=== PATIENT | male | born 1965 | race Caucasian/White ===

== ENCOUNTER 2016-06-22 17:50 | Inpatient (IN) | payer MEDICARE, BC ==
--- NOTE | 2016-06-22 19:22 | ED Physician Chart ---
Chief Complaint/HPI - Patient Information Date Seen:: 06/22/16 Time Seen:: 19:17 Chief Complaint:: cellulitis History of Present Illness:: THIS IS A LIVER AND RENAL FAILURE OBESE 51 YR OLD MALE SENT HERE FOR EVALUATION AND TREATMENT. HE IS MORBIDLY OBESE WITH SEVERE REDNESS AND SWELLING OF BOTH LOWER EXTREMITIES. HE IS ALSO A DIALYSIS PATIENT WITH A HISTORY OF HEP C, LIVER DISEASE AND SLEEP APNEA. Allergies:: Allergies Allergy/AdvReac Type Severity Reaction Status Date / Time ADHESIVE TAPE Allergy Uncoded 06/22/16 19:06 Historian:: Patient, Medical Records Review:: Nurse's Note Reviewed Review of Systems - Review of Systems General/Constitutional: No fever, No chills, No weight loss, No weakness, No diaphoresis, Edema, No loss of appetite, Other (OBESE) Skin: Skin lesions (CELLULITIS), No rash, No bruising Head: No headache, No light-headedness Eyes: No loss of vision, No pain, No diplopia ENT: No earache, No nasal drainage, No sore throat, No tinnitus Neck: No neck pain, No swelling, No thyromegaly, No stiffness, No mass noted Cardio Vascular: No chest pain, No palpitations, PND, orthopnea, edema Pulmonary: No SOB, No cough, No sputum, No wheezing GI: No nausea, No vomiting, No diarrhea, Pain, No melena, No hematochezia, No constipation, No hematemesis G/U: No dysuria, No frequency, No hematuria Musculoskeletal: Bone or joint pain, Back pain, No muscle pain Endocrine: No polyuria, No polydipsia Psychiatric: No prior psych history, No depression, No anxiety, No suicidal ideation Hematopoietic: No bruising, No lymphadenopathy Allergic/Immuno: No urticaria, No angioedema Neurological: No syncope, No focal symptoms, No weakness, No paresthesia, No headache, No seizure, No dizziness, No confusion, No vertigo Past Medical History - Past Medical History Obtainable: Yes Past Medical History: HTN, CHF, ESRD, Arthritis, Other (OBESITY) Family History: None Social History: Non Smoker, No Alcohol, No Drug Use, Care Facility Surgical History: other ([employer]ACEMENT) Psychiatricy History: Depression Physical Exam - Physical Examination General/Constitutional: Awake, Well-developed, well-nourished, Alert, No distress, GCS 15, Non-toxic appearing, Ambulatory Other Gen/Cons comments:: SEVERELY OBESE AND PALE Head: Atraumatic Eyes: Lids, conjuctiva normal, PERRL, EOMI Skin: Nl inspection, No rash, No skin lesions, No ecchymosis, Well hydrated, No lymphadenopathy ENMT: External ears, nose nl, Nasal exam nl, Lips, teeth, gums nl Neck: Nontender, Full ROM w/o pain, No JVD, No nuchal rigidity, No bruit, No mass, No stridor Respiratory: Nl effort/Exclusion, Clear to Auscultation, No Wheeze/Rhonchi/Rales Cardio Vascular: RRR, No murmur, gallop, rubs, NL S1 S2 GI: No tenderness/rebounding/guarding, No organomegaly, No hernia, Normal BS's, No mass/bruits, No McBurney tenderness Other GI comments:: VERY LARGE AND DISTENDED ABDOMEN. : No CVA tenderness Extremities: Full ROM, normal strength in all extremities, Normal digits & nails Other Extremities comments:: BOTH LOWER EXTREMITIES ARE RED WITH FOUR PLUS EDEMA AND WARM WITH TENDERNESS ON TOUCH. Neuro/Psych: Alert/oriented, DTR's symmetric, Normal sensory exam, Normal motor strength, Judgement/insight normal, Mood normal, Normal gait, No focal deficits Misc: normal gait, Normal back, No paraspinal tenderness Labs/Radiology/EKG Results - Lab Results Results: Abnormal Lab Results 06/22/16 06/22/16 06/22/16 19:33 19:33 19:33 WBC 4.7 L RBC 2.60 L Hgb 7.4 L* Hct 22.3 L* MCV 85.7 MCH 28.5 MCHC Differential 33.2 RDW 16.1 Plt Count 124 L MPV 8.9 PT 11.9 H INR 1.19 PTT (Actin FS) 31.5 Sodium 131 L Potassium 3.5 Chloride 98 Carbon Dioxide 22.6 Anion Gap 13.9 BUN 54 H Creatinine 3.3 H Est GFR ( Amer) 25.8 Est GFR (Non-Af Amer) 21.3 BUN/Creatinine Ratio 16.4 Glucose 107 H Calcium 10.0 Total Bilirubin 1.1 H AST 32 ALT 14 Alkaline Phosphatase 28 L Troponin I B-Natriuretic Peptide Total Protein 8.6 H Albumin 3.2 L Globulin 5.4 Albumin/Globulin Ratio 0.6 L 06/22/16 06/22/16 19:33 19:33 WBC RBC Hgb Hct MCV MCH MCHC Differential RDW Plt Count MPV PT INR PTT (Actin FS) Sodium Potassium Chloride Carbon Dioxide Anion Gap BUN Creatinine Est GFR ( Amer) Est GFR (Non-Af Amer) BUN/Creatinine Ratio Glucose Calcium Total Bilirubin AST ALT Alkaline Phosphatase Troponin I < 0.01 L B-Natriuretic Peptide 668.0 H Total Protein Albumin Globulin Albumin/Globulin Ratio - Radiology Results Results: chest x-ray = no acute disease seen - EKG Interpretations EKG Time:: 19:45 Rhythm: A FIB SLOW [place]: RIGHT Rate: 91 ED Septic Shock - . Is Septic Shock (SBP<90, OR Lactate>4 mmol\L) present?: No Reassessment (Disposition) - Reassessment Reassessment Condition:: Unchanged - Diagnosis Diagnosis:: SEVERE ANEMIA MORBIDLY OBESE ESRD LIVER FAILURE INFECTION OF BOTH LOWER EXTREMITIES. - Patient Disposition Discharge/Transfer:: Acute Care w/in this hosp Admitting Medical Physician:: Vladimir Valadez Condition at Disposition:: Unchanged
[2016-06-22 19:41] LABS: MEAN CELL VOLUME 85.7 fl (80-99); MEAN CORPUSCULAR HEMOGLOBIN 28.5 pg (26.0-30.0); MEAN CORPUSCULAR HGB CONC 33.2 pg (28.0-36.0); MEAN PLATELET VOLUME 8.9 fl; PLATELET COUNT 124 Th/cmm (150-400); RED CELL DISTRIBUTION WIDTH 16.1 % (11.5-20.0); WHITE BLOOD COUNT 4.7 Th/cmm (4.8-10.8)
[2016-06-22 19:51] LABS: HEMATOCRIT 22.3 % (39.0-49.0); HEMOGLOBIN 7.4 gm/dL (13.2-17.3)
[2016-06-22 19:52] LABS: INR 1.19 (0.5-1.4); PROTHROMBIN TIME (TEST) 11.9 SECONDS (9.5-11.5)
[2016-06-22 19:56] LABS: ALB/GLOB RATIO 0.6 (1.0-1.8); ANION GAP 13.9 (7.0-16.0); BILIRUBIN,TOTAL 1.1 mg/dL (0.3-1.0); BUN/CREATININE RATIO 16.4; CARBON DIOXIDE 22.6 mEq/L (21.0-31.0); CREATININE - SERUM 3.3 mg/dL (0.7-1.3); POTASSIUM SERUM 3.5 mEq/L (3.5-5.1)
[2016-06-22 20:13] LABS: ANISOCYTOSIS 1+; BAND NEUTROPHILE 1 % (0-10); BASOPHIL 4 % (0-3); EOSINOPHIL 10 % (0-5); HYPOCHROMIA 1+; NEUTROPHILS 68 % (40-80); PLATELET ESTIMATE DECREASED PLATELETS (NORMAL); PLATELET MORPHOLOGY NORMAL (NORMAL); TOTAL CELLS COUNTED 100
[2016-06-22 22:20] LABS: BE(B) 2.8 mmol/L (-3.0-3.0); HCO3 25.9 mmol/L (20.0-26.0); pH 7.49 (7.35-7.45)
[2016-06-22 22:21] LABS: ABG SOURCE art; ALLEN TEST P; FIO2 21
--- NOTE | 2016-06-23 06:32 | Consultation ---
Consult Note - Consult Note Service Date: 06/23/16 Consult Note: PHYSICIAN Consultation Note: Date of Admission: 06/22/16 Purpose of Consultation: Cellulitis. Chief Complaint: redness of both legs. History of Present Illness: Patient WAL[facility] with ANEMIA,ESRD, INFECTION BILATERAL LOWER EXTREMITIES. 51 y male with history of cirrhosis, CKD 5 on HD, recent UTI and cellulitis of legs recently discharged from [facility]. He was brought to the ED within 24 hrs for evaluation of redness of the legs. On initial evaluation, he was afebrile and WBC count was 4,700. ID consult was called for further antibiotic management. Allergies Allergy/AdvReac Type Severity Reaction Status Date / Time ADHESIVE TAPE Allergy Uncoded 06/22/16 19:06 Vital Signs Temp 98.4 F 06/23/16 04:00 Pulse 102 06/23/16 04:00 Resp 19 06/23/16 04:00 BP 98/62 06/23/16 04:00 Pulse Ox 98 06/23/16 04:00 Intake & Output 06/22/16 06/22/16 06/23/16 06:59 18:59 06:59 Intake Total 300 Balance 300 Intake: Oral 300 Home Medication Medication Instructions Recorded Type Acetaminophen [Tylenol] 325 mg PO Q6HR PRN 06/23/16 History Apixaban [Eliquis] 5 mg PO BID 06/23/16 History Cholecalciferol (Vit D3) [Vitamin 2,000 iu PO DAILY 06/23/16 History D3] Darbepoetin Bernardino in Polysorbat 0.04 mg SQ QWED 06/23/16 History [Aranesp] Docusate Sodium [Colace] 100 mg PO Q12HR 06/23/16 History Hydrocodone/APAP 10 mg/325 mg 1 tab PO Q8H PRN 06/23/16 History [Almond 10 mg/325 mg] Ipratropium Upson [Atrovent Hfa] 2 puff IH Q2HR PRN 06/23/16 History Lactulose 20 gm PO Q8HR 06/23/16 History Levothyroxine [Synthroid] 0.05 mg PO QDAC 06/23/16 History Morphine Sulfate [Morphine] 3 mg IV Q4HR PRN 06/23/16 History Ondansetron [Zofran ODT] 4 mg PO Q6HR PRN 06/23/16 History Pantoprazole [Protonix] 40 mg PO DAILY 06/23/16 History Vitamin B Complex & Vit C No.3 1 tab PO DAILY 06/23/16 History [Pharmassure Balanced B Complex] Current Medications Generic Name Dose Route Start Last Admin Trade Name Freq PRN Reason Stop Dose Admin Morphine Sulfate 1 mg 06/23/16 04:41 06/23/16 04:52 Morphine IV 08/22/16 04:40 1 mg Q4H PRN Administration SEVERE PAIN Review of Systems: A 12 point ROS was reviewed with the pertinent positive and negatives noted in the HPI. Past Medical History Hx Renal Disease Yes Depression No Anxiety No Social History Smoking Status Never smoker Family Medical History Physical Exam: General: Obese, No Acute Distress HEENT: EOMI Bilaterally, PERRLA Bilaterally, Head is normocephalic, atraumatic on inspection. Oral cavity is moist. Neck: Supple, no JVD. No use of accessory neck muscles. Heart: +S1/S2 Auscultated, RRR, no murmurs/rubs/gallops noted Chest: Clear to Auscultate Bilaterally. Permacath on R upper chest. Abdominal: Soft, Nondistended, Non-tender to palpation x 4 quadrants Extremities: No Edema noted in the lower extremities, Discoloration and mild erythema of the legs. Neurological: Alert and Oriented x3, Cranial Nerves II-XII intact bilaterally, Gait Steady, No Focal Deficits noted. Assessment/Plan: 1. Cellulitis of legs. 2. Lymphedema of legs. 3. CKD 5 on HD. 4. HTN. 5. Anemia of chronic disease. 6. Cirrhosis. 7. Stasis changes in legs. 8. Chronic pain syndrome. Recommendations: Skin care. Abx vanco IV. Signed, Hollis Austin M.D. [id number]
--- NOTE | 2016-06-23 10:42 | Diagnostic Imaging Report ---
Portable chest x-ray HISTORY: Congestive heart failure The heart is enlarged. Elevation of the right hemidiaphragm. No hilar or mediastinal abnormalities. Faint radiodensities noted in the right lower lobe suggesting scarring. A vascular catheter tip is in the region of the superior vena cava near the junction with the right atrium. IMPRESSION: 1. Cardiomegaly 2. Faint linear densities right lower lobe consistent with scarring or subsegmental atelectasis 3. Elevation of the right hemidiaphragm
[2016-06-23 11:48] LABS: RED BLOOD COUNT 2.16 Mil/cmm (4.30-5.70)
[2016-06-23 11:50] LABS: MEAN CELL VOLUME 85.8 fl (80-99); MEAN CORPUSCULAR HEMOGLOBIN 28.6 pg (26.0-30.0); MEAN CORPUSCULAR HGB CONC 33.3 pg (28.0-36.0); PLATELET COUNT 110 Th/cmm (150-400); RED CELL DISTRIBUTION WIDTH 16.2 % (11.5-20.0); WHITE BLOOD COUNT 3.6 Th/cmm (4.8-10.8)
[2016-06-23 12:07] LABS: ALB/GLOB RATIO 0.6 (1.0-1.8); ANION GAP 14.4 (7.0-16.0); BUN/CREATININE RATIO 15.3; CALCIUM SERUM 9.8 mg/dL (8.6-10.3); CARBON DIOXIDE 23.3 mEq/L (21.0-31.0); MAGNESIUM 2.1 mg/dL (1.9-2.7); PHOSPHOROUS 5.1 mg/dL (2.5-5.0); POTASSIUM SERUM 3.7 mEq/L (3.5-5.1)
[2016-06-23 12:51] LABS: HEMATOCRIT 18.6 % (39.0-49.0)
[2016-06-23 12:52] LABS: HEMOGLOBIN 6.2 gm/dL (13.2-17.3)
[2016-06-23 12:55] LABS: BAND NEUTROPHILE 6 % (0-10); BASOPHIL 7 % (0-3); EOSINOPHIL 5 % (0-5); NEUTROPHILS 57 % (40-80); PLATELET MORPHOLOGY NORMAL (NORMAL); TOTAL CELLS COUNTED 100
[2016-06-23 12:56] LABS: ANISOCYTOSIS 1+; PLATELET ESTIMATE ADEQUATE (NORMAL)
[2016-06-23] MEDS: Epoetin Alfa 20000 Units/mL Vial SUBQ SCH (18:38)
[2016-06-23] MEDS ORDERED: Albuterol/Ipratropium Neb 3 ML AERS HHN PRN (20:31)
[2016-06-23] MEDS ORDERED: DARBEPOETIN ALFA IN POLYSORBAT SQ SCH (20:45)
--- NOTE | 2016-06-24 00:21 | History & Physical ---
HISTORY OF PRESENT ILLNESS: This patient is very well known to me from following him myself at [facility]. The patient is know to have history of peripheral vascular disease, history of ESRD, history of anemia, history of bilateral lower extremity, cellulitis, and the patient recently was discharged from [facility], made arrangement for a dialysis, [facility] Apparently, they found out that no arrangements were made. The patient was complaining of severe bilateral lower leg pain and swelling. The patient was sent to [facility] where the ER doctor saw him and felt that the patient has swelling above the legs with cellulitis and even a possible sepsis. He was admitted for a possible sepsis. PHYSICAL EXAMINATION: VITAL SIGNS: Temperature 98.4, pulse of 102, respirations 19, blood pressure on the lower side 98/62. MEDICATIONS: The patient was on multiple mediations. See the reconciliation sheet. The patient is on Eliquis and the patient is on ipratropium, levothyroxine, and several other medications. REVIEW OF SYSTEMS: Essentially, complaining of shortness of breath, complaining of bilateral leg swelling, and bilateral leg edema. Other than that, he is normal. PAST MEDICAL HISTORY: ESRD. FAMILY HISTORY: Unremarkable. PHYSICAL EXAMINATION: GENERAL: The patient is very obese. Still feels short of breath. HEENT: Normal. NECK: Supple. Nontender. LUNGS: Clear. CARDIOVASCULAR: S1 and S2 heard. ADOMEN: Soft. Bowel sounds are heard. 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 EXTREMITIES: Bilateral extremity, bilateral leg swelling with discoloration, mild erythema. DIAGNOSES: 1. Bilateral leg cellulitis. 2. Lymphedema of the legs. 3. History of severe obesity. 4. End-stage renal disease, on hemodialysis. 5. History of hypertension. 6. History of anemia. 7. History of cirrhosis. 8. Chronic stasis changes. 9. Chronic pain syndrome. The patient is being admitted. I will follow the patient. The patient was given antibiotics and I will have Dr. Horne see the patient for Nephrology and I will have Dr. Austin see the patient for ID consult. I will follow the patient. JOB# [id number]
[2016-06-24] MEDS: Levothyroxine 0.05 Mg Tab PO SCH (06:44)
[2016-06-24 07:50] LABS: MEAN CORPUSCULAR HEMOGLOBIN 29.5 pg (26.0-30.0); MEAN CORPUSCULAR HGB CONC 33.9 pg (28.0-36.0); PLATELET COUNT 118 Th/cmm (150-400); RED BLOOD COUNT 2.54 Mil/cmm (4.30-5.70); RED CELL DISTRIBUTION WIDTH 16.7 % (11.5-20.0)
[2016-06-24 08:12] LABS: HEMATOCRIT 22.1 % (39.0-49.0); WHITE BLOOD COUNT 4.7 Th/cmm (4.8-10.8)
[2016-06-24] MEDS ORDERED: [UNRECOGNIZED DRUG - OTHER] PO SCH (09:00)
[2016-06-24] MEDS ORDERED: Non-Formulary Item 1 EA (Apixaban [Eliquis] 5 MG) PO SCH (09:00)
[2016-06-24] MEDS ORDERED: VIT C NO 3 PO SCH (09:00)
[2016-06-24] MEDS ORDERED: VITAMIN B COMPLEX PO SCH (09:00)
[2016-06-24 09:05] LABS: BAND NEUTROPHILE 2 % (0-10); TOTAL CELLS COUNTED 100
[2016-06-24 09:06] LABS: NEUTROPHILS 72 % (40-80); PLATELET ESTIMATE DECREASED PLATELETS (NORMAL)
--- NOTE | 2016-06-24 09:34 | Diagnostic Imaging Report ---
Ultrasound urinary bladder HISTORY: Urinary retention Exam is extremely limited due to patient combativeness lack of cooperation. Limited views of the urinary bladder do not demonstrate significant distention (prevoid volume equals approximately 10 3 mL). No obvious abnormal masses or fluid collections seen in the pelvis. IMPRESSION: 1. Very limited exam 2. No definite evidence of abnormal urinary bladder distention
[2016-06-24] MEDS: Pantoprazole 40 mg EC Tab PO SCH (10:00)
[2016-06-24] MEDS: Vitamin B Complex w/Vitamin C Tab PO SCH (10:00)
--- NOTE | 2016-06-24 12:43 | Consultation ---
ATTENDING PHYSICIAN: Brett Valadez M.D. CRIMINAL JUSTICE TEACHER: Jose C Horne M.D. REASON FOR CONSULTATION: Electrolyte imbalance and fluid management. HISTORY OF PRESENT ILLNESS: This is a 51-year-old male with past medical history of end-stage renal disease on hemodialysis, who came in because of bilateral lower extremity erythema. The patient was admitted at [facility] for long-term acute care of his bilateral lower extremity cellulitis. He received vancomycin. He was also dialyzed accordingly. He was then transported to [facility] Emergency Room for further evaluation of bilateral lower extremity cellulitis. He was admitted for further management of this. His temperature was 98.4 with a white count 4700. PAST MEDICAL HISTORY: 1. End-stage renal disease, on hemodialysis. 2. Morbid obesity. 3. Essential hypertension. 4. Obesity hypoventilation syndrome based on combination of morbid obesity with obstructive sleep anemia. 5. Chronic atrial fibrillation. 6. Hypothyroidism. 7. Anasarca. 8. Chronic venous stasis dermatitis. 9. Lymphedema. MEDICATIONS: He has morphine, vancomycin, and Rocephin. ALLERGIES: ADHESIVE TAPE. SOCIAL HISTORY: No history of alcohol or tobacco use. FAMILY HISTORY: Noncontributory to present illness. REVIEW OF SYSTEMS: CONSTITUTIONAL: The patient did complain of weakness. Appetite had been fair. No fever, no chills. HEENT: No mention of headaches, no dizziness. CARDIORESPIRATORY: He has a history of hypertension, chronic atrial fibrillation. At this point, no shortness of breath, chest pain, palpitations, diaphoresis or cough. GASTROINTESTINAL: No nausea and vomiting, abdominal pain or cramping, hematemesis, melena, hematochezia, no diarrhea. ENDOCRINE: History of hypothyroidism, no diabetes or dyslipidemia. MUSCULOSKELETAL: Multiple joint arthralgias. GENITOURINARY: The patient has a history of kidney failure on hemodialysis. He rarely urinates. If he does, no dysuria or hematuria. HEMATOLOGIC: He has severe anemia. MUSCULOSKELETAL: Multiple joint arthralgias. NEUROPSYCHIATRIC: No syncopal episode or seizure activity. However, he is quite stuporous at the present time. PHYSICAL EXAMINATION: GENERAL: As mentioned, the patient is stuporous, arousable, but falls back to sleep. VITAL SIGNS: His temperature is 97.8 degrees, pulse is 113, blood pressure 107/63. SKIN: Good turgor, warm. He has severe hyperpigmentation distal to both bilateral knees with chronic skin changes. HEENT: Head, normocephalic, atraumatic. Eyes: Unable to assess his extraocular muscles as well as pupils because the patient was not cooperative. Nose: Midline nasal septum. Mouth: Dry mucosa with poor dentition. NECK: Supple. No adenopathy, no thyromegaly, no bruits. Trachea palpated in the midline. CHEST AND CARDIOVASCULAR: Distant heart sounds, S1, S2. No rub, murmur nor gallop appreciated. Point of maximal impulse, unable to assess due to patient's signs. LUNGS: Equal expansion. No use of accessory muscles. No supraclavicular retractions, scattered rhonchi, but no rales nor wheezes appreciated. ABDOMEN: Obese, soft, positive for bowel sounds. No bruits either diastolic or systolic. RECTAL: Unable to perform due to patient's size and being uncooperative. GENITOURINARY: Normal appearing male genitalia. MUSCULOSKELETAL: No effusions present in his joints, but unable to assess his range of motion. EXTREMITIES: He has +3 bipedal edema with as mentioned severe hyperpigmentation distal to both knees and also chronic changes of the skin. NEUROLOGIC: The patient is stuporous at the present time, so he was not able to follow my neuro commands and unable to pursue further my neuro exam. LABORATORY DATA: Sodium is 132, potassium 3.7, chloride 98, bicarbonate 23, BUN 61, creatinine 4, glucose 92, calcium 9.8, phosphorus 5.1, magnesium 2.1. Albumin 2.9. Troponin less than 0.01. White count 3.6, hemoglobin 6.2, hematocrit 18.6, polys ____, platelets 110. IMPRESSION: 1. End-stage renal disease, on hemodialysis. 2. Persistent cellulitis involving bilateral lower extremities. 3. Acute on chronic anemia, possible gastrointestinal bleed. 4. Morbid obesity. 5. Essential hypertension with chronic kidney disease. 6. Obesity hypoventilation syndrome. 7. Chronic atrial fibrillation. 8. Hypothyroidism. 9. Anasarca. 10. Chronic venous stasis dermatitis. 11. Lymphedema. 12. Severe malnutrition. PLAN: 1. Hemodialysis today, transfuse 2 units. 2. Stool for occult blood. 3. Restart the patient on Epogen. 4. Follow up cultures. Thank you, Dr. Valadez for this consult. We will follow the patient closely with you. JOB# [id number]
--- NOTE | 2016-06-24 18:26 | General Progress Note ---
Subjective - Review of Systems Service Date: 06/24/16 Objective - Results Result Diagrams: 06/24/16 07:30 06/23/16 11:25 Recent Labs: Laboratory Last Values WBC 4.7 Th/cmm (4.8-10.8) L D 06/24/16 07:30 RBC 2.54 Mil/cmm (4.30-5.70) L 06/24/16 07:30 Hgb 7.5 gm/dL (13.2-17.3) L* D 06/24/16 07:30 Hct 22.1 % (39.0-49.0) L* D 06/24/16 07:30 MCV 87.0 fl (80-99) 06/24/16 07:30 MCH 29.5 pg (26.0-30.0) 06/24/16 07:30 MCHC Differential 33.9 pg (28.0-36.0) 06/24/16 07:30 RDW 16.7 % (11.5-20.0) 06/24/16 07:30 Plt Count 118 Th/cmm (150-400) L 06/24/16 07:30 MPV 9.0 fl 06/24/16 07:30 Band Neutrophils % 2 % (0-10) 06/24/16 07:30 Neutrophils (Manual) 72 % (40-80) 06/24/16 07:30 Lymphocytes 13 % (20-50) L 06/24/16 07:30 Monocytes 13 % (2-10) H 06/24/16 07:30 Eosinophils 5 % (0-5) 06/23/16 11:25 Basophils 7 % (0-3) H 06/23/16 11:25 Hypochromia 1+ 06/22/16 19:33 Platelet Estimate DECREASED PLATELETS (NORMAL) 06/24/16 07:30 Platelet Morphology NORMAL (NORMAL) 06/23/16 11:25 Anisocytosis 1+ 06/23/16 11:25 RBC Morph Micro Appear ABNORMAL (NORMAL) 06/22/16 19:33 PT 11.9 SECONDS (9.5-11.5) H 06/22/16 19:33 INR 1.19 (0.5-1.4) 06/22/16 19:33 PTT (Actin FS) 31.5 SECONDS (26.0-38.0) 06/22/16 19:33 Specimen Source art 06/22/16 20:03 Sample Site Right Radial 06/22/16 20:03 pH 7.49 (7.35-7.45) H 06/22/16 20:03 pCO2 34.0 mmHg (35.0-45.0) L 06/22/16 20:03 pO2 97.0 mmHg (80.0-100.0) 06/22/16 20:03 HCO3 25.9 mmol/L (20.0-26.0) 06/22/16 20:03 Base Excess 2.8 mmol/L (-3.0-3.0) 06/22/16 20:03 O2 Saturation 98.0 % (92.0-100.0) 06/22/16 20:03 Estuardo Test P 06/22/16 20:03 Vent Rate NA 06/22/16 20:03 Inspired O2 21 06/22/16 20:03 Tidal Volume NA 06/22/16 20:03 PEEP NA 06/22/16 20:03 Pressure (ins/psv/peep) NA 06/22/16 20:03 Critical Value RPINEIRA 06/22/16 20:03 Sodium 132 mEq/L (136-145) L 06/23/16 11:25 Potassium 3.7 mEq/L (3.5-5.1) 06/23/16 11:25 Chloride 98 mEq/L (98-107) 06/23/16 11:25 Carbon Dioxide 23.3 mEq/L (21.0-31.0) 06/23/16 11:25 Anion Gap 14.4 (7.0-16.0) 06/23/16 11:25 BUN 61 mg/dL (7-25) H 06/23/16 11:25 Creatinine 4.0 mg/dL (0.7-1.3) H 06/23/16 11:25 Est GFR ( Amer) 20.6 ml/min (>90) 06/23/16 11:25 Est GFR (Non-Af Amer) 17.0 ml/min 06/23/16 11:25 BUN/Creatinine Ratio 15.3 06/23/16 11:25 Glucose 92 mg/dL (70-105) 06/23/16 11:25 Calcium 9.8 mg/dL (8.6-10.3) 06/23/16 11:25 Phosphorus 5.1 mg/dL (2.5-5.0) H 06/23/16 11:25 Magnesium 2.1 mg/dL (1.9-2.7) 06/23/16 11:25 Total Bilirubin 1.0 mg/dL (0.3-1.0) 06/23/16 11:25 AST 31 U/L (13-39) 06/23/16 11:25 ALT 13 U/L (7-52) 06/23/16 11:25 Alkaline Phosphatase 24 U/L (34-104) L 06/23/16 11:25 Troponin I < 0.01 ng/mL (0.01-0.05) L 06/22/16 19:33 B-Natriuretic Peptide 668.0 pg/mL (5.0-100.0) H 06/22/16 19:33 Total Protein 7.7 gm/dL (6.0-8.3) 06/23/16 11:25 Albumin 2.9 gm/dL (4.2-5.5) L 06/23/16 11:25 Globulin 4.8 gm/dL 06/23/16 11:25 Albumin/Globulin Ratio 0.6 (1.0-1.8) L 06/23/16 11:25 Stool Occult Blood POSITIVE (NEGATIVE) 06/24/16 16:00 Random Vancomycin 12.4 ug/mL (5.0-40.0) 06/24/16 07:30 RPR NONREACTIVE (NONREACTIVE) 06/22/16 19:33 Blood Type A POSITIVE 06/22/16 20:41 Antibody Screen NEGATIVE 06/22/16 20:41 Crossmatch See Detail 06/22/16 20:41 - Physical Exam Vitals and I&O: Vital Signs Temp 98.6 F 06/24/16 11:36 Pulse 95 06/24/16 11:36 Resp 18 06/24/16 11:36 BP 105/66 06/24/16 11:36 Pulse Ox 93 06/24/16 11:36 Intake & Output 06/23/16 06/24/16 06/24/16 18:59 06:59 18:59 Intake Total 450 100 500 Balance 450 100 500 Intake: Intake, IV Amount 250 Vancomycin HCl 2 gm In 250 Sodium Chloride 0.9% 250 ml @ 165 mls/hr IV 1000 [facility] Rx#:[id number] Oral 200 100 500 Other: # Voids 0 0 2 # Bowel Movements 1 1 3 Stool Characteristics Soft Soft Black Black Active Medications: Current Medications Acetaminophen (Tylenol) 325 mg PO Q6HR PRN PRN Reason: Mild Pain or Fever >101 Stop: 08/22/16 20:30 Acetaminophen/Hydrocodone Bitart ([place] 10 Mg/325 Mg) 1 tab PO Q8H PRN PRN Reason: Pain (Moderate) Stop: 08/22/16 20:30 Cholecalciferol (Vitamin D3) 2,000 iu PO DAILY [facility] Stop: 08/23/16 08:59 Last Admin: 06/24/16 10:00 Dose: Not Given Docusate Sodium (Colace) 100 mg PO BID [facility] Stop: 08/22/16 16:59 Last Admin: 06/24/16 17:41 Dose: Not Given Epoetin Bernardino (Epogen) 10,000 units SUBQ TuThSa [facility] Stop: 08/22/16 14:29 Last Admin: 06/23/16 18:38 Dose: 10,000 units Levothyroxine Sodium (Synthroid) 0.05 mg PO QDAC [facility] Stop: 08/23/16 07:29 Last Admin: 06/24/16 06:44 Dose: Not Given Miscellaneous (Vancomycin Iv Per Pharmacy) 1 ea MC PRN PRN PRN Reason: PROTOCOL Stop: 08/22/16 06:31 Miscellaneous (Ipratropium Hecker [Atrovent Hfa]) 2 puff IH Q2HR PRN PRN Reason: Shortness of Breath or Wheeze Morphine Sulfate (Morphine) 1 mg IV Q4H PRN PRN Reason: SEVERE PAIN Stop: 08/22/16 04:40 Last Admin: 06/23/16 09:50 Dose: 1 mg Ondansetron HCl (Zofran Odt) 4 mg PO Q6HR PRN PRN Reason: Nausea / Vomiting Stop: 08/22/16 20:30 Pantoprazole Sodium (Protonix) 40 mg PO DAILY [facility] Stop: 08/23/16 08:59 Last Admin: 06/24/16 10:00 Dose: Not Given Vitamin B Complex/Vit C/Folic Acid (Vitamin B Complex W/Vitamin C) 1 tab PO DAILY [facility] Stop: 08/23/16 08:59 Last Admin: 06/24/16 10:00 Dose: Not Given Assessment/Plan - Problem List Patient Problems: All Active Problems MEDICAL EVALUATION PER DR FRY (Acute)
--- NOTE | 2016-06-24 19:03 | Admit Criteria Form ---
Admit Criteria Forms - Admit Criteria Diagnosis: CELLULITIS Clinical Indications for Admission to Inpatient Care (Place 'X' for any and all applicable criteria): Admission is indicated for ANY ONE of the following(1)(2)(3)(4)(5): [ ]I. Limb-threatening infection [X]II. High-risk comorbid condition as indicated by ANY ONE of the following: [ ]a) Uncontrolled diabetes (eg, HbA1c greater than 10% (0.1)) [X ]b) Cirrhosis [ ]c) Neutropenia [ ]d) Asplenia [ ]e) Immunosuppression [ ]f) Symptomatic heart failure [ ]III. Failure of outpatient therapy as indicated by ALL of the following: [ ]a) Progression or no improvement after adequate trial (minimum of 48 hours, with longer period for stable lower extremity infection) [ ]b) Adequate antibiotic regimen as indicated by use of ANY ONE of the following: [ ]i) First-generation cephalosporin (e.g., cephalexin) [ ]ii) Antistaphylococcal penicillin (e.g., dicloxacillin) [ ]iii) Penicillin-allergic patient regimen (clindamycin, extended-spectrum fluoroquinolone, or doxycycline) [ ]iv) Resistant organism (eg, methicillin-resistant Staphylococcus aureus) regimen (6) [ ]c) Outpatient intravenous therapy regimen is not appropriate due to ANY ONE of the following. (7)(8)(9)(10): [ ]i) It was tried and was not successful (eg, progression of infection). [ ]ii) It is not available or cannot be arranged in a clinically appropriate time frame (e.g., the next day). [ ]iii) Clinical presentation (eg, acuity of infection, rapidity of progression, confirmed or suspected bacteremia) is judged to require ALL of the following: [ ]1) Immediate initiation of intravenous therapy ( eg, cannot wait for next day) [ ]2) Intensity of patient monitoring and observation (eg, vital sign measurement, checks for infection progression) that cannot be provided at other than inpatient level of care [ ]IV. Mental status changes [ ]V. Bacteremia [ ]. Hemodynamic instability [ ]VII. Suspected necrotizing soft tissue infection (e.g., gas in tissue)(11)( 12) [ ]VIII. Orbital infection (13)(14) [ ]IX. Associated surgical procedure (e.g., abscess drainage, debridement) not amenable to outpatient, emergency department, or observation care [ ]X. Cutaneous gangrene [ ]XI. High fever (temperature greater than 39.5 degrees C (103.1 degrees F) (oral)) not responsive to outpatient, emergency department, or observation care therapy [ ]XIII. Inpatient admission required rather than observation care (Also use Cellulitis: Observation Care as appropriate) because of ANY ONE of the following : [ ]a) Periorbital or perineal infection that is severe or worsening [ ]b) Severe pain requiring acute inpatient management [ ]c) IV fluid to replace significant ongoing (e.g., for over 24 hours) losses (greater than 3L/m2 per day) [ ]d) Compartment syndrome monitoring (17) [ ]e) Strict or protective (eg, laminar flow) isolation [ ]f) Urgent debridement or skin grafting [ ]g) Bone or joint debridement [ ]h) Immediate inpatient surgery [ ]i) Other condition, treatment or monitoring requiring inpatient admission Extended stay beyond goal length of stay may be needed for (1)(18): [ ]a) Necrotizing soft tissue infection or fasciitis [ ]b) Gram-negative infection [ ]c) Methicillin-resistant Staphylococcal aureus (MRSA) infection [ ]d) Peripheral venous insufficiency with cellulitis [ ]e) Extensive edema [ ]f) Sepsis or continued Hemodynamic instability [ ]g) Continued high fever or mental status change [ ]h) Bacteremia [ ]i) Active serious comorbid conditions ( eg, heart failure, renal insufficiency) The original [facility] [employer] content created by [employer] has been revised. The portions of the content which have been revised are identified through the use of italic text or in bold, and [facility] has neither reviewed nor approved the modified material. All other unmodified content is copyright [facility] Please see references footnoted in the original [facility] [employer] edition 2016 Admit Criteria Met?: Yes
[2016-06-25] MEDS: Levothyroxine 0.05 Mg Tab PO SCH (07:45)
--- NOTE | 2016-06-25 09:03 | General Progress Note ---
Objective - Results Result Diagrams: 06/24/16 07:30 06/23/16 11:25 Recent Labs: Laboratory Last Values WBC 4.7 Th/cmm (4.8-10.8) L D 06/24/16 07:30 RBC 2.54 Mil/cmm (4.30-5.70) L 06/24/16 07:30 Hgb 7.5 gm/dL (13.2-17.3) L* D 06/24/16 07:30 Hct 22.1 % (39.0-49.0) L* D 06/24/16 07:30 MCV 87.0 fl (80-99) 06/24/16 07:30 MCH 29.5 pg (26.0-30.0) 06/24/16 07:30 MCHC Differential 33.9 pg (28.0-36.0) 06/24/16 07:30 RDW 16.7 % (11.5-20.0) 06/24/16 07:30 Plt Count 118 Th/cmm (150-400) L 06/24/16 07:30 MPV 9.0 fl 06/24/16 07:30 Band Neutrophils % 2 % (0-10) 06/24/16 07:30 Neutrophils (Manual) 72 % (40-80) 06/24/16 07:30 Lymphocytes 13 % (20-50) L 06/24/16 07:30 Monocytes 13 % (2-10) H 06/24/16 07:30 Eosinophils 5 % (0-5) 06/23/16 11:25 Basophils 7 % (0-3) H 06/23/16 11:25 Hypochromia 1+ 06/22/16 19:33 Platelet Estimate DECREASED PLATELETS (NORMAL) 06/24/16 07:30 Platelet Morphology NORMAL (NORMAL) 06/23/16 11:25 Anisocytosis 1+ 06/23/16 11:25 RBC Morph Micro Appear ABNORMAL (NORMAL) 06/22/16 19:33 PT 11.9 SECONDS (9.5-11.5) H 06/22/16 19:33 INR 1.19 (0.5-1.4) 06/22/16 19:33 PTT (Actin FS) 31.5 SECONDS (26.0-38.0) 06/22/16 19:33 Specimen Source art 06/22/16 20:03 Sample Site Right Radial 06/22/16 20:03 pH 7.49 (7.35-7.45) H 06/22/16 20:03 pCO2 34.0 mmHg (35.0-45.0) L 06/22/16 20:03 pO2 97.0 mmHg (80.0-100.0) 06/22/16 20:03 HCO3 25.9 mmol/L (20.0-26.0) 06/22/16 20:03 Base Excess 2.8 mmol/L (-3.0-3.0) 06/22/16 20:03 O2 Saturation 98.0 % (92.0-100.0) 06/22/16 20:03 Estuardo Test P 06/22/16 20:03 Vent Rate NA 06/22/16 20:03 Inspired O2 21 06/22/16 20:03 Tidal Volume NA 06/22/16 20:03 PEEP NA 06/22/16 20:03 Pressure (ins/psv/peep) NA 06/22/16 20:03 Critical Value RPINEIRA 06/22/16 20:03 Sodium 132 mEq/L (136-145) L 06/23/16 11:25 Potassium 3.7 mEq/L (3.5-5.1) 06/23/16 11:25 Chloride 98 mEq/L (98-107) 06/23/16 11:25 Carbon Dioxide 23.3 mEq/L (21.0-31.0) 06/23/16 11:25 Anion Gap 14.4 (7.0-16.0) 06/23/16 11:25 BUN 61 mg/dL (7-25) H 06/23/16 11:25 Creatinine 4.0 mg/dL (0.7-1.3) H 06/23/16 11:25 Est GFR ( Amer) 20.6 ml/min (>90) 06/23/16 11:25 Est GFR (Non-Af Amer) 17.0 ml/min 06/23/16 11:25 BUN/Creatinine Ratio 15.3 06/23/16 11:25 Glucose 92 mg/dL (70-105) 06/23/16 11:25 Calcium 9.8 mg/dL (8.6-10.3) 06/23/16 11:25 Phosphorus 5.1 mg/dL (2.5-5.0) H 06/23/16 11:25 Magnesium 2.1 mg/dL (1.9-2.7) 06/23/16 11:25 Total Bilirubin 1.0 mg/dL (0.3-1.0) 06/23/16 11:25 AST 31 U/L (13-39) 06/23/16 11:25 ALT 13 U/L (7-52) 06/23/16 11:25 Alkaline Phosphatase 24 U/L (34-104) L 06/23/16 11:25 Troponin I < 0.01 ng/mL (0.01-0.05) L 06/22/16 19:33 B-Natriuretic Peptide 668.0 pg/mL (5.0-100.0) H 06/22/16 19:33 Total Protein 7.7 gm/dL (6.0-8.3) 06/23/16 11:25 Albumin 2.9 gm/dL (4.2-5.5) L 06/23/16 11:25 Globulin 4.8 gm/dL 06/23/16 11:25 Albumin/Globulin Ratio 0.6 (1.0-1.8) L 06/23/16 11:25 Stool Occult Blood POSITIVE (NEGATIVE) 06/24/16 16:00 Random Vancomycin 12.4 ug/mL (5.0-40.0) 06/24/16 07:30 RPR NONREACTIVE (NONREACTIVE) 06/22/16 19:33 Blood Type A POSITIVE 06/22/16 20:41 Antibody Screen NEGATIVE 06/22/16 20:41 Crossmatch See Detail 06/22/16 20:41 - Physical Exam Vitals and I&O: Vital Signs Temp 98.4 F 06/25/16 00:00 Pulse 99 06/25/16 00:00 Resp 20 06/25/16 00:00 BP 105/66 06/24/16 11:36 Pulse Ox 99 06/25/16 00:00 Intake & Output 06/24/16 06/25/16 06/25/16 18:59 06:59 18:59 Intake Total 500 300 Balance 500 300 Intake: Oral 500 300 Other: # Voids 2 2 # Bowel Movements 3 Stool Characteristics Soft Soft Black Black Active Medications: Current Medications Acetaminophen (Tylenol) 325 mg PO Q6HR PRN PRN Reason: Mild Pain or Fever >101 Stop: 08/22/16 20:30 Acetaminophen/Hydrocodone Bitart ([place] 10 Mg/325 Mg) 1 tab PO Q8H PRN PRN Reason: Pain (Moderate) Stop: 08/22/16 20:30 Albuterol/Ipratropium (Duoneb Neb) 3 ml HHN Q2HR PRN PRN Reason: Shortness of Breath or Wheeze Cholecalciferol (Vitamin D3) 2,000 iu PO DAILY [facility] Stop: 08/23/16 08:59 Last Admin: 06/24/16 10:00 Dose: Not Given Docusate Sodium (Colace) 100 mg PO BID [facility] Stop: 08/22/16 16:59 Last Admin: 06/24/16 17:41 Dose: Not Given Epoetin Bernardino (Epogen) 10,000 units SUBQ TuThSa [facility] Stop: 08/22/16 14:29 Last Admin: 06/23/16 18:38 Dose: 10,000 units Vancomycin HCl 2 gm/ Sodium (Chloride) 500 mls @ 250 mls/hr IV ONCE ONE Stop: 06/25/16 11:59 Levothyroxine Sodium (Synthroid) 0.05 mg PO QDAC [facility] Stop: 08/23/16 07:29 Last Admin: 06/25/16 07:45 Dose: Not Given Miscellaneous (Vancomycin Iv Per Pharmacy) 1 ea MC PRN PRN PRN Reason: PROTOCOL Stop: 08/22/16 06:31 Morphine Sulfate (Morphine) 1 mg IV Q4H PRN PRN Reason: SEVERE PAIN Stop: 08/22/16 04:40 Last Admin: 06/23/16 09:50 Dose: 1 mg Ondansetron HCl (Zofran Odt) 4 mg PO Q6HR PRN PRN Reason: Nausea / Vomiting Stop: 08/22/16 20:30 Pantoprazole Sodium (Protonix) 40 mg PO DAILY [facility] Stop: 08/23/16 08:59 Last Admin: 06/24/16 10:00 Dose: Not Given Vitamin B Complex/Vit C/Folic Acid (Vitamin B Complex W/Vitamin C) 1 tab PO DAILY [facility] Stop: 08/23/16 08:59 Last Admin: 06/24/16 10:00 Dose: Not Given Assessment/Plan - Problem List Patient Problems: All Active Problems MEDICAL EVALUATION PER DR FRY (Acute)
--- NOTE | 2016-06-25 09:42 | Consultation ---
REFERRING PHYSICIAN: Ozzie Woodall M.D. REASON FOR CONSULTATION: Infected Perm-A-Cath. Thank you for referring this patient to me. HISTORY OF PRESENT ILLNESS: This is a 51-year-old male admitted because of persistent cellulitis of both lower extremities. Additionally, it was noted that he has been having some purulent drainage coming from the exit site of Perm-A-Cath. He has additional comorbidities including chronic atrial fibrillation, anasarca, venostasis, malnutrition, functional quadriplegia, morbid obesity and probably sleep apnea. The patient has been on hemodialysis. LABORATORY STUDIES: WBC was 4700, hemoglobin was 7.4, platelet count is low at 110,000. The BUN and creatinine are high at 54 and 3.3 respectively and potassium is 3.5. PHYSICAL EXAMINATION: Extremely difficult as the patient refuses to wake up. He kept snoring and falling back sleep. He is extremely obese and the lower extremity cellulitis noted. There appears to be an infected Perm-A-Cath in the right subclavian location. PLAN: We will try and move the Perm-A-Cath under sedation or heavy anesthesia and replace that with Anton catheter. JOB# [id number]
[2016-06-25 09:45] LABS: MEAN CELL VOLUME 86.6 fl (80-99); MEAN CORPUSCULAR HEMOGLOBIN 29.1 pg (26.0-30.0); MEAN CORPUSCULAR HGB CONC 33.5 pg (28.0-36.0); MEAN PLATELET VOLUME 9.7 fl; PLATELET COUNT 117 Th/cmm (150-400); RED BLOOD COUNT 2.37 Mil/cmm (4.30-5.70); WHITE BLOOD COUNT 4.6 Th/cmm (4.8-10.8)
[2016-06-25 09:59] LABS: BUN/CREATININE RATIO 16.5; CALCIUM SERUM 10.2 mg/dL (8.6-10.3); CARBON DIOXIDE 21.9 mEq/L (21.0-31.0); CREATININE - SERUM 3.7 mg/dL (0.7-1.3); HEMATOCRIT 20.6 % (39.0-49.0); HEMOGLOBIN 6.9 gm/dL (13.2-17.3); POTASSIUM SERUM 3.9 mEq/L (3.5-5.1)
[2016-06-25] MEDS ORDERED: Vancomycin HCl 1.75 GM in Sodium Chloride 0.9% 500 ML IV SCH (10:00)
[2016-06-25] MEDS: Pantoprazole 40 mg EC Tab PO SCH (10:16)
[2016-06-25] MEDS: Vitamin B Complex w/Vitamin C Tab PO SCH (10:16)
[2016-06-25 10:37] LABS: ANISOCYTOSIS 1+; BAND NEUTROPHILE 2 % (0-10); BASOPHIL 1 % (0-3); EOSINOPHIL 8 % (0-5); NEUTROPHILS 63 % (40-80); PLATELET ESTIMATE DECREASED PLATELETS (NORMAL); PLATELET MORPHOLOGY NORMAL (NORMAL); TOTAL CELLS COUNTED 100
--- NOTE | 2016-06-25 12:51 | General Progress Note ---
Subjective - Review of Systems Service Date: 06/25/16 Subjective: alert but confused, pulled out right perma cath Objective - Results Result Diagrams: 06/25/16 08:30 06/25/16 08:30 Recent Labs: Laboratory Last Values WBC 4.6 Th/cmm (4.8-10.8) L 06/25/16 08:30 RBC 2.37 Mil/cmm (4.30-5.70) L 06/25/16 08:30 Hgb 6.9 gm/dL (13.2-17.3) L* 06/25/16 08:30 Hct 20.6 % (39.0-49.0) L* 06/25/16 08:30 MCV 86.6 fl (80-99) 06/25/16 08:30 MCH 29.1 pg (26.0-30.0) 06/25/16 08:30 MCHC Differential 33.5 pg (28.0-36.0) 06/25/16 08:30 RDW 17.0 % (11.5-20.0) 06/25/16 08:30 Plt Count 117 Th/cmm (150-400) L 06/25/16 08:30 MPV 9.7 fl 06/25/16 08:30 Band Neutrophils % 2 % (0-10) 06/25/16 08:30 Neutrophils (Manual) 63 % (40-80) 06/25/16 08:30 Lymphocytes 18 % (20-50) L 06/25/16 08:30 Monocytes 8 % (2-10) 06/25/16 08:30 Eosinophils 8 % (0-5) H 06/25/16 08:30 Basophils 1 % (0-3) 06/25/16 08:30 Hypochromia 1+ 06/22/16 19:33 Platelet Estimate DECREASED PLATELETS (NORMAL) 06/25/16 08:30 Platelet Morphology NORMAL (NORMAL) 06/25/16 08:30 Anisocytosis 1+ 06/25/16 08:30 RBC Morph Micro Appear ABNORMAL (NORMAL) 06/25/16 08:30 PT 11.9 SECONDS (9.5-11.5) H 06/22/16 19:33 INR 1.19 (0.5-1.4) 06/22/16 19:33 PTT (Actin FS) 31.5 SECONDS (26.0-38.0) 06/22/16 19:33 Specimen Source art 06/22/16 20:03 Sample Site Right Radial 06/22/16 20:03 pH 7.49 (7.35-7.45) H 06/22/16 20:03 pCO2 34.0 mmHg (35.0-45.0) L 06/22/16 20:03 pO2 97.0 mmHg (80.0-100.0) 06/22/16 20:03 HCO3 25.9 mmol/L (20.0-26.0) 06/22/16 20:03 Base Excess 2.8 mmol/L (-3.0-3.0) 06/22/16 20:03 O2 Saturation 98.0 % (92.0-100.0) 06/22/16 20:03 Estuardo Test P 06/22/16 20:03 Vent Rate NA 06/22/16 20:03 Inspired O2 21 06/22/16 20:03 Tidal Volume NA 06/22/16 20:03 PEEP NA 06/22/16 20:03 Pressure (ins/psv/peep) NA 06/22/16 20:03 Critical Value RPINEIRA 06/22/16 20:03 Sodium 139 mEq/L (136-145) 06/25/16 08:30 Potassium 3.9 mEq/L (3.5-5.1) 06/25/16 08:30 Chloride 99 mEq/L (98-107) 06/25/16 08:30 Carbon Dioxide 21.9 mEq/L (21.0-31.0) 06/25/16 08:30 Anion Gap 22.0 (7.0-16.0) H 06/25/16 08:30 BUN 61 mg/dL (7-25) H 06/25/16 08:30 Creatinine 3.7 mg/dL (0.7-1.3) H 06/25/16 08:30 Est GFR ( Amer) 22.6 ml/min (>90) 06/25/16 08:30 Est GFR (Non-Af Amer) 18.7 ml/min 06/25/16 08:30 BUN/Creatinine Ratio 16.5 06/25/16 08:30 Glucose 88 mg/dL (70-105) 06/25/16 08:30 Calcium 10.2 mg/dL (8.6-10.3) 06/25/16 08:30 Phosphorus 5.1 mg/dL (2.5-5.0) H 06/23/16 11:25 Magnesium 2.1 mg/dL (1.9-2.7) 06/23/16 11:25 Total Bilirubin 1.0 mg/dL (0.3-1.0) 06/23/16 11:25 AST 31 U/L (13-39) 06/23/16 11:25 ALT 13 U/L (7-52) 06/23/16 11:25 Alkaline Phosphatase 24 U/L (34-104) L 06/23/16 11:25 Troponin I < 0.01 ng/mL (0.01-0.05) L 06/22/16 19:33 B-Natriuretic Peptide 668.0 pg/mL (5.0-100.0) H 06/22/16 19:33 Total Protein 7.7 gm/dL (6.0-8.3) 06/23/16 11:25 Albumin 2.9 gm/dL (4.2-5.5) L 06/23/16 11:25 Globulin 4.8 gm/dL 06/23/16 11:25 Albumin/Globulin Ratio 0.6 (1.0-1.8) L 06/23/16 11:25 Stool Occult Blood POSITIVE (NEGATIVE) 06/24/16 16:00 Random Vancomycin 22.1 ug/mL (5.0-40.0) 06/25/16 08:30 RPR NONREACTIVE (NONREACTIVE) 06/22/16 19:33 Blood Type A POSITIVE 06/22/16 20:41 Antibody Screen NEGATIVE 06/22/16 20:41 Crossmatch See Detail 06/22/16 20:41 - Physical Exam Vitals and I&O: Vital Signs Temp 98.4 F 06/25/16 00:00 Pulse 99 06/25/16 00:00 Resp 20 06/25/16 00:00 BP 105/66 06/24/16 11:36 Pulse Ox 99 06/25/16 00:00 Intake & Output 06/24/16 06/25/16 06/25/16 18:59 06:59 18:59 Intake Total 500 300 Balance 500 300 Intake: Oral 500 300 Other: # Voids 2 2 # Bowel Movements 3 Stool Characteristics Soft Soft Black Black Active Medications: Current Medications Acetaminophen (Tylenol) 325 mg PO Q6HR PRN PRN Reason: Mild Pain or Fever >101 Stop: 08/22/16 20:30 Acetaminophen/Hydrocodone Bitart ([place] 10 Mg/325 Mg) 1 tab PO Q8H PRN PRN Reason: Pain (Moderate) Stop: 08/22/16 20:30 Albuterol/Ipratropium (Duoneb Neb) 3 ml HHN Q2HR PRN PRN Reason: Shortness of Breath or Wheeze Cholecalciferol (Vitamin D3) 2,000 iu PO DAILY [facility] Stop: 08/23/16 08:59 Last Admin: 06/25/16 10:15 Dose: Not Given Docusate Sodium (Colace) 100 mg PO BID [facility] Stop: 08/22/16 16:59 Last Admin: 06/25/16 10:15 Dose: Not Given Epoetin Bernardino (Epogen) 10,000 units SUBQ TuThSa [facility] Stop: 08/22/16 14:29 Last Admin: 06/23/16 18:38 Dose: 10,000 units Vancomycin HCl 2 gm/ Sodium (Chloride) 500 mls @ 250 mls/hr IV ONCE ONE Stop: 06/25/16 19:59 Levothyroxine Sodium (Synthroid) 0.05 mg PO QDAC [facility] Stop: 08/23/16 07:29 Last Admin: 06/25/16 07:45 Dose: Not Given Miscellaneous (Vancomycin Iv Per Pharmacy) 1 ea MC PRN PRN PRN Reason: PROTOCOL Stop: 08/22/16 06:31 Morphine Sulfate (Morphine) 1 mg IV Q4H PRN PRN Reason: SEVERE PAIN Stop: 08/22/16 04:40 Last Admin: 06/23/16 09:50 Dose: 1 mg Ondansetron HCl (Zofran Odt) 4 mg PO Q6HR PRN PRN Reason: Nausea / Vomiting Stop: 08/22/16 20:30 Pantoprazole Sodium (Protonix) 40 mg PO DAILY [facility] Stop: 08/23/16 08:59 Last Admin: 06/25/16 10:16 Dose: Not Given Vitamin B Complex/Vit C/Folic Acid (Vitamin B Complex W/Vitamin C) 1 tab PO DAILY [facility] Stop: 08/23/16 08:59 Last Admin: 06/25/16 10:16 Dose: Not Given General: Alert, Other (uncooperative, agitated) HEENT: Atraumatic, Mucous membr. moist/pink Neck: Supple, +2 carotid pulse wo bruit Cardiovascular: Normal S1, Normal S2, Other (irregularly irregular) Lungs: Other (decrease BS) Abdomen: Bowel sounds, Soft Extremities: Edema Neurological: Sensation intact Skin: no Rash Psych/Mental Status: Other (behaviour disturbance) Assessment/Plan - Problem List Patient Problems: All Active Problems MEDICAL EVALUATION PER DR FRY (Acute) - Assessment Assessment: esrd on hd persistent cellulitis b/l lower ext acute on chronic anemia possible gi bleed ohs chronic a. fib hypothyroid anasarca functional quadriplegia chronic venous stasis dermatitis acute decomp psychosis - Plan Plan: pt. pulled out perma cath refused palcement of juan carlos cath need psych eval
--- NOTE | 2016-06-25 14:01 | Infectious Disease Prog Note ---
Infectious Disease Subjective - Review of Systems Service Date: 06/25/16 Subjective: No change. Infectious Disease Objective - Results Result Diagrams: 06/25/16 08:30 06/25/16 08:30 Recent Labs: Laboratory Last Values WBC 4.6 Th/cmm (4.8-10.8) L 06/25/16 08:30 RBC 2.37 Mil/cmm (4.30-5.70) L 06/25/16 08:30 Hgb 6.9 gm/dL (13.2-17.3) L* 06/25/16 08:30 Hct 20.6 % (39.0-49.0) L* 06/25/16 08:30 MCV 86.6 fl (80-99) 06/25/16 08:30 MCH 29.1 pg (26.0-30.0) 06/25/16 08:30 MCHC Differential 33.5 pg (28.0-36.0) 06/25/16 08:30 RDW 17.0 % (11.5-20.0) 06/25/16 08:30 Plt Count 117 Th/cmm (150-400) L 06/25/16 08:30 MPV 9.7 fl 06/25/16 08:30 Band Neutrophils % 2 % (0-10) 06/25/16 08:30 Neutrophils (Manual) 63 % (40-80) 06/25/16 08:30 Lymphocytes 18 % (20-50) L 06/25/16 08:30 Monocytes 8 % (2-10) 06/25/16 08:30 Eosinophils 8 % (0-5) H 06/25/16 08:30 Basophils 1 % (0-3) 06/25/16 08:30 Hypochromia 1+ 06/22/16 19:33 Platelet Estimate DECREASED PLATELETS (NORMAL) 06/25/16 08:30 Platelet Morphology NORMAL (NORMAL) 06/25/16 08:30 Anisocytosis 1+ 06/25/16 08:30 RBC Morph Micro Appear ABNORMAL (NORMAL) 06/25/16 08:30 PT 11.9 SECONDS (9.5-11.5) H 06/22/16 19:33 INR 1.19 (0.5-1.4) 06/22/16 19:33 PTT (Actin FS) 31.5 SECONDS (26.0-38.0) 06/22/16 19:33 Specimen Source art 06/22/16 20:03 Sample Site Right Radial 06/22/16 20:03 pH 7.49 (7.35-7.45) H 06/22/16 20:03 pCO2 34.0 mmHg (35.0-45.0) L 06/22/16 20:03 pO2 97.0 mmHg (80.0-100.0) 06/22/16 20:03 HCO3 25.9 mmol/L (20.0-26.0) 06/22/16 20:03 Base Excess 2.8 mmol/L (-3.0-3.0) 06/22/16 20:03 O2 Saturation 98.0 % (92.0-100.0) 06/22/16 20:03 Estuardo Test P 06/22/16 20:03 Vent Rate NA 06/22/16 20:03 Inspired O2 21 06/22/16 20:03 Tidal Volume NA 06/22/16 20:03 PEEP NA 06/22/16 20:03 Pressure (ins/psv/peep) NA 06/22/16 20:03 Critical Value RPINEIRA 06/22/16 20:03 Sodium 139 mEq/L (136-145) 06/25/16 08:30 Potassium 3.9 mEq/L (3.5-5.1) 06/25/16 08:30 Chloride 99 mEq/L (98-107) 06/25/16 08:30 Carbon Dioxide 21.9 mEq/L (21.0-31.0) 06/25/16 08:30 Anion Gap 22.0 (7.0-16.0) H 06/25/16 08:30 BUN 61 mg/dL (7-25) H 06/25/16 08:30 Creatinine 3.7 mg/dL (0.7-1.3) H 06/25/16 08:30 Est GFR ( Amer) 22.6 ml/min (>90) 06/25/16 08:30 Est GFR (Non-Af Amer) 18.7 ml/min 06/25/16 08:30 BUN/Creatinine Ratio 16.5 06/25/16 08:30 Glucose 88 mg/dL (70-105) 06/25/16 08:30 Calcium 10.2 mg/dL (8.6-10.3) 06/25/16 08:30 Phosphorus 5.1 mg/dL (2.5-5.0) H 06/23/16 11:25 Magnesium 2.1 mg/dL (1.9-2.7) 06/23/16 11:25 Total Bilirubin 1.0 mg/dL (0.3-1.0) 06/23/16 11:25 AST 31 U/L (13-39) 06/23/16 11:25 ALT 13 U/L (7-52) 06/23/16 11:25 Alkaline Phosphatase 24 U/L (34-104) L 06/23/16 11:25 Troponin I < 0.01 ng/mL (0.01-0.05) L 06/22/16 19:33 B-Natriuretic Peptide 668.0 pg/mL (5.0-100.0) H 06/22/16 19:33 Total Protein 7.7 gm/dL (6.0-8.3) 06/23/16 11:25 Albumin 2.9 gm/dL (4.2-5.5) L 06/23/16 11:25 Globulin 4.8 gm/dL 06/23/16 11:25 Albumin/Globulin Ratio 0.6 (1.0-1.8) L 06/23/16 11:25 Stool Occult Blood POSITIVE (NEGATIVE) 06/24/16 16:00 Random Vancomycin 22.1 ug/mL (5.0-40.0) 06/25/16 08:30 RPR NONREACTIVE (NONREACTIVE) 06/22/16 19:33 Blood Type A POSITIVE 06/22/16 20:41 Antibody Screen NEGATIVE 06/22/16 20:41 Crossmatch See Detail 06/22/16 20:41 - Physical Exam Vitals and I&O: Vital Signs Temp 98.4 F 06/25/16 00:00 Pulse 99 06/25/16 00:00 Resp 20 06/25/16 00:00 BP 105/66 06/24/16 11:36 Pulse Ox 99 06/25/16 00:00 Intake & Output 06/24/16 06/25/16 06/25/16 18:59 06:59 18:59 Intake Total 500 300 Balance 500 300 Intake: Oral 500 300 Other: # Voids 2 2 # Bowel Movements 3 Stool Characteristics Soft Soft Black Black Active Medications: Current Medications Acetaminophen (Tylenol) 325 mg PO Q6HR PRN PRN Reason: Mild Pain or Fever >101 Stop: 08/22/16 20:30 Acetaminophen/Hydrocodone Bitart ([place] 10 Mg/325 Mg) 1 tab PO Q8H PRN PRN Reason: Pain (Moderate) Stop: 08/22/16 20:30 Albuterol/Ipratropium (Duoneb Neb) 3 ml HHN Q2HR PRN PRN Reason: Shortness of Breath or Wheeze Cholecalciferol (Vitamin D3) 2,000 iu PO DAILY [facility] Stop: 08/23/16 08:59 Last Admin: 06/25/16 10:15 Dose: Not Given Docusate Sodium (Colace) 100 mg PO BID [facility] Stop: 08/22/16 16:59 Last Admin: 06/25/16 10:15 Dose: Not Given Epoetin Bernard[place] (Epogen) 10,000 units SUBQ TuThSa [facility] Stop: 08/22/16 14:29 Last Admin: 06/23/16 18:38 Dose: 10,000 units Vancomycin HCl 2 gm/ Sodium (Chloride) 500 mls @ 250 mls/hr IV ONCE ONE Stop: 06/25/16 19:59 Levothyroxine Sodium (Synthroid) 0.05 mg PO QDAC [facility] Stop: 08/23/16 07:29 Last Admin: 06/25/16 07:45 Dose: Not Given Miscellaneous (Vancomycin Iv Per Pharmacy) 1 ea MC PRN PRN PRN Reason: PROTOCOL Stop: 08/22/16 06:31 Morphine Sulfate (Morphine) 1 mg IV Q4H PRN PRN Reason: SEVERE PAIN Stop: 08/22/16 04:40 Last Admin: 06/23/16 09:50 Dose: 1 mg Ondansetron HCl (Zofran Odt) 4 mg PO Q6HR PRN PRN Reason: Nausea / Vomiting Stop: 08/22/16 20:30 Pantoprazole Sodium (Protonix) 40 mg PO DAILY [facility] Stop: 08/23/16 08:59 Last Admin: 06/25/16 10:16 Dose: Not Given Vitamin B Complex/Vit C/Folic Acid (Vitamin B Complex W/Vitamin C) 1 tab PO DAILY [facility] Stop: 08/23/16 08:59 Last Admin: 06/25/16 10:16 Dose: Not Given General: no acute distress, other (Morbidly obese.) HEENT: atraumatic, normocephalic, PERRLA Neck: supple Cardiovascular: S1S2, regular Lungs: clear to auscultation bilaterally, clear to percussion Abdomen: soft, no tender, no distended Extremities: no cyanosis, no clubbing, no edema Neurological: awake, alert, oriented, focal findings (discoloration of legs and non pitting swelling of zahraa legs.) Skin: intact Infectious Disease Assmt/Plan - Problem List Patient Problems: All Active Problems MEDICAL EVALUATION PER DR FRY (Acute) - Assessment Assessment: 1. Cellulitis of legs. 2. Lymphedema of legs. 3. CKD 5 on HD. 4. Morbid obesity. - Plan Plan: Continue the skin care and vanco IV.
[2016-06-25 14:20] LABS: HEMOGLOBIN 7.5 gm/dL (13.2-17.3)
--- NOTE | 2016-06-25 15:07 | Consultation ---
REFERRING PHYSICIAN: Brett Valadez M.D. REASON FOR CONSULTATION: Occult GI bleed. HISTORY OF PRESENT ILLNESS: A 51-year-old male with morbid obesity, end-stage renal disease, hemodialysis dependent, obstructive sleep apnea, hypertension, atrial fibrillation, peripheral vascular disease with chronic venous stasis change, hypothyroidism. We were asked to evaluate the patient for anemia and stool occult blood positivity. He pulled out his Perm-A-Cath. He is refusing reinsertion of his dialysis catheter. He appears somewhat confused. PAST MEDICAL HISTORY: As above. MEDICATIONS: Here are Tylenol, Hank[place], DuoNeb nebulizer, vitamin D3, Colace, Epogen, Synthroid, IV vancomycin, morphine, Zofran, Protonix, vancomycin, vitamin B and C complex. ALLERGIES: ADHESIVE TAPE. SOCIAL HISTORY: No recent tobacco, alcohol, or drugs. FAMILY HISTORY: Noncontributory. REVIEW OF SYSTEMS: As per history of present illness, otherwise unobtainable. PHYSICAL EXAMINATION: VITAL SIGNS: Temperature 98.5, blood pressure 125/89, pulse of 118, respirations are 19, O2 sats 92% on room air. GENERAL: The patient is well-developed, obese male in no acute distress, somewhat confused. HEENT: Sclerae nonicteric. Oropharynx is clear. CARDIOVASCULAR: Regular rate and rhythm. LUNGS: Clear to auscultation bilaterally. ABDOMEN: Soft, nontender, nondistended. Obese habitus. EXTREMITIES: No clubbing, cyanosis or edema. RECTAL: Deferred. LABORATORY DATA AND IMAGING: WBC 4.6, hemoglobin 6.9, MCV is 86, platelet count is 117, creatinine is 3.7. Liver enzymes are normal. Albumin is 2.9. Stool occult blood is positive. ASSESSMENT: 1. Anemia and occult gastrointestinal bleed. 2. Thrombocytopenia with a possible history of chronic lymphocytic leukemia. 3. History of morbid obesity. 4. History of end-stage renal disease, hemodialysis dependent. 5. Vascular access with pulling out of a Perm-A-Cath. 6. Obstructive sleep apnea, hypertension, atrial fibrillation and peripheral vascular disease. 7. History of hypothyroidism. 8. Confusional state, rule out psychiatric disorder versus encephalopathy. RECOMMENDATIONS: 1. Upper endoscopy and colonoscopy offered to the patient, but the patient refuses. It is unclear whether he is able to make his own decisions in appropriate manner. 2. Check ammonia level. 3. Psychiatric evaluation pending. 4. Follow up hemoglobin, transfuse as necessary. 5. Continue Colace, Protonix and Zofran for now. 6. Continue present diet. Thank you, Dr. Valadez for involving us in the care of your patient. If you have any further questions, please call us. JOB# [id number]
--- NOTE | 2016-06-25 18:42 | Consultation ---
PSYCHIATRIC CONSULTATION: AGE: 51 SEX: Male. REFERRING PHYSICIAN: Brett Valadez M.D. [employer]: Sandor Mirza M.D., M.P.H. REASON FOR THE CONSULT: Agitation and paranoia. HISTORY OF PRESENT ILLNESS: The patient is a 51-year-old male who has been agitated and uncooperative with the staff. The patient has been refusing to take medications. The patient has been anxious and nervous and tense. He also has not been able to follow any of staff directions. The patient also has been angry and irritable. PAST PSYCHIATRIC HISTORY: The patient seems to have history of schizoaffective disorder. PAST MEDICAL HISTORY: The patient currently denies any major medical problems. SOCIAL HISTORY: The patient is guarded and does not want to answer any questions. MENTAL STATUS EXAM: The patient appears his stated age. Anxious. Irritable mood. Thought processes are poverty of speech. The patient denied hallucinations or delusions, but seems to be actively responding to stimuli. The patient denies suicide or homicide. The patient is alert and oriented to time, place, person and situation. Intact immediate, recent and remote memories. Poor insight. Poor judgment. ASSESSMENT: PRIMARY DIAGNOSIS: Unspecified psychosis. SECONDARY DIAGNOSIS: Schizoaffective disorder. TREATMENT PLAN AND RECOMMENDATIONS: We will monitor the patient's behavior. We will try to transfer to [facility]. We will follow up. Thanks Dr. Valadez and we will follow up with you. JOB# [id number]
[2016-06-26] MEDS: Levothyroxine 0.05 Mg Tab PO SCH (06:46)
--- NOTE | 2016-06-26 09:18 | General Progress Note ---
Objective - Results Result Diagrams: 06/25/16 08:30 06/25/16 08:30 Recent Labs: Laboratory Last Values WBC 4.6 Th/cmm (4.8-10.8) L 06/25/16 08:30 RBC 2.37 Mil/cmm (4.30-5.70) L 06/25/16 08:30 Hgb 6.9 gm/dL (13.2-17.3) L* 06/25/16 08:30 Hct 20.6 % (39.0-49.0) L* 06/25/16 08:30 MCV 86.6 fl (80-99) 06/25/16 08:30 MCH 29.1 pg (26.0-30.0) 06/25/16 08:30 MCHC Differential 33.5 pg (28.0-36.0) 06/25/16 08:30 RDW 17.0 % (11.5-20.0) 06/25/16 08:30 Plt Count 117 Th/cmm (150-400) L 06/25/16 08:30 MPV 9.7 fl 06/25/16 08:30 Band Neutrophils % 2 % (0-10) 06/25/16 08:30 Neutrophils (Manual) 63 % (40-80) 06/25/16 08:30 Lymphocytes 18 % (20-50) L 06/25/16 08:30 Monocytes 8 % (2-10) 06/25/16 08:30 Eosinophils 8 % (0-5) H 06/25/16 08:30 Basophils 1 % (0-3) 06/25/16 08:30 Hypochromia 1+ 06/22/16 19:33 Platelet Estimate DECREASED PLATELETS (NORMAL) 06/25/16 08:30 Platelet Morphology NORMAL (NORMAL) 06/25/16 08:30 Anisocytosis 1+ 06/25/16 08:30 RBC Morph Micro Appear ABNORMAL (NORMAL) 06/25/16 08:30 PT 11.9 SECONDS (9.5-11.5) H 06/22/16 19:33 INR 1.19 (0.5-1.4) 06/22/16 19:33 PTT (Actin FS) 31.5 SECONDS (26.0-38.0) 06/22/16 19:33 Specimen Source art 06/22/16 20:03 Sample Site Right Radial 06/22/16 20:03 pH 7.49 (7.35-7.45) H 06/22/16 20:03 pCO2 34.0 mmHg (35.0-45.0) L 06/22/16 20:03 pO2 97.0 mmHg (80.0-100.0) 06/22/16 20:03 HCO3 25.9 mmol/L (20.0-26.0) 06/22/16 20:03 Base Excess 2.8 mmol/L (-3.0-3.0) 06/22/16 20:03 O2 Saturation 98.0 % (92.0-100.0) 06/22/16 20:03 Estuardo Test P 06/22/16 20:03 Vent Rate NA 06/22/16 20:03 Inspired O2 21 06/22/16 20:03 Tidal Volume NA 06/22/16 20:03 PEEP NA 06/22/16 20:03 Pressure (ins/psv/peep) NA 06/22/16 20:03 Critical Value RPINEIRA 06/22/16 20:03 Sodium 139 mEq/L (136-145) 06/25/16 08:30 Potassium 3.9 mEq/L (3.5-5.1) 06/25/16 08:30 Chloride 99 mEq/L (98-107) 06/25/16 08:30 Carbon Dioxide 21.9 mEq/L (21.0-31.0) 06/25/16 08:30 Anion Gap 22.0 (7.0-16.0) H 06/25/16 08:30 BUN 61 mg/dL (7-25) H 06/25/16 08:30 Creatinine 3.7 mg/dL (0.7-1.3) H 06/25/16 08:30 Est GFR ( Amer) 22.6 ml/min (>90) 06/25/16 08:30 Est GFR (Non-Af Amer) 18.7 ml/min 06/25/16 08:30 BUN/Creatinine Ratio 16.5 06/25/16 08:30 Glucose 88 mg/dL (70-105) 06/25/16 08:30 Calcium 10.2 mg/dL (8.6-10.3) 06/25/16 08:30 Phosphorus 5.1 mg/dL (2.5-5.0) H 06/23/16 11:25 Magnesium 2.1 mg/dL (1.9-2.7) 06/23/16 11:25 Total Bilirubin 1.0 mg/dL (0.3-1.0) 06/23/16 11:25 AST 31 U/L (13-39) 06/23/16 11:25 ALT 13 U/L (7-52) 06/23/16 11:25 Alkaline Phosphatase 24 U/L (34-104) L 06/23/16 11:25 Ammonia 129 umol/L (16-53) H 06/25/16 20:44 Troponin I < 0.01 ng/mL (0.01-0.05) L 06/22/16 19:33 B-Natriuretic Peptide 668.0 pg/mL (5.0-100.0) H 06/22/16 19:33 Total Protein 7.7 gm/dL (6.0-8.3) 06/23/16 11:25 Albumin 2.9 gm/dL (4.2-5.5) L 06/23/16 11:25 Globulin 4.8 gm/dL 06/23/16 11:25 Albumin/Globulin Ratio 0.6 (1.0-1.8) L 06/23/16 11:25 Stool Occult Blood POSITIVE (NEGATIVE) 06/24/16 16:00 Random Vancomycin 22.1 ug/mL (5.0-40.0) 06/25/16 08:30 RPR NONREACTIVE (NONREACTIVE) 06/22/16 19:33 Blood Type A POSITIVE 06/22/16 20:41 Antibody Screen NEGATIVE 06/22/16 20:41 Crossmatch See Detail 06/22/16 20:41 - Physical Exam Vitals and I&O: Vital Signs Temp 98.2 F 06/26/16 07:47 Pulse 129 06/26/16 07:47 Resp 18 06/26/16 07:47 BP 98/55 06/26/16 07:47 Pulse Ox 92 06/26/16 07:47 Intake & Output 06/25/16 06/26/16 06/26/16 18:59 06:59 18:59 Intake Total 200 150 Balance 200 150 Intake: Oral 200 150 Other: # Voids 2 Stool Characteristics Soft Soft Black Black Active Medications: Current Medications Acetaminophen (Tylenol) 325 mg PO Q6HR PRN PRN Reason: Mild Pain or Fever >101 Stop: 08/22/16 20:30 Acetaminophen/Hydrocodone Bitart ([place] 10 Mg/325 Mg) 1 tab PO Q8H PRN PRN Reason: Pain (Moderate) Stop: 08/22/16 20:30 Albuterol/Ipratropium (Duoneb Neb) 3 ml HHN Q2HR PRN PRN Reason: Shortness of Breath or Wheeze Cholecalciferol (Vitamin D3) 2,000 iu PO DAILY [facility] Stop: 08/23/16 08:59 Last Admin: 06/25/16 10:15 Dose: Not Given Docusate Sodium (Colace) 100 mg PO BID [facility] Stop: 08/22/16 16:59 Last Admin: 06/25/16 18:38 Dose: Not Given Epoetin Bernardino (Epogen) 10,000 units SUBQ TuThSa [facility] Stop: 08/22/16 14:29 Last Admin: 06/23/16 18:38 Dose: 10,000 units Levothyroxine Sodium (Synthroid) 0.05 mg PO QDAC [facility] Stop: 08/23/16 07:29 Last Admin: 06/26/16 06:46 Dose: 0.05 mg Miscellaneous (Vancomycin Iv Per Pharmacy) 1 ea MC PRN PRN PRN Reason: PROTOCOL Stop: 08/22/16 06:31 Morphine Sulfate (Morphine) 1 mg IV Q4H PRN PRN Reason: SEVERE PAIN Stop: 08/22/16 04:40 Last Admin: 06/23/16 09:50 Dose: 1 mg Ondansetron HCl (Zofran Odt) 4 mg PO Q6HR PRN PRN Reason: Nausea / Vomiting Stop: 08/22/16 20:30 Pantoprazole Sodium (Protonix) 40 mg PO DAILY [facility] Stop: 08/23/16 08:59 Last Admin: 06/25/16 10:16 Dose: Not Given Vitamin B Complex/Vit C/Folic Acid (Vitamin B Complex W/Vitamin C) 1 tab PO DAILY [facility] Stop: 08/23/16 08:59 Last Admin: 06/25/16 10:16 Dose: Not Given General: Alert, Cooperative HEENT: Atraumatic Neck: Supple Cardiovascular: Regular rate Lungs: Clear to auscultation, Normal air movement Abdomen: Bowel sounds Assessment/Plan - Problem List Patient Problems: All Active Problems MEDICAL EVALUATION PER DR FRY (Acute) - Assessment Assessment: 1. Cellulitis of legs. 2. Lymphedema of legs. 3. CKD 5 on HD. 4. Morbid obesity. - Plan Plan: ivabx follow up labs id consult
[2016-06-26] MEDS: Pantoprazole 40 mg EC Tab PO SCH (10:17)
[2016-06-26] MEDS: Vitamin B Complex w/Vitamin C Tab PO SCH (10:18)
--- NOTE | 2016-06-26 11:59 | General Progress Note ---
Subjective - Review of Systems Service Date: 06/26/16 Subjective: still confused but took some of his meds Objective - Results Result Diagrams: 06/25/16 08:30 06/25/16 08:30 Recent Labs: Laboratory Last Values WBC 4.6 Th/cmm (4.8-10.8) L 06/25/16 08:30 RBC 2.37 Mil/cmm (4.30-5.70) L 06/25/16 08:30 Hgb 6.9 gm/dL (13.2-17.3) L* 06/25/16 08:30 Hct 20.6 % (39.0-49.0) L* 06/25/16 08:30 MCV 86.6 fl (80-99) 06/25/16 08:30 MCH 29.1 pg (26.0-30.0) 06/25/16 08:30 MCHC Differential 33.5 pg (28.0-36.0) 06/25/16 08:30 RDW 17.0 % (11.5-20.0) 06/25/16 08:30 Plt Count 117 Th/cmm (150-400) L 06/25/16 08:30 MPV 9.7 fl 06/25/16 08:30 Band Neutrophils % 2 % (0-10) 06/25/16 08:30 Neutrophils (Manual) 63 % (40-80) 06/25/16 08:30 Lymphocytes 18 % (20-50) L 06/25/16 08:30 Monocytes 8 % (2-10) 06/25/16 08:30 Eosinophils 8 % (0-5) H 06/25/16 08:30 Basophils 1 % (0-3) 06/25/16 08:30 Hypochromia 1+ 06/22/16 19:33 Platelet Estimate DECREASED PLATELETS (NORMAL) 06/25/16 08:30 Platelet Morphology NORMAL (NORMAL) 06/25/16 08:30 Anisocytosis 1+ 06/25/16 08:30 RBC Morph Micro Appear ABNORMAL (NORMAL) 06/25/16 08:30 PT 11.9 SECONDS (9.5-11.5) H 06/22/16 19:33 INR 1.19 (0.5-1.4) 06/22/16 19:33 PTT (Actin FS) 31.5 SECONDS (26.0-38.0) 06/22/16 19:33 Specimen Source art 06/22/16 20:03 Sample Site Right Radial 06/22/16 20:03 pH 7.49 (7.35-7.45) H 06/22/16 20:03 pCO2 34.0 mmHg (35.0-45.0) L 06/22/16 20:03 pO2 97.0 mmHg (80.0-100.0) 06/22/16 20:03 HCO3 25.9 mmol/L (20.0-26.0) 06/22/16 20:03 Base Excess 2.8 mmol/L (-3.0-3.0) 06/22/16 20:03 O2 Saturation 98.0 % (92.0-100.0) 06/22/16 20:03 Estuardo Test P 06/22/16 20:03 Vent Rate NA 06/22/16 20:03 Inspired O2 21 06/22/16 20:03 Tidal Volume NA 06/22/16 20:03 PEEP NA 06/22/16 20:03 Pressure (ins/psv/peep) NA 06/22/16 20:03 Critical Value RPINEIRA 06/22/16 20:03 Sodium 139 mEq/L (136-145) 06/25/16 08:30 Potassium 3.9 mEq/L (3.5-5.1) 06/25/16 08:30 Chloride 99 mEq/L (98-107) 06/25/16 08:30 Carbon Dioxide 21.9 mEq/L (21.0-31.0) 06/25/16 08:30 Anion Gap 22.0 (7.0-16.0) H 06/25/16 08:30 BUN 61 mg/dL (7-25) H 06/25/16 08:30 Creatinine 3.7 mg/dL (0.7-1.3) H 06/25/16 08:30 Est GFR ( Amer) 22.6 ml/min (>90) 06/25/16 08:30 Est GFR (Non-Af Amer) 18.7 ml/min 06/25/16 08:30 BUN/Creatinine Ratio 16.5 06/25/16 08:30 Glucose 88 mg/dL (70-105) 06/25/16 08:30 Calcium 10.2 mg/dL (8.6-10.3) 06/25/16 08:30 Phosphorus 5.1 mg/dL (2.5-5.0) H 06/23/16 11:25 Magnesium 2.1 mg/dL (1.9-2.7) 06/23/16 11:25 Total Bilirubin 1.0 mg/dL (0.3-1.0) 06/23/16 11:25 AST 31 U/L (13-39) 06/23/16 11:25 ALT 13 U/L (7-52) 06/23/16 11:25 Alkaline Phosphatase 24 U/L (34-104) L 06/23/16 11:25 Ammonia 129 umol/L (16-53) H 06/25/16 20:44 Troponin I < 0.01 ng/mL (0.01-0.05) L 06/22/16 19:33 B-Natriuretic Peptide 668.0 pg/mL (5.0-100.0) H 06/22/16 19:33 Total Protein 7.7 gm/dL (6.0-8.3) 06/23/16 11:25 Albumin 2.9 gm/dL (4.2-5.5) L 06/23/16 11:25 Globulin 4.8 gm/dL 06/23/16 11:25 Albumin/Globulin Ratio 0.6 (1.0-1.8) L 06/23/16 11:25 Stool Occult Blood POSITIVE (NEGATIVE) 06/24/16 16:00 Random Vancomycin 22.1 ug/mL (5.0-40.0) 06/25/16 08:30 RPR NONREACTIVE (NONREACTIVE) 06/22/16 19:33 Blood Type A POSITIVE 06/22/16 20:41 Antibody Screen NEGATIVE 06/22/16 20:41 Crossmatch See Detail 06/22/16 20:41 - Physical Exam Vitals and I&O: Vital Signs Temp 98.4 F 06/26/16 11:25 Pulse 125 06/26/16 11:25 Resp 18 06/26/16 11:25 BP 96/56 06/26/16 11:25 Pulse Ox 93 06/26/16 11:25 Intake & Output 02/06/17 02/07/17 02/07/17 18:59 06:59 18:59 Intake Total 200 150 Balance 200 150 Intake: Oral 200 150 Other: # Voids 2 Stool Characteristics Soft Soft Black Black Active Medications: Current Medications Acetaminophen (Tylenol) 325 mg PO Q6HR PRN PRN Reason: Mild Pain or Fever >101 Stop: 08/22/16 20:30 Acetaminophen/Hydrocodone Bitart ([place] 10 Mg/325 Mg) 1 tab PO Q8H PRN PRN Reason: Pain (Moderate) Stop: 08/22/16 20:30 Albuterol/Ipratropium (Duoneb Neb) 3 ml HHN Q2HR PRN PRN Reason: Shortness of Breath or Wheeze Cholecalciferol (Vitamin D3) 2,000 iu PO DAILY [facility] Stop: 08/23/16 08:59 Last Admin: 06/26/16 10:16 Dose: 2,000 iu Docusate Sodium (Colace) 100 mg PO BID [facility] Stop: 08/22/16 16:59 Last Admin: 06/26/16 10:17 Dose: 100 mg Epoetin Bernardino (Epogen) 10,000 units SUBQ TuThSa [facility] Stop: 08/22/16 14:29 Last Admin: 06/23/16 18:38 Dose: 10,000 units Lactulose (Cephulac) 60 gm PO TID [facility] Stop: 08/25/16 13:59 Levothyroxine Sodium (Synthroid) 0.05 mg PO QDAC [facility] Stop: 08/23/16 07:29 Last Admin: 06/26/16 06:46 Dose: 0.05 mg Lorazepam (Ativan) 1 mg IM Q4HR PRN; Protocol PRN Reason: Agitation Stop: 08/25/16 10:37 Miscellaneous (Vancomycin Iv Per Pharmacy) 1 ea MC PRN PRN PRN Reason: PROTOCOL Stop: 08/22/16 06:31 Morphine Sulfate (Morphine) 1 mg IV Q4H PRN PRN Reason: SEVERE PAIN Stop: 08/22/16 04:40 Last Admin: 06/23/16 09:50 Dose: 1 mg Ondansetron HCl (Zofran Odt) 4 mg PO Q6HR PRN PRN Reason: Nausea / Vomiting Stop: 08/22/16 20:30 Pantoprazole Sodium (Protonix) 40 mg PO DAILY [facility] Stop: 08/23/16 08:59 Last Admin: 06/26/16 10:17 Dose: 40 mg Vitamin B Complex/Vit C/Folic Acid (Vitamin B Complex W/Vitamin C) 1 tab PO DAILY [facility] Stop: 08/23/16 08:59 Last Admin: 06/26/16 10:18 Dose: 1 tab General: Alert, Other (uncooperative) HEENT: Atraumatic, Mucous membr. moist/pink Neck: Supple, +2 carotid pulse wo bruit Cardiovascular: Regular rate, Normal S1, Normal S2 Lungs: Clear to auscultation Abdomen: Bowel sounds, Soft Extremities: Edema Neurological: Sensation intact Skin: no Rash Assessment/Plan - Problem List Patient Problems: All Active Problems MEDICAL EVALUATION PER DR FRY (Acute) - Assessment Assessment: esrd on hd persistent cellulitis b/l lower ext acute on chronic anemia possible gi bleed ohs chronic a. fib hypothyroid anasarca functional quadriplegia chronic venous stasis dermatitis acute decomp psychosis - Plan Plan: pt. pulled out perma cath refused palcement of juan carlos cath seen by psych start lactulose
[2016-06-26] MEDS ORDERED: Haloperidol Lactate 5 mg/mL 1mL Vial IM PRN (12:11)
[2016-06-26] MEDS: Lactulose 10 Gm/15 mL 30mL UDC PO SCH ×2 (13:59→21:14)
[2016-06-26] MEDS ORDERED: Lactulose 10 Gm/15 mL 30mL UDC PO SCH (14:00)
[2016-06-26] MEDS: Epoetin Alfa 20000 Units/mL Vial SUBQ SCH (14:00)
[2016-06-26] MEDS: Hydrocodone/APAP 10 mg/325 mg Tab PO PRN (14:01)
--- NOTE | 2016-06-26 23:50 | Infectious Disease Prog Note ---
Infectious Disease Subjective - Review of Systems Service Date: 06/26/16 Subjective: No change. Infectious Disease Objective - Results Result Diagrams: 06/25/16 08:30 06/25/16 08:30 Recent Labs: Laboratory Last Values WBC 4.6 Th/cmm (4.8-10.8) L 06/25/16 08:30 RBC 2.37 Mil/cmm (4.30-5.70) L 06/25/16 08:30 Hgb 6.9 gm/dL (13.2-17.3) L* 06/25/16 08:30 Hct 20.6 % (39.0-49.0) L* 06/25/16 08:30 MCV 86.6 fl (80-99) 06/25/16 08:30 MCH 29.1 pg (26.0-30.0) 06/25/16 08:30 MCHC Differential 33.5 pg (28.0-36.0) 06/25/16 08:30 RDW 17.0 % (11.5-20.0) 06/25/16 08:30 Plt Count 117 Th/cmm (150-400) L 06/25/16 08:30 MPV 9.7 fl 06/25/16 08:30 Band Neutrophils % 2 % (0-10) 06/25/16 08:30 Neutrophils (Manual) 63 % (40-80) 06/25/16 08:30 Lymphocytes 18 % (20-50) L 06/25/16 08:30 Monocytes 8 % (2-10) 06/25/16 08:30 Eosinophils 8 % (0-5) H 06/25/16 08:30 Basophils 1 % (0-3) 06/25/16 08:30 Hypochromia 1+ 06/22/16 19:33 Platelet Estimate DECREASED PLATELETS (NORMAL) 06/25/16 08:30 Platelet Morphology NORMAL (NORMAL) 06/25/16 08:30 Anisocytosis 1+ 06/25/16 08:30 RBC Morph Micro Appear ABNORMAL (NORMAL) 06/25/16 08:30 PT 11.9 SECONDS (9.5-11.5) H 06/22/16 19:33 INR 1.19 (0.5-1.4) 06/22/16 19:33 PTT (Actin FS) 31.5 SECONDS (26.0-38.0) 06/22/16 19:33 Specimen Source art 06/22/16 20:03 Sample Site Right Radial 06/22/16 20:03 pH 7.49 (7.35-7.45) H 06/22/16 20:03 pCO2 34.0 mmHg (35.0-45.0) L 06/22/16 20:03 pO2 97.0 mmHg (80.0-100.0) 06/22/16 20:03 HCO3 25.9 mmol/L (20.0-26.0) 06/22/16 20:03 Base Excess 2.8 mmol/L (-3.0-3.0) 06/22/16 20:03 O2 Saturation 98.0 % (92.0-100.0) 06/22/16 20:03 Estuardo Test P 06/22/16 20:03 Vent Rate NA 06/22/16 20:03 Inspired O2 21 06/22/16 20:03 Tidal Volume NA 06/22/16 20:03 PEEP NA 06/22/16 20:03 Pressure (ins/psv/peep) NA 06/22/16 20:03 Critical Value RPINEIRA 06/22/16 20:03 Sodium 139 mEq/L (136-145) 06/25/16 08:30 Potassium 3.9 mEq/L (3.5-5.1) 06/25/16 08:30 Chloride 99 mEq/L (98-107) 06/25/16 08:30 Carbon Dioxide 21.9 mEq/L (21.0-31.0) 06/25/16 08:30 Anion Gap 22.0 (7.0-16.0) H 06/25/16 08:30 BUN 61 mg/dL (7-25) H 06/25/16 08:30 Creatinine 3.7 mg/dL (0.7-1.3) H 06/25/16 08:30 Est GFR ( Amer) 22.6 ml/min (>90) 06/25/16 08:30 Est GFR (Non-Af Amer) 18.7 ml/min 06/25/16 08:30 BUN/Creatinine Ratio 16.5 06/25/16 08:30 Glucose 88 mg/dL (70-105) 06/25/16 08:30 Calcium 10.2 mg/dL (8.6-10.3) 06/25/16 08:30 Phosphorus 5.1 mg/dL (2.5-5.0) H 06/23/16 11:25 Magnesium 2.1 mg/dL (1.9-2.7) 06/23/16 11:25 Total Bilirubin 1.0 mg/dL (0.3-1.0) 06/23/16 11:25 AST 31 U/L (13-39) 06/23/16 11:25 ALT 13 U/L (7-52) 06/23/16 11:25 Alkaline Phosphatase 24 U/L (34-104) L 06/23/16 11:25 Ammonia 129 umol/L (16-53) H 06/25/16 20:44 Troponin I < 0.01 ng/mL (0.01-0.05) L 06/22/16 19:33 B-Natriuretic Peptide 668.0 pg/mL (5.0-100.0) H 06/22/16 19:33 Total Protein 7.7 gm/dL (6.0-8.3) 06/23/16 11:25 Albumin 2.9 gm/dL (4.2-5.5) L 06/23/16 11:25 Globulin 4.8 gm/dL 06/23/16 11:25 Albumin/Globulin Ratio 0.6 (1.0-1.8) L 06/23/16 11:25 Stool Occult Blood POSITIVE (NEGATIVE) 06/24/16 16:00 Random Vancomycin 22.1 ug/mL (5.0-40.0) 06/25/16 08:30 RPR NONREACTIVE (NONREACTIVE) 06/22/16 19:33 Blood Type A POSITIVE 06/22/16 20:41 Antibody Screen NEGATIVE 06/22/16 20:41 Crossmatch See Detail 06/22/16 20:41 - Physical Exam Vitals and I&O: Vital Signs Temp 98.4 F 06/26/16 20:00 Pulse 83 06/26/16 20:00 Resp 20 06/26/16 20:00 BP 105/53 06/26/16 20:00 Pulse Ox 95 06/26/16 20:00 Intake & Output 06/26/16 06/26/16 06/27/16 06:59 18:59 06:59 Intake Total 150 1000 Balance 150 1000 Intake: Oral 150 1000 Other: # Voids 2 Stool Characteristics Soft Black Active Medications: Current Medications Acetaminophen (Tylenol) 325 mg PO Q6HR PRN PRN Reason: Mild Pain or Fever >101 Stop: 08/22/16 20:30 Acetaminophen/Hydrocodone Bitart ([place] 10 Mg/325 Mg) 1 tab PO Q8H PRN PRN Reason: Pain (Moderate) Stop: 08/22/16 20:30 Last Admin: 06/26/16 14:01 Dose: 1 tab Albuterol/Ipratropium (Duoneb Neb) 3 ml HHN Q2HR PRN PRN Reason: Shortness of Breath or Wheeze Cholecalciferol (Vitamin D3) 2,000 iu PO DAILY [facility] Stop: 08/23/16 08:59 Last Admin: 06/26/16 10:16 Dose: 2,000 iu Diphenhydramine HCl (Benadryl 50 Mg/Ml) 50 mg IM Q8HR PRN PRN Reason: Agitation Stop: 08/25/16 12:10 Docusate Sodium (Colace) 100 mg PO BID [facility] Stop: 08/22/16 16:59 Last Admin: 06/26/16 17:05 Dose: 100 mg Epoetin Bernardino (Epogen) 10,000 units SUBQ TuThSa [facility] Stop: 08/22/16 14:29 Last Admin: 06/26/16 14:00 Dose: Not Given Haloperidol Lactate (Haldol) 5 mg IM Q8HR PRN PRN Reason: Agitation Stop: 08/25/16 12:10 Lactulose (Cephulac) 30 gm PO TID [facility] Stop: 08/25/16 13:59 Last Admin: 06/26/16 21:14 Dose: Not Given Levothyroxine Sodium (Synthroid) 0.05 mg PO QDAC [facility] Stop: 08/23/16 07:29 Last Admin: 06/26/16 06:46 Dose: 0.05 mg Lorazepam (Ativan) 1 mg IM Q4HR PRN; Protocol PRN Reason: Agitation Stop: 08/25/16 10:37 Last Admin: 06/26/16 14:01 Dose: 1 mg Miscellaneous (Vancomycin Iv Per Pharmacy) 1 ea [facility] PRN PRN PRN Reason: PROTOCOL Stop: 08/22/16 06:31 Morphine Sulfate (Morphine) 1 mg IV Q4H PRN PRN Reason: SEVERE PAIN Stop: 08/22/16 04:40 Last Admin: 06/23/16 09:50 Dose: 1 mg Ondansetron HCl (Zofran Odt) 4 mg PO Q6HR PRN PRN Reason: Nausea / Vomiting Stop: 08/22/16 20:30 Pantoprazole Sodium (Protonix) 40 mg PO DAILY [facility] Stop: 08/23/16 08:59 Last Admin: 06/26/16 10:17 Dose: 40 mg Rifaximin (Xifaxan) 600 mg PO BID [facility] Stop: 08/25/16 16:59 Last Admin: 06/26/16 17:05 Dose: 600 mg Vitamin B Complex/Vit C/Folic Acid (Vitamin B Complex W/Vitamin C) 1 tab PO DAILY [facility] Stop: 08/23/16 08:59 Last Admin: 06/26/16 10:18 Dose: 1 tab General: no acute distress, other (obese) HEENT: atraumatic, normocephalic, PERRLA, EOMI Neck: supple, no thyromegaly Cardiovascular: S1S2, regular Lungs: clear to auscultation bilaterally, clear to percussion Abdomen: soft, no tender, no distended Extremities: other (discoloration of legs.), no cyanosis, no clubbing, no edema Neurological: awake, alert, oriented Skin: intact Infectious Disease Assmt/Plan - Problem List Patient Problems: All Active Problems MEDICAL EVALUATION PER DR FRY (Acute) - Assessment Assessment: 1. Cellulitis of legs. 2. Lymphedema of legs. 3. CKD 5 on HD. 4. Morbid obesity. - Plan Plan: Continue the skin care and vanco IV.
--- NOTE | 2016-06-27 03:15 | Consultation ---
REASON FOR CONSULTATION: Psychiatric evaluation and followup. HISTORY OF PRESENT ILLNESS: A 51-year-old male with history of renal failure and obesity. On [id number], the patient is not quite sure why he is here, notes he had his catheter pulled out. Denies depression. Denies anxiety. Notes he is sleeping well, eating well. He is not agitated at this time, but notes that he had previously fought with staff and apparently had been refusing medications. PAST PSYCHIATRIC HISTORY: Unclear, possible history of schizoaffective disorder per documentation. SOCIAL HISTORY: Unclear. His address is in [place]. It is unclear if he has any family involvement. MENTAL STATUS EXAMINATION: Overweight male of stated age, somewhat anxious. Mood "okay." Affect flat. Thought processes were grossly linear. Thought content, no current overt SI or HI at this time. The patient does not appear to be psychotic at this time, although he is a little bit confused as to why he is in the hospital. Insight and judgment are questionable x2. PROVISIONAL DIAGNOSES: Anxiety, unspecified. There may be a psychotic compliant here that Dr. Mirza did comment on, but at this time, the patient is not psychotic. Rule out schizoaffective disorder, although the patient denies any history of mental illness. MEDICAL: As noted. RECOMMENDATIONS AND PLAN: Continue to monitor. We will continue to titrate medications. The patient may benefit from as-needed medications to restore better calmness. For now, we will try to increase collateral, possible transfer to inpatient psych. JOB# [id number]
[2016-06-27] MEDS: Levothyroxine 0.05 Mg Tab PO SCH (06:43)
--- NOTE | 2016-06-27 10:04 | General Progress Note ---
Subjective - Review of Systems Service Date: 06/27/16 Subjective: pt refusing evrything pulled out vascular access yesterday spoke to dr forrest yesterday renal notes noted Objective - Results Result Diagrams: 06/25/16 08:30 06/25/16 08:30 Recent Labs: Laboratory Last Values WBC 4.6 Th/cmm (4.8-10.8) L 06/25/16 08:30 RBC 2.37 Mil/cmm (4.30-5.70) L 06/25/16 08:30 Hgb 6.9 gm/dL (13.2-17.3) L* 06/25/16 08:30 Hct 20.6 % (39.0-49.0) L* 06/25/16 08:30 MCV 86.6 fl (80-99) 06/25/16 08:30 MCH 29.1 pg (26.0-30.0) 06/25/16 08:30 MCHC Differential 33.5 pg (28.0-36.0) 06/25/16 08:30 RDW 17.0 % (11.5-20.0) 06/25/16 08:30 Plt Count 117 Th/cmm (150-400) L 06/25/16 08:30 MPV 9.7 fl 06/25/16 08:30 Band Neutrophils % 2 % (0-10) 06/25/16 08:30 Neutrophils (Manual) 63 % (40-80) 06/25/16 08:30 Lymphocytes 18 % (20-50) L 06/25/16 08:30 Monocytes 8 % (2-10) 06/25/16 08:30 Eosinophils 8 % (0-5) H 06/25/16 08:30 Basophils 1 % (0-3) 06/25/16 08:30 Hypochromia 1+ 06/22/16 19:33 Platelet Estimate DECREASED PLATELETS (NORMAL) 06/25/16 08:30 Platelet Morphology NORMAL (NORMAL) 06/25/16 08:30 Anisocytosis 1+ 06/25/16 08:30 RBC Morph Micro Appear ABNORMAL (NORMAL) 06/25/16 08:30 PT 11.9 SECONDS (9.5-11.5) H 06/22/16 19:33 INR 1.19 (0.5-1.4) 06/22/16 19:33 PTT (Actin FS) 31.5 SECONDS (26.0-38.0) 06/22/16 19:33 Specimen Source art 06/22/16 20:03 Sample Site Right Radial 06/22/16 20:03 pH 7.49 (7.35-7.45) H 06/22/16 20:03 pCO2 34.0 mmHg (35.0-45.0) L 06/22/16 20:03 pO2 97.0 mmHg (80.0-100.0) 06/22/16 20:03 HCO3 25.9 mmol/L (20.0-26.0) 06/22/16 20:03 Base Excess 2.8 mmol/L (-3.0-3.0) 06/22/16 20:03 O2 Saturation 98.0 % (92.0-100.0) 06/22/16 20:03 Estuardo Test P 06/22/16 20:03 Vent Rate NA 06/22/16 20:03 Inspired O2 21 06/22/16 20:03 Tidal Volume NA 06/22/16 20:03 PEEP NA 06/22/16 20:03 Pressure (ins/psv/peep) NA 06/22/16 20:03 Critical Value RPINEIRA 06/22/16 20:03 Sodium 139 mEq/L (136-145) 06/25/16 08:30 Potassium 3.9 mEq/L (3.5-5.1) 06/25/16 08:30 Chloride 99 mEq/L (98-107) 06/25/16 08:30 Carbon Dioxide 21.9 mEq/L (21.0-31.0) 06/25/16 08:30 Anion Gap 22.0 (7.0-16.0) H 06/25/16 08:30 BUN 61 mg/dL (7-25) H 06/25/16 08:30 Creatinine 3.7 mg/dL (0.7-1.3) H 06/25/16 08:30 Est GFR ( Amer) 22.6 ml/min (>90) 06/25/16 08:30 Est GFR (Non-Af Amer) 18.7 ml/min 06/25/16 08:30 BUN/Creatinine Ratio 16.5 06/25/16 08:30 Glucose 88 mg/dL (70-105) 06/25/16 08:30 Calcium 10.2 mg/dL (8.6-10.3) 06/25/16 08:30 Phosphorus 5.1 mg/dL (2.5-5.0) H 06/23/16 11:25 Magnesium 2.1 mg/dL (1.9-2.7) 06/23/16 11:25 Total Bilirubin 1.0 mg/dL (0.3-1.0) 06/23/16 11:25 AST 31 U/L (13-39) 06/23/16 11:25 ALT 13 U/L (7-52) 06/23/16 11:25 Alkaline Phosphatase 24 U/L (34-104) L 06/23/16 11:25 Ammonia 129 umol/L (16-53) H 06/25/16 20:44 Troponin I < 0.01 ng/mL (0.01-0.05) L 06/22/16 19:33 B-Natriuretic Peptide 668.0 pg/mL (5.0-100.0) H 06/22/16 19:33 Total Protein 7.7 gm/dL (6.0-8.3) 06/23/16 11:25 Albumin 2.9 gm/dL (4.2-5.5) L 06/23/16 11:25 Globulin 4.8 gm/dL 06/23/16 11:25 Albumin/Globulin Ratio 0.6 (1.0-1.8) L 06/23/16 11:25 Stool Occult Blood POSITIVE (NEGATIVE) 06/24/16 16:00 Random Vancomycin 22.1 ug/mL (5.0-40.0) 06/25/16 08:30 RPR NONREACTIVE (NONREACTIVE) 06/22/16 19:33 Blood Type A POSITIVE 06/22/16 20:41 Antibody Screen NEGATIVE 06/22/16 20:41 Crossmatch See Detail 06/22/16 20:41 - Physical Exam Vitals and I&O: Vital Signs Temp 97.6 F 06/27/16 07:48 Pulse 128 06/27/16 07:48 Resp 20 06/27/16 07:48 BP 96/50 06/27/16 07:48 Pulse Ox 98 06/27/16 07:48 Intake & Output 06/26/16 06/27/16 06/27/16 18:59 06:59 18:59 Intake Total 1000 Balance 1000 Intake: Oral 1000 Active Medications: Current Medications Acetaminophen (Tylenol) 325 mg PO Q6HR PRN PRN Reason: Mild Pain or Fever >101 Stop: 08/22/16 20:30 Acetaminophen/Hydrocodone Bitart ([place] 10 Mg/325 Mg) 1 tab PO Q8H PRN PRN Reason: Pain (Moderate) Stop: 08/22/16 20:30 Last Admin: 06/26/16 14:01 Dose: 1 tab Albuterol/Ipratropium (Duoneb Neb) 3 ml HHN Q2HR PRN PRN Reason: Shortness of Breath or Wheeze Cholecalciferol (Vitamin D3) 2,000 iu PO DAILY [facility] Stop: 08/23/16 08:59 Last Admin: 06/26/16 10:16 Dose: 2,000 iu Diphenhydramine HCl (Benadryl 50 Mg/Ml) 50 mg IM Q8HR PRN PRN Reason: Agitation Stop: 08/25/16 12:10 Docusate Sodium (Colace) 100 mg PO BID [facility] Stop: 08/22/16 16:59 Last Admin: 06/26/16 17:05 Dose: 100 mg Epoetin Bernardino (Epogen) 10,000 units SUBQ TuTa [facility] Stop: 08/22/16 14:29 Last Admin: 06/26/16 14:00 Dose: Not Given Haloperidol Lactate (Haldol) 5 mg IM Q8HR PRN PRN Reason: Agitation Stop: 08/25/16 12:10 Lactulose (Cephulac) 30 gm PO TID [facility] Stop: 08/25/16 13:59 Last Admin: 06/26/16 21:14 Dose: Not Given Levothyroxine Sodium (Synthroid) 0.05 mg PO QDAC [facility] Stop: 08/23/16 07:29 Last Admin: 06/27/16 06:43 Dose: Not Given Lorazepam (Ativan) 1 mg IM Q4HR PRN; Protocol PRN Reason: Agitation Stop: 08/25/16 10:37 Last Admin: 06/26/16 14:01 Dose: 1 mg Miscellaneous (Vancomycin Iv Per Pharmacy) 1 ea MC PRN PRN PRN Reason: PROTOCOL Stop: 08/22/16 06:31 Morphine Sulfate (Morphine) 1 mg IV Q4H PRN PRN Reason: SEVERE PAIN Stop: 08/22/16 04:40 Last Admin: 06/23/16 09:50 Dose: 1 mg Ondansetron HCl (Zofran Odt) 4 mg PO Q6HR PRN PRN Reason: Nausea / Vomiting Stop: 08/22/16 20:30 Pantoprazole Sodium (Protonix) 40 mg PO DAILY [facility] Stop: 08/23/16 08:59 Last Admin: 06/26/16 10:17 Dose: 40 mg Quetiapine Fumarate (Seroquel) 50 mg PO TID [facility] PRN Reason: Protocol Stop: 08/26/16 08:59 Rifaximin (Xifaxan) 600 mg PO BID [facility] Stop: 08/25/16 16:59 Last Admin: 06/26/16 17:05 Dose: 600 mg Vitamin B Complex/Vit C/Folic Acid (Vitamin B Complex W/Vitamin C) 1 tab PO DAILY [facility] Stop: 08/23/16 08:59 Last Admin: 06/26/16 10:18 Dose: 1 tab General: Alert, Moderate distress, Other (very uncoaperative) Neck: Supple Cardiovascular: Regular rate, Normal S1, Normal S2 Lungs: Other (tobias rales) Abdomen: Bowel sounds Neurological: Other (funtional quadriperisis) Psych/Mental Status: Other (very angry and uncoperative) Assessment/Plan - Problem List Patient Problems: All Active Problems MEDICAL EVALUATION PER DR FRY (Acute) - Assessment Assessment: 1. Cellulitis of legs. 2. Lymphedema of legs. 3. CKD 5 on HD. 4. Morbid obesity. 5 anemia 6 gi bleed 7 psychosis - Plan Plan: ivabx follow up labs id consult
[2016-06-27] MEDS: Lactulose 10 Gm/15 mL 30mL UDC PO SCH ×3 (10:26→21:00)
[2016-06-27] MEDS: Pantoprazole 40 mg EC Tab PO SCH (10:26)
[2016-06-27] MEDS: Vitamin B Complex w/Vitamin C Tab PO SCH (10:28)
--- NOTE | 2016-06-27 14:23 | General Progress Note ---
Subjective - Review of Systems Service Date: 06/27/16 Subjective: uncooperative, refused everything Objective - Results Result Diagrams: 06/25/16 08:30 06/25/16 08:30 Recent Labs: Laboratory Last Values WBC 4.6 Th/cmm (4.8-10.8) L 06/25/16 08:30 RBC 2.37 Mil/cmm (4.30-5.70) L 06/25/16 08:30 Hgb 6.9 gm/dL (13.2-17.3) L* 06/25/16 08:30 Hct 20.6 % (39.0-49.0) L* 06/25/16 08:30 MCV 86.6 fl (80-99) 06/25/16 08:30 MCH 29.1 pg (26.0-30.0) 06/25/16 08:30 MCHC Differential 33.5 pg (28.0-36.0) 06/25/16 08:30 RDW 17.0 % (11.5-20.0) 06/25/16 08:30 Plt Count 117 Th/cmm (150-400) L 06/25/16 08:30 MPV 9.7 fl 06/25/16 08:30 Band Neutrophils % 2 % (0-10) 06/25/16 08:30 Neutrophils (Manual) 63 % (40-80) 06/25/16 08:30 Lymphocytes 18 % (20-50) L 06/25/16 08:30 Monocytes 8 % (2-10) 06/25/16 08:30 Eosinophils 8 % (0-5) H 06/25/16 08:30 Basophils 1 % (0-3) 06/25/16 08:30 Hypochromia 1+ 06/22/16 19:33 Platelet Estimate DECREASED PLATELETS (NORMAL) 06/25/16 08:30 Platelet Morphology NORMAL (NORMAL) 06/25/16 08:30 Anisocytosis 1+ 06/25/16 08:30 RBC Morph Micro Appear ABNORMAL (NORMAL) 06/25/16 08:30 PT 11.9 SECONDS (9.5-11.5) H 06/22/16 19:33 INR 1.19 (0.5-1.4) 06/22/16 19:33 PTT (Actin FS) 31.5 SECONDS (26.0-38.0) 06/22/16 19:33 Specimen Source art 06/22/16 20:03 Sample Site Right Radial 06/22/16 20:03 pH 7.49 (7.35-7.45) H 06/22/16 20:03 pCO2 34.0 mmHg (35.0-45.0) L 06/22/16 20:03 pO2 97.0 mmHg (80.0-100.0) 06/22/16 20:03 HCO3 25.9 mmol/L (20.0-26.0) 06/22/16 20:03 Base Excess 2.8 mmol/L (-3.0-3.0) 06/22/16 20:03 O2 Saturation 98.0 % (92.0-100.0) 06/22/16 20:03 Estuardo Test P 06/22/16 20:03 Vent Rate NA 06/22/16 20:03 Inspired O2 21 06/22/16 20:03 Tidal Volume NA 06/22/16 20:03 PEEP NA 06/22/16 20:03 Pressure (ins/psv/peep) NA 06/22/16 20:03 Critical Value RPINEIRA 06/22/16 20:03 Sodium 139 mEq/L (136-145) 06/25/16 08:30 Potassium 3.9 mEq/L (3.5-5.1) 06/25/16 08:30 Chloride 99 mEq/L (98-107) 06/25/16 08:30 Carbon Dioxide 21.9 mEq/L (21.0-31.0) 06/25/16 08:30 Anion Gap 22.0 (7.0-16.0) H 06/25/16 08:30 BUN 61 mg/dL (7-25) H 06/25/16 08:30 Creatinine 3.7 mg/dL (0.7-1.3) H 06/25/16 08:30 Est GFR ( Amer) 22.6 ml/min (>90) 06/25/16 08:30 Est GFR (Non-Af Amer) 18.7 ml/min 06/25/16 08:30 BUN/Creatinine Ratio 16.5 06/25/16 08:30 Glucose 88 mg/dL (70-105) 06/25/16 08:30 Calcium 10.2 mg/dL (8.6-10.3) 06/25/16 08:30 Phosphorus 5.1 mg/dL (2.5-5.0) H 06/23/16 11:25 Magnesium 2.1 mg/dL (1.9-2.7) 06/23/16 11:25 Total Bilirubin 1.0 mg/dL (0.3-1.0) 06/23/16 11:25 AST 31 U/L (13-39) 06/23/16 11:25 ALT 13 U/L (7-52) 06/23/16 11:25 Alkaline Phosphatase 24 U/L (34-104) L 06/23/16 11:25 Ammonia 129 umol/L (16-53) H 06/25/16 20:44 Troponin I < 0.01 ng/mL (0.01-0.05) L 06/22/16 19:33 B-Natriuretic Peptide 668.0 pg/mL (5.0-100.0) H 06/22/16 19:33 Total Protein 7.7 gm/dL (6.0-8.3) 06/23/16 11:25 Albumin 2.9 gm/dL (4.2-5.5) L 06/23/16 11:25 Globulin 4.8 gm/dL 06/23/16 11:25 Albumin/Globulin Ratio 0.6 (1.0-1.8) L 06/23/16 11:25 Stool Occult Blood POSITIVE (NEGATIVE) 06/24/16 16:00 Random Vancomycin 22.1 ug/mL (5.0-40.0) 06/25/16 08:30 RPR NONREACTIVE (NONREACTIVE) 06/22/16 19:33 Blood Type A POSITIVE 06/22/16 20:41 Antibody Screen NEGATIVE 06/22/16 20:41 Crossmatch See Detail 06/22/16 20:41 - Physical Exam Vitals and I&O: Vital Signs Temp 97.4 F 06/27/16 12:28 Pulse 111 06/27/16 12:28 Resp 19 06/27/16 12:28 BP 108/65 06/27/16 12:28 Pulse Ox 97 06/27/16 12:28 Intake & Output 06/26/16 06/27/16 06/27/16 18:59 06:59 18:59 Intake Total 1000 Balance 1000 Intake: Oral 1000 Active Medications: Current Medications Acetaminophen (Tylenol) 325 mg PO Q6HR PRN PRN Reason: Mild Pain or Fever >101 Stop: 08/22/16 20:30 Acetaminophen/Hydrocodone Bitart ([place] 10 Mg/325 Mg) 1 tab PO Q8H PRN PRN Reason: Pain (Moderate) Stop: 08/22/16 20:30 Last Admin: 06/26/16 14:01 Dose: 1 tab Albuterol/Ipratropium (Duoneb Neb) 3 ml HHN Q2HR PRN PRN Reason: Shortness of Breath or Wheeze Cholecalciferol (Vitamin D3) 2,000 iu PO DAILY [facility] Stop: 08/23/16 08:59 Last Admin: 06/27/16 09:56 Dose: Not Given Diphenhydramine HCl (Benadryl 50 Mg/Ml) 50 mg IM Q8HR PRN PRN Reason: Agitation Stop: 08/25/16 12:10 Docusate Sodium (Colace) 100 mg PO BID [facility] Stop: 08/22/16 16:59 Last Admin: 06/27/16 10:26 Dose: Not Given Epoetin Bernardino (Epogen) 10,000 units SUBQ TuTa [facility] Stop: 08/22/16 14:29 Last Admin: 06/26/16 14:00 Dose: Not Given Haloperidol Lactate (Haldol) 5 mg IM Q8HR PRN PRN Reason: Agitation Stop: 08/25/16 12:10 Lactulose (Cephulac) 30 gm PO TID [facility] Stop: 08/25/16 13:59 Last Admin: 06/27/16 10:26 Dose: Not Given Levothyroxine Sodium (Synthroid) 0.05 mg PO QDAC [facility] Stop: 08/23/16 07:29 Last Admin: 06/27/16 06:43 Dose: Not Given Lorazepam (Ativan) 1 mg IM Q4HR PRN; Protocol PRN Reason: Agitation Stop: 08/25/16 10:37 Last Admin: 06/26/16 14:01 Dose: 1 mg Miscellaneous (Vancomycin Iv Per Pharmacy) 1 ea [facility] PRN PRN PRN Reason: PROTOCOL Stop: 08/22/16 06:31 Morphine Sulfate (Morphine) 1 mg IV Q4H PRN PRN Reason: SEVERE PAIN Stop: 08/22/16 04:40 Last Admin: 06/23/16 09:50 Dose: 1 mg Ondansetron HCl (Zofran Odt) 4 mg PO Q6HR PRN PRN Reason: Nausea / Vomiting Stop: 08/22/16 20:30 Pantoprazole Sodium (Protonix) 40 mg PO DAILY [facility] Stop: 08/23/16 08:59 Last Admin: 06/27/16 10:26 Dose: Not Given Quetiapine Fumarate (Seroquel) 50 mg PO TID [facility] PRN Reason: Protocol Stop: 08/26/16 08:59 Last Admin: 06/27/16 10:27 Dose: Not Given Rifaximin (Xifaxan) 600 mg PO BID [facility] Stop: 08/25/16 16:59 Last Admin: 06/27/16 10:27 Dose: Not Given Vitamin B Complex/Vit C/Folic Acid (Vitamin B Complex W/Vitamin C) 1 tab PO DAILY [facility] Stop: 08/23/16 08:59 Last Admin: 06/27/16 10:28 Dose: Not Given General: Alert, no Cooperative HEENT: Atraumatic, Mucous membr. moist/pink Neck: Supple, +2 carotid pulse wo bruit Cardiovascular: Regular rate, Normal S1, Normal S2 Lungs: Clear to auscultation Abdomen: Bowel sounds, Soft, Obese Extremities: Edema Neurological: Sensation intact Skin: no Rash Psych/Mental Status: Other (agitated, uncooperative) Assessment/Plan - Problem List Patient Problems: All Active Problems MEDICAL EVALUATION PER DR FRY (Acute) - Assessment Assessment: esrd on hd persistent cellulitis b/l lower ext acute on chronic anemia possible gi bleed ohs chronic a. fib hypothyroid anasarca functional quadriplegia chronic venous stasis dermatitis acute decomp psychosis - Plan Plan: pt. pulled out perma cath refused palcement of juan carlos cath seen by psych start lactulose
--- NOTE | 2016-06-27 19:54 | General Progress Note ---
Subjective - Review of Systems Service Date: 06/27/16 Subjective: EVENTS NOTED SAHRA DIET NO ABD PAIN Objective - Results Result Diagrams: 06/25/16 08:30 06/25/16 08:30 Recent Labs: Laboratory Last Values WBC 4.6 Th/cmm (4.8-10.8) L 06/25/16 08:30 RBC 2.37 Mil/cmm (4.30-5.70) L 06/25/16 08:30 Hgb 6.9 gm/dL (13.2-17.3) L* 06/25/16 08:30 Hct 20.6 % (39.0-49.0) L* 06/25/16 08:30 MCV 86.6 fl (80-99) 06/25/16 08:30 MCH 29.1 pg (26.0-30.0) 06/25/16 08:30 MCHC Differential 33.5 pg (28.0-36.0) 06/25/16 08:30 RDW 17.0 % (11.5-20.0) 06/25/16 08:30 Plt Count 117 Th/cmm (150-400) L 06/25/16 08:30 MPV 9.7 fl 06/25/16 08:30 Band Neutrophils % 2 % (0-10) 06/25/16 08:30 Neutrophils (Manual) 63 % (40-80) 06/25/16 08:30 Lymphocytes 18 % (20-50) L 06/25/16 08:30 Monocytes 8 % (2-10) 06/25/16 08:30 Eosinophils 8 % (0-5) H 06/25/16 08:30 Basophils 1 % (0-3) 06/25/16 08:30 Hypochromia 1+ 06/22/16 19:33 Platelet Estimate DECREASED PLATELETS (NORMAL) 06/25/16 08:30 Platelet Morphology NORMAL (NORMAL) 06/25/16 08:30 Anisocytosis 1+ 06/25/16 08:30 RBC Morph Micro Appear ABNORMAL (NORMAL) 06/25/16 08:30 PT 11.9 SECONDS (9.5-11.5) H 06/22/16 19:33 INR 1.19 (0.5-1.4) 06/22/16 19:33 PTT (Actin FS) 31.5 SECONDS (26.0-38.0) 06/22/16 19:33 Specimen Source art 06/22/16 20:03 Sample Site Right Radial 06/22/16 20:03 pH 7.49 (7.35-7.45) H 06/22/16 20:03 pCO2 34.0 mmHg (35.0-45.0) L 06/22/16 20:03 pO2 97.0 mmHg (80.0-100.0) 06/22/16 20:03 HCO3 25.9 mmol/L (20.0-26.0) 06/22/16 20:03 Base Excess 2.8 mmol/L (-3.0-3.0) 06/22/16 20:03 O2 Saturation 98.0 % (92.0-100.0) 06/22/16 20:03 Estuardo Test P 06/22/16 20:03 Vent Rate NA 06/22/16 20:03 Inspired O2 21 06/22/16 20:03 Tidal Volume NA 06/22/16 20:03 PEEP NA 06/22/16 20:03 Pressure (ins/psv/peep) NA 06/22/16 20:03 Critical Value RPINEIRA 06/22/16 20:03 Sodium 139 mEq/L (136-145) 06/25/16 08:30 Potassium 3.9 mEq/L (3.5-5.1) 06/25/16 08:30 Chloride 99 mEq/L (98-107) 06/25/16 08:30 Carbon Dioxide 21.9 mEq/L (21.0-31.0) 06/25/16 08:30 Anion Gap 22.0 (7.0-16.0) H 06/25/16 08:30 BUN 61 mg/dL (7-25) H 06/25/16 08:30 Creatinine 3.7 mg/dL (0.7-1.3) H 06/25/16 08:30 Est GFR ( Amer) 22.6 ml/min (>90) 06/25/16 08:30 Est GFR (Non-Af Amer) 18.7 ml/min 06/25/16 08:30 BUN/Creatinine Ratio 16.5 06/25/16 08:30 Glucose 88 mg/dL (70-105) 06/25/16 08:30 Calcium 10.2 mg/dL (8.6-10.3) 06/25/16 08:30 Phosphorus 5.1 mg/dL (2.5-5.0) H 06/23/16 11:25 Magnesium 2.1 mg/dL (1.9-2.7) 06/23/16 11:25 Total Bilirubin 1.0 mg/dL (0.3-1.0) 06/23/16 11:25 AST 31 U/L (13-39) 06/23/16 11:25 ALT 13 U/L (7-52) 06/23/16 11:25 Alkaline Phosphatase 24 U/L (34-104) L 06/23/16 11:25 Ammonia 129 umol/L (16-53) H 06/25/16 20:44 Troponin I < 0.01 ng/mL (0.01-0.05) L 06/22/16 19:33 B-Natriuretic Peptide 668.0 pg/mL (5.0-100.0) H 06/22/16 19:33 Total Protein 7.7 gm/dL (6.0-8.3) 06/23/16 11:25 Albumin 2.9 gm/dL (4.2-5.5) L 06/23/16 11:25 Globulin 4.8 gm/dL 06/23/16 11:25 Albumin/Globulin Ratio 0.6 (1.0-1.8) L 06/23/16 11:25 Stool Occult Blood POSITIVE (NEGATIVE) 06/24/16 16:00 Random Vancomycin 22.1 ug/mL (5.0-40.0) 06/25/16 08:30 RPR NONREACTIVE (NONREACTIVE) 06/22/16 19:33 Blood Type A POSITIVE 06/22/16 20:41 Antibody Screen NEGATIVE 06/22/16 20:41 Crossmatch See Detail 06/22/16 20:41 - Physical Exam Vitals and I&O: Vital Signs Temp 98.6 F 06/27/16 16:00 Pulse 97 06/27/16 16:00 Resp 20 06/27/16 16:00 BP 121/67 06/27/16 16:00 Pulse Ox 95 06/27/16 16:00 Intake & Output 06/27/16 06/27/16 06/28/16 06:59 18:59 06:59 Intake Total 500 Balance 500 Intake: Oral 500 Other: # Voids 2 Stool Characteristics Formed Brown Active Medications: Current Medications Acetaminophen (Tylenol) 325 mg PO Q6HR PRN PRN Reason: Mild Pain or Fever >101 Stop: 08/22/16 20:30 Acetaminophen/Hydrocodone Bitart ([place] 10 Mg/325 Mg) 1 tab PO Q8H PRN PRN Reason: Pain (Moderate) Stop: 08/22/16 20:30 Last Admin: 06/26/16 14:01 Dose: 1 tab Albuterol/Ipratropium (Duoneb Neb) 3 ml HHN Q2HR PRN PRN Reason: Shortness of Breath or Wheeze Cholecalciferol (Vitamin D3) 2,000 iu PO DAILY [facility] Stop: 08/23/16 08:59 Last Admin: 06/27/16 17:52 Dose: Not Given Diphenhydramine HCl (Benadryl 50 Mg/Ml) 50 mg IM Q8HR PRN PRN Reason: Agitation Stop: 08/25/16 12:10 Docusate Sodium (Colace) 100 mg PO BID [facility] Stop: 08/22/16 16:59 Last Admin: 06/27/16 17:51 Dose: Not Given Epoetin Bernardino (Epogen) 10,000 units SUBQ TuThSa [facility] Stop: 08/22/16 14:29 Last Admin: 06/26/16 14:00 Dose: Not Given Haloperidol Lactate (Haldol) 5 mg IM Q8HR PRN PRN Reason: Agitation Stop: 08/25/16 12:10 Lactulose (Cephulac) 30 gm PO TID [facility] Stop: 08/25/16 13:59 Last Admin: 06/27/16 17:51 Dose: Not Given Levothyroxine Sodium (Synthroid) 0.05 mg PO QDAC [facility] Stop: 08/23/16 07:29 Last Admin: 06/27/16 06:43 Dose: Not Given Lorazepam (Ativan) 1 mg IM Q4HR PRN; Protocol PRN Reason: Agitation Stop: 08/25/16 10:37 Last Admin: 06/26/16 14:01 Dose: 1 mg Miscellaneous (Vancomycin Iv Per Pharmacy) 1 ea [facility] PRN PRN PRN Reason: PROTOCOL Stop: 08/22/16 06:31 Morphine Sulfate (Morphine) 1 mg IV Q4H PRN PRN Reason: SEVERE PAIN Stop: 08/22/16 04:40 Last Admin: 06/23/16 09:50 Dose: 1 mg Ondansetron HCl (Zofran Odt) 4 mg PO Q6HR PRN PRN Reason: Nausea / Vomiting Stop: 08/22/16 20:30 Pantoprazole Sodium (Protonix) 40 mg PO DAILY [facility] Stop: 08/23/16 08:59 Last Admin: 06/27/16 10:26 Dose: Not Given Quetiapine Fumarate (Seroquel) 50 mg PO TID [facility] PRN Reason: Protocol Stop: 08/26/16 08:59 Last Admin: 06/27/16 17:52 Dose: Not Given Rifaximin (Xifaxan) 600 mg PO BID [facility] Stop: 08/25/16 16:59 Last Admin: 06/27/16 17:53 Dose: Not Given Vitamin B Complex/Vit C/Folic Acid (Vitamin B Complex W/Vitamin C) 1 tab PO DAILY [facility] Stop: 08/23/16 08:59 Last Admin: 06/27/16 10:28 Dose: Not Given General: No acute distress HEENT: Atraumatic Neck: Supple Cardiovascular: Regular rate Lungs: Clear to auscultation Abdomen: Bowel sounds, Soft, Obese Assessment/Plan - Problem List Patient Problems: All Active Problems MEDICAL EVALUATION PER DR FRY (Acute) - Assessment Assessment: 1. ANEMIA AND OCCULT GI BLEED. 2. ESRD - HD DEP; PULLED OUT ACCESS LINE. 3. MORBID OBESITY. 4. ALOC WITH ELEVATED NH3 LEVEL - R/O HEP ENCEPH. 5. MILDLY ELEVATED LFT'S - R/O CHRONIC LIVER DISEASE AND CIRRHOSIS. - Plan Plan: 1. AWAIT LIVER LABS. 2. CHECK ABD US. 3. EGD AND COLONOSCOPY OFFERED - PATIENT REFUSING. 4. PSYCH F/U TO DETERMINE ABILITY TO PROVIDE CONSENT. 5. PROTONIX. 6. MONITOR HGB; TRANSFUSE PRN. 7. LACTULOSE AND RIFAXIMIN.
--- NOTE | 2016-06-27 23:48 | Infectious Disease Prog Note ---
Infectious Disease Subjective - Review of Systems Service Date: 06/27/16 Subjective: No change. Infectious Disease Objective - Results Result Diagrams: 06/25/16 08:30 06/25/16 08:30 Recent Labs: Laboratory Last Values WBC 4.6 Th/cmm (4.8-10.8) L 06/25/16 08:30 RBC 2.37 Mil/cmm (4.30-5.70) L 06/25/16 08:30 Hgb 6.9 gm/dL (13.2-17.3) L* 06/25/16 08:30 Hct 20.6 % (39.0-49.0) L* 06/25/16 08:30 MCV 86.6 fl (80-99) 06/25/16 08:30 MCH 29.1 pg (26.0-30.0) 06/25/16 08:30 MCHC Differential 33.5 pg (28.0-36.0) 06/25/16 08:30 RDW 17.0 % (11.5-20.0) 06/25/16 08:30 Plt Count 117 Th/cmm (150-400) L 06/25/16 08:30 MPV 9.7 fl 06/25/16 08:30 Band Neutrophils % 2 % (0-10) 06/25/16 08:30 Neutrophils (Manual) 63 % (40-80) 06/25/16 08:30 Lymphocytes 18 % (20-50) L 06/25/16 08:30 Monocytes 8 % (2-10) 06/25/16 08:30 Eosinophils 8 % (0-5) H 06/25/16 08:30 Basophils 1 % (0-3) 06/25/16 08:30 Hypochromia 1+ 06/22/16 19:33 Platelet Estimate DECREASED PLATELETS (NORMAL) 06/25/16 08:30 Platelet Morphology NORMAL (NORMAL) 06/25/16 08:30 Anisocytosis 1+ 06/25/16 08:30 RBC Morph Micro Appear ABNORMAL (NORMAL) 06/25/16 08:30 PT 11.9 SECONDS (9.5-11.5) H 06/22/16 19:33 INR 1.19 (0.5-1.4) 06/22/16 19:33 PTT (Actin FS) 31.5 SECONDS (26.0-38.0) 06/22/16 19:33 Specimen Source art 06/22/16 20:03 Sample Site Right Radial 06/22/16 20:03 pH 7.49 (7.35-7.45) H 06/22/16 20:03 pCO2 34.0 mmHg (35.0-45.0) L 06/22/16 20:03 pO2 97.0 mmHg (80.0-100.0) 06/22/16 20:03 HCO3 25.9 mmol/L (20.0-26.0) 06/22/16 20:03 Base Excess 2.8 mmol/L (-3.0-3.0) 06/22/16 20:03 O2 Saturation 98.0 % (92.0-100.0) 06/22/16 20:03 Estuardo Test P 06/22/16 20:03 Vent Rate NA 06/22/16 20:03 Inspired O2 21 06/22/16 20:03 Tidal Volume NA 06/22/16 20:03 PEEP NA 06/22/16 20:03 Pressure (ins/psv/peep) NA 06/22/16 20:03 Critical Value RPINEIRA 06/22/16 20:03 Sodium 139 mEq/L (136-145) 06/25/16 08:30 Potassium 3.9 mEq/L (3.5-5.1) 06/25/16 08:30 Chloride 99 mEq/L (98-107) 06/25/16 08:30 Carbon Dioxide 21.9 mEq/L (21.0-31.0) 06/25/16 08:30 Anion Gap 22.0 (7.0-16.0) H 06/25/16 08:30 BUN 61 mg/dL (7-25) H 06/25/16 08:30 Creatinine 3.7 mg/dL (0.7-1.3) H 06/25/16 08:30 Est GFR ( Amer) 22.6 ml/min (>90) 06/25/16 08:30 Est GFR (Non-Af Amer) 18.7 ml/min 06/25/16 08:30 BUN/Creatinine Ratio 16.5 06/25/16 08:30 Glucose 88 mg/dL (70-105) 06/25/16 08:30 Calcium 10.2 mg/dL (8.6-10.3) 06/25/16 08:30 Phosphorus 5.1 mg/dL (2.5-5.0) H 06/23/16 11:25 Magnesium 2.1 mg/dL (1.9-2.7) 06/23/16 11:25 Total Bilirubin 1.0 mg/dL (0.3-1.0) 06/23/16 11:25 AST 31 U/L (13-39) 06/23/16 11:25 ALT 13 U/L (7-52) 06/23/16 11:25 Alkaline Phosphatase 24 U/L (34-104) L 06/23/16 11:25 Ammonia 129 umol/L (16-53) H 06/25/16 20:44 Troponin I < 0.01 ng/mL (0.01-0.05) L 06/22/16 19:33 B-Natriuretic Peptide 668.0 pg/mL (5.0-100.0) H 06/22/16 19:33 Total Protein 7.7 gm/dL (6.0-8.3) 06/23/16 11:25 Albumin 2.9 gm/dL (4.2-5.5) L 06/23/16 11:25 Globulin 4.8 gm/dL 06/23/16 11:25 Albumin/Globulin Ratio 0.6 (1.0-1.8) L 06/23/16 11:25 Stool Occult Blood POSITIVE (NEGATIVE) 06/24/16 16:00 Random Vancomycin 22.1 ug/mL (5.0-40.0) 06/25/16 08:30 RPR NONREACTIVE (NONREACTIVE) 06/22/16 19:33 Blood Type A POSITIVE 06/22/16 20:41 Antibody Screen NEGATIVE 06/22/16 20:41 Crossmatch See Detail 06/22/16 20:41 - Physical Exam Vitals and I&O: Vital Signs Temp 98 F 06/27/16 20:00 Pulse 112 06/27/16 20:00 Resp 19 06/27/16 20:00 BP 112/71 06/27/16 20:00 Pulse Ox 99 06/27/16 20:00 Intake & Output 06/27/16 06/27/16 06/28/16 06:59 18:59 06:59 Intake Total 500 Balance 500 Intake: Oral 500 Other: # Voids 2 Stool Characteristics Formed Brown Active Medications: Current Medications Acetaminophen (Tylenol) 325 mg PO Q6HR PRN PRN Reason: Mild Pain or Fever >101 Stop: 08/22/16 20:30 Acetaminophen/Hydrocodone Bitart ([place] 10 Mg/325 Mg) 1 tab PO Q8H PRN PRN Reason: Pain (Moderate) Stop: 08/22/16 20:30 Last Admin: 06/26/16 14:01 Dose: 1 tab Albuterol/Ipratropium (Duoneb Neb) 3 ml HHN Q2HR PRN PRN Reason: Shortness of Breath or Wheeze Cholecalciferol (Vitamin D3) 2,000 iu PO DAILY [facility] Stop: 08/23/16 08:59 Last Admin: 06/27/16 17:52 Dose: Not Given Diphenhydramine HCl (Benadryl 50 Mg/Ml) 50 mg IM Q8HR PRN PRN Reason: Agitation Stop: 08/25/16 12:10 Docusate Sodium (Colace) 100 mg PO BID [facility] Stop: 08/22/16 16:59 Last Admin: 06/27/16 17:51 Dose: Not Given Epoetin Bernard[place] (Epogen) 10,000 units SUBQ TuThSa [facility] Stop: 08/22/16 14:29 Last Admin: 06/26/16 14:00 Dose: Not Given Haloperidol Lactate (Haldol) 5 mg IM Q8HR PRN PRN Reason: Agitation Stop: 08/25/16 12:10 Lactulose (Cephulac) 30 gm PO TID [facility] Stop: 08/25/16 13:59 Last Admin: 06/27/16 17:51 Dose: Not Given Levothyroxine Sodium (Synthroid) 0.05 mg PO QDAC [facility] Stop: 08/23/16 07:29 Last Admin: 06/27/16 06:43 Dose: Not Given Lorazepam (Ativan) 1 mg IM Q4HR PRN; Protocol PRN Reason: Agitation Stop: 08/25/16 10:37 Last Admin: 06/26/16 14:01 Dose: 1 mg Miscellaneous (Vancomycin Iv Per Pharmacy) 1 ea MC PRN PRN PRN Reason: PROTOCOL Stop: 08/22/16 06:31 Morphine Sulfate (Morphine) 1 mg IV Q4H PRN PRN Reason: SEVERE PAIN Stop: 08/22/16 04:40 Last Admin: 06/23/16 09:50 Dose: 1 mg Ondansetron HCl (Zofran Odt) 4 mg PO Q6HR PRN PRN Reason: Nausea / Vomiting Stop: 08/22/16 20:30 Pantoprazole Sodium (Protonix) 40 mg PO DAILY [facility] Stop: 08/23/16 08:59 Last Admin: 06/27/16 10:26 Dose: Not Given Quetiapine Fumarate (Seroquel) 50 mg PO TID [facility] PRN Reason: Protocol Stop: 08/26/16 08:59 Last Admin: 06/27/16 17:52 Dose: Not Given Rifaximin (Xifaxan) 600 mg PO BID [facility] Stop: 08/25/16 16:59 Last Admin: 06/27/16 17:53 Dose: Not Given Vitamin B Complex/Vit C/Folic Acid (Vitamin B Complex W/Vitamin C) 1 tab PO DAILY [facility] Stop: 08/23/16 08:59 Last Admin: 06/27/16 10:28 Dose: Not Given General: no acute distress, well developed, well nourished, cachectic HEENT: atraumatic, normocephalic, PERRLA Neck: supple Cardiovascular: S1S2, no regular Lungs: no clear to auscultation bilaterally, no clear to percussion Abdomen: soft, no tender, no distended Extremities: no cyanosis, no clubbing, no edema Neurological: awake, alert, oriented Skin: intact Infectious Disease Assmt/Plan - Problem List Patient Problems: All Active Problems MEDICAL EVALUATION PER DR FRY (Acute) - Assessment Assessment: 1. Cellulitis of legs. 2. Lymphedema of legs. 3. CKD 5 on HD. 4. Morbid obesity. - Plan Plan: Continue the skin care and vanco IV.
--- NOTE | 2016-06-27 23:53 | Progress Notes ---
SUBJECTIVE: Chart reviewed and the patient interviewed. Also discussed the patient's condition with the staff and reviewed records and labs. The patient is still extremely irritable and is still severely agitated. The patient also is restless and he is yelling and screaming. The patient also is having difficulty with his mood. He also is still having yelling and screaming episodes. ASSESSMENT: The patient is still agitated and psychotic. TREATMENT PLAN: We will start the patient on Seroquel 50 mg 3 times a day. Also, we will continue monitoring his behavior and his condition closely. JOB# [id number]
[2016-06-28] MEDS: Hydrocodone/APAP 10 mg/325 mg Tab PO PRN ×2 (02:07→16:46)
[2016-06-28 06:10] LABS: ALB/GLOB RATIO 0.6 (1.0-1.8); BILIRUBIN,DIRECT 0.7 mg/dL (0.0-0.2); BILIRUBIN,TOTAL 1.4 mg/dL (0.3-1.0)
[2016-06-28 07:58] LABS: INR 1.22 (0.5-1.4); PROTHROMBIN TIME (TEST) 12.3 SECONDS (9.5-11.5)
[2016-06-28] MEDS: Levothyroxine 0.05 Mg Tab PO SCH (08:30)
[2016-06-28] MEDS: Pantoprazole 40 mg EC Tab PO SCH (08:31)
[2016-06-28] MEDS: Lactulose 10 Gm/15 mL 30mL UDC PO SCH ×3 (08:31→20:47)
[2016-06-28] MEDS: Vitamin B Complex w/Vitamin C Tab PO SCH (08:31)
--- NOTE | 2016-06-28 09:18 | General Progress Note ---
Subjective - Review of Systems Subjective: pt refusing evrything pulled out vascular access yesterday spoke to dr forrest yesterday renal notes noted Objective - Results Result Diagrams: 06/25/16 08:30 06/25/16 08:30 Recent Labs: Laboratory Last Values WBC 4.6 Th/cmm (4.8-10.8) L 06/25/16 08:30 RBC 2.37 Mil/cmm (4.30-5.70) L 06/25/16 08:30 Hgb 6.9 gm/dL (13.2-17.3) L* 06/25/16 08:30 Hct 20.6 % (39.0-49.0) L* 06/25/16 08:30 MCV 86.6 fl (80-99) 06/25/16 08:30 MCH 29.1 pg (26.0-30.0) 06/25/16 08:30 MCHC Differential 33.5 pg (28.0-36.0) 06/25/16 08:30 RDW 17.0 % (11.5-20.0) 06/25/16 08:30 Plt Count 117 Th/cmm (150-400) L 06/25/16 08:30 MPV 9.7 fl 06/25/16 08:30 Band Neutrophils % 2 % (0-10) 06/25/16 08:30 Neutrophils (Manual) 63 % (40-80) 06/25/16 08:30 Lymphocytes 18 % (20-50) L 06/25/16 08:30 Monocytes 8 % (2-10) 06/25/16 08:30 Eosinophils 8 % (0-5) H 06/25/16 08:30 Basophils 1 % (0-3) 06/25/16 08:30 Hypochromia 1+ 06/22/16 19:33 Platelet Estimate DECREASED PLATELETS (NORMAL) 06/25/16 08:30 Platelet Morphology NORMAL (NORMAL) 06/25/16 08:30 Anisocytosis 1+ 06/25/16 08:30 RBC Morph Micro Appear ABNORMAL (NORMAL) 06/25/16 08:30 PT 12.3 SECONDS (9.5-11.5) H 06/28/16 04:38 INR 1.22 (0.5-1.4) 06/28/16 04:38 PTT (Actin FS) 28.3 SECONDS (26.0-38.0) 06/28/16 04:38 Specimen Source art 06/22/16 20:03 Sample Site Right Radial 06/22/16 20:03 pH 7.49 (7.35-7.45) H 06/22/16 20:03 pCO2 34.0 mmHg (35.0-45.0) L 06/22/16 20:03 pO2 97.0 mmHg (80.0-100.0) 06/22/16 20:03 HCO3 25.9 mmol/L (20.0-26.0) 06/22/16 20:03 Base Excess 2.8 mmol/L (-3.0-3.0) 06/22/16 20:03 O2 Saturation 98.0 % (92.0-100.0) 06/22/16 20:03 Esutardo Test P 06/22/16 20:03 Vent Rate NA 06/22/16 20:03 Inspired O2 21 06/22/16 20:03 Tidal Volume NA 06/22/16 20:03 PEEP NA 06/22/16 20:03 Pressure (ins/psv/peep) NA 06/22/16 20:03 Critical Value RPINEIRA 06/22/16 20:03 Sodium 139 mEq/L (136-145) 06/25/16 08:30 Potassium 3.9 mEq/L (3.5-5.1) 06/25/16 08:30 Chloride 99 mEq/L (98-107) 06/25/16 08:30 Carbon Dioxide 21.9 mEq/L (21.0-31.0) 06/25/16 08:30 Anion Gap 22.0 (7.0-16.0) H 06/25/16 08:30 BUN 61 mg/dL (7-25) H 06/25/16 08:30 Creatinine 3.7 mg/dL (0.7-1.3) H 06/25/16 08:30 Est GFR ( Amer) 22.6 ml/min (>90) 06/25/16 08:30 Est GFR (Non-Af Amer) 18.7 ml/min 06/25/16 08:30 BUN/Creatinine Ratio 16.5 06/25/16 08:30 Glucose 88 mg/dL (70-105) 06/25/16 08:30 Calcium 10.2 mg/dL (8.6-10.3) 06/25/16 08:30 Phosphorus 5.1 mg/dL (2.5-5.0) H 06/23/16 11:25 Magnesium 2.1 mg/dL (1.9-2.7) 06/23/16 11:25 Total Bilirubin 1.4 mg/dL (0.3-1.0) H 06/28/16 04:38 Direct Bilirubin 0.70 mg/dL (0.0-0.2) H 06/28/16 04:38 AST 27 U/L (13-39) 06/28/16 04:38 ALT 14 U/L (7-52) 06/28/16 04:38 Alkaline Phosphatase 30 U/L (34-104) L 06/28/16 04:38 Ammonia 129 umol/L (16-53) H 06/25/16 20:44 Troponin I < 0.01 ng/mL (0.01-0.05) L 06/22/16 19:33 B-Natriuretic Peptide 668.0 pg/mL (5.0-100.0) H 06/22/16 19:33 Total Protein 8.3 gm/dL (6.0-8.3) 06/28/16 04:38 Albumin 3.2 gm/dL (4.2-5.5) L 06/28/16 04:38 Globulin 5.1 gm/dL 06/28/16 04:38 Albumin/Globulin Ratio 0.6 (1.0-1.8) L 06/28/16 04:38 Stool Occult Blood POSITIVE (NEGATIVE) 06/24/16 16:00 Random Vancomycin 13.4 ug/mL (5.0-40.0) 06/28/16 04:38 RPR NONREACTIVE (NONREACTIVE) 06/22/16 19:33 Blood Type A POSITIVE 06/28/16 04:38 Antibody Screen NEGATIVE 06/28/16 04:38 Crossmatch See Detail 06/28/16 04:38 - Physical Exam Vitals and I&O: Vital Signs Temp 97.8 F 06/28/16 07:45 Pulse 113 06/28/16 07:45 Resp 19 06/28/16 07:45 BP 65/27 06/28/16 07:45 Pulse Ox 93 02/09/17 07:45 Intake & Output 06/27/16 06/28/16 06/28/16 18:59 06:59 18:59 Intake Total 500 500 Balance 500 500 Intake: Oral 500 500 Other: # Voids 2 Stool Characteristics Formed Brown Active Medications: Current Medications Acetaminophen (Tylenol) 325 mg PO Q6HR PRN PRN Reason: Mild Pain or Fever >101 Stop: 08/22/16 20:30 Acetaminophen/Hydrocodone Bitart ([place] 10 Mg/325 Mg) 1 tab PO Q8H PRN PRN Reason: Pain (Moderate) Stop: 08/22/16 20:30 Last Admin: 06/28/16 02:07 Dose: 1 tab Albuterol/Ipratropium (Duoneb Neb) 3 ml HHN Q2HR PRN PRN Reason: Shortness of Breath or Wheeze Cholecalciferol (Vitamin D3) 2,000 iu PO DAILY [facility] Stop: 08/23/16 08:59 Last Admin: 06/27/16 17:52 Dose: Not Given Diphenhydramine HCl (Benadryl 50 Mg/Ml) 50 mg IM Q8HR PRN PRN Reason: Agitation Stop: 08/25/16 12:10 Docusate Sodium (Colace) 100 mg PO BID [facility] Stop: 08/22/16 16:59 Last Admin: 06/28/16 08:31 Dose: Not Given Epoetin [place] (Epogen) 10,000 units SUBQ TuThSa [facility] Stop: 08/22/16 14:29 Last Admin: 06/26/16 14:00 Dose: Not Given Haloperidol Lactate (Haldol) 5 mg IM Q8HR PRN PRN Reason: Agitation Stop: 08/25/16 12:10 Lactulose (Cephulac) 30 gm PO TID [facility] Stop: 08/25/16 13:59 Last Admin: 06/28/16 08:31 Dose: Not Given Levothyroxine Sodium (Synthroid) 0.05 mg PO QDAC [facility] Stop: 08/23/16 07:29 Last Admin: 06/28/16 08:30 Dose: Not Given Lorazepam (Ativan) 1 mg IM Q4HR PRN; Protocol PRN Reason: Agitation Stop: 08/25/16 10:37 Last Admin: 06/26/16 14:01 Dose: 1 mg Miscellaneous (Vancomycin Iv Per Pharmacy) 1 ea MC PRN PRN PRN Reason: PROTOCOL Stop: 08/22/16 06:31 Morphine Sulfate (Morphine) 1 mg IV Q4H PRN PRN Reason: SEVERE PAIN Stop: 08/22/16 04:40 Last Admin: 06/23/16 09:50 Dose: 1 mg Ondansetron HCl (Zofran Odt) 4 mg PO Q6HR PRN PRN Reason: Nausea / Vomiting Stop: 08/22/16 20:30 Pantoprazole Sodium (Protonix) 40 mg PO DAILY [facility] Stop: 08/23/16 08:59 Last Admin: 06/28/16 08:31 Dose: Not Given Quetiapine Fumarate (Seroquel) 50 mg PO TID [facility] PRN Reason: Protocol Stop: 08/26/16 08:59 Last Admin: 06/28/16 08:31 Dose: Not Given Rifaximin (Xifaxan) 600 mg PO BID [facility] Stop: 08/25/16 16:59 Last Admin: 06/28/16 08:31 Dose: Not Given Vitamin B Complex/Vit C/Folic Acid (Vitamin B Complex W/Vitamin C) 1 tab PO DAILY [facility] Stop: 08/23/16 08:59 Last Admin: 06/28/16 08:31 Dose: Not Given Assessment/Plan - Problem List Patient Problems: All Active Problems MEDICAL EVALUATION PER DR FRY (Acute) - Assessment Assessment: 1. Cellulitis of legs. 2. Lymphedema of legs. 3. CKD 5 on HD. 4. Morbid obesity. 5 anemia 6 gi bleed 7 psychosis - Plan Plan: ivabx follow up labs id consult
--- NOTE | 2016-06-28 12:07 | Infectious Disease Prog Note ---
Infectious Disease Subjective - Review of Systems Service Date: 06/28/16 Subjective: No change. Infectious Disease Objective - Results Result Diagrams: 06/25/16 08:30 06/25/16 08:30 Recent Labs: Laboratory Last Values WBC 4.6 Th/cmm (4.8-10.8) L 06/25/16 08:30 RBC 2.37 Mil/cmm (4.30-5.70) L 06/25/16 08:30 Hgb 6.9 gm/dL (13.2-17.3) L* 06/25/16 08:30 Hct 20.6 % (39.0-49.0) L* 06/25/16 08:30 MCV 86.6 fl (80-99) 06/25/16 08:30 MCH 29.1 pg (26.0-30.0) 06/25/16 08:30 MCHC Differential 33.5 pg (28.0-36.0) 06/25/16 08:30 RDW 17.0 % (11.5-20.0) 06/25/16 08:30 Plt Count 117 Th/cmm (150-400) L 06/25/16 08:30 MPV 9.7 fl 06/25/16 08:30 Band Neutrophils % 2 % (0-10) 06/25/16 08:30 Neutrophils (Manual) 63 % (40-80) 06/25/16 08:30 Lymphocytes 18 % (20-50) L 06/25/16 08:30 Monocytes 8 % (2-10) 06/25/16 08:30 Eosinophils 8 % (0-5) H 06/25/16 08:30 Basophils 1 % (0-3) 06/25/16 08:30 Hypochromia 1+ 06/22/16 19:33 Platelet Estimate DECREASED PLATELETS (NORMAL) 06/25/16 08:30 Platelet Morphology NORMAL (NORMAL) 06/25/16 08:30 Anisocytosis 1+ 06/25/16 08:30 RBC Morph Micro Appear ABNORMAL (NORMAL) 06/25/16 08:30 PT 12.3 SECONDS (9.5-11.5) H 06/28/16 04:38 INR 1.22 (0.5-1.4) 06/28/16 04:38 PTT (Actin FS) 28.3 SECONDS (26.0-38.0) 06/28/16 04:38 Specimen Source art 06/22/16 20:03 Sample Site Right Radial 06/22/16 20:03 pH 7.49 (7.35-7.45) H 06/22/16 20:03 pCO2 34.0 mmHg (35.0-45.0) L 06/22/16 20:03 pO2 97.0 mmHg (80.0-100.0) 06/22/16 20:03 HCO3 25.9 mmol/L (20.0-26.0) 06/22/16 20:03 Base Excess 2.8 mmol/L (-3.0-3.0) 06/22/16 20:03 O2 Saturation 98.0 % (92.0-100.0) 06/22/16 20:03 Estuardo Test P 06/22/16 20:03 Vent Rate NA 06/22/16 20:03 Inspired O2 21 06/22/16 20:03 Tidal Volume NA 06/22/16 20:03 PEEP NA 06/22/16 20:03 Pressure (ins/psv/peep) NA 06/22/16 20:03 Critical Value RPINEIRA 06/22/16 20:03 Sodium 139 mEq/L (136-145) 06/25/16 08:30 Potassium 3.9 mEq/L (3.5-5.1) 06/25/16 08:30 Chloride 99 mEq/L (98-107) 06/25/16 08:30 Carbon Dioxide 21.9 mEq/L (21.0-31.0) 06/25/16 08:30 Anion Gap 22.0 (7.0-16.0) H 06/25/16 08:30 BUN 61 mg/dL (7-25) H 06/25/16 08:30 Creatinine 3.7 mg/dL (0.7-1.3) H 06/25/16 08:30 Est GFR ( Amer) 22.6 ml/min (>90) 06/25/16 08:30 Est GFR (Non-Af Amer) 18.7 ml/min 06/25/16 08:30 BUN/Creatinine Ratio 16.5 06/25/16 08:30 Glucose 88 mg/dL (70-105) 06/25/16 08:30 Calcium 10.2 mg/dL (8.6-10.3) 06/25/16 08:30 Phosphorus 5.1 mg/dL (2.5-5.0) H 06/23/16 11:25 Magnesium 2.1 mg/dL (1.9-2.7) 06/23/16 11:25 Total Bilirubin 1.4 mg/dL (0.3-1.0) H 06/28/16 04:38 Direct Bilirubin 0.70 mg/dL (0.0-0.2) H 06/28/16 04:38 AST 27 U/L (13-39) 06/28/16 04:38 ALT 14 U/L (7-52) 06/28/16 04:38 Alkaline Phosphatase 30 U/L (34-104) L 06/28/16 04:38 Ammonia 129 umol/L (16-53) H 06/25/16 20:44 Troponin I < 0.01 ng/mL (0.01-0.05) L 06/22/16 19:33 B-Natriuretic Peptide 668.0 pg/mL (5.0-100.0) H 06/22/16 19:33 Total Protein 8.3 gm/dL (6.0-8.3) 06/28/16 04:38 Albumin 3.2 gm/dL (4.2-5.5) L 06/28/16 04:38 Globulin 5.1 gm/dL 06/28/16 04:38 Albumin/Globulin Ratio 0.6 (1.0-1.8) L 06/28/16 04:38 Stool Occult Blood POSITIVE (NEGATIVE) 06/24/16 16:00 Random Vancomycin 13.4 ug/mL (5.0-40.0) 06/28/16 04:38 RPR NONREACTIVE (NONREACTIVE) 06/22/16 19:33 Blood Type A POSITIVE 06/28/16 04:38 Antibody Screen NEGATIVE 06/28/16 04:38 Crossmatch See Detail 06/28/16 04:38 - Physical Exam Vitals and I&O: Vital Signs Temp 97.9 F 06/28/16 11:59 Pulse 119 06/28/16 11:59 Resp 18 06/28/16 11:59 BP 107/60 06/28/16 11:59 Pulse Ox 97 06/28/16 11:59 Intake & Output 06/27/16 06/28/16 06/28/16 18:59 06:59 18:59 Intake Total 500 500 Balance 500 500 Intake: Oral 500 500 Other: # Voids 2 Stool Characteristics Formed Brown Active Medications: Current Medications Acetaminophen (Tylenol) 325 mg PO Q6HR PRN PRN Reason: Mild Pain or Fever >101 Stop: 08/22/16 20:30 Acetaminophen/Hydrocodone Bitart ([place] 10 Mg/325 Mg) 1 tab PO Q8H PRN PRN Reason: Pain (Moderate) Stop: 08/22/16 20:30 Last Admin: 06/28/16 02:07 Dose: 1 tab Albuterol/Ipratropium (Duoneb Neb) 3 ml HHN Q2HR PRN PRN Reason: Shortness of Breath or Wheeze Cholecalciferol (Vitamin D3) 2,000 iu PO DAILY [facility] Stop: 08/23/16 08:59 Last Admin: 06/27/16 17:52 Dose: Not Given Diphenhydramine HCl (Benadryl 50 Mg/Ml) 50 mg IM Q8HR PRN PRN Reason: Agitation Stop: 08/25/16 12:10 Docusate Sodium (Colace) 100 mg PO BID [facility] Stop: 08/22/16 16:59 Last Admin: 06/28/16 08:31 Dose: Not Given Epoetin [place] (Epogen) 10,000 units SUBQ TuTa [facility] Stop: 08/22/16 14:29 Last Admin: 06/26/16 14:00 Dose: Not Given Haloperidol Lactate (Haldol) 5 mg IM Q8HR PRN PRN Reason: Agitation Stop: 08/25/16 12:10 Vancomycin HCl 1 gm/ Sodium (Chloride) 250 mls @ 165 mls/hr IV 1400 ONE Stop: 06/28/16 15:30 Lactulose (Cephulac) 30 gm PO TID [facility] Stop: 08/25/16 13:59 Last Admin: 06/28/16 08:31 Dose: Not Given Levothyroxine Sodium (Synthroid) 0.05 mg PO QDAC [facility] Stop: 08/23/16 07:29 Last Admin: 06/28/16 08:30 Dose: Not Given Lorazepam (Ativan) 1 mg IM Q4HR PRN; Protocol PRN Reason: Agitation Stop: 08/25/16 10:37 Last Admin: 06/26/16 14:01 Dose: 1 mg Miscellaneous (Vancomycin Iv Per Pharmacy) 1 ea MC PRN PRN PRN Reason: PROTOCOL Stop: 08/22/16 06:31 Morphine Sulfate (Morphine) 1 mg IV Q4H PRN PRN Reason: SEVERE PAIN Stop: 08/22/16 04:40 Last Admin: 06/23/16 09:50 Dose: 1 mg Ondansetron HCl (Zofran Odt) 4 mg PO Q6HR PRN PRN Reason: Nausea / Vomiting Stop: 08/22/16 20:30 Pantoprazole Sodium (Protonix) 40 mg PO DAILY [facility] Stop: 08/23/16 08:59 Last Admin: 06/28/16 08:31 Dose: Not Given Quetiapine Fumarate (Seroquel) 50 mg PO TID [facility] PRN Reason: Protocol Stop: 08/26/16 08:59 Last Admin: 06/28/16 08:31 Dose: Not Given Rifaximin (Xifaxan) 600 mg PO BID [facility] Stop: 08/25/16 16:59 Last Admin: 06/28/16 08:31 Dose: Not Given Vitamin B Complex/Vit C/Folic Acid (Vitamin B Complex W/Vitamin C) 1 tab PO DAILY [facility] Stop: 08/23/16 08:59 Last Admin: 06/28/16 08:31 Dose: Not Given General: no acute distress, other (Obese) HEENT: atraumatic, normocephalic, PERRLA, EOMI, moist mucous membrane Neck: supple, no thyromegaly Cardiovascular: S1S2, no regular Lungs: clear to auscultation bilaterally, clear to percussion Abdomen: soft, no tender, no distended Extremities: no cyanosis, no clubbing, no edema Neurological: awake, alert, oriented Skin: intact Infectious Disease Assmt/Plan - Problem List Patient Problems: All Active Problems MEDICAL EVALUATION PER DR FRY (Acute) - Assessment Assessment: 1. Cellulitis of legs. improved. 2. Lymphedema of legs. 3. CKD 5 on HD. 4. Morbid obesity. - Plan Plan: Continue the skin care and dc vanco IV.
--- NOTE | 2016-06-28 12:08 | Infectious Disease Prog Note ---
Infectious Disease Subjective - Review of Systems Service Date: 06/28/16 Subjective: No change. Infectious Disease Objective - Results Result Diagrams: 06/25/16 08:30 06/25/16 08:30 Recent Labs: Laboratory Last Values WBC 4.6 Th/cmm (4.8-10.8) L 06/25/16 08:30 RBC 2.37 Mil/cmm (4.30-5.70) L 06/25/16 08:30 Hgb 6.9 gm/dL (13.2-17.3) L* 06/25/16 08:30 Hct 20.6 % (39.0-49.0) L* 06/25/16 08:30 MCV 86.6 fl (80-99) 06/25/16 08:30 MCH 29.1 pg (26.0-30.0) 06/25/16 08:30 MCHC Differential 33.5 pg (28.0-36.0) 06/25/16 08:30 RDW 17.0 % (11.5-20.0) 06/25/16 08:30 Plt Count 117 Th/cmm (150-400) L 06/25/16 08:30 MPV 9.7 fl 06/25/16 08:30 Band Neutrophils % 2 % (0-10) 06/25/16 08:30 Neutrophils (Manual) 63 % (40-80) 06/25/16 08:30 Lymphocytes 18 % (20-50) L 06/25/16 08:30 Monocytes 8 % (2-10) 06/25/16 08:30 Eosinophils 8 % (0-5) H 06/25/16 08:30 Basophils 1 % (0-3) 06/25/16 08:30 Hypochromia 1+ 06/22/16 19:33 Platelet Estimate DECREASED PLATELETS (NORMAL) 06/25/16 08:30 Platelet Morphology NORMAL (NORMAL) 06/25/16 08:30 Anisocytosis 1+ 06/25/16 08:30 RBC Morph Micro Appear ABNORMAL (NORMAL) 06/25/16 08:30 PT 12.3 SECONDS (9.5-11.5) H 06/28/16 04:38 INR 1.22 (0.5-1.4) 06/28/16 04:38 PTT (Actin FS) 28.3 SECONDS (26.0-38.0) 06/28/16 04:38 Specimen Source art 06/22/16 20:03 Sample Site Right Radial 06/22/16 20:03 pH 7.49 (7.35-7.45) H 06/22/16 20:03 pCO2 34.0 mmHg (35.0-45.0) L 06/22/16 20:03 pO2 97.0 mmHg (80.0-100.0) 06/22/16 20:03 HCO3 25.9 mmol/L (20.0-26.0) 06/22/16 20:03 Base Excess 2.8 mmol/L (-3.0-3.0) 06/22/16 20:03 O2 Saturation 98.0 % (92.0-100.0) 06/22/16 20:03 Estuardo Test P 06/22/16 20:03 Vent Rate NA 06/22/16 20:03 Inspired O2 21 06/22/16 20:03 Tidal Volume NA 06/22/16 20:03 PEEP NA 06/22/16 20:03 Pressure (ins/psv/peep) NA 06/22/16 20:03 Critical Value RPINEIRA 06/22/16 20:03 Sodium 139 mEq/L (136-145) 06/25/16 08:30 Potassium 3.9 mEq/L (3.5-5.1) 06/25/16 08:30 Chloride 99 mEq/L (98-107) 06/25/16 08:30 Carbon Dioxide 21.9 mEq/L (21.0-31.0) 06/25/16 08:30 Anion Gap 22.0 (7.0-16.0) H 06/25/16 08:30 BUN 61 mg/dL (7-25) H 06/25/16 08:30 Creatinine 3.7 mg/dL (0.7-1.3) H 06/25/16 08:30 Est GFR ( Amer) 22.6 ml/min (>90) 06/25/16 08:30 Est GFR (Non-Af Amer) 18.7 ml/min 06/25/16 08:30 BUN/Creatinine Ratio 16.5 06/25/16 08:30 Glucose 88 mg/dL (70-105) 06/25/16 08:30 Calcium 10.2 mg/dL (8.6-10.3) 06/25/16 08:30 Phosphorus 5.1 mg/dL (2.5-5.0) H 06/23/16 11:25 Magnesium 2.1 mg/dL (1.9-2.7) 06/23/16 11:25 Total Bilirubin 1.4 mg/dL (0.3-1.0) H 06/28/16 04:38 Direct Bilirubin 0.70 mg/dL (0.0-0.2) H 06/28/16 04:38 AST 27 U/L (13-39) 06/28/16 04:38 ALT 14 U/L (7-52) 06/28/16 04:38 Alkaline Phosphatase 30 U/L (34-104) L 06/28/16 04:38 Ammonia 129 umol/L (16-53) H 06/25/16 20:44 Troponin I < 0.01 ng/mL (0.01-0.05) L 06/22/16 19:33 B-Natriuretic Peptide 668.0 pg/mL (5.0-100.0) H 06/22/16 19:33 Total Protein 8.3 gm/dL (6.0-8.3) 06/28/16 04:38 Albumin 3.2 gm/dL (4.2-5.5) L 06/28/16 04:38 Globulin 5.1 gm/dL 06/28/16 04:38 Albumin/Globulin Ratio 0.6 (1.0-1.8) L 06/28/16 04:38 Stool Occult Blood POSITIVE (NEGATIVE) 06/24/16 16:00 Random Vancomycin 13.4 ug/mL (5.0-40.0) 06/28/16 04:38 RPR NONREACTIVE (NONREACTIVE) 06/22/16 19:33 Blood Type A POSITIVE 06/28/16 04:38 Antibody Screen NEGATIVE 06/28/16 04:38 Crossmatch See Detail 06/28/16 04:38 - Physical Exam Vitals and I&O: Vital Signs Temp 97.9 F 06/28/16 11:59 Pulse 119 06/28/16 11:59 Resp 18 06/28/16 11:59 BP 107/60 06/28/16 11:59 Pulse Ox 97 06/28/16 11:59 Intake & Output 06/27/16 06/28/16 06/28/16 18:59 06:59 18:59 Intake Total 500 500 Balance 500 500 Intake: Oral 500 500 Other: # Voids 2 Stool Characteristics Formed Brown Active Medications: Current Medications Acetaminophen (Tylenol) 325 mg PO Q6HR PRN PRN Reason: Mild Pain or Fever >101 Stop: 08/22/16 20:30 Acetaminophen/Hydrocodone Bitart ([place] 10 Mg/325 Mg) 1 tab PO Q8H PRN PRN Reason: Pain (Moderate) Stop: 08/22/16 20:30 Last Admin: 06/28/16 02:07 Dose: 1 tab Albuterol/Ipratropium (Duoneb Neb) 3 ml HHN Q2HR PRN PRN Reason: Shortness of Breath or Wheeze Cholecalciferol (Vitamin D3) 2,000 iu PO DAILY [facility] Stop: 08/23/16 08:59 Last Admin: 06/27/16 17:52 Dose: Not Given Diphenhydramine HCl (Benadryl 50 Mg/Ml) 50 mg IM Q8HR PRN PRN Reason: Agitation Stop: 08/25/16 12:10 Docusate Sodium (Colace) 100 mg PO BID [facility] Stop: 08/22/16 16:59 Last Admin: 06/28/16 08:31 Dose: Not Given Epoetin Bernardino (Epogen) 10,000 units SUBQ TuTa [facility] Stop: 08/22/16 14:29 Last Admin: 06/26/16 14:00 Dose: Not Given Haloperidol Lactate (Haldol) 5 mg IM Q8HR PRN PRN Reason: Agitation Stop: 08/25/16 12:10 Lactulose (Cephulac) 30 gm PO TID [facility] Stop: 08/25/16 13:59 Last Admin: 06/28/16 08:31 Dose: Not Given Levothyroxine Sodium (Synthroid) 0.05 mg PO QDAC [facility] Stop: 08/23/16 07:29 Last Admin: 06/28/16 08:30 Dose: Not Given Lorazepam (Ativan) 1 mg IM Q4HR PRN; Protocol PRN Reason: Agitation Stop: 08/25/16 10:37 Last Admin: 06/26/16 14:01 Dose: 1 mg Morphine Sulfate (Morphine) 1 mg IV Q4H PRN PRN Reason: SEVERE PAIN Stop: 08/22/16 04:40 Last Admin: 06/23/16 09:50 Dose: 1 mg Ondansetron HCl (Zofran Odt) 4 mg PO Q6HR PRN PRN Reason: Nausea / Vomiting Stop: 08/22/16 20:30 Pantoprazole Sodium (Protonix) 40 mg PO DAILY [facility] Stop: 08/23/16 08:59 Last Admin: 06/28/16 08:31 Dose: Not Given Quetiapine Fumarate (Seroquel) 50 mg PO TID [facility] PRN Reason: Protocol Stop: 08/26/16 08:59 Last Admin: 06/28/16 08:31 Dose: Not Given Rifaximin (Xifaxan) 600 mg PO BID [facility] Stop: 08/25/16 16:59 Last Admin: 06/28/16 08:31 Dose: Not Given Vitamin B Complex/Vit C/Folic Acid (Vitamin B Complex W/Vitamin C) 1 tab PO DAILY [facility] Stop: 08/23/16 08:59 Last Admin: 06/28/16 08:31 Dose: Not Given General: no acute distress, other (Obese) HEENT: atraumatic, normocephalic Neck: supple, no thyromegaly Cardiovascular: S1S2, regular Lungs: clear to auscultation bilaterally, clear to percussion Abdomen: soft, no tender, no distended Extremities: no cyanosis, no clubbing, no edema Neurological: awake, alert, oriented Skin: intact Infectious Disease Assmt/Plan - Problem List Patient Problems: All Active Problems MEDICAL EVALUATION PER DR FRY (Acute) - Assessment Assessment: 1. Cellulitis of legs. improved. 2. Lymphedema of legs. 3. CKD 5 on HD. 4. Morbid obesity. - Plan Plan: Continue the skin care and dc vanco IV.
--- NOTE | 2016-06-28 12:57 | General Progress Note ---
Subjective - Review of Systems Service Date: 06/28/16 Subjective: EVENTS NOTED MORE CONFUSED AND LETHARGIC TODAY Objective - Results Result Diagrams: 06/25/16 08:30 06/25/16 08:30 Recent Labs: Laboratory Last Values WBC 4.6 Th/cmm (4.8-10.8) L 06/25/16 08:30 RBC 2.37 Mil/cmm (4.30-5.70) L 06/25/16 08:30 Hgb 6.9 gm/dL (13.2-17.3) L* 06/25/16 08:30 Hct 20.6 % (39.0-49.0) L* 06/25/16 08:30 MCV 86.6 fl (80-99) 06/25/16 08:30 MCH 29.1 pg (26.0-30.0) 06/25/16 08:30 MCHC Differential 33.5 pg (28.0-36.0) 06/25/16 08:30 RDW 17.0 % (11.5-20.0) 06/25/16 08:30 Plt Count 117 Th/cmm (150-400) L 06/25/16 08:30 MPV 9.7 fl 06/25/16 08:30 Band Neutrophils % 2 % (0-10) 06/25/16 08:30 Neutrophils (Manual) 63 % (40-80) 06/25/16 08:30 Lymphocytes 18 % (20-50) L 06/25/16 08:30 Monocytes 8 % (2-10) 06/25/16 08:30 Eosinophils 8 % (0-5) H 06/25/16 08:30 Basophils 1 % (0-3) 06/25/16 08:30 Hypochromia 1+ 06/22/16 19:33 Platelet Estimate DECREASED PLATELETS (NORMAL) 06/25/16 08:30 Platelet Morphology NORMAL (NORMAL) 06/25/16 08:30 Anisocytosis 1+ 06/25/16 08:30 RBC Morph Micro Appear ABNORMAL (NORMAL) 06/25/16 08:30 PT 12.3 SECONDS (9.5-11.5) H 06/28/16 04:38 INR 1.22 (0.5-1.4) 06/28/16 04:38 PTT (Actin FS) 28.3 SECONDS (26.0-38.0) 06/28/16 04:38 Specimen Source art 06/22/16 20:03 Sample Site Right Radial 06/22/16 20:03 pH 7.49 (7.35-7.45) H 06/22/16 20:03 pCO2 34.0 mmHg (35.0-45.0) L 06/22/16 20:03 pO2 97.0 mmHg (80.0-100.0) 06/22/16 20:03 HCO3 25.9 mmol/L (20.0-26.0) 06/22/16 20:03 Base Excess 2.8 mmol/L (-3.0-3.0) 06/22/16 20:03 O2 Saturation 98.0 % (92.0-100.0) 06/22/16 20:03 Estuardo Test P 06/22/16 20:03 Vent Rate NA 06/22/16 20:03 Inspired O2 21 06/22/16 20:03 Tidal Volume NA 06/22/16 20:03 PEEP NA 06/22/16 20:03 Pressure (ins/psv/peep) NA 06/22/16 20:03 Critical Value RPINEIRA 06/22/16 20:03 Sodium 139 mEq/L (136-145) 06/25/16 08:30 Potassium 3.9 mEq/L (3.5-5.1) 06/25/16 08:30 Chloride 99 mEq/L (98-107) 06/25/16 08:30 Carbon Dioxide 21.9 mEq/L (21.0-31.0) 06/25/16 08:30 Anion Gap 22.0 (7.0-16.0) H 06/25/16 08:30 BUN 61 mg/dL (7-25) H 06/25/16 08:30 Creatinine 3.7 mg/dL (0.7-1.3) H 06/25/16 08:30 Est GFR ( Amer) 22.6 ml/min (>90) 06/25/16 08:30 Est GFR (Non-Af Amer) 18.7 ml/min 06/25/16 08:30 BUN/Creatinine Ratio 16.5 06/25/16 08:30 Glucose 88 mg/dL (70-105) 06/25/16 08:30 Calcium 10.2 mg/dL (8.6-10.3) 06/25/16 08:30 Phosphorus 5.1 mg/dL (2.5-5.0) H 06/23/16 11:25 Magnesium 2.1 mg/dL (1.9-2.7) 06/23/16 11:25 Total Bilirubin 1.4 mg/dL (0.3-1.0) H 06/28/16 04:38 Direct Bilirubin 0.70 mg/dL (0.0-0.2) H 06/28/16 04:38 AST 27 U/L (13-39) 06/28/16 04:38 ALT 14 U/L (7-52) 06/28/16 04:38 Alkaline Phosphatase 30 U/L (34-104) L 06/28/16 04:38 Ammonia 129 umol/L (16-53) H 06/25/16 20:44 Troponin I < 0.01 ng/mL (0.01-0.05) L 06/22/16 19:33 B-Natriuretic Peptide 668.0 pg/mL (5.0-100.0) H 06/22/16 19:33 Total Protein 8.3 gm/dL (6.0-8.3) 06/28/16 04:38 Albumin 3.2 gm/dL (4.2-5.5) L 06/28/16 04:38 Globulin 5.1 gm/dL 06/28/16 04:38 Albumin/Globulin Ratio 0.6 (1.0-1.8) L 06/28/16 04:38 Stool Occult Blood POSITIVE (NEGATIVE) 06/24/16 16:00 Random Vancomycin 13.4 ug/mL (5.0-40.0) 06/28/16 04:38 RPR NONREACTIVE (NONREACTIVE) 06/22/16 19:33 Blood Type A POSITIVE 06/28/16 04:38 Antibody Screen NEGATIVE 06/28/16 04:38 Crossmatch See Detail 06/28/16 04:38 - Physical Exam Vitals and I&O: Vital Signs Temp 97.9 F 06/28/16 11:59 Pulse 119 06/28/16 11:59 Resp 18 06/28/16 11:59 BP 107/60 06/28/16 11:59 Pulse Ox 97 06/28/16 11:59 Intake & Output 06/27/16 06/28/16 06/28/16 18:59 06:59 18:59 Intake Total 500 500 Balance 500 500 Intake: Oral 500 500 Other: # Voids 2 Stool Characteristics Formed Brown Active Medications: Current Medications Acetaminophen (Tylenol) 325 mg PO Q6HR PRN PRN Reason: Mild Pain or Fever >101 Stop: 08/22/16 20:30 Acetaminophen/Hydrocodone Bitart ([place] 10 Mg/325 Mg) 1 tab PO Q8H PRN PRN Reason: Pain (Moderate) Stop: 08/22/16 20:30 Last Admin: 06/28/16 02:07 Dose: 1 tab Albuterol/Ipratropium (Duoneb Neb) 3 ml HHN Q2HR PRN PRN Reason: Shortness of Breath or Wheeze Cholecalciferol (Vitamin D3) 2,000 iu PO DAILY [facility] Stop: 08/23/16 08:59 Last Admin: 06/27/16 17:52 Dose: Not Given Diphenhydramine HCl (Benadryl 50 Mg/Ml) 50 mg IM Q8HR PRN PRN Reason: Agitation Stop: 08/25/16 12:10 Docusate Sodium (Colace) 100 mg PO BID [facility] Stop: 08/22/16 16:59 Last Admin: 06/28/16 08:31 Dose: Not Given Epoetin [place] ([facility] Stop: 08/22/16 14:29 Last Admin: 06/26/16 14:00 Dose: Not Given Haloperidol Lactate (Haldol) 5 mg IM Q8HR PRN PRN Reason: Agitation Stop: 08/25/16 12:10 Lactulose (Cephulac) 30 gm PO TID [facility] Stop: 08/25/16 13:59 Last Admin: 06/28/16 08:31 Dose: Not Given Levothyroxine Sodium (Synthroid) 0.05 mg PO QDAC [facility] Stop: 08/23/16 07:29 Last Admin: 06/28/16 08:30 Dose: Not Given Lorazepam (Ativan) 1 mg IM Q4HR PRN; Protocol PRN Reason: Agitation Stop: 08/25/16 10:37 Last Admin: 06/26/16 14:01 Dose: 1 mg Morphine Sulfate (Morphine) 1 mg IV Q4H PRN PRN Reason: SEVERE PAIN Stop: 08/22/16 04:40 Last Admin: 06/23/16 09:50 Dose: 1 mg Ondansetron HCl (Zofran Odt) 4 mg PO Q6HR PRN PRN Reason: Nausea / Vomiting Stop: 08/22/16 20:30 Pantoprazole Sodium (Protonix) 40 mg PO DAILY [facility] Stop: 08/23/16 08:59 Last Admin: 06/28/16 08:31 Dose: Not Given Quetiapine Fumarate (Seroquel) 50 mg PO TID [facility] PRN Reason: Protocol Stop: 08/26/16 08:59 Last Admin: 06/28/16 08:31 Dose: Not Given Rifaximin (Xifaxan) 600 mg PO BID [facility] Stop: 08/25/16 16:59 Last Admin: 06/28/16 08:31 Dose: Not Given Vitamin B Complex/Vit C/Folic Acid (Vitamin B Complex W/Vitamin C) 1 tab PO DAILY [facility] Stop: 08/23/16 08:59 Last Admin: 06/28/16 08:31 Dose: Not Given General: No acute distress HEENT: Atraumatic Neck: Supple Cardiovascular: Regular rate Lungs: Clear to auscultation Abdomen: Bowel sounds, Soft, no Tender Assessment/Plan - Problem List Patient Problems: All Active Problems MEDICAL EVALUATION PER DR FRY (Acute) - Assessment Assessment: 1. ANEMIA AND OCCULT GI BLEED. 2. ESRD - HD DEP; PULLED OUT ACCESS LINE. 3. MORBID OBESITY. 4. ALOC WITH ELEVATED NH3 LEVEL - R/O HEP ENCEPH. 5. MILDLY ELEVATED LFT'S - R/O CHRONIC LIVER DISEASE AND CIRRHOSIS. - Plan Plan: 1. OFFERED LIVER LABS - PATIENT REFUSED BLOOD DRAWS. 2. OFFERED ABD US - PATIENT REFUSED. 3. EGD AND COLONOSCOPY OFFERED - PATIENT REFUSED. 4. PSYCH F/U TO DETERMINE ABILITY TO PROVIDE CONSENT. 5. PROTONIX. 6. MONITOR HGB; TRANSFUSE PRN. 7. LACTULOSE AND RIFAXIMIN.
--- NOTE | 2016-06-28 13:00 | General Progress Note ---
Subjective - Review of Systems Service Date: 06/28/16 Subjective: more cooperative, but wants to eat Objective - Results Result Diagrams: 06/25/16 08:30 06/25/16 08:30 Recent Labs: Laboratory Last Values WBC 4.6 Th/cmm (4.8-10.8) L 06/25/16 08:30 RBC 2.37 Mil/cmm (4.30-5.70) L 06/25/16 08:30 Hgb 6.9 gm/dL (13.2-17.3) L* 06/25/16 08:30 Hct 20.6 % (39.0-49.0) L* 06/25/16 08:30 MCV 86.6 fl (80-99) 06/25/16 08:30 MCH 29.1 pg (26.0-30.0) 06/25/16 08:30 MCHC Differential 33.5 pg (28.0-36.0) 06/25/16 08:30 RDW 17.0 % (11.5-20.0) 06/25/16 08:30 Plt Count 117 Th/cmm (150-400) L 06/25/16 08:30 MPV 9.7 fl 06/25/16 08:30 Band Neutrophils % 2 % (0-10) 06/25/16 08:30 Neutrophils (Manual) 63 % (40-80) 06/25/16 08:30 Lymphocytes 18 % (20-50) L 06/25/16 08:30 Monocytes 8 % (2-10) 06/25/16 08:30 Eosinophils 8 % (0-5) H 06/25/16 08:30 Basophils 1 % (0-3) 06/25/16 08:30 Hypochromia 1+ 06/22/16 19:33 Platelet Estimate DECREASED PLATELETS (NORMAL) 06/25/16 08:30 Platelet Morphology NORMAL (NORMAL) 06/25/16 08:30 Anisocytosis 1+ 06/25/16 08:30 RBC Morph Micro Appear ABNORMAL (NORMAL) 06/25/16 08:30 PT 12.3 SECONDS (9.5-11.5) H 06/28/16 04:38 INR 1.22 (0.5-1.4) 06/28/16 04:38 PTT (Actin FS) 28.3 SECONDS (26.0-38.0) 06/28/16 04:38 Specimen Source art 06/22/16 20:03 Sample Site Right Radial 06/22/16 20:03 pH 7.49 (7.35-7.45) H 06/22/16 20:03 pCO2 34.0 mmHg (35.0-45.0) L 06/22/16 20:03 pO2 97.0 mmHg (80.0-100.0) 06/22/16 20:03 HCO3 25.9 mmol/L (20.0-26.0) 06/22/16 20:03 Base Excess 2.8 mmol/L (-3.0-3.0) 06/22/16 20:03 O2 Saturation 98.0 % (92.0-100.0) 06/22/16 20:03 Estuardo Test P 06/22/16 20:03 Vent Rate NA 06/22/16 20:03 Inspired O2 21 06/22/16 20:03 Tidal Volume NA 06/22/16 20:03 PEEP NA 06/22/16 20:03 Pressure (ins/psv/peep) NA 06/22/16 20:03 Critical Value RPINEIRA 06/22/16 20:03 Sodium 139 mEq/L (136-145) 06/25/16 08:30 Potassium 3.9 mEq/L (3.5-5.1) 06/25/16 08:30 Chloride 99 mEq/L (98-107) 06/25/16 08:30 Carbon Dioxide 21.9 mEq/L (21.0-31.0) 06/25/16 08:30 Anion Gap 22.0 (7.0-16.0) H 06/25/16 08:30 BUN 61 mg/dL (7-25) H 06/25/16 08:30 Creatinine 3.7 mg/dL (0.7-1.3) H 06/25/16 08:30 Est GFR ( Amer) 22.6 ml/min (>90) 06/25/16 08:30 Est GFR (Non-Af Amer) 18.7 ml/min 06/25/16 08:30 BUN/Creatinine Ratio 16.5 06/25/16 08:30 Glucose 88 mg/dL (70-105) 06/25/16 08:30 Calcium 10.2 mg/dL (8.6-10.3) 06/25/16 08:30 Phosphorus 5.1 mg/dL (2.5-5.0) H 06/23/16 11:25 Magnesium 2.1 mg/dL (1.9-2.7) 06/23/16 11:25 Total Bilirubin 1.4 mg/dL (0.3-1.0) H 06/28/16 04:38 Direct Bilirubin 0.70 mg/dL (0.0-0.2) H 06/28/16 04:38 AST 27 U/L (13-39) 06/28/16 04:38 ALT 14 U/L (7-52) 06/28/16 04:38 Alkaline Phosphatase 30 U/L (34-104) L 06/28/16 04:38 Ammonia 129 umol/L (16-53) H 06/25/16 20:44 Troponin I < 0.01 ng/mL (0.01-0.05) L 06/22/16 19:33 B-Natriuretic Peptide 668.0 pg/mL (5.0-100.0) H 06/22/16 19:33 Total Protein 8.3 gm/dL (6.0-8.3) 06/28/16 04:38 Albumin 3.2 gm/dL (4.2-5.5) L 06/28/16 04:38 Globulin 5.1 gm/dL 06/28/16 04:38 Albumin/Globulin Ratio 0.6 (1.0-1.8) L 06/28/16 04:38 Stool Occult Blood POSITIVE (NEGATIVE) 06/24/16 16:00 Random Vancomycin 13.4 ug/mL (5.0-40.0) 06/28/16 04:38 RPR NONREACTIVE (NONREACTIVE) 06/22/16 19:33 Blood Type A POSITIVE 06/28/16 04:38 Antibody Screen NEGATIVE 06/28/16 04:38 Crossmatch See Detail 06/28/16 04:38 - Physical Exam Vitals and I&O: Vital Signs Temp 97.9 F 06/28/16 11:59 Pulse 119 06/28/16 11:59 Resp 18 06/28/16 11:59 BP 107/60 06/28/16 11:59 Pulse Ox 97 06/28/16 11:59 Intake & Output 06/27/16 06/28/16 06/28/16 18:59 06:59 18:59 Intake Total 500 500 Balance 500 500 Intake: Oral 500 500 Other: # Voids 2 Stool Characteristics Formed Brown Active Medications: Current Medications Acetaminophen (Tylenol) 325 mg PO Q6HR PRN PRN Reason: Mild Pain or Fever >101 Stop: 08/22/16 20:30 Acetaminophen/Hydrocodone Bitart ([place] 10 Mg/325 Mg) 1 tab PO Q8H PRN PRN Reason: Pain (Moderate) Stop: 08/22/16 20:30 Last Admin: 06/28/16 02:07 Dose: 1 tab Albuterol/Ipratropium (Duoneb Neb) 3 ml HHN Q2HR PRN PRN Reason: Shortness of Breath or Wheeze Cholecalciferol (Vitamin D3) 2,000 iu PO DAILY [facility] Stop: 08/23/16 08:59 Last Admin: 06/27/16 17:52 Dose: Not Given Diphenhydramine HCl (Benadryl 50 Mg/Ml) 50 mg IM Q8HR PRN PRN Reason: Agitation Stop: 08/25/16 12:10 Docusate Sodium (Colace) 100 mg PO BID [facility] Stop: 08/22/16 16:59 Last Admin: 06/28/16 08:31 Dose: Not Given Epoetin [place] ([facility]) [facility] Stop: 08/22/16 14:29 Last Admin: 06/26/16 14:00 Dose: Not Given Haloperidol Lactate (Haldol) 5 mg IM Q8HR PRN PRN Reason: Agitation Stop: 08/25/16 12:10 Lactulose (Cephulac) 30 gm PO TID [facility] Stop: 08/25/16 13:59 Last Admin: 06/28/16 08:31 Dose: Not Given Levothyroxine Sodium (Synthroid) 0.05 mg PO QDAC [facility] Stop: 08/23/16 07:29 Last Admin: 06/28/16 08:30 Dose: Not Given Lorazepam (Ativan) 1 mg IM Q4HR PRN; Protocol PRN Reason: Agitation Stop: 08/25/16 10:37 Last Admin: 06/26/16 14:01 Dose: 1 mg Morphine Sulfate (Morphine) 1 mg IV Q4H PRN PRN Reason: SEVERE PAIN Stop: 08/22/16 04:40 Last Admin: 06/23/16 09:50 Dose: 1 mg Ondansetron HCl (Zofran Odt) 4 mg PO Q6HR PRN PRN Reason: Nausea / Vomiting Stop: 08/22/16 20:30 Pantoprazole Sodium (Protonix) 40 mg PO DAILY [facility] Stop: 08/23/16 08:59 Last Admin: 06/28/16 08:31 Dose: Not Given Quetiapine Fumarate (Seroquel) 50 mg PO TID [facility] PRN Reason: Protocol Stop: 08/26/16 08:59 Last Admin: 06/28/16 08:31 Dose: Not Given Rifaximin (Xifaxan) 600 mg PO BID [facility] Stop: 08/25/16 16:59 Last Admin: 06/28/16 08:31 Dose: Not Given Vitamin B Complex/Vit C/Folic Acid (Vitamin B Complex W/Vitamin C) 1 tab PO DAILY [facility] Stop: 08/23/16 08:59 Last Admin: 06/28/16 08:31 Dose: Not Given General: Alert, No acute distress HEENT: Atraumatic, Mucous membr. moist/pink Neck: Supple, +2 carotid pulse wo bruit Cardiovascular: Regular rate, Normal S1, Normal S2 Lungs: Clear to auscultation Abdomen: Bowel sounds, Soft Extremities: Edema Neurological: Sensation intact Psych/Mental Status: Other (more cooperative) Assessment/Plan - Problem List Patient Problems: All Active Problems MEDICAL EVALUATION PER DR FRY (Acute) - Assessment Assessment: esrd on hd persistent cellulitis b/l lower ext acute on chronic anemia possible gi bleed ohs chronic a. fib hypothyroid anasarca functional quadriplegia chronic venous stasis dermatitis acute decomp psychosis - Plan Plan: pt. pulled out perma cath schedule for PICC line, then transfuse 2 units PRBC upset because has not eaten since yesterday resume diet for now possible perma cath in am
[2016-06-28] MEDS: Epoetin Alfa 20000 Units/mL Vial SUBQ SCH (15:00)
--- NOTE | 2016-06-28 16:24 | Diagnostic Imaging Report ---
CHEST X-RAY: AP view INDICATION: PICC line placement COMPARISON: 06/22/2016 FINDINGS: The prior right sided dialysis catheter has been removed. Right PICC line is seen with tip in SVC. Right basal atelectasis versus infiltrate is noted. Cardiomegaly is noted. IMPRESSION: Interval right PICC line placement with tip in SVC Right basal atelectasis versus infiltrate. Cardiomegaly.
[2016-06-29 06:41] LABS: MEAN CELL VOLUME 87.2 fl (80-99); MEAN CORPUSCULAR HEMOGLOBIN 30.2 pg (26.0-30.0); MEAN CORPUSCULAR HGB CONC 34.7 pg (28.0-36.0); PLATELET COUNT 114 Th/cmm (150-400); RED CELL DISTRIBUTION WIDTH 16.4 % (11.5-20.0)
[2016-06-29 06:50] LABS: ALB/GLOB RATIO 0.6 (1.0-1.8); ANION GAP 13.2 (7.0-16.0); BILIRUBIN,TOTAL 1.4 mg/dL (0.3-1.0); CALCIUM SERUM 9.4 mg/dL (8.6-10.3); CARBON DIOXIDE 24.1 mEq/L (21.0-31.0); CREATININE - SERUM 3.8 mg/dL (0.7-1.3); POTASSIUM SERUM 3.3 mEq/L (3.5-5.1)
[2016-06-29 07:14] LABS: WHITE BLOOD COUNT 3.5 Th/cmm (4.8-10.8)
[2016-06-29 07:46] LABS: HEMOGLOBIN 6.9 gm/dL (13.2-17.3)
[2016-06-29] MEDS: Levothyroxine 0.05 Mg Tab PO SCH (08:08)
[2016-06-29] MEDS: Lactulose 10 Gm/15 mL 30mL UDC PO SCH ×4 (08:08→22:17)
[2016-06-29] MEDS: Pantoprazole 40 mg EC Tab PO SCH (08:08)
[2016-06-29] MEDS: Vitamin B Complex w/Vitamin C Tab PO SCH (08:09)
--- NOTE | 2016-06-29 09:49 | General Progress Note ---
Subjective - Review of Systems Subjective: pt refusing evrything pulled out vascular access yesterday spoke to dr forrest yesterday renal notes noted Objective - Results Result Diagrams: 06/29/16 05:49 06/29/16 05:49 Recent Labs: Laboratory Last Values WBC 3.5 Th/cmm (4.8-10.8) L D 06/29/16 05:49 RBC 2.30 Mil/cmm (4.30-5.70) L 06/29/16 05:49 Hgb 6.9 gm/dL (13.2-17.3) L* 06/29/16 05:49 Hct 20.0 % (39.0-49.0) L* 06/29/16 05:49 MCV 87.2 fl (80-99) 06/29/16 05:49 MCH 30.2 pg (26.0-30.0) H 06/29/16 05:49 MCHC Differential 34.7 pg (28.0-36.0) 06/29/16 05:49 RDW 16.4 % (11.5-20.0) 06/29/16 05:49 Plt Count 114 Th/cmm (150-400) L 06/29/16 05:49 MPV 9.0 fl 06/29/16 05:49 Band Neutrophils % 2 % (0-10) 06/25/16 08:30 Neutrophils (Manual) 63 % (40-80) 06/25/16 08:30 Lymphocytes 18 % (20-50) L 06/25/16 08:30 Monocytes 8 % (2-10) 06/25/16 08:30 Eosinophils 8 % (0-5) H 06/25/16 08:30 Basophils 1 % (0-3) 06/25/16 08:30 Hypochromia 1+ 06/22/16 19:33 Platelet Estimate DECREASED PLATELETS (NORMAL) 06/25/16 08:30 Platelet Morphology NORMAL (NORMAL) 06/25/16 08:30 Anisocytosis 1+ 06/25/16 08:30 RBC Morph Micro Appear ABNORMAL (NORMAL) 06/25/16 08:30 PT 12.3 SECONDS (9.5-11.5) H 06/28/16 04:38 INR 1.22 (0.5-1.4) 06/28/16 04:38 PTT (Actin FS) 28.3 SECONDS (26.0-38.0) 06/28/16 04:38 Specimen Source art 06/22/16 20:03 Sample Site Right Radial 06/22/16 20:03 pH 7.49 (7.35-7.45) H 06/22/16 20:03 pCO2 34.0 mmHg (35.0-45.0) L 06/22/16 20:03 pO2 97.0 mmHg (80.0-100.0) 06/22/16 20:03 HCO3 25.9 mmol/L (20.0-26.0) 06/22/16 20:03 Base Excess 2.8 mmol/L (-3.0-3.0) 06/22/16 20:03 O2 Saturation 98.0 % (92.0-100.0) 06/22/16 20:03 Estuardo Test P 06/22/16 20:03 Vent Rate NA 06/22/16 20:03 Inspired O2 21 06/22/16 20:03 Tidal Volume NA 06/22/16 20:03 PEEP NA 06/22/16 20:03 Pressure (ins/psv/peep) NA 06/22/16 20:03 Critical Value RPINEIRA 06/22/16 20:03 Sodium 135 mEq/L (136-145) L 06/29/16 05:49 Potassium 3.3 mEq/L (3.5-5.1) L 06/29/16 05:49 Chloride 101 mEq/L (98-107) 06/29/16 05:49 Carbon Dioxide 24.1 mEq/L (21.0-31.0) 06/29/16 05:49 Anion Gap 13.2 (7.0-16.0) 06/29/16 05:49 BUN 76 mg/dL (7-25) H 06/29/16 05:49 Creatinine 3.8 mg/dL (0.7-1.3) H 06/29/16 05:49 Est GFR ( Amer) 21.9 ml/min (>90) 06/29/16 05:49 Est GFR (Non-Af Amer) 18.1 ml/min 06/29/16 05:49 BUN/Creatinine Ratio 20.0 06/29/16 05:49 Glucose 102 mg/dL (70-105) 06/29/16 05:49 Calcium 9.4 mg/dL (8.6-10.3) 06/29/16 05:49 Phosphorus 5.1 mg/dL (2.5-5.0) H 06/23/16 11:25 Magnesium 2.1 mg/dL (1.9-2.7) 06/23/16 11:25 Total Bilirubin 1.4 mg/dL (0.3-1.0) H 06/29/16 05:49 Direct Bilirubin 0.70 mg/dL (0.0-0.2) H 06/28/16 04:38 AST 23 U/L (13-39) 06/29/16 05:49 ALT 12 U/L (7-52) 06/29/16 05:49 Alkaline Phosphatase 27 U/L (34-104) L 06/29/16 05:49 Ammonia 173 umol/L (16-53) H 06/29/16 05:49 Troponin I < 0.01 ng/mL (0.01-0.05) L 06/22/16 19:33 B-Natriuretic Peptide 668.0 pg/mL (5.0-100.0) H 06/22/16 19:33 Total Protein 7.6 gm/dL (6.0-8.3) 06/29/16 05:49 Albumin 2.9 gm/dL (4.2-5.5) L 06/29/16 05:49 Globulin 4.7 gm/dL 06/29/16 05:49 Albumin/Globulin Ratio 0.6 (1.0-1.8) L 06/29/16 05:49 Stool Occult Blood POSITIVE (NEGATIVE) 06/24/16 16:00 Random Vancomycin 13.4 ug/mL (5.0-40.0) 06/28/16 04:38 RPR NONREACTIVE (NONREACTIVE) 06/22/16 19:33 Blood Type A POSITIVE 06/28/16 04:38 Antibody Screen NEGATIVE 06/28/16 04:38 Crossmatch See Detail 06/28/16 04:38 - Physical Exam Vitals and I&O: Vital Signs Temp 98.7 F 06/29/16 03:56 Pulse 120 06/29/16 03:56 Resp 20 06/29/16 03:56 BP 106/60 06/29/16 03:56 Pulse Ox 99 06/29/16 03:56 Intake & Output 06/28/16 06/29/16 06/29/16 18:59 06:59 18:59 Intake Total 900 620 Output Total 1101 Balance 900 -481 Intake: Oral 900 620 Output: Urine 1100 Stool 1 Other: # Voids 3 Active Medications: Current Medications Acetaminophen (Tylenol) 325 mg PO Q6HR PRN PRN Reason: Mild Pain or Fever >101 Stop: 08/22/16 20:30 Acetaminophen/Hydrocodone Bitart ([place] 10 Mg/325 Mg) 1 tab PO Q8H PRN PRN Reason: Pain (Moderate) Stop: 08/22/16 20:30 Last Admin: 06/28/16 02:07 Dose: 1 tab Albuterol/Ipratropium (Duoneb Neb) 3 ml HHN Q2HR PRN PRN Reason: Shortness of Breath or Wheeze Cholecalciferol (Vitamin D3) 2,000 iu PO DAILY [facility] Stop: 08/23/16 08:59 Last Admin: 06/28/16 09:00 Dose: Not Given Diphenhydramine HCl (Benadryl 50 Mg/Ml) 50 mg IM Q8HR PRN PRN Reason: Agitation Stop: 08/25/16 12:10 Docusate Sodium (Colace) 100 mg PO BID [facility] Stop: 08/22/16 16:59 Last Admin: 06/29/16 08:08 Dose: Not Given Epoetin [place] (Epogen) 10,000 units SUBQ TuTa [facility] Stop: 08/22/16 14:29 Last Admin: 06/28/16 15:00 Dose: Not Given Haloperidol Lactate (Haldol) 5 mg IM Q8HR PRN PRN Reason: Agitation Stop: 08/25/16 12:10 Lactulose (Cephulac) 30 gm PO TID [facility] Stop: 08/25/16 13:59 Last Admin: 06/29/16 08:08 Dose: Not Given Levothyroxine Sodium (Synthroid) 0.05 mg PO QDAC [facility] Stop: 08/23/16 07:29 Last Admin: 06/29/16 08:08 Dose: Not Given Lorazepam (Ativan) 1 mg IM Q4HR PRN; Protocol PRN Reason: Agitation Stop: 08/25/16 10:37 Last Admin: 06/26/16 14:01 Dose: 1 mg Morphine Sulfate (Morphine) 1 mg IV Q4H PRN PRN Reason: SEVERE PAIN Stop: 08/22/16 04:40 Last Admin: 06/28/16 17:12 Dose: 1 mg Ondansetron HCl (Zofran Odt) 4 mg PO Q6HR PRN PRN Reason: Nausea / Vomiting Stop: 08/22/16 20:30 Pantoprazole Sodium (Protonix) 40 mg PO DAILY [facility] Stop: 08/23/16 08:59 Last Admin: 06/29/16 08:08 Dose: Not Given Quetiapine Fumarate (Seroquel) 100 mg PO TID [facility] PRN Reason: Protocol Stop: 08/26/16 08:59 Last Admin: 06/29/16 08:09 Dose: Not Given Rifaximin (Xifaxan) 600 mg PO BID [facility] Stop: 08/25/16 16:59 Last Admin: 06/29/16 08:09 Dose: Not Given Vitamin B Complex/Vit C/Folic Acid (Vitamin B Complex W/Vitamin C) 1 tab PO DAILY [facility] Stop: 08/23/16 08:59 Last Admin: 06/29/16 08:09 Dose: Not Given Assessment/Plan - Problem List Patient Problems: All Active Problems MEDICAL EVALUATION PER DR FRY (Acute) - Assessment Assessment: 1. Cellulitis of legs. 2. Lymphedema of legs. 3. CKD 5 on HD. 4. Morbid obesity. 5 anemia 6 gi bleed 7 psychosis - Plan Plan: ivabx follow up labs id consult
[2016-06-29 10:43] LABS: BASOPHIL 3 % (0-3); EOSINOPHIL 22 % (0-5); NEUTROPHILS 41 % (40-80); TOTAL CELLS COUNTED 100
[2016-06-29 10:44] LABS: ANISOCYTOSIS 1+; PLATELET ESTIMATE DECREASED PLATELETS (NORMAL)
[2016-06-29 10:50] LABS: PLATELET MORPHOLOGY NORMAL (NORMAL)
[2016-06-29 10:57] LABS: WHITE BLOOD COUNT 4.2 Th/cmm (4.8-10.8)
[2016-06-29 10:59] LABS: MEAN CELL VOLUME 87.1 fl (80-99); MEAN CORPUSCULAR HEMOGLOBIN 29.3 pg (26.0-30.0); MEAN CORPUSCULAR HGB CONC 33.7 pg (28.0-36.0); RED CELL DISTRIBUTION WIDTH 16.5 % (11.5-20.0)
[2016-06-29 11:00] LABS: % BASOPHILS 0.1 % (0.0-2.0); % EOSINOPHILS 19.5 % (0.0-5.0); % MONOCYTES 12.6 % (2.0-10.0); % NEUTROPHILS 50.8 % (40.0-80.0); MEAN PLATELET VOLUME 8.8 fl; NEUTROPHILE ABSOLUTE 2.2 Th/cmm (1.8-8.0)
[2016-06-29 11:02] LABS: HEMATOCRIT 20.9 % (39.0-49.0)
[2016-06-29 11:15] LABS: GAMMA GLUTAMYL TRANSFERASE 14 IU/L (0-65); IRON SATURATION 16 % (15-55); TIBC (LCI) 269 ug/dL (250-450); UIBC 227 ug/dL (111-343)
[2016-06-29 11:28] LABS: URINE BILIRUBIN NEGATIVE (NEGATIVE); URINE BLOOD NEGATIVE (NEGATIVE); URINE COLOR YELLOW; URINE GLUCOSE (UA) NEGATIVE (NEGATIVE); URINE KETONE NEGATIVE (NEGATIVE); URINE PH 5.5; URINE PROTEIN 30 mg/dL (NEGATIVE); URINE UROBILINOGEN 0.2 E.U./dL (0.2 - 1.0)
[2016-06-29 11:29] LABS: URINE BACTERIA MANY /hpf (NONE SEEN); URINE EPITHELIAL CELLS FEW /lpf (FEW); URINE RBC 0-2 /hpf (0-5)
--- NOTE | 2016-06-29 12:00 | Infectious Disease Prog Note ---
Infectious Disease Subjective - Review of Systems Service Date: 06/29/16 Subjective: No change. Infectious Disease Objective - Results Result Diagrams: 06/29/16 07:55 06/29/16 05:49 Recent Labs: Laboratory Last Values WBC 4.2 Th/cmm (4.8-10.8) L 06/29/16 07:55 RBC 2.40 Mil/cmm (4.30-5.70) L 06/29/16 07:55 Hgb 7.0 gm/dL (13.2-17.3) L* 06/29/16 07:55 Hct 20.9 % (39.0-49.0) L* 06/29/16 07:55 MCV 87.1 fl (80-99) 06/29/16 07:55 MCH 29.3 pg (26.0-30.0) 06/29/16 07:55 MCHC Differential 33.7 pg (28.0-36.0) 06/29/16 07:55 RDW 16.5 % (11.5-20.0) 06/29/16 07:55 Plt Count 114 Th/cmm (150-400) L 06/29/16 05:49 MPV 8.8 fl 06/29/16 07:55 Neutrophils % 50.8 % (40.0-80.0) 06/29/16 07:55 Band Neutrophils % 2 % (0-10) 06/25/16 08:30 Lymphocytes % 17.0 % (20.0-50.0) L 06/29/16 07:55 Monocytes % 12.6 % (2.0-10.0) H 06/29/16 07:55 Eosinophils % 19.5 % (0.0-5.0) H 06/29/16 07:55 Basophils % 0.1 % (0.0-2.0) 06/29/16 07:55 Neutrophils (Manual) 41 % (40-80) 06/29/16 05:49 Lymphocytes 16 % (20-50) L 06/29/16 05:49 Monocytes 18 % (2-10) H 06/29/16 05:49 Eosinophils 22 % (0-5) H 06/29/16 05:49 Basophils 3 % (0-3) 06/29/16 05:49 Hypochromia 1+ 06/22/16 19:33 Platelet Estimate DECREASED PLATELETS (NORMAL) 06/29/16 05:49 Platelet Morphology NORMAL (NORMAL) 06/29/16 05:49 Anisocytosis 1+ 06/29/16 05:49 RBC Morph Micro Appear ABNORMAL (NORMAL) 06/29/16 05:49 PT 12.3 SECONDS (9.5-11.5) H 06/28/16 04:38 INR 1.22 (0.5-1.4) 06/28/16 04:38 PTT (Actin FS) 28.3 SECONDS (26.0-38.0) 06/28/16 04:38 Specimen Source art 06/22/16 20:03 Sample Site Right Radial 06/22/16 20:03 pH 7.49 (7.35-7.45) H 06/22/16 20:03 pCO2 34.0 mmHg (35.0-45.0) L 06/22/16 20:03 pO2 97.0 mmHg (80.0-100.0) 06/22/16 20:03 HCO3 25.9 mmol/L (20.0-26.0) 06/22/16 20:03 Base Excess 2.8 mmol/L (-3.0-3.0) 06/22/16 20:03 O2 Saturation 98.0 % (92.0-100.0) 06/22/16 20:03 Estuardo Test P 06/22/16 20:03 Vent Rate NA 06/22/16 20:03 Inspired O2 21 06/22/16 20:03 Tidal Volume NA 06/22/16 20:03 PEEP NA 06/22/16 20:03 Pressure (ins/psv/peep) NA 06/22/16 20:03 Critical Value RPINEIRA 06/22/16 20:03 Sodium 135 mEq/L (136-145) L 06/29/16 05:49 Potassium 3.3 mEq/L (3.5-5.1) L 06/29/16 05:49 Chloride 101 mEq/L (98-107) 06/29/16 05:49 Carbon Dioxide 24.1 mEq/L (21.0-31.0) 06/29/16 05:49 Anion Gap 13.2 (7.0-16.0) 06/29/16 05:49 BUN 76 mg/dL (7-25) H 06/29/16 05:49 Creatinine 3.8 mg/dL (0.7-1.3) H 06/29/16 05:49 Est GFR ( Amer) 21.9 ml/min (>90) 06/29/16 05:49 Est GFR (Non-Af Amer) 18.1 ml/min 06/29/16 05:49 BUN/Creatinine Ratio 20.0 06/29/16 05:49 Glucose 102 mg/dL (70-105) 06/29/16 05:49 Calcium 9.4 mg/dL (8.6-10.3) 06/29/16 05:49 Phosphorus 5.1 mg/dL (2.5-5.0) H 06/23/16 11:25 Magnesium 2.1 mg/dL (1.9-2.7) 06/23/16 11:25 Iron 42 ug/dL (38-169) 06/28/16 04:38 TIBC 269 ug/dL (250-450) 06/28/16 04:38 Iron Saturation 16 % (15-55) 06/28/16 04:38 Unsaturated IBC 227 ug/dL (111-343) 06/28/16 04:38 Total Bilirubin 1.4 mg/dL (0.3-1.0) H 06/29/16 05:49 Direct Bilirubin 0.70 mg/dL (0.0-0.2) H 06/28/16 04:38 GGTP 14 IU/L (0-65) 06/28/16 04:38 AST 23 U/L (13-39) 06/29/16 05:49 ALT 12 U/L (7-52) 06/29/16 05:49 Alkaline Phosphatase 27 U/L (34-104) L 06/29/16 05:49 Ammonia 173 umol/L (16-53) H 06/29/16 05:49 Troponin I < 0.01 ng/mL (0.01-0.05) L 06/22/16 19:33 B-Natriuretic Peptide 668.0 pg/mL (5.0-100.0) H 06/22/16 19:33 Total Protein 7.6 gm/dL (6.0-8.3) 06/29/16 05:49 Albumin 2.9 gm/dL (4.2-5.5) L 06/29/16 05:49 Globulin 4.7 gm/dL 06/29/16 05:49 Albumin/Globulin Ratio 0.6 (1.0-1.8) L 06/29/16 05:49 Urine Source CLEAN C 06/29/16 05:55 Urine Color YELLOW 06/29/16 05:55 Urine Clarity HAZY (CLEAR) 06/29/16 05:55 Urine pH 5.5 06/29/16 05:55 Ur Specific [place] 1.015 (1.005-1.030) 06/29/16 05:55 Urine Protein 30 mg/dL (NEGATIVE) H 06/29/16 05:55 Urine Glucose (UA) NEGATIVE mg/dL (NEGATIVE) 06/29/16 05:55 Urine Ketones NEGATIVE mg/dL (NEGATIVE) 06/29/16 05:55 Urine Blood NEGATIVE (NEGATIVE) 06/29/16 05:55 Urine Nitrate NEGATIVE (NEGATIVE) 06/29/16 05:55 Urine Bilirubin NEGATIVE (NEGATIVE) 06/29/16 05:55 Urine Urobilinogen 0.2 E.U./dL (0.2 - 1.0) 06/29/16 05:55 Ur Leukocyte Esterase TRACE (NEGATIVE) H 06/29/16 05:55 Urine RBC 0-2 /hpf (0-5) H 06/29/16 05:55 Urine WBC 6-10 /hpf (0-5) H 06/29/16 05:55 Ur Epithelial Cells FEW /lpf (FEW) 06/29/16 05:55 Urine Bacteria MANY /hpf (NONE SEEN) 06/29/16 05:55 Stool Occult Blood POSITIVE (NEGATIVE) 06/24/16 16:00 Random Vancomycin 13.4 ug/mL (5.0-40.0) 06/28/16 04:38 RPR NONREACTIVE (NONREACTIVE) 06/22/16 19:33 Blood Type A POSITIVE 06/28/16 04:38 Antibody Screen NEGATIVE 06/28/16 04:38 Crossmatch See Detail 06/28/16 04:38 - Physical Exam Vitals and I&O: Vital Signs Temp 97.9 F 06/29/16 08:00 Pulse 112 06/29/16 08:00 Resp 18 06/29/16 08:00 BP 101/51 06/29/16 08:00 Pulse Ox 99 02/10/17 08:00 Intake & Output 06/28/16 06/29/16 06/29/16 18:59 06:59 18:59 Intake Total 900 620 Output Total 1101 Balance 900 -481 Intake: Oral 900 620 Output: Urine 1100 Stool 1 Other: # Voids 3 Active Medications: Current Medications Acetaminophen (Tylenol) 325 mg PO Q6HR PRN PRN Reason: Mild Pain or Fever >101 Stop: 08/22/16 20:30 Acetaminophen/Hydrocodone Bitart ([place] 10 Mg/325 Mg) 1 tab PO Q8H PRN PRN Reason: Pain (Moderate) Stop: 08/22/16 20:30 Last Admin: 06/28/16 02:07 Dose: 1 tab Albuterol/Ipratropium (Duoneb Neb) 3 ml HHN Q2HR PRN PRN Reason: Shortness of Breath or Wheeze Cholecalciferol (Vitamin D3) 2,000 iu PO DAILY [facility] Stop: 08/23/16 08:59 Last Admin: 06/29/16 09:00 Dose: Not Given Diphenhydramine HCl (Benadryl 50 Mg/Ml) 50 mg IM Q8HR PRN PRN Reason: Agitation Stop: 08/25/16 12:10 Docusate Sodium (Colace) 100 mg PO BID [facility] Stop: 08/22/16 16:59 Last Admin: 06/29/16 08:08 Dose: Not Given Epoetin Bernardino (Epogen) 10,000 units SUBQ TuThSa [facility] Stop: 08/22/16 14:29 Last Admin: 06/28/16 15:00 Dose: Not Given Haloperidol Lactate (Haldol) 5 mg IM Q8HR PRN PRN Reason: Agitation Stop: 08/25/16 12:10 Lactulose (Cephulac) 30 gm PO TID [facility] Stop: 08/25/16 13:59 Last Admin: 06/29/16 08:08 Dose: Not Given Levothyroxine Sodium (Synthroid) 0.05 mg PO QDAC [facility] Stop: 08/23/16 07:29 Last Admin: 06/29/16 08:08 Dose: Not Given Lorazepam (Ativan) 1 mg IM Q4HR PRN; Protocol PRN Reason: Agitation Stop: 08/25/16 10:37 Last Admin: 06/26/16 14:01 Dose: 1 mg Morphine Sulfate (Morphine) 1 mg IV Q4H PRN PRN Reason: SEVERE PAIN Stop: 08/22/16 04:40 Last Admin: 06/28/16 17:12 Dose: 1 mg Ondansetron HCl (Zofran Odt) 4 mg PO Q6HR PRN PRN Reason: Nausea / Vomiting Stop: 08/22/16 20:30 Pantoprazole Sodium (Protonix) 40 mg PO DAILY [facility] Stop: 08/23/16 08:59 Last Admin: 06/29/16 08:08 Dose: Not Given Quetiapine Fumarate (Seroquel) 100 mg PO TID [facility] PRN Reason: Protocol Stop: 08/26/16 08:59 Last Admin: 06/29/16 08:09 Dose: Not Given Rifaximin (Xifaxan) 600 mg PO BID [facility] Stop: 08/25/16 16:59 Last Admin: 06/29/16 08:09 Dose: Not Given Vitamin B Complex/Vit C/Folic Acid (Vitamin B Complex W/Vitamin C) 1 tab PO DAILY [facility] Stop: 08/23/16 08:59 Last Admin: 06/29/16 08:09 Dose: Not Given General: no acute distress, other (Obese) HEENT: atraumatic, normocephalic, PERRLA, EOMI Neck: supple Cardiovascular: S1S2, regular Lungs: clear to auscultation bilaterally, clear to percussion Abdomen: soft, no tender, no distended, no mass Extremities: other (swelling of legs.), no clubbing, no edema Neurological: awake, alert, oriented, CN 2-12 intact Skin: intact Infectious Disease Assmt/Plan - Problem List Patient Problems: All Active Problems MEDICAL EVALUATION PER DR FRY (Acute) - Assessment Assessment: 1. Cellulitis of legs. improved. treated. 2. Lymphedema of legs. 3. CKD 5 on HD. 4. Morbid obesity. - Plan Plan: Continue the skin care.
[2016-06-29] MEDS ORDERED: Potassium Chloride 20 mEq ER Tab PO ONE (14:10)
--- NOTE | 2016-06-29 14:14 | General Progress Note ---
Subjective - Review of Systems Service Date: 06/29/16 Subjective: more cooperative, less agitated Objective - Results Result Diagrams: 06/29/16 07:55 06/29/16 05:49 Recent Labs: Laboratory Last Values WBC 4.2 Th/cmm (4.8-10.8) L 06/29/16 07:55 RBC 2.40 Mil/cmm (4.30-5.70) L 06/29/16 07:55 Hgb 7.0 gm/dL (13.2-17.3) L* 06/29/16 07:55 Hct 20.9 % (39.0-49.0) L* 06/29/16 07:55 MCV 87.1 fl (80-99) 06/29/16 07:55 MCH 29.3 pg (26.0-30.0) 06/29/16 07:55 MCHC Differential 33.7 pg (28.0-36.0) 06/29/16 07:55 RDW 16.5 % (11.5-20.0) 06/29/16 07:55 Plt Count 114 Th/cmm (150-400) L 06/29/16 05:49 MPV 8.8 fl 06/29/16 07:55 Neutrophils % 50.8 % (40.0-80.0) 06/29/16 07:55 Band Neutrophils % 2 % (0-10) 06/25/16 08:30 Lymphocytes % 17.0 % (20.0-50.0) L 06/29/16 07:55 Monocytes % 12.6 % (2.0-10.0) H 06/29/16 07:55 Eosinophils % 19.5 % (0.0-5.0) H 06/29/16 07:55 Basophils % 0.1 % (0.0-2.0) 06/29/16 07:55 Neutrophils (Manual) 41 % (40-80) 06/29/16 05:49 Lymphocytes 16 % (20-50) L 06/29/16 05:49 Monocytes 18 % (2-10) H 06/29/16 05:49 Eosinophils 22 % (0-5) H 06/29/16 05:49 Basophils 3 % (0-3) 06/29/16 05:49 Hypochromia 1+ 06/22/16 19:33 Platelet Estimate DECREASED PLATELETS (NORMAL) 06/29/16 05:49 Platelet Morphology NORMAL (NORMAL) 06/29/16 05:49 Anisocytosis 1+ 06/29/16 05:49 RBC Morph Micro Appear ABNORMAL (NORMAL) 06/29/16 05:49 PT 12.3 SECONDS (9.5-11.5) H 06/28/16 04:38 INR 1.22 (0.5-1.4) 06/28/16 04:38 PTT (Actin FS) 28.3 SECONDS (26.0-38.0) 06/28/16 04:38 Specimen Source art 06/22/16 20:03 Sample Site Right Radial 06/22/16 20:03 pH 7.49 (7.35-7.45) H 06/22/16 20:03 pCO2 34.0 mmHg (35.0-45.0) L 06/22/16 20:03 pO2 97.0 mmHg (80.0-100.0) 06/22/16 20:03 HCO3 25.9 mmol/L (20.0-26.0) 06/22/16 20:03 Base Excess 2.8 mmol/L (-3.0-3.0) 06/22/16 20:03 O2 Saturation 98.0 % (92.0-100.0) 06/22/16 20:03 Estuardo Test P 06/22/16 20:03 Vent Rate NA 06/22/16 20:03 Inspired O2 21 06/22/16 20:03 Tidal Volume NA 06/22/16 20:03 PEEP NA 06/22/16 20:03 Pressure (ins/psv/peep) NA 06/22/16 20:03 Critical Value RPINEIRA 06/22/16 20:03 Sodium 135 mEq/L (136-145) L 06/29/16 05:49 Potassium 3.3 mEq/L (3.5-5.1) L 06/29/16 05:49 Chloride 101 mEq/L (98-107) 06/29/16 05:49 Carbon Dioxide 24.1 mEq/L (21.0-31.0) 06/29/16 05:49 Anion Gap 13.2 (7.0-16.0) 06/29/16 05:49 BUN 76 mg/dL (7-25) H 06/29/16 05:49 Creatinine 3.8 mg/dL (0.7-1.3) H 06/29/16 05:49 Est GFR ( Amer) 21.9 ml/min (>90) 06/29/16 05:49 Est GFR (Non-Af Amer) 18.1 ml/min 06/29/16 05:49 BUN/Creatinine Ratio 20.0 06/29/16 05:49 Glucose 102 mg/dL (70-105) 06/29/16 05:49 Calcium 9.4 mg/dL (8.6-10.3) 06/29/16 05:49 Phosphorus 5.1 mg/dL (2.5-5.0) H 06/23/16 11:25 Magnesium 2.1 mg/dL (1.9-2.7) 06/23/16 11:25 Iron 42 ug/dL (38-169) 06/28/16 04:38 TIBC 269 ug/dL (250-450) 06/28/16 04:38 Iron Saturation 16 % (15-55) 06/28/16 04:38 Unsaturated IBC 227 ug/dL (111-343) 06/28/16 04:38 Total Bilirubin 1.4 mg/dL (0.3-1.0) H 06/29/16 05:49 Direct Bilirubin 0.70 mg/dL (0.0-0.2) H 06/28/16 04:38 GGTP 14 IU/L (0-65) 06/28/16 04:38 AST 23 U/L (13-39) 06/29/16 05:49 ALT 12 U/L (7-52) 06/29/16 05:49 Alkaline Phosphatase 27 U/L (34-104) L 06/29/16 05:49 Ammonia 173 umol/L (16-53) H 06/29/16 05:49 Troponin I < 0.01 ng/mL (0.01-0.05) L 06/22/16 19:33 B-Natriuretic Peptide 668.0 pg/mL (5.0-100.0) H 06/22/16 19:33 Total Protein 7.6 gm/dL (6.0-8.3) 06/29/16 05:49 Albumin 2.9 gm/dL (4.2-5.5) L 06/29/16 05:49 Globulin 4.7 gm/dL 06/29/16 05:49 Albumin/Globulin Ratio 0.6 (1.0-1.8) L 06/29/16 05:49 Urine Source CLEAN C 06/29/16 05:55 Urine Color YELLOW 06/29/16 05:55 Urine Clarity HAZY (CLEAR) 06/29/16 05:55 Urine pH 5.5 06/29/16 05:55 Ur Specific [place] 1.015 (1.005-1.030) 06/29/16 05:55 Urine Protein 30 mg/dL (NEGATIVE) H 06/29/16 05:55 Urine Glucose (UA) NEGATIVE mg/dL (NEGATIVE) 06/29/16 05:55 Urine Ketones NEGATIVE mg/dL (NEGATIVE) 06/29/16 05:55 Urine Blood NEGATIVE (NEGATIVE) 06/29/16 05:55 Urine Nitrate NEGATIVE (NEGATIVE) 06/29/16 05:55 Urine Bilirubin NEGATIVE (NEGATIVE) 06/29/16 05:55 Urine Urobilinogen 0.2 E.U./dL (0.2 - 1.0) 06/29/16 05:55 Ur Leukocyte Esterase TRACE (NEGATIVE) H 06/29/16 05:55 Urine RBC 0-2 /hpf (0-5) H 06/29/16 05:55 Urine WBC 6-10 /hpf (0-5) H 06/29/16 05:55 Ur Epithelial Cells FEW /lpf (FEW) 06/29/16 05:55 Urine Bacteria MANY /hpf (NONE SEEN) 06/29/16 05:55 Stool Occult Blood POSITIVE (NEGATIVE) 06/24/16 16:00 Random Vancomycin 13.4 ug/mL (5.0-40.0) 06/28/16 04:38 RPR NONREACTIVE (NONREACTIVE) 06/22/16 19:33 Blood Type A POSITIVE 06/28/16 04:38 Antibody Screen NEGATIVE 06/28/16 04:38 Crossmatch See Detail 06/28/16 04:38 - Physical Exam Vitals and I&O: Vital Signs Temp 97.9 F 06/29/16 08:00 Pulse 112 06/29/16 08:00 Resp 18 06/29/16 08:00 BP 101/51 06/29/16 08:00 Pulse Ox 99 06/29/16 08:00 Intake & Output 06/28/16 06/29/16 06/29/16 18:59 06:59 18:59 Intake Total 900 620 Output Total 1101 Balance 900 -481 Intake: Oral 900 620 Output: Urine 1100 Stool 1 Other: # Voids 3 Active Medications: Current Medications Acetaminophen (Tylenol) 325 mg PO Q6HR PRN PRN Reason: Mild Pain or Fever >101 Stop: 08/22/16 20:30 Acetaminophen/Hydrocodone Bitart ([place] 10 Mg/325 Mg) 1 tab PO Q8H PRN PRN Reason: Pain (Moderate) Stop: 08/22/16 20:30 Last Admin: 06/28/16 02:07 Dose: 1 tab Albuterol/Ipratropium (Duoneb Neb) 3 ml HHN Q2HR PRN PRN Reason: Shortness of Breath or Wheeze Cholecalciferol (Vitamin D3) 2,000 iu PO DAILY [facility] Stop: 08/23/16 08:59 Last Admin: 06/29/16 09:00 Dose: Not Given Diphenhydramine HCl (Benadryl 50 Mg/Ml) 50 mg IM Q8HR PRN PRN Reason: Agitation Stop: 08/25/16 12:10 Docusate Sodium (Colace) 100 mg PO BID [facility] Stop: 08/22/16 16:59 Last Admin: 06/29/16 08:08 Dose: Not Given Epoetin [place] (Epogen) 10,000 units SUBQ TuThSa [facility] Stop: 08/22/16 14:29 Last Admin: 06/28/16 15:00 Dose: Not Given Haloperidol Lactate (Haldol) 5 mg IM Q8HR PRN PRN Reason: Agitation Stop: 08/25/16 12:10 Lactulose (Cephulac) 30 gm PO TID [facility] Stop: 08/25/16 13:59 Last Admin: 06/29/16 08:08 Dose: Not Given Levothyroxine Sodium (Synthroid) 0.05 mg PO QDAC [facility] Stop: 08/23/16 07:29 Last Admin: 06/29/16 08:08 Dose: Not Given Lorazepam (Ativan) 1 mg IM Q4HR PRN; Protocol PRN Reason: Agitation Stop: 08/25/16 10:37 Last Admin: 06/26/16 14:01 Dose: 1 mg Morphine Sulfate (Morphine) 1 mg IV Q4H PRN PRN Reason: SEVERE PAIN Stop: 08/22/16 04:40 Last Admin: 06/28/16 17:12 Dose: 1 mg Ondansetron HCl (Zofran Odt) 4 mg PO Q6HR PRN PRN Reason: Nausea / Vomiting Stop: 08/22/16 20:30 Pantoprazole Sodium (Protonix) 40 mg PO DAILY [facility] Stop: 08/23/16 08:59 Last Admin: 06/29/16 08:08 Dose: Not Given Quetiapine Fumarate (Seroquel) 100 mg PO TID [facility] PRN Reason: Protocol Stop: 08/26/16 08:59 Last Admin: 06/29/16 08:09 Dose: Not Given Rifaximin (Xifaxan) 600 mg PO BID [facility] Stop: 08/25/16 16:59 Last Admin: 06/29/16 08:09 Dose: Not Given Vitamin B Complex/Vit C/Folic Acid (Vitamin B Complex W/Vitamin C) 1 tab PO DAILY [facility] Stop: 08/23/16 08:59 Last Admin: 06/29/16 08:09 Dose: Not Given General: Alert, Mild distress HEENT: Atraumatic, Mucous membr. moist/pink Neck: Supple, +2 carotid pulse wo bruit Cardiovascular: Regular rate, Normal S1, Normal S2 Lungs: Other (few rhonchi) Abdomen: Bowel sounds, Soft Extremities: Edema Neurological: Sensation intact Skin: no Rash Assessment/Plan - Problem List Patient Problems: All Active Problems MEDICAL EVALUATION PER DR FRY (Acute) - Assessment Assessment: esrd on hd persistent cellulitis b/l lower ext acute on chronic anemia possible gi bleed ohs chronic a. fib hypothyroid anasarca functional quadriplegia chronic venous stasis dermatitis acute decomp psychosis - Plan Plan: pt. pulled out perma cath schedule for PICC line, then transfuse 2 units PRBC hgb/hct slightly improved to 7/20.9 transfuse 2 units prbc then placement of perma cath
[2016-06-29] MEDS ORDERED: Midazolam 1mg/ml 2 ml vial IV ONE (16:15)
[2016-06-29] MEDS ORDERED: Lidocaine 2% Vial 20 mL Vial ONE (16:16)
[2016-06-29] MEDS ORDERED: Meperidine 25 mg/mL 1mL Syr IVP PRN (16:32)
[2016-06-29] MEDS ORDERED: Lactated Ringer 1,000 ML IV SCH (16:45)
[2016-06-29 18:17] LABS: % BASOPHILS 0.2 % (0.0-2.0); % EOSINOPHILS 18.1 % (0.0-5.0); % LYMPHOCYTES 13.6 % (20.0-50.0); % MONOCYTES 13.1 % (2.0-10.0); MEAN CELL VOLUME 87.7 fl (80-99); MEAN CORPUSCULAR HEMOGLOBIN 29.2 pg (26.0-30.0); MEAN CORPUSCULAR HGB CONC 33.3 pg (28.0-36.0); MEAN PLATELET VOLUME 8.5 fl; NEUTROPHILE ABSOLUTE 1.9 Th/cmm (1.8-8.0); PLATELET COUNT 109 Th/cmm (150-400); RED BLOOD COUNT 2.46 Mil/cmm (4.30-5.70); RED CELL DISTRIBUTION WIDTH 16.3 % (11.5-20.0); WHITE BLOOD COUNT 3.4 Th/cmm (4.8-10.8)
--- NOTE | 2016-06-29 18:30 | General Progress Note ---
Subjective - Review of Systems Service Date: 06/29/16 Subjective: EVENTS NOTED STILL SOMEWHAT CONFUSED. Objective - Results Result Diagrams: 06/29/16 07:55 06/29/16 05:49 Recent Labs: Laboratory Last Values WBC 4.2 Th/cmm (4.8-10.8) L 06/29/16 07:55 RBC 2.40 Mil/cmm (4.30-5.70) L 06/29/16 07:55 Hgb 7.0 gm/dL (13.2-17.3) L* 06/29/16 07:55 Hct 20.9 % (39.0-49.0) L* 06/29/16 07:55 MCV 87.1 fl (80-99) 06/29/16 07:55 MCH 29.3 pg (26.0-30.0) 06/29/16 07:55 MCHC Differential 33.7 pg (28.0-36.0) 06/29/16 07:55 RDW 16.5 % (11.5-20.0) 06/29/16 07:55 Plt Count 114 Th/cmm (150-400) L 06/29/16 05:49 MPV 8.8 fl 06/29/16 07:55 Neutrophils % 50.8 % (40.0-80.0) 06/29/16 07:55 Band Neutrophils % 2 % (0-10) 06/25/16 08:30 Lymphocytes % 17.0 % (20.0-50.0) L 06/29/16 07:55 Monocytes % 12.6 % (2.0-10.0) H 06/29/16 07:55 Eosinophils % 19.5 % (0.0-5.0) H 06/29/16 07:55 Basophils % 0.1 % (0.0-2.0) 06/29/16 07:55 Neutrophils (Manual) 41 % (40-80) 06/29/16 05:49 Lymphocytes 16 % (20-50) L 06/29/16 05:49 Monocytes 18 % (2-10) H 06/29/16 05:49 Eosinophils 22 % (0-5) H 06/29/16 05:49 Basophils 3 % (0-3) 06/29/16 05:49 Hypochromia 1+ 06/22/16 19:33 Platelet Estimate DECREASED PLATELETS (NORMAL) 06/29/16 05:49 Platelet Morphology NORMAL (NORMAL) 06/29/16 05:49 Anisocytosis 1+ 06/29/16 05:49 RBC Morph Micro Appear ABNORMAL (NORMAL) 06/29/16 05:49 PT 12.3 SECONDS (9.5-11.5) H 06/28/16 04:38 INR 1.22 (0.5-1.4) 06/28/16 04:38 PTT (Actin FS) 28.3 SECONDS (26.0-38.0) 06/28/16 04:38 Specimen Source art 06/22/16 20:03 Sample Site Right Radial 06/22/16 20:03 pH 7.49 (7.35-7.45) H 06/22/16 20:03 pCO2 34.0 mmHg (35.0-45.0) L 06/22/16 20:03 pO2 97.0 mmHg (80.0-100.0) 06/22/16 20:03 HCO3 25.9 mmol/L (20.0-26.0) 06/22/16 20:03 Base Excess 2.8 mmol/L (-3.0-3.0) 06/22/16 20:03 O2 Saturation 98.0 % (92.0-100.0) 06/22/16 20:03 Estuardo Test P 06/22/16 20:03 Vent Rate NA 06/22/16 20:03 Inspired O2 21 06/22/16 20:03 Tidal Volume NA 06/22/16 20:03 PEEP NA 06/22/16 20:03 Pressure (ins/psv/peep) NA 06/22/16 20:03 Critical Value RPINEIRA 06/22/16 20:03 Sodium 135 mEq/L (136-145) L 06/29/16 05:49 Potassium 3.3 mEq/L (3.5-5.1) L 06/29/16 05:49 Chloride 101 mEq/L (98-107) 06/29/16 05:49 Carbon Dioxide 24.1 mEq/L (21.0-31.0) 06/29/16 05:49 Anion Gap 13.2 (7.0-16.0) 06/29/16 05:49 BUN 76 mg/dL (7-25) H 06/29/16 05:49 Creatinine 3.8 mg/dL (0.7-1.3) H 06/29/16 05:49 Est GFR ( Amer) 21.9 ml/min (>90) 06/29/16 05:49 Est GFR (Non-Af Amer) 18.1 ml/min 06/29/16 05:49 BUN/Creatinine Ratio 20.0 06/29/16 05:49 Glucose 102 mg/dL (70-105) 06/29/16 05:49 Calcium 9.4 mg/dL (8.6-10.3) 06/29/16 05:49 Phosphorus 5.1 mg/dL (2.5-5.0) H 06/23/16 11:25 Magnesium 2.1 mg/dL (1.9-2.7) 06/23/16 11:25 Iron 42 ug/dL (38-169) 06/28/16 04:38 TIBC 269 ug/dL (250-450) 06/28/16 04:38 Iron Saturation 16 % (15-55) 06/28/16 04:38 Unsaturated IBC 227 ug/dL (111-343) 06/28/16 04:38 Total Bilirubin 1.4 mg/dL (0.3-1.0) H 06/29/16 05:49 Direct Bilirubin 0.70 mg/dL (0.0-0.2) H 06/28/16 04:38 GGTP 14 IU/L (0-65) 06/28/16 04:38 AST 23 U/L (13-39) 06/29/16 05:49 ALT 12 U/L (7-52) 06/29/16 05:49 Alkaline Phosphatase 27 U/L (34-104) L 06/29/16 05:49 Ammonia 173 umol/L (16-53) H 06/29/16 05:49 Troponin I < 0.01 ng/mL (0.01-0.05) L 06/22/16 19:33 B-Natriuretic Peptide 668.0 pg/mL (5.0-100.0) H 06/22/16 19:33 Total Protein 7.6 gm/dL (6.0-8.3) 06/29/16 05:49 Albumin 2.9 gm/dL (4.2-5.5) L 06/29/16 05:49 Globulin 4.7 gm/dL 06/29/16 05:49 Albumin/Globulin Ratio 0.6 (1.0-1.8) L 06/29/16 05:49 Urine Source CLEAN C 06/29/16 05:55 Urine Color YELLOW 06/29/16 05:55 Urine Clarity HAZY (CLEAR) 06/29/16 05:55 Urine pH 5.5 06/29/16 05:55 Ur Specific [place] 1.015 (1.005-1.030) 06/29/16 05:55 Urine Protein 30 mg/dL (NEGATIVE) H 06/29/16 05:55 Urine Glucose (UA) NEGATIVE mg/dL (NEGATIVE) 06/29/16 05:55 Urine Ketones NEGATIVE mg/dL (NEGATIVE) 06/29/16 05:55 Urine Blood NEGATIVE (NEGATIVE) 06/29/16 05:55 Urine Nitrate NEGATIVE (NEGATIVE) 06/29/16 05:55 Urine Bilirubin NEGATIVE (NEGATIVE) 06/29/16 05:55 Urine Urobilinogen 0.2 E.U./dL (0.2 - 1.0) 06/29/16 05:55 Ur Leukocyte Esterase TRACE (NEGATIVE) H 06/29/16 05:55 Urine RBC 0-2 /hpf (0-5) H 06/29/16 05:55 Urine WBC 6-10 /hpf (0-5) H 06/29/16 05:55 Ur Epithelial Cells FEW /lpf (FEW) 06/29/16 05:55 Urine Bacteria MANY /hpf (NONE SEEN) 06/29/16 05:55 Stool Occult Blood POSITIVE (NEGATIVE) 06/24/16 16:00 Random Vancomycin 13.4 ug/mL (5.0-40.0) 06/28/16 04:38 RPR NONREACTIVE (NONREACTIVE) 06/22/16 19:33 Blood Type A POSITIVE 06/28/16 04:38 Antibody Screen NEGATIVE 06/28/16 04:38 Crossmatch See Detail 06/28/16 04:38 - Physical Exam Vitals and I&O: Vital Signs Temp 97.9 F 06/29/16 08:00 Pulse 112 06/29/16 08:00 Resp 18 06/29/16 08:00 BP 101/51 06/29/16 08:00 Pulse Ox 99 06/29/16 08:00 Intake & Output 06/28/16 06/29/16 06/29/16 18:59 06:59 18:59 Intake Total 900 620 Output Total 1101 Balance 900 -481 Intake: Oral 900 620 Output: Urine 1100 Stool 1 Other: # Voids 3 Active Medications: Current Medications Acetaminophen (Tylenol) 325 mg PO Q6HR PRN PRN Reason: Mild Pain or Fever >101 Stop: 08/22/16 20:30 Acetaminophen/Hydrocodone Bitart ([place] 10 Mg/325 Mg) 1 tab PO Q8H PRN PRN Reason: Pain (Moderate) Stop: 08/22/16 20:30 Last Admin: 06/28/16 02:07 Dose: 1 tab Albuterol/Ipratropium (Duoneb Neb) 3 ml HHN Q2HR PRN PRN Reason: Shortness of Breath or Wheeze Cholecalciferol (Vitamin D3) 2,000 iu PO DAILY [facility] Stop: 08/23/16 08:59 Last Admin: 06/29/16 09:00 Dose: Not Given Diphenhydramine HCl (Benadryl 50 Mg/Ml) 50 mg IM Q8HR PRN PRN Reason: Agitation Stop: 08/25/16 12:10 Docusate Sodium (Colace) 100 mg PO BID [facility] Stop: 08/22/16 16:59 Last Admin: 06/29/16 08:08 Dose: Not Given Epoetin Bernardino (Epogen) 10,000 units SUBQ TuThSa [facility] Stop: 08/22/16 14:29 Last Admin: 06/28/16 15:00 Dose: Not Given Haloperidol Lactate (Haldol) 5 mg IM Q8HR PRN PRN Reason: Agitation Stop: 08/25/16 12:10 Lactated Ringer's (Lactated Ringer) 1,000 mls @ 0 mls/hr IV .Q0M MARQUISE PRN Reason: TKO Stop: 06/30/16 16:44 Lactulose (Cephulac) 30 gm PO TID [facility] Stop: 08/25/16 13:59 Last Admin: 06/29/16 08:08 Dose: Not Given Levothyroxine Sodium (Synthroid) 0.05 mg PO QDAC [facility] Stop: 08/23/16 07:29 Last Admin: 06/29/16 08:08 Dose: Not Given Lorazepam (Ativan) 1 mg IM Q4HR PRN; Protocol PRN Reason: Agitation Stop: 08/25/16 10:37 Last Admin: 06/26/16 14:01 Dose: 1 mg Meperidine HCl (Demerol) 25 mg IVP UD PRN PRN Reason: POST-OP PAIN Stop: 06/30/16 16:31 Morphine Sulfate (Morphine) 1 mg IV Q4H PRN PRN Reason: SEVERE PAIN Stop: 08/22/16 04:40 Last Admin: 06/28/16 17:12 Dose: 1 mg Ondansetron HCl (Zofran Odt) 4 mg PO Q6HR PRN PRN Reason: Nausea / Vomiting Stop: 08/22/16 20:30 Ondansetron HCl (Zofran) 4 mg IV PRN PRN PRN Reason: Nausea / Vomiting Stop: 06/30/16 16:31 Pantoprazole Sodium (Protonix) 40 mg PO DAILY MARQUISE Stop: 08/23/16 08:59 Last Admin: 06/29/16 08:08 Dose: Not Given Quetiapine Fumarate (Seroquel) 100 mg PO TID MARQUISE PRN Reason: Protocol Stop: 08/26/16 08:59 Last Admin: 06/29/16 08:09 Dose: Not Given Rifaximin (Xifaxan) 600 mg PO BID [facility] Stop: 08/25/16 16:59 Last Admin: 06/29/16 08:09 Dose: Not Given Vitamin B Complex/Vit C/Folic Acid (Vitamin B Complex W/Vitamin C) 1 tab PO DAILY [facility] Stop: 08/23/16 08:59 Last Admin: 06/29/16 08:09 Dose: Not Given General: No acute distress, Other (MORBIDLY OBESE) HEENT: Atraumatic Neck: Supple Cardiovascular: Regular rate Lungs: Normal air movement Abdomen: Bowel sounds, Soft, Obese, no Tender Assessment/Plan - Problem List Patient Problems: All Active Problems MEDICAL EVALUATION PER DR FRY (Acute) - Assessment Assessment: 1. ANEMIA AND OCCULT GI BLEED. 2. ESRD - HD DEP; PULLED OUT ACCESS LINE AND NOW REPLACED. 3. MORBID OBESITY. 4. ALOC WITH ELEVATED NH3 LEVEL - R/O HEP ENCEPH. 5. MILDLY ELEVATED LFT'S - R/O CHRONIC LIVER DISEASE AND CIRRHOSIS. - Plan Plan: 1. OFFERED LIVER LABS - PATIENT REFUSED BLOOD DRAWS. 2. OFFERED ABD US - PATIENT REFUSED. 3. EGD AND COLONOSCOPY OFFERED - PATIENT REFUSED AGAIN. 4. PSYCH F/U TO DETERMINE ABILITY TO PROVIDE CONSENT. 5. PROTONIX. 6. MONITOR HGB; TRANSFUSE PRN. 7. LACTULOSE AND RIFAXIMIN.
[2016-06-29 18:36] LABS: HEMOGLOBIN 7.2 gm/dL (13.2-17.3)
[2016-06-29 18:37] LABS: HEMATOCRIT 21.6 % (39.0-49.0)
--- NOTE | 2016-06-29 21:08 | Operative Report ---
PREOPERATIVE DIAGNOSES: 1. End-stage renal disease. 2. Morbid obesity. 3. Anemia, gastrointestinal bleeding, etiology (?). POSTOPERATIVE DIAGNOSES: 1. End-stage renal disease. 2. Morbid obesity. 3. Anemia, gastrointestinal bleeding, etiology (?). OPERATION DONE: Placement of Perm-A-Cath in left subclavian vein under fluoroscopy. SURGEON: Irlanda Willingham M.D. ANESTHESIA: MAC anesthesia. ANESTHESIOLOGIST: Richie Schmitz M.D. ESTIMATED BLOOD LOSS: 5 mL. INDICATIONS FOR SURGERY: The patient with psychiatric issues who pulled out his Anton catheter a few days ago. Since then, he has refused to have the procedure done. Psychiatrist was called in. The patient has no family and consent finally was signed by the patient. Hemoglobin was 6.9 g and 2 units of packed RBC were given. DESCRIPTION OF PROCEDURE: The patient was given IV sedation. The left chest was prepped and draped in appropriate manner. 1% lidocaine was used to infiltrate the area selected on ultrasound. An incision was made and size 18 needle was used to locate the vein. The guidewire was inserted, the dilator and then the Perm-A-Cath 28 cm in length. So, all done under fluoroscopy without any incident. The catheter was anchored to the chest wall with 2-0 nylon. Portable chest x-ray will be done. JOB# [id number] [email or web address]
[2016-06-30] MEDS: Levothyroxine 0.05 Mg Tab PO SCH (06:46)
--- NOTE | 2016-06-30 08:24 | General Progress Note ---
Subjective - Review of Systems Service Date: 06/30/16 Subjective: EVENTS NOTED. STILL SOMEWHAT CONFUSED. Objective - Results Result Diagrams: 06/29/16 18:08 06/29/16 05:49 Recent Labs: Laboratory Last Values WBC 3.4 Th/cmm (4.8-10.8) L 06/29/16 18:08 RBC 2.46 Mil/cmm (4.30-5.70) L 06/29/16 18:08 Hgb 7.2 gm/dL (13.2-17.3) L* 06/29/16 18:08 Hct 21.6 % (39.0-49.0) L* 06/29/16 18:08 MCV 87.7 fl (80-99) 06/29/16 18:08 MCH 29.2 pg (26.0-30.0) 06/29/16 18:08 MCHC Differential 33.3 pg (28.0-36.0) 06/29/16 18:08 RDW 16.3 % (11.5-20.0) 06/29/16 18:08 Plt Count 109 Th/cmm (150-400) L 06/29/16 18:08 MPV 8.5 fl 06/29/16 18:08 Neutrophils % 55.0 % (40.0-80.0) 06/29/16 18:08 Band Neutrophils % 2 % (0-10) 06/25/16 08:30 Lymphocytes % 13.6 % (20.0-50.0) L 06/29/16 18:08 Monocytes % 13.1 % (2.0-10.0) H 06/29/16 18:08 Eosinophils % 18.1 % (0.0-5.0) H 06/29/16 18:08 Basophils % 0.2 % (0.0-2.0) 06/29/16 18:08 Neutrophils (Manual) 41 % (40-80) 06/29/16 05:49 Lymphocytes 16 % (20-50) L 06/29/16 05:49 Monocytes 18 % (2-10) H 06/29/16 05:49 Eosinophils 22 % (0-5) H 06/29/16 05:49 Basophils 3 % (0-3) 06/29/16 05:49 Hypochromia 1+ 06/22/16 19:33 Platelet Estimate DECREASED PLATELETS (NORMAL) 06/29/16 05:49 Platelet Morphology NORMAL (NORMAL) 06/29/16 05:49 Anisocytosis 1+ 06/29/16 05:49 RBC Morph Micro Appear ABNORMAL (NORMAL) 06/29/16 05:49 PT 12.3 SECONDS (9.5-11.5) H 06/28/16 04:38 INR 1.22 (0.5-1.4) 06/28/16 04:38 PTT (Actin FS) 28.3 SECONDS (26.0-38.0) 06/28/16 04:38 Specimen Source art 06/22/16 20:03 Sample Site Right Radial 06/22/16 20:03 pH 7.49 (7.35-7.45) H 06/22/16 20:03 pCO2 34.0 mmHg (35.0-45.0) L 06/22/16 20:03 pO2 97.0 mmHg (80.0-100.0) 06/22/16 20:03 HCO3 25.9 mmol/L (20.0-26.0) 06/22/16 20:03 Base Excess 2.8 mmol/L (-3.0-3.0) 06/22/16 20:03 O2 Saturation 98.0 % (92.0-100.0) 06/22/16 20:03 Estuardo Test P 06/22/16 20:03 Vent Rate NA 06/22/16 20:03 Inspired O2 21 06/22/16 20:03 Tidal Volume NA 06/22/16 20:03 PEEP NA 06/22/16 20:03 Pressure (ins/psv/peep) NA 06/22/16 20:03 Critical Value RPINEIRA 06/22/16 20:03 Sodium 135 mEq/L (136-145) L 06/29/16 05:49 Potassium 3.3 mEq/L (3.5-5.1) L 06/29/16 05:49 Chloride 101 mEq/L (98-107) 06/29/16 05:49 Carbon Dioxide 24.1 mEq/L (21.0-31.0) 06/29/16 05:49 Anion Gap 13.2 (7.0-16.0) 06/29/16 05:49 BUN 76 mg/dL (7-25) H 06/29/16 05:49 Creatinine 3.8 mg/dL (0.7-1.3) H 06/29/16 05:49 Est GFR ( Amer) 21.9 ml/min (>90) 06/29/16 05:49 Est GFR (Non-Af Amer) 18.1 ml/min 06/29/16 05:49 BUN/Creatinine Ratio 20.0 06/29/16 05:49 Glucose 102 mg/dL (70-105) 06/29/16 05:49 Calcium 9.4 mg/dL (8.6-10.3) 06/29/16 05:49 Phosphorus 5.1 mg/dL (2.5-5.0) H 06/23/16 11:25 Magnesium 2.1 mg/dL (1.9-2.7) 06/23/16 11:25 Iron 42 ug/dL (38-169) 06/28/16 04:38 TIBC 269 ug/dL (250-450) 06/28/16 04:38 Iron Saturation 16 % (15-55) 06/28/16 04:38 Unsaturated IBC 227 ug/dL (111-343) 06/28/16 04:38 Ferritin 150 ng/mL (30-400) 06/26/16 08:30 Total Bilirubin 1.4 mg/dL (0.3-1.0) H 06/29/16 05:49 Direct Bilirubin 0.70 mg/dL (0.0-0.2) H 06/28/16 04:38 GGTP 14 IU/L (0-65) 06/28/16 04:38 AST 23 U/L (13-39) 06/29/16 05:49 ALT 12 U/L (7-52) 06/29/16 05:49 Alkaline Phosphatase 27 U/L (34-104) L 06/29/16 05:49 Ammonia 173 umol/L (16-53) H 06/29/16 05:49 Troponin I < 0.01 ng/mL (0.01-0.05) L 06/22/16 19:33 B-Natriuretic Peptide 668.0 pg/mL (5.0-100.0) H 06/22/16 19:33 Total Protein 7.6 gm/dL (6.0-8.3) 06/29/16 05:49 Albumin 2.9 gm/dL (4.2-5.5) L 06/29/16 05:49 Globulin 4.7 gm/dL 06/29/16 05:49 Albumin/Globulin Ratio 0.6 (1.0-1.8) L 06/29/16 05:49 Urine Source CLEAN C 06/29/16 05:55 Urine Color YELLOW 06/29/16 05:55 Urine Clarity HAZY (CLEAR) 06/29/16 05:55 Urine pH 5.5 06/29/16 05:55 Ur Specific [place] 1.015 (1.005-1.030) 06/29/16 05:55 Urine Protein 30 mg/dL (NEGATIVE) H 06/29/16 05:55 Urine Glucose (UA) NEGATIVE mg/dL (NEGATIVE) 06/29/16 05:55 Urine Ketones NEGATIVE mg/dL (NEGATIVE) 06/29/16 05:55 Urine Blood NEGATIVE (NEGATIVE) 06/29/16 05:55 Urine Nitrate NEGATIVE (NEGATIVE) 06/29/16 05:55 Urine Bilirubin NEGATIVE (NEGATIVE) 06/29/16 05:55 Urine Urobilinogen 0.2 E.U./dL (0.2 - 1.0) 06/29/16 05:55 Ur Leukocyte Esterase TRACE (NEGATIVE) H 06/29/16 05:55 Urine RBC 0-2 /hpf (0-5) H 06/29/16 05:55 Urine WBC 6-10 /hpf (0-5) H 06/29/16 05:55 Ur Epithelial Cells FEW /lpf (FEW) 06/29/16 05:55 Urine Bacteria MANY /hpf (NONE SEEN) 06/29/16 05:55 Stool Occult Blood POSITIVE (NEGATIVE) 06/24/16 16:00 Random Vancomycin 13.4 ug/mL (5.0-40.0) 06/28/16 04:38 RPR NONREACTIVE (NONREACTIVE) 06/22/16 19:33 Blood Type A POSITIVE 06/28/16 04:38 Antibody Screen NEGATIVE 06/28/16 04:38 Crossmatch See Detail 06/28/16 04:38 - Physical Exam Vitals and I&O: Vital Signs Temp 98.5 F 06/30/16 08:00 Pulse 92 06/30/16 08:00 Resp 18 06/30/16 08:00 BP 99/63 06/30/16 08:00 Pulse Ox 95 06/30/16 08:00 Intake & Output 06/29/16 06/30/16 06/30/16 18:59 06:59 18:59 Intake Total 250 Balance 250 Intake: Oral 250 Active Medications: Current Medications Acetaminophen (Tylenol) 325 mg PO Q6HR PRN PRN Reason: Mild Pain or Fever >101 Stop: 08/22/16 20:30 Acetaminophen/Hydrocodone Bitart ([place] 10 Mg/325 Mg) 1 tab PO Q8H PRN PRN Reason: Pain (Moderate) Stop: 08/22/16 20:30 Last Admin: 06/28/16 02:07 Dose: 1 tab Albuterol/Ipratropium (Duoneb Neb) 3 ml HHN Q2HR PRN PRN Reason: Shortness of Breath or Wheeze Cholecalciferol (Vitamin D3) 2,000 iu PO DAILY [facility] Stop: 08/23/16 08:59 Last Admin: 06/29/16 09:00 Dose: Not Given Diphenhydramine HCl (Benadryl 50 Mg/Ml) 50 mg IM Q8HR PRN PRN Reason: Agitation Stop: 08/25/16 12:10 Docusate Sodium (Colace) 100 mg PO BID [facility] Stop: 08/22/16 16:59 Last Admin: 06/29/16 08:08 Dose: Not Given Epoetin Bernardino (Epogen) 10,000 units SUBQ TuThSa [facility] Stop: 08/22/16 14:29 Last Admin: 06/28/16 15:00 Dose: Not Given Haloperidol Lactate (Haldol) 5 mg IM Q8HR PRN PRN Reason: Agitation Stop: 08/25/16 12:10 Lactated Ringer's (Lactated Ringer) 1,000 mls @ 0 mls/hr IV .Q0M MARQUISE PRN Reason: TKO Stop: 06/30/16 16:44 Lactulose (Cephulac) 30 gm PO TID [facility] Stop: 08/25/16 13:59 Last Admin: 06/29/16 22:17 Dose: 30 gm Levothyroxine Sodium (Synthroid) 0.05 mg PO QDAC [facility] Stop: 08/23/16 07:29 Last Admin: 06/30/16 06:46 Dose: 0.05 mg Lorazepam (Ativan) 1 mg IM Q4HR PRN; Protocol PRN Reason: Agitation Stop: 08/25/16 10:37 Last Admin: 06/26/16 14:01 Dose: 1 mg Meperidine HCl (Demerol) 25 mg IVP UD PRN PRN Reason: POST-OP PAIN Stop: 06/30/16 16:31 Morphine Sulfate (Morphine) 1 mg IV Q4H PRN PRN Reason: SEVERE PAIN Stop: 08/22/16 04:40 Last Admin: 06/28/16 17:12 Dose: 1 mg Ondansetron HCl (Zofran Odt) 4 mg PO Q6HR PRN PRN Reason: Nausea / Vomiting Stop: 08/22/16 20:30 Ondansetron HCl (Zofran) 4 mg IV PRN PRN PRN Reason: Nausea / Vomiting Stop: 06/30/16 16:31 Pantoprazole Sodium (Protonix) 40 mg PO DAILY [facility] Stop: 08/23/16 08:59 Last Admin: 06/29/16 08:08 Dose: Not Given Quetiapine Fumarate (Seroquel) 100 mg PO TID MARQUISE PRN Reason: Protocol Stop: 08/26/16 08:59 Last Admin: 06/29/16 22:18 Dose: 100 mg Rifaximin (Xifaxan) 600 mg PO BID [facility] Stop: 08/25/16 16:59 Last Admin: 06/29/16 08:09 Dose: Not Given Vitamin B Complex/Vit C/Folic Acid (Vitamin B Complex W/Vitamin C) 1 tab PO DAILY [facility] Stop: 08/23/16 08:59 Last Admin: 06/29/16 08:09 Dose: Not Given General: No acute distress, Other (LETHARGIC) HEENT: Atraumatic Neck: Supple Cardiovascular: Regular rate Lungs: Clear to auscultation Abdomen: Bowel sounds, Soft, no Tender Assessment/Plan - Problem List Patient Problems: All Active Problems MEDICAL EVALUATION PER DR FRY (Acute) - Assessment Assessment: 1. ANEMIA AND OCCULT GI BLEED. 2. ESRD - HD DEP; PULLED OUT ACCESS LINE AND NOW REPLACED. 3. MORBID OBESITY. 4. ALOC WITH ELEVATED NH3 LEVEL - R/O HEP ENCEPH. 5. MILDLY ELEVATED LFT'S - R/O CHRONIC LIVER DISEASE AND CIRRHOSIS. - Plan Plan: 1. F/U LIVER LABS - PATIENT REFUSING SOME BLOOD DRAWS. 2. OFFERED ABD US - PATIENT REFUSED. 3. EGD AND COLONOSCOPY OFFERED - PATIENT REFUSED AGAIN. 4. PSYCH F/U TO DETERMINE ABILITY TO PROVIDE CONSENT. 5. PROTONIX. 6. MONITOR HGB; TRANSFUSE PRN. 7. LACTULOSE AND RIFAXIMIN.
--- NOTE | 2016-06-30 09:42 | Diagnostic Imaging Report ---
Portable chest x-ray HISTORY: Shortness of breath, vascular catheter placement Compared with the prior exam of June 28, 2016, a left-sided vascular catheter has been inserted. The tip is in the region of the superior vena cava. Decreased infiltrate within the right lower lobe. No pneumothorax. The heart remains enlarged. IMPRESSION: 1. New vascular catheter with the tip in the region of the superior vena cava 2. Decreased infiltrate right lower lobe 3. Persistent cardiomegaly
--- NOTE | 2016-06-30 09:46 | General Progress Note ---
Subjective - Review of Systems Service Date: 06/30/16 Events since last encounter: had dialysis yesterday Permacath in place, hopefully patient does not pull it out Objective - Results Result Diagrams: 06/29/16 18:08 06/29/16 05:49 Recent Labs: Laboratory Last Values WBC 3.4 Th/cmm (4.8-10.8) L 06/29/16 18:08 RBC 2.46 Mil/cmm (4.30-5.70) L 06/29/16 18:08 Hgb 7.2 gm/dL (13.2-17.3) L* 06/29/16 18:08 Hct 21.6 % (39.0-49.0) L* 06/29/16 18:08 MCV 87.7 fl (80-99) 06/29/16 18:08 MCH 29.2 pg (26.0-30.0) 06/29/16 18:08 MCHC Differential 33.3 pg (28.0-36.0) 06/29/16 18:08 RDW 16.3 % (11.5-20.0) 06/29/16 18:08 Plt Count 109 Th/cmm (150-400) L 06/29/16 18:08 MPV 8.5 fl 06/29/16 18:08 Neutrophils % 55.0 % (40.0-80.0) 06/29/16 18:08 Band Neutrophils % 2 % (0-10) 06/25/16 08:30 Lymphocytes % 13.6 % (20.0-50.0) L 06/29/16 18:08 Monocytes % 13.1 % (2.0-10.0) H 06/29/16 18:08 Eosinophils % 18.1 % (0.0-5.0) H 06/29/16 18:08 Basophils % 0.2 % (0.0-2.0) 06/29/16 18:08 Neutrophils (Manual) 41 % (40-80) 06/29/16 05:49 Lymphocytes 16 % (20-50) L 06/29/16 05:49 Monocytes 18 % (2-10) H 06/29/16 05:49 Eosinophils 22 % (0-5) H 06/29/16 05:49 Basophils 3 % (0-3) 06/29/16 05:49 Hypochromia 1+ 06/22/16 19:33 Platelet Estimate DECREASED PLATELETS (NORMAL) 06/29/16 05:49 Platelet Morphology NORMAL (NORMAL) 06/29/16 05:49 Anisocytosis 1+ 06/29/16 05:49 RBC Morph Micro Appear ABNORMAL (NORMAL) 06/29/16 05:49 PT 12.3 SECONDS (9.5-11.5) H 06/28/16 04:38 INR 1.22 (0.5-1.4) 06/28/16 04:38 PTT (Actin FS) 28.3 SECONDS (26.0-38.0) 06/28/16 04:38 Specimen Source art 06/22/16 20:03 Sample Site Right Radial 06/22/16 20:03 pH 7.49 (7.35-7.45) H 06/22/16 20:03 pCO2 34.0 mmHg (35.0-45.0) L 06/22/16 20:03 pO2 97.0 mmHg (80.0-100.0) 06/22/16 20:03 HCO3 25.9 mmol/L (20.0-26.0) 06/22/16 20:03 Base Excess 2.8 mmol/L (-3.0-3.0) 06/22/16 20:03 O2 Saturation 98.0 % (92.0-100.0) 06/22/16 20:03 Estuardo Test P 06/22/16 20:03 Vent Rate NA 06/22/16 20:03 Inspired O2 21 06/22/16 20:03 Tidal Volume NA 06/22/16 20:03 PEEP NA 06/22/16 20:03 Pressure (ins/psv/peep) NA 06/22/16 20:03 Critical Value RPINEIRA 06/22/16 20:03 Sodium 135 mEq/L (136-145) L 06/29/16 05:49 Potassium 3.3 mEq/L (3.5-5.1) L 06/29/16 05:49 Chloride 101 mEq/L (98-107) 06/29/16 05:49 Carbon Dioxide 24.1 mEq/L (21.0-31.0) 06/29/16 05:49 Anion Gap 13.2 (7.0-16.0) 06/29/16 05:49 BUN 76 mg/dL (7-25) H 06/29/16 05:49 Creatinine 3.8 mg/dL (0.7-1.3) H 06/29/16 05:49 Est GFR ( Amer) 21.9 ml/min (>90) 06/29/16 05:49 Est GFR (Non-Af Amer) 18.1 ml/min 06/29/16 05:49 BUN/Creatinine Ratio 20.0 06/29/16 05:49 Glucose 102 mg/dL (70-105) 06/29/16 05:49 Calcium 9.4 mg/dL (8.6-10.3) 06/29/16 05:49 Phosphorus 5.1 mg/dL (2.5-5.0) H 06/23/16 11:25 Magnesium 2.1 mg/dL (1.9-2.7) 06/23/16 11:25 Iron 42 ug/dL (38-169) 06/28/16 04:38 TIBC 269 ug/dL (250-450) 06/28/16 04:38 Iron Saturation 16 % (15-55) 06/28/16 04:38 Unsaturated IBC 227 ug/dL (111-343) 06/28/16 04:38 Ferritin 150 ng/mL (30-400) 06/26/16 08:30 Total Bilirubin 1.4 mg/dL (0.3-1.0) H 06/29/16 05:49 Direct Bilirubin 0.70 mg/dL (0.0-0.2) H 06/28/16 04:38 GGTP 14 IU/L (0-65) 06/28/16 04:38 AST 23 U/L (13-39) 06/29/16 05:49 ALT 12 U/L (7-52) 06/29/16 05:49 Alkaline Phosphatase 27 U/L (34-104) L 06/29/16 05:49 Ammonia 173 umol/L (16-53) H 06/29/16 05:49 Troponin I < 0.01 ng/mL (0.01-0.05) L 06/22/16 19:33 B-Natriuretic Peptide 668.0 pg/mL (5.0-100.0) H 06/22/16 19:33 Total Protein 7.6 gm/dL (6.0-8.3) 06/29/16 05:49 Albumin 2.9 gm/dL (4.2-5.5) L 06/29/16 05:49 Globulin 4.7 gm/dL 06/29/16 05:49 Albumin/Globulin Ratio 0.6 (1.0-1.8) L 06/29/16 05:49 Urine Source CLEAN C 06/29/16 05:55 Urine Color YELLOW 06/29/16 05:55 Urine Clarity HAZY (CLEAR) 06/29/16 05:55 Urine pH 5.5 06/29/16 05:55 Ur Specific [place] 1.015 (1.005-1.030) 06/29/16 05:55 Urine Protein 30 mg/dL (NEGATIVE) H 06/29/16 05:55 Urine Glucose (UA) NEGATIVE mg/dL (NEGATIVE) 06/29/16 05:55 Urine Ketones NEGATIVE mg/dL (NEGATIVE) 06/29/16 05:55 Urine Blood NEGATIVE (NEGATIVE) 06/29/16 05:55 Urine Nitrate NEGATIVE (NEGATIVE) 06/29/16 05:55 Urine Bilirubin NEGATIVE (NEGATIVE) 06/29/16 05:55 Urine Urobilinogen 0.2 E.U./dL (0.2 - 1.0) 06/29/16 05:55 Ur Leukocyte Esterase TRACE (NEGATIVE) H 06/29/16 05:55 Urine RBC 0-2 /hpf (0-5) H 06/29/16 05:55 Urine WBC 6-10 /hpf (0-5) H 06/29/16 05:55 Ur Epithelial Cells FEW /lpf (FEW) 06/29/16 05:55 Urine Bacteria MANY /hpf (NONE SEEN) 06/29/16 05:55 Stool Occult Blood POSITIVE (NEGATIVE) 06/24/16 16:00 Random Vancomycin 13.4 ug/mL (5.0-40.0) 06/28/16 04:38 RPR NONREACTIVE (NONREACTIVE) 06/22/16 19:33 Blood Type A POSITIVE 06/28/16 04:38 Antibody Screen NEGATIVE 06/28/16 04:38 Crossmatch See Detail 06/28/16 04:38 - Physical Exam Vitals and I&O: Vital Signs Temp 98.5 F 06/30/16 08:00 Pulse 92 02/11/17 08:00 Resp 18 06/30/16 08:00 BP 99/63 06/30/16 08:00 Pulse Ox 95 06/30/16 08:00 Intake & Output 06/29/16 06/30/16 06/30/16 18:59 06:59 18:59 Intake Total 250 Balance 250 Intake: Oral 250 Active Medications: Current Medications Acetaminophen (Tylenol) 325 mg PO Q6HR PRN PRN Reason: Mild Pain or Fever >101 Stop: 08/22/16 20:30 Acetaminophen/Hydrocodone Bitart ([place] 10 Mg/325 Mg) 1 tab PO Q8H PRN PRN Reason: Pain (Moderate) Stop: 08/22/16 20:30 Last Admin: 06/28/16 02:07 Dose: 1 tab Albuterol/Ipratropium (Duoneb Neb) 3 ml HHN Q2HR PRN PRN Reason: Shortness of Breath or Wheeze Cholecalciferol (Vitamin D3) 2,000 iu PO DAILY [facility] Stop: 08/23/16 08:59 Last Admin: 06/29/16 09:00 Dose: Not Given Diphenhydramine HCl (Benadryl 50 Mg/Ml) 50 mg IM Q8HR PRN PRN Reason: Agitation Stop: 08/25/16 12:10 Docusate Sodium (Colace) 100 mg PO BID [facility] Stop: 08/22/16 16:59 Last Admin: 06/29/16 08:08 Dose: Not Given Epoetin [place] (Epogen) 10,000 units SUBQ TuThSa [facility] Stop: 08/22/16 14:29 Last Admin: 06/28/16 15:00 Dose: Not Given Haloperidol Lactate (Haldol) 5 mg IM Q8HR PRN PRN Reason: Agitation Stop: 08/25/16 12:10 Lactated Ringer's (Lactated Ringer) 1,000 mls @ 0 mls/hr IV .Q0M [facility] PRN Reason: TKO Stop: 06/30/16 16:44 Lactulose (Cephulac) 30 gm PO TID [facility] Stop: 08/25/16 13:59 Last Admin: 06/29/16 22:17 Dose: 30 gm Levothyroxine Sodium (Synthroid) 0.05 mg PO QDAC [facility] Stop: 08/23/16 07:29 Last Admin: 06/30/16 06:46 Dose: 0.05 mg Lorazepam (Ativan) 1 mg IM Q4HR PRN; Protocol PRN Reason: Agitation Stop: 08/25/16 10:37 Last Admin: 06/26/16 14:01 Dose: 1 mg Meperidine HCl (Demerol) 25 mg IVP UD PRN PRN Reason: POST-OP PAIN Stop: 06/30/16 16:31 Morphine Sulfate (Morphine) 1 mg IV Q4H PRN PRN Reason: SEVERE PAIN Stop: 08/22/16 04:40 Last Admin: 06/28/16 17:12 Dose: 1 mg Ondansetron HCl (Zofran Odt) 4 mg PO Q6HR PRN PRN Reason: Nausea / Vomiting Stop: 08/22/16 20:30 Ondansetron HCl (Zofran) 4 mg IV PRN PRN PRN Reason: Nausea / Vomiting Stop: 06/30/16 16:31 Pantoprazole Sodium (Protonix) 40 mg PO DAILY [facility] Stop: 08/23/16 08:59 Last Admin: 06/29/16 08:08 Dose: Not Given Quetiapine Fumarate (Seroquel) 100 mg PO TID [facility] PRN Reason: Protocol Stop: 08/26/16 08:59 Last Admin: 06/29/16 22:18 Dose: 100 mg Rifaximin (Xifaxan) 600 mg PO BID [facility] Stop: 08/25/16 16:59 Last Admin: 06/29/16 08:09 Dose: Not Given Vitamin B Complex/Vit C/Folic Acid (Vitamin B Complex W/Vitamin C) 1 tab PO DAILY [facility] Stop: 08/23/16 08:59 Last Admin: 06/29/16 08:09 Dose: Not Given Assessment/Plan - Problem List Patient Problems: All Active Problems MEDICAL EVALUATION PER DR FRY (Acute)
[2016-06-30] MEDS: Lactulose 10 Gm/15 mL 30mL UDC PO SCH ×4 (09:49→22:43)
[2016-06-30] MEDS: Vitamin B Complex w/Vitamin C Tab PO SCH (09:49)
[2016-06-30] MEDS: Pantoprazole 40 mg EC Tab PO SCH (09:49)
--- NOTE | 2016-06-30 11:16 | General Progress Note ---
Subjective - Review of Systems Subjective: pt refusing evrything pulled out vascular access yesterday spoke to dr forrest yesterday renal notes noted Objective - Results Result Diagrams: 06/29/16 18:08 06/29/16 05:49 Recent Labs: Laboratory Last Values WBC 3.4 Th/cmm (4.8-10.8) L 06/29/16 18:08 RBC 2.46 Mil/cmm (4.30-5.70) L 06/29/16 18:08 Hgb 7.2 gm/dL (13.2-17.3) L* 06/29/16 18:08 Hct 21.6 % (39.0-49.0) L* 06/29/16 18:08 MCV 87.7 fl (80-99) 06/29/16 18:08 MCH 29.2 pg (26.0-30.0) 06/29/16 18:08 MCHC Differential 33.3 pg (28.0-36.0) 06/29/16 18:08 RDW 16.3 % (11.5-20.0) 06/29/16 18:08 Plt Count 109 Th/cmm (150-400) L 06/29/16 18:08 MPV 8.5 fl 06/29/16 18:08 Neutrophils % 55.0 % (40.0-80.0) 06/29/16 18:08 Band Neutrophils % 2 % (0-10) 06/25/16 08:30 Lymphocytes % 13.6 % (20.0-50.0) L 06/29/16 18:08 Monocytes % 13.1 % (2.0-10.0) H 06/29/16 18:08 Eosinophils % 18.1 % (0.0-5.0) H 06/29/16 18:08 Basophils % 0.2 % (0.0-2.0) 06/29/16 18:08 Neutrophils (Manual) 41 % (40-80) 06/29/16 05:49 Lymphocytes 16 % (20-50) L 06/29/16 05:49 Monocytes 18 % (2-10) H 06/29/16 05:49 Eosinophils 22 % (0-5) H 06/29/16 05:49 Basophils 3 % (0-3) 06/29/16 05:49 Hypochromia 1+ 06/22/16 19:33 Platelet Estimate DECREASED PLATELETS (NORMAL) 06/29/16 05:49 Platelet Morphology NORMAL (NORMAL) 06/29/16 05:49 Anisocytosis 1+ 06/29/16 05:49 RBC Morph Micro Appear ABNORMAL (NORMAL) 06/29/16 05:49 PT 12.3 SECONDS (9.5-11.5) H 06/28/16 04:38 INR 1.22 (0.5-1.4) 06/28/16 04:38 PTT (Actin FS) 28.3 SECONDS (26.0-38.0) 06/28/16 04:38 Specimen Source art 06/22/16 20:03 Sample Site Right Radial 06/22/16 20:03 pH 7.49 (7.35-7.45) H 06/22/16 20:03 pCO2 34.0 mmHg (35.0-45.0) L 06/22/16 20:03 pO2 97.0 mmHg (80.0-100.0) 06/22/16 20:03 HCO3 25.9 mmol/L (20.0-26.0) 06/22/16 20:03 Base Excess 2.8 mmol/L (-3.0-3.0) 06/22/16 20:03 O2 Saturation 98.0 % (92.0-100.0) 06/22/16 20:03 Estuardo Test P 06/22/16 20:03 Vent Rate NA 06/22/16 20:03 Inspired O2 21 06/22/16 20:03 Tidal Volume NA 06/22/16 20:03 PEEP NA 06/22/16 20:03 Pressure (ins/psv/peep) NA 06/22/16 20:03 Critical Value RPINEIRA 06/22/16 20:03 Sodium 135 mEq/L (136-145) L 06/29/16 05:49 Potassium 3.3 mEq/L (3.5-5.1) L 06/29/16 05:49 Chloride 101 mEq/L (98-107) 06/29/16 05:49 Carbon Dioxide 24.1 mEq/L (21.0-31.0) 06/29/16 05:49 Anion Gap 13.2 (7.0-16.0) 06/29/16 05:49 BUN 76 mg/dL (7-25) H 06/29/16 05:49 Creatinine 3.8 mg/dL (0.7-1.3) H 06/29/16 05:49 Est GFR ( Amer) 21.9 ml/min (>90) 06/29/16 05:49 Est GFR (Non-Af Amer) 18.1 ml/min 06/29/16 05:49 BUN/Creatinine Ratio 20.0 06/29/16 05:49 Glucose 102 mg/dL (70-105) 06/29/16 05:49 Calcium 9.4 mg/dL (8.6-10.3) 06/29/16 05:49 Phosphorus 5.1 mg/dL (2.5-5.0) H 06/23/16 11:25 Magnesium 2.1 mg/dL (1.9-2.7) 06/23/16 11:25 Iron 42 ug/dL (38-169) 06/28/16 04:38 TIBC 269 ug/dL (250-450) 06/28/16 04:38 Iron Saturation 16 % (15-55) 06/28/16 04:38 Unsaturated IBC 227 ug/dL (111-343) 06/28/16 04:38 Ferritin 150 ng/mL (30-400) 06/26/16 08:30 Total Bilirubin 1.4 mg/dL (0.3-1.0) H 06/29/16 05:49 Direct Bilirubin 0.70 mg/dL (0.0-0.2) H 06/28/16 04:38 GGTP 14 IU/L (0-65) 06/28/16 04:38 AST 23 U/L (13-39) 06/29/16 05:49 ALT 12 U/L (7-52) 06/29/16 05:49 Alkaline Phosphatase 27 U/L (34-104) L 06/29/16 05:49 Ammonia 173 umol/L (16-53) H 06/29/16 05:49 Troponin I < 0.01 ng/mL (0.01-0.05) L 06/22/16 19:33 B-Natriuretic Peptide 668.0 pg/mL (5.0-100.0) H 06/22/16 19:33 Total Protein 7.6 gm/dL (6.0-8.3) 06/29/16 05:49 Albumin 2.9 gm/dL (4.2-5.5) L 06/29/16 05:49 Globulin 4.7 gm/dL 06/29/16 05:49 Albumin/Globulin Ratio 0.6 (1.0-1.8) L 06/29/16 05:49 Urine Source CLEAN C 06/29/16 05:55 Urine Color YELLOW 06/29/16 05:55 Urine Clarity HAZY (CLEAR) 06/29/16 05:55 Urine pH 5.5 06/29/16 05:55 Ur Specific [place] 1.015 (1.005-1.030) 06/29/16 05:55 Urine Protein 30 mg/dL (NEGATIVE) H 06/29/16 05:55 Urine Glucose (UA) NEGATIVE mg/dL (NEGATIVE) 06/29/16 05:55 Urine Ketones NEGATIVE mg/dL (NEGATIVE) 06/29/16 05:55 Urine Blood NEGATIVE (NEGATIVE) 06/29/16 05:55 Urine Nitrate NEGATIVE (NEGATIVE) 06/29/16 05:55 Urine Bilirubin NEGATIVE (NEGATIVE) 06/29/16 05:55 Urine Urobilinogen 0.2 E.U./dL (0.2 - 1.0) 06/29/16 05:55 Ur Leukocyte Esterase TRACE (NEGATIVE) H 06/29/16 05:55 Urine RBC 0-2 /hpf (0-5) H 06/29/16 05:55 Urine WBC 6-10 /hpf (0-5) H 06/29/16 05:55 Ur Epithelial Cells FEW /lpf (FEW) 06/29/16 05:55 Urine Bacteria MANY /hpf (NONE SEEN) 06/29/16 05:55 Stool Occult Blood POSITIVE (NEGATIVE) 06/24/16 16:00 Random Vancomycin 13.4 ug/mL (5.0-40.0) 06/28/16 04:38 RPR NONREACTIVE (NONREACTIVE) 06/22/16 19:33 Blood Type A POSITIVE 06/28/16 04:38 Antibody Screen NEGATIVE 06/28/16 04:38 Crossmatch See Detail 06/28/16 04:38 - Physical Exam Vitals and I&O: Vital Signs Temp 98.5 F 06/30/16 08:00 Pulse 92 06/30/16 08:00 Resp 18 06/30/16 08:00 BP 99/63 06/30/16 08:00 Pulse Ox 95 06/30/16 08:00 Intake & Output 06/29/16 06/30/16 06/30/16 18:59 06:59 18:59 Intake Total 250 Balance 250 Intake: Oral 250 Active Medications: Current Medications Acetaminophen (Tylenol) 325 mg PO Q6HR PRN PRN Reason: Mild Pain or Fever >101 Stop: 08/22/16 20:30 Acetaminophen/Hydrocodone Bitart ([place] 10 Mg/325 Mg) 1 tab PO Q8H PRN PRN Reason: Pain (Moderate) Stop: 08/22/16 20:30 Last Admin: 06/28/16 02:07 Dose: 1 tab Albuterol/Ipratropium (Duoneb Neb) 3 ml HHN Q2HR PRN PRN Reason: Shortness of Breath or Wheeze Cholecalciferol (Vitamin D3) 2,000 iu PO DAILY [facility] Stop: 08/23/16 08:59 Last Admin: 06/30/16 09:49 Dose: Not Given Diphenhydramine HCl (Benadryl 50 Mg/Ml) 50 mg IM Q8HR PRN PRN Reason: Agitation Stop: 08/25/16 12:10 Docusate Sodium (Colace) 100 mg PO BID [facility] Stop: 08/22/16 16:59 Last Admin: 06/30/16 09:49 Dose: Not Given Epoetin Bernard[place] (Epogen) 10,000 units SUBQ TuThSa [facility] Stop: 08/22/16 14:29 Last Admin: 06/28/16 15:00 Dose: Not Given Haloperidol Lactate (Haldol) 5 mg IM Q8HR PRN PRN Reason: Agitation Stop: 08/25/16 12:10 Lactated Ringer's (Lactated Ringer) 1,000 mls @ 0 mls/hr IV .Q0M [facility] PRN Reason: TKO Stop: 06/30/16 16:44 Lactulose (Cephulac) 30 gm PO TID [facility] Stop: 08/25/16 13:59 Last Admin: 06/30/16 09:49 Dose: Not Given Levothyroxine Sodium (Synthroid) 0.05 mg PO QDAC [facility] Stop: 08/23/16 07:29 Last Admin: 02/11/17 06:46 Dose: 0.05 mg Lorazepam (Ativan) 1 mg IM Q4HR PRN; Protocol PRN Reason: Agitation Stop: 08/25/16 10:37 Last Admin: 06/26/16 14:01 Dose: 1 mg Meperidine HCl (Demerol) 25 mg IVP UD PRN PRN Reason: POST-OP PAIN Stop: 06/30/16 16:31 Morphine Sulfate (Morphine) 1 mg IV Q4H PRN PRN Reason: SEVERE PAIN Stop: 08/22/16 04:40 Last Admin: 06/28/16 17:12 Dose: 1 mg Ondansetron HCl (Zofran Odt) 4 mg PO Q6HR PRN PRN Reason: Nausea / Vomiting Stop: 08/22/16 20:30 Ondansetron HCl (Zofran) 4 mg IV PRN PRN PRN Reason: Nausea / Vomiting Stop: 06/30/16 16:31 Pantoprazole Sodium (Protonix) 40 mg PO DAILY [facility] Stop: 08/23/16 08:59 Last Admin: 06/30/16 09:49 Dose: Not Given Quetiapine Fumarate (Seroquel) 100 mg PO TID [facility] PRN Reason: Protocol Stop: 08/26/16 08:59 Last Admin: 06/30/16 09:49 Dose: Not Given Rifaximin (Xifaxan) 600 mg PO BID [facility] Stop: 08/25/16 16:59 Last Admin: 06/30/16 09:49 Dose: Not Given Vitamin B Complex/Vit C/Folic Acid (Vitamin B Complex W/Vitamin C) 1 tab PO DAILY [facility] Stop: 08/23/16 08:59 Last Admin: 06/30/16 09:49 Dose: Not Given Assessment/Plan - Problem List Patient Problems: All Active Problems MEDICAL EVALUATION PER DR FRY (Acute) - Assessment Assessment: 1. Cellulitis of legs. 2. Lymphedema of legs. 3. CKD 5 on HD. 4. Morbid obesity. 5 anemia 6 gi bleed 7 psychosis - Plan Plan: ivabx follow up labs id consult
[2016-06-30 12:10] LABS: HEP B CORE IGM Negative (Negative); HEP C ANTIBODY >11.0 s/co ratio (0.0-0.9)
--- NOTE | 2016-06-30 13:38 | Infectious Disease Prog Note ---
Infectious Disease Subjective - Review of Systems Service Date: 06/30/16 Subjective: No change. Permacath was placed in left subclian vein yesterday. Infectious Disease Objective - Results Result Diagrams: 06/29/16 18:08 06/29/16 05:49 Recent Labs: Laboratory Last Values WBC 3.4 Th/cmm (4.8-10.8) L 06/29/16 18:08 RBC 2.46 Mil/cmm (4.30-5.70) L 06/29/16 18:08 Hgb 7.2 gm/dL (13.2-17.3) L* 06/29/16 18:08 Hct 21.6 % (39.0-49.0) L* 06/29/16 18:08 MCV 87.7 fl (80-99) 06/29/16 18:08 MCH 29.2 pg (26.0-30.0) 06/29/16 18:08 MCHC Differential 33.3 pg (28.0-36.0) 06/29/16 18:08 RDW 16.3 % (11.5-20.0) 06/29/16 18:08 Plt Count 109 Th/cmm (150-400) L 06/29/16 18:08 MPV 8.5 fl 06/29/16 18:08 Neutrophils % 55.0 % (40.0-80.0) 06/29/16 18:08 Band Neutrophils % 2 % (0-10) 06/25/16 08:30 Lymphocytes % 13.6 % (20.0-50.0) L 06/29/16 18:08 Monocytes % 13.1 % (2.0-10.0) H 06/29/16 18:08 Eosinophils % 18.1 % (0.0-5.0) H 06/29/16 18:08 Basophils % 0.2 % (0.0-2.0) 06/29/16 18:08 Neutrophils (Manual) 41 % (40-80) 06/29/16 05:49 Lymphocytes 16 % (20-50) L 06/29/16 05:49 Monocytes 18 % (2-10) H 06/29/16 05:49 Eosinophils 22 % (0-5) H 06/29/16 05:49 Basophils 3 % (0-3) 06/29/16 05:49 Hypochromia 1+ 06/22/16 19:33 Platelet Estimate DECREASED PLATELETS (NORMAL) 06/29/16 05:49 Platelet Morphology NORMAL (NORMAL) 06/29/16 05:49 Anisocytosis 1+ 06/29/16 05:49 RBC Morph Micro Appear ABNORMAL (NORMAL) 06/29/16 05:49 PT 12.3 SECONDS (9.5-11.5) H 06/28/16 04:38 INR 1.22 (0.5-1.4) 06/28/16 04:38 PTT (Actin FS) 28.3 SECONDS (26.0-38.0) 06/28/16 04:38 Specimen Source art 06/22/16 20:03 Sample Site Right Radial 06/22/16 20:03 pH 7.49 (7.35-7.45) H 06/22/16 20:03 pCO2 34.0 mmHg (35.0-45.0) L 06/22/16 20:03 pO2 97.0 mmHg (80.0-100.0) 06/22/16 20:03 HCO3 25.9 mmol/L (20.0-26.0) 06/22/16 20:03 Base Excess 2.8 mmol/L (-3.0-3.0) 06/22/16 20:03 O2 Saturation 98.0 % (92.0-100.0) 06/22/16 20:03 Estuardo Test P 06/22/16 20:03 Vent Rate NA 06/22/16 20:03 Inspired O2 21 06/22/16 20:03 Tidal Volume NA 06/22/16 20:03 PEEP NA 06/22/16 20:03 Pressure (ins/psv/peep) NA 06/22/16 20:03 Critical Value RPINEIRA 06/22/16 20:03 Sodium 135 mEq/L (136-145) L 06/29/16 05:49 Potassium 3.3 mEq/L (3.5-5.1) L 06/29/16 05:49 Chloride 101 mEq/L (98-107) 06/29/16 05:49 Carbon Dioxide 24.1 mEq/L (21.0-31.0) 06/29/16 05:49 Anion Gap 13.2 (7.0-16.0) 06/29/16 05:49 BUN 76 mg/dL (7-25) H 06/29/16 05:49 Creatinine 3.8 mg/dL (0.7-1.3) H 06/29/16 05:49 Est GFR ( Amer) 21.9 ml/min (>90) 06/29/16 05:49 Est GFR (Non-Af Amer) 18.1 ml/min 06/29/16 05:49 BUN/Creatinine Ratio 20.0 06/29/16 05:49 Glucose 102 mg/dL (70-105) 06/29/16 05:49 Calcium 9.4 mg/dL (8.6-10.3) 06/29/16 05:49 Phosphorus 5.1 mg/dL (2.5-5.0) H 06/23/16 11:25 Magnesium 2.1 mg/dL (1.9-2.7) 06/23/16 11:25 Iron 42 ug/dL (38-169) 06/28/16 04:38 TIBC 269 ug/dL (250-450) 06/28/16 04:38 Iron Saturation 16 % (15-55) 06/28/16 04:38 Unsaturated IBC 227 ug/dL (111-343) 06/28/16 04:38 Ferritin 150 ng/mL (30-400) 06/26/16 08:30 Total Bilirubin 1.4 mg/dL (0.3-1.0) H 06/29/16 05:49 Direct Bilirubin 0.70 mg/dL (0.0-0.2) H 06/28/16 04:38 GGTP 14 IU/L (0-65) 06/28/16 04:38 AST 23 U/L (13-39) 06/29/16 05:49 ALT 12 U/L (7-52) 06/29/16 05:49 Alkaline Phosphatase 27 U/L (34-104) L 06/29/16 05:49 Ammonia 173 umol/L (16-53) H 06/29/16 05:49 Troponin I < 0.01 ng/mL (0.01-0.05) L 06/22/16 19:33 B-Natriuretic Peptide 668.0 pg/mL (5.0-100.0) H 06/22/16 19:33 Total Protein 7.6 gm/dL (6.0-8.3) 06/29/16 05:49 Albumin 2.9 gm/dL (4.2-5.5) L 06/29/16 05:49 Globulin 4.7 gm/dL 06/29/16 05:49 Albumin/Globulin Ratio 0.6 (1.0-1.8) L 06/29/16 05:49 Urine Source CLEAN C 06/29/16 05:55 Urine Color YELLOW 06/29/16 05:55 Urine Clarity HAZY (CLEAR) 06/29/16 05:55 Urine pH 5.5 06/29/16 05:55 Ur Specific [place] 1.015 (1.005-1.030) 06/29/16 05:55 Urine Protein 30 mg/dL (NEGATIVE) H 06/29/16 05:55 Urine Glucose (UA) NEGATIVE mg/dL (NEGATIVE) 06/29/16 05:55 Urine Ketones NEGATIVE mg/dL (NEGATIVE) 06/29/16 05:55 Urine Blood NEGATIVE (NEGATIVE) 06/29/16 05:55 Urine Nitrate NEGATIVE (NEGATIVE) 06/29/16 05:55 Urine Bilirubin NEGATIVE (NEGATIVE) 06/29/16 05:55 Urine Urobilinogen 0.2 E.U./dL (0.2 - 1.0) 06/29/16 05:55 Ur Leukocyte Esterase TRACE (NEGATIVE) H 06/29/16 05:55 Urine RBC 0-2 /hpf (0-5) H 06/29/16 05:55 Urine WBC 6-10 /hpf (0-5) H 06/29/16 05:55 Ur Epithelial Cells FEW /lpf (FEW) 06/29/16 05:55 Urine Bacteria MANY /hpf (NONE SEEN) 06/29/16 05:55 Stool Occult Blood POSITIVE (NEGATIVE) 06/24/16 16:00 Random Vancomycin 13.4 ug/mL (5.0-40.0) 06/28/16 04:38 RPR NONREACTIVE (NONREACTIVE) 06/22/16 19:33 Hepatitis A IgM Ab Negative (Negative) 06/29/16 05:49 Hep Bs Antigen Negative (Negative) 06/29/16 05:49 Hep B Core IgM Ab Negative (Negative) 06/29/16 05:49 Hepatitis C Antibody >11.0 s/co ratio (0.0-0.9) H 06/29/16 05:49 Blood Type A POSITIVE 06/28/16 04:38 Antibody Screen NEGATIVE 06/28/16 04:38 Crossmatch See Detail 06/28/16 04:38 - Physical Exam Vitals and I&O: Vital Signs Temp 97.3 F 06/30/16 12:36 Pulse 98 06/30/16 12:36 Resp 18 06/30/16 12:36 BP 91/48 06/30/16 12:36 Pulse Ox 96 06/30/16 12:36 Intake & Output 06/29/16 06/30/16 06/30/16 18:59 06:59 18:59 Intake Total 250 Balance 250 Intake: Oral 250 Active Medications: Current Medications Acetaminophen (Tylenol) 325 mg PO Q6HR PRN PRN Reason: Mild Pain or Fever >101 Stop: 08/22/16 20:30 Acetaminophen/Hydrocodone Bitart ([place] 10 Mg/325 Mg) 1 tab PO Q8H PRN PRN Reason: Pain (Moderate) Stop: 08/22/16 20:30 Last Admin: 06/28/16 02:07 Dose: 1 tab Albuterol/Ipratropium (Duoneb Neb) 3 ml HHN Q2HR PRN PRN Reason: Shortness of Breath or Wheeze Cholecalciferol (Vitamin D3) 2,000 iu PO DAILY [facility] Stop: 08/23/16 08:59 Last Admin: 06/30/16 09:49 Dose: Not Given Diphenhydramine HCl (Benadryl 50 Mg/Ml) 50 mg IM Q8HR PRN PRN Reason: Agitation Stop: 08/25/16 12:10 Docusate Sodium (Colace) 100 mg PO BID [facility] Stop: 08/22/16 16:59 Last Admin: 06/30/16 09:49 Dose: Not Given Epoetin [place] (Epogen) 10,000 units SUBQ TuThSa [facility] Stop: 08/22/16 14:29 Last Admin: 06/28/16 15:00 Dose: Not Given Haloperidol Lactate (Haldol) 5 mg IM Q8HR PRN PRN Reason: Agitation Stop: 08/25/16 12:10 Lactated Ringer's (Lactated Ringer) 1,000 mls @ 0 mls/hr IV .Q0M [facility] PRN Reason: TKO Stop: 06/30/16 16:44 Lactulose (Cephulac) 30 gm PO TID [facility] Stop: 08/25/16 13:59 Last Admin: 06/30/16 09:49 Dose: Not Given Levothyroxine Sodium (Synthroid) 0.05 mg PO QDAC [facility] Stop: 08/23/16 07:29 Last Admin: 06/30/16 06:46 Dose: 0.05 mg Lorazepam (Ativan) 1 mg IM Q4HR PRN; Protocol PRN Reason: Agitation Stop: 08/25/16 10:37 Last Admin: 06/26/16 14:01 Dose: 1 mg Meperidine HCl (Demerol) 25 mg IVP UD PRN PRN Reason: POST-OP PAIN Stop: 06/30/16 16:31 Morphine Sulfate (Morphine) 1 mg IV Q4H PRN PRN Reason: SEVERE PAIN Stop: 08/22/16 04:40 Last Admin: 06/28/16 17:12 Dose: 1 mg Ondansetron HCl (Zofran Odt) 4 mg PO Q6HR PRN PRN Reason: Nausea / Vomiting Stop: 08/22/16 20:30 Ondansetron HCl (Zofran) 4 mg IV PRN PRN PRN Reason: Nausea / Vomiting Stop: 06/30/16 16:31 Pantoprazole Sodium (Protonix) 40 mg PO DAILY [facility] Stop: 08/23/16 08:59 Last Admin: 06/30/16 09:49 Dose: Not Given Quetiapine Fumarate (Seroquel) 100 mg PO TID [place] PRN Reason: Protocol Stop: 08/26/16 08:59 Last Admin: 06/30/16 09:49 Dose: Not Given Rifaximin (Xifaxan) 600 mg PO BID [facility] Stop: 08/25/16 16:59 Last Admin: 06/30/16 09:49 Dose: Not Given Vitamin B Complex/Vit C/Folic Acid (Vitamin B Complex W/Vitamin C) 1 tab PO DAILY [facility] Stop: 08/23/16 08:59 Last Admin: 06/30/16 09:49 Dose: Not Given General: no acute distress, other (Obese) HEENT: atraumatic, normocephalic, PERRLA, EOMI, moist mucous membrane Neck: supple, no thyromegaly, no lymphadenopathy Cardiovascular: S1S2, regular Lungs: clear to auscultation bilaterally, clear to percussion Abdomen: soft, no tender, no distended Extremities: other (swelling of the legs.), no cyanosis, no clubbing Neurological: awake, alert, oriented Skin: intact Infectious Disease Assmt/Plan - Problem List Patient Problems: All Active Problems MEDICAL EVALUATION PER DR FRY (Acute) - Assessment Assessment: 1. Cellulitis of legs. improved. treated. 2. Lymphedema of legs. 3. CKD 5 on HD. 4. Morbid obesity. - Plan Plan: Continue the skin care.
[2016-06-30] MEDS: Morphine Sulfate 2 mg/mL 1mL Syr IV PRN ×2 (15:04→22:39)
--- NOTE | 2016-06-30 15:27 | General Progress Note ---
Subjective - Review of Systems Service Date: 06/30/16 Subjective: more cooperative, less agitated Objective - Results Result Diagrams: 06/29/16 18:08 06/29/16 05:49 Recent Labs: Laboratory Last Values WBC 3.4 Th/cmm (4.8-10.8) L 06/29/16 18:08 RBC 2.46 Mil/cmm (4.30-5.70) L 06/29/16 18:08 Hgb 7.2 gm/dL (13.2-17.3) L* 06/29/16 18:08 Hct 21.6 % (39.0-49.0) L* 06/29/16 18:08 MCV 87.7 fl (80-99) 06/29/16 18:08 MCH 29.2 pg (26.0-30.0) 06/29/16 18:08 MCHC Differential 33.3 pg (28.0-36.0) 06/29/16 18:08 RDW 16.3 % (11.5-20.0) 06/29/16 18:08 Plt Count 109 Th/cmm (150-400) L 06/29/16 18:08 MPV 8.5 fl 06/29/16 18:08 Neutrophils % 55.0 % (40.0-80.0) 06/29/16 18:08 Band Neutrophils % 2 % (0-10) 06/25/16 08:30 Lymphocytes % 13.6 % (20.0-50.0) L 06/29/16 18:08 Monocytes % 13.1 % (2.0-10.0) H 06/29/16 18:08 Eosinophils % 18.1 % (0.0-5.0) H 06/29/16 18:08 Basophils % 0.2 % (0.0-2.0) 06/29/16 18:08 Neutrophils (Manual) 41 % (40-80) 06/29/16 05:49 Lymphocytes 16 % (20-50) L 06/29/16 05:49 Monocytes 18 % (2-10) H 06/29/16 05:49 Eosinophils 22 % (0-5) H 06/29/16 05:49 Basophils 3 % (0-3) 06/29/16 05:49 Hypochromia 1+ 06/22/16 19:33 Platelet Estimate DECREASED PLATELETS (NORMAL) 06/29/16 05:49 Platelet Morphology NORMAL (NORMAL) 06/29/16 05:49 Anisocytosis 1+ 06/29/16 05:49 RBC Morph Micro Appear ABNORMAL (NORMAL) 06/29/16 05:49 PT 12.3 SECONDS (9.5-11.5) H 06/28/16 04:38 INR 1.22 (0.5-1.4) 06/28/16 04:38 PTT (Actin FS) 28.3 SECONDS (26.0-38.0) 06/28/16 04:38 Specimen Source art 06/22/16 20:03 Sample Site Right Radial 06/22/16 20:03 pH 7.49 (7.35-7.45) H 06/22/16 20:03 pCO2 34.0 mmHg (35.0-45.0) L 06/22/16 20:03 pO2 97.0 mmHg (80.0-100.0) 06/22/16 20:03 HCO3 25.9 mmol/L (20.0-26.0) 06/22/16 20:03 Base Excess 2.8 mmol/L (-3.0-3.0) 06/22/16 20:03 O2 Saturation 98.0 % (92.0-100.0) 06/22/16 20:03 Estuardo Test P 06/22/16 20:03 Vent Rate NA 06/22/16 20:03 Inspired O2 21 06/22/16 20:03 Tidal Volume NA 06/22/16 20:03 PEEP NA 06/22/16 20:03 Pressure (ins/psv/peep) NA 06/22/16 20:03 Critical Value RPINEIRA 06/22/16 20:03 Sodium 135 mEq/L (136-145) L 06/29/16 05:49 Potassium 3.3 mEq/L (3.5-5.1) L 06/29/16 05:49 Chloride 101 mEq/L (98-107) 06/29/16 05:49 Carbon Dioxide 24.1 mEq/L (21.0-31.0) 06/29/16 05:49 Anion Gap 13.2 (7.0-16.0) 06/29/16 05:49 BUN 76 mg/dL (7-25) H 06/29/16 05:49 Creatinine 3.8 mg/dL (0.7-1.3) H 06/29/16 05:49 Est GFR ( Amer) 21.9 ml/min (>90) 06/29/16 05:49 Est GFR (Non-Af Amer) 18.1 ml/min 06/29/16 05:49 BUN/Creatinine Ratio 20.0 06/29/16 05:49 Glucose 102 mg/dL (70-105) 06/29/16 05:49 Calcium 9.4 mg/dL (8.6-10.3) 06/29/16 05:49 Phosphorus 5.1 mg/dL (2.5-5.0) H 06/23/16 11:25 Magnesium 2.1 mg/dL (1.9-2.7) 06/23/16 11:25 Iron 42 ug/dL (38-169) 06/28/16 04:38 TIBC 269 ug/dL (250-450) 06/28/16 04:38 Iron Saturation 16 % (15-55) 06/28/16 04:38 Unsaturated IBC 227 ug/dL (111-343) 06/28/16 04:38 Ferritin 150 ng/mL (30-400) 06/26/16 08:30 Total Bilirubin 1.4 mg/dL (0.3-1.0) H 06/29/16 05:49 Direct Bilirubin 0.70 mg/dL (0.0-0.2) H 06/28/16 04:38 GGTP 14 IU/L (0-65) 06/28/16 04:38 AST 23 U/L (13-39) 06/29/16 05:49 ALT 12 U/L (7-52) 06/29/16 05:49 Alkaline Phosphatase 27 U/L (34-104) L 06/29/16 05:49 Ammonia 173 umol/L (16-53) H 06/29/16 05:49 Troponin I < 0.01 ng/mL (0.01-0.05) L 06/22/16 19:33 B-Natriuretic Peptide 668.0 pg/mL (5.0-100.0) H 06/22/16 19:33 Total Protein 7.6 gm/dL (6.0-8.3) 06/29/16 05:49 Albumin 2.9 gm/dL (4.2-5.5) L 06/29/16 05:49 Globulin 4.7 gm/dL 06/29/16 05:49 Albumin/Globulin Ratio 0.6 (1.0-1.8) L 06/29/16 05:49 Urine Source CLEAN C 06/29/16 05:55 Urine Color YELLOW 06/29/16 05:55 Urine Clarity HAZY (CLEAR) 06/29/16 05:55 Urine pH 5.5 06/29/16 05:55 Ur Specific [place] 1.015 (1.005-1.030) 06/29/16 05:55 Urine Protein 30 mg/dL (NEGATIVE) H 06/29/16 05:55 Urine Glucose (UA) NEGATIVE mg/dL (NEGATIVE) 06/29/16 05:55 Urine Ketones NEGATIVE mg/dL (NEGATIVE) 06/29/16 05:55 Urine Blood NEGATIVE (NEGATIVE) 06/29/16 05:55 Urine Nitrate NEGATIVE (NEGATIVE) 06/29/16 05:55 Urine Bilirubin NEGATIVE (NEGATIVE) 06/29/16 05:55 Urine Urobilinogen 0.2 E.U./dL (0.2 - 1.0) 06/29/16 05:55 Ur Leukocyte Esterase TRACE (NEGATIVE) H 06/29/16 05:55 Urine RBC 0-2 /hpf (0-5) H 06/29/16 05:55 Urine WBC 6-10 /hpf (0-5) H 06/29/16 05:55 Ur Epithelial Cells FEW /lpf (FEW) 06/29/16 05:55 Urine Bacteria MANY /hpf (NONE SEEN) 06/29/16 05:55 Stool Occult Blood POSITIVE (NEGATIVE) 06/24/16 16:00 Random Vancomycin 13.4 ug/mL (5.0-40.0) 06/28/16 04:38 RPR NONREACTIVE (NONREACTIVE) 06/22/16 19:33 Hepatitis A IgM Ab Negative (Negative) 06/29/16 05:49 Hep Bs Antigen Negative (Negative) 06/29/16 05:49 Hep B Core IgM Ab Negative (Negative) 06/29/16 05:49 Hepatitis C Antibody >11.0 s/co ratio (0.0-0.9) H 06/29/16 05:49 Blood Type A POSITIVE 06/28/16 04:38 Antibody Screen NEGATIVE 06/28/16 04:38 Crossmatch See Detail 06/28/16 04:38 - Physical Exam Vitals and I&O: Vital Signs Temp 97.3 F 06/30/16 12:36 Pulse 98 06/30/16 12:36 Resp 18 06/30/16 12:36 BP 91/48 06/30/16 12:36 Pulse Ox 96 06/30/16 12:36 Intake & Output 06/29/16 06/30/16 06/30/16 18:59 06:59 18:59 Intake Total 250 Balance 250 Intake: Oral 250 Active Medications: Current Medications Acetaminophen (Tylenol) 325 mg PO Q6HR PRN PRN Reason: Mild Pain or Fever >101 Stop: 08/22/16 20:30 Acetaminophen/Hydrocodone Bitart ([place] 10 Mg/325 Mg) 1 tab PO Q8H PRN PRN Reason: Pain (Moderate) Stop: 08/22/16 20:30 Last Admin: 06/28/16 02:07 Dose: 1 tab Albuterol/Ipratropium (Duoneb Neb) 3 ml HHN Q2HR PRN PRN Reason: Shortness of Breath or Wheeze Cholecalciferol (Vitamin D3) 2,000 iu PO DAILY [facility] Stop: 08/23/16 08:59 Last Admin: 06/30/16 09:49 Dose: Not Given Diphenhydramine HCl (Benadryl 50 Mg/Ml) 50 mg IM Q8HR PRN PRN Reason: Agitation Stop: 08/25/16 12:10 Docusate Sodium (Colace) 100 mg PO BID [facility] Stop: 08/22/16 16:59 Last Admin: 06/30/16 09:49 Dose: Not Given Epoetin [place] (Epogen) 10,000 units SUBQ TuThSa [facility] Stop: 08/22/16 14:29 Last Admin: 06/28/16 15:00 Dose: Not Given Haloperidol Lactate (Haldol) 5 mg IM Q8HR PRN PRN Reason: Agitation Stop: 08/25/16 12:10 Lactated Ringer's (Lactated Ringer) 1,000 mls @ 0 mls/hr IV .Q0M [facility] PRN Reason: TKO Stop: 06/30/16 16:44 Lactulose (Cephulac) 30 gm PO TID [facility] Stop: 08/25/16 13:59 Last Admin: 06/30/16 14:39 Dose: 30 gm Levothyroxine Sodium (Synthroid) 0.05 mg PO QDAC [facility] Stop: 08/23/16 07:29 Last Admin: 06/30/16 06:46 Dose: 0.05 mg Lorazepam (Ativan) 1 mg IM Q4HR PRN; Protocol PRN Reason: Agitation Stop: 08/25/16 10:37 Last Admin: 06/26/16 14:01 Dose: 1 mg Meperidine HCl (Demerol) 25 mg IVP UD PRN PRN Reason: POST-OP PAIN Stop: 06/30/16 16:31 Morphine Sulfate (Morphine) 1 mg IV Q4H PRN PRN Reason: SEVERE PAIN Stop: 08/22/16 04:40 Last Admin: 06/30/16 15:04 Dose: 1 mg Ondansetron HCl (Zofran Odt) 4 mg PO Q6HR PRN PRN Reason: Nausea / Vomiting Stop: 08/22/16 20:30 Ondansetron HCl (Zofran) 4 mg IV PRN PRN PRN Reason: Nausea / Vomiting Stop: 06/30/16 16:31 Pantoprazole Sodium (Protonix) 40 mg PO DAILY [facility] Stop: 08/23/16 08:59 Last Admin: 06/30/16 09:49 Dose: Not Given Quetiapine Fumarate (Seroquel) 100 mg PO TID [facility] PRN Reason: Protocol Stop: 08/26/16 08:59 Last Admin: 06/30/16 14:39 Dose: 100 mg Rifaximin (Xifaxan) 600 mg PO BID [facility] Stop: 08/25/16 16:59 Last Admin: 06/30/16 09:49 Dose: Not Given Vitamin B Complex/Vit C/Folic Acid (Vitamin B Complex W/Vitamin C) 1 tab PO DAILY [facility] Stop: 08/23/16 08:59 Last Admin: 06/30/16 09:49 Dose: Not Given General: Alert, No acute distress HEENT: Atraumatic, Mucous membr. moist/pink Neck: Supple, +2 carotid pulse wo bruit Cardiovascular: Regular rate, Normal S1, Normal S2 Lungs: Clear to auscultation Abdomen: Bowel sounds, Soft Extremities: Edema Neurological: Sensation intact Skin: no Rash Psych/Mental Status: Other (more cooperative) Assessment/Plan - Problem List Patient Problems: All Active Problems MEDICAL EVALUATION PER DR FRY (Acute) - Assessment Assessment: esrd on hd persistent cellulitis b/l lower ext acute on chronic anemia possible gi bleed ohs chronic a. fib hypothyroid anasarca functional quadriplegia chronic venous stasis dermatitis acute decomp psychosis - Plan Plan: pt. pulled out perma cath schedule for PICC line, then transfuse 2 units PRBC hgb/hct slightly improved to 7.2/21.6 transfused 2 units prbc currently being dialyzed
[2016-06-30] MEDS: Epoetin Alfa 20000 Units/mL Vial SUBQ SCH (16:19)
[2016-07-01 07:42] LABS: ALB/GLOB RATIO 0.6 (1.0-1.8); ANION GAP 10.6 (7.0-16.0); BUN/CREATININE RATIO 21.5; CALCIUM SERUM 9.5 mg/dL (8.6-10.3); CARBON DIOXIDE 24.6 mEq/L (21.0-31.0); CREATININE - SERUM 2.7 mg/dL (0.7-1.3); POTASSIUM SERUM 3.2 mEq/L (3.5-5.1)
[2016-07-01 07:44] LABS: % EOSINOPHILS 14.7 % (0.0-5.0); % MONOCYTES 11.7 % (2.0-10.0); % NEUTROPHILS 59.6 % (40.0-80.0); HEMOGLOBIN 8.9 gm/dL (13.2-17.3); MEAN CELL VOLUME 88.2 fl (80-99); MEAN CORPUSCULAR HEMOGLOBIN 29.8 pg (26.0-30.0); MEAN CORPUSCULAR HGB CONC 33.8 pg (28.0-36.0); MEAN PLATELET VOLUME 9.2 fl; NEUTROPHILE ABSOLUTE 2.4 Th/cmm (1.8-8.0); PLATELET COUNT 98 Th/cmm (150-400)
[2016-07-01 08:01] LABS: HEMATOCRIT 26.5 % (39.0-49.0); WHITE BLOOD COUNT 4.1 Th/cmm (4.8-10.8)
[2016-07-01 08:04] LABS: INR 1.26 (0.5-1.4); PROTHROMBIN TIME (TEST) 12.7 SECONDS (9.5-11.5)
--- NOTE | 2016-07-01 08:51 | General Progress Note ---
Subjective - Review of Systems Subjective: pt refusing evrything pulled out vascular access yesterday spoke to dr forrest yesterday renal notes noted Objective - Results Result Diagrams: 07/01/16 06:57 07/01/16 06:57 Recent Labs: Laboratory Last Values WBC 4.1 Th/cmm (4.8-10.8) L D 07/01/16 06:57 RBC 3.00 Mil/cmm (4.30-5.70) L 07/01/16 06:57 Hgb 8.9 gm/dL (13.2-17.3) L 07/01/16 06:57 Hct 26.5 % (39.0-49.0) L D 07/01/16 06:57 MCV 88.2 fl (80-99) 07/01/16 06:57 MCH 29.8 pg (26.0-30.0) 07/01/16 06:57 MCHC Differential 33.8 pg (28.0-36.0) 07/01/16 06:57 RDW 16.0 % (11.5-20.0) 07/01/16 06:57 Plt Count 98 Th/cmm (150-400) L 07/01/16 06:57 MPV 9.2 fl 07/01/16 06:57 Neutrophils % 59.6 % (40.0-80.0) 07/01/16 06:57 Band Neutrophils % 2 % (0-10) 06/25/16 08:30 Lymphocytes % 14.0 % (20.0-50.0) L 07/01/16 06:57 Monocytes % 11.7 % (2.0-10.0) H 07/01/16 06:57 Eosinophils % 14.7 % (0.0-5.0) H 07/01/16 06:57 Basophils % 0.0 % (0.0-2.0) 07/01/16 06:57 Neutrophils (Manual) 41 % (40-80) 06/29/16 05:49 Lymphocytes 16 % (20-50) L 06/29/16 05:49 Monocytes 18 % (2-10) H 06/29/16 05:49 Eosinophils 22 % (0-5) H 06/29/16 05:49 Basophils 3 % (0-3) 06/29/16 05:49 Hypochromia 1+ 06/22/16 19:33 Platelet Estimate DECREASED PLATELETS (NORMAL) 06/29/16 05:49 Platelet Morphology NORMAL (NORMAL) 06/29/16 05:49 Anisocytosis 1+ 06/29/16 05:49 RBC Morph Micro Appear ABNORMAL (NORMAL) 06/29/16 05:49 PT 12.7 SECONDS (9.5-11.5) H 07/01/16 06:57 INR 1.26 (0.5-1.4) 07/01/16 06:57 PTT (Actin FS) 28.3 SECONDS (26.0-38.0) 06/28/16 04:38 Specimen Source art 06/22/16 20:03 Sample Site Right Radial 06/22/16 20:03 pH 7.49 (7.35-7.45) H 06/22/16 20:03 pCO2 34.0 mmHg (35.0-45.0) L 06/22/16 20:03 pO2 97.0 mmHg (80.0-100.0) 06/22/16 20:03 HCO3 25.9 mmol/L (20.0-26.0) 06/22/16 20:03 Base Excess 2.8 mmol/L (-3.0-3.0) 06/22/16 20:03 O2 Saturation 98.0 % (92.0-100.0) 06/22/16 20:03 Estuardo Test P 06/22/16 20:03 Vent Rate NA 06/22/16 20:03 Inspired O2 21 06/22/16 20:03 Tidal Volume NA 06/22/16 20:03 PEEP NA 06/22/16 20:03 Pressure (ins/psv/peep) NA 06/22/16 20:03 Critical Value RPINEIRA 06/22/16 20:03 Sodium 135 mEq/L (136-145) L 07/01/16 06:57 Potassium 3.2 mEq/L (3.5-5.1) L 07/01/16 06:57 Chloride 103 mEq/L (98-107) 07/01/16 06:57 Carbon Dioxide 24.6 mEq/L (21.0-31.0) 07/01/16 06:57 Anion Gap 10.6 (7.0-16.0) 07/01/16 06:57 BUN 58 mg/dL (7-25) H 07/01/16 06:57 Creatinine 2.7 mg/dL (0.7-1.3) H 07/01/16 06:57 Est GFR ( Amer) 32.5 ml/min (>90) 07/01/16 06:57 Est GFR (Non-Af Amer) 26.8 ml/min 07/01/16 06:57 BUN/Creatinine Ratio 21.5 07/01/16 06:57 Glucose 110 mg/dL (70-105) H 07/01/16 06:57 Calcium 9.5 mg/dL (8.6-10.3) 07/01/16 06:57 Phosphorus 5.1 mg/dL (2.5-5.0) H 06/23/16 11:25 Magnesium 2.1 mg/dL (1.9-2.7) 06/23/16 11:25 Iron 42 ug/dL (38-169) 06/28/16 04:38 TIBC 269 ug/dL (250-450) 06/28/16 04:38 Iron Saturation 16 % (15-55) 06/28/16 04:38 Unsaturated IBC 227 ug/dL (111-343) 06/28/16 04:38 Ferritin 150 ng/mL (30-400) 06/26/16 08:30 Total Bilirubin 4.0 mg/dL (0.3-1.0) H 07/01/16 06:57 Direct Bilirubin 0.70 mg/dL (0.0-0.2) H 06/28/16 04:38 GGTP 14 IU/L (0-65) 06/28/16 04:38 AST 64 U/L (13-39) H 07/01/16 06:57 ALT 16 U/L (7-52) 07/01/16 06:57 Alkaline Phosphatase 94 U/L (34-104) 07/01/16 06:57 Ammonia 173 umol/L (16-53) H 06/29/16 05:49 Troponin I < 0.01 ng/mL (0.01-0.05) L 06/22/16 19:33 B-Natriuretic Peptide 668.0 pg/mL (5.0-100.0) H 06/22/16 19:33 Total Protein 7.5 gm/dL (6.0-8.3) 07/01/16 06:57 Albumin 2.8 gm/dL (4.2-5.5) L 07/01/16 06:57 Globulin 4.7 gm/dL 07/01/16 06:57 Albumin/Globulin Ratio 0.6 (1.0-1.8) L 07/01/16 06:57 Urine Source CLEAN C 06/29/16 05:55 Urine Color YELLOW 06/29/16 05:55 Urine Clarity HAZY (CLEAR) 06/29/16 05:55 Urine pH 5.5 06/29/16 05:55 Ur Specific [place] 1.015 (1.005-1.030) 06/29/16 05:55 Urine Protein 30 mg/dL (NEGATIVE) H 06/29/16 05:55 Urine Glucose (UA) NEGATIVE mg/dL (NEGATIVE) 06/29/16 05:55 Urine Ketones NEGATIVE mg/dL (NEGATIVE) 06/29/16 05:55 Urine Blood NEGATIVE (NEGATIVE) 06/29/16 05:55 Urine Nitrate NEGATIVE (NEGATIVE) 06/29/16 05:55 Urine Bilirubin NEGATIVE (NEGATIVE) 06/29/16 05:55 Urine Urobilinogen 0.2 E.U./dL (0.2 - 1.0) 06/29/16 05:55 Ur Leukocyte Esterase TRACE (NEGATIVE) H 06/29/16 05:55 Urine RBC 0-2 /hpf (0-5) H 06/29/16 05:55 Urine WBC 6-10 /hpf (0-5) H 06/29/16 05:55 Ur Epithelial Cells FEW /lpf (FEW) 06/29/16 05:55 Urine Bacteria MANY /hpf (NONE SEEN) 06/29/16 05:55 Stool Occult Blood POSITIVE (NEGATIVE) 06/24/16 16:00 Random Vancomycin 13.4 ug/mL (5.0-40.0) 06/28/16 04:38 RPR NONREACTIVE (NONREACTIVE) 06/22/16 19:33 Hepatitis A IgM Ab Negative (Negative) 06/29/16 05:49 Hep Bs Antigen Negative (Negative) 06/29/16 05:49 Hep B Core IgM Ab Negative (Negative) 06/29/16 05:49 Hepatitis C Antibody >11.0 s/co ratio (0.0-0.9) H 06/29/16 05:49 Blood Type A POSITIVE 06/28/16 04:38 Antibody Screen NEGATIVE 06/28/16 04:38 Crossmatch See Detail 06/28/16 04:38 - Physical Exam Vitals and I&O: Vital Signs Temp 98.2 F 07/01/16 08:00 Pulse 103 07/01/16 08:00 Resp 20 07/01/16 08:00 BP 116/70 07/01/16 08:00 Pulse Ox 98 07/01/16 08:00 Intake & Output 06/30/16 07/01/16 07/01/16 18:59 06:59 18:59 Intake Total 600 500 Output Total 3000 Balance -2400 500 Intake: Oral 500 Blood Product 600 Output: Hemodialysis 3000 Active Medications: Current Medications Acetaminophen (Tylenol) 325 mg PO Q6HR PRN PRN Reason: Mild Pain or Fever >101 Stop: 08/22/16 20:30 Albuterol/Ipratropium (Duoneb Neb) 3 ml HHN Q2HR PRN PRN Reason: Shortness of Breath or Wheeze Cholecalciferol (Vitamin D3) 2,000 iu PO DAILY [facility] Stop: 08/23/16 08:59 Last Admin: 06/30/16 09:49 Dose: Not Given Diphenhydramine HCl (Benadryl 50 Mg/Ml) 50 mg IM Q8HR PRN PRN Reason: Agitation Stop: 08/25/16 12:10 Docusate Sodium (Colace) 100 mg PO BID [facility] Stop: 08/22/16 16:59 Last Admin: 06/30/16 17:17 Dose: 100 mg Haloperidol Lactate (Haldol) 5 mg IM Q8HR PRN PRN Reason: Agitation Stop: 08/25/16 12:10 Lactulose (Cephulac) 30 gm PO TID [facility] Stop: 08/25/16 13:59 Last Admin: 06/30/16 22:43 Dose: Not Given Levothyroxine Sodium (Synthroid) 0.05 mg PO QDAC [facility] Stop: 08/23/16 07:29 Last Admin: 06/30/16 06:46 Dose: 0.05 mg Lorazepam (Ativan) 1 mg IM Q4HR PRN; Protocol PRN Reason: Agitation Stop: 08/25/16 10:37 Last Admin: 06/26/16 14:01 Dose: 1 mg Morphine Sulfate (Morphine) 1 mg IV Q4H PRN PRN Reason: SEVERE PAIN Stop: 08/22/16 04:40 Last Admin: 06/30/16 22:39 Dose: 1 mg Ondansetron HCl (Zofran Odt) 4 mg PO Q6HR PRN PRN Reason: Nausea / Vomiting Stop: 08/22/16 20:30 Pantoprazole Sodium (Protonix) 40 mg PO DAILY [facility] Stop: 08/23/16 08:59 Last Admin: 06/30/16 09:49 Dose: Not Given Quetiapine Fumarate (Seroquel) 100 mg PO TID [facility] PRN Reason: Protocol Stop: 08/26/16 08:59 Last Admin: 06/30/16 21:39 Dose: 100 mg Rifaximin (Xifaxan) 600 mg PO BID [facility] Stop: 08/25/16 16:59 Last Admin: 06/30/16 17:17 Dose: 600 mg Vitamin B Complex/Vit C/Folic Acid (Vitamin B Complex W/Vitamin C) 1 tab PO DAILY [facility] Stop: 08/23/16 08:59 Last Admin: 06/30/16 09:49 Dose: Not Given Assessment/Plan - Problem List Patient Problems: All Active Problems MEDICAL EVALUATION PER DR RFY (Acute) - Assessment Assessment: 1. Cellulitis of legs. 2. Lymphedema of legs. 3. CKD 5 on HD. 4. Morbid obesity. 5 anemia 6 gi bleed 7 psychosis - Plan Plan: ivabx follow up labs id consult
[2016-07-01] MEDS: Lactulose 10 Gm/15 mL 30mL UDC PO SCH ×3 (08:53→21:00)
[2016-07-01] MEDS: Morphine Sulfate 2 mg/mL 1mL Syr IV PRN (08:53)
[2016-07-01] MEDS: Pantoprazole 40 mg EC Tab PO SCH (08:54)
[2016-07-01] MEDS: Levothyroxine 0.05 Mg Tab PO SCH (08:55)
[2016-07-01] MEDS: Vitamin B Complex w/Vitamin C Tab PO SCH (08:56)
--- NOTE | 2016-07-01 09:33 | Progress Notes ---
Covering for Dr. Mirza. Case was discussed with staff of the patient, reviewed records. He is on dialysis. He was somewhat lethargic. His behavior has improved. He is not hitting as much. He is responding well to redirection. He is compliant with the medication with no side effects. He is on Seroquel 300 mg 3 times a day. Thank you very much for allowing me to participate in the care of this most interesting gentleman. JOB# [id number]
[2016-07-01] MEDS ORDERED: Potassium Chloride Elixir 20 mEq /15 mL UDC GT ONE (16:32)
--- NOTE | 2016-07-01 16:36 | General Progress Note ---
Subjective - Review of Systems Service Date: 07/01/16 Subjective: more cooperative, less agitated, wants to be transferred to another facility Objective - Results Result Diagrams: 07/01/16 06:57 07/01/16 06:57 Recent Labs: Laboratory Last Values WBC 4.1 Th/cmm (4.8-10.8) L D 07/01/16 06:57 RBC 3.00 Mil/cmm (4.30-5.70) L 07/01/16 06:57 Hgb 8.9 gm/dL (13.2-17.3) L 07/01/16 06:57 Hct 26.5 % (39.0-49.0) L D 07/01/16 06:57 MCV 88.2 fl (80-99) 07/01/16 06:57 MCH 29.8 pg (26.0-30.0) 07/01/16 06:57 MCHC Differential 33.8 pg (28.0-36.0) 07/01/16 06:57 RDW 16.0 % (11.5-20.0) 07/01/16 06:57 Plt Count 98 Th/cmm (150-400) L 07/01/16 06:57 MPV 9.2 fl 07/01/16 06:57 Neutrophils % 59.6 % (40.0-80.0) 07/01/16 06:57 Band Neutrophils % 2 % (0-10) 06/25/16 08:30 Lymphocytes % 14.0 % (20.0-50.0) L 07/01/16 06:57 Monocytes % 11.7 % (2.0-10.0) H 07/01/16 06:57 Eosinophils % 14.7 % (0.0-5.0) H 07/01/16 06:57 Basophils % 0.0 % (0.0-2.0) 07/01/16 06:57 Neutrophils (Manual) 41 % (40-80) 06/29/16 05:49 Lymphocytes 16 % (20-50) L 06/29/16 05:49 Monocytes 18 % (2-10) H 06/29/16 05:49 Eosinophils 22 % (0-5) H 06/29/16 05:49 Basophils 3 % (0-3) 06/29/16 05:49 Hypochromia 1+ 06/22/16 19:33 Platelet Estimate DECREASED PLATELETS (NORMAL) 06/29/16 05:49 Platelet Morphology NORMAL (NORMAL) 06/29/16 05:49 Anisocytosis 1+ 06/29/16 05:49 RBC Morph Micro Appear ABNORMAL (NORMAL) 06/29/16 05:49 PT 12.7 SECONDS (9.5-11.5) H 07/01/16 06:57 INR 1.26 (0.5-1.4) 07/01/16 06:57 PTT (Actin FS) 28.3 SECONDS (26.0-38.0) 06/28/16 04:38 Specimen Source art 06/22/16 20:03 Sample Site Right Radial 06/22/16 20:03 pH 7.49 (7.35-7.45) H 06/22/16 20:03 pCO2 34.0 mmHg (35.0-45.0) L 06/22/16 20:03 pO2 97.0 mmHg (80.0-100.0) 06/22/16 20:03 HCO3 25.9 mmol/L (20.0-26.0) 06/22/16 20:03 Base Excess 2.8 mmol/L (-3.0-3.0) 06/22/16 20:03 O2 Saturation 98.0 % (92.0-100.0) 06/22/16 20:03 Estuardo Test P 06/22/16 20:03 Vent Rate NA 06/22/16 20:03 Inspired O2 21 06/22/16 20:03 Tidal Volume NA 06/22/16 20:03 PEEP NA 06/22/16 20:03 Pressure (ins/psv/peep) NA 06/22/16 20:03 Critical Value RPINEIRA 06/22/16 20:03 Sodium 135 mEq/L (136-145) L 07/01/16 06:57 Potassium 3.2 mEq/L (3.5-5.1) L 07/01/16 06:57 Chloride 103 mEq/L (98-107) 07/01/16 06:57 Carbon Dioxide 24.6 mEq/L (21.0-31.0) 07/01/16 06:57 Anion Gap 10.6 (7.0-16.0) 07/01/16 06:57 BUN 58 mg/dL (7-25) H 07/01/16 06:57 Creatinine 2.7 mg/dL (0.7-1.3) H 07/01/16 06:57 Est GFR ( Amer) 32.5 ml/min (>90) 07/01/16 06:57 Est GFR (Non-Af Amer) 26.8 ml/min 07/01/16 06:57 BUN/Creatinine Ratio 21.5 07/01/16 06:57 Glucose 110 mg/dL (70-105) H 07/01/16 06:57 Calcium 9.5 mg/dL (8.6-10.3) 07/01/16 06:57 Phosphorus 5.1 mg/dL (2.5-5.0) H 06/23/16 11:25 Magnesium 2.1 mg/dL (1.9-2.7) 06/23/16 11:25 Iron 42 ug/dL (38-169) 06/28/16 04:38 TIBC 269 ug/dL (250-450) 06/28/16 04:38 Iron Saturation 16 % (15-55) 06/28/16 04:38 Unsaturated IBC 227 ug/dL (111-343) 06/28/16 04:38 Ferritin 150 ng/mL (30-400) 06/26/16 08:30 Total Bilirubin 4.0 mg/dL (0.3-1.0) H 07/01/16 06:57 Direct Bilirubin 0.70 mg/dL (0.0-0.2) H 06/28/16 04:38 GGTP 14 IU/L (0-65) 06/28/16 04:38 AST 64 U/L (13-39) H 07/01/16 06:57 ALT 16 U/L (7-52) 07/01/16 06:57 Alkaline Phosphatase 94 U/L (34-104) 07/01/16 06:57 Ammonia 173 umol/L (16-53) H 06/29/16 05:49 Troponin I < 0.01 ng/mL (0.01-0.05) L 06/22/16 19:33 B-Natriuretic Peptide 668.0 pg/mL (5.0-100.0) H 06/22/16 19:33 Total Protein 7.5 gm/dL (6.0-8.3) 07/01/16 06:57 Albumin 2.8 gm/dL (4.2-5.5) L 07/01/16 06:57 Globulin 4.7 gm/dL 07/01/16 06:57 Albumin/Globulin Ratio 0.6 (1.0-1.8) L 07/01/16 06:57 Urine Source CLEAN C 06/29/16 05:55 Urine Color YELLOW 06/29/16 05:55 Urine Clarity HAZY (CLEAR) 06/29/16 05:55 Urine pH 5.5 06/29/16 05:55 Ur Specific [place] 1.015 (1.005-1.030) 06/29/16 05:55 Urine Protein 30 mg/dL (NEGATIVE) H 06/29/16 05:55 Urine Glucose (UA) NEGATIVE mg/dL (NEGATIVE) 06/29/16 05:55 Urine Ketones NEGATIVE mg/dL (NEGATIVE) 06/29/16 05:55 Urine Blood NEGATIVE (NEGATIVE) 06/29/16 05:55 Urine Nitrate NEGATIVE (NEGATIVE) 06/29/16 05:55 Urine Bilirubin NEGATIVE (NEGATIVE) 06/29/16 05:55 Urine Urobilinogen 0.2 E.U./dL (0.2 - 1.0) 06/29/16 05:55 Ur Leukocyte Esterase TRACE (NEGATIVE) H 06/29/16 05:55 Urine RBC 0-2 /hpf (0-5) H 06/29/16 05:55 Urine WBC 6-10 /hpf (0-5) H 06/29/16 05:55 Ur Epithelial Cells FEW /lpf (FEW) 06/29/16 05:55 Urine Bacteria MANY /hpf (NONE SEEN) 06/29/16 05:55 Stool Occult Blood POSITIVE (NEGATIVE) 06/24/16 16:00 Random Vancomycin 13.4 ug/mL (5.0-40.0) 06/28/16 04:38 RPR NONREACTIVE (NONREACTIVE) 06/22/16 19:33 Hepatitis A IgM Ab Negative (Negative) 06/29/16 05:49 Hep Bs Antigen Negative (Negative) 06/29/16 05:49 Hep B Core IgM Ab Negative (Negative) 06/29/16 05:49 Hepatitis C Antibody >11.0 s/co ratio (0.0-0.9) H 06/29/16 05:49 Blood Type A POSITIVE 06/28/16 04:38 Antibody Screen NEGATIVE 06/28/16 04:38 Crossmatch See Detail 06/28/16 04:38 - Physical Exam Vitals and I&O: Vital Signs Temp 98.2 F 07/01/16 08:00 Pulse 103 07/01/16 08:00 Resp 20 07/01/16 08:00 BP 116/70 07/01/16 08:00 Pulse Ox 98 07/01/16 08:00 Intake & Output 06/30/16 07/01/16 07/01/16 18:59 06:59 18:59 Intake Total 600 500 Output Total 3000 Balance -2400 500 Intake: Oral 500 Blood Product 600 Output: Hemodialysis 3000 Active Medications: Current Medications Acetaminophen (Tylenol) 325 mg PO Q6HR PRN PRN Reason: Mild Pain or Fever >101 Stop: 08/22/16 20:30 Albuterol/Ipratropium (Duoneb Neb) 3 ml HHN Q2HR PRN PRN Reason: Shortness of Breath or Wheeze Cholecalciferol (Vitamin D3) 2,000 iu PO DAILY [facility] Stop: 08/23/16 08:59 Last Admin: 07/01/16 08:54 Dose: 2,000 iu Diphenhydramine HCl (Benadryl 50 Mg/Ml) 50 mg IM Q8HR PRN PRN Reason: Agitation Stop: 08/25/16 12:10 Docusate Sodium (Colace) 100 mg PO BID [facility] Stop: 08/22/16 16:59 Last Admin: 07/01/16 10:58 Dose: Not Given Haloperidol Lactate (Haldol) 5 mg IM Q8HR PRN PRN Reason: Agitation Stop: 08/25/16 12:10 Lactulose (Cephulac) 30 gm PO TID [facility] Stop: 08/25/16 13:59 Last Admin: 07/01/16 08:53 Dose: 30 gm Levothyroxine Sodium (Synthroid) 0.05 mg PO QDAC [facility] Stop: 08/23/16 07:29 Last Admin: 07/01/16 08:55 Dose: 0.05 mg Lorazepam (Ativan) 1 mg IM Q4HR PRN; Protocol PRN Reason: Agitation Stop: 08/25/16 10:37 Last Admin: 06/26/16 14:01 Dose: 1 mg Morphine Sulfate (Morphine) 1 mg IV Q4H PRN PRN Reason: SEVERE PAIN Stop: 08/22/16 04:40 Last Admin: 07/01/16 08:53 Dose: 1 mg Ondansetron HCl (Zofran Odt) 4 mg PO Q6HR PRN PRN Reason: Nausea / Vomiting Stop: 08/22/16 20:30 Pantoprazole Sodium (Protonix) 40 mg PO DAILY [facility] Stop: 08/23/16 08:59 Last Admin: 07/01/16 08:54 Dose: 40 mg Quetiapine Fumarate (Seroquel) 100 mg PO TID [facility] PRN Reason: Protocol Stop: 08/26/16 08:59 Last Admin: 07/01/16 08:54 Dose: 100 mg Rifaximin (Xifaxan) 600 mg PO BID [facility] Stop: 08/25/16 16:59 Last Admin: 07/01/16 08:54 Dose: 600 mg Vitamin B Complex/Vit C/Folic Acid (Vitamin B Complex W/Vitamin C) 1 tab PO DAILY [facility] Stop: 08/23/16 08:59 Last Admin: 07/01/16 08:56 Dose: Not Given General: Alert, No acute distress HEENT: Atraumatic, Mucous membr. moist/pink Neck: Supple, +2 carotid pulse wo bruit Cardiovascular: Regular rate, Normal S1, Normal S2 Lungs: Clear to auscultation Abdomen: Bowel sounds, Soft Extremities: Edema Neurological: Sensation intact Skin: no Rash Psych/Mental Status: Other (periods of agitation) Assessment/Plan - Problem List Patient Problems: All Active Problems MEDICAL EVALUATION PER DR FRY (Acute) - Assessment Assessment: esrd on hd persistent cellulitis b/l lower ext acute on chronic anemia possible gi bleed ohs chronic a. fib hypothyroid anasarca functional quadriplegia chronic venous stasis dermatitis acute decomp psychosis hypokalemia - Plan Plan: pt. pulled out perma cath schedule for PICC line, then transfuse 2 units PRBC hgb/hct slightly improved to 8.9/26.5 transfused 2 units prbc schedule for hd in am replace K
--- NOTE | 2016-07-01 20:48 | General Progress Note ---
Subjective - Review of Systems Service Date: 07/01/16 Subjective: EVENTS NOTED. MORE ALERT. SOME VAGUE ABD PAIN. Objective - Results Result Diagrams: 07/01/16 06:57 07/01/16 06:57 Recent Labs: Laboratory Last Values WBC 4.1 Th/cmm (4.8-10.8) L D 07/01/16 06:57 RBC 3.00 Mil/cmm (4.30-5.70) L 07/01/16 06:57 Hgb 8.9 gm/dL (13.2-17.3) L 07/01/16 06:57 Hct 26.5 % (39.0-49.0) L D 07/01/16 06:57 MCV 88.2 fl (80-99) 07/01/16 06:57 MCH 29.8 pg (26.0-30.0) 07/01/16 06:57 MCHC Differential 33.8 pg (28.0-36.0) 07/01/16 06:57 RDW 16.0 % (11.5-20.0) 07/01/16 06:57 Plt Count 98 Th/cmm (150-400) L 07/01/16 06:57 MPV 9.2 fl 07/01/16 06:57 Neutrophils % 59.6 % (40.0-80.0) 07/01/16 06:57 Band Neutrophils % 2 % (0-10) 06/25/16 08:30 Lymphocytes % 14.0 % (20.0-50.0) L 07/01/16 06:57 Monocytes % 11.7 % (2.0-10.0) H 07/01/16 06:57 Eosinophils % 14.7 % (0.0-5.0) H 07/01/16 06:57 Basophils % 0.0 % (0.0-2.0) 07/01/16 06:57 Neutrophils (Manual) 41 % (40-80) 06/29/16 05:49 Lymphocytes 16 % (20-50) L 06/29/16 05:49 Monocytes 18 % (2-10) H 06/29/16 05:49 Eosinophils 22 % (0-5) H 06/29/16 05:49 Basophils 3 % (0-3) 06/29/16 05:49 Hypochromia 1+ 06/22/16 19:33 Platelet Estimate DECREASED PLATELETS (NORMAL) 06/29/16 05:49 Platelet Morphology NORMAL (NORMAL) 06/29/16 05:49 Anisocytosis 1+ 06/29/16 05:49 RBC Morph Micro Appear ABNORMAL (NORMAL) 06/29/16 05:49 PT 12.7 SECONDS (9.5-11.5) H 07/01/16 06:57 INR 1.26 (0.5-1.4) 07/01/16 06:57 PTT (Actin FS) 28.3 SECONDS (26.0-38.0) 06/28/16 04:38 Specimen Source art 06/22/16 20:03 Sample Site Right Radial 06/22/16 20:03 pH 7.49 (7.35-7.45) H 06/22/16 20:03 pCO2 34.0 mmHg (35.0-45.0) L 06/22/16 20:03 pO2 97.0 mmHg (80.0-100.0) 06/22/16 20:03 HCO3 25.9 mmol/L (20.0-26.0) 06/22/16 20:03 Base Excess 2.8 mmol/L (-3.0-3.0) 06/22/16 20:03 O2 Saturation 98.0 % (92.0-100.0) 06/22/16 20:03 Estuardo Test P 06/22/16 20:03 Vent Rate NA 06/22/16 20:03 Inspired O2 21 06/22/16 20:03 Tidal Volume NA 06/22/16 20:03 PEEP NA 06/22/16 20:03 Pressure (ins/psv/peep) NA 06/22/16 20:03 Critical Value RPINEIRA 06/22/16 20:03 Sodium 135 mEq/L (136-145) L 07/01/16 06:57 Potassium 3.2 mEq/L (3.5-5.1) L 07/01/16 06:57 Chloride 103 mEq/L (98-107) 07/01/16 06:57 Carbon Dioxide 24.6 mEq/L (21.0-31.0) 07/01/16 06:57 Anion Gap 10.6 (7.0-16.0) 07/01/16 06:57 BUN 58 mg/dL (7-25) H 07/01/16 06:57 Creatinine 2.7 mg/dL (0.7-1.3) H 07/01/16 06:57 Est GFR ( Amer) 32.5 ml/min (>90) 07/01/16 06:57 Est GFR (Non-Af Amer) 26.8 ml/min 07/01/16 06:57 BUN/Creatinine Ratio 21.5 07/01/16 06:57 Glucose 110 mg/dL (70-105) H 07/01/16 06:57 Calcium 9.5 mg/dL (8.6-10.3) 07/01/16 06:57 Phosphorus 5.1 mg/dL (2.5-5.0) H 06/23/16 11:25 Magnesium 2.1 mg/dL (1.9-2.7) 06/23/16 11:25 Iron 42 ug/dL (38-169) 06/28/16 04:38 TIBC 269 ug/dL (250-450) 06/28/16 04:38 Iron Saturation 16 % (15-55) 06/28/16 04:38 Unsaturated IBC 227 ug/dL (111-343) 06/28/16 04:38 Ferritin 150 ng/mL (30-400) 06/26/16 08:30 Total Bilirubin 4.0 mg/dL (0.3-1.0) H 07/01/16 06:57 Direct Bilirubin 0.70 mg/dL (0.0-0.2) H 06/28/16 04:38 GGTP 14 IU/L (0-65) 06/28/16 04:38 AST 64 U/L (13-39) H 07/01/16 06:57 ALT 16 U/L (7-52) 07/01/16 06:57 Alkaline Phosphatase 94 U/L (34-104) 07/01/16 06:57 Ammonia 173 umol/L (16-53) H 06/29/16 05:49 Troponin I < 0.01 ng/mL (0.01-0.05) L 06/22/16 19:33 B-Natriuretic Peptide 668.0 pg/mL (5.0-100.0) H 06/22/16 19:33 Total Protein 7.5 gm/dL (6.0-8.3) 07/01/16 06:57 Albumin 2.8 gm/dL (4.2-5.5) L 07/01/16 06:57 Globulin 4.7 gm/dL 07/01/16 06:57 Albumin/Globulin Ratio 0.6 (1.0-1.8) L 07/01/16 06:57 Urine Source CLEAN C 06/29/16 05:55 Urine Color YELLOW 06/29/16 05:55 Urine Clarity HAZY (CLEAR) 06/29/16 05:55 Urine pH 5.5 06/29/16 05:55 Ur Specific [place] 1.015 (1.005-1.030) 06/29/16 05:55 Urine Protein 30 mg/dL (NEGATIVE) H 06/29/16 05:55 Urine Glucose (UA) NEGATIVE mg/dL (NEGATIVE) 06/29/16 05:55 Urine Ketones NEGATIVE mg/dL (NEGATIVE) 06/29/16 05:55 Urine Blood NEGATIVE (NEGATIVE) 06/29/16 05:55 Urine Nitrate NEGATIVE (NEGATIVE) 06/29/16 05:55 Urine Bilirubin NEGATIVE (NEGATIVE) 06/29/16 05:55 Urine Urobilinogen 0.2 E.U./dL (0.2 - 1.0) 06/29/16 05:55 Ur Leukocyte Esterase TRACE (NEGATIVE) H 06/29/16 05:55 Urine RBC 0-2 /hpf (0-5) H 06/29/16 05:55 Urine WBC 6-10 /hpf (0-5) H 06/29/16 05:55 Ur Epithelial Cells FEW /lpf (FEW) 06/29/16 05:55 Urine Bacteria MANY /hpf (NONE SEEN) 06/29/16 05:55 Stool Occult Blood POSITIVE (NEGATIVE) 06/24/16 16:00 Random Vancomycin 13.4 ug/mL (5.0-40.0) 06/28/16 04:38 RPR NONREACTIVE (NONREACTIVE) 06/22/16 19:33 Hepatitis A IgM Ab Negative (Negative) 06/29/16 05:49 Hep Bs Antigen Negative (Negative) 06/29/16 05:49 Hep B Core IgM Ab Negative (Negative) 06/29/16 05:49 Hepatitis C Antibody >11.0 s/co ratio (0.0-0.9) H 06/29/16 05:49 Blood Type A POSITIVE 06/28/16 04:38 Antibody Screen NEGATIVE 06/28/16 04:38 Crossmatch See Detail 06/28/16 04:38 - Physical Exam Vitals and I&O: Vital Signs Temp 98.7 F 07/01/16 20:00 Pulse 107 07/01/16 20:00 Resp 20 07/01/16 20:00 BP 107/65 07/01/16 20:00 Pulse Ox 95 07/01/16 20:00 Intake & Output 07/01/16 07/01/16 07/02/16 06:59 18:59 06:59 Intake Total 500 Balance 500 Intake: Oral 500 Active Medications: Current Medications Acetaminophen (Tylenol) 325 mg PO Q6HR PRN PRN Reason: Mild Pain or Fever >101 Stop: 08/22/16 20:30 Albuterol/Ipratropium (Duoneb Neb) 3 ml HHN Q2HR PRN PRN Reason: Shortness of Breath or Wheeze Cholecalciferol (Vitamin D3) 2,000 iu PO DAILY [facility] Stop: 08/23/16 08:59 Last Admin: 07/01/16 08:54 Dose: 2,000 iu Diphenhydramine HCl (Benadryl 50 Mg/Ml) 50 mg IM Q8HR PRN PRN Reason: Agitation Stop: 08/25/16 12:10 Docusate Sodium (Colace) 100 mg PO BID [facility] Stop: 08/22/16 16:59 Last Admin: 07/01/16 19:02 Dose: Not Given Haloperidol Lactate (Haldol) 5 mg IM Q8HR PRN PRN Reason: Agitation Stop: 08/25/16 12:10 Lactulose (Cephulac) 30 gm PO TID [facility] Stop: 08/25/16 13:59 Last Admin: 07/01/16 19:02 Dose: Not Given Levothyroxine Sodium (Synthroid) 0.05 mg PO QDAC [facility] Stop: 08/23/16 07:29 Last Admin: 07/01/16 08:55 Dose: 0.05 mg Lorazepam (Ativan) 1 mg IM Q4HR PRN; Protocol PRN Reason: Agitation Stop: 08/25/16 10:37 Last Admin: 06/26/16 14:01 Dose: 1 mg Morphine Sulfate (Morphine) 1 mg IV Q4H PRN PRN Reason: SEVERE PAIN Stop: 08/22/16 04:40 Last Admin: 07/01/16 08:53 Dose: 1 mg Ondansetron HCl (Zofran Odt) 4 mg PO Q6HR PRN PRN Reason: Nausea / Vomiting Stop: 08/22/16 20:30 Pantoprazole Sodium (Protonix) 40 mg PO DAILY [facility] Stop: 08/23/16 08:59 Last Admin: 07/01/16 08:54 Dose: 40 mg Quetiapine Fumarate (Seroquel) 100 mg PO TID [facility] PRN Reason: Protocol Stop: 08/26/16 08:59 Last Admin: 07/01/16 19:03 Dose: Not Given Rifaximin (Xifaxan) 600 mg PO BID [facility] Stop: 08/25/16 16:59 Last Admin: 07/01/16 08:54 Dose: 600 mg Vitamin B Complex/Vit C/Folic Acid (Vitamin B Complex W/Vitamin C) 1 tab PO DAILY [facility] Stop: 08/23/16 08:59 Last Admin: 07/01/16 08:56 Dose: Not Given General: No acute distress HEENT: Atraumatic Neck: Supple Cardiovascular: Regular rate Lungs: Clear to auscultation Abdomen: Bowel sounds, Soft, Obese, no Tender Assessment/Plan - Problem List Patient Problems: All Active Problems MEDICAL EVALUATION PER DR FRY (Acute) - Assessment Assessment: 1. ANEMIA AND OCCULT GI BLEED. 2. ESRD - HD DEP; PULLED OUT ACCESS LINE AND NOW REPLACED. 3. MORBID OBESITY. 4. ALOC WITH ELEVATED NH3 LEVEL - R/O HEP ENCEPH. 5. MILDLY ELEVATED LFT'S - R/O CHRONIC LIVER DISEASE AND CIRRHOSIS. - Plan Plan: 1. F/U LIVER LABS. 2. OFFERED ABD US - PATIENT REFUSED. 3. EGD AND COLONOSCOPY OFFERED - PATIENT MAY AGREE TO THEM - WILL START BOWEL PREP. 4. PSYCH F/U TO DETERMINE ABILITY TO PROVIDE CONSENT. 5. PROTONIX. 6. MONITOR HGB; TRANSFUSE PRN. 7. LACTULOSE AND RIFAXIMIN.
--- NOTE | 2016-07-01 23:16 | Infectious Disease Prog Note ---
Infectious Disease Subjective - Review of Systems Service Date: 07/01/16 Subjective: No change. Permacath was placed in left subclian vein. Infectious Disease Objective - Results Result Diagrams: 07/01/16 06:57 07/01/16 06:57 Recent Labs: Laboratory Last Values WBC 4.1 Th/cmm (4.8-10.8) L D 07/01/16 06:57 RBC 3.00 Mil/cmm (4.30-5.70) L 07/01/16 06:57 Hgb 8.9 gm/dL (13.2-17.3) L 07/01/16 06:57 Hct 26.5 % (39.0-49.0) L D 07/01/16 06:57 MCV 88.2 fl (80-99) 07/01/16 06:57 MCH 29.8 pg (26.0-30.0) 07/01/16 06:57 MCHC Differential 33.8 pg (28.0-36.0) 07/01/16 06:57 RDW 16.0 % (11.5-20.0) 07/01/16 06:57 Plt Count 98 Th/cmm (150-400) L 07/01/16 06:57 MPV 9.2 fl 07/01/16 06:57 Neutrophils % 59.6 % (40.0-80.0) 07/01/16 06:57 Band Neutrophils % 2 % (0-10) 06/25/16 08:30 Lymphocytes % 14.0 % (20.0-50.0) L 07/01/16 06:57 Monocytes % 11.7 % (2.0-10.0) H 07/01/16 06:57 Eosinophils % 14.7 % (0.0-5.0) H 07/01/16 06:57 Basophils % 0.0 % (0.0-2.0) 07/01/16 06:57 Neutrophils (Manual) 41 % (40-80) 06/29/16 05:49 Lymphocytes 16 % (20-50) L 06/29/16 05:49 Monocytes 18 % (2-10) H 06/29/16 05:49 Eosinophils 22 % (0-5) H 06/29/16 05:49 Basophils 3 % (0-3) 06/29/16 05:49 Hypochromia 1+ 06/22/16 19:33 Platelet Estimate DECREASED PLATELETS (NORMAL) 06/29/16 05:49 Platelet Morphology NORMAL (NORMAL) 06/29/16 05:49 Anisocytosis 1+ 06/29/16 05:49 RBC Morph Micro Appear ABNORMAL (NORMAL) 06/29/16 05:49 PT 12.7 SECONDS (9.5-11.5) H 07/01/16 06:57 INR 1.26 (0.5-1.4) 07/01/16 06:57 PTT (Actin FS) 28.3 SECONDS (26.0-38.0) 06/28/16 04:38 Specimen Source art 06/22/16 20:03 Sample Site Right Radial 06/22/16 20:03 pH 7.49 (7.35-7.45) H 06/22/16 20:03 pCO2 34.0 mmHg (35.0-45.0) L 06/22/16 20:03 pO2 97.0 mmHg (80.0-100.0) 06/22/16 20:03 HCO3 25.9 mmol/L (20.0-26.0) 06/22/16 20:03 Base Excess 2.8 mmol/L (-3.0-3.0) 06/22/16 20:03 O2 Saturation 98.0 % (92.0-100.0) 06/22/16 20:03 Estuardo Test P 06/22/16 20:03 Vent Rate NA 06/22/16 20:03 Inspired O2 21 06/22/16 20:03 Tidal Volume NA 06/22/16 20:03 PEEP NA 06/22/16 20:03 Pressure (ins/psv/peep) NA 06/22/16 20:03 Critical Value RPINEIRA 06/22/16 20:03 Sodium 135 mEq/L (136-145) L 07/01/16 06:57 Potassium 3.2 mEq/L (3.5-5.1) L 07/01/16 06:57 Chloride 103 mEq/L (98-107) 07/01/16 06:57 Carbon Dioxide 24.6 mEq/L (21.0-31.0) 07/01/16 06:57 Anion Gap 10.6 (7.0-16.0) 07/01/16 06:57 BUN 58 mg/dL (7-25) H 07/01/16 06:57 Creatinine 2.7 mg/dL (0.7-1.3) H 07/01/16 06:57 Est GFR ( Amer) 32.5 ml/min (>90) 07/01/16 06:57 Est GFR (Non-Af Amer) 26.8 ml/min 07/01/16 06:57 BUN/Creatinine Ratio 21.5 07/01/16 06:57 Glucose 110 mg/dL (70-105) H 07/01/16 06:57 Calcium 9.5 mg/dL (8.6-10.3) 07/01/16 06:57 Phosphorus 5.1 mg/dL (2.5-5.0) H 06/23/16 11:25 Magnesium 2.1 mg/dL (1.9-2.7) 06/23/16 11:25 Iron 42 ug/dL (38-169) 06/28/16 04:38 TIBC 269 ug/dL (250-450) 06/28/16 04:38 Iron Saturation 16 % (15-55) 06/28/16 04:38 Unsaturated IBC 227 ug/dL (111-343) 06/28/16 04:38 Ferritin 150 ng/mL (30-400) 06/26/16 08:30 Total Bilirubin 4.0 mg/dL (0.3-1.0) H 07/01/16 06:57 Direct Bilirubin 0.70 mg/dL (0.0-0.2) H 06/28/16 04:38 GGTP 14 IU/L (0-65) 06/28/16 04:38 AST 64 U/L (13-39) H 07/01/16 06:57 ALT 16 U/L (7-52) 07/01/16 06:57 Alkaline Phosphatase 94 U/L (34-104) 07/01/16 06:57 Ammonia 173 umol/L (16-53) H 06/29/16 05:49 Troponin I < 0.01 ng/mL (0.01-0.05) L 06/22/16 19:33 B-Natriuretic Peptide 668.0 pg/mL (5.0-100.0) H 06/22/16 19:33 Total Protein 7.5 gm/dL (6.0-8.3) 07/01/16 06:57 Albumin 2.8 gm/dL (4.2-5.5) L 07/01/16 06:57 Globulin 4.7 gm/dL 07/01/16 06:57 Albumin/Globulin Ratio 0.6 (1.0-1.8) L 07/01/16 06:57 Urine Source CLEAN C 06/29/16 05:55 Urine Color YELLOW 06/29/16 05:55 Urine Clarity HAZY (CLEAR) 06/29/16 05:55 Urine pH 5.5 06/29/16 05:55 Ur Specific [place] 1.015 (1.005-1.030) 06/29/16 05:55 Urine Protein 30 mg/dL (NEGATIVE) H 06/29/16 05:55 Urine Glucose (UA) NEGATIVE mg/dL (NEGATIVE) 06/29/16 05:55 Urine Ketones NEGATIVE mg/dL (NEGATIVE) 06/29/16 05:55 Urine Blood NEGATIVE (NEGATIVE) 06/29/16 05:55 Urine Nitrate NEGATIVE (NEGATIVE) 06/29/16 05:55 Urine Bilirubin NEGATIVE (NEGATIVE) 06/29/16 05:55 Urine Urobilinogen 0.2 E.U./dL (0.2 - 1.0) 06/29/16 05:55 Ur Leukocyte Esterase TRACE (NEGATIVE) H 06/29/16 05:55 Urine RBC 0-2 /hpf (0-5) H 06/29/16 05:55 Urine WBC 6-10 /hpf (0-5) H 06/29/16 05:55 Ur Epithelial Cells FEW /lpf (FEW) 06/29/16 05:55 Urine Bacteria MANY /hpf (NONE SEEN) 06/29/16 05:55 Stool Occult Blood POSITIVE (NEGATIVE) 06/24/16 16:00 Random Vancomycin 13.4 ug/mL (5.0-40.0) 06/28/16 04:38 RPR NONREACTIVE (NONREACTIVE) 06/22/16 19:33 Hepatitis A IgM Ab Negative (Negative) 06/29/16 05:49 Hep Bs Antigen Negative (Negative) 06/29/16 05:49 Hep B Core IgM Ab Negative (Negative) 06/29/16 05:49 Hepatitis C Antibody >11.0 s/co ratio (0.0-0.9) H 06/29/16 05:49 Blood Type A POSITIVE 06/28/16 04:38 Antibody Screen NEGATIVE 06/28/16 04:38 Crossmatch See Detail 06/28/16 04:38 - Physical Exam Vitals and I&O: Vital Signs Temp 98.7 F 07/01/16 20:00 Pulse 107 07/01/16 20:00 Resp 20 07/01/16 20:00 BP 107/65 07/01/16 20:00 Pulse Ox 95 07/01/16 20:00 Intake & Output 07/01/16 07/01/16 07/02/16 06:59 18:59 06:59 Intake Total 500 Balance 500 Intake: Oral 500 Active Medications: Current Medications Acetaminophen (Tylenol) 325 mg PO Q6HR PRN PRN Reason: Mild Pain or Fever >101 Stop: 08/22/16 20:30 Albuterol/Ipratropium (Duoneb Neb) 3 ml HHN Q2HR PRN PRN Reason: Shortness of Breath or Wheeze Cholecalciferol (Vitamin D3) 2,000 iu PO DAILY [facility] Stop: 08/23/16 08:59 Last Admin: 07/01/16 08:54 Dose: 2,000 iu Diphenhydramine HCl (Benadryl 50 Mg/Ml) 50 mg IM Q8HR PRN PRN Reason: Agitation Stop: 08/25/16 12:10 Docusate Sodium (Colace) 100 mg PO BID [facility] Stop: 08/22/16 16:59 Last Admin: 07/01/16 19:02 Dose: Not Given Haloperidol Lactate (Haldol) 5 mg IM Q8HR PRN PRN Reason: Agitation Stop: 08/25/16 12:10 Lactulose (Cephulac) 30 gm PO TID [facility] Stop: 08/25/16 13:59 Last Admin: 07/01/16 19:02 Dose: Not Given Levothyroxine Sodium (Synthroid) 0.05 mg PO QDAC [facility] Stop: 08/23/16 07:29 Last Admin: 07/01/16 08:55 Dose: 0.05 mg Lorazepam (Ativan) 1 mg IM Q4HR PRN; Protocol PRN Reason: Agitation Stop: 08/25/16 10:37 Last Admin: 06/26/16 14:01 Dose: 1 mg Morphine Sulfate (Morphine) 1 mg IV Q4H PRN PRN Reason: SEVERE PAIN Stop: 08/22/16 04:40 Last Admin: 07/01/16 08:53 Dose: 1 mg Ondansetron HCl (Zofran Odt) 4 mg PO Q6HR PRN PRN Reason: Nausea / Vomiting Stop: 08/22/16 20:30 Pantoprazole Sodium (Protonix) 40 mg PO DAILY [facility] Stop: 08/23/16 08:59 Last Admin: 07/01/16 08:54 Dose: 40 mg Quetiapine Fumarate (Seroquel) 100 mg PO TID [facility] PRN Reason: Protocol Stop: 08/26/16 08:59 Last Admin: 07/01/16 19:03 Dose: Not Given Rifaximin (Xifaxan) 600 mg PO BID [facility] Stop: 08/25/16 16:59 Last Admin: 07/01/16 08:54 Dose: 600 mg Vitamin B Complex/Vit C/Folic Acid (Vitamin B Complex W/Vitamin C) 1 tab PO DAILY [facility] Stop: 08/23/16 08:59 Last Admin: 07/01/16 08:56 Dose: Not Given General: no acute distress, other (obese) HEENT: atraumatic Neck: supple Cardiovascular: S1S2, regular Lungs: clear to auscultation bilaterally, clear to percussion Abdomen: soft, no tender, no distended Extremities: no cyanosis, no clubbing, no edema Neurological: awake, alert, oriented Skin: intact Infectious Disease Assmt/Plan - Problem List Patient Problems: All Active Problems MEDICAL EVALUATION PER DR FRY (Acute) - Assessment Assessment: 1. Cellulitis of legs. improved. treated. 2. Lymphedema of legs. 3. CKD 5 on HD. 4. Morbid obesity. - Plan Plan: Continue the skin care.
--- NOTE | 2016-07-02 04:37 | Progress Notes ---
Case discussed with staff of the patient. The patient was alert. He denies any intent to harm himself or anybody. He is not in dialysis today. He was surprised when I asked him if he would ever want to harm himself, said he does not do that, he will not do that. He is compliant with the medication with no side effects, no sedation, no nausea, no extrapyramidal symptoms, no aggressive behavior lately, he is on Seroquel 100 mg 3 times a day. Thank you very much for allowing me to participate in the care of this most interesting gentleman. JOB# [id number]
[2016-07-02] MEDS: Levothyroxine 0.05 Mg Tab PO SCH (07:17)
[2016-07-02 07:49] LABS: ANION GAP 7.4 (7.0-16.0); BUN/CREATININE RATIO 21.5; CALCIUM SERUM 9.6 mg/dL (8.6-10.3); CARBON DIOXIDE 25.9 mEq/L (21.0-31.0); CREATININE - SERUM 2.7 mg/dL (0.7-1.3); POTASSIUM SERUM 3.3 mEq/L (3.5-5.1)
[2016-07-02 07:50] LABS: HEMATOCRIT 28.8 % (39.0-49.0); HEMOGLOBIN 9.6 gm/dL (13.2-17.3); MEAN CELL VOLUME 88.8 fl (80-99); MEAN CORPUSCULAR HEMOGLOBIN 29.7 pg (26.0-30.0); MEAN CORPUSCULAR HGB CONC 33.5 pg (28.0-36.0); MEAN PLATELET VOLUME 9.8 fl; PLATELET COUNT 86 Th/cmm (150-400); RED BLOOD COUNT 3.24 Mil/cmm (4.30-5.70); RED CELL DISTRIBUTION WIDTH 16.1 % (11.5-20.0)
[2016-07-02] MEDS: Vitamin B Complex w/Vitamin C Tab PO SCH (08:37)
[2016-07-02] MEDS: Lactulose 10 Gm/15 mL 30mL UDC PO SCH ×3 (08:37→21:59)
[2016-07-02] MEDS: Pantoprazole 40 mg EC Tab PO SCH (08:38)
--- NOTE | 2016-07-02 09:21 | General Progress Note ---
Subjective - Review of Systems Subjective: pt refusing evrything pulled out vascular access yesterday spoke to dr forrest yesterday renal notes noted Objective - Results Result Diagrams: 07/02/16 06:40 07/02/16 06:40 Recent Labs: Laboratory Last Values WBC 5.0 Th/cmm (4.8-10.8) D 07/02/16 06:40 RBC 3.24 Mil/cmm (4.30-5.70) L 07/02/16 06:40 Hgb 9.6 gm/dL (13.2-17.3) L 07/02/16 06:40 Hct 28.8 % (39.0-49.0) L 07/02/16 06:40 MCV 88.8 fl (80-99) 07/02/16 06:40 MCH 29.7 pg (26.0-30.0) 07/02/16 06:40 MCHC Differential 33.5 pg (28.0-36.0) 07/02/16 06:40 RDW 16.1 % (11.5-20.0) 07/02/16 06:40 Plt Count 86 Th/cmm (150-400) L 07/02/16 06:40 MPV 9.8 fl 07/02/16 06:40 Neutrophils % 59.6 % (40.0-80.0) 07/01/16 06:57 Band Neutrophils % 2 % (0-10) 06/25/16 08:30 Lymphocytes % 14.0 % (20.0-50.0) L 07/01/16 06:57 Monocytes % 11.7 % (2.0-10.0) H 07/01/16 06:57 Eosinophils % 14.7 % (0.0-5.0) H 07/01/16 06:57 Basophils % 0.0 % (0.0-2.0) 07/01/16 06:57 Neutrophils (Manual) 41 % (40-80) 06/29/16 05:49 Lymphocytes 16 % (20-50) L 06/29/16 05:49 Monocytes 18 % (2-10) H 06/29/16 05:49 Eosinophils 22 % (0-5) H 06/29/16 05:49 Basophils 3 % (0-3) 06/29/16 05:49 Hypochromia 1+ 06/22/16 19:33 Platelet Estimate DECREASED PLATELETS (NORMAL) 06/29/16 05:49 Platelet Morphology NORMAL (NORMAL) 06/29/16 05:49 Anisocytosis 1+ 06/29/16 05:49 RBC Morph Micro Appear ABNORMAL (NORMAL) 06/29/16 05:49 PT 12.7 SECONDS (9.5-11.5) H 07/01/16 06:57 INR 1.26 (0.5-1.4) 07/01/16 06:57 PTT (Actin FS) 28.3 SECONDS (26.0-38.0) 06/28/16 04:38 Specimen Source art 06/22/16 20:03 Sample Site Right Radial 06/22/16 20:03 pH 7.49 (7.35-7.45) H 06/22/16 20:03 pCO2 34.0 mmHg (35.0-45.0) L 06/22/16 20:03 pO2 97.0 mmHg (80.0-100.0) 06/22/16 20:03 HCO3 25.9 mmol/L (20.0-26.0) 06/22/16 20:03 Base Excess 2.8 mmol/L (-3.0-3.0) 06/22/16 20:03 O2 Saturation 98.0 % (92.0-100.0) 06/22/16 20:03 Estuardo Test P 06/22/16 20:03 Vent Rate NA 06/22/16 20:03 Inspired O2 21 06/22/16 20:03 Tidal Volume NA 06/22/16 20:03 PEEP NA 06/22/16 20:03 Pressure (ins/psv/peep) NA 06/22/16 20:03 Critical Value RPINEIRA 06/22/16 20:03 Sodium 133 mEq/L (136-145) L 07/02/16 06:40 Potassium 3.3 mEq/L (3.5-5.1) L 07/02/16 06:40 Chloride 103 mEq/L (98-107) 07/02/16 06:40 Carbon Dioxide 25.9 mEq/L (21.0-31.0) 07/02/16 06:40 Anion Gap 7.4 (7.0-16.0) 07/02/16 06:40 BUN 58 mg/dL (7-25) H 07/02/16 06:40 Creatinine 2.7 mg/dL (0.7-1.3) H 07/02/16 06:40 Est GFR ( Amer) 32.5 ml/min (>90) 07/02/16 06:40 Est GFR (Non-Af Amer) 26.8 ml/min 07/02/16 06:40 BUN/Creatinine Ratio 21.5 07/02/16 06:40 Glucose 101 mg/dL (70-105) 07/02/16 06:40 Calcium 9.6 mg/dL (8.6-10.3) 07/02/16 06:40 Phosphorus 5.1 mg/dL (2.5-5.0) H 06/23/16 11:25 Magnesium 2.0 mg/dL (1.9-2.7) 07/02/16 06:40 Iron 42 ug/dL (38-169) 06/28/16 04:38 TIBC 269 ug/dL (250-450) 06/28/16 04:38 Iron Saturation 16 % (15-55) 06/28/16 04:38 Unsaturated IBC 227 ug/dL (111-343) 06/28/16 04:38 Ferritin 150 ng/mL (30-400) 06/26/16 08:30 Total Bilirubin 4.0 mg/dL (0.3-1.0) H 07/01/16 06:57 Direct Bilirubin 0.70 mg/dL (0.0-0.2) H 06/28/16 04:38 GGTP 14 IU/L (0-65) 06/28/16 04:38 AST 64 U/L (13-39) H 07/01/16 06:57 ALT 16 U/L (7-52) 07/01/16 06:57 Alkaline Phosphatase 94 U/L (34-104) 07/01/16 06:57 Ammonia 105 umol/L (16-53) H 07/02/16 06:40 Troponin I < 0.01 ng/mL (0.01-0.05) L 06/22/16 19:33 B-Natriuretic Peptide 668.0 pg/mL (5.0-100.0) H 06/22/16 19:33 Total Protein 7.5 gm/dL (6.0-8.3) 07/01/16 06:57 Albumin 2.8 gm/dL (4.2-5.5) L 07/01/16 06:57 Globulin 4.7 gm/dL 07/01/16 06:57 Albumin/Globulin Ratio 0.6 (1.0-1.8) L 07/01/16 06:57 Urine Source CLEAN C 06/29/16 05:55 Urine Color YELLOW 06/29/16 05:55 Urine Clarity HAZY (CLEAR) 06/29/16 05:55 Urine pH 5.5 06/29/16 05:55 Ur Specific [place] 1.015 (1.005-1.030) 06/29/16 05:55 Urine Protein 30 mg/dL (NEGATIVE) H 06/29/16 05:55 Urine Glucose (UA) NEGATIVE mg/dL (NEGATIVE) 06/29/16 05:55 Urine Ketones NEGATIVE mg/dL (NEGATIVE) 06/29/16 05:55 Urine Blood NEGATIVE (NEGATIVE) 06/29/16 05:55 Urine Nitrate NEGATIVE (NEGATIVE) 06/29/16 05:55 Urine Bilirubin NEGATIVE (NEGATIVE) 06/29/16 05:55 Urine Urobilinogen 0.2 E.U./dL (0.2 - 1.0) 06/29/16 05:55 Ur Leukocyte Esterase TRACE (NEGATIVE) H 06/29/16 05:55 Urine RBC 0-2 /hpf (0-5) H 06/29/16 05:55 Urine WBC 6-10 /hpf (0-5) H 06/29/16 05:55 Ur Epithelial Cells FEW /lpf (FEW) 06/29/16 05:55 Urine Bacteria MANY /hpf (NONE SEEN) 06/29/16 05:55 Stool Occult Blood POSITIVE (NEGATIVE) 06/24/16 16:00 Random Vancomycin 13.4 ug/mL (5.0-40.0) 06/28/16 04:38 RPR NONREACTIVE (NONREACTIVE) 06/22/16 19:33 Hepatitis A IgM Ab Negative (Negative) 06/29/16 05:49 Hep Bs Antigen Negative (Negative) 06/29/16 05:49 Hep B Core IgM Ab Negative (Negative) 06/29/16 05:49 Hepatitis C Antibody >11.0 s/co ratio (0.0-0.9) H 06/29/16 05:49 Blood Type A POSITIVE 06/28/16 04:38 Antibody Screen NEGATIVE 06/28/16 04:38 Crossmatch See Detail 06/28/16 04:38 - Physical Exam Vitals and I&O: Vital Signs Temp 98.7 F 07/02/16 07:49 Pulse 121 07/02/16 07:49 Resp 20 07/02/16 07:49 BP 118/61 07/02/16 07:49 Pulse Ox 100 07/02/16 07:49 Active Medications: Current Medications Acetaminophen (Tylenol) 325 mg PO Q6HR PRN PRN Reason: Mild Pain or Fever >101 Stop: 08/22/16 20:30 Albuterol/Ipratropium (Duoneb Neb) 3 ml HHN Q2HR PRN PRN Reason: Shortness of Breath or Wheeze Cholecalciferol (Vitamin D3) 2,000 iu PO DAILY [facility] Stop: 08/23/16 08:59 Last Admin: 07/02/16 08:38 Dose: 2,000 iu Diphenhydramine HCl (Benadryl 50 Mg/Ml) 50 mg IM Q8HR PRN PRN Reason: Agitation Stop: 08/25/16 12:10 Docusate Sodium (Colace) 100 mg PO BID [facility] Stop: 08/22/16 16:59 Last Admin: 07/02/16 08:38 Dose: 100 mg Haloperidol Lactate (Haldol) 5 mg IM Q8HR PRN PRN Reason: Agitation Stop: 08/25/16 12:10 Lactulose (Cephulac) 30 gm PO TID [facility] Stop: 08/25/16 13:59 Last Admin: 07/02/16 08:37 Dose: 30 gm Levothyroxine Sodium (Synthroid) 0.05 mg PO QDAC [facility] Stop: 08/23/16 07:29 Last Admin: 07/02/16 07:17 Dose: 0.05 mg Lorazepam (Ativan) 1 mg IM Q4HR PRN; Protocol PRN Reason: Agitation Stop: 08/25/16 10:37 Last Admin: 06/26/16 14:01 Dose: 1 mg Morphine Sulfate (Morphine) 1 mg IV Q4H PRN PRN Reason: SEVERE PAIN Stop: 08/22/16 04:40 Last Admin: 07/01/16 08:53 Dose: 1 mg Ondansetron HCl (Zofran Odt) 4 mg PO Q6HR PRN PRN Reason: Nausea / Vomiting Stop: 08/22/16 20:30 Pantoprazole Sodium (Protonix) 40 mg PO DAILY [facility] Stop: 08/23/16 08:59 Last Admin: 07/02/16 08:38 Dose: 40 mg Quetiapine Fumarate (Seroquel) 100 mg PO TID [facility] PRN Reason: Protocol Stop: 08/26/16 08:59 Last Admin: 07/02/16 08:38 Dose: Not Given Vitamin B Complex/Vit C/Folic Acid (Vitamin B Complex W/Vitamin C) 1 tab PO DAILY [facility] Stop: 08/23/16 08:59 Last Admin: 07/02/16 08:37 Dose: 1 tab Assessment/Plan - Problem List Patient Problems: All Active Problems MEDICAL EVALUATION PER DR FRY (Acute) - Assessment Assessment: 1. Cellulitis of legs. 2. Lymphedema of legs. 3. CKD 5 on HD. 4. Morbid obesity. 5 anemia 6 gi bleed 7 psychosis - Plan Plan: ivabx follow up labs id consult
[2016-07-02 10:50] LABS: AMYLASE SERUM 28 U/L (29-103); LIPASE 31 U/L (11-82)
[2016-07-02 12:18] LABS: ANISOCYTOSIS 1+; BAND NEUTROPHILE 1 % (0-10); EOSINOPHIL 20 % (0-5); NEUTROPHILS 57 % (40-80); PLATELET ESTIMATE DECREASED PLATELETS (NORMAL); PLATELET MORPHOLOGY NORMAL (NORMAL); TOTAL CELLS COUNTED 100
--- NOTE | 2016-07-02 13:14 | General Progress Note ---
Subjective - Review of Systems Service Date: 07/02/16 Subjective: more cooperative, less agitated, wants to be transferred to another facility Objective - Results Result Diagrams: 07/02/16 06:40 07/02/16 06:40 Recent Labs: Laboratory Last Values WBC 5.0 Th/cmm (4.8-10.8) D 07/02/16 06:40 RBC 3.24 Mil/cmm (4.30-5.70) L 07/02/16 06:40 Hgb 9.6 gm/dL (13.2-17.3) L 07/02/16 06:40 Hct 28.8 % (39.0-49.0) L 07/02/16 06:40 MCV 88.8 fl (80-99) 07/02/16 06:40 MCH 29.7 pg (26.0-30.0) 07/02/16 06:40 MCHC Differential 33.5 pg (28.0-36.0) 07/02/16 06:40 RDW 16.1 % (11.5-20.0) 07/02/16 06:40 Plt Count 86 Th/cmm (150-400) L 07/02/16 06:40 MPV 9.8 fl 07/02/16 06:40 Neutrophils % 59.6 % (40.0-80.0) 07/01/16 06:57 Band Neutrophils % 1 % (0-10) 07/02/16 06:40 Lymphocytes % 14.0 % (20.0-50.0) L 07/01/16 06:57 Monocytes % 11.7 % (2.0-10.0) H 07/01/16 06:57 Eosinophils % 14.7 % (0.0-5.0) H 07/01/16 06:57 Basophils % 0.0 % (0.0-2.0) 07/01/16 06:57 Neutrophils (Manual) 57 % (40-80) 07/02/16 06:40 Lymphocytes 13 % (20-50) L 07/02/16 06:40 Monocytes 9 % (2-10) 07/02/16 06:40 Eosinophils 20 % (0-5) H 07/02/16 06:40 Basophils 3 % (0-3) 06/29/16 05:49 Hypochromia 1+ 06/22/16 19:33 Platelet Estimate DECREASED PLATELETS (NORMAL) 07/02/16 06:40 Platelet Morphology NORMAL (NORMAL) 07/02/16 06:40 Anisocytosis 1+ 07/02/16 06:40 RBC Morph Micro Appear ABNORMAL (NORMAL) 07/02/16 06:40 PT 12.7 SECONDS (9.5-11.5) H 07/01/16 06:57 INR 1.26 (0.5-1.4) 07/01/16 06:57 PTT (Actin FS) 28.3 SECONDS (26.0-38.0) 06/28/16 04:38 Specimen Source art 06/22/16 20:03 Sample Site Right Radial 06/22/16 20:03 pH 7.49 (7.35-7.45) H 06/22/16 20:03 pCO2 34.0 mmHg (35.0-45.0) L 06/22/16 20:03 pO2 97.0 mmHg (80.0-100.0) 06/22/16 20:03 HCO3 25.9 mmol/L (20.0-26.0) 06/22/16 20:03 Base Excess 2.8 mmol/L (-3.0-3.0) 06/22/16 20:03 O2 Saturation 98.0 % (92.0-100.0) 06/22/16 20:03 Estuardo Test P 06/22/16 20:03 Vent Rate NA 06/22/16 20:03 Inspired O2 21 06/22/16 20:03 Tidal Volume NA 06/22/16 20:03 PEEP NA 06/22/16 20:03 Pressure (ins/psv/peep) NA 06/22/16 20:03 Critical Value RPINEIRA 06/22/16 20:03 Sodium 133 mEq/L (136-145) L 07/02/16 06:40 Potassium 3.3 mEq/L (3.5-5.1) L 07/02/16 06:40 Chloride 103 mEq/L (98-107) 07/02/16 06:40 Carbon Dioxide 25.9 mEq/L (21.0-31.0) 07/02/16 06:40 Anion Gap 7.4 (7.0-16.0) 07/02/16 06:40 BUN 58 mg/dL (7-25) H 07/02/16 06:40 Creatinine 2.7 mg/dL (0.7-1.3) H 07/02/16 06:40 Est GFR ( Amer) 32.5 ml/min (>90) 07/02/16 06:40 Est GFR (Non-Af Amer) 26.8 ml/min 07/02/16 06:40 BUN/Creatinine Ratio 21.5 07/02/16 06:40 Glucose 101 mg/dL (70-105) 07/02/16 06:40 Calcium 9.6 mg/dL (8.6-10.3) 07/02/16 06:40 Phosphorus 4.1 mg/dL (2.5-5.0) 07/02/16 06:40 Magnesium 2.0 mg/dL (1.9-2.7) 07/02/16 06:40 Iron 42 ug/dL (38-169) 06/28/16 04:38 TIBC 269 ug/dL (250-450) 06/28/16 04:38 Iron Saturation 16 % (15-55) 06/28/16 04:38 Unsaturated IBC 227 ug/dL (111-343) 06/28/16 04:38 Ferritin 150 ng/mL (30-400) 06/26/16 08:30 Total Bilirubin 4.0 mg/dL (0.3-1.0) H 07/01/16 06:57 Direct Bilirubin 0.70 mg/dL (0.0-0.2) H 06/28/16 04:38 GGTP 14 IU/L (0-65) 06/28/16 04:38 AST 64 U/L (13-39) H 07/01/16 06:57 ALT 16 U/L (7-52) 07/01/16 06:57 Alkaline Phosphatase 94 U/L (34-104) 07/01/16 06:57 Ammonia 105 umol/L (16-53) H 07/02/16 06:40 Troponin I < 0.01 ng/mL (0.01-0.05) L 06/22/16 19:33 B-Natriuretic Peptide 668.0 pg/mL (5.0-100.0) H 06/22/16 19:33 Total Protein 7.5 gm/dL (6.0-8.3) 07/01/16 06:57 Albumin 2.8 gm/dL (4.2-5.5) L 07/01/16 06:57 Globulin 4.7 gm/dL 07/01/16 06:57 Albumin/Globulin Ratio 0.6 (1.0-1.8) L 07/01/16 06:57 Amylase 28 U/L (29-103) L 07/02/16 06:40 Lipase 31 U/L (11-82) 07/02/16 06:40 Urine Source CLEAN C 06/29/16 05:55 Urine Color YELLOW 06/29/16 05:55 Urine Clarity HAZY (CLEAR) 06/29/16 05:55 Urine pH 5.5 06/29/16 05:55 Ur Specific [place] 1.015 (1.005-1.030) 06/29/16 05:55 Urine Protein 30 mg/dL (NEGATIVE) H 06/29/16 05:55 Urine Glucose (UA) NEGATIVE mg/dL (NEGATIVE) 06/29/16 05:55 Urine Ketones NEGATIVE mg/dL (NEGATIVE) 06/29/16 05:55 Urine Blood NEGATIVE (NEGATIVE) 06/29/16 05:55 Urine Nitrate NEGATIVE (NEGATIVE) 06/29/16 05:55 Urine Bilirubin NEGATIVE (NEGATIVE) 06/29/16 05:55 Urine Urobilinogen 0.2 E.U./dL (0.2 - 1.0) 06/29/16 05:55 Ur Leukocyte Esterase TRACE (NEGATIVE) H 06/29/16 05:55 Urine RBC 0-2 /hpf (0-5) H 06/29/16 05:55 Urine WBC 6-10 /hpf (0-5) H 06/29/16 05:55 Ur Epithelial Cells FEW /lpf (FEW) 06/29/16 05:55 Urine Bacteria MANY /hpf (NONE SEEN) 06/29/16 05:55 Stool Occult Blood POSITIVE (NEGATIVE) 06/24/16 16:00 Random Vancomycin 13.4 ug/mL (5.0-40.0) 06/28/16 04:38 RPR NONREACTIVE (NONREACTIVE) 06/22/16 19:33 Hepatitis A IgM Ab Negative (Negative) 06/29/16 05:49 Hep Bs Antigen Negative (Negative) 06/29/16 05:49 Hep B Core IgM Ab Negative (Negative) 06/29/16 05:49 Hepatitis C Antibody >11.0 s/co ratio (0.0-0.9) H 06/29/16 05:49 Blood Type A POSITIVE 06/28/16 04:38 Antibody Screen NEGATIVE 06/28/16 04:38 Crossmatch See Detail 06/28/16 04:38 - Physical Exam Vitals and I&O: Vital Signs Temp 98.7 F 07/02/16 07:49 Pulse 121 07/02/16 07:49 Resp 20 07/02/16 07:49 BP 118/61 07/02/16 07:49 Pulse Ox 100 07/02/16 07:49 Active Medications: Current Medications Acetaminophen (Tylenol) 325 mg PO Q6HR PRN PRN Reason: Mild Pain or Fever >101 Stop: 08/22/16 20:30 Albuterol/Ipratropium (Duoneb Neb) 3 ml HHN Q2HR PRN PRN Reason: Shortness of Breath or Wheeze Cholecalciferol (Vitamin D3) 2,000 iu PO DAILY [facility] Stop: 08/23/16 08:59 Last Admin: 07/02/16 08:38 Dose: 2,000 iu Diphenhydramine HCl (Benadryl 50 Mg/Ml) 50 mg IM Q8HR PRN PRN Reason: Agitation Stop: 08/25/16 12:10 Docusate Sodium (Colace) 100 mg PO BID [facility] Stop: 08/22/16 16:59 Last Admin: 07/02/16 08:38 Dose: 100 mg Haloperidol Lactate (Haldol) 5 mg IM Q8HR PRN PRN Reason: Agitation Stop: 08/25/16 12:10 Lactulose (Cephulac) 30 gm PO TID [facility] Stop: 08/25/16 13:59 Last Admin: 07/02/16 08:37 Dose: 30 gm Levothyroxine Sodium (Synthroid) 0.05 mg PO QDAC [facility] Stop: 08/23/16 07:29 Last Admin: 07/02/16 07:17 Dose: 0.05 mg Lorazepam (Ativan) 1 mg IM Q4HR PRN; Protocol PRN Reason: Agitation Stop: 08/25/16 10:37 Last Admin: 06/26/16 14:01 Dose: 1 mg Morphine Sulfate (Morphine) 1 mg IV Q4H PRN PRN Reason: SEVERE PAIN Stop: 08/22/16 04:40 Last Admin: 07/01/16 08:53 Dose: 1 mg Ondansetron HCl (Zofran Odt) 4 mg PO Q6HR PRN PRN Reason: Nausea / Vomiting Stop: 08/22/16 20:30 Pantoprazole Sodium (Protonix) 40 mg PO DAILY [facility] Stop: 08/23/16 08:59 Last Admin: 07/02/16 08:38 Dose: 40 mg Quetiapine Fumarate (Seroquel) 100 mg PO TID [facility] PRN Reason: Protocol Stop: 08/26/16 08:59 Last Admin: 07/02/16 08:38 Dose: Not Given Vitamin B Complex/Vit C/Folic Acid (Vitamin B Complex W/Vitamin C) 1 tab PO DAILY [facility] Stop: 08/23/16 08:59 Last Admin: 07/02/16 08:37 Dose: 1 tab General: Alert, No acute distress HEENT: Atraumatic, Mucous membr. moist/pink Neck: Supple, +2 carotid pulse wo bruit Cardiovascular: Regular rate, Normal S1, Normal S2 Lungs: Clear to auscultation Abdomen: Bowel sounds, Soft, Obese Extremities: Edema Neurological: Sensation intact Skin: no Rash Psych/Mental Status: Other (slightly agitated) Assessment/Plan - Problem List Patient Problems: All Active Problems MEDICAL EVALUATION PER DR FRY (Acute) - Assessment Assessment: esrd on hd persistent cellulitis b/l lower ext acute on chronic anemia possible gi bleed ohs chronic a. fib hypothyroid anasarca functional quadriplegia chronic venous stasis dermatitis acute decomp psychosis hypokalemia - Plan Plan: pt. pulled out perma cath schedule for PICC line, then transfuse 2 units PRBC hgb/hct slightly improved to 9.6/28.8 transfused 2 units prbc schedule for hd today adela Gates
[2016-07-02] MEDS ORDERED: Potassium Chloride 20 mEq ER Tab PO ONE (13:15)
--- NOTE | 2016-07-02 13:43 | General Progress Note ---
Subjective - Review of Systems Events since last encounter: 07/02/16 patient very cooperative and oriented will do vein mapping of upper extremities for possible fistula/shunt Objective - Results Result Diagrams: 07/02/16 06:40 07/02/16 06:40 Recent Labs: Laboratory Last Values WBC 5.0 Th/cmm (4.8-10.8) D 07/02/16 06:40 RBC 3.24 Mil/cmm (4.30-5.70) L 07/02/16 06:40 Hgb 9.6 gm/dL (13.2-17.3) L 07/02/16 06:40 Hct 28.8 % (39.0-49.0) L 07/02/16 06:40 MCV 88.8 fl (80-99) 07/02/16 06:40 MCH 29.7 pg (26.0-30.0) 07/02/16 06:40 MCHC Differential 33.5 pg (28.0-36.0) 07/02/16 06:40 RDW 16.1 % (11.5-20.0) 07/02/16 06:40 Plt Count 86 Th/cmm (150-400) L 07/02/16 06:40 MPV 9.8 fl 07/02/16 06:40 Neutrophils % 59.6 % (40.0-80.0) 07/01/16 06:57 Band Neutrophils % 1 % (0-10) 07/02/16 06:40 Lymphocytes % 14.0 % (20.0-50.0) L 07/01/16 06:57 Monocytes % 11.7 % (2.0-10.0) H 07/01/16 06:57 Eosinophils % 14.7 % (0.0-5.0) H 07/01/16 06:57 Basophils % 0.0 % (0.0-2.0) 07/01/16 06:57 Neutrophils (Manual) 57 % (40-80) 07/02/16 06:40 Lymphocytes 13 % (20-50) L 07/02/16 06:40 Monocytes 9 % (2-10) 07/02/16 06:40 Eosinophils 20 % (0-5) H 07/02/16 06:40 Basophils 3 % (0-3) 06/29/16 05:49 Hypochromia 1+ 06/22/16 19:33 Platelet Estimate DECREASED PLATELETS (NORMAL) 07/02/16 06:40 Platelet Morphology NORMAL (NORMAL) 07/02/16 06:40 Anisocytosis 1+ 07/02/16 06:40 RBC Morph Micro Appear ABNORMAL (NORMAL) 07/02/16 06:40 PT 12.7 SECONDS (9.5-11.5) H 07/01/16 06:57 INR 1.26 (0.5-1.4) 07/01/16 06:57 PTT (Actin FS) 28.3 SECONDS (26.0-38.0) 06/28/16 04:38 Specimen Source art 06/22/16 20:03 Sample Site Right Radial 06/22/16 20:03 pH 7.49 (7.35-7.45) H 06/22/16 20:03 pCO2 34.0 mmHg (35.0-45.0) L 06/22/16 20:03 pO2 97.0 mmHg (80.0-100.0) 06/22/16 20:03 HCO3 25.9 mmol/L (20.0-26.0) 06/22/16 20:03 Base Excess 2.8 mmol/L (-3.0-3.0) 06/22/16 20:03 O2 Saturation 98.0 % (92.0-100.0) 06/22/16 20:03 Estuardo Test P 06/22/16 20:03 Vent Rate NA 06/22/16 20:03 Inspired O2 21 06/22/16 20:03 Tidal Volume NA 06/22/16 20:03 PEEP NA 06/22/16 20:03 Pressure (ins/psv/peep) NA 06/22/16 20:03 Critical Value RPINEIRA 06/22/16 20:03 Sodium 133 mEq/L (136-145) L 07/02/16 06:40 Potassium 3.3 mEq/L (3.5-5.1) L 07/02/16 06:40 Chloride 103 mEq/L (98-107) 07/02/16 06:40 Carbon Dioxide 25.9 mEq/L (21.0-31.0) 07/02/16 06:40 Anion Gap 7.4 (7.0-16.0) 07/02/16 06:40 BUN 58 mg/dL (7-25) H 07/02/16 06:40 Creatinine 2.7 mg/dL (0.7-1.3) H 07/02/16 06:40 Est GFR ( Amer) 32.5 ml/min (>90) 07/02/16 06:40 Est GFR (Non-Af Amer) 26.8 ml/min 07/02/16 06:40 BUN/Creatinine Ratio 21.5 07/02/16 06:40 Glucose 101 mg/dL (70-105) 07/02/16 06:40 Calcium 9.6 mg/dL (8.6-10.3) 07/02/16 06:40 Phosphorus 4.1 mg/dL (2.5-5.0) 07/02/16 06:40 Magnesium 2.0 mg/dL (1.9-2.7) 07/02/16 06:40 Iron 42 ug/dL (38-169) 06/28/16 04:38 TIBC 269 ug/dL (250-450) 06/28/16 04:38 Iron Saturation 16 % (15-55) 06/28/16 04:38 Unsaturated IBC 227 ug/dL (111-343) 06/28/16 04:38 Ferritin 150 ng/mL (30-400) 06/26/16 08:30 Total Bilirubin 4.0 mg/dL (0.3-1.0) H 07/01/16 06:57 Direct Bilirubin 0.70 mg/dL (0.0-0.2) H 06/28/16 04:38 GGTP 14 IU/L (0-65) 06/28/16 04:38 AST 64 U/L (13-39) H 07/01/16 06:57 ALT 16 U/L (7-52) 07/01/16 06:57 Alkaline Phosphatase 94 U/L (34-104) 07/01/16 06:57 Ammonia 105 umol/L (16-53) H 07/02/16 06:40 Troponin I < 0.01 ng/mL (0.01-0.05) L 06/22/16 19:33 B-Natriuretic Peptide 668.0 pg/mL (5.0-100.0) H 06/22/16 19:33 Total Protein 7.5 gm/dL (6.0-8.3) 07/01/16 06:57 Albumin 2.8 gm/dL (4.2-5.5) L 07/01/16 06:57 Globulin 4.7 gm/dL 07/01/16 06:57 Albumin/Globulin Ratio 0.6 (1.0-1.8) L 07/01/16 06:57 Amylase 28 U/L (29-103) L 07/02/16 06:40 Lipase 31 U/L (11-82) 07/02/16 06:40 Urine Source CLEAN C 06/29/16 05:55 Urine Color YELLOW 06/29/16 05:55 Urine Clarity HAZY (CLEAR) 06/29/16 05:55 Urine pH 5.5 06/29/16 05:55 Ur Specific [place] 1.015 (1.005-1.030) 06/29/16 05:55 Urine Protein 30 mg/dL (NEGATIVE) H 06/29/16 05:55 Urine Glucose (UA) NEGATIVE mg/dL (NEGATIVE) 06/29/16 05:55 Urine Ketones NEGATIVE mg/dL (NEGATIVE) 06/29/16 05:55 Urine Blood NEGATIVE (NEGATIVE) 06/29/16 05:55 Urine Nitrate NEGATIVE (NEGATIVE) 06/29/16 05:55 Urine Bilirubin NEGATIVE (NEGATIVE) 06/29/16 05:55 Urine Urobilinogen 0.2 E.U./dL (0.2 - 1.0) 06/29/16 05:55 Ur Leukocyte Esterase TRACE (NEGATIVE) H 06/29/16 05:55 Urine RBC 0-2 /hpf (0-5) H 06/29/16 05:55 Urine WBC 6-10 /hpf (0-5) H 06/29/16 05:55 Ur Epithelial Cells FEW /lpf (FEW) 06/29/16 05:55 Urine Bacteria MANY /hpf (NONE SEEN) 06/29/16 05:55 Stool Occult Blood POSITIVE (NEGATIVE) 06/24/16 16:00 Random Vancomycin 13.4 ug/mL (5.0-40.0) 06/28/16 04:38 RPR NONREACTIVE (NONREACTIVE) 06/22/16 19:33 Hepatitis A IgM Ab Negative (Negative) 06/29/16 05:49 Hep Bs Antigen Negative (Negative) 06/29/16 05:49 Hep B Core IgM Ab Negative (Negative) 06/29/16 05:49 Hepatitis C Antibody >11.0 s/co ratio (0.0-0.9) H 06/29/16 05:49 Blood Type A POSITIVE 06/28/16 04:38 Antibody Screen NEGATIVE 06/28/16 04:38 Crossmatch See Detail 06/28/16 04:38 - Physical Exam Vitals and I&O: Vital Signs Temp 98.7 F 07/02/16 07:49 Pulse 121 07/02/16 07:49 Resp 20 07/02/16 07:49 BP 118/61 07/02/16 07:49 Pulse Ox 100 07/02/16 07:49 Active Medications: Current Medications Acetaminophen (Tylenol) 325 mg PO Q6HR PRN PRN Reason: Mild Pain or Fever >101 Stop: 08/22/16 20:30 Albuterol/Ipratropium (Duoneb Neb) 3 ml HHN Q2HR PRN PRN Reason: Shortness of Breath or Wheeze Cholecalciferol (Vitamin D3) 2,000 iu PO DAILY [facility] Stop: 08/23/16 08:59 Last Admin: 07/02/16 08:38 Dose: 2,000 iu Diphenhydramine HCl (Benadryl 50 Mg/Ml) 50 mg IM Q8HR PRN PRN Reason: Agitation Stop: 08/25/16 12:10 Docusate Sodium (Colace) 100 mg PO BID [facility] Stop: 08/22/16 16:59 Last Admin: 07/02/16 08:38 Dose: 100 mg Haloperidol Lactate (Haldol) 5 mg IM Q8HR PRN PRN Reason: Agitation Stop: 08/25/16 12:10 Lactulose (Cephulac) 30 gm PO TID [facility] Stop: 08/25/16 13:59 Last Admin: 07/02/16 13:39 Dose: 30 gm Levothyroxine Sodium (Synthroid) 0.05 mg PO QDAC [facility] Stop: 08/23/16 07:29 Last Admin: 07/02/16 07:17 Dose: 0.05 mg Lorazepam (Ativan) 1 mg IM Q4HR PRN; Protocol PRN Reason: Agitation Stop: 08/25/16 10:37 Last Admin: 06/26/16 14:01 Dose: 1 mg Morphine Sulfate (Morphine) 1 mg IV Q4H PRN PRN Reason: SEVERE PAIN Stop: 08/22/16 04:40 Last Admin: 07/01/16 08:53 Dose: 1 mg Ondansetron HCl (Zofran Odt) 4 mg PO Q6HR PRN PRN Reason: Nausea / Vomiting Stop: 08/22/16 20:30 Pantoprazole Sodium (Protonix) 40 mg PO DAILY [facility] Stop: 08/23/16 08:59 Last Admin: 07/02/16 08:38 Dose: 40 mg Potassium Chloride (Klor-Con) 20 meq PO X1 ONE Stop: 07/02/16 13:16 Quetiapine Fumarate (Seroquel) 100 mg PO TID [facility] PRN Reason: Protocol Stop: 08/26/16 08:59 Last Admin: 07/02/16 13:40 Dose: Not Given Vitamin B Complex/Vit C/Folic Acid (Vitamin B Complex W/Vitamin C) 1 tab PO DAILY [facility] Stop: 08/23/16 08:59 Last Admin: 07/02/16 08:37 Dose: 1 tab Assessment/Plan - Problem List Patient Problems: All Active Problems MEDICAL EVALUATION PER DR FRY (Acute)
--- NOTE | 2016-07-02 14:47 | Diagnostic Imaging Report ---
Vascular catheter placement (intraoperative fluoroscopic images and services) HISTORY: Vascular catheter placement Intraoperative fluoroscopic images and services were provided for facilitation of a vascular catheter placement. 34 seconds fluoroscopy time was utilized.
--- NOTE | 2016-07-02 21:02 | General Progress Note ---
Subjective - Review of Systems Service Date: 07/02/16 Subjective: EVENTS NOTED. MORE ALERT. Objective - Results Result Diagrams: 07/02/16 06:40 07/02/16 06:40 Recent Labs: Laboratory Last Values WBC 5.0 Th/cmm (4.8-10.8) D 07/02/16 06:40 RBC 3.24 Mil/cmm (4.30-5.70) L 07/02/16 06:40 Hgb 9.6 gm/dL (13.2-17.3) L 07/02/16 06:40 Hct 28.8 % (39.0-49.0) L 07/02/16 06:40 MCV 88.8 fl (80-99) 07/02/16 06:40 MCH 29.7 pg (26.0-30.0) 07/02/16 06:40 MCHC Differential 33.5 pg (28.0-36.0) 07/02/16 06:40 RDW 16.1 % (11.5-20.0) 07/02/16 06:40 Plt Count 86 Th/cmm (150-400) L 07/02/16 06:40 MPV 9.8 fl 07/02/16 06:40 Neutrophils % 59.6 % (40.0-80.0) 07/01/16 06:57 Band Neutrophils % 1 % (0-10) 07/02/16 06:40 Lymphocytes % 14.0 % (20.0-50.0) L 07/01/16 06:57 Monocytes % 11.7 % (2.0-10.0) H 07/01/16 06:57 Eosinophils % 14.7 % (0.0-5.0) H 07/01/16 06:57 Basophils % 0.0 % (0.0-2.0) 07/01/16 06:57 Neutrophils (Manual) 57 % (40-80) 07/02/16 06:40 Lymphocytes 13 % (20-50) L 07/02/16 06:40 Monocytes 9 % (2-10) 07/02/16 06:40 Eosinophils 20 % (0-5) H 07/02/16 06:40 Basophils 3 % (0-3) 06/29/16 05:49 Hypochromia 1+ 06/22/16 19:33 Platelet Estimate DECREASED PLATELETS (NORMAL) 07/02/16 06:40 Platelet Morphology NORMAL (NORMAL) 07/02/16 06:40 Anisocytosis 1+ 07/02/16 06:40 RBC Morph Micro Appear ABNORMAL (NORMAL) 07/02/16 06:40 PT 12.7 SECONDS (9.5-11.5) H 07/01/16 06:57 INR 1.26 (0.5-1.4) 07/01/16 06:57 PTT (Actin FS) 28.3 SECONDS (26.0-38.0) 06/28/16 04:38 Specimen Source art 06/22/16 20:03 Sample Site Right Radial 06/22/16 20:03 pH 7.49 (7.35-7.45) H 06/22/16 20:03 pCO2 34.0 mmHg (35.0-45.0) L 06/22/16 20:03 pO2 97.0 mmHg (80.0-100.0) 06/22/16 20:03 HCO3 25.9 mmol/L (20.0-26.0) 06/22/16 20:03 Base Excess 2.8 mmol/L (-3.0-3.0) 06/22/16 20:03 O2 Saturation 98.0 % (92.0-100.0) 06/22/16 20:03 Estuardo Test P 06/22/16 20:03 Vent Rate NA 06/22/16 20:03 Inspired O2 21 06/22/16 20:03 Tidal Volume NA 06/22/16 20:03 PEEP NA 06/22/16 20:03 Pressure (ins/psv/peep) NA 06/22/16 20:03 Critical Value RPINEIRA 06/22/16 20:03 Sodium 133 mEq/L (136-145) L 07/02/16 06:40 Potassium 3.3 mEq/L (3.5-5.1) L 07/02/16 06:40 Chloride 103 mEq/L (98-107) 07/02/16 06:40 Carbon Dioxide 25.9 mEq/L (21.0-31.0) 07/02/16 06:40 Anion Gap 7.4 (7.0-16.0) 07/02/16 06:40 BUN 58 mg/dL (7-25) H 07/02/16 06:40 Creatinine 2.7 mg/dL (0.7-1.3) H 07/02/16 06:40 Est GFR ( Amer) 32.5 ml/min (>90) 07/02/16 06:40 Est GFR (Non-Af Amer) 26.8 ml/min 07/02/16 06:40 BUN/Creatinine Ratio 21.5 07/02/16 06:40 Glucose 101 mg/dL (70-105) 07/02/16 06:40 Calcium 9.6 mg/dL (8.6-10.3) 07/02/16 06:40 Phosphorus 4.1 mg/dL (2.5-5.0) 07/02/16 06:40 Magnesium 2.0 mg/dL (1.9-2.7) 07/02/16 06:40 Iron 42 ug/dL (38-169) 06/28/16 04:38 TIBC 269 ug/dL (250-450) 06/28/16 04:38 Iron Saturation 16 % (15-55) 06/28/16 04:38 Unsaturated IBC 227 ug/dL (111-343) 06/28/16 04:38 Ferritin 150 ng/mL (30-400) 06/26/16 08:30 Total Bilirubin 4.0 mg/dL (0.3-1.0) H 07/01/16 06:57 Direct Bilirubin 0.70 mg/dL (0.0-0.2) H 06/28/16 04:38 GGTP 14 IU/L (0-65) 06/28/16 04:38 AST 64 U/L (13-39) H 07/01/16 06:57 ALT 16 U/L (7-52) 07/01/16 06:57 Alkaline Phosphatase 94 U/L (34-104) 07/01/16 06:57 Ammonia 105 umol/L (16-53) H 07/02/16 06:40 Troponin I < 0.01 ng/mL (0.01-0.05) L 06/22/16 19:33 B-Natriuretic Peptide 668.0 pg/mL (5.0-100.0) H 06/22/16 19:33 Total Protein 7.5 gm/dL (6.0-8.3) 07/01/16 06:57 Albumin 2.8 gm/dL (4.2-5.5) L 07/01/16 06:57 Globulin 4.7 gm/dL 07/01/16 06:57 Albumin/Globulin Ratio 0.6 (1.0-1.8) L 07/01/16 06:57 Amylase 28 U/L (29-103) L 07/02/16 06:40 Lipase 31 U/L (11-82) 07/02/16 06:40 Urine Source CLEAN C 06/29/16 05:55 Urine Color YELLOW 06/29/16 05:55 Urine Clarity HAZY (CLEAR) 06/29/16 05:55 Urine pH 5.5 06/29/16 05:55 Ur Specific [place] 1.015 (1.005-1.030) 06/29/16 05:55 Urine Protein 30 mg/dL (NEGATIVE) H 06/29/16 05:55 Urine Glucose (UA) NEGATIVE mg/dL (NEGATIVE) 06/29/16 05:55 Urine Ketones NEGATIVE mg/dL (NEGATIVE) 06/29/16 05:55 Urine Blood NEGATIVE (NEGATIVE) 06/29/16 05:55 Urine Nitrate NEGATIVE (NEGATIVE) 06/29/16 05:55 Urine Bilirubin NEGATIVE (NEGATIVE) 06/29/16 05:55 Urine Urobilinogen 0.2 E.U./dL (0.2 - 1.0) 06/29/16 05:55 Ur Leukocyte Esterase TRACE (NEGATIVE) H 06/29/16 05:55 Urine RBC 0-2 /hpf (0-5) H 06/29/16 05:55 Urine WBC 6-10 /hpf (0-5) H 06/29/16 05:55 Ur Epithelial Cells FEW /lpf (FEW) 06/29/16 05:55 Urine Bacteria MANY /hpf (NONE SEEN) 06/29/16 05:55 Stool Occult Blood POSITIVE (NEGATIVE) 06/24/16 16:00 Random Vancomycin 13.4 ug/mL (5.0-40.0) 06/28/16 04:38 RPR NONREACTIVE (NONREACTIVE) 06/22/16 19:33 Hepatitis A IgM Ab Negative (Negative) 06/29/16 05:49 Hep Bs Antigen Negative (Negative) 06/29/16 05:49 Hep B Core IgM Ab Negative (Negative) 06/29/16 05:49 Hepatitis C Antibody >11.0 s/co ratio (0.0-0.9) H 06/29/16 05:49 Blood Type A POSITIVE 06/28/16 04:38 Antibody Screen NEGATIVE 06/28/16 04:38 Crossmatch See Detail 06/28/16 04:38 - Physical Exam Vitals and I&O: Vital Signs Temp 98.2 F 07/02/16 20:00 Pulse 115 07/02/16 20:00 Resp 19 07/02/16 20:00 BP 101/65 07/02/16 20:00 Pulse Ox 98 07/02/16 20:00 Intake & Output 07/02/16 07/02/16 07/03/16 06:59 18:59 06:59 Intake Total 500 Balance 500 Intake: Oral 500 Other: # Voids 2 Active Medications: Current Medications Acetaminophen (Tylenol) 325 mg PO Q6HR PRN PRN Reason: Mild Pain or Fever >101 Stop: 08/22/16 20:30 Albuterol/Ipratropium (Duoneb Neb) 3 ml HHN Q2HR PRN PRN Reason: Shortness of Breath or Wheeze Cholecalciferol (Vitamin D3) 2,000 iu PO DAILY [facility] Stop: 08/23/16 08:59 Last Admin: 07/02/16 08:38 Dose: 2,000 iu Diphenhydramine HCl (Benadryl 50 Mg/Ml) 50 mg IM Q8HR PRN PRN Reason: Agitation Stop: 08/25/16 12:10 Docusate Sodium (Colace) 100 mg PO BID [facility] Stop: 08/22/16 16:59 Last Admin: 07/02/16 17:36 Dose: 100 mg Haloperidol Lactate (Haldol) 5 mg IM Q8HR PRN PRN Reason: Agitation Stop: 08/25/16 12:10 Lactulose (Cephulac) 30 gm PO TID [facility] Stop: 08/25/16 13:59 Last Admin: 07/02/16 13:39 Dose: 30 gm Levothyroxine Sodium (Synthroid) 0.05 mg PO QDAC [facility] Stop: 08/23/16 07:29 Last Admin: 07/02/16 07:17 Dose: 0.05 mg Lorazepam (Ativan) 1 mg IM Q4HR PRN; Protocol PRN Reason: Agitation Stop: 08/25/16 10:37 Last Admin: 06/26/16 14:01 Dose: 1 mg Miscellaneous (Clinical Monitoring) 1 ea MC PRN PRN PRN Reason: RENAL DOSING Stop: 08/31/16 16:27 Morphine Sulfate (Morphine) 1 mg IV Q4H PRN PRN Reason: SEVERE PAIN Stop: 08/22/16 04:40 Last Admin: 07/01/16 08:53 Dose: 1 mg Ondansetron HCl (Zofran Odt) 4 mg PO Q6HR PRN PRN Reason: Nausea / Vomiting Stop: 08/22/16 20:30 Pantoprazole Sodium (Protonix) 40 mg PO DAILY [facility] Stop: 08/23/16 08:59 Last Admin: 07/02/16 08:38 Dose: 40 mg Quetiapine Fumarate (Seroquel) 100 mg PO TID [facility] PRN Reason: Protocol Stop: 08/26/16 08:59 Last Admin: 07/02/16 13:40 Dose: Not Given Vitamin B Complex/Vit C/Folic Acid (Vitamin B Complex W/Vitamin C) 1 tab PO DAILY [facility] Stop: 08/23/16 08:59 Last Admin: 07/02/16 08:37 Dose: 1 tab General: Alert, No acute distress HEENT: Atraumatic Neck: Supple Cardiovascular: Regular rate Lungs: Clear to auscultation Abdomen: Bowel sounds, Soft, no Tender - Procedures Procedures: Procedures Procedure Code Date FLUOROSCOPY OF SUP VENA CAVA USING OT CONTRAST, GUIDANCE [id number] 06/22/16 INSERTION OF INFUSION DEV INTO SUP VENA CAVA, PERC APPROACH 64BA34A 06/22/16 PLACE CATHETER IN [place] [address] 06/22/16 Assessment/Plan - Problem List Patient Problems: All Active Problems MEDICAL EVALUATION PER DR FRY (Acute) - Assessment Assessment: 1. ANEMIA AND OCCULT GI BLEED. 2. ESRD - HD DEP; PULLED OUT ACCESS LINE AND NOW REPLACED. 3. MORBID OBESITY. 4. ALOC WITH ELEVATED NH3 LEVEL - R/O HEP ENCEPH. 5. MILDLY ELEVATED LFT'S - R/O CHRONIC LIVER DISEASE AND CIRRHOSIS. - Plan Plan: 1. F/U LIVER LABS. 2. OFFERED ABD US - PATIENT REFUSED. 3. EGD AND COLONOSCOPY TOMORROW - WILL CONTINUE BOWEL PREP. 4. PSYCH F/U. 5. PROTONIX. 6. MONITOR HGB; TRANSFUSE PRN. 7. LACTULOSE AND RIFAXIMIN.
--- NOTE | 2016-07-02 21:11 | Infectious Disease Prog Note ---
Infectious Disease Subjective - Review of Systems Service Date: 07/02/16 Subjective: No change. Permacath was placed in left subclian vein. Infectious Disease Objective - Results Result Diagrams: 07/02/16 06:40 07/02/16 06:40 Recent Labs: Laboratory Last Values WBC 5.0 Th/cmm (4.8-10.8) D 07/02/16 06:40 RBC 3.24 Mil/cmm (4.30-5.70) L 07/02/16 06:40 Hgb 9.6 gm/dL (13.2-17.3) L 07/02/16 06:40 Hct 28.8 % (39.0-49.0) L 07/02/16 06:40 MCV 88.8 fl (80-99) 07/02/16 06:40 MCH 29.7 pg (26.0-30.0) 07/02/16 06:40 MCHC Differential 33.5 pg (28.0-36.0) 07/02/16 06:40 RDW 16.1 % (11.5-20.0) 07/02/16 06:40 Plt Count 86 Th/cmm (150-400) L 07/02/16 06:40 MPV 9.8 fl 07/02/16 06:40 Neutrophils % 59.6 % (40.0-80.0) 07/01/16 06:57 Band Neutrophils % 1 % (0-10) 07/02/16 06:40 Lymphocytes % 14.0 % (20.0-50.0) L 07/01/16 06:57 Monocytes % 11.7 % (2.0-10.0) H 07/01/16 06:57 Eosinophils % 14.7 % (0.0-5.0) H 07/01/16 06:57 Basophils % 0.0 % (0.0-2.0) 07/01/16 06:57 Neutrophils (Manual) 57 % (40-80) 07/02/16 06:40 Lymphocytes 13 % (20-50) L 07/02/16 06:40 Monocytes 9 % (2-10) 07/02/16 06:40 Eosinophils 20 % (0-5) H 07/02/16 06:40 Basophils 3 % (0-3) 06/29/16 05:49 Hypochromia 1+ 06/22/16 19:33 Platelet Estimate DECREASED PLATELETS (NORMAL) 07/02/16 06:40 Platelet Morphology NORMAL (NORMAL) 07/02/16 06:40 Anisocytosis 1+ 07/02/16 06:40 RBC Morph Micro Appear ABNORMAL (NORMAL) 07/02/16 06:40 PT 12.7 SECONDS (9.5-11.5) H 07/01/16 06:57 INR 1.26 (0.5-1.4) 07/01/16 06:57 PTT (Actin FS) 28.3 SECONDS (26.0-38.0) 06/28/16 04:38 Specimen Source art 06/22/16 20:03 Sample Site Right Radial 06/22/16 20:03 pH 7.49 (7.35-7.45) H 06/22/16 20:03 pCO2 34.0 mmHg (35.0-45.0) L 06/22/16 20:03 pO2 97.0 mmHg (80.0-100.0) 06/22/16 20:03 HCO3 25.9 mmol/L (20.0-26.0) 06/22/16 20:03 Base Excess 2.8 mmol/L (-3.0-3.0) 06/22/16 20:03 O2 Saturation 98.0 % (92.0-100.0) 06/22/16 20:03 Estuardo Test P 06/22/16 20:03 Vent Rate NA 06/22/16 20:03 Inspired O2 21 06/22/16 20:03 Tidal Volume NA 06/22/16 20:03 PEEP NA 06/22/16 20:03 Pressure (ins/psv/peep) NA 06/22/16 20:03 Critical Value RPINEIRA 06/22/16 20:03 Sodium 133 mEq/L (136-145) L 07/02/16 06:40 Potassium 3.3 mEq/L (3.5-5.1) L 07/02/16 06:40 Chloride 103 mEq/L (98-107) 07/02/16 06:40 Carbon Dioxide 25.9 mEq/L (21.0-31.0) 07/02/16 06:40 Anion Gap 7.4 (7.0-16.0) 07/02/16 06:40 BUN 58 mg/dL (7-25) H 07/02/16 06:40 Creatinine 2.7 mg/dL (0.7-1.3) H 07/02/16 06:40 Est GFR ( Amer) 32.5 ml/min (>90) 07/02/16 06:40 Est GFR (Non-Af Amer) 26.8 ml/min 07/02/16 06:40 BUN/Creatinine Ratio 21.5 07/02/16 06:40 Glucose 101 mg/dL (70-105) 07/02/16 06:40 Calcium 9.6 mg/dL (8.6-10.3) 07/02/16 06:40 Phosphorus 4.1 mg/dL (2.5-5.0) 07/02/16 06:40 Magnesium 2.0 mg/dL (1.9-2.7) 07/02/16 06:40 Iron 42 ug/dL (38-169) 06/28/16 04:38 TIBC 269 ug/dL (250-450) 06/28/16 04:38 Iron Saturation 16 % (15-55) 06/28/16 04:38 Unsaturated IBC 227 ug/dL (111-343) 06/28/16 04:38 Ferritin 150 ng/mL (30-400) 06/26/16 08:30 Total Bilirubin 4.0 mg/dL (0.3-1.0) H 07/01/16 06:57 Direct Bilirubin 0.70 mg/dL (0.0-0.2) H 06/28/16 04:38 GGTP 14 IU/L (0-65) 06/28/16 04:38 AST 64 U/L (13-39) H 07/01/16 06:57 ALT 16 U/L (7-52) 07/01/16 06:57 Alkaline Phosphatase 94 U/L (34-104) 07/01/16 06:57 Ammonia 105 umol/L (16-53) H 07/02/16 06:40 Troponin I < 0.01 ng/mL (0.01-0.05) L 06/22/16 19:33 B-Natriuretic Peptide 668.0 pg/mL (5.0-100.0) H 06/22/16 19:33 Total Protein 7.5 gm/dL (6.0-8.3) 07/01/16 06:57 Albumin 2.8 gm/dL (4.2-5.5) L 07/01/16 06:57 Globulin 4.7 gm/dL 07/01/16 06:57 Albumin/Globulin Ratio 0.6 (1.0-1.8) L 07/01/16 06:57 Amylase 28 U/L (29-103) L 07/02/16 06:40 Lipase 31 U/L (11-82) 07/02/16 06:40 Urine Source CLEAN C 06/29/16 05:55 Urine Color YELLOW 06/29/16 05:55 Urine Clarity HAZY (CLEAR) 06/29/16 05:55 Urine pH 5.5 06/29/16 05:55 Ur Specific [place] 1.015 (1.005-1.030) 06/29/16 05:55 Urine Protein 30 mg/dL (NEGATIVE) H 06/29/16 05:55 Urine Glucose (UA) NEGATIVE mg/dL (NEGATIVE) 06/29/16 05:55 Urine Ketones NEGATIVE mg/dL (NEGATIVE) 06/29/16 05:55 Urine Blood NEGATIVE (NEGATIVE) 06/29/16 05:55 Urine Nitrate NEGATIVE (NEGATIVE) 06/29/16 05:55 Urine Bilirubin NEGATIVE (NEGATIVE) 06/29/16 05:55 Urine Urobilinogen 0.2 E.U./dL (0.2 - 1.0) 06/29/16 05:55 Ur Leukocyte Esterase TRACE (NEGATIVE) H 06/29/16 05:55 Urine RBC 0-2 /hpf (0-5) H 06/29/16 05:55 Urine WBC 6-10 /hpf (0-5) H 06/29/16 05:55 Ur Epithelial Cells FEW /lpf (FEW) 06/29/16 05:55 Urine Bacteria MANY /hpf (NONE SEEN) 06/29/16 05:55 Stool Occult Blood POSITIVE (NEGATIVE) 06/24/16 16:00 Random Vancomycin 13.4 ug/mL (5.0-40.0) 06/28/16 04:38 RPR NONREACTIVE (NONREACTIVE) 06/22/16 19:33 Hepatitis A IgM Ab Negative (Negative) 06/29/16 05:49 Hep Bs Antigen Negative (Negative) 06/29/16 05:49 Hep B Core IgM Ab Negative (Negative) 06/29/16 05:49 Hepatitis C Antibody >11.0 s/co ratio (0.0-0.9) H 06/29/16 05:49 Blood Type A POSITIVE 06/28/16 04:38 Antibody Screen NEGATIVE 06/28/16 04:38 Crossmatch See Detail 06/28/16 04:38 - Physical Exam Vitals and I&O: Vital Signs Temp 98.2 F 07/02/16 20:00 Pulse 115 07/02/16 20:00 Resp 19 07/02/16 20:00 BP 101/65 07/02/16 20:00 Pulse Ox 98 07/02/16 20:00 Intake & Output 07/02/16 07/02/16 07/03/16 06:59 18:59 06:59 Intake Total 500 Balance 500 Intake: Oral 500 Other: # Voids 2 Active Medications: Current Medications Acetaminophen (Tylenol) 325 mg PO Q6HR PRN PRN Reason: Mild Pain or Fever >101 Stop: 08/22/16 20:30 Albuterol/Ipratropium (Duoneb Neb) 3 ml HHN Q2HR PRN PRN Reason: Shortness of Breath or Wheeze Cholecalciferol (Vitamin D3) 2,000 iu PO DAILY [facility] Stop: 08/23/16 08:59 Last Admin: 07/02/16 08:38 Dose: 2,000 iu Diphenhydramine HCl (Benadryl 50 Mg/Ml) 50 mg IM Q8HR PRN PRN Reason: Agitation Stop: 08/25/16 12:10 Docusate Sodium (Colace) 100 mg PO BID [facility] Stop: 08/22/16 16:59 Last Admin: 07/02/16 17:36 Dose: 100 mg Haloperidol Lactate (Haldol) 5 mg IM Q8HR PRN PRN Reason: Agitation Stop: 08/25/16 12:10 Lactulose (Cephulac) 30 gm PO TID [facility] Stop: 08/25/16 13:59 Last Admin: 07/02/16 13:39 Dose: 30 gm Levothyroxine Sodium (Synthroid) 0.05 mg PO QDAC [facility] Stop: 08/23/16 07:29 Last Admin: 07/02/16 07:17 Dose: 0.05 mg Lorazepam (Ativan) 1 mg IM Q4HR PRN; Protocol PRN Reason: Agitation Stop: 08/25/16 10:37 Last Admin: 06/26/16 14:01 Dose: 1 mg Miscellaneous (Clinical Monitoring) 1 ea MC PRN PRN PRN Reason: RENAL DOSING Stop: 08/31/16 16:27 Morphine Sulfate (Morphine) 1 mg IV Q4H PRN PRN Reason: SEVERE PAIN Stop: 08/22/16 04:40 Last Admin: 07/01/16 08:53 Dose: 1 mg Ondansetron HCl (Zofran Odt) 4 mg PO Q6HR PRN PRN Reason: Nausea / Vomiting Stop: 08/22/16 20:30 Pantoprazole Sodium (Protonix) 40 mg PO DAILY [facility] Stop: 08/23/16 08:59 Last Admin: 07/02/16 08:38 Dose: 40 mg Quetiapine Fumarate (Seroquel) 100 mg PO TID [facility] PRN Reason: Protocol Stop: 08/26/16 08:59 Last Admin: 07/02/16 13:40 Dose: Not Given Vitamin B Complex/Vit C/Folic Acid (Vitamin B Complex W/Vitamin C) 1 tab PO DAILY [facility] Stop: 08/23/16 08:59 Last Admin: 07/02/16 08:37 Dose: 1 tab General: no acute distress, well nourished HEENT: atraumatic, normocephalic, PERRLA Neck: supple, no thyromegaly Cardiovascular: S1S2, regular Lungs: clear to auscultation bilaterally, clear to percussion Abdomen: soft, no tender, no distended Extremities: other (swollen legs), no cyanosis, no clubbing Neurological: awake, alert, oriented, CN 2-12 intact Skin: intact - Procedures Procedures: Procedures Procedure Code Date FLUOROSCOPY OF SUP VENA CAVA USING OT CONTRAST, GUIDANCE [id number] 06/22/16 INSERTION OF INFUSION DEV INTO SUP VENA CAVA, PERC APPROACH [id number] 06/22/[address] CATHETER [place] [address] 06/22/16 Infectious Disease Assmt/Plan - Problem List Patient Problems: All Active Problems MEDICAL EVALUATION PER DR FRY (Acute) - Assessment Assessment: 1. Cellulitis of legs. improved. treated. 2. Lymphedema of legs. 3. CKD 5 on HD. 4. Morbid obesity. - Plan Plan: Continue the skin care.
--- NOTE | 2016-07-03 00:41 | Progress Notes ---
SUBJECTIVE: The patient is lying in a bed. The patient stated he is feeling better and stating that he is ready to go back to [facility] in [place], but they are still planning to do a colonoscopy and EGD for him, which is scheduled for tomorrow. OBJECTIVE: HEENT: Head is atraumatic and normocephalic. Eyes are clear with clear conjunctivae. Ears: External ears are normal. NECK: Negative for JVD. CARDIOVASCULAR: S1 and S2 heard, regular rate and rhythm. PULMONARY: Clear to auscultation. ABDOMEN: Soft and nontender. Positive bowel sounds. The patient is obese. GENITOURINARY: The patient denies any pain or discomfort. No hematuria. MUSCULOSKELETAL: The patient is a bedbound. Bilateral lower extremities are swollen. NEUROLOGIC: Awake, alert, oriented, able to verbalize the patient's needs. ASSESSMENT: 1. ESRD with dialysis every Saturday, Saturday and Saturday. 2. Anemia. 3. Cellulitis, resolved. 4. Hypothyroidism. 5. Obesity. 6. Schizophrenia. 7. Vitamin D deficiency. PLAN: The patient will be having EGD and colonoscopy for tomorrow rule out bleeding versus chronic anemia. We will continue with a psych consult and if the patient result for surgery will be negative, then the patient can be discharged back to [facility] in [place]. JOB# [id number]
[2016-07-03] MEDS: Morphine Sulfate 2 mg/mL 1mL Syr IV PRN (02:40)
--- NOTE | 2016-07-03 03:40 | Progress Notes ---
Case was discussed with staff of the patient, reviewed records. The patient has been a little bit calmer. He is on Seroquel 100 mg 3 times a day. He is sleeping better, eating better. He is on dialysis. No side effects with the medication, no sedation, no nausea. I would recommend to continue Seroquel. Thank you very much for allowing me to participate in the care of this most interesting gentleman. JOB# [id number]
[2016-07-03] MEDS: Levothyroxine 0.05 Mg Tab PO SCH (06:59)
[2016-07-03 07:35] LABS: HEMATOCRIT 27.8 % (39.0-49.0); HEMOGLOBIN 9.3 gm/dL (13.2-17.3); MEAN CELL VOLUME 88.4 fl (80-99); MEAN CORPUSCULAR HEMOGLOBIN 29.6 pg (26.0-30.0); MEAN CORPUSCULAR HGB CONC 33.5 pg (28.0-36.0); MEAN PLATELET VOLUME 8.2 fl; RED BLOOD COUNT 3.15 Mil/cmm (4.30-5.70); RED CELL DISTRIBUTION WIDTH 16.1 % (11.5-20.0); WHITE BLOOD COUNT 4.7 Th/cmm (4.8-10.8)
[2016-07-03 07:56] LABS: PLATELET COUNT 133 Th/cmm (150-400)
[2016-07-03 08:01] LABS: ANION GAP 4.4 (7.0-16.0); BUN/CREATININE RATIO 18.6; CALCIUM SERUM 9.4 mg/dL (8.6-10.3); CARBON DIOXIDE 25.7 mEq/L (21.0-31.0); CREATININE - SERUM 2.2 mg/dL (0.7-1.3); MAGNESIUM 1.8 mg/dL (1.9-2.7); POTASSIUM SERUM 3.1 mEq/L (3.5-5.1)
[2016-07-03] MEDS: Lactulose 10 Gm/15 mL 30mL UDC PO SCH ×3 (08:58→20:00)
[2016-07-03] MEDS: Pantoprazole 40 mg EC Tab PO SCH (08:58)
--- NOTE | 2016-07-03 09:45 | General Progress Note ---
Subjective - Review of Systems Service Date: 07/03/16 Events since last encounter: vein mapping reordered for fistula vs shunt Objective - Results Result Diagrams: 07/03/16 05:30 07/03/16 07:30 Recent Labs: Laboratory Last Values WBC 4.7 Th/cmm (4.8-10.8) L 07/03/16 05:30 RBC 3.15 Mil/cmm (4.30-5.70) L 07/03/16 05:30 Hgb 9.3 gm/dL (13.2-17.3) L 07/03/16 05:30 Hct 27.8 % (39.0-49.0) L 07/03/16 05:30 MCV 88.4 fl (80-99) 07/03/16 05:30 MCH 29.6 pg (26.0-30.0) 07/03/16 05:30 MCHC Differential 33.5 pg (28.0-36.0) 07/03/16 05:30 RDW 16.1 % (11.5-20.0) 07/03/16 05:30 Plt Count 133 Th/cmm (150-400) L D 07/03/16 05:30 MPV 8.2 fl 07/03/16 05:30 Neutrophils % 59.6 % (40.0-80.0) 07/01/16 06:57 Band Neutrophils % 1 % (0-10) 07/02/16 06:40 Lymphocytes % 14.0 % (20.0-50.0) L 07/01/16 06:57 Monocytes % 11.7 % (2.0-10.0) H 07/01/16 06:57 Eosinophils % 14.7 % (0.0-5.0) H 07/01/16 06:57 Basophils % 0.0 % (0.0-2.0) 07/01/16 06:57 Neutrophils (Manual) 57 % (40-80) 07/02/16 06:40 Lymphocytes 13 % (20-50) L 07/02/16 06:40 Monocytes 9 % (2-10) 07/02/16 06:40 Eosinophils 20 % (0-5) H 07/02/16 06:40 Basophils 3 % (0-3) 06/29/16 05:49 Hypochromia 1+ 06/22/16 19:33 Platelet Estimate DECREASED PLATELETS (NORMAL) 07/02/16 06:40 Platelet Morphology NORMAL (NORMAL) 07/02/16 06:40 Anisocytosis 1+ 07/02/16 06:40 RBC Morph Micro Appear ABNORMAL (NORMAL) 07/02/16 06:40 PT 12.7 SECONDS (9.5-11.5) H 07/01/16 06:57 INR 1.26 (0.5-1.4) 07/01/16 06:57 PTT (Actin FS) 28.3 SECONDS (26.0-38.0) 06/28/16 04:38 Specimen Source art 06/22/16 20:03 Sample Site Right Radial 06/22/16 20:03 pH 7.49 (7.35-7.45) H 06/22/16 20:03 pCO2 34.0 mmHg (35.0-45.0) L 06/22/16 20:03 pO2 97.0 mmHg (80.0-100.0) 06/22/16 20:03 HCO3 25.9 mmol/L (20.0-26.0) 06/22/16 20:03 Base Excess 2.8 mmol/L (-3.0-3.0) 06/22/16 20:03 O2 Saturation 98.0 % (92.0-100.0) 06/22/16 20:03 Estuardo Test P 06/22/16 20:03 Vent Rate NA 06/22/16 20:03 Inspired O2 21 06/22/16 20:03 Tidal Volume NA 06/22/16 20:03 PEEP NA 06/22/16 20:03 Pressure (ins/psv/peep) NA 06/22/16 20:03 Critical Value RPINEIRA 06/22/16 20:03 Sodium 131 mEq/L (136-145) L 07/03/16 07:30 Potassium 3.1 mEq/L (3.5-5.1) L 07/03/16 07:30 Chloride 104 mEq/L (98-107) 07/03/16 07:30 Carbon Dioxide 25.7 mEq/L (21.0-31.0) 07/03/16 07:30 Anion Gap 4.4 (7.0-16.0) L 07/03/16 07:30 BUN 41 mg/dL (7-25) H 07/03/16 07:30 Creatinine 2.2 mg/dL (0.7-1.3) H 07/03/16 07:30 Est GFR ( Amer) 41.1 ml/min (>90) 07/03/16 07:30 Est GFR (Non-Af Amer) 34.0 ml/min 07/03/16 07:30 BUN/Creatinine Ratio 18.6 07/03/16 07:30 Glucose 83 mg/dL (70-105) 07/03/16 07:30 Calcium 9.4 mg/dL (8.6-10.3) 07/03/16 07:30 Phosphorus 4.1 mg/dL (2.5-5.0) 07/02/16 06:40 Magnesium 1.8 mg/dL (1.9-2.7) L 07/03/16 07:30 Iron 42 ug/dL (38-169) 06/28/16 04:38 TIBC 269 ug/dL (250-450) 06/28/16 04:38 Iron Saturation 16 % (15-55) 06/28/16 04:38 Unsaturated IBC 227 ug/dL (111-343) 06/28/16 04:38 Ferritin 150 ng/mL (30-400) 06/26/16 08:30 Total Bilirubin 4.0 mg/dL (0.3-1.0) H 07/01/16 06:57 Direct Bilirubin 0.70 mg/dL (0.0-0.2) H 06/28/16 04:38 GGTP 14 IU/L (0-65) 06/28/16 04:38 AST 64 U/L (13-39) H 07/01/16 06:57 ALT 16 U/L (7-52) 07/01/16 06:57 Alkaline Phosphatase 94 U/L (34-104) 07/01/16 06:57 Ammonia 105 umol/L (16-53) H 07/02/16 06:40 Troponin I < 0.01 ng/mL (0.01-0.05) L 06/22/16 19:33 B-Natriuretic Peptide 668.0 pg/mL (5.0-100.0) H 06/22/16 19:33 Total Protein 7.5 gm/dL (6.0-8.3) 07/01/16 06:57 Albumin 2.8 gm/dL (4.2-5.5) L 07/01/16 06:57 Globulin 4.7 gm/dL 07/01/16 06:57 Albumin/Globulin Ratio 0.6 (1.0-1.8) L 07/01/16 06:57 Amylase 28 U/L (29-103) L 07/02/16 06:40 Lipase 31 U/L (11-82) 07/02/16 06:40 Urine Source CLEAN C 06/29/16 05:55 Urine Color YELLOW 06/29/16 05:55 Urine Clarity HAZY (CLEAR) 06/29/16 05:55 Urine pH 5.5 06/29/16 05:55 Ur Specific [place] 1.015 (1.005-1.030) 06/29/16 05:55 Urine Protein 30 mg/dL (NEGATIVE) H 06/29/16 05:55 Urine Glucose (UA) NEGATIVE mg/dL (NEGATIVE) 06/29/16 05:55 Urine Ketones NEGATIVE mg/dL (NEGATIVE) 06/29/16 05:55 Urine Blood NEGATIVE (NEGATIVE) 06/29/16 05:55 Urine Nitrate NEGATIVE (NEGATIVE) 06/29/16 05:55 Urine Bilirubin NEGATIVE (NEGATIVE) 06/29/16 05:55 Urine Urobilinogen 0.2 E.U./dL (0.2 - 1.0) 06/29/16 05:55 Ur Leukocyte Esterase TRACE (NEGATIVE) H 06/29/16 05:55 Urine RBC 0-2 /hpf (0-5) H 06/29/16 05:55 Urine WBC 6-10 /hpf (0-5) H 06/29/16 05:55 Ur Epithelial Cells FEW /lpf (FEW) 06/29/16 05:55 Urine Bacteria MANY /hpf (NONE SEEN) 06/29/16 05:55 Stool Occult Blood POSITIVE (NEGATIVE) 06/24/16 16:00 Random Vancomycin 13.4 ug/mL (5.0-40.0) 06/28/16 04:38 RPR NONREACTIVE (NONREACTIVE) 06/22/16 19:33 Hepatitis A IgM Ab Negative (Negative) 06/29/16 05:49 Hep Bs Antigen Negative (Negative) 06/29/16 05:49 Hep B Core IgM Ab Negative (Negative) 06/29/16 05:49 Hepatitis C Antibody >11.0 s/co ratio (0.0-0.9) H 06/29/16 05:49 Blood Type A POSITIVE 06/28/16 04:38 Antibody Screen NEGATIVE 06/28/16 04:38 Crossmatch See Detail 06/28/16 04:38 - Physical Exam Vitals and I&O: Vital Signs Temp 99.4 F 07/03/16 04:00 Pulse 98 07/03/16 04:00 Resp 19 07/03/16 04:00 BP 91/51 07/03/16 04:00 Pulse Ox 94 07/03/16 04:00 Intake & Output 07/02/16 07/03/16 07/03/16 18:59 06:59 18:59 Intake Total 500 300 Balance 500 300 Intake: Oral 500 300 Other: # Voids 2 3 # Bowel Movements 3 Active Medications: Current Medications Acetaminophen (Tylenol) 325 mg PO Q6HR PRN PRN Reason: Mild Pain or Fever >101 Stop: 08/22/16 20:30 Albuterol/Ipratropium (Duoneb Neb) 3 ml HHN Q2HR PRN PRN Reason: Shortness of Breath or Wheeze Cholecalciferol (Vitamin D3) 2,000 iu PO DAILY [facility] Stop: 08/23/16 08:59 Last Admin: 07/03/16 08:58 Dose: Not Given Diphenhydramine HCl (Benadryl 50 Mg/Ml) 50 mg IM Q8HR PRN PRN Reason: Agitation Stop: 08/25/16 12:10 Docusate Sodium (Colace) 100 mg PO BID [facility] Stop: 08/22/16 16:59 Last Admin: 07/03/16 08:58 Dose: Not Given Haloperidol Lactate (Haldol) 5 mg IM Q8HR PRN PRN Reason: Agitation Stop: 08/25/16 12:10 Lactulose (Cephulac) 30 gm PO TID [facility] Stop: 08/25/16 13:59 Last Admin: 07/03/16 08:58 Dose: 30 gm Levothyroxine Sodium (Synthroid) 0.05 mg PO QDAC [facility] Stop: 08/23/16 07:29 Last Admin: 07/03/16 06:59 Dose: Not Given Lorazepam (Ativan) 1 mg IM Q4HR PRN; Protocol PRN Reason: Agitation Stop: 08/25/16 10:37 Last Admin: 06/26/16 14:01 Dose: 1 mg Miscellaneous (Clinical Monitoring) 1 ea MC PRN PRN PRN Reason: RENAL DOSING Stop: 08/31/16 16:27 Morphine Sulfate (Morphine) 1 mg IV Q4H PRN PRN Reason: SEVERE PAIN Stop: 08/22/16 04:40 Last Admin: 07/03/16 02:40 Dose: 1 mg Ondansetron HCl (Zofran Odt) 4 mg PO Q6HR PRN PRN Reason: Nausea / Vomiting Stop: 08/22/16 20:30 Pantoprazole Sodium (Protonix) 40 mg PO DAILY [facility] Stop: 08/23/16 08:59 Last Admin: 07/03/16 08:58 Dose: Not Given Potassium Chloride (Klor-Con) 20 meq PO X1 ONE Stop: 07/03/16 10:01 Quetiapine Fumarate (Seroquel) 100 mg PO TID [facility] PRN Reason: Protocol Stop: 08/26/16 08:59 Last Admin: 07/03/16 08:58 Dose: Not Given Vitamin B Complex/Vit C/Folic Acid (Vitamin B Complex W/Vitamin C) 1 tab PO DAILY [facility] Stop: 08/23/16 08:59 Last Admin: 07/02/16 08:37 Dose: 1 tab - Procedures Procedures: Procedures Procedure Code Date FLUOROSCOPY OF SUP VENA CAVA USING OTH CONTRAST, GUIDANCE [id number] 06/22/16 INSERTION OF INFUSION DEV INTO SUP VENA CAVA, PERC APPROACH [id number] 06/22/16 PL[address] CATHETER IN VEIN [address] 06/22/16 Assessment/Plan - Problem List Patient Problems: All Active Problems MEDICAL EVALUATION PER DR FRY (Acute)
[2016-07-03 09:58] LABS: ANISOCYTOSIS 1+; BAND NEUTROPHILE 1 % (0-10); EOSINOPHIL 12 % (0-5); NEUTROPHILS 62 % (40-80); PLATELET ESTIMATE DECREASED PLATELETS (NORMAL); POLYCHROMASIA 1+; TOTAL CELLS COUNTED 100
[2016-07-03 09:59] LABS: PLATELET MORPHOLOGY NORMAL (NORMAL)
[2016-07-03] MEDS ORDERED: Potassium Chloride 20 mEq ER Tab PO ONE (10:00)
[2016-07-03] MEDS: Vitamin B Complex w/Vitamin C Tab PO SCH (10:39)
--- NOTE | 2016-07-03 12:31 | General Progress Note ---
Subjective - Review of Systems Subjective: pt refusing evrything pulled out vascular access yesterday spoke to dr forrest yesterday renal notes noted Objective - Results Result Diagrams: 07/03/16 05:30 07/03/16 07:30 Recent Labs: Laboratory Last Values WBC 4.7 Th/cmm (4.8-10.8) L 07/03/16 05:30 RBC 3.15 Mil/cmm (4.30-5.70) L 07/03/16 05:30 Hgb 9.3 gm/dL (13.2-17.3) L 07/03/16 05:30 Hct 27.8 % (39.0-49.0) L 07/03/16 05:30 MCV 88.4 fl (80-99) 07/03/16 05:30 MCH 29.6 pg (26.0-30.0) 07/03/16 05:30 MCHC Differential 33.5 pg (28.0-36.0) 07/03/16 05:30 RDW 16.1 % (11.5-20.0) 07/03/16 05:30 Plt Count 133 Th/cmm (150-400) L D 07/03/16 05:30 MPV 8.2 fl 07/03/16 05:30 Neutrophils % 59.6 % (40.0-80.0) 07/01/16 06:57 Band Neutrophils % 1 % (0-10) 07/03/16 05:30 Lymphocytes % 14.0 % (20.0-50.0) L 07/01/16 06:57 Monocytes % 11.7 % (2.0-10.0) H 07/01/16 06:57 Eosinophils % 14.7 % (0.0-5.0) H 07/01/16 06:57 Basophils % 0.0 % (0.0-2.0) 07/01/16 06:57 Neutrophils (Manual) 62 % (40-80) 07/03/16 05:30 Lymphocytes 20 % (20-50) 07/03/16 05:30 Monocytes 5 % (2-10) 07/03/16 05:30 Eosinophils 12 % (0-5) H 07/03/16 05:30 Basophils 3 % (0-3) 06/29/16 05:49 Hypochromia 1+ 02/03/17 19:33 Platelet Estimate DECREASED PLATELETS (NORMAL) 07/03/16 05:30 Platelet Morphology NORMAL (NORMAL) 07/03/16 05:30 Polychromasia 1+ 07/03/16 05:30 Anisocytosis 1+ 07/03/16 05:30 RBC Morph Micro Appear ABNORMAL (NORMAL) 07/03/16 05:30 PT 12.7 SECONDS (9.5-11.5) H 07/01/16 06:57 INR 1.26 (0.5-1.4) 07/01/16 06:57 PTT (Actin FS) 28.3 SECONDS (26.0-38.0) 06/28/16 04:38 Specimen Source art 06/22/16 20:03 Sample Site Right Radial 06/22/16 20:03 pH 7.49 (7.35-7.45) H 06/22/16 20:03 pCO2 34.0 mmHg (35.0-45.0) L 06/22/16 20:03 pO2 97.0 mmHg (80.0-100.0) 06/22/16 20:03 HCO3 25.9 mmol/L (20.0-26.0) 06/22/16 20:03 Base Excess 2.8 mmol/L (-3.0-3.0) 06/22/16 20:03 O2 Saturation 98.0 % (92.0-100.0) 06/22/16 20:03 Estuardo Test P 06/22/16 20:03 Vent Rate NA 06/22/16 20:03 Inspired O2 21 06/22/16 20:03 Tidal Volume NA 06/22/16 20:03 PEEP NA 06/22/16 20:03 Pressure (ins/psv/peep) NA 06/22/16 20:03 Critical Value RPINEIRA 06/22/16 20:03 Sodium 131 mEq/L (136-145) L 07/03/16 07:30 Potassium 3.1 mEq/L (3.5-5.1) L 07/03/16 07:30 Chloride 104 mEq/L (98-107) 07/03/16 07:30 Carbon Dioxide 25.7 mEq/L (21.0-31.0) 07/03/16 07:30 Anion Gap 4.4 (7.0-16.0) L 07/03/16 07:30 BUN 41 mg/dL (7-25) H 07/03/16 07:30 Creatinine 2.2 mg/dL (0.7-1.3) H 07/03/16 07:30 Est GFR ( Amer) 41.1 ml/min (>90) 07/03/16 07:30 Est GFR (Non-Af Amer) 34.0 ml/min 07/03/16 07:30 BUN/Creatinine Ratio 18.6 07/03/16 07:30 Glucose 83 mg/dL (70-105) 07/03/16 07:30 Calcium 9.4 mg/dL (8.6-10.3) 07/03/16 07:30 Phosphorus 4.1 mg/dL (2.5-5.0) 07/02/16 06:40 Magnesium 1.8 mg/dL (1.9-2.7) L 07/03/16 07:30 Iron 42 ug/dL (38-169) 06/28/16 04:38 TIBC 269 ug/dL (250-450) 06/28/16 04:38 Iron Saturation 16 % (15-55) 06/28/16 04:38 Unsaturated IBC 227 ug/dL (111-343) 06/28/16 04:38 Ferritin 150 ng/mL (30-400) 06/26/16 08:30 Total Bilirubin 4.0 mg/dL (0.3-1.0) H 07/01/16 06:57 Direct Bilirubin 0.70 mg/dL (0.0-0.2) H 06/28/16 04:38 GGTP 14 IU/L (0-65) 06/28/16 04:38 AST 64 U/L (13-39) H 07/01/16 06:57 ALT 16 U/L (7-52) 07/01/16 06:57 Alkaline Phosphatase 94 U/L (34-104) 07/01/16 06:57 Ammonia 105 umol/L (16-53) H 07/02/16 06:40 Troponin I < 0.01 ng/mL (0.01-0.05) L 06/22/16 19:33 B-Natriuretic Peptide 668.0 pg/mL (5.0-100.0) H 06/22/16 19:33 Total Protein 7.5 gm/dL (6.0-8.3) 07/01/16 06:57 Albumin 2.8 gm/dL (4.2-5.5) L 07/01/16 06:57 Globulin 4.7 gm/dL 07/01/16 06:57 Albumin/Globulin Ratio 0.6 (1.0-1.8) L 07/01/16 06:57 Amylase 28 U/L (29-103) L 07/02/16 06:40 Lipase 31 U/L (11-82) 07/02/16 06:40 Urine Source CLEAN C 06/29/16 05:55 Urine Color YELLOW 06/29/16 05:55 Urine Clarity HAZY (CLEAR) 06/29/16 05:55 Urine pH 5.5 06/29/16 05:55 Ur Specific [place] 1.015 (1.005-1.030) 06/29/16 05:55 Urine Protein 30 mg/dL (NEGATIVE) H 06/29/16 05:55 Urine Glucose (UA) NEGATIVE mg/dL (NEGATIVE) 06/29/16 05:55 Urine Ketones NEGATIVE mg/dL (NEGATIVE) 06/29/16 05:55 Urine Blood NEGATIVE (NEGATIVE) 06/29/16 05:55 Urine Nitrate NEGATIVE (NEGATIVE) 06/29/16 05:55 Urine Bilirubin NEGATIVE (NEGATIVE) 06/29/16 05:55 Urine Urobilinogen 0.2 E.U./dL (0.2 - 1.0) 06/29/16 05:55 Ur Leukocyte Esterase TRACE (NEGATIVE) H 06/29/16 05:55 Urine RBC 0-2 /hpf (0-5) H 06/29/16 05:55 Urine WBC 6-10 /hpf (0-5) H 06/29/16 05:55 Ur Epithelial Cells FEW /lpf (FEW) 06/29/16 05:55 Urine Bacteria MANY /hpf (NONE SEEN) 06/29/16 05:55 Stool Occult Blood POSITIVE (NEGATIVE) 06/24/16 16:00 Random Vancomycin 13.4 ug/mL (5.0-40.0) 06/28/16 04:38 RPR NONREACTIVE (NONREACTIVE) 06/22/16 19:33 Hepatitis A IgM Ab Negative (Negative) 06/29/16 05:49 Hep Bs Antigen Negative (Negative) 06/29/16 05:49 Hep B Core IgM Ab Negative (Negative) 06/29/16 05:49 Hepatitis C Antibody >11.0 s/co ratio (0.0-0.9) H 06/29/16 05:49 Blood Type A POSITIVE 06/28/16 04:38 Antibody Screen NEGATIVE 06/28/16 04:38 Crossmatch See Detail 06/28/16 04:38 - Physical Exam Vitals and I&O: Vital Signs Temp 99.4 F 07/03/16 04:00 Pulse 98 07/03/16 04:00 Resp 19 07/03/16 04:00 BP 91/51 07/03/16 04:00 Pulse Ox 94 07/03/16 04:00 Intake & Output 07/02/16 07/03/16 07/03/16 18:59 06:59 18:59 Intake Total 500 300 Balance 500 300 Intake: Oral 500 300 Other: # Voids 2 3 # Bowel Movements 3 Active Medications: Current Medications Acetaminophen (Tylenol) 325 mg PO Q6HR PRN PRN Reason: Mild Pain or Fever >101 Stop: 08/22/16 20:30 Albuterol/Ipratropium (Duoneb Neb) 3 ml HHN Q2HR PRN PRN Reason: Shortness of Breath or Wheeze Cholecalciferol (Vitamin D3) 2,000 iu PO DAILY [facility] Stop: 08/23/16 08:59 Last Admin: 07/03/16 08:58 Dose: Not Given Diphenhydramine HCl (Benadryl 50 Mg/Ml) 50 mg IM Q8HR PRN PRN Reason: Agitation Stop: 08/25/16 12:10 Docusate Sodium (Colace) 100 mg PO BID [facility] Stop: 08/22/16 16:59 Last Admin: 07/03/16 08:58 Dose: Not Given Haloperidol Lactate (Haldol) 5 mg IM Q8HR PRN PRN Reason: Agitation Stop: 08/25/16 12:10 Lactulose (Cephulac) 30 gm PO TID [facility] Stop: 08/25/16 13:59 Last Admin: 07/03/16 08:58 Dose: 30 gm Levothyroxine Sodium (Synthroid) 0.05 mg PO QDAC [facility] Stop: 08/23/16 07:29 Last Admin: 07/03/16 06:59 Dose: Not Given Lorazepam (Ativan) 1 mg IM Q4HR PRN; Protocol PRN Reason: Agitation Stop: 08/25/16 10:37 Last Admin: 06/26/16 14:01 Dose: 1 mg Miscellaneous (Clinical Monitoring) 1 ea MC PRN PRN PRN Reason: RENAL DOSING Stop: 08/31/16 16:27 Morphine Sulfate (Morphine) 1 mg IV Q4H PRN PRN Reason: SEVERE PAIN Stop: 08/22/16 04:40 Last Admin: 07/03/16 02:40 Dose: 1 mg Ondansetron HCl (Zofran Odt) 4 mg PO Q6HR PRN PRN Reason: Nausea / Vomiting Stop: 08/22/16 20:30 Pantoprazole Sodium (Protonix) 40 mg PO DAILY [facility] Stop: 08/23/16 08:59 Last Admin: 07/03/16 08:58 Dose: Not Given Quetiapine Fumarate (Seroquel) 100 mg PO TID [facility] PRN Reason: Protocol Stop: 08/26/16 08:59 Last Admin: 07/03/16 08:58 Dose: Not Given Vitamin B Complex/Vit C/Folic Acid (Vitamin B Complex W/Vitamin C) 1 tab PO DAILY [facility] Stop: 08/23/16 08:59 Last Admin: 07/03/16 10:39 Dose: Not Given - Procedures Procedures: Procedures Procedure Code Date FLUOROSCOPY OF SUP VENA CAVA USING OTH CONTRAST, GUIDANCE [id number] 06/22/16 INSERTION OF INFUSION DEV INTO SUP VENA CAVA, PERC APPROACH [id number] 06/22/[address] CATHETER IN VE[place] [id number] 06/22/16 Assessment/Plan - Problem List Patient Problems: All Active Problems MEDICAL EVALUATION PER DR FRY (Acute) - Assessment Assessment: 1. Cellulitis of legs. 2. Lymphedema of legs. 3. CKD 5 on HD. 4. Morbid obesity. 5 anemia 6 gi bleed 7 psychosis - Plan Plan: ivabx follow up labs id consult
[2016-07-03] MEDS ORDERED: Magnesium Citrate 1.75 GM/300 mL Bottle PO ONE ×2 (12:42→16:00)
--- NOTE | 2016-07-03 13:12 | General Progress Note ---
Subjective - Review of Systems Service Date: 07/03/16 Subjective: EVENTS NOTED. DID NOT COMPLETE BOWEL PREP - STOOLS NOT CLEAR YET. Objective - Results Result Diagrams: 07/03/16 05:30 07/03/16 07:30 Recent Labs: Laboratory Last Values WBC 4.7 Th/cmm (4.8-10.8) L 07/03/16 05:30 RBC 3.15 Mil/cmm (4.30-5.70) L 07/03/16 05:30 Hgb 9.3 gm/dL (13.2-17.3) L 07/03/16 05:30 Hct 27.8 % (39.0-49.0) L 07/03/16 05:30 MCV 88.4 fl (80-99) 07/03/16 05:30 MCH 29.6 pg (26.0-30.0) 07/03/16 05:30 MCHC Differential 33.5 pg (28.0-36.0) 07/03/16 05:30 RDW 16.1 % (11.5-20.0) 07/03/16 05:30 Plt Count 133 Th/cmm (150-400) L D 07/03/16 05:30 MPV 8.2 fl 07/03/16 05:30 Neutrophils % 59.6 % (40.0-80.0) 07/01/16 06:57 Band Neutrophils % 1 % (0-10) 07/03/16 05:30 Lymphocytes % 14.0 % (20.0-50.0) L 07/01/16 06:57 Monocytes % 11.7 % (2.0-10.0) H 07/01/16 06:57 Eosinophils % 14.7 % (0.0-5.0) H 07/01/16 06:57 Basophils % 0.0 % (0.0-2.0) 07/01/16 06:57 Neutrophils (Manual) 62 % (40-80) 07/03/16 05:30 Lymphocytes 20 % (20-50) 07/03/16 05:30 Monocytes 5 % (2-10) 07/03/16 05:30 Eosinophils 12 % (0-5) H 07/03/16 05:30 Basophils 3 % (0-3) 06/29/16 05:49 Hypochromia 1+ 06/22/16 19:33 Platelet Estimate DECREASED PLATELETS (NORMAL) 07/03/16 05:30 Platelet Morphology NORMAL (NORMAL) 07/03/16 05:30 Polychromasia 1+ 07/03/16 05:30 Anisocytosis 1+ 07/03/16 05:30 RBC Morph Micro Appear ABNORMAL (NORMAL) 07/03/16 05:30 PT 12.7 SECONDS (9.5-11.5) H 07/01/16 06:57 INR 1.26 (0.5-1.4) 07/01/16 06:57 PTT (Actin FS) 28.3 SECONDS (26.0-38.0) 06/28/16 04:38 Specimen Source art 06/22/16 20:03 Sample Site Right Radial 06/22/16 20:03 pH 7.49 (7.35-7.45) H 06/22/16 20:03 pCO2 34.0 mmHg (35.0-45.0) L 06/22/16 20:03 pO2 97.0 mmHg (80.0-100.0) 06/22/16 20:03 HCO3 25.9 mmol/L (20.0-26.0) 06/22/16 20:03 Base Excess 2.8 mmol/L (-3.0-3.0) 06/22/16 20:03 O2 Saturation 98.0 % (92.0-100.0) 06/22/16 20:03 Estuardo Test P 06/22/16 20:03 Vent Rate NA 06/22/16 20:03 Inspired O2 21 06/22/16 20:03 Tidal Volume NA 06/22/16 20:03 PEEP NA 06/22/16 20:03 Pressure (ins/psv/peep) NA 06/22/16 20:03 Critical Value RPINEIRA 06/22/16 20:03 Sodium 131 mEq/L (136-145) L 07/03/16 07:30 Potassium 3.1 mEq/L (3.5-5.1) L 07/03/16 07:30 Chloride 104 mEq/L (98-107) 07/03/16 07:30 Carbon Dioxide 25.7 mEq/L (21.0-31.0) 07/03/16 07:30 Anion Gap 4.4 (7.0-16.0) L 07/03/16 07:30 BUN 41 mg/dL (7-25) H 07/03/16 07:30 Creatinine 2.2 mg/dL (0.7-1.3) H 07/03/16 07:30 Est GFR ( Amer) 41.1 ml/min (>90) 07/03/16 07:30 Est GFR (Non-Af Amer) 34.0 ml/min 07/03/16 07:30 BUN/Creatinine Ratio 18.6 07/03/16 07:30 Glucose 83 mg/dL (70-105) 07/03/16 07:30 Calcium 9.4 mg/dL (8.6-10.3) 07/03/16 07:30 Phosphorus 4.1 mg/dL (2.5-5.0) 07/02/16 06:40 Magnesium 1.8 mg/dL (1.9-2.7) L 07/03/16 07:30 Iron 42 ug/dL (38-169) 06/28/16 04:38 TIBC 269 ug/dL (250-450) 06/28/16 04:38 Iron Saturation 16 % (15-55) 06/28/16 04:38 Unsaturated IBC 227 ug/dL (111-343) 06/28/16 04:38 Ferritin 150 ng/mL (30-400) 06/26/16 08:30 Total Bilirubin 4.0 mg/dL (0.3-1.0) H 07/01/16 06:57 Direct Bilirubin 0.70 mg/dL (0.0-0.2) H 06/28/16 04:38 GGTP 14 IU/L (0-65) 06/28/16 04:38 AST 64 U/L (13-39) H 07/01/16 06:57 ALT 16 U/L (7-52) 07/01/16 06:57 Alkaline Phosphatase 94 U/L (34-104) 07/01/16 06:57 Ammonia 105 umol/L (16-53) H 07/02/16 06:40 Troponin I < 0.01 ng/mL (0.01-0.05) L 06/22/16 19:33 B-Natriuretic Peptide 668.0 pg/mL (5.0-100.0) H 06/22/16 19:33 Total Protein 7.5 gm/dL (6.0-8.3) 07/01/16 06:57 Albumin 2.8 gm/dL (4.2-5.5) L 07/01/16 06:57 Globulin 4.7 gm/dL 07/01/16 06:57 Albumin/Globulin Ratio 0.6 (1.0-1.8) L 07/01/16 06:57 Amylase 28 U/L (29-103) L 07/02/16 06:40 Lipase 31 U/L (11-82) 07/02/16 06:40 Urine Source CLEAN C 06/29/16 05:55 Urine Color YELLOW 06/29/16 05:55 Urine Clarity HAZY (CLEAR) 06/29/16 05:55 Urine pH 5.5 06/29/16 05:55 Ur Specific Dewart 1.015 (1.005-1.030) 06/29/16 05:55 Urine Protein 30 mg/dL (NEGATIVE) H 06/29/16 05:55 Urine Glucose (UA) NEGATIVE mg/dL (NEGATIVE) 06/29/16 05:55 Urine Ketones NEGATIVE mg/dL (NEGATIVE) 06/29/16 05:55 Urine Blood NEGATIVE (NEGATIVE) 06/29/16 05:55 Urine Nitrate NEGATIVE (NEGATIVE) 06/29/16 05:55 Urine Bilirubin NEGATIVE (NEGATIVE) 06/29/16 05:55 Urine Urobilinogen 0.2 E.U./dL (0.2 - 1.0) 06/29/16 05:55 Ur Leukocyte Esterase TRACE (NEGATIVE) H 06/29/16 05:55 Urine RBC 0-2 /hpf (0-5) H 06/29/16 05:55 Urine WBC 6-10 /hpf (0-5) H 06/29/16 05:55 Ur Epithelial Cells FEW /lpf (FEW) 06/29/16 05:55 Urine Bacteria MANY /hpf (NONE SEEN) 06/29/16 05:55 Stool Occult Blood POSITIVE (NEGATIVE) 06/24/16 16:00 Random Vancomycin 13.4 ug/mL (5.0-40.0) 06/28/16 04:38 RPR NONREACTIVE (NONREACTIVE) 06/22/16 19:33 Hepatitis A IgM Ab Negative (Negative) 06/29/16 05:49 Hep Bs Antigen Negative (Negative) 06/29/16 05:49 Hep B Core IgM Ab Negative (Negative) 06/29/16 05:49 Hepatitis C Antibody >11.0 s/co ratio (0.0-0.9) H 06/29/16 05:49 Blood Type A POSITIVE 06/28/16 04:38 Antibody Screen NEGATIVE 06/28/16 04:38 Crossmatch See Detail 06/28/16 04:38 - Physical Exam Vitals and I&O: Vital Signs Temp 99.4 F 07/03/16 04:00 Pulse 98 07/03/16 04:00 Resp 19 07/03/16 04:00 BP 91/51 07/03/16 04:00 Pulse Ox 94 07/03/16 04:00 Intake & Output 07/02/16 07/03/16 07/03/16 18:59 06:59 18:59 Intake Total 500 300 Balance 500 300 Intake: Oral 500 300 Other: # Voids 2 3 # Bowel Movements 3 Active Medications: Current Medications Acetaminophen (Tylenol) 325 mg PO Q6HR PRN PRN Reason: Mild Pain or Fever >101 Stop: 08/22/16 20:30 Albuterol/Ipratropium (Duoneb Neb) 3 ml HHN Q2HR PRN PRN Reason: Shortness of Breath or Wheeze Bisacodyl (Dulcolax 5 Mg Ec Tab) 10 mg PO X1 ONE Stop: 07/03/16 16:01 Cholecalciferol (Vitamin D3) 2,000 iu PO DAILY MARQUISE Stop: 08/23/16 08:59 Last Admin: 07/03/16 08:58 Dose: Not Given Diphenhydramine HCl (Benadryl 50 Mg/Ml) 50 mg IM Q8HR PRN PRN Reason: Agitation Stop: 08/25/16 12:10 Docusate Sodium (Colace) 100 mg PO BID MARQUISE Stop: 08/22/16 16:59 Last Admin: 07/03/16 08:58 Dose: Not Given Haloperidol Lactate (Haldol) 5 mg IM Q8HR PRN PRN Reason: Agitation Stop: 08/25/16 12:10 Lactulose (Cephulac) 30 gm PO TID MARQUISE Stop: 08/25/16 13:59 Last Admin: 07/03/16 08:58 Dose: 30 gm Levothyroxine Sodium (Synthroid) 0.05 mg PO QDAC MARQUISE Stop: 08/23/16 07:29 Last Admin: 07/03/16 06:59 Dose: Not Given Lorazepam (Ativan) 1 mg IM Q4HR PRN; Protocol PRN Reason: Agitation Stop: 08/25/16 10:37 Last Admin: 06/26/16 14:01 Dose: 1 mg Magnesium Citrate (Citroma) 17.5 gm PO X1 ONE Stop: 07/03/16 12:43 Miscellaneous (Clinical Monitoring) 1 ea MC PRN PRN PRN Reason: RENAL DOSING Stop: 08/31/16 16:27 Morphine Sulfate (Morphine) 1 mg IV Q4H PRN PRN Reason: SEVERE PAIN Stop: 08/22/16 04:40 Last Admin: 07/03/16 02:40 Dose: 1 mg Ondansetron HCl (Zofran Odt) 4 mg PO Q6HR PRN PRN Reason: Nausea / Vomiting Stop: 08/22/16 20:30 Pantoprazole Sodium (Protonix) 40 mg PO DAILY MARQUISE Stop: 08/23/16 08:59 Last Admin: 07/03/16 08:58 Dose: Not Given Polyethylene Glycol (Miralax) 34 gm PO Q2H MARQUISE Stop: 07/03/16 20:46 Polyethylene Glycol/Electrolytes (Golytely) 4,000 ml PO X1 ONE Stop: 07/03/16 12:41 Quetiapine Fumarate (Seroquel) 100 mg PO TID MARQUISE PRN Reason: Protocol Stop: 08/26/16 08:59 Last Admin: 07/03/16 08:58 Dose: Not Given Sorbitol (Sorbitol) 100 ml PO X1 ONE Stop: 07/03/16 12:41 Vitamin B Complex/Vit C/Folic Acid (Vitamin B Complex W/Vitamin C) 1 tab PO DAILY MARQUISE Stop: 08/23/16 08:59 Last Admin: 07/03/16 10:39 Dose: Not Given General: Alert HEENT: Atraumatic Neck: Supple Cardiovascular: Regular rate Lungs: Clear to auscultation Abdomen: Bowel sounds, Soft, Other (SUPER OBESE) - Procedures Procedures: Procedures Procedure Code Date FLUOROSCOPY OF SUP VENA CAVA USING OT CONTRAST, GUIDANCE [id number] 06/22/16 INSERTION OF INFUSION DEV INTO SUP VENA CAVA, PERC APPROACH [id number] 06/22/16 PLACE CATHETER IN VEIN [address] 06/22/16 Assessment/Plan - Problem List Patient Problems: All Active Problems MEDICAL EVALUATION PER DR FRY (Acute) - Assessment Assessment: 1. ANEMIA AND OCCULT GI BLEED. 2. ESRD - HD DEP; PULLED OUT ACCESS LINE AND NOW REPLACED. 3. MORBID OBESITY. 4. ALOC WITH ELEVATED NH3 LEVEL - R/O HEP ENCEPH. 5. MILDLY ELEVATED LFT'S - R/O CHRONIC LIVER DISEASE AND CIRRHOSIS. - Plan Plan: 1. F/U LIVER LABS. 2. CHECK ABD US. 3. EGD AND COLONOSCOPY TOMORROW - WILL CONTINUE BOWEL PREP. 4. PSYCH F/U. 5. PROTONIX. 6. MONITOR HGB; TRANSFUSE PRN. 7. LACTULOSE AND RIFAXIMIN.
[2016-07-03] MEDS: POLYETHYLENE GLYCOL 3350 17 GM PACK PO SCH ×5 (13:55→22:00)
--- NOTE | 2016-07-03 14:14 | Diagnostic Imaging Report ---
Bilateral upper extremity Doppler venous mapping exam HISTORY: Assessment for vascular shunt placement The exam is extremely limited due to lack of patient cooperation. The exam of the right arm demonstrates patency of the right internal jugular, clavian, axillary, basilic, and cephalic veins. The right brachial vein cannot be evaluated due to catheter placement. The left arm demonstrates patency of the left internal jugular, axillary, brachial, basilic, cephalic veins. No thrombus. The left subclavian vein could not be well evaluated due to catheter placement. Very limited venous mapping could be obtained due to lack of patient cooperation. See separate worksheet for obtained quantitative measurements. IMPRESSION: 1. Very Limited/suboptimal exam due to lack of patient cooperation. 2. No definite intraluminal thrombus or sierra occlusion is seen. The right brachial and left subclavian veins could not be well evaluated due to the presence of vascular catheters. 3. Incomplete venous mapping due to lack of patient cooperation (see separate worksheet for quantitative measurements that were obtained.
[2016-07-03] MEDS ORDERED: Mag Sulfate 2gm/50mL Premix 2 GM/50 ML BAG IV ONE (14:28)
--- NOTE | 2016-07-03 14:28 | General Progress Note ---
Subjective - Review of Systems Service Date: 07/03/16 Subjective: more cooperative, less agitated, wants to be transferred to another facility, refused go lytely, wants magcitrate Objective - Results Result Diagrams: 07/03/16 05:30 07/03/16 07:30 Recent Labs: Laboratory Last Values WBC 4.7 Th/cmm (4.8-10.8) L 07/03/16 05:30 RBC 3.15 Mil/cmm (4.30-5.70) L 07/03/16 05:30 Hgb 9.3 gm/dL (13.2-17.3) L 07/03/16 05:30 Hct 27.8 % (39.0-49.0) L 07/03/16 05:30 MCV 88.4 fl (80-99) 07/03/16 05:30 MCH 29.6 pg (26.0-30.0) 07/03/16 05:30 MCHC Differential 33.5 pg (28.0-36.0) 07/03/16 05:30 RDW 16.1 % (11.5-20.0) 07/03/16 05:30 Plt Count 133 Th/cmm (150-400) L D 07/03/16 05:30 MPV 8.2 fl 07/03/16 05:30 Neutrophils % 59.6 % (40.0-80.0) 07/01/16 06:57 Band Neutrophils % 1 % (0-10) 07/03/16 05:30 Lymphocytes % 14.0 % (20.0-50.0) L 07/01/16 06:57 Monocytes % 11.7 % (2.0-10.0) H 07/01/16 06:57 Eosinophils % 14.7 % (0.0-5.0) H 07/01/16 06:57 Basophils % 0.0 % (0.0-2.0) 07/01/16 06:57 Neutrophils (Manual) 62 % (40-80) 07/03/16 05:30 Lymphocytes 20 % (20-50) 07/03/16 05:30 Monocytes 5 % (2-10) 07/03/16 05:30 Eosinophils 12 % (0-5) H 07/03/16 05:30 Basophils 3 % (0-3) 06/29/16 05:49 Hypochromia 1+ 06/22/16 19:33 Platelet Estimate DECREASED PLATELETS (NORMAL) 07/03/16 05:30 Platelet Morphology NORMAL (NORMAL) 07/03/16 05:30 Polychromasia 1+ 07/03/16 05:30 Anisocytosis 1+ 07/03/16 05:30 RBC Morph Micro Appear ABNORMAL (NORMAL) 07/03/16 05:30 PT 12.7 SECONDS (9.5-11.5) H 07/01/16 06:57 INR 1.26 (0.5-1.4) 07/01/16 06:57 PTT (Actin FS) 28.3 SECONDS (26.0-38.0) 06/28/16 04:38 Specimen Source art 06/22/16 20:03 Sample Site Right Radial 06/22/16 20:03 pH 7.49 (7.35-7.45) H 06/22/16 20:03 pCO2 34.0 mmHg (35.0-45.0) L 06/22/16 20:03 pO2 97.0 mmHg (80.0-100.0) 06/22/16 20:03 HCO3 25.9 mmol/L (20.0-26.0) 06/22/16 20:03 Base Excess 2.8 mmol/L (-3.0-3.0) 06/22/16 20:03 O2 Saturation 98.0 % (92.0-100.0) 06/22/16 20:03 Estuardo Test P 06/22/16 20:03 Vent Rate NA 06/22/16 20:03 Inspired O2 21 06/22/16 20:03 Tidal Volume NA 06/22/16 20:03 PEEP NA 06/22/16 20:03 Pressure (ins/psv/peep) NA 06/22/16 20:03 Critical Value RPINEIRA 06/22/16 20:03 Sodium 131 mEq/L (136-145) L 07/03/16 07:30 Potassium 3.1 mEq/L (3.5-5.1) L 07/03/16 07:30 Chloride 104 mEq/L (98-107) 07/03/16 07:30 Carbon Dioxide 25.7 mEq/L (21.0-31.0) 07/03/16 07:30 Anion Gap 4.4 (7.0-16.0) L 07/03/16 07:30 BUN 41 mg/dL (7-25) H 07/03/16 07:30 Creatinine 2.2 mg/dL (0.7-1.3) H 07/03/16 07:30 Est GFR ( Amer) 41.1 ml/min (>90) 07/03/16 07:30 Est GFR (Non-Af Amer) 34.0 ml/min 07/03/16 07:30 BUN/Creatinine Ratio 18.6 07/03/16 07:30 Glucose 83 mg/dL (70-105) 07/03/16 07:30 Calcium 9.4 mg/dL (8.6-10.3) 07/03/16 07:30 Phosphorus 4.1 mg/dL (2.5-5.0) 07/02/16 06:40 Magnesium 1.8 mg/dL (1.9-2.7) L 07/03/16 07:30 Iron 42 ug/dL (38-169) 06/28/16 04:38 TIBC 269 ug/dL (250-450) 06/28/16 04:38 Iron Saturation 16 % (15-55) 06/28/16 04:38 Unsaturated IBC 227 ug/dL (111-343) 06/28/16 04:38 Ferritin 150 ng/mL (30-400) 06/26/16 08:30 Total Bilirubin 4.0 mg/dL (0.3-1.0) H 07/01/16 06:57 Direct Bilirubin 0.70 mg/dL (0.0-0.2) H 06/28/16 04:38 GGTP 14 IU/L (0-65) 06/28/16 04:38 AST 64 U/L (13-39) H 07/01/16 06:57 ALT 16 U/L (7-52) 07/01/16 06:57 Alkaline Phosphatase 94 U/L (34-104) 07/01/16 06:57 Ammonia 105 umol/L (16-53) H 07/02/16 06:40 Troponin I < 0.01 ng/mL (0.01-0.05) L 06/22/16 19:33 B-Natriuretic Peptide 668.0 pg/mL (5.0-100.0) H 06/22/16 19:33 Total Protein 7.5 gm/dL (6.0-8.3) 07/01/16 06:57 Albumin 2.8 gm/dL (4.2-5.5) L 07/01/16 06:57 Globulin 4.7 gm/dL 07/01/16 06:57 Albumin/Globulin Ratio 0.6 (1.0-1.8) L 07/01/16 06:57 Amylase 28 U/L (29-103) L 07/02/16 06:40 Lipase 31 U/L (11-82) 07/02/16 06:40 Urine Source CLEAN C 06/29/16 05:55 Urine Color YELLOW 06/29/16 05:55 Urine Clarity HAZY (CLEAR) 06/29/16 05:55 Urine pH 5.5 06/29/16 05:55 Ur Specific [place] 1.015 (1.005-1.030) 06/29/16 05:55 Urine Protein 30 mg/dL (NEGATIVE) H 06/29/16 05:55 Urine Glucose (UA) NEGATIVE mg/dL (NEGATIVE) 06/29/16 05:55 Urine Ketones NEGATIVE mg/dL (NEGATIVE) 06/29/16 05:55 Urine Blood NEGATIVE (NEGATIVE) 06/29/16 05:55 Urine Nitrate NEGATIVE (NEGATIVE) 06/29/16 05:55 Urine Bilirubin NEGATIVE (NEGATIVE) 06/29/16 05:55 Urine Urobilinogen 0.2 E.U./dL (0.2 - 1.0) 06/29/16 05:55 Ur Leukocyte Esterase TRACE (NEGATIVE) H 06/29/16 05:55 Urine RBC 0-2 /hpf (0-5) H 06/29/16 05:55 Urine WBC 6-10 /hpf (0-5) H 06/29/16 05:55 Ur Epithelial Cells FEW /lpf (FEW) 06/29/16 05:55 Urine Bacteria MANY /hpf (NONE SEEN) 06/29/16 05:55 Stool Occult Blood POSITIVE (NEGATIVE) 06/24/16 16:00 Random Vancomycin 13.4 ug/mL (5.0-40.0) 06/28/16 04:38 RPR NONREACTIVE (NONREACTIVE) 06/22/16 19:33 Hepatitis A IgM Ab Negative (Negative) 06/29/16 05:49 Hep Bs Antigen Negative (Negative) 06/29/16 05:49 Hep B Core IgM Ab Negative (Negative) 06/29/16 05:49 Hepatitis C Antibody >11.0 s/co ratio (0.0-0.9) H 06/29/16 05:49 Blood Type A POSITIVE 06/28/16 04:38 Antibody Screen NEGATIVE 06/28/16 04:38 Crossmatch See Detail 06/28/16 04:38 - Physical Exam Vitals and I&O: Vital Signs Temp 99.4 F 07/03/16 04:00 Pulse 98 07/03/16 04:00 Resp 19 07/03/16 04:00 BP 91/51 07/03/16 04:00 Pulse Ox 94 07/03/16 04:00 Intake & Output 07/02/16 07/03/16 07/03/16 18:59 06:59 18:59 Intake Total 500 300 Balance 500 300 Intake: Oral 500 300 Other: # Voids 2 3 # Bowel Movements 3 Active Medications: Current Medications Acetaminophen (Tylenol) 325 mg PO Q6HR PRN PRN Reason: Mild Pain or Fever >101 Stop: 08/22/16 20:30 Albuterol/Ipratropium (Duoneb Neb) 3 ml HHN Q2HR PRN PRN Reason: Shortness of Breath or Wheeze Bisacodyl (Dulcolax 5 Mg Ec Tab) 10 mg PO X1 ONE Stop: 07/03/16 16:01 Cholecalciferol (Vitamin D3) 2,000 iu PO DAILY [facility] Stop: 08/23/16 08:59 Last Admin: 07/03/16 08:58 Dose: Not Given Diphenhydramine HCl (Benadryl 50 Mg/Ml) 50 mg IM Q8HR PRN PRN Reason: Agitation Stop: 08/25/16 12:10 Docusate Sodium (Colace) 100 mg PO BID [facility] Stop: 08/22/16 16:59 Last Admin: 07/03/16 08:58 Dose: Not Given Haloperidol Lactate (Haldol) 5 mg IM Q8HR PRN PRN Reason: Agitation Stop: 08/25/16 12:10 Lactulose (Cephulac) 30 gm PO TID [facility] Stop: 08/25/16 13:59 Last Admin: 07/03/16 08:58 Dose: 30 gm Levothyroxine Sodium (Synthroid) 0.05 mg PO QDAC [facility] Stop: 08/23/16 07:29 Last Admin: 07/03/16 06:59 Dose: Not Given Lorazepam (Ativan) 1 mg IM Q4HR PRN; Protocol PRN Reason: Agitation Stop: 08/25/16 10:37 Last Admin: 06/26/16 14:01 Dose: 1 mg Miscellaneous (Clinical Monitoring) 1 ea MC PRN PRN PRN Reason: RENAL DOSING Stop: 08/31/16 16:27 Morphine Sulfate (Morphine) 1 mg IV Q4H PRN PRN Reason: SEVERE PAIN Stop: 08/22/16 04:40 Last Admin: 07/03/16 02:40 Dose: 1 mg Ondansetron HCl (Zofran Odt) 4 mg PO Q6HR PRN PRN Reason: Nausea / Vomiting Stop: 08/22/16 20:30 Pantoprazole Sodium (Protonix) 40 mg PO DAILY [facility] Stop: 08/23/16 08:59 Last Admin: 07/03/16 08:58 Dose: Not Given Polyethylene Glycol (Miralax) 34 gm PO Q2H [facility] Stop: 07/03/16 22:01 Last Admin: 07/03/16 13:55 Dose: 34 gm Quetiapine Fumarate (Seroquel) 100 mg PO TID [facility] PRN Reason: Protocol Stop: 08/26/16 08:59 Last Admin: 07/03/16 08:58 Dose: Not Given Vitamin B Complex/Vit C/Folic Acid (Vitamin B Complex W/Vitamin C) 1 tab PO DAILY [facility] Stop: 08/23/16 08:59 Last Admin: 07/03/16 10:39 Dose: Not Given General: Alert, No acute distress HEENT: Atraumatic, Mucous membr. moist/pink Neck: Supple, +2 carotid pulse wo bruit Cardiovascular: Regular rate, Normal S1, Normal S2 Lungs: Clear to auscultation Abdomen: Bowel sounds, Soft Extremities: Edema Neurological: Sensation intact Skin: no Rash - Procedures Procedures: Procedures Procedure Code Date FLUOROSCOPY OF SUP VENA CAVA USING [facility] CONTRAST, GUIDANCE [id number] 06/22/16 INSERTION OF INFUSION DEV INTO SUP VENA CAVA, PERC APPROACH [id number] 06/22/16 PL[address] CATHETER IN VEIN [address] 06/22/16 Assessment/Plan - Problem List Patient Problems: All Active Problems MEDICAL EVALUATION PER DR FRY (Acute) - Assessment Assessment: esrd on hd persistent cellulitis b/l lower ext acute on chronic anemia possible gi bleed ohs chronic a. fib hypothyroid anasarca functional quadriplegia chronic venous stasis dermatitis acute decomp psychosis hypokalemia, hypomagnesemia - Plan Plan: pt. pulled out perma cath schedule for PICC line, then transfuse 2 units PRBC hgb/hct slightly improved to 9.3/27.8 transfused 2 units prbc schedule for hd in am replace K, Mg
[2016-07-04] MEDS: Lactulose 10 Gm/15 mL 30mL UDC PO SCH ×2 (00:05→04:00)
--- NOTE | 2016-07-04 04:35 | Progress Notes ---
Case was discussed with staff of the patient, reviewed records. The patient today is in dialysis. The patient was more alert today. He was in dialysis. He reports he was very unhappy because of being on Seroquel. I explained to him that Dr. Mirza put him on Seroquel because of his combative behavior. He said he will take himself off it. He said that when people wake him up, he usually would start getting very upset. The patient denies any intent to harm himself or anybody. He is sleeping well, eating well. I will continue with the same for now. Dr. Mirza will follow up with him. Thank you very much for allowing me to participate in the care of this most interesting gentleman. JOB# [id number]
[2016-07-04 06:15] LABS: HEMATOCRIT 28.2 % (39.0-49.0); HEMOGLOBIN 9.6 gm/dL (13.2-17.3); MEAN CELL VOLUME 87.3 fl (80-99); MEAN CORPUSCULAR HEMOGLOBIN 29.6 pg (26.0-30.0); MEAN CORPUSCULAR HGB CONC 33.9 pg (28.0-36.0); MEAN PLATELET VOLUME 9.4 fl; PLATELET COUNT 119 Th/cmm (150-400); RED BLOOD COUNT 3.22 Mil/cmm (4.30-5.70); RED CELL DISTRIBUTION WIDTH 15.7 % (11.5-20.0); WHITE BLOOD COUNT 4.7 Th/cmm (4.8-10.8)
[2016-07-04] MEDS: Levothyroxine 0.05 Mg Tab PO SCH (08:02)
[2016-07-04 08:23] LABS: BAND NEUTROPHILE 0 % (0-10); EOSINOPHIL 4 % (0-5); NEUTROPHILS 58 % (40-80); PLATELET ESTIMATE DECREASED PLATELETS (NORMAL); TOTAL CELLS COUNTED 100
--- NOTE | 2016-07-04 08:42 | General Progress Note ---
Subjective - Review of Systems Service Date: 07/04/16 Events since last encounter: for colonoscopy today Plan: left arm Cheryl fistula vs shunt in AM Objective - Results Result Diagrams: 07/04/16 04:58 07/03/16 07:30 Recent Labs: Laboratory Last Values WBC 4.7 Th/cmm (4.8-10.8) L 07/04/16 04:58 RBC 3.22 Mil/cmm (4.30-5.70) L 07/04/16 04:58 Hgb 9.6 gm/dL (13.2-17.3) L 07/04/16 04:58 Hct 28.2 % (39.0-49.0) L 07/04/16 04:58 MCV 87.3 fl (80-99) 07/04/16 04:58 MCH 29.6 pg (26.0-30.0) 07/04/16 04:58 MCHC Differential 33.9 pg (28.0-36.0) 07/04/16 04:58 RDW 15.7 % (11.5-20.0) 07/04/16 04:58 Plt Count 119 Th/cmm (150-400) L 07/04/16 04:58 MPV 9.4 fl 07/04/16 04:58 Neutrophils % 59.6 % (40.0-80.0) 07/01/16 06:57 Band Neutrophils % 0 % (0-10) 07/04/16 04:58 Lymphocytes % 14.0 % (20.0-50.0) L 07/01/16 06:57 Monocytes % 11.7 % (2.0-10.0) H 07/01/16 06:57 Eosinophils % 14.7 % (0.0-5.0) H 07/01/16 06:57 Basophils % 0.0 % (0.0-2.0) 07/01/16 06:57 Neutrophils (Manual) 58 % (40-80) 07/04/16 04:58 Lymphocytes 19 % (20-50) L 07/04/16 04:58 Monocytes 19 % (2-10) H 07/04/16 04:58 Eosinophils 4 % (0-5) 07/04/16 04:58 Basophils 3 % (0-3) 06/29/16 05:49 Hypochromia 1+ 06/22/16 19:33 Platelet Estimate DECREASED PLATELETS (NORMAL) 07/04/16 04:58 Platelet Morphology NORMAL (NORMAL) 07/03/16 05:30 Polychromasia 1+ 07/03/16 05:30 Anisocytosis 1+ 07/03/16 05:30 RBC Morph Micro Appear ABNORMAL (NORMAL) 07/03/16 05:30 PT 12.7 SECONDS (9.5-11.5) H 07/01/16 06:57 INR 1.26 (0.5-1.4) 07/01/16 06:57 PTT (Actin FS) 28.3 SECONDS (26.0-38.0) 06/28/16 04:38 Specimen Source art 06/22/16 20:03 Sample Site Right Radial 06/22/16 20:03 pH 7.49 (7.35-7.45) H 06/22/16 20:03 pCO2 34.0 mmHg (35.0-45.0) L 06/22/16 20:03 pO2 97.0 mmHg (80.0-100.0) 06/22/16 20:03 HCO3 25.9 mmol/L (20.0-26.0) 06/22/16 20:03 Base Excess 2.8 mmol/L (-3.0-3.0) 06/22/16 20:03 O2 Saturation 98.0 % (92.0-100.0) 06/22/16 20:03 Estuardo Test P 06/22/16 20:03 Vent Rate NA 06/22/16 20:03 Inspired O2 21 06/22/16 20:03 Tidal Volume NA 06/22/16 20:03 PEEP NA 06/22/16 20:03 Pressure (ins/psv/peep) NA 06/22/16 20:03 Critical Value RPINEIRA 06/22/16 20:03 Sodium 131 mEq/L (136-145) L 07/03/16 07:30 Potassium 3.1 mEq/L (3.5-5.1) L 07/03/16 07:30 Chloride 104 mEq/L (98-107) 07/03/16 07:30 Carbon Dioxide 25.7 mEq/L (21.0-31.0) 07/03/16 07:30 Anion Gap 4.4 (7.0-16.0) L 07/03/16 07:30 BUN 41 mg/dL (7-25) H 07/03/16 07:30 Creatinine 2.2 mg/dL (0.7-1.3) H 07/03/16 07:30 Est GFR ( Amer) 41.1 ml/min (>90) 07/03/16 07:30 Est GFR (Non-Af Amer) 34.0 ml/min 07/03/16 07:30 BUN/Creatinine Ratio 18.6 07/03/16 07:30 Glucose 83 mg/dL (70-105) 07/03/16 07:30 Calcium 9.4 mg/dL (8.6-10.3) 07/03/16 07:30 Phosphorus 4.1 mg/dL (2.5-5.0) 07/02/16 06:40 Magnesium 1.8 mg/dL (1.9-2.7) L 07/03/16 07:30 Iron 42 ug/dL (38-169) 06/28/16 04:38 TIBC 269 ug/dL (250-450) 06/28/16 04:38 Iron Saturation 16 % (15-55) 06/28/16 04:38 Unsaturated IBC 227 ug/dL (111-343) 06/28/16 04:38 Ferritin 150 ng/mL (30-400) 06/26/16 08:30 Total Bilirubin 4.0 mg/dL (0.3-1.0) H 07/01/16 06:57 Direct Bilirubin 0.70 mg/dL (0.0-0.2) H 06/28/16 04:38 GGTP 14 IU/L (0-65) 06/28/16 04:38 AST 64 U/L (13-39) H 07/01/16 06:57 ALT 16 U/L (7-52) 07/01/16 06:57 Alkaline Phosphatase 94 U/L (34-104) 07/01/16 06:57 Ammonia 105 umol/L (16-53) H 07/02/16 06:40 Troponin I < 0.01 ng/mL (0.01-0.05) L 06/22/16 19:33 B-Natriuretic Peptide 668.0 pg/mL (5.0-100.0) H 06/22/16 19:33 Total Protein 7.5 gm/dL (6.0-8.3) 07/01/16 06:57 Albumin 2.8 gm/dL (4.2-5.5) L 07/01/16 06:57 Globulin 4.7 gm/dL 07/01/16 06:57 Albumin/Globulin Ratio 0.6 (1.0-1.8) L 07/01/16 06:57 Amylase 28 U/L (29-103) L 07/02/16 06:40 Lipase 31 U/L (11-82) 07/02/16 06:40 Urine Source CLEAN C 06/29/16 05:55 Urine Color YELLOW 06/29/16 05:55 Urine Clarity HAZY (CLEAR) 06/29/16 05:55 Urine pH 5.5 06/29/16 05:55 Ur Specific [place] 1.015 (1.005-1.030) 06/29/16 05:55 Urine Protein 30 mg/dL (NEGATIVE) H 06/29/16 05:55 Urine Glucose (UA) NEGATIVE mg/dL (NEGATIVE) 06/29/16 05:55 Urine Ketones NEGATIVE mg/dL (NEGATIVE) 06/29/16 05:55 Urine Blood NEGATIVE (NEGATIVE) 06/29/16 05:55 Urine Nitrate NEGATIVE (NEGATIVE) 06/29/16 05:55 Urine Bilirubin NEGATIVE (NEGATIVE) 06/29/16 05:55 Urine Urobilinogen 0.2 E.U./dL (0.2 - 1.0) 06/29/16 05:55 Ur Leukocyte Esterase TRACE (NEGATIVE) H 06/29/16 05:55 Urine RBC 0-2 /hpf (0-5) H 06/29/16 05:55 Urine WBC 6-10 /hpf (0-5) H 06/29/16 05:55 Ur Epithelial Cells FEW /lpf (FEW) 06/29/16 05:55 Urine Bacteria MANY /hpf (NONE SEEN) 06/29/16 05:55 Stool Occult Blood POSITIVE (NEGATIVE) 06/24/16 16:00 Random Vancomycin 13.4 ug/mL (5.0-40.0) 06/28/16 04:38 RPR NONREACTIVE (NONREACTIVE) 06/22/16 19:33 Hepatitis A IgM Ab Negative (Negative) 06/29/16 05:49 Hep Bs Antigen Negative (Negative) 06/29/16 05:49 Hep B Core IgM Ab Negative (Negative) 06/29/16 05:49 Hepatitis C Antibody >11.0 s/co ratio (0.0-0.9) H 06/29/16 05:49 Blood Type A POSITIVE 06/28/16 04:38 Antibody Screen NEGATIVE 06/28/16 04:38 Crossmatch See Detail 06/28/16 04:38 - Physical Exam Vitals and I&O: Vital Signs Temp 97.7 F 07/04/16 04:00 Pulse 80 07/04/16 04:00 Resp 20 07/04/16 04:00 BP 124/87 07/04/16 04:00 Pulse Ox 94 07/04/16 04:00 Intake & Output 07/03/16 07/04/16 07/04/16 18:59 06:59 18:59 Intake Total 650 Output Total 300 Balance 350 Intake: Intake, IV Amount 50 Oral 600 Output: Urine 300 Other: # Bowel Movements 3 Stool Characteristics Liquid Active Medications: Current Medications Acetaminophen (Tylenol) 325 mg PO Q6HR PRN PRN Reason: Mild Pain or Fever >101 Stop: 08/22/16 20:30 Albuterol/Ipratropium (Duoneb Neb) 3 ml HHN Q2HR PRN PRN Reason: Shortness of Breath or Wheeze Cholecalciferol (Vitamin D3) 2,000 iu PO DAILY [facility] Stop: 08/23/16 08:59 Last Admin: 07/03/16 08:58 Dose: Not Given Diphenhydramine HCl (Benadryl 50 Mg/Ml) 50 mg IM Q8HR PRN PRN Reason: Agitation Stop: 08/25/16 12:10 Docusate Sodium (Colace) 100 mg PO BID [facility] Stop: 08/22/16 16:59 Last Admin: 07/03/16 17:48 Dose: Not Given Haloperidol Lactate (Haldol) 5 mg IM Q8HR PRN PRN Reason: Agitation Stop: 08/25/16 12:10 Levothyroxine Sodium (Synthroid) 0.05 mg PO QDAC [facility] Stop: 08/23/16 07:29 Last Admin: 07/04/16 08:02 Dose: Not Given Miscellaneous (Clinical Monitoring) 1 ea MC PRN PRN PRN Reason: RENAL DOSING Stop: 08/31/16 16:27 Morphine Sulfate (Morphine) 1 mg IV Q4H PRN PRN Reason: SEVERE PAIN Stop: 08/22/16 04:40 Last Admin: 07/03/16 02:40 Dose: 1 mg Ondansetron HCl (Zofran Odt) 4 mg PO Q6HR PRN PRN Reason: Nausea / Vomiting Stop: 08/22/16 20:30 Pantoprazole Sodium (Protonix) 40 mg PO DAILY [facility] Stop: 08/23/16 08:59 Last Admin: 07/03/16 08:58 Dose: Not Given Quetiapine Fumarate (Seroquel) 100 mg PO TID [facility] PRN Reason: Protocol Stop: 08/26/16 08:59 Last Admin: 07/03/16 21:38 Dose: Not Given Vitamin B Complex/Vit C/Folic Acid (Vitamin B Complex W/Vitamin C) 1 tab PO DAILY [facility] Stop: 08/23/16 08:59 Last Admin: 07/03/16 10:39 Dose: Not Given - Procedures Procedures: Procedures Procedure Code Date FLUOROSCOPY OF SUP VENA CAVA USING [facility] CONTRAST, GUIDANCE [id number] 06/22/16 INSERTION OF INFUSION DEV INTO SUP VENA CAVA, PERC APPROACH [id number] 06/22/[address] CATHETER IN VE[place] [address] 06/22/16 Assessment/Plan - Problem List Patient Problems: All Active Problems MEDICAL EVALUATION PER DR FRY (Acute)
--- NOTE | 2016-07-04 09:26 | General Progress Note ---
Subjective - Review of Systems Subjective: pt refusing evrything pulled out vascular access yesterday spoke to dr forrest yesterday renal notes noted Objective - Results Result Diagrams: 07/04/16 04:58 07/03/16 07:30 Recent Labs: Laboratory Last Values WBC 4.7 Th/cmm (4.8-10.8) L 07/04/16 04:58 RBC 3.22 Mil/cmm (4.30-5.70) L 07/04/16 04:58 Hgb 9.6 gm/dL (13.2-17.3) L 07/04/16 04:58 Hct 28.2 % (39.0-49.0) L 07/04/16 04:58 MCV 87.3 fl (80-99) 07/04/16 04:58 MCH 29.6 pg (26.0-30.0) 07/04/16 04:58 MCHC Differential 33.9 pg (28.0-36.0) 07/04/16 04:58 RDW 15.7 % (11.5-20.0) 07/04/16 04:58 Plt Count 119 Th/cmm (150-400) L 07/04/16 04:58 MPV 9.4 fl 07/04/16 04:58 Neutrophils % 59.6 % (40.0-80.0) 07/01/16 06:57 Band Neutrophils % 0 % (0-10) 07/04/16 04:58 Lymphocytes % 14.0 % (20.0-50.0) L 07/01/16 06:57 Monocytes % 11.7 % (2.0-10.0) H 07/01/16 06:57 Eosinophils % 14.7 % (0.0-5.0) H 07/01/16 06:57 Basophils % 0.0 % (0.0-2.0) 07/01/16 06:57 Neutrophils (Manual) 58 % (40-80) 07/04/16 04:58 Lymphocytes 19 % (20-50) L 07/04/16 04:58 Monocytes 19 % (2-10) H 07/04/16 04:58 Eosinophils 4 % (0-5) 07/04/16 04:58 Basophils 3 % (0-3) 06/29/16 05:49 Hypochromia 1+ 02/03/17 19:33 Platelet Estimate DECREASED PLATELETS (NORMAL) 07/04/16 04:58 Platelet Morphology NORMAL (NORMAL) 07/03/16 05:30 Polychromasia 1+ 07/03/16 05:30 Anisocytosis 1+ 07/03/16 05:30 RBC Morph Micro Appear ABNORMAL (NORMAL) 07/03/16 05:30 PT 12.7 SECONDS (9.5-11.5) H 07/01/16 06:57 INR 1.26 (0.5-1.4) 07/01/16 06:57 PTT (Actin FS) 28.3 SECONDS (26.0-38.0) 06/28/16 04:38 Specimen Source art 06/22/16 20:03 Sample Site Right Radial 06/22/16 20:03 pH 7.49 (7.35-7.45) H 06/22/16 20:03 pCO2 34.0 mmHg (35.0-45.0) L 06/22/16 20:03 pO2 97.0 mmHg (80.0-100.0) 06/22/16 20:03 HCO3 25.9 mmol/L (20.0-26.0) 06/22/16 20:03 Base Excess 2.8 mmol/L (-3.0-3.0) 06/22/16 20:03 O2 Saturation 98.0 % (92.0-100.0) 06/22/16 20:03 Estuardo Test P 06/22/16 20:03 Vent Rate NA 06/22/16 20:03 Inspired O2 21 06/22/16 20:03 Tidal Volume NA 06/22/16 20:03 PEEP NA 06/22/16 20:03 Pressure (ins/psv/peep) NA 06/22/16 20:03 Critical Value RPINEIRA 06/22/16 20:03 Sodium 131 mEq/L (136-145) L 07/03/16 07:30 Potassium 3.1 mEq/L (3.5-5.1) L 07/03/16 07:30 Chloride 104 mEq/L (98-107) 07/03/16 07:30 Carbon Dioxide 25.7 mEq/L (21.0-31.0) 07/03/16 07:30 Anion Gap 4.4 (7.0-16.0) L 07/03/16 07:30 BUN 41 mg/dL (7-25) H 07/03/16 07:30 Creatinine 2.2 mg/dL (0.7-1.3) H 07/03/16 07:30 Est GFR ( Amer) 41.1 ml/min (>90) 07/03/16 07:30 Est GFR (Non-Af Amer) 34.0 ml/min 07/03/16 07:30 BUN/Creatinine Ratio 18.6 07/03/16 07:30 Glucose 83 mg/dL (70-105) 07/03/16 07:30 Calcium 9.4 mg/dL (8.6-10.3) 07/03/16 07:30 Phosphorus 4.1 mg/dL (2.5-5.0) 07/02/16 06:40 Magnesium 1.8 mg/dL (1.9-2.7) L 07/03/16 07:30 Iron 42 ug/dL (38-169) 06/28/16 04:38 TIBC 269 ug/dL (250-450) 06/28/16 04:38 Iron Saturation 16 % (15-55) 06/28/16 04:38 Unsaturated IBC 227 ug/dL (111-343) 06/28/16 04:38 Ferritin 150 ng/mL (30-400) 06/26/16 08:30 Total Bilirubin 4.0 mg/dL (0.3-1.0) H 07/01/16 06:57 Direct Bilirubin 0.70 mg/dL (0.0-0.2) H 06/28/16 04:38 GGTP 14 IU/L (0-65) 06/28/16 04:38 AST 64 U/L (13-39) H 07/01/16 06:57 ALT 16 U/L (7-52) 07/01/16 06:57 Alkaline Phosphatase 94 U/L (34-104) 07/01/16 06:57 Ammonia 105 umol/L (16-53) H 07/02/16 06:40 Troponin I < 0.01 ng/mL (0.01-0.05) L 06/22/16 19:33 B-Natriuretic Peptide 668.0 pg/mL (5.0-100.0) H 06/22/16 19:33 Total Protein 7.5 gm/dL (6.0-8.3) 07/01/16 06:57 Albumin 2.8 gm/dL (4.2-5.5) L 07/01/16 06:57 Globulin 4.7 gm/dL 07/01/16 06:57 Albumin/Globulin Ratio 0.6 (1.0-1.8) L 07/01/16 06:57 Amylase 28 U/L (29-103) L 07/02/16 06:40 Lipase 31 U/L (11-82) 07/02/16 06:40 Urine Source CLEAN C 06/29/16 05:55 Urine Color YELLOW 06/29/16 05:55 Urine Clarity HAZY (CLEAR) 06/29/16 05:55 Urine pH 5.5 06/29/16 05:55 Ur Specific [place] 1.015 (1.005-1.030) 06/29/16 05:55 Urine Protein 30 mg/dL (NEGATIVE) H 06/29/16 05:55 Urine Glucose (UA) NEGATIVE mg/dL (NEGATIVE) 06/29/16 05:55 Urine Ketones NEGATIVE mg/dL (NEGATIVE) 06/29/16 05:55 Urine Blood NEGATIVE (NEGATIVE) 06/29/16 05:55 Urine Nitrate NEGATIVE (NEGATIVE) 06/29/16 05:55 Urine Bilirubin NEGATIVE (NEGATIVE) 06/29/16 05:55 Urine Urobilinogen 0.2 E.U./dL (0.2 - 1.0) 06/29/16 05:55 Ur Leukocyte Esterase TRACE (NEGATIVE) H 06/29/16 05:55 Urine RBC 0-2 /hpf (0-5) H 06/29/16 05:55 Urine WBC 6-10 /hpf (0-5) H 06/29/16 05:55 Ur Epithelial Cells FEW /lpf (FEW) 06/29/16 05:55 Urine Bacteria MANY /hpf (NONE SEEN) 06/29/16 05:55 Stool Occult Blood POSITIVE (NEGATIVE) 06/24/16 16:00 Random Vancomycin 13.4 ug/mL (5.0-40.0) 06/28/16 04:38 RPR NONREACTIVE (NONREACTIVE) 06/22/16 19:33 Hepatitis A IgM Ab Negative (Negative) 06/29/16 05:49 Hep Bs Antigen Negative (Negative) 06/29/16 05:49 Hep B Core IgM Ab Negative (Negative) 06/29/16 05:49 Hepatitis C Antibody >11.0 s/co ratio (0.0-0.9) H 06/29/16 05:49 Blood Type A POSITIVE 06/28/16 04:38 Antibody Screen NEGATIVE 06/28/16 04:38 Crossmatch See Detail 06/28/16 04:38 - Physical Exam Vitals and I&O: Vital Signs Temp 97.7 F 07/04/16 04:00 Pulse 80 07/04/16 04:00 Resp 20 07/04/16 04:00 BP 124/87 07/04/16 04:00 Pulse Ox 94 07/04/16 04:00 Intake & Output 07/03/16 07/04/16 07/04/16 18:59 06:59 18:59 Intake Total 650 Output Total 300 Balance 350 Intake: Intake, IV Amount 50 Oral 600 Output: Urine 300 Other: # Bowel Movements 3 Stool Characteristics Liquid Active Medications: Current Medications Acetaminophen (Tylenol) 325 mg PO Q6HR PRN PRN Reason: Mild Pain or Fever >101 Stop: 08/22/16 20:30 Albuterol/Ipratropium (Duoneb Neb) 3 ml HHN Q2HR PRN PRN Reason: Shortness of Breath or Wheeze Cholecalciferol (Vitamin D3) 2,000 iu PO DAILY [facility] Stop: 08/23/16 08:59 Last Admin: 07/03/16 08:58 Dose: Not Given Diphenhydramine HCl (Benadryl 50 Mg/Ml) 50 mg IM Q8HR PRN PRN Reason: Agitation Stop: 08/25/16 12:10 Docusate Sodium (Colace) 100 mg PO BID [facility] Stop: 08/22/16 16:59 Last Admin: 07/03/16 17:48 Dose: Not Given Haloperidol Lactate (Haldol) 5 mg IM Q8HR PRN PRN Reason: Agitation Stop: 08/25/16 12:10 Levothyroxine Sodium (Synthroid) 0.05 mg PO QDAC [facility] Stop: 08/23/16 07:29 Last Admin: 07/04/16 08:02 Dose: Not Given Miscellaneous (Clinical Monitoring) 1 ea MC PRN PRN PRN Reason: RENAL DOSING Stop: 08/31/16 16:27 Morphine Sulfate (Morphine) 1 mg IV Q4H PRN PRN Reason: SEVERE PAIN Stop: 08/22/16 04:40 Last Admin: 07/03/16 02:40 Dose: 1 mg Ondansetron HCl (Zofran Odt) 4 mg PO Q6HR PRN PRN Reason: Nausea / Vomiting Stop: 08/22/16 20:30 Pantoprazole Sodium (Protonix) 40 mg PO DAILY [facility] Stop: 08/23/16 08:59 Last Admin: 07/03/16 08:58 Dose: Not Given Quetiapine Fumarate (Seroquel) 100 mg PO TID [facility] PRN Reason: Protocol Stop: 08/26/16 08:59 Last Admin: 07/03/16 21:38 Dose: Not Given Vitamin B Complex/Vit C/Folic Acid (Vitamin B Complex W/Vitamin C) 1 tab PO DAILY [facility] Stop: 08/23/16 08:59 Last Admin: 07/03/16 10:39 Dose: Not Given - Procedures Procedures: Procedures Procedure Code Date FLUOROSCOPY OF SUP VENA CAVA USING OT CONTRAST, GUIDANCE [id number] 06/22/16 INSERTION OF INFUSION DEV INTO SUP VENA CAVA, PERC APPROACH [id number] 06/22/[address] PLACE CATHETER IN VEIN [address] 06/22/16 Assessment/Plan - Problem List Patient Problems: All Active Problems MEDICAL EVALUATION PER DR FRY (Acute) - Assessment Assessment: 1. Cellulitis of legs. 2. Lymphedema of legs. 3. CKD 5 on HD. 4. Morbid obesity. 5 anemia 6 gi bleed 7 psychosis - Plan Plan: ivabx follow up labs id consult
[2016-07-04] MEDS: Vitamin B Complex w/Vitamin C Tab PO SCH (10:29)
[2016-07-04] MEDS: Pantoprazole 40 mg EC Tab PO SCH (10:29)
--- NOTE | 2016-07-04 12:50 | Diagnostic Imaging Report ---
Ultrasound abdomen HISTORY: Elevated liver function tests COMPARISON: None Technique: Sonography of the abdomen was performed in multiple planes. FINDINGS: Exam is limited due to body habitus and bowel gas. The liver demonstrates normal echogenicity and measures 22.4 cm. The liver margins are not well-defined, however, no obvious focal lesions identified. There is suboptimal visualization of the gallbladder. No obvious gallstones identified. The gallbladder wall measures 5 mm. The common bile and was also not visualized. Assessment of the kidneys was also limited on this exam. The right kidney measures 12.2 cm. The left kidney measures 12.4 cm. No evidence of hydronephrosis. The spleen measures 14.2 cm. The abdominal aorta was not well-visualized due to bowel gas. IMPRESSION: Markedly limited exam due to bowel gas and body habitus. Hepatomegaly with liver measuring 22.4 cm Mild Splenomegaly. Suboptimal assessment of the gallbladder. No obvious gallstones identified. There is mild prominence of the gallbladder wall which is nonspecific and may be due to suboptimal distention. If indicated additional views after fasting may also be obtained.
[2016-07-04] MEDS ORDERED: Albumin 25% 25gm/100mL 25 GM/100 ML BTL IV ONE ×2 (14:47→16:00)
--- NOTE | 2016-07-04 14:53 | General Progress Note ---
Subjective - Review of Systems Service Date: 07/04/16 Subjective: very upset, screaming, colonoscopy not done Objective - Results Result Diagrams: 07/04/16 04:58 07/03/16 07:30 Recent Labs: Laboratory Last Values WBC 4.7 Th/cmm (4.8-10.8) L 07/04/16 04:58 RBC 3.22 Mil/cmm (4.30-5.70) L 07/04/16 04:58 Hgb 9.6 gm/dL (13.2-17.3) L 07/04/16 04:58 Hct 28.2 % (39.0-49.0) L 07/04/16 04:58 MCV 87.3 fl (80-99) 07/04/16 04:58 MCH 29.6 pg (26.0-30.0) 07/04/16 04:58 MCHC Differential 33.9 pg (28.0-36.0) 07/04/16 04:58 RDW 15.7 % (11.5-20.0) 07/04/16 04:58 Plt Count 119 Th/cmm (150-400) L 07/04/16 04:58 MPV 9.4 fl 07/04/16 04:58 Neutrophils % 59.6 % (40.0-80.0) 07/01/16 06:57 Band Neutrophils % 0 % (0-10) 07/04/16 04:58 Lymphocytes % 14.0 % (20.0-50.0) L 07/01/16 06:57 Monocytes % 11.7 % (2.0-10.0) H 07/01/16 06:57 Eosinophils % 14.7 % (0.0-5.0) H 07/01/16 06:57 Basophils % 0.0 % (0.0-2.0) 07/01/16 06:57 Neutrophils (Manual) 58 % (40-80) 07/04/16 04:58 Lymphocytes 19 % (20-50) L 07/04/16 04:58 Monocytes 19 % (2-10) H 07/04/16 04:58 Eosinophils 4 % (0-5) 07/04/16 04:58 Basophils 3 % (0-3) 06/29/16 05:49 Hypochromia 1+ 06/22/16 19:33 Platelet Estimate DECREASED PLATELETS (NORMAL) 07/04/16 04:58 Platelet Morphology NORMAL (NORMAL) 07/03/16 05:30 Polychromasia 1+ 07/03/16 05:30 Anisocytosis 1+ 07/03/16 05:30 RBC Morph Micro Appear ABNORMAL (NORMAL) 07/03/16 05:30 PT 12.7 SECONDS (9.5-11.5) H 07/01/16 06:57 INR 1.26 (0.5-1.4) 07/01/16 06:57 PTT (Actin FS) 28.3 SECONDS (26.0-38.0) 06/28/16 04:38 Specimen Source art 06/22/16 20:03 Sample Site Right Radial 06/22/16 20:03 pH 7.49 (7.35-7.45) H 06/22/16 20:03 pCO2 34.0 mmHg (35.0-45.0) L 06/22/16 20:03 pO2 97.0 mmHg (80.0-100.0) 06/22/16 20:03 HCO3 25.9 mmol/L (20.0-26.0) 06/22/16 20:03 Base Excess 2.8 mmol/L (-3.0-3.0) 06/22/16 20:03 O2 Saturation 98.0 % (92.0-100.0) 06/22/16 20:03 Estuardo Test P 06/22/16 20:03 Vent Rate NA 06/22/16 20:03 Inspired O2 21 06/22/16 20:03 Tidal Volume NA 06/22/16 20:03 PEEP NA 06/22/16 20:03 Pressure (ins/psv/peep) NA 06/22/16 20:03 Critical Value RPINEIRA 06/22/16 20:03 Sodium 131 mEq/L (136-145) L 07/03/16 07:30 Potassium 3.1 mEq/L (3.5-5.1) L 07/03/16 07:30 Chloride 104 mEq/L (98-107) 07/03/16 07:30 Carbon Dioxide 25.7 mEq/L (21.0-31.0) 07/03/16 07:30 Anion Gap 4.4 (7.0-16.0) L 07/03/16 07:30 BUN 41 mg/dL (7-25) H 07/03/16 07:30 Creatinine 2.2 mg/dL (0.7-1.3) H 07/03/16 07:30 Est GFR ( Amer) 41.1 ml/min (>90) 07/03/16 07:30 Est GFR (Non-Af Amer) 34.0 ml/min 07/03/16 07:30 BUN/Creatinine Ratio 18.6 07/03/16 07:30 Glucose 83 mg/dL (70-105) 07/03/16 07:30 Calcium 9.4 mg/dL (8.6-10.3) 07/03/16 07:30 Phosphorus 4.1 mg/dL (2.5-5.0) 07/02/16 06:40 Magnesium 1.8 mg/dL (1.9-2.7) L 07/03/16 07:30 Iron 42 ug/dL (38-169) 06/28/16 04:38 TIBC 269 ug/dL (250-450) 06/28/16 04:38 Iron Saturation 16 % (15-55) 06/28/16 04:38 Unsaturated IBC 227 ug/dL (111-343) 06/28/16 04:38 Ferritin 150 ng/mL (30-400) 06/26/16 08:30 Total Bilirubin 4.0 mg/dL (0.3-1.0) H 07/01/16 06:57 Direct Bilirubin 0.70 mg/dL (0.0-0.2) H 06/28/16 04:38 GGTP 14 IU/L (0-65) 06/28/16 04:38 AST 64 U/L (13-39) H 07/01/16 06:57 ALT 16 U/L (7-52) 07/01/16 06:57 Alkaline Phosphatase 94 U/L (34-104) 07/01/16 06:57 Ammonia 105 umol/L (16-53) H 07/02/16 06:40 Troponin I < 0.01 ng/mL (0.01-0.05) L 06/22/16 19:33 B-Natriuretic Peptide 668.0 pg/mL (5.0-100.0) H 06/22/16 19:33 Total Protein 7.5 gm/dL (6.0-8.3) 07/01/16 06:57 Albumin 2.8 gm/dL (4.2-5.5) L 07/01/16 06:57 Globulin 4.7 gm/dL 07/01/16 06:57 Albumin/Globulin Ratio 0.6 (1.0-1.8) L 07/01/16 06:57 Amylase 28 U/L (29-103) L 07/02/16 06:40 Lipase 31 U/L (11-82) 07/02/16 06:40 Urine Source CLEAN C 06/29/16 05:55 Urine Color YELLOW 06/29/16 05:55 Urine Clarity HAZY (CLEAR) 06/29/16 05:55 Urine pH 5.5 06/29/16 05:55 Ur Specific [place] 1.015 (1.005-1.030) 06/29/16 05:55 Urine Protein 30 mg/dL (NEGATIVE) H 06/29/16 05:55 Urine Glucose (UA) NEGATIVE mg/dL (NEGATIVE) 06/29/16 05:55 Urine Ketones NEGATIVE mg/dL (NEGATIVE) 06/29/16 05:55 Urine Blood NEGATIVE (NEGATIVE) 06/29/16 05:55 Urine Nitrate NEGATIVE (NEGATIVE) 06/29/16 05:55 Urine Bilirubin NEGATIVE (NEGATIVE) 06/29/16 05:55 Urine Urobilinogen 0.2 E.U./dL (0.2 - 1.0) 06/29/16 05:55 Ur Leukocyte Esterase TRACE (NEGATIVE) H 06/29/16 05:55 Urine RBC 0-2 /hpf (0-5) H 06/29/16 05:55 Urine WBC 6-10 /hpf (0-5) H 06/29/16 05:55 Ur Epithelial Cells FEW /lpf (FEW) 06/29/16 05:55 Urine Bacteria MANY /hpf (NONE SEEN) 06/29/16 05:55 Stool Occult Blood POSITIVE (NEGATIVE) 06/24/16 16:00 Random Vancomycin 13.4 ug/mL (5.0-40.0) 06/28/16 04:38 RPR NONREACTIVE (NONREACTIVE) 06/22/16 19:33 Hepatitis A IgM Ab Negative (Negative) 06/29/16 05:49 Hep Bs Antigen Negative (Negative) 06/29/16 05:49 Hep B Core IgM Ab Negative (Negative) 06/29/16 05:49 Hepatitis C Antibody >11.0 s/co ratio (0.0-0.9) H 06/29/16 05:49 Blood Type A POSITIVE 06/28/16 04:38 Antibody Screen NEGATIVE 06/28/16 04:38 Crossmatch See Detail 06/28/16 04:38 - Physical Exam Vitals and I&O: Vital Signs Temp 98.2 F 07/04/16 11:51 Pulse 93 07/04/16 11:51 Resp 20 07/04/16 11:51 BP 126/64 07/04/16 11:51 Pulse Ox 95 07/04/16 11:51 Intake & Output 07/03/16 07/04/16 07/04/16 18:59 06:59 18:59 Intake Total 650 Output Total 300 Balance 350 Intake: Intake, IV Amount 50 Oral 600 Output: Urine 300 Other: # Bowel Movements 3 Stool Characteristics Liquid Liquid Active Medications: Current Medications Acetaminophen (Tylenol) 325 mg PO Q6HR PRN PRN Reason: Mild Pain or Fever >101 Stop: 08/22/16 20:30 Albuterol/Ipratropium (Duoneb Neb) 3 ml HHN Q2HR PRN PRN Reason: Shortness of Breath or Wheeze Bisacodyl (Dulcolax 5 Mg Ec Tab) 10 mg PO X1 ONE Stop: 07/04/16 16:01 Cholecalciferol (Vitamin D3) 2,000 iu PO DAILY [facility] Stop: 08/23/16 08:59 Last Admin: 07/04/16 10:29 Dose: Not Given Diphenhydramine HCl (Benadryl 50 Mg/Ml) 50 mg IM Q8HR PRN PRN Reason: Agitation Stop: 08/25/16 12:10 Docusate Sodium (Colace) 100 mg PO BID [facility] Stop: 08/22/16 16:59 Last Admin: 07/04/16 10:29 Dose: Not Given Haloperidol Lactate (Haldol) 5 mg IM Q8HR PRN PRN Reason: Agitation Stop: 08/25/16 12:10 Albumin Human (Albuminar 25%) 25 gm in 100 mls @ 50 mls/hr IV X1 ONE Stop: 07/04/16 16:46 Albumin Human (Albuminar 25%) 25 gm in 100 mls @ 50 mls/hr IV X1 ONE Stop: 07/04/16 16:47 Levothyroxine Sodium (Synthroid) 0.05 mg PO QDAC [facility] Stop: 08/23/16 07:29 Last Admin: 07/04/16 08:02 Dose: Not Given Magnesium Citrate (Citroma) 17.5 gm PO BID [facility] Stop: 07/05/16 09:01 Miscellaneous (Clinical Monitoring) 1 ea MC PRN PRN PRN Reason: RENAL DOSING Stop: 08/31/16 16:27 Morphine Sulfate (Morphine) 1 mg IV Q4H PRN PRN Reason: SEVERE PAIN Stop: 08/22/16 04:40 Last Admin: 07/03/16 02:40 Dose: 1 mg Ondansetron HCl (Zofran Odt) 4 mg PO Q6HR PRN PRN Reason: Nausea / Vomiting Stop: 08/22/16 20:30 Pantoprazole Sodium (Protonix) 40 mg PO DAILY [facility] Stop: 08/23/16 08:59 Last Admin: 07/04/16 10:29 Dose: Not Given Quetiapine Fumarate (Seroquel) 100 mg PO TID [facility] PRN Reason: Protocol Stop: 08/26/16 08:59 Last Admin: 07/04/16 14:41 Dose: Not Given Vitamin B Complex/Vit C/Folic Acid (Vitamin B Complex W/Vitamin C) 1 tab PO DAILY [facility] Stop: 08/23/16 08:59 Last Admin: 07/04/16 10:29 Dose: Not Given General: Alert, Other (angry) HEENT: Atraumatic, Mucous membr. moist/pink Neck: Supple, +2 carotid pulse wo bruit Cardiovascular: Regular rate, Normal S1, Normal S2 Lungs: Clear to auscultation Abdomen: Bowel sounds, Soft Extremities: Edema Neurological: Sensation intact Skin: no Rash Psych/Mental Status: Other (agitated, angry) - Procedures Procedures: Procedures Procedure Code Date FLUOROSCOPY OF SUP VENA CAVA [facility] CONTRAST, GUIDANCE [id number] 06/22/16 INSERTION OF INFUSION DEV INTO SUP VENA CAVA, PERC APPROACH [id number] 06/22/[address] CATHETER IN VEIN [address] 06/22/16 Assessment/Plan - Problem List Patient Problems: All Active Problems MEDICAL EVALUATION PER DR FRY (Acute) - Assessment Assessment: esrd on hd persistent cellulitis b/l lower ext acute on chronic anemia possible gi bleed ohs chronic a. fib hypothyroid anasarca functional quadriplegia chronic venous stasis dermatitis acute decomp psychosis hypokalemia, hypomagnesemia - Plan Plan: pt. pulled out perma cath schedule for PICC line, then transfuse 2 units PRBC hgb/hct slightly improved to 9.6/28.2
[2016-07-04] MEDS ORDERED: Magnesium Citrate 1.75 GM/300 mL Bottle PO SCH (17:00)
[2016-07-04] MEDS ORDERED: Magnesium Citrate 1.75 GM/300 mL Bottle PO ONE (21:00)
--- NOTE | 2016-07-04 22:18 | General Progress Note ---
Subjective - Review of Systems Service Date: 07/04/16 Subjective: EVENTS NOTED. DID NOT COMPLETE BOWEL PREP AGAIN - GOLYTELY WAS AGAIN REFUSED BY PATIENT - STOOLS NOT CLEAR YET. Objective - Results Result Diagrams: 07/04/16 04:58 07/03/16 07:30 Recent Labs: Laboratory Last Values WBC 4.7 Th/cmm (4.8-10.8) L 07/04/16 04:58 RBC 3.22 Mil/cmm (4.30-5.70) L 07/04/16 04:58 Hgb 9.6 gm/dL (13.2-17.3) L 07/04/16 04:58 Hct 28.2 % (39.0-49.0) L 07/04/16 04:58 MCV 87.3 fl (80-99) 07/04/16 04:58 MCH 29.6 pg (26.0-30.0) 07/04/16 04:58 MCHC Differential 33.9 pg (28.0-36.0) 07/04/16 04:58 RDW 15.7 % (11.5-20.0) 07/04/16 04:58 Plt Count 119 Th/cmm (150-400) L 07/04/16 04:58 MPV 9.4 fl 07/04/16 04:58 Neutrophils % 59.6 % (40.0-80.0) 07/01/16 06:57 Band Neutrophils % 0 % (0-10) 07/04/16 04:58 Lymphocytes % 14.0 % (20.0-50.0) L 07/01/16 06:57 Monocytes % 11.7 % (2.0-10.0) H 07/01/16 06:57 Eosinophils % 14.7 % (0.0-5.0) H 07/01/16 06:57 Basophils % 0.0 % (0.0-2.0) 07/01/16 06:57 Neutrophils (Manual) 58 % (40-80) 07/04/16 04:58 Lymphocytes 19 % (20-50) L 07/04/16 04:58 Monocytes 19 % (2-10) H 07/04/16 04:58 Eosinophils 4 % (0-5) 07/04/16 04:58 Basophils 3 % (0-3) 06/29/16 05:49 Hypochromia 1+ 06/22/16 19:33 Platelet Estimate DECREASED PLATELETS (NORMAL) 07/04/16 04:58 Platelet Morphology NORMAL (NORMAL) 07/03/16 05:30 Polychromasia 1+ 07/03/16 05:30 Anisocytosis 1+ 07/03/16 05:30 RBC Morph Micro Appear ABNORMAL (NORMAL) 07/03/16 05:30 PT 12.7 SECONDS (9.5-11.5) H 07/01/16 06:57 INR 1.26 (0.5-1.4) 07/01/16 06:57 PTT (Actin FS) 28.3 SECONDS (26.0-38.0) 06/28/16 04:38 Specimen Source art 06/22/16 20:03 Sample Site Right Radial 06/22/16 20:03 pH 7.49 (7.35-7.45) H 06/22/16 20:03 pCO2 34.0 mmHg (35.0-45.0) L 06/22/16 20:03 pO2 97.0 mmHg (80.0-100.0) 06/22/16 20:03 HCO3 25.9 mmol/L (20.0-26.0) 06/22/16 20:03 Base Excess 2.8 mmol/L (-3.0-3.0) 06/22/16 20:03 O2 Saturation 98.0 % (92.0-100.0) 06/22/16 20:03 Estuardo Test P 06/22/16 20:03 Vent Rate NA 06/22/16 20:03 Inspired O2 21 06/22/16 20:03 Tidal Volume NA 06/22/16 20:03 PEEP NA 06/22/16 20:03 Pressure (ins/psv/peep) NA 06/22/16 20:03 Critical Value RPINEIRA 06/22/16 20:03 Sodium 131 mEq/L (136-145) L 07/03/16 07:30 Potassium 3.1 mEq/L (3.5-5.1) L 07/03/16 07:30 Chloride 104 mEq/L (98-107) 07/03/16 07:30 Carbon Dioxide 25.7 mEq/L (21.0-31.0) 07/03/16 07:30 Anion Gap 4.4 (7.0-16.0) L 07/03/16 07:30 BUN 41 mg/dL (7-25) H 07/03/16 07:30 Creatinine 2.2 mg/dL (0.7-1.3) H 07/03/16 07:30 Est GFR ( Amer) 41.1 ml/min (>90) 07/03/16 07:30 Est GFR (Non-Af Amer) 34.0 ml/min 07/03/16 07:30 BUN/Creatinine Ratio 18.6 07/03/16 07:30 Glucose 83 mg/dL (70-105) 07/03/16 07:30 Calcium 9.4 mg/dL (8.6-10.3) 07/03/16 07:30 Phosphorus 4.1 mg/dL (2.5-5.0) 07/02/16 06:40 Magnesium 1.8 mg/dL (1.9-2.7) L 07/03/16 07:30 Iron 42 ug/dL (38-169) 06/28/16 04:38 TIBC 269 ug/dL (250-450) 06/28/16 04:38 Iron Saturation 16 % (15-55) 06/28/16 04:38 Unsaturated IBC 227 ug/dL (111-343) 06/28/16 04:38 Ferritin 150 ng/mL (30-400) 06/26/16 08:30 Total Bilirubin 4.0 mg/dL (0.3-1.0) H 07/01/16 06:57 Direct Bilirubin 0.70 mg/dL (0.0-0.2) H 06/28/16 04:38 GGTP 14 IU/L (0-65) 06/28/16 04:38 AST 64 U/L (13-39) H 07/01/16 06:57 ALT 16 U/L (7-52) 07/01/16 06:57 Alkaline Phosphatase 94 U/L (34-104) 07/01/16 06:57 Ammonia 105 umol/L (16-53) H 07/02/16 06:40 Troponin I < 0.01 ng/mL (0.01-0.05) L 06/22/16 19:33 B-Natriuretic Peptide 668.0 pg/mL (5.0-100.0) H 06/22/16 19:33 Total Protein 7.5 gm/dL (6.0-8.3) 07/01/16 06:57 Albumin 2.8 gm/dL (4.2-5.5) L 07/01/16 06:57 Globulin 4.7 gm/dL 07/01/16 06:57 Albumin/Globulin Ratio 0.6 (1.0-1.8) L 07/01/16 06:57 Amylase 28 U/L (29-103) L 07/02/16 06:40 Lipase 31 U/L (11-82) 07/02/16 06:40 Urine Source CLEAN C 06/29/16 05:55 Urine Color YELLOW 06/29/16 05:55 Urine Clarity HAZY (CLEAR) 06/29/16 05:55 Urine pH 5.5 06/29/16 05:55 Ur Specific [place] 1.015 (1.005-1.030) 06/29/16 05:55 Urine Protein 30 mg/dL (NEGATIVE) H 06/29/16 05:55 Urine Glucose (UA) NEGATIVE mg/dL (NEGATIVE) 06/29/16 05:55 Urine Ketones NEGATIVE mg/dL (NEGATIVE) 06/29/16 05:55 Urine Blood NEGATIVE (NEGATIVE) 06/29/16 05:55 Urine Nitrate NEGATIVE (NEGATIVE) 06/29/16 05:55 Urine Bilirubin NEGATIVE (NEGATIVE) 06/29/16 05:55 Urine Urobilinogen 0.2 E.U./dL (0.2 - 1.0) 06/29/16 05:55 Ur Leukocyte Esterase TRACE (NEGATIVE) H 06/29/16 05:55 Urine RBC 0-2 /hpf (0-5) H 06/29/16 05:55 Urine WBC 6-10 /hpf (0-5) H 06/29/16 05:55 Ur Epithelial Cells FEW /lpf (FEW) 06/29/16 05:55 Urine Bacteria MANY /hpf (NONE SEEN) 06/29/16 05:55 Stool Occult Blood POSITIVE (NEGATIVE) 06/24/16 16:00 Random Vancomycin 13.4 ug/mL (5.0-40.0) 06/28/16 04:38 RPR NONREACTIVE (NONREACTIVE) 06/22/16 19:33 Hepatitis A IgM Ab Negative (Negative) 06/29/16 05:49 Hep Bs Antigen Negative (Negative) 06/29/16 05:49 Hep B Core IgM Ab Negative (Negative) 06/29/16 05:49 Hepatitis C Antibody >11.0 s/co ratio (0.0-0.9) H 06/29/16 05:49 Blood Type A POSITIVE 06/28/16 04:38 Antibody Screen NEGATIVE 06/28/16 04:38 Crossmatch See Detail 06/28/16 04:38 - Physical Exam Vitals and I&O: Vital Signs Temp 98.3 F 07/04/16 16:00 Pulse 98 07/04/16 16:00 Resp 18 07/04/16 20:00 BP 118/67 07/04/16 16:00 Pulse Ox 98 07/04/16 16:00 Intake & Output 07/04/16 07/04/16 07/05/16 06:59 18:59 06:59 Intake Total 200 Output Total 250 Balance -50 Intake: Oral 200 Output: Urine 250 Other: # Voids 2 # Bowel Movements 1 Stool Characteristics Liquid Liquid Active Medications: Current Medications Acetaminophen (Tylenol) 325 mg PO Q6HR PRN PRN Reason: Mild Pain or Fever >101 Stop: 08/22/16 20:30 Albuterol/Ipratropium (Duoneb Neb) 3 ml HHN Q2HR PRN PRN Reason: Shortness of Breath or Wheeze Cholecalciferol (Vitamin D3) 2,000 iu PO DAILY [facility] Stop: 08/23/16 08:59 Last Admin: 07/04/16 10:29 Dose: Not Given Diphenhydramine HCl (Benadryl 50 Mg/Ml) 50 mg IM Q8HR PRN PRN Reason: Agitation Stop: 08/25/16 12:10 Docusate Sodium (Colace) 100 mg PO BID [facility] Stop: 08/22/16 16:59 Last Admin: 07/04/16 18:18 Dose: Not Given Haloperidol Lactate (Haldol) 5 mg IM Q8HR PRN PRN Reason: Agitation Stop: 08/25/16 12:10 Levothyroxine Sodium (Synthroid) 0.05 mg PO QDAC [facility] Stop: 08/23/16 07:29 Last Admin: 07/04/16 08:02 Dose: Not Given Miscellaneous (Clinical Monitoring) 1 ea MC PRN PRN PRN Reason: RENAL DOSING Stop: 08/31/16 16:27 Morphine Sulfate (Morphine) 1 mg IV Q4H PRN PRN Reason: SEVERE PAIN Stop: 08/22/16 04:40 Last Admin: 07/03/16 02:40 Dose: 1 mg Ondansetron HCl (Zofran Odt) 4 mg PO Q6HR PRN PRN Reason: Nausea / Vomiting Stop: 08/22/16 20:30 Pantoprazole Sodium (Protonix) 40 mg PO DAILY [facility] Stop: 08/23/16 08:59 Last Admin: 07/04/16 10:29 Dose: Not Given Quetiapine Fumarate (Seroquel) 100 mg PO TID [facility] PRN Reason: Protocol Stop: 08/26/16 08:59 Last Admin: 07/04/16 21:53 Dose: Not Given Vitamin B Complex/Vit C/Folic Acid (Vitamin B Complex W/Vitamin C) 1 tab PO DAILY [facility] Stop: 08/23/16 08:59 Last Admin: 07/04/16 10:29 Dose: Not Given General: Alert HEENT: Atraumatic Neck: Supple Cardiovascular: Regular rate Lungs: Clear to auscultation Abdomen: Bowel sounds - Procedures Procedures: Procedures Procedure Code Date FLUOROSCOPY OF SUP VENA CAVA USING [facility] CONTRAST, GUIDANCE [id number] 06/22/16 INSERTION OF INFUSION DEV INTO SUP VENA CAVA, PERC APPROACH [id number] 06/22/16 PLACE CATHETER IN VEIN [address] 06/22/16 Assessment/Plan - Problem List Patient Problems: All Active Problems MEDICAL EVALUATION PER DR FRY (Acute) - Assessment Assessment: 1. ANEMIA AND OCCULT GI BLEED. 2. ESRD - HD DEP. 3. MORBID OBESITY. 4. ALOC WITH ELEVATED NH3 LEVEL - R/O HEP ENCEPH. 5. MILDLY ELEVATED LFT'S - LIKELY CASTELLANOS. - Plan Plan: 1. F/U LIVER LABS. 2. EGD AND COLONOSCOPY TOMORROW - WILL CONTINUE BOWEL PREP. 3. PSYCH F/U. 4. PROTONIX. 5. MONITOR HGB; TRANSFUSE PRN. 6. LACTULOSE AND RIFAXIMIN.
--- NOTE | 2016-07-05 02:31 | Progress Notes ---
HISTORY OF PRESENT ILLNESS: This is a 51-year-old male with history of renal failure and obesity. On [id number], the patient is not really talking to me, sleeping, arousable, but then goes back to sleep and does not participate in a long conversation. PAST PSYCHIATRIC HISTORY: Possible history of schizoaffective disorder. MENTAL STATUS EXAMINATION: Overweight male, somewhat anxious. Mood, not answering. Affect flat. Thought processes, difficult to assess, not talking to me. No current SI or HI at this time, no suicidal gestures. No evidence of psychosis. Insight and judgment are questionable x 2. PROVISIONAL DIAGNOSIS: Unchanged. Medical, as noted. RECOMMENDATIONS AND PLAN: Continue to monitor. No changes at this time. [facility]# [id number]
[2016-07-05 06:52] LABS: ANION GAP 4.2 (7.0-16.0); BUN/CREATININE RATIO 14.4; CALCIUM SERUM 9.5 mg/dL (8.6-10.3); CARBON DIOXIDE 26.7 mEq/L (21.0-31.0); CREATININE - SERUM 1.8 mg/dL (0.7-1.3)
[2016-07-05 07:14] LABS: POTASSIUM SERUM 2.9 mEq/L (3.5-5.1)
[2016-07-05] MEDS ORDERED: Midazolam 1mg/ml 2 ml vial IV ONE ×2 (07:39→07:50)
[2016-07-05] MEDS ORDERED: Lactated Ringer 1,000 ML IV SCH (08:00)
[2016-07-05] MEDS ORDERED: Meperidine 25 mg/mL 1mL Syr IVP PRN (08:00)
--- NOTE | 2016-07-05 08:14 | General Progress Note ---
Subjective - Review of Systems Subjective: pt refusing evrything pulled out vascular access yesterday spoke to dr forrest yesterday renal notes noted Objective - Results Result Diagrams: 07/04/16 04:58 07/05/16 05:40 Recent Labs: Laboratory Last Values WBC 4.7 Th/cmm (4.8-10.8) L 07/04/16 04:58 RBC 3.22 Mil/cmm (4.30-5.70) L 07/04/16 04:58 Hgb 9.6 gm/dL (13.2-17.3) L 07/04/16 04:58 Hct 28.2 % (39.0-49.0) L 07/04/16 04:58 MCV 87.3 fl (80-99) 07/04/16 04:58 MCH 29.6 pg (26.0-30.0) 07/04/16 04:58 MCHC Differential 33.9 pg (28.0-36.0) 07/04/16 04:58 RDW 15.7 % (11.5-20.0) 07/04/16 04:58 Plt Count 119 Th/cmm (150-400) L 07/04/16 04:58 MPV 9.4 fl 07/04/16 04:58 Neutrophils % 59.6 % (40.0-80.0) 07/01/16 06:57 Band Neutrophils % 0 % (0-10) 07/04/16 04:58 Lymphocytes % 14.0 % (20.0-50.0) L 07/01/16 06:57 Monocytes % 11.7 % (2.0-10.0) H 07/01/16 06:57 Eosinophils % 14.7 % (0.0-5.0) H 07/01/16 06:57 Basophils % 0.0 % (0.0-2.0) 07/01/16 06:57 Neutrophils (Manual) 58 % (40-80) 07/04/16 04:58 Lymphocytes 19 % (20-50) L 07/04/16 04:58 Monocytes 19 % (2-10) H 07/04/16 04:58 Eosinophils 4 % (0-5) 07/04/16 04:58 Basophils 3 % (0-3) 06/29/16 05:49 Hypochromia 1+ 02/03/17 19:33 Platelet Estimate DECREASED PLATELETS (NORMAL) 07/04/16 04:58 Platelet Morphology NORMAL (NORMAL) 07/03/16 05:30 Polychromasia 1+ 07/03/16 05:30 Anisocytosis 1+ 07/03/16 05:30 RBC Morph Micro Appear ABNORMAL (NORMAL) 07/03/16 05:30 PT 12.7 SECONDS (9.5-11.5) H 07/01/16 06:57 INR 1.26 (0.5-1.4) 07/01/16 06:57 PTT (Actin FS) 28.3 SECONDS (26.0-38.0) 06/28/16 04:38 Specimen Source art 06/22/16 20:03 Sample Site Right Radial 06/22/16 20:03 pH 7.49 (7.35-7.45) H 06/22/16 20:03 pCO2 34.0 mmHg (35.0-45.0) L 06/22/16 20:03 pO2 97.0 mmHg (80.0-100.0) 06/22/16 20:03 HCO3 25.9 mmol/L (20.0-26.0) 06/22/16 20:03 Base Excess 2.8 mmol/L (-3.0-3.0) 06/22/16 20:03 O2 Saturation 98.0 % (92.0-100.0) 06/22/16 20:03 Estuardo Test P 06/22/16 20:03 Vent Rate NA 06/22/16 20:03 Inspired O2 21 06/22/16 20:03 Tidal Volume NA 06/22/16 20:03 PEEP NA 06/22/16 20:03 Pressure (ins/psv/peep) NA 06/22/16 20:03 Critical Value RPINEIRA 06/22/16 20:03 Sodium 135 mEq/L (136-145) L 07/05/16 05:40 Potassium 2.9 mEq/L (3.5-5.1) L* 07/05/16 05:40 Chloride 107 mEq/L (98-107) 07/05/16 05:40 Carbon Dioxide 26.7 mEq/L (21.0-31.0) 07/05/16 05:40 Anion Gap 4.2 (7.0-16.0) L 07/05/16 05:40 BUN 26 mg/dL (7-25) H 07/05/16 05:40 Creatinine 1.8 mg/dL (0.7-1.3) H 07/05/16 05:40 Est GFR ( Amer) 51.8 ml/min (>90) 07/05/16 05:40 Est GFR (Non-Af Amer) 42.8 ml/min 07/05/16 05:40 BUN/Creatinine Ratio 14.4 07/05/16 05:40 Glucose 85 mg/dL (70-105) 07/05/16 05:40 Calcium 9.5 mg/dL (8.6-10.3) 07/05/16 05:40 Phosphorus 4.1 mg/dL (2.5-5.0) 07/02/16 06:40 Magnesium 1.8 mg/dL (1.9-2.7) L 07/03/16 07:30 Iron 42 ug/dL (38-169) 06/28/16 04:38 TIBC 269 ug/dL (250-450) 06/28/16 04:38 Iron Saturation 16 % (15-55) 06/28/16 04:38 Unsaturated IBC 227 ug/dL (111-343) 06/28/16 04:38 Ferritin 150 ng/mL (30-400) 06/26/16 08:30 Total Bilirubin 4.0 mg/dL (0.3-1.0) H 07/01/16 06:57 Direct Bilirubin 0.70 mg/dL (0.0-0.2) H 06/28/16 04:38 GGTP 14 IU/L (0-65) 06/28/16 04:38 AST 64 U/L (13-39) H 07/01/16 06:57 ALT 16 U/L (7-52) 07/01/16 06:57 Alkaline Phosphatase 94 U/L (34-104) 07/01/16 06:57 Ammonia 105 umol/L (16-53) H 07/02/16 06:40 Troponin I < 0.01 ng/mL (0.01-0.05) L 06/22/16 19:33 B-Natriuretic Peptide 668.0 pg/mL (5.0-100.0) H 06/22/16 19:33 Total Protein 7.5 gm/dL (6.0-8.3) 07/01/16 06:57 Albumin 2.8 gm/dL (4.2-5.5) L 07/01/16 06:57 Globulin 4.7 gm/dL 07/01/16 06:57 Albumin/Globulin Ratio 0.6 (1.0-1.8) L 07/01/16 06:57 Amylase 28 U/L (29-103) L 07/02/16 06:40 Lipase 31 U/L (11-82) 07/02/16 06:40 Urine Source CLEAN C 06/29/16 05:55 Urine Color YELLOW 06/29/16 05:55 Urine Clarity HAZY (CLEAR) 06/29/16 05:55 Urine pH 5.5 06/29/16 05:55 Ur Specific [place] 1.015 (1.005-1.030) 06/29/16 05:55 Urine Protein 30 mg/dL (NEGATIVE) H 06/29/16 05:55 Urine Glucose (UA) NEGATIVE mg/dL (NEGATIVE) 06/29/16 05:55 Urine Ketones NEGATIVE mg/dL (NEGATIVE) 06/29/16 05:55 Urine Blood NEGATIVE (NEGATIVE) 06/29/16 05:55 Urine Nitrate NEGATIVE (NEGATIVE) 06/29/16 05:55 Urine Bilirubin NEGATIVE (NEGATIVE) 06/29/16 05:55 Urine Urobilinogen 0.2 E.U./dL (0.2 - 1.0) 06/29/16 05:55 Ur Leukocyte Esterase TRACE (NEGATIVE) H 06/29/16 05:55 Urine RBC 0-2 /hpf (0-5) H 06/29/16 05:55 Urine WBC 6-10 /hpf (0-5) H 06/29/16 05:55 Ur Epithelial Cells FEW /lpf (FEW) 06/29/16 05:55 Urine Bacteria MANY /hpf (NONE SEEN) 06/29/16 05:55 Stool Occult Blood POSITIVE (NEGATIVE) 06/24/16 16:00 Random Vancomycin 13.4 ug/mL (5.0-40.0) 06/28/16 04:38 RPR NONREACTIVE (NONREACTIVE) 06/22/16 19:33 Hepatitis A IgM Ab Negative (Negative) 06/29/16 05:49 Hep Bs Antigen Negative (Negative) 06/29/16 05:49 Hep B Core IgM Ab Negative (Negative) 06/29/16 05:49 Hepatitis C Antibody >11.0 s/co ratio (0.0-0.9) H 06/29/16 05:49 Blood Type A POSITIVE 06/28/16 04:38 Antibody Screen NEGATIVE 06/28/16 04:38 Crossmatch See Detail 06/28/16 04:38 - Physical Exam Vitals and I&O: Vital Signs Temp 98.3 F 07/04/16 16:00 Pulse 98 07/04/16 16:00 Resp 18 07/04/16 20:00 BP 118/67 07/04/16 16:00 Pulse Ox 98 07/04/16 16:00 Intake & Output 07/04/16 07/05/16 07/05/16 18:59 06:59 18:59 Intake Total 200 480 Output Total 250 450 Balance -50 30 Intake: Oral 200 480 Output: Urine 250 450 Other: # Voids 2 # Bowel Movements 1 4 Stool Characteristics Liquid Active Medications: Current Medications Acetaminophen (Tylenol) 325 mg PO Q6HR PRN PRN Reason: Mild Pain or Fever >101 Stop: 08/22/16 20:30 Albuterol/Ipratropium (Duoneb Neb) 3 ml HHN Q2HR PRN PRN Reason: Shortness of Breath or Wheeze Cholecalciferol (Vitamin D3) 2,000 iu PO DAILY [facility] Stop: 08/23/16 08:59 Last Admin: 07/04/16 10:29 Dose: Not Given Diphenhydramine HCl (Benadryl 50 Mg/Ml) 50 mg IM Q8HR PRN PRN Reason: Agitation Stop: 08/25/16 12:10 Docusate Sodium (Colace) 100 mg PO BID [facility] Stop: 08/22/16 16:59 Last Admin: 07/04/16 18:18 Dose: Not Given Haloperidol Lactate (Haldol) 5 mg IM Q8HR PRN PRN Reason: Agitation Stop: 08/25/16 12:10 Lactated Ringer's (Lactated Ringer) 1,000 mls @ 0 mls/hr IV .Q0M [facility] PRN Reason: TKO Stop: 07/06/16 07:59 Levothyroxine Sodium (Synthroid) 0.05 mg PO QDAC [facility] Stop: 08/23/16 07:29 Last Admin: 07/04/16 08:02 Dose: Not Given Meperidine HCl (Demerol) 12.5 mg IVP UD PRN PRN Reason: POST-OP PAIN Stop: 07/06/16 07:59 Miscellaneous (Clinical Monitoring) 1 ea MC PRN PRN PRN Reason: RENAL DOSING Stop: 08/31/16 16:27 Morphine Sulfate (Morphine) 1 mg IV Q4H PRN PRN Reason: SEVERE PAIN Stop: 08/22/16 04:40 Last Admin: 07/03/16 02:40 Dose: 1 mg Ondansetron HCl (Zofran Odt) 4 mg PO Q6HR PRN PRN Reason: Nausea / Vomiting Stop: 08/22/16 20:30 Ondansetron HCl (Zofran) 4 mg IV X1 PRN PRN Reason: Nausea / Vomiting Stop: 07/06/16 07:59 Pantoprazole Sodium (Protonix) 40 mg PO DAILY [facility] Stop: 08/23/16 08:59 Last Admin: 07/04/16 10:29 Dose: Not Given Quetiapine Fumarate (Seroquel) 100 mg PO TID [facility] PRN Reason: Protocol Stop: 08/26/16 08:59 Last Admin: 07/04/16 21:53 Dose: Not Given Vitamin B Complex/Vit C/Folic Acid (Vitamin B Complex W/Vitamin C) 1 tab PO DAILY [facility] Stop: 08/23/16 08:59 Last Admin: 07/04/16 10:29 Dose: Not Given - Procedures Procedures: Procedures Procedure Code Date FLUOROSCOPY OF SUP VENA CAVA USING [facility] CONTRAST, GUIDANCE [id number] 06/22/16 INSERTION OF INFUSION DEV INTO SUP VENA CAVA, PERC APPROACH [id number] 06/22/[address] CATHETER IN VEIN [address] 06/22/16 Assessment/Plan - Problem List Patient Problems: All Active Problems MEDICAL EVALUATION PER DR FRY (Acute) - Assessment Assessment: 1. Cellulitis of legs. 2. Lymphedema of legs. 3. CKD 5 on HD. 4. Morbid obesity. 5 anemia 6 gi bleed 7 psychosis - Plan Plan: ivabx follow up labs id consult
[2016-07-05] MEDS ORDERED: Thrombin, Bovine 5,000 IU Vial TP ONE (08:42)
[2016-07-05] MEDS ORDERED: Gelatin Sponge 100cm Spg TP ONE (08:42)
[2016-07-05] MEDS: Pantoprazole 40 mg EC Tab PO SCH (09:56)
[2016-07-05] MEDS: Levothyroxine 0.05 Mg Tab PO SCH (09:56)
[2016-07-05] MEDS: Vitamin B Complex w/Vitamin C Tab PO SCH (09:57)
[2016-07-05] MEDS ORDERED: Potassium Chloride 20 mEq ER Tab PO ONE (12:00)
[2016-07-05 12:31] LABS: HEMATOCRIT 27.4 % (39.0-49.0); MEAN CELL VOLUME 89.2 fl (80-99); MEAN CORPUSCULAR HEMOGLOBIN 29.3 pg (26.0-30.0); MEAN CORPUSCULAR HGB CONC 32.8 pg (28.0-36.0); PLATELET COUNT 116 Th/cmm (150-400); RED BLOOD COUNT 3.07 Mil/cmm (4.30-5.70); RED CELL DISTRIBUTION WIDTH 15.5 % (11.5-20.0); WHITE BLOOD COUNT 4.7 Th/cmm (4.8-10.8)
[2016-07-05] MEDS: Aspirin 325 mg EC PO SCH (12:37)
--- NOTE | 2016-07-05 12:54 | General Progress Note ---
Subjective - Review of Systems Service Date: 07/05/16 Subjective: still upset, had placement of left avg Objective - Results Result Diagrams: 07/05/16 12:15 07/05/16 05:40 Recent Labs: Laboratory Last Values WBC 4.7 Th/cmm (4.8-10.8) L 07/05/16 12:15 RBC 3.07 Mil/cmm (4.30-5.70) L 07/05/16 12:15 Hgb 9.0 gm/dL (13.2-17.3) L 07/05/16 12:15 Hct 27.4 % (39.0-49.0) L 07/05/16 12:15 MCV 89.2 fl (80-99) 07/05/16 12:15 MCH 29.3 pg (26.0-30.0) 07/05/16 12:15 MCHC Differential 32.8 pg (28.0-36.0) 07/05/16 12:15 RDW 15.5 % (11.5-20.0) 07/05/16 12:15 Plt Count 116 Th/cmm (150-400) L 07/05/16 12:15 MPV 9.0 fl 07/05/16 12:15 Neutrophils % 59.6 % (40.0-80.0) 07/01/16 06:57 Band Neutrophils % 0 % (0-10) 07/04/16 04:58 Lymphocytes % 14.0 % (20.0-50.0) L 07/01/16 06:57 Monocytes % 11.7 % (2.0-10.0) H 07/01/16 06:57 Eosinophils % 14.7 % (0.0-5.0) H 07/01/16 06:57 Basophils % 0.0 % (0.0-2.0) 07/01/16 06:57 Neutrophils (Manual) 58 % (40-80) 07/04/16 04:58 Lymphocytes 19 % (20-50) L 07/04/16 04:58 Monocytes 19 % (2-10) H 07/04/16 04:58 Eosinophils 4 % (0-5) 07/04/16 04:58 Basophils 3 % (0-3) 06/29/16 05:49 Hypochromia 1+ 06/22/16 19:33 Platelet Estimate DECREASED PLATELETS (NORMAL) 07/04/16 04:58 Platelet Morphology NORMAL (NORMAL) 07/03/16 05:30 Polychromasia 1+ 07/03/16 05:30 Anisocytosis 1+ 07/03/16 05:30 RBC Morph Micro Appear ABNORMAL (NORMAL) 07/03/16 05:30 PT 12.7 SECONDS (9.5-11.5) H 07/01/16 06:57 INR 1.26 (0.5-1.4) 07/01/16 06:57 PTT (Actin FS) 28.3 SECONDS (26.0-38.0) 06/28/16 04:38 Specimen Source art 06/22/16 20:03 Sample Site Right Radial 06/22/16 20:03 pH 7.49 (7.35-7.45) H 06/22/16 20:03 pCO2 34.0 mmHg (35.0-45.0) L 06/22/16 20:03 pO2 97.0 mmHg (80.0-100.0) 06/22/16 20:03 HCO3 25.9 mmol/L (20.0-26.0) 06/22/16 20:03 Base Excess 2.8 mmol/L (-3.0-3.0) 06/22/16 20:03 O2 Saturation 98.0 % (92.0-100.0) 06/22/16 20:03 Estuardo Test P 06/22/16 20:03 Vent Rate NA 06/22/16 20:03 Inspired O2 21 06/22/16 20:03 Tidal Volume NA 06/22/16 20:03 PEEP NA 06/22/16 20:03 Pressure (ins/psv/peep) NA 06/22/16 20:03 Critical Value RPINEIRA 06/22/16 20:03 Sodium 135 mEq/L (136-145) L 07/05/16 05:40 Potassium 2.9 mEq/L (3.5-5.1) L* 07/05/16 05:40 Chloride 107 mEq/L (98-107) 07/05/16 05:40 Carbon Dioxide 26.7 mEq/L (21.0-31.0) 07/05/16 05:40 Anion Gap 4.2 (7.0-16.0) L 07/05/16 05:40 BUN 26 mg/dL (7-25) H 07/05/16 05:40 Creatinine 1.8 mg/dL (0.7-1.3) H 07/05/16 05:40 Est GFR ( Amer) 51.8 ml/min (>90) 07/05/16 05:40 Est GFR (Non-Af Amer) 42.8 ml/min 07/05/16 05:40 BUN/Creatinine Ratio 14.4 07/05/16 05:40 Glucose 85 mg/dL (70-105) 07/05/16 05:40 Calcium 9.5 mg/dL (8.6-10.3) 07/05/16 05:40 Phosphorus 4.1 mg/dL (2.5-5.0) 07/02/16 06:40 Magnesium 1.8 mg/dL (1.9-2.7) L 07/03/16 07:30 Iron 42 ug/dL (38-169) 06/28/16 04:38 TIBC 269 ug/dL (250-450) 06/28/16 04:38 Iron Saturation 16 % (15-55) 06/28/16 04:38 Unsaturated IBC 227 ug/dL (111-343) 06/28/16 04:38 Ferritin 150 ng/mL (30-400) 06/26/16 08:30 Total Bilirubin 4.0 mg/dL (0.3-1.0) H 07/01/16 06:57 Direct Bilirubin 0.70 mg/dL (0.0-0.2) H 06/28/16 04:38 GGTP 14 IU/L (0-65) 06/28/16 04:38 AST 64 U/L (13-39) H 07/01/16 06:57 ALT 16 U/L (7-52) 07/01/16 06:57 Alkaline Phosphatase 94 U/L (34-104) 07/01/16 06:57 Ammonia 105 umol/L (16-53) H 07/02/16 06:40 Troponin I < 0.01 ng/mL (0.01-0.05) L 06/22/16 19:33 B-Natriuretic Peptide 668.0 pg/mL (5.0-100.0) H 06/22/16 19:33 Total Protein 7.5 gm/dL (6.0-8.3) 07/01/16 06:57 Albumin 2.8 gm/dL (4.2-5.5) L 07/01/16 06:57 Globulin 4.7 gm/dL 07/01/16 06:57 Albumin/Globulin Ratio 0.6 (1.0-1.8) L 07/01/16 06:57 Amylase 28 U/L (29-103) L 07/02/16 06:40 Lipase 31 U/L (11-82) 07/02/16 06:40 Urine Source CLEAN C 06/29/16 05:55 Urine Color YELLOW 06/29/16 05:55 Urine Clarity HAZY (CLEAR) 06/29/16 05:55 Urine pH 5.5 06/29/16 05:55 Ur Specific [place] 1.015 (1.005-1.030) 06/29/16 05:55 Urine Protein 30 mg/dL (NEGATIVE) H 06/29/16 05:55 Urine Glucose (UA) NEGATIVE mg/dL (NEGATIVE) 06/29/16 05:55 Urine Ketones NEGATIVE mg/dL (NEGATIVE) 06/29/16 05:55 Urine Blood NEGATIVE (NEGATIVE) 06/29/16 05:55 Urine Nitrate NEGATIVE (NEGATIVE) 06/29/16 05:55 Urine Bilirubin NEGATIVE (NEGATIVE) 06/29/16 05:55 Urine Urobilinogen 0.2 E.U./dL (0.2 - 1.0) 06/29/16 05:55 Ur Leukocyte Esterase TRACE (NEGATIVE) H 06/29/16 05:55 Urine RBC 0-2 /hpf (0-5) H 06/29/16 05:55 Urine WBC 6-10 /hpf (0-5) H 06/29/16 05:55 Ur Epithelial Cells FEW /lpf (FEW) 06/29/16 05:55 Urine Bacteria MANY /hpf (NONE SEEN) 06/29/16 05:55 Stool Occult Blood POSITIVE (NEGATIVE) 06/24/16 16:00 Random Vancomycin 13.4 ug/mL (5.0-40.0) 06/28/16 04:38 RPR NONREACTIVE (NONREACTIVE) 06/22/16 19:33 Hepatitis A IgM Ab Negative (Negative) 06/29/16 05:49 Hep Bs Antigen Negative (Negative) 06/29/16 05:49 Hep B Core IgM Ab Negative (Negative) 06/29/16 05:49 Hepatitis C Antibody >11.0 s/co ratio (0.0-0.9) H 06/29/16 05:49 Blood Type A POSITIVE 06/28/16 04:38 Antibody Screen NEGATIVE 06/28/16 04:38 Crossmatch See Detail 06/28/16 04:38 - Physical Exam Vitals and I&O: Vital Signs Temp 98.3 F 07/04/16 16:00 Pulse 98 07/04/16 16:00 Resp 18 07/04/16 20:00 BP 118/67 07/04/16 16:00 Pulse Ox 98 07/04/16 16:00 Intake & Output 07/04/16 07/05/16 07/05/16 18:59 06:59 18:59 Intake Total 200 480 Output Total 250 450 Balance -50 30 Intake: Oral 200 480 Output: Urine 250 450 Other: # Voids 2 # Bowel Movements 1 4 Stool Characteristics Liquid Active Medications: Current Medications Acetaminophen (Tylenol) 325 mg PO Q6HR PRN PRN Reason: Mild Pain or Fever >101 Stop: 08/22/16 20:30 Albuterol/Ipratropium (Duoneb Neb) 3 ml HHN Q2HR PRN PRN Reason: Shortness of Breath or Wheeze Aspirin (Ecotrin) 325 mg PO DAILY [facility] Stop: 09/03/16 09:14 Last Admin: 07/05/16 12:37 Dose: 325 mg Cholecalciferol (Vitamin D3) 2,000 iu PO DAILY [facility] Stop: 08/23/16 08:59 Last Admin: 07/05/16 09:56 Dose: Not Given Diphenhydramine HCl (Benadryl 50 Mg/Ml) 50 mg IM Q8HR PRN PRN Reason: Agitation Stop: 08/25/16 12:10 Docusate Sodium (Colace) 100 mg PO BID [facility] Stop: 08/22/16 16:59 Last Admin: 07/05/16 09:56 Dose: Not Given Haloperidol Lactate (Haldol) 5 mg IM Q8HR PRN PRN Reason: Agitation Stop: 08/25/16 12:10 Lactated Ringer's (Lactated Ringer) 1,000 mls @ 0 mls/hr IV .Q0M MARQUISE PRN Reason: TKO Stop: 07/06/16 07:59 Levothyroxine Sodium (Synthroid) 0.05 mg PO QDAC [facility] Stop: 08/23/16 07:29 Last Admin: 07/05/16 09:56 Dose: Not Given Meperidine HCl (Demerol) 12.5 mg IVP UD PRN PRN Reason: POST-OP PAIN Stop: 07/06/16 07:59 Miscellaneous (Clinical Monitoring) 1 ea MC PRN PRN PRN Reason: RENAL DOSING Stop: 08/31/16 16:27 Morphine Sulfate (Morphine) 1 mg IV Q4H PRN PRN Reason: SEVERE PAIN Stop: 08/22/16 04:40 Last Admin: 07/03/16 02:40 Dose: 1 mg Ondansetron HCl (Zofran Odt) 4 mg PO Q6HR PRN PRN Reason: Nausea / Vomiting Stop: 08/22/16 20:30 Pantoprazole Sodium (Protonix) 40 mg PO DAILY [facility] Stop: 08/23/16 08:59 Last Admin: 07/05/16 09:56 Dose: Not Given Quetiapine Fumarate (Seroquel) 100 mg PO TID MARQUISE PRN Reason: Protocol Stop: 08/26/16 08:59 Last Admin: 07/05/16 09:57 Dose: Not Given Vitamin B Complex/Vit C/Folic Acid (Vitamin B Complex W/Vitamin C) 1 tab PO DAILY [facility] Stop: 08/23/16 08:59 Last Admin: 07/05/16 09:57 Dose: Not Given General: Alert, Moderate distress HEENT: Atraumatic, Mucous membr. moist/pink Neck: Supple, +2 carotid pulse wo bruit Cardiovascular: Regular rate, Normal S1, Normal S2 (few rhonchi) Lungs: Other (few rhonchi) Abdomen: Bowel sounds, Soft Extremities: Edema Neurological: Sensation intact Skin: no Rash Psych/Mental Status: Other (angry) - Procedures Procedures: Procedures Procedure Code Date FLUOROSCOPY OF SUP VENA CAVA USING [facility] CONTRAST, GUIDANCE [id number] 06/22/16 INSERTION OF INFUSION DEV INTO SUP VENA CAVA, PERC APPROACH [id number] 06/22/[address] PL[address] CATHETER IN VEIN [address] 06/22/16 Assessment/Plan - Problem List Patient Problems: All Active Problems MEDICAL EVALUATION PER DR FRY (Acute) - Assessment Assessment: esrd on hd persistent cellulitis b/l lower ext acute on chronic anemia possible gi bleed ohs chronic a. fib hypothyroid anasarca functional quadriplegia chronic venous stasis dermatitis acute decomp psychosis hypokalemia, hypomagnesemia s/p left avg - Plan Plan: hgb/hct slightly improved to 9/27.4 aagree w/ K replacement for hd in am
[2016-07-05 13:03] LABS: ANISOCYTOSIS 1+; BASOPHIL 2 % (0-3); EOSINOPHIL 10 % (0-5); NEUTROPHILS 59 % (40-80); PLATELET ESTIMATE DECREASED PLATELETS (NORMAL); PLATELET MORPHOLOGY NORMAL (NORMAL); TOTAL CELLS COUNTED 100
--- NOTE | 2016-07-05 19:13 | Operative Report ---
PREOPERATIVE DIAGNOSES: 1. End-stage renal disease. 2. Diabetes mellitus. 3. Hypertension. 4. Morbid obesity. POSTOPERATIVE DIAGNOSES: 1. End-stage renal disease. 2. Diabetes mellitus. 3. Hypertension. 4. Morbid obesity. OPERATION DONE: Placement of left arm AV shunt (bovine). SURGEON: Irlanda Willingham M.D. ANESTHESIA: MAC. ANESTHESIOLOGIST: Richie Schmitz M.D. ESTIMATED BLOOD LOSS: 10 mL. DESCRIPTION OF PROCEDURE: The patient was given IV sedation. The patient has sleep apnea and very difficult to sedate because of this condition. The patient moves about frequently. The left upper extremity was prepped with Betadine and draped in appropriate manner. 1% lidocaine was used to infiltrate the antecubital fossa. An incision was made and search for adequate vein was done. No adequate-sized vein was found whatsoever. A separate incision was made in the axillary area following infiltration of 1% lidocaine with epinephrine. The axillary vein was exposed. This measured about 6 mm. 5000 units of heparin was given intravenously. The vein was tied proximally and occluded distally and venotomy was made on its anterior wall. A bovine graft was then anastomosed in an end-to-side fashion utilizing running suture of 5-0 Prolene. Following release of clamps, there was no leak at the anastomosis. The graft was ____ anterior wall and brought out under the subcutaneous tissues in the left arm towards the antecubital fossa. The artery was clamped proximal and distal. This measured about 4 mm. An arteriotomy was made at the anterolateral wall and the graft was cut in angle to fit the arteriotomy. 5-0 Prolene in continuous fashion was used to complete this anastomosis. Following release of clamps, there was excellent flow palpated distally. The anastomosis sites were treated with application of Gelfoam soaked in thrombin. The incisions were closed with running suture of 3-0 Vicryl subcutaneously and the skin was closed with subcuticular suture of the same material. Sterile dressing was placed over this. The patient tolerated the procedure well. JOB# [id number]
[2016-07-05] MEDS: Morphine Sulfate 2 mg/mL 1mL Syr IV PRN (21:57)
[2016-07-06 06:57] LABS: ANION GAP 6.9 (7.0-16.0); BUN/CREATININE RATIO 12.4; CALCIUM SERUM 9.1 mg/dL (8.6-10.3); CARBON DIOXIDE 27.1 mEq/L (21.0-31.0); CREATININE - SERUM 2.1 mg/dL (0.7-1.3); MAGNESIUM 2.1 mg/dL (1.9-2.7)
[2016-07-06 07:23] LABS: % BASOPHILS 3.6 % (0.0-2.0); % EOSINOPHILS 10.2 % (0.0-5.0); % LYMPHOCYTES 18.2 % (20.0-50.0); % MONOCYTES 13.7 % (2.0-10.0); % NEUTROPHILS 54.3 % (40.0-80.0); HEMATOCRIT 25.8 % (39.0-49.0); HEMOGLOBIN 8.7 gm/dL (13.2-17.3); MEAN CELL VOLUME 87.1 fl (80-99); MEAN CORPUSCULAR HEMOGLOBIN 29.4 pg (26.0-30.0); MEAN CORPUSCULAR HGB CONC 33.7 pg (28.0-36.0); MEAN PLATELET VOLUME 10.1 fl; NEUTROPHILE ABSOLUTE 2.5 Th/cmm (1.8-8.0); PLATELET COUNT 110 Th/cmm (150-400); RED BLOOD COUNT 2.96 Mil/cmm (4.30-5.70); RED CELL DISTRIBUTION WIDTH 15.3 % (11.5-20.0); WHITE BLOOD COUNT 4.6 Th/cmm (4.8-10.8)
--- NOTE | 2016-07-06 08:01 | Progress Notes ---
SUBJECTIVE: The patient was seen in his bed. The patient still complaining ____ upset and wants to be moved back to long-term acute care. OBJECTIVE: HEENT: Head is atraumatic, normocephalic. Eyes: Pupils equally round and reactive. CARDIOVASCULAR: S1 and S2 heard irregularly, but controlled. PULMONARY: Scattered rhonchi heard bilaterally. GASTROINTESTINAL: Soft, nontender. The patient is obese. GENITOURINARY: The patient still denies any pain. MUSCULOSKELETAL: Bilateral lower extremities with edema. SKIN: Fragile and no rash. NEUROLOGICAL: Intact sensation. ASSESSMENT: 1. End-stage renal disease, hemodialysis dependent. 2. Bilateral lower extremity persistent cellulitis. 3. Chronic anemia. 4. Chronic AFib. 5. Hypothyroidism. 6. Anasarca. 7. Quadriplegia. 8. Schizophrenia. PLAN: We will keep the patient for monitoring here in the med-surg floor. We will still going to continue for hemodialysis and we will continue to monitor the patient's hemoglobin and hematocrit. JOB# [id number]
--- NOTE | 2016-07-06 08:10 | General Progress Note ---
Subjective - Review of Systems Subjective: pt refusing evrything pulled out vascular access yesterday spoke to dr forrest yesterday renal notes noted Objective - Results Result Diagrams: 07/06/16 06:00 07/06/16 06:00 Recent Labs: Laboratory Last Values WBC 4.6 Th/cmm (4.8-10.8) L 07/06/16 06:00 RBC 2.96 Mil/cmm (4.30-5.70) L 07/06/16 06:00 Hgb 8.7 gm/dL (13.2-17.3) L 07/06/16 06:00 Hct 25.8 % (39.0-49.0) L 07/06/16 06:00 MCV 87.1 fl (80-99) 07/06/16 06:00 MCH 29.4 pg (26.0-30.0) 07/06/16 06:00 MCHC Differential 33.7 pg (28.0-36.0) 07/06/16 06:00 RDW 15.3 % (11.5-20.0) 07/06/16 06:00 Plt Count 110 Th/cmm (150-400) L 07/06/16 06:00 MPV 10.1 fl 07/06/16 06:00 Neutrophils % 54.3 % (40.0-80.0) 07/06/16 06:00 Band Neutrophils % 0 % (0-10) 07/04/16 04:58 Lymphocytes % 18.2 % (20.0-50.0) L 07/06/16 06:00 Monocytes % 13.7 % (2.0-10.0) H 07/06/16 06:00 Eosinophils % 10.2 % (0.0-5.0) H 07/06/16 06:00 Basophils % 3.6 % (0.0-2.0) H 07/06/16 06:00 Neutrophils (Manual) 59 % (40-80) 07/05/16 12:15 Lymphocytes 13 % (20-50) L 07/05/16 12:15 Monocytes 16 % (2-10) H 07/05/16 12:15 Eosinophils 10 % (0-5) H 07/05/16 12:15 Basophils 2 % (0-3) 07/05/16 12:15 Hypochromia 1+ 06/22/16 19:33 Platelet Estimate DECREASED PLATELETS (NORMAL) 07/05/16 12:15 Platelet Morphology NORMAL (NORMAL) 07/05/16 12:15 Polychromasia 1+ 07/03/16 05:30 Anisocytosis 1+ 07/05/16 12:15 RBC Morph Micro Appear ABNORMAL (NORMAL) 07/05/16 12:15 PT 12.7 SECONDS (9.5-11.5) H 07/01/16 06:57 INR 1.26 (0.5-1.4) 07/01/16 06:57 PTT (Actin FS) 28.3 SECONDS (26.0-38.0) 06/28/16 04:38 Specimen Source art 06/22/16 20:03 Sample Site Right Radial 06/22/16 20:03 pH 7.49 (7.35-7.45) H 06/22/16 20:03 pCO2 34.0 mmHg (35.0-45.0) L 06/22/16 20:03 pO2 97.0 mmHg (80.0-100.0) 06/22/16 20:03 HCO3 25.9 mmol/L (20.0-26.0) 06/22/16 20:03 Base Excess 2.8 mmol/L (-3.0-3.0) 06/22/16 20:03 O2 Saturation 98.0 % (92.0-100.0) 06/22/16 20:03 Estuardo Test P 06/22/16 20:03 Vent Rate NA 06/22/16 20:03 Inspired O2 21 06/22/16 20:03 Tidal Volume NA 06/22/16 20:03 PEEP NA 06/22/16 20:03 Pressure (ins/psv/peep) NA 06/22/16 20:03 Critical Value RPINEIRA 06/22/16 20:03 Sodium 134 mEq/L (136-145) L 07/06/16 06:00 Potassium 3.0 mEq/L (3.5-5.1) L 07/06/16 06:00 Chloride 103 mEq/L (98-107) 07/06/16 06:00 Carbon Dioxide 27.1 mEq/L (21.0-31.0) 07/06/16 06:00 Anion Gap 6.9 (7.0-16.0) L 07/06/16 06:00 BUN 26 mg/dL (7-25) H 07/06/16 06:00 Creatinine 2.1 mg/dL (0.7-1.3) H 07/06/16 06:00 Est GFR ( Amer) 43.4 ml/min (>90) 07/06/16 06:00 Est GFR (Non-Af Amer) 35.9 ml/min 07/06/16 06:00 BUN/Creatinine Ratio 12.4 07/06/16 06:00 Glucose 91 mg/dL (70-105) 07/06/16 06:00 Calcium 9.1 mg/dL (8.6-10.3) 07/06/16 06:00 Phosphorus 4.1 mg/dL (2.5-5.0) 07/02/16 06:40 Magnesium 2.1 mg/dL (1.9-2.7) 07/06/16 06:00 Iron 42 ug/dL (38-169) 06/28/16 04:38 TIBC 269 ug/dL (250-450) 06/28/16 04:38 Iron Saturation 16 % (15-55) 06/28/16 04:38 Unsaturated IBC 227 ug/dL (111-343) 06/28/16 04:38 Ferritin 150 ng/mL (30-400) 06/26/16 08:30 Total Bilirubin 4.0 mg/dL (0.3-1.0) H 07/01/16 06:57 Direct Bilirubin 0.70 mg/dL (0.0-0.2) H 06/28/16 04:38 GGTP 14 IU/L (0-65) 06/28/16 04:38 AST 64 U/L (13-39) H 07/01/16 06:57 ALT 16 U/L (7-52) 07/01/16 06:57 Alkaline Phosphatase 94 U/L (34-104) 07/01/16 06:57 Ammonia 105 umol/L (16-53) H 07/02/16 06:40 Troponin I < 0.01 ng/mL (0.01-0.05) L 06/22/16 19:33 B-Natriuretic Peptide 668.0 pg/mL (5.0-100.0) H 06/22/16 19:33 Total Protein 7.5 gm/dL (6.0-8.3) 07/01/16 06:57 Albumin 2.8 gm/dL (4.2-5.5) L 07/01/16 06:57 Globulin 4.7 gm/dL 07/01/16 06:57 Albumin/Globulin Ratio 0.6 (1.0-1.8) L 07/01/16 06:57 Amylase 28 U/L (29-103) L 07/02/16 06:40 Lipase 31 U/L (11-82) 07/02/16 06:40 Urine Source CLEAN C 06/29/16 05:55 Urine Color YELLOW 06/29/16 05:55 Urine Clarity HAZY (CLEAR) 06/29/16 05:55 Urine pH 5.5 06/29/16 05:55 Ur Specific [place] 1.015 (1.005-1.030) 06/29/16 05:55 Urine Protein 30 mg/dL (NEGATIVE) H 06/29/16 05:55 Urine Glucose (UA) NEGATIVE mg/dL (NEGATIVE) 06/29/16 05:55 Urine Ketones NEGATIVE mg/dL (NEGATIVE) 06/29/16 05:55 Urine Blood NEGATIVE (NEGATIVE) 06/29/16 05:55 Urine Nitrate NEGATIVE (NEGATIVE) 06/29/16 05:55 Urine Bilirubin NEGATIVE (NEGATIVE) 06/29/16 05:55 Urine Urobilinogen 0.2 E.U./dL (0.2 - 1.0) 06/29/16 05:55 Ur Leukocyte Esterase TRACE (NEGATIVE) H 06/29/16 05:55 Urine RBC 0-2 /hpf (0-5) H 06/29/16 05:55 Urine WBC 6-10 /hpf (0-5) H 06/29/16 05:55 Ur Epithelial Cells FEW /lpf (FEW) 06/29/16 05:55 Urine Bacteria MANY /hpf (NONE SEEN) 06/29/16 05:55 Stool Occult Blood POSITIVE (NEGATIVE) 06/24/16 16:00 Random Vancomycin 13.4 ug/mL (5.0-40.0) 06/28/16 04:38 RPR NONREACTIVE (NONREACTIVE) 06/22/16 19:33 Hepatitis A IgM Ab Negative (Negative) 06/29/16 05:49 Hep Bs Antigen Negative (Negative) 06/29/16 05:49 Hep B Core IgM Ab Negative (Negative) 06/29/16 05:49 Hepatitis C Antibody >11.0 s/co ratio (0.0-0.9) H 06/29/16 05:49 Blood Type A POSITIVE 06/28/16 04:38 Antibody Screen NEGATIVE 06/28/16 04:38 Crossmatch See Detail 06/28/16 04:38 - Physical Exam Vitals and I&O: Vital Signs Temp 99.9 F 07/06/16 00:00 Pulse 129 07/06/16 00:00 Resp 19 07/06/16 00:00 BP 90/59 07/06/16 00:00 Pulse Ox 97 07/06/16 00:00 Intake & Output 07/05/16 07/06/16 07/06/16 18:59 06:59 18:59 Intake Total 480 1600 Output Total 300 2700 Balance 180 -1100 Intake: Oral 480 1600 Output: Urine 300 2700 Other: # Voids 2 # Bowel Movements 1 Stool Characteristics Liquid Active Medications: Current Medications Acetaminophen (Tylenol) 325 mg PO Q6HR PRN PRN Reason: Mild Pain or Fever >101 Stop: 08/22/16 20:30 Albuterol/Ipratropium (Duoneb Neb) 3 ml HHN Q2HR PRN PRN Reason: Shortness of Breath or Wheeze Aspirin (Ecotrin) 325 mg PO DAILY [facility] Stop: 09/03/16 09:14 Last Admin: 07/05/16 12:37 Dose: 325 mg Cholecalciferol (Vitamin D3) 2,000 iu PO DAILY [facility] Stop: 08/23/16 08:59 Last Admin: 07/05/16 09:56 Dose: Not Given Diphenhydramine HCl (Benadryl 50 Mg/Ml) 50 mg IM Q8HR PRN PRN Reason: Agitation Stop: 08/25/16 12:10 Docusate Sodium (Colace) 100 mg PO BID [facility] Stop: 08/22/16 16:59 Last Admin: 07/05/16 19:28 Dose: Not Given Haloperidol Lactate (Haldol) 5 mg IM Q8HR PRN PRN Reason: Agitation Stop: 08/25/16 12:10 Levothyroxine Sodium (Synthroid) 0.05 mg PO QDAC [facility] Stop: 08/23/16 07:29 Last Admin: 07/05/16 09:56 Dose: Not Given Miscellaneous (Clinical Monitoring) 1 ea MC PRN PRN PRN Reason: RENAL DOSING Stop: 08/31/16 16:27 Morphine Sulfate (Morphine) 1 mg IV Q4H PRN PRN Reason: SEVERE PAIN Stop: 08/22/16 04:40 Last Admin: 07/05/16 21:57 Dose: 1 mg Ondansetron HCl (Zofran Odt) 4 mg PO Q6HR PRN PRN Reason: Nausea / Vomiting Stop: 08/22/16 20:30 Pantoprazole Sodium (Protonix) 40 mg PO DAILY [facility] Stop: 08/23/16 08:59 Last Admin: 07/05/16 09:56 Dose: Not Given Quetiapine Fumarate (Seroquel) 100 mg PO TID [facility] PRN Reason: Protocol Stop: 08/26/16 08:59 Last Admin: 07/05/16 20:40 Dose: Not Given Vitamin B Complex/Vit C/Folic Acid (Vitamin B Complex W/Vitamin C) 1 tab PO DAILY [facility] Stop: 08/23/16 08:59 Last Admin: 07/05/16 09:57 Dose: Not Given - Procedures Procedures: Procedures Procedure Code Date FLUOROSCOPY OF SUP VENA CAVA USING [facility] CONTRAST, GUIDANCE [id number] 06/22/16 INSERTION OF INFUSION DEV INTO SUP VENA CAVA, PERC APPROACH [id number] 06/22/[address] CATHETER IN [place] [address] 06/22/16 Assessment/Plan - Problem List Patient Problems: All Active Problems MEDICAL EVALUATION PER DR FRY (Acute) - Assessment Assessment: 1. Cellulitis of legs. 2. Lymphedema of legs. 3. CKD 5 on HD. 4. Morbid obesity. 5 anemia 6 gi bleed 7 psychosis - Plan Plan: ivabx follow up labs id consult
--- NOTE | 2016-07-06 08:44 | General Progress Note ---
Subjective - Review of Systems Service Date: 07/06/16 Events since last encounter: shunt patent incisions clean HR in 130's Cardiology consult Objective - Results Result Diagrams: 07/06/16 06:00 07/06/16 06:00 Recent Labs: Laboratory Last Values WBC 4.6 Th/cmm (4.8-10.8) L 07/06/16 06:00 RBC 2.96 Mil/cmm (4.30-5.70) L 07/06/16 06:00 Hgb 8.7 gm/dL (13.2-17.3) L 07/06/16 06:00 Hct 25.8 % (39.0-49.0) L 07/06/16 06:00 MCV 87.1 fl (80-99) 07/06/16 06:00 MCH 29.4 pg (26.0-30.0) 07/06/16 06:00 MCHC Differential 33.7 pg (28.0-36.0) 07/06/16 06:00 RDW 15.3 % (11.5-20.0) 07/06/16 06:00 Plt Count 110 Th/cmm (150-400) L 07/06/16 06:00 MPV 10.1 fl 07/06/16 06:00 Neutrophils % 54.3 % (40.0-80.0) 07/06/16 06:00 Band Neutrophils % 0 % (0-10) 07/04/16 04:58 Lymphocytes % 18.2 % (20.0-50.0) L 07/06/16 06:00 Monocytes % 13.7 % (2.0-10.0) H 07/06/16 06:00 Eosinophils % 10.2 % (0.0-5.0) H 07/06/16 06:00 Basophils % 3.6 % (0.0-2.0) H 07/06/16 06:00 Neutrophils (Manual) 59 % (40-80) 07/05/16 12:15 Lymphocytes 13 % (20-50) L 07/05/16 12:15 Monocytes 16 % (2-10) H 07/05/16 12:15 Eosinophils 10 % (0-5) H 07/05/16 12:15 Basophils 2 % (0-3) 07/05/16 12:15 Hypochromia 1+ 02/03/17 19:33 Platelet Estimate DECREASED PLATELETS (NORMAL) 07/05/16 12:15 Platelet Morphology NORMAL (NORMAL) 07/05/16 12:15 Polychromasia 1+ 07/03/16 05:30 Anisocytosis 1+ 07/05/16 12:15 RBC Morph Micro Appear ABNORMAL (NORMAL) 07/05/16 12:15 PT 12.7 SECONDS (9.5-11.5) H 07/01/16 06:57 INR 1.26 (0.5-1.4) 07/01/16 06:57 PTT (Actin FS) 28.3 SECONDS (26.0-38.0) 06/28/16 04:38 Specimen Source art 06/22/16 20:03 Sample Site Right Radial 06/22/16 20:03 pH 7.49 (7.35-7.45) H 06/22/16 20:03 pCO2 34.0 mmHg (35.0-45.0) L 06/22/16 20:03 pO2 97.0 mmHg (80.0-100.0) 06/22/16 20:03 HCO3 25.9 mmol/L (20.0-26.0) 06/22/16 20:03 Base Excess 2.8 mmol/L (-3.0-3.0) 06/22/16 20:03 O2 Saturation 98.0 % (92.0-100.0) 06/22/16 20:03 Estuardo Test P 06/22/16 20:03 Vent Rate NA 06/22/16 20:03 Inspired O2 21 06/22/16 20:03 Tidal Volume NA 06/22/16 20:03 PEEP NA 06/22/16 20:03 Pressure (ins/psv/peep) NA 06/22/16 20:03 Critical Value RPINEIRA 06/22/16 20:03 Sodium 134 mEq/L (136-145) L 07/06/16 06:00 Potassium 3.0 mEq/L (3.5-5.1) L 07/06/16 06:00 Chloride 103 mEq/L (98-107) 07/06/16 06:00 Carbon Dioxide 27.1 mEq/L (21.0-31.0) 07/06/16 06:00 Anion Gap 6.9 (7.0-16.0) L 07/06/16 06:00 BUN 26 mg/dL (7-25) H 07/06/16 06:00 Creatinine 2.1 mg/dL (0.7-1.3) H 07/06/16 06:00 Est GFR ( Amer) 43.4 ml/min (>90) 07/06/16 06:00 Est GFR (Non-Af Amer) 35.9 ml/min 07/06/16 06:00 BUN/Creatinine Ratio 12.4 07/06/16 06:00 Glucose 91 mg/dL (70-105) 07/06/16 06:00 Calcium 9.1 mg/dL (8.6-10.3) 07/06/16 06:00 Phosphorus 4.1 mg/dL (2.5-5.0) 07/02/16 06:40 Magnesium 2.1 mg/dL (1.9-2.7) 07/06/16 06:00 Iron 42 ug/dL (38-169) 06/28/16 04:38 TIBC 269 ug/dL (250-450) 06/28/16 04:38 Iron Saturation 16 % (15-55) 06/28/16 04:38 Unsaturated IBC 227 ug/dL (111-343) 06/28/16 04:38 Ferritin 150 ng/mL (30-400) 06/26/16 08:30 Total Bilirubin 4.0 mg/dL (0.3-1.0) H 07/01/16 06:57 Direct Bilirubin 0.70 mg/dL (0.0-0.2) H 06/28/16 04:38 GGTP 14 IU/L (0-65) 06/28/16 04:38 AST 64 U/L (13-39) H 07/01/16 06:57 ALT 16 U/L (7-52) 07/01/16 06:57 Alkaline Phosphatase 94 U/L (34-104) 07/01/16 06:57 Ammonia 105 umol/L (16-53) H 07/02/16 06:40 Troponin I < 0.01 ng/mL (0.01-0.05) L 06/22/16 19:33 B-Natriuretic Peptide 668.0 pg/mL (5.0-100.0) H 06/22/16 19:33 Total Protein 7.5 gm/dL (6.0-8.3) 07/01/16 06:57 Albumin 2.8 gm/dL (4.2-5.5) L 07/01/16 06:57 Globulin 4.7 gm/dL 07/01/16 06:57 Albumin/Globulin Ratio 0.6 (1.0-1.8) L 07/01/16 06:57 Amylase 28 U/L (29-103) L 07/02/16 06:40 Lipase 31 U/L (11-82) 07/02/16 06:40 Urine Source CLEAN C 06/29/16 05:55 Urine Color YELLOW 06/29/16 05:55 Urine Clarity HAZY (CLEAR) 06/29/16 05:55 Urine pH 5.5 06/29/16 05:55 Ur Specific [place] 1.015 (1.005-1.030) 06/29/16 05:55 Urine Protein 30 mg/dL (NEGATIVE) H 06/29/16 05:55 Urine Glucose (UA) NEGATIVE mg/dL (NEGATIVE) 06/29/16 05:55 Urine Ketones NEGATIVE mg/dL (NEGATIVE) 06/29/16 05:55 Urine Blood NEGATIVE (NEGATIVE) 06/29/16 05:55 Urine Nitrate NEGATIVE (NEGATIVE) 06/29/16 05:55 Urine Bilirubin NEGATIVE (NEGATIVE) 06/29/16 05:55 Urine Urobilinogen 0.2 E.U./dL (0.2 - 1.0) 06/29/16 05:55 Ur Leukocyte Esterase TRACE (NEGATIVE) H 06/29/16 05:55 Urine RBC 0-2 /hpf (0-5) H 06/29/16 05:55 Urine WBC 6-10 /hpf (0-5) H 06/29/16 05:55 Ur Epithelial Cells FEW /lpf (FEW) 06/29/16 05:55 Urine Bacteria MANY /hpf (NONE SEEN) 06/29/16 05:55 Stool Occult Blood POSITIVE (NEGATIVE) 06/24/16 16:00 Random Vancomycin 13.4 ug/mL (5.0-40.0) 06/28/16 04:38 RPR NONREACTIVE (NONREACTIVE) 06/22/16 19:33 Hepatitis A IgM Ab Negative (Negative) 06/29/16 05:49 Hep Bs Antigen Negative (Negative) 06/29/16 05:49 Hep B Core IgM Ab Negative (Negative) 06/29/16 05:49 Hepatitis C Antibody >11.0 s/co ratio (0.0-0.9) H 06/29/16 05:49 Blood Type A POSITIVE 06/28/16 04:38 Antibody Screen NEGATIVE 06/28/16 04:38 Crossmatch See Detail 06/28/16 04:38 - Physical Exam Vitals and I&O: Vital Signs Temp 99.9 F 07/06/16 00:00 Pulse 129 07/06/16 00:00 Resp 19 07/06/16 00:00 BP 90/59 07/06/16 00:00 Pulse Ox 97 07/06/16 00:00 Intake & Output 07/05/16 07/06/16 07/06/16 18:59 06:59 18:59 Intake Total 480 1600 Output Total 300 2700 Balance 180 -1100 Intake: Oral 480 1600 Output: Urine 300 2700 Other: # Voids 2 # Bowel Movements 1 Stool Characteristics Liquid Active Medications: Current Medications Acetaminophen (Tylenol) 325 mg PO Q6HR PRN PRN Reason: Mild Pain or Fever >101 Stop: 08/22/16 20:30 Albuterol/Ipratropium (Duoneb Neb) 3 ml HHN Q2HR PRN PRN Reason: Shortness of Breath or Wheeze Aspirin (Ecotrin) 325 mg PO DAILY [facility] Stop: 09/03/16 09:14 Last Admin: 07/05/16 12:37 Dose: 325 mg Cholecalciferol (Vitamin D3) 2,000 iu PO DAILY [facility] Stop: 08/23/16 08:59 Last Admin: 07/05/16 09:56 Dose: Not Given Diphenhydramine HCl (Benadryl 50 Mg/Ml) 50 mg IM Q8HR PRN PRN Reason: Agitation Stop: 08/25/16 12:10 Docusate Sodium (Colace) 100 mg PO BID [facility] Stop: 08/22/16 16:59 Last Admin: 07/05/16 19:28 Dose: Not Given Haloperidol Lactate (Haldol) 5 mg IM Q8HR PRN PRN Reason: Agitation Stop: 08/25/16 12:10 Levothyroxine Sodium (Synthroid) 0.05 mg PO QDAC [facility] Stop: 08/23/16 07:29 Last Admin: 07/05/16 09:56 Dose: Not Given Miscellaneous (Clinical Monitoring) 1 ea MC PRN PRN PRN Reason: RENAL DOSING Stop: 08/31/16 16:27 Morphine Sulfate (Morphine) 1 mg IV Q4H PRN PRN Reason: SEVERE PAIN Stop: 08/22/16 04:40 Last Admin: 07/05/16 21:57 Dose: 1 mg Ondansetron HCl (Zofran Odt) 4 mg PO Q6HR PRN PRN Reason: Nausea / Vomiting Stop: 08/22/16 20:30 Pantoprazole Sodium (Protonix) 40 mg PO DAILY [facility] Stop: 08/23/16 08:59 Last Admin: 07/05/16 09:56 Dose: Not Given Quetiapine Fumarate (Seroquel) 100 mg PO TID [facility] PRN Reason: Protocol Stop: 08/26/16 08:59 Last Admin: 07/05/16 20:40 Dose: Not Given Vitamin B Complex/Vit C/Folic Acid (Vitamin B Complex W/Vitamin C) 1 tab PO DAILY [facility] Stop: 08/23/16 08:59 Last Admin: 07/05/16 09:57 Dose: Not Given - Procedures Procedures: Procedures Procedure Code Date FLUOROSCOPY OF SUP VENA CAVA USING OT CONTRAST, GUIDANCE [id number] 06/22/16 INSERTION OF INFUSION DEV INTO SUP VENA CAVA, PERC APPROACH 40CC45B 06/22/16 PL[address] CATHETER IN VE[place] [address] 06/22/16 Assessment/Plan - Problem List Patient Problems: All Active Problems MEDICAL EVALUATION PER DR FRY (Acute)
[2016-07-06] MEDS: Aspirin 325 mg EC PO SCH (09:00)
[2016-07-06] MEDS: Levothyroxine 0.05 Mg Tab PO SCH (09:01)
[2016-07-06] MEDS: Pantoprazole 40 mg EC Tab PO SCH (09:01)
[2016-07-06] MEDS: Vitamin B Complex w/Vitamin C Tab PO SCH (09:01)
[2016-07-06] MEDS: Morphine Sulfate 2 mg/mL 1mL Syr IV PRN ×2 (09:09→16:57)
[2016-07-06] MEDS: Diltiazem 30 mg Tab PO SCH ×2 (13:00→18:30)
--- NOTE | 2016-07-06 13:00 | General Progress Note ---
Subjective - Review of Systems Service Date: 07/06/16 Subjective: still upset, had placement of left avg Objective - Results Result Diagrams: 07/06/16 06:00 07/06/16 06:00 Recent Labs: Laboratory Last Values WBC 4.6 Th/cmm (4.8-10.8) L 07/06/16 06:00 RBC 2.96 Mil/cmm (4.30-5.70) L 07/06/16 06:00 Hgb 8.7 gm/dL (13.2-17.3) L 07/06/16 06:00 Hct 25.8 % (39.0-49.0) L 07/06/16 06:00 MCV 87.1 fl (80-99) 07/06/16 06:00 MCH 29.4 pg (26.0-30.0) 07/06/16 06:00 MCHC Differential 33.7 pg (28.0-36.0) 07/06/16 06:00 RDW 15.3 % (11.5-20.0) 07/06/16 06:00 Plt Count 110 Th/cmm (150-400) L 07/06/16 06:00 MPV 10.1 fl 07/06/16 06:00 Neutrophils % 54.3 % (40.0-80.0) 07/06/16 06:00 Band Neutrophils % 0 % (0-10) 07/04/16 04:58 Lymphocytes % 18.2 % (20.0-50.0) L 07/06/16 06:00 Monocytes % 13.7 % (2.0-10.0) H 07/06/16 06:00 Eosinophils % 10.2 % (0.0-5.0) H 07/06/16 06:00 Basophils % 3.6 % (0.0-2.0) H 07/06/16 06:00 Neutrophils (Manual) 59 % (40-80) 07/05/16 12:15 Lymphocytes 13 % (20-50) L 07/05/16 12:15 Monocytes 16 % (2-10) H 07/05/16 12:15 Eosinophils 10 % (0-5) H 07/05/16 12:15 Basophils 2 % (0-3) 07/05/16 12:15 Hypochromia 1+ 06/22/16 19:33 Platelet Estimate DECREASED PLATELETS (NORMAL) 07/05/16 12:15 Platelet Morphology NORMAL (NORMAL) 07/05/16 12:15 Polychromasia 1+ 07/03/16 05:30 Anisocytosis 1+ 07/05/16 12:15 RBC Morph Micro Appear ABNORMAL (NORMAL) 07/05/16 12:15 PT 12.7 SECONDS (9.5-11.5) H 07/01/16 06:57 INR 1.26 (0.5-1.4) 07/01/16 06:57 PTT (Actin FS) 28.3 SECONDS (26.0-38.0) 06/28/16 04:38 Specimen Source art 06/22/16 20:03 Sample Site Right Radial 06/22/16 20:03 pH 7.49 (7.35-7.45) H 06/22/16 20:03 pCO2 34.0 mmHg (35.0-45.0) L 06/22/16 20:03 pO2 97.0 mmHg (80.0-100.0) 06/22/16 20:03 HCO3 25.9 mmol/L (20.0-26.0) 06/22/16 20:03 Base Excess 2.8 mmol/L (-3.0-3.0) 06/22/16 20:03 O2 Saturation 98.0 % (92.0-100.0) 06/22/16 20:03 Estuardo Test P 06/22/16 20:03 Vent Rate NA 06/22/16 20:03 Inspired O2 21 06/22/16 20:03 Tidal Volume NA 06/22/16 20:03 PEEP NA 06/22/16 20:03 Pressure (ins/psv/peep) NA 06/22/16 20:03 Critical Value RPINEIRA 06/22/16 20:03 Sodium 134 mEq/L (136-145) L 07/06/16 06:00 Potassium 3.0 mEq/L (3.5-5.1) L 07/06/16 06:00 Chloride 103 mEq/L (98-107) 07/06/16 06:00 Carbon Dioxide 27.1 mEq/L (21.0-31.0) 07/06/16 06:00 Anion Gap 6.9 (7.0-16.0) L 07/06/16 06:00 BUN 26 mg/dL (7-25) H 07/06/16 06:00 Creatinine 2.1 mg/dL (0.7-1.3) H 07/06/16 06:00 Est GFR ( Amer) 43.4 ml/min (>90) 07/06/16 06:00 Est GFR (Non-Af Amer) 35.9 ml/min 07/06/16 06:00 BUN/Creatinine Ratio 12.4 07/06/16 06:00 Glucose 91 mg/dL (70-105) 07/06/16 06:00 Calcium 9.1 mg/dL (8.6-10.3) 07/06/16 06:00 Phosphorus 4.1 mg/dL (2.5-5.0) 07/02/16 06:40 Magnesium 2.1 mg/dL (1.9-2.7) 07/06/16 06:00 Iron 42 ug/dL (38-169) 06/28/16 04:38 TIBC 269 ug/dL (250-450) 06/28/16 04:38 Iron Saturation 16 % (15-55) 06/28/16 04:38 Unsaturated IBC 227 ug/dL (111-343) 06/28/16 04:38 Ferritin 150 ng/mL (30-400) 06/26/16 08:30 Total Bilirubin 4.0 mg/dL (0.3-1.0) H 07/01/16 06:57 Direct Bilirubin 0.70 mg/dL (0.0-0.2) H 06/28/16 04:38 GGTP 14 IU/L (0-65) 06/28/16 04:38 AST 64 U/L (13-39) H 07/01/16 06:57 ALT 16 U/L (7-52) 07/01/16 06:57 Alkaline Phosphatase 94 U/L (34-104) 07/01/16 06:57 Ammonia 105 umol/L (16-53) H 07/02/16 06:40 Troponin I < 0.01 ng/mL (0.01-0.05) L 06/22/16 19:33 B-Natriuretic Peptide 668.0 pg/mL (5.0-100.0) H 06/22/16 19:33 Total Protein 7.5 gm/dL (6.0-8.3) 07/01/16 06:57 Albumin 2.8 gm/dL (4.2-5.5) L 07/01/16 06:57 Globulin 4.7 gm/dL 07/01/16 06:57 Albumin/Globulin Ratio 0.6 (1.0-1.8) L 07/01/16 06:57 Amylase 28 U/L (29-103) L 07/02/16 06:40 Lipase 31 U/L (11-82) 07/02/16 06:40 Urine Source CLEAN C 06/29/16 05:55 Urine Color YELLOW 06/29/16 05:55 Urine Clarity HAZY (CLEAR) 06/29/16 05:55 Urine pH 5.5 06/29/16 05:55 Ur Specific [place] 1.015 (1.005-1.030) 06/29/16 05:55 Urine Protein 30 mg/dL (NEGATIVE) H 06/29/16 05:55 Urine Glucose (UA) NEGATIVE mg/dL (NEGATIVE) 06/29/16 05:55 Urine Ketones NEGATIVE mg/dL (NEGATIVE) 06/29/16 05:55 Urine Blood NEGATIVE (NEGATIVE) 06/29/16 05:55 Urine Nitrate NEGATIVE (NEGATIVE) 06/29/16 05:55 Urine Bilirubin NEGATIVE (NEGATIVE) 06/29/16 05:55 Urine Urobilinogen 0.2 E.U./dL (0.2 - 1.0) 06/29/16 05:55 Ur Leukocyte Esterase TRACE (NEGATIVE) H 06/29/16 05:55 Urine RBC 0-2 /hpf (0-5) H 06/29/16 05:55 Urine WBC 6-10 /hpf (0-5) H 06/29/16 05:55 Ur Epithelial Cells FEW /lpf (FEW) 06/29/16 05:55 Urine Bacteria MANY /hpf (NONE SEEN) 06/29/16 05:55 Stool Occult Blood POSITIVE (NEGATIVE) 06/24/16 16:00 Random Vancomycin 13.4 ug/mL (5.0-40.0) 06/28/16 04:38 RPR NONREACTIVE (NONREACTIVE) 06/22/16 19:33 Hepatitis A IgM Ab Negative (Negative) 06/29/16 05:49 Hep Bs Antigen Negative (Negative) 06/29/16 05:49 Hep B Core IgM Ab Negative (Negative) 06/29/16 05:49 Hepatitis C Antibody >11.0 s/co ratio (0.0-0.9) H 06/29/16 05:49 Blood Type A POSITIVE 06/28/16 04:38 Antibody Screen NEGATIVE 06/28/16 04:38 Crossmatch See Detail 06/28/16 04:38 - Physical Exam Vitals and I&O: Vital Signs Temp 99.9 F 07/06/16 00:00 Pulse 129 07/06/16 00:00 Resp 19 07/06/16 00:00 BP 90/59 07/06/16 00:00 Pulse Ox 97 07/06/16 00:00 Intake & Output 07/05/16 07/06/16 07/06/16 18:59 06:59 18:59 Intake Total 480 1600 Output Total 300 2700 Balance 180 -1100 Intake: Oral 480 1600 Output: Urine 300 2700 Other: # Voids 2 # Bowel Movements 1 Stool Characteristics Liquid Active Medications: Current Medications Acetaminophen (Tylenol) 325 mg PO Q6HR PRN PRN Reason: Mild Pain or Fever >101 Stop: 08/22/16 20:30 Albuterol/Ipratropium (Duoneb Neb) 3 ml HHN Q2HR PRN PRN Reason: Shortness of Breath or Wheeze Aspirin (Ecotrin) 325 mg PO DAILY [facility] Stop: 09/03/16 09:14 Last Admin: 07/06/16 09:00 Dose: 325 mg Cholecalciferol (Vitamin D3) 2,000 iu PO DAILY [facility] Stop: 08/23/16 08:59 Last Admin: 07/06/16 09:01 Dose: 2,000 iu Diltiazem HCl (Cardizem) 60 mg PO Q6HR [facility] Stop: 09/04/16 11:59 Diphenhydramine HCl (Benadryl 50 Mg/Ml) 50 mg IM Q8HR PRN PRN Reason: Agitation Stop: 08/25/16 12:10 Docusate Sodium (Colace) 100 mg PO BID [facility] Stop: 08/22/16 16:59 Last Admin: 07/06/16 09:01 Dose: 100 mg Haloperidol Lactate (Haldol) 5 mg IM Q8HR PRN PRN Reason: Agitation Stop: 08/25/16 12:10 Potassium Chloride 30 meq/ (Sodium Chloride) 265 mls @ 88.333 mls/hr IV X1 [facility] Stop: 09/04/16 12:59 Levothyroxine Sodium (Synthroid) 0.05 mg PO QDAC [facility] Stop: 08/23/16 07:29 Last Admin: 07/06/16 09:01 Dose: 0.05 mg Miscellaneous (Clinical Monitoring) 1 ea MC PRN PRN PRN Reason: RENAL DOSING Stop: 08/31/16 16:27 Morphine Sulfate (Morphine) 1 mg IV Q4H PRN PRN Reason: SEVERE PAIN Stop: 08/22/16 04:40 Last Admin: 07/06/16 09:09 Dose: 1 mg Ondansetron HCl (Zofran Odt) 4 mg PO Q6HR PRN PRN Reason: Nausea / Vomiting Stop: 08/22/16 20:30 Pantoprazole Sodium (Protonix) 40 mg PO DAILY [facility] Stop: 08/23/16 08:59 Last Admin: 07/06/16 09:01 Dose: 40 mg Quetiapine Fumarate (Seroquel) 100 mg PO TID [facility] PRN Reason: Protocol Stop: 08/26/16 08:59 Last Admin: 07/06/16 09:00 Dose: 100 mg Vitamin B Complex/Vit C/Folic Acid (Vitamin B Complex W/Vitamin C) 1 tab PO DAILY [facility] Stop: 08/23/16 08:59 Last Admin: 07/06/16 09:01 Dose: 1 tab General: Alert, No acute distress, Other (uncooperative) HEENT: Atraumatic, Mucous membr. moist/pink Neck: Supple, +2 carotid pulse wo bruit Cardiovascular: Normal S1, Normal S2, Other (taschycardic) Lungs: Other (rhonchi) Abdomen: Bowel sounds, Soft Extremities: Edema Neurological: Sensation intact Skin: no Rash Psych/Mental Status: Other (anxious, periods of agitation) - Procedures Procedures: Procedures Procedure Code Date FLUOROSCOPY OF SUP VENA CAVA USING [facility] CONTRAST, GUIDANCE [id number] 06/22/16 INSERTION OF INFUSION DEV INTO SUP VENA CAVA, PERC APPROACH [id number] 06/22/[address] CATHETER IN [place] [address] 06/22/16 Assessment/Plan - Problem List Patient Problems: All Active Problems MEDICAL EVALUATION PER DR FRY (Acute) - Assessment Assessment: esrd on hd persistent cellulitis b/l lower ext acute on chronic anemia possible gi bleed ohs chronic a. fib hypothyroid anasarca functional quadriplegia chronic venous stasis dermatitis acute decomp psychosis hypokalemia, hypomagnesemia s/p left avg - Plan Plan: hgb/hct slightly improved to 8.7/25.8 agree w/ K replacement for hd in am
[2016-07-07] MEDS: Diltiazem 30 mg Tab PO SCH ×4 (02:00→17:19)
--- NOTE | 2016-07-07 05:33 | Consultation ---
Patient of Dr. Valadez. HISTORY AND PHYSICAL: This is a 51-year-old morbidly obese male patient who was recently discharged from [facility]. The patient started having GI bleed with cellulitis of both lower extremities and the patient is admitted. No history of PND or orthopnea. The patient during the hospital stay developed supraventricular tachycardia and hence, Cardiology consult was requested. The patient is very agitated as well as angry. PAST MEDICAL HISTORY: Morbid obesity, CKD stage V, end-stage renal disease on dialysis, atrial fibrillation, hypertension, hypothyroid, peripheral vascular disease, stasis dermatitis, bilateral lymphedema, bilateral cellulitis of the legs, iron deficiency anemia, thrombocytopenia. FAMILY HISTORY: Unremarkable. SOCIAL HISTORY: No history of smoking, alcohol abuse. ALLERGIES: None. PHYSICAL EXAMINATION: VITAL SIGNS: Blood pressure 150/80, pulse 70, respirations 20. HEAD: Normocephalic. No lumps or bumps. EYES: Pupils equal, reactive to light. Fundi show AV nicking. Sclerae white. Conjunctivae pink. NECK: Carotid 2+. Normal upstroke. JVD flat. Thyroid not palpable. Lymph nodes not palpable. CHEST: Shows increased AP diameter. No kyphosis, scoliosis. LUNGS: Bilateral bronchovesicular breath sounds. HEART: PMI is in fifth intercostal space with lateral to midclavicular line. S1, S2. S3, S4. Systolic murmur grade 2/6 in the lower left sternal border without radiation. ABDOMEN: Soft. Liver, spleen not palpable. No organomegaly. Bowel sounds are active. NEUROLOGIC: No focal neurological deficit. EXTREMITIES: Peripheral pulses difficult to palpate. Bilateral lymphedema with cellulitis. CLINICAL IMPRESSION: 1. Supraventricular tachycardia. 2. Chronic kidney disease, stage V. 3. End-stage renal disease, on dialysis. 4. Atrial fibrillation, paroxysmal. 5. Hypertension. 6. Hypothyroid. 7. Peripheral vascular disease. 8. Iron deficiency anemia. 9. Thrombocytopenia. 10. Chronic bilateral lymphedema. 11. Bilateral cellulitis of the legs. 12. Morbid obesity. PLAN: The patient will be started on Cardizem in view of palpitation. The patient is to continue dialysis with ultrafiltration. JOB# [id number]
[2016-07-07] MEDS: Morphine Sulfate 2 mg/mL 1mL Syr IV PRN ×2 (05:46→20:41)
[2016-07-07 06:53] LABS: ANION GAP 9.3 (7.0-16.0); BUN/CREATININE RATIO 10.9; CALCIUM SERUM 8.7 mg/dL (8.6-10.3); CARBON DIOXIDE 27.2 mEq/L (21.0-31.0); CREATININE - SERUM 2.3 mg/dL (0.7-1.3); POTASSIUM SERUM 3.5 mEq/L (3.5-5.1)
[2016-07-07] MEDS: Vitamin B Complex w/Vitamin C Tab PO SCH (08:22)
[2016-07-07] MEDS: Pantoprazole 40 mg EC Tab PO SCH (08:22)
[2016-07-07] MEDS: Aspirin 325 mg EC PO SCH (08:22)
[2016-07-07] MEDS: Levothyroxine 0.05 Mg Tab PO SCH (08:22)
[2016-07-07 09:55] LABS: % LYMPHOCYTES 18.4 % (20.0-50.0); % MONOCYTES 13.8 % (2.0-10.0); % NEUTROPHILS 56.8 % (40.0-80.0); HEMATOCRIT 25.2 % (39.0-49.0); HEMOGLOBIN 8.3 gm/dL (13.2-17.3); MEAN CELL VOLUME 86.8 fl (80-99); MEAN CORPUSCULAR HEMOGLOBIN 28.6 pg (26.0-30.0); MEAN CORPUSCULAR HGB CONC 32.9 pg (28.0-36.0); MEAN PLATELET VOLUME 8.6 fl; NEUTROPHILE ABSOLUTE 2.7 Th/cmm (1.8-8.0); PLATELET COUNT 102 Th/cmm (150-400); RED CELL DISTRIBUTION WIDTH 15.2 % (11.5-20.0); WHITE BLOOD COUNT 4.6 Th/cmm (4.8-10.8)
--- NOTE | 2016-07-07 13:05 | Infectious Disease Prog Note ---
Infectious Disease Subjective - Review of Systems Service Date: 07/07/16 Subjective: No change. Infectious Disease Objective - Results Result Diagrams: 07/07/16 06:00 07/07/16 06:00 Recent Labs: Laboratory Last Values WBC 4.6 Th/cmm (4.8-10.8) L 07/07/16 06:00 RBC 2.90 Mil/cmm (4.30-5.70) L 07/07/16 06:00 Hgb 8.3 gm/dL (13.2-17.3) L 07/07/16 06:00 Hct 25.2 % (39.0-49.0) L 07/07/16 06:00 MCV 86.8 fl (80-99) 07/07/16 06:00 MCH 28.6 pg (26.0-30.0) 07/07/16 06:00 MCHC Differential 32.9 pg (28.0-36.0) 07/07/16 06:00 RDW 15.2 % (11.5-20.0) 07/07/16 06:00 Plt Count 102 Th/cmm (150-400) L 07/07/16 06:00 MPV 8.6 fl 07/07/16 06:00 Neutrophils % 56.8 % (40.0-80.0) 07/07/16 06:00 Band Neutrophils % 0 % (0-10) 07/04/16 04:58 Lymphocytes % 18.4 % (20.0-50.0) L 07/07/16 06:00 Monocytes % 13.8 % (2.0-10.0) H 07/07/16 06:00 Eosinophils % 11.0 % (0.0-5.0) H 07/07/16 06:00 Basophils % 0.0 % (0.0-2.0) 07/07/16 06:00 Neutrophils (Manual) 59 % (40-80) 07/05/16 12:15 Lymphocytes 13 % (20-50) L 07/05/16 12:15 Monocytes 16 % (2-10) H 07/05/16 12:15 Eosinophils 10 % (0-5) H 07/05/16 12:15 Basophils 2 % (0-3) 07/05/16 12:15 Hypochromia 1+ 06/22/16 19:33 Platelet Estimate DECREASED PLATELETS (NORMAL) 07/05/16 12:15 Platelet Morphology NORMAL (NORMAL) 07/05/16 12:15 Polychromasia 1+ 07/03/16 05:30 Anisocytosis 1+ 07/05/16 12:15 RBC Morph Micro Appear ABNORMAL (NORMAL) 07/05/16 12:15 PT 12.7 SECONDS (9.5-11.5) H 07/01/16 06:57 INR 1.26 (0.5-1.4) 07/01/16 06:57 PTT (Actin FS) 28.3 SECONDS (26.0-38.0) 06/28/16 04:38 Specimen Source art 06/22/16 20:03 Sample Site Right Radial 06/22/16 20:03 pH 7.49 (7.35-7.45) H 06/22/16 20:03 pCO2 34.0 mmHg (35.0-45.0) L 06/22/16 20:03 pO2 97.0 mmHg (80.0-100.0) 06/22/16 20:03 HCO3 25.9 mmol/L (20.0-26.0) 06/22/16 20:03 Base Excess 2.8 mmol/L (-3.0-3.0) 06/22/16 20:03 O2 Saturation 98.0 % (92.0-100.0) 06/22/16 20:03 Estuardo Test P 06/22/16 20:03 Vent Rate NA 06/22/16 20:03 Inspired O2 21 06/22/16 20:03 Tidal Volume NA 06/22/16 20:03 PEEP NA 06/22/16 20:03 Pressure (ins/psv/peep) NA 06/22/16 20:03 Critical Value RPINEIRA 06/22/16 20:03 Sodium 133 mEq/L (136-145) L 07/07/16 06:00 Potassium 3.5 mEq/L (3.5-5.1) 07/07/16 06:00 Chloride 100 mEq/L (98-107) 07/07/16 06:00 Carbon Dioxide 27.2 mEq/L (21.0-31.0) 07/07/16 06:00 Anion Gap 9.3 (7.0-16.0) 07/07/16 06:00 BUN 25 mg/dL (7-25) 07/07/16 06:00 Creatinine 2.3 mg/dL (0.7-1.3) H 07/07/16 06:00 Est GFR ( Amer) 39.1 ml/min (>90) 07/07/16 06:00 Est GFR (Non-Af Amer) 32.3 ml/min 07/07/16 06:00 BUN/Creatinine Ratio 10.9 07/07/16 06:00 Glucose 90 mg/dL (70-105) 07/07/16 06:00 Calcium 8.7 mg/dL (8.6-10.3) 07/07/16 06:00 Phosphorus 4.1 mg/dL (2.5-5.0) 07/02/16 06:40 Magnesium 2.0 mg/dL (1.9-2.7) 07/07/16 06:00 Iron 42 ug/dL (38-169) 06/28/16 04:38 TIBC 269 ug/dL (250-450) 06/28/16 04:38 Iron Saturation 16 % (15-55) 06/28/16 04:38 Unsaturated IBC 227 ug/dL (111-343) 06/28/16 04:38 Ferritin 150 ng/mL (30-400) 06/26/16 08:30 Total Bilirubin 4.0 mg/dL (0.3-1.0) H 07/01/16 06:57 Direct Bilirubin 0.70 mg/dL (0.0-0.2) H 06/28/16 04:38 GGTP 14 IU/L (0-65) 06/28/16 04:38 AST 64 U/L (13-39) H 07/01/16 06:57 ALT 16 U/L (7-52) 07/01/16 06:57 Alkaline Phosphatase 94 U/L (34-104) 07/01/16 06:57 Ammonia 105 umol/L (16-53) H 07/02/16 06:40 Troponin I < 0.01 ng/mL (0.01-0.05) L 06/22/16 19:33 B-Natriuretic Peptide 668.0 pg/mL (5.0-100.0) H 06/22/16 19:33 Total Protein 7.5 gm/dL (6.0-8.3) 07/01/16 06:57 Albumin 2.8 gm/dL (4.2-5.5) L 07/01/16 06:57 Globulin 4.7 gm/dL 07/01/16 06:57 Albumin/Globulin Ratio 0.6 (1.0-1.8) L 07/01/16 06:57 Amylase 28 U/L (29-103) L 07/02/16 06:40 Lipase 31 U/L (11-82) 07/02/16 06:40 Urine Source CLEAN C 06/29/16 05:55 Urine Color YELLOW 06/29/16 05:55 Urine Clarity HAZY (CLEAR) 06/29/16 05:55 Urine pH 5.5 06/29/16 05:55 Ur Specific [place] 1.015 (1.005-1.030) 06/29/16 05:55 Urine Protein 30 mg/dL (NEGATIVE) H 06/29/16 05:55 Urine Glucose (UA) NEGATIVE mg/dL (NEGATIVE) 06/29/16 05:55 Urine Ketones NEGATIVE mg/dL (NEGATIVE) 06/29/16 05:55 Urine Blood NEGATIVE (NEGATIVE) 06/29/16 05:55 Urine Nitrate NEGATIVE (NEGATIVE) 06/29/16 05:55 Urine Bilirubin NEGATIVE (NEGATIVE) 06/29/16 05:55 Urine Urobilinogen 0.2 E.U./dL (0.2 - 1.0) 06/29/16 05:55 Ur Leukocyte Esterase TRACE (NEGATIVE) H 06/29/16 05:55 Urine RBC 0-2 /hpf (0-5) H 06/29/16 05:55 Urine WBC 6-10 /hpf (0-5) H 06/29/16 05:55 Ur Epithelial Cells FEW /lpf (FEW) 06/29/16 05:55 Urine Bacteria MANY /hpf (NONE SEEN) 06/29/16 05:55 Stool Occult Blood POSITIVE (NEGATIVE) 06/24/16 16:00 Random Vancomycin 13.4 ug/mL (5.0-40.0) 06/28/16 04:38 RPR NONREACTIVE (NONREACTIVE) 06/22/16 19:33 Hepatitis A IgM Ab Negative (Negative) 06/29/16 05:49 Hep Bs Antigen Negative (Negative) 06/29/16 05:49 Hep B Core IgM Ab Negative (Negative) 06/29/16 05:49 Hepatitis C Antibody >11.0 s/co ratio (0.0-0.9) H 06/29/16 05:49 Blood Type A POSITIVE 06/28/16 04:38 Antibody Screen NEGATIVE 06/28/16 04:38 Crossmatch See Detail 06/28/16 04:38 - Physical Exam Vitals and I&O: Vital Signs Temp 98.2 F 07/07/16 08:00 Pulse 112 07/07/16 12:50 Resp 18 07/07/16 08:00 BP 101/59 07/07/16 08:00 Pulse Ox 97 07/07/16 08:00 Intake & Output 07/06/16 07/07/16 07/07/16 18:59 06:59 18:59 Intake Total 2000 1800 Output Total 4100 2100 Balance -2100 -300 Intake: Oral 2000 1800 Output: Urine 600 2100 Hemodialysis 3500 Other: # Voids 3 # Bowel Movements 1 1 Stool Characteristics Soft Active Medications: Current Medications Acetaminophen (Tylenol) 325 mg PO Q6HR PRN PRN Reason: Mild Pain or Fever >101 Stop: 08/22/16 20:30 Albuterol/Ipratropium (Duoneb Neb) 3 ml HHN Q2HR PRN PRN Reason: Shortness of Breath or Wheeze Aspirin (Ecotrin) 325 mg PO DAILY [facility] Stop: 09/03/16 09:14 Last Admin: 07/07/16 08:22 Dose: 325 mg Cholecalciferol (Vitamin D3) 2,000 iu PO DAILY [facility] Stop: 08/23/16 08:59 Last Admin: 07/07/16 08:21 Dose: 2,000 iu Diltiazem HCl (Cardizem) 60 mg PO Q6HR [facility] Stop: 09/04/16 11:59 Last Admin: 07/07/16 12:50 Dose: 60 mg Diphenhydramine HCl (Benadryl 50 Mg/Ml) 50 mg IM Q8HR PRN PRN Reason: Agitation Stop: 08/25/16 12:10 Docusate Sodium (Colace) 100 mg PO BID [facility] Stop: 08/22/16 16:59 Last Admin: 07/07/16 08:22 Dose: 100 mg Haloperidol Lactate (Haldol) 5 mg IM Q8HR PRN PRN Reason: Agitation Stop: 08/25/16 12:10 Levothyroxine Sodium (Synthroid) 0.05 mg PO QDAC [facility] Stop: 08/23/16 07:29 Last Admin: 07/07/16 08:22 Dose: 0.05 mg Miscellaneous (Clinical Monitoring) 1 ea MC PRN PRN PRN Reason: RENAL DOSING Stop: 08/31/16 16:27 Morphine Sulfate (Morphine) 1 mg IV Q4H PRN PRN Reason: SEVERE PAIN Stop: 08/22/16 04:40 Last Admin: 07/07/16 05:46 Dose: 1 mg Ondansetron HCl (Zofran Odt) 4 mg PO Q6HR PRN PRN Reason: Nausea / Vomiting Stop: 08/22/16 20:30 Pantoprazole Sodium (Protonix) 40 mg PO DAILY [facility] Stop: 08/23/16 08:59 Last Admin: 07/07/16 08:22 Dose: 40 mg Quetiapine Fumarate (Seroquel) 100 mg PO TID [facility] PRN Reason: Protocol Stop: 08/26/16 08:59 Last Admin: 07/07/16 08:24 Dose: Not Given Vitamin B Complex/Vit C/Folic Acid (Vitamin B Complex W/Vitamin C) 1 tab PO DAILY [facility] Stop: 08/23/16 08:59 Last Admin: 07/07/16 08:22 Dose: 1 tab General: no acute distress, other (obese) HEENT: atraumatic, normocephalic, PERRLA Neck: supple, no thyromegaly, no lymphadenopathy Cardiovascular: S1S2, regular Lungs: clear to auscultation bilaterally, clear to percussion Abdomen: soft, no tender, no distended Extremities: no cyanosis, no clubbing, no edema Neurological: awake, alert, oriented Skin: intact - Procedures Procedures: Procedures Procedure Code Date ARTERY-VEIN NONAUTOGRAFT 36207 06/22/16 BYPASS L BRACH ART TO UP ARM VEIN W NONAUT SUB, OPEN [id number] 06/22/16 FLUOROSCOPY OF SUP VENA CAVA USING [facility] CONTRAST, GUIDANCE [id number] 06/22/16 INSERTION OF INFUSION DEV INTO SUP VENA CAVA, PERC APPROACH [id number] 06/22/16 PLACE CATHETER IN VEIN 16987 06/22/16 Infectious Disease Assmt/Plan - Problem List Patient Problems: All Active Problems MEDICAL EVALUATION PER DR FRY (Acute) - Assessment Assessment: 1. Cellulitis of legs. improved. treated. 2. Lymphedema of legs. 3. CKD 5 on HD. 4. Morbid obesity. - Plan Plan: Continue the skin care. DC plan.
--- NOTE | 2016-07-07 15:29 | General Progress Note ---
Subjective - Review of Systems Subjective: pt refusing evrything pulled out vascular access yesterday spoke to dr forrest yesterday renal notes noted Objective - Results Result Diagrams: 07/07/16 06:00 07/07/16 06:00 Recent Labs: Laboratory Last Values WBC 4.6 Th/cmm (4.8-10.8) L 07/07/16 06:00 RBC 2.90 Mil/cmm (4.30-5.70) L 07/07/16 06:00 Hgb 8.3 gm/dL (13.2-17.3) L 07/07/16 06:00 Hct 25.2 % (39.0-49.0) L 07/07/16 06:00 MCV 86.8 fl (80-99) 07/07/16 06:00 MCH 28.6 pg (26.0-30.0) 07/07/16 06:00 MCHC Differential 32.9 pg (28.0-36.0) 07/07/16 06:00 RDW 15.2 % (11.5-20.0) 07/07/16 06:00 Plt Count 102 Th/cmm (150-400) L 07/07/16 06:00 MPV 8.6 fl 07/07/16 06:00 Neutrophils % 56.8 % (40.0-80.0) 07/07/16 06:00 Band Neutrophils % 0 % (0-10) 07/04/16 04:58 Lymphocytes % 18.4 % (20.0-50.0) L 07/07/16 06:00 Monocytes % 13.8 % (2.0-10.0) H 07/07/16 06:00 Eosinophils % 11.0 % (0.0-5.0) H 07/07/16 06:00 Basophils % 0.0 % (0.0-2.0) 07/07/16 06:00 Neutrophils (Manual) 59 % (40-80) 07/05/16 12:15 Lymphocytes 13 % (20-50) L 07/05/16 12:15 Monocytes 16 % (2-10) H 07/05/16 12:15 Eosinophils 10 % (0-5) H 07/05/16 12:15 Basophils 2 % (0-3) 02/16/17 12:15 Hypochromia 1+ 06/22/16 19:33 Platelet Estimate DECREASED PLATELETS (NORMAL) 07/05/16 12:15 Platelet Morphology NORMAL (NORMAL) 07/05/16 12:15 Polychromasia 1+ 07/03/16 05:30 Anisocytosis 1+ 07/05/16 12:15 RBC Morph Micro Appear ABNORMAL (NORMAL) 07/05/16 12:15 PT 12.7 SECONDS (9.5-11.5) H 07/01/16 06:57 INR 1.26 (0.5-1.4) 07/01/16 06:57 PTT (Actin FS) 28.3 SECONDS (26.0-38.0) 06/28/16 04:38 Specimen Source art 06/22/16 20:03 Sample Site Right Radial 06/22/16 20:03 pH 7.49 (7.35-7.45) H 06/22/16 20:03 pCO2 34.0 mmHg (35.0-45.0) L 06/22/16 20:03 pO2 97.0 mmHg (80.0-100.0) 06/22/16 20:03 HCO3 25.9 mmol/L (20.0-26.0) 06/22/16 20:03 Base Excess 2.8 mmol/L (-3.0-3.0) 06/22/16 20:03 O2 Saturation 98.0 % (92.0-100.0) 06/22/16 20:03 Estuardo Test P 06/22/16 20:03 Vent Rate NA 06/22/16 20:03 Inspired O2 21 06/22/16 20:03 Tidal Volume NA 06/22/16 20:03 PEEP NA 06/22/16 20:03 Pressure (ins/psv/peep) NA 06/22/16 20:03 Critical Value RPINEIRA 06/22/16 20:03 Sodium 133 mEq/L (136-145) L 07/07/16 06:00 Potassium 3.5 mEq/L (3.5-5.1) 07/07/16 06:00 Chloride 100 mEq/L (98-107) 07/07/16 06:00 Carbon Dioxide 27.2 mEq/L (21.0-31.0) 07/07/16 06:00 Anion Gap 9.3 (7.0-16.0) 07/07/16 06:00 BUN 25 mg/dL (7-25) 07/07/16 06:00 Creatinine 2.3 mg/dL (0.7-1.3) H 07/07/16 06:00 Est GFR ( Amer) 39.1 ml/min (>90) 07/07/16 06:00 Est GFR (Non-Af Amer) 32.3 ml/min 07/07/16 06:00 BUN/Creatinine Ratio 10.9 07/07/16 06:00 Glucose 90 mg/dL (70-105) 07/07/16 06:00 Calcium 8.7 mg/dL (8.6-10.3) 07/07/16 06:00 Phosphorus 4.1 mg/dL (2.5-5.0) 07/02/16 06:40 Magnesium 2.0 mg/dL (1.9-2.7) 07/07/16 06:00 Iron 42 ug/dL (38-169) 06/28/16 04:38 TIBC 269 ug/dL (250-450) 06/28/16 04:38 Iron Saturation 16 % (15-55) 06/28/16 04:38 Unsaturated IBC 227 ug/dL (111-343) 06/28/16 04:38 Ferritin 150 ng/mL (30-400) 06/26/16 08:30 Total Bilirubin 4.0 mg/dL (0.3-1.0) H 07/01/16 06:57 Direct Bilirubin 0.70 mg/dL (0.0-0.2) H 06/28/16 04:38 GGTP 14 IU/L (0-65) 06/28/16 04:38 AST 64 U/L (13-39) H 07/01/16 06:57 ALT 16 U/L (7-52) 07/01/16 06:57 Alkaline Phosphatase 94 U/L (34-104) 07/01/16 06:57 Ammonia 105 umol/L (16-53) H 07/02/16 06:40 Troponin I < 0.01 ng/mL (0.01-0.05) L 06/22/16 19:33 B-Natriuretic Peptide 668.0 pg/mL (5.0-100.0) H 06/22/16 19:33 Total Protein 7.5 gm/dL (6.0-8.3) 07/01/16 06:57 Albumin 2.8 gm/dL (4.2-5.5) L 07/01/16 06:57 Globulin 4.7 gm/dL 07/01/16 06:57 Albumin/Globulin Ratio 0.6 (1.0-1.8) L 07/01/16 06:57 Amylase 28 U/L (29-103) L 07/02/16 06:40 Lipase 31 U/L (11-82) 07/02/16 06:40 Urine Source CLEAN C 06/29/16 05:55 Urine Color YELLOW 06/29/16 05:55 Urine Clarity HAZY (CLEAR) 06/29/16 05:55 Urine pH 5.5 06/29/16 05:55 Ur Specific [place] 1.015 (1.005-1.030) 06/29/16 05:55 Urine Protein 30 mg/dL (NEGATIVE) H 06/29/16 05:55 Urine Glucose (UA) NEGATIVE mg/dL (NEGATIVE) 06/29/16 05:55 Urine Ketones NEGATIVE mg/dL (NEGATIVE) 06/29/16 05:55 Urine Blood NEGATIVE (NEGATIVE) 06/29/16 05:55 Urine Nitrate NEGATIVE (NEGATIVE) 06/29/16 05:55 Urine Bilirubin NEGATIVE (NEGATIVE) 06/29/16 05:55 Urine Urobilinogen 0.2 E.U./dL (0.2 - 1.0) 06/29/16 05:55 Ur Leukocyte Esterase TRACE (NEGATIVE) H 06/29/16 05:55 Urine RBC 0-2 /hpf (0-5) H 06/29/16 05:55 Urine WBC 6-10 /hpf (0-5) H 06/29/16 05:55 Ur Epithelial Cells FEW /lpf (FEW) 06/29/16 05:55 Urine Bacteria MANY /hpf (NONE SEEN) 06/29/16 05:55 Stool Occult Blood POSITIVE (NEGATIVE) 06/24/16 16:00 Random Vancomycin 13.4 ug/mL (5.0-40.0) 06/28/16 04:38 RPR NONREACTIVE (NONREACTIVE) 06/22/16 19:33 Hepatitis A IgM Ab Negative (Negative) 06/29/16 05:49 Hep Bs Antigen Negative (Negative) 06/29/16 05:49 Hep B Core IgM Ab Negative (Negative) 06/29/16 05:49 Hepatitis C Antibody >11.0 s/co ratio (0.0-0.9) H 06/29/16 05:49 Blood Type A POSITIVE 06/28/16 04:38 Antibody Screen NEGATIVE 06/28/16 04:38 Crossmatch See Detail 06/28/16 04:38 - Physical Exam Vitals and I&O: Vital Signs Temp 99.3 F 07/07/16 12:00 Pulse 112 07/07/16 12:50 Resp 18 07/07/16 12:00 BP 123/65 07/07/16 12:00 Pulse Ox 96 07/07/16 12:00 Intake & Output 07/06/16 07/07/16 07/07/16 18:59 06:59 18:59 Intake Total 2000 1800 Output Total 4100 2100 Balance -2100 -300 Intake: Oral 1999 1800 Output: Urine 600 2100 Hemodialysis 3500 Other: # Voids 3 # Bowel Movements 1 1 Stool Characteristics Soft Active Medications: Current Medications Acetaminophen (Tylenol) 325 mg PO Q6HR PRN PRN Reason: Mild Pain or Fever >101 Stop: 08/22/16 20:30 Albuterol/Ipratropium (Duoneb Neb) 3 ml HHN Q2HR PRN PRN Reason: Shortness of Breath or Wheeze Aspirin (Ecotrin) 325 mg PO DAILY [facility] Stop: 09/03/16 09:14 Last Admin: 07/07/16 08:22 Dose: 325 mg Carvedilol (Coreg) 12.5 mg PO BID [facility] Stop: 09/05/16 16:59 Cholecalciferol (Vitamin D3) 2,000 iu PO DAILY [facility] Stop: 08/23/16 08:59 Last Admin: 07/07/16 08:21 Dose: 2,000 iu Diltiazem HCl (Cardizem) 60 mg PO Q6HR [facility] Stop: 09/04/16 11:59 Last Admin: 07/07/16 12:50 Dose: 60 mg Diphenhydramine HCl (Benadryl 50 Mg/Ml) 50 mg IM Q8HR PRN PRN Reason: Agitation Stop: 08/25/16 12:10 Docusate Sodium (Colace) 100 mg PO BID [facility] Stop: 08/22/16 16:59 Last Admin: 07/07/16 08:22 Dose: 100 mg Haloperidol Lactate (Haldol) 5 mg IM Q8HR PRN PRN Reason: Agitation Stop: 08/25/16 12:10 Levothyroxine Sodium (Synthroid) 0.05 mg PO QDAC [facility] Stop: 08/23/16 07:29 Last Admin: 07/07/16 08:22 Dose: 0.05 mg Miscellaneous (Clinical Monitoring) 1 ea MC PRN PRN PRN Reason: RENAL DOSING Stop: 08/31/16 16:27 Morphine Sulfate (Morphine) 1 mg IV Q4H PRN PRN Reason: SEVERE PAIN Stop: 08/22/16 04:40 Last Admin: 07/07/16 05:46 Dose: 1 mg Ondansetron HCl (Zofran Odt) 4 mg PO Q6HR PRN PRN Reason: Nausea / Vomiting Stop: 08/22/16 20:30 Pantoprazole Sodium (Protonix) 40 mg PO DAILY [facility] Stop: 08/23/16 08:59 Last Admin: 07/07/16 08:22 Dose: 40 mg Quetiapine Fumarate (Seroquel) 100 mg PO TID [facility] PRN Reason: Protocol Stop: 08/26/16 08:59 Last Admin: 07/07/16 08:24 Dose: Not Given Vitamin B Complex/Vit C/Folic Acid (Vitamin B Complex W/Vitamin C) 1 tab PO DAILY [facility] Stop: 08/23/16 08:59 Last Admin: 07/07/16 08:22 Dose: 1 tab - Procedures Procedures: Procedures Procedure Code Date ARTERY-VEIN NONAUTOGRAFT 38788 06/22/16 BYPASS L BRACH ART TO UP ARM VEIN W NONAUT SUB, OPEN [id number] 06/22/16 FLUOROSCOPY OF SUP VENA CAVA USING [facility] CONTRAST, GUIDANCE [id number] 06/22/16 INSERTION OF INFUSION DEV INTO SUP VENA CAVA, PERC APPROACH [id number] 06/22/16 PLACE CATHETER IN VEIN 53405 06/22/16 Assessment/Plan - Problem List Patient Problems: All Active Problems MEDICAL EVALUATION PER DR FRY (Acute) - Assessment Assessment: 1. Cellulitis of legs. 2. Lymphedema of legs. 3. CKD 5 on HD. 4. Morbid obesity. 5 anemia 6 gi bleed 7 psychosis - Plan Plan: ivabx follow up labs id consult
--- NOTE | 2016-07-07 22:19 | Progress Notes ---
SUBJECTIVE: This is a 51-year-old male with history of renal failure, obesity. On [id number], the patient is upset, angry, states he wants to leave the hospital, but really does have any place to go, states he can live with friends, but it is unclear if his friends can actually to care for his medical conditions. Sleeping fairly well, eating well, pretty irritable, upset. MENTAL STATUS EXAMINATION: Overweight male, anxious. Mood, "not good," angry fairly linear, engaged, no SI, no HI. No evidence of psychosis. Insight questionable, judgment questionable, fair concentration. PROVISIONAL DIAGNOSIS: Unchanged. RECOMMENDATIONS AND PLAN: We will continue to monitor. The patient pretty angry and upset. We will continue to keep an eye on him and supervise current diagnosis of anxiety, possibly a psychotic component, rule out schizoaffective disorder. CURRENT MEDICATIONS: Include Seroquel, continue current dose. JOB# [id number]
[2016-07-08] MEDS: Diltiazem 30 mg Tab PO SCH ×4 (01:43→17:30)
[2016-07-08] MEDS: Morphine Sulfate 2 mg/mL 1mL Syr IV PRN ×3 (04:33→14:34)
[2016-07-08 06:18] LABS: ANION GAP 8.3 (7.0-16.0); CALCIUM SERUM 8.6 mg/dL (8.6-10.3); CARBON DIOXIDE 26.4 mEq/L (21.0-31.0); CREATININE - SERUM 3.1 mg/dL (0.7-1.3); PHOSPHOROUS 3.5 mg/dL (2.5-5.0); POTASSIUM SERUM 3.7 mEq/L (3.5-5.1)
[2016-07-08] MEDS: Levothyroxine 0.05 Mg Tab PO SCH (07:30)
[2016-07-08] MEDS: Pantoprazole 40 mg EC Tab PO SCH (09:17)
[2016-07-08] MEDS: Aspirin 325 mg EC PO SCH (09:17)
[2016-07-08] MEDS: Vitamin B Complex w/Vitamin C Tab PO SCH (09:19)
--- NOTE | 2016-07-08 15:06 | General Progress Note ---
Subjective - Review of Systems Service Date: 07/08/16 Subjective: still upset, wants to be transferred Objective - Results Result Diagrams: 07/07/16 06:00 07/08/16 05:00 Recent Labs: Laboratory Last Values WBC 4.6 Th/cmm (4.8-10.8) L 07/07/16 06:00 RBC 2.90 Mil/cmm (4.30-5.70) L 07/07/16 06:00 Hgb 8.3 gm/dL (13.2-17.3) L 07/07/16 06:00 Hct 25.2 % (39.0-49.0) L 07/07/16 06:00 MCV 86.8 fl (80-99) 07/07/16 06:00 MCH 28.6 pg (26.0-30.0) 07/07/16 06:00 MCHC Differential 32.9 pg (28.0-36.0) 07/07/16 06:00 RDW 15.2 % (11.5-20.0) 07/07/16 06:00 Plt Count 102 Th/cmm (150-400) L 07/07/16 06:00 MPV 8.6 fl 07/07/16 06:00 Neutrophils % 56.8 % (40.0-80.0) 07/07/16 06:00 Band Neutrophils % 0 % (0-10) 07/04/16 04:58 Lymphocytes % 18.4 % (20.0-50.0) L 07/07/16 06:00 Monocytes % 13.8 % (2.0-10.0) H 07/07/16 06:00 Eosinophils % 11.0 % (0.0-5.0) H 07/07/16 06:00 Basophils % 0.0 % (0.0-2.0) 07/07/16 06:00 Neutrophils (Manual) 59 % (40-80) 07/05/16 12:15 Lymphocytes 13 % (20-50) L 07/05/16 12:15 Monocytes 16 % (2-10) H 07/05/16 12:15 Eosinophils 10 % (0-5) H 07/05/16 12:15 Basophils 2 % (0-3) 07/05/16 12:15 Hypochromia 1+ 06/22/16 19:33 Platelet Estimate DECREASED PLATELETS (NORMAL) 07/05/16 12:15 Platelet Morphology NORMAL (NORMAL) 07/05/16 12:15 Polychromasia 1+ 07/03/16 05:30 Anisocytosis 1+ 07/05/16 12:15 RBC Morph Micro Appear ABNORMAL (NORMAL) 07/05/16 12:15 PT 12.7 SECONDS (9.5-11.5) H 07/01/16 06:57 INR 1.26 (0.5-1.4) 07/01/16 06:57 PTT (Actin FS) 28.3 SECONDS (26.0-38.0) 06/28/16 04:38 Specimen Source art 06/22/16 20:03 Sample Site Right Radial 06/22/16 20:03 pH 7.49 (7.35-7.45) H 06/22/16 20:03 pCO2 34.0 mmHg (35.0-45.0) L 06/22/16 20:03 pO2 97.0 mmHg (80.0-100.0) 06/22/16 20:03 HCO3 25.9 mmol/L (20.0-26.0) 06/22/16 20:03 Base Excess 2.8 mmol/L (-3.0-3.0) 06/22/16 20:03 O2 Saturation 98.0 % (92.0-100.0) 06/22/16 20:03 Estuardo Test P 06/22/16 20:03 Vent Rate NA 06/22/16 20:03 Inspired O2 21 06/22/16 20:03 Tidal Volume NA 06/22/16 20:03 PEEP NA 06/22/16 20:03 Pressure (ins/psv/peep) NA 06/22/16 20:03 Critical Value RPINEIRA 06/22/16 20:03 Sodium 131 mEq/L (136-145) L 07/08/16 05:00 Potassium 3.7 mEq/L (3.5-5.1) 07/08/16 05:00 Chloride 100 mEq/L (98-107) 07/08/16 05:00 Carbon Dioxide 26.4 mEq/L (21.0-31.0) 07/08/16 05:00 Anion Gap 8.3 (7.0-16.0) 07/08/16 05:00 BUN 31 mg/dL (7-25) H 07/08/16 05:00 Creatinine 3.1 mg/dL (0.7-1.3) H 07/08/16 05:00 Est GFR ( Amer) 27.7 ml/min (>90) 07/08/16 05:00 Est GFR (Non-Af Amer) 22.9 ml/min 07/08/16 05:00 BUN/Creatinine Ratio 10.0 07/08/16 05:00 Glucose 95 mg/dL (70-105) 07/08/16 05:00 Calcium 8.6 mg/dL (8.6-10.3) 07/08/16 05:00 Phosphorus 3.5 mg/dL (2.5-5.0) 07/08/16 05:00 Magnesium 2.0 mg/dL (1.9-2.7) 07/07/16 06:00 Iron 42 ug/dL (38-169) 06/28/16 04:38 TIBC 269 ug/dL (250-450) 06/28/16 04:38 Iron Saturation 16 % (15-55) 06/28/16 04:38 Unsaturated IBC 227 ug/dL (111-343) 06/28/16 04:38 Ferritin 150 ng/mL (30-400) 06/26/16 08:30 Total Bilirubin 4.0 mg/dL (0.3-1.0) H 07/01/16 06:57 Direct Bilirubin 0.70 mg/dL (0.0-0.2) H 06/28/16 04:38 GGTP 14 IU/L (0-65) 06/28/16 04:38 AST 64 U/L (13-39) H 07/01/16 06:57 ALT 16 U/L (7-52) 07/01/16 06:57 Alkaline Phosphatase 94 U/L (34-104) 07/01/16 06:57 Ammonia 105 umol/L (16-53) H 07/02/16 06:40 Troponin I < 0.01 ng/mL (0.01-0.05) L 06/22/16 19:33 B-Natriuretic Peptide 668.0 pg/mL (5.0-100.0) H 06/22/16 19:33 Total Protein 7.5 gm/dL (6.0-8.3) 07/01/16 06:57 Albumin 2.8 gm/dL (4.2-5.5) L 07/01/16 06:57 Globulin 4.7 gm/dL 07/01/16 06:57 Albumin/Globulin Ratio 0.6 (1.0-1.8) L 07/01/16 06:57 Amylase 28 U/L (29-103) L 07/02/16 06:40 Lipase 31 U/L (11-82) 07/02/16 06:40 Urine Source CLEAN C 06/29/16 05:55 Urine Color YELLOW 06/29/16 05:55 Urine Clarity HAZY (CLEAR) 06/29/16 05:55 Urine pH 5.5 06/29/16 05:55 Ur Specific [place] 1.015 (1.005-1.030) 06/29/16 05:55 Urine Protein 30 mg/dL (NEGATIVE) H 06/29/16 05:55 Urine Glucose (UA) NEGATIVE mg/dL (NEGATIVE) 06/29/16 05:55 Urine Ketones NEGATIVE mg/dL (NEGATIVE) 06/29/16 05:55 Urine Blood NEGATIVE (NEGATIVE) 06/29/16 05:55 Urine Nitrate NEGATIVE (NEGATIVE) 06/29/16 05:55 Urine Bilirubin NEGATIVE (NEGATIVE) 06/29/16 05:55 Urine Urobilinogen 0.2 E.U./dL (0.2 - 1.0) 06/29/16 05:55 Ur Leukocyte Esterase TRACE (NEGATIVE) H 06/29/16 05:55 Urine RBC 0-2 /hpf (0-5) H 06/29/16 05:55 Urine WBC 6-10 /hpf (0-5) H 06/29/16 05:55 Ur Epithelial Cells FEW /lpf (FEW) 06/29/16 05:55 Urine Bacteria MANY /hpf (NONE SEEN) 06/29/16 05:55 Stool Occult Blood POSITIVE (NEGATIVE) 06/24/16 16:00 Random Vancomycin 13.4 ug/mL (5.0-40.0) 06/28/16 04:38 RPR NONREACTIVE (NONREACTIVE) 06/22/16 19:33 Hepatitis A IgM Ab Negative (Negative) 06/29/16 05:49 Hep Bs Antigen Negative (Negative) 06/29/16 05:49 Hep B Core IgM Ab Negative (Negative) 06/29/16 05:49 Hepatitis C Antibody >11.0 s/co ratio (0.0-0.9) H 06/29/16 05:49 Blood Type A POSITIVE 06/28/16 04:38 Antibody Screen NEGATIVE 06/28/16 04:38 Crossmatch See Detail 06/28/16 04:38 - Physical Exam Vitals and I&O: Vital Signs Temp 98.3 F 07/08/16 12:00 Pulse 99 07/08/16 12:11 Resp 20 07/08/16 12:00 BP 92/54 07/08/16 12:00 Pulse Ox 97 07/08/16 12:00 Intake & Output 07/07/16 07/08/16 07/08/16 18:59 06:59 18:59 Intake Total 500 200 Output Total 500 Balance 0 200 Intake: Oral 500 200 Output: Urine 500 Other: # Voids 3 1 Stool Characteristics Soft Active Medications: Current Medications Acetaminophen (Tylenol) 325 mg PO Q6HR PRN PRN Reason: Mild Pain or Fever >101 Stop: 08/22/16 20:30 Albuterol/Ipratropium (Duoneb Neb) 3 ml HHN Q2HR PRN PRN Reason: Shortness of Breath or Wheeze Aspirin (Ecotrin) 325 mg PO DAILY [facility] Stop: 09/03/16 09:14 Last Admin: 07/08/16 09:17 Dose: 325 mg Carvedilol (Coreg) 12.5 mg PO BID [facility] Stop: 09/05/16 16:59 Last Admin: 07/08/16 09:17 Dose: Not Given Cholecalciferol (Vitamin D3) 2,000 iu PO DAILY [facility] Stop: 08/23/16 08:59 Last Admin: 07/08/16 09:17 Dose: 2,000 iu Diltiazem HCl (Cardizem) 60 mg PO Q6HR [facility] Stop: 09/04/16 11:59 Last Admin: 07/08/16 12:11 Dose: 60 mg Diphenhydramine HCl (Benadryl 50 Mg/Ml) 50 mg IM Q8HR PRN PRN Reason: Agitation Stop: 08/25/16 12:10 Docusate Sodium (Colace) 100 mg PO BID [facility] Stop: 08/22/16 16:59 Last Admin: 07/08/16 09:17 Dose: 100 mg Haloperidol Lactate (Haldol) 5 mg IM Q8HR PRN PRN Reason: Agitation Stop: 08/25/16 12:10 Levothyroxine Sodium (Synthroid) 0.05 mg PO QDAC [facility] Stop: 08/23/16 07:29 Last Admin: 07/08/16 07:30 Dose: 0.05 mg Miscellaneous (Clinical Monitoring) 1 ea MC PRN PRN PRN Reason: RENAL DOSING Stop: 08/31/16 16:27 Morphine Sulfate (Morphine) 1 mg IV Q4H PRN PRN Reason: SEVERE PAIN Stop: 08/22/16 04:40 Last Admin: 07/08/16 14:34 Dose: 1 mg Ondansetron HCl (Zofran Odt) 4 mg PO Q6HR PRN PRN Reason: Nausea / Vomiting Stop: 08/22/16 20:30 Pantoprazole Sodium (Protonix) 40 mg PO DAILY [facility] Stop: 08/23/16 08:59 Last Admin: 07/08/16 09:17 Dose: 40 mg Quetiapine Fumarate (Seroquel) 100 mg PO TID [facility] PRN Reason: Protocol Stop: 08/26/16 08:59 Last Admin: 07/08/16 14:35 Dose: Not Given Vitamin B Complex/Vit C/Folic Acid (Vitamin B Complex W/Vitamin C) 1 tab PO DAILY [facility] Stop: 08/23/16 08:59 Last Admin: 07/08/16 09:19 Dose: 1 tab General: Alert, Other (uncooperative) HEENT: Atraumatic, Mucous membr. moist/pink Neck: Supple, +2 carotid pulse wo bruit Cardiovascular: Regular rate, Normal S1, Normal S2 Lungs: Other (few rhonchi) Abdomen: Bowel sounds, Soft, Obese Extremities: Edema Neurological: Sensation intact Skin: no Rash Psych/Mental Status: Other (agitated, uncooperative) - Procedures Procedures: Procedures Procedure Code Date ARTERY-VEIN NONAUTOGRAFT 38386 06/22/16 BYPASS L BRACH ART TO UP ARM VEIN W NONAUT SUB, OPEN 16166AH 06/22/16 FLUOROSCOPY OF SUP VENA CAVA USING [facility] CONTRAST, GUIDANCE [id number] 06/22/16 INSERTION OF INFUSION DEV INTO SUP VENA CAVA, PERC APPROACH [id number] 06/22/16 PLACE CATHETER IN VEIN [address]22[address] 06/22/16 Assessment/Plan - Problem List Patient Problems: All Active Problems MEDICAL EVALUATION PER DR FRY (Acute) - Assessment Assessment: esrd on hd persistent cellulitis b/l lower ext acute on chronic anemia possible gi bleed ohs chronic a. fib hypothyroid anasarca functional quadriplegia chronic venous stasis dermatitis acute decomp psychosis hypokalemia, hypomagnesemia s/p left avg - Plan Plan: hgb/hct slightly improved to 8.7/25.8 agree w/ K replacement for hd today placement in progress
--- NOTE | 2016-07-08 18:12 | Infectious Disease Prog Note ---
Infectious Disease Subjective - Review of Systems Service Date: 07/08/16 Subjective: No change. Infectious Disease Objective - Results Result Diagrams: 07/07/16 06:00 07/08/16 05:00 Recent Labs: Laboratory Last Values WBC 4.6 Th/cmm (4.8-10.8) L 07/07/16 06:00 RBC 2.90 Mil/cmm (4.30-5.70) L 07/07/16 06:00 Hgb 8.3 gm/dL (13.2-17.3) L 07/07/16 06:00 Hct 25.2 % (39.0-49.0) L 07/07/16 06:00 MCV 86.8 fl (80-99) 07/07/16 06:00 MCH 28.6 pg (26.0-30.0) 07/07/16 06:00 MCHC Differential 32.9 pg (28.0-36.0) 07/07/16 06:00 RDW 15.2 % (11.5-20.0) 07/07/16 06:00 Plt Count 102 Th/cmm (150-400) L 07/07/16 06:00 MPV 8.6 fl 07/07/16 06:00 Neutrophils % 56.8 % (40.0-80.0) 07/07/16 06:00 Band Neutrophils % 0 % (0-10) 07/04/16 04:58 Lymphocytes % 18.4 % (20.0-50.0) L 07/07/16 06:00 Monocytes % 13.8 % (2.0-10.0) H 07/07/16 06:00 Eosinophils % 11.0 % (0.0-5.0) H 07/07/16 06:00 Basophils % 0.0 % (0.0-2.0) 07/07/16 06:00 Neutrophils (Manual) 59 % (40-80) 07/05/16 12:15 Lymphocytes 13 % (20-50) L 07/05/16 12:15 Monocytes 16 % (2-10) H 07/05/16 12:15 Eosinophils 10 % (0-5) H 07/05/16 12:15 Basophils 2 % (0-3) 07/05/16 12:15 Hypochromia 1+ 06/22/16 19:33 Platelet Estimate DECREASED PLATELETS (NORMAL) 07/05/16 12:15 Platelet Morphology NORMAL (NORMAL) 07/05/16 12:15 Polychromasia 1+ 07/03/16 05:30 Anisocytosis 1+ 07/05/16 12:15 RBC Morph Micro Appear ABNORMAL (NORMAL) 07/05/16 12:15 PT 12.7 SECONDS (9.5-11.5) H 07/01/16 06:57 INR 1.26 (0.5-1.4) 07/01/16 06:57 PTT (Actin FS) 28.3 SECONDS (26.0-38.0) 06/28/16 04:38 Specimen Source art 06/22/16 20:03 Sample Site Right Radial 06/22/16 20:03 pH 7.49 (7.35-7.45) H 06/22/16 20:03 pCO2 34.0 mmHg (35.0-45.0) L 06/22/16 20:03 pO2 97.0 mmHg (80.0-100.0) 06/22/16 20:03 HCO3 25.9 mmol/L (20.0-26.0) 06/22/16 20:03 Base Excess 2.8 mmol/L (-3.0-3.0) 06/22/16 20:03 O2 Saturation 98.0 % (92.0-100.0) 06/22/16 20:03 Estuardo Test P 06/22/16 20:03 Vent Rate NA 06/22/16 20:03 Inspired O2 21 06/22/16 20:03 Tidal Volume NA 06/22/16 20:03 PEEP NA 06/22/16 20:03 Pressure (ins/psv/peep) NA 06/22/16 20:03 Critical Value RPINEIRA 06/22/16 20:03 Sodium 131 mEq/L (136-145) L 07/08/16 05:00 Potassium 3.7 mEq/L (3.5-5.1) 07/08/16 05:00 Chloride 100 mEq/L (98-107) 07/08/16 05:00 Carbon Dioxide 26.4 mEq/L (21.0-31.0) 07/08/16 05:00 Anion Gap 8.3 (7.0-16.0) 07/08/16 05:00 BUN 31 mg/dL (7-25) H 07/08/16 05:00 Creatinine 3.1 mg/dL (0.7-1.3) H 07/08/16 05:00 Est GFR ( Amer) 27.7 ml/min (>90) 07/08/16 05:00 Est GFR (Non-Af Amer) 22.9 ml/min 07/08/16 05:00 BUN/Creatinine Ratio 10.0 07/08/16 05:00 Glucose 95 mg/dL (70-105) 07/08/16 05:00 Calcium 8.6 mg/dL (8.6-10.3) 07/08/16 05:00 Phosphorus 3.5 mg/dL (2.5-5.0) 07/08/16 05:00 Magnesium 2.0 mg/dL (1.9-2.7) 07/07/16 06:00 Iron 42 ug/dL (38-169) 06/28/16 04:38 TIBC 269 ug/dL (250-450) 06/28/16 04:38 Iron Saturation 16 % (15-55) 06/28/16 04:38 Unsaturated IBC 227 ug/dL (111-343) 06/28/16 04:38 Ferritin 150 ng/mL (30-400) 06/26/16 08:30 Total Bilirubin 4.0 mg/dL (0.3-1.0) H 07/01/16 06:57 Direct Bilirubin 0.70 mg/dL (0.0-0.2) H 06/28/16 04:38 GGTP 14 IU/L (0-65) 06/28/16 04:38 AST 64 U/L (13-39) H 07/01/16 06:57 ALT 16 U/L (7-52) 07/01/16 06:57 Alkaline Phosphatase 94 U/L (34-104) 07/01/16 06:57 Ammonia 105 umol/L (16-53) H 07/02/16 06:40 Troponin I < 0.01 ng/mL (0.01-0.05) L 06/22/16 19:33 B-Natriuretic Peptide 668.0 pg/mL (5.0-100.0) H 06/22/16 19:33 Total Protein 7.5 gm/dL (6.0-8.3) 07/01/16 06:57 Albumin 2.8 gm/dL (4.2-5.5) L 07/01/16 06:57 Globulin 4.7 gm/dL 07/01/16 06:57 Albumin/Globulin Ratio 0.6 (1.0-1.8) L 07/01/16 06:57 Amylase 28 U/L (29-103) L 07/02/16 06:40 Lipase 31 U/L (11-82) 07/02/16 06:40 Urine Source CLEAN C 06/29/16 05:55 Urine Color YELLOW 06/29/16 05:55 Urine Clarity HAZY (CLEAR) 06/29/16 05:55 Urine pH 5.5 06/29/16 05:55 Ur Specific [place] 1.015 (1.005-1.030) 06/29/16 05:55 Urine Protein 30 mg/dL (NEGATIVE) H 06/29/16 05:55 Urine Glucose (UA) NEGATIVE mg/dL (NEGATIVE) 06/29/16 05:55 Urine Ketones NEGATIVE mg/dL (NEGATIVE) 06/29/16 05:55 Urine Blood NEGATIVE (NEGATIVE) 06/29/16 05:55 Urine Nitrate NEGATIVE (NEGATIVE) 06/29/16 05:55 Urine Bilirubin NEGATIVE (NEGATIVE) 06/29/16 05:55 Urine Urobilinogen 0.2 E.U./dL (0.2 - 1.0) 06/29/16 05:55 Ur Leukocyte Esterase TRACE (NEGATIVE) H 06/29/16 05:55 Urine RBC 0-2 /hpf (0-5) H 06/29/16 05:55 Urine WBC 6-10 /hpf (0-5) H 06/29/16 05:55 Ur Epithelial Cells FEW /lpf (FEW) 06/29/16 05:55 Urine Bacteria MANY /hpf (NONE SEEN) 06/29/16 05:55 Stool Occult Blood POSITIVE (NEGATIVE) 06/24/16 16:00 Random Vancomycin 13.4 ug/mL (5.0-40.0) 06/28/16 04:38 RPR NONREACTIVE (NONREACTIVE) 06/22/16 19:33 Hepatitis A IgM Ab Negative (Negative) 06/29/16 05:49 Hep Bs Antigen Negative (Negative) 06/29/16 05:49 Hep B Core IgM Ab Negative (Negative) 06/29/16 05:49 Hepatitis C Antibody >11.0 s/co ratio (0.0-0.9) H 06/29/16 05:49 Blood Type A POSITIVE 06/28/16 04:38 Antibody Screen NEGATIVE 06/28/16 04:38 Crossmatch See Detail 06/28/16 04:38 - Physical Exam Vitals and I&O: Vital Signs Temp 98.7 F 07/08/16 16:00 Pulse 86 07/08/16 16:00 Resp 20 07/08/16 16:00 BP 110/58 07/08/16 16:00 Pulse Ox 100 07/08/16 16:00 Intake & Output 07/07/16 07/08/16 07/08/16 18:59 06:59 18:59 Intake Total 500 200 Output Total 500 Balance 0 200 Intake: Oral 500 200 Output: Urine 500 Other: # Voids 3 1 Stool Characteristics Soft Active Medications: Current Medications Acetaminophen (Tylenol) 325 mg PO Q6HR PRN PRN Reason: Mild Pain or Fever >101 Stop: 08/22/16 20:30 Albuterol/Ipratropium (Duoneb Neb) 3 ml HHN Q2HR PRN PRN Reason: Shortness of Breath or Wheeze Aspirin (Ecotrin) 325 mg PO DAILY [facility] Stop: 09/03/16 09:14 Last Admin: 07/08/16 09:17 Dose: 325 mg Carvedilol (Coreg) 12.5 mg PO BID [facility] Stop: 09/05/16 16:59 Last Admin: 07/08/16 09:17 Dose: Not Given Cholecalciferol (Vitamin D3) 2,000 iu PO DAILY [facility] Stop: 08/23/16 08:59 Last Admin: 07/08/16 09:17 Dose: 2,000 iu Diltiazem HCl (Cardizem) 60 mg PO Q6HR [facility] Stop: 09/04/16 11:59 Last Admin: 07/08/16 12:11 Dose: 60 mg Diphenhydramine HCl (Benadryl 50 Mg/Ml) 50 mg IM Q8HR PRN PRN Reason: Agitation Stop: 08/25/16 12:10 Docusate Sodium (Colace) 100 mg PO BID [facility] Stop: 08/22/16 16:59 Last Admin: 07/08/16 09:17 Dose: 100 mg Haloperidol Lactate (Haldol) 5 mg IM Q8HR PRN PRN Reason: Agitation Stop: 08/25/16 12:10 Levothyroxine Sodium (Synthroid) 0.05 mg PO QDAC [facility] Stop: 08/23/16 07:29 Last Admin: 07/08/16 07:30 Dose: 0.05 mg Miscellaneous (Clinical Monitoring) 1 ea MC PRN PRN PRN Reason: RENAL DOSING Stop: 08/31/16 16:27 Morphine Sulfate (Morphine) 1 mg IV Q4H PRN PRN Reason: SEVERE PAIN Stop: 08/22/16 04:40 Last Admin: 07/08/16 14:34 Dose: 1 mg Ondansetron HCl (Zofran Odt) 4 mg PO Q6HR PRN PRN Reason: Nausea / Vomiting Stop: 08/22/16 20:30 Pantoprazole Sodium (Protonix) 40 mg PO DAILY [facility] Stop: 08/23/16 08:59 Last Admin: 07/08/16 09:17 Dose: 40 mg Quetiapine Fumarate (Seroquel) 100 mg PO TID [facility] PRN Reason: Protocol Stop: 08/26/16 08:59 Last Admin: 07/08/16 14:35 Dose: Not Given Vitamin B Complex/Vit C/Folic Acid (Vitamin B Complex W/Vitamin C) 1 tab PO DAILY [facility] Stop: 08/23/16 08:59 Last Admin: 07/08/16 09:19 Dose: 1 tab General: no acute distress, other (obese) HEENT: atraumatic, normocephalic, PERRLA, EOMI Neck: supple, no thyromegaly, no lymphadenopathy Cardiovascular: S1S2, regular Lungs: clear to auscultation bilaterally, clear to percussion Abdomen: soft, no tender, no distended Extremities: no cyanosis, no clubbing, no edema Neurological: awake, alert, oriented, CN 2-12 intact Skin: intact - Procedures Procedures: Procedures Procedure Code Date ARTERY-VEIN NONAUTOGRAFT 12026 06/22/16 BYPASS L BRACH ART TO UP ARM VEIN W NONAUT SUB, OPEN [id number] 06/22/16 FLUOROSCOPY OF SUP VENA CAVA USING [facility] CONTRAST, GUIDANCE [id number] 02/03/17 INSERTION OF INFUSION DEV INTO SUP VENA CAVA, PERC APPROACH [id number] 06/22/[address] PL[address] CATHETER IN VEIN [address]113 06/22/16 Infectious Disease Assmt/Plan - Problem List Patient Problems: All Active Problems MEDICAL EVALUATION PER DR FRY (Acute) - Assessment Assessment: 1. Cellulitis of legs. improved. treated. 2. Lymphedema of legs. 3. CKD 5 on HD. 4. Morbid obesity. - Plan Plan: Continue the skin care. DC plan.
[2016-07-09] MEDS: Morphine Sulfate 2 mg/mL 1mL Syr IV PRN ×4 (01:26→23:14)
[2016-07-09] MEDS: Diltiazem 30 mg Tab PO SCH ×3 (01:42→23:14)
[2016-07-09] MEDS: Pantoprazole 40 mg EC Tab PO SCH (08:48)
[2016-07-09] MEDS: Levothyroxine 0.05 Mg Tab PO SCH (08:49)
[2016-07-09] MEDS: Aspirin 325 mg EC PO SCH (08:49)
[2016-07-09] MEDS: Vitamin B Complex w/Vitamin C Tab PO SCH (11:34)
--- NOTE | 2016-07-09 15:27 | General Progress Note ---
Subjective - Review of Systems Service Date: 07/09/16 Subjective: sleeping, comfortable Objective - Results Result Diagrams: 07/07/16 06:00 07/08/16 05:00 Recent Labs: Laboratory Last Values WBC 4.6 Th/cmm (4.8-10.8) L 07/07/16 06:00 RBC 2.90 Mil/cmm (4.30-5.70) L 07/07/16 06:00 Hgb 8.3 gm/dL (13.2-17.3) L 07/07/16 06:00 Hct 25.2 % (39.0-49.0) L 07/07/16 06:00 MCV 86.8 fl (80-99) 07/07/16 06:00 MCH 28.6 pg (26.0-30.0) 07/07/16 06:00 MCHC Differential 32.9 pg (28.0-36.0) 07/07/16 06:00 RDW 15.2 % (11.5-20.0) 07/07/16 06:00 Plt Count 102 Th/cmm (150-400) L 07/07/16 06:00 MPV 8.6 fl 07/07/16 06:00 Neutrophils % 56.8 % (40.0-80.0) 07/07/16 06:00 Band Neutrophils % 0 % (0-10) 07/04/16 04:58 Lymphocytes % 18.4 % (20.0-50.0) L 07/07/16 06:00 Monocytes % 13.8 % (2.0-10.0) H 07/07/16 06:00 Eosinophils % 11.0 % (0.0-5.0) H 07/07/16 06:00 Basophils % 0.0 % (0.0-2.0) 07/07/16 06:00 Neutrophils (Manual) 59 % (40-80) 07/05/16 12:15 Lymphocytes 13 % (20-50) L 07/05/16 12:15 Monocytes 16 % (2-10) H 07/05/16 12:15 Eosinophils 10 % (0-5) H 07/05/16 12:15 Basophils 2 % (0-3) 07/05/16 12:15 Hypochromia 1+ 06/22/16 19:33 Platelet Estimate DECREASED PLATELETS (NORMAL) 07/05/16 12:15 Platelet Morphology NORMAL (NORMAL) 07/05/16 12:15 Polychromasia 1+ 07/03/16 05:30 Anisocytosis 1+ 07/05/16 12:15 RBC Morph Micro Appear ABNORMAL (NORMAL) 07/05/16 12:15 PT 12.7 SECONDS (9.5-11.5) H 07/01/16 06:57 INR 1.26 (0.5-1.4) 07/01/16 06:57 PTT (Actin FS) 28.3 SECONDS (26.0-38.0) 06/28/16 04:38 Specimen Source art 06/22/16 20:03 Sample Site Right Radial 06/22/16 20:03 pH 7.49 (7.35-7.45) H 06/22/16 20:03 pCO2 34.0 mmHg (35.0-45.0) L 06/22/16 20:03 pO2 97.0 mmHg (80.0-100.0) 06/22/16 20:03 HCO3 25.9 mmol/L (20.0-26.0) 06/22/16 20:03 Base Excess 2.8 mmol/L (-3.0-3.0) 06/22/16 20:03 O2 Saturation 98.0 % (92.0-100.0) 06/22/16 20:03 Estuardo Test P 06/22/16 20:03 Vent Rate NA 06/22/16 20:03 Inspired O2 21 06/22/16 20:03 Tidal Volume NA 06/22/16 20:03 PEEP NA 06/22/16 20:03 Pressure (ins/psv/peep) NA 06/22/16 20:03 Critical Value RPINEIRA 06/22/16 20:03 Sodium 131 mEq/L (136-145) L 07/08/16 05:00 Potassium 3.7 mEq/L (3.5-5.1) 07/08/16 05:00 Chloride 100 mEq/L (98-107) 07/08/16 05:00 Carbon Dioxide 26.4 mEq/L (21.0-31.0) 07/08/16 05:00 Anion Gap 8.3 (7.0-16.0) 07/08/16 05:00 BUN 31 mg/dL (7-25) H 07/08/16 05:00 Creatinine 3.1 mg/dL (0.7-1.3) H 07/08/16 05:00 Est GFR ( Amer) 27.7 ml/min (>90) 07/08/16 05:00 Est GFR (Non-Af Amer) 22.9 ml/min 07/08/16 05:00 BUN/Creatinine Ratio 10.0 07/08/16 05:00 Glucose 95 mg/dL (70-105) 07/08/16 05:00 Calcium 8.6 mg/dL (8.6-10.3) 07/08/16 05:00 Phosphorus 3.5 mg/dL (2.5-5.0) 07/08/16 05:00 Magnesium 2.0 mg/dL (1.9-2.7) 07/07/16 06:00 Iron 42 ug/dL (38-169) 06/28/16 04:38 TIBC 269 ug/dL (250-450) 06/28/16 04:38 Iron Saturation 16 % (15-55) 06/28/16 04:38 Unsaturated IBC 227 ug/dL (111-343) 06/28/16 04:38 Ferritin 150 ng/mL (30-400) 06/26/16 08:30 Total Bilirubin 4.0 mg/dL (0.3-1.0) H 07/01/16 06:57 Direct Bilirubin 0.70 mg/dL (0.0-0.2) H 06/28/16 04:38 GGTP 14 IU/L (0-65) 06/28/16 04:38 AST 64 U/L (13-39) H 07/01/16 06:57 ALT 16 U/L (7-52) 07/01/16 06:57 Alkaline Phosphatase 94 U/L (34-104) 07/01/16 06:57 Ammonia 105 umol/L (16-53) H 07/02/16 06:40 Troponin I < 0.01 ng/mL (0.01-0.05) L 06/22/16 19:33 B-Natriuretic Peptide 668.0 pg/mL (5.0-100.0) H 06/22/16 19:33 Total Protein 7.5 gm/dL (6.0-8.3) 07/01/16 06:57 Albumin 2.8 gm/dL (4.2-5.5) L 07/01/16 06:57 Globulin 4.7 gm/dL 07/01/16 06:57 Albumin/Globulin Ratio 0.6 (1.0-1.8) L 07/01/16 06:57 Amylase 28 U/L (29-103) L 07/02/16 06:40 Lipase 31 U/L (11-82) 07/02/16 06:40 Urine Source CLEAN C 06/29/16 05:55 Urine Color YELLOW 06/29/16 05:55 Urine Clarity HAZY (CLEAR) 06/29/16 05:55 Urine pH 5.5 06/29/16 05:55 Ur Specific [place] 1.015 (1.005-1.030) 06/29/16 05:55 Urine Protein 30 mg/dL (NEGATIVE) H 06/29/16 05:55 Urine Glucose (UA) NEGATIVE mg/dL (NEGATIVE) 06/29/16 05:55 Urine Ketones NEGATIVE mg/dL (NEGATIVE) 06/29/16 05:55 Urine Blood NEGATIVE (NEGATIVE) 06/29/16 05:55 Urine Nitrate NEGATIVE (NEGATIVE) 06/29/16 05:55 Urine Bilirubin NEGATIVE (NEGATIVE) 06/29/16 05:55 Urine Urobilinogen 0.2 E.U./dL (0.2 - 1.0) 06/29/16 05:55 Ur Leukocyte Esterase TRACE (NEGATIVE) H 06/29/16 05:55 Urine RBC 0-2 /hpf (0-5) H 06/29/16 05:55 Urine WBC 6-10 /hpf (0-5) H 06/29/16 05:55 Ur Epithelial Cells FEW /lpf (FEW) 06/29/16 05:55 Urine Bacteria MANY /hpf (NONE SEEN) 06/29/16 05:55 Stool Occult Blood POSITIVE (NEGATIVE) 06/24/16 16:00 Random Vancomycin 13.4 ug/mL (5.0-40.0) 06/28/16 04:38 RPR NONREACTIVE (NONREACTIVE) 06/22/16 19:33 Hepatitis A IgM Ab Negative (Negative) 06/29/16 05:49 Hep Bs Antigen Negative (Negative) 06/29/16 05:49 Hep B Core IgM Ab Negative (Negative) 06/29/16 05:49 Hepatitis C Antibody >11.0 s/co ratio (0.0-0.9) H 06/29/16 05:49 Blood Type A POSITIVE 06/28/16 04:38 Antibody Screen NEGATIVE 06/28/16 04:38 Crossmatch See Detail 06/28/16 04:38 - Physical Exam Vitals and I&O: Vital Signs Temp 98.2 F 07/09/16 15:00 Pulse 80 07/09/16 15:00 Resp 18 07/09/16 15:00 BP 101/56 07/09/16 15:00 Pulse Ox 95 07/09/16 15:00 Intake & Output 07/08/16 07/09/16 07/09/16 18:59 06:59 18:59 Intake Total 1500 2200 Output Total 1200 1200 Balance 300 1000 Intake: Oral 1500 2200 Output: Urine 1200 1200 Other: # Voids 3 3 # Bowel Movements 1 Stool Characteristics Soft Soft Active Medications: Current Medications Acetaminophen (Tylenol) 325 mg PO Q6HR PRN PRN Reason: Mild Pain or Fever >101 Stop: 08/22/16 20:30 Albuterol/Ipratropium (Duoneb Neb) 3 ml HHN Q2HR PRN PRN Reason: Shortness of Breath or Wheeze Aspirin (Ecotrin) 325 mg PO DAILY [facility] Stop: 09/03/16 09:14 Last Admin: 07/09/16 08:49 Dose: 325 mg Carvedilol (Coreg) 12.5 mg PO BID [facility] Stop: 09/05/16 16:59 Last Admin: 07/09/16 09:14 Dose: Not Given Cholecalciferol (Vitamin D3) 2,000 iu PO DAILY [facility] Stop: 08/23/16 08:59 Last Admin: 07/09/16 08:48 Dose: 2,000 iu Diltiazem HCl (Cardizem) 60 mg PO Q6HR [facility] Stop: 09/04/16 11:59 Last Admin: 07/09/16 11:34 Dose: 60 mg Diphenhydramine HCl (Benadryl 50 Mg/Ml) 50 mg IM Q8HR PRN PRN Reason: Agitation Stop: 08/25/16 12:10 Docusate Sodium (Colace) 100 mg PO BID [facility] Stop: 08/22/16 16:59 Last Admin: 07/09/16 08:48 Dose: 100 mg Haloperidol Lactate (Haldol) 5 mg IM Q8HR PRN PRN Reason: Agitation Stop: 08/25/16 12:10 Levothyroxine Sodium (Synthroid) 0.05 mg PO QDAC [facility] Stop: 08/23/16 07:29 Last Admin: 07/09/16 08:49 Dose: 0.05 mg Miscellaneous (Clinical Monitoring) 1 ea MC PRN PRN PRN Reason: RENAL DOSING Stop: 08/31/16 16:27 Morphine Sulfate (Morphine) 1 mg IV Q4H PRN PRN Reason: SEVERE PAIN Stop: 08/22/16 04:40 Last Admin: 07/09/16 14:20 Dose: 1 mg Ondansetron HCl (Zofran Odt) 4 mg PO Q6HR PRN PRN Reason: Nausea / Vomiting Stop: 08/22/16 20:30 Pantoprazole Sodium (Protonix) 40 mg PO DAILY [facility] Stop: 08/23/16 08:59 Last Admin: 07/09/16 08:48 Dose: 40 mg Quetiapine Fumarate (Seroquel) 100 mg PO TID MARQUISE PRN Reason: Protocol Stop: 08/26/16 08:59 Last Admin: 07/09/16 08:48 Dose: 100 mg Vitamin B Complex/Vit C/Folic Acid (Vitamin B Complex W/Vitamin C) 1 tab PO DAILY [facility] Stop: 08/23/16 08:59 Last Admin: 07/09/16 11:34 Dose: 1 tab General: Alert, No acute distress HEENT: Atraumatic, Mucous membr. moist/pink Neck: Supple, +2 carotid pulse wo bruit Cardiovascular: Regular rate, Normal S1, Normal S2 Lungs: Other (rhonchi) Abdomen: Bowel sounds, Soft Extremities: Edema ((+) 3 bipedal edema) Neurological: Sensation intact Skin: Other (discoloration lower ext) - Procedures Procedures: Procedures Procedure Code Date ARTERY-VEIN NONAUTOGRAFT 53663 06/22/16 BYPASS L BRACH ART TO UP ARM VEIN W NONAUT SUB, OPEN [id number] 06/22/16 FLUOROSCOPY OF SUP VENA CAVA USING OT CONTRAST, GUIDANCE [id number] 06/22/16 INSERTION OF INFUSION DEV INTO SUP VENA CAVA, PERC APPROACH [id number] 06/22/16 PLACE CATHETER IN VEIN [address] 06/22/16 Assessment/Plan - Problem List Patient Problems: All Active Problems MEDICAL EVALUATION PER DR FRY (Acute) - Assessment Assessment: esrd on hd persistent cellulitis b/l lower ext acute on chronic anemia possible gi bleed ohs chronic a. fib hypothyroid anasarca functional quadriplegia chronic venous stasis dermatitis acute decomp psychosis hypokalemia, hypomagnesemia s/p left avg - Plan Plan: hgb/hct slightly improved to 8.7/25.8 agree w/ K replacement for hd in am placement in progress
[2016-07-10] MEDS: Diltiazem 30 mg Tab PO SCH ×4 (06:32→18:29)
[2016-07-10] MEDS: Levothyroxine 0.05 Mg Tab PO SCH (07:59)
[2016-07-10] MEDS: Aspirin 325 mg EC PO SCH (09:23)
[2016-07-10] MEDS: Pantoprazole 40 mg EC Tab PO SCH (09:24)
[2016-07-10] MEDS: Vitamin B Complex w/Vitamin C Tab PO SCH (09:24)
--- NOTE | 2016-07-10 09:42 | Progress Notes ---
SUBJECTIVE: The patient was seen in his room lying in his bed and the patient is still complaining and upset that he wants to be transferred out from the hospital. He is stating that he can live with his friends, but unsure if his friends would be able to take care of his medical condition. Explained to the patient that the case management is already looking for a placement for him. OBJECTIVE: HEENT: Head is normocephalic, atraumatic. Pupils are equally round and reactive. Bilateral conjunctivae are clear. CARDIOVASCULAR: S1 and S2. No murmurs. PULMONARY: Minimal inspiratory wheezing noted. GASTROINTESTINAL: Soft and nontender. No guarding. MUSCULOSKELETAL: Bilateral lower extremity edema. SKIN: Fragile. No rash. ASSESSMENT: 1. Bilateral lower extremity chronic cellulitis. 2. End-stage renal disease, hemodialysis dependent. 3. Chronic anemia. 4. Chronic atrial fibrillation. 5. Hypothyroidism. 6. Anasarca. 7. Quadriplegia. 8. Schizophrenia. 9. Obesity. PLAN: We will keep the patient for monitoring and we will still follow with renal doctor for dialysis and we will follow up with the psych doctor for any psychiatric issue, rule out schizoaffective disorder. JOB# [id number]
[2016-07-10] MEDS ORDERED: Albuterol/Ipratropium Neb 3 ML AERS HHN PRN (09:52)
--- NOTE | 2016-07-10 13:43 | Infectious Disease Prog Note ---
Infectious Disease Subjective - Review of Systems Service Date: 07/10/16 Subjective: No change. Infectious Disease Objective - Results Result Diagrams: 07/07/16 06:00 07/08/16 05:00 Recent Labs: Laboratory Last Values WBC 4.6 Th/cmm (4.8-10.8) L 07/07/16 06:00 RBC 2.90 Mil/cmm (4.30-5.70) L 07/07/16 06:00 Hgb 8.3 gm/dL (13.2-17.3) L 07/07/16 06:00 Hct 25.2 % (39.0-49.0) L 07/07/16 06:00 MCV 86.8 fl (80-99) 07/07/16 06:00 MCH 28.6 pg (26.0-30.0) 07/07/16 06:00 MCHC Differential 32.9 pg (28.0-36.0) 07/07/16 06:00 RDW 15.2 % (11.5-20.0) 07/07/16 06:00 Plt Count 102 Th/cmm (150-400) L 07/07/16 06:00 MPV 8.6 fl 07/07/16 06:00 Neutrophils % 56.8 % (40.0-80.0) 07/07/16 06:00 Band Neutrophils % 0 % (0-10) 07/04/16 04:58 Lymphocytes % 18.4 % (20.0-50.0) L 07/07/16 06:00 Monocytes % 13.8 % (2.0-10.0) H 07/07/16 06:00 Eosinophils % 11.0 % (0.0-5.0) H 07/07/16 06:00 Basophils % 0.0 % (0.0-2.0) 07/07/16 06:00 Neutrophils (Manual) 59 % (40-80) 07/05/16 12:15 Lymphocytes 13 % (20-50) L 07/05/16 12:15 Monocytes 16 % (2-10) H 07/05/16 12:15 Eosinophils 10 % (0-5) H 07/05/16 12:15 Basophils 2 % (0-3) 07/05/16 12:15 Hypochromia 1+ 06/22/16 19:33 Platelet Estimate DECREASED PLATELETS (NORMAL) 07/05/16 12:15 Platelet Morphology NORMAL (NORMAL) 07/05/16 12:15 Polychromasia 1+ 07/03/16 05:30 Anisocytosis 1+ 07/05/16 12:15 RBC Morph Micro Appear ABNORMAL (NORMAL) 07/05/16 12:15 PT 12.7 SECONDS (9.5-11.5) H 07/01/16 06:57 INR 1.26 (0.5-1.4) 07/01/16 06:57 PTT (Actin FS) 28.3 SECONDS (26.0-38.0) 06/28/16 04:38 Specimen Source art 06/22/16 20:03 Sample Site Right Radial 06/22/16 20:03 pH 7.49 (7.35-7.45) H 06/22/16 20:03 pCO2 34.0 mmHg (35.0-45.0) L 06/22/16 20:03 pO2 97.0 mmHg (80.0-100.0) 06/22/16 20:03 HCO3 25.9 mmol/L (20.0-26.0) 06/22/16 20:03 Base Excess 2.8 mmol/L (-3.0-3.0) 06/22/16 20:03 O2 Saturation 98.0 % (92.0-100.0) 06/22/16 20:03 Estuardo Test P 06/22/16 20:03 Vent Rate NA 06/22/16 20:03 Inspired O2 21 06/22/16 20:03 Tidal Volume NA 06/22/16 20:03 PEEP NA 06/22/16 20:03 Pressure (ins/psv/peep) NA 06/22/16 20:03 Critical Value RPINEIRA 06/22/16 20:03 Sodium 131 mEq/L (136-145) L 07/08/16 05:00 Potassium 3.7 mEq/L (3.5-5.1) 07/08/16 05:00 Chloride 100 mEq/L (98-107) 07/08/16 05:00 Carbon Dioxide 26.4 mEq/L (21.0-31.0) 07/08/16 05:00 Anion Gap 8.3 (7.0-16.0) 07/08/16 05:00 BUN 31 mg/dL (7-25) H 07/08/16 05:00 Creatinine 3.1 mg/dL (0.7-1.3) H 07/08/16 05:00 Est GFR ( Amer) 27.7 ml/min (>90) 07/08/16 05:00 Est GFR (Non-Af Amer) 22.9 ml/min 07/08/16 05:00 BUN/Creatinine Ratio 10.0 07/08/16 05:00 Glucose 95 mg/dL (70-105) 07/08/16 05:00 Calcium 8.6 mg/dL (8.6-10.3) 07/08/16 05:00 Phosphorus 3.5 mg/dL (2.5-5.0) 07/08/16 05:00 Magnesium 2.0 mg/dL (1.9-2.7) 07/07/16 06:00 Iron 42 ug/dL (38-169) 06/28/16 04:38 TIBC 269 ug/dL (250-450) 06/28/16 04:38 Iron Saturation 16 % (15-55) 06/28/16 04:38 Unsaturated IBC 227 ug/dL (111-343) 06/28/16 04:38 Ferritin 150 ng/mL (30-400) 06/26/16 08:30 Total Bilirubin 4.0 mg/dL (0.3-1.0) H 07/01/16 06:57 Direct Bilirubin 0.70 mg/dL (0.0-0.2) H 06/28/16 04:38 GGTP 14 IU/L (0-65) 06/28/16 04:38 AST 64 U/L (13-39) H 07/01/16 06:57 ALT 16 U/L (7-52) 07/01/16 06:57 Alkaline Phosphatase 94 U/L (34-104) 07/01/16 06:57 Ammonia 105 umol/L (16-53) H 07/02/16 06:40 Troponin I < 0.01 ng/mL (0.01-0.05) L 06/22/16 19:33 B-Natriuretic Peptide 668.0 pg/mL (5.0-100.0) H 06/22/16 19:33 Total Protein 7.5 gm/dL (6.0-8.3) 07/01/16 06:57 Albumin 2.8 gm/dL (4.2-5.5) L 07/01/16 06:57 Globulin 4.7 gm/dL 07/01/16 06:57 Albumin/Globulin Ratio 0.6 (1.0-1.8) L 07/01/16 06:57 Amylase 28 U/L (29-103) L 07/02/16 06:40 Lipase 31 U/L (11-82) 07/02/16 06:40 Urine Source CLEAN C 06/29/16 05:55 Urine Color YELLOW 06/29/16 05:55 Urine Clarity HAZY (CLEAR) 06/29/16 05:55 Urine pH 5.5 06/29/16 05:55 Ur Specific [place] 1.015 (1.005-1.030) 06/29/16 05:55 Urine Protein 30 mg/dL (NEGATIVE) H 06/29/16 05:55 Urine Glucose (UA) NEGATIVE mg/dL (NEGATIVE) 06/29/16 05:55 Urine Ketones NEGATIVE mg/dL (NEGATIVE) 06/29/16 05:55 Urine Blood NEGATIVE (NEGATIVE) 06/29/16 05:55 Urine Nitrate NEGATIVE (NEGATIVE) 06/29/16 05:55 Urine Bilirubin NEGATIVE (NEGATIVE) 06/29/16 05:55 Urine Urobilinogen 0.2 E.U./dL (0.2 - 1.0) 06/29/16 05:55 Ur Leukocyte Esterase TRACE (NEGATIVE) H 06/29/16 05:55 Urine RBC 0-2 /hpf (0-5) H 06/29/16 05:55 Urine WBC 6-10 /hpf (0-5) H 06/29/16 05:55 Ur Epithelial Cells FEW /lpf (FEW) 06/29/16 05:55 Urine Bacteria MANY /hpf (NONE SEEN) 06/29/16 05:55 Stool Occult Blood POSITIVE (NEGATIVE) 06/24/16 16:00 Random Vancomycin 13.4 ug/mL (5.0-40.0) 06/28/16 04:38 RPR NONREACTIVE (NONREACTIVE) 06/22/16 19:33 Hepatitis A IgM Ab Negative (Negative) 06/29/16 05:49 Hep Bs Antigen Negative (Negative) 06/29/16 05:49 Hep B Core IgM Ab Negative (Negative) 06/29/16 05:49 Hepatitis C Antibody >11.0 s/co ratio (0.0-0.9) H 06/29/16 05:49 Blood Type A POSITIVE 06/28/16 04:38 Antibody Screen NEGATIVE 06/28/16 04:38 Crossmatch See Detail 06/28/16 04:38 - Physical Exam Vitals and I&O: Vital Signs Temp 97.7 F 07/10/16 11:00 Pulse 77 07/10/16 12:43 Resp 18 07/10/16 11:00 BP 115/64 07/10/16 11:00 Pulse Ox 99 07/10/16 11:00 Intake & Output 07/09/16 07/10/16 07/10/16 18:59 06:59 18:59 Intake Total 600 150 Balance 600 150 Intake: Oral 600 150 Other: # Voids 2 # Bowel Movements 1 Active Medications: Current Medications Acetaminophen (Tylenol) 325 mg PO Q6HR PRN PRN Reason: Mild Pain or Fever >101 Stop: 08/22/16 20:30 Albuterol/Ipratropium (Duoneb Neb) 3 ml HHN Q2HR PRN PRN Reason: Shortness of Breath or Wheeze Stop: 09/08/16 09:51 Aspirin (Ecotrin) 325 mg PO DAILY [facility] Stop: 09/03/16 09:14 Last Admin: 07/10/16 09:23 Dose: 325 mg Carvedilol (Coreg) 12.5 mg PO BID [facility] Stop: 09/05/16 16:59 Last Admin: 07/10/16 09:23 Dose: 12.5 mg Cholecalciferol (Vitamin D3) 2,000 iu PO DAILY [facility] Stop: 08/23/16 08:59 Last Admin: 07/10/16 09:24 Dose: 2,000 iu Diltiazem HCl (Cardizem) 60 mg PO Q6HR [facility] Stop: 09/04/16 11:59 Last Admin: 07/10/16 12:43 Dose: Not Given Diphenhydramine HCl (Benadryl 50 Mg/Ml) 50 mg IM Q8HR PRN PRN Reason: Agitation Stop: 08/25/16 12:10 Docusate Sodium (Colace) 100 mg PO BID [facility] Stop: 08/22/16 16:59 Last Admin: 07/10/16 09:24 Dose: 100 mg Haloperidol Lactate (Haldol) 5 mg IM Q8HR PRN PRN Reason: Agitation Stop: 08/25/16 12:10 Levothyroxine Sodium (Synthroid) 0.05 mg PO QDAC [facility] Stop: 08/23/16 07:29 Last Admin: 07/10/16 07:59 Dose: 0.05 mg Miscellaneous (Clinical Monitoring) 1 ea MC PRN PRN PRN Reason: RENAL DOSING Stop: 08/31/16 16:27 Morphine Sulfate (Morphine) 1 mg IV Q4H PRN PRN Reason: SEVERE PAIN Stop: 08/22/16 04:40 Last Admin: 07/09/16 23:14 Dose: 1 mg Ondansetron HCl (Zofran Odt) 4 mg PO Q6HR PRN PRN Reason: Nausea / Vomiting Stop: 08/22/16 20:30 Pantoprazole Sodium (Protonix) 40 mg PO DAILY [facility] Stop: 08/23/16 08:59 Last Admin: 07/10/16 09:24 Dose: 40 mg Quetiapine Fumarate (Seroquel) 100 mg PO TID MARQUISE PRN Reason: Protocol Stop: 08/26/16 08:59 Last Admin: 07/10/16 13:42 Dose: Not Given Vitamin B Complex/Vit C/Folic Acid (Vitamin B Complex W/Vitamin C) 1 tab PO DAILY [facility] Stop: 08/23/16 08:59 Last Admin: 07/10/16 09:24 Dose: 1 tab General: no acute distress, well developed, well nourished HEENT: atraumatic, normocephalic, PERRLA, EOMI, moist mucous membrane Neck: supple, no thyromegaly, no lymphadenopathy Cardiovascular: S1S2, regular Lungs: clear to auscultation bilaterally, clear to percussion Abdomen: soft, no tender, no distended Extremities: no cyanosis, no clubbing, no edema Neurological: awake, alert, oriented Skin: intact - Procedures Procedures: Procedures Procedure Code Date ARTERY-VEIN NONAUTOGRAFT 23017 06/22/16 BYPASS L BRACH ART TO UP ARM VEIN W NONAUT SUB, OPEN [id number] 06/22/16 FLUOROSCOPY OF SUP VENA CAVA USING OTH CONTRAST, GUIDANCE [id number] 06/22/16 INSERTION OF INFUSION DEV INTO SUP VENA CAVA, PERC APPROACH [id number] 06/22/[address] PL[address] CATHETER IN VEIN [address] 06/22/16 Infectious Disease Assmt/Plan - Problem List Patient Problems: All Active Problems MEDICAL EVALUATION PER DR FRY (Acute) - Assessment Assessment: 1. Cellulitis of legs. improved. treated. 2. Lymphedema of legs. 3. CKD 5 on HD. 4. Morbid obesity. - Plan Plan: Continue the skin care. DC plan.
--- NOTE | 2016-07-10 13:58 | General Progress Note ---
Subjective - Review of Systems Service Date: 07/10/16 Subjective: more agitated, uncooperative today Objective - Results Result Diagrams: 07/07/16 06:00 07/08/16 05:00 Recent Labs: Laboratory Last Values WBC 4.6 Th/cmm (4.8-10.8) L 07/07/16 06:00 RBC 2.90 Mil/cmm (4.30-5.70) L 07/07/16 06:00 Hgb 8.3 gm/dL (13.2-17.3) L 07/07/16 06:00 Hct 25.2 % (39.0-49.0) L 07/07/16 06:00 MCV 86.8 fl (80-99) 07/07/16 06:00 MCH 28.6 pg (26.0-30.0) 07/07/16 06:00 MCHC Differential 32.9 pg (28.0-36.0) 07/07/16 06:00 RDW 15.2 % (11.5-20.0) 07/07/16 06:00 Plt Count 102 Th/cmm (150-400) L 07/07/16 06:00 MPV 8.6 fl 07/07/16 06:00 Neutrophils % 56.8 % (40.0-80.0) 07/07/16 06:00 Band Neutrophils % 0 % (0-10) 07/04/16 04:58 Lymphocytes % 18.4 % (20.0-50.0) L 07/07/16 06:00 Monocytes % 13.8 % (2.0-10.0) H 07/07/16 06:00 Eosinophils % 11.0 % (0.0-5.0) H 07/07/16 06:00 Basophils % 0.0 % (0.0-2.0) 07/07/16 06:00 Neutrophils (Manual) 59 % (40-80) 07/05/16 12:15 Lymphocytes 13 % (20-50) L 07/05/16 12:15 Monocytes 16 % (2-10) H 07/05/16 12:15 Eosinophils 10 % (0-5) H 07/05/16 12:15 Basophils 2 % (0-3) 07/05/16 12:15 Hypochromia 1+ 06/22/16 19:33 Platelet Estimate DECREASED PLATELETS (NORMAL) 07/05/16 12:15 Platelet Morphology NORMAL (NORMAL) 07/05/16 12:15 Polychromasia 1+ 07/03/16 05:30 Anisocytosis 1+ 07/05/16 12:15 RBC Morph Micro Appear ABNORMAL (NORMAL) 07/05/16 12:15 PT 12.7 SECONDS (9.5-11.5) H 07/01/16 06:57 INR 1.26 (0.5-1.4) 07/01/16 06:57 PTT (Actin FS) 28.3 SECONDS (26.0-38.0) 06/28/16 04:38 Specimen Source art 06/22/16 20:03 Sample Site Right Radial 06/22/16 20:03 pH 7.49 (7.35-7.45) H 06/22/16 20:03 pCO2 34.0 mmHg (35.0-45.0) L 06/22/16 20:03 pO2 97.0 mmHg (80.0-100.0) 06/22/16 20:03 HCO3 25.9 mmol/L (20.0-26.0) 06/22/16 20:03 Base Excess 2.8 mmol/L (-3.0-3.0) 06/22/16 20:03 O2 Saturation 98.0 % (92.0-100.0) 06/22/16 20:03 Estuardo Test P 06/22/16 20:03 Vent Rate NA 06/22/16 20:03 Inspired O2 21 06/22/16 20:03 Tidal Volume NA 06/22/16 20:03 PEEP NA 06/22/16 20:03 Pressure (ins/psv/peep) NA 06/22/16 20:03 Critical Value RPINEIRA 06/22/16 20:03 Sodium 131 mEq/L (136-145) L 07/08/16 05:00 Potassium 3.7 mEq/L (3.5-5.1) 07/08/16 05:00 Chloride 100 mEq/L (98-107) 07/08/16 05:00 Carbon Dioxide 26.4 mEq/L (21.0-31.0) 07/08/16 05:00 Anion Gap 8.3 (7.0-16.0) 07/08/16 05:00 BUN 31 mg/dL (7-25) H 07/08/16 05:00 Creatinine 3.1 mg/dL (0.7-1.3) H 07/08/16 05:00 Est GFR ( Amer) 27.7 ml/min (>90) 07/08/16 05:00 Est GFR (Non-Af Amer) 22.9 ml/min 07/08/16 05:00 BUN/Creatinine Ratio 10.0 07/08/16 05:00 Glucose 95 mg/dL (70-105) 07/08/16 05:00 Calcium 8.6 mg/dL (8.6-10.3) 07/08/16 05:00 Phosphorus 3.5 mg/dL (2.5-5.0) 07/08/16 05:00 Magnesium 2.0 mg/dL (1.9-2.7) 07/07/16 06:00 Iron 42 ug/dL (38-169) 06/28/16 04:38 TIBC 269 ug/dL (250-450) 06/28/16 04:38 Iron Saturation 16 % (15-55) 06/28/16 04:38 Unsaturated IBC 227 ug/dL (111-343) 06/28/16 04:38 Ferritin 150 ng/mL (30-400) 06/26/16 08:30 Total Bilirubin 4.0 mg/dL (0.3-1.0) H 07/01/16 06:57 Direct Bilirubin 0.70 mg/dL (0.0-0.2) H 06/28/16 04:38 GGTP 14 IU/L (0-65) 06/28/16 04:38 AST 64 U/L (13-39) H 07/01/16 06:57 ALT 16 U/L (7-52) 07/01/16 06:57 Alkaline Phosphatase 94 U/L (34-104) 07/01/16 06:57 Ammonia 105 umol/L (16-53) H 07/02/16 06:40 Troponin I < 0.01 ng/mL (0.01-0.05) L 06/22/16 19:33 B-Natriuretic Peptide 668.0 pg/mL (5.0-100.0) H 06/22/16 19:33 Total Protein 7.5 gm/dL (6.0-8.3) 07/01/16 06:57 Albumin 2.8 gm/dL (4.2-5.5) L 07/01/16 06:57 Globulin 4.7 gm/dL 07/01/16 06:57 Albumin/Globulin Ratio 0.6 (1.0-1.8) L 07/01/16 06:57 Amylase 28 U/L (29-103) L 07/02/16 06:40 Lipase 31 U/L (11-82) 07/02/16 06:40 Urine Source CLEAN C 06/29/16 05:55 Urine Color YELLOW 06/29/16 05:55 Urine Clarity HAZY (CLEAR) 06/29/16 05:55 Urine pH 5.5 06/29/16 05:55 Ur Specific [place] 1.015 (1.005-1.030) 06/29/16 05:55 Urine Protein 30 mg/dL (NEGATIVE) H 06/29/16 05:55 Urine Glucose (UA) NEGATIVE mg/dL (NEGATIVE) 06/29/16 05:55 Urine Ketones NEGATIVE mg/dL (NEGATIVE) 06/29/16 05:55 Urine Blood NEGATIVE (NEGATIVE) 06/29/16 05:55 Urine Nitrate NEGATIVE (NEGATIVE) 06/29/16 05:55 Urine Bilirubin NEGATIVE (NEGATIVE) 06/29/16 05:55 Urine Urobilinogen 0.2 E.U./dL (0.2 - 1.0) 06/29/16 05:55 Ur Leukocyte Esterase TRACE (NEGATIVE) H 06/29/16 05:55 Urine RBC 0-2 /hpf (0-5) H 06/29/16 05:55 Urine WBC 6-10 /hpf (0-5) H 06/29/16 05:55 Ur Epithelial Cells FEW /lpf (FEW) 06/29/16 05:55 Urine Bacteria MANY /hpf (NONE SEEN) 06/29/16 05:55 Stool Occult Blood POSITIVE (NEGATIVE) 06/24/16 16:00 Random Vancomycin 13.4 ug/mL (5.0-40.0) 06/28/16 04:38 RPR NONREACTIVE (NONREACTIVE) 06/22/16 19:33 Hepatitis A IgM Ab Negative (Negative) 06/29/16 05:49 Hep Bs Antigen Negative (Negative) 06/29/16 05:49 Hep B Core IgM Ab Negative (Negative) 06/29/16 05:49 Hepatitis C Antibody >11.0 s/co ratio (0.0-0.9) H 06/29/16 05:49 Blood Type A POSITIVE 06/28/16 04:38 Antibody Screen NEGATIVE 06/28/16 04:38 Crossmatch See Detail 06/28/16 04:38 - Physical Exam Vitals and I&O: Vital Signs Temp 97.7 F 07/10/16 11:00 Pulse 77 07/10/16 12:43 Resp 18 07/10/16 11:00 BP 115/64 07/10/16 11:00 Pulse Ox 99 07/10/16 11:00 Intake & Output 07/09/16 07/10/16 07/10/16 18:59 06:59 18:59 Intake Total 600 150 Balance 600 150 Intake: Oral 600 150 Other: # Voids 2 # Bowel Movements 1 Active Medications: Current Medications Acetaminophen (Tylenol) 325 mg PO Q6HR PRN PRN Reason: Mild Pain or Fever >101 Stop: 08/22/16 20:30 Albuterol/Ipratropium (Duoneb Neb) 3 ml HHN Q2HR PRN PRN Reason: Shortness of Breath or Wheeze Stop: 09/08/16 09:51 Aspirin (Ecotrin) 325 mg PO DAILY [facility] Stop: 09/03/16 09:14 Last Admin: 07/10/16 09:23 Dose: 325 mg Carvedilol (Coreg) 12.5 mg PO BID [facility] Stop: 09/05/16 16:59 Last Admin: 07/10/16 09:23 Dose: 12.5 mg Cholecalciferol (Vitamin D3) 2,000 iu PO DAILY [facility] Stop: 08/23/16 08:59 Last Admin: 07/10/16 09:24 Dose: 2,000 iu Diltiazem HCl (Cardizem) 60 mg PO Q6HR [facility] Stop: 09/04/16 11:59 Last Admin: 07/10/16 12:43 Dose: Not Given Diphenhydramine HCl (Benadryl 50 Mg/Ml) 50 mg IM Q8HR PRN PRN Reason: Agitation Stop: 08/25/16 12:10 Docusate Sodium (Colace) 100 mg PO BID [facility] Stop: 08/22/16 16:59 Last Admin: 07/10/16 09:24 Dose: 100 mg Haloperidol Lactate (Haldol) 5 mg IM Q8HR PRN PRN Reason: Agitation Stop: 08/25/16 12:10 Levothyroxine Sodium (Synthroid) 0.05 mg PO QDAC [facility] Stop: 08/23/16 07:29 Last Admin: 07/10/16 07:59 Dose: 0.05 mg Miscellaneous (Clinical Monitoring) 1 ea MC PRN PRN PRN Reason: RENAL DOSING Stop: 08/31/16 16:27 Morphine Sulfate (Morphine) 1 mg IV Q4H PRN PRN Reason: SEVERE PAIN Stop: 08/22/16 04:40 Last Admin: 07/09/16 23:14 Dose: 1 mg Ondansetron HCl (Zofran Odt) 4 mg PO Q6HR PRN PRN Reason: Nausea / Vomiting Stop: 08/22/16 20:30 Pantoprazole Sodium (Protonix) 40 mg PO DAILY [facility] Stop: 08/23/16 08:59 Last Admin: 07/10/16 09:24 Dose: 40 mg Quetiapine Fumarate (Seroquel) 100 mg PO TID [facility] PRN Reason: Protocol Stop: 08/26/16 08:59 Last Admin: 07/10/16 13:42 Dose: Not Given Vitamin B Complex/Vit C/Folic Acid (Vitamin B Complex W/Vitamin C) 1 tab PO DAILY [facility] Stop: 08/23/16 08:59 Last Admin: 07/10/16 09:24 Dose: 1 tab General: Alert, No acute distress HEENT: Atraumatic, EOMI, Mucous membr. moist/pink Neck: Supple, +2 carotid pulse wo bruit Cardiovascular: Regular rate, Normal S1, Normal S2 Lungs: Other Abdomen: Bowel sounds, Soft Extremities: Edema ((+3) bipedal edema w/ discoloration) Neurological: Sensation intact Skin: no Rash Psych/Mental Status: Other (agitation) - Procedures Procedures: Procedures Procedure Code Date ARTERY-VEIN NONAUTOGRAFT 17110 06/22/16 BYPASS L BRACH ART TO UP ARM VEIN W NONAUT SUB, OPEN 35947DS 06/22/16 FLUOROSCOPY OF SUP VENA CAVA USING [facility] CONTRAST, GUIDANCE [id number] 06/22/16 INSERTION OF INFUSION DEV INTO SUP VENA CAVA, PERC APPROACH [id number] 06/22/16 PLACE CATHETER IN VEIN [address] 06/22/16 Assessment/Plan - Problem List Patient Problems: All Active Problems MEDICAL EVALUATION PER DR FRY (Acute) - Assessment Assessment: esrd on hd persistent cellulitis b/l lower ext acute on chronic anemia possible gi bleed ohs chronic a. fib hypothyroid anasarca functional quadriplegia chronic venous stasis dermatitis acute decomp psychosis hypokalemia, hypomagnesemia s/p left avg - Plan Plan: hgb/hct slightly improved to 8.7/25.8 agree w/ K replacement for hd today placement in progress
[2016-07-10] MEDS: Morphine Sulfate 2 mg/mL 1mL Syr IV PRN (20:35)
[2016-07-10] MEDS: Menthol/Zinc Oxide Oint 113gm Tube TP SCH (21:16)
[2016-07-11] MEDS: Morphine Sulfate 2 mg/mL 1mL Syr IV PRN ×2 (01:32→20:19)
[2016-07-11] MEDS ORDERED: Maalox 30 mL Cup PO ONE (02:05)
[2016-07-11] MEDS: Levothyroxine 0.05 Mg Tab PO SCH (07:36)
[2016-07-11] MEDS: Pantoprazole 40 mg EC Tab PO SCH (08:38)
[2016-07-11] MEDS: Aspirin 325 mg EC PO SCH (08:38)
[2016-07-11] MEDS: Vitamin B Complex w/Vitamin C Tab PO SCH (08:38)
[2016-07-11] MEDS: Menthol/Zinc Oxide Oint 113gm Tube TP SCH ×4 (08:39→20:14)
--- NOTE | 2016-07-11 11:46 | Infectious Disease Prog Note ---
Infectious Disease Subjective - Review of Systems Service Date: 07/11/16 Subjective: No change. Infectious Disease Objective - Results Result Diagrams: 07/07/16 06:00 07/08/16 05:00 Recent Labs: Laboratory Last Values WBC 4.6 Th/cmm (4.8-10.8) L 07/07/16 06:00 RBC 2.90 Mil/cmm (4.30-5.70) L 07/07/16 06:00 Hgb 8.3 gm/dL (13.2-17.3) L 07/07/16 06:00 Hct 25.2 % (39.0-49.0) L 07/07/16 06:00 MCV 86.8 fl (80-99) 07/07/16 06:00 MCH 28.6 pg (26.0-30.0) 07/07/16 06:00 MCHC Differential 32.9 pg (28.0-36.0) 07/07/16 06:00 RDW 15.2 % (11.5-20.0) 07/07/16 06:00 Plt Count 102 Th/cmm (150-400) L 07/07/16 06:00 MPV 8.6 fl 07/07/16 06:00 Neutrophils % 56.8 % (40.0-80.0) 07/07/16 06:00 Band Neutrophils % 0 % (0-10) 07/04/16 04:58 Lymphocytes % 18.4 % (20.0-50.0) L 07/07/16 06:00 Monocytes % 13.8 % (2.0-10.0) H 07/07/16 06:00 Eosinophils % 11.0 % (0.0-5.0) H 07/07/16 06:00 Basophils % 0.0 % (0.0-2.0) 07/07/16 06:00 Neutrophils (Manual) 59 % (40-80) 07/05/16 12:15 Lymphocytes 13 % (20-50) L 07/05/16 12:15 Monocytes 16 % (2-10) H 07/05/16 12:15 Eosinophils 10 % (0-5) H 07/05/16 12:15 Basophils 2 % (0-3) 07/05/16 12:15 Hypochromia 1+ 06/22/16 19:33 Platelet Estimate DECREASED PLATELETS (NORMAL) 07/05/16 12:15 Platelet Morphology NORMAL (NORMAL) 07/05/16 12:15 Polychromasia 1+ 07/03/16 05:30 Anisocytosis 1+ 07/05/16 12:15 RBC Morph Micro Appear ABNORMAL (NORMAL) 07/05/16 12:15 PT 12.7 SECONDS (9.5-11.5) H 07/01/16 06:57 INR 1.26 (0.5-1.4) 07/01/16 06:57 PTT (Actin FS) 28.3 SECONDS (26.0-38.0) 06/28/16 04:38 Specimen Source art 06/22/16 20:03 Sample Site Right Radial 06/22/16 20:03 pH 7.49 (7.35-7.45) H 06/22/16 20:03 pCO2 34.0 mmHg (35.0-45.0) L 06/22/16 20:03 pO2 97.0 mmHg (80.0-100.0) 06/22/16 20:03 HCO3 25.9 mmol/L (20.0-26.0) 06/22/16 20:03 Base Excess 2.8 mmol/L (-3.0-3.0) 06/22/16 20:03 O2 Saturation 98.0 % (92.0-100.0) 06/22/16 20:03 Estuardo Test P 06/22/16 20:03 Vent Rate NA 06/22/16 20:03 Inspired O2 21 06/22/16 20:03 Tidal Volume NA 06/22/16 20:03 PEEP NA 06/22/16 20:03 Pressure (ins/psv/peep) NA 06/22/16 20:03 Critical Value RPINEIRA 06/22/16 20:03 Sodium 131 mEq/L (136-145) L 07/08/16 05:00 Potassium 3.7 mEq/L (3.5-5.1) 07/08/16 05:00 Chloride 100 mEq/L (98-107) 07/08/16 05:00 Carbon Dioxide 26.4 mEq/L (21.0-31.0) 07/08/16 05:00 Anion Gap 8.3 (7.0-16.0) 07/08/16 05:00 BUN 31 mg/dL (7-25) H 07/08/16 05:00 Creatinine 3.1 mg/dL (0.7-1.3) H 07/08/16 05:00 Est GFR ( Amer) 27.7 ml/min (>90) 07/08/16 05:00 Est GFR (Non-Af Amer) 22.9 ml/min 07/08/16 05:00 BUN/Creatinine Ratio 10.0 07/08/16 05:00 Glucose 95 mg/dL (70-105) 07/08/16 05:00 Calcium 8.6 mg/dL (8.6-10.3) 07/08/16 05:00 Phosphorus 3.5 mg/dL (2.5-5.0) 07/08/16 05:00 Magnesium 2.0 mg/dL (1.9-2.7) 07/07/16 06:00 Iron 42 ug/dL (38-169) 06/28/16 04:38 TIBC 269 ug/dL (250-450) 06/28/16 04:38 Iron Saturation 16 % (15-55) 06/28/16 04:38 Unsaturated IBC 227 ug/dL (111-343) 06/28/16 04:38 Ferritin 150 ng/mL (30-400) 06/26/16 08:30 Total Bilirubin 4.0 mg/dL (0.3-1.0) H 07/01/16 06:57 Direct Bilirubin 0.70 mg/dL (0.0-0.2) H 06/28/16 04:38 GGTP 14 IU/L (0-65) 06/28/16 04:38 AST 64 U/L (13-39) H 07/01/16 06:57 ALT 16 U/L (7-52) 07/01/16 06:57 Alkaline Phosphatase 94 U/L (34-104) 07/01/16 06:57 Ammonia 105 umol/L (16-53) H 07/02/16 06:40 Troponin I < 0.01 ng/mL (0.01-0.05) L 06/22/16 19:33 B-Natriuretic Peptide 668.0 pg/mL (5.0-100.0) H 06/22/16 19:33 Total Protein 7.5 gm/dL (6.0-8.3) 07/01/16 06:57 Albumin 2.8 gm/dL (4.2-5.5) L 07/01/16 06:57 Globulin 4.7 gm/dL 07/01/16 06:57 Albumin/Globulin Ratio 0.6 (1.0-1.8) L 07/01/16 06:57 Amylase 28 U/L (29-103) L 07/02/16 06:40 Lipase 31 U/L (11-82) 07/02/16 06:40 Urine Source CLEAN C 06/29/16 05:55 Urine Color YELLOW 06/29/16 05:55 Urine Clarity HAZY (CLEAR) 06/29/16 05:55 Urine pH 5.5 06/29/16 05:55 Ur Specific [place] 1.015 (1.005-1.030) 06/29/16 05:55 Urine Protein 30 mg/dL (NEGATIVE) H 06/29/16 05:55 Urine Glucose (UA) NEGATIVE mg/dL (NEGATIVE) 06/29/16 05:55 Urine Ketones NEGATIVE mg/dL (NEGATIVE) 06/29/16 05:55 Urine Blood NEGATIVE (NEGATIVE) 06/29/16 05:55 Urine Nitrate NEGATIVE (NEGATIVE) 06/29/16 05:55 Urine Bilirubin NEGATIVE (NEGATIVE) 06/29/16 05:55 Urine Urobilinogen 0.2 E.U./dL (0.2 - 1.0) 06/29/16 05:55 Ur Leukocyte Esterase TRACE (NEGATIVE) H 06/29/16 05:55 Urine RBC 0-2 /hpf (0-5) H 06/29/16 05:55 Urine WBC 6-10 /hpf (0-5) H 06/29/16 05:55 Ur Epithelial Cells FEW /lpf (FEW) 06/29/16 05:55 Urine Bacteria MANY /hpf (NONE SEEN) 06/29/16 05:55 Stool Occult Blood POSITIVE (NEGATIVE) 06/24/16 16:00 Random Vancomycin 13.4 ug/mL (5.0-40.0) 06/28/16 04:38 RPR NONREACTIVE (NONREACTIVE) 06/22/16 19:33 Hepatitis A IgM Ab Negative (Negative) 06/29/16 05:49 Hep Bs Antigen Negative (Negative) 06/29/16 05:49 Hep B Core IgM Ab Negative (Negative) 06/29/16 05:49 Hepatitis C Antibody >11.0 s/co ratio (0.0-0.9) H 06/29/16 05:49 Blood Type A POSITIVE 06/28/16 04:38 Antibody Screen NEGATIVE 06/28/16 04:38 Crossmatch See Detail 06/28/16 04:38 - Physical Exam Vitals and I&O: Vital Signs Temp 97.6 F 07/11/16 08:00 Pulse 73 07/11/16 08:00 Resp 20 07/11/16 08:00 BP 107/67 07/11/16 08:00 Pulse Ox 97 07/11/16 08:00 Active Medications: Current Medications Acetaminophen (Tylenol) 325 mg PO Q6HR PRN PRN Reason: Mild Pain or Fever >101 Stop: 08/22/16 20:30 Albuterol/Ipratropium (Duoneb Neb) 3 ml HHN Q2HR PRN PRN Reason: Shortness of Breath or Wheeze Stop: 09/08/16 09:51 Aspirin (Ecotrin) 325 mg PO DAILY [facility] Stop: 09/03/16 09:14 Last Admin: 07/11/16 08:38 Dose: 325 mg Calamine/Phenol (Calmoseptine) 1 appl TP QID PRN PRN Reason: Skin Irritation Stop: 09/08/16 18:33 Calamine/Phenol (Calmoseptine) 1 appl TP QID [facility] Stop: 09/08/16 20:59 Last Admin: 07/11/16 08:39 Dose: 1 appl Carvedilol (Coreg) 12.5 mg PO BID [facility] Stop: 09/05/16 16:59 Last Admin: 07/11/16 08:40 Dose: Not Given Cholecalciferol (Vitamin D3) 2,000 iu PO DAILY [facility] Stop: 08/23/16 08:59 Last Admin: 07/11/16 08:38 Dose: 2,000 iu Diltiazem HCl (Cardizem) 60 mg PO Q6HR [facility] Stop: 09/04/16 11:59 Last Admin: 07/11/16 00:00 Dose: Not Given Diphenhydramine HCl (Benadryl 50 Mg/Ml) 50 mg IM Q8HR PRN PRN Reason: Agitation Stop: 08/25/16 12:10 Docusate Sodium (Colace) 100 mg PO BID [facility] Stop: 08/22/16 16:59 Last Admin: 07/11/16 08:38 Dose: 100 mg Haloperidol Lactate (Haldol) 5 mg IM Q8HR PRN PRN Reason: Agitation Stop: 08/25/16 12:10 Levothyroxine Sodium (Synthroid) 0.05 mg PO QDAC [facility] Stop: 08/23/16 07:29 Last Admin: 07/11/16 07:36 Dose: 0.05 mg Miscellaneous (Clinical Monitoring) 1 ea MC PRN PRN PRN Reason: RENAL DOSING Stop: 08/31/16 16:27 Morphine Sulfate (Morphine) 1 mg IV Q4H PRN PRN Reason: SEVERE PAIN Stop: 08/22/16 04:40 Last Admin: 07/11/16 01:32 Dose: 1 mg Ondansetron HCl (Zofran Odt) 4 mg PO Q6HR PRN PRN Reason: Nausea / Vomiting Stop: 08/22/16 20:30 Pantoprazole Sodium (Protonix) 40 mg PO DAILY [facility] Stop: 08/23/16 08:59 Last Admin: 07/11/16 08:38 Dose: 40 mg Quetiapine Fumarate (Seroquel) 100 mg PO TID [facility] PRN Reason: Protocol Stop: 08/26/16 08:59 Last Admin: 07/11/16 08:42 Dose: Not Given Vitamin B Complex/Vit C/Folic Acid (Vitamin B Complex W/Vitamin C) 1 tab PO DAILY [facility] Stop: 08/23/16 08:59 Last Admin: 07/11/16 08:38 Dose: 1 tab General: no acute distress, other (obese) HEENT: atraumatic, normocephalic, PERRLA, EOMI, moist mucous membrane Neck: supple, thyromegaly Cardiovascular: S1S2 Lungs: clear to auscultation bilaterally, clear to percussion Abdomen: soft, no tender, no distended Extremities: no cyanosis, no clubbing, no edema Neurological: awake, alert, oriented, CN 2-12 intact Skin: intact - Procedures Procedures: Procedures Procedure Code Date ARTERY-VEIN NONAUTOGRAFT 33806 06/22/16 BYPASS L BRACH ART TO UP ARM VEIN W NONAUT SUB, OPEN [id number] 06/22/16 FLUOROSCOPY OF SUP VENA CAVA USING [facility] CONTRAST, GUIDANCE [id number] 06/22/16 INSERTION OF INFUSION DEV INTO SUP VENA CAVA, PERC APPROACH [id number] 06/22/[address] PL[address] CATHETER IN VEIN [address]60 06/22/16 Infectious Disease Assmt/Plan - Problem List Patient Problems: All Active Problems MEDICAL EVALUATION PER DR FRY (Acute) - Assessment Assessment: 1. Cellulitis of legs. improved. treated. 2. Lymphedema of legs. 3. CKD 5 on HD. 4. Morbid obesity. - Plan Plan: Continue same treatment. DC plan.
[2016-07-11] MEDS: Diltiazem 30 mg Tab PO SCH ×3 (12:00→17:35)
--- NOTE | 2016-07-11 14:10 | General Progress Note ---
Subjective - Review of Systems Service Date: 07/11/16 Subjective: remains agitated, cursing, screaming Objective - Results Result Diagrams: 07/07/16 06:00 07/08/16 05:00 Recent Labs: Laboratory Last Values WBC 4.6 Th/cmm (4.8-10.8) L 07/07/16 06:00 RBC 2.90 Mil/cmm (4.30-5.70) L 07/07/16 06:00 Hgb 8.3 gm/dL (13.2-17.3) L 07/07/16 06:00 Hct 25.2 % (39.0-49.0) L 07/07/16 06:00 MCV 86.8 fl (80-99) 07/07/16 06:00 MCH 28.6 pg (26.0-30.0) 07/07/16 06:00 MCHC Differential 32.9 pg (28.0-36.0) 07/07/16 06:00 RDW 15.2 % (11.5-20.0) 07/07/16 06:00 Plt Count 102 Th/cmm (150-400) L 07/07/16 06:00 MPV 8.6 fl 07/07/16 06:00 Neutrophils % 56.8 % (40.0-80.0) 07/07/16 06:00 Band Neutrophils % 0 % (0-10) 07/04/16 04:58 Lymphocytes % 18.4 % (20.0-50.0) L 07/07/16 06:00 Monocytes % 13.8 % (2.0-10.0) H 07/07/16 06:00 Eosinophils % 11.0 % (0.0-5.0) H 07/07/16 06:00 Basophils % 0.0 % (0.0-2.0) 07/07/16 06:00 Neutrophils (Manual) 59 % (40-80) 07/05/16 12:15 Lymphocytes 13 % (20-50) L 07/05/16 12:15 Monocytes 16 % (2-10) H 07/05/16 12:15 Eosinophils 10 % (0-5) H 07/05/16 12:15 Basophils 2 % (0-3) 07/05/16 12:15 Hypochromia 1+ 06/22/16 19:33 Platelet Estimate DECREASED PLATELETS (NORMAL) 07/05/16 12:15 Platelet Morphology NORMAL (NORMAL) 07/05/16 12:15 Polychromasia 1+ 07/03/16 05:30 Anisocytosis 1+ 07/05/16 12:15 RBC Morph Micro Appear ABNORMAL (NORMAL) 07/05/16 12:15 PT 12.7 SECONDS (9.5-11.5) H 07/01/16 06:57 INR 1.26 (0.5-1.4) 07/01/16 06:57 PTT (Actin FS) 28.3 SECONDS (26.0-38.0) 06/28/16 04:38 Specimen Source art 06/22/16 20:03 Sample Site Right Radial 06/22/16 20:03 pH 7.49 (7.35-7.45) H 06/22/16 20:03 pCO2 34.0 mmHg (35.0-45.0) L 06/22/16 20:03 pO2 97.0 mmHg (80.0-100.0) 06/22/16 20:03 HCO3 25.9 mmol/L (20.0-26.0) 06/22/16 20:03 Base Excess 2.8 mmol/L (-3.0-3.0) 06/22/16 20:03 O2 Saturation 98.0 % (92.0-100.0) 06/22/16 20:03 Estuardo Test P 06/22/16 20:03 Vent Rate NA 06/22/16 20:03 Inspired O2 21 06/22/16 20:03 Tidal Volume NA 06/22/16 20:03 PEEP NA 06/22/16 20:03 Pressure (ins/psv/peep) NA 06/22/16 20:03 Critical Value RPINEIRA 06/22/16 20:03 Sodium 131 mEq/L (136-145) L 07/08/16 05:00 Potassium 3.7 mEq/L (3.5-5.1) 07/08/16 05:00 Chloride 100 mEq/L (98-107) 07/08/16 05:00 Carbon Dioxide 26.4 mEq/L (21.0-31.0) 07/08/16 05:00 Anion Gap 8.3 (7.0-16.0) 07/08/16 05:00 BUN 31 mg/dL (7-25) H 07/08/16 05:00 Creatinine 3.1 mg/dL (0.7-1.3) H 07/08/16 05:00 Est GFR ( Amer) 27.7 ml/min (>90) 07/08/16 05:00 Est GFR (Non-Af Amer) 22.9 ml/min 07/08/16 05:00 BUN/Creatinine Ratio 10.0 07/08/16 05:00 Glucose 95 mg/dL (70-105) 07/08/16 05:00 Calcium 8.6 mg/dL (8.6-10.3) 07/08/16 05:00 Phosphorus 3.5 mg/dL (2.5-5.0) 07/08/16 05:00 Magnesium 2.0 mg/dL (1.9-2.7) 07/07/16 06:00 Iron 42 ug/dL (38-169) 06/28/16 04:38 TIBC 269 ug/dL (250-450) 06/28/16 04:38 Iron Saturation 16 % (15-55) 06/28/16 04:38 Unsaturated IBC 227 ug/dL (111-343) 06/28/16 04:38 Ferritin 150 ng/mL (30-400) 06/26/16 08:30 Total Bilirubin 4.0 mg/dL (0.3-1.0) H 07/01/16 06:57 Direct Bilirubin 0.70 mg/dL (0.0-0.2) H 06/28/16 04:38 GGTP 14 IU/L (0-65) 06/28/16 04:38 AST 64 U/L (13-39) H 07/01/16 06:57 ALT 16 U/L (7-52) 07/01/16 06:57 Alkaline Phosphatase 94 U/L (34-104) 07/01/16 06:57 Ammonia 105 umol/L (16-53) H 07/02/16 06:40 Troponin I < 0.01 ng/mL (0.01-0.05) L 06/22/16 19:33 B-Natriuretic Peptide 668.0 pg/mL (5.0-100.0) H 06/22/16 19:33 Total Protein 7.5 gm/dL (6.0-8.3) 07/01/16 06:57 Albumin 2.8 gm/dL (4.2-5.5) L 07/01/16 06:57 Globulin 4.7 gm/dL 07/01/16 06:57 Albumin/Globulin Ratio 0.6 (1.0-1.8) L 07/01/16 06:57 Amylase 28 U/L (29-103) L 07/02/16 06:40 Lipase 31 U/L (11-82) 07/02/16 06:40 Urine Source CLEAN C 06/29/16 05:55 Urine Color YELLOW 06/29/16 05:55 Urine Clarity HAZY (CLEAR) 06/29/16 05:55 Urine pH 5.5 06/29/16 05:55 Ur Specific [place] 1.015 (1.005-1.030) 06/29/16 05:55 Urine Protein 30 mg/dL (NEGATIVE) H 06/29/16 05:55 Urine Glucose (UA) NEGATIVE mg/dL (NEGATIVE) 06/29/16 05:55 Urine Ketones NEGATIVE mg/dL (NEGATIVE) 06/29/16 05:55 Urine Blood NEGATIVE (NEGATIVE) 06/29/16 05:55 Urine Nitrate NEGATIVE (NEGATIVE) 06/29/16 05:55 Urine Bilirubin NEGATIVE (NEGATIVE) 06/29/16 05:55 Urine Urobilinogen 0.2 E.U./dL (0.2 - 1.0) 06/29/16 05:55 Ur Leukocyte Esterase TRACE (NEGATIVE) H 06/29/16 05:55 Urine RBC 0-2 /hpf (0-5) H 06/29/16 05:55 Urine WBC 6-10 /hpf (0-5) H 06/29/16 05:55 Ur Epithelial Cells FEW /lpf (FEW) 06/29/16 05:55 Urine Bacteria MANY /hpf (NONE SEEN) 06/29/16 05:55 Stool Occult Blood POSITIVE (NEGATIVE) 06/24/16 16:00 Random Vancomycin 13.4 ug/mL (5.0-40.0) 06/28/16 04:38 RPR NONREACTIVE (NONREACTIVE) 06/22/16 19:33 Hepatitis A IgM Ab Negative (Negative) 06/29/16 05:49 Hep Bs Antigen Negative (Negative) 06/29/16 05:49 Hep B Core IgM Ab Negative (Negative) 06/29/16 05:49 Hepatitis C Antibody >11.0 s/co ratio (0.0-0.9) H 06/29/16 05:49 Blood Type A POSITIVE 06/28/16 04:38 Antibody Screen NEGATIVE 06/28/16 04:38 Crossmatch See Detail 06/28/16 04:38 - Physical Exam Vitals and I&O: Vital Signs Temp 97.8 F 07/11/16 12:05 Pulse 102 07/11/16 12:05 Resp 19 07/11/16 12:05 BP 84/49 07/11/16 12:05 Pulse Ox 98 07/11/16 12:05 Active Medications: Current Medications Acetaminophen (Tylenol) 325 mg PO Q6HR PRN PRN Reason: Mild Pain or Fever >101 Stop: 08/22/16 20:30 Albuterol/Ipratropium (Duoneb Neb) 3 ml HHN Q2HR PRN PRN Reason: Shortness of Breath or Wheeze Stop: 09/08/16 09:51 Aspirin (Ecotrin) 325 mg PO DAILY [facility] Stop: 09/03/16 09:14 Last Admin: 07/11/16 08:38 Dose: 325 mg Calamine/Phenol (Calmoseptine) 1 appl TP QID PRN PRN Reason: Skin Irritation Stop: 09/08/16 18:33 Calamine/Phenol (Calmoseptine) 1 appl TP QID [facility] Stop: 09/08/16 20:59 Last Admin: 07/11/16 08:39 Dose: 1 appl Carvedilol (Coreg) 12.5 mg PO BID [facility] Stop: 09/05/16 16:59 Last Admin: 07/11/16 08:40 Dose: Not Given Cholecalciferol (Vitamin D3) 2,000 iu PO DAILY [facility] Stop: 08/23/16 08:59 Last Admin: 07/11/16 08:38 Dose: 2,000 iu Diltiazem HCl (Cardizem) 60 mg PO Q6HR [facility] Stop: 09/04/16 11:59 Last Admin: 07/11/16 00:00 Dose: Not Given Diphenhydramine HCl (Benadryl 50 Mg/Ml) 50 mg IM Q8HR PRN PRN Reason: Agitation Stop: 08/25/16 12:10 Docusate Sodium (Colace) 100 mg PO BID [facility] Stop: 08/22/16 16:59 Last Admin: 07/11/16 08:38 Dose: 100 mg Haloperidol Lactate (Haldol) 5 mg IM Q8HR PRN PRN Reason: Agitation Stop: 08/25/16 12:10 Levothyroxine Sodium (Synthroid) 0.05 mg PO QDAC [facility] Stop: 08/23/16 07:29 Last Admin: 07/11/16 07:36 Dose: 0.05 mg Miscellaneous (Clinical Monitoring) 1 ea MC PRN PRN PRN Reason: RENAL DOSING Stop: 08/31/16 16:27 Morphine Sulfate (Morphine) 1 mg IV Q4H PRN PRN Reason: SEVERE PAIN Stop: 08/22/16 04:40 Last Admin: 07/11/16 01:32 Dose: 1 mg Ondansetron HCl (Zofran Odt) 4 mg PO Q6HR PRN PRN Reason: Nausea / Vomiting Stop: 08/22/16 20:30 Pantoprazole Sodium (Protonix) 40 mg PO DAILY [facility] Stop: 08/23/16 08:59 Last Admin: 07/11/16 08:38 Dose: 40 mg Quetiapine Fumarate (Seroquel) 100 mg PO TID [facility] PRN Reason: Protocol Stop: 08/26/16 08:59 Last Admin: 07/11/16 08:42 Dose: Not Given Vitamin B Complex/Vit C/Folic Acid (Vitamin B Complex W/Vitamin C) 1 tab PO DAILY [facility] Stop: 08/23/16 08:59 Last Admin: 07/11/16 08:38 Dose: 1 tab General: Alert, No acute distress HEENT: Atraumatic, Mucous membr. moist/pink Neck: Supple, +2 carotid pulse wo bruit Cardiovascular: Regular rate, Normal S1, Normal S2 Lungs: Other (decrease bs) Abdomen: Bowel sounds, Soft Extremities: Edema Neurological: Sensation intact Skin: Other (discoloration lower ext) - Procedures Procedures: Procedures Procedure Code Date ARTERY-VEIN NONAUTOGRAFT 53484 06/22/16 BYPASS L BRACH ART TO UP ARM VEIN W NONAUT SUB, OPEN [id number] 06/22/16 FLUOROSCOPY OF SUP VENA CAVA USING [facility] CONTRAST, GUIDANCE [id number] 06/22/16 INSERTION OF INFUSION DEV INTO SUP VENA CAVA, PERC APPROACH [id number] 06/22/[address] PLACE CATHETER IN VEIN 78095 06/22/16 Assessment/Plan - Problem List Patient Problems: All Active Problems MEDICAL EVALUATION PER DR FRY (Acute) - Assessment Assessment: esrd on hd persistent cellulitis b/l lower ext acute on chronic anemia possible gi bleed ohs chronic a. fib hypothyroid anasarca functional quadriplegia chronic venous stasis dermatitis acute decomp psychosis hypokalemia, hypomagnesemia s/p left avg psychosis - Plan Plan: hgb/hct slightly improved to 8.7/25.8 agree w/ K replacement for hd in am placement in progress continue psych meds
[2016-07-12] MEDS: Diltiazem 30 mg Tab PO SCH ×4 (06:36→17:32)
[2016-07-12] MEDS: Levothyroxine 0.05 Mg Tab PO SCH (07:41)
[2016-07-12] MEDS: Menthol/Zinc Oxide Oint 113gm Tube TP SCH ×4 (08:42→21:42)
[2016-07-12] MEDS: Vitamin B Complex w/Vitamin C Tab PO SCH (08:43)
[2016-07-12] MEDS: Pantoprazole 40 mg EC Tab PO SCH (08:43)
[2016-07-12] MEDS: Aspirin 325 mg EC PO SCH (08:44)
--- NOTE | 2016-07-12 12:15 | Infectious Disease Prog Note ---
Infectious Disease Subjective - Review of Systems Service Date: 07/12/16 Subjective: No change. Infectious Disease Objective - Results Result Diagrams: 07/07/16 06:00 07/08/16 05:00 Recent Labs: Laboratory Last Values WBC 4.6 Th/cmm (4.8-10.8) L 07/07/16 06:00 RBC 2.90 Mil/cmm (4.30-5.70) L 07/07/16 06:00 Hgb 8.3 gm/dL (13.2-17.3) L 07/07/16 06:00 Hct 25.2 % (39.0-49.0) L 07/07/16 06:00 MCV 86.8 fl (80-99) 07/07/16 06:00 MCH 28.6 pg (26.0-30.0) 07/07/16 06:00 MCHC Differential 32.9 pg (28.0-36.0) 07/07/16 06:00 RDW 15.2 % (11.5-20.0) 07/07/16 06:00 Plt Count 102 Th/cmm (150-400) L 07/07/16 06:00 MPV 8.6 fl 07/07/16 06:00 Neutrophils % 56.8 % (40.0-80.0) 07/07/16 06:00 Band Neutrophils % 0 % (0-10) 07/04/16 04:58 Lymphocytes % 18.4 % (20.0-50.0) L 07/07/16 06:00 Monocytes % 13.8 % (2.0-10.0) H 07/07/16 06:00 Eosinophils % 11.0 % (0.0-5.0) H 07/07/16 06:00 Basophils % 0.0 % (0.0-2.0) 07/07/16 06:00 Neutrophils (Manual) 59 % (40-80) 07/05/16 12:15 Lymphocytes 13 % (20-50) L 07/05/16 12:15 Monocytes 16 % (2-10) H 07/05/16 12:15 Eosinophils 10 % (0-5) H 07/05/16 12:15 Basophils 2 % (0-3) 07/05/16 12:15 Hypochromia 1+ 06/22/16 19:33 Platelet Estimate DECREASED PLATELETS (NORMAL) 07/05/16 12:15 Platelet Morphology NORMAL (NORMAL) 07/05/16 12:15 Polychromasia 1+ 07/03/16 05:30 Anisocytosis 1+ 07/05/16 12:15 RBC Morph Micro Appear ABNORMAL (NORMAL) 07/05/16 12:15 PT 12.7 SECONDS (9.5-11.5) H 07/01/16 06:57 INR 1.26 (0.5-1.4) 07/01/16 06:57 PTT (Actin FS) 28.3 SECONDS (26.0-38.0) 06/28/16 04:38 Specimen Source art 06/22/16 20:03 Sample Site Right Radial 06/22/16 20:03 pH 7.49 (7.35-7.45) H 06/22/16 20:03 pCO2 34.0 mmHg (35.0-45.0) L 06/22/16 20:03 pO2 97.0 mmHg (80.0-100.0) 06/22/16 20:03 HCO3 25.9 mmol/L (20.0-26.0) 06/22/16 20:03 Base Excess 2.8 mmol/L (-3.0-3.0) 06/22/16 20:03 O2 Saturation 98.0 % (92.0-100.0) 06/22/16 20:03 Estuardo Test P 06/22/16 20:03 Vent Rate NA 06/22/16 20:03 Inspired O2 21 06/22/16 20:03 Tidal Volume NA 06/22/16 20:03 PEEP NA 06/22/16 20:03 Pressure (ins/psv/peep) NA 06/22/16 20:03 Critical Value RPINEIRA 06/22/16 20:03 Sodium 131 mEq/L (136-145) L 07/08/16 05:00 Potassium 3.7 mEq/L (3.5-5.1) 07/08/16 05:00 Chloride 100 mEq/L (98-107) 07/08/16 05:00 Carbon Dioxide 26.4 mEq/L (21.0-31.0) 07/08/16 05:00 Anion Gap 8.3 (7.0-16.0) 07/08/16 05:00 BUN 31 mg/dL (7-25) H 07/08/16 05:00 Creatinine 3.1 mg/dL (0.7-1.3) H 07/08/16 05:00 Est GFR ( Amer) 27.7 ml/min (>90) 07/08/16 05:00 Est GFR (Non-Af Amer) 22.9 ml/min 07/08/16 05:00 BUN/Creatinine Ratio 10.0 07/08/16 05:00 Glucose 95 mg/dL (70-105) 07/08/16 05:00 Calcium 8.6 mg/dL (8.6-10.3) 07/08/16 05:00 Phosphorus 3.5 mg/dL (2.5-5.0) 07/08/16 05:00 Magnesium 2.0 mg/dL (1.9-2.7) 07/07/16 06:00 Iron 42 ug/dL (38-169) 06/28/16 04:38 TIBC 269 ug/dL (250-450) 06/28/16 04:38 Iron Saturation 16 % (15-55) 06/28/16 04:38 Unsaturated IBC 227 ug/dL (111-343) 06/28/16 04:38 Ferritin 150 ng/mL (30-400) 06/26/16 08:30 Total Bilirubin 4.0 mg/dL (0.3-1.0) H 07/01/16 06:57 Direct Bilirubin 0.70 mg/dL (0.0-0.2) H 06/28/16 04:38 GGTP 14 IU/L (0-65) 06/28/16 04:38 AST 64 U/L (13-39) H 07/01/16 06:57 ALT 16 U/L (7-52) 07/01/16 06:57 Alkaline Phosphatase 94 U/L (34-104) 07/01/16 06:57 Ammonia 105 umol/L (16-53) H 07/02/16 06:40 Troponin I < 0.01 ng/mL (0.01-0.05) L 06/22/16 19:33 B-Natriuretic Peptide 668.0 pg/mL (5.0-100.0) H 06/22/16 19:33 Total Protein 7.5 gm/dL (6.0-8.3) 07/01/16 06:57 Albumin 2.8 gm/dL (4.2-5.5) L 07/01/16 06:57 Globulin 4.7 gm/dL 07/01/16 06:57 Albumin/Globulin Ratio 0.6 (1.0-1.8) L 07/01/16 06:57 Amylase 28 U/L (29-103) L 07/02/16 06:40 Lipase 31 U/L (11-82) 07/02/16 06:40 Urine Source CLEAN C 06/29/16 05:55 Urine Color YELLOW 06/29/16 05:55 Urine Clarity HAZY (CLEAR) 06/29/16 05:55 Urine pH 5.5 06/29/16 05:55 Ur Specific [place] 1.015 (1.005-1.030) 06/29/16 05:55 Urine Protein 30 mg/dL (NEGATIVE) H 06/29/16 05:55 Urine Glucose (UA) NEGATIVE mg/dL (NEGATIVE) 06/29/16 05:55 Urine Ketones NEGATIVE mg/dL (NEGATIVE) 06/29/16 05:55 Urine Blood NEGATIVE (NEGATIVE) 06/29/16 05:55 Urine Nitrate NEGATIVE (NEGATIVE) 06/29/16 05:55 Urine Bilirubin NEGATIVE (NEGATIVE) 06/29/16 05:55 Urine Urobilinogen 0.2 E.U./dL (0.2 - 1.0) 06/29/16 05:55 Ur Leukocyte Esterase TRACE (NEGATIVE) H 06/29/16 05:55 Urine RBC 0-2 /hpf (0-5) H 06/29/16 05:55 Urine WBC 6-10 /hpf (0-5) H 06/29/16 05:55 Ur Epithelial Cells FEW /lpf (FEW) 06/29/16 05:55 Urine Bacteria MANY /hpf (NONE SEEN) 06/29/16 05:55 Stool Occult Blood POSITIVE (NEGATIVE) 06/24/16 16:00 Random Vancomycin 13.4 ug/mL (5.0-40.0) 06/28/16 04:38 RPR NONREACTIVE (NONREACTIVE) 06/22/16 19:33 Hepatitis A IgM Ab Negative (Negative) 06/29/16 05:49 Hep Bs Antigen Negative (Negative) 06/29/16 05:49 Hep B Core IgM Ab Negative (Negative) 06/29/16 05:49 Hepatitis C Antibody >11.0 s/co ratio (0.0-0.9) H 06/29/16 05:49 Blood Type A POSITIVE 06/28/16 04:38 Antibody Screen NEGATIVE 06/28/16 04:38 Crossmatch See Detail 06/28/16 04:38 - Physical Exam Vitals and I&O: Vital Signs Temp 97.9 F 07/12/16 08:00 Pulse 111 07/12/16 08:43 Resp 20 07/12/16 08:00 BP 118/65 07/12/16 08:43 Pulse Ox 95 07/12/16 08:00 Intake & Output 07/11/16 07/12/16 07/12/16 18:59 06:59 18:59 Intake Total 400 500 Balance 400 500 Intake: Oral 400 500 Other: # Voids 2 3 # Bowel Movements 1 1 Active Medications: Current Medications Acetaminophen (Tylenol) 325 mg PO Q6HR PRN PRN Reason: Mild Pain or Fever >101 Stop: 08/22/16 20:30 Albuterol/Ipratropium (Duoneb Neb) 3 ml HHN Q2HR PRN PRN Reason: Shortness of Breath or Wheeze Stop: 09/08/16 09:51 Aspirin (Ecotrin) [address] [facility] Stop: 09/03/16 09:14 Last Admin: 07/12/16 08:44 Dose: 325 mg Calamine/Phenol (Calmoseptine) 1 appl TP QID PRN PRN Reason: Skin Irritation Stop: 09/08/16 18:33 Calamine/Phenol (Calmoseptine) 1 appl TP QID [facility] Stop: 09/08/16 20:59 Last Admin: 07/12/16 08:42 Dose: 1 appl Carvedilol (Coreg) 12.5 mg PO BID [facility] Stop: 09/05/16 16:59 Last Admin: 07/12/16 08:43 Dose: 12.5 mg Cholecalciferol (Vitamin D3) 2,000 iu PO DAILY [facility] Stop: 08/23/16 08:59 Last Admin: 07/12/16 08:43 Dose: 2,000 iu Diltiazem HCl (Cardizem) 60 mg PO Q6HR [facility] Stop: 09/04/16 11:59 Last Admin: 07/12/16 06:36 Dose: Not Given Diphenhydramine HCl (Benadryl 50 Mg/Ml) 50 mg IM Q8HR PRN PRN Reason: Agitation Stop: 08/25/16 12:10 Docusate Sodium (Colace) [address] [facility] Stop: 08/22/16 16:59 Last Admin: 07/12/16 08:44 Dose: 100 mg Haloperidol Lactate (Haldol) 5 mg IM Q8HR PRN PRN Reason: Agitation Stop: 08/25/16 12:10 Levothyroxine Sodium (Synthroid) 0.[address] [facility] Stop: 08/23/16 07:29 Last Admin: 07/12/16 07:41 Dose: 0.05 mg Miscellaneous (Clinical Monitoring) 1 ea MC PRN PRN PRN Reason: RENAL DOSING Stop: 08/31/16 16:27 Morphine Sulfate (Morphine) 1 mg IV Q4H PRN PRN Reason: SEVERE PAIN Stop: 08/22/16 04:40 Last Admin: 07/11/16 20:19 Dose: 1 mg Ondansetron HCl (Zofran Odt) 4 mg PO Q6HR PRN PRN Reason: Nausea / Vomiting Stop: 08/22/16 20:30 Pantoprazole Sodium (Protonix) [address] [facility] Stop: 08/23/16 08:59 Last Admin: 07/12/16 08:43 Dose: 40 mg Quetiapine Fumarate (Seroquel) 100 mg PO TID [facility] PRN Reason: Protocol Stop: 08/26/16 08:59 Last Admin: 07/12/16 08:44 Dose: Not Given Vitamin B Complex/Vit C/Folic Acid (Vitamin B Complex W/Vitamin C) [address] [facility] Stop: 08/23/16 08:59 Last Admin: 07/12/16 08:43 Dose: 1 tab General: no acute distress, well developed, well nourished HEENT: atraumatic, normocephalic, PERRLA, EOMI Neck: supple Cardiovascular: S1S2, regular Lungs: clear to auscultation bilaterally, clear to percussion Abdomen: soft, no tender, no distended Extremities: no cyanosis, no clubbing, no edema Neurological: awake, alert, oriented - Procedures Procedures: Procedures Procedure Code Date ARTERY-VEIN NONAUTOGRAFT 43942 06/22/16 BYPASS L BRACH ART TO UP ARM VEIN W NONAUT SUB, OPEN [id number] 06/22/16 FLUOROSCOPY OF SUP VENA CAVA USING [facility] CONTRAST, GUIDANCE [id number] 06/22/16 INSERTION OF INFUSION DEV INTO SUP VENA CAVA, PERC APPROACH [id number] 06/22/[address] PL[address] CATHETER IN VEIN [address] 06/22/16 Infectious Disease Assmt/Plan - Problem List Patient Problems: All Active Problems MEDICAL EVALUATION PER DR FRY (Acute) - Assessment Assessment: 1. Cellulitis of legs. improved. treated. 2. Lymphedema of legs. 3. CKD 5 on HD. 4. Morbid obesity. - Plan Plan: Continue same treatment. DC plan.
--- NOTE | 2016-07-12 16:19 | General Progress Note ---
Subjective - Review of Systems Service Date: 07/12/16 Subjective: still uncooperative, screaming Objective - Results Result Diagrams: 07/07/16 06:00 07/08/16 05:00 Recent Labs: Laboratory Last Values WBC 4.6 Th/cmm (4.8-10.8) L 07/07/16 06:00 RBC 2.90 Mil/cmm (4.30-5.70) L 07/07/16 06:00 Hgb 8.3 gm/dL (13.2-17.3) L 07/07/16 06:00 Hct 25.2 % (39.0-49.0) L 07/07/16 06:00 MCV 86.8 fl (80-99) 07/07/16 06:00 MCH 28.6 pg (26.0-30.0) 07/07/16 06:00 MCHC Differential 32.9 pg (28.0-36.0) 07/07/16 06:00 RDW 15.2 % (11.5-20.0) 07/07/16 06:00 Plt Count 102 Th/cmm (150-400) L 07/07/16 06:00 MPV 8.6 fl 07/07/16 06:00 Neutrophils % 56.8 % (40.0-80.0) 07/07/16 06:00 Band Neutrophils % 0 % (0-10) 07/04/16 04:58 Lymphocytes % 18.4 % (20.0-50.0) L 07/07/16 06:00 Monocytes % 13.8 % (2.0-10.0) H 07/07/16 06:00 Eosinophils % 11.0 % (0.0-5.0) H 07/07/16 06:00 Basophils % 0.0 % (0.0-2.0) 07/07/16 06:00 Neutrophils (Manual) 59 % (40-80) 07/05/16 12:15 Lymphocytes 13 % (20-50) L 07/05/16 12:15 Monocytes 16 % (2-10) H 07/05/16 12:15 Eosinophils 10 % (0-5) H 07/05/16 12:15 Basophils 2 % (0-3) 07/05/16 12:15 Hypochromia 1+ 06/22/16 19:33 Platelet Estimate DECREASED PLATELETS (NORMAL) 07/05/16 12:15 Platelet Morphology NORMAL (NORMAL) 07/05/16 12:15 Polychromasia 1+ 07/03/16 05:30 Anisocytosis 1+ 07/05/16 12:15 RBC Morph Micro Appear ABNORMAL (NORMAL) 07/05/16 12:15 PT 12.7 SECONDS (9.5-11.5) H 07/01/16 06:57 INR 1.26 (0.5-1.4) 07/01/16 06:57 PTT (Actin FS) 28.3 SECONDS (26.0-38.0) 06/28/16 04:38 Specimen Source art 06/22/16 20:03 Sample Site Right Radial 06/22/16 20:03 pH 7.49 (7.35-7.45) H 06/22/16 20:03 pCO2 34.0 mmHg (35.0-45.0) L 06/22/16 20:03 pO2 97.0 mmHg (80.0-100.0) 06/22/16 20:03 HCO3 25.9 mmol/L (20.0-26.0) 06/22/16 20:03 Base Excess 2.8 mmol/L (-3.0-3.0) 06/22/16 20:03 O2 Saturation 98.0 % (92.0-100.0) 06/22/16 20:03 Estuardo Test P 06/22/16 20:03 Vent Rate NA 06/22/16 20:03 Inspired O2 21 06/22/16 20:03 Tidal Volume NA 06/22/16 20:03 PEEP NA 06/22/16 20:03 Pressure (ins/psv/peep) NA 06/22/16 20:03 Critical Value RPINEIRA 06/22/16 20:03 Sodium 131 mEq/L (136-145) L 07/08/16 05:00 Potassium 3.7 mEq/L (3.5-5.1) 07/08/16 05:00 Chloride 100 mEq/L (98-107) 07/08/16 05:00 Carbon Dioxide 26.4 mEq/L (21.0-31.0) 07/08/16 05:00 Anion Gap 8.3 (7.0-16.0) 07/08/16 05:00 BUN 31 mg/dL (7-25) H 07/08/16 05:00 Creatinine 3.1 mg/dL (0.7-1.3) H 07/08/16 05:00 Est GFR ( Amer) 27.7 ml/min (>90) 07/08/16 05:00 Est GFR (Non-Af Amer) 22.9 ml/min 07/08/16 05:00 BUN/Creatinine Ratio 10.0 07/08/16 05:00 Glucose 95 mg/dL (70-105) 07/08/16 05:00 Calcium 8.6 mg/dL (8.6-10.3) 07/08/16 05:00 Phosphorus 3.5 mg/dL (2.5-5.0) 07/08/16 05:00 Magnesium 2.0 mg/dL (1.9-2.7) 07/07/16 06:00 Iron 42 ug/dL (38-169) 06/28/16 04:38 TIBC 269 ug/dL (250-450) 06/28/16 04:38 Iron Saturation 16 % (15-55) 06/28/16 04:38 Unsaturated IBC 227 ug/dL (111-343) 06/28/16 04:38 Ferritin 150 ng/mL (30-400) 06/26/16 08:30 Total Bilirubin 4.0 mg/dL (0.3-1.0) H 07/01/16 06:57 Direct Bilirubin 0.70 mg/dL (0.0-0.2) H 06/28/16 04:38 GGTP 14 IU/L (0-65) 06/28/16 04:38 AST 64 U/L (13-39) H 07/01/16 06:57 ALT 16 U/L (7-52) 07/01/16 06:57 Alkaline Phosphatase 94 U/L (34-104) 07/01/16 06:57 Ammonia 105 umol/L (16-53) H 07/02/16 06:40 Troponin I < 0.01 ng/mL (0.01-0.05) L 06/22/16 19:33 B-Natriuretic Peptide 668.0 pg/mL (5.0-100.0) H 06/22/16 19:33 Total Protein 7.5 gm/dL (6.0-8.3) 07/01/16 06:57 Albumin 2.8 gm/dL (4.2-5.5) L 07/01/16 06:57 Globulin 4.7 gm/dL 07/01/16 06:57 Albumin/Globulin Ratio 0.6 (1.0-1.8) L 07/01/16 06:57 Amylase 28 U/L (29-103) L 07/02/16 06:40 Lipase 31 U/L (11-82) 07/02/16 06:40 Urine Source CLEAN C 06/29/16 05:55 Urine Color YELLOW 06/29/16 05:55 Urine Clarity HAZY (CLEAR) 06/29/16 05:55 Urine pH 5.5 06/29/16 05:55 Ur Specific [place] 1.015 (1.005-1.030) 06/29/16 05:55 Urine Protein 30 mg/dL (NEGATIVE) H 06/29/16 05:55 Urine Glucose (UA) NEGATIVE mg/dL (NEGATIVE) 06/29/16 05:55 Urine Ketones NEGATIVE mg/dL (NEGATIVE) 06/29/16 05:55 Urine Blood NEGATIVE (NEGATIVE) 06/29/16 05:55 Urine Nitrate NEGATIVE (NEGATIVE) 06/29/16 05:55 Urine Bilirubin NEGATIVE (NEGATIVE) 06/29/16 05:55 Urine Urobilinogen 0.2 E.U./dL (0.2 - 1.0) 06/29/16 05:55 Ur Leukocyte Esterase TRACE (NEGATIVE) H 06/29/16 05:55 Urine RBC 0-2 /hpf (0-5) H 06/29/16 05:55 Urine WBC 6-10 /hpf (0-5) H 06/29/16 05:55 Ur Epithelial Cells FEW /lpf (FEW) 06/29/16 05:55 Urine Bacteria MANY /hpf (NONE SEEN) 06/29/16 05:55 Stool Occult Blood POSITIVE (NEGATIVE) 06/24/16 16:00 Random Vancomycin 13.4 ug/mL (5.0-40.0) 06/28/16 04:38 RPR NONREACTIVE (NONREACTIVE) 06/22/16 19:33 Hepatitis A IgM Ab Negative (Negative) 06/29/16 05:49 Hep Bs Antigen Negative (Negative) 06/29/16 05:49 Hep B Core IgM Ab Negative (Negative) 06/29/16 05:49 Hepatitis C Antibody >11.0 s/co ratio (0.0-0.9) H 06/29/16 05:49 Blood Type A POSITIVE 06/28/16 04:38 Antibody Screen NEGATIVE 06/28/16 04:38 Crossmatch See Detail 06/28/16 04:38 - Physical Exam Vitals and I&O: Vital Signs Temp 98.1 F 07/12/16 12:00 Pulse 65 07/12/16 12:00 Resp 18 07/12/16 12:00 BP 85/51 07/12/16 12:00 Pulse Ox 95 07/12/16 12:00 Intake & Output 07/11/16 07/12/16 07/12/16 18:59 06:59 18:59 Intake Total 400 500 Balance 400 500 Intake: Oral 400 500 Other: # Voids 2 3 # Bowel Movements 1 1 Active Medications: Current Medications Acetaminophen (Tylenol) 325 mg PO Q6HR PRN PRN Reason: Mild Pain or Fever >101 Stop: 08/22/16 20:30 Albuterol/Ipratropium (Duoneb Neb) 3 ml HHN Q2HR PRN PRN Reason: Shortness of Breath or Wheeze Stop: 09/08/16 09:51 Aspirin (Ecotrin) 325 mg PO DAILY [facility] Stop: 09/03/16 09:14 Last Admin: 07/12/16 08:44 Dose: 325 mg Calamine/Phenol (Calmoseptine) 1 appl TP QID PRN PRN Reason: Skin Irritation Stop: 09/08/16 18:33 Calamine/Phenol (Calmoseptine) 1 appl TP QID [facility] Stop: 09/08/16 20:59 Last Admin: 07/12/16 08:42 Dose: 1 appl Carvedilol (Coreg) 12.5 mg PO BID [facility] Stop: 09/05/16 16:59 Last Admin: 07/12/16 08:43 Dose: 12.5 mg Cholecalciferol (Vitamin D3) 2,000 iu PO DAILY [facility] Stop: 08/23/16 08:59 Last Admin: 07/12/16 08:43 Dose: 2,000 iu Diltiazem HCl (Cardizem) 60 mg PO Q6HR [facility] Stop: 09/04/16 11:59 Last Admin: 07/12/16 12:00 Dose: Not Given Diphenhydramine HCl (Benadryl 50 Mg/Ml) 50 mg IM Q8HR PRN PRN Reason: Agitation Stop: 08/25/16 12:10 Docusate Sodium (Colace) 100 mg PO BID [facility] Stop: 08/22/16 16:59 Last Admin: 07/12/16 08:44 Dose: 100 mg Haloperidol Lactate (Haldol) 5 mg IM Q8HR PRN PRN Reason: Agitation Stop: 08/25/16 12:10 Levothyroxine Sodium (Synthroid) 0.05 mg PO QDAC [facility] Stop: 08/23/16 07:29 Last Admin: 07/12/16 07:41 Dose: 0.05 mg Miscellaneous (Clinical Monitoring) 1 ea MC PRN PRN PRN Reason: RENAL DOSING Stop: 08/31/16 16:27 Morphine Sulfate (Morphine) 1 mg IV Q4H PRN PRN Reason: SEVERE PAIN Stop: 08/22/16 04:40 Last Admin: 07/11/16 20:19 Dose: 1 mg Ondansetron HCl (Zofran Odt) 4 mg PO Q6HR PRN PRN Reason: Nausea / Vomiting Stop: 08/22/16 20:30 Pantoprazole Sodium (Protonix) 40 mg PO DAILY [facility] Stop: 08/23/16 08:59 Last Admin: 07/12/16 08:43 Dose: 40 mg Quetiapine Fumarate (Seroquel) 100 mg PO TID [facility] PRN Reason: Protocol Stop: 08/26/16 08:59 Last Admin: 07/12/16 14:44 Dose: Not Given Vitamin B Complex/Vit C/Folic Acid (Vitamin B Complex W/Vitamin C) 1 tab PO DAILY [facility] Stop: 08/23/16 08:59 Last Admin: 07/12/16 08:43 Dose: 1 tab General: Alert HEENT: Atraumatic, Mucous membr. moist/pink Neck: Supple, +2 carotid pulse wo bruit Cardiovascular: Regular rate, Normal S1, Normal S2 Lungs: Other (few rhonchi) Abdomen: Bowel sounds, Soft, Obese Extremities: Edema, Other (hyperpigmented) Neurological: Sensation intact Skin: Rash - Procedures Procedures: Procedures Procedure Code Date ARTERY-VEIN NONAUTOGRAFT 11899 06/22/16 BYPASS L BRACH ART TO UP ARM VEIN W NONAUT SUB, OPEN [id number] 06/22/16 FLUOROSCOPY OF SUP VENA CAVA USING [facility] CONTRAST, GUIDANCE [id number] 06/22/16 INSERTION OF INFUSION DEV INTO SUP VENA CAVA, PERC APPROACH [id number] 06/22/16 PLACE CATHETER IN VEIN 11881 06/22/16 Assessment/Plan - Problem List Patient Problems: All Active Problems MEDICAL EVALUATION PER DR FRY (Acute) - Assessment Assessment: esrd on hd persistent cellulitis b/l lower ext acute on chronic anemia possible gi bleed ohs chronic a. fib hypothyroid anasarca functional quadriplegia chronic venous stasis dermatitis acute decomp psychosis hypokalemia, hypomagnesemia s/p left avg - Plan Plan: hgb/hct slightly improved to 8.7/25.8 agree w/ K replacement for hd today placement in progress continue psych meds
[2016-07-12] MEDS: Morphine Sulfate 2 mg/mL 1mL Syr IV PRN (21:41)
[2016-07-13] MEDS: Diltiazem 30 mg Tab PO SCH ×4 (00:05→17:06)
--- NOTE | 2016-07-13 04:24 | Progress Notes ---
SUBJECTIVE: The patient was seen in his room. The patient is upset and cursing, keeps on saying that he is upset with the prognosis of his discharge planning been explained to the patient. The social media director and case finishing machine adjuster are working for a place where they can take him especially, they need to also do a setup with his hemodialysis schedule. OBJECTIVE: HEENT: Head is atraumatic, normocephalic. Bilateral conjunctivitis are clear from injections. Pupils are equally round and reactive. CARDIOVASCULAR: S1 and S2, without murmurs, irregular. LUNGS: Mild inspiratory wheezing. GASTROINTESTINAL: Soft, nontender, positive bowel sounds. No guarding. EXTREMITIES: Bilateral lower extremity edema. ASSESSMENT: 1. End-stage renal disease, hemodialysis dependent. 2. Chronic anemia. 3. Chronic atrial fibrillation. 4. Cellulitis of the bilateral lower extremities. 5. Hypothyroidism. 6. Obesity. 7. Quadriplegia. 8. Schizophrenia. PLAN: We will keep the patient for monitoring until we find the placement for the patient. We will follow up with the social media director and also with the case finishing machine adjuster. JOB# [id number]
[2016-07-13] MEDS: Levothyroxine 0.05 Mg Tab PO SCH (06:34)
[2016-07-13] MEDS: Morphine Sulfate 2 mg/mL 1mL Syr IV PRN ×2 (09:44→20:53)
[2016-07-13] MEDS: Vitamin B Complex w/Vitamin C Tab PO SCH (09:45)
[2016-07-13] MEDS: Pantoprazole 40 mg EC Tab PO SCH (09:45)
[2016-07-13] MEDS: Aspirin 325 mg EC PO SCH (09:45)
[2016-07-13] MEDS: Menthol/Zinc Oxide Oint 113gm Tube TP SCH ×4 (09:46→20:54)
--- NOTE | 2016-07-13 10:57 | Infectious Disease Prog Note ---
Infectious Disease Subjective - Review of Systems Service Date: 07/13/16 Subjective: No change. Infectious Disease Objective - Results Result Diagrams: 07/07/16 06:00 07/08/16 05:00 Recent Labs: Laboratory Last Values WBC 4.6 Th/cmm (4.8-10.8) L 07/07/16 06:00 RBC 2.90 Mil/cmm (4.30-5.70) L 07/07/16 06:00 Hgb 8.3 gm/dL (13.2-17.3) L 07/07/16 06:00 Hct 25.2 % (39.0-49.0) L 07/07/16 06:00 MCV 86.8 fl (80-99) 07/07/16 06:00 MCH 28.6 pg (26.0-30.0) 07/07/16 06:00 MCHC Differential 32.9 pg (28.0-36.0) 07/07/16 06:00 RDW 15.2 % (11.5-20.0) 07/07/16 06:00 Plt Count 102 Th/cmm (150-400) L 07/07/16 06:00 MPV 8.6 fl 07/07/16 06:00 Neutrophils % 56.8 % (40.0-80.0) 07/07/16 06:00 Band Neutrophils % 0 % (0-10) 07/04/16 04:58 Lymphocytes % 18.4 % (20.0-50.0) L 07/07/16 06:00 Monocytes % 13.8 % (2.0-10.0) H 07/07/16 06:00 Eosinophils % 11.0 % (0.0-5.0) H 07/07/16 06:00 Basophils % 0.0 % (0.0-2.0) 07/07/16 06:00 Neutrophils (Manual) 59 % (40-80) 07/05/16 12:15 Lymphocytes 13 % (20-50) L 07/05/16 12:15 Monocytes 16 % (2-10) H 07/05/16 12:15 Eosinophils 10 % (0-5) H 07/05/16 12:15 Basophils 2 % (0-3) 07/05/16 12:15 Hypochromia 1+ 06/22/16 19:33 Platelet Estimate DECREASED PLATELETS (NORMAL) 07/05/16 12:15 Platelet Morphology NORMAL (NORMAL) 07/05/16 12:15 Polychromasia 1+ 07/03/16 05:30 Anisocytosis 1+ 07/05/16 12:15 RBC Morph Micro Appear ABNORMAL (NORMAL) 07/05/16 12:15 PT 12.7 SECONDS (9.5-11.5) H 07/01/16 06:57 INR 1.26 (0.5-1.4) 07/01/16 06:57 PTT (Actin FS) 28.3 SECONDS (26.0-38.0) 06/28/16 04:38 Specimen Source art 06/22/16 20:03 Sample Site Right Radial 06/22/16 20:03 pH 7.49 (7.35-7.45) H 06/22/16 20:03 pCO2 34.0 mmHg (35.0-45.0) L 06/22/16 20:03 pO2 97.0 mmHg (80.0-100.0) 06/22/16 20:03 HCO3 25.9 mmol/L (20.0-26.0) 06/22/16 20:03 Base Excess 2.8 mmol/L (-3.0-3.0) 06/22/16 20:03 O2 Saturation 98.0 % (92.0-100.0) 06/22/16 20:03 Estuardo Test P 06/22/16 20:03 Vent Rate NA 06/22/16 20:03 Inspired O2 21 06/22/16 20:03 Tidal Volume NA 06/22/16 20:03 PEEP NA 06/22/16 20:03 Pressure (ins/psv/peep) NA 06/22/16 20:03 Critical Value RPINEIRA 06/22/16 20:03 Sodium 131 mEq/L (136-145) L 07/08/16 05:00 Potassium 3.7 mEq/L (3.5-5.1) 07/08/16 05:00 Chloride 100 mEq/L (98-107) 07/08/16 05:00 Carbon Dioxide 26.4 mEq/L (21.0-31.0) 07/08/16 05:00 Anion Gap 8.3 (7.0-16.0) 07/08/16 05:00 BUN 31 mg/dL (7-25) H 07/08/16 05:00 Creatinine 3.1 mg/dL (0.7-1.3) H 07/08/16 05:00 Est GFR ( Amer) 27.7 ml/min (>90) 07/08/16 05:00 Est GFR (Non-Af Amer) 22.9 ml/min 07/08/16 05:00 BUN/Creatinine Ratio 10.0 07/08/16 05:00 Glucose 95 mg/dL (70-105) 07/08/16 05:00 Calcium 8.6 mg/dL (8.6-10.3) 07/08/16 05:00 Phosphorus 3.5 mg/dL (2.5-5.0) 07/08/16 05:00 Magnesium 2.0 mg/dL (1.9-2.7) 07/07/16 06:00 Iron 42 ug/dL (38-169) 06/28/16 04:38 TIBC 269 ug/dL (250-450) 06/28/16 04:38 Iron Saturation 16 % (15-55) 06/28/16 04:38 Unsaturated IBC 227 ug/dL (111-343) 06/28/16 04:38 Ferritin 150 ng/mL (30-400) 06/26/16 08:30 Total Bilirubin 4.0 mg/dL (0.3-1.0) H 07/01/16 06:57 Direct Bilirubin 0.70 mg/dL (0.0-0.2) H 06/28/16 04:38 GGTP 14 IU/L (0-65) 06/28/16 04:38 AST 64 U/L (13-39) H 07/01/16 06:57 ALT 16 U/L (7-52) 07/01/16 06:57 Alkaline Phosphatase 94 U/L (34-104) 07/01/16 06:57 Ammonia 105 umol/L (16-53) H 07/02/16 06:40 Troponin I < 0.01 ng/mL (0.01-0.05) L 06/22/16 19:33 B-Natriuretic Peptide 668.0 pg/mL (5.0-100.0) H 06/22/16 19:33 Total Protein 7.5 gm/dL (6.0-8.3) 07/01/16 06:57 Albumin 2.8 gm/dL (4.2-5.5) L 07/01/16 06:57 Globulin 4.7 gm/dL 07/01/16 06:57 Albumin/Globulin Ratio 0.6 (1.0-1.8) L 07/01/16 06:57 Amylase 28 U/L (29-103) L 07/02/16 06:40 Lipase 31 U/L (11-82) 07/02/16 06:40 Urine Source CLEAN C 06/29/16 05:55 Urine Color YELLOW 06/29/16 05:55 Urine Clarity HAZY (CLEAR) 06/29/16 05:55 Urine pH 5.5 06/29/16 05:55 Ur Specific [place] 1.015 (1.005-1.030) 06/29/16 05:55 Urine Protein 30 mg/dL (NEGATIVE) H 06/29/16 05:55 Urine Glucose (UA) NEGATIVE mg/dL (NEGATIVE) 06/29/16 05:55 Urine Ketones NEGATIVE mg/dL (NEGATIVE) 06/29/16 05:55 Urine Blood NEGATIVE (NEGATIVE) 06/29/16 05:55 Urine Nitrate NEGATIVE (NEGATIVE) 06/29/16 05:55 Urine Bilirubin NEGATIVE (NEGATIVE) 06/29/16 05:55 Urine Urobilinogen 0.2 E.U./dL (0.2 - 1.0) 06/29/16 05:55 Ur Leukocyte Esterase TRACE (NEGATIVE) H 06/29/16 05:55 Urine RBC 0-2 /hpf (0-5) H 06/29/16 05:55 Urine WBC 6-10 /hpf (0-5) H 06/29/16 05:55 Ur Epithelial Cells FEW /lpf (FEW) 06/29/16 05:55 Urine Bacteria MANY /hpf (NONE SEEN) 06/29/16 05:55 Stool Occult Blood POSITIVE (NEGATIVE) 06/24/16 16:00 Random Vancomycin 13.4 ug/mL (5.0-40.0) 06/28/16 04:38 RPR NONREACTIVE (NONREACTIVE) 06/22/16 19:33 Hepatitis A IgM Ab Negative (Negative) 06/29/16 05:49 Hep Bs Antigen Negative (Negative) 06/29/16 05:49 Hep B Core IgM Ab Negative (Negative) 06/29/16 05:49 Hepatitis C Antibody >11.0 s/co ratio (0.0-0.9) H 06/29/16 05:49 Blood Type A POSITIVE 06/28/16 04:38 Antibody Screen NEGATIVE 06/28/16 04:38 Crossmatch See Detail 06/28/16 04:38 - Physical Exam Vitals and I&O: Vital Signs Temp 99 F 07/13/16 03:52 Pulse 95 07/13/16 06:24 Resp 18 07/13/16 08:00 BP 98/51 07/13/16 03:52 Pulse Ox 96 07/13/16 03:52 Intake & Output 07/12/16 07/13/16 07/13/16 18:59 06:59 18:59 Intake Total 600 480 Output Total 3650 Balance 600 -3170 Intake: Oral 600 480 Output: Urine 550 Other 3100 Other: # Voids 2 1 # Bowel Movements 1 1 Stool Characteristics Formed [place] Active Medications: Current Medications Acetaminophen (Tylenol) 325 mg PO Q6HR PRN PRN Reason: Mild Pain or Fever >101 Stop: 08/22/16 20:30 Albuterol/Ipratropium (Duoneb Neb) 3 ml HHN Q2HR PRN PRN Reason: Shortness of Breath or Wheeze Stop: 09/08/16 09:51 Aspirin (Ecotrin) 325 mg PO DAILY [facility] Stop: 09/03/16 09:14 Last Admin: 07/13/16 09:45 Dose: 325 mg Calamine/Phenol (Calmoseptine) 1 appl TP QID PRN PRN Reason: Skin Irritation Stop: 09/08/16 18:33 Calamine/Phenol (Calmoseptine) 1 appl TP QID [facility] Stop: 09/08/16 20:59 Last Admin: 07/13/16 09:46 Dose: 1 appl Carvedilol (Coreg) 12.5 mg PO BID [facility] Stop: 09/05/16 16:59 Last Admin: 07/13/16 09:45 Dose: Not Given Cholecalciferol (Vitamin D3) 2,000 iu PO DAILY [facility] Stop: 08/23/16 08:59 Last Admin: 07/13/16 09:45 Dose: 2,000 iu Diltiazem HCl (Cardizem) 60 mg PO Q6HR [facility] Stop: 09/04/16 11:59 Last Admin: 07/13/16 06:24 Dose: Not Given Diphenhydramine HCl (Benadryl 50 Mg/Ml) 50 mg IM Q8HR PRN PRN Reason: Agitation Stop: 08/25/16 12:10 Docusate Sodium (Colace) 100 mg PO BID [facility] Stop: 08/22/16 16:59 Last Admin: 07/13/16 09:45 Dose: 100 mg Haloperidol Lactate (Haldol) 5 mg IM Q8HR PRN PRN Reason: Agitation Stop: 08/25/16 12:10 Levothyroxine Sodium (Synthroid) 0.05 mg PO QDAC [facility] Stop: 08/23/16 07:29 Last Admin: 07/13/16 06:34 Dose: 0.05 mg Miscellaneous (Clinical Monitoring) 1 ea MC PRN PRN PRN Reason: RENAL DOSING Stop: 08/31/16 16:27 Morphine Sulfate (Morphine) 1 mg IV Q4H PRN PRN Reason: SEVERE PAIN Stop: 08/22/16 04:40 Last Admin: 07/13/16 09:44 Dose: 1 mg Ondansetron HCl (Zofran Odt) 4 mg PO Q6HR PRN PRN Reason: Nausea / Vomiting Stop: 08/22/16 20:30 Pantoprazole Sodium (Protonix) 40 mg PO DAILY [facility] Stop: 08/23/16 08:59 Last Admin: 07/13/16 09:45 Dose: 40 mg Quetiapine Fumarate (Seroquel) 100 mg PO TID [facility] PRN Reason: Protocol Stop: 08/26/16 08:59 Last Admin: 07/13/16 09:45 Dose: Not Given Vitamin B Complex/Vit C/Folic Acid (Vitamin B Complex W/Vitamin C) 1 tab PO DAILY [facility] Stop: 08/23/16 08:59 Last Admin: 07/13/16 09:45 Dose: 1 tab General: no acute distress, other (obesity.) HEENT: atraumatic, normocephalic, PERRLA, EOMI, moist mucous membrane Neck: supple, no thyromegaly, no lymphadenopathy Cardiovascular: S1S2, regular Lungs: clear to auscultation bilaterally, clear to percussion Abdomen: soft, no tender, no distended Extremities: other (swollen legs.), no cyanosis, no clubbing Neurological: awake, alert, oriented - Procedures Procedures: Procedures Procedure Code Date ARTERY-VEIN NONAUTOGRAFT 58136 06/22/16 BYPASS L BRACH ART TO UP ARM VEIN W NONAUT SUB, OPEN [id number] 06/22/16 FLUOROSCOPY OF SUP VENA CAVA USING [facility] CONTRAST, GUIDANCE [id number] 06/22/16 INSERTION OF INFUSION DEV INTO SUP VENA CAVA, PERC APPROACH [id number] 06/22/[address] PL[address] CATHETER IN VEIN [address] 06/22/16 Infectious Disease Assmt/Plan - Problem List Patient Problems: All Active Problems MEDICAL EVALUATION PER DR FRY (Acute) - Assessment Assessment: 1. Cellulitis of legs. improved. treated. 2. Lymphedema of legs. 3. CKD 5 on HD. 4. Morbid obesity. - Plan Plan: Continue same treatment. DC plan.
--- NOTE | 2016-07-13 15:28 | General Progress Note ---
Subjective - Review of Systems Service Date: 07/13/16 Subjective: still uncooperative, screaming Objective - Results Result Diagrams: 07/07/16 06:00 07/08/16 05:00 Recent Labs: Laboratory Last Values WBC 4.6 Th/cmm (4.8-10.8) L 07/07/16 06:00 RBC 2.90 Mil/cmm (4.30-5.70) L 07/07/16 06:00 Hgb 8.3 gm/dL (13.2-17.3) L 07/07/16 06:00 Hct 25.2 % (39.0-49.0) L 07/07/16 06:00 MCV 86.8 fl (80-99) 07/07/16 06:00 MCH 28.6 pg (26.0-30.0) 07/07/16 06:00 MCHC Differential 32.9 pg (28.0-36.0) 07/07/16 06:00 RDW 15.2 % (11.5-20.0) 07/07/16 06:00 Plt Count 102 Th/cmm (150-400) L 07/07/16 06:00 MPV 8.6 fl 07/07/16 06:00 Neutrophils % 56.8 % (40.0-80.0) 07/07/16 06:00 Band Neutrophils % 0 % (0-10) 07/04/16 04:58 Lymphocytes % 18.4 % (20.0-50.0) L 07/07/16 06:00 Monocytes % 13.8 % (2.0-10.0) H 07/07/16 06:00 Eosinophils % 11.0 % (0.0-5.0) H 07/07/16 06:00 Basophils % 0.0 % (0.0-2.0) 07/07/16 06:00 Neutrophils (Manual) 59 % (40-80) 07/05/16 12:15 Lymphocytes 13 % (20-50) L 07/05/16 12:15 Monocytes 16 % (2-10) H 07/05/16 12:15 Eosinophils 10 % (0-5) H 07/05/16 12:15 Basophils 2 % (0-3) 07/05/16 12:15 Hypochromia 1+ 06/22/16 19:33 Platelet Estimate DECREASED PLATELETS (NORMAL) 07/05/16 12:15 Platelet Morphology NORMAL (NORMAL) 07/05/16 12:15 Polychromasia 1+ 07/03/16 05:30 Anisocytosis 1+ 07/05/16 12:15 RBC Morph Micro Appear ABNORMAL (NORMAL) 07/05/16 12:15 PT 12.7 SECONDS (9.5-11.5) H 07/01/16 06:57 INR 1.26 (0.5-1.4) 07/01/16 06:57 PTT (Actin FS) 28.3 SECONDS (26.0-38.0) 06/28/16 04:38 Specimen Source art 06/22/16 20:03 Sample Site Right Radial 06/22/16 20:03 pH 7.49 (7.35-7.45) H 06/22/16 20:03 pCO2 34.0 mmHg (35.0-45.0) L 06/22/16 20:03 pO2 97.0 mmHg (80.0-100.0) 06/22/16 20:03 HCO3 25.9 mmol/L (20.0-26.0) 06/22/16 20:03 Base Excess 2.8 mmol/L (-3.0-3.0) 06/22/16 20:03 O2 Saturation 98.0 % (92.0-100.0) 06/22/16 20:03 Estuardo Test P 06/22/16 20:03 Vent Rate NA 06/22/16 20:03 Inspired O2 21 06/22/16 20:03 Tidal Volume NA 06/22/16 20:03 PEEP NA 06/22/16 20:03 Pressure (ins/psv/peep) NA 06/22/16 20:03 Critical Value RPINEIRA 06/22/16 20:03 Sodium 131 mEq/L (136-145) L 07/08/16 05:00 Potassium 3.7 mEq/L (3.5-5.1) 07/08/16 05:00 Chloride 100 mEq/L (98-107) 07/08/16 05:00 Carbon Dioxide 26.4 mEq/L (21.0-31.0) 07/08/16 05:00 Anion Gap 8.3 (7.0-16.0) 07/08/16 05:00 BUN 31 mg/dL (7-25) H 07/08/16 05:00 Creatinine 3.1 mg/dL (0.7-1.3) H 07/08/16 05:00 Est GFR ( Amer) 27.7 ml/min (>90) 07/08/16 05:00 Est GFR (Non-Af Amer) 22.9 ml/min 07/08/16 05:00 BUN/Creatinine Ratio 10.0 07/08/16 05:00 Glucose 95 mg/dL (70-105) 07/08/16 05:00 Calcium 8.6 mg/dL (8.6-10.3) 07/08/16 05:00 Phosphorus 3.5 mg/dL (2.5-5.0) 07/08/16 05:00 Magnesium 2.0 mg/dL (1.9-2.7) 07/07/16 06:00 Iron 42 ug/dL (38-169) 06/28/16 04:38 TIBC 269 ug/dL (250-450) 06/28/16 04:38 Iron Saturation 16 % (15-55) 06/28/16 04:38 Unsaturated IBC 227 ug/dL (111-343) 06/28/16 04:38 Ferritin 150 ng/mL (30-400) 06/26/16 08:30 Total Bilirubin 4.0 mg/dL (0.3-1.0) H 07/01/16 06:57 Direct Bilirubin 0.70 mg/dL (0.0-0.2) H 06/28/16 04:38 GGTP 14 IU/L (0-65) 06/28/16 04:38 AST 64 U/L (13-39) H 07/01/16 06:57 ALT 16 U/L (7-52) 07/01/16 06:57 Alkaline Phosphatase 94 U/L (34-104) 07/01/16 06:57 Ammonia 105 umol/L (16-53) H 07/02/16 06:40 Troponin I < 0.01 ng/mL (0.01-0.05) L 06/22/16 19:33 B-Natriuretic Peptide 668.0 pg/mL (5.0-100.0) H 06/22/16 19:33 Total Protein 7.5 gm/dL (6.0-8.3) 07/01/16 06:57 Albumin 2.8 gm/dL (4.2-5.5) L 07/01/16 06:57 Globulin 4.7 gm/dL 07/01/16 06:57 Albumin/Globulin Ratio 0.6 (1.0-1.8) L 07/01/16 06:57 Amylase 28 U/L (29-103) L 07/02/16 06:40 Lipase 31 U/L (11-82) 07/02/16 06:40 Urine Source CLEAN C 06/29/16 05:55 Urine Color YELLOW 06/29/16 05:55 Urine Clarity HAZY (CLEAR) 06/29/16 05:55 Urine pH 5.5 06/29/16 05:55 Ur Specific [place] 1.015 (1.005-1.030) 06/29/16 05:55 Urine Protein 30 mg/dL (NEGATIVE) H 06/29/16 05:55 Urine Glucose (UA) NEGATIVE mg/dL (NEGATIVE) 06/29/16 05:55 Urine Ketones NEGATIVE mg/dL (NEGATIVE) 06/29/16 05:55 Urine Blood NEGATIVE (NEGATIVE) 06/29/16 05:55 Urine Nitrate NEGATIVE (NEGATIVE) 06/29/16 05:55 Urine Bilirubin NEGATIVE (NEGATIVE) 06/29/16 05:55 Urine Urobilinogen 0.2 E.U./dL (0.2 - 1.0) 06/29/16 05:55 Ur Leukocyte Esterase TRACE (NEGATIVE) H 06/29/16 05:55 Urine RBC 0-2 /hpf (0-5) H 06/29/16 05:55 Urine WBC 6-10 /hpf (0-5) H 06/29/16 05:55 Ur Epithelial Cells FEW /lpf (FEW) 06/29/16 05:55 Urine Bacteria MANY /hpf (NONE SEEN) 06/29/16 05:55 Stool Occult Blood POSITIVE (NEGATIVE) 06/24/16 16:00 Random Vancomycin 13.4 ug/mL (5.0-40.0) 06/28/16 04:38 RPR NONREACTIVE (NONREACTIVE) 06/22/16 19:33 Hepatitis A IgM Ab Negative (Negative) 06/29/16 05:49 Hep Bs Antigen Negative (Negative) 06/29/16 05:49 Hep B Core IgM Ab Negative (Negative) 06/29/16 05:49 Hepatitis C Antibody >11.0 s/co ratio (0.0-0.9) H 06/29/16 05:49 Blood Type A POSITIVE 06/28/16 04:38 Antibody Screen NEGATIVE 06/28/16 04:38 Crossmatch See Detail 06/28/16 04:38 - Physical Exam Vitals and I&O: Vital Signs Temp 97.5 F 07/13/16 11:00 Pulse 103 07/13/16 11:00 Resp 18 07/13/16 11:00 BP 97/64 07/13/16 11:00 Pulse Ox 95 07/13/16 11:00 Intake & Output 07/12/16 07/13/16 07/13/16 18:59 06:59 18:59 Intake Total 600 480 Output Total 3650 Balance 600 -3170 Intake: Oral 600 480 Output: Urine 550 Other 3100 Other: # Voids 2 1 # Bowel Movements 1 1 Stool Characteristics Formed [place] Active Medications: Current Medications Acetaminophen (Tylenol) 325 mg PO Q6HR PRN PRN Reason: Mild Pain or Fever >101 Stop: 08/22/16 20:30 Albuterol/Ipratropium (Duoneb Neb) 3 ml HHN Q2HR PRN PRN Reason: Shortness of Breath or Wheeze Stop: 09/08/16 09:51 Aspirin (Ecotrin) 325 mg PO DAILY [facility] Stop: 09/03/16 09:14 Last Admin: 07/13/16 09:45 Dose: 325 mg Calamine/Phenol (Calmoseptine) 1 appl TP QID PRN PRN Reason: Skin Irritation Stop: 09/08/16 18:33 Calamine/Phenol (Calmoseptine) 1 appl TP QID [facility] Stop: 09/08/16 20:59 Last Admin: 07/13/16 09:46 Dose: 1 appl Carvedilol (Coreg) 12.5 mg PO BID [facility] Stop: 09/05/16 16:59 Last Admin: 07/13/16 09:45 Dose: Not Given Cholecalciferol (Vitamin D3) 2,000 iu PO DAILY [facility] Stop: 08/23/16 08:59 Last Admin: 07/13/16 09:45 Dose: 2,000 iu Diltiazem HCl (Cardizem) 60 mg PO Q6HR [facility] Stop: 09/04/16 11:59 Last Admin: 07/13/16 12:43 Dose: Not Given Diphenhydramine HCl (Benadryl 50 Mg/Ml) 50 mg IM Q8HR PRN PRN Reason: Agitation Stop: 08/25/16 12:10 Docusate Sodium (Colace) 100 mg PO BID [facility] Stop: 08/22/16 16:59 Last Admin: 07/13/16 09:45 Dose: 100 mg Haloperidol Lactate (Haldol) 5 mg IM Q8HR PRN PRN Reason: Agitation Stop: 08/25/16 12:10 Levothyroxine Sodium (Synthroid) 0.05 mg PO QDAC [facility] Stop: 08/23/16 07:29 Last Admin: 07/13/16 06:34 Dose: 0.05 mg Miscellaneous (Clinical Monitoring) 1 ea MC PRN PRN PRN Reason: RENAL DOSING Stop: 08/31/16 16:27 Morphine Sulfate (Morphine) 1 mg IV Q4H PRN PRN Reason: SEVERE PAIN Stop: 08/22/16 04:40 Last Admin: 07/13/16 09:44 Dose: 1 mg Ondansetron HCl (Zofran Odt) 4 mg PO Q6HR PRN PRN Reason: Nausea / Vomiting Stop: 08/22/16 20:30 Pantoprazole Sodium (Protonix) 40 mg PO DAILY [facility] Stop: 08/23/16 08:59 Last Admin: 07/13/16 09:45 Dose: 40 mg Quetiapine Fumarate (Seroquel) 100 mg PO TID [facility] PRN Reason: Protocol Stop: 08/26/16 08:59 Last Admin: 07/13/16 15:04 Dose: Not Given Vitamin B Complex/Vit C/Folic Acid (Vitamin B Complex W/Vitamin C) 1 tab PO DAILY [facility] Stop: 08/23/16 08:59 Last Admin: 07/13/16 09:45 Dose: 1 tab General: Alert, Mild distress HEENT: Atraumatic, Mucous membr. moist/pink Neck: Supple, +2 carotid pulse wo bruit Cardiovascular: Regular rate, Normal S1, Normal S2 Lungs: Other (few rhonchi) Abdomen: Bowel sounds Extremities: Edema (bipedal edema (+2)) Neurological: Sensation intact Skin: no Rash - Procedures Procedures: Procedures Procedure Code Date ARTERY-VEIN NONAUTOGRAFT 77933 06/22/16 BYPASS L BRACH ART TO UP ARM VEIN W NONAUT SUB, OPEN [id number] 06/22/16 FLUOROSCOPY OF SUP VENA CAVA USING [facility] CONTRAST, GUIDANCE [id number] 06/22/16 INSERTION OF INFUSION DEV INTO SUP VENA CAVA, PERC APPROACH [id number] 06/22/16 PLACE CATHETER IN VEIN [address]998 06/22/16 Assessment/Plan - Problem List Patient Problems: All Active Problems MEDICAL EVALUATION PER DR FRY (Acute) - Assessment Assessment: esrd on hd persistent cellulitis b/l lower ext acute on chronic anemia possible gi bleed ohs chronic a. fib hypothyroid anasarca functional quadriplegia chronic venous stasis dermatitis acute decomp psychosis hypokalemia, hypomagnesemia s/p left avg - Plan Plan: hgb/hct slightly improved to 8.7/25.8 agree w/ K replacement for hd tomorrow placement in progress continue psych meds
[2016-07-14] MEDS: Diltiazem 30 mg Tab PO SCH ×3 (00:37→12:33)
[2016-07-14] MEDS: Morphine Sulfate 2 mg/mL 1mL Syr IV PRN ×2 (04:53→22:10)
[2016-07-14] MEDS: Levothyroxine 0.05 Mg Tab PO SCH (06:39)
[2016-07-14 07:33] LABS: ALB/GLOB RATIO 0.6 (1.0-1.8); ANION GAP 12.2 (7.0-16.0); BILIRUBIN,TOTAL 0.9 mg/dL (0.3-1.0); BUN/CREATININE RATIO 10.2; CALCIUM SERUM 9.1 mg/dL (8.6-10.3); CARBON DIOXIDE 26.1 mEq/L (21.0-31.0); POTASSIUM SERUM 4.3 mEq/L (3.5-5.1)
[2016-07-14 07:53] LABS: CREATININE - SERUM 4.3 mg/dL (0.7-1.3)
[2016-07-14] MEDS: Aspirin 325 mg EC PO SCH (08:40)
[2016-07-14] MEDS: Pantoprazole 40 mg EC Tab PO SCH (08:40)
[2016-07-14] MEDS: Ammonium Lactate Cream 140 gm Tube TP SCH ×2 (09:19→17:27)
[2016-07-14] MEDS: Vitamin B Complex w/Vitamin C Tab PO SCH (09:20)
[2016-07-14] MEDS: Menthol/Zinc Oxide Oint 113gm Tube TP SCH ×4 (09:20→21:00)
--- NOTE | 2016-07-14 13:17 | General Progress Note ---
Subjective - Review of Systems Service Date: 07/14/16 Subjective: sleeping but still uncooperative, screaming Objective - Results Result Diagrams: 07/07/16 06:00 07/14/16 06:45 Recent Labs: Laboratory Last Values WBC 4.6 Th/cmm (4.8-10.8) L 07/07/16 06:00 RBC 2.90 Mil/cmm (4.30-5.70) L 07/07/16 06:00 Hgb 8.3 gm/dL (13.2-17.3) L 07/07/16 06:00 Hct 25.2 % (39.0-49.0) L 07/07/16 06:00 MCV 86.8 fl (80-99) 07/07/16 06:00 MCH 28.6 pg (26.0-30.0) 07/07/16 06:00 MCHC Differential 32.9 pg (28.0-36.0) 07/07/16 06:00 RDW 15.2 % (11.5-20.0) 07/07/16 06:00 Plt Count 102 Th/cmm (150-400) L 07/07/16 06:00 MPV 8.6 fl 07/07/16 06:00 Neutrophils % 56.8 % (40.0-80.0) 07/07/16 06:00 Band Neutrophils % 0 % (0-10) 07/04/16 04:58 Lymphocytes % 18.4 % (20.0-50.0) L 07/07/16 06:00 Monocytes % 13.8 % (2.0-10.0) H 07/07/16 06:00 Eosinophils % 11.0 % (0.0-5.0) H 07/07/16 06:00 Basophils % 0.0 % (0.0-2.0) 07/07/16 06:00 Neutrophils (Manual) 59 % (40-80) 07/05/16 12:15 Lymphocytes 13 % (20-50) L 07/05/16 12:15 Monocytes 16 % (2-10) H 07/05/16 12:15 Eosinophils 10 % (0-5) H 07/05/16 12:15 Basophils 2 % (0-3) 07/05/16 12:15 Hypochromia 1+ 06/22/16 19:33 Platelet Estimate DECREASED PLATELETS (NORMAL) 07/05/16 12:15 Platelet Morphology NORMAL (NORMAL) 07/05/16 12:15 Polychromasia 1+ 07/03/16 05:30 Anisocytosis 1+ 07/05/16 12:15 RBC Morph Micro Appear ABNORMAL (NORMAL) 07/05/16 12:15 PT 12.7 SECONDS (9.5-11.5) H 07/01/16 06:57 INR 1.26 (0.5-1.4) 07/01/16 06:57 PTT (Actin FS) 28.3 SECONDS (26.0-38.0) 06/28/16 04:38 Specimen Source art 06/22/16 20:03 Sample Site Right Radial 06/22/16 20:03 pH 7.49 (7.35-7.45) H 06/22/16 20:03 pCO2 34.0 mmHg (35.0-45.0) L 06/22/16 20:03 pO2 97.0 mmHg (80.0-100.0) 06/22/16 20:03 HCO3 25.9 mmol/L (20.0-26.0) 06/22/16 20:03 Base Excess 2.8 mmol/L (-3.0-3.0) 06/22/16 20:03 O2 Saturation 98.0 % (92.0-100.0) 06/22/16 20:03 Estuardo Test P 06/22/16 20:03 Vent Rate NA 06/22/16 20:03 Inspired O2 21 06/22/16 20:03 Tidal Volume NA 06/22/16 20:03 PEEP NA 06/22/16 20:03 Pressure (ins/psv/peep) NA 06/22/16 20:03 Critical Value RPINEIRA 06/22/16 20:03 Sodium 130 mEq/L (136-145) L 07/14/16 06:45 Potassium 4.3 mEq/L (3.5-5.1) 07/14/16 06:45 Chloride 96 mEq/L (98-107) L 07/14/16 06:45 Carbon Dioxide 26.1 mEq/L (21.0-31.0) 07/14/16 06:45 Anion Gap 12.2 (7.0-16.0) 07/14/16 06:45 BUN 44 mg/dL (7-25) H 07/14/16 06:45 Creatinine 4.3 mg/dL (0.7-1.3) H* 07/14/16 06:45 Est GFR ( Amer) 19.0 ml/min (>90) 07/14/16 06:45 Est GFR (Non-Af Amer) 15.7 ml/min 07/14/16 06:45 BUN/Creatinine Ratio 10.2 07/14/16 06:45 Glucose 99 mg/dL (70-105) 07/14/16 06:45 Calcium 9.1 mg/dL (8.6-10.3) 07/14/16 06:45 Phosphorus 3.5 mg/dL (2.5-5.0) 07/08/16 05:00 Magnesium 2.0 mg/dL (1.9-2.7) 07/07/16 06:00 Iron 42 ug/dL (38-169) 06/28/16 04:38 TIBC 269 ug/dL (250-450) 06/28/16 04:38 Iron Saturation 16 % (15-55) 06/28/16 04:38 Unsaturated IBC 227 ug/dL (111-343) 06/28/16 04:38 Ferritin 150 ng/mL (30-400) 06/26/16 08:30 Total Bilirubin 0.9 mg/dL (0.3-1.0) 07/14/16 06:45 Direct Bilirubin 0.70 mg/dL (0.0-0.2) H 06/28/16 04:38 GGTP 14 IU/L (0-65) 06/28/16 04:38 AST 27 U/L (13-39) 07/14/16 06:45 ALT 8 U/L (7-52) 07/14/16 06:45 Alkaline Phosphatase 42 U/L (34-104) 07/14/16 06:45 Ammonia 105 umol/L (16-53) H 07/02/16 06:40 Troponin I < 0.01 ng/mL (0.01-0.05) L 06/22/16 19:33 B-Natriuretic Peptide 668.0 pg/mL (5.0-100.0) H 06/22/16 19:33 Total Protein 7.7 gm/dL (6.0-8.3) 07/14/16 06:45 Albumin 2.8 gm/dL (4.2-5.5) L 07/14/16 06:45 Globulin 4.9 gm/dL 07/14/16 06:45 Albumin/Globulin Ratio 0.6 (1.0-1.8) L 07/14/16 06:45 Amylase 28 U/L (29-103) L 07/02/16 06:40 Lipase 31 U/L (11-82) 07/02/16 06:40 Urine Source CLEAN C 06/29/16 05:55 Urine Color YELLOW 06/29/16 05:55 Urine Clarity HAZY (CLEAR) 06/29/16 05:55 Urine pH 5.5 06/29/16 05:55 Ur Specific [place] 1.015 (1.005-1.030) 06/29/16 05:55 Urine Protein 30 mg/dL (NEGATIVE) H 06/29/16 05:55 Urine Glucose (UA) NEGATIVE mg/dL (NEGATIVE) 06/29/16 05:55 Urine Ketones NEGATIVE mg/dL (NEGATIVE) 06/29/16 05:55 Urine Blood NEGATIVE (NEGATIVE) 06/29/16 05:55 Urine Nitrate NEGATIVE (NEGATIVE) 06/29/16 05:55 Urine Bilirubin NEGATIVE (NEGATIVE) 06/29/16 05:55 Urine Urobilinogen 0.2 E.U./dL (0.2 - 1.0) 06/29/16 05:55 Ur Leukocyte Esterase TRACE (NEGATIVE) H 06/29/16 05:55 Urine RBC 0-2 /hpf (0-5) H 06/29/16 05:55 Urine WBC 6-10 /hpf (0-5) H 06/29/16 05:55 Ur Epithelial Cells FEW /lpf (FEW) 06/29/16 05:55 Urine Bacteria MANY /hpf (NONE SEEN) 06/29/16 05:55 Stool Occult Blood POSITIVE (NEGATIVE) 06/24/16 16:00 Random Vancomycin 13.4 ug/mL (5.0-40.0) 06/28/16 04:38 RPR NONREACTIVE (NONREACTIVE) 06/22/16 19:33 Hepatitis A IgM Ab Negative (Negative) 06/29/16 05:49 Hep Bs Antigen Negative (Negative) 06/29/16 05:49 Hep B Core IgM Ab Negative (Negative) 06/29/16 05:49 Hepatitis C Antibody >11.0 s/co ratio (0.0-0.9) H 06/29/16 05:49 Blood Type A POSITIVE 06/28/16 04:38 Antibody Screen NEGATIVE 06/28/16 04:38 Crossmatch See Detail 06/28/16 04:38 - Physical Exam Vitals and I&O: Vital Signs Temp 98.2 F 07/14/16 08:00 Pulse 115 07/14/16 08:00 Resp 20 07/14/16 08:00 BP 119/79 07/14/16 08:00 Pulse Ox 98 07/14/16 08:00 Intake & Output 07/13/16 07/14/16 07/14/16 18:59 06:59 18:59 Intake Total 600 480 Output Total 1500 Balance 600 -1020 Intake: Oral 600 480 Output: Urine 1500 Other: # Voids 2 # Bowel Movements 1 1 1 Active Medications: Current Medications Acetaminophen (Tylenol) 325 mg PO Q6HR PRN PRN Reason: Mild Pain or Fever >101 Stop: 08/22/16 20:30 Albuterol/Ipratropium (Duoneb Neb) 3 ml HHN Q2HR PRN PRN Reason: Shortness of Breath or Wheeze Stop: 09/08/16 09:51 Aspirin (Ecotrin) 325 mg PO DAILY [facility] Stop: 09/03/16 09:14 Last Admin: 07/14/16 08:40 Dose: 325 mg Calamine/Phenol (Calmoseptine) 1 appl TP QID PRN PRN Reason: Skin Irritation Stop: 09/08/16 18:33 Calamine/Phenol (Calmoseptine) 1 appl TP QID [facility] Stop: 09/08/16 20:59 Last Admin: 07/14/16 12:33 Dose: Not Given Carvedilol (Coreg) 12.5 mg PO BID [facility] Stop: 09/05/16 16:59 Last Admin: 07/14/16 09:20 Dose: Not Given Cholecalciferol (Vitamin D3) 2,000 iu PO DAILY [facility] Stop: 08/23/16 08:59 Last Admin: 07/14/16 09:20 Dose: Not Given Diltiazem HCl (Cardizem) 60 mg PO Q6HR [facility] Stop: 09/04/16 11:59 Last Admin: 07/14/16 12:33 Dose: Not Given Diphenhydramine HCl (Benadryl 50 Mg/Ml) 50 mg IM Q8HR PRN PRN Reason: Agitation Stop: 08/25/16 12:10 Docusate Sodium (Colace) 100 mg PO BID [facility] Stop: 08/22/16 16:59 Last Admin: 07/14/16 08:39 Dose: 100 mg Haloperidol Lactate (Haldol) 5 mg IM Q8HR PRN PRN Reason: Agitation Stop: 08/25/16 12:10 Lactic Acid (Lac-Hydrin Cream) 1 appl TP BID [facility] Stop: 09/12/16 08:59 Last Admin: 07/14/16 09:19 Dose: Not Given Levothyroxine Sodium (Synthroid) 0.05 mg PO QDAC [facility] Stop: 08/23/16 07:29 Last Admin: 07/14/16 06:39 Dose: 0.05 mg Miscellaneous (Clinical Monitoring) 1 ea MC PRN PRN PRN Reason: RENAL DOSING Stop: 08/31/16 16:27 Morphine Sulfate (Morphine) 1 mg IV Q4H PRN PRN Reason: SEVERE PAIN Stop: 08/22/16 04:40 Last Admin: 07/14/16 04:53 Dose: 1 mg Ondansetron HCl (Zofran Odt) 4 mg PO Q6HR PRN PRN Reason: Nausea / Vomiting Stop: 08/22/16 20:30 Pantoprazole Sodium (Protonix) 40 mg PO DAILY [facility] Stop: 08/23/16 08:59 Last Admin: 07/14/16 08:40 Dose: 40 mg Quetiapine Fumarate (Seroquel) 100 mg PO TID [facility] PRN Reason: Protocol Stop: 08/26/16 08:59 Last Admin: 07/14/16 09:20 Dose: Not Given Vitamin B Complex/Vit C/Folic Acid (Vitamin B Complex W/Vitamin C) 1 tab PO DAILY [facility] Stop: 08/23/16 08:59 Last Admin: 07/14/16 09:20 Dose: Not Given General: No acute distress HEENT: Atraumatic, Mucous membr. moist/pink Neck: Supple, +2 carotid pulse wo bruit Cardiovascular: Regular rate, Normal S1, Normal S2 Lungs: Other (few rhonchi) Abdomen: Bowel sounds, Soft Extremities: Edema (bipedal edema (+) 3, upper ext edema) Neurological: Sensation intact Skin: no Rash Psych/Mental Status: Other (psychosis) - Procedures Procedures: Procedures Procedure Code Date ARTERY-VEIN NONAUTOGRAFT 31410 06/22/16 BYPASS L BRACH ART TO UP ARM VEIN W NONAUT SUB, OPEN [id number] 06/22/16 FLUOROSCOPY OF SUP VENA CAVA USING [facility] CONTRAST, GUIDANCE [id number] 06/22/16 INSERTION OF INFUSION DEV INTO SUP VENA CAVA, PERC APPROACH [id number] 06/22/[address] PL[address] CATHETER IN VEIN [address]96 06/22/16 Assessment/Plan - Problem List Patient Problems: All Active Problems MEDICAL EVALUATION PER DR FRY (Acute) - Assessment Assessment: esrd on hd persistent cellulitis b/l lower ext acute on chronic anemia possible gi bleed ohs chronic a. fib hypothyroid anasarca functional quadriplegia chronic venous stasis dermatitis acute decomp psychosis hypokalemia, hypomagnesemia s/p left avg - Plan Plan: hgb/hct slightly improved to 8.7/25.8 agree w/ K replacement for hd today placement in progress continue psych meds
[2016-07-14 16:20] LABS: HEMATOCRIT 24.8 % (39.0-49.0); HEMOGLOBIN 8.2 gm/dL (13.2-17.3); MEAN CELL VOLUME 86.9 fl (80-99); MEAN CORPUSCULAR HEMOGLOBIN 28.5 pg (26.0-30.0); MEAN CORPUSCULAR HGB CONC 32.8 pg (28.0-36.0); MEAN PLATELET VOLUME 9.3 fl; RED BLOOD COUNT 2.86 Mil/cmm (4.30-5.70); RED CELL DISTRIBUTION WIDTH 14.8 % (11.5-20.0); WHITE BLOOD COUNT 4.2 Th/cmm (4.8-10.8)
[2016-07-14 16:50] LABS: PLATELET COUNT 131 Th/cmm (150-400)
[2016-07-14 16:56] LABS: EOSINOPHIL 13 % (0-5); MICROCYTOSIS 1+; MYELOCYTE 1 %; NEUTROPHILS 66 % (40-80); PLATELET ESTIMATE SLIGHT DECREASED (NORMAL); PLATELET MORPHOLOGY NORMAL (NORMAL); TOTAL CELLS COUNTED 100
--- NOTE | 2016-07-14 23:16 | Infectious Disease Prog Note ---
Infectious Disease Subjective - Review of Systems Service Date: 07/14/16 Subjective: No change. Infectious Disease Objective - Results Result Diagrams: 07/14/16 16:00 07/14/16 06:45 Recent Labs: Laboratory Last Values WBC 4.2 Th/cmm (4.8-10.8) L 07/14/16 16:00 RBC 2.86 Mil/cmm (4.30-5.70) L 07/14/16 16:00 Hgb 8.2 gm/dL (13.2-17.3) L 07/14/16 16:00 Hct 24.8 % (39.0-49.0) L 07/14/16 16:00 MCV 86.9 fl (80-99) 07/14/16 16:00 MCH 28.5 pg (26.0-30.0) 07/14/16 16:00 MCHC Differential 32.8 pg (28.0-36.0) 07/14/16 16:00 RDW 14.8 % (11.5-20.0) 07/14/16 16:00 Plt Count 131 Th/cmm (150-400) L D 07/14/16 16:00 MPV 9.3 fl 07/14/16 16:00 Neutrophils % 56.8 % (40.0-80.0) 07/07/16 06:00 Band Neutrophils % 0 % (0-10) 07/04/16 04:58 Lymphocytes % 18.4 % (20.0-50.0) L 07/07/16 06:00 Monocytes % 13.8 % (2.0-10.0) H 07/07/16 06:00 Eosinophils % 11.0 % (0.0-5.0) H 07/07/16 06:00 Basophils % 0.0 % (0.0-2.0) 07/07/16 06:00 Neutrophils (Manual) 66 % (40-80) 07/14/16 16:00 Lymphocytes 11 % (20-50) L 07/14/16 16:00 Monocytes 9 % (2-10) 07/14/16 16:00 Eosinophils 13 % (0-5) H 07/14/16 16:00 Basophils 2 % (0-3) 07/05/16 12:15 Myelocytes 1 % 07/14/16 16:00 Hypochromia 1+ 06/22/16 19:33 Platelet Estimate SLIGHT DECREASED (NORMAL) 07/14/16 16:00 Platelet Morphology NORMAL (NORMAL) 07/14/16 16:00 Polychromasia 1+ 07/03/16 05:30 Anisocytosis 1+ 07/05/16 12:15 Microcytosis 1+ 07/14/16 16:00 RBC Morph Micro Appear ABNORMAL (NORMAL) 07/14/16 16:00 PT 12.7 SECONDS (9.5-11.5) H 07/01/16 06:57 INR 1.26 (0.5-1.4) 07/01/16 06:57 PTT (Actin FS) 28.3 SECONDS (26.0-38.0) 06/28/16 04:38 Specimen Source art 06/22/16 20:03 Sample Site Right Radial 06/22/16 20:03 pH 7.49 (7.35-7.45) H 06/22/16 20:03 pCO2 34.0 mmHg (35.0-45.0) L 06/22/16 20:03 pO2 97.0 mmHg (80.0-100.0) 06/22/16 20:03 HCO3 25.9 mmol/L (20.0-26.0) 06/22/16 20:03 Base Excess 2.8 mmol/L (-3.0-3.0) 06/22/16 20:03 O2 Saturation 98.0 % (92.0-100.0) 06/22/16 20:03 Estuardo Test P 06/22/16 20:03 Vent Rate NA 06/22/16 20:03 Inspired O2 21 06/22/16 20:03 Tidal Volume NA 06/22/16 20:03 PEEP NA 06/22/16 20:03 Pressure (ins/psv/peep) NA 06/22/16 20:03 Critical Value RPINEIRA 06/22/16 20:03 Sodium 130 mEq/L (136-145) L 07/14/16 06:45 Potassium 4.3 mEq/L (3.5-5.1) 07/14/16 06:45 Chloride 96 mEq/L (98-107) L 07/14/16 06:45 Carbon Dioxide 26.1 mEq/L (21.0-31.0) 07/14/16 06:45 Anion Gap 12.2 (7.0-16.0) 07/14/16 06:45 BUN 44 mg/dL (7-25) H 07/14/16 06:45 Creatinine 4.3 mg/dL (0.7-1.3) H* 07/14/16 06:45 Est GFR ( Amer) 19.0 ml/min (>90) 07/14/16 06:45 Est GFR (Non-Af Amer) 15.7 ml/min 07/14/16 06:45 BUN/Creatinine Ratio 10.2 07/14/16 06:45 Glucose 99 mg/dL (70-105) 07/14/16 06:45 Calcium 9.1 mg/dL (8.6-10.3) 07/14/16 06:45 Phosphorus 3.5 mg/dL (2.5-5.0) 07/08/16 05:00 Magnesium 2.0 mg/dL (1.9-2.7) 07/07/16 06:00 Iron 42 ug/dL (38-169) 06/28/16 04:38 TIBC 269 ug/dL (250-450) 06/28/16 04:38 Iron Saturation 16 % (15-55) 06/28/16 04:38 Unsaturated IBC 227 ug/dL (111-343) 06/28/16 04:38 Ferritin 150 ng/mL (30-400) 06/26/16 08:30 Total Bilirubin 0.9 mg/dL (0.3-1.0) 07/14/16 06:45 Direct Bilirubin 0.70 mg/dL (0.0-0.2) H 06/28/16 04:38 GGTP 14 IU/L (0-65) 06/28/16 04:38 AST 27 U/L (13-39) 07/14/16 06:45 ALT 8 U/L (7-52) 07/14/16 06:45 Alkaline Phosphatase 42 U/L (34-104) 07/14/16 06:45 Ammonia 105 umol/L (16-53) H 07/02/16 06:40 Troponin I < 0.01 ng/mL (0.01-0.05) L 06/22/16 19:33 B-Natriuretic Peptide 668.0 pg/mL (5.0-100.0) H 06/22/16 19:33 Total Protein 7.7 gm/dL (6.0-8.3) 07/14/16 06:45 Albumin 2.8 gm/dL (4.2-5.5) L 07/14/16 06:45 Globulin 4.9 gm/dL 07/14/16 06:45 Albumin/Globulin Ratio 0.6 (1.0-1.8) L 07/14/16 06:45 Amylase 28 U/L (29-103) L 07/02/16 06:40 Lipase 31 U/L (11-82) 07/02/16 06:40 Urine Source CLEAN C 06/29/16 05:55 Urine Color YELLOW 06/29/16 05:55 Urine Clarity HAZY (CLEAR) 06/29/16 05:55 Urine pH 5.5 06/29/16 05:55 Ur Specific [place] 1.015 (1.005-1.030) 06/29/16 05:55 Urine Protein 30 mg/dL (NEGATIVE) H 06/29/16 05:55 Urine Glucose (UA) NEGATIVE mg/dL (NEGATIVE) 06/29/16 05:55 Urine Ketones NEGATIVE mg/dL (NEGATIVE) 06/29/16 05:55 Urine Blood NEGATIVE (NEGATIVE) 06/29/16 05:55 Urine Nitrate NEGATIVE (NEGATIVE) 06/29/16 05:55 Urine Bilirubin NEGATIVE (NEGATIVE) 06/29/16 05:55 Urine Urobilinogen 0.2 E.U./dL (0.2 - 1.0) 06/29/16 05:55 Ur Leukocyte Esterase TRACE (NEGATIVE) H 06/29/16 05:55 Urine RBC 0-2 /hpf (0-5) H 06/29/16 05:55 Urine WBC 6-10 /hpf (0-5) H 06/29/16 05:55 Ur Epithelial Cells FEW /lpf (FEW) 06/29/16 05:55 Urine Bacteria MANY /hpf (NONE SEEN) 06/29/16 05:55 Stool Occult Blood POSITIVE (NEGATIVE) 06/24/16 16:00 Random Vancomycin 13.4 ug/mL (5.0-40.0) 06/28/16 04:38 RPR NONREACTIVE (NONREACTIVE) 06/22/16 19:33 Hepatitis A IgM Ab Negative (Negative) 06/29/16 05:49 Hep Bs Antigen Negative (Negative) 06/29/16 05:49 Hep B Core IgM Ab Negative (Negative) 06/29/16 05:49 Hepatitis C Antibody >11.0 s/co ratio (0.0-0.9) H 06/29/16 05:49 Blood Type A POSITIVE 06/28/16 04:38 Antibody Screen NEGATIVE 06/28/16 04:38 Crossmatch See Detail 06/28/16 04:38 - Physical Exam Vitals and I&O: Vital Signs Temp 97.8 F 07/14/16 20:00 Pulse 86 07/14/16 20:00 Resp 18 07/14/16 20:00 BP 119/71 07/14/16 20:00 Pulse Ox 97 07/14/16 16:00 Intake & Output 07/14/16 07/14/16 07/15/16 06:59 18:59 06:59 Intake Total 480 Output Total 1500 3500 Balance -1020 -3500 Intake: Oral 480 Output: Urine 1500 Hemodialysis 3500 Other: # Bowel Movements 1 1 Active Medications: Current Medications Acetaminophen (Tylenol) 325 mg PO Q6HR PRN PRN Reason: Mild Pain or Fever >101 Stop: 08/22/16 20:30 Albuterol/Ipratropium (Duoneb Neb) 3 ml HHN Q2HR PRN PRN Reason: Shortness of Breath or Wheeze Stop: 09/08/16 09:51 Aspirin (Ecotrin) 325 mg PO DAILY [facility] Stop: 09/03/16 09:14 Last Admin: 07/14/16 08:40 Dose: 325 mg Calamine/Phenol (Calmoseptine) 1 appl TP QID PRN PRN Reason: Skin Irritation Stop: 09/08/16 18:33 Calamine/Phenol (Calmoseptine) 1 appl TP QID [facility] Stop: 09/08/16 20:59 Last Admin: 07/14/16 17:28 Dose: Not Given Carvedilol (Coreg) 12.5 mg PO BID [facility] Stop: 09/05/16 16:59 Last Admin: 07/14/16 17:27 Dose: Not Given Cholecalciferol (Vitamin D3) 2,000 iu PO DAILY [facility] Stop: 08/23/16 08:59 Last Admin: 07/14/16 09:20 Dose: Not Given Diltiazem HCl (Cardizem) 60 mg PO Q6HR [facility] Stop: 09/04/16 11:59 Last Admin: 07/14/16 12:33 Dose: Not Given Diphenhydramine HCl (Benadryl 50 Mg/Ml) 50 mg IM Q8HR PRN PRN Reason: Agitation Stop: 08/25/16 12:10 Docusate Sodium (Colace) 100 mg PO BID [facility] Stop: 08/22/16 16:59 Last Admin: 07/14/16 17:28 Dose: Not Given Haloperidol Lactate (Haldol) 5 mg IM Q8HR PRN PRN Reason: Agitation Stop: 08/25/16 12:10 Lactic Acid (Lac-Hydrin Cream) 1 appl TP BID [facility] Stop: 09/12/16 08:59 Last Admin: 07/14/16 17:27 Dose: Not Given Levothyroxine Sodium (Synthroid) 0.05 mg PO QDAC [facility] Stop: 08/23/16 07:29 Last Admin: 07/14/16 06:39 Dose: 0.05 mg Miscellaneous (Clinical Monitoring) 1 ea MC PRN PRN PRN Reason: RENAL DOSING Stop: 08/31/16 16:27 Morphine Sulfate (Morphine) 1 mg IV Q4H PRN PRN Reason: SEVERE PAIN Stop: 08/22/16 04:40 Last Admin: 07/14/16 22:10 Dose: 1 mg Ondansetron HCl (Zofran Odt) 4 mg PO Q6HR PRN PRN Reason: Nausea / Vomiting Stop: 08/22/16 20:30 Pantoprazole Sodium (Protonix) 40 mg PO DAILY [facility] Stop: 08/23/16 08:59 Last Admin: 07/14/16 08:40 Dose: 40 mg Quetiapine Fumarate (Seroquel) 100 mg PO TID [facility] PRN Reason: Protocol Stop: 08/26/16 08:59 Last Admin: 07/14/16 21:27 Dose: Not Given Vitamin B Complex/Vit C/Folic Acid (Vitamin B Complex W/Vitamin C) 1 tab PO DAILY [facility] Stop: 08/23/16 08:59 Last Admin: 07/14/16 09:20 Dose: Not Given General: no acute distress, other (obese) HEENT: atraumatic, normocephalic, PERRLA, EOMI Neck: supple, no thyromegaly Cardiovascular: S1S2, regular Lungs: clear to auscultation bilaterally, clear to percussion Abdomen: soft, no tender, no distended Extremities: no cyanosis, no clubbing, no edema Neurological: awake, alert, oriented, CN 2-12 intact - Procedures Procedures: Procedures Procedure Code Date ARTERY-VEIN NONAUTOGRAFT 19176 06/22/16 BYPASS L BRACH ART TO UP ARM VEIN W NONAUT SUB, OPEN [id number] 06/22/16 FLUOROSCOPY OF SUP VENA CAVA USING [facility] CONTRAST, GUIDANCE [id number] 06/22/16 INSERTION OF INFUSION DEV INTO SUP VENA CAVA, PERC APPROACH [id number] 06/22/16 PLACE CATHETER IN VEIN [address]79 06/22/16 Infectious Disease Assmt/Plan - Problem List Patient Problems: All Active Problems MEDICAL EVALUATION PER DR FRY (Acute) - Assessment Assessment: 1. Cellulitis of legs. improved. treated. 2. Lymphedema of legs. 3. CKD 5 on HD. 4. Morbid obesity. - Plan Plan: Continue same treatment. DC plan.
[2016-07-15] MEDS: Diltiazem 30 mg Tab PO SCH ×3 (06:06→13:21)
[2016-07-15] MEDS: Levothyroxine 0.05 Mg Tab PO SCH (06:51)
[2016-07-15] MEDS: Pantoprazole 40 mg EC Tab PO SCH (08:13)
[2016-07-15] MEDS: Aspirin 325 mg EC PO SCH (08:13)
[2016-07-15] MEDS: Vitamin B Complex w/Vitamin C Tab PO SCH (09:06)
--- NOTE | 2016-07-15 12:58 | General Progress Note ---
Subjective - Review of Systems Service Date: 07/15/16 Subjective: still w/ periods of agitation Objective - Results Result Diagrams: 07/14/16 16:00 07/14/16 06:45 Recent Labs: Laboratory Last Values WBC 4.2 Th/cmm (4.8-10.8) L 07/14/16 16:00 RBC 2.86 Mil/cmm (4.30-5.70) L 07/14/16 16:00 Hgb 8.2 gm/dL (13.2-17.3) L 07/14/16 16:00 Hct 24.8 % (39.0-49.0) L 07/14/16 16:00 MCV 86.9 fl (80-99) 07/14/16 16:00 MCH 28.5 pg (26.0-30.0) 07/14/16 16:00 MCHC Differential 32.8 pg (28.0-36.0) 07/14/16 16:00 RDW 14.8 % (11.5-20.0) 07/14/16 16:00 Plt Count 131 Th/cmm (150-400) L D 07/14/16 16:00 MPV 9.3 fl 07/14/16 16:00 Neutrophils % 56.8 % (40.0-80.0) 07/07/16 06:00 Band Neutrophils % 0 % (0-10) 07/04/16 04:58 Lymphocytes % 18.4 % (20.0-50.0) L 07/07/16 06:00 Monocytes % 13.8 % (2.0-10.0) H 07/07/16 06:00 Eosinophils % 11.0 % (0.0-5.0) H 07/07/16 06:00 Basophils % 0.0 % (0.0-2.0) 07/07/16 06:00 Neutrophils (Manual) 66 % (40-80) 07/14/16 16:00 Lymphocytes 11 % (20-50) L 07/14/16 16:00 Monocytes 9 % (2-10) 07/14/16 16:00 Eosinophils 13 % (0-5) H 07/14/16 16:00 Basophils 2 % (0-3) 07/05/16 12:15 Myelocytes 1 % 07/14/16 16:00 Hypochromia 1+ 06/22/16 19:33 Platelet Estimate SLIGHT DECREASED (NORMAL) 07/14/16 16:00 Platelet Morphology NORMAL (NORMAL) 07/14/16 16:00 Polychromasia 1+ 07/03/16 05:30 Anisocytosis 1+ 07/05/16 12:15 Microcytosis 1+ 07/14/16 16:00 RBC Morph Micro Appear ABNORMAL (NORMAL) 07/14/16 16:00 PT 12.7 SECONDS (9.5-11.5) H 07/01/16 06:57 INR 1.26 (0.5-1.4) 07/01/16 06:57 PTT (Actin FS) 28.3 SECONDS (26.0-38.0) 06/28/16 04:38 Specimen Source art 06/22/16 20:03 Sample Site Right Radial 06/22/16 20:03 pH 7.49 (7.35-7.45) H 06/22/16 20:03 pCO2 34.0 mmHg (35.0-45.0) L 06/22/16 20:03 pO2 97.0 mmHg (80.0-100.0) 06/22/16 20:03 HCO3 25.9 mmol/L (20.0-26.0) 06/22/16 20:03 Base Excess 2.8 mmol/L (-3.0-3.0) 06/22/16 20:03 O2 Saturation 98.0 % (92.0-100.0) 06/22/16 20:03 Estuardo Test P 06/22/16 20:03 Vent Rate NA 06/22/16 20:03 Inspired O2 21 06/22/16 20:03 Tidal Volume NA 06/22/16 20:03 PEEP NA 06/22/16 20:03 Pressure (ins/psv/peep) NA 06/22/16 20:03 Critical Value RPINEIRA 06/22/16 20:03 Sodium 130 mEq/L (136-145) L 07/14/16 06:45 Potassium 4.3 mEq/L (3.5-5.1) 07/14/16 06:45 Chloride 96 mEq/L (98-107) L 07/14/16 06:45 Carbon Dioxide 26.1 mEq/L (21.0-31.0) 07/14/16 06:45 Anion Gap 12.2 (7.0-16.0) 07/14/16 06:45 BUN 44 mg/dL (7-25) H 07/14/16 06:45 Creatinine 4.3 mg/dL (0.7-1.3) H* 07/14/16 06:45 Est GFR ( Amer) 19.0 ml/min (>90) 07/14/16 06:45 Est GFR (Non-Af Amer) 15.7 ml/min 07/14/16 06:45 BUN/Creatinine Ratio 10.2 07/14/16 06:45 Glucose 99 mg/dL (70-105) 07/14/16 06:45 Calcium 9.1 mg/dL (8.6-10.3) 07/14/16 06:45 Phosphorus 3.5 mg/dL (2.5-5.0) 07/08/16 05:00 Magnesium 2.0 mg/dL (1.9-2.7) 07/07/16 06:00 Iron 42 ug/dL (38-169) 06/28/16 04:38 TIBC 269 ug/dL (250-450) 06/28/16 04:38 Iron Saturation 16 % (15-55) 06/28/16 04:38 Unsaturated IBC 227 ug/dL (111-343) 06/28/16 04:38 Ferritin 150 ng/mL (30-400) 06/26/16 08:30 Total Bilirubin 0.9 mg/dL (0.3-1.0) 07/14/16 06:45 Direct Bilirubin 0.70 mg/dL (0.0-0.2) H 06/28/16 04:38 GGTP 14 IU/L (0-65) 06/28/16 04:38 AST 27 U/L (13-39) 07/14/16 06:45 ALT 8 U/L (7-52) 07/14/16 06:45 Alkaline Phosphatase 42 U/L (34-104) 07/14/16 06:45 Ammonia 105 umol/L (16-53) H 07/02/16 06:40 Troponin I < 0.01 ng/mL (0.01-0.05) L 06/22/16 19:33 B-Natriuretic Peptide 668.0 pg/mL (5.0-100.0) H 06/22/16 19:33 Total Protein 7.7 gm/dL (6.0-8.3) 07/14/16 06:45 Albumin 2.8 gm/dL (4.2-5.5) L 07/14/16 06:45 Globulin 4.9 gm/dL 07/14/16 06:45 Albumin/Globulin Ratio 0.6 (1.0-1.8) L 07/14/16 06:45 Amylase 28 U/L (29-103) L 07/02/16 06:40 Lipase 31 U/L (11-82) 07/02/16 06:40 Urine Source CLEAN C 06/29/16 05:55 Urine Color YELLOW 06/29/16 05:55 Urine Clarity HAZY (CLEAR) 06/29/16 05:55 Urine pH 5.5 06/29/16 05:55 Ur Specific [place] 1.015 (1.005-1.030) 06/29/16 05:55 Urine Protein 30 mg/dL (NEGATIVE) H 06/29/16 05:55 Urine Glucose (UA) NEGATIVE mg/dL (NEGATIVE) 06/29/16 05:55 Urine Ketones NEGATIVE mg/dL (NEGATIVE) 06/29/16 05:55 Urine Blood NEGATIVE (NEGATIVE) 06/29/16 05:55 Urine Nitrate NEGATIVE (NEGATIVE) 06/29/16 05:55 Urine Bilirubin NEGATIVE (NEGATIVE) 06/29/16 05:55 Urine Urobilinogen 0.2 E.U./dL (0.2 - 1.0) 06/29/16 05:55 Ur Leukocyte Esterase TRACE (NEGATIVE) H 06/29/16 05:55 Urine RBC 0-2 /hpf (0-5) H 06/29/16 05:55 Urine WBC 6-10 /hpf (0-5) H 06/29/16 05:55 Ur Epithelial Cells FEW /lpf (FEW) 06/29/16 05:55 Urine Bacteria MANY /hpf (NONE SEEN) 06/29/16 05:55 Stool Occult Blood POSITIVE (NEGATIVE) 06/24/16 16:00 Random Vancomycin 13.4 ug/mL (5.0-40.0) 06/28/16 04:38 RPR NONREACTIVE (NONREACTIVE) 06/22/16 19:33 Hepatitis A IgM Ab Negative (Negative) 06/29/16 05:49 Hep Bs Antigen Negative (Negative) 06/29/16 05:49 Hep B Core IgM Ab Negative (Negative) 06/29/16 05:49 Hepatitis C Antibody >11.0 s/co ratio (0.0-0.9) H 06/29/16 05:49 Blood Type A POSITIVE 06/28/16 04:38 Antibody Screen NEGATIVE 06/28/16 04:38 Crossmatch See Detail 06/28/16 04:38 - Physical Exam Vitals and I&O: Vital Signs Temp 97.8 F 07/15/16 08:00 Pulse 62 07/15/16 08:00 Resp 18 07/15/16 08:00 BP 103/67 07/15/16 08:00 Pulse Ox 97 07/15/16 08:00 Intake & Output 07/14/16 07/15/16 07/15/16 18:59 06:59 18:59 Intake Total 1200 360 Output Total 3500 Balance -3500 1200 360 Intake: Oral 1200 360 Output: Hemodialysis 3500 Other: # Voids 2 # Bowel Movements 1 0 Active Medications: Current Medications Acetaminophen (Tylenol) 325 mg PO Q6HR PRN PRN Reason: Mild Pain or Fever >101 Stop: 08/22/16 20:30 Albuterol/Ipratropium (Duoneb Neb) 3 ml HHN Q2HR PRN PRN Reason: Shortness of Breath or Wheeze Stop: 09/08/16 09:51 Aspirin (Ecotrin) 325 mg PO DAILY [facility] Stop: 09/03/16 09:14 Last Admin: 07/15/16 08:13 Dose: 325 mg Calamine/Phenol (Calmoseptine) 1 appl TP QID PRN PRN Reason: Skin Irritation Stop: 09/08/16 18:33 Calamine/Phenol (Calmoseptine) 1 appl TP QID [facility] Stop: 09/08/16 20:59 Last Admin: 07/14/16 21:00 Dose: Not Given Carvedilol (Coreg) 12.5 mg PO BID [facility] Stop: 09/05/16 16:59 Last Admin: 07/15/16 10:20 Dose: Not Given Cholecalciferol (Vitamin D3) 2,000 iu PO DAILY [facility] Stop: 08/23/16 08:59 Last Admin: 07/15/16 08:13 Dose: 2,000 iu Diltiazem HCl (Cardizem) 60 mg PO Q6HR [facility] Stop: 09/04/16 11:59 Last Admin: 07/15/16 06:06 Dose: 60 mg Diphenhydramine HCl (Benadryl 50 Mg/Ml) 50 mg IM Q8HR PRN PRN Reason: Agitation Stop: 08/25/16 12:10 Docusate Sodium (Colace) 100 mg PO BID [facility] Stop: 08/22/16 16:59 Last Admin: 07/15/16 08:13 Dose: 100 mg Haloperidol Lactate (Haldol) 5 mg IM Q8HR PRN PRN Reason: Agitation Stop: 08/25/16 12:10 Lactic Acid (Lac-Hydrin Cream) 1 appl TP BID [facility] Stop: 09/12/16 08:59 Last Admin: 07/14/16 17:27 Dose: Not Given Levothyroxine Sodium (Synthroid) 0.05 mg PO QDAC [facility] Stop: 08/23/16 07:29 Last Admin: 07/15/16 06:51 Dose: 0.05 mg Miscellaneous (Clinical Monitoring) 1 ea MC PRN PRN PRN Reason: RENAL DOSING Stop: 08/31/16 16:27 Morphine Sulfate (Morphine) 1 mg IV Q4H PRN PRN Reason: SEVERE PAIN Stop: 08/22/16 04:40 Last Admin: 07/14/16 22:10 Dose: 1 mg Ondansetron HCl (Zofran Odt) 4 mg PO Q6HR PRN PRN Reason: Nausea / Vomiting Stop: 08/22/16 20:30 Pantoprazole Sodium (Protonix) 40 mg PO DAILY [facility] Stop: 08/23/16 08:59 Last Admin: 07/15/16 08:13 Dose: 40 mg Quetiapine Fumarate (Seroquel) 100 mg PO TID [facility] PRN Reason: Protocol Stop: 08/26/16 08:59 Last Admin: 07/15/16 08:13 Dose: 100 mg Vitamin B Complex/Vit C/Folic Acid (Vitamin B Complex W/Vitamin C) 1 tab PO DAILY [facility] Stop: 08/23/16 08:59 Last Admin: 07/15/16 09:06 Dose: Not Given General: Alert, no Cooperative HEENT: Atraumatic, Mucous membr. moist/pink Neck: Supple, +2 carotid pulse wo bruit Cardiovascular: Regular rate, Normal S1, Normal S2 Lungs: Other (scattered rhonchi) Abdomen: Bowel sounds, Soft Extremities: Edema, Other (bipedal edema (+2)) Neurological: Sensation intact Skin: no Rash - Procedures Procedures: Procedures Procedure Code Date ARTERY-VEIN NONAUTOGRAFT 88673 06/22/16 BYPASS L BRACH ART TO UP ARM VEIN W NONAUT SUB, OPEN [id number] 06/22/16 FLUOROSCOPY OF SUP VENA CAVA USING [facility] CONTRAST, GUIDANCE [id number] 06/22/16 INSERTION OF INFUSION DEV INTO SUP VENA CAVA, PERC APPROACH [id number] 06/22/[address] PL[address] CATHETER IN VEIN [address]30 06/22/16 Assessment/Plan - Problem List Patient Problems: All Active Problems MEDICAL EVALUATION PER DR FRY (Acute) - Assessment Assessment: esrd on hd persistent cellulitis b/l lower ext acute on chronic anemia possible gi bleed ohs chronic a. fib hypothyroid anasarca functional quadriplegia chronic venous stasis dermatitis acute decomp psychosis hypokalemia, hypomagnesemia s/p left avg - Plan Plan: hgb/hct slightly improved to 8.2/24.8 agree w/ K replacement pt. was dialyzed yesterday & tolerated it well placement in progress continue psych meds
[2016-07-15] MEDS: Menthol/Zinc Oxide Oint 113gm Tube TP SCH ×3 (13:21→20:50)
[2016-07-15] MEDS: Ammonium Lactate Cream 140 gm Tube TP SCH ×2 (13:21→17:44)
--- NOTE | 2016-07-15 18:04 | Infectious Disease Prog Note ---
Infectious Disease Subjective - Review of Systems Service Date: 07/15/16 Subjective: No change. Infectious Disease Objective - Results Result Diagrams: 07/14/16 16:00 07/14/16 06:45 Recent Labs: Laboratory Last Values WBC 4.2 Th/cmm (4.8-10.8) L 07/14/16 16:00 RBC 2.86 Mil/cmm (4.30-5.70) L 07/14/16 16:00 Hgb 8.2 gm/dL (13.2-17.3) L 07/14/16 16:00 Hct 24.8 % (39.0-49.0) L 07/14/16 16:00 MCV 86.9 fl (80-99) 07/14/16 16:00 MCH 28.5 pg (26.0-30.0) 07/14/16 16:00 MCHC Differential 32.8 pg (28.0-36.0) 07/14/16 16:00 RDW 14.8 % (11.5-20.0) 07/14/16 16:00 Plt Count 131 Th/cmm (150-400) L D 07/14/16 16:00 MPV 9.3 fl 07/14/16 16:00 Neutrophils % 56.8 % (40.0-80.0) 07/07/16 06:00 Band Neutrophils % 0 % (0-10) 07/04/16 04:58 Lymphocytes % 18.4 % (20.0-50.0) L 07/07/16 06:00 Monocytes % 13.8 % (2.0-10.0) H 07/07/16 06:00 Eosinophils % 11.0 % (0.0-5.0) H 07/07/16 06:00 Basophils % 0.0 % (0.0-2.0) 07/07/16 06:00 Neutrophils (Manual) 66 % (40-80) 07/14/16 16:00 Lymphocytes 11 % (20-50) L 07/14/16 16:00 Monocytes 9 % (2-10) 07/14/16 16:00 Eosinophils 13 % (0-5) H 07/14/16 16:00 Basophils 2 % (0-3) 07/05/16 12:15 Myelocytes 1 % 07/14/16 16:00 Hypochromia 1+ 06/22/16 19:33 Platelet Estimate SLIGHT DECREASED (NORMAL) 07/14/16 16:00 Platelet Morphology NORMAL (NORMAL) 07/14/16 16:00 Polychromasia 1+ 07/03/16 05:30 Anisocytosis 1+ 07/05/16 12:15 Microcytosis 1+ 07/14/16 16:00 RBC Morph Micro Appear ABNORMAL (NORMAL) 07/14/16 16:00 PT 12.7 SECONDS (9.5-11.5) H 07/01/16 06:57 INR 1.26 (0.5-1.4) 07/01/16 06:57 PTT (Actin FS) 28.3 SECONDS (26.0-38.0) 06/28/16 04:38 Specimen Source art 06/22/16 20:03 Sample Site Right Radial 06/22/16 20:03 pH 7.49 (7.35-7.45) H 06/22/16 20:03 pCO2 34.0 mmHg (35.0-45.0) L 06/22/16 20:03 pO2 97.0 mmHg (80.0-100.0) 06/22/16 20:03 HCO3 25.9 mmol/L (20.0-26.0) 06/22/16 20:03 Base Excess 2.8 mmol/L (-3.0-3.0) 06/22/16 20:03 O2 Saturation 98.0 % (92.0-100.0) 06/22/16 20:03 Estuardo Test P 06/22/16 20:03 Vent Rate NA 06/22/16 20:03 Inspired O2 21 06/22/16 20:03 Tidal Volume NA 06/22/16 20:03 PEEP NA 06/22/16 20:03 Pressure (ins/psv/peep) NA 06/22/16 20:03 Critical Value RPINEIRA 06/22/16 20:03 Sodium 130 mEq/L (136-145) L 07/14/16 06:45 Potassium 4.3 mEq/L (3.5-5.1) 07/14/16 06:45 Chloride 96 mEq/L (98-107) L 07/14/16 06:45 Carbon Dioxide 26.1 mEq/L (21.0-31.0) 07/14/16 06:45 Anion Gap 12.2 (7.0-16.0) 07/14/16 06:45 BUN 44 mg/dL (7-25) H 07/14/16 06:45 Creatinine 4.3 mg/dL (0.7-1.3) H* 07/14/16 06:45 Est GFR ( Amer) 19.0 ml/min (>90) 07/14/16 06:45 Est GFR (Non-Af Amer) 15.7 ml/min 07/14/16 06:45 BUN/Creatinine Ratio 10.2 07/14/16 06:45 Glucose 99 mg/dL (70-105) 07/14/16 06:45 Calcium 9.1 mg/dL (8.6-10.3) 07/14/16 06:45 Phosphorus 3.5 mg/dL (2.5-5.0) 07/08/16 05:00 Magnesium 2.0 mg/dL (1.9-2.7) 07/07/16 06:00 Iron 42 ug/dL (38-169) 06/28/16 04:38 TIBC 269 ug/dL (250-450) 06/28/16 04:38 Iron Saturation 16 % (15-55) 06/28/16 04:38 Unsaturated IBC 227 ug/dL (111-343) 06/28/16 04:38 Ferritin 150 ng/mL (30-400) 06/26/16 08:30 Total Bilirubin 0.9 mg/dL (0.3-1.0) 07/14/16 06:45 Direct Bilirubin 0.70 mg/dL (0.0-0.2) H 06/28/16 04:38 GGTP 14 IU/L (0-65) 06/28/16 04:38 AST 27 U/L (13-39) 07/14/16 06:45 ALT 8 U/L (7-52) 07/14/16 06:45 Alkaline Phosphatase 42 U/L (34-104) 07/14/16 06:45 Ammonia 105 umol/L (16-53) H 07/02/16 06:40 Troponin I < 0.01 ng/mL (0.01-0.05) L 06/22/16 19:33 B-Natriuretic Peptide 668.0 pg/mL (5.0-100.0) H 06/22/16 19:33 Total Protein 7.7 gm/dL (6.0-8.3) 07/14/16 06:45 Albumin 2.8 gm/dL (4.2-5.5) L 07/14/16 06:45 Globulin 4.9 gm/dL 07/14/16 06:45 Albumin/Globulin Ratio 0.6 (1.0-1.8) L 07/14/16 06:45 Amylase 28 U/L (29-103) L 07/02/16 06:40 Lipase 31 U/L (11-82) 07/02/16 06:40 Urine Source CLEAN C 06/29/16 05:55 Urine Color YELLOW 06/29/16 05:55 Urine Clarity HAZY (CLEAR) 06/29/16 05:55 Urine pH 5.5 06/29/16 05:55 Ur Specific [place] 1.015 (1.005-1.030) 06/29/16 05:55 Urine Protein 30 mg/dL (NEGATIVE) H 06/29/16 05:55 Urine Glucose (UA) NEGATIVE mg/dL (NEGATIVE) 06/29/16 05:55 Urine Ketones NEGATIVE mg/dL (NEGATIVE) 06/29/16 05:55 Urine Blood NEGATIVE (NEGATIVE) 06/29/16 05:55 Urine Nitrate NEGATIVE (NEGATIVE) 06/29/16 05:55 Urine Bilirubin NEGATIVE (NEGATIVE) 06/29/16 05:55 Urine Urobilinogen 0.2 E.U./dL (0.2 - 1.0) 06/29/16 05:55 Ur Leukocyte Esterase TRACE (NEGATIVE) H 06/29/16 05:55 Urine RBC 0-2 /hpf (0-5) H 06/29/16 05:55 Urine WBC 6-10 /hpf (0-5) H 06/29/16 05:55 Ur Epithelial Cells FEW /lpf (FEW) 06/29/16 05:55 Urine Bacteria MANY /hpf (NONE SEEN) 06/29/16 05:55 Stool Occult Blood POSITIVE (NEGATIVE) 06/24/16 16:00 Random Vancomycin 13.4 ug/mL (5.0-40.0) 06/28/16 04:38 RPR NONREACTIVE (NONREACTIVE) 06/22/16 19:33 Hepatitis A IgM Ab Negative (Negative) 06/29/16 05:49 Hep Bs Antigen Negative (Negative) 06/29/16 05:49 Hep B Core IgM Ab Negative (Negative) 06/29/16 05:49 Hepatitis C Antibody >11.0 s/co ratio (0.0-0.9) H 06/29/16 05:49 Blood Type A POSITIVE 06/28/16 04:38 Antibody Screen NEGATIVE 06/28/16 04:38 Crossmatch See Detail 06/28/16 04:38 - Physical Exam Vitals and I&O: Vital Signs Temp 97.8 F 07/15/16 08:00 Pulse 62 07/15/16 08:00 Resp 18 07/15/16 08:00 BP 103/67 07/15/16 08:00 Pulse Ox 97 07/15/16 08:00 Intake & Output 07/14/16 07/15/16 07/15/16 18:59 06:59 18:59 Intake Total 1200 360 Output Total 3500 Balance -3500 1200 360 Intake: Oral 1200 360 Output: Hemodialysis 3500 Other: # Voids 2 # Bowel Movements 1 0 Active Medications: Current Medications Acetaminophen (Tylenol) 325 mg PO Q6HR PRN PRN Reason: Mild Pain or Fever >101 Stop: 08/22/16 20:30 Albuterol/Ipratropium (Duoneb Neb) 3 ml HHN Q2HR PRN PRN Reason: Shortness of Breath or Wheeze Stop: 09/08/16 09:51 Aspirin (Ecotrin) 325 mg PO DAILY [facility] Stop: 09/03/16 09:14 Last Admin: 07/15/16 08:13 Dose: 325 mg Calamine/Phenol (Calmoseptine) 1 appl TP QID PRN PRN Reason: Skin Irritation Stop: 09/08/16 18:33 Calamine/Phenol (Calmoseptine) 1 appl TP QID [facility] Stop: 09/08/16 20:59 Last Admin: 07/15/16 17:44 Dose: Not Given Carvedilol (Coreg) 12.5 mg PO BID [facility] Stop: 09/05/16 16:59 Last Admin: 07/15/16 17:44 Dose: Not Given Cholecalciferol (Vitamin D3) 2,000 iu PO DAILY [facility] Stop: 08/23/16 08:59 Last Admin: 07/15/16 08:13 Dose: 2,000 iu Diltiazem HCl (Cardizem) 60 mg PO Q6HR [facility] Stop: 09/04/16 11:59 Last Admin: 07/15/16 13:21 Dose: Not Given Diphenhydramine HCl (Benadryl 50 Mg/Ml) 50 mg IM Q8HR PRN PRN Reason: Agitation Stop: 08/25/16 12:10 Docusate Sodium (Colace) 100 mg PO BID [facility] Stop: 08/22/16 16:59 Last Admin: 07/15/16 17:44 Dose: Not Given Haloperidol Lactate (Haldol) 5 mg IM Q8HR PRN PRN Reason: Agitation Stop: 08/25/16 12:10 Lactic Acid (Lac-Hydrin Cream) 1 appl TP BID [facility] Stop: 09/12/16 08:59 Last Admin: 07/15/16 17:44 Dose: Not Given Levothyroxine Sodium (Synthroid) 0.05 mg PO QDAC [facility] Stop: 08/23/16 07:29 Last Admin: 07/15/16 06:51 Dose: 0.05 mg Miscellaneous (Clinical Monitoring) 1 ea MC PRN PRN PRN Reason: RENAL DOSING Stop: 08/31/16 16:27 Ondansetron HCl (Zofran Odt) 4 mg PO Q6HR PRN PRN Reason: Nausea / Vomiting Stop: 08/22/16 20:30 Pantoprazole Sodium (Protonix) 40 mg PO DAILY [facility] Stop: 08/23/16 08:59 Last Admin: 07/15/16 08:13 Dose: 40 mg Quetiapine Fumarate (Seroquel) 100 mg PO TID [facility] PRN Reason: Protocol Stop: 08/26/16 08:59 Last Admin: 07/15/16 16:49 Dose: Not Given Vitamin B Complex/Vit C/Folic Acid (Vitamin B Complex W/Vitamin C) 1 tab PO DAILY [facility] Stop: 08/23/16 08:59 Last Admin: 07/15/16 09:06 Dose: Not Given General: no acute distress, other (morbidly obese) HEENT: atraumatic, normocephalic, PERRLA Neck: supple, no thyromegaly, no lymphadenopathy Cardiovascular: S1S2, regular Lungs: clear to auscultation bilaterally, clear to percussion Abdomen: soft, bowel sounds, obese, no tender, no distended Extremities: no cyanosis, no clubbing, no edema Neurological: awake, alert, oriented, CN 2-12 intact - Procedures Procedures: Procedures Procedure Code Date ARTERY-VEIN NONAUTOGRAFT 03688 06/22/16 BYPASS L BRACH ART TO UP ARM VEIN W NONAUT SUB, OPEN [id number] 06/22/16 FLUOROSCOPY OF SUP VENA CAVA USING [facility] CONTRAST, GUIDANCE [id number] 06/22/16 INSERTION OF INFUSION DEV INTO SUP VENA CAVA, PERC APPROACH [id number] 06/22/16 PLACE CATHETER IN VEIN [address]59[address] 06/22/16 Infectious Disease Assmt/Plan - Problem List Patient Problems: All Active Problems MEDICAL EVALUATION PER DR FRY (Acute) - Assessment Assessment: 1. Cellulitis of legs. improved. treated. 2. Lymphedema of legs. 3. CKD 5 on HD. 4. Morbid obesity. - Plan Plan: Continue same treatment. DC plan.
[2016-07-16] MEDS: Diltiazem 30 mg Tab PO SCH ×5 (00:08→17:50)
[2016-07-16] MEDS: Levothyroxine 0.05 Mg Tab PO SCH (06:30)
[2016-07-16] MEDS: Pantoprazole 40 mg EC Tab PO SCH (08:17)
[2016-07-16] MEDS: Vitamin B Complex w/Vitamin C Tab PO SCH (08:17)
[2016-07-16] MEDS: Aspirin 325 mg EC PO SCH (08:17)
[2016-07-16] MEDS: Menthol/Zinc Oxide Oint 113gm Tube TP SCH ×4 (08:18→21:04)
[2016-07-16] MEDS: Ammonium Lactate Cream 140 gm Tube TP SCH ×2 (08:18→17:51)
--- NOTE | 2016-07-16 14:39 | General Progress Note ---
Subjective - Review of Systems Service Date: 07/16/16 Subjective: still w/ periods of agitation, took some of meds Objective - Results Result Diagrams: 07/14/16 16:00 07/14/16 06:45 Recent Labs: Laboratory Last Values WBC 4.2 Th/cmm (4.8-10.8) L 07/14/16 16:00 RBC 2.86 Mil/cmm (4.30-5.70) L 07/14/16 16:00 Hgb 8.2 gm/dL (13.2-17.3) L 07/14/16 16:00 Hct 24.8 % (39.0-49.0) L 07/14/16 16:00 MCV 86.9 fl (80-99) 07/14/16 16:00 MCH 28.5 pg (26.0-30.0) 07/14/16 16:00 MCHC Differential 32.8 pg (28.0-36.0) 07/14/16 16:00 RDW 14.8 % (11.5-20.0) 07/14/16 16:00 Plt Count 131 Th/cmm (150-400) L D 07/14/16 16:00 MPV 9.3 fl 07/14/16 16:00 Neutrophils % 56.8 % (40.0-80.0) 07/07/16 06:00 Band Neutrophils % 0 % (0-10) 07/04/16 04:58 Lymphocytes % 18.4 % (20.0-50.0) L 07/07/16 06:00 Monocytes % 13.8 % (2.0-10.0) H 07/07/16 06:00 Eosinophils % 11.0 % (0.0-5.0) H 07/07/16 06:00 Basophils % 0.0 % (0.0-2.0) 07/07/16 06:00 Neutrophils (Manual) 66 % (40-80) 07/14/16 16:00 Lymphocytes 11 % (20-50) L 07/14/16 16:00 Monocytes 9 % (2-10) 07/14/16 16:00 Eosinophils 13 % (0-5) H 07/14/16 16:00 Basophils 2 % (0-3) 07/05/16 12:15 Myelocytes 1 % 07/14/16 16:00 Hypochromia 1+ 06/22/16 19:33 Platelet Estimate SLIGHT DECREASED (NORMAL) 07/14/16 16:00 Platelet Morphology NORMAL (NORMAL) 07/14/16 16:00 Polychromasia 1+ 07/03/16 05:30 Anisocytosis 1+ 07/05/16 12:15 Microcytosis 1+ 07/14/16 16:00 RBC Morph Micro Appear ABNORMAL (NORMAL) 07/14/16 16:00 PT 12.7 SECONDS (9.5-11.5) H 07/01/16 06:57 INR 1.26 (0.5-1.4) 07/01/16 06:57 PTT (Actin FS) 28.3 SECONDS (26.0-38.0) 06/28/16 04:38 Specimen Source art 06/22/16 20:03 Sample Site Right Radial 06/22/16 20:03 pH 7.49 (7.35-7.45) H 06/22/16 20:03 pCO2 34.0 mmHg (35.0-45.0) L 06/22/16 20:03 pO2 97.0 mmHg (80.0-100.0) 06/22/16 20:03 HCO3 25.9 mmol/L (20.0-26.0) 06/22/16 20:03 Base Excess 2.8 mmol/L (-3.0-3.0) 06/22/16 20:03 O2 Saturation 98.0 % (92.0-100.0) 06/22/16 20:03 Estuardo Test P 06/22/16 20:03 Vent Rate NA 06/22/16 20:03 Inspired O2 21 06/22/16 20:03 Tidal Volume NA 06/22/16 20:03 PEEP NA 06/22/16 20:03 Pressure (ins/psv/peep) NA 06/22/16 20:03 Critical Value RPINEIRA 06/22/16 20:03 Sodium 130 mEq/L (136-145) L 07/14/16 06:45 Potassium 4.3 mEq/L (3.5-5.1) 07/14/16 06:45 Chloride 96 mEq/L (98-107) L 07/14/16 06:45 Carbon Dioxide 26.1 mEq/L (21.0-31.0) 07/14/16 06:45 Anion Gap 12.2 (7.0-16.0) 07/14/16 06:45 BUN 44 mg/dL (7-25) H 07/14/16 06:45 Creatinine 4.3 mg/dL (0.7-1.3) H* 07/14/16 06:45 Est GFR ( Amer) 19.0 ml/min (>90) 07/14/16 06:45 Est GFR (Non-Af Amer) 15.7 ml/min 07/14/16 06:45 BUN/Creatinine Ratio 10.2 07/14/16 06:45 Glucose 99 mg/dL (70-105) 07/14/16 06:45 Calcium 9.1 mg/dL (8.6-10.3) 07/14/16 06:45 Phosphorus 3.5 mg/dL (2.5-5.0) 07/08/16 05:00 Magnesium 2.0 mg/dL (1.9-2.7) 07/07/16 06:00 Iron 42 ug/dL (38-169) 06/28/16 04:38 TIBC 269 ug/dL (250-450) 06/28/16 04:38 Iron Saturation 16 % (15-55) 06/28/16 04:38 Unsaturated IBC 227 ug/dL (111-343) 06/28/16 04:38 Ferritin 150 ng/mL (30-400) 06/26/16 08:30 Total Bilirubin 0.9 mg/dL (0.3-1.0) 07/14/16 06:45 Direct Bilirubin 0.70 mg/dL (0.0-0.2) H 06/28/16 04:38 GGTP 14 IU/L (0-65) 06/28/16 04:38 AST 27 U/L (13-39) 07/14/16 06:45 ALT 8 U/L (7-52) 07/14/16 06:45 Alkaline Phosphatase 42 U/L (34-104) 07/14/16 06:45 Ammonia 105 umol/L (16-53) H 07/02/16 06:40 Troponin I < 0.01 ng/mL (0.01-0.05) L 06/22/16 19:33 B-Natriuretic Peptide 668.0 pg/mL (5.0-100.0) H 06/22/16 19:33 Total Protein 7.7 gm/dL (6.0-8.3) 07/14/16 06:45 Albumin 2.8 gm/dL (4.2-5.5) L 07/14/16 06:45 Globulin 4.9 gm/dL 07/14/16 06:45 Albumin/Globulin Ratio 0.6 (1.0-1.8) L 07/14/16 06:45 Amylase 28 U/L (29-103) L 07/02/16 06:40 Lipase 31 U/L (11-82) 07/02/16 06:40 Urine Source CLEAN C 06/29/16 05:55 Urine Color YELLOW 06/29/16 05:55 Urine Clarity HAZY (CLEAR) 06/29/16 05:55 Urine pH 5.5 06/29/16 05:55 Ur Specific [place] 1.015 (1.005-1.030) 06/29/16 05:55 Urine Protein 30 mg/dL (NEGATIVE) H 06/29/16 05:55 Urine Glucose (UA) NEGATIVE mg/dL (NEGATIVE) 06/29/16 05:55 Urine Ketones NEGATIVE mg/dL (NEGATIVE) 06/29/16 05:55 Urine Blood NEGATIVE (NEGATIVE) 06/29/16 05:55 Urine Nitrate NEGATIVE (NEGATIVE) 06/29/16 05:55 Urine Bilirubin NEGATIVE (NEGATIVE) 06/29/16 05:55 Urine Urobilinogen 0.2 E.U./dL (0.2 - 1.0) 06/29/16 05:55 Ur Leukocyte Esterase TRACE (NEGATIVE) H 06/29/16 05:55 Urine RBC 0-2 /hpf (0-5) H 06/29/16 05:55 Urine WBC 6-10 /hpf (0-5) H 06/29/16 05:55 Ur Epithelial Cells FEW /lpf (FEW) 06/29/16 05:55 Urine Bacteria MANY /hpf (NONE SEEN) 06/29/16 05:55 Stool Occult Blood POSITIVE (NEGATIVE) 06/24/16 16:00 Random Vancomycin 13.4 ug/mL (5.0-40.0) 06/28/16 04:38 RPR NONREACTIVE (NONREACTIVE) 06/22/16 19:33 Hepatitis A IgM Ab Negative (Negative) 06/29/16 05:49 Hep Bs Antigen Negative (Negative) 06/29/16 05:49 Hep B Core IgM Ab Negative (Negative) 06/29/16 05:49 Hepatitis C Antibody >11.0 s/co ratio (0.0-0.9) H 06/29/16 05:49 Blood Type A POSITIVE 06/28/16 04:38 Antibody Screen NEGATIVE 06/28/16 04:38 Crossmatch See Detail 06/28/16 04:38 - Physical Exam Vitals and I&O: Vital Signs Temp 97.4 F 07/16/16 08:00 Pulse 109 07/16/16 08:17 Resp 18 07/16/16 08:00 BP 108/65 07/16/16 08:17 Pulse Ox 96 07/16/16 04:00 Intake & Output 07/15/16 07/16/16 07/16/16 18:59 06:59 18:59 Intake Total 360 600 Balance 360 600 Intake: Oral 360 600 Other: # Voids 3 Active Medications: Current Medications Acetaminophen (Tylenol) 325 mg PO Q6HR PRN PRN Reason: Mild Pain or Fever >101 Stop: 08/22/16 20:30 Albuterol/Ipratropium (Duoneb Neb) 3 ml HHN Q2HR PRN PRN Reason: Shortness of Breath or Wheeze Stop: 09/08/16 09:51 Aspirin (Ecotrin) 325 mg PO DAILY [facility] Stop: 09/03/16 09:14 Last Admin: 07/16/16 08:17 Dose: 325 mg Calamine/Phenol (Calmoseptine) 1 appl TP QID PRN PRN Reason: Skin Irritation Stop: 09/08/16 18:33 Calamine/Phenol (Calmoseptine) 1 appl TP QID [facility] Stop: 09/08/16 20:59 Last Admin: 07/16/16 08:18 Dose: 1 appl Carvedilol (Coreg) 12.5 mg PO BID [facility] Stop: 09/05/16 16:59 Last Admin: 07/16/16 08:17 Dose: 12.5 mg Cholecalciferol (Vitamin D3) 2,000 iu PO DAILY [facility] Stop: 08/23/16 08:59 Last Admin: 07/16/16 08:17 Dose: 2,000 iu Diltiazem HCl (Cardizem) 60 mg PO Q6HR [facility] Stop: 09/04/16 11:59 Last Admin: 07/16/16 06:23 Dose: 60 mg Diphenhydramine HCl (Benadryl 50 Mg/Ml) 50 mg IM Q8HR PRN PRN Reason: Agitation Stop: 08/25/16 12:10 Docusate Sodium (Colace) 100 mg PO BID [facility] Stop: 08/22/16 16:59 Last Admin: 07/16/16 08:17 Dose: 100 mg Haloperidol Lactate (Haldol) 5 mg IM Q8HR PRN PRN Reason: Agitation Stop: 08/25/16 12:10 Lactic Acid (Lac-Hydrin Cream) 1 appl TP BID [facility] Stop: 09/12/16 08:59 Last Admin: 07/16/16 08:18 Dose: 1 appl Levothyroxine Sodium (Synthroid) 0.05 mg PO QDAC [facility] Stop: 08/23/16 07:29 Last Admin: 07/16/16 06:30 Dose: 0.05 mg Miscellaneous (Clinical Monitoring) 1 ea MC PRN PRN PRN Reason: RENAL DOSING Stop: 08/31/16 16:27 Ondansetron HCl (Zofran Odt) 4 mg PO Q6HR PRN PRN Reason: Nausea / Vomiting Stop: 08/22/16 20:30 Pantoprazole Sodium (Protonix) 40 mg PO DAILY [facility] Stop: 08/23/16 08:59 Last Admin: 07/16/16 08:17 Dose: 40 mg Quetiapine Fumarate (Seroquel) 100 mg PO TID [facility] PRN Reason: Protocol Stop: 08/26/16 08:59 Last Admin: 07/16/16 08:19 Dose: Not Given Vitamin B Complex/Vit C/Folic Acid (Vitamin B Complex W/Vitamin C) 1 tab PO DAILY [facility] Stop: 08/23/16 08:59 Last Admin: 07/16/16 08:17 Dose: 1 tab General: Alert, no Cooperative HEENT: Atraumatic, Mucous membr. moist/pink Neck: Supple, +2 carotid pulse wo bruit Cardiovascular: Regular rate, Normal S1, Normal S2 Lungs: Other (few rhonchi) Abdomen: Bowel sounds, Soft Extremities: Edema, Other (bipedal edema (+2)) Neurological: Sensation intact Skin: no Rash - Procedures Procedures: Procedures Procedure Code Date ARTERY-VEIN NONAUTOGRAFT 43319 06/22/16 BYPASS L BRACH ART TO UP ARM VEIN W NONAUT SUB, OPEN [id number] 06/22/16 FLUOROSCOPY OF SUP VENA CAVA USING [facility] CONTRAST, GUIDANCE [id number] 06/22/16 INSERTION OF INFUSION DEV INTO SUP VENA CAVA, PERC APPROACH [id number] 06/22/[address] PL[address] CATHETER IN VEIN [address]74 06/22/16 Assessment/Plan - Problem List Patient Problems: All Active Problems MEDICAL EVALUATION PER DR FRY (Acute) - Assessment Assessment: esrd on hd persistent cellulitis b/l lower ext acute on chronic anemia possible gi bleed ohs chronic a. fib hypothyroid anasarca functional quadriplegia chronic venous stasis dermatitis acute decomp psychosis hypokalemia, hypomagnesemia s/p left avg - Plan Plan: hgb/hct slightly improved to 8.2/24.8 agree w/ K replacement schedule for HD in am placement in progress continue psych meds
--- NOTE | 2016-07-16 20:59 | Progress Notes ---
SUBJECTIVE: The patient was seen in his bed lying down and still complaining of being upset regarding with his placement issues. Advised the patient that a followup with the social work administrator or with his comp field case manager. OBJECTIVE: HEENT: Normocephalic, atraumatic. Bilateral eyes bilateral pupils are equally round and reactive. CARDIOVASCULAR: S1 and S2 heard without murmurs. LUNGS: Mild end inspiratory wheezing noted. GASTROINTESTINAL: Soft and nontender. Positive bowel sounds. The patient is obese. EXTREMITIES: Bilateral lower extremity edema noted. ASSESSMENT: 1. End-stage renal disease, hemodialysis patient. 2. Chronic anemia. 3. Chronic atrial fibrillation. 4. Cellulitis of the bilateral lower extremities. 5. Lymphedema, bilateral lower extremities. 6. Hypothyroidism. 7. Obesity. 8. Schizophrenia. 9. Quadriplegia. PLAN: We will follow up with social work administrator and comp field case manager regarding placement of this patient. JOB# [id number]
[2016-07-17] MEDS: Diltiazem 30 mg Tab PO SCH ×4 (06:49→18:06)
[2016-07-17] MEDS: Levothyroxine 0.05 Mg Tab PO SCH (08:00)
[2016-07-17] MEDS: Menthol/Zinc Oxide Oint 113gm Tube TP SCH ×4 (10:30→20:34)
[2016-07-17] MEDS: Ammonium Lactate Cream 140 gm Tube TP SCH ×2 (10:30→18:06)
[2016-07-17] MEDS: Aspirin 325 mg EC PO SCH (10:30)
[2016-07-17] MEDS: Vitamin B Complex w/Vitamin C Tab PO SCH (10:30)
[2016-07-17] MEDS: Pantoprazole 40 mg EC Tab PO SCH (10:30)
--- NOTE | 2016-07-17 11:52 | Infectious Disease Prog Note ---
Infectious Disease Subjective - Review of Systems Service Date: 07/17/16 Subjective: No change. Infectious Disease Objective - Results Result Diagrams: 07/14/16 16:00 07/14/16 06:45 Recent Labs: Laboratory Last Values WBC 4.2 Th/cmm (4.8-10.8) L 07/14/16 16:00 RBC 2.86 Mil/cmm (4.30-5.70) L 07/14/16 16:00 Hgb 8.2 gm/dL (13.2-17.3) L 07/14/16 16:00 Hct 24.8 % (39.0-49.0) L 07/14/16 16:00 MCV 86.9 fl (80-99) 07/14/16 16:00 MCH 28.5 pg (26.0-30.0) 07/14/16 16:00 MCHC Differential 32.8 pg (28.0-36.0) 07/14/16 16:00 RDW 14.8 % (11.5-20.0) 07/14/16 16:00 Plt Count 131 Th/cmm (150-400) L D 07/14/16 16:00 MPV 9.3 fl 07/14/16 16:00 Neutrophils % 56.8 % (40.0-80.0) 07/07/16 06:00 Band Neutrophils % 0 % (0-10) 07/04/16 04:58 Lymphocytes % 18.4 % (20.0-50.0) L 07/07/16 06:00 Monocytes % 13.8 % (2.0-10.0) H 07/07/16 06:00 Eosinophils % 11.0 % (0.0-5.0) H 07/07/16 06:00 Basophils % 0.0 % (0.0-2.0) 07/07/16 06:00 Neutrophils (Manual) 66 % (40-80) 07/14/16 16:00 Lymphocytes 11 % (20-50) L 07/14/16 16:00 Monocytes 9 % (2-10) 07/14/16 16:00 Eosinophils 13 % (0-5) H 07/14/16 16:00 Basophils 2 % (0-3) 07/05/16 12:15 Myelocytes 1 % 07/14/16 16:00 Hypochromia 1+ 06/22/16 19:33 Platelet Estimate SLIGHT DECREASED (NORMAL) 07/14/16 16:00 Platelet Morphology NORMAL (NORMAL) 07/14/16 16:00 Polychromasia 1+ 07/03/16 05:30 Anisocytosis 1+ 07/05/16 12:15 Microcytosis 1+ 07/14/16 16:00 RBC Morph Micro Appear ABNORMAL (NORMAL) 07/14/16 16:00 PT 12.7 SECONDS (9.5-11.5) H 07/01/16 06:57 INR 1.26 (0.5-1.4) 07/01/16 06:57 PTT (Actin FS) 28.3 SECONDS (26.0-38.0) 06/28/16 04:38 Specimen Source art 06/22/16 20:03 Sample Site Right Radial 06/22/16 20:03 pH 7.49 (7.35-7.45) H 06/22/16 20:03 pCO2 34.0 mmHg (35.0-45.0) L 06/22/16 20:03 pO2 97.0 mmHg (80.0-100.0) 06/22/16 20:03 HCO3 25.9 mmol/L (20.0-26.0) 06/22/16 20:03 Base Excess 2.8 mmol/L (-3.0-3.0) 06/22/16 20:03 O2 Saturation 98.0 % (92.0-100.0) 06/22/16 20:03 Estuardo Test P 06/22/16 20:03 Vent Rate NA 06/22/16 20:03 Inspired O2 21 06/22/16 20:03 Tidal Volume NA 06/22/16 20:03 PEEP NA 06/22/16 20:03 Pressure (ins/psv/peep) NA 06/22/16 20:03 Critical Value RPINEIRA 06/22/16 20:03 Sodium 130 mEq/L (136-145) L 07/14/16 06:45 Potassium 4.3 mEq/L (3.5-5.1) 07/14/16 06:45 Chloride 96 mEq/L (98-107) L 07/14/16 06:45 Carbon Dioxide 26.1 mEq/L (21.0-31.0) 07/14/16 06:45 Anion Gap 12.2 (7.0-16.0) 07/14/16 06:45 BUN 44 mg/dL (7-25) H 07/14/16 06:45 Creatinine 4.3 mg/dL (0.7-1.3) H* 07/14/16 06:45 Est GFR ( Amer) 19.0 ml/min (>90) 07/14/16 06:45 Est GFR (Non-Af Amer) 15.7 ml/min 07/14/16 06:45 BUN/Creatinine Ratio 10.2 07/14/16 06:45 Glucose 99 mg/dL (70-105) 07/14/16 06:45 Calcium 9.1 mg/dL (8.6-10.3) 07/14/16 06:45 Phosphorus 3.5 mg/dL (2.5-5.0) 07/08/16 05:00 Magnesium 2.0 mg/dL (1.9-2.7) 07/07/16 06:00 Iron 42 ug/dL (38-169) 06/28/16 04:38 TIBC 269 ug/dL (250-450) 06/28/16 04:38 Iron Saturation 16 % (15-55) 06/28/16 04:38 Unsaturated IBC 227 ug/dL (111-343) 06/28/16 04:38 Ferritin 150 ng/mL (30-400) 06/26/16 08:30 Total Bilirubin 0.9 mg/dL (0.3-1.0) 07/14/16 06:45 Direct Bilirubin 0.70 mg/dL (0.0-0.2) H 06/28/16 04:38 GGTP 14 IU/L (0-65) 06/28/16 04:38 AST 27 U/L (13-39) 07/14/16 06:45 ALT 8 U/L (7-52) 07/14/16 06:45 Alkaline Phosphatase 42 U/L (34-104) 07/14/16 06:45 Ammonia 105 umol/L (16-53) H 07/02/16 06:40 Troponin I < 0.01 ng/mL (0.01-0.05) L 06/22/16 19:33 B-Natriuretic Peptide 668.0 pg/mL (5.0-100.0) H 06/22/16 19:33 Total Protein 7.7 gm/dL (6.0-8.3) 07/14/16 06:45 Albumin 2.8 gm/dL (4.2-5.5) L 07/14/16 06:45 Globulin 4.9 gm/dL 07/14/16 06:45 Albumin/Globulin Ratio 0.6 (1.0-1.8) L 07/14/16 06:45 Amylase 28 U/L (29-103) L 07/02/16 06:40 Lipase 31 U/L (11-82) 07/02/16 06:40 Urine Source CLEAN C 06/29/16 05:55 Urine Color YELLOW 06/29/16 05:55 Urine Clarity HAZY (CLEAR) 06/29/16 05:55 Urine pH 5.5 06/29/16 05:55 Ur Specific [place] 1.015 (1.005-1.030) 06/29/16 05:55 Urine Protein 30 mg/dL (NEGATIVE) H 06/29/16 05:55 Urine Glucose (UA) NEGATIVE mg/dL (NEGATIVE) 06/29/16 05:55 Urine Ketones NEGATIVE mg/dL (NEGATIVE) 06/29/16 05:55 Urine Blood NEGATIVE (NEGATIVE) 06/29/16 05:55 Urine Nitrate NEGATIVE (NEGATIVE) 06/29/16 05:55 Urine Bilirubin NEGATIVE (NEGATIVE) 06/29/16 05:55 Urine Urobilinogen 0.2 E.U./dL (0.2 - 1.0) 06/29/16 05:55 Ur Leukocyte Esterase TRACE (NEGATIVE) H 06/29/16 05:55 Urine RBC 0-2 /hpf (0-5) H 06/29/16 05:55 Urine WBC 6-10 /hpf (0-5) H 06/29/16 05:55 Ur Epithelial Cells FEW /lpf (FEW) 06/29/16 05:55 Urine Bacteria MANY /hpf (NONE SEEN) 06/29/16 05:55 Stool Occult Blood POSITIVE (NEGATIVE) 06/24/16 16:00 Random Vancomycin 13.4 ug/mL (5.0-40.0) 06/28/16 04:38 RPR NONREACTIVE (NONREACTIVE) 06/22/16 19:33 Hepatitis A IgM Ab Negative (Negative) 06/29/16 05:49 Hep Bs Antigen Negative (Negative) 06/29/16 05:49 Hep B Core IgM Ab Negative (Negative) 06/29/16 05:49 Hepatitis C Antibody >11.0 s/co ratio (0.0-0.9) H 06/29/16 05:49 Blood Type A POSITIVE 06/28/16 04:38 Antibody Screen NEGATIVE 06/28/16 04:38 Crossmatch See Detail 06/28/16 04:38 - Physical Exam Vitals and I&O: Vital Signs Temp 99.2 F 07/17/16 11:41 Pulse 105 07/17/16 11:41 Resp 20 07/17/16 11:41 BP 97/51 07/17/16 11:41 Pulse Ox 96 07/17/16 11:41 Intake & Output 07/16/16 07/17/16 07/17/16 18:59 06:59 18:59 Intake Total 500 Output Total 1000 1 Balance -1000 499 Intake: Oral 500 Output: Urine 1000 Urine/Stool Mix 1 Other: # Voids 2 Active Medications: Current Medications Acetaminophen (Tylenol) 325 mg PO Q6HR PRN PRN Reason: Mild Pain or Fever >101 Stop: 08/22/16 20:30 Albuterol/Ipratropium (Duoneb Neb) 3 ml HHN Q2HR PRN PRN Reason: Shortness of Breath or Wheeze Stop: 09/08/16 09:51 Aspirin (Ecotrin) 325 mg PO DAILY [facility] Stop: 09/03/16 09:14 Last Admin: 07/16/16 08:17 Dose: 325 mg Calamine/Phenol (Calmoseptine) 1 appl TP QID PRN PRN Reason: Skin Irritation Stop: 09/08/16 18:33 Calamine/Phenol (Calmoseptine) 1 appl TP QID [facility] Stop: 09/08/16 20:59 Last Admin: 07/16/16 21:04 Dose: Not Given Carvedilol (Coreg) 12.5 mg PO BID [facility] Stop: 09/05/16 16:59 Last Admin: 07/16/16 17:50 Dose: 12.5 mg Cholecalciferol (Vitamin D3) 2,000 iu PO DAILY [facility] Stop: 08/23/16 08:59 Last Admin: 07/16/16 08:17 Dose: 2,000 iu Diltiazem HCl (Cardizem) 60 mg PO Q6HR [facility] Stop: 09/04/16 11:59 Last Admin: 07/17/16 06:50 Dose: Not Given Diphenhydramine HCl (Benadryl 50 Mg/Ml) 50 mg IM Q8HR PRN PRN Reason: Agitation Stop: 08/25/16 12:10 Docusate Sodium (Colace) 100 mg PO BID [facility] Stop: 08/22/16 16:59 Last Admin: 07/16/16 17:49 Dose: 100 mg Haloperidol Lactate (Haldol) 5 mg IM Q8HR PRN PRN Reason: Agitation Stop: 08/25/16 12:10 Lactic Acid (Lac-Hydrin Cream) 1 appl TP BID [facility] Stop: 09/12/16 08:59 Last Admin: 07/16/16 17:51 Dose: 1 appl Levothyroxine Sodium (Synthroid) 0.05 mg PO QDAC [facility] Stop: 08/23/16 07:29 Last Admin: 07/16/16 06:30 Dose: 0.05 mg Miscellaneous (Clinical Monitoring) 1 ea MC PRN PRN PRN Reason: RENAL DOSING Stop: 08/31/16 16:27 Ondansetron HCl (Zofran Odt) 4 mg PO Q6HR PRN PRN Reason: Nausea / Vomiting Stop: 08/22/16 20:30 Pantoprazole Sodium (Protonix) 40 mg PO DAILY [facility] Stop: 08/23/16 08:59 Last Admin: 07/16/16 08:17 Dose: 40 mg Quetiapine Fumarate (Seroquel) 100 mg PO TID [facility] PRN Reason: Protocol Stop: 08/26/16 08:59 Last Admin: 07/16/16 21:05 Dose: Not Given Vitamin B Complex/Vit C/Folic Acid (Vitamin B Complex W/Vitamin C) 1 tab PO DAILY [facility] Stop: 08/23/16 08:59 Last Admin: 07/16/16 08:17 Dose: 1 tab - Procedures Procedures: Procedures Procedure Code Date ARTERY-VEIN NONAUTOGRAFT 12878 06/22/16 BYPASS L BRACH ART TO UP ARM VEIN W NONAUT SUB, OPEN [id number] 06/22/16 FLUOROSCOPY OF SUP VENA CAVA USING OTH CONTRAST, GUIDANCE [id number] 06/22/16 INSERTION OF INFUSION DEV INTO SUP VENA CAVA, PERC APPROACH [id number] 06/22/[address] PL[address] CATHETER IN VEIN 28887 06/22/16 Infectious Disease Assmt/Plan - Problem List Patient Problems: All Active Problems MEDICAL EVALUATION PER DR FRY (Acute) - Assessment Assessment: 1. Cellulitis of legs. improved. treated. 2. Lymphedema of legs. 3. CKD 5 on HD. 4. Morbid obesity. - Plan Plan: Continue same treatment. DC plan. It seems difficult to place Mr Vázquez
--- NOTE | 2016-07-17 14:40 | General Progress Note ---
Subjective - Review of Systems Service Date: 07/17/16 Subjective: more cooperative today, took some of meds Objective - Results Result Diagrams: 07/14/16 16:00 07/14/16 06:45 Recent Labs: Laboratory Last Values WBC 4.2 Th/cmm (4.8-10.8) L 07/14/16 16:00 RBC 2.86 Mil/cmm (4.30-5.70) L 07/14/16 16:00 Hgb 8.2 gm/dL (13.2-17.3) L 07/14/16 16:00 Hct 24.8 % (39.0-49.0) L 07/14/16 16:00 MCV 86.9 fl (80-99) 07/14/16 16:00 MCH 28.5 pg (26.0-30.0) 07/14/16 16:00 MCHC Differential 32.8 pg (28.0-36.0) 07/14/16 16:00 RDW 14.8 % (11.5-20.0) 07/14/16 16:00 Plt Count 131 Th/cmm (150-400) L D 07/14/16 16:00 MPV 9.3 fl 07/14/16 16:00 Neutrophils % 56.8 % (40.0-80.0) 07/07/16 06:00 Band Neutrophils % 0 % (0-10) 07/04/16 04:58 Lymphocytes % 18.4 % (20.0-50.0) L 07/07/16 06:00 Monocytes % 13.8 % (2.0-10.0) H 07/07/16 06:00 Eosinophils % 11.0 % (0.0-5.0) H 07/07/16 06:00 Basophils % 0.0 % (0.0-2.0) 07/07/16 06:00 Neutrophils (Manual) 66 % (40-80) 07/14/16 16:00 Lymphocytes 11 % (20-50) L 07/14/16 16:00 Monocytes 9 % (2-10) 07/14/16 16:00 Eosinophils 13 % (0-5) H 07/14/16 16:00 Basophils 2 % (0-3) 07/05/16 12:15 Myelocytes 1 % 07/14/16 16:00 Hypochromia 1+ 06/22/16 19:33 Platelet Estimate SLIGHT DECREASED (NORMAL) 07/14/16 16:00 Platelet Morphology NORMAL (NORMAL) 07/14/16 16:00 Polychromasia 1+ 07/03/16 05:30 Anisocytosis 1+ 07/05/16 12:15 Microcytosis 1+ 07/14/16 16:00 RBC Morph Micro Appear ABNORMAL (NORMAL) 07/14/16 16:00 PT 12.7 SECONDS (9.5-11.5) H 07/01/16 06:57 INR 1.26 (0.5-1.4) 07/01/16 06:57 PTT (Actin FS) 28.3 SECONDS (26.0-38.0) 06/28/16 04:38 Specimen Source art 06/22/16 20:03 Sample Site Right Radial 06/22/16 20:03 pH 7.49 (7.35-7.45) H 06/22/16 20:03 pCO2 34.0 mmHg (35.0-45.0) L 06/22/16 20:03 pO2 97.0 mmHg (80.0-100.0) 06/22/16 20:03 HCO3 25.9 mmol/L (20.0-26.0) 06/22/16 20:03 Base Excess 2.8 mmol/L (-3.0-3.0) 06/22/16 20:03 O2 Saturation 98.0 % (92.0-100.0) 06/22/16 20:03 Estuardo Test P 06/22/16 20:03 Vent Rate NA 06/22/16 20:03 Inspired O2 21 06/22/16 20:03 Tidal Volume NA 06/22/16 20:03 PEEP NA 06/22/16 20:03 Pressure (ins/psv/peep) NA 06/22/16 20:03 Critical Value RPINEIRA 06/22/16 20:03 Sodium 130 mEq/L (136-145) L 07/14/16 06:45 Potassium 4.3 mEq/L (3.5-5.1) 07/14/16 06:45 Chloride 96 mEq/L (98-107) L 07/14/16 06:45 Carbon Dioxide 26.1 mEq/L (21.0-31.0) 07/14/16 06:45 Anion Gap 12.2 (7.0-16.0) 07/14/16 06:45 BUN 44 mg/dL (7-25) H 07/14/16 06:45 Creatinine 4.3 mg/dL (0.7-1.3) H* 07/14/16 06:45 Est GFR ( Amer) 19.0 ml/min (>90) 07/14/16 06:45 Est GFR (Non-Af Amer) 15.7 ml/min 07/14/16 06:45 BUN/Creatinine Ratio 10.2 07/14/16 06:45 Glucose 99 mg/dL (70-105) 07/14/16 06:45 Calcium 9.1 mg/dL (8.6-10.3) 07/14/16 06:45 Phosphorus 3.5 mg/dL (2.5-5.0) 07/08/16 05:00 Magnesium 2.0 mg/dL (1.9-2.7) 07/07/16 06:00 Iron 42 ug/dL (38-169) 06/28/16 04:38 TIBC 269 ug/dL (250-450) 06/28/16 04:38 Iron Saturation 16 % (15-55) 06/28/16 04:38 Unsaturated IBC 227 ug/dL (111-343) 06/28/16 04:38 Ferritin 150 ng/mL (30-400) 06/26/16 08:30 Total Bilirubin 0.9 mg/dL (0.3-1.0) 07/14/16 06:45 Direct Bilirubin 0.70 mg/dL (0.0-0.2) H 06/28/16 04:38 GGTP 14 IU/L (0-65) 06/28/16 04:38 AST 27 U/L (13-39) 07/14/16 06:45 ALT 8 U/L (7-52) 07/14/16 06:45 Alkaline Phosphatase 42 U/L (34-104) 07/14/16 06:45 Ammonia 105 umol/L (16-53) H 07/02/16 06:40 Troponin I < 0.01 ng/mL (0.01-0.05) L 06/22/16 19:33 B-Natriuretic Peptide 668.0 pg/mL (5.0-100.0) H 06/22/16 19:33 Total Protein 7.7 gm/dL (6.0-8.3) 07/14/16 06:45 Albumin 2.8 gm/dL (4.2-5.5) L 07/14/16 06:45 Globulin 4.9 gm/dL 07/14/16 06:45 Albumin/Globulin Ratio 0.6 (1.0-1.8) L 07/14/16 06:45 Amylase 28 U/L (29-103) L 07/02/16 06:40 Lipase 31 U/L (11-82) 07/02/16 06:40 Urine Source CLEAN C 06/29/16 05:55 Urine Color YELLOW 06/29/16 05:55 Urine Clarity HAZY (CLEAR) 06/29/16 05:55 Urine pH 5.5 06/29/16 05:55 Ur Specific [place] 1.015 (1.005-1.030) 06/29/16 05:55 Urine Protein 30 mg/dL (NEGATIVE) H 06/29/16 05:55 Urine Glucose (UA) NEGATIVE mg/dL (NEGATIVE) 06/29/16 05:55 Urine Ketones NEGATIVE mg/dL (NEGATIVE) 06/29/16 05:55 Urine Blood NEGATIVE (NEGATIVE) 06/29/16 05:55 Urine Nitrate NEGATIVE (NEGATIVE) 06/29/16 05:55 Urine Bilirubin NEGATIVE (NEGATIVE) 06/29/16 05:55 Urine Urobilinogen 0.2 E.U./dL (0.2 - 1.0) 06/29/16 05:55 Ur Leukocyte Esterase TRACE (NEGATIVE) H 06/29/16 05:55 Urine RBC 0-2 /hpf (0-5) H 06/29/16 05:55 Urine WBC 6-10 /hpf (0-5) H 06/29/16 05:55 Ur Epithelial Cells FEW /lpf (FEW) 06/29/16 05:55 Urine Bacteria MANY /hpf (NONE SEEN) 06/29/16 05:55 Stool Occult Blood POSITIVE (NEGATIVE) 06/24/16 16:00 Random Vancomycin 13.4 ug/mL (5.0-40.0) 06/28/16 04:38 RPR NONREACTIVE (NONREACTIVE) 06/22/16 19:33 Hepatitis A IgM Ab Negative (Negative) 06/29/16 05:49 Hep Bs Antigen Negative (Negative) 06/29/16 05:49 Hep B Core IgM Ab Negative (Negative) 06/29/16 05:49 Hepatitis C Antibody >11.0 s/co ratio (0.0-0.9) H 06/29/16 05:49 Blood Type A POSITIVE 06/28/16 04:38 Antibody Screen NEGATIVE 06/28/16 04:38 Crossmatch See Detail 06/28/16 04:38 - Physical Exam Vitals and I&O: Vital Signs Temp 99.2 F 07/17/16 11:41 Pulse 105 07/17/16 11:41 Resp 20 07/17/16 11:41 BP 97/51 07/17/16 11:41 Pulse Ox 96 07/17/16 11:41 Intake & Output 07/16/16 07/17/16 07/17/16 18:59 06:59 18:59 Intake Total 500 Output Total 1000 1 Balance -1000 499 Intake: Oral 500 Output: Urine 1000 Urine/Stool Mix 1 Other: # Voids 2 Active Medications: Current Medications Acetaminophen (Tylenol) 325 mg PO Q6HR PRN PRN Reason: Mild Pain or Fever >101 Stop: 08/22/16 20:30 Albuterol/Ipratropium (Duoneb Neb) 3 ml HHN Q2HR PRN PRN Reason: Shortness of Breath or Wheeze Stop: 09/08/16 09:51 Aspirin (Ecotrin) 325 mg PO DAILY [facility] Stop: 09/03/16 09:14 Last Admin: 07/16/16 08:17 Dose: 325 mg Calamine/Phenol (Calmoseptine) 1 appl TP QID PRN PRN Reason: Skin Irritation Stop: 09/08/16 18:33 Calamine/Phenol (Calmoseptine) 1 appl TP QID [facility] Stop: 09/08/16 20:59 Last Admin: 07/16/16 21:04 Dose: Not Given Carvedilol (Coreg) 12.5 mg PO BID [facility] Stop: 09/05/16 16:59 Last Admin: 07/16/16 17:50 Dose: 12.5 mg Cholecalciferol (Vitamin D3) 2,000 iu PO DAILY [facility] Stop: 08/23/16 08:59 Last Admin: 07/16/16 08:17 Dose: 2,000 iu Diltiazem HCl (Cardizem) 60 mg PO Q6HR [facility] Stop: 09/04/16 11:59 Last Admin: 07/17/16 06:50 Dose: Not Given Diphenhydramine HCl (Benadryl 50 Mg/Ml) 50 mg IM Q8HR PRN PRN Reason: Agitation Stop: 08/25/16 12:10 Docusate Sodium (Colace) 100 mg PO BID [facility] Stop: 08/22/16 16:59 Last Admin: 07/16/16 17:49 Dose: 100 mg Haloperidol Lactate (Haldol) 5 mg IM Q8HR PRN PRN Reason: Agitation Stop: 08/25/16 12:10 Lactic Acid (Lac-Hydrin Cream) 1 appl TP BID [facility] Stop: 09/12/16 08:59 Last Admin: 07/16/16 17:51 Dose: 1 appl Levothyroxine Sodium (Synthroid) 0.05 mg PO QDAC [facility] Stop: 08/23/16 07:29 Last Admin: 07/16/16 06:30 Dose: 0.05 mg Miscellaneous (Clinical Monitoring) 1 ea MC PRN PRN PRN Reason: RENAL DOSING Stop: 08/31/16 16:27 Ondansetron HCl (Zofran Odt) 4 mg PO Q6HR PRN PRN Reason: Nausea / Vomiting Stop: 08/22/16 20:30 Pantoprazole Sodium (Protonix) 40 mg PO DAILY [facility] Stop: 08/23/16 08:59 Last Admin: 07/16/16 08:17 Dose: 40 mg Quetiapine Fumarate (Seroquel) 100 mg PO TID [facility] PRN Reason: Protocol Stop: 08/26/16 08:59 Last Admin: 07/16/16 21:05 Dose: Not Given Vitamin B Complex/Vit C/Folic Acid (Vitamin B Complex W/Vitamin C) 1 tab PO DAILY [facility] Stop: 08/23/16 08:59 Last Admin: 07/16/16 08:17 Dose: 1 tab General: Alert, No acute distress HEENT: Atraumatic, Mucous membr. moist/pink Neck: Supple, +2 carotid pulse wo bruit Cardiovascular: Regular rate, Normal S1, Normal S2 Lungs: Other (few rhonchi) Abdomen: Bowel sounds, Soft Extremities: no Edema Neurological: Sensation intact Skin: no Rash - Procedures Procedures: Procedures Procedure Code Date ARTERY-VEIN NONAUTOGRAFT 42872 06/22/16 BYPASS L BRACH ART TO UP ARM VEIN W NONAUT SUB, OPEN [id number] 06/22/16 FLUOROSCOPY OF SUP VENA CAVA USING [facility] CONTRAST, GUIDANCE [id number] 06/22/16 INSERTION OF INFUSION DEV INTO SUP VENA CAVA, PERC APPROACH [id number] 06/22/[address] PL[address] CATHETER IN VEIN [address]86 06/22/16 Assessment/Plan - Problem List Patient Problems: All Active Problems MEDICAL EVALUATION PER DR FRY (Acute) - Assessment Assessment: esrd on hd persistent cellulitis b/l lower ext acute on chronic anemia possible gi bleed ohs chronic a. fib hypothyroid anasarca functional quadriplegia chronic venous stasis dermatitis acute decomp psychosis hypokalemia, hypomagnesemia s/p left avg - Plan Plan: hgb/hct slightly improved to 8.2/24.8 agree w/ K replacement schedule for HD today placement in progress continue psych meds
[2016-07-18] MEDS: Morphine Sulfate 2 mg/mL 1mL Syr IVP PRN (00:28)
[2016-07-18] MEDS ORDERED: Morphine Sulfate 4 mg/mL 1mL Syr IV PRN (00:35)
[2016-07-18] MEDS: Diltiazem 30 mg Tab PO SCH ×4 (01:00→17:58)
[2016-07-18] MEDS: Lactulose 10 Gm/15 mL 30mL UDC PO SCH ×3 (06:33→22:00)
[2016-07-18] MEDS: Levothyroxine 0.05 Mg Tab PO SCH (07:02)
[2016-07-18] MEDS: Pantoprazole 40 mg EC Tab PO SCH (09:30)
[2016-07-18] MEDS: Vitamin B Complex w/Vitamin C Tab PO SCH (09:30)
[2016-07-18] MEDS: Aspirin 325 mg EC PO SCH (09:30)
[2016-07-18] MEDS: Menthol/Zinc Oxide Oint 113gm Tube TP SCH ×4 (09:31→22:00)
[2016-07-18] MEDS: Ammonium Lactate Cream 140 gm Tube TP SCH ×2 (09:34→17:58)
--- NOTE | 2016-07-18 11:21 | Infectious Disease Prog Note ---
Infectious Disease Subjective - Review of Systems Service Date: 07/18/16 Subjective: No change. Infectious Disease Objective - Results Result Diagrams: 07/14/16 16:00 07/14/16 06:45 Recent Labs: Laboratory Last Values WBC 4.2 Th/cmm (4.8-10.8) L 07/14/16 16:00 RBC 2.86 Mil/cmm (4.30-5.70) L 07/14/16 16:00 Hgb 8.2 gm/dL (13.2-17.3) L 07/14/16 16:00 Hct 24.8 % (39.0-49.0) L 07/14/16 16:00 MCV 86.9 fl (80-99) 07/14/16 16:00 MCH 28.5 pg (26.0-30.0) 07/14/16 16:00 MCHC Differential 32.8 pg (28.0-36.0) 07/14/16 16:00 RDW 14.8 % (11.5-20.0) 07/14/16 16:00 Plt Count 131 Th/cmm (150-400) L D 07/14/16 16:00 MPV 9.3 fl 07/14/16 16:00 Neutrophils % 56.8 % (40.0-80.0) 07/07/16 06:00 Band Neutrophils % 0 % (0-10) 07/04/16 04:58 Lymphocytes % 18.4 % (20.0-50.0) L 07/07/16 06:00 Monocytes % 13.8 % (2.0-10.0) H 07/07/16 06:00 Eosinophils % 11.0 % (0.0-5.0) H 07/07/16 06:00 Basophils % 0.0 % (0.0-2.0) 07/07/16 06:00 Neutrophils (Manual) 66 % (40-80) 07/14/16 16:00 Lymphocytes 11 % (20-50) L 07/14/16 16:00 Monocytes 9 % (2-10) 07/14/16 16:00 Eosinophils 13 % (0-5) H 07/14/16 16:00 Basophils 2 % (0-3) 07/05/16 12:15 Myelocytes 1 % 07/14/16 16:00 Hypochromia 1+ 06/22/16 19:33 Platelet Estimate SLIGHT DECREASED (NORMAL) 07/14/16 16:00 Platelet Morphology NORMAL (NORMAL) 07/14/16 16:00 Polychromasia 1+ 07/03/16 05:30 Anisocytosis 1+ 07/05/16 12:15 Microcytosis 1+ 07/14/16 16:00 RBC Morph Micro Appear ABNORMAL (NORMAL) 07/14/16 16:00 PT 12.7 SECONDS (9.5-11.5) H 07/01/16 06:57 INR 1.26 (0.5-1.4) 07/01/16 06:57 PTT (Actin FS) 28.3 SECONDS (26.0-38.0) 06/28/16 04:38 Specimen Source art 06/22/16 20:03 Sample Site Right Radial 06/22/16 20:03 pH 7.49 (7.35-7.45) H 06/22/16 20:03 pCO2 34.0 mmHg (35.0-45.0) L 06/22/16 20:03 pO2 97.0 mmHg (80.0-100.0) 06/22/16 20:03 HCO3 25.9 mmol/L (20.0-26.0) 06/22/16 20:03 Base Excess 2.8 mmol/L (-3.0-3.0) 06/22/16 20:03 O2 Saturation 98.0 % (92.0-100.0) 06/22/16 20:03 Estuardo Test P 06/22/16 20:03 Vent Rate NA 06/22/16 20:03 Inspired O2 21 06/22/16 20:03 Tidal Volume NA 06/22/16 20:03 PEEP NA 06/22/16 20:03 Pressure (ins/psv/peep) NA 06/22/16 20:03 Critical Value RPINEIRA 06/22/16 20:03 Sodium 130 mEq/L (136-145) L 07/14/16 06:45 Potassium 4.3 mEq/L (3.5-5.1) 07/14/16 06:45 Chloride 96 mEq/L (98-107) L 07/14/16 06:45 Carbon Dioxide 26.1 mEq/L (21.0-31.0) 07/14/16 06:45 Anion Gap 12.2 (7.0-16.0) 07/14/16 06:45 BUN 44 mg/dL (7-25) H 07/14/16 06:45 Creatinine 4.3 mg/dL (0.7-1.3) H* 07/14/16 06:45 Est GFR ( Amer) 19.0 ml/min (>90) 07/14/16 06:45 Est GFR (Non-Af Amer) 15.7 ml/min 07/14/16 06:45 BUN/Creatinine Ratio 10.2 07/14/16 06:45 Glucose 99 mg/dL (70-105) 07/14/16 06:45 Calcium 9.1 mg/dL (8.6-10.3) 07/14/16 06:45 Phosphorus 3.5 mg/dL (2.5-5.0) 07/08/16 05:00 Magnesium 2.0 mg/dL (1.9-2.7) 07/07/16 06:00 Iron 42 ug/dL (38-169) 06/28/16 04:38 TIBC 269 ug/dL (250-450) 06/28/16 04:38 Iron Saturation 16 % (15-55) 06/28/16 04:38 Unsaturated IBC 227 ug/dL (111-343) 06/28/16 04:38 Ferritin 150 ng/mL (30-400) 06/26/16 08:30 Total Bilirubin 0.9 mg/dL (0.3-1.0) 07/14/16 06:45 Direct Bilirubin 0.70 mg/dL (0.0-0.2) H 06/28/16 04:38 GGTP 14 IU/L (0-65) 06/28/16 04:38 AST 27 U/L (13-39) 07/14/16 06:45 ALT 8 U/L (7-52) 07/14/16 06:45 Alkaline Phosphatase 42 U/L (34-104) 07/14/16 06:45 Ammonia 105 umol/L (16-53) H 07/02/16 06:40 Troponin I < 0.01 ng/mL (0.01-0.05) L 06/22/16 19:33 B-Natriuretic Peptide 668.0 pg/mL (5.0-100.0) H 06/22/16 19:33 Total Protein 7.7 gm/dL (6.0-8.3) 07/14/16 06:45 Albumin 2.8 gm/dL (4.2-5.5) L 07/14/16 06:45 Globulin 4.9 gm/dL 07/14/16 06:45 Albumin/Globulin Ratio 0.6 (1.0-1.8) L 07/14/16 06:45 Amylase 28 U/L (29-103) L 07/02/16 06:40 Lipase 31 U/L (11-82) 07/02/16 06:40 Urine Source CLEAN C 06/29/16 05:55 Urine Color YELLOW 06/29/16 05:55 Urine Clarity HAZY (CLEAR) 06/29/16 05:55 Urine pH 5.5 06/29/16 05:55 Ur Specific [place] 1.015 (1.005-1.030) 06/29/16 05:55 Urine Protein 30 mg/dL (NEGATIVE) H 06/29/16 05:55 Urine Glucose (UA) NEGATIVE mg/dL (NEGATIVE) 06/29/16 05:55 Urine Ketones NEGATIVE mg/dL (NEGATIVE) 06/29/16 05:55 Urine Blood NEGATIVE (NEGATIVE) 06/29/16 05:55 Urine Nitrate NEGATIVE (NEGATIVE) 06/29/16 05:55 Urine Bilirubin NEGATIVE (NEGATIVE) 06/29/16 05:55 Urine Urobilinogen 0.2 E.U./dL (0.2 - 1.0) 06/29/16 05:55 Ur Leukocyte Esterase TRACE (NEGATIVE) H 06/29/16 05:55 Urine RBC 0-2 /hpf (0-5) H 06/29/16 05:55 Urine WBC 6-10 /hpf (0-5) H 06/29/16 05:55 Ur Epithelial Cells FEW /lpf (FEW) 06/29/16 05:55 Urine Bacteria MANY /hpf (NONE SEEN) 06/29/16 05:55 Stool Occult Blood POSITIVE (NEGATIVE) 06/24/16 16:00 Random Vancomycin 13.4 ug/mL (5.0-40.0) 06/28/16 04:38 RPR NONREACTIVE (NONREACTIVE) 06/22/16 19:33 Hepatitis A IgM Ab Negative (Negative) 06/29/16 05:49 Hep Bs Antigen Negative (Negative) 06/29/16 05:49 Hep B Core IgM Ab Negative (Negative) 06/29/16 05:49 Hepatitis C Antibody >11.0 s/co ratio (0.0-0.9) H 06/29/16 05:49 Blood Type A POSITIVE 06/28/16 04:38 Antibody Screen NEGATIVE 06/28/16 04:38 Crossmatch See Detail 06/28/16 04:38 - Physical Exam Vitals and I&O: Vital Signs Temp 97.4 F 07/18/16 07:44 Pulse 105 07/18/16 09:31 Resp 17 07/18/16 07:44 BP 88/52 07/18/16 09:31 Pulse Ox 97 07/18/16 07:44 Intake & Output 07/17/16 07/18/16 07/18/16 18:59 06:59 18:59 Intake Total 1500 500 Balance 1500 500 Intake: Oral 1500 500 Active Medications: Current Medications Acetaminophen (Tylenol) 325 mg PO Q6HR PRN PRN Reason: Mild Pain or Fever >101 Stop: 08/22/16 20:30 Albuterol/Ipratropium (Duoneb Neb) 3 ml HHN Q2HR PRN PRN Reason: Shortness of Breath or Wheeze Stop: 09/08/16 09:51 Aspirin (Ecotrin) 325 mg PO DAILY [facility] Stop: 09/03/16 09:14 Last Admin: 07/18/16 09:30 Dose: 325 mg Calamine/Phenol (Calmoseptine) 1 appl TP QID PRN PRN Reason: Skin Irritation Stop: 09/08/16 18:33 Calamine/Phenol (Calmoseptine) 1 appl TP QID [facility] Stop: 09/08/16 20:59 Last Admin: 07/18/16 09:31 Dose: 1 appl Carvedilol (Coreg) 12.5 mg PO BID [facility] Stop: 09/05/16 16:59 Last Admin: 07/18/16 09:31 Dose: Not Given Cholecalciferol (Vitamin D3) 2,000 iu PO DAILY [facility] Stop: 08/23/16 08:59 Last Admin: 07/18/16 09:30 Dose: 2,000 iu Diltiazem HCl (Cardizem) 60 mg PO Q6HR [facility] Stop: 09/04/16 11:59 Last Admin: 07/18/16 07:02 Dose: Not Given Diphenhydramine HCl (Benadryl 50 Mg/Ml) 50 mg IM Q8HR PRN PRN Reason: Agitation Stop: 08/25/16 12:10 Docusate Sodium (Colace) 100 mg PO Q12HR [facility] Stop: 09/16/16 08:59 Last Admin: 07/18/16 09:30 Dose: 100 mg Haloperidol Lactate (Haldol) 5 mg IM Q8HR PRN PRN Reason: Agitation Stop: 08/25/16 12:10 Lactic Acid (Lac-Hydrin Cream) 1 appl TP BID [facility] Stop: 09/12/16 08:59 Last Admin: 07/18/16 09:34 Dose: Not Given Lactulose (Cephulac) 20 gm PO Q8HR [facility] Stop: 09/16/16 04:59 Last Admin: 07/18/16 06:33 Dose: Not Given Levothyroxine Sodium (Synthroid) 0.05 mg PO QDAC [facility] Stop: 08/23/16 07:29 Last Admin: 07/18/16 07:02 Dose: Not Given Miscellaneous (Clinical Monitoring) 1 ea MC PRN PRN PRN Reason: RENAL DOSING Stop: 08/31/16 16:27 Morphine Sulfate (Morphine) 1 mg IVP Q4HR PRN PRN Reason: Pain (Moderate) Stop: 09/16/16 00:08 Last Admin: 07/18/16 00:28 Dose: 1 mg Morphine Sulfate (Morphine) 3 mg IV Q4HR PRN PRN Reason: Pain (Severe) Stop: 09/16/16 00:34 Ondansetron HCl (Zofran Odt) 4 mg PO Q6HR PRN PRN Reason: Nausea / Vomiting Stop: 08/22/16 20:30 Pantoprazole Sodium (Protonix) 40 mg PO DAILY [facility] Stop: 08/23/16 08:59 Last Admin: 07/18/16 09:30 Dose: 40 mg Quetiapine Fumarate (Seroquel) 100 mg PO TID [facility] PRN Reason: Protocol Stop: 08/26/16 08:59 Last Admin: 07/18/16 09:30 Dose: 100 mg Vitamin B Complex/Vit C/Folic Acid (Vitamin B Complex W/Vitamin C) 1 tab PO DAILY [facility] Stop: 08/23/16 08:59 Last Admin: 07/18/16 09:30 Dose: 1 tab General: no acute distress, other (Obese) HEENT: atraumatic, normocephalic, PERRLA, EOMI, moist mucous membrane Neck: supple Cardiovascular: S1S2, no regular Lungs: no clear to auscultation bilaterally, no clear to percussion Abdomen: soft, no tender, no distended Extremities: no cyanosis, no clubbing, no edema Neurological: awake, alert, oriented Skin: intact - Procedures Procedures: Procedures Procedure Code Date ARTERY-VEIN NONAUTOGRAFT 16137 06/22/16 BYPASS L BRACH ART TO UP ARM VEIN W NONAUT SUB, OPEN [id number] 06/22/16 FLUOROSCOPY OF SUP VENA CAVA USING [facility] CONTRAST, GUIDANCE [id number] 06/22/16 INSERTION OF INFUSION DEV INTO SUP VENA CAVA, PERC APPROACH [id number] 06/22/16 PLACE CATHETER IN VEIN [address] 06/22/16 Infectious Disease Assmt/Plan - Problem List Patient Problems: All Active Problems MEDICAL EVALUATION PER DR FRY (Acute) - Assessment Assessment: 1. Cellulitis of legs. improved. treated. 2. Lymphedema of legs. 3. CKD 5 on HD. 4. Morbid obesity. 5. hep C. - Plan Plan: Continue same treatment. DC to SNF.
--- NOTE | 2016-07-18 13:35 | General Progress Note ---
Subjective - Review of Systems Service Date: 07/18/16 Subjective: more agitated today Objective - Results Result Diagrams: 07/14/16 16:00 07/14/16 06:45 Recent Labs: Laboratory Last Values WBC 4.2 Th/cmm (4.8-10.8) L 07/14/16 16:00 RBC 2.86 Mil/cmm (4.30-5.70) L 07/14/16 16:00 Hgb 8.2 gm/dL (13.2-17.3) L 07/14/16 16:00 Hct 24.8 % (39.0-49.0) L 07/14/16 16:00 MCV 86.9 fl (80-99) 07/14/16 16:00 MCH 28.5 pg (26.0-30.0) 07/14/16 16:00 MCHC Differential 32.8 pg (28.0-36.0) 07/14/16 16:00 RDW 14.8 % (11.5-20.0) 07/14/16 16:00 Plt Count 131 Th/cmm (150-400) L D 07/14/16 16:00 MPV 9.3 fl 07/14/16 16:00 Neutrophils % 56.8 % (40.0-80.0) 07/07/16 06:00 Band Neutrophils % 0 % (0-10) 07/04/16 04:58 Lymphocytes % 18.4 % (20.0-50.0) L 07/07/16 06:00 Monocytes % 13.8 % (2.0-10.0) H 07/07/16 06:00 Eosinophils % 11.0 % (0.0-5.0) H 07/07/16 06:00 Basophils % 0.0 % (0.0-2.0) 07/07/16 06:00 Neutrophils (Manual) 66 % (40-80) 07/14/16 16:00 Lymphocytes 11 % (20-50) L 07/14/16 16:00 Monocytes 9 % (2-10) 07/14/16 16:00 Eosinophils 13 % (0-5) H 07/14/16 16:00 Basophils 2 % (0-3) 07/05/16 12:15 Myelocytes 1 % 07/14/16 16:00 Hypochromia 1+ 06/22/16 19:33 Platelet Estimate SLIGHT DECREASED (NORMAL) 07/14/16 16:00 Platelet Morphology NORMAL (NORMAL) 07/14/16 16:00 Polychromasia 1+ 07/03/16 05:30 Anisocytosis 1+ 07/05/16 12:15 Microcytosis 1+ 07/14/16 16:00 RBC Morph Micro Appear ABNORMAL (NORMAL) 07/14/16 16:00 PT 12.7 SECONDS (9.5-11.5) H 07/01/16 06:57 INR 1.26 (0.5-1.4) 07/01/16 06:57 PTT (Actin FS) 28.3 SECONDS (26.0-38.0) 06/28/16 04:38 Specimen Source art 06/22/16 20:03 Sample Site Right Radial 06/22/16 20:03 pH 7.49 (7.35-7.45) H 06/22/16 20:03 pCO2 34.0 mmHg (35.0-45.0) L 06/22/16 20:03 pO2 97.0 mmHg (80.0-100.0) 06/22/16 20:03 HCO3 25.9 mmol/L (20.0-26.0) 06/22/16 20:03 Base Excess 2.8 mmol/L (-3.0-3.0) 06/22/16 20:03 O2 Saturation 98.0 % (92.0-100.0) 06/22/16 20:03 Estuardo Test P 06/22/16 20:03 Vent Rate NA 06/22/16 20:03 Inspired O2 21 06/22/16 20:03 Tidal Volume NA 06/22/16 20:03 PEEP NA 06/22/16 20:03 Pressure (ins/psv/peep) NA 06/22/16 20:03 Critical Value RPINEIRA 06/22/16 20:03 Sodium 130 mEq/L (136-145) L 07/14/16 06:45 Potassium 4.3 mEq/L (3.5-5.1) 07/14/16 06:45 Chloride 96 mEq/L (98-107) L 07/14/16 06:45 Carbon Dioxide 26.1 mEq/L (21.0-31.0) 07/14/16 06:45 Anion Gap 12.2 (7.0-16.0) 07/14/16 06:45 BUN 44 mg/dL (7-25) H 07/14/16 06:45 Creatinine 4.3 mg/dL (0.7-1.3) H* 07/14/16 06:45 Est GFR ( Amer) 19.0 ml/min (>90) 07/14/16 06:45 Est GFR (Non-Af Amer) 15.7 ml/min 07/14/16 06:45 BUN/Creatinine Ratio 10.2 07/14/16 06:45 Glucose 99 mg/dL (70-105) 07/14/16 06:45 Calcium 9.1 mg/dL (8.6-10.3) 07/14/16 06:45 Phosphorus 3.5 mg/dL (2.5-5.0) 07/08/16 05:00 Magnesium 2.0 mg/dL (1.9-2.7) 07/07/16 06:00 Iron 42 ug/dL (38-169) 06/28/16 04:38 TIBC 269 ug/dL (250-450) 06/28/16 04:38 Iron Saturation 16 % (15-55) 06/28/16 04:38 Unsaturated IBC 227 ug/dL (111-343) 06/28/16 04:38 Ferritin 150 ng/mL (30-400) 06/26/16 08:30 Total Bilirubin 0.9 mg/dL (0.3-1.0) 07/14/16 06:45 Direct Bilirubin 0.70 mg/dL (0.0-0.2) H 06/28/16 04:38 GGTP 14 IU/L (0-65) 06/28/16 04:38 AST 27 U/L (13-39) 07/14/16 06:45 ALT 8 U/L (7-52) 07/14/16 06:45 Alkaline Phosphatase 42 U/L (34-104) 07/14/16 06:45 Ammonia 105 umol/L (16-53) H 07/02/16 06:40 Troponin I < 0.01 ng/mL (0.01-0.05) L 06/22/16 19:33 B-Natriuretic Peptide 668.0 pg/mL (5.0-100.0) H 06/22/16 19:33 Total Protein 7.7 gm/dL (6.0-8.3) 07/14/16 06:45 Albumin 2.8 gm/dL (4.2-5.5) L 07/14/16 06:45 Globulin 4.9 gm/dL 07/14/16 06:45 Albumin/Globulin Ratio 0.6 (1.0-1.8) L 07/14/16 06:45 Amylase 28 U/L (29-103) L 07/02/16 06:40 Lipase 31 U/L (11-82) 07/02/16 06:40 Urine Source CLEAN C 06/29/16 05:55 Urine Color YELLOW 06/29/16 05:55 Urine Clarity HAZY (CLEAR) 06/29/16 05:55 Urine pH 5.5 06/29/16 05:55 Ur Specific [place] 1.015 (1.005-1.030) 06/29/16 05:55 Urine Protein 30 mg/dL (NEGATIVE) H 06/29/16 05:55 Urine Glucose (UA) NEGATIVE mg/dL (NEGATIVE) 06/29/16 05:55 Urine Ketones NEGATIVE mg/dL (NEGATIVE) 06/29/16 05:55 Urine Blood NEGATIVE (NEGATIVE) 06/29/16 05:55 Urine Nitrate NEGATIVE (NEGATIVE) 06/29/16 05:55 Urine Bilirubin NEGATIVE (NEGATIVE) 06/29/16 05:55 Urine Urobilinogen 0.2 E.U./dL (0.2 - 1.0) 06/29/16 05:55 Ur Leukocyte Esterase TRACE (NEGATIVE) H 06/29/16 05:55 Urine RBC 0-2 /hpf (0-5) H 06/29/16 05:55 Urine WBC 6-10 /hpf (0-5) H 06/29/16 05:55 Ur Epithelial Cells FEW /lpf (FEW) 06/29/16 05:55 Urine Bacteria MANY /hpf (NONE SEEN) 06/29/16 05:55 Stool Occult Blood POSITIVE (NEGATIVE) 06/24/16 16:00 Random Vancomycin 13.4 ug/mL (5.0-40.0) 06/28/16 04:38 RPR NONREACTIVE (NONREACTIVE) 06/22/16 19:33 Hepatitis A IgM Ab Negative (Negative) 06/29/16 05:49 Hep Bs Antigen Negative (Negative) 06/29/16 05:49 Hep B Core IgM Ab Negative (Negative) 06/29/16 05:49 Hepatitis C Antibody >11.0 s/co ratio (0.0-0.9) H 06/29/16 05:49 Blood Type A POSITIVE 06/28/16 04:38 Antibody Screen NEGATIVE 06/28/16 04:38 Crossmatch See Detail 06/28/16 04:38 - Physical Exam Vitals and I&O: Vital Signs Temp 97.4 F 07/18/16 07:44 Pulse 105 07/18/16 09:31 Resp 17 07/18/16 07:44 BP 88/52 07/18/16 09:31 Pulse Ox 97 07/18/16 07:44 Intake & Output 07/17/16 07/18/16 07/18/16 18:59 06:59 18:59 Intake Total 1500 500 Balance 1500 500 Intake: Oral 1500 500 Active Medications: Current Medications Acetaminophen (Tylenol) 325 mg PO Q6HR PRN PRN Reason: Mild Pain or Fever >101 Stop: 08/22/16 20:30 Albuterol/Ipratropium (Duoneb Neb) 3 ml HHN Q2HR PRN PRN Reason: Shortness of Breath or Wheeze Stop: 09/08/16 09:51 Aspirin (Ecotrin) 325 mg PO DAILY [facility] Stop: 09/03/16 09:14 Last Admin: 07/18/16 09:30 Dose: 325 mg Calamine/Phenol (Calmoseptine) 1 appl TP QID PRN PRN Reason: Skin Irritation Stop: 09/08/16 18:33 Calamine/Phenol (Calmoseptine) 1 appl TP QID [facility] Stop: 09/08/16 20:59 Last Admin: 07/18/16 09:31 Dose: 1 appl Carvedilol (Coreg) 12.5 mg PO BID [facility] Stop: 09/05/16 16:59 Last Admin: 07/18/16 09:31 Dose: Not Given Cholecalciferol (Vitamin D3) 2,000 iu PO DAILY [facility] Stop: 08/23/16 08:59 Last Admin: 07/18/16 09:30 Dose: 2,000 iu Diltiazem HCl (Cardizem) 60 mg PO Q6HR [facility] Stop: 09/04/16 11:59 Last Admin: 07/18/16 07:02 Dose: Not Given Diphenhydramine HCl (Benadryl 50 Mg/Ml) 50 mg IM Q8HR PRN PRN Reason: Agitation Stop: 08/25/16 12:10 Docusate Sodium (Colace) 100 mg PO Q12HR [facility] Stop: 09/16/16 08:59 Last Admin: 07/18/16 09:30 Dose: 100 mg Haloperidol Lactate (Haldol) 5 mg IM Q8HR PRN PRN Reason: Agitation Stop: 08/25/16 12:10 Lactic Acid (Lac-Hydrin Cream) 1 appl TP BID [facility] Stop: 09/12/16 08:59 Last Admin: 07/18/16 09:34 Dose: Not Given Lactulose (Cephulac) 20 gm PO Q8HR [facility] Stop: 09/16/16 04:59 Last Admin: 07/18/16 06:33 Dose: Not Given Levothyroxine Sodium (Synthroid) 0.05 mg PO QDAC [facility] Stop: 08/23/16 07:29 Last Admin: 07/18/16 07:02 Dose: Not Given Miscellaneous (Clinical Monitoring) 1 ea MC PRN PRN PRN Reason: RENAL DOSING Stop: 08/31/16 16:27 Morphine Sulfate (Morphine) 1 mg IVP Q4HR PRN PRN Reason: Pain (Moderate) Stop: 09/16/16 00:08 Last Admin: 07/18/16 00:28 Dose: 1 mg Morphine Sulfate (Morphine) 3 mg IV Q4HR PRN PRN Reason: Pain (Severe) Stop: 09/16/16 00:34 Ondansetron HCl (Zofran Odt) 4 mg PO Q6HR PRN PRN Reason: Nausea / Vomiting Stop: 08/22/16 20:30 Pantoprazole Sodium (Protonix) 40 mg PO DAILY [facility] Stop: 08/23/16 08:59 Last Admin: 07/18/16 09:30 Dose: 40 mg Quetiapine Fumarate (Seroquel) 100 mg PO TID [facility] PRN Reason: Protocol Stop: 08/26/16 08:59 Last Admin: 07/18/16 09:30 Dose: 100 mg Vitamin B Complex/Vit C/Folic Acid (Vitamin B Complex W/Vitamin C) 1 tab PO DAILY [facility] Stop: 08/23/16 08:59 Last Admin: 07/18/16 09:30 Dose: 1 tab General: Alert, no Cooperative (uncooperative) HEENT: Atraumatic, Mucous membr. moist/pink Neck: Supple, +2 carotid pulse wo bruit Cardiovascular: Regular rate, Normal S1, Normal S2 Lungs: Other (few rhonchi) Abdomen: Bowel sounds, Soft Extremities: Edema ((+) 3 bipedal edema) Neurological: Sensation intact Skin: no Rash - Procedures Procedures: Procedures Procedure Code Date ARTERY-VEIN NONAUTOGRAFT 27183 06/22/16 BYPASS L BRACH ART TO UP ARM VEIN W NONAUT SUB, OPEN [id number] 06/22/16 FLUOROSCOPY OF SUP VENA CAVA USING [facility] CONTRAST, GUIDANCE [id number] 06/22/16 INSERTION OF INFUSION DEV INTO SUP VENA CAVA, PERC APPROACH [id number] 06/22/[address] PL[address] CATHETER IN VEIN [address] 06/22/16 Assessment/Plan - Problem List Patient Problems: All Active Problems MEDICAL EVALUATION PER DR FRY (Acute) - Assessment Assessment: esrd on hd persistent cellulitis b/l lower ext acute on chronic anemia possible gi bleed ohs chronic a. fib hypothyroid anasarca functional quadriplegia chronic venous stasis dermatitis acute decomp psychosis hypokalemia, hypomagnesemia s/p left avg - Plan Plan: hgb/hct slightly improved to 8.2/24.8 agree w/ K replacement pt. was dialyzed yesterday & tolerated it well placement in progress continue psych meds
--- NOTE | 2016-07-18 20:08 | Discharge Summary ---
CHIEF COMPLAINT: Cellulitis. HISTORY OF PRESENT ILLNESS AND HOSPITAL COURSE: The patient is a 51-year-old male with past medical history of CKD stage V ____ cirrhosis, morbid obesity, cellulitis, lymphedema, hepatitis C and sleep apnea, recently admitted to [facility] and he was discharged to nursing facility. Unfortunately, the patient was brought back to [facility]. Over the time, the patient was started on antibiotics, which was discontinued appropriately. The patient had prolonged stay because of placement issue. Otherwise, the patient is doing okay at this time, asymptomatic. DISCHARGE CONDITION: Stable. DISCHARGE DIAGNOSES: Cellulitis, hepatitis C, cirrhosis, CKD stage V,On HD, liver failure, obesity and sleep apnea. CONSULTANTS CALLED: Dr. Horne for renal, Dr. Gutierrez for psyche and GI, Dr. Leal. DISCHARGE DISPOSITION: SNF. JOB# [id number] [email or web address]
[2016-07-19] MEDS: Diltiazem 30 mg Tab PO SCH ×4 (01:00→18:18)
[2016-07-19] MEDS: Lactulose 10 Gm/15 mL 30mL UDC PO SCH ×3 (05:40→21:23)
[2016-07-19] MEDS: Levothyroxine 0.05 Mg Tab PO SCH (06:47)
[2016-07-19] MEDS: Pantoprazole 40 mg EC Tab PO SCH (09:39)
[2016-07-19] MEDS: Aspirin 325 mg EC PO SCH (09:39)
[2016-07-19] MEDS: Ammonium Lactate Cream 140 gm Tube TP SCH ×2 (09:40→16:32)
[2016-07-19] MEDS: Vitamin B Complex w/Vitamin C Tab PO SCH (09:40)
[2016-07-19 10:11] LABS: HEMOGLOBIN 7.2 gm/dL (13.2-17.3); RED BLOOD COUNT 2.53 Mil/cmm (4.30-5.70); WHITE BLOOD COUNT 4.5 Th/cmm (4.8-10.8)
[2016-07-19 10:12] LABS: HEMATOCRIT 21.7 % (39.0-49.0); MEAN CELL VOLUME 85.6 fl (80-99); MEAN CORPUSCULAR HEMOGLOBIN 28.2 pg (26.0-30.0); PLATELET COUNT 141 Th/cmm (150-400)
[2016-07-19 10:26] LABS: ANION GAP 11.8 (7.0-16.0); CALCIUM SERUM 9.5 mg/dL (8.6-10.3); CARBON DIOXIDE 25.4 mEq/L (21.0-31.0); PHOSPHOROUS 5.5 mg/dL (2.5-5.0); POTASSIUM SERUM 4.2 mEq/L (3.5-5.1)
[2016-07-19 10:30] LABS: ANISOCYTOSIS 1+; BAND NEUTROPHILE 2 % (0-10); EOSINOPHIL 11 % (0-5); NEUTROPHILS 67 % (40-80); PLATELET ESTIMATE DECREASED PLATELETS (NORMAL); PLATELET MORPHOLOGY GIANT PLATELETS SEEN (NORMAL); TOTAL CELLS COUNTED 100
[2016-07-19] MEDS: Menthol/Zinc Oxide Oint 113gm Tube TP SCH ×4 (10:57→21:00)
--- NOTE | 2016-07-19 18:27 | General Progress Note ---
Subjective - Review of Systems Service Date: 07/19/16 Subjective: no change in behaviour Objective - Results Result Diagrams: 07/19/16 09:50 07/19/16 09:50 Recent Labs: Laboratory Last Values WBC 4.5 Th/cmm (4.8-10.8) L 07/19/16 09:50 RBC 2.53 Mil/cmm (4.30-5.70) L 07/19/16 09:50 Hgb 7.2 gm/dL (13.2-17.3) L* 07/19/16 09:50 Hct 21.7 % (39.0-49.0) L* D 07/19/16 09:50 MCV 85.6 fl (80-99) 07/19/16 09:50 MCH 28.2 pg (26.0-30.0) 07/19/16 09:50 MCHC Differential 33.0 pg (28.0-36.0) 07/19/16 09:50 RDW 15.0 % (11.5-20.0) 07/19/16 09:50 Plt Count 141 Th/cmm (150-400) L 07/19/16 09:50 MPV 9.0 fl 07/19/16 09:50 Neutrophils % 56.8 % (40.0-80.0) 07/07/16 06:00 Band Neutrophils % 2 % (0-10) 07/19/16 09:50 Lymphocytes % 18.4 % (20.0-50.0) L 07/07/16 06:00 Monocytes % 13.8 % (2.0-10.0) H 07/07/16 06:00 Eosinophils % 11.0 % (0.0-5.0) H 07/07/16 06:00 Basophils % 0.0 % (0.0-2.0) 07/07/16 06:00 Neutrophils (Manual) 67 % (40-80) 07/19/16 09:50 Lymphocytes 12 % (20-50) L 07/19/16 09:50 Monocytes 8 % (2-10) 07/19/16 09:50 Eosinophils 11 % (0-5) H 07/19/16 09:50 Basophils 2 % (0-3) 07/05/16 12:15 Myelocytes 1 % 07/14/16 16:00 Hypochromia 1+ 06/22/16 19:33 Platelet Estimate DECREASED PLATELETS (NORMAL) 07/19/16 09:50 Platelet Morphology GIANT PLATELETS SEEN (NORMAL) 07/19/16 09:50 Polychromasia 1+ 07/03/16 05:30 Anisocytosis 1+ 07/19/16 09:50 Microcytosis 1+ 07/14/16 16:00 RBC Morph Micro Appear ABNORMAL (NORMAL) 07/19/16 09:50 PT 12.7 SECONDS (9.5-11.5) H 07/01/16 06:57 INR 1.26 (0.5-1.4) 07/01/16 06:57 PTT (Actin FS) 28.3 SECONDS (26.0-38.0) 06/28/16 04:38 Specimen Source art 06/22/16 20:03 Sample Site Right Radial 06/22/16 20:03 pH 7.49 (7.35-7.45) H 06/22/16 20:03 pCO2 34.0 mmHg (35.0-45.0) L 06/22/16 20:03 pO2 97.0 mmHg (80.0-100.0) 06/22/16 20:03 HCO3 25.9 mmol/L (20.0-26.0) 06/22/16 20:03 Base Excess 2.8 mmol/L (-3.0-3.0) 06/22/16 20:03 O2 Saturation 98.0 % (92.0-100.0) 06/22/16 20:03 Estuardo Test P 06/22/16 20:03 Vent Rate NA 06/22/16 20:03 Inspired O2 21 06/22/16 20:03 Tidal Volume NA 06/22/16 20:03 PEEP NA 06/22/16 20:03 Pressure (ins/psv/peep) NA 06/22/16 20:03 Critical Value RPINEIRA 06/22/16 20:03 Sodium 128 mEq/L (136-145) L 07/19/16 09:50 Potassium 4.2 mEq/L (3.5-5.1) 07/19/16 09:50 Chloride 95 mEq/L (98-107) L 07/19/16 09:50 Carbon Dioxide 25.4 mEq/L (21.0-31.0) 07/19/16 09:50 Anion Gap 11.8 (7.0-16.0) 07/19/16 09:50 BUN 65 mg/dL (7-25) H 07/19/16 09:50 Creatinine 5.0 mg/dL (0.7-1.3) H* 07/19/16 09:50 Est GFR ( Amer) 15.9 ml/min (>90) 07/19/16 09:50 Est GFR (Non-Af Amer) 13.2 ml/min 07/19/16 09:50 BUN/Creatinine Ratio 13.0 07/19/16 09:50 Glucose 134 mg/dL (70-105) H 07/19/16 09:50 Calcium 9.5 mg/dL (8.6-10.3) 07/19/16 09:50 Phosphorus 5.5 mg/dL (2.5-5.0) H 07/19/16 09:50 Magnesium 2.0 mg/dL (1.9-2.7) 07/07/16 06:00 Iron 42 ug/dL (38-169) 06/28/16 04:38 TIBC 269 ug/dL (250-450) 06/28/16 04:38 Iron Saturation 16 % (15-55) 06/28/16 04:38 Unsaturated IBC 227 ug/dL (111-343) 06/28/16 04:38 Ferritin 150 ng/mL (30-400) 06/26/16 08:30 Total Bilirubin 0.9 mg/dL (0.3-1.0) 07/14/16 06:45 Direct Bilirubin 0.70 mg/dL (0.0-0.2) H 06/28/16 04:38 GGTP 14 IU/L (0-65) 06/28/16 04:38 AST 27 U/L (13-39) 07/14/16 06:45 ALT 8 U/L (7-52) 07/14/16 06:45 Alkaline Phosphatase 42 U/L (34-104) 07/14/16 06:45 Ammonia 105 umol/L (16-53) H 07/02/16 06:40 Troponin I < 0.01 ng/mL (0.01-0.05) L 06/22/16 19:33 B-Natriuretic Peptide 668.0 pg/mL (5.0-100.0) H 06/22/16 19:33 Total Protein 7.7 gm/dL (6.0-8.3) 07/14/16 06:45 Albumin 2.8 gm/dL (4.2-5.5) L 07/14/16 06:45 Globulin 4.9 gm/dL 07/14/16 06:45 Albumin/Globulin Ratio 0.6 (1.0-1.8) L 07/14/16 06:45 Amylase 28 U/L (29-103) L 07/02/16 06:40 Lipase 31 U/L (11-82) 07/02/16 06:40 Urine Source CLEAN C 06/29/16 05:55 Urine Color YELLOW 06/29/16 05:55 Urine Clarity HAZY (CLEAR) 06/29/16 05:55 Urine pH 5.5 06/29/16 05:55 Ur Specific [place] 1.015 (1.005-1.030) 06/29/16 05:55 Urine Protein 30 mg/dL (NEGATIVE) H 06/29/16 05:55 Urine Glucose (UA) NEGATIVE mg/dL (NEGATIVE) 06/29/16 05:55 Urine Ketones NEGATIVE mg/dL (NEGATIVE) 06/29/16 05:55 Urine Blood NEGATIVE (NEGATIVE) 06/29/16 05:55 Urine Nitrate NEGATIVE (NEGATIVE) 06/29/16 05:55 Urine Bilirubin NEGATIVE (NEGATIVE) 06/29/16 05:55 Urine Urobilinogen 0.2 E.U./dL (0.2 - 1.0) 06/29/16 05:55 Ur Leukocyte Esterase TRACE (NEGATIVE) H 06/29/16 05:55 Urine RBC 0-2 /hpf (0-5) H 06/29/16 05:55 Urine WBC 6-10 /hpf (0-5) H 06/29/16 05:55 Ur Epithelial Cells FEW /lpf (FEW) 06/29/16 05:55 Urine Bacteria MANY /hpf (NONE SEEN) 06/29/16 05:55 Stool Occult Blood POSITIVE (NEGATIVE) 06/24/16 16:00 Random Vancomycin 13.4 ug/mL (5.0-40.0) 06/28/16 04:38 RPR NONREACTIVE (NONREACTIVE) 06/22/16 19:33 Hepatitis A IgM Ab Negative (Negative) 06/29/16 05:49 Hep Bs Antigen Negative (Negative) 06/29/16 05:49 Hep B Core IgM Ab Negative (Negative) 06/29/16 05:49 Hepatitis C Antibody >11.0 s/co ratio (0.0-0.9) H 06/29/16 05:49 Blood Type A POSITIVE 07/19/16 11:05 Antibody Screen NEGATIVE 07/19/16 11:05 Crossmatch See Detail 07/19/16 11:05 - Physical Exam Vitals and I&O: Vital Signs Temp 98.4 F 07/19/16 11:47 Pulse 90 07/19/16 18:18 Resp 19 07/19/16 11:47 BP 102/52 07/19/16 16:35 Pulse Ox 97 07/19/16 11:47 Intake & Output 07/18/16 07/19/16 07/19/16 18:59 06:59 18:59 Intake Total 720 500 Output Total 400 Balance 320 500 Intake: Oral 720 500 Output: Urine 400 Other: # Bowel Movements 2 Active Medications: Current Medications Acetaminophen (Tylenol) 325 mg PO Q6HR PRN PRN Reason: Mild Pain or Fever >101 Stop: 08/22/16 20:30 Albuterol/Ipratropium (Duoneb Neb) 3 ml HHN Q2HR PRN PRN Reason: Shortness of Breath or Wheeze Stop: 09/08/16 09:51 Aspirin (Ecotrin) 325 mg PO DAILY [facility] Stop: 09/03/16 09:14 Last Admin: 07/19/16 09:39 Dose: 325 mg Calamine/Phenol (Calmoseptine) 1 appl TP QID PRN PRN Reason: Skin Irritation Stop: 09/08/16 18:33 Calamine/Phenol (Calmoseptine) 1 appl TP QID [facility] Stop: 09/08/16 20:59 Last Admin: 07/19/16 16:37 Dose: Not Given Carvedilol (Coreg) 12.5 mg PO BID [facility] Stop: 09/05/16 16:59 Last Admin: 07/19/16 16:35 Dose: Not Given Cholecalciferol (Vitamin D3) 2,000 iu PO DAILY [facility] Stop: 08/23/16 08:59 Last Admin: 07/19/16 09:39 Dose: 2,000 iu Diltiazem HCl (Cardizem) 60 mg PO Q6HR [facility] Stop: 09/04/16 11:59 Last Admin: 07/19/16 18:18 Dose: Not Given Diphenhydramine HCl (Benadryl 50 Mg/Ml) 50 mg IM Q8HR PRN PRN Reason: Agitation Stop: 08/25/16 12:10 Docusate Sodium (Colace) 100 mg PO Q12HR [facility] Stop: 09/16/16 08:59 Last Admin: 07/19/16 09:39 Dose: 100 mg Haloperidol Lactate (Haldol) 5 mg IM Q8HR PRN PRN Reason: Agitation Stop: 08/25/16 12:10 Heparin Sodium (Porcine) (Heparin) 4,000 units HD UD [facility] Stop: 07/20/16 15:59 Lactic Acid (Lac-Hydrin Cream) 1 appl TP BID [facility] Stop: 09/12/16 08:59 Last Admin: 07/19/16 16:32 Dose: Not Given Lactulose (Cephulac) 20 gm PO Q8HR [facility] Stop: 09/16/16 04:59 Last Admin: 07/19/16 12:49 Dose: Not Given Levothyroxine Sodium (Synthroid) 0.05 mg PO QDAC [facility] Stop: 08/23/16 07:29 Last Admin: 07/19/16 06:47 Dose: Not Given Miscellaneous (Clinical Monitoring) 1 ea MC PRN PRN PRN Reason: RENAL DOSING Stop: 08/31/16 16:27 Morphine Sulfate (Morphine) 1 mg IVP Q4HR PRN PRN Reason: Pain (Moderate) Stop: 09/16/16 00:08 Last Admin: 07/18/16 00:28 Dose: 1 mg Morphine Sulfate (Morphine) 3 mg IV Q4HR PRN PRN Reason: Pain (Severe) Stop: 09/16/16 00:34 Ondansetron HCl (Zofran Odt) 4 mg PO Q6HR PRN PRN Reason: Nausea / Vomiting Stop: 08/22/16 20:30 Pantoprazole Sodium (Protonix) 40 mg PO DAILY [facility] Stop: 08/23/16 08:59 Last Admin: 07/19/16 09:39 Dose: 40 mg Quetiapine Fumarate (Seroquel) 100 mg PO TID [facility] PRN Reason: Protocol Stop: 08/26/16 08:59 Last Admin: 07/19/16 14:34 Dose: Not Given Vitamin B Complex/Vit C/Folic Acid (Vitamin B Complex W/Vitamin C) 1 tab PO DAILY [facility] Stop: 08/23/16 08:59 Last Admin: 07/19/16 09:40 Dose: 1 tab General: Alert, Other (uncooperative), no Cooperative HEENT: Atraumatic, Mucous membr. moist/pink Neck: Supple, +2 carotid pulse wo bruit Cardiovascular: Regular rate, Normal S1, Normal S2 Lungs: Other (few rhonchi) Abdomen: Bowel sounds, Soft Extremities: Edema ((+) 3 bipedal edema, upper ext. edema) Neurological: Sensation intact Skin: no Rash Psych/Mental Status: Other (uncooperative) - Procedures Procedures: Procedures Procedure Code Date ARTERY-VEIN NONAUTOGRAFT 08908 06/22/16 BYPASS L BRACH ART TO UP ARM VEIN W NONAUT SUB, OPEN [id number] 06/22/16 FLUOROSCOPY OF SUP VENA CAVA USING [facility] CONTRAST, GUIDANCE [id number] 06/22/16 INSERTION OF INFUSION DEV INTO SUP VENA CAVA, PERC APPROACH [id number] 06/22/16 PLACE CATHETER IN VEIN [address] 06/22/16 Assessment/Plan - Problem List Patient Problems: All Active Problems MEDICAL EVALUATION PER DR FRY (Acute) - Assessment Assessment: esrd on hd persistent cellulitis b/l lower ext acute on chronic anemia possible gi bleed ohs chronic a. fib hypothyroid anasarca functional quadriplegia chronic venous stasis dermatitis acute decomp psychosis hypokalemia, hypomagnesemia s/p left avg - Plan Plan: hgb/hct slightly improved to 8.2/24.8 Lab - Result Diagrams 07/19/16 09:50 07/19/16 09:50 latest hgb/hct were 7.2/21.7, transfuse w/ dialysis scheduled for hd today placement in progress continue psych meds
--- NOTE | 2016-07-19 21:05 | Progress Notes ---
SUBJECTIVE: The patient was seen in his room. The patient is still agitated, but the patient was informed that there is already a pending placement for him to go to a senior living facility. They are just waiting for bariatric bed to be delivered to the facility, and hopefully, the patient will be discharged anytime within the week. OBJECTIVE: HEENT: Head is atraumatic and normocephalic. Bilateral eyes: Pupils are equally round and reactive. CARDIOVASCULAR: S1 and S2, without murmurs. LUNGS: Mild end-inspiratory wheezing. GASTROINTESTINAL: Soft and nontender. Positive bowel sounds. No guarding. The patient is obese. EXTREMITIES: Bilateral lower extremity edema. ASSESSMENT: 1. End-stage renal disease, hemodialysis dependent. 2. Chronic anemia. 3. Chronic atrial fibrillation. 4. Lymphedema, bilateral lower extremities. 5. Cellulitis of the bilateral lower extremities, treated. 6. Hypothyroidism. 7. Quadriplegia. 8. Obesity. 9. Schizophrenia. PLAN: We will follow up with the pediatric social worker and case investigator regarding the pending placement for the senior living facility. JOB# [id number]
[2016-07-19] MEDS: Morphine Sulfate 2 mg/mL 1mL Syr IVP PRN (21:48)
[2016-07-20] MEDS: Morphine Sulfate 2 mg/mL 1mL Syr IVP PRN ×4 (03:37→23:48)
[2016-07-20] MEDS: Diltiazem 30 mg Tab PO SCH ×5 (06:32→23:54)
[2016-07-20 07:08] LABS: ANION GAP 11.5 (7.0-16.0); BUN/CREATININE RATIO 12.6; CALCIUM SERUM 9.3 mg/dL (8.6-10.3); CARBON DIOXIDE 27.2 mEq/L (21.0-31.0); POTASSIUM SERUM 3.7 mEq/L (3.5-5.1)
[2016-07-20 07:27] LABS: CREATININE - SERUM 4.3 mg/dL (0.7-1.3)
[2016-07-20] MEDS: Pantoprazole 40 mg EC Tab PO SCH (08:57)
[2016-07-20] MEDS: Vitamin B Complex w/Vitamin C Tab PO SCH (08:57)
[2016-07-20] MEDS: Levothyroxine 0.05 Mg Tab PO SCH (08:58)
[2016-07-20] MEDS: Aspirin 325 mg EC PO SCH (09:00)
[2016-07-20] MEDS: Menthol/Zinc Oxide Oint 113gm Tube TP PRN ×2 (09:01→09:09)
[2016-07-20] MEDS: Menthol/Zinc Oxide Oint 113gm Tube TP SCH ×3 (09:10→18:20)
[2016-07-20] MEDS: Ammonium Lactate Cream 140 gm Tube TP SCH ×2 (12:10→18:19)
[2016-07-20] MEDS: Lactulose 10 Gm/15 mL 30mL UDC PO SCH ×2 (12:11→22:12)
--- NOTE | 2016-07-20 13:45 | General Progress Note ---
Subjective - Review of Systems Service Date: 07/20/16 Subjective: no change in behaviour Objective - Results Result Diagrams: 07/19/16 09:50 07/20/16 05:50 Recent Labs: Laboratory Last Values WBC 4.5 Th/cmm (4.8-10.8) L 07/19/16 09:50 RBC 2.53 Mil/cmm (4.30-5.70) L 07/19/16 09:50 Hgb 7.2 gm/dL (13.2-17.3) L* 07/19/16 09:50 Hct 21.7 % (39.0-49.0) L* D 07/19/16 09:50 MCV 85.6 fl (80-99) 07/19/16 09:50 MCH 28.2 pg (26.0-30.0) 07/19/16 09:50 MCHC Differential 33.0 pg (28.0-36.0) 07/19/16 09:50 RDW 15.0 % (11.5-20.0) 07/19/16 09:50 Plt Count 141 Th/cmm (150-400) L 07/19/16 09:50 MPV 9.0 fl 07/19/16 09:50 Neutrophils % 56.8 % (40.0-80.0) 07/07/16 06:00 Band Neutrophils % 2 % (0-10) 07/19/16 09:50 Lymphocytes % 18.4 % (20.0-50.0) L 07/07/16 06:00 Monocytes % 13.8 % (2.0-10.0) H 07/07/16 06:00 Eosinophils % 11.0 % (0.0-5.0) H 07/07/16 06:00 Basophils % 0.0 % (0.0-2.0) 07/07/16 06:00 Neutrophils (Manual) 67 % (40-80) 07/19/16 09:50 Lymphocytes 12 % (20-50) L 07/19/16 09:50 Monocytes 8 % (2-10) 07/19/16 09:50 Eosinophils 11 % (0-5) H 07/19/16 09:50 Basophils 2 % (0-3) 07/05/16 12:15 Myelocytes 1 % 07/14/16 16:00 Hypochromia 1+ 06/22/16 19:33 Platelet Estimate DECREASED PLATELETS (NORMAL) 07/19/16 09:50 Platelet Morphology GIANT PLATELETS SEEN (NORMAL) 07/19/16 09:50 Polychromasia 1+ 07/03/16 05:30 Anisocytosis 1+ 07/19/16 09:50 Microcytosis 1+ 07/14/16 16:00 RBC Morph Micro Appear ABNORMAL (NORMAL) 07/19/16 09:50 PT 12.7 SECONDS (9.5-11.5) H 07/01/16 06:57 INR 1.26 (0.5-1.4) 07/01/16 06:57 PTT (Actin FS) 28.3 SECONDS (26.0-38.0) 06/28/16 04:38 Specimen Source art 06/22/16 20:03 Sample Site Right Radial 06/22/16 20:03 pH 7.49 (7.35-7.45) H 06/22/16 20:03 pCO2 34.0 mmHg (35.0-45.0) L 06/22/16 20:03 pO2 97.0 mmHg (80.0-100.0) 06/22/16 20:03 HCO3 25.9 mmol/L (20.0-26.0) 06/22/16 20:03 Base Excess 2.8 mmol/L (-3.0-3.0) 06/22/16 20:03 O2 Saturation 98.0 % (92.0-100.0) 06/22/16 20:03 Estuardo Test P 06/22/16 20:03 Vent Rate NA 06/22/16 20:03 Inspired O2 21 06/22/16 20:03 Tidal Volume NA 06/22/16 20:03 PEEP NA 06/22/16 20:03 Pressure (ins/psv/peep) NA 06/22/16 20:03 Critical Value RPINEIRA 06/22/16 20:03 Sodium 132 mEq/L (136-145) L 07/20/16 05:50 Potassium 3.7 mEq/L (3.5-5.1) 07/20/16 05:50 Chloride 97 mEq/L (98-107) L 07/20/16 05:50 Carbon Dioxide 27.2 mEq/L (21.0-31.0) 07/20/16 05:50 Anion Gap 11.5 (7.0-16.0) 07/20/16 05:50 BUN 54 mg/dL (7-25) H 07/20/16 05:50 Creatinine 4.3 mg/dL (0.7-1.3) H* 07/20/16 05:50 Est GFR ( Amer) 19.0 ml/min (>90) 07/20/16 05:50 Est GFR (Non-Af Amer) 15.7 ml/min 07/20/16 05:50 BUN/Creatinine Ratio 12.6 07/20/16 05:50 Glucose 98 mg/dL (70-105) 07/20/16 05:50 Calcium 9.3 mg/dL (8.6-10.3) 07/20/16 05:50 Phosphorus 5.5 mg/dL (2.5-5.0) H 07/19/16 09:50 Magnesium 2.0 mg/dL (1.9-2.7) 07/07/16 06:00 Iron 42 ug/dL (38-169) 06/28/16 04:38 TIBC 269 ug/dL (250-450) 06/28/16 04:38 Iron Saturation 16 % (15-55) 06/28/16 04:38 Unsaturated IBC 227 ug/dL (111-343) 06/28/16 04:38 Ferritin 150 ng/mL (30-400) 06/26/16 08:30 Total Bilirubin 0.9 mg/dL (0.3-1.0) 07/14/16 06:45 Direct Bilirubin 0.70 mg/dL (0.0-0.2) H 06/28/16 04:38 GGTP 14 IU/L (0-65) 06/28/16 04:38 AST 27 U/L (13-39) 07/14/16 06:45 ALT 8 U/L (7-52) 07/14/16 06:45 Alkaline Phosphatase 42 U/L (34-104) 07/14/16 06:45 Ammonia 105 umol/L (16-53) H 07/02/16 06:40 Troponin I < 0.01 ng/mL (0.01-0.05) L 06/22/16 19:33 B-Natriuretic Peptide 668.0 pg/mL (5.0-100.0) H 06/22/16 19:33 Total Protein 7.7 gm/dL (6.0-8.3) 07/14/16 06:45 Albumin 2.8 gm/dL (4.2-5.5) L 07/14/16 06:45 Globulin 4.9 gm/dL 07/14/16 06:45 Albumin/Globulin Ratio 0.6 (1.0-1.8) L 07/14/16 06:45 Amylase 28 U/L (29-103) L 07/02/16 06:40 Lipase 31 U/L (11-82) 07/02/16 06:40 Urine Source CLEAN C 06/29/16 05:55 Urine Color YELLOW 06/29/16 05:55 Urine Clarity HAZY (CLEAR) 06/29/16 05:55 Urine pH 5.5 06/29/16 05:55 Ur Specific [place] 1.015 (1.005-1.030) 06/29/16 05:55 Urine Protein 30 mg/dL (NEGATIVE) H 06/29/16 05:55 Urine Glucose (UA) NEGATIVE mg/dL (NEGATIVE) 06/29/16 05:55 Urine Ketones NEGATIVE mg/dL (NEGATIVE) 06/29/16 05:55 Urine Blood NEGATIVE (NEGATIVE) 06/29/16 05:55 Urine Nitrate NEGATIVE (NEGATIVE) 06/29/16 05:55 Urine Bilirubin NEGATIVE (NEGATIVE) 06/29/16 05:55 Urine Urobilinogen 0.2 E.U./dL (0.2 - 1.0) 06/29/16 05:55 Ur Leukocyte Esterase TRACE (NEGATIVE) H 06/29/16 05:55 Urine RBC 0-2 /hpf (0-5) H 06/29/16 05:55 Urine WBC 6-10 /hpf (0-5) H 06/29/16 05:55 Ur Epithelial Cells FEW /lpf (FEW) 06/29/16 05:55 Urine Bacteria MANY /hpf (NONE SEEN) 06/29/16 05:55 Stool Occult Blood POSITIVE (NEGATIVE) 06/24/16 16:00 Random Vancomycin 13.4 ug/mL (5.0-40.0) 06/28/16 04:38 RPR NONREACTIVE (NONREACTIVE) 06/22/16 19:33 Hepatitis A IgM Ab Negative (Negative) 06/29/16 05:49 Hep Bs Antigen Negative (Negative) 06/29/16 05:49 Hep B Core IgM Ab Negative (Negative) 06/29/16 05:49 Hepatitis C Antibody >11.0 s/co ratio (0.0-0.9) H 06/29/16 05:49 Blood Type A POSITIVE 07/19/16 11:05 Antibody Screen NEGATIVE 07/19/16 11:05 Crossmatch See Detail 07/19/16 11:05 - Physical Exam Vitals and I&O: Vital Signs Temp 98.8 F 07/20/16 11:58 Pulse 70 07/20/16 12:11 Resp 20 07/20/16 11:58 BP 112/71 07/20/16 11:58 Pulse Ox 98 07/20/16 11:58 Intake & Output 07/19/16 07/20/16 07/20/16 18:59 06:59 18:59 Intake Total 1000 Output Total 800 Balance 200 Intake: Oral 1000 Output: Urine 800 Other: # Bowel Movements 1 Stool Characteristics Formed Formed Brown Brown Active Medications: Current Medications Acetaminophen (Tylenol) 325 mg PO Q6HR PRN PRN Reason: Mild Pain or Fever >101 Stop: 08/22/16 20:30 Albuterol/Ipratropium (Duoneb Neb) 3 ml HHN Q2HR PRN PRN Reason: Shortness of Breath or Wheeze Stop: 09/08/16 09:51 Aspirin (Ecotrin) 325 mg PO DAILY [facility] Stop: 09/03/16 09:14 Last Admin: 07/20/16 09:00 Dose: 325 mg Calamine/Phenol (Calmoseptine) 1 appl TP QID PRN PRN Reason: Skin Irritation Stop: 09/08/16 18:33 Last Admin: 07/20/16 09:09 Dose: 1 appl Calamine/Phenol (Calmoseptine) 1 appl TP QID [facility] Stop: 09/08/16 20:59 Last Admin: 07/20/16 12:11 Dose: 1 appl Carvedilol (Coreg) 12.5 mg PO BID [facility] Stop: 09/05/16 16:59 Last Admin: 07/20/16 08:59 Dose: 12.5 mg Cholecalciferol (Vitamin D3) 2,000 iu PO DAILY [facility] Stop: 08/23/16 08:59 Last Admin: 07/20/16 09:03 Dose: 2,000 iu Diltiazem HCl (Cardizem) 60 mg PO Q6HR [facility] Stop: 09/04/16 11:59 Last Admin: 07/20/16 12:11 Dose: Not Given Diphenhydramine HCl (Benadryl 50 Mg/Ml) 50 mg IM Q8HR PRN PRN Reason: Agitation Stop: 08/25/16 12:10 Docusate Sodium (Colace) 100 mg PO Q12HR [facility] Stop: 09/16/16 08:59 Last Admin: 07/20/16 08:57 Dose: 100 mg Haloperidol Lactate (Haldol) 5 mg IM Q8HR PRN PRN Reason: Agitation Stop: 08/25/16 12:10 Heparin Sodium (Porcine) (Heparin) 4,000 units HD UD [facility] Stop: 07/20/16 15:59 Last Admin: 07/20/16 08:58 Dose: 4,000 units Lactic Acid (Lac-Hydrin Cream) 1 appl TP BID [facility] Stop: 09/12/16 08:59 Last Admin: 07/20/16 12:10 Dose: 1 appl Lactulose (Cephulac) 20 gm PO Q8HR [facility] Stop: 09/16/16 04:59 Last Admin: 07/20/16 12:11 Dose: Not Given Levothyroxine Sodium (Synthroid) 0.05 mg PO QDAC [facility] Stop: 08/23/16 07:29 Last Admin: 07/20/16 08:58 Dose: 0.05 mg Miscellaneous (Clinical Monitoring) 1 ea MC PRN PRN PRN Reason: RENAL DOSING Stop: 08/31/16 16:27 Morphine Sulfate (Morphine) 1 mg IVP Q4HR PRN PRN Reason: Pain (Moderate) Stop: 09/16/16 00:08 Last Admin: 07/20/16 09:00 Dose: 1 mg Morphine Sulfate (Morphine) 3 mg IV Q4HR PRN PRN Reason: Pain (Severe) Stop: 09/16/16 00:34 Ondansetron HCl (Zofran Odt) 4 mg PO Q6HR PRN PRN Reason: Nausea / Vomiting Stop: 08/22/16 20:30 Pantoprazole Sodium (Protonix) 40 mg PO DAILY [facility] Stop: 08/23/16 08:59 Last Admin: 07/20/16 08:57 Dose: 40 mg Quetiapine Fumarate (Seroquel) 100 mg PO TID [facility] PRN Reason: Protocol Stop: 08/26/16 08:59 Last Admin: 07/20/16 09:08 Dose: Not Given Vitamin B Complex/Vit C/Folic Acid (Vitamin B Complex W/Vitamin C) 1 tab PO DAILY [facility] Stop: 08/23/16 08:59 Last Admin: 07/20/16 08:57 Dose: 1 tab General: Alert, no Cooperative HEENT: Atraumatic, Mucous membr. moist/pink Neck: Supple, +2 carotid pulse wo bruit Cardiovascular: Regular rate, Normal S1, Normal S2 Lungs: Other (few rhonchi) Abdomen: Bowel sounds, Soft Extremities: Edema ((+) 3 bipedal edema, upper ext edema) Neurological: Sensation intact Skin: no Rash - Procedures Procedures: Procedures Procedure Code Date ARTERY-VEIN NONAUTOGRAFT 25249 06/22/16 BYPASS L BRACH ART TO UP ARM VEIN W NONAUT SUB, OPEN [id number] 06/22/16 FLUOROSCOPY OF SUP VENA CAVA USING [facility] CONTRAST, GUIDANCE [id number] 06/22/16 INSERTION OF INFUSION DEV INTO SUP VENA CAVA, PERC APPROACH [id number] 06/22/[address] PL[address] CATHETER IN VEIN [address]31 06/22/16 Assessment/Plan - Problem List Patient Problems: All Active Problems MEDICAL EVALUATION PER DR FRY (Acute) - Assessment Assessment: esrd on hd persistent cellulitis b/l lower ext acute on chronic anemia possible gi bleed ohs chronic a. fib hypothyroid anasarca functional quadriplegia chronic venous stasis dermatitis acute decomp psychosis hypokalemia, hypomagnesemia s/p left avg - Plan Plan: hgb/hct slightly improved to 8.2/24.8 Lab - Result Diagrams 07/19/16 09:50 07/19/16 09:50 latest hgb/hct were 7.2/21.7, f/u cbc scheduled for hd in am placement in progress continue psych meds Lab - Result Diagrams 07/19/16 09:50 07/20/16 05:50
--- NOTE | 2016-07-20 23:39 | Infectious Disease Prog Note ---
Infectious Disease Subjective - Review of Systems Service Date: 07/20/16 Subjective: No change. Infectious Disease Objective - Results Result Diagrams: 07/21/16 19:55 07/20/16 05:50 Recent Labs: Laboratory Last Values WBC 4.5 Th/cmm (4.8-10.8) L 07/19/16 09:50 RBC 2.53 Mil/cmm (4.30-5.70) L 07/19/16 09:50 Hgb 7.2 gm/dL (13.2-17.3) L* 07/19/16 09:50 Hct 21.7 % (39.0-49.0) L* D 07/19/16 09:50 MCV 85.6 fl (80-99) 07/19/16 09:50 MCH 28.2 pg (26.0-30.0) 07/19/16 09:50 MCHC Differential 33.0 pg (28.0-36.0) 07/19/16 09:50 RDW 15.0 % (11.5-20.0) 07/19/16 09:50 Plt Count 141 Th/cmm (150-400) L 07/19/16 09:50 MPV 9.0 fl 07/19/16 09:50 Neutrophils % 56.8 % (40.0-80.0) 07/07/16 06:00 Band Neutrophils % 2 % (0-10) 07/19/16 09:50 Lymphocytes % 18.4 % (20.0-50.0) L 07/07/16 06:00 Monocytes % 13.8 % (2.0-10.0) H 07/07/16 06:00 Eosinophils % 11.0 % (0.0-5.0) H 07/07/16 06:00 Basophils % 0.0 % (0.0-2.0) 07/07/16 06:00 Neutrophils (Manual) 67 % (40-80) 07/19/16 09:50 Lymphocytes 12 % (20-50) L 07/19/16 09:50 Monocytes 8 % (2-10) 07/19/16 09:50 Eosinophils 11 % (0-5) H 07/19/16 09:50 Basophils 2 % (0-3) 07/05/16 12:15 Myelocytes 1 % 07/14/16 16:00 Hypochromia 1+ 06/22/16 19:33 Platelet Estimate DECREASED PLATELETS (NORMAL) 07/19/16 09:50 Platelet Morphology GIANT PLATELETS SEEN (NORMAL) 07/19/16 09:50 Polychromasia 1+ 07/03/16 05:30 Anisocytosis 1+ 07/19/16 09:50 Microcytosis 1+ 07/14/16 16:00 RBC Morph Micro Appear ABNORMAL (NORMAL) 07/19/16 09:50 PT 12.7 SECONDS (9.5-11.5) H 07/01/16 06:57 INR 1.26 (0.5-1.4) 07/01/16 06:57 PTT (Actin FS) 28.3 SECONDS (26.0-38.0) 06/28/16 04:38 Specimen Source art 06/22/16 20:03 Sample Site Right Radial 06/22/16 20:03 pH 7.49 (7.35-7.45) H 06/22/16 20:03 pCO2 34.0 mmHg (35.0-45.0) L 06/22/16 20:03 pO2 97.0 mmHg (80.0-100.0) 06/22/16 20:03 HCO3 25.9 mmol/L (20.0-26.0) 06/22/16 20:03 Base Excess 2.8 mmol/L (-3.0-3.0) 06/22/16 20:03 O2 Saturation 98.0 % (92.0-100.0) 06/22/16 20:03 Estuardo Test P 06/22/16 20:03 Vent Rate NA 06/22/16 20:03 Inspired O2 21 06/22/16 20:03 Tidal Volume NA 06/22/16 20:03 PEEP NA 06/22/16 20:03 Pressure (ins/psv/peep) NA 06/22/16 20:03 Critical Value RPINEIRA 06/22/16 20:03 Sodium 132 mEq/L (136-145) L 07/20/16 05:50 Potassium 3.7 mEq/L (3.5-5.1) 07/20/16 05:50 Chloride 97 mEq/L (98-107) L 07/20/16 05:50 Carbon Dioxide 27.2 mEq/L (21.0-31.0) 07/20/16 05:50 Anion Gap 11.5 (7.0-16.0) 07/20/16 05:50 BUN 54 mg/dL (7-25) H 07/20/16 05:50 Creatinine 4.3 mg/dL (0.7-1.3) H* 07/20/16 05:50 Est GFR ( Amer) 19.0 ml/min (>90) 07/20/16 05:50 Est GFR (Non-Af Amer) 15.7 ml/min 07/20/16 05:50 BUN/Creatinine Ratio 12.6 07/20/16 05:50 Glucose 98 mg/dL (70-105) 07/20/16 05:50 Calcium 9.3 mg/dL (8.6-10.3) 07/20/16 05:50 Phosphorus 5.5 mg/dL (2.5-5.0) H 07/19/16 09:50 Magnesium 2.0 mg/dL (1.9-2.7) 07/07/16 06:00 Iron 42 ug/dL (38-169) 06/28/16 04:38 TIBC 269 ug/dL (250-450) 06/28/16 04:38 Iron Saturation 16 % (15-55) 06/28/16 04:38 Unsaturated IBC 227 ug/dL (111-343) 06/28/16 04:38 Ferritin 150 ng/mL (30-400) 06/26/16 08:30 Total Bilirubin 0.9 mg/dL (0.3-1.0) 07/14/16 06:45 Direct Bilirubin 0.70 mg/dL (0.0-0.2) H 06/28/16 04:38 GGTP 14 IU/L (0-65) 06/28/16 04:38 AST 27 U/L (13-39) 07/14/16 06:45 ALT 8 U/L (7-52) 07/14/16 06:45 Alkaline Phosphatase 42 U/L (34-104) 07/14/16 06:45 Ammonia 105 umol/L (16-53) H 07/02/16 06:40 Troponin I < 0.01 ng/mL (0.01-0.05) L 06/22/16 19:33 B-Natriuretic Peptide 668.0 pg/mL (5.0-100.0) H 06/22/16 19:33 Total Protein 7.7 gm/dL (6.0-8.3) 07/14/16 06:45 Albumin 2.8 gm/dL (4.2-5.5) L 07/14/16 06:45 Globulin 4.9 gm/dL 07/14/16 06:45 Albumin/Globulin Ratio 0.6 (1.0-1.8) L 07/14/16 06:45 Amylase 28 U/L (29-103) L 07/02/16 06:40 Lipase 31 U/L (11-82) 07/02/16 06:40 Urine Source CLEAN C 06/29/16 05:55 Urine Color YELLOW 06/29/16 05:55 Urine Clarity HAZY (CLEAR) 06/29/16 05:55 Urine pH 5.5 06/29/16 05:55 Ur Specific [place] 1.015 (1.005-1.030) 06/29/16 05:55 Urine Protein 30 mg/dL (NEGATIVE) H 06/29/16 05:55 Urine Glucose (UA) NEGATIVE mg/dL (NEGATIVE) 06/29/16 05:55 Urine Ketones NEGATIVE mg/dL (NEGATIVE) 06/29/16 05:55 Urine Blood NEGATIVE (NEGATIVE) 06/29/16 05:55 Urine Nitrate NEGATIVE (NEGATIVE) 06/29/16 05:55 Urine Bilirubin NEGATIVE (NEGATIVE) 06/29/16 05:55 Urine Urobilinogen 0.2 E.U./dL (0.2 - 1.0) 06/29/16 05:55 Ur Leukocyte Esterase TRACE (NEGATIVE) H 06/29/16 05:55 Urine RBC 0-2 /hpf (0-5) H 06/29/16 05:55 Urine WBC 6-10 /hpf (0-5) H 06/29/16 05:55 Ur Epithelial Cells FEW /lpf (FEW) 06/29/16 05:55 Urine Bacteria MANY /hpf (NONE SEEN) 06/29/16 05:55 Stool Occult Blood POSITIVE (NEGATIVE) 06/24/16 16:00 Random Vancomycin 13.4 ug/mL (5.0-40.0) 06/28/16 04:38 RPR NONREACTIVE (NONREACTIVE) 06/22/16 19:33 Hepatitis A IgM Ab Negative (Negative) 06/29/16 05:49 Hep Bs Antigen Negative (Negative) 06/29/16 05:49 Hep B Core IgM Ab Negative (Negative) 06/29/16 05:49 Hepatitis C Antibody >11.0 s/co ratio (0.0-0.9) H 06/29/16 05:49 Blood Type A POSITIVE 07/19/16 11:05 Antibody Screen NEGATIVE 07/19/16 11:05 Crossmatch See Detail 07/19/16 11:05 - Physical Exam Vitals and I&O: Vital Signs Temp 98.4 F 07/20/16 15:23 Pulse 103 07/20/16 18:19 Resp 18 07/20/16 15:23 BP 109/53 07/20/16 18:19 Pulse Ox 98 07/20/16 15:23 Intake & Output 07/20/16 07/20/16 07/21/16 06:59 18:59 06:59 Intake Total 800 Output Total 1 Balance 799 Intake: Oral 800 Output: Stool 1 Other: # Voids 3 Stool Characteristics Formed Formed Brown Brown Active Medications: Current Medications Acetaminophen (Tylenol) 325 mg PO Q6HR PRN PRN Reason: Mild Pain or Fever >101 Stop: 08/22/16 20:30 Albuterol/Ipratropium (Duoneb Neb) 3 ml HHN Q2HR PRN PRN Reason: Shortness of Breath or Wheeze Stop: 09/08/16 09:51 Aspirin (Ecotrin) 325 mg PO DAILY [facility] Stop: 09/03/16 09:14 Last Admin: 07/20/16 09:00 Dose: 325 mg Calamine/Phenol (Calmoseptine) 1 appl TP QID PRN PRN Reason: Skin Irritation Stop: 09/08/16 18:33 Last Admin: 07/20/16 09:09 Dose: 1 appl Calamine/Phenol (Calmoseptine) 1 appl TP QID [facility] Stop: 09/08/16 20:59 Last Admin: 07/20/16 18:20 Dose: 1 appl Carvedilol (Coreg) 12.5 mg PO BID [facility] Stop: 09/05/16 16:59 Last Admin: 07/20/16 18:19 Dose: 12.5 mg Cholecalciferol (Vitamin D3) 2,000 iu PO DAILY [facility] Stop: 08/23/16 08:59 Last Admin: 07/20/16 09:03 Dose: 2,000 iu Diltiazem HCl (Cardizem) 60 mg PO Q6HR [facility] Stop: 09/04/16 11:59 Last Admin: 07/20/16 18:19 Dose: Not Given Diphenhydramine HCl (Benadryl 50 Mg/Ml) 50 mg IM Q8HR PRN PRN Reason: Agitation Stop: 08/25/16 12:10 Docusate Sodium (Colace) 100 mg PO Q12HR [facility] Stop: 09/16/16 08:59 Last Admin: 07/20/16 22:12 Dose: 100 mg Haloperidol Lactate (Haldol) 5 mg IM Q8HR PRN PRN Reason: Agitation Stop: 08/25/16 12:10 Lactic Acid (Lac-Hydrin Cream) 1 appl TP BID [facility] Stop: 09/12/16 08:59 Last Admin: 07/20/16 18:19 Dose: 1 appl Lactulose (Cephulac) 20 gm PO Q8HR [facility] Stop: 09/16/16 04:59 Last Admin: 07/20/16 22:12 Dose: 20 gm Levothyroxine Sodium (Synthroid) 0.05 mg PO QDAC [facility] Stop: 08/23/16 07:29 Last Admin: 07/20/16 08:58 Dose: 0.05 mg Miscellaneous (Clinical Monitoring) 1 ea MC PRN PRN PRN Reason: RENAL DOSING Stop: 08/31/16 16:27 Morphine Sulfate (Morphine) 1 mg IVP Q4HR PRN PRN Reason: Pain (Moderate) Stop: 09/16/16 00:08 Last Admin: 07/20/16 15:31 Dose: 1 mg Morphine Sulfate (Morphine) 3 mg IV Q4HR PRN PRN Reason: Pain (Severe) Stop: 09/16/16 00:34 Ondansetron HCl (Zofran Odt) 4 mg PO Q6HR PRN PRN Reason: Nausea / Vomiting Stop: 08/22/16 20:30 Pantoprazole Sodium (Protonix) 40 mg PO DAILY [facility] Stop: 08/23/16 08:59 Last Admin: 07/20/16 08:57 Dose: 40 mg Quetiapine Fumarate (Seroquel) 100 mg PO TID [facility] PRN Reason: Protocol Stop: 08/26/16 08:59 Last Admin: 07/20/16 22:12 Dose: Not Given Vitamin B Complex/Vit C/Folic Acid (Vitamin B Complex W/Vitamin C) 1 tab PO DAILY [facility] Stop: 08/23/16 08:59 Last Admin: 07/20/16 08:57 Dose: 1 tab General: no acute distress HEENT: atraumatic, normocephalic, PERRLA, EOMI Neck: supple, no thyromegaly, no lymphadenopathy Cardiovascular: S1S2, regular Lungs: clear to auscultation bilaterally, clear to percussion Abdomen: soft, no tender, no distended Extremities: no cyanosis, no clubbing, no edema Neurological: awake, alert, oriented - Procedures Procedures: Procedures Procedure Code Date ARTERY-VEIN NONAUTOGRAFT 84468 06/22/16 BYPASS L BRACH ART TO UP ARM VEIN W NONAUT SUB, OPEN [id number] 06/22/16 FLUOROSCOPY OF SUP VENA CAVA USING [facility] CONTRAST, GUIDANCE [id number] 06/22/16 INSERTION OF INFUSION DEV INTO SUP VENA CAVA, PERC APPROACH [id number] 06/22/16 PLACE CATHETER IN VEIN 60928 06/22/16 Infectious Disease Assmt/Plan - Problem List Patient Problems: All Active Problems MEDICAL EVALUATION PER DR FRY (Acute) - Assessment Assessment: 1. Cellulitis of legs. improved. treated. 2. Lymphedema of legs. 3. CKD 5 on HD. 4. Morbid obesity. 5. hep C. 6. Anemia - Plan Plan: Continue same treatment. DC to SNF. PRBC during HD tomorrow. AYLA ANDREW.
[2016-07-20 23:42] LABS: MEAN CELL VOLUME 85.6 fl (80-99); MEAN CORPUSCULAR HEMOGLOBIN 28.7 pg (26.0-30.0); MEAN CORPUSCULAR HGB CONC 33.6 pg (28.0-36.0); MEAN PLATELET VOLUME 8.5 fl; PLATELET COUNT 146 Th/cmm (150-400); RED BLOOD COUNT 2.45 Mil/cmm (4.30-5.70); RED CELL DISTRIBUTION WIDTH 14.5 % (11.5-20.0); WHITE BLOOD COUNT 4.4 Th/cmm (4.8-10.8)
[2016-07-21] MEDS: Menthol/Zinc Oxide Oint 113gm Tube TP SCH ×5 (00:02→22:55)
[2016-07-21 00:25] LABS: BAND NEUTROPHILE 2 % (0-10); NEUTROPHILS 73 % (40-80); PLATELET ESTIMATE ADEQUATE (NORMAL); TOTAL CELLS COUNTED 100
[2016-07-21 00:26] LABS: HYPOCHROMIA 1+; POLYCHROMASIA 1+
[2016-07-21] MEDS: Morphine Sulfate 2 mg/mL 1mL Syr IVP PRN ×3 (05:04→21:33)
[2016-07-21] MEDS: Lactulose 10 Gm/15 mL 30mL UDC PO SCH ×3 (05:05→21:31)
[2016-07-21] MEDS: Diltiazem 30 mg Tab PO SCH ×3 (06:19→18:16)
[2016-07-21 07:39] LABS: MEAN CELL VOLUME 86.2 fl (80-99); MEAN CORPUSCULAR HEMOGLOBIN 28.3 pg (26.0-30.0); MEAN CORPUSCULAR HGB CONC 32.8 pg (28.0-36.0); MEAN PLATELET VOLUME 9.3 fl; PLATELET COUNT 149 Th/cmm (150-400); RED BLOOD COUNT 2.43 Mil/cmm (4.30-5.70); RED CELL DISTRIBUTION WIDTH 14.8 % (11.5-20.0); WHITE BLOOD COUNT 4.8 Th/cmm (4.8-10.8)
[2016-07-21 07:54] LABS: HEMOGLOBIN 6.9 gm/dL (13.2-17.3)
[2016-07-21] MEDS: Pantoprazole 40 mg EC Tab PO SCH (10:30)
[2016-07-21] MEDS: Vitamin B Complex w/Vitamin C Tab PO SCH (10:30)
[2016-07-21] MEDS: Levothyroxine 0.05 Mg Tab PO SCH (10:30)
[2016-07-21] MEDS: Aspirin 325 mg EC PO SCH (10:30)
[2016-07-21] MEDS: Ammonium Lactate Cream 140 gm Tube TP SCH ×2 (10:30→18:17)
[2016-07-21 10:59] LABS: EOSINOPHIL 8 % (0-5); NEUTROPHILS 71 % (40-80); TOTAL CELLS COUNTED 100
[2016-07-21 11:07] LABS: ANISOCYTOSIS 1+; PLATELET ESTIMATE ADEQUATE (NORMAL); PLATELET MORPHOLOGY GIANT PLATELETS SEEN (NORMAL)
--- NOTE | 2016-07-21 13:40 | General Progress Note ---
Subjective - Review of Systems Service Date: 07/21/16 Subjective: no change in behaviour Objective - Results Result Diagrams: 07/21/16 06:16 07/20/16 05:50 Recent Labs: Laboratory Last Values WBC 4.8 Th/cmm (4.8-10.8) 07/21/16 06:16 RBC 2.43 Mil/cmm (4.30-5.70) L 07/21/16 06:16 Hgb 6.9 gm/dL (13.2-17.3) L* 07/21/16 06:16 Hct 21.0 % (39.0-49.0) L* 07/21/16 06:16 MCV 86.2 fl (80-99) 07/21/16 06:16 MCH 28.3 pg (26.0-30.0) 07/21/16 06:16 MCHC Differential 32.8 pg (28.0-36.0) 07/21/16 06:16 RDW 14.8 % (11.5-20.0) 07/21/16 06:16 Plt Count 149 Th/cmm (150-400) L 07/21/16 06:16 MPV 9.3 fl 07/21/16 06:16 Neutrophils % 56.8 % (40.0-80.0) 07/07/16 06:00 Band Neutrophils % 2 % (0-10) 07/20/16 23:30 Lymphocytes % 18.4 % (20.0-50.0) L 07/07/16 06:00 Monocytes % 13.8 % (2.0-10.0) H 07/07/16 06:00 Eosinophils % 11.0 % (0.0-5.0) H 07/07/16 06:00 Basophils % 0.0 % (0.0-2.0) 07/07/16 06:00 Neutrophils (Manual) 71 % (40-80) 07/21/16 06:16 Lymphocytes 14 % (20-50) L 07/21/16 06:16 Monocytes 7 % (2-10) 07/21/16 06:16 Eosinophils 8 % (0-5) H 07/21/16 06:16 Basophils 2 % (0-3) 07/05/16 12:15 Myelocytes 1 % 07/14/16 16:00 Hypochromia 1+ 07/20/16 23:30 Platelet Estimate ADEQUATE (NORMAL) 07/21/16 06:16 Platelet Morphology GIANT PLATELETS SEEN (NORMAL) 07/21/16 06:16 Polychromasia 1+ 07/20/16 23:30 Anisocytosis 1+ 07/21/16 06:16 Microcytosis 1+ 07/14/16 16:00 RBC Morph Micro Appear ABNORMAL (NORMAL) 07/21/16 06:16 PT 12.7 SECONDS (9.5-11.5) H 07/01/16 06:57 INR 1.26 (0.5-1.4) 07/01/16 06:57 PTT (Actin FS) 28.3 SECONDS (26.0-38.0) 06/28/16 04:38 Specimen Source art 06/22/16 20:03 Sample Site Right Radial 06/22/16 20:03 pH 7.49 (7.35-7.45) H 06/22/16 20:03 pCO2 34.0 mmHg (35.0-45.0) L 06/22/16 20:03 pO2 97.0 mmHg (80.0-100.0) 06/22/16 20:03 HCO3 25.9 mmol/L (20.0-26.0) 06/22/16 20:03 Base Excess 2.8 mmol/L (-3.0-3.0) 06/22/16 20:03 O2 Saturation 98.0 % (92.0-100.0) 06/22/16 20:03 Estuardo Test P 06/22/16 20:03 Vent Rate NA 06/22/16 20:03 Inspired O2 21 06/22/16 20:03 Tidal Volume NA 06/22/16 20:03 PEEP NA 06/22/16 20:03 Pressure (ins/psv/peep) NA 06/22/16 20:03 Critical Value RPINEIRA 06/22/16 20:03 Sodium 132 mEq/L (136-145) L 07/20/16 05:50 Potassium 3.7 mEq/L (3.5-5.1) 07/20/16 05:50 Chloride 97 mEq/L (98-107) L 07/20/16 05:50 Carbon Dioxide 27.2 mEq/L (21.0-31.0) 07/20/16 05:50 Anion Gap 11.5 (7.0-16.0) 07/20/16 05:50 BUN 54 mg/dL (7-25) H 07/20/16 05:50 Creatinine 4.3 mg/dL (0.7-1.3) H* 07/20/16 05:50 Est GFR ( Amer) 19.0 ml/min (>90) 07/20/16 05:50 Est GFR (Non-Af Amer) 15.7 ml/min 07/20/16 05:50 BUN/Creatinine Ratio 12.6 07/20/16 05:50 Glucose 98 mg/dL (70-105) 07/20/16 05:50 Calcium 9.3 mg/dL (8.6-10.3) 07/20/16 05:50 Phosphorus 5.5 mg/dL (2.5-5.0) H 07/19/16 09:50 Magnesium 2.0 mg/dL (1.9-2.7) 07/07/16 06:00 Iron 42 ug/dL (38-169) 06/28/16 04:38 TIBC 269 ug/dL (250-450) 06/28/16 04:38 Iron Saturation 16 % (15-55) 06/28/16 04:38 Unsaturated IBC 227 ug/dL (111-343) 06/28/16 04:38 Ferritin 150 ng/mL (30-400) 06/26/16 08:30 Total Bilirubin 0.9 mg/dL (0.3-1.0) 07/14/16 06:45 Direct Bilirubin 0.70 mg/dL (0.0-0.2) H 06/28/16 04:38 GGTP 14 IU/L (0-65) 06/28/16 04:38 AST 27 U/L (13-39) 07/14/16 06:45 ALT 8 U/L (7-52) 07/14/16 06:45 Alkaline Phosphatase 42 U/L (34-104) 07/14/16 06:45 Ammonia 105 umol/L (16-53) H 07/02/16 06:40 Troponin I < 0.01 ng/mL (0.01-0.05) L 06/22/16 19:33 B-Natriuretic Peptide 668.0 pg/mL (5.0-100.0) H 06/22/16 19:33 Total Protein 7.7 gm/dL (6.0-8.3) 07/14/16 06:45 Albumin 2.8 gm/dL (4.2-5.5) L 07/14/16 06:45 Globulin 4.9 gm/dL 07/14/16 06:45 Albumin/Globulin Ratio 0.6 (1.0-1.8) L 07/14/16 06:45 Amylase 28 U/L (29-103) L 07/02/16 06:40 Lipase 31 U/L (11-82) 07/02/16 06:40 Urine Source CLEAN C 06/29/16 05:55 Urine Color YELLOW 06/29/16 05:55 Urine Clarity HAZY (CLEAR) 06/29/16 05:55 Urine pH 5.5 06/29/16 05:55 Ur Specific [place] 1.015 (1.005-1.030) 06/29/16 05:55 Urine Protein 30 mg/dL (NEGATIVE) H 06/29/16 05:55 Urine Glucose (UA) NEGATIVE mg/dL (NEGATIVE) 06/29/16 05:55 Urine Ketones NEGATIVE mg/dL (NEGATIVE) 06/29/16 05:55 Urine Blood NEGATIVE (NEGATIVE) 06/29/16 05:55 Urine Nitrate NEGATIVE (NEGATIVE) 06/29/16 05:55 Urine Bilirubin NEGATIVE (NEGATIVE) 06/29/16 05:55 Urine Urobilinogen 0.2 E.U./dL (0.2 - 1.0) 06/29/16 05:55 Ur Leukocyte Esterase TRACE (NEGATIVE) H 06/29/16 05:55 Urine RBC 0-2 /hpf (0-5) H 06/29/16 05:55 Urine WBC 6-10 /hpf (0-5) H 06/29/16 05:55 Ur Epithelial Cells FEW /lpf (FEW) 06/29/16 05:55 Urine Bacteria MANY /hpf (NONE SEEN) 06/29/16 05:55 Stool Occult Blood POSITIVE (NEGATIVE) 06/24/16 16:00 Random Vancomycin 13.4 ug/mL (5.0-40.0) 06/28/16 04:38 RPR NONREACTIVE (NONREACTIVE) 06/22/16 19:33 Hepatitis A IgM Ab Negative (Negative) 06/29/16 05:49 Hep Bs Antigen Negative (Negative) 06/29/16 05:49 Hep B Core IgM Ab Negative (Negative) 06/29/16 05:49 Hepatitis C Antibody >11.0 s/co ratio (0.0-0.9) H 06/29/16 05:49 Blood Type A POSITIVE 07/19/16 11:05 Antibody Screen NEGATIVE 07/19/16 11:05 Crossmatch See Detail 07/19/16 11:05 - Physical Exam Vitals and I&O: Vital Signs Temp 98.8 F 07/21/16 08:00 Pulse 99 07/21/16 10:30 Resp 20 07/21/16 08:00 BP 112/68 07/21/16 10:30 Pulse Ox 98 07/21/16 08:00 Intake & Output 07/20/16 07/21/16 07/21/16 18:59 06:59 18:59 Intake Total 800 1000 Output Total 1 Balance 799 1000 Intake: Oral 800 1000 Output: Stool 1 Other: # Voids 3 2 Stool Characteristics Formed Brown Active Medications: Current Medications Acetaminophen (Tylenol) 325 mg PO Q6HR PRN PRN Reason: Mild Pain or Fever >101 Stop: 08/22/16 20:30 Albuterol/Ipratropium (Duoneb Neb) 3 ml HHN Q2HR PRN PRN Reason: Shortness of Breath or Wheeze Stop: 09/08/16 09:51 Aspirin (Ecotrin) 325 mg PO DAILY [facility] Stop: 09/03/16 09:14 Last Admin: 07/21/16 10:30 Dose: Not Given Calamine/Phenol (Calmoseptine) 1 appl TP QID PRN PRN Reason: Skin Irritation Stop: 09/08/16 18:33 Last Admin: 07/20/16 09:09 Dose: 1 appl Calamine/Phenol (Calmoseptine) 1 appl TP QID [facility] Stop: 09/08/16 20:59 Last Admin: 07/21/16 10:30 Dose: Not Given Carvedilol (Coreg) 12.5 mg PO BID [facility] Stop: 09/05/16 16:59 Last Admin: 07/21/16 10:30 Dose: Not Given Cholecalciferol (Vitamin D3) 2,000 iu PO DAILY [facility] Stop: 08/23/16 08:59 Last Admin: 07/21/16 10:30 Dose: Not Given Diltiazem HCl (Cardizem) 60 mg PO Q6HR [facility] Stop: 09/04/16 11:59 Last Admin: 07/21/16 06:19 Dose: Not Given Diphenhydramine HCl (Benadryl 50 Mg/Ml) 50 mg IM Q8HR PRN PRN Reason: Agitation Stop: 08/25/16 12:10 Docusate Sodium (Colace) 100 mg PO Q12HR [facility] Stop: 09/16/16 08:59 Last Admin: 07/21/16 10:30 Dose: Not Given Haloperidol Lactate (Haldol) 5 mg IM Q8HR PRN PRN Reason: Agitation Stop: 08/25/16 12:10 Lactic Acid (Lac-Hydrin Cream) 1 appl TP BID [facility] Stop: 09/12/16 08:59 Last Admin: 07/21/16 10:30 Dose: Not Given Lactulose (Cephulac) 20 gm PO Q8HR [facility] Stop: 09/16/16 04:59 Last Admin: 07/21/16 05:05 Dose: 20 gm Levothyroxine Sodium (Synthroid) 0.05 mg PO QDAC [facility] Stop: 08/23/16 07:29 Last Admin: 07/21/16 10:30 Dose: Not Given Miscellaneous (Clinical Monitoring) 1 ea MC PRN PRN PRN Reason: RENAL DOSING Stop: 08/31/16 16:27 Morphine Sulfate (Morphine) 1 mg IVP Q4HR PRN PRN Reason: Pain (Moderate) Stop: 09/16/16 00:08 Last Admin: 07/21/16 09:20 Dose: 1 mg Morphine Sulfate (Morphine) 3 mg IV Q4HR PRN PRN Reason: Pain (Severe) Stop: 09/16/16 00:34 Ondansetron HCl (Zofran Odt) 4 mg PO Q6HR PRN PRN Reason: Nausea / Vomiting Stop: 08/22/16 20:30 Pantoprazole Sodium (Protonix) 40 mg PO DAILY [facility] Stop: 08/23/16 08:59 Last Admin: 07/21/16 10:30 Dose: Not Given Quetiapine Fumarate (Seroquel) 100 mg PO TID [facility]QUISE PRN Reason: Protocol Stop: 08/26/16 08:59 Last Admin: 07/21/16 10:30 Dose: Not Given Vitamin B Complex/Vit C/Folic Acid (Vitamin B Complex W/Vitamin C) 1 tab PO DAILY [facility] Stop: 08/23/16 08:59 Last Admin: 07/21/16 10:30 Dose: Not Given General: Alert, Other, no Cooperative (uncooperative) HEENT: Atraumatic, Mucous membr. moist/pink Neck: Supple, +2 carotid pulse wo bruit Cardiovascular: Regular rate, Normal S1, Normal S2 Lungs: Clear to auscultation Abdomen: Bowel sounds, Soft Extremities: Edema ((+) 3 bipedal edema) Neurological: Sensation intact Skin: no Rash - Procedures Procedures: Procedures Procedure Code Date ARTERY-VEIN NONAUTOGRAFT 41863 06/22/16 BYPASS L BRACH ART TO UP ARM VEIN W NONAUT SUB, OPEN [id number] 06/22/16 FLUOROSCOPY OF SUP VENA CAVA USING [facility] CONTRAST, GUIDANCE [id number] 06/22/16 INSERTION OF INFUSION DEV INTO SUP VENA CAVA, PERC APPROACH [id number] 06/22/[address] PL[address] CATHETER IN VEIN [address]181 06/22/16 Assessment/Plan - Problem List Patient Problems: All Active Problems MEDICAL EVALUATION PER DR FRY (Acute) - Assessment Assessment: esrd on hd persistent cellulitis b/l lower ext acute on chronic anemia possible gi bleed ohs chronic a. fib hypothyroid anasarca functional quadriplegia chronic venous stasis dermatitis acute decomp psychosis hypokalemia, hypomagnesemia s/p left avg - Plan Plan: hgb/hct slightly improved to 8.2/24.8 Lab - Result Diagrams 07/19/16 09:50 07/19/16 09:50 latest hgb/hct were 6.9/21 currently being dialyzed & for transfusion 1 U PRBC placement in progress continue psych meds Lab - Result Diagrams 07/19/16 09:50 07/20/16 05:50 Lab - Result Diagrams 07/21/16 06:16 07/20/16 05:50
[2016-07-21] MEDS: Epoetin Alfa 20000 Units/mL Vial SUBQ SCH (17:19)
[2016-07-21 20:21] LABS: HEMATOCRIT 22.3 % (39.0-49.0); HEMOGLOBIN 7.5 gm/dL (13.2-17.3)
--- NOTE | 2016-07-21 23:23 | Infectious Disease Prog Note ---
Infectious Disease Subjective - Review of Systems Service Date: 07/21/16 Subjective: No change. Infectious Disease Objective - Results Result Diagrams: 07/21/16 19:55 07/20/16 05:50 Recent Labs: Laboratory Last Values WBC 4.8 Th/cmm (4.8-10.8) 07/21/16 06:16 RBC 2.43 Mil/cmm (4.30-5.70) L 07/21/16 06:16 Hgb 7.5 gm/dL (13.2-17.3) L* 07/21/16 19:55 Hct 22.3 % (39.0-49.0) L* 07/21/16 19:55 MCV 86.2 fl (80-99) 07/21/16 06:16 MCH 28.3 pg (26.0-30.0) 07/21/16 06:16 MCHC Differential 32.8 pg (28.0-36.0) 07/21/16 06:16 RDW 14.8 % (11.5-20.0) 07/21/16 06:16 Plt Count 149 Th/cmm (150-400) L 07/21/16 06:16 MPV 9.3 fl 07/21/16 06:16 Neutrophils % 56.8 % (40.0-80.0) 07/07/16 06:00 Band Neutrophils % 2 % (0-10) 07/20/16 23:30 Lymphocytes % 18.4 % (20.0-50.0) L 07/07/16 06:00 Monocytes % 13.8 % (2.0-10.0) H 07/07/16 06:00 Eosinophils % 11.0 % (0.0-5.0) H 07/07/16 06:00 Basophils % 0.0 % (0.0-2.0) 07/07/16 06:00 Neutrophils (Manual) 71 % (40-80) 07/21/16 06:16 Lymphocytes 14 % (20-50) L 07/21/16 06:16 Monocytes 7 % (2-10) 07/21/16 06:16 Eosinophils 8 % (0-5) H 07/21/16 06:16 Basophils 2 % (0-3) 07/05/16 12:15 Myelocytes 1 % 07/14/16 16:00 Hypochromia 1+ 07/20/16 23:30 Platelet Estimate ADEQUATE (NORMAL) 07/21/16 06:16 Platelet Morphology GIANT PLATELETS SEEN (NORMAL) 07/21/16 06:16 Polychromasia 1+ 07/20/16 23:30 Anisocytosis 1+ 07/21/16 06:16 Microcytosis 1+ 07/14/16 16:00 RBC Morph Micro Appear ABNORMAL (NORMAL) 07/21/16 06:16 PT 12.7 SECONDS (9.5-11.5) H 07/01/16 06:57 INR 1.26 (0.5-1.4) 07/01/16 06:57 PTT (Actin FS) 28.3 SECONDS (26.0-38.0) 06/28/16 04:38 Specimen Source art 06/22/16 20:03 Sample Site Right Radial 06/22/16 20:03 pH 7.49 (7.35-7.45) H 06/22/16 20:03 pCO2 34.0 mmHg (35.0-45.0) L 06/22/16 20:03 pO2 97.0 mmHg (80.0-100.0) 06/22/16 20:03 HCO3 25.9 mmol/L (20.0-26.0) 06/22/16 20:03 Base Excess 2.8 mmol/L (-3.0-3.0) 06/22/16 20:03 O2 Saturation 98.0 % (92.0-100.0) 06/22/16 20:03 Estuardo Test P 06/22/16 20:03 Vent Rate NA 06/22/16 20:03 Inspired O2 21 06/22/16 20:03 Tidal Volume NA 06/22/16 20:03 PEEP NA 06/22/16 20:03 Pressure (ins/psv/peep) NA 06/22/16 20:03 Critical Value RPINEIRA 06/22/16 20:03 Sodium 132 mEq/L (136-145) L 07/20/16 05:50 Potassium 3.7 mEq/L (3.5-5.1) 07/20/16 05:50 Chloride 97 mEq/L (98-107) L 07/20/16 05:50 Carbon Dioxide 27.2 mEq/L (21.0-31.0) 07/20/16 05:50 Anion Gap 11.5 (7.0-16.0) 07/20/16 05:50 BUN 54 mg/dL (7-25) H 07/20/16 05:50 Creatinine 4.3 mg/dL (0.7-1.3) H* 07/20/16 05:50 Est GFR ( Amer) 19.0 ml/min (>90) 07/20/16 05:50 Est GFR (Non-Af Amer) 15.7 ml/min 07/20/16 05:50 BUN/Creatinine Ratio 12.6 07/20/16 05:50 Glucose 98 mg/dL (70-105) 07/20/16 05:50 Calcium 9.3 mg/dL (8.6-10.3) 07/20/16 05:50 Phosphorus 5.5 mg/dL (2.5-5.0) H 07/19/16 09:50 Magnesium 2.0 mg/dL (1.9-2.7) 07/07/16 06:00 Iron 42 ug/dL (38-169) 06/28/16 04:38 TIBC 269 ug/dL (250-450) 06/28/16 04:38 Iron Saturation 16 % (15-55) 06/28/16 04:38 Unsaturated IBC 227 ug/dL (111-343) 06/28/16 04:38 Ferritin 150 ng/mL (30-400) 06/26/16 08:30 Total Bilirubin 0.9 mg/dL (0.3-1.0) 07/14/16 06:45 Direct Bilirubin 0.70 mg/dL (0.0-0.2) H 06/28/16 04:38 GGTP 14 IU/L (0-65) 06/28/16 04:38 AST 27 U/L (13-39) 07/14/16 06:45 ALT 8 U/L (7-52) 07/14/16 06:45 Alkaline Phosphatase 42 U/L (34-104) 07/14/16 06:45 Ammonia 105 umol/L (16-53) H 07/02/16 06:40 Troponin I < 0.01 ng/mL (0.01-0.05) L 06/22/16 19:33 B-Natriuretic Peptide 668.0 pg/mL (5.0-100.0) H 06/22/16 19:33 Total Protein 7.7 gm/dL (6.0-8.3) 07/14/16 06:45 Albumin 2.8 gm/dL (4.2-5.5) L 07/14/16 06:45 Globulin 4.9 gm/dL 07/14/16 06:45 Albumin/Globulin Ratio 0.6 (1.0-1.8) L 07/14/16 06:45 Amylase 28 U/L (29-103) L 07/02/16 06:40 Lipase 31 U/L (11-82) 07/02/16 06:40 Urine Source CLEAN C 06/29/16 05:55 Urine Color YELLOW 06/29/16 05:55 Urine Clarity HAZY (CLEAR) 06/29/16 05:55 Urine pH 5.5 06/29/16 05:55 Ur Specific [place] 1.015 (1.005-1.030) 06/29/16 05:55 Urine Protein 30 mg/dL (NEGATIVE) H 06/29/16 05:55 Urine Glucose (UA) NEGATIVE mg/dL (NEGATIVE) 06/29/16 05:55 Urine Ketones NEGATIVE mg/dL (NEGATIVE) 06/29/16 05:55 Urine Blood NEGATIVE (NEGATIVE) 06/29/16 05:55 Urine Nitrate NEGATIVE (NEGATIVE) 06/29/16 05:55 Urine Bilirubin NEGATIVE (NEGATIVE) 06/29/16 05:55 Urine Urobilinogen 0.2 E.U./dL (0.2 - 1.0) 06/29/16 05:55 Ur Leukocyte Esterase TRACE (NEGATIVE) H 06/29/16 05:55 Urine RBC 0-2 /hpf (0-5) H 06/29/16 05:55 Urine WBC 6-10 /hpf (0-5) H 06/29/16 05:55 Ur Epithelial Cells FEW /lpf (FEW) 06/29/16 05:55 Urine Bacteria MANY /hpf (NONE SEEN) 06/29/16 05:55 Stool Occult Blood POSITIVE (NEGATIVE) 06/24/16 16:00 Random Vancomycin 13.4 ug/mL (5.0-40.0) 06/28/16 04:38 RPR NONREACTIVE (NONREACTIVE) 06/22/16 19:33 Hepatitis A IgM Ab Negative (Negative) 06/29/16 05:49 Hep Bs Antigen Negative (Negative) 06/29/16 05:49 Hep B Core IgM Ab Negative (Negative) 06/29/16 05:49 Hepatitis C Antibody >11.0 s/co ratio (0.0-0.9) H 06/29/16 05:49 Blood Type A POSITIVE 07/21/16 12:31 Antibody Screen NEGATIVE 07/21/16 12:31 Crossmatch See Detail 07/21/16 12:31 - Physical Exam Vitals and I&O: Vital Signs Temp 98.5 F 07/21/16 16:00 Pulse 96 07/21/16 18:17 Resp 20 07/21/16 16:00 BP 95/65 07/21/16 18:17 Pulse Ox 97 07/21/16 16:00 Intake & Output 07/21/16 07/21/16 07/22/16 06:59 18:59 06:59 Intake Total 1000 1050 Output Total 1800 Balance 1000 -750 Intake: Oral 1000 800 Blood Product 250 Output: Other 1800 Other: # Voids 2 2 Active Medications: Current Medications Acetaminophen (Tylenol) 325 mg PO Q6HR PRN PRN Reason: Mild Pain or Fever >101 Stop: 08/22/16 20:30 Albuterol/Ipratropium (Duoneb Neb) 3 ml HHN Q2HR PRN PRN Reason: Shortness of Breath or Wheeze Stop: 09/08/16 09:51 Aspirin (Ecotrin) 325 mg PO DAILY [facility] Stop: 09/03/16 09:14 Last Admin: 07/21/16 10:30 Dose: Not Given Calamine/Phenol (Calmoseptine) 1 appl TP QID PRN PRN Reason: Skin Irritation Stop: 09/08/16 18:33 Last Admin: 07/20/16 09:09 Dose: 1 appl Calamine/Phenol (Calmoseptine) 1 appl TP QID [facility] Stop: 09/08/16 20:59 Last Admin: 07/21/16 22:55 Dose: 1 appl Carvedilol (Coreg) 12.5 mg PO BID [facility] Stop: 09/05/16 16:59 Last Admin: 07/21/16 18:17 Dose: Not Given Cholecalciferol (Vitamin D3) 2,000 iu PO DAILY [facility] Stop: 08/23/16 08:59 Last Admin: 07/21/16 10:30 Dose: Not Given Diltiazem HCl (Cardizem) 60 mg PO Q6HR [facility] Stop: 09/04/16 11:59 Last Admin: 07/21/16 18:16 Dose: Not Given Diphenhydramine HCl (Benadryl 50 Mg/Ml) 50 mg IM Q8HR PRN PRN Reason: Agitation Stop: 08/25/16 12:10 Docusate Sodium (Colace) 100 mg PO Q12HR [facility] Stop: 09/16/16 08:59 Last Admin: 07/21/16 21:31 Dose: 100 mg Epoetin Bernardino (Epogen) 10,000 units SUBQ TuThSa [facility] Stop: 09/19/16 13:44 Last Admin: 07/21/16 17:19 Dose: 10,000 units Haloperidol Lactate (Haldol) 5 mg IM Q8HR PRN PRN Reason: Agitation Stop: 08/25/16 12:10 Lactic Acid (Lac-Hydrin Cream) 1 appl TP BID [facility] Stop: 09/12/16 08:59 Last Admin: 07/21/16 18:17 Dose: Not Given Lactulose (Cephulac) 20 gm PO Q8HR [facility] Stop: 09/16/16 04:59 Last Admin: 07/21/16 21:31 Dose: 20 gm Levothyroxine Sodium (Synthroid) 0.05 mg PO QDAC [facility] Stop: 08/23/16 07:29 Last Admin: 07/21/16 10:30 Dose: Not Given Miscellaneous (Clinical Monitoring) 1 ea MC PRN PRN PRN Reason: RENAL DOSING Stop: 08/31/16 16:27 Morphine Sulfate (Morphine) 1 mg IVP Q4HR PRN PRN Reason: Pain (Moderate) Stop: 09/16/16 00:08 Last Admin: 07/21/16 21:33 Dose: 1 mg Morphine Sulfate (Morphine) 3 mg IV Q4HR PRN PRN Reason: Pain (Severe) Stop: 09/16/16 00:34 Ondansetron HCl (Zofran Odt) 4 mg PO Q6HR PRN PRN Reason: Nausea / Vomiting Stop: 08/22/16 20:30 Pantoprazole Sodium (Protonix) 40 mg PO DAILY [facility] Stop: 08/23/16 08:59 Last Admin: 07/21/16 10:30 Dose: Not Given Quetiapine Fumarate (Seroquel) 100 mg PO TID [facility] PRN Reason: Protocol Stop: 08/26/16 08:59 Last Admin: 07/21/16 21:32 Dose: Not Given Vitamin B Complex/Vit C/Folic Acid (Vitamin B Complex W/Vitamin C) 1 tab PO DAILY [facility] Stop: 08/23/16 08:59 Last Admin: 07/21/16 10:30 Dose: Not Given General: no acute distress, other HEENT: atraumatic, normocephalic Neck: supple, no thyromegaly, no lymphadenopathy Cardiovascular: S1S2, regular Lungs: clear to auscultation bilaterally, clear to percussion Abdomen: soft, no tender, no distended Extremities: no cyanosis, no clubbing, no edema Neurological: awake, alert, oriented, CN 2-12 intact - Procedures Procedures: Procedures Procedure Code Date ARTERY-VEIN NONAUTOGRAFT 09241 06/22/16 BYPASS L BRACH ART TO UP ARM VEIN W NONAUT SUB, OPEN [id number] 06/22/16 FLUOROSCOPY OF SUP VENA CAVA USING [facility] CONTRAST, GUIDANCE [id number] 06/22/16 INSERTION OF INFUSION DEV INTO SUP VENA CAVA, PERC APPROACH [id number] 06/22/16 PLACE CATHETER IN VEIN [address]221 06/22/16 Infectious Disease Assmt/Plan - Problem List Patient Problems: All Active Problems MEDICAL EVALUATION PER DR FRY (Acute) - Assessment Assessment: 1. Cellulitis of legs. improved. treated. 2. Lymphedema of legs. 3. CKD 5 on HD. 4. Morbid obesity. 5. hep C. - Plan Plan: Continue same treatment. DC to SNF.
[2016-07-22] MEDS: Diltiazem 30 mg Tab PO SCH ×4 (00:27→17:46)
[2016-07-22] MEDS: Lactulose 10 Gm/15 mL 30mL UDC PO SCH ×3 (05:27→20:53)
[2016-07-22 05:57] LABS: MEAN CELL VOLUME 86.1 fl (80-99); MEAN CORPUSCULAR HEMOGLOBIN 28.7 pg (26.0-30.0); MEAN CORPUSCULAR HGB CONC 33.3 pg (28.0-36.0); MEAN PLATELET VOLUME 8.7 fl; PLATELET COUNT 143 Th/cmm (150-400); RED BLOOD COUNT 2.52 Mil/cmm (4.30-5.70); RED CELL DISTRIBUTION WIDTH 14.9 % (11.5-20.0)
[2016-07-22 06:08] LABS: HEMOGLOBIN 7.2 gm/dL (13.2-17.3)
[2016-07-22 06:09] LABS: HEMATOCRIT 21.7 % (39.0-49.0)
[2016-07-22] MEDS: Levothyroxine 0.05 Mg Tab PO SCH (06:59)
[2016-07-22] MEDS: Morphine Sulfate 2 mg/mL 1mL Syr IVP PRN ×2 (08:05→22:01)
[2016-07-22] MEDS: Aspirin 325 mg EC PO SCH (09:09)
[2016-07-22] MEDS: Pantoprazole 40 mg EC Tab PO SCH (09:10)
[2016-07-22] MEDS: Menthol/Zinc Oxide Oint 113gm Tube TP SCH ×4 (09:10→20:54)
[2016-07-22] MEDS: Vitamin B Complex w/Vitamin C Tab PO SCH (09:12)
[2016-07-22] MEDS: Ammonium Lactate Cream 140 gm Tube TP SCH ×2 (09:13→16:55)
[2016-07-22 11:22] LABS: ANISOCYTOSIS 1+; EOSINOPHIL 12 % (0-5); NEUTROPHILS 73 % (40-80); PLATELET ESTIMATE ADEQUATE (NORMAL); PLATELET MORPHOLOGY NORMAL (NORMAL); TOTAL CELLS COUNTED 100
--- NOTE | 2016-07-22 11:37 | General Progress Note ---
Subjective - Review of Systems Subjective: pt refusing evrything pulled out vascular access yesterday spoke to dr forrest yesterday renal notes noted Objective - Results Result Diagrams: 07/22/16 05:21 07/20/16 05:50 Recent Labs: Laboratory Last Values WBC 5.0 Th/cmm (4.8-10.8) 07/22/16 05:21 RBC 2.52 Mil/cmm (4.30-5.70) L 07/22/16 05:21 Hgb 7.2 gm/dL (13.2-17.3) L* 07/22/16 05:21 Hct 21.7 % (39.0-49.0) L* 07/22/16 05:21 MCV 86.1 fl (80-99) 07/22/16 05:21 MCH 28.7 pg (26.0-30.0) 07/22/16 05:21 MCHC Differential 33.3 pg (28.0-36.0) 07/22/16 05:21 RDW 14.9 % (11.5-20.0) 07/22/16 05:21 Plt Count 143 Th/cmm (150-400) L 07/22/16 05:21 MPV 8.7 fl 07/22/16 05:21 Neutrophils % 56.8 % (40.0-80.0) 07/07/16 06:00 Band Neutrophils % 2 % (0-10) 07/20/16 23:30 Lymphocytes % 18.4 % (20.0-50.0) L 07/07/16 06:00 Monocytes % 13.8 % (2.0-10.0) H 07/07/16 06:00 Eosinophils % 11.0 % (0.0-5.0) H 07/07/16 06:00 Basophils % 0.0 % (0.0-2.0) 07/07/16 06:00 Neutrophils (Manual) 73 % (40-80) 07/22/16 05:21 Lymphocytes 6 % (20-50) L 07/22/16 05:21 Monocytes 9 % (2-10) 07/22/16 05:21 Eosinophils 12 % (0-5) H 07/22/16 05:21 Basophils 2 % (0-3) 07/05/16 12:15 Myelocytes 1 % 07/14/16 16:00 Hypochromia 1+ 07/20/16 23:30 Platelet Estimate ADEQUATE (NORMAL) 07/22/16 05:21 Platelet Morphology NORMAL (NORMAL) 07/22/16 05:21 Polychromasia 1+ 07/20/16 23:30 Anisocytosis 1+ 07/22/16 05:21 Microcytosis 1+ 07/14/16 16:00 RBC Morph Micro Appear ABNORMAL (NORMAL) 07/22/16 05:21 PT 12.7 SECONDS (9.5-11.5) H 07/01/16 06:57 INR 1.26 (0.5-1.4) 07/01/16 06:57 PTT (Actin FS) 28.3 SECONDS (26.0-38.0) 06/28/16 04:38 Specimen Source art 06/22/16 20:03 Sample Site Right Radial 06/22/16 20:03 pH 7.49 (7.35-7.45) H 06/22/16 20:03 pCO2 34.0 mmHg (35.0-45.0) L 06/22/16 20:03 pO2 97.0 mmHg (80.0-100.0) 06/22/16 20:03 HCO3 25.9 mmol/L (20.0-26.0) 06/22/16 20:03 Base Excess 2.8 mmol/L (-3.0-3.0) 06/22/16 20:03 O2 Saturation 98.0 % (92.0-100.0) 06/22/16 20:03 Estuardo Test P 06/22/16 20:03 Vent Rate NA 06/22/16 20:03 Inspired O2 21 06/22/16 20:03 Tidal Volume NA 06/22/16 20:03 PEEP NA 06/22/16 20:03 Pressure (ins/psv/peep) NA 06/22/16 20:03 Critical Value RPINEIRA 06/22/16 20:03 Sodium 132 mEq/L (136-145) L 07/20/16 05:50 Potassium 3.7 mEq/L (3.5-5.1) 07/20/16 05:50 Chloride 97 mEq/L (98-107) L 07/20/16 05:50 Carbon Dioxide 27.2 mEq/L (21.0-31.0) 07/20/16 05:50 Anion Gap 11.5 (7.0-16.0) 07/20/16 05:50 BUN 54 mg/dL (7-25) H 07/20/16 05:50 Creatinine 4.3 mg/dL (0.7-1.3) H* 07/20/16 05:50 Est GFR ( Amer) 19.0 ml/min (>90) 07/20/16 05:50 Est GFR (Non-Af Amer) 15.7 ml/min 07/20/16 05:50 BUN/Creatinine Ratio 12.6 07/20/16 05:50 Glucose 98 mg/dL (70-105) 07/20/16 05:50 Calcium 9.3 mg/dL (8.6-10.3) 07/20/16 05:50 Phosphorus 5.5 mg/dL (2.5-5.0) H 07/19/16 09:50 Magnesium 2.0 mg/dL (1.9-2.7) 07/07/16 06:00 Iron 42 ug/dL (38-169) 06/28/16 04:38 TIBC 269 ug/dL (250-450) 06/28/16 04:38 Iron Saturation 16 % (15-55) 06/28/16 04:38 Unsaturated IBC 227 ug/dL (111-343) 06/28/16 04:38 Ferritin 150 ng/mL (30-400) 06/26/16 08:30 Total Bilirubin 0.9 mg/dL (0.3-1.0) 07/14/16 06:45 Direct Bilirubin 0.70 mg/dL (0.0-0.2) H 06/28/16 04:38 GGTP 14 IU/L (0-65) 06/28/16 04:38 AST 27 U/L (13-39) 07/14/16 06:45 ALT 8 U/L (7-52) 07/14/16 06:45 Alkaline Phosphatase 42 U/L (34-104) 07/14/16 06:45 Ammonia 105 umol/L (16-53) H 07/02/16 06:40 Troponin I < 0.01 ng/mL (0.01-0.05) L 06/22/16 19:33 B-Natriuretic Peptide 668.0 pg/mL (5.0-100.0) H 06/22/16 19:33 Total Protein 7.7 gm/dL (6.0-8.3) 07/14/16 06:45 Albumin 2.8 gm/dL (4.2-5.5) L 07/14/16 06:45 Globulin 4.9 gm/dL 07/14/16 06:45 Albumin/Globulin Ratio 0.6 (1.0-1.8) L 07/14/16 06:45 Amylase 28 U/L (29-103) L 07/02/16 06:40 Lipase 31 U/L (11-82) 07/02/16 06:40 Urine Source CLEAN C 06/29/16 05:55 Urine Color YELLOW 06/29/16 05:55 Urine Clarity HAZY (CLEAR) 06/29/16 05:55 Urine pH 5.5 06/29/16 05:55 Ur Specific [place] 1.015 (1.005-1.030) 06/29/16 05:55 Urine Protein 30 mg/dL (NEGATIVE) H 06/29/16 05:55 Urine Glucose (UA) NEGATIVE mg/dL (NEGATIVE) 06/29/16 05:55 Urine Ketones NEGATIVE mg/dL (NEGATIVE) 06/29/16 05:55 Urine Blood NEGATIVE (NEGATIVE) 06/29/16 05:55 Urine Nitrate NEGATIVE (NEGATIVE) 06/29/16 05:55 Urine Bilirubin NEGATIVE (NEGATIVE) 06/29/16 05:55 Urine Urobilinogen 0.2 E.U./dL (0.2 - 1.0) 06/29/16 05:55 Ur Leukocyte Esterase TRACE (NEGATIVE) H 06/29/16 05:55 Urine RBC 0-2 /hpf (0-5) H 06/29/16 05:55 Urine WBC 6-10 /hpf (0-5) H 06/29/16 05:55 Ur Epithelial Cells FEW /lpf (FEW) 06/29/16 05:55 Urine Bacteria MANY /hpf (NONE SEEN) 06/29/16 05:55 Stool Occult Blood POSITIVE (NEGATIVE) 06/24/16 16:00 Random Vancomycin 13.4 ug/mL (5.0-40.0) 06/28/16 04:38 RPR NONREACTIVE (NONREACTIVE) 06/22/16 19:33 Hepatitis A IgM Ab Negative (Negative) 06/29/16 05:49 Hep Bs Antigen Negative (Negative) 06/29/16 05:49 Hep B Core IgM Ab Negative (Negative) 06/29/16 05:49 Hepatitis C Antibody >11.0 s/co ratio (0.0-0.9) H 06/29/16 05:49 Blood Type A POSITIVE 07/21/16 12:31 Antibody Screen NEGATIVE 07/21/16 12:31 Crossmatch See Detail 07/21/16 12:31 - Physical Exam Vitals and I&O: Vital Signs Temp 99.4 F 07/22/16 08:00 Pulse 100 07/22/16 09:13 Resp 18 07/22/16 08:00 BP 95/65 07/22/16 09:13 Pulse Ox 97 07/22/16 08:00 Intake & Output 07/21/16 07/22/16 07/22/16 18:59 06:59 18:59 Intake Total 1050 500 Output Total 1800 Balance -750 500 Intake: Oral 800 500 Blood Product 250 Output: Other 1800 Other: # Voids 2 1 Stool Characteristics Soft Soft Active Medications: Current Medications Acetaminophen (Tylenol) 325 mg PO Q6HR PRN PRN Reason: Mild Pain or Fever >101 Stop: 08/22/16 20:30 Albuterol/Ipratropium (Duoneb Neb) 3 ml HHN Q2HR PRN PRN Reason: Shortness of Breath or Wheeze Stop: 09/08/16 09:51 Aspirin (Ecotrin) 325 mg PO DAILY [facility] Stop: 09/03/16 09:14 Last Admin: 07/22/16 09:09 Dose: 325 mg Calamine/Phenol (Calmoseptine) 1 appl TP QID PRN PRN Reason: Skin Irritation Stop: 09/08/16 18:33 Last Admin: 07/20/16 09:09 Dose: 1 appl Calamine/Phenol (Calmoseptine) 1 appl TP QID [facility] Stop: 09/08/16 20:59 Last Admin: 07/22/16 09:10 Dose: 1 appl Carvedilol (Coreg) 12.5 mg PO BID [facility] Stop: 09/05/16 16:59 Last Admin: 07/22/16 09:13 Dose: Not Given Cholecalciferol (Vitamin D3) 2,000 iu PO DAILY [facility] Stop: 08/23/16 08:59 Last Admin: 07/22/16 09:10 Dose: 2,000 iu Diltiazem HCl (Cardizem) 60 mg PO Q6HR [facility] Stop: 09/04/16 11:59 Last Admin: 07/22/16 05:29 Dose: Not Given Diphenhydramine HCl (Benadryl 50 Mg/Ml) 50 mg IM Q8HR PRN PRN Reason: Agitation Stop: 08/25/16 12:10 Docusate Sodium (Colace) 100 mg PO Q12HR [facility] Stop: 09/16/16 08:59 Last Admin: 07/22/16 09:09 Dose: 100 mg Epoetin Bernardino (Epogen) 10,000 units SUBQ TuTa [facility] Stop: 09/19/16 13:44 Last Admin: 07/21/16 17:19 Dose: 10,000 units Haloperidol Lactate (Haldol) 5 mg IM Q8HR PRN PRN Reason: Agitation Stop: 08/25/16 12:10 Lactic Acid (Lac-Hydrin Cream) 1 appl TP BID [facility] Stop: 09/12/16 08:59 Last Admin: 07/22/16 09:13 Dose: 1 appl Lactulose (Cephulac) 20 gm PO Q8HR [facility] Stop: 09/16/16 04:59 Last Admin: 07/22/16 05:27 Dose: 20 gm Levothyroxine Sodium (Synthroid) 0.05 mg PO QDAC [facility] Stop: 08/23/16 07:29 Last Admin: 07/22/16 06:59 Dose: 0.05 mg Miscellaneous (Clinical Monitoring) 1 ea MC PRN PRN PRN Reason: RENAL DOSING Stop: 08/31/16 16:27 Morphine Sulfate (Morphine) 1 mg IVP Q4HR PRN PRN Reason: Pain (Moderate) Stop: 09/16/16 00:08 Last Admin: 07/22/16 08:05 Dose: 1 mg Morphine Sulfate (Morphine) 3 mg IV Q4HR PRN PRN Reason: Pain (Severe) Stop: 09/16/16 00:34 Ondansetron HCl (Zofran Odt) 4 mg PO Q6HR PRN PRN Reason: Nausea / Vomiting Stop: 08/22/16 20:30 Pantoprazole Sodium (Protonix) 40 mg PO DAILY [facility] Stop: 08/23/16 08:59 Last Admin: 07/22/16 09:10 Dose: 40 mg Quetiapine Fumarate (Seroquel) 100 mg PO TID [facility] PRN Reason: Protocol Stop: 08/26/16 08:59 Last Admin: 07/22/16 09:10 Dose: Not Given Vitamin B Complex/Vit C/Folic Acid (Vitamin B Complex W/Vitamin C) 1 tab PO DAILY [facility] Stop: 08/23/16 08:59 Last Admin: 07/22/16 09:12 Dose: 1 tab - Procedures Procedures: Procedures Procedure Code Date ARTERY-VEIN NONAUTOGRAFT 24585 06/22/16 BYPASS L BRACH ART TO UP ARM VEIN W NONAUT SUB, OPEN [id number] 06/22/16 FLUOROSCOPY OF SUP VENA CAVA USING [facility] CONTRAST, GUIDANCE [id number] 06/22/16 INSERTION OF INFUSION DEV INTO SUP VENA CAVA, PERC APPROACH [id number] 06/22/[address] CATHETER IN VEIN [address] 06/22/16 Assessment/Plan - Problem List Patient Problems: All Active Problems MEDICAL EVALUATION PER DR FRY (Acute) - Assessment Assessment: 1. Cellulitis of legs. 2. Lymphedema of legs. 3. CKD 5 on HD. 4. Morbid obesity. 5 anemia 6 gi bleed 7 psychosis - Plan Plan: ivabx follow up labs id consult
--- NOTE | 2016-07-22 14:20 | General Progress Note ---
Subjective - Review of Systems Service Date: 07/22/16 Subjective: sleeping, no change in behaviour Objective - Results Result Diagrams: 07/22/16 05:21 07/20/16 05:50 Recent Labs: Laboratory Last Values WBC 5.0 Th/cmm (4.8-10.8) 07/22/16 05:21 RBC 2.52 Mil/cmm (4.30-5.70) L 07/22/16 05:21 Hgb 7.2 gm/dL (13.2-17.3) L* 07/22/16 05:21 Hct 21.7 % (39.0-49.0) L* 07/22/16 05:21 MCV 86.1 fl (80-99) 07/22/16 05:21 MCH 28.7 pg (26.0-30.0) 07/22/16 05:21 MCHC Differential 33.3 pg (28.0-36.0) 07/22/16 05:21 RDW 14.9 % (11.5-20.0) 07/22/16 05:21 Plt Count 143 Th/cmm (150-400) L 07/22/16 05:21 MPV 8.7 fl 07/22/16 05:21 Neutrophils % 56.8 % (40.0-80.0) 07/07/16 06:00 Band Neutrophils % 2 % (0-10) 07/20/16 23:30 Lymphocytes % 18.4 % (20.0-50.0) L 07/07/16 06:00 Monocytes % 13.8 % (2.0-10.0) H 07/07/16 06:00 Eosinophils % 11.0 % (0.0-5.0) H 07/07/16 06:00 Basophils % 0.0 % (0.0-2.0) 07/07/16 06:00 Neutrophils (Manual) 73 % (40-80) 07/22/16 05:21 Lymphocytes 6 % (20-50) L 07/22/16 05:21 Monocytes 9 % (2-10) 07/22/16 05:21 Eosinophils 12 % (0-5) H 07/22/16 05:21 Basophils 2 % (0-3) 07/05/16 12:15 Myelocytes 1 % 07/14/16 16:00 Hypochromia 1+ 07/20/16 23:30 Platelet Estimate ADEQUATE (NORMAL) 07/22/16 05:21 Platelet Morphology NORMAL (NORMAL) 07/22/16 05:21 Polychromasia 1+ 07/20/16 23:30 Anisocytosis 1+ 07/22/16 05:21 Microcytosis 1+ 07/14/16 16:00 RBC Morph Micro Appear ABNORMAL (NORMAL) 07/22/16 05:21 PT 12.7 SECONDS (9.5-11.5) H 07/01/16 06:57 INR 1.26 (0.5-1.4) 07/01/16 06:57 PTT (Actin FS) 28.3 SECONDS (26.0-38.0) 06/28/16 04:38 Specimen Source art 06/22/16 20:03 Sample Site Right Radial 06/22/16 20:03 pH 7.49 (7.35-7.45) H 06/22/16 20:03 pCO2 34.0 mmHg (35.0-45.0) L 06/22/16 20:03 pO2 97.0 mmHg (80.0-100.0) 06/22/16 20:03 HCO3 25.9 mmol/L (20.0-26.0) 06/22/16 20:03 Base Excess 2.8 mmol/L (-3.0-3.0) 06/22/16 20:03 O2 Saturation 98.0 % (92.0-100.0) 06/22/16 20:03 Estuardo Test P 06/22/16 20:03 Vent Rate NA 06/22/16 20:03 Inspired O2 21 06/22/16 20:03 Tidal Volume NA 06/22/16 20:03 PEEP NA 06/22/16 20:03 Pressure (ins/psv/peep) NA 06/22/16 20:03 Critical Value RPINEIRA 06/22/16 20:03 Sodium 132 mEq/L (136-145) L 07/20/16 05:50 Potassium 3.7 mEq/L (3.5-5.1) 07/20/16 05:50 Chloride 97 mEq/L (98-107) L 07/20/16 05:50 Carbon Dioxide 27.2 mEq/L (21.0-31.0) 07/20/16 05:50 Anion Gap 11.5 (7.0-16.0) 07/20/16 05:50 BUN 54 mg/dL (7-25) H 07/20/16 05:50 Creatinine 4.3 mg/dL (0.7-1.3) H* 07/20/16 05:50 Est GFR ( Amer) 19.0 ml/min (>90) 07/20/16 05:50 Est GFR (Non-Af Amer) 15.7 ml/min 07/20/16 05:50 BUN/Creatinine Ratio 12.6 07/20/16 05:50 Glucose 98 mg/dL (70-105) 07/20/16 05:50 Calcium 9.3 mg/dL (8.6-10.3) 07/20/16 05:50 Phosphorus 5.5 mg/dL (2.5-5.0) H 07/19/16 09:50 Magnesium 2.0 mg/dL (1.9-2.7) 07/07/16 06:00 Iron 42 ug/dL (38-169) 06/28/16 04:38 TIBC 269 ug/dL (250-450) 06/28/16 04:38 Iron Saturation 16 % (15-55) 06/28/16 04:38 Unsaturated IBC 227 ug/dL (111-343) 06/28/16 04:38 Ferritin 150 ng/mL (30-400) 06/26/16 08:30 Total Bilirubin 0.9 mg/dL (0.3-1.0) 07/14/16 06:45 Direct Bilirubin 0.70 mg/dL (0.0-0.2) H 06/28/16 04:38 GGTP 14 IU/L (0-65) 06/28/16 04:38 AST 27 U/L (13-39) 07/14/16 06:45 ALT 8 U/L (7-52) 07/14/16 06:45 Alkaline Phosphatase 42 U/L (34-104) 07/14/16 06:45 Ammonia 105 umol/L (16-53) H 07/02/16 06:40 Troponin I < 0.01 ng/mL (0.01-0.05) L 06/22/16 19:33 B-Natriuretic Peptide 668.0 pg/mL (5.0-100.0) H 06/22/16 19:33 Total Protein 7.7 gm/dL (6.0-8.3) 07/14/16 06:45 Albumin 2.8 gm/dL (4.2-5.5) L 07/14/16 06:45 Globulin 4.9 gm/dL 07/14/16 06:45 Albumin/Globulin Ratio 0.6 (1.0-1.8) L 07/14/16 06:45 Amylase 28 U/L (29-103) L 07/02/16 06:40 Lipase 31 U/L (11-82) 07/02/16 06:40 Urine Source CLEAN C 06/29/16 05:55 Urine Color YELLOW 06/29/16 05:55 Urine Clarity HAZY (CLEAR) 06/29/16 05:55 Urine pH 5.5 06/29/16 05:55 Ur Specific [place] 1.015 (1.005-1.030) 06/29/16 05:55 Urine Protein 30 mg/dL (NEGATIVE) H 06/29/16 05:55 Urine Glucose (UA) NEGATIVE mg/dL (NEGATIVE) 06/29/16 05:55 Urine Ketones NEGATIVE mg/dL (NEGATIVE) 06/29/16 05:55 Urine Blood NEGATIVE (NEGATIVE) 06/29/16 05:55 Urine Nitrate NEGATIVE (NEGATIVE) 06/29/16 05:55 Urine Bilirubin NEGATIVE (NEGATIVE) 06/29/16 05:55 Urine Urobilinogen 0.2 E.U./dL (0.2 - 1.0) 06/29/16 05:55 Ur Leukocyte Esterase TRACE (NEGATIVE) H 06/29/16 05:55 Urine RBC 0-2 /hpf (0-5) H 06/29/16 05:55 Urine WBC 6-10 /hpf (0-5) H 06/29/16 05:55 Ur Epithelial Cells FEW /lpf (FEW) 06/29/16 05:55 Urine Bacteria MANY /hpf (NONE SEEN) 06/29/16 05:55 Stool Occult Blood POSITIVE (NEGATIVE) 06/24/16 16:00 Random Vancomycin 13.4 ug/mL (5.0-40.0) 06/28/16 04:38 RPR NONREACTIVE (NONREACTIVE) 06/22/16 19:33 Hepatitis A IgM Ab Negative (Negative) 06/29/16 05:49 Hep Bs Antigen Negative (Negative) 06/29/16 05:49 Hep B Core IgM Ab Negative (Negative) 06/29/16 05:49 Hepatitis C Antibody >11.0 s/co ratio (0.0-0.9) H 06/29/16 05:49 Blood Type A POSITIVE 07/21/16 12:31 Antibody Screen NEGATIVE 07/21/16 12:31 Crossmatch See Detail 07/21/16 12:31 - Physical Exam Vitals and I&O: Vital Signs Temp 98.5 F 07/22/16 12:00 Pulse 100 07/22/16 12:17 Resp 18 07/22/16 12:00 BP 121/72 07/22/16 12:00 Pulse Ox 98 07/22/16 12:00 Intake & Output 07/21/16 07/22/16 07/22/16 18:59 06:59 18:59 Intake Total 1050 500 Output Total 1800 Balance -750 500 Intake: Oral 800 500 Blood Product 250 Output: Other 1800 Other: # Voids 2 1 Stool Characteristics Soft Soft Active Medications: Current Medications Acetaminophen (Tylenol) 325 mg PO Q6HR PRN PRN Reason: Mild Pain or Fever >101 Stop: 08/22/16 20:30 Albuterol/Ipratropium (Duoneb Neb) 3 ml HHN Q2HR PRN PRN Reason: Shortness of Breath or Wheeze Stop: 09/08/16 09:51 Aspirin (Ecotrin) 325 mg PO DAILY [facility] Stop: 09/03/16 09:14 Last Admin: 07/22/16 09:09 Dose: 325 mg Calamine/Phenol (Calmoseptine) 1 appl TP QID PRN PRN Reason: Skin Irritation Stop: 09/08/16 18:33 Last Admin: 07/20/16 09:09 Dose: 1 appl Calamine/Phenol (Calmoseptine) 1 appl TP QID [facility] Stop: 09/08/16 20:59 Last Admin: 07/22/16 12:19 Dose: 1 appl Carvedilol (Coreg) 12.5 mg PO BID [facility] Stop: 09/05/16 16:59 Last Admin: 07/22/16 09:13 Dose: Not Given Cholecalciferol (Vitamin D3) 2,000 iu PO DAILY [facility] Stop: 08/23/16 08:59 Last Admin: 07/22/16 09:10 Dose: 2,000 iu Diltiazem HCl (Cardizem) 60 mg PO Q6HR [facility] Stop: 09/04/16 11:59 Last Admin: 07/22/16 12:17 Dose: 60 mg Diphenhydramine HCl (Benadryl 50 Mg/Ml) 50 mg IM Q8HR PRN PRN Reason: Agitation Stop: 08/25/16 12:10 Docusate Sodium (Colace) 100 mg PO Q12HR [facility] Stop: 09/16/16 08:59 Last Admin: 07/22/16 09:09 Dose: 100 mg Epoetin Bernardino (Epogen) 10,000 units SUBQ TuThSa [facility] Stop: 09/19/16 13:44 Last Admin: 07/21/16 17:19 Dose: 10,000 units Haloperidol Lactate (Haldol) 5 mg IM Q8HR PRN PRN Reason: Agitation Stop: 08/25/16 12:10 Lactic Acid (Lac-Hydrin Cream) 1 appl TP BID [facility] Stop: 09/12/16 08:59 Last Admin: 07/22/16 09:13 Dose: 1 appl Lactulose (Cephulac) 20 gm PO Q8HR [facility] Stop: 09/16/16 04:59 Last Admin: 07/22/16 12:18 Dose: Not Given Levothyroxine Sodium (Synthroid) 0.05 mg PO QDAC [facility] Stop: 08/23/16 07:29 Last Admin: 07/22/16 06:59 Dose: 0.05 mg Miscellaneous (Clinical Monitoring) 1 ea MC PRN PRN PRN Reason: RENAL DOSING Stop: 08/31/16 16:27 Morphine Sulfate (Morphine) 1 mg IVP Q4HR PRN PRN Reason: Pain (Moderate) Stop: 09/16/16 00:08 Last Admin: 07/22/16 08:05 Dose: 1 mg Morphine Sulfate (Morphine) 3 mg IV Q4HR PRN PRN Reason: Pain (Severe) Stop: 09/16/16 00:34 Ondansetron HCl (Zofran Odt) 4 mg PO Q6HR PRN PRN Reason: Nausea / Vomiting Stop: 08/22/16 20:30 Pantoprazole Sodium (Protonix) 40 mg PO DAILY [facility] Stop: 08/23/16 08:59 Last Admin: 07/22/16 09:10 Dose: 40 mg Quetiapine Fumarate (Seroquel) 100 mg PO TID [facility] PRN Reason: Protocol Stop: 08/26/16 08:59 Last Admin: 07/22/16 13:49 Dose: Not Given Vitamin B Complex/Vit C/Folic Acid (Vitamin B Complex W/Vitamin C) 1 tab PO DAILY [facility] Stop: 08/23/16 08:59 Last Admin: 07/22/16 09:12 Dose: 1 tab General: No acute distress HEENT: Atraumatic, Mucous membr. moist/pink Neck: Supple, +2 carotid pulse wo bruit Cardiovascular: Regular rate, Normal S1, Normal S2 Lungs: Other (few rhonchi) Abdomen: Bowel sounds, Soft Extremities: Edema ((+) 3 bipedal edema) Neurological: Sensation intact Skin: no Rash - Procedures Procedures: Procedures Procedure Code Date ARTERY-VEIN NONAUTOGRAFT 14567 06/22/16 BYPASS L BRACH ART TO UP ARM VEIN W NONAUT SUB, OPEN [id number] 06/22/16 FLUOROSCOPY OF SUP VENA CAVA USING [facility] CONTRAST, GUIDANCE [id number] 06/22/16 INSERTION OF INFUSION DEV INTO SUP VENA CAVA, PERC APPROACH [id number] 06/22/16 PLACE CATHETER IN VEIN [address]65[address] 06/22/16 Assessment/Plan - Problem List Patient Problems: All Active Problems MEDICAL EVALUATION PER DR FRY (Acute) - Assessment Assessment: esrd on hd persistent cellulitis b/l lower ext acute on chronic anemia possible gi bleed ohs chronic a. fib hypothyroid anasarca functional quadriplegia chronic venous stasis dermatitis acute decomp psychosis hypokalemia, hypomagnesemia s/p left avg - Plan Plan: hgb/hct slightly improved to 8.2/24.8 Lab - Result Diagrams 07/19/16 09:50 Lab - Result Diagrams 07/22/16 05:21 07/20/16 05:50 07/19/16 09:50 latest hgb/hct were 7.2/21.7 transfused 1 unit PRBC placement in progress continue psych meds Lab - Result Diagrams 07/19/16 09:50 07/20/16 05:50 Lab - Result Diagrams 07/21/16 06:16 07/20/16 05:50
[2016-07-23] MEDS: Diltiazem 30 mg Tab PO SCH ×4 (03:45→18:03)
[2016-07-23] MEDS: Morphine Sulfate 2 mg/mL 1mL Syr IVP PRN ×3 (04:47→22:03)
[2016-07-23] MEDS: Lactulose 10 Gm/15 mL 30mL UDC PO SCH ×3 (06:25→22:14)
[2016-07-23] MEDS: Levothyroxine 0.05 Mg Tab PO SCH (06:41)
--- NOTE | 2016-07-23 08:38 | General Progress Note ---
Subjective - Review of Systems Service Date: 07/23/16 Subjective: pt refusing everything spoke to dr forrest yesterday renal notes noted Objective - Results Result Diagrams: 07/22/16 05:21 07/20/16 05:50 Recent Labs: Laboratory Last Values WBC 5.0 Th/cmm (4.8-10.8) 07/22/16 05:21 RBC 2.52 Mil/cmm (4.30-5.70) L 07/22/16 05:21 Hgb 7.2 gm/dL (13.2-17.3) L* 07/22/16 05:21 Hct 21.7 % (39.0-49.0) L* 07/22/16 05:21 MCV 86.1 fl (80-99) 07/22/16 05:21 MCH 28.7 pg (26.0-30.0) 07/22/16 05:21 MCHC Differential 33.3 pg (28.0-36.0) 07/22/16 05:21 RDW 14.9 % (11.5-20.0) 07/22/16 05:21 Plt Count 143 Th/cmm (150-400) L 07/22/16 05:21 MPV 8.7 fl 07/22/16 05:21 Neutrophils % 56.8 % (40.0-80.0) 07/07/16 06:00 Band Neutrophils % 2 % (0-10) 07/20/16 23:30 Lymphocytes % 18.4 % (20.0-50.0) L 07/07/16 06:00 Monocytes % 13.8 % (2.0-10.0) H 07/07/16 06:00 Eosinophils % 11.0 % (0.0-5.0) H 07/07/16 06:00 Basophils % 0.0 % (0.0-2.0) 07/07/16 06:00 Neutrophils (Manual) 73 % (40-80) 07/22/16 05:21 Lymphocytes 6 % (20-50) L 07/22/16 05:21 Monocytes 9 % (2-10) 07/22/16 05:21 Eosinophils 12 % (0-5) H 07/22/16 05:21 Basophils 2 % (0-3) 07/05/16 12:15 Myelocytes 1 % 07/14/16 16:00 Hypochromia 1+ 07/20/16 23:30 Platelet Estimate ADEQUATE (NORMAL) 07/22/16 05:21 Platelet Morphology NORMAL (NORMAL) 07/22/16 05:21 Polychromasia 1+ 07/20/16 23:30 Anisocytosis 1+ 07/22/16 05:21 Microcytosis 1+ 07/14/16 16:00 RBC Morph Micro Appear ABNORMAL (NORMAL) 07/22/16 05:21 PT 12.7 SECONDS (9.5-11.5) H 07/01/16 06:57 INR 1.26 (0.5-1.4) 07/01/16 06:57 PTT (Actin FS) 28.3 SECONDS (26.0-38.0) 06/28/16 04:38 Specimen Source art 06/22/16 20:03 Sample Site Right Radial 06/22/16 20:03 pH 7.49 (7.35-7.45) H 06/22/16 20:03 pCO2 34.0 mmHg (35.0-45.0) L 06/22/16 20:03 pO2 97.0 mmHg (80.0-100.0) 06/22/16 20:03 HCO3 25.9 mmol/L (20.0-26.0) 06/22/16 20:03 Base Excess 2.8 mmol/L (-3.0-3.0) 06/22/16 20:03 O2 Saturation 98.0 % (92.0-100.0) 06/22/16 20:03 Estuardo Test P 06/22/16 20:03 Vent Rate NA 06/22/16 20:03 Inspired O2 21 06/22/16 20:03 Tidal Volume NA 06/22/16 20:03 PEEP NA 06/22/16 20:03 Pressure (ins/psv/peep) NA 06/22/16 20:03 Critical Value RPINEIRA 06/22/16 20:03 Sodium 132 mEq/L (136-145) L 07/20/16 05:50 Potassium 3.7 mEq/L (3.5-5.1) 07/20/16 05:50 Chloride 97 mEq/L (98-107) L 07/20/16 05:50 Carbon Dioxide 27.2 mEq/L (21.0-31.0) 07/20/16 05:50 Anion Gap 11.5 (7.0-16.0) 07/20/16 05:50 BUN 54 mg/dL (7-25) H 07/20/16 05:50 Creatinine 4.3 mg/dL (0.7-1.3) H* 07/20/16 05:50 Est GFR ( Amer) 19.0 ml/min (>90) 07/20/16 05:50 Est GFR (Non-Af Amer) 15.7 ml/min 07/20/16 05:50 BUN/Creatinine Ratio 12.6 07/20/16 05:50 Glucose 98 mg/dL (70-105) 07/20/16 05:50 Calcium 9.3 mg/dL (8.6-10.3) 07/20/16 05:50 Phosphorus 5.5 mg/dL (2.5-5.0) H 07/19/16 09:50 Magnesium 2.0 mg/dL (1.9-2.7) 07/07/16 06:00 Iron 42 ug/dL (38-169) 06/28/16 04:38 TIBC 269 ug/dL (250-450) 06/28/16 04:38 Iron Saturation 16 % (15-55) 06/28/16 04:38 Unsaturated IBC 227 ug/dL (111-343) 06/28/16 04:38 Ferritin 150 ng/mL (30-400) 06/26/16 08:30 Total Bilirubin 0.9 mg/dL (0.3-1.0) 07/14/16 06:45 Direct Bilirubin 0.70 mg/dL (0.0-0.2) H 06/28/16 04:38 GGTP 14 IU/L (0-65) 06/28/16 04:38 AST 27 U/L (13-39) 07/14/16 06:45 ALT 8 U/L (7-52) 07/14/16 06:45 Alkaline Phosphatase 42 U/L (34-104) 07/14/16 06:45 Ammonia 105 umol/L (16-53) H 07/02/16 06:40 Troponin I < 0.01 ng/mL (0.01-0.05) L 06/22/16 19:33 B-Natriuretic Peptide 668.0 pg/mL (5.0-100.0) H 06/22/16 19:33 Total Protein 7.7 gm/dL (6.0-8.3) 07/14/16 06:45 Albumin 2.8 gm/dL (4.2-5.5) L 07/14/16 06:45 Globulin 4.9 gm/dL 07/14/16 06:45 Albumin/Globulin Ratio 0.6 (1.0-1.8) L 07/14/16 06:45 Amylase 28 U/L (29-103) L 07/02/16 06:40 Lipase 31 U/L (11-82) 07/02/16 06:40 Urine Source CLEAN C 06/29/16 05:55 Urine Color YELLOW 06/29/16 05:55 Urine Clarity HAZY (CLEAR) 06/29/16 05:55 Urine pH 5.5 06/29/16 05:55 Ur Specific [place] 1.015 (1.005-1.030) 06/29/16 05:55 Urine Protein 30 mg/dL (NEGATIVE) H 06/29/16 05:55 Urine Glucose (UA) NEGATIVE mg/dL (NEGATIVE) 06/29/16 05:55 Urine Ketones NEGATIVE mg/dL (NEGATIVE) 06/29/16 05:55 Urine Blood NEGATIVE (NEGATIVE) 06/29/16 05:55 Urine Nitrate NEGATIVE (NEGATIVE) 06/29/16 05:55 Urine Bilirubin NEGATIVE (NEGATIVE) 06/29/16 05:55 Urine Urobilinogen 0.2 E.U./dL (0.2 - 1.0) 06/29/16 05:55 Ur Leukocyte Esterase TRACE (NEGATIVE) H 06/29/16 05:55 Urine RBC 0-2 /hpf (0-5) H 06/29/16 05:55 Urine WBC 6-10 /hpf (0-5) H 06/29/16 05:55 Ur Epithelial Cells FEW /lpf (FEW) 06/29/16 05:55 Urine Bacteria MANY /hpf (NONE SEEN) 06/29/16 05:55 Stool Occult Blood POSITIVE (NEGATIVE) 06/24/16 16:00 Random Vancomycin 13.4 ug/mL (5.0-40.0) 06/28/16 04:38 RPR NONREACTIVE (NONREACTIVE) 06/22/16 19:33 Hepatitis A IgM Ab Negative (Negative) 06/29/16 05:49 Hep Bs Antigen Negative (Negative) 06/29/16 05:49 Hep B Core IgM Ab Negative (Negative) 06/29/16 05:49 Hepatitis C Antibody >11.0 s/co ratio (0.0-0.9) H 06/29/16 05:49 Blood Type A POSITIVE 07/21/16 12:31 Antibody Screen NEGATIVE 07/21/16 12:31 Crossmatch See Detail 07/21/16 12:31 - Physical Exam Vitals and I&O: Vital Signs Temp 98.6 F 07/23/16 04:00 Pulse 108 07/23/16 06:26 Resp 19 07/23/16 04:00 BP 105/59 07/23/16 04:00 Pulse Ox 98 07/23/16 04:00 Intake & Output 07/22/16 07/23/16 07/23/16 18:59 06:59 18:59 Intake Total 450 350 Balance 450 350 Intake: Oral 450 350 Other: # Voids 3 4 # Bowel Movements 3 Stool Characteristics Soft Soft Active Medications: Current Medications Acetaminophen (Tylenol) 325 mg PO Q6HR PRN PRN Reason: Mild Pain or Fever >101 Stop: 08/22/16 20:30 Albuterol/Ipratropium (Duoneb Neb) 3 ml HHN Q2HR PRN PRN Reason: Shortness of Breath or Wheeze Stop: 09/08/16 09:51 Aspirin (Ecotrin) 325 mg PO DAILY [facility] Stop: 09/03/16 09:14 Last Admin: 07/22/16 09:09 Dose: 325 mg Calamine/Phenol (Calmoseptine) 1 appl TP QID PRN PRN Reason: Skin Irritation Stop: 09/08/16 18:33 Last Admin: 07/20/16 09:09 Dose: 1 appl Calamine/Phenol (Calmoseptine) 1 appl TP QID [facility] Stop: 09/08/16 20:59 Last Admin: 07/22/16 20:54 Dose: Not Given Carvedilol (Coreg) 12.5 mg PO BID [facility] Stop: 09/05/16 16:59 Last Admin: 07/22/16 16:55 Dose: Not Given Cholecalciferol (Vitamin D3) 2,000 iu PO DAILY [facility] Stop: 08/23/16 08:59 Last Admin: 07/22/16 09:10 Dose: 2,000 iu Diltiazem HCl (Cardizem) 60 mg PO Q6HR [facility] Stop: 09/04/16 11:59 Last Admin: 07/23/16 06:26 Dose: Not Given Diphenhydramine HCl (Benadryl 50 Mg/Ml) 50 mg IM Q8HR PRN PRN Reason: Agitation Stop: 08/25/16 12:10 Docusate Sodium (Colace) 100 mg PO Q12HR [facility] Stop: 09/16/16 08:59 Last Admin: 07/22/16 20:48 Dose: 100 mg Epoetin Bernardino (Epogen) 10,000 units SUBQ TuThSa [facility] Stop: 09/19/16 13:44 Last Admin: 07/21/16 17:19 Dose: 10,000 units Haloperidol Lactate (Haldol) 5 mg IM Q8HR PRN PRN Reason: Agitation Stop: 08/25/16 12:10 Lactic Acid (Lac-Hydrin Cream) 1 appl TP BID [facility] Stop: 09/12/16 08:59 Last Admin: 07/22/16 16:55 Dose: Not Given Lactulose (Cephulac) 20 gm PO Q8HR [facility] Stop: 09/16/16 04:59 Last Admin: 07/23/16 06:25 Dose: Not Given Levothyroxine Sodium (Synthroid) 0.05 mg PO QDAC [facility] Stop: 08/23/16 07:29 Last Admin: 07/23/16 06:41 Dose: Not Given Miscellaneous (Clinical Monitoring) 1 ea MC PRN PRN PRN Reason: RENAL DOSING Stop: 08/31/16 16:27 Morphine Sulfate (Morphine) 1 mg IVP Q4HR PRN PRN Reason: Pain (Moderate) Stop: 09/16/16 00:08 Last Admin: 07/23/16 04:47 Dose: 1 mg Morphine Sulfate (Morphine) 3 mg IV Q4HR PRN PRN Reason: Pain (Severe) Stop: 09/16/16 00:34 Ondansetron HCl (Zofran Odt) 4 mg PO Q6HR PRN PRN Reason: Nausea / Vomiting Stop: 08/22/16 20:30 Pantoprazole Sodium (Protonix) 40 mg PO DAILY [facility] Stop: 08/23/16 08:59 Last Admin: 07/22/16 09:10 Dose: 40 mg Quetiapine Fumarate (Seroquel) 100 mg PO TID [facility] PRN Reason: Protocol Stop: 08/26/16 08:59 Last Admin: 07/22/16 20:54 Dose: Not Given Vitamin B Complex/Vit C/Folic Acid (Vitamin B Complex W/Vitamin C) 1 tab PO DAILY [facility] Stop: 08/23/16 08:59 Last Admin: 07/22/16 09:12 Dose: 1 tab General: No acute distress HEENT: Atraumatic, PERRLA Neck: Supple, JVD Cardiovascular: Regular rate Abdomen: Bowel sounds Neurological: Normal gait - Procedures Procedures: Procedures Procedure Code Date ARTERY-VEIN NONAUTOGRAFT 87252 06/22/16 BYPASS L BRACH ART TO UP ARM VEIN W NONAUT SUB, OPEN [id number] 06/22/16 FLUOROSCOPY OF SUP VENA CAVA USING [facility] CONTRAST, GUIDANCE [id number] 06/22/16 INSERTION OF INFUSION DEV INTO SUP VENA CAVA, PERC APPROACH [id number] 06/22/[address] PL[address] CATHETER IN VEIN [address]694 06/22/16 Assessment/Plan - Problem List Patient Problems: All Active Problems MEDICAL EVALUATION PER DR FRY (Acute) - Assessment Assessment: 1. Cellulitis of legs. 2. Lymphedema of legs. 3. CKD 5 on HD. 4. Morbid obesity. 5 anemia 6 gi bleed 7 psychosis - Plan Plan: ivabx follow up labs id consult
[2016-07-23] MEDS: Vitamin B Complex w/Vitamin C Tab PO SCH (09:02)
[2016-07-23] MEDS: Aspirin 325 mg EC PO SCH (09:32)
[2016-07-23] MEDS: Pantoprazole 40 mg EC Tab PO SCH (09:33)
[2016-07-23] MEDS: Ammonium Lactate Cream 140 gm Tube TP SCH ×2 (09:35→18:03)
[2016-07-23] MEDS: Menthol/Zinc Oxide Oint 113gm Tube TP SCH ×4 (09:35→22:14)
--- NOTE | 2016-07-23 11:48 | General Progress Note ---
Subjective - Review of Systems Service Date: 07/23/16 Subjective: sleeping, no change in behaviour Objective - Results Result Diagrams: 07/22/16 05:21 07/20/16 05:50 Recent Labs: Laboratory Last Values WBC 5.0 Th/cmm (4.8-10.8) 07/22/16 05:21 RBC 2.52 Mil/cmm (4.30-5.70) L 07/22/16 05:21 Hgb 7.2 gm/dL (13.2-17.3) L* 07/22/16 05:21 Hct 21.7 % (39.0-49.0) L* 07/22/16 05:21 MCV 86.1 fl (80-99) 07/22/16 05:21 MCH 28.7 pg (26.0-30.0) 07/22/16 05:21 MCHC Differential 33.3 pg (28.0-36.0) 07/22/16 05:21 RDW 14.9 % (11.5-20.0) 07/22/16 05:21 Plt Count 143 Th/cmm (150-400) L 07/22/16 05:21 MPV 8.7 fl 07/22/16 05:21 Neutrophils % 56.8 % (40.0-80.0) 07/07/16 06:00 Band Neutrophils % 2 % (0-10) 07/20/16 23:30 Lymphocytes % 18.4 % (20.0-50.0) L 07/07/16 06:00 Monocytes % 13.8 % (2.0-10.0) H 07/07/16 06:00 Eosinophils % 11.0 % (0.0-5.0) H 07/07/16 06:00 Basophils % 0.0 % (0.0-2.0) 07/07/16 06:00 Neutrophils (Manual) 73 % (40-80) 07/22/16 05:21 Lymphocytes 6 % (20-50) L 07/22/16 05:21 Monocytes 9 % (2-10) 07/22/16 05:21 Eosinophils 12 % (0-5) H 07/22/16 05:21 Basophils 2 % (0-3) 07/05/16 12:15 Myelocytes 1 % 07/14/16 16:00 Hypochromia 1+ 07/20/16 23:30 Platelet Estimate ADEQUATE (NORMAL) 07/22/16 05:21 Platelet Morphology NORMAL (NORMAL) 07/22/16 05:21 Polychromasia 1+ 07/20/16 23:30 Anisocytosis 1+ 07/22/16 05:21 Microcytosis 1+ 07/14/16 16:00 RBC Morph Micro Appear ABNORMAL (NORMAL) 07/22/16 05:21 PT 12.7 SECONDS (9.5-11.5) H 07/01/16 06:57 INR 1.26 (0.5-1.4) 07/01/16 06:57 PTT (Actin FS) 28.3 SECONDS (26.0-38.0) 06/28/16 04:38 Specimen Source art 06/22/16 20:03 Sample Site Right Radial 06/22/16 20:03 pH 7.49 (7.35-7.45) H 06/22/16 20:03 pCO2 34.0 mmHg (35.0-45.0) L 06/22/16 20:03 pO2 97.0 mmHg (80.0-100.0) 06/22/16 20:03 HCO3 25.9 mmol/L (20.0-26.0) 06/22/16 20:03 Base Excess 2.8 mmol/L (-3.0-3.0) 06/22/16 20:03 O2 Saturation 98.0 % (92.0-100.0) 06/22/16 20:03 Estuarod Test P 06/22/16 20:03 Vent Rate NA 06/22/16 20:03 Inspired O2 21 06/22/16 20:03 Tidal Volume NA 06/22/16 20:03 PEEP NA 06/22/16 20:03 Pressure (ins/psv/peep) NA 06/22/16 20:03 Critical Value RPINEIRA 06/22/16 20:03 Sodium 132 mEq/L (136-145) L 07/20/16 05:50 Potassium 3.7 mEq/L (3.5-5.1) 07/20/16 05:50 Chloride 97 mEq/L (98-107) L 07/20/16 05:50 Carbon Dioxide 27.2 mEq/L (21.0-31.0) 07/20/16 05:50 Anion Gap 11.5 (7.0-16.0) 07/20/16 05:50 BUN 54 mg/dL (7-25) H 07/20/16 05:50 Creatinine 4.3 mg/dL (0.7-1.3) H* 07/20/16 05:50 Est GFR ( Amer) 19.0 ml/min (>90) 07/20/16 05:50 Est GFR (Non-Af Amer) 15.7 ml/min 07/20/16 05:50 BUN/Creatinine Ratio 12.6 07/20/16 05:50 Glucose 98 mg/dL (70-105) 07/20/16 05:50 Calcium 9.3 mg/dL (8.6-10.3) 07/20/16 05:50 Phosphorus 5.5 mg/dL (2.5-5.0) H 07/19/16 09:50 Magnesium 2.0 mg/dL (1.9-2.7) 07/07/16 06:00 Iron 42 ug/dL (38-169) 06/28/16 04:38 TIBC 269 ug/dL (250-450) 06/28/16 04:38 Iron Saturation 16 % (15-55) 06/28/16 04:38 Unsaturated IBC 227 ug/dL (111-343) 06/28/16 04:38 Ferritin 150 ng/mL (30-400) 06/26/16 08:30 Total Bilirubin 0.9 mg/dL (0.3-1.0) 07/14/16 06:45 Direct Bilirubin 0.70 mg/dL (0.0-0.2) H 06/28/16 04:38 GGTP 14 IU/L (0-65) 06/28/16 04:38 AST 27 U/L (13-39) 07/14/16 06:45 ALT 8 U/L (7-52) 07/14/16 06:45 Alkaline Phosphatase 42 U/L (34-104) 07/14/16 06:45 Ammonia 105 umol/L (16-53) H 07/02/16 06:40 Troponin I < 0.01 ng/mL (0.01-0.05) L 06/22/16 19:33 B-Natriuretic Peptide 668.0 pg/mL (5.0-100.0) H 06/22/16 19:33 Total Protein 7.7 gm/dL (6.0-8.3) 07/14/16 06:45 Albumin 2.8 gm/dL (4.2-5.5) L 07/14/16 06:45 Globulin 4.9 gm/dL 07/14/16 06:45 Albumin/Globulin Ratio 0.6 (1.0-1.8) L 07/14/16 06:45 Amylase 28 U/L (29-103) L 07/02/16 06:40 Lipase 31 U/L (11-82) 07/02/16 06:40 Urine Source CLEAN C 06/29/16 05:55 Urine Color YELLOW 06/29/16 05:55 Urine Clarity HAZY (CLEAR) 06/29/16 05:55 Urine pH 5.5 06/29/16 05:55 Ur Specific [place] 1.015 (1.005-1.030) 06/29/16 05:55 Urine Protein 30 mg/dL (NEGATIVE) H 06/29/16 05:55 Urine Glucose (UA) NEGATIVE mg/dL (NEGATIVE) 06/29/16 05:55 Urine Ketones NEGATIVE mg/dL (NEGATIVE) 06/29/16 05:55 Urine Blood NEGATIVE (NEGATIVE) 06/29/16 05:55 Urine Nitrate NEGATIVE (NEGATIVE) 06/29/16 05:55 Urine Bilirubin NEGATIVE (NEGATIVE) 06/29/16 05:55 Urine Urobilinogen 0.2 E.U./dL (0.2 - 1.0) 06/29/16 05:55 Ur Leukocyte Esterase TRACE (NEGATIVE) H 06/29/16 05:55 Urine RBC 0-2 /hpf (0-5) H 06/29/16 05:55 Urine WBC 6-10 /hpf (0-5) H 06/29/16 05:55 Ur Epithelial Cells FEW /lpf (FEW) 06/29/16 05:55 Urine Bacteria MANY /hpf (NONE SEEN) 06/29/16 05:55 Stool Occult Blood POSITIVE (NEGATIVE) 06/24/16 16:00 Random Vancomycin 13.4 ug/mL (5.0-40.0) 06/28/16 04:38 RPR NONREACTIVE (NONREACTIVE) 06/22/16 19:33 Hepatitis A IgM Ab Negative (Negative) 06/29/16 05:49 Hep Bs Antigen Negative (Negative) 06/29/16 05:49 Hep B Core IgM Ab Negative (Negative) 06/29/16 05:49 Hepatitis C Antibody >11.0 s/co ratio (0.0-0.9) H 06/29/16 05:49 Blood Type A POSITIVE 07/21/16 12:31 Antibody Screen NEGATIVE 07/21/16 12:31 Crossmatch See Detail 07/21/16 12:31 - Physical Exam Vitals and I&O: Vital Signs Temp 98.6 F 07/23/16 04:00 Pulse 87 07/23/16 09:32 Resp 19 07/23/16 04:00 BP 111/64 07/23/16 09:32 Pulse Ox 98 07/23/16 04:00 Intake & Output 07/22/16 07/23/16 07/23/16 18:59 06:59 18:59 Intake Total 450 350 Balance 450 350 Intake: Oral 450 350 Other: # Voids 3 4 # Bowel Movements 3 Stool Characteristics Soft Soft Active Medications: Current Medications Acetaminophen (Tylenol) 325 mg PO Q6HR PRN PRN Reason: Mild Pain or Fever >101 Stop: 08/22/16 20:30 Albuterol/Ipratropium (Duoneb Neb) 3 ml HHN Q2HR PRN PRN Reason: Shortness of Breath or Wheeze Stop: 09/08/16 09:51 Aspirin (Ecotrin) 325 mg PO DAILY [facility] Stop: 09/03/16 09:14 Last Admin: 07/23/16 09:32 Dose: 325 mg Calamine/Phenol (Calmoseptine) 1 appl TP QID PRN PRN Reason: Skin Irritation Stop: 09/08/16 18:33 Last Admin: 07/20/16 09:09 Dose: 1 appl Calamine/Phenol (Calmoseptine) 1 appl TP QID [facility] Stop: 09/08/16 20:59 Last Admin: 07/23/16 09:35 Dose: 1 appl Carvedilol (Coreg) 12.5 mg PO BID [facility] Stop: 09/05/16 16:59 Last Admin: 07/23/16 09:32 Dose: 12.5 mg Cholecalciferol (Vitamin D3) 2,000 iu PO DAILY [facility] Stop: 08/23/16 08:59 Last Admin: 07/23/16 09:32 Dose: 2,000 iu Diltiazem HCl (Cardizem) 60 mg PO Q6HR [facility] Stop: 09/04/16 11:59 Last Admin: 07/23/16 06:26 Dose: Not Given Diphenhydramine HCl (Benadryl 50 Mg/Ml) 50 mg IM Q8HR PRN PRN Reason: Agitation Stop: 08/25/16 12:10 Docusate Sodium (Colace) 100 mg PO Q12HR [facility] Stop: 09/16/16 08:59 Last Admin: 07/23/16 09:32 Dose: 100 mg Epoetin Bernardino (Epogen) 10,000 units SUBQ TuThSa [facility] Stop: 09/19/16 13:44 Last Admin: 07/21/16 17:19 Dose: 10,000 units Haloperidol Lactate (Haldol) 5 mg IM Q8HR PRN PRN Reason: Agitation Stop: 08/25/16 12:10 Lactic Acid (Lac-Hydrin Cream) 1 appl TP BID [facility] Stop: 09/12/16 08:59 Last Admin: 07/23/16 09:35 Dose: 1 appl Lactulose (Cephulac) 20 gm PO Q8HR [facility] Stop: 09/16/16 04:59 Last Admin: 07/23/16 06:25 Dose: Not Given Levothyroxine Sodium (Synthroid) 0.05 mg PO QDAC [facility] Stop: 08/23/16 07:29 Last Admin: 07/23/16 06:41 Dose: Not Given Miscellaneous (Clinical Monitoring) 1 ea MC PRN PRN PRN Reason: RENAL DOSING Stop: 08/31/16 16:27 Morphine Sulfate (Morphine) 1 mg IVP Q4HR PRN PRN Reason: Pain (Moderate) Stop: 09/16/16 00:08 Last Admin: 07/23/16 09:23 Dose: 1 mg Morphine Sulfate (Morphine) 3 mg IV Q4HR PRN PRN Reason: Pain (Severe) Stop: 09/16/16 00:34 Ondansetron HCl (Zofran Odt) 4 mg PO Q6HR PRN PRN Reason: Nausea / Vomiting Stop: 08/22/16 20:30 Pantoprazole Sodium (Protonix) 40 mg PO DAILY [facility] Stop: 08/23/16 08:59 Last Admin: 07/23/16 09:33 Dose: 40 mg Quetiapine Fumarate (Seroquel) 100 mg PO TID [facility] PRN Reason: Protocol Stop: 08/26/16 08:59 Last Admin: 07/23/16 09:32 Dose: 100 mg Vitamin B Complex/Vit C/Folic Acid (Vitamin B Complex W/Vitamin C) 1 tab PO DAILY [facility] Stop: 08/23/16 08:59 Last Admin: 07/22/16 09:12 Dose: 1 tab General: Alert, No acute distress HEENT: Atraumatic, Mucous membr. moist/pink Neck: Supple, +2 carotid pulse wo bruit Cardiovascular: Regular rate, Normal S1, Normal S2 Lungs: Other (few rhoncchi) Abdomen: Bowel sounds, Soft Extremities: Edema Neurological: Sensation intact Skin: Rash ((+) 3 bipedal) - Procedures Procedures: Procedures Procedure Code Date ARTERY-VEIN NONAUTOGRAFT 74207 06/22/16 BYPASS L BRACH ART TO UP ARM VEIN W NONAUT SUB, OPEN [id number] 06/22/16 FLUOROSCOPY OF SUP VENA CAVA USING OT CONTRAST, GUIDANCE [id number] 06/22/16 INSERTION OF INFUSION DEV INTO SUP VENA CAVA, PERC APPROACH [id number] 06/22/16 PLACE CATHETER IN VEIN 60817 06/22/16 Assessment/Plan - Problem List Patient Problems: All Active Problems MEDICAL EVALUATION PER DR FRY (Acute) - Assessment Assessment: esrd on hd persistent cellulitis b/l lower ext acute on chronic anemia possible gi bleed ohs chronic a. fib hypothyroid anasarca functional quadriplegia chronic venous stasis dermatitis acute decomp psychosis hypokalemia, hypomagnesemia s/p left avg - Plan Plan: hgb/hct slightly improved to 8.2/24.8 Lab - Result Diagrams 07/19/16 09:50 Lab - Result Diagrams 07/22/16 05:21 07/20/16 05:50 07/19/16 09:50 latest hgb/hct were 7.2/21.7 transfused 1 unit PRBC placement in progress continue psych meds Lab - Result Diagrams 07/19/16 09:50 07/20/16 05:50 Lab - Result Diagrams 07/21/16 06:16 07/20/16 05:50
[2016-07-24] MEDS: Diltiazem 30 mg Tab PO SCH ×2 (01:14→06:01)
--- NOTE | 2016-07-24 04:57 | Progress Notes ---
SUBJECTIVE: The patient was seen in his room. The patient is still complaining regarding his transfer to nursing facility. Informed the patient that there are some issues going on in regard with his insurance, but caseworker is already working on it and they are still getting in touch and trying to hold a bed for him from a half-way facility in [place]. OBJECTIVE: HEENT: Head is atraumatic, normocephalic. Bilateral pupils equally round and reactive. CARDIOVASCULAR: S1 and S2 heard without murmur, irregularly. LUNGS: Mild end-inspiratory wheezing. GASTROINTESTINAL: Soft and nontender. Positive bowel sounds. No guarding. EXTREMITIES: Bilateral lower extremity edema noted. ASSESSMENT: 1. End-stage renal disease, hemodialysis dependent. 2. Chronic anemia. 3. Chronic atrial fibrillation. 4. Lymphedema, bilateral lower extremities. 5. Hypothyroidism. 6. Quadriplegia. 7. Obesity. 8. Schizophrenia. PLAN: We will follow up with the caseworker regarding possible transfer or discharge to the half-way facility. JOB# [id number]
[2016-07-24 05:51] LABS: ANION GAP 13.4 (7.0-16.0); BUN/CREATININE RATIO 13.4; CALCIUM SERUM 9.3 mg/dL (8.6-10.3); CARBON DIOXIDE 25.7 mEq/L (21.0-31.0); POTASSIUM SERUM 4.1 mEq/L (3.5-5.1)
[2016-07-24] MEDS: Lactulose 10 Gm/15 mL 30mL UDC PO SCH ×2 (06:01→14:12)
[2016-07-24 06:36] LABS: CREATININE - SERUM 4.7 mg/dL (0.7-1.3)
[2016-07-24 07:01] LABS: MEAN CORPUSCULAR HEMOGLOBIN 28.6 pg (26.0-30.0); MEAN CORPUSCULAR HGB CONC 33.3 pg (28.0-36.0); MEAN PLATELET VOLUME 9.5 fl; PLATELET COUNT 123 Th/cmm (150-400); RED BLOOD COUNT 2.51 Mil/cmm (4.30-5.70); RED CELL DISTRIBUTION WIDTH 15.1 % (11.5-20.0)
[2016-07-24 07:06] LABS: HEMATOCRIT 21.5 % (39.0-49.0); HEMOGLOBIN 7.2 gm/dL (13.2-17.3); WHITE BLOOD COUNT 3.6 Th/cmm (4.8-10.8)
[2016-07-24] MEDS: Menthol/Zinc Oxide Oint 113gm Tube TP SCH ×4 (08:39→20:27)
[2016-07-24] MEDS: Pantoprazole 40 mg EC Tab PO SCH (08:39)
[2016-07-24] MEDS: Aspirin 325 mg EC PO SCH (08:39)
[2016-07-24] MEDS: Levothyroxine 0.05 Mg Tab PO SCH (08:39)
[2016-07-24] MEDS: Vitamin B Complex w/Vitamin C Tab PO SCH (08:39)
[2016-07-24] MEDS: Ammonium Lactate Cream 140 gm Tube TP SCH ×2 (08:39→17:16)
[2016-07-24 10:17] LABS: ANISOCYTOSIS 1+; BAND NEUTROPHILE 1 % (0-10); BASOPHIL 1 % (0-3); EOSINOPHIL 8 % (0-5); NEUTROPHILS 68 % (40-80); PLATELET ESTIMATE DECREASED PLATELETS (NORMAL); PLATELET MORPHOLOGY NORMAL (NORMAL); TOTAL CELLS COUNTED 100
--- NOTE | 2016-07-24 13:18 | General Progress Note ---
Subjective - Review of Systems Service Date: 07/24/16 Subjective: pt refusing everything spoke to dr forrest yesterday renal notes noted Objective - Results Result Diagrams: 07/24/16 05:00 07/24/16 05:00 Recent Labs: Laboratory Last Values WBC 3.6 Th/cmm (4.8-10.8) L D 07/24/16 05:00 RBC 2.51 Mil/cmm (4.30-5.70) L 07/24/16 05:00 Hgb 7.2 gm/dL (13.2-17.3) L* 07/24/16 05:00 Hct 21.5 % (39.0-49.0) L* 07/24/16 05:00 MCV 86.0 fl (80-99) 07/24/16 05:00 MCH 28.6 pg (26.0-30.0) 07/24/16 05:00 MCHC Differential 33.3 pg (28.0-36.0) 07/24/16 05:00 RDW 15.1 % (11.5-20.0) 07/24/16 05:00 Plt Count 123 Th/cmm (150-400) L 07/24/16 05:00 MPV 9.5 fl 07/24/16 05:00 Neutrophils % 56.8 % (40.0-80.0) 07/07/16 06:00 Band Neutrophils % 1 % (0-10) 07/24/16 05:00 Lymphocytes % 18.4 % (20.0-50.0) L 07/07/16 06:00 Monocytes % 13.8 % (2.0-10.0) H 07/07/16 06:00 Eosinophils % 11.0 % (0.0-5.0) H 07/07/16 06:00 Basophils % 0.0 % (0.0-2.0) 07/07/16 06:00 Neutrophils (Manual) 68 % (40-80) 07/24/16 05:00 Lymphocytes 13 % (20-50) L 07/24/16 05:00 Monocytes 9 % (2-10) 07/24/16 05:00 Eosinophils 8 % (0-5) H 07/24/16 05:00 Basophils 1 % (0-3) 07/24/16 05:00 Myelocytes 1 % 02/25/17 16:00 Hypochromia 1+ 07/20/16 23:30 Platelet Estimate DECREASED PLATELETS (NORMAL) 07/24/16 05:00 Platelet Morphology NORMAL (NORMAL) 07/24/16 05:00 Polychromasia 1+ 07/20/16 23:30 Anisocytosis 1+ 07/24/16 05:00 Microcytosis 1+ 07/14/16 16:00 RBC Morph Micro Appear ABNORMAL (NORMAL) 07/24/16 05:00 PT 12.7 SECONDS (9.5-11.5) H 07/01/16 06:57 INR 1.26 (0.5-1.4) 07/01/16 06:57 PTT (Actin FS) 28.3 SECONDS (26.0-38.0) 06/28/16 04:38 Specimen Source art 06/22/16 20:03 Sample Site Right Radial 06/22/16 20:03 pH 7.49 (7.35-7.45) H 06/22/16 20:03 pCO2 34.0 mmHg (35.0-45.0) L 06/22/16 20:03 pO2 97.0 mmHg (80.0-100.0) 06/22/16 20:03 HCO3 25.9 mmol/L (20.0-26.0) 06/22/16 20:03 Base Excess 2.8 mmol/L (-3.0-3.0) 06/22/16 20:03 O2 Saturation 98.0 % (92.0-100.0) 06/22/16 20:03 [place] Test P 06/22/16 20:03 Vent Rate NA 06/22/16 20:03 Inspired O2 21 06/22/16 20:03 Tidal Volume NA 06/22/16 20:03 PEEP NA 06/22/16 20:03 Pressure (ins/psv/peep) NA 06/22/16 20:03 Critical Value RPINEIRA 06/22/16 20:03 Sodium 130 mEq/L (136-145) L 07/24/16 05:00 Potassium 4.1 mEq/L (3.5-5.1) 07/24/16 05:00 Chloride 95 mEq/L (98-107) L 07/24/16 05:00 Carbon Dioxide 25.7 mEq/L (21.0-31.0) 07/24/16 05:00 Anion Gap 13.4 (7.0-16.0) 07/24/16 05:00 BUN 63 mg/dL (7-25) H 07/24/16 05:00 Creatinine 4.7 mg/dL (0.7-1.3) H* 07/24/16 05:00 Est GFR ( Amer) 17.1 ml/min (>90) 07/24/16 05:00 Est GFR (Non-Af Amer) 14.2 ml/min 07/24/16 05:00 BUN/Creatinine Ratio 13.4 07/24/16 05:00 Glucose 120 mg/dL (70-105) H 07/24/16 05:00 Calcium 9.3 mg/dL (8.6-10.3) 07/24/16 05:00 Phosphorus 5.5 mg/dL (2.5-5.0) H 07/19/16 09:50 Magnesium 2.0 mg/dL (1.9-2.7) 07/07/16 06:00 Iron 42 ug/dL (38-169) 06/28/16 04:38 TIBC 269 ug/dL (250-450) 06/28/16 04:38 Iron Saturation 16 % (15-55) 06/28/16 04:38 Unsaturated IBC 227 ug/dL (111-343) 06/28/16 04:38 Ferritin 150 ng/mL (30-400) 06/26/16 08:30 Total Bilirubin 0.9 mg/dL (0.3-1.0) 07/14/16 06:45 Direct Bilirubin 0.70 mg/dL (0.0-0.2) H 06/28/16 04:38 GGTP 14 IU/L (0-65) 06/28/16 04:38 AST 27 U/L (13-39) 07/14/16 06:45 ALT 8 U/L (7-52) 07/14/16 06:45 Alkaline Phosphatase 42 U/L (34-104) 07/14/16 06:45 Ammonia 105 umol/L (16-53) H 07/02/16 06:40 Troponin I < 0.01 ng/mL (0.01-0.05) L 06/22/16 19:33 B-Natriuretic Peptide 668.0 pg/mL (5.0-100.0) H 06/22/16 19:33 Total Protein 7.7 gm/dL (6.0-8.3) 07/14/16 06:45 Albumin 2.8 gm/dL (4.2-5.5) L 07/14/16 06:45 Globulin 4.9 gm/dL 07/14/16 06:45 Albumin/Globulin Ratio 0.6 (1.0-1.8) L 07/14/16 06:45 Amylase 28 U/L (29-103) L 07/02/16 06:40 Lipase 31 U/L (11-82) 07/02/16 06:40 Urine Source CLEAN C 06/29/16 05:55 Urine Color YELLOW 06/29/16 05:55 Urine Clarity HAZY (CLEAR) 06/29/16 05:55 Urine pH 5.5 06/29/16 05:55 Ur Specific [place] 1.015 (1.005-1.030) 06/29/16 05:55 Urine Protein 30 mg/dL (NEGATIVE) H 06/29/16 05:55 Urine Glucose (UA) NEGATIVE mg/dL (NEGATIVE) 06/29/16 05:55 Urine Ketones NEGATIVE mg/dL (NEGATIVE) 06/29/16 05:55 Urine Blood NEGATIVE (NEGATIVE) 06/29/16 05:55 Urine Nitrate NEGATIVE (NEGATIVE) 06/29/16 05:55 Urine Bilirubin NEGATIVE (NEGATIVE) 06/29/16 05:55 Urine Urobilinogen 0.2 E.U./dL (0.2 - 1.0) 06/29/16 05:55 Ur Leukocyte Esterase TRACE (NEGATIVE) H 06/29/16 05:55 Urine RBC 0-2 /hpf (0-5) H 06/29/16 05:55 Urine WBC 6-10 /hpf (0-5) H 06/29/16 05:55 Ur Epithelial Cells FEW /lpf (FEW) 06/29/16 05:55 Urine Bacteria MANY /hpf (NONE SEEN) 06/29/16 05:55 Stool Occult Blood POSITIVE (NEGATIVE) 06/24/16 16:00 Random Vancomycin 13.4 ug/mL (5.0-40.0) 06/28/16 04:38 RPR NONREACTIVE (NONREACTIVE) 06/22/16 19:33 Hepatitis A IgM Ab Negative (Negative) 06/29/16 05:49 Hep Bs Antigen Negative (Negative) 06/29/16 05:49 Hep B Core IgM Ab Negative (Negative) 06/29/16 05:49 Hepatitis C Antibody >11.0 s/co ratio (0.0-0.9) H 06/29/16 05:49 Blood Type A POSITIVE 07/21/16 12:31 Antibody Screen NEGATIVE 07/21/16 12:31 Crossmatch See Detail 07/21/16 12:31 - Physical Exam Vitals and I&O: Vital Signs Temp 97.5 F 07/24/16 08:00 Pulse 94 07/24/16 08:00 Resp 20 07/24/16 08:00 BP 114/70 07/24/16 08:00 Pulse Ox 99 07/24/16 08:00 Intake & Output 07/23/16 07/24/16 07/24/16 18:59 06:59 18:59 Intake Total 100 Output Total 100 Balance 0 Intake: Oral 100 Output: Urine 100 Other: # Voids 2 Stool Characteristics Formed Formed Active Medications: Current Medications Albuterol/Ipratropium (Duoneb Neb) 3 ml HHN Q2HR PRN PRN Reason: Shortness of Breath or Wheeze Stop: 09/08/16 09:51 Aspirin (Ecotrin) 325 mg PO DAILY [facility] Stop: 09/03/16 09:14 Last Admin: 07/24/16 08:39 Dose: 325 mg Calamine/Phenol (Calmoseptine) 1 appl TP QID PRN PRN Reason: Skin Irritation Stop: 09/08/16 18:33 Last Admin: 07/20/16 09:09 Dose: 1 appl Calamine/Phenol (Calmoseptine) 1 appl TP QID [facility] Stop: 09/08/16 20:59 Last Admin: 07/24/16 08:39 Dose: 1 appl Cholecalciferol (Vitamin D3) 2,000 iu PO DAILY [facility] Stop: 08/23/16 08:59 Last Admin: 07/24/16 08:39 Dose: 2,000 iu Diphenhydramine HCl (Benadryl 50 Mg/Ml) 50 mg IM Q8HR PRN PRN Reason: Agitation Stop: 08/25/16 12:10 Docusate Sodium (Colace) 100 mg PO Q12HR [facility] Stop: 09/16/16 08:59 Last Admin: 07/24/16 08:39 Dose: 100 mg Epoetin Bernardion (Epogen) 10,000 units SUBQ TuThSa [facility] Stop: 09/19/16 13:44 Last Admin: 07/21/16 17:19 Dose: 10,000 units Haloperidol Lactate (Haldol) 5 mg IM Q8HR PRN PRN Reason: Agitation Stop: 08/25/16 12:10 Lactic Acid (Lac-Hydrin Cream) 1 appl TP BID [facility] Stop: 09/12/16 08:59 Last Admin: 07/24/16 08:39 Dose: 1 appl Lactulose (Cephulac) 20 gm PO Q8HR [facility] Stop: 09/16/16 04:59 Last Admin: 07/24/16 06:01 Dose: Not Given Levothyroxine Sodium (Synthroid) 0.05 mg PO QDAC [facility] Stop: 08/23/16 07:29 Last Admin: 07/24/16 08:39 Dose: 0.05 mg Miscellaneous (Clinical Monitoring) 1 ea MC PRN PRN PRN Reason: RENAL DOSING Stop: 08/31/16 16:27 Morphine Sulfate (Morphine) 1 mg IVP Q4HR PRN PRN Reason: Pain (Moderate) Stop: 09/16/16 00:08 Last Admin: 07/23/16 22:03 Dose: 1 mg Morphine Sulfate (Morphine) 3 mg IV Q4HR PRN PRN Reason: Pain (Severe) Stop: 09/16/16 00:34 Pantoprazole Sodium (Protonix) 40 mg PO DAILY [facility] Stop: 08/23/16 08:59 Last Admin: 07/24/16 08:39 Dose: 40 mg Quetiapine Fumarate (Seroquel) 100 mg PO TID [facility] PRN Reason: Protocol Stop: 08/26/16 08:59 Last Admin: 07/24/16 08:39 Dose: 100 mg Vitamin B Complex/Vit C/Folic Acid (Vitamin B Complex W/Vitamin C) 1 tab PO DAILY [facility] Stop: 08/23/16 08:59 Last Admin: 07/24/16 08:39 Dose: 1 tab General: Alert HEENT: Atraumatic, PERRLA Neck: Supple Cardiovascular: Regular rate Lungs: Clear to auscultation Abdomen: Bowel sounds - Procedures Procedures: Procedures Procedure Code Date ARTERY-VEIN NONAUTOGRAFT 61446 06/22/16 BLOOD TRANSFUSION SERVICE 38845 06/22/16 BYPASS L BRACH ART TO UP ARM VEIN W NONAUT SUB, OPEN [id number] 06/22/16 FLUOROSCOPY OF SUP VENA CAVA USING [facility] CONTRAST, GUIDANCE [id number] 06/22/16 INSERTION OF INFUSION DEV INTO SUP VENA CAVA, PERC APPROACH [id number] 06/22/[address] PL[address] CATHETER IN VEIN 19045 06/22/16 TRANSFUSE NONAUT RED BLOOD CELLS IN PERIPH VEIN, PERC [id number] 06/22/16 Assessment/Plan - Problem List Patient Problems: All Active Problems MEDICAL EVALUATION PER DR FRY (Acute) - Assessment Assessment: 1. Cellulitis of legs. 2. Lymphedema of legs. 3. CKD 5 on HD. 4. Morbid obesity. 5 anemia 6 gi bleed 7 psychosis - Plan Plan: ivabx follow up labs id consult
--- NOTE | 2016-07-24 14:18 | General Progress Note ---
Subjective - Review of Systems Service Date: 07/24/16 Subjective: sleeping, no change in behaviour Objective - Results Result Diagrams: 07/24/16 05:00 07/24/16 05:00 Recent Labs: Laboratory Last Values WBC 3.6 Th/cmm (4.8-10.8) L D 07/24/16 05:00 RBC 2.51 Mil/cmm (4.30-5.70) L 07/24/16 05:00 Hgb 7.2 gm/dL (13.2-17.3) L* 07/24/16 05:00 Hct 21.5 % (39.0-49.0) L* 07/24/16 05:00 MCV 86.0 fl (80-99) 07/24/16 05:00 MCH 28.6 pg (26.0-30.0) 07/24/16 05:00 MCHC Differential 33.3 pg (28.0-36.0) 07/24/16 05:00 RDW 15.1 % (11.5-20.0) 07/24/16 05:00 Plt Count 123 Th/cmm (150-400) L 07/24/16 05:00 MPV 9.5 fl 07/24/16 05:00 Neutrophils % 56.8 % (40.0-80.0) 07/07/16 06:00 Band Neutrophils % 1 % (0-10) 07/24/16 05:00 Lymphocytes % 18.4 % (20.0-50.0) L 07/07/16 06:00 Monocytes % 13.8 % (2.0-10.0) H 07/07/16 06:00 Eosinophils % 11.0 % (0.0-5.0) H 07/07/16 06:00 Basophils % 0.0 % (0.0-2.0) 07/07/16 06:00 Neutrophils (Manual) 68 % (40-80) 07/24/16 05:00 Lymphocytes 13 % (20-50) L 07/24/16 05:00 Monocytes 9 % (2-10) 07/24/16 05:00 Eosinophils 8 % (0-5) H 07/24/16 05:00 Basophils 1 % (0-3) 07/24/16 05:00 Myelocytes 1 % 07/14/16 16:00 Hypochromia 1+ 07/20/16 23:30 Platelet Estimate DECREASED PLATELETS (NORMAL) 07/24/16 05:00 Platelet Morphology NORMAL (NORMAL) 07/24/16 05:00 Polychromasia 1+ 07/20/16 23:30 Anisocytosis 1+ 07/24/16 05:00 Microcytosis 1+ 07/14/16 16:00 RBC Morph Micro Appear ABNORMAL (NORMAL) 07/24/16 05:00 PT 12.7 SECONDS (9.5-11.5) H 07/01/16 06:57 INR 1.26 (0.5-1.4) 07/01/16 06:57 PTT (Actin FS) 28.3 SECONDS (26.0-38.0) 06/28/16 04:38 Specimen Source art 06/22/16 20:03 Sample Site Right Radial 06/22/16 20:03 pH 7.49 (7.35-7.45) H 06/22/16 20:03 pCO2 34.0 mmHg (35.0-45.0) L 06/22/16 20:03 pO2 97.0 mmHg (80.0-100.0) 06/22/16 20:03 HCO3 25.9 mmol/L (20.0-26.0) 06/22/16 20:03 Base Excess 2.8 mmol/L (-3.0-3.0) 06/22/16 20:03 O2 Saturation 98.0 % (92.0-100.0) 06/22/16 20:03 Estuardo Test P 06/22/16 20:03 Vent Rate NA 06/22/16 20:03 Inspired O2 21 06/22/16 20:03 Tidal Volume NA 06/22/16 20:03 PEEP NA 06/22/16 20:03 Pressure (ins/psv/peep) NA 06/22/16 20:03 Critical Value RPINEIRA 06/22/16 20:03 Sodium 130 mEq/L (136-145) L 07/24/16 05:00 Potassium 4.1 mEq/L (3.5-5.1) 07/24/16 05:00 Chloride 95 mEq/L (98-107) L 07/24/16 05:00 Carbon Dioxide 25.7 mEq/L (21.0-31.0) 07/24/16 05:00 Anion Gap 13.4 (7.0-16.0) 07/24/16 05:00 BUN 63 mg/dL (7-25) H 07/24/16 05:00 Creatinine 4.7 mg/dL (0.7-1.3) H* 07/24/16 05:00 Est GFR ( Amer) 17.1 ml/min (>90) 07/24/16 05:00 Est GFR (Non-Af Amer) 14.2 ml/min 07/24/16 05:00 BUN/Creatinine Ratio 13.4 07/24/16 05:00 Glucose 120 mg/dL (70-105) H 07/24/16 05:00 Calcium 9.3 mg/dL (8.6-10.3) 07/24/16 05:00 Phosphorus 5.5 mg/dL (2.5-5.0) H 07/19/16 09:50 Magnesium 2.0 mg/dL (1.9-2.7) 07/07/16 06:00 Iron 42 ug/dL (38-169) 06/28/16 04:38 TIBC 269 ug/dL (250-450) 06/28/16 04:38 Iron Saturation 16 % (15-55) 06/28/16 04:38 Unsaturated IBC 227 ug/dL (111-343) 06/28/16 04:38 Ferritin 150 ng/mL (30-400) 06/26/16 08:30 Total Bilirubin 0.9 mg/dL (0.3-1.0) 07/14/16 06:45 Direct Bilirubin 0.70 mg/dL (0.0-0.2) H 06/28/16 04:38 GGTP 14 IU/L (0-65) 06/28/16 04:38 AST 27 U/L (13-39) 07/14/16 06:45 ALT 8 U/L (7-52) 07/14/16 06:45 Alkaline Phosphatase 42 U/L (34-104) 07/14/16 06:45 Ammonia 105 umol/L (16-53) H 07/02/16 06:40 Troponin I < 0.01 ng/mL (0.01-0.05) L 06/22/16 19:33 B-Natriuretic Peptide 668.0 pg/mL (5.0-100.0) H 06/22/16 19:33 Total Protein 7.7 gm/dL (6.0-8.3) 07/14/16 06:45 Albumin 2.8 gm/dL (4.2-5.5) L 07/14/16 06:45 Globulin 4.9 gm/dL 07/14/16 06:45 Albumin/Globulin Ratio 0.6 (1.0-1.8) L 07/14/16 06:45 Amylase 28 U/L (29-103) L 07/02/16 06:40 Lipase 31 U/L (11-82) 07/02/16 06:40 Urine Source CLEAN C 06/29/16 05:55 Urine Color YELLOW 06/29/16 05:55 Urine Clarity HAZY (CLEAR) 06/29/16 05:55 Urine pH 5.5 06/29/16 05:55 Ur Specific [place] 1.015 (1.005-1.030) 06/29/16 05:55 Urine Protein 30 mg/dL (NEGATIVE) H 06/29/16 05:55 Urine Glucose (UA) NEGATIVE mg/dL (NEGATIVE) 06/29/16 05:55 Urine Ketones NEGATIVE mg/dL (NEGATIVE) 06/29/16 05:55 Urine Blood NEGATIVE (NEGATIVE) 06/29/16 05:55 Urine Nitrate NEGATIVE (NEGATIVE) 06/29/16 05:55 Urine Bilirubin NEGATIVE (NEGATIVE) 06/29/16 05:55 Urine Urobilinogen 0.2 E.U./dL (0.2 - 1.0) 06/29/16 05:55 Ur Leukocyte Esterase TRACE (NEGATIVE) H 06/29/16 05:55 Urine RBC 0-2 /hpf (0-5) H 06/29/16 05:55 Urine WBC 6-10 /hpf (0-5) H 06/29/16 05:55 Ur Epithelial Cells FEW /lpf (FEW) 06/29/16 05:55 Urine Bacteria MANY /hpf (NONE SEEN) 06/29/16 05:55 Stool Occult Blood POSITIVE (NEGATIVE) 06/24/16 16:00 Random Vancomycin 13.4 ug/mL (5.0-40.0) 06/28/16 04:38 RPR NONREACTIVE (NONREACTIVE) 06/22/16 19:33 Hepatitis A IgM Ab Negative (Negative) 06/29/16 05:49 Hep Bs Antigen Negative (Negative) 06/29/16 05:49 Hep B Core IgM Ab Negative (Negative) 06/29/16 05:49 Hepatitis C Antibody >11.0 s/co ratio (0.0-0.9) H 06/29/16 05:49 Blood Type A POSITIVE 07/21/16 12:31 Antibody Screen NEGATIVE 07/21/16 12:31 Crossmatch See Detail 07/21/16 12:31 - Physical Exam Vitals and I&O: Vital Signs Temp 97.5 F 07/24/16 08:00 Pulse 94 07/24/16 08:00 Resp 20 07/24/16 08:00 BP 114/70 07/24/16 08:00 Pulse Ox 99 07/24/16 08:00 Intake & Output 07/23/16 07/24/16 07/24/16 18:59 06:59 18:59 Intake Total 100 Output Total 100 Balance 0 Intake: Oral 100 Output: Urine 100 Other: # Voids 2 Stool Characteristics Formed Formed Active Medications: Current Medications Albuterol/Ipratropium (Duoneb Neb) 3 ml HHN Q2HR PRN PRN Reason: Shortness of Breath or Wheeze Stop: 09/08/16 09:51 Aspirin (Ecotrin) 325 mg PO DAILY [facility] Stop: 09/03/16 09:14 Last Admin: 07/24/16 08:39 Dose: 325 mg Calamine/Phenol (Calmoseptine) 1 appl TP QID PRN PRN Reason: Skin Irritation Stop: 09/08/16 18:33 Last Admin: 07/20/16 09:09 Dose: 1 appl Calamine/Phenol (Calmoseptine) 1 appl TP QID [facility] Stop: 09/08/16 20:59 Last Admin: 07/24/16 14:12 Dose: Not Given Cholecalciferol (Vitamin D3) 2,000 iu PO DAILY [facility] Stop: 08/23/16 08:59 Last Admin: 07/24/16 08:39 Dose: 2,000 iu Diphenhydramine HCl (Benadryl 50 Mg/Ml) 50 mg IM Q8HR PRN PRN Reason: Agitation Stop: 08/25/16 12:10 Docusate Sodium (Colace) 100 mg PO Q12HR [facility] Stop: 09/16/16 08:59 Last Admin: 07/24/16 08:39 Dose: 100 mg Epoetin Bernardino (Epogen) 10,000 units SUBQ TuThSa [facility] Stop: 09/19/16 13:44 Last Admin: 07/21/16 17:19 Dose: 10,000 units Haloperidol Lactate (Haldol) 5 mg IM Q8HR PRN PRN Reason: Agitation Stop: 08/25/16 12:10 Lactic Acid (Lac-Hydrin Cream) 1 appl TP BID [facility] Stop: 09/12/16 08:59 Last Admin: 07/24/16 08:39 Dose: 1 appl Lactulose (Cephulac) 20 gm PO Q8HR [facility] Stop: 09/16/16 04:59 Last Admin: 07/24/16 14:12 Dose: Not Given Levothyroxine Sodium (Synthroid) 0.05 mg PO QDAC [facility] Stop: 08/23/16 07:29 Last Admin: 07/24/16 08:39 Dose: 0.05 mg Miscellaneous (Clinical Monitoring) 1 ea MC PRN PRN PRN Reason: RENAL DOSING Stop: 08/31/16 16:27 Morphine Sulfate (Morphine) 1 mg IVP Q4HR PRN PRN Reason: Pain (Moderate) Stop: 09/16/16 00:08 Last Admin: 07/23/16 22:03 Dose: 1 mg Morphine Sulfate (Morphine) 3 mg IV Q4HR PRN PRN Reason: Pain (Severe) Stop: 09/16/16 00:34 Pantoprazole Sodium (Protonix) 40 mg PO DAILY [facility] Stop: 08/23/16 08:59 Last Admin: 07/24/16 08:39 Dose: 40 mg Quetiapine Fumarate (Seroquel) 100 mg PO TID [facility] PRN Reason: Protocol Stop: 08/26/16 08:59 Last Admin: 07/24/16 14:13 Dose: Not Given Vitamin B Complex/Vit C/Folic Acid (Vitamin B Complex W/Vitamin C) 1 tab PO DAILY [facility] Stop: 08/23/16 08:59 Last Admin: 07/24/16 08:39 Dose: 1 tab General: No acute distress HEENT: Atraumatic, Mucous membr. moist/pink Neck: Supple, +2 carotid pulse wo bruit Cardiovascular: Regular rate, Normal S1, Normal S2 Lungs: Other (few rhonchi) Abdomen: Bowel sounds, Soft Extremities: Edema ((+) 3 bipedal edema) Neurological: Sensation intact Skin: no Rash - Procedures Procedures: Procedures Procedure Code Date ARTERY-VEIN NONAUTOGRAFT 19768 06/22/16 BLOOD TRANSFUSION SERVICE 55809 06/22/16 BYPASS L BRACH ART TO UP ARM VEIN W NONAUT SUB, OPEN [id number] 06/22/16 FLUOROSCOPY OF SUP VENA CAVA USING [facility] CONTRAST, GUIDANCE [id number] 06/22/16 INSERTION OF INFUSION DEV INTO SUP VENA CAVA, PERC APPROACH [id number] 06/22/16 PLACE CATHETER IN VEIN 75973 06/22/16 TRANSFUSE NONAUT RED BLOOD CELLS IN PERIPH VEIN, PERC [id number] 06/22/16 Assessment/Plan - Problem List Patient Problems: All Active Problems MEDICAL EVALUATION PER DR FRY (Acute) - Assessment Assessment: esrd on hd persistent cellulitis b/l lower ext acute on chronic anemia possible gi bleed ohs chronic a. fib hypothyroid anasarca functional quadriplegia chronic venous stasis dermatitis acute decomp psychosis hypokalemia, hypomagnesemia s/p left avg - Plan Plan: hgb/hct slightly improved to 8.2/24.8 Lab - Result Diagrams 07/19/16 09:50 Lab - Result Diagrams 07/22/16 05:21 Lab - Result Diagrams 07/24/16 05:00 07/24/16 05:00 07/20/16 05:50 07/19/16 09:50 latest hgb/hct were 7.2/21.5 for transfusion 1 U PRBC placement in progress continue psych meds HD in am due to hypotension Lab - Result Diagrams 07/19/16 09:50 07/20/16 05:50 Lab - Result Diagrams 07/21/16 06:16 07/20/16 05:50
[2016-07-24] MEDS: Morphine Sulfate 2 mg/mL 1mL Syr IVP PRN (20:26)
[2016-07-25] MEDS: Lactulose 10 Gm/15 mL 30mL UDC PO SCH ×3 (01:36→20:56)
[2016-07-25] MEDS: Aspirin 325 mg EC PO SCH (09:35)
[2016-07-25] MEDS: Menthol/Zinc Oxide Oint 113gm Tube TP SCH ×4 (09:36→21:00)
[2016-07-25] MEDS: Ammonium Lactate Cream 140 gm Tube TP SCH ×2 (09:36→17:00)
--- NOTE | 2016-07-25 11:53 | General Progress Note ---
Subjective - Review of Systems Subjective: pt refusing everything spoke to dr forrest yesterday renal notes noted Objective - Results Result Diagrams: 07/24/16 05:00 07/24/16 05:00 Recent Labs: Laboratory Last Values WBC 3.6 Th/cmm (4.8-10.8) L D 07/24/16 05:00 RBC 2.51 Mil/cmm (4.30-5.70) L 07/24/16 05:00 Hgb 7.2 gm/dL (13.2-17.3) L* 07/24/16 05:00 Hct 21.5 % (39.0-49.0) L* 07/24/16 05:00 MCV 86.0 fl (80-99) 07/24/16 05:00 MCH 28.6 pg (26.0-30.0) 07/24/16 05:00 MCHC Differential 33.3 pg (28.0-36.0) 07/24/16 05:00 RDW 15.1 % (11.5-20.0) 07/24/16 05:00 Plt Count 123 Th/cmm (150-400) L 07/24/16 05:00 MPV 9.5 fl 07/24/16 05:00 Neutrophils % 56.8 % (40.0-80.0) 07/07/16 06:00 Band Neutrophils % 1 % (0-10) 07/24/16 05:00 Lymphocytes % 18.4 % (20.0-50.0) L 07/07/16 06:00 Monocytes % 13.8 % (2.0-10.0) H 07/07/16 06:00 Eosinophils % 11.0 % (0.0-5.0) H 07/07/16 06:00 Basophils % 0.0 % (0.0-2.0) 07/07/16 06:00 Neutrophils (Manual) 68 % (40-80) 07/24/16 05:00 Lymphocytes 13 % (20-50) L 07/24/16 05:00 Monocytes 9 % (2-10) 07/24/16 05:00 Eosinophils 8 % (0-5) H 07/24/16 05:00 Basophils 1 % (0-3) 07/24/16 05:00 Myelocytes 1 % 07/14/16 16:00 Hypochromia 1+ 07/20/16 23:30 Platelet Estimate DECREASED PLATELETS (NORMAL) 07/24/16 05:00 Platelet Morphology NORMAL (NORMAL) 07/24/16 05:00 Polychromasia 1+ 07/20/16 23:30 Anisocytosis 1+ 07/24/16 05:00 Microcytosis 1+ 07/14/16 16:00 RBC Morph Micro Appear ABNORMAL (NORMAL) 07/24/16 05:00 PT 12.7 SECONDS (9.5-11.5) H 07/01/16 06:57 INR 1.26 (0.5-1.4) 07/01/16 06:57 PTT (Actin FS) 28.3 SECONDS (26.0-38.0) 06/28/16 04:38 Specimen Source art 06/22/16 20:03 Sample Site Right Radial 06/22/16 20:03 pH 7.49 (7.35-7.45) H 06/22/16 20:03 pCO2 34.0 mmHg (35.0-45.0) L 06/22/16 20:03 pO2 97.0 mmHg (80.0-100.0) 06/22/16 20:03 HCO3 25.9 mmol/L (20.0-26.0) 06/22/16 20:03 Base Excess 2.8 mmol/L (-3.0-3.0) 06/22/16 20:03 O2 Saturation 98.0 % (92.0-100.0) 06/22/16 20:03 Estuardo Test P 06/22/16 20:03 Vent Rate NA 06/22/16 20:03 Inspired O2 21 06/22/16 20:03 Tidal Volume NA 06/22/16 20:03 PEEP NA 06/22/16 20:03 Pressure (ins/psv/peep) NA 06/22/16 20:03 Critical Value RPINEIRA 06/22/16 20:03 Sodium 130 mEq/L (136-145) L 07/24/16 05:00 Potassium 4.1 mEq/L (3.5-5.1) 07/24/16 05:00 Chloride 95 mEq/L (98-107) L 07/24/16 05:00 Carbon Dioxide 25.7 mEq/L (21.0-31.0) 07/24/16 05:00 Anion Gap 13.4 (7.0-16.0) 07/24/16 05:00 BUN 63 mg/dL (7-25) H 07/24/16 05:00 Creatinine 4.7 mg/dL (0.7-1.3) H* 07/24/16 05:00 Est GFR ( Amer) 17.1 ml/min (>90) 07/24/16 05:00 Est GFR (Non-Af Amer) 14.2 ml/min 07/24/16 05:00 BUN/Creatinine Ratio 13.4 07/24/16 05:00 Glucose 120 mg/dL (70-105) H 07/24/16 05:00 Calcium 9.3 mg/dL (8.6-10.3) 07/24/16 05:00 Phosphorus 5.5 mg/dL (2.5-5.0) H 07/19/16 09:50 Magnesium 2.0 mg/dL (1.9-2.7) 07/07/16 06:00 Iron 42 ug/dL (38-169) 06/28/16 04:38 TIBC 269 ug/dL (250-450) 06/28/16 04:38 Iron Saturation 16 % (15-55) 06/28/16 04:38 Unsaturated IBC 227 ug/dL (111-343) 06/28/16 04:38 Ferritin 150 ng/mL (30-400) 06/26/16 08:30 Total Bilirubin 0.9 mg/dL (0.3-1.0) 07/14/16 06:45 Direct Bilirubin 0.70 mg/dL (0.0-0.2) H 06/28/16 04:38 GGTP 14 IU/L (0-65) 06/28/16 04:38 AST 27 U/L (13-39) 07/14/16 06:45 ALT 8 U/L (7-52) 07/14/16 06:45 Alkaline Phosphatase 42 U/L (34-104) 07/14/16 06:45 Ammonia 105 umol/L (16-53) H 07/02/16 06:40 Troponin I < 0.01 ng/mL (0.01-0.05) L 06/22/16 19:33 B-Natriuretic Peptide 668.0 pg/mL (5.0-100.0) H 06/22/16 19:33 Total Protein 7.7 gm/dL (6.0-8.3) 07/14/16 06:45 Albumin 2.8 gm/dL (4.2-5.5) L 07/14/16 06:45 Globulin 4.9 gm/dL 07/14/16 06:45 Albumin/Globulin Ratio 0.6 (1.0-1.8) L 07/14/16 06:45 Amylase 28 U/L (29-103) L 07/02/16 06:40 Lipase 31 U/L (11-82) 07/02/16 06:40 Urine Source CLEAN C 06/29/16 05:55 Urine Color YELLOW 06/29/16 05:55 Urine Clarity HAZY (CLEAR) 06/29/16 05:55 Urine pH 5.5 06/29/16 05:55 Ur Specific [place] 1.015 (1.005-1.030) 06/29/16 05:55 Urine Protein 30 mg/dL (NEGATIVE) H 06/29/16 05:55 Urine Glucose (UA) NEGATIVE mg/dL (NEGATIVE) 06/29/16 05:55 Urine Ketones NEGATIVE mg/dL (NEGATIVE) 06/29/16 05:55 Urine Blood NEGATIVE (NEGATIVE) 06/29/16 05:55 Urine Nitrate NEGATIVE (NEGATIVE) 06/29/16 05:55 Urine Bilirubin NEGATIVE (NEGATIVE) 06/29/16 05:55 Urine Urobilinogen 0.2 E.U./dL (0.2 - 1.0) 06/29/16 05:55 Ur Leukocyte Esterase TRACE (NEGATIVE) H 06/29/16 05:55 Urine RBC 0-2 /hpf (0-5) H 06/29/16 05:55 Urine WBC 6-10 /hpf (0-5) H 06/29/16 05:55 Ur Epithelial Cells FEW /lpf (FEW) 06/29/16 05:55 Urine Bacteria MANY /hpf (NONE SEEN) 06/29/16 05:55 Stool Occult Blood POSITIVE (NEGATIVE) 06/24/16 16:00 Random Vancomycin 13.4 ug/mL (5.0-40.0) 06/28/16 04:38 RPR NONREACTIVE (NONREACTIVE) 06/22/16 19:33 Hepatitis A IgM Ab Negative (Negative) 06/29/16 05:49 Hep Bs Antigen Negative (Negative) 06/29/16 05:49 Hep B Core IgM Ab Negative (Negative) 06/29/16 05:49 Hepatitis C Antibody >11.0 s/co ratio (0.0-0.9) H 06/29/16 05:49 Blood Type A POSITIVE 07/25/16 00:45 Antibody Screen NEGATIVE 07/25/16 00:45 Crossmatch See Detail 07/25/16 00:45 - Physical Exam Vitals and I&O: Vital Signs Temp 97.8 F 07/25/16 04:00 Pulse 89 07/25/16 04:00 Resp 18 07/25/16 04:00 BP 109/69 07/25/16 04:00 Pulse Ox 97 07/25/16 04:00 Intake & Output 07/24/16 07/25/16 07/25/16 18:59 06:59 18:59 Intake Total 1080 200 Output Total 1000 1050 Balance 80 -850 Intake: Oral 1080 200 Output: Urine 50 Hemodialysis 1000 1000 Other: Stool Characteristics Formed Active Medications: Current Medications Albuterol/Ipratropium (Duoneb Neb) 3 ml HHN Q2HR PRN PRN Reason: Shortness of Breath or Wheeze Stop: 09/08/16 09:51 Aspirin (Ecotrin) 325 mg PO DAILY [facility] Stop: 09/03/16 09:14 Last Admin: 07/25/16 09:35 Dose: Not Given Calamine/Phenol (Calmoseptine) 1 appl TP QID PRN PRN Reason: Skin Irritation Stop: 09/08/16 18:33 Last Admin: 07/20/16 09:09 Dose: 1 appl Calamine/Phenol (Calmoseptine) 1 appl TP QID [facility] Stop: 09/08/16 20:59 Last Admin: 07/25/16 09:36 Dose: Not Given Diphenhydramine HCl (Benadryl 50 Mg/Ml) 50 mg IM Q8HR PRN PRN Reason: Agitation Stop: 08/25/16 12:10 Docusate Sodium (Colace) 100 mg PO Q12HR [facility] Stop: 09/16/16 08:59 Last Admin: 07/25/16 09:36 Dose: Not Given Epoetin Bernardino (Epogen) 10,000 units SUBQ TuThSa [facility] Stop: 09/19/16 13:44 Last Admin: 07/21/16 17:19 Dose: 10,000 units Haloperidol Lactate (Haldol) 5 mg IM Q8HR PRN PRN Reason: Agitation Stop: 08/25/16 12:10 Lactic Acid (Lac-Hydrin Cream) 1 appl TP BID [facility] Stop: 09/12/16 08:59 Last Admin: 07/25/16 09:36 Dose: Not Given Lactulose (Cephulac) 20 gm PO Q8HR [facility] Stop: 09/16/16 04:59 Last Admin: 07/25/16 01:36 Dose: Not Given Miscellaneous (Clinical Monitoring) 1 ea MC PRN PRN PRN Reason: RENAL DOSING Stop: 08/31/16 16:27 Morphine Sulfate (Morphine) 1 mg IVP Q4HR PRN PRN Reason: Pain (Moderate) Stop: 09/16/16 00:08 Last Admin: 07/24/16 20:26 Dose: 1 mg Morphine Sulfate (Morphine) 3 mg IV Q4HR PRN PRN Reason: Pain (Severe) Stop: 09/16/16 00:34 Quetiapine Fumarate (Seroquel) 100 mg PO TID [facility]QUISE PRN Reason: Protocol Stop: 08/26/16 08:59 Last Admin: 07/25/16 09:37 Dose: Not Given - Procedures Procedures: Procedures Procedure Code Date ARTERY-VEIN NONAUTOGRAFT 37463 06/22/16 BLOOD TRANSFUSION SERVICE 31884 06/22/16 BYPASS L BRACH ART TO UP ARM VEIN W NONAUT SUB, OPEN [id number] 06/22/16 FLUOROSCOPY OF SUP VENA CAVA USING [facility] CONTRAST, GUIDANCE [id number] 06/22/16 INSERTION OF INFUSION DEV INTO SUP VENA CAVA, PERC APPROACH [id number] 06/22/[address] PL[address] CATHETER IN VEIN [address]342 06/22/16 TRANSFUSE NONAUT RED BLOOD CELLS IN PERIPH VEIN, PERC [id number] 06/22/16 Assessment/Plan - Problem List Patient Problems: All Active Problems MEDICAL EVALUATION PER DR FRY (Acute) - Assessment Assessment: 1. Cellulitis of legs. 2. Lymphedema of legs. 3. CKD 5 on HD. 4. Morbid obesity. 5 anemia 6 gi bleed 7 psychosis - Plan Plan: ivabx follow up labs id consult
[2016-07-25] MEDS ORDERED: Morphine Sulfate 2 mg/mL 1mL Syr IV PRN (12:55)
[2016-07-25] MEDS: Morphine Sulfate 2 mg/mL 1mL Syr IV PRN ×2 (12:59→20:56)
[2016-07-25] MEDS ORDERED: Morphine Sulfate 2 mg/mL 1mL Syr IVP PRN (13:04)
--- NOTE | 2016-07-25 13:38 | General Progress Note ---
Subjective - Review of Systems Service Date: 07/25/16 Subjective: still w/ periods of uncooperative Objective - Results Result Diagrams: 07/24/16 05:00 07/24/16 05:00 Recent Labs: Laboratory Last Values WBC 3.6 Th/cmm (4.8-10.8) L D 07/24/16 05:00 RBC 2.51 Mil/cmm (4.30-5.70) L 07/24/16 05:00 Hgb 7.2 gm/dL (13.2-17.3) L* 07/24/16 05:00 Hct 21.5 % (39.0-49.0) L* 07/24/16 05:00 MCV 86.0 fl (80-99) 07/24/16 05:00 MCH 28.6 pg (26.0-30.0) 07/24/16 05:00 MCHC Differential 33.3 pg (28.0-36.0) 07/24/16 05:00 RDW 15.1 % (11.5-20.0) 07/24/16 05:00 Plt Count 123 Th/cmm (150-400) L 07/24/16 05:00 MPV 9.5 fl 07/24/16 05:00 Neutrophils % 56.8 % (40.0-80.0) 07/07/16 06:00 Band Neutrophils % 1 % (0-10) 07/24/16 05:00 Lymphocytes % 18.4 % (20.0-50.0) L 07/07/16 06:00 Monocytes % 13.8 % (2.0-10.0) H 07/07/16 06:00 Eosinophils % 11.0 % (0.0-5.0) H 07/07/16 06:00 Basophils % 0.0 % (0.0-2.0) 07/07/16 06:00 Neutrophils (Manual) 68 % (40-80) 07/24/16 05:00 Lymphocytes 13 % (20-50) L 07/24/16 05:00 Monocytes 9 % (2-10) 07/24/16 05:00 Eosinophils 8 % (0-5) H 07/24/16 05:00 Basophils 1 % (0-3) 07/24/16 05:00 Myelocytes 1 % 07/14/16 16:00 Hypochromia 1+ 07/20/16 23:30 Platelet Estimate DECREASED PLATELETS (NORMAL) 07/24/16 05:00 Platelet Morphology NORMAL (NORMAL) 07/24/16 05:00 Polychromasia 1+ 07/20/16 23:30 Anisocytosis 1+ 07/24/16 05:00 Microcytosis 1+ 07/14/16 16:00 RBC Morph Micro Appear ABNORMAL (NORMAL) 07/24/16 05:00 PT 12.7 SECONDS (9.5-11.5) H 07/01/16 06:57 INR 1.26 (0.5-1.4) 07/01/16 06:57 PTT (Actin FS) 28.3 SECONDS (26.0-38.0) 06/28/16 04:38 Specimen Source art 06/22/16 20:03 Sample Site Right Radial 06/22/16 20:03 pH 7.49 (7.35-7.45) H 06/22/16 20:03 pCO2 34.0 mmHg (35.0-45.0) L 06/22/16 20:03 pO2 97.0 mmHg (80.0-100.0) 06/22/16 20:03 HCO3 25.9 mmol/L (20.0-26.0) 06/22/16 20:03 Base Excess 2.8 mmol/L (-3.0-3.0) 06/22/16 20:03 O2 Saturation 98.0 % (92.0-100.0) 06/22/16 20:03 Estuardo Test P 06/22/16 20:03 Vent Rate NA 06/22/16 20:03 Inspired O2 21 06/22/16 20:03 Tidal Volume NA 06/22/16 20:03 PEEP NA 06/22/16 20:03 Pressure (ins/psv/peep) NA 06/22/16 20:03 Critical Value RPINEIRA 06/22/16 20:03 Sodium 130 mEq/L (136-145) L 07/24/16 05:00 Potassium 4.1 mEq/L (3.5-5.1) 07/24/16 05:00 Chloride 95 mEq/L (98-107) L 07/24/16 05:00 Carbon Dioxide 25.7 mEq/L (21.0-31.0) 07/24/16 05:00 Anion Gap 13.4 (7.0-16.0) 07/24/16 05:00 BUN 63 mg/dL (7-25) H 07/24/16 05:00 Creatinine 4.7 mg/dL (0.7-1.3) H* 07/24/16 05:00 Est GFR ( Amer) 17.1 ml/min (>90) 07/24/16 05:00 Est GFR (Non-Af Amer) 14.2 ml/min 07/24/16 05:00 BUN/Creatinine Ratio 13.4 07/24/16 05:00 Glucose 120 mg/dL (70-105) H 07/24/16 05:00 Calcium 9.3 mg/dL (8.6-10.3) 07/24/16 05:00 Phosphorus 5.5 mg/dL (2.5-5.0) H 07/19/16 09:50 Magnesium 2.0 mg/dL (1.9-2.7) 07/07/16 06:00 Iron 42 ug/dL (38-169) 06/28/16 04:38 TIBC 269 ug/dL (250-450) 06/28/16 04:38 Iron Saturation 16 % (15-55) 06/28/16 04:38 Unsaturated IBC 227 ug/dL (111-343) 06/28/16 04:38 Ferritin 150 ng/mL (30-400) 06/26/16 08:30 Total Bilirubin 0.9 mg/dL (0.3-1.0) 07/14/16 06:45 Direct Bilirubin 0.70 mg/dL (0.0-0.2) H 06/28/16 04:38 GGTP 14 IU/L (0-65) 06/28/16 04:38 AST 27 U/L (13-39) 07/14/16 06:45 ALT 8 U/L (7-52) 07/14/16 06:45 Alkaline Phosphatase 42 U/L (34-104) 07/14/16 06:45 Ammonia 105 umol/L (16-53) H 07/02/16 06:40 Troponin I < 0.01 ng/mL (0.01-0.05) L 06/22/16 19:33 B-Natriuretic Peptide 668.0 pg/mL (5.0-100.0) H 06/22/16 19:33 Total Protein 7.7 gm/dL (6.0-8.3) 07/14/16 06:45 Albumin 2.8 gm/dL (4.2-5.5) L 07/14/16 06:45 Globulin 4.9 gm/dL 07/14/16 06:45 Albumin/Globulin Ratio 0.6 (1.0-1.8) L 07/14/16 06:45 Amylase 28 U/L (29-103) L 07/02/16 06:40 Lipase 31 U/L (11-82) 07/02/16 06:40 Urine Source CLEAN C 06/29/16 05:55 Urine Color YELLOW 06/29/16 05:55 Urine Clarity HAZY (CLEAR) 06/29/16 05:55 Urine pH 5.5 06/29/16 05:55 Ur Specific [place] 1.015 (1.005-1.030) 06/29/16 05:55 Urine Protein 30 mg/dL (NEGATIVE) H 06/29/16 05:55 Urine Glucose (UA) NEGATIVE mg/dL (NEGATIVE) 06/29/16 05:55 Urine Ketones NEGATIVE mg/dL (NEGATIVE) 06/29/16 05:55 Urine Blood NEGATIVE (NEGATIVE) 06/29/16 05:55 Urine Nitrate NEGATIVE (NEGATIVE) 06/29/16 05:55 Urine Bilirubin NEGATIVE (NEGATIVE) 06/29/16 05:55 Urine Urobilinogen 0.2 E.U./dL (0.2 - 1.0) 06/29/16 05:55 Ur Leukocyte Esterase TRACE (NEGATIVE) H 06/29/16 05:55 Urine RBC 0-2 /hpf (0-5) H 06/29/16 05:55 Urine WBC 6-10 /hpf (0-5) H 06/29/16 05:55 Ur Epithelial Cells FEW /lpf (FEW) 06/29/16 05:55 Urine Bacteria MANY /hpf (NONE SEEN) 06/29/16 05:55 Stool Occult Blood POSITIVE (NEGATIVE) 06/24/16 16:00 Random Vancomycin 13.4 ug/mL (5.0-40.0) 06/28/16 04:38 RPR NONREACTIVE (NONREACTIVE) 06/22/16 19:33 Hepatitis A IgM Ab Negative (Negative) 06/29/16 05:49 Hep Bs Antigen Negative (Negative) 06/29/16 05:49 Hep B Core IgM Ab Negative (Negative) 06/29/16 05:49 Hepatitis C Antibody >11.0 s/co ratio (0.0-0.9) H 06/29/16 05:49 Blood Type A POSITIVE 07/25/16 00:45 Antibody Screen NEGATIVE 07/25/16 00:45 Crossmatch See Detail 07/25/16 00:45 - Physical Exam Vitals and I&O: Vital Signs Temp 99.2 F 07/25/16 12:00 Pulse 100 07/25/16 12:00 Resp 20 07/25/16 12:00 BP 111/55 07/25/16 12:00 Pulse Ox 97 07/25/16 12:00 Intake & Output 07/24/16 07/25/16 07/25/16 18:59 06:59 18:59 Intake Total 1080 200 Output Total 1000 1050 Balance 80 -850 Intake: Oral 1080 200 Output: Urine 50 Hemodialysis 1000 1000 Other: Stool Characteristics Formed Active Medications: Current Medications Albuterol/Ipratropium (Duoneb Neb) 3 ml HHN Q2HR PRN PRN Reason: Shortness of Breath or Wheeze Stop: 09/08/16 09:51 Aspirin (Ecotrin) 325 mg PO DAILY [facility] Stop: 09/03/16 09:14 Last Admin: 07/25/16 09:35 Dose: Not Given Calamine/Phenol (Calmoseptine) 1 appl TP QID PRN PRN Reason: Skin Irritation Stop: 09/08/16 18:33 Last Admin: 07/20/16 09:09 Dose: 1 appl Calamine/Phenol (Calmoseptine) 1 appl TP QID [facility] Stop: 09/08/16 20:59 Last Admin: 07/25/16 13:04 Dose: 1 appl Diphenhydramine HCl (Benadryl 50 Mg/Ml) 50 mg IM Q8HR PRN PRN Reason: Agitation Stop: 08/25/16 12:10 Docusate Sodium (Colace) 100 mg PO Q12HR [facility] Stop: 09/16/16 08:59 Last Admin: 07/25/16 09:36 Dose: Not Given Epoetin Bernardino (Epogen) 10,000 units SUBQ TuThSa [facility] Stop: 09/19/16 13:44 Last Admin: 07/21/16 17:19 Dose: 10,000 units Haloperidol Lactate (Haldol) 5 mg IM Q8HR PRN PRN Reason: Agitation Stop: 08/25/16 12:10 Lactic Acid (Lac-Hydrin Cream) 1 appl TP BID [facility] Stop: 09/12/16 08:59 Last Admin: 07/25/16 09:36 Dose: Not Given Lactulose (Cephulac) 20 gm PO Q8HR [facility] Stop: 09/16/16 04:59 Last Admin: 07/25/16 13:01 Dose: Not Given Miscellaneous (Clinical Monitoring) 1 ea MC PRN PRN PRN Reason: RENAL DOSING Stop: 08/31/16 16:27 Morphine Sulfate (Morphine) 2 mg IV Q4H PRN PRN Reason: SEVERE PAIN Stop: 09/23/16 12:59 Last Admin: 07/25/16 12:59 Dose: 2 mg Morphine Sulfate (Morphine) 1 mg IVP Q4H PRN PRN Reason: MODERATE PAIN Stop: 09/23/16 13:03 Quetiapine Fumarate (Seroquel) 100 mg PO TID [facility] PRN Reason: Protocol Stop: 08/26/16 08:59 Last Admin: 07/25/16 13:00 Dose: Not Given General: Alert, No acute distress HEENT: Atraumatic, Mucous membr. moist/pink Neck: Supple, +2 carotid pulse wo bruit Cardiovascular: Regular rate, Normal S1, Normal S2 Lungs: Other (few rhonchi) Abdomen: Bowel sounds, Soft Extremities: Edema, Other ((+) 3 bipedal edema) Neurological: Sensation intact Skin: no Rash - Procedures Procedures: Procedures Procedure Code Date ARTERY-VEIN NONAUTOGRAFT 96452 06/22/16 BLOOD TRANSFUSION SERVICE 78104 06/22/16 BYPASS L BRACH ART TO UP ARM VEIN W NONAUT SUB, OPEN [id number] 06/22/16 FLUOROSCOPY OF SUP VENA CAVA USING [facility] CONTRAST, GUIDANCE [id number] 06/22/16 INSERTION OF INFUSION DEV INTO SUP VENA CAVA, PERC APPROACH [id number] 06/22/16 PLACE CATHETER IN VEIN 31495 06/22/16 TRANSFUSE NONAUT RED BLOOD CELLS IN PERIPH VEIN, PERC [id number] 06/22/16 Assessment/Plan - Problem List Patient Problems: All Active Problems MEDICAL EVALUATION PER DR FRY (Acute) - Assessment Assessment: esrd on hd persistent cellulitis b/l lower ext acute on chronic anemia possible gi bleed ohs chronic a. fib hypothyroid anasarca functional quadriplegia chronic venous stasis dermatitis acute decomp psychosis hypokalemia, hypomagnesemia s/p left avg - Plan Plan: hgb/hct slightly improved to 8.2/24.8 Lab - Result Diagrams 07/19/16 09:50 Lab - Result Diagrams 07/22/16 05:21 Lab - Result Diagrams 07/24/16 05:00 07/24/16 05:00 07/20/16 05:50 07/19/16 09:50 latest hgb/hct were 7.2/21.5 for transfusion 1 U PRBC placement in progress continue psych meds HD today due to hypotension yesterday Lab - Result Diagrams 07/19/16 09:50 07/20/16 05:50 Lab - Result Diagrams 07/21/16 06:16 07/20/16 05:50
[2016-07-26] MEDS: Lactulose 10 Gm/15 mL 30mL UDC PO SCH ×3 (06:33→21:16)
--- NOTE | 2016-07-26 08:57 | General Progress Note ---
Subjective - Review of Systems Service Date: 07/26/16 Subjective: renal notes noted Objective - Results Result Diagrams: 07/26/16 11:05 07/24/16 05:00 Recent Labs: Laboratory Last Values WBC 3.6 Th/cmm (4.8-10.8) L D 07/24/16 05:00 RBC 2.51 Mil/cmm (4.30-5.70) L 07/24/16 05:00 Hgb 7.2 gm/dL (13.2-17.3) L* 07/24/16 05:00 Hct 21.5 % (39.0-49.0) L* 07/24/16 05:00 MCV 86.0 fl (80-99) 07/24/16 05:00 MCH 28.6 pg (26.0-30.0) 07/24/16 05:00 MCHC Differential 33.3 pg (28.0-36.0) 07/24/16 05:00 RDW 15.1 % (11.5-20.0) 07/24/16 05:00 Plt Count 123 Th/cmm (150-400) L 07/24/16 05:00 MPV 9.5 fl 07/24/16 05:00 Neutrophils % 56.8 % (40.0-80.0) 07/07/16 06:00 Band Neutrophils % 1 % (0-10) 07/24/16 05:00 Lymphocytes % 18.4 % (20.0-50.0) L 07/07/16 06:00 Monocytes % 13.8 % (2.0-10.0) H 07/07/16 06:00 Eosinophils % 11.0 % (0.0-5.0) H 07/07/16 06:00 Basophils % 0.0 % (0.0-2.0) 07/07/16 06:00 Neutrophils (Manual) 68 % (40-80) 07/24/16 05:00 Lymphocytes 13 % (20-50) L 07/24/16 05:00 Monocytes 9 % (2-10) 07/24/16 05:00 Eosinophils 8 % (0-5) H 07/24/16 05:00 Basophils 1 % (0-3) 07/24/16 05:00 Myelocytes 1 % 07/14/16 16:00 Hypochromia 1+ 07/20/16 23:30 Platelet Estimate DECREASED PLATELETS (NORMAL) 07/24/16 05:00 Platelet Morphology NORMAL (NORMAL) 07/24/16 05:00 Polychromasia 1+ 07/20/16 23:30 Anisocytosis 1+ 07/24/16 05:00 Microcytosis 1+ 07/14/16 16:00 RBC Morph Micro Appear ABNORMAL (NORMAL) 07/24/16 05:00 PT 12.7 SECONDS (9.5-11.5) H 07/01/16 06:57 INR 1.26 (0.5-1.4) 07/01/16 06:57 PTT (Actin FS) 28.3 SECONDS (26.0-38.0) 06/28/16 04:38 Specimen Source art 06/22/16 20:03 Sample Site Right Radial 06/22/16 20:03 pH 7.49 (7.35-7.45) H 06/22/16 20:03 pCO2 34.0 mmHg (35.0-45.0) L 06/22/16 20:03 pO2 97.0 mmHg (80.0-100.0) 06/22/16 20:03 HCO3 25.9 mmol/L (20.0-26.0) 06/22/16 20:03 Base Excess 2.8 mmol/L (-3.0-3.0) 06/22/16 20:03 O2 Saturation 98.0 % (92.0-100.0) 06/22/16 20:03 Estuardo Test P 06/22/16 20:03 Vent Rate NA 06/22/16 20:03 Inspired O2 21 06/22/16 20:03 Tidal Volume NA 06/22/16 20:03 PEEP NA 06/22/16 20:03 Pressure (ins/psv/peep) NA 06/22/16 20:03 Critical Value RPINEIRA 06/22/16 20:03 Sodium 130 mEq/L (136-145) L 07/24/16 05:00 Potassium 4.1 mEq/L (3.5-5.1) 07/24/16 05:00 Chloride 95 mEq/L (98-107) L 07/24/16 05:00 Carbon Dioxide 25.7 mEq/L (21.0-31.0) 07/24/16 05:00 Anion Gap 13.4 (7.0-16.0) 07/24/16 05:00 BUN 63 mg/dL (7-25) H 07/24/16 05:00 Creatinine 4.7 mg/dL (0.7-1.3) H* 07/24/16 05:00 Est GFR ( Amer) 17.1 ml/min (>90) 07/24/16 05:00 Est GFR (Non-Af Amer) 14.2 ml/min 07/24/16 05:00 BUN/Creatinine Ratio 13.4 07/24/16 05:00 Glucose 120 mg/dL (70-105) H 07/24/16 05:00 Calcium 9.3 mg/dL (8.6-10.3) 07/24/16 05:00 Phosphorus 5.5 mg/dL (2.5-5.0) H 07/19/16 09:50 Magnesium 2.0 mg/dL (1.9-2.7) 07/07/16 06:00 Iron 42 ug/dL (38-169) 06/28/16 04:38 TIBC 269 ug/dL (250-450) 06/28/16 04:38 Iron Saturation 16 % (15-55) 06/28/16 04:38 Unsaturated IBC 227 ug/dL (111-343) 06/28/16 04:38 Ferritin 150 ng/mL (30-400) 06/26/16 08:30 Total Bilirubin 0.9 mg/dL (0.3-1.0) 07/14/16 06:45 Direct Bilirubin 0.70 mg/dL (0.0-0.2) H 06/28/16 04:38 GGTP 14 IU/L (0-65) 06/28/16 04:38 AST 27 U/L (13-39) 07/14/16 06:45 ALT 8 U/L (7-52) 07/14/16 06:45 Alkaline Phosphatase 42 U/L (34-104) 07/14/16 06:45 Ammonia 105 umol/L (16-53) H 07/02/16 06:40 Troponin I < 0.01 ng/mL (0.01-0.05) L 06/22/16 19:33 B-Natriuretic Peptide 668.0 pg/mL (5.0-100.0) H 06/22/16 19:33 Total Protein 7.7 gm/dL (6.0-8.3) 07/14/16 06:45 Albumin 2.8 gm/dL (4.2-5.5) L 07/14/16 06:45 Globulin 4.9 gm/dL 07/14/16 06:45 Albumin/Globulin Ratio 0.6 (1.0-1.8) L 07/14/16 06:45 Amylase 28 U/L (29-103) L 07/02/16 06:40 Lipase 31 U/L (11-82) 07/02/16 06:40 Urine Source CLEAN C 06/29/16 05:55 Urine Color YELLOW 06/29/16 05:55 Urine Clarity HAZY (CLEAR) 06/29/16 05:55 Urine pH 5.5 06/29/16 05:55 Ur Specific [place] 1.015 (1.005-1.030) 06/29/16 05:55 Urine Protein 30 mg/dL (NEGATIVE) H 06/29/16 05:55 Urine Glucose (UA) NEGATIVE mg/dL (NEGATIVE) 06/29/16 05:55 Urine Ketones NEGATIVE mg/dL (NEGATIVE) 06/29/16 05:55 Urine Blood NEGATIVE (NEGATIVE) 06/29/16 05:55 Urine Nitrate NEGATIVE (NEGATIVE) 06/29/16 05:55 Urine Bilirubin NEGATIVE (NEGATIVE) 06/29/16 05:55 Urine Urobilinogen 0.2 E.U./dL (0.2 - 1.0) 06/29/16 05:55 Ur Leukocyte Esterase TRACE (NEGATIVE) H 06/29/16 05:55 Urine RBC 0-2 /hpf (0-5) H 06/29/16 05:55 Urine WBC 6-10 /hpf (0-5) H 06/29/16 05:55 Ur Epithelial Cells FEW /lpf (FEW) 06/29/16 05:55 Urine Bacteria MANY /hpf (NONE SEEN) 06/29/16 05:55 Stool Occult Blood POSITIVE (NEGATIVE) 06/24/16 16:00 Random Vancomycin 13.4 ug/mL (5.0-40.0) 06/28/16 04:38 RPR NONREACTIVE (NONREACTIVE) 06/22/16 19:33 Hepatitis A IgM Ab Negative (Negative) 06/29/16 05:49 Hep Bs Antigen Negative (Negative) 06/29/16 05:49 Hep B Core IgM Ab Negative (Negative) 06/29/16 05:49 Hepatitis C Antibody >11.0 s/co ratio (0.0-0.9) H 06/29/16 05:49 Blood Type A POSITIVE 07/25/16 00:45 Antibody Screen NEGATIVE 07/25/16 00:45 Crossmatch See Detail 07/25/16 00:45 - Physical Exam Vitals and I&O: Vital Signs Temp 97.6 F 07/26/16 04:00 Pulse 107 07/26/16 04:00 Resp 20 07/26/16 04:00 BP 115/70 07/26/16 04:00 Pulse Ox 97 07/26/16 04:00 Intake & Output 07/25/16 07/26/16 07/26/16 18:59 06:59 18:59 Intake Total 1500 Output Total 2500 Balance -1000 Intake: Oral 1500 Output: Hemodialysis 2500 Other: # Voids 2 # Bowel Movements 1 Stool Characteristics Formed Active Medications: Current Medications Albuterol/Ipratropium (Duoneb Neb) 3 ml HHN Q2HR PRN PRN Reason: Shortness of Breath or Wheeze Stop: 09/08/16 09:51 Aspirin (Ecotrin) 325 mg PO DAILY [facility] Stop: 09/03/16 09:14 Last Admin: 07/25/16 09:35 Dose: Not Given Calamine/Phenol (Calmoseptine) 1 appl TP QID PRN PRN Reason: Skin Irritation Stop: 09/08/16 18:33 Last Admin: 07/20/16 09:09 Dose: 1 appl Calamine/Phenol (Calmoseptine) 1 appl TP QID [facility] Stop: 09/08/16 20:59 Last Admin: 07/25/16 21:00 Dose: Not Given Diphenhydramine HCl (Benadryl 50 Mg/Ml) 50 mg IM Q8HR PRN PRN Reason: Agitation Stop: 08/25/16 12:10 Docusate Sodium (Colace) 100 mg PO Q12HR [facility] Stop: 09/16/16 08:59 Last Admin: 07/25/16 21:00 Dose: Not Given Epoetin Bernardino (Epogen) 10,000 units SUBQ TuThSa [facility] Stop: 09/19/16 13:44 Last Admin: 07/21/16 17:19 Dose: 10,000 units Haloperidol Lactate (Haldol) 5 mg IM Q8HR PRN PRN Reason: Agitation Stop: 08/25/16 12:10 Lactic Acid (Lac-Hydrin Cream) 1 appl TP BID [facility] Stop: 09/12/16 08:59 Last Admin: 07/25/16 17:00 Dose: Not Given Lactulose (Cephulac) 20 gm PO Q8HR [facility] Stop: 09/16/16 04:59 Last Admin: 07/26/16 06:33 Dose: Not Given Miscellaneous (Clinical Monitoring) 1 ea MC PRN PRN PRN Reason: RENAL DOSING Stop: 08/31/16 16:27 Morphine Sulfate (Morphine) 2 mg IV Q4H PRN PRN Reason: SEVERE PAIN Stop: 09/23/16 12:59 Last Admin: 07/25/16 20:56 Dose: 2 mg Morphine Sulfate (Morphine) 1 mg IVP Q4H PRN PRN Reason: MODERATE PAIN Stop: 09/23/16 13:03 Quetiapine Fumarate (Seroquel) 100 mg PO TID [facility] PRN Reason: Protocol Stop: 08/26/16 08:59 Last Admin: 07/25/16 22:09 Dose: Not Given General: No acute distress HEENT: Atraumatic Neck: Supple, JVD Cardiovascular: Regular rate Lungs: Clear to auscultation Abdomen: Bowel sounds Extremities: Clubbing - Procedures Procedures: Procedures Procedure Code Date ARTERY-VEIN NONAUTOGRAFT 42698 06/22/16 BLOOD TRANSFUSION SERVICE 04069 06/22/16 BYPASS L BRACH ART TO UP ARM VEIN W NONAUT SUB, OPEN [id number] 06/22/16 FLUOROSCOPY OF SUP VENA CAVA USING [facility] CONTRAST, GUIDANCE [id number] 06/22/16 INSERTION OF INFUSION DEV INTO SUP VENA CAVA, PERC APPROACH [id number] 06/22/[address] PL[address] CATHETER IN VEIN 00683 06/22/16 TRANSFUSE NONAUT RED BLOOD CELLS IN PERIPH VEIN, PERC [id number] 06/22/16 Assessment/Plan - Problem List Patient Problems: All Active Problems MEDICAL EVALUATION PER DR FRY (Acute) - Assessment Assessment: 1. Cellulitis of legs. 2. Lymphedema of legs. 3. CKD 5 on HD. 4. Morbid obesity. 5 anemia 6 gi bleed 7 psychosis - Plan Plan: ivabx follow up labs id consult awaiting placement
[2016-07-26] MEDS: Menthol/Zinc Oxide Oint 113gm Tube TP SCH ×4 (10:00→21:17)
[2016-07-26] MEDS: Ammonium Lactate Cream 140 gm Tube TP SCH ×2 (10:00→16:23)
[2016-07-26] MEDS: Aspirin 325 mg EC PO SCH (10:57)
[2016-07-26 11:19] LABS: MEAN CELL VOLUME 87.5 fl (80-99); MEAN CORPUSCULAR HEMOGLOBIN 29.3 pg (26.0-30.0); MEAN CORPUSCULAR HGB CONC 33.4 pg (28.0-36.0); MEAN PLATELET VOLUME 8.4 fl; PLATELET COUNT 139 Th/cmm (150-400); RED BLOOD COUNT 2.44 Mil/cmm (4.30-5.70); RED CELL DISTRIBUTION WIDTH 15.4 % (11.5-20.0)
[2016-07-26 11:26] LABS: HEMATOCRIT 21.3 % (39.0-49.0); HEMOGLOBIN 7.1 gm/dL (13.2-17.3); WHITE BLOOD COUNT 4.4 Th/cmm (4.8-10.8)
[2016-07-26 12:58] LABS: ANISOCYTOSIS 1+; BASOPHIL 2 % (0-3); EOSINOPHIL 8 % (0-5); NEUTROPHILS 67 % (40-80); PLATELET ESTIMATE DECREASED PLATELETS (NORMAL); PLATELET MORPHOLOGY NORMAL (NORMAL); TOTAL CELLS COUNTED 100
[2016-07-26 13:00] VITALS: BP 114/73
[2016-07-26] MEDS: Epoetin Alfa 20000 Units/mL Vial SUBQ SCH (15:34)
[2016-07-26] MEDS: Morphine Sulfate 2 mg/mL 1mL Syr IV PRN (16:26)
--- NOTE | 2016-07-26 18:10 | General Progress Note ---
Subjective - Review of Systems Service Date: 07/26/16 Subjective: more cooperative today but still refused Seroquel Objective - Results Result Diagrams: 07/26/16 11:05 07/24/16 05:00 Recent Labs: Laboratory Last Values WBC 4.4 Th/cmm (4.8-10.8) L D 07/26/16 11:05 RBC 2.44 Mil/cmm (4.30-5.70) L 07/26/16 11:05 Hgb 7.1 gm/dL (13.2-17.3) L* 07/26/16 11:05 Hct 21.3 % (39.0-49.0) L* 07/26/16 11:05 MCV 87.5 fl (80-99) 07/26/16 11:05 MCH 29.3 pg (26.0-30.0) 07/26/16 11:05 MCHC Differential 33.4 pg (28.0-36.0) 07/26/16 11:05 RDW 15.4 % (11.5-20.0) 07/26/16 11:05 Plt Count 139 Th/cmm (150-400) L 07/26/16 11:05 MPV 8.4 fl 07/26/16 11:05 Neutrophils % 56.8 % (40.0-80.0) 07/07/16 06:00 Band Neutrophils % 1 % (0-10) 07/24/16 05:00 Lymphocytes % 18.4 % (20.0-50.0) L 07/07/16 06:00 Monocytes % 13.8 % (2.0-10.0) H 07/07/16 06:00 Eosinophils % 11.0 % (0.0-5.0) H 07/07/16 06:00 Basophils % 0.0 % (0.0-2.0) 07/07/16 06:00 Neutrophils (Manual) 67 % (40-80) 07/26/16 11:05 Lymphocytes 15 % (20-50) L 07/26/16 11:05 Monocytes 8 % (2-10) 07/26/16 11:05 Eosinophils 8 % (0-5) H 07/26/16 11:05 Basophils 2 % (0-3) 07/26/16 11:05 Myelocytes 1 % 07/14/16 16:00 Hypochromia 1+ 07/20/16 23:30 Platelet Estimate DECREASED PLATELETS (NORMAL) 07/26/16 11:05 Platelet Morphology NORMAL (NORMAL) 07/26/16 11:05 Polychromasia 1+ 07/20/16 23:30 Anisocytosis 1+ 07/26/16 11:05 Microcytosis 1+ 07/14/16 16:00 RBC Morph Micro Appear ABNORMAL (NORMAL) 07/26/16 11:05 PT 12.7 SECONDS (9.5-11.5) H 07/01/16 06:57 INR 1.26 (0.5-1.4) 07/01/16 06:57 PTT (Actin FS) 28.3 SECONDS (26.0-38.0) 06/28/16 04:38 Specimen Source art 06/22/16 20:03 Sample Site Right Radial 06/22/16 20:03 pH 7.49 (7.35-7.45) H 06/22/16 20:03 pCO2 34.0 mmHg (35.0-45.0) L 06/22/16 20:03 pO2 97.0 mmHg (80.0-100.0) 06/22/16 20:03 HCO3 25.9 mmol/L (20.0-26.0) 06/22/16 20:03 Base Excess 2.8 mmol/L (-3.0-3.0) 06/22/16 20:03 O2 Saturation 98.0 % (92.0-100.0) 06/22/16 20:03 Estuardo Test P 06/22/16 20:03 Vent Rate NA 06/22/16 20:03 Inspired O2 21 06/22/16 20:03 Tidal Volume NA 06/22/16 20:03 PEEP NA 06/22/16 20:03 Pressure (ins/psv/peep) NA 06/22/16 20:03 Critical Value RPINEIRA 06/22/16 20:03 Sodium 130 mEq/L (136-145) L 07/24/16 05:00 Potassium 4.1 mEq/L (3.5-5.1) 07/24/16 05:00 Chloride 95 mEq/L (98-107) L 07/24/16 05:00 Carbon Dioxide 25.7 mEq/L (21.0-31.0) 07/24/16 05:00 Anion Gap 13.4 (7.0-16.0) 07/24/16 05:00 BUN 63 mg/dL (7-25) H 07/24/16 05:00 Creatinine 4.7 mg/dL (0.7-1.3) H* 07/24/16 05:00 Est GFR ( Amer) 17.1 ml/min (>90) 07/24/16 05:00 Est GFR (Non-Af Amer) 14.2 ml/min 07/24/16 05:00 BUN/Creatinine Ratio 13.4 07/24/16 05:00 Glucose 120 mg/dL (70-105) H 07/24/16 05:00 Calcium 9.3 mg/dL (8.6-10.3) 07/24/16 05:00 Phosphorus 5.5 mg/dL (2.5-5.0) H 07/19/16 09:50 Magnesium 2.0 mg/dL (1.9-2.7) 07/07/16 06:00 Iron 42 ug/dL (38-169) 06/28/16 04:38 TIBC 269 ug/dL (250-450) 06/28/16 04:38 Iron Saturation 16 % (15-55) 06/28/16 04:38 Unsaturated IBC 227 ug/dL (111-343) 06/28/16 04:38 Ferritin 150 ng/mL (30-400) 06/26/16 08:30 Total Bilirubin 0.9 mg/dL (0.3-1.0) 07/14/16 06:45 Direct Bilirubin 0.70 mg/dL (0.0-0.2) H 06/28/16 04:38 GGTP 14 IU/L (0-65) 06/28/16 04:38 AST 27 U/L (13-39) 07/14/16 06:45 ALT 8 U/L (7-52) 07/14/16 06:45 Alkaline Phosphatase 42 U/L (34-104) 07/14/16 06:45 Ammonia 105 umol/L (16-53) H 07/02/16 06:40 Troponin I < 0.01 ng/mL (0.01-0.05) L 06/22/16 19:33 B-Natriuretic Peptide 668.0 pg/mL (5.0-100.0) H 06/22/16 19:33 Total Protein 7.7 gm/dL (6.0-8.3) 07/14/16 06:45 Albumin 2.8 gm/dL (4.2-5.5) L 07/14/16 06:45 Globulin 4.9 gm/dL 07/14/16 06:45 Albumin/Globulin Ratio 0.6 (1.0-1.8) L 07/14/16 06:45 Amylase 28 U/L (29-103) L 07/02/16 06:40 Lipase 31 U/L (11-82) 07/02/16 06:40 Urine Source CLEAN C 06/29/16 05:55 Urine Color YELLOW 06/29/16 05:55 Urine Clarity HAZY (CLEAR) 06/29/16 05:55 Urine pH 5.5 06/29/16 05:55 Ur Specific [place] 1.015 (1.005-1.030) 06/29/16 05:55 Urine Protein 30 mg/dL (NEGATIVE) H 06/29/16 05:55 Urine Glucose (UA) NEGATIVE mg/dL (NEGATIVE) 06/29/16 05:55 Urine Ketones NEGATIVE mg/dL (NEGATIVE) 06/29/16 05:55 Urine Blood NEGATIVE (NEGATIVE) 06/29/16 05:55 Urine Nitrate NEGATIVE (NEGATIVE) 06/29/16 05:55 Urine Bilirubin NEGATIVE (NEGATIVE) 06/29/16 05:55 Urine Urobilinogen 0.2 E.U./dL (0.2 - 1.0) 06/29/16 05:55 Ur Leukocyte Esterase TRACE (NEGATIVE) H 06/29/16 05:55 Urine RBC 0-2 /hpf (0-5) H 06/29/16 05:55 Urine WBC 6-10 /hpf (0-5) H 06/29/16 05:55 Ur Epithelial Cells FEW /lpf (FEW) 06/29/16 05:55 Urine Bacteria MANY /hpf (NONE SEEN) 06/29/16 05:55 Stool Occult Blood POSITIVE (NEGATIVE) 06/24/16 16:00 Random Vancomycin 13.4 ug/mL (5.0-40.0) 06/28/16 04:38 RPR NONREACTIVE (NONREACTIVE) 06/22/16 19:33 Hepatitis A IgM Ab Negative (Negative) 06/29/16 05:49 Hep Bs Antigen Negative (Negative) 06/29/16 05:49 Hep B Core IgM Ab Negative (Negative) 06/29/16 05:49 Hepatitis C Antibody >11.0 s/co ratio (0.0-0.9) H 06/29/16 05:49 Blood Type A POSITIVE 07/25/16 00:45 Antibody Screen NEGATIVE 07/25/16 00:45 Crossmatch See Detail 07/25/16 00:45 - Physical Exam Vitals and I&O: Vital Signs Temp 98.2 F 07/26/16 16:00 Pulse 99 07/26/16 16:00 Resp 20 07/26/16 16:00 BP 122/66 07/26/16 16:00 Pulse Ox 97 07/26/16 16:00 Intake & Output 07/25/16 07/26/16 07/26/16 18:59 06:59 18:59 Intake Total 1500 500 Output Total 2500 Balance -1000 500 Weight (lbs) 244.94 kg Intake: Oral 1500 500 Output: Hemodialysis 2500 Other: # Voids 2 1 # Bowel Movements 1 1 Stool Characteristics Formed Formed Active Medications: Current Medications Albuterol/Ipratropium (Duoneb Neb) 3 ml HHN Q2HR PRN PRN Reason: Shortness of Breath or Wheeze Stop: 09/08/16 09:51 Aspirin (Ecotrin) 325 mg PO DAILY [facility] Stop: 09/03/16 09:14 Last Admin: 07/26/16 10:57 Dose: 325 mg Calamine/Phenol (Calmoseptine) 1 appl TP QID PRN PRN Reason: Skin Irritation Stop: 09/08/16 18:33 Last Admin: 07/20/16 09:09 Dose: 1 appl Calamine/Phenol (Calmoseptine) 1 appl TP QID [facility] Stop: 09/08/16 20:59 Last Admin: 07/26/16 17:03 Dose: Not Given Diphenhydramine HCl (Benadryl 50 Mg/Ml) 50 mg IM Q8HR PRN PRN Reason: Agitation Stop: 08/25/16 12:10 Docusate Sodium (Colace) 100 mg PO Q12HR [facility] Stop: 09/16/16 08:59 Last Admin: 07/26/16 10:58 Dose: 100 mg Epoetin Bernardino (Epogen) 10,000 units SUBQ TuThSa [facility] Stop: 09/19/16 13:44 Last Admin: 07/26/16 15:34 Dose: Not Given Haloperidol Lactate (Haldol) 5 mg IM Q8HR PRN PRN Reason: Agitation Stop: 08/25/16 12:10 Lactic Acid (Lac-Hydrin Cream) 1 appl TP BID [facility] Stop: 09/12/16 08:59 Last Admin: 07/26/16 16:23 Dose: 1 appl Lactulose (Cephulac) 20 gm PO Q8HR [facility] Stop: 09/16/16 04:59 Last Admin: 07/26/16 16:00 Dose: Not Given Miscellaneous (Clinical Monitoring) 1 ea MC PRN PRN PRN Reason: RENAL DOSING Stop: 08/31/16 16:27 Morphine Sulfate (Morphine) 2 mg IV Q4H PRN PRN Reason: SEVERE PAIN Stop: 09/23/16 12:59 Last Admin: 07/26/16 16:26 Dose: 2 mg Morphine Sulfate (Morphine) 1 mg IVP Q4H PRN PRN Reason: MODERATE PAIN Stop: 09/23/16 13:03 Last Admin: 07/26/16 11:16 Dose: 1 mg Quetiapine Fumarate (Seroquel) 100 mg PO TID [facility] PRN Reason: Protocol Stop: 08/26/16 08:59 Last Admin: 07/26/16 15:00 Dose: Not Given General: Alert, No acute distress HEENT: Atraumatic, Mucous membr. moist/pink Neck: Supple, +2 carotid pulse wo bruit Cardiovascular: Regular rate, Normal S1, Normal S2 Lungs: Other (few rhonchi) Abdomen: Bowel sounds, Soft Extremities: Edema ((+) 3 bipedal edema) Neurological: Sensation intact Skin: no Rash - Procedures Procedures: Procedures Procedure Code Date ARTERY-VEIN NONAUTOGRAFT 88488 06/22/16 BLOOD TRANSFUSION SERVICE 24640 06/22/16 BYPASS L BRACH ART TO UP ARM VEIN W NONAUT SUB, OPEN [id number] 06/22/16 FLUOROSCOPY OF SUP VENA CAVA USING OT CONTRAST, GUIDANCE [id number] 06/22/16 INSERTION OF INFUSION DEV INTO SUP VENA CAVA, PERC APPROACH [id number] 06/22/16 PLACE CATHETER IN VEIN 88789 06/22/16 TRANSFUSE NONAUT RED BLOOD CELLS IN PERIPH VEIN, PERC [id number] 06/22/16 Assessment/Plan - Problem List Patient Problems: All Active Problems MEDICAL EVALUATION PER DR FRY (Acute) - Assessment Assessment: esrd on hd persistent cellulitis b/l lower ext acute on chronic anemia possible gi bleed ohs chronic a. fib hypothyroid anasarca functional quadriplegia chronic venous stasis dermatitis acute decomp psychosis hypokalemia, hypomagnesemia s/p left avg - Plan Plan: Lab - Result Diagrams 07/19/16 09:50 Lab - Result Diagrams 07/22/16 05:21 Lab - Result Diagrams 07/24/16 05:00 07/24/16 05:00 07/20/16 05:50 07/19/16 09:50 latest hgb/hct were 7.2/21.3, remains stable HD in am placement in progress Lab - Result Diagrams 07/19/16 09:50 07/20/16 05:50 Lab - Result Diagrams 07/21/16 06:16 07/20/16 05:50 Lab - Result Diagrams 07/26/16 11:05 07/24/16 05:00
[2016-07-27 06:42] LABS: MEAN PLATELET VOLUME 8.9 fl
[2016-07-27 06:44] LABS: MEAN CELL VOLUME 86.8 fl (80-99); MEAN CORPUSCULAR HEMOGLOBIN 28.7 pg (26.0-30.0); MEAN CORPUSCULAR HGB CONC 33.1 pg (28.0-36.0); PLATELET COUNT 156 Th/cmm (150-400); RED BLOOD COUNT 2.54 Mil/cmm (4.30-5.70); RED CELL DISTRIBUTION WIDTH 15.6 % (11.5-20.0); WHITE BLOOD COUNT 5.4 Th/cmm (4.8-10.8)
[2016-07-27 06:53] LABS: ANION GAP 13.6 (7.0-16.0); BUN/CREATININE RATIO 12.2; CALCIUM SERUM 9.3 mg/dL (8.6-10.3); CARBON DIOXIDE 26.3 mEq/L (21.0-31.0); POTASSIUM SERUM 3.9 mEq/L (3.5-5.1)
[2016-07-27 07:05] LABS: HEMOGLOBIN 7.3 gm/dL (13.2-17.3)
[2016-07-27 07:14] LABS: CREATININE - SERUM 4.9 mg/dL (0.7-1.3)
[2016-07-27] MEDS: Lactulose 10 Gm/15 mL 30mL UDC PO SCH ×3 (07:43→20:39)
--- NOTE | 2016-07-27 08:21 | General Progress Note ---
Subjective - Review of Systems Subjective: renal notes noted Objective - Results Result Diagrams: 07/27/16 05:55 07/27/16 05:55 Recent Labs: Laboratory Last Values WBC 5.4 Th/cmm (4.8-10.8) D 07/27/16 05:55 RBC 2.54 Mil/cmm (4.30-5.70) L 07/27/16 05:55 Hgb 7.3 gm/dL (13.2-17.3) L* 07/27/16 05:55 Hct 22.0 % (39.0-49.0) L* 07/27/16 05:55 MCV 86.8 fl (80-99) 07/27/16 05:55 MCH 28.7 pg (26.0-30.0) 07/27/16 05:55 MCHC Differential 33.1 pg (28.0-36.0) 07/27/16 05:55 RDW 15.6 % (11.5-20.0) 07/27/16 05:55 Plt Count 156 Th/cmm (150-400) 07/27/16 05:55 MPV 8.9 fl 07/27/16 05:55 Neutrophils % 56.8 % (40.0-80.0) 07/07/16 06:00 Band Neutrophils % 1 % (0-10) 07/24/16 05:00 Lymphocytes % 18.4 % (20.0-50.0) L 07/07/16 06:00 Monocytes % 13.8 % (2.0-10.0) H 07/07/16 06:00 Eosinophils % 11.0 % (0.0-5.0) H 07/07/16 06:00 Basophils % 0.0 % (0.0-2.0) 07/07/16 06:00 Neutrophils (Manual) 67 % (40-80) 07/26/16 11:05 Lymphocytes 15 % (20-50) L 07/26/16 11:05 Monocytes 8 % (2-10) 07/26/16 11:05 Eosinophils 8 % (0-5) H 07/26/16 11:05 Basophils 2 % (0-3) 07/26/16 11:05 Myelocytes 1 % 07/14/16 16:00 Hypochromia 1+ 07/20/16 23:30 Platelet Estimate DECREASED PLATELETS (NORMAL) 07/26/16 11:05 Platelet Morphology NORMAL (NORMAL) 07/26/16 11:05 Polychromasia 1+ 07/20/16 23:30 Anisocytosis 1+ 07/26/16 11:05 Microcytosis 1+ 07/14/16 16:00 RBC Morph Micro Appear ABNORMAL (NORMAL) 07/26/16 11:05 PT 12.7 SECONDS (9.5-11.5) H 07/01/16 06:57 INR 1.26 (0.5-1.4) 07/01/16 06:57 PTT (Actin FS) 28.3 SECONDS (26.0-38.0) 06/28/16 04:38 Specimen Source art 06/22/16 20:03 Sample Site Right Radial 06/22/16 20:03 pH 7.49 (7.35-7.45) H 06/22/16 20:03 pCO2 34.0 mmHg (35.0-45.0) L 06/22/16 20:03 pO2 97.0 mmHg (80.0-100.0) 06/22/16 20:03 HCO3 25.9 mmol/L (20.0-26.0) 06/22/16 20:03 Base Excess 2.8 mmol/L (-3.0-3.0) 06/22/16 20:03 O2 Saturation 98.0 % (92.0-100.0) 06/22/16 20:03 Estuardo Test P 06/22/16 20:03 Vent Rate NA 06/22/16 20:03 Inspired O2 21 06/22/16 20:03 Tidal Volume NA 06/22/16 20:03 PEEP NA 06/22/16 20:03 Pressure (ins/psv/peep) NA 06/22/16 20:03 Critical Value RPINEIRA 06/22/16 20:03 Sodium 131 mEq/L (136-145) L 07/27/16 05:55 Potassium 3.9 mEq/L (3.5-5.1) 07/27/16 05:55 Chloride 95 mEq/L (98-107) L 07/27/16 05:55 Carbon Dioxide 26.3 mEq/L (21.0-31.0) 07/27/16 05:55 Anion Gap 13.6 (7.0-16.0) 07/27/16 05:55 BUN 60 mg/dL (7-25) H 07/27/16 05:55 Creatinine 4.9 mg/dL (0.7-1.3) H* 07/27/16 05:55 Est GFR ( Amer) 16.3 ml/min (>90) 07/27/16 05:55 Est GFR (Non-Af Amer) 13.5 ml/min 07/27/16 05:55 BUN/Creatinine Ratio 12.2 07/27/16 05:55 Glucose 111 mg/dL (70-105) H 07/27/16 05:55 Calcium 9.3 mg/dL (8.6-10.3) 07/27/16 05:55 Phosphorus 5.5 mg/dL (2.5-5.0) H 07/19/16 09:50 Magnesium 2.0 mg/dL (1.9-2.7) 07/07/16 06:00 Iron 42 ug/dL (38-169) 06/28/16 04:38 TIBC 269 ug/dL (250-450) 06/28/16 04:38 Iron Saturation 16 % (15-55) 06/28/16 04:38 Unsaturated IBC 227 ug/dL (111-343) 06/28/16 04:38 Ferritin 150 ng/mL (30-400) 06/26/16 08:30 Total Bilirubin 0.9 mg/dL (0.3-1.0) 07/14/16 06:45 Direct Bilirubin 0.70 mg/dL (0.0-0.2) H 06/28/16 04:38 GGTP 14 IU/L (0-65) 06/28/16 04:38 AST 27 U/L (13-39) 07/14/16 06:45 ALT 8 U/L (7-52) 07/14/16 06:45 Alkaline Phosphatase 42 U/L (34-104) 07/14/16 06:45 Ammonia 105 umol/L (16-53) H 07/02/16 06:40 Troponin I < 0.01 ng/mL (0.01-0.05) L 06/22/16 19:33 B-Natriuretic Peptide 668.0 pg/mL (5.0-100.0) H 06/22/16 19:33 Total Protein 7.7 gm/dL (6.0-8.3) 07/14/16 06:45 Albumin 2.8 gm/dL (4.2-5.5) L 07/14/16 06:45 Globulin 4.9 gm/dL 07/14/16 06:45 Albumin/Globulin Ratio 0.6 (1.0-1.8) L 07/14/16 06:45 Amylase 28 U/L (29-103) L 07/02/16 06:40 Lipase 31 U/L (11-82) 07/02/16 06:40 Urine Source CLEAN C 06/29/16 05:55 Urine Color YELLOW 06/29/16 05:55 Urine Clarity HAZY (CLEAR) 06/29/16 05:55 Urine pH 5.5 06/29/16 05:55 Ur Specific [place] 1.015 (1.005-1.030) 06/29/16 05:55 Urine Protein 30 mg/dL (NEGATIVE) H 06/29/16 05:55 Urine Glucose (UA) NEGATIVE mg/dL (NEGATIVE) 06/29/16 05:55 Urine Ketones NEGATIVE mg/dL (NEGATIVE) 06/29/16 05:55 Urine Blood NEGATIVE (NEGATIVE) 06/29/16 05:55 Urine Nitrate NEGATIVE (NEGATIVE) 06/29/16 05:55 Urine Bilirubin NEGATIVE (NEGATIVE) 06/29/16 05:55 Urine Urobilinogen 0.2 E.U./dL (0.2 - 1.0) 06/29/16 05:55 Ur Leukocyte Esterase TRACE (NEGATIVE) H 06/29/16 05:55 Urine RBC 0-2 /hpf (0-5) H 06/29/16 05:55 Urine WBC 6-10 /hpf (0-5) H 06/29/16 05:55 Ur Epithelial Cells FEW /lpf (FEW) 06/29/16 05:55 Urine Bacteria MANY /hpf (NONE SEEN) 06/29/16 05:55 Stool Occult Blood POSITIVE (NEGATIVE) 06/24/16 16:00 Random Vancomycin 13.4 ug/mL (5.0-40.0) 06/28/16 04:38 RPR NONREACTIVE (NONREACTIVE) 06/22/16 19:33 Hepatitis A IgM Ab Negative (Negative) 06/29/16 05:49 Hep Bs Antigen Negative (Negative) 06/29/16 05:49 Hep B Core IgM Ab Negative (Negative) 06/29/16 05:49 Hepatitis C Antibody >11.0 s/co ratio (0.0-0.9) H 06/29/16 05:49 Blood Type A POSITIVE 07/25/16 00:45 Antibody Screen NEGATIVE 07/25/16 00:45 Crossmatch See Detail 07/25/16 00:45 - Physical Exam Vitals and I&O: Vital Signs Temp 97.7 F 07/27/16 00:00 Pulse 107 07/27/16 00:00 Resp 18 07/27/16 00:00 BP 118/57 07/27/16 00:00 Pulse Ox 98 07/27/16 00:00 Intake & Output 07/26/16 07/27/16 07/27/16 18:59 06:59 18:59 Intake Total 500 300 Balance 500 300 Weight (lbs) 244.94 kg Intake: Oral 500 300 Other: # Voids 1 # Bowel Movements 1 Stool Characteristics Formed Active Medications: Current Medications Albuterol/Ipratropium (Duoneb Neb) 3 ml HHN Q2HR PRN PRN Reason: Shortness of Breath or Wheeze Stop: 09/08/16 09:51 Aspirin (Ecotrin) 325 mg PO DAILY [facility] Stop: 09/03/16 09:14 Last Admin: 07/26/16 10:57 Dose: 325 mg Calamine/Phenol (Calmoseptine) 1 appl TP QID PRN PRN Reason: Skin Irritation Stop: 09/08/16 18:33 Last Admin: 07/20/16 09:09 Dose: 1 appl Calamine/Phenol (Calmoseptine) 1 appl TP QID [facility] Stop: 09/08/16 20:59 Last Admin: 07/26/16 21:17 Dose: 1 appl Diphenhydramine HCl (Benadryl 50 Mg/Ml) 50 mg IM Q8HR PRN PRN Reason: Agitation Stop: 08/25/16 12:10 Docusate Sodium (Colace) 100 mg PO Q12HR [facility] Stop: 09/16/16 08:59 Last Admin: 07/26/16 21:17 Dose: Not Given Epoetin Bernardino (Epogen) 10,000 units SUBQ TuThSa [facility] Stop: 09/19/16 13:44 Last Admin: 07/26/16 15:34 Dose: Not Given Haloperidol Lactate (Haldol) 5 mg IM Q8HR PRN PRN Reason: Agitation Stop: 08/25/16 12:10 Lactic Acid (Lac-Hydrin Cream) 1 appl TP BID [facility] Stop: 09/12/16 08:59 Last Admin: 07/26/16 16:23 Dose: 1 appl Lactulose (Cephulac) 20 gm PO Q8HR [facility] Stop: 09/16/16 04:59 Last Admin: 07/27/16 07:43 Dose: Not Given Miscellaneous (Clinical Monitoring) 1 ea MC PRN PRN PRN Reason: RENAL DOSING Stop: 08/31/16 16:27 Morphine Sulfate (Morphine) 2 mg IV Q4H PRN PRN Reason: SEVERE PAIN Stop: 09/23/16 12:59 Last Admin: 07/26/16 16:26 Dose: 2 mg Morphine Sulfate (Morphine) 1 mg IVP Q4H PRN PRN Reason: MODERATE PAIN Stop: 09/23/16 13:03 Last Admin: 07/26/16 11:16 Dose: 1 mg Quetiapine Fumarate (Seroquel) 100 mg PO TID [facility] PRN Reason: Protocol Stop: 08/26/16 08:59 Last Admin: 07/26/16 21:23 Dose: Not Given - Procedures Procedures: Procedures Procedure Code Date ARTERY-VEIN NONAUTOGRAFT 43394 06/22/16 BLOOD TRANSFUSION SERVICE 89471 06/22/16 BYPASS L BRACH ART TO UP ARM VEIN W NONAUT SUB, OPEN [id number] 06/22/16 FLUOROSCOPY OF SUP VENA CAVA USING [facility] CONTRAST, GUIDANCE [id number] 06/22/16 INSERTION OF INFUSION DEV INTO SUP VENA CAVA, PERC APPROACH [id number] 06/22/[address] PL[address] CATHETER IN VEIN 19022 06/22/16 TRANSFUSE NONAUT RED BLOOD CELLS IN PERIPH VEIN, PERC [id number] 06/22/16 Assessment/Plan - Problem List Patient Problems: All Active Problems MEDICAL EVALUATION PER DR FRY (Acute) - Assessment Assessment: 1. Cellulitis of legs. 2. Lymphedema of legs. 3. CKD 5 on HD. 4. Morbid obesity. 5 anemia 6 gi bleed 7 psychosis - Plan Plan: ivabx follow up labs id consult awaiting placement
[2016-07-27] MEDS: Aspirin 325 mg EC PO SCH (09:30)
[2016-07-27] MEDS: Ammonium Lactate Cream 140 gm Tube TP SCH ×2 (09:30→19:30)
[2016-07-27 11:40] LABS: NEUTROPHILS 68 % (40-80); TOTAL CELLS COUNTED 100
[2016-07-27 11:41] LABS: ANISOCYTOSIS 1+; EOSINOPHIL 8 % (0-5); PLATELET ESTIMATE ADEQUATE (NORMAL); PLATELET MORPHOLOGY NORMAL (NORMAL)
[2016-07-27] MEDS: Menthol/Zinc Oxide Oint 113gm Tube TP SCH ×4 (13:39→20:46)
--- NOTE | 2016-07-27 14:20 | General Progress Note ---
Subjective - Review of Systems Service Date: 07/27/16 Subjective: sleeping, comfortable Objective - Results Result Diagrams: 07/27/16 05:55 07/27/16 05:55 Recent Labs: Laboratory Last Values WBC 5.4 Th/cmm (4.8-10.8) D 07/27/16 05:55 RBC 2.54 Mil/cmm (4.30-5.70) L 07/27/16 05:55 Hgb 7.3 gm/dL (13.2-17.3) L* 07/27/16 05:55 Hct 22.0 % (39.0-49.0) L* 07/27/16 05:55 MCV 86.8 fl (80-99) 07/27/16 05:55 MCH 28.7 pg (26.0-30.0) 07/27/16 05:55 MCHC Differential 33.1 pg (28.0-36.0) 07/27/16 05:55 RDW 15.6 % (11.5-20.0) 07/27/16 05:55 Plt Count 156 Th/cmm (150-400) 07/27/16 05:55 MPV 8.9 fl 07/27/16 05:55 Neutrophils % 56.8 % (40.0-80.0) 07/07/16 06:00 Band Neutrophils % 1 % (0-10) 07/24/16 05:00 Lymphocytes % 18.4 % (20.0-50.0) L 07/07/16 06:00 Monocytes % 13.8 % (2.0-10.0) H 07/07/16 06:00 Eosinophils % 11.0 % (0.0-5.0) H 07/07/16 06:00 Basophils % 0.0 % (0.0-2.0) 07/07/16 06:00 Neutrophils (Manual) 68 % (40-80) 07/27/16 05:55 Lymphocytes 8 % (20-50) L 07/27/16 05:55 Monocytes 16 % (2-10) H 07/27/16 05:55 Eosinophils 8 % (0-5) H 07/27/16 05:55 Basophils 2 % (0-3) 07/26/16 11:05 Myelocytes 1 % 07/14/16 16:00 Hypochromia 1+ 07/20/16 23:30 Platelet Estimate ADEQUATE (NORMAL) 07/27/16 05:55 Platelet Morphology NORMAL (NORMAL) 07/27/16 05:55 Polychromasia 1+ 07/20/16 23:30 Anisocytosis 1+ 07/27/16 05:55 Microcytosis 1+ 07/14/16 16:00 RBC Morph Micro Appear ABNORMAL (NORMAL) 07/27/16 05:55 PT 12.7 SECONDS (9.5-11.5) H 07/01/16 06:57 INR 1.26 (0.5-1.4) 07/01/16 06:57 PTT (Actin FS) 28.3 SECONDS (26.0-38.0) 06/28/16 04:38 Specimen Source art 06/22/16 20:03 Sample Site Right Radial 06/22/16 20:03 pH 7.49 (7.35-7.45) H 06/22/16 20:03 pCO2 34.0 mmHg (35.0-45.0) L 06/22/16 20:03 pO2 97.0 mmHg (80.0-100.0) 06/22/16 20:03 HCO3 25.9 mmol/L (20.0-26.0) 06/22/16 20:03 Base Excess 2.8 mmol/L (-3.0-3.0) 06/22/16 20:03 O2 Saturation 98.0 % (92.0-100.0) 06/22/16 20:03 Estuardo Test P 06/22/16 20:03 Vent Rate NA 06/22/16 20:03 Inspired O2 21 06/22/16 20:03 Tidal Volume NA 06/22/16 20:03 PEEP NA 06/22/16 20:03 Pressure (ins/psv/peep) NA 06/22/16 20:03 Critical Value RPINEIRA 06/22/16 20:03 Sodium 131 mEq/L (136-145) L 07/27/16 05:55 Potassium 3.9 mEq/L (3.5-5.1) 07/27/16 05:55 Chloride 95 mEq/L (98-107) L 07/27/16 05:55 Carbon Dioxide 26.3 mEq/L (21.0-31.0) 07/27/16 05:55 Anion Gap 13.6 (7.0-16.0) 07/27/16 05:55 BUN 60 mg/dL (7-25) H 07/27/16 05:55 Creatinine 4.9 mg/dL (0.7-1.3) H* 07/27/16 05:55 Est GFR ( Amer) 16.3 ml/min (>90) 07/27/16 05:55 Est GFR (Non-Af Amer) 13.5 ml/min 07/27/16 05:55 BUN/Creatinine Ratio 12.2 07/27/16 05:55 Glucose 111 mg/dL (70-105) H 07/27/16 05:55 Calcium 9.3 mg/dL (8.6-10.3) 07/27/16 05:55 Phosphorus 5.5 mg/dL (2.5-5.0) H 07/19/16 09:50 Magnesium 2.0 mg/dL (1.9-2.7) 07/07/16 06:00 Iron 42 ug/dL (38-169) 06/28/16 04:38 TIBC 269 ug/dL (250-450) 06/28/16 04:38 Iron Saturation 16 % (15-55) 06/28/16 04:38 Unsaturated IBC 227 ug/dL (111-343) 06/28/16 04:38 Ferritin 150 ng/mL (30-400) 06/26/16 08:30 Total Bilirubin 0.9 mg/dL (0.3-1.0) 07/14/16 06:45 Direct Bilirubin 0.70 mg/dL (0.0-0.2) H 06/28/16 04:38 GGTP 14 IU/L (0-65) 06/28/16 04:38 AST 27 U/L (13-39) 07/14/16 06:45 ALT 8 U/L (7-52) 07/14/16 06:45 Alkaline Phosphatase 42 U/L (34-104) 07/14/16 06:45 Ammonia 105 umol/L (16-53) H 07/02/16 06:40 Troponin I < 0.01 ng/mL (0.01-0.05) L 06/22/16 19:33 B-Natriuretic Peptide 668.0 pg/mL (5.0-100.0) H 06/22/16 19:33 Total Protein 7.7 gm/dL (6.0-8.3) 07/14/16 06:45 Albumin 2.8 gm/dL (4.2-5.5) L 07/14/16 06:45 Globulin 4.9 gm/dL 07/14/16 06:45 Albumin/Globulin Ratio 0.6 (1.0-1.8) L 07/14/16 06:45 Amylase 28 U/L (29-103) L 07/02/16 06:40 Lipase 31 U/L (11-82) 07/02/16 06:40 Urine Source CLEAN C 06/29/16 05:55 Urine Color YELLOW 06/29/16 05:55 Urine Clarity HAZY (CLEAR) 06/29/16 05:55 Urine pH 5.5 06/29/16 05:55 Ur Specific [place] 1.015 (1.005-1.030) 06/29/16 05:55 Urine Protein 30 mg/dL (NEGATIVE) H 06/29/16 05:55 Urine Glucose (UA) NEGATIVE mg/dL (NEGATIVE) 06/29/16 05:55 Urine Ketones NEGATIVE mg/dL (NEGATIVE) 06/29/16 05:55 Urine Blood NEGATIVE (NEGATIVE) 06/29/16 05:55 Urine Nitrate NEGATIVE (NEGATIVE) 06/29/16 05:55 Urine Bilirubin NEGATIVE (NEGATIVE) 06/29/16 05:55 Urine Urobilinogen 0.2 E.U./dL (0.2 - 1.0) 06/29/16 05:55 Ur Leukocyte Esterase TRACE (NEGATIVE) H 06/29/16 05:55 Urine RBC 0-2 /hpf (0-5) H 06/29/16 05:55 Urine WBC 6-10 /hpf (0-5) H 06/29/16 05:55 Ur Epithelial Cells FEW /lpf (FEW) 06/29/16 05:55 Urine Bacteria MANY /hpf (NONE SEEN) 06/29/16 05:55 Stool Occult Blood POSITIVE (NEGATIVE) 06/24/16 16:00 Random Vancomycin 13.4 ug/mL (5.0-40.0) 06/28/16 04:38 RPR NONREACTIVE (NONREACTIVE) 06/22/16 19:33 Hepatitis A IgM Ab Negative (Negative) 06/29/16 05:49 Hep Bs Antigen Negative (Negative) 06/29/16 05:49 Hep B Core IgM Ab Negative (Negative) 06/29/16 05:49 Hepatitis C Antibody >11.0 s/co ratio (0.0-0.9) H 06/29/16 05:49 Blood Type A POSITIVE 07/25/16 00:45 Antibody Screen NEGATIVE 07/25/16 00:45 Crossmatch See Detail 07/25/16 00:45 - Physical Exam Vitals and I&O: Vital Signs Temp 97.7 F 07/27/16 00:00 Pulse 107 07/27/16 00:00 Resp 18 07/27/16 08:00 BP 118/57 07/27/16 00:00 Pulse Ox 98 07/27/16 00:00 Intake & Output 07/26/16 07/27/16 07/27/16 18:59 06:59 18:59 Intake Total 500 300 Balance 500 300 Weight (lbs) 244.94 kg Intake: Oral 500 300 Other: # Voids 1 # Bowel Movements 1 Stool Characteristics Formed Active Medications: Current Medications Albuterol/Ipratropium (Duoneb Neb) 3 ml HHN Q2HR PRN PRN Reason: Shortness of Breath or Wheeze Stop: 09/08/16 09:51 Aspirin (Ecotrin) 325 mg PO DAILY [facility] Stop: 09/03/16 09:14 Last Admin: 07/27/16 09:30 Dose: 325 mg Calamine/Phenol (Calmoseptine) 1 appl TP QID PRN PRN Reason: Skin Irritation Stop: 09/08/16 18:33 Last Admin: 07/20/16 09:09 Dose: 1 appl Calamine/Phenol (Calmoseptine) 1 appl TP QID [facility] Stop: 09/08/16 20:59 Last Admin: 07/27/16 13:45 Dose: Not Given Diphenhydramine HCl (Benadryl 50 Mg/Ml) 50 mg IM Q8HR PRN PRN Reason: Agitation Stop: 08/25/16 12:10 Docusate Sodium (Colace) 100 mg PO Q12HR [facility] Stop: 09/16/16 08:59 Last Admin: 07/27/16 09:30 Dose: 100 mg Epoetin Bernardino (Epogen) 10,000 units SUBQ [facility] Stop: 09/19/16 13:44 Last Admin: 07/26/16 15:34 Dose: Not Given Haloperidol Lactate (Haldol) 5 mg IM Q8HR PRN PRN Reason: Agitation Stop: 08/25/16 12:10 Lactic Acid (Lac-Hydrin Cream) 1 appl TP BID [facility] Stop: 09/12/16 08:59 Last Admin: 07/27/16 09:30 Dose: 1 appl Lactulose (Cephulac) 20 gm PO Q8HR [facility] Stop: 09/16/16 04:59 Last Admin: 07/27/16 13:38 Dose: Not Given Miscellaneous (Clinical Monitoring) 1 ea MC PRN PRN PRN Reason: RENAL DOSING Stop: 08/31/16 16:27 Morphine Sulfate (Morphine) 2 mg IV Q4H PRN PRN Reason: SEVERE PAIN Stop: 09/23/16 12:59 Last Admin: 07/26/16 16:26 Dose: 2 mg Morphine Sulfate (Morphine) 1 mg IVP Q4H PRN PRN Reason: MODERATE PAIN Stop: 09/23/16 13:03 Last Admin: 07/26/16 11:16 Dose: 1 mg Quetiapine Fumarate (Seroquel) 100 mg PO TID [facility] PRN Reason: Protocol Stop: 08/26/16 08:59 Last Admin: 07/27/16 09:30 Dose: 100 mg General: No acute distress HEENT: Atraumatic, Mucous membr. moist/pink Neck: Supple, +2 carotid pulse wo bruit Cardiovascular: Regular rate, Normal S1, Normal S2 Lungs: Other (few rhonchi) Abdomen: Bowel sounds, Soft Extremities: Edema ((_) 3 bipedal edema) Neurological: Sensation intact Skin: no Rash - Procedures Procedures: Procedures Procedure Code Date ARTERY-VEIN NONAUTOGRAFT 29613 06/22/16 BLOOD TRANSFUSION SERVICE 25713 06/22/16 BYPASS L BRACH ART TO UP ARM VEIN W NONAUT SUB, OPEN [id number] 06/22/16 FLUOROSCOPY OF SUP VENA CAVA USING [facility] CONTRAST, GUIDANCE [id number] 06/22/16 INSERTION OF INFUSION DEV INTO SUP VENA CAVA, PERC APPROACH [id number] 06/22/16 PLACE CATHETER IN VEIN 16316 06/22/16 TRANSFUSE NONAUT RED BLOOD CELLS IN PERIPH VEIN, PERC [id number] 06/22/16 Assessment/Plan - Problem List Patient Problems: All Active Problems MEDICAL EVALUATION PER DR FRY (Acute) - Assessment Assessment: esrd on hd persistent cellulitis b/l lower ext acute on chronic anemia possible gi bleed ohs chronic a. fib hypothyroid anasarca functional quadriplegia chronic venous stasis dermatitis acute decomp psychosis hypokalemia, hypomagnesemia s/p left avg - Plan Plan: Lab - Result Diagrams 07/19/16 09:50 Lab - Result Diagrams 07/22/16 05:21 Lab - Result Diagrams 07/24/16 05:00 07/24/16 05:00 07/20/16 05:50 07/19/16 09:50 latest hgb/hct were 7.3/22 transfuse 1 U PRBC HD for today placement in progress Lab - Result Diagrams 07/19/16 09:50 07/20/16 05:50 Lab - Result Diagrams 07/21/16 06:16 07/20/16 05:50 Lab - Result Diagrams 07/26/16 11:05 07/24/16 05:00
[2016-07-27] MEDS ORDERED: Epoetin Alfa 20000 Units/mL Vial SUBQ SCH (18:30)
[2016-07-27] MEDS ORDERED: Epoetin Alfa 20000 Units/mL Vial SUBQ ONE (20:30)
[2016-07-28] MEDS: Lactulose 10 Gm/15 mL 30mL UDC PO SCH ×4 (05:23→20:51)
[2016-07-28 05:58] LABS: MEAN CORPUSCULAR HEMOGLOBIN 28.8 pg (26.0-30.0); MEAN CORPUSCULAR HGB CONC 33.1 pg (28.0-36.0); MEAN PLATELET VOLUME 8.5 fl; PLATELET COUNT 150 Th/cmm (150-400); RED BLOOD COUNT 2.65 Mil/cmm (4.30-5.70); RED CELL DISTRIBUTION WIDTH 15.3 % (11.5-20.0); WHITE BLOOD COUNT 6.1 Th/cmm (4.8-10.8)
[2016-07-28 06:35] LABS: HEMOGLOBIN 7.6 gm/dL (13.2-17.3)
[2016-07-28 06:36] LABS: ALB/GLOB RATIO 0.5 (1.0-1.8); ANION GAP 13.9 (7.0-16.0); BILIRUBIN,TOTAL 0.8 mg/dL (0.3-1.0); BUN/CREATININE RATIO 11.5; CALCIUM SERUM 9.2 mg/dL (8.6-10.3); CARBON DIOXIDE 27.6 mEq/L (21.0-31.0); POTASSIUM SERUM 3.5 mEq/L (3.5-5.1)
[2016-07-28] MEDS: Morphine Sulfate 2 mg/mL 1mL Syr IV PRN ×3 (08:32→18:29)
[2016-07-28] MEDS: Aspirin 325 mg EC PO SCH (08:32)
[2016-07-28] MEDS: Ammonium Lactate Cream 140 gm Tube TP SCH ×2 (08:33→16:45)
[2016-07-28] MEDS: Menthol/Zinc Oxide Oint 113gm Tube TP SCH ×4 (08:34→20:51)
[2016-07-28 08:44] LABS: ANISOCYTOSIS 1+; BAND NEUTROPHILE 1 % (0-10); EOSINOPHIL 6 % (0-5); NEUTROPHILS 82 % (40-80); PLATELET ESTIMATE ADEQUATE (NORMAL); PLATELET MORPHOLOGY NORMAL (NORMAL); TOTAL CELLS COUNTED 100
--- NOTE | 2016-07-28 09:23 | General Progress Note ---
Subjective - Review of Systems Events since last encounter: no distress Subjective: renal notes noted Objective - Results Result Diagrams: 07/28/16 05:30 07/28/16 05:30 Recent Labs: Laboratory Last Values WBC 6.1 Th/cmm (4.8-10.8) 07/28/16 05:30 RBC 2.65 Mil/cmm (4.30-5.70) L 07/28/16 05:30 Hgb 7.6 gm/dL (13.2-17.3) L* 07/28/16 05:30 Hct 23.0 % (39.0-49.0) L* 07/28/16 05:30 MCV 87.0 fl (80-99) 07/28/16 05:30 MCH 28.8 pg (26.0-30.0) 07/28/16 05:30 MCHC Differential 33.1 pg (28.0-36.0) 07/28/16 05:30 RDW 15.3 % (11.5-20.0) 07/28/16 05:30 Plt Count 150 Th/cmm (150-400) 07/28/16 05:30 MPV 8.5 fl 07/28/16 05:30 Neutrophils % 56.8 % (40.0-80.0) 07/07/16 06:00 Band Neutrophils % 1 % (0-10) 07/28/16 05:30 Lymphocytes % 18.4 % (20.0-50.0) L 07/07/16 06:00 Monocytes % 13.8 % (2.0-10.0) H 07/07/16 06:00 Eosinophils % 11.0 % (0.0-5.0) H 07/07/16 06:00 Basophils % 0.0 % (0.0-2.0) 07/07/16 06:00 Neutrophils (Manual) 82 % (40-80) H 07/28/16 05:30 Lymphocytes 5 % (20-50) L 07/28/16 05:30 Monocytes 6 % (2-10) 07/28/16 05:30 Eosinophils 6 % (0-5) H 07/28/16 05:30 Basophils 2 % (0-3) 07/26/16 11:05 Myelocytes 1 % 07/14/16 16:00 Hypochromia 1+ 07/20/16 23:30 Platelet Estimate ADEQUATE (NORMAL) 07/28/16 05:30 Platelet Morphology NORMAL (NORMAL) 07/28/16 05:30 Polychromasia 1+ 07/20/16 23:30 Anisocytosis 1+ 07/28/16 05:30 Microcytosis 1+ 07/14/16 16:00 RBC Morph Micro Appear ABNORMAL (NORMAL) 07/28/16 05:30 PT 12.7 SECONDS (9.5-11.5) H 07/01/16 06:57 INR 1.26 (0.5-1.4) 07/01/16 06:57 PTT (Actin FS) 28.3 SECONDS (26.0-38.0) 06/28/16 04:38 Specimen Source art 06/22/16 20:03 Sample Site Right Radial 06/22/16 20:03 pH 7.49 (7.35-7.45) H 06/22/16 20:03 pCO2 34.0 mmHg (35.0-45.0) L 06/22/16 20:03 pO2 97.0 mmHg (80.0-100.0) 06/22/16 20:03 HCO3 25.9 mmol/L (20.0-26.0) 06/22/16 20:03 Base Excess 2.8 mmol/L (-3.0-3.0) 06/22/16 20:03 O2 Saturation 98.0 % (92.0-100.0) 06/22/16 20:03 Estuardo Test P 06/22/16 20:03 Vent Rate NA 06/22/16 20:03 Inspired O2 21 06/22/16 20:03 Tidal Volume NA 06/22/16 20:03 PEEP NA 06/22/16 20:03 Pressure (ins/psv/peep) NA 06/22/16 20:03 Critical Value RPINEIRA 06/22/16 20:03 Sodium 133 mEq/L (136-145) L 07/28/16 05:30 Potassium 3.5 mEq/L (3.5-5.1) 07/28/16 05:30 Chloride 95 mEq/L (98-107) L 07/28/16 05:30 Carbon Dioxide 27.6 mEq/L (21.0-31.0) 07/28/16 05:30 Anion Gap 13.9 (7.0-16.0) 07/28/16 05:30 BUN 46 mg/dL (7-25) H 07/28/16 05:30 Creatinine 4.0 mg/dL (0.7-1.3) H 07/28/16 05:30 Est GFR ( Amer) 20.6 ml/min (>90) 07/28/16 05:30 Est GFR (Non-Af Amer) 17.0 ml/min 07/28/16 05:30 BUN/Creatinine Ratio 11.5 07/28/16 05:30 Glucose 99 mg/dL (70-105) 07/28/16 05:30 Calcium 9.2 mg/dL (8.6-10.3) 07/28/16 05:30 Phosphorus 5.5 mg/dL (2.5-5.0) H 07/19/16 09:50 Magnesium 2.0 mg/dL (1.9-2.7) 07/07/16 06:00 Iron 42 ug/dL (38-169) 06/28/16 04:38 TIBC 269 ug/dL (250-450) 06/28/16 04:38 Iron Saturation 16 % (15-55) 06/28/16 04:38 Unsaturated IBC 227 ug/dL (111-343) 06/28/16 04:38 Ferritin 150 ng/mL (30-400) 06/26/16 08:30 Total Bilirubin 0.8 mg/dL (0.3-1.0) 07/28/16 05:30 Direct Bilirubin 0.70 mg/dL (0.0-0.2) H 06/28/16 04:38 GGTP 14 IU/L (0-65) 06/28/16 04:38 AST 52 U/L (13-39) H 07/28/16 05:30 ALT 30 U/L (7-52) 07/28/16 05:30 Alkaline Phosphatase 38 U/L (34-104) 07/28/16 05:30 Ammonia 105 umol/L (16-53) H 07/02/16 06:40 Troponin I < 0.01 ng/mL (0.01-0.05) L 06/22/16 19:33 B-Natriuretic Peptide 668.0 pg/mL (5.0-100.0) H 06/22/16 19:33 Total Protein 7.8 gm/dL (6.0-8.3) 07/28/16 05:30 Albumin 2.7 gm/dL (4.2-5.5) L 07/28/16 05:30 Globulin 5.1 gm/dL 07/28/16 05:30 Albumin/Globulin Ratio 0.5 (1.0-1.8) L 07/28/16 05:30 Amylase 28 U/L (29-103) L 07/02/16 06:40 Lipase 31 U/L (11-82) 07/02/16 06:40 Urine Source CLEAN C 06/29/16 05:55 Urine Color YELLOW 06/29/16 05:55 Urine Clarity HAZY (CLEAR) 06/29/16 05:55 Urine pH 5.5 06/29/16 05:55 Ur Specific [place] 1.015 (1.005-1.030) 06/29/16 05:55 Urine Protein 30 mg/dL (NEGATIVE) H 06/29/16 05:55 Urine Glucose (UA) NEGATIVE mg/dL (NEGATIVE) 06/29/16 05:55 Urine Ketones NEGATIVE mg/dL (NEGATIVE) 06/29/16 05:55 Urine Blood NEGATIVE (NEGATIVE) 06/29/16 05:55 Urine Nitrate NEGATIVE (NEGATIVE) 06/29/16 05:55 Urine Bilirubin NEGATIVE (NEGATIVE) 06/29/16 05:55 Urine Urobilinogen 0.2 E.U./dL (0.2 - 1.0) 06/29/16 05:55 Ur Leukocyte Esterase TRACE (NEGATIVE) H 06/29/16 05:55 Urine RBC 0-2 /hpf (0-5) H 06/29/16 05:55 Urine WBC 6-10 /hpf (0-5) H 06/29/16 05:55 Ur Epithelial Cells FEW /lpf (FEW) 06/29/16 05:55 Urine Bacteria MANY /hpf (NONE SEEN) 06/29/16 05:55 Stool Occult Blood POSITIVE (NEGATIVE) 06/24/16 16:00 Random Vancomycin 13.4 ug/mL (5.0-40.0) 06/28/16 04:38 RPR NONREACTIVE (NONREACTIVE) 06/22/16 19:33 Hepatitis A IgM Ab Negative (Negative) 06/29/16 05:49 Hep Bs Antigen Negative (Negative) 06/29/16 05:49 Hep B Core IgM Ab Negative (Negative) 06/29/16 05:49 Hepatitis C Antibody >11.0 s/co ratio (0.0-0.9) H 06/29/16 05:49 Blood Type A POSITIVE 07/25/16 00:45 Antibody Screen NEGATIVE 07/25/16 00:45 Crossmatch See Detail 07/25/16 00:45 - Physical Exam Vitals and I&O: Vital Signs Temp 99.0 F 07/28/16 08:00 Pulse 110 07/28/16 08:00 Resp 19 07/28/16 08:00 BP 111/75 07/28/16 08:00 Pulse Ox 100 07/28/16 08:00 Intake & Output 07/27/16 07/28/16 07/28/16 18:59 06:59 18:59 Intake Total 1060 Output Total 1200 Balance -140 Intake: Oral 1060 Output: Urine 1200 Other: # Bowel Movements 1 Active Medications: Current Medications Albuterol/Ipratropium (Duoneb Neb) 3 ml HHN Q2HR PRN PRN Reason: Shortness of Breath or Wheeze Stop: 09/08/16 09:51 Aspirin (Ecotrin) 325 mg PO DAILY [facility] Stop: 09/03/16 09:14 Last Admin: 07/28/16 08:32 Dose: 325 mg Calamine/Phenol (Calmoseptine) 1 appl TP QID PRN PRN Reason: Skin Irritation Stop: 09/08/16 18:33 Last Admin: 07/20/16 09:09 Dose: 1 appl Calamine/Phenol (Calmoseptine) 1 appl TP QID [facility] Stop: 09/08/16 20:59 Last Admin: 07/28/16 08:34 Dose: 1 appl Diphenhydramine HCl (Benadryl 50 Mg/Ml) 50 mg IM Q8HR PRN PRN Reason: Agitation Stop: 08/25/16 12:10 Docusate Sodium (Colace) 100 mg PO Q12HR [facility] Stop: 09/16/16 08:59 Last Admin: 07/28/16 08:32 Dose: 100 mg Epoetin Bernardino (Epogen) 10,000 units SUBQ [facility] Stop: 09/19/16 13:44 Last Admin: 07/26/16 15:34 Dose: Not Given Haloperidol Lactate (Haldol) 5 mg IM Q8HR PRN PRN Reason: Agitation Stop: 08/25/16 12:10 Lactic Acid (Lac-Hydrin Cream) 1 appl TP BID [facility] Stop: 09/12/16 08:59 Last Admin: 07/28/16 08:33 Dose: 1 appl Lactulose (Cephulac) 20 gm PO Q8HR [facility] Stop: 09/16/16 04:59 Last Admin: 07/28/16 05:23 Dose: Not Given Miscellaneous (Clinical Monitoring) 1 ea MC PRN PRN PRN Reason: RENAL DOSING Stop: 08/31/16 16:27 Morphine Sulfate (Morphine) 2 mg IV Q4H PRN PRN Reason: SEVERE PAIN Stop: 09/23/16 12:59 Last Admin: 07/28/16 08:32 Dose: 2 mg Morphine Sulfate (Morphine) 1 mg IVP Q4H PRN PRN Reason: MODERATE PAIN Stop: 09/23/16 13:03 Last Admin: 07/26/16 11:16 Dose: 1 mg Quetiapine Fumarate (Seroquel) 100 mg PO TID [facility] PRN Reason: Protocol Stop: 08/26/16 08:59 Last Admin: 07/28/16 08:36 Dose: Not Given General: No acute distress HEENT: Atraumatic Neck: Supple Cardiovascular: Regular rate Lungs: Clear to auscultation - Procedures Procedures: Procedures Procedure Code Date ARTERY-VEIN NONAUTOGRAFT 71262 06/22/16 BLOOD TRANSFUSION SERVICE 45312 06/22/16 BYPASS L BRACH ART TO UP ARM VEIN W NONAUT SUB, OPEN [id number] 06/22/16 FLUOROSCOPY OF SUP VENA CAVA USING [facility] CONTRAST, GUIDANCE [id number] 06/22/16 INSERTION OF INFUSION DEV INTO SUP VENA CAVA, PERC APPROACH [id number] 06/22/[address] PL[address] CATHETER IN VEIN 45692 06/22/16 TRANSFUSE NONAUT RED BLOOD CELLS IN PERIPH VEIN, PERC [id number] 06/22/16 Assessment/Plan - Problem List Patient Problems: All Active Problems MEDICAL EVALUATION PER DR FRY (Acute) - Assessment Assessment: 1. Cellulitis of legs. 2. Lymphedema of legs. 3. CKD 5 on HD. 4. Morbid obesity. 5 anemia 6 gi bleed 7 psychosis - Plan Plan: ivabx follow up labs id consult awaiting placement
--- NOTE | 2016-07-28 14:58 | General Progress Note ---
Subjective - Review of Systems Service Date: 07/28/16 Subjective: sleeping, comfortable Objective - Results Result Diagrams: 07/28/16 05:30 07/28/16 05:30 Recent Labs: Laboratory Last Values WBC 6.1 Th/cmm (4.8-10.8) 07/28/16 05:30 RBC 2.65 Mil/cmm (4.30-5.70) L 07/28/16 05:30 Hgb 7.6 gm/dL (13.2-17.3) L* 07/28/16 05:30 Hct 23.0 % (39.0-49.0) L* 07/28/16 05:30 MCV 87.0 fl (80-99) 07/28/16 05:30 MCH 28.8 pg (26.0-30.0) 07/28/16 05:30 MCHC Differential 33.1 pg (28.0-36.0) 07/28/16 05:30 RDW 15.3 % (11.5-20.0) 07/28/16 05:30 Plt Count 150 Th/cmm (150-400) 07/28/16 05:30 MPV 8.5 fl 07/28/16 05:30 Neutrophils % 56.8 % (40.0-80.0) 07/07/16 06:00 Band Neutrophils % 1 % (0-10) 07/28/16 05:30 Lymphocytes % 18.4 % (20.0-50.0) L 07/07/16 06:00 Monocytes % 13.8 % (2.0-10.0) H 07/07/16 06:00 Eosinophils % 11.0 % (0.0-5.0) H 07/07/16 06:00 Basophils % 0.0 % (0.0-2.0) 07/07/16 06:00 Neutrophils (Manual) 82 % (40-80) H 07/28/16 05:30 Lymphocytes 5 % (20-50) L 07/28/16 05:30 Monocytes 6 % (2-10) 07/28/16 05:30 Eosinophils 6 % (0-5) H 07/28/16 05:30 Basophils 2 % (0-3) 07/26/16 11:05 Myelocytes 1 % 07/14/16 16:00 Hypochromia 1+ 03/03/17 23:30 Platelet Estimate ADEQUATE (NORMAL) 07/28/16 05:30 Platelet Morphology NORMAL (NORMAL) 07/28/16 05:30 Polychromasia 1+ 07/20/16 23:30 Anisocytosis 1+ 07/28/16 05:30 Microcytosis 1+ 07/14/16 16:00 RBC Morph Micro Appear ABNORMAL (NORMAL) 07/28/16 05:30 PT 12.7 SECONDS (9.5-11.5) H 07/01/16 06:57 INR 1.26 (0.5-1.4) 07/01/16 06:57 PTT (Actin FS) 28.3 SECONDS (26.0-38.0) 06/28/16 04:38 Specimen Source art 06/22/16 20:03 Sample Site Right Radial 06/22/16 20:03 pH 7.49 (7.35-7.45) H 06/22/16 20:03 pCO2 34.0 mmHg (35.0-45.0) L 06/22/16 20:03 pO2 97.0 mmHg (80.0-100.0) 06/22/16 20:03 HCO3 25.9 mmol/L (20.0-26.0) 06/22/16 20:03 Base Excess 2.8 mmol/L (-3.0-3.0) 06/22/16 20:03 O2 Saturation 98.0 % (92.0-100.0) 06/22/16 20:03 Estuardo Test P 06/22/16 20:03 Vent Rate NA 06/22/16 20:03 Inspired O2 21 06/22/16 20:03 Tidal Volume NA 06/22/16 20:03 PEEP NA 06/22/16 20:03 Pressure (ins/psv/peep) NA 06/22/16 20:03 Critical Value RPINEIRA 06/22/16 20:03 Sodium 133 mEq/L (136-145) L 07/28/16 05:30 Potassium 3.5 mEq/L (3.5-5.1) 07/28/16 05:30 Chloride 95 mEq/L (98-107) L 07/28/16 05:30 Carbon Dioxide 27.6 mEq/L (21.0-31.0) 07/28/16 05:30 Anion Gap 13.9 (7.0-16.0) 07/28/16 05:30 BUN 46 mg/dL (7-25) H 07/28/16 05:30 Creatinine 4.0 mg/dL (0.7-1.3) H 07/28/16 05:30 Est GFR ( Amer) 20.6 ml/min (>90) 07/28/16 05:30 Est GFR (Non-Af Amer) 17.0 ml/min 07/28/16 05:30 BUN/Creatinine Ratio 11.5 07/28/16 05:30 Glucose 99 mg/dL (70-105) 07/28/16 05:30 Calcium 9.2 mg/dL (8.6-10.3) 07/28/16 05:30 Phosphorus 5.5 mg/dL (2.5-5.0) H 07/19/16 09:50 Magnesium 2.0 mg/dL (1.9-2.7) 07/07/16 06:00 Iron 42 ug/dL (38-169) 06/28/16 04:38 TIBC 269 ug/dL (250-450) 06/28/16 04:38 Iron Saturation 16 % (15-55) 06/28/16 04:38 Unsaturated IBC 227 ug/dL (111-343) 06/28/16 04:38 Ferritin 150 ng/mL (30-400) 06/26/16 08:30 Total Bilirubin 0.8 mg/dL (0.3-1.0) 07/28/16 05:30 Direct Bilirubin 0.70 mg/dL (0.0-0.2) H 06/28/16 04:38 GGTP 14 IU/L (0-65) 06/28/16 04:38 AST 52 U/L (13-39) H 07/28/16 05:30 ALT 30 U/L (7-52) 07/28/16 05:30 Alkaline Phosphatase 38 U/L (34-104) 07/28/16 05:30 Ammonia 105 umol/L (16-53) H 07/02/16 06:40 Troponin I < 0.01 ng/mL (0.01-0.05) L 06/22/16 19:33 B-Natriuretic Peptide 668.0 pg/mL (5.0-100.0) H 06/22/16 19:33 Total Protein 7.8 gm/dL (6.0-8.3) 07/28/16 05:30 Albumin 2.7 gm/dL (4.2-5.5) L 07/28/16 05:30 Globulin 5.1 gm/dL 07/28/16 05:30 Albumin/Globulin Ratio 0.5 (1.0-1.8) L 07/28/16 05:30 Amylase 28 U/L (29-103) L 07/02/16 06:40 Lipase 31 U/L (11-82) 07/02/16 06:40 Urine Source CLEAN C 06/29/16 05:55 Urine Color YELLOW 06/29/16 05:55 Urine Clarity HAZY (CLEAR) 06/29/16 05:55 Urine pH 5.5 06/29/16 05:55 Ur Specific [place] 1.015 (1.005-1.030) 06/29/16 05:55 Urine Protein 30 mg/dL (NEGATIVE) H 06/29/16 05:55 Urine Glucose (UA) NEGATIVE mg/dL (NEGATIVE) 06/29/16 05:55 Urine Ketones NEGATIVE mg/dL (NEGATIVE) 06/29/16 05:55 Urine Blood NEGATIVE (NEGATIVE) 06/29/16 05:55 Urine Nitrate NEGATIVE (NEGATIVE) 06/29/16 05:55 Urine Bilirubin NEGATIVE (NEGATIVE) 06/29/16 05:55 Urine Urobilinogen 0.2 E.U./dL (0.2 - 1.0) 06/29/16 05:55 Ur Leukocyte Esterase TRACE (NEGATIVE) H 06/29/16 05:55 Urine RBC 0-2 /hpf (0-5) H 06/29/16 05:55 Urine WBC 6-10 /hpf (0-5) H 06/29/16 05:55 Ur Epithelial Cells FEW /lpf (FEW) 06/29/16 05:55 Urine Bacteria MANY /hpf (NONE SEEN) 06/29/16 05:55 Stool Occult Blood POSITIVE (NEGATIVE) 06/24/16 16:00 Random Vancomycin 13.4 ug/mL (5.0-40.0) 06/28/16 04:38 RPR NONREACTIVE (NONREACTIVE) 06/22/16 19:33 Hepatitis A IgM Ab Negative (Negative) 06/29/16 05:49 Hep Bs Antigen Negative (Negative) 06/29/16 05:49 Hep B Core IgM Ab Negative (Negative) 06/29/16 05:49 Hepatitis C Antibody >11.0 s/co ratio (0.0-0.9) H 06/29/16 05:49 Blood Type A POSITIVE 07/25/16 00:45 Antibody Screen NEGATIVE 07/25/16 00:45 Crossmatch See Detail 07/25/16 00:45 - Physical Exam Vitals and I&O: Vital Signs Temp 99.4 F 07/28/16 11:35 Pulse 138 07/28/16 11:35 Resp 19 07/28/16 11:35 BP 110/67 07/28/16 11:35 Pulse Ox 96 07/28/16 11:35 Intake & Output 07/27/16 07/28/16 07/28/16 18:59 06:59 18:59 Intake Total 1060 Output Total 1200 Balance -140 Intake: Oral 1060 Output: Urine 1200 Other: # Bowel Movements 1 Active Medications: Current Medications Albuterol/Ipratropium (Duoneb Neb) 3 ml HHN Q2HR PRN PRN Reason: Shortness of Breath or Wheeze Stop: 09/08/16 09:51 Aspirin (Ecotrin) 325 mg PO DAILY [facility] Stop: 09/03/16 09:14 Last Admin: 07/28/16 08:32 Dose: 325 mg Calamine/Phenol (Calmoseptine) 1 appl TP QID PRN PRN Reason: Skin Irritation Stop: 09/08/16 18:33 Last Admin: 07/20/16 09:09 Dose: 1 appl Calamine/Phenol (Calmoseptine) 1 appl TP QID [facility] Stop: 09/08/16 20:59 Last Admin: 07/28/16 13:52 Dose: Not Given Diphenhydramine HCl (Benadryl 50 Mg/Ml) 50 mg IM Q8HR PRN PRN Reason: Agitation Stop: 08/25/16 12:10 Docusate Sodium (Colace) 100 mg PO Q12HR [facility] Stop: 09/16/16 08:59 Last Admin: 07/28/16 08:32 Dose: 100 mg Epoetin [place] (Epogen) 10,000 units SUBQ TuThSa [facility] Stop: 09/19/16 13:44 Last Admin: 07/26/16 15:34 Dose: Not Given Haloperidol Lactate (Haldol) 5 mg IM Q8HR PRN PRN Reason: Agitation Stop: 08/25/16 12:10 Lactic Acid (Lac-Hydrin Cream) 1 appl TP BID [facility] Stop: 09/12/16 08:59 Last Admin: 07/28/16 08:33 Dose: 1 appl Lactulose (Cephulac) 20 gm PO Q8HR [facility] Stop: 09/16/16 04:59 Last Admin: 07/28/16 13:52 Dose: Not Given Miscellaneous (Clinical Monitoring) 1 ea MC PRN PRN PRN Reason: RENAL DOSING Stop: 08/31/16 16:27 Morphine Sulfate (Morphine) 2 mg IV Q4H PRN PRN Reason: SEVERE PAIN Stop: 09/23/16 12:59 Last Admin: 07/28/16 13:59 Dose: 2 mg Morphine Sulfate (Morphine) 1 mg IVP Q4H PRN PRN Reason: MODERATE PAIN Stop: 09/23/16 13:03 Last Admin: 07/26/16 11:16 Dose: 1 mg Quetiapine Fumarate (Seroquel) 100 mg PO TID [facility] PRN Reason: Protocol Stop: 08/26/16 08:59 Last Admin: 07/28/16 13:52 Dose: Not Given General: No acute distress HEENT: Atraumatic, Mucous membr. moist/pink Neck: Supple, +2 carotid pulse wo bruit Cardiovascular: Regular rate, Normal S1, Normal S2 Lungs: Other (few rhonchi) Abdomen: Bowel sounds, Soft Extremities: Edema ((+) 3 bipedal edema) Neurological: Sensation intact Skin: no Rash - Procedures Procedures: Procedures Procedure Code Date ARTERY-VEIN NONAUTOGRAFT 08890 06/22/16 BLOOD TRANSFUSION SERVICE 15892 06/22/16 BYPASS L BRACH ART TO UP ARM VEIN W NONAUT SUB, OPEN [id number] 06/22/16 FLUOROSCOPY OF SUP VENA CAVA USING [facility] CONTRAST, GUIDANCE [id number] 06/22/16 INSERTION OF INFUSION DEV INTO SUP VENA CAVA, PERC APPROACH [id number] 06/22/16 PLACE CATHETER IN VEIN 39610 06/22/16 TRANSFUSE NONAUT RED BLOOD CELLS IN PERIPH VEIN, PERC [id number] 06/22/16 Assessment/Plan - Problem List Patient Problems: All Active Problems MEDICAL EVALUATION PER DR FRY (Acute) - Assessment Assessment: esrd on hd persistent cellulitis b/l lower ext acute on chronic anemia possible gi bleed ohs chronic a. fib hypothyroid anasarca functional quadriplegia chronic venous stasis dermatitis acute decomp psychosis hypokalemia, hypomagnesemia s/p left avg - Plan Plan: Lab - Result Diagrams 07/19/16 09:50 Lab - Result Diagrams 07/22/16 05:21 Lab - Result Diagrams 07/24/16 05:00 Lab - Result Diagrams 07/28/16 05:30 07/28/16 05:30 07/24/16 05:00 07/20/16 05:50 07/19/16 09:50 latest hgb/hct were 7.6/23 transfused 1 U PRBC yesterday HD in am placement in progress Lab - Result Diagrams 07/19/16 09:50 07/20/16 05:50 Lab - Result Diagrams 07/21/16 06:16 07/20/16 05:50 Lab - Result Diagrams 07/26/16 11:05 07/24/16 05:00
[2016-07-28] MEDS: Epoetin Alfa 20000 Units/mL Vial SUBQ SCH (15:32)
[2016-07-29] MEDS: Lactulose 10 Gm/15 mL 30mL UDC PO SCH ×4 (05:03→22:11)
[2016-07-29] MEDS: Morphine Sulfate 2 mg/mL 1mL Syr IV PRN ×3 (06:06→21:15)
[2016-07-29 06:07] LABS: MEAN CELL VOLUME 87.2 fl (80-99); MEAN CORPUSCULAR HEMOGLOBIN 29.2 pg (26.0-30.0); MEAN CORPUSCULAR HGB CONC 33.5 pg (28.0-36.0); MEAN PLATELET VOLUME 8.3 fl; PLATELET COUNT 140 Th/cmm (150-400); RED BLOOD COUNT 2.66 Mil/cmm (4.30-5.70); RED CELL DISTRIBUTION WIDTH 15.3 % (11.5-20.0); WHITE BLOOD COUNT 5.5 Th/cmm (4.8-10.8)
[2016-07-29 06:16] LABS: HEMATOCRIT 23.2 % (39.0-49.0); HEMOGLOBIN 7.8 gm/dL (13.2-17.3)
[2016-07-29 09:02] LABS: ANISOCYTOSIS 1+; EOSINOPHIL 10 % (0-5); NEUTROPHILS 67 % (40-80); PLATELET ESTIMATE DECREASED PLATELETS (NORMAL); PLATELET MORPHOLOGY NORMAL (NORMAL); TOTAL CELLS COUNTED 100
--- NOTE | 2016-07-29 09:05 | General Progress Note ---
Subjective - Review of Systems Subjective: renal notes noted Objective - Results Result Diagrams: 07/29/16 05:55 07/28/16 05:30 Recent Labs: Laboratory Last Values WBC 5.5 Th/cmm (4.8-10.8) 07/29/16 05:55 RBC 2.66 Mil/cmm (4.30-5.70) L 07/29/16 05:55 Hgb 7.8 gm/dL (13.2-17.3) L* 07/29/16 05:55 Hct 23.2 % (39.0-49.0) L* 07/29/16 05:55 MCV 87.2 fl (80-99) 07/29/16 05:55 MCH 29.2 pg (26.0-30.0) 07/29/16 05:55 MCHC Differential 33.5 pg (28.0-36.0) 07/29/16 05:55 RDW 15.3 % (11.5-20.0) 07/29/16 05:55 Plt Count 140 Th/cmm (150-400) L 07/29/16 05:55 MPV 8.3 fl 07/29/16 05:55 Neutrophils % 56.8 % (40.0-80.0) 07/07/16 06:00 Band Neutrophils % 1 % (0-10) 07/28/16 05:30 Lymphocytes % 18.4 % (20.0-50.0) L 07/07/16 06:00 Monocytes % 13.8 % (2.0-10.0) H 07/07/16 06:00 Eosinophils % 11.0 % (0.0-5.0) H 07/07/16 06:00 Basophils % 0.0 % (0.0-2.0) 07/07/16 06:00 Neutrophils (Manual) 67 % (40-80) 07/29/16 05:55 Lymphocytes 16 % (20-50) L 07/29/16 05:55 Monocytes 7 % (2-10) 07/29/16 05:55 Eosinophils 10 % (0-5) H 07/29/16 05:55 Basophils 2 % (0-3) 07/26/16 11:05 Myelocytes 1 % 07/14/16 16:00 Hypochromia 1+ 07/20/16 23:30 Platelet Estimate DECREASED PLATELETS (NORMAL) 07/29/16 05:55 Platelet Morphology NORMAL (NORMAL) 07/29/16 05:55 Polychromasia 1+ 07/20/16 23:30 Anisocytosis 1+ 07/29/16 05:55 Microcytosis 1+ 07/14/16 16:00 RBC Morph Micro Appear ABNORMAL (NORMAL) 07/29/16 05:55 PT 12.7 SECONDS (9.5-11.5) H 07/01/16 06:57 INR 1.26 (0.5-1.4) 07/01/16 06:57 PTT (Actin FS) 28.3 SECONDS (26.0-38.0) 06/28/16 04:38 Specimen Source art 06/22/16 20:03 Sample Site Right Radial 06/22/16 20:03 pH 7.49 (7.35-7.45) H 06/22/16 20:03 pCO2 34.0 mmHg (35.0-45.0) L 06/22/16 20:03 pO2 97.0 mmHg (80.0-100.0) 06/22/16 20:03 HCO3 25.9 mmol/L (20.0-26.0) 06/22/16 20:03 Base Excess 2.8 mmol/L (-3.0-3.0) 06/22/16 20:03 O2 Saturation 98.0 % (92.0-100.0) 06/22/16 20:03 Estuardo Test P 06/22/16 20:03 Vent Rate NA 06/22/16 20:03 Inspired O2 21 06/22/16 20:03 Tidal Volume NA 06/22/16 20:03 PEEP NA 06/22/16 20:03 Pressure (ins/psv/peep) NA 06/22/16 20:03 Critical Value RPINEIRA 06/22/16 20:03 Sodium 133 mEq/L (136-145) L 07/28/16 05:30 Potassium 3.5 mEq/L (3.5-5.1) 07/28/16 05:30 Chloride 95 mEq/L (98-107) L 07/28/16 05:30 Carbon Dioxide 27.6 mEq/L (21.0-31.0) 07/28/16 05:30 Anion Gap 13.9 (7.0-16.0) 07/28/16 05:30 BUN 46 mg/dL (7-25) H 07/28/16 05:30 Creatinine 4.0 mg/dL (0.7-1.3) H 07/28/16 05:30 Est GFR ( Amer) 20.6 ml/min (>90) 07/28/16 05:30 Est GFR (Non-Af Amer) 17.0 ml/min 07/28/16 05:30 BUN/Creatinine Ratio 11.5 07/28/16 05:30 Glucose 99 mg/dL (70-105) 07/28/16 05:30 Calcium 9.2 mg/dL (8.6-10.3) 07/28/16 05:30 Phosphorus 5.5 mg/dL (2.5-5.0) H 07/19/16 09:50 Magnesium 2.0 mg/dL (1.9-2.7) 07/07/16 06:00 Iron 42 ug/dL (38-169) 06/28/16 04:38 TIBC 269 ug/dL (250-450) 06/28/16 04:38 Iron Saturation 16 % (15-55) 06/28/16 04:38 Unsaturated IBC 227 ug/dL (111-343) 06/28/16 04:38 Ferritin 150 ng/mL (30-400) 06/26/16 08:30 Total Bilirubin 0.8 mg/dL (0.3-1.0) 07/28/16 05:30 Direct Bilirubin 0.70 mg/dL (0.0-0.2) H 06/28/16 04:38 GGTP 14 IU/L (0-65) 06/28/16 04:38 AST 52 U/L (13-39) H 07/28/16 05:30 ALT 30 U/L (7-52) 07/28/16 05:30 Alkaline Phosphatase 38 U/L (34-104) 07/28/16 05:30 Ammonia 105 umol/L (16-53) H 07/02/16 06:40 Troponin I < 0.01 ng/mL (0.01-0.05) L 06/22/16 19:33 B-Natriuretic Peptide 668.0 pg/mL (5.0-100.0) H 06/22/16 19:33 Total Protein 7.8 gm/dL (6.0-8.3) 07/28/16 05:30 Albumin 2.7 gm/dL (4.2-5.5) L 07/28/16 05:30 Globulin 5.1 gm/dL 07/28/16 05:30 Albumin/Globulin Ratio 0.5 (1.0-1.8) L 07/28/16 05:30 Amylase 28 U/L (29-103) L 07/02/16 06:40 Lipase 31 U/L (11-82) 07/02/16 06:40 Urine Source CLEAN C 06/29/16 05:55 Urine Color YELLOW 06/29/16 05:55 Urine Clarity HAZY (CLEAR) 06/29/16 05:55 Urine pH 5.5 06/29/16 05:55 Ur Specific [place] 1.015 (1.005-1.030) 06/29/16 05:55 Urine Protein 30 mg/dL (NEGATIVE) H 06/29/16 05:55 Urine Glucose (UA) NEGATIVE mg/dL (NEGATIVE) 06/29/16 05:55 Urine Ketones NEGATIVE mg/dL (NEGATIVE) 06/29/16 05:55 Urine Blood NEGATIVE (NEGATIVE) 06/29/16 05:55 Urine Nitrate NEGATIVE (NEGATIVE) 06/29/16 05:55 Urine Bilirubin NEGATIVE (NEGATIVE) 06/29/16 05:55 Urine Urobilinogen 0.2 E.U./dL (0.2 - 1.0) 06/29/16 05:55 Ur Leukocyte Esterase TRACE (NEGATIVE) H 06/29/16 05:55 Urine RBC 0-2 /hpf (0-5) H 06/29/16 05:55 Urine WBC 6-10 /hpf (0-5) H 06/29/16 05:55 Ur Epithelial Cells FEW /lpf (FEW) 06/29/16 05:55 Urine Bacteria MANY /hpf (NONE SEEN) 06/29/16 05:55 Stool Occult Blood POSITIVE (NEGATIVE) 06/24/16 16:00 Random Vancomycin 13.4 ug/mL (5.0-40.0) 06/28/16 04:38 RPR NONREACTIVE (NONREACTIVE) 06/22/16 19:33 Hepatitis A IgM Ab Negative (Negative) 06/29/16 05:49 Hep Bs Antigen Negative (Negative) 06/29/16 05:49 Hep B Core IgM Ab Negative (Negative) 06/29/16 05:49 Hepatitis C Antibody >11.0 s/co ratio (0.0-0.9) H 06/29/16 05:49 Blood Type A POSITIVE 07/25/16 00:45 Antibody Screen NEGATIVE 07/25/16 00:45 Crossmatch See Detail 07/25/16 00:45 - Physical Exam Vitals and I&O: Vital Signs Temp 98.8 F 07/29/16 08:00 Pulse 71 07/29/16 08:00 Resp 18 07/29/16 08:00 BP 117/74 07/29/16 08:00 Pulse Ox 91 07/29/16 08:00 Intake & Output 07/28/16 07/29/16 07/29/16 17:59 06:59 18:59 Intake Total Output Total Balance Intake: Oral Output: Urine Other: # Voids # Bowel Movements Active Medications: Current Medications Albuterol/Ipratropium (Duoneb Neb) 3 ml HHN Q2HR PRN PRN Reason: Shortness of Breath or Wheeze Stop: 09/08/16 09:51 Aspirin (Ecotrin) 325 mg PO DAILY [facility] Stop: 09/03/16 09:14 Last Admin: 07/28/16 08:32 Dose: 325 mg Calamine/Phenol (Calmoseptine) 1 appl TP QID PRN PRN Reason: Skin Irritation Stop: 09/08/16 18:33 Last Admin: 07/20/16 09:09 Dose: 1 appl Calamine/Phenol (Calmoseptine) 1 appl TP QID [facility] Stop: 09/08/16 20:59 Last Admin: 07/28/16 20:51 Dose: Not Given Diphenhydramine HCl (Benadryl 50 Mg/Ml) 50 mg IM Q8HR PRN PRN Reason: Agitation Stop: 08/25/16 12:10 Docusate Sodium (Colace) 100 mg PO Q12HR [facility] Stop: 09/16/16 08:59 Last Admin: 07/28/16 20:39 Dose: 100 mg Haloperidol Lactate (Haldol) 5 mg IM Q8HR PRN PRN Reason: Agitation Stop: 08/25/16 12:10 Lactic Acid (Lac-Hydrin Cream) 1 appl TP BID [facility] Stop: 09/12/16 08:59 Last Admin: 07/28/16 16:45 Dose: Not Given Lactulose (Cephulac) 20 gm PO Q8HR [facility] Stop: 09/16/16 04:59 Last Admin: 07/29/16 05:03 Dose: Not Given Miscellaneous (Clinical Monitoring) 1 ea MC PRN PRN PRN Reason: RENAL DOSING Stop: 08/31/16 16:27 Morphine Sulfate (Morphine) 2 mg IV Q4H PRN PRN Reason: SEVERE PAIN Stop: 09/23/16 12:59 Last Admin: 07/29/16 06:06 Dose: 2 mg Morphine Sulfate (Morphine) 1 mg IVP Q4H PRN PRN Reason: MODERATE PAIN Stop: 09/23/16 13:03 Last Admin: 07/26/16 11:16 Dose: 1 mg Quetiapine Fumarate (Seroquel) 100 mg PO TID [facility] PRN Reason: Protocol Stop: 08/26/16 08:59 Last Admin: 07/28/16 20:51 Dose: Not Given - Procedures Procedures: Procedures Procedure Code Date ARTERY-VEIN NONAUTOGRAFT 61724 06/22/16 BLOOD TRANSFUSION SERVICE 71183 06/22/16 BYPASS L BRACH ART TO UP ARM VEIN W NONAUT SUB, OPEN [id number] 06/22/16 FLUOROSCOPY OF SUP VENA CAVA USING [facility] CONTRAST, GUIDANCE [id number] 06/22/16 INSERTION OF INFUSION DEV INTO SUP VENA CAVA, PERC APPROACH [id number] 06/22/[address] PL[address] CATHETER IN VEIN 04072 06/22/16 TRANSFUSE NONAUT RED BLOOD CELLS IN PERIPH VEIN, PERC [id number] 06/22/16 Assessment/Plan - Problem List Patient Problems: All Active Problems MEDICAL EVALUATION PER DR FRY (Acute) - Assessment Assessment: 1. Cellulitis of legs. 2. Lymphedema of legs. 3. CKD 5 on HD. 4. Morbid obesity. 5 anemia 6 gi bleed 7 psychosis - Plan Plan: ivabx follow up labs id consult awaiting placement
--- NOTE | 2016-07-29 13:19 | General Progress Note ---
Subjective - Review of Systems Service Date: 07/29/16 Subjective: sleeping, comfortable Objective - Results Result Diagrams: 07/29/16 05:55 07/28/16 05:30 Recent Labs: Laboratory Last Values WBC 5.5 Th/cmm (4.8-10.8) 07/29/16 05:55 RBC 2.66 Mil/cmm (4.30-5.70) L 07/29/16 05:55 Hgb 7.8 gm/dL (13.2-17.3) L* 07/29/16 05:55 Hct 23.2 % (39.0-49.0) L* 07/29/16 05:55 MCV 87.2 fl (80-99) 07/29/16 05:55 MCH 29.2 pg (26.0-30.0) 07/29/16 05:55 MCHC Differential 33.5 pg (28.0-36.0) 07/29/16 05:55 RDW 15.3 % (11.5-20.0) 07/29/16 05:55 Plt Count 140 Th/cmm (150-400) L 07/29/16 05:55 MPV 8.3 fl 07/29/16 05:55 Neutrophils % 56.8 % (40.0-80.0) 07/07/16 06:00 Band Neutrophils % 1 % (0-10) 07/28/16 05:30 Lymphocytes % 18.4 % (20.0-50.0) L 07/07/16 06:00 Monocytes % 13.8 % (2.0-10.0) H 07/07/16 06:00 Eosinophils % 11.0 % (0.0-5.0) H 07/07/16 06:00 Basophils % 0.0 % (0.0-2.0) 07/07/16 06:00 Neutrophils (Manual) 67 % (40-80) 07/29/16 05:55 Lymphocytes 16 % (20-50) L 07/29/16 05:55 Monocytes 7 % (2-10) 07/29/16 05:55 Eosinophils 10 % (0-5) H 07/29/16 05:55 Basophils 2 % (0-3) 07/26/16 11:05 Myelocytes 1 % 07/14/16 16:00 Hypochromia 1+ 03/03/17 23:30 Platelet Estimate DECREASED PLATELETS (NORMAL) 07/29/16 05:55 Platelet Morphology NORMAL (NORMAL) 07/29/16 05:55 Polychromasia 1+ 07/20/16 23:30 Anisocytosis 1+ 07/29/16 05:55 Microcytosis 1+ 07/14/16 16:00 RBC Morph Micro Appear ABNORMAL (NORMAL) 07/29/16 05:55 PT 12.7 SECONDS (9.5-11.5) H 07/01/16 06:57 INR 1.26 (0.5-1.4) 07/01/16 06:57 PTT (Actin FS) 28.3 SECONDS (26.0-38.0) 06/28/16 04:38 Specimen Source art 06/22/16 20:03 Sample Site Right Radial 06/22/16 20:03 pH 7.49 (7.35-7.45) H 06/22/16 20:03 pCO2 34.0 mmHg (35.0-45.0) L 06/22/16 20:03 pO2 97.0 mmHg (80.0-100.0) 06/22/16 20:03 HCO3 25.9 mmol/L (20.0-26.0) 06/22/16 20:03 Base Excess 2.8 mmol/L (-3.0-3.0) 06/22/16 20:03 O2 Saturation 98.0 % (92.0-100.0) 06/22/16 20:03 Estuardo Test P 06/22/16 20:03 Vent Rate NA 06/22/16 20:03 Inspired O2 21 06/22/16 20:03 Tidal Volume NA 06/22/16 20:03 PEEP NA 06/22/16 20:03 Pressure (ins/psv/peep) NA 06/22/16 20:03 Critical Value RPINEIRA 06/22/16 20:03 Sodium 133 mEq/L (136-145) L 07/28/16 05:30 Potassium 3.5 mEq/L (3.5-5.1) 07/28/16 05:30 Chloride 95 mEq/L (98-107) L 07/28/16 05:30 Carbon Dioxide 27.6 mEq/L (21.0-31.0) 07/28/16 05:30 Anion Gap 13.9 (7.0-16.0) 07/28/16 05:30 BUN 46 mg/dL (7-25) H 07/28/16 05:30 Creatinine 4.0 mg/dL (0.7-1.3) H 07/28/16 05:30 Est GFR ( Amer) 20.6 ml/min (>90) 07/28/16 05:30 Est GFR (Non-Af Amer) 17.0 ml/min 07/28/16 05:30 BUN/Creatinine Ratio 11.5 07/28/16 05:30 Glucose 99 mg/dL (70-105) 07/28/16 05:30 Calcium 9.2 mg/dL (8.6-10.3) 07/28/16 05:30 Phosphorus 5.5 mg/dL (2.5-5.0) H 07/19/16 09:50 Magnesium 2.0 mg/dL (1.9-2.7) 07/07/16 06:00 Iron 42 ug/dL (38-169) 06/28/16 04:38 TIBC 269 ug/dL (250-450) 06/28/16 04:38 Iron Saturation 16 % (15-55) 06/28/16 04:38 Unsaturated IBC 227 ug/dL (111-343) 06/28/16 04:38 Ferritin 150 ng/mL (30-400) 06/26/16 08:30 Total Bilirubin 0.8 mg/dL (0.3-1.0) 07/28/16 05:30 Direct Bilirubin 0.70 mg/dL (0.0-0.2) H 06/28/16 04:38 GGTP 14 IU/L (0-65) 06/28/16 04:38 AST 52 U/L (13-39) H 07/28/16 05:30 ALT 30 U/L (7-52) 07/28/16 05:30 Alkaline Phosphatase 38 U/L (34-104) 07/28/16 05:30 Ammonia 105 umol/L (16-53) H 07/02/16 06:40 Troponin I < 0.01 ng/mL (0.01-0.05) L 06/22/16 19:33 B-Natriuretic Peptide 668.0 pg/mL (5.0-100.0) H 06/22/16 19:33 Total Protein 7.8 gm/dL (6.0-8.3) 07/28/16 05:30 Albumin 2.7 gm/dL (4.2-5.5) L 07/28/16 05:30 Globulin 5.1 gm/dL 07/28/16 05:30 Albumin/Globulin Ratio 0.5 (1.0-1.8) L 07/28/16 05:30 Amylase 28 U/L (29-103) L 07/02/16 06:40 Lipase 31 U/L (11-82) 07/02/16 06:40 Urine Source CLEAN C 06/29/16 05:55 Urine Color YELLOW 06/29/16 05:55 Urine Clarity HAZY (CLEAR) 06/29/16 05:55 Urine pH 5.5 06/29/16 05:55 Ur Specific [place] 1.015 (1.005-1.030) 06/29/16 05:55 Urine Protein 30 mg/dL (NEGATIVE) H 06/29/16 05:55 Urine Glucose (UA) NEGATIVE mg/dL (NEGATIVE) 06/29/16 05:55 Urine Ketones NEGATIVE mg/dL (NEGATIVE) 06/29/16 05:55 Urine Blood NEGATIVE (NEGATIVE) 06/29/16 05:55 Urine Nitrate NEGATIVE (NEGATIVE) 06/29/16 05:55 Urine Bilirubin NEGATIVE (NEGATIVE) 06/29/16 05:55 Urine Urobilinogen 0.2 E.U./dL (0.2 - 1.0) 06/29/16 05:55 Ur Leukocyte Esterase TRACE (NEGATIVE) H 06/29/16 05:55 Urine RBC 0-2 /hpf (0-5) H 06/29/16 05:55 Urine WBC 6-10 /hpf (0-5) H 06/29/16 05:55 Ur Epithelial Cells FEW /lpf (FEW) 06/29/16 05:55 Urine Bacteria MANY /hpf (NONE SEEN) 06/29/16 05:55 Stool Occult Blood POSITIVE (NEGATIVE) 06/24/16 16:00 Random Vancomycin 13.4 ug/mL (5.0-40.0) 06/28/16 04:38 RPR NONREACTIVE (NONREACTIVE) 06/22/16 19:33 Hepatitis A IgM Ab Negative (Negative) 06/29/16 05:49 Hep Bs Antigen Negative (Negative) 06/29/16 05:49 Hep B Core IgM Ab Negative (Negative) 06/29/16 05:49 Hepatitis C Antibody >11.0 s/co ratio (0.0-0.9) H 06/29/16 05:49 Blood Type A POSITIVE 07/25/16 00:45 Antibody Screen NEGATIVE 07/25/16 00:45 Crossmatch See Detail 07/25/16 00:45 - Physical Exam Vitals and I&O: Vital Signs Temp 98.8 F 07/29/16 08:00 Pulse 71 07/29/16 08:00 Resp 18 07/29/16 08:00 BP 117/74 07/29/16 08:00 Pulse Ox 91 07/29/16 08:00 Intake & Output 07/28/16 07/29/16 07/29/16 17:59 06:59 18:59 Intake Total Output Total Balance Intake: Oral Output: Urine Other: # Voids # Bowel Movements Active Medications: Current Medications Albuterol/Ipratropium (Duoneb Neb) 3 ml HHN Q2HR PRN PRN Reason: Shortness of Breath or Wheeze Stop: 09/08/16 09:51 Aspirin (Ecotrin) 325 mg PO DAILY [facility] Stop: 09/03/16 09:14 Last Admin: 07/28/16 08:32 Dose: 325 mg Calamine/Phenol (Calmoseptine) 1 appl TP QID PRN PRN Reason: Skin Irritation Stop: 09/08/16 18:33 Last Admin: 07/20/16 09:09 Dose: 1 appl Calamine/Phenol (Calmoseptine) 1 appl TP QID [facility] Stop: 09/08/16 20:59 Last Admin: 07/28/16 20:51 Dose: Not Given Diphenhydramine HCl (Benadryl 50 Mg/Ml) 50 mg IM Q8HR PRN PRN Reason: Agitation Stop: 08/25/16 12:10 Docusate Sodium (Colace) 100 mg PO Q12HR [facility] Stop: 09/16/16 08:59 Last Admin: 07/28/16 20:39 Dose: 100 mg Haloperidol Lactate (Haldol) 5 mg IM Q8HR PRN PRN Reason: Agitation Stop: 08/25/16 12:10 Lactic Acid (Lac-Hydrin Cream) 1 appl TP BID [facility] Stop: 09/12/16 08:59 Last Admin: 07/28/16 16:45 Dose: Not Given Lactulose (Cephulac) 20 gm PO Q8HR [facility] Stop: 09/16/16 04:59 Last Admin: 07/29/16 05:03 Dose: Not Given Miscellaneous (Clinical Monitoring) 1 ea MC PRN PRN PRN Reason: RENAL DOSING Stop: 08/31/16 16:27 Morphine Sulfate (Morphine) 2 mg IV Q4H PRN PRN Reason: SEVERE PAIN Stop: 09/23/16 12:59 Last Admin: 07/29/16 06:06 Dose: 2 mg Morphine Sulfate (Morphine) 1 mg IVP Q4H PRN PRN Reason: MODERATE PAIN Stop: 09/23/16 13:03 Last Admin: 07/26/16 11:16 Dose: 1 mg Quetiapine Fumarate (Seroquel) 100 mg PO TID [facility]ISE PRN Reason: Protocol Stop: 08/26/16 08:59 Last Admin: 07/28/16 20:51 Dose: Not Given General: No acute distress HEENT: Atraumatic, Mucous membr. moist/pink Neck: Supple, +2 carotid pulse wo bruit Cardiovascular: Regular rate, Normal S1, Normal S2 Lungs: Clear to auscultation Abdomen: Bowel sounds, Soft Extremities: Edema ((+) 3 bipedal edema) Neurological: Sensation intact Skin: no Rash - Procedures Procedures: Procedures Procedure Code Date ARTERY-VEIN NONAUTOGRAFT 84473 06/22/16 BLOOD TRANSFUSION SERVICE 49777 06/22/16 BYPASS L BRACH ART TO UP ARM VEIN W NONAUT SUB, OPEN [id number] 06/22/16 FLUOROSCOPY OF SUP VENA CAVA USING [facility] CONTRAST, GUIDANCE [id number] 06/22/16 INSERTION OF INFUSION DEV INTO SUP VENA CAVA, PERC APPROACH [id number] 06/22/16 PLACE CATHETER IN VEIN 00364 06/22/16 TRANSFUSE NONAUT RED BLOOD CELLS IN PERIPH VEIN, PERC [id number] 06/22/16 Assessment/Plan - Problem List Patient Problems: All Active Problems MEDICAL EVALUATION PER DR FRY (Acute) - Assessment Assessment: esrd on hd persistent cellulitis b/l lower ext acute on chronic anemia possible gi bleed ohs chronic a. fib hypothyroid anasarca functional quadriplegia chronic venous stasis dermatitis acute decomp psychosis hypokalemia, hypomagnesemia s/p left avg - Plan Plan: Lab - Result Diagrams 07/19/16 09:50 Lab - Result Diagrams 07/22/16 05:21 Lab - Result Diagrams 07/24/16 05:00 Lab - Result Diagrams 07/28/16 05:30 07/28/16 05:30 07/24/16 05:00 07/20/16 05:50 07/19/16 09:50 latest hgb/hct were 7.8/23.2 transfused 1 U PRBC Saturday currently being dialyzed placement in progress Lab - Result Diagrams 07/19/16 09:50 07/20/16 05:50 Lab - Result Diagrams 07/21/16 06:16 07/20/16 05:50 Lab - Result Diagrams 07/26/16 11:05 07/24/16 05:00 Lab - Result Diagrams 07/29/16 05:55 07/28/16 05:30
[2016-07-29] MEDS: Aspirin 325 mg EC PO SCH (14:14)
[2016-07-29] MEDS: Menthol/Zinc Oxide Oint 113gm Tube TP SCH ×4 (14:16→22:11)
[2016-07-29] MEDS: Ammonium Lactate Cream 140 gm Tube TP SCH ×2 (14:16→17:47)
[2016-07-30] MEDS: Lactulose 10 Gm/15 mL 30mL UDC PO SCH ×3 (06:28→20:38)
[2016-07-30] MEDS: Morphine Sulfate 2 mg/mL 1mL Syr IV PRN ×3 (06:34→18:50)
[2016-07-30] MEDS: Aspirin 325 mg EC PO SCH (09:06)
[2016-07-30] MEDS: Menthol/Zinc Oxide Oint 113gm Tube TP SCH ×4 (09:07→20:38)
[2016-07-30] MEDS: Ammonium Lactate Cream 140 gm Tube TP SCH ×2 (09:07→17:21)
--- NOTE | 2016-07-30 10:34 | General Progress Note ---
Subjective - Review of Systems Service Date: 07/30/16 Subjective: renal notes noted no new complaints Objective - Results Result Diagrams: 07/29/16 05:55 07/28/16 05:30 Recent Labs: Laboratory Last Values WBC 5.5 Th/cmm (4.8-10.8) 07/29/16 05:55 RBC 2.66 Mil/cmm (4.30-5.70) L 07/29/16 05:55 Hgb 7.8 gm/dL (13.2-17.3) L* 07/29/16 05:55 Hct 23.2 % (39.0-49.0) L* 07/29/16 05:55 MCV 87.2 fl (80-99) 07/29/16 05:55 MCH 29.2 pg (26.0-30.0) 07/29/16 05:55 MCHC Differential 33.5 pg (28.0-36.0) 07/29/16 05:55 RDW 15.3 % (11.5-20.0) 07/29/16 05:55 Plt Count 140 Th/cmm (150-400) L 07/29/16 05:55 MPV 8.3 fl 07/29/16 05:55 Neutrophils % 56.8 % (40.0-80.0) 07/07/16 06:00 Band Neutrophils % 1 % (0-10) 07/28/16 05:30 Lymphocytes % 18.4 % (20.0-50.0) L 07/07/16 06:00 Monocytes % 13.8 % (2.0-10.0) H 07/07/16 06:00 Eosinophils % 11.0 % (0.0-5.0) H 07/07/16 06:00 Basophils % 0.0 % (0.0-2.0) 07/07/16 06:00 Neutrophils (Manual) 67 % (40-80) 07/29/16 05:55 Lymphocytes 16 % (20-50) L 07/29/16 05:55 Monocytes 7 % (2-10) 07/29/16 05:55 Eosinophils 10 % (0-5) H 07/29/16 05:55 Basophils 2 % (0-3) 07/26/16 11:05 Myelocytes 1 % 07/14/16 16:00 Hypochromia 1+ 07/20/16 23:30 Platelet Estimate DECREASED PLATELETS (NORMAL) 07/29/16 05:55 Platelet Morphology NORMAL (NORMAL) 07/29/16 05:55 Polychromasia 1+ 07/20/16 23:30 Anisocytosis 1+ 07/29/16 05:55 Microcytosis 1+ 07/14/16 16:00 RBC Morph Micro Appear ABNORMAL (NORMAL) 07/29/16 05:55 PT 12.7 SECONDS (9.5-11.5) H 07/01/16 06:57 INR 1.26 (0.5-1.4) 07/01/16 06:57 PTT (Actin FS) 28.3 SECONDS (26.0-38.0) 06/28/16 04:38 Specimen Source art 06/22/16 20:03 Sample Site Right Radial 06/22/16 20:03 pH 7.49 (7.35-7.45) H 06/22/16 20:03 pCO2 34.0 mmHg (35.0-45.0) L 06/22/16 20:03 pO2 97.0 mmHg (80.0-100.0) 06/22/16 20:03 HCO3 25.9 mmol/L (20.0-26.0) 06/22/16 20:03 Base Excess 2.8 mmol/L (-3.0-3.0) 06/22/16 20:03 O2 Saturation 98.0 % (92.0-100.0) 06/22/16 20:03 Estuardo Test P 06/22/16 20:03 Vent Rate NA 06/22/16 20:03 Inspired O2 21 06/22/16 20:03 Tidal Volume NA 06/22/16 20:03 PEEP NA 06/22/16 20:03 Pressure (ins/psv/peep) NA 06/22/16 20:03 Critical Value RPINEIRA 06/22/16 20:03 Sodium 133 mEq/L (136-145) L 07/28/16 05:30 Potassium 3.5 mEq/L (3.5-5.1) 07/28/16 05:30 Chloride 95 mEq/L (98-107) L 07/28/16 05:30 Carbon Dioxide 27.6 mEq/L (21.0-31.0) 07/28/16 05:30 Anion Gap 13.9 (7.0-16.0) 07/28/16 05:30 BUN 46 mg/dL (7-25) H 07/28/16 05:30 Creatinine 4.0 mg/dL (0.7-1.3) H 07/28/16 05:30 Est GFR ( Amer) 20.6 ml/min (>90) 07/28/16 05:30 Est GFR (Non-Af Amer) 17.0 ml/min 07/28/16 05:30 BUN/Creatinine Ratio 11.5 07/28/16 05:30 Glucose 99 mg/dL (70-105) 07/28/16 05:30 Calcium 9.2 mg/dL (8.6-10.3) 07/28/16 05:30 Phosphorus 5.5 mg/dL (2.5-5.0) H 07/19/16 09:50 Magnesium 2.0 mg/dL (1.9-2.7) 07/07/16 06:00 Iron 42 ug/dL (38-169) 06/28/16 04:38 TIBC 269 ug/dL (250-450) 06/28/16 04:38 Iron Saturation 16 % (15-55) 06/28/16 04:38 Unsaturated IBC 227 ug/dL (111-343) 06/28/16 04:38 Ferritin 150 ng/mL (30-400) 06/26/16 08:30 Total Bilirubin 0.8 mg/dL (0.3-1.0) 07/28/16 05:30 Direct Bilirubin 0.70 mg/dL (0.0-0.2) H 06/28/16 04:38 GGTP 14 IU/L (0-65) 06/28/16 04:38 AST 52 U/L (13-39) H 07/28/16 05:30 ALT 30 U/L (7-52) 07/28/16 05:30 Alkaline Phosphatase 38 U/L (34-104) 07/28/16 05:30 Ammonia 105 umol/L (16-53) H 07/02/16 06:40 Troponin I < 0.01 ng/mL (0.01-0.05) L 06/22/16 19:33 B-Natriuretic Peptide 668.0 pg/mL (5.0-100.0) H 06/22/16 19:33 Total Protein 7.8 gm/dL (6.0-8.3) 07/28/16 05:30 Albumin 2.7 gm/dL (4.2-5.5) L 07/28/16 05:30 Globulin 5.1 gm/dL 07/28/16 05:30 Albumin/Globulin Ratio 0.5 (1.0-1.8) L 07/28/16 05:30 Amylase 28 U/L (29-103) L 07/02/16 06:40 Lipase 31 U/L (11-82) 07/02/16 06:40 Urine Source CLEAN C 06/29/16 05:55 Urine Color YELLOW 06/29/16 05:55 Urine Clarity HAZY (CLEAR) 06/29/16 05:55 Urine pH 5.5 06/29/16 05:55 Ur Specific [place] 1.015 (1.005-1.030) 06/29/16 05:55 Urine Protein 30 mg/dL (NEGATIVE) H 06/29/16 05:55 Urine Glucose (UA) NEGATIVE mg/dL (NEGATIVE) 06/29/16 05:55 Urine Ketones NEGATIVE mg/dL (NEGATIVE) 06/29/16 05:55 Urine Blood NEGATIVE (NEGATIVE) 06/29/16 05:55 Urine Nitrate NEGATIVE (NEGATIVE) 06/29/16 05:55 Urine Bilirubin NEGATIVE (NEGATIVE) 06/29/16 05:55 Urine Urobilinogen 0.2 E.U./dL (0.2 - 1.0) 06/29/16 05:55 Ur Leukocyte Esterase TRACE (NEGATIVE) H 06/29/16 05:55 Urine RBC 0-2 /hpf (0-5) H 06/29/16 05:55 Urine WBC 6-10 /hpf (0-5) H 06/29/16 05:55 Ur Epithelial Cells FEW /lpf (FEW) 06/29/16 05:55 Urine Bacteria MANY /hpf (NONE SEEN) 06/29/16 05:55 Stool Occult Blood POSITIVE (NEGATIVE) 06/24/16 16:00 Random Vancomycin 13.4 ug/mL (5.0-40.0) 06/28/16 04:38 RPR NONREACTIVE (NONREACTIVE) 06/22/16 19:33 Hepatitis A IgM Ab Negative (Negative) 06/29/16 05:49 Hep Bs Antigen Negative (Negative) 06/29/16 05:49 Hep B Core IgM Ab Negative (Negative) 06/29/16 05:49 Hepatitis C Antibody >11.0 s/co ratio (0.0-0.9) H 06/29/16 05:49 Blood Type A POSITIVE 07/25/16 00:45 Antibody Screen NEGATIVE 07/25/16 00:45 Crossmatch See Detail 07/25/16 00:45 - Physical Exam Vitals and I&O: Vital Signs Temp 97.2 F 07/30/16 07:39 Pulse 112 07/30/16 07:39 Resp 19 07/30/16 07:39 BP 114/73 07/30/16 07:39 Pulse Ox 98 07/30/16 07:39 Intake & Output 07/29/16 07/30/16 07/30/16 18:59 06:59 18:59 Intake Total 1999 250 Balance 1999 250 Intake: Oral 1999 250 Other: # Voids 3 Active Medications: Current Medications Albuterol/Ipratropium (Duoneb Neb) 3 ml HHN Q2HR PRN PRN Reason: Shortness of Breath or Wheeze Stop: 09/08/16 09:51 Aspirin (Ecotrin) 325 mg PO DAILY [facility] Stop: 09/03/16 09:14 Last Admin: 07/30/16 09:06 Dose: 325 mg Calamine/Phenol (Calmoseptine) 1 appl TP QID PRN PRN Reason: Skin Irritation Stop: 09/08/16 18:33 Last Admin: 07/20/16 09:09 Dose: 1 appl Calamine/Phenol (Calmoseptine) 1 appl TP QID [facility] Stop: 09/08/16 20:59 Last Admin: 07/30/16 09:07 Dose: 1 appl Diphenhydramine HCl (Benadryl 50 Mg/Ml) 50 mg IM Q8HR PRN PRN Reason: Agitation Stop: 08/25/16 12:10 Docusate Sodium (Colace) 100 mg PO Q12HR [facility] Stop: 09/16/16 08:59 Last Admin: 07/30/16 09:06 Dose: 100 mg Haloperidol Lactate (Haldol) 5 mg IM Q8HR PRN PRN Reason: Agitation Stop: 08/25/16 12:10 Lactic Acid (Lac-Hydrin Cream) 1 appl TP BID [facility] Stop: 09/12/16 08:59 Last Admin: 07/30/16 09:07 Dose: 1 appl Lactulose (Cephulac) 20 gm PO Q8HR [facility] Stop: 09/16/16 04:59 Last Admin: 07/30/16 06:28 Dose: Not Given Miscellaneous (Clinical Monitoring) 1 ea MC PRN PRN PRN Reason: RENAL DOSING Stop: 08/31/16 16:27 Morphine Sulfate (Morphine) 2 mg IV Q4H PRN PRN Reason: SEVERE PAIN Stop: 09/23/16 12:59 Last Admin: 07/30/16 10:20 Dose: 2 mg Morphine Sulfate (Morphine) 1 mg IVP Q4H PRN PRN Reason: MODERATE PAIN Stop: 09/23/16 13:03 Last Admin: 07/26/16 11:16 Dose: 1 mg General: Alert HEENT: Atraumatic Neck: Supple Cardiovascular: Regular rate Lungs: Clear to auscultation Abdomen: Bowel sounds Extremities: Clubbing - Procedures Procedures: Procedures Procedure Code Date ARTERY-VEIN NONAUTOGRAFT 24608 06/22/16 BLOOD TRANSFUSION SERVICE 47679 06/22/16 BYPASS L BRACH ART TO UP ARM VEIN W NONAUT SUB, OPEN [id number] 06/22/16 FLUOROSCOPY OF SUP VENA CAVA USING [facility] CONTRAST, GUIDANCE [id number] 06/22/16 INSERTION OF INFUSION DEV INTO SUP VENA CAVA, PERC APPROACH [id number] 06/22/[address] PL[address] CATHETER IN VEIN 24544 06/22/16 TRANSFUSE NONAUT RED BLOOD CELLS IN PERIPH VEIN, PERC [id number] 06/22/16 Assessment/Plan - Problem List Patient Problems: All Active Problems ESRD (end stage renal disease) (Acute) ESRD (end stage renal disease) on dialysis (Acute) N18.6, Z99.2 ESRD (end stage renal disease) on dialysis (Acute) N18.6, Z99.2 MEDICAL EV[address]UATION PER DR FRY (Acute) - Assessment Assessment: 1. Cellulitis of legs. 2. Lymphedema of legs. 3. CKD 5 on HD. 4. Morbid obesity. 5 anemia 6 gi bleed 7 psychosis - Plan Plan: ivabx follow up labs id consult awaiting placement
--- NOTE | 2016-07-30 13:17 | General Progress Note ---
Subjective - Review of Systems Service Date: 07/30/16 Subjective: sleeping, comfortable, more cooperative today per nurse Objective - Results Result Diagrams: 07/29/16 05:55 07/28/16 05:30 Recent Labs: Laboratory Last Values WBC 5.5 Th/cmm (4.8-10.8) 07/29/16 05:55 RBC 2.66 Mil/cmm (4.30-5.70) L 07/29/16 05:55 Hgb 7.8 gm/dL (13.2-17.3) L* 07/29/16 05:55 Hct 23.2 % (39.0-49.0) L* 07/29/16 05:55 MCV 87.2 fl (80-99) 07/29/16 05:55 MCH 29.2 pg (26.0-30.0) 07/29/16 05:55 MCHC Differential 33.5 pg (28.0-36.0) 07/29/16 05:55 RDW 15.3 % (11.5-20.0) 07/29/16 05:55 Plt Count 140 Th/cmm (150-400) L 07/29/16 05:55 MPV 8.3 fl 07/29/16 05:55 Neutrophils % 56.8 % (40.0-80.0) 07/07/16 06:00 Band Neutrophils % 1 % (0-10) 07/28/16 05:30 Lymphocytes % 18.4 % (20.0-50.0) L 07/07/16 06:00 Monocytes % 13.8 % (2.0-10.0) H 07/07/16 06:00 Eosinophils % 11.0 % (0.0-5.0) H 07/07/16 06:00 Basophils % 0.0 % (0.0-2.0) 07/07/16 06:00 Neutrophils (Manual) 67 % (40-80) 07/29/16 05:55 Lymphocytes 16 % (20-50) L 07/29/16 05:55 Monocytes 7 % (2-10) 07/29/16 05:55 Eosinophils 10 % (0-5) H 07/29/16 05:55 Basophils 2 % (0-3) 07/26/16 11:05 Myelocytes 1 % 07/14/16 16:00 Hypochromia 1+ 07/20/16 23:30 Platelet Estimate DECREASED PLATELETS (NORMAL) 07/29/16 05:55 Platelet Morphology NORMAL (NORMAL) 07/29/16 05:55 Polychromasia 1+ 07/20/16 23:30 Anisocytosis 1+ 07/29/16 05:55 Microcytosis 1+ 07/14/16 16:00 RBC Morph Micro Appear ABNORMAL (NORMAL) 07/29/16 05:55 PT 12.7 SECONDS (9.5-11.5) H 07/01/16 06:57 INR 1.26 (0.5-1.4) 07/01/16 06:57 PTT (Actin FS) 28.3 SECONDS (26.0-38.0) 06/28/16 04:38 Specimen Source art 06/22/16 20:03 Sample Site Right Radial 06/22/16 20:03 pH 7.49 (7.35-7.45) H 06/22/16 20:03 pCO2 34.0 mmHg (35.0-45.0) L 06/22/16 20:03 pO2 97.0 mmHg (80.0-100.0) 06/22/16 20:03 HCO3 25.9 mmol/L (20.0-26.0) 06/22/16 20:03 Base Excess 2.8 mmol/L (-3.0-3.0) 06/22/16 20:03 O2 Saturation 98.0 % (92.0-100.0) 06/22/16 20:03 Estuardo Test P 06/22/16 20:03 Vent Rate NA 06/22/16 20:03 Inspired O2 21 06/22/16 20:03 Tidal Volume NA 06/22/16 20:03 PEEP NA 06/22/16 20:03 Pressure (ins/psv/peep) NA 06/22/16 20:03 Critical Value RPINEIRA 06/22/16 20:03 Sodium 133 mEq/L (136-145) L 07/28/16 05:30 Potassium 3.5 mEq/L (3.5-5.1) 07/28/16 05:30 Chloride 95 mEq/L (98-107) L 07/28/16 05:30 Carbon Dioxide 27.6 mEq/L (21.0-31.0) 07/28/16 05:30 Anion Gap 13.9 (7.0-16.0) 07/28/16 05:30 BUN 46 mg/dL (7-25) H 07/28/16 05:30 Creatinine 4.0 mg/dL (0.7-1.3) H 07/28/16 05:30 Est GFR ( Amer) 20.6 ml/min (>90) 07/28/16 05:30 Est GFR (Non-Af Amer) 17.0 ml/min 07/28/16 05:30 BUN/Creatinine Ratio 11.5 07/28/16 05:30 Glucose 99 mg/dL (70-105) 07/28/16 05:30 Calcium 9.2 mg/dL (8.6-10.3) 07/28/16 05:30 Phosphorus 5.5 mg/dL (2.5-5.0) H 07/19/16 09:50 Magnesium 2.0 mg/dL (1.9-2.7) 07/07/16 06:00 Iron 42 ug/dL (38-169) 06/28/16 04:38 TIBC 269 ug/dL (250-450) 06/28/16 04:38 Iron Saturation 16 % (15-55) 06/28/16 04:38 Unsaturated IBC 227 ug/dL (111-343) 06/28/16 04:38 Ferritin 150 ng/mL (30-400) 06/26/16 08:30 Total Bilirubin 0.8 mg/dL (0.3-1.0) 07/28/16 05:30 Direct Bilirubin 0.70 mg/dL (0.0-0.2) H 06/28/16 04:38 GGTP 14 IU/L (0-65) 06/28/16 04:38 AST 52 U/L (13-39) H 07/28/16 05:30 ALT 30 U/L (7-52) 07/28/16 05:30 Alkaline Phosphatase 38 U/L (34-104) 07/28/16 05:30 Ammonia 105 umol/L (16-53) H 07/02/16 06:40 Troponin I < 0.01 ng/mL (0.01-0.05) L 06/22/16 19:33 B-Natriuretic Peptide 668.0 pg/mL (5.0-100.0) H 06/22/16 19:33 Total Protein 7.8 gm/dL (6.0-8.3) 07/28/16 05:30 Albumin 2.7 gm/dL (4.2-5.5) L 07/28/16 05:30 Globulin 5.1 gm/dL 07/28/16 05:30 Albumin/Globulin Ratio 0.5 (1.0-1.8) L 07/28/16 05:30 Amylase 28 U/L (29-103) L 07/02/16 06:40 Lipase 31 U/L (11-82) 07/02/16 06:40 Urine Source CLEAN C 06/29/16 05:55 Urine Color YELLOW 06/29/16 05:55 Urine Clarity HAZY (CLEAR) 06/29/16 05:55 Urine pH 5.5 06/29/16 05:55 Ur Specific [place] 1.015 (1.005-1.030) 06/29/16 05:55 Urine Protein 30 mg/dL (NEGATIVE) H 06/29/16 05:55 Urine Glucose (UA) NEGATIVE mg/dL (NEGATIVE) 06/29/16 05:55 Urine Ketones NEGATIVE mg/dL (NEGATIVE) 06/29/16 05:55 Urine Blood NEGATIVE (NEGATIVE) 06/29/16 05:55 Urine Nitrate NEGATIVE (NEGATIVE) 06/29/16 05:55 Urine Bilirubin NEGATIVE (NEGATIVE) 06/29/16 05:55 Urine Urobilinogen 0.2 E.U./dL (0.2 - 1.0) 06/29/16 05:55 Ur Leukocyte Esterase TRACE (NEGATIVE) H 06/29/16 05:55 Urine RBC 0-2 /hpf (0-5) H 06/29/16 05:55 Urine WBC 6-10 /hpf (0-5) H 06/29/16 05:55 Ur Epithelial Cells FEW /lpf (FEW) 06/29/16 05:55 Urine Bacteria MANY /hpf (NONE SEEN) 06/29/16 05:55 Stool Occult Blood POSITIVE (NEGATIVE) 06/24/16 16:00 Random Vancomycin 13.4 ug/mL (5.0-40.0) 06/28/16 04:38 RPR NONREACTIVE (NONREACTIVE) 06/22/16 19:33 Hepatitis A IgM Ab Negative (Negative) 06/29/16 05:49 Hep Bs Antigen Negative (Negative) 06/29/16 05:49 Hep B Core IgM Ab Negative (Negative) 06/29/16 05:49 Hepatitis C Antibody >11.0 s/co ratio (0.0-0.9) H 06/29/16 05:49 Blood Type A POSITIVE 07/25/16 00:45 Antibody Screen NEGATIVE 07/25/16 00:45 Crossmatch See Detail 07/25/16 00:45 - Physical Exam Vitals and I&O: Vital Signs Temp 97.2 F 07/30/16 07:39 Pulse 112 07/30/16 07:39 Resp 19 07/30/16 07:39 BP 114/73 07/30/16 07:39 Pulse Ox 98 07/30/16 07:39 Intake & Output 07/29/16 07/30/16 07/30/16 18:59 06:59 18:59 Intake Total 1999 250 Balance 1999 250 Intake: Oral 1999 250 Other: # Voids 3 Active Medications: Current Medications Albuterol/Ipratropium (Duoneb Neb) 3 ml HHN Q2HR PRN PRN Reason: Shortness of Breath or Wheeze Stop: 09/08/16 09:51 Aspirin (Ecotrin) 325 mg PO DAILY MARQUISE Stop: 09/03/16 09:14 Last Admin: 07/30/16 09:06 Dose: 325 mg Calamine/Phenol (Calmoseptine) 1 appl TP QID PRN PRN Reason: Skin Irritation Stop: 09/08/16 18:33 Last Admin: 07/20/16 09:09 Dose: 1 appl Calamine/Phenol (Calmoseptine) 1 appl TP QID MARQUISE Stop: 09/08/16 20:59 Last Admin: 07/30/16 09:07 Dose: 1 appl Diphenhydramine HCl (Benadryl 50 Mg/Ml) 50 mg IM Q8HR PRN PRN Reason: Agitation Stop: 08/25/16 12:10 Docusate Sodium (Colace) 100 mg PO Q12HR MARQUISE Stop: 09/16/16 08:59 Last Admin: 07/30/16 09:06 Dose: 100 mg Haloperidol Lactate (Haldol) 5 mg IM Q8HR PRN PRN Reason: Agitation Stop: 08/25/16 12:10 Lactic Acid (Lac-Hydrin Cream) 1 appl TP BID MARQUISE Stop: 09/12/16 08:59 Last Admin: 07/30/16 09:07 Dose: 1 appl Lactulose (Cephulac) 20 gm PO Q8HR MARQUISE Stop: 09/16/16 04:59 Last Admin: 07/30/16 06:28 Dose: Not Given Miscellaneous (Clinical Monitoring) 1 ea MC PRN PRN PRN Reason: RENAL DOSING Stop: 08/31/16 16:27 Morphine Sulfate (Morphine) 2 mg IV Q4H PRN PRN Reason: SEVERE PAIN Stop: 09/23/16 12:59 Last Admin: 07/30/16 10:20 Dose: 2 mg Morphine Sulfate (Morphine) 1 mg IVP Q4H PRN PRN Reason: MODERATE PAIN Stop: 09/23/16 13:03 Last Admin: 07/26/16 11:16 Dose: 1 mg General: No acute distress HEENT: Atraumatic, Mucous membr. moist/pink Neck: Supple, +2 carotid pulse wo bruit Cardiovascular: Regular rate, Normal S1, Normal S2 Lungs: Other (decrease BS) Abdomen: Bowel sounds, Soft Extremities: Edema ((+) 3 bipedal edema) Neurological: Sensation intact Skin: no Rash - Procedures Procedures: Procedures Procedure Code Date ARTERY-VEIN NONAUTOGRAFT 07070 06/22/16 BLOOD TRANSFUSION SERVICE 03481 06/22/16 BYPASS L BRACH ART TO UP ARM VEIN W NONAUT SUB, OPEN [id number] 06/22/16 FLUOROSCOPY OF SUP VENA CAVA USING [facility] CONTRAST, GUIDANCE [id number] 06/22/16 INSERTION OF INFUSION DEV INTO SUP VENA CAVA, PERC APPROACH [id number] 06/22/16 PLACE CATHETER IN VEIN 60480 06/22/16 TRANSFUSE NONAUT RED BLOOD CELLS IN PERIPH VEIN, PERC [id number] 06/22/16 Assessment/Plan - Problem List Patient Problems: All Active Problems MEDICAL EVALUATION PER DR FRY (Acute) - Assessment Assessment: esrd on hd persistent cellulitis b/l lower ext acute on chronic anemia possible gi bleed ohs chronic a. fib hypothyroid anasarca functional quadriplegia chronic venous stasis dermatitis acute decomp psychosis hypokalemia, hypomagnesemia s/p left avg - Plan Plan: Lab - Result Diagrams 07/19/16 09:50 Lab - Result Diagrams 07/22/16 05:21 Lab - Result Diagrams 07/24/16 05:00 Lab - Result Diagrams 07/28/16 05:30 07/28/16 05:30 07/24/16 05:00 07/20/16 05:50 07/19/16 09:50 latest hgb/hct were 7.8/23.2 transfused 1 U PRBC Saturday schedule for HD in am placement in progress Lab - Result Diagrams 07/19/16 09:50 07/20/16 05:50 Lab - Result Diagrams 07/21/16 06:16 07/20/16 05:50 Lab - Result Diagrams 07/26/16 11:05 07/24/16 05:00 Lab - Result Diagrams 07/29/16 05:55 07/28/16 05:30
[2016-07-30] MEDS: Menthol/Zinc Oxide Oint 113gm Tube TP PRN ×2 (15:02→17:21)
[2016-07-31] MEDS: Morphine Sulfate 2 mg/mL 1mL Syr IV PRN ×2 (03:24→17:13)
[2016-07-31] MEDS: Lactulose 10 Gm/15 mL 30mL UDC PO SCH ×3 (05:13→22:33)
[2016-07-31] MEDS: Aspirin 325 mg EC PO SCH (08:29)
[2016-07-31] MEDS: Ammonium Lactate Cream 140 gm Tube TP SCH ×2 (08:29→17:15)
[2016-07-31] MEDS: Menthol/Zinc Oxide Oint 113gm Tube TP SCH ×4 (08:30→22:33)
--- NOTE | 2016-07-31 08:45 | General Progress Note ---
Subjective - Review of Systems Service Date: 07/31/16 Subjective: renal notes noted Objective - Results Result Diagrams: 07/29/16 05:55 07/28/16 05:30 Recent Labs: Laboratory Last Values WBC 5.5 Th/cmm (4.8-10.8) 07/29/16 05:55 RBC 2.66 Mil/cmm (4.30-5.70) L 07/29/16 05:55 Hgb 7.8 gm/dL (13.2-17.3) L* 07/29/16 05:55 Hct 23.2 % (39.0-49.0) L* 07/29/16 05:55 MCV 87.2 fl (80-99) 07/29/16 05:55 MCH 29.2 pg (26.0-30.0) 07/29/16 05:55 MCHC Differential 33.5 pg (28.0-36.0) 07/29/16 05:55 RDW 15.3 % (11.5-20.0) 07/29/16 05:55 Plt Count 140 Th/cmm (150-400) L 07/29/16 05:55 MPV 8.3 fl 07/29/16 05:55 Neutrophils % 56.8 % (40.0-80.0) 07/07/16 06:00 Band Neutrophils % 1 % (0-10) 07/28/16 05:30 Lymphocytes % 18.4 % (20.0-50.0) L 07/07/16 06:00 Monocytes % 13.8 % (2.0-10.0) H 07/07/16 06:00 Eosinophils % 11.0 % (0.0-5.0) H 07/07/16 06:00 Basophils % 0.0 % (0.0-2.0) 07/07/16 06:00 Neutrophils (Manual) 67 % (40-80) 07/29/16 05:55 Lymphocytes 16 % (20-50) L 07/29/16 05:55 Monocytes 7 % (2-10) 07/29/16 05:55 Eosinophils 10 % (0-5) H 07/29/16 05:55 Basophils 2 % (0-3) 07/26/16 11:05 Myelocytes 1 % 07/14/16 16:00 Hypochromia 1+ 03/03/17 23:30 Platelet Estimate DECREASED PLATELETS (NORMAL) 07/29/16 05:55 Platelet Morphology NORMAL (NORMAL) 07/29/16 05:55 Polychromasia 1+ 07/20/16 23:30 Anisocytosis 1+ 07/29/16 05:55 Microcytosis 1+ 07/14/16 16:00 RBC Morph Micro Appear ABNORMAL (NORMAL) 07/29/16 05:55 PT 12.7 SECONDS (9.5-11.5) H 07/01/16 06:57 INR 1.26 (0.5-1.4) 07/01/16 06:57 PTT (Actin FS) 28.3 SECONDS (26.0-38.0) 06/28/16 04:38 Specimen Source art 06/22/16 20:03 Sample Site Right Radial 06/22/16 20:03 pH 7.49 (7.35-7.45) H 06/22/16 20:03 pCO2 34.0 mmHg (35.0-45.0) L 06/22/16 20:03 pO2 97.0 mmHg (80.0-100.0) 06/22/16 20:03 HCO3 25.9 mmol/L (20.0-26.0) 06/22/16 20:03 Base Excess 2.8 mmol/L (-3.0-3.0) 06/22/16 20:03 O2 Saturation 98.0 % (92.0-100.0) 06/22/16 20:03 Estuardo Test P 06/22/16 20:03 Vent Rate NA 06/22/16 20:03 Inspired O2 21 06/22/16 20:03 Tidal Volume NA 06/22/16 20:03 PEEP NA 06/22/16 20:03 Pressure (ins/psv/peep) NA 06/22/16 20:03 Critical Value RPINEIRA 06/22/16 20:03 Sodium 133 mEq/L (136-145) L 07/28/16 05:30 Potassium 3.5 mEq/L (3.5-5.1) 07/28/16 05:30 Chloride 95 mEq/L (98-107) L 07/28/16 05:30 Carbon Dioxide 27.6 mEq/L (21.0-31.0) 07/28/16 05:30 Anion Gap 13.9 (7.0-16.0) 07/28/16 05:30 BUN 46 mg/dL (7-25) H 07/28/16 05:30 Creatinine 4.0 mg/dL (0.7-1.3) H 07/28/16 05:30 Est GFR ( Amer) 20.6 ml/min (>90) 07/28/16 05:30 Est GFR (Non-Af Amer) 17.0 ml/min 07/28/16 05:30 BUN/Creatinine Ratio 11.5 07/28/16 05:30 Glucose 99 mg/dL (70-105) 07/28/16 05:30 Calcium 9.2 mg/dL (8.6-10.3) 07/28/16 05:30 Phosphorus 5.5 mg/dL (2.5-5.0) H 07/19/16 09:50 Magnesium 2.0 mg/dL (1.9-2.7) 07/07/16 06:00 Iron 42 ug/dL (38-169) 06/28/16 04:38 TIBC 269 ug/dL (250-450) 06/28/16 04:38 Iron Saturation 16 % (15-55) 06/28/16 04:38 Unsaturated IBC 227 ug/dL (111-343) 06/28/16 04:38 Ferritin 150 ng/mL (30-400) 06/26/16 08:30 Total Bilirubin 0.8 mg/dL (0.3-1.0) 07/28/16 05:30 Direct Bilirubin 0.70 mg/dL (0.0-0.2) H 06/28/16 04:38 GGTP 14 IU/L (0-65) 06/28/16 04:38 AST 52 U/L (13-39) H 07/28/16 05:30 ALT 30 U/L (7-52) 07/28/16 05:30 Alkaline Phosphatase 38 U/L (34-104) 07/28/16 05:30 Ammonia 105 umol/L (16-53) H 07/02/16 06:40 Troponin I < 0.01 ng/mL (0.01-0.05) L 06/22/16 19:33 B-Natriuretic Peptide 668.0 pg/mL (5.0-100.0) H 06/22/16 19:33 Total Protein 7.8 gm/dL (6.0-8.3) 07/28/16 05:30 Albumin 2.7 gm/dL (4.2-5.5) L 07/28/16 05:30 Globulin 5.1 gm/dL 07/28/16 05:30 Albumin/Globulin Ratio 0.5 (1.0-1.8) L 07/28/16 05:30 Amylase 28 U/L (29-103) L 07/02/16 06:40 Lipase 31 U/L (11-82) 07/02/16 06:40 Urine Source CLEAN C 06/29/16 05:55 Urine Color YELLOW 06/29/16 05:55 Urine Clarity HAZY (CLEAR) 06/29/16 05:55 Urine pH 5.5 06/29/16 05:55 Ur Specific [place] 1.015 (1.005-1.030) 06/29/16 05:55 Urine Protein 30 mg/dL (NEGATIVE) H 06/29/16 05:55 Urine Glucose (UA) NEGATIVE mg/dL (NEGATIVE) 06/29/16 05:55 Urine Ketones NEGATIVE mg/dL (NEGATIVE) 06/29/16 05:55 Urine Blood NEGATIVE (NEGATIVE) 06/29/16 05:55 Urine Nitrate NEGATIVE (NEGATIVE) 06/29/16 05:55 Urine Bilirubin NEGATIVE (NEGATIVE) 06/29/16 05:55 Urine Urobilinogen 0.2 E.U./dL (0.2 - 1.0) 06/29/16 05:55 Ur Leukocyte Esterase TRACE (NEGATIVE) H 06/29/16 05:55 Urine RBC 0-2 /hpf (0-5) H 06/29/16 05:55 Urine WBC 6-10 /hpf (0-5) H 06/29/16 05:55 Ur Epithelial Cells FEW /lpf (FEW) 06/29/16 05:55 Urine Bacteria MANY /hpf (NONE SEEN) 06/29/16 05:55 Stool Occult Blood POSITIVE (NEGATIVE) 06/24/16 16:00 Random Vancomycin 13.4 ug/mL (5.0-40.0) 06/28/16 04:38 RPR NONREACTIVE (NONREACTIVE) 06/22/16 19:33 Hepatitis A IgM Ab Negative (Negative) 06/29/16 05:49 Hep Bs Antigen Negative (Negative) 06/29/16 05:49 Hep B Core IgM Ab Negative (Negative) 06/29/16 05:49 Hepatitis C Antibody >11.0 s/co ratio (0.0-0.9) H 06/29/16 05:49 Blood Type A POSITIVE 07/25/16 00:45 Antibody Screen NEGATIVE 07/25/16 00:45 Crossmatch See Detail 07/25/16 00:45 - Physical Exam Vitals and I&O: Vital Signs Temp 99.3 F 07/31/16 08:00 Pulse 113 07/31/16 08:00 Resp 20 07/31/16 08:00 BP 128/74 07/31/16 08:00 Pulse Ox 97 07/31/16 08:00 Intake & Output 07/30/16 07/31/16 07/31/16 18:59 06:59 18:59 Intake Total 1800 350 Output Total 800 Balance 1000 350 Intake: Oral 1800 350 Output: Urine 800 Other: # Voids 3 3 # Bowel Movements 0 Active Medications: Current Medications Acetaminophen (Tylenol) 650 mg PO Q6H PRN PRN Reason: temperature above 100F Stop: 09/28/16 16:14 Last Admin: 07/30/16 16:27 Dose: 650 mg Albuterol/Ipratropium (Duoneb Neb) 3 ml HHN Q2HR PRN PRN Reason: Shortness of Breath or Wheeze Stop: 09/08/16 09:51 Aspirin (Ecotrin) 325 mg PO DAILY MARQUISE Stop: 09/03/16 09:14 Last Admin: 07/31/16 08:29 Dose: 325 mg Calamine/Phenol (Calmoseptine) 1 appl TP QID PRN PRN Reason: Skin Irritation Stop: 09/08/16 18:33 Last Admin: 07/30/16 15:02 Dose: 1 appl Calamine/Phenol (Calmoseptine) 1 appl TP QID MARQUISE Stop: 09/08/16 20:59 Last Admin: 07/31/16 08:30 Dose: 1 appl Diphenhydramine HCl (Benadryl 50 Mg/Ml) 50 mg IM Q8HR PRN PRN Reason: Agitation Stop: 08/25/16 12:10 Docusate Sodium (Colace) 100 mg PO Q12HR MARQUISE Stop: 09/16/16 08:59 Last Admin: 07/31/16 08:29 Dose: 100 mg Haloperidol Lactate (Haldol) 5 mg IM Q8HR PRN PRN Reason: Agitation Stop: 08/25/16 12:10 Lactic Acid (Lac-Hydrin Cream) 1 appl TP BID MARQUISE Stop: 09/12/16 08:59 Last Admin: 07/31/16 08:29 Dose: 1 appl Lactulose (Cephulac) 20 gm PO Q8HR MARQUISE Stop: 09/16/16 04:59 Last Admin: 07/31/16 05:13 Dose: Not Given Miscellaneous (Clinical Monitoring) 1 ea MC PRN PRN PRN Reason: RENAL DOSING Stop: 08/31/16 16:27 Morphine Sulfate (Morphine) 2 mg IV Q4H PRN PRN Reason: SEVERE PAIN Stop: 09/23/16 12:59 Last Admin: 07/31/16 03:24 Dose: 2 mg Morphine Sulfate (Morphine) 1 mg IVP Q4H PRN PRN Reason: MODERATE PAIN Stop: 09/23/16 13:03 Last Admin: 07/26/16 11:16 Dose: 1 mg General: No acute distress HEENT: Atraumatic Neck: Supple Cardiovascular: Regular rate Lungs: Clear to auscultation - Procedures Procedures: Procedures Procedure Code Date ARTERY-VEIN NONAUTOGRAFT 27771 06/22/16 BLOOD TRANSFUSION SERVICE 41901 06/22/16 BYPASS L BRACH ART TO UP ARM VEIN W NONAUT SUB, OPEN [id number] 06/22/16 FLUOROSCOPY OF SUP VENA CAVA USING [facility] CONTRAST, GUIDANCE [id number] 06/22/16 INSERTION OF INFUSION DEV INTO SUP VENA CAVA, PERC APPROACH [id number] 06/22/[address] PL[address] CATHETER IN VEIN [address]269 06/22/16 TRANSFUSE NONAUT RED BLOOD CELLS IN PERIPH VEIN, PERC [id number] 06/22/16 Assessment/Plan - Problem List Patient Problems: All Active Problems MEDICAL EVALUATION PER DR FRY (Acute) - Assessment Assessment: 1. Cellulitis of legs. 2. Lymphedema of legs. 3. CKD 5 on HD. 4. Morbid obesity. 5 anemia 6 gi bleed 7 psychosis - Plan Plan: ivabx follow up labs id consult awaiting placement
--- NOTE | 2016-07-31 14:51 | General Progress Note ---
Subjective - Review of Systems Service Date: 07/31/16 Subjective: sleeping, comfortable, more cooperative today per nurse Objective - Results Result Diagrams: 07/29/16 05:55 07/28/16 05:30 Recent Labs: Laboratory Last Values WBC 5.5 Th/cmm (4.8-10.8) 07/29/16 05:55 RBC 2.66 Mil/cmm (4.30-5.70) L 07/29/16 05:55 Hgb 7.8 gm/dL (13.2-17.3) L* 07/29/16 05:55 Hct 23.2 % (39.0-49.0) L* 07/29/16 05:55 MCV 87.2 fl (80-99) 07/29/16 05:55 MCH 29.2 pg (26.0-30.0) 07/29/16 05:55 MCHC Differential 33.5 pg (28.0-36.0) 07/29/16 05:55 RDW 15.3 % (11.5-20.0) 07/29/16 05:55 Plt Count 140 Th/cmm (150-400) L 07/29/16 05:55 MPV 8.3 fl 07/29/16 05:55 Neutrophils % 56.8 % (40.0-80.0) 07/07/16 06:00 Band Neutrophils % 1 % (0-10) 07/28/16 05:30 Lymphocytes % 18.4 % (20.0-50.0) L 07/07/16 06:00 Monocytes % 13.8 % (2.0-10.0) H 07/07/16 06:00 Eosinophils % 11.0 % (0.0-5.0) H 07/07/16 06:00 Basophils % 0.0 % (0.0-2.0) 07/07/16 06:00 Neutrophils (Manual) 67 % (40-80) 07/29/16 05:55 Lymphocytes 16 % (20-50) L 07/29/16 05:55 Monocytes 7 % (2-10) 07/29/16 05:55 Eosinophils 10 % (0-5) H 07/29/16 05:55 Basophils 2 % (0-3) 07/26/16 11:05 Myelocytes 1 % 07/14/16 16:00 Hypochromia 1+ 07/20/16 23:30 Platelet Estimate DECREASED PLATELETS (NORMAL) 07/29/16 05:55 Platelet Morphology NORMAL (NORMAL) 07/29/16 05:55 Polychromasia 1+ 07/20/16 23:30 Anisocytosis 1+ 07/29/16 05:55 Microcytosis 1+ 07/14/16 16:00 RBC Morph Micro Appear ABNORMAL (NORMAL) 07/29/16 05:55 PT 12.7 SECONDS (9.5-11.5) H 07/01/16 06:57 INR 1.26 (0.5-1.4) 07/01/16 06:57 PTT (Actin FS) 28.3 SECONDS (26.0-38.0) 06/28/16 04:38 Specimen Source art 06/22/16 20:03 Sample Site Right Radial 06/22/16 20:03 pH 7.49 (7.35-7.45) H 06/22/16 20:03 pCO2 34.0 mmHg (35.0-45.0) L 06/22/16 20:03 pO2 97.0 mmHg (80.0-100.0) 06/22/16 20:03 HCO3 25.9 mmol/L (20.0-26.0) 06/22/16 20:03 Base Excess 2.8 mmol/L (-3.0-3.0) 06/22/16 20:03 O2 Saturation 98.0 % (92.0-100.0) 06/22/16 20:03 Estuardo Test P 06/22/16 20:03 Vent Rate NA 06/22/16 20:03 Inspired O2 21 06/22/16 20:03 Tidal Volume NA 06/22/16 20:03 PEEP NA 06/22/16 20:03 Pressure (ins/psv/peep) NA 06/22/16 20:03 Critical Value RPINEIRA 06/22/16 20:03 Sodium 133 mEq/L (136-145) L 07/28/16 05:30 Potassium 3.5 mEq/L (3.5-5.1) 07/28/16 05:30 Chloride 95 mEq/L (98-107) L 07/28/16 05:30 Carbon Dioxide 27.6 mEq/L (21.0-31.0) 07/28/16 05:30 Anion Gap 13.9 (7.0-16.0) 07/28/16 05:30 BUN 46 mg/dL (7-25) H 07/28/16 05:30 Creatinine 4.0 mg/dL (0.7-1.3) H 07/28/16 05:30 Est GFR ( Amer) 20.6 ml/min (>90) 07/28/16 05:30 Est GFR (Non-Af Amer) 17.0 ml/min 07/28/16 05:30 BUN/Creatinine Ratio 11.5 07/28/16 05:30 Glucose 99 mg/dL (70-105) 07/28/16 05:30 Calcium 9.2 mg/dL (8.6-10.3) 07/28/16 05:30 Phosphorus 5.5 mg/dL (2.5-5.0) H 07/19/16 09:50 Magnesium 2.0 mg/dL (1.9-2.7) 07/07/16 06:00 Iron 42 ug/dL (38-169) 06/28/16 04:38 TIBC 269 ug/dL (250-450) 06/28/16 04:38 Iron Saturation 16 % (15-55) 06/28/16 04:38 Unsaturated IBC 227 ug/dL (111-343) 06/28/16 04:38 Ferritin 150 ng/mL (30-400) 06/26/16 08:30 Total Bilirubin 0.8 mg/dL (0.3-1.0) 07/28/16 05:30 Direct Bilirubin 0.70 mg/dL (0.0-0.2) H 06/28/16 04:38 GGTP 14 IU/L (0-65) 06/28/16 04:38 AST 52 U/L (13-39) H 07/28/16 05:30 ALT 30 U/L (7-52) 07/28/16 05:30 Alkaline Phosphatase 38 U/L (34-104) 07/28/16 05:30 Ammonia 105 umol/L (16-53) H 07/02/16 06:40 Troponin I < 0.01 ng/mL (0.01-0.05) L 06/22/16 19:33 B-Natriuretic Peptide 668.0 pg/mL (5.0-100.0) H 06/22/16 19:33 Total Protein 7.8 gm/dL (6.0-8.3) 07/28/16 05:30 Albumin 2.7 gm/dL (4.2-5.5) L 07/28/16 05:30 Globulin 5.1 gm/dL 07/28/16 05:30 Albumin/Globulin Ratio 0.5 (1.0-1.8) L 07/28/16 05:30 Amylase 28 U/L (29-103) L 07/02/16 06:40 Lipase 31 U/L (11-82) 07/02/16 06:40 Urine Source CLEAN C 06/29/16 05:55 Urine Color YELLOW 06/29/16 05:55 Urine Clarity HAZY (CLEAR) 06/29/16 05:55 Urine pH 5.5 06/29/16 05:55 Ur Specific [place] 1.015 (1.005-1.030) 06/29/16 05:55 Urine Protein 30 mg/dL (NEGATIVE) H 06/29/16 05:55 Urine Glucose (UA) NEGATIVE mg/dL (NEGATIVE) 06/29/16 05:55 Urine Ketones NEGATIVE mg/dL (NEGATIVE) 06/29/16 05:55 Urine Blood NEGATIVE (NEGATIVE) 06/29/16 05:55 Urine Nitrate NEGATIVE (NEGATIVE) 06/29/16 05:55 Urine Bilirubin NEGATIVE (NEGATIVE) 06/29/16 05:55 Urine Urobilinogen 0.2 E.U./dL (0.2 - 1.0) 06/29/16 05:55 Ur Leukocyte Esterase TRACE (NEGATIVE) H 06/29/16 05:55 Urine RBC 0-2 /hpf (0-5) H 06/29/16 05:55 Urine WBC 6-10 /hpf (0-5) H 06/29/16 05:55 Ur Epithelial Cells FEW /lpf (FEW) 06/29/16 05:55 Urine Bacteria MANY /hpf (NONE SEEN) 06/29/16 05:55 Stool Occult Blood POSITIVE (NEGATIVE) 06/24/16 16:00 Random Vancomycin 13.4 ug/mL (5.0-40.0) 06/28/16 04:38 RPR NONREACTIVE (NONREACTIVE) 06/22/16 19:33 Hepatitis A IgM Ab Negative (Negative) 06/29/16 05:49 Hep Bs Antigen Negative (Negative) 06/29/16 05:49 Hep B Core IgM Ab Negative (Negative) 06/29/16 05:49 Hepatitis C Antibody >11.0 s/co ratio (0.0-0.9) H 06/29/16 05:49 Blood Type A POSITIVE 07/25/16 00:45 Antibody Screen NEGATIVE 07/25/16 00:45 Crossmatch See Detail 07/25/16 00:45 - Physical Exam Vitals and I&O: Vital Signs Temp 99.9 F 07/31/16 11:46 Pulse 132 07/31/16 11:46 Resp 20 07/31/16 11:46 BP 119/75 07/31/16 11:46 Pulse Ox 94 07/31/16 11:46 Intake & Output 07/30/16 07/31/16 07/31/16 18:59 06:59 18:59 Intake Total 1800 350 Output Total 800 Balance 1000 350 Intake: Oral 1800 350 Output: Urine 800 Other: # Voids 3 3 # Bowel Movements 0 Active Medications: Current Medications Acetaminophen (Tylenol) 650 mg PO Q6H PRN PRN Reason: temperature above 100F Stop: 09/28/16 16:14 Last Admin: 07/30/16 16:27 Dose: 650 mg Albuterol/Ipratropium (Duoneb Neb) 3 ml HHN Q2HR PRN PRN Reason: Shortness of Breath or Wheeze Stop: 09/08/16 09:51 Aspirin (Ecotrin) 325 mg PO DAILY MARQUISE Stop: 09/03/16 09:14 Last Admin: 07/31/16 08:29 Dose: 325 mg Calamine/Phenol (Calmoseptine) 1 appl TP QID PRN PRN Reason: Skin Irritation Stop: 09/08/16 18:33 Last Admin: 07/30/16 15:02 Dose: 1 appl Calamine/Phenol (Calmoseptine) 1 appl TP QID MARQUISE Stop: 09/08/16 20:59 Last Admin: 07/31/16 08:30 Dose: 1 appl Diphenhydramine HCl (Benadryl 50 Mg/Ml) 50 mg IM Q8HR PRN PRN Reason: Agitation Stop: 08/25/16 12:10 Docusate Sodium (Colace) 100 mg PO Q12HR MARQUISE Stop: 09/16/16 08:59 Last Admin: 07/31/16 08:29 Dose: 100 mg Haloperidol Lactate (Haldol) 5 mg IM Q8HR PRN PRN Reason: Agitation Stop: 08/25/16 12:10 Lactic Acid (Lac-Hydrin Cream) 1 appl TP BID MARQUISE Stop: 09/12/16 08:59 Last Admin: 07/31/16 08:29 Dose: 1 appl Lactulose (Cephulac) 20 gm PO Q8HR MARQUISE Stop: 09/16/16 04:59 Last Admin: 07/31/16 05:13 Dose: Not Given Miscellaneous (Clinical Monitoring) 1 ea MC PRN PRN PRN Reason: RENAL DOSING Stop: 08/31/16 16:27 Morphine Sulfate (Morphine) 2 mg IV Q4H PRN PRN Reason: SEVERE PAIN Stop: 09/23/16 12:59 Last Admin: 07/31/16 03:24 Dose: 2 mg Morphine Sulfate (Morphine) 1 mg IVP Q4H PRN PRN Reason: MODERATE PAIN Stop: 09/23/16 13:03 Last Admin: 07/26/16 11:16 Dose: 1 mg General: No acute distress HEENT: Atraumatic, Mucous membr. moist/pink Neck: Supple, +2 carotid pulse wo bruit Cardiovascular: Regular rate, Normal S1, Normal S2 Lungs: Other Abdomen: Bowel sounds, Soft Extremities: Clubbing, Edema ((+) 3 bipedal edema) Neurological: Normal speech, Strength at 5/5 X4 ext, Sensation intact, Cranial nerves 3-12 NL Skin: no Rash Psych/Mental Status: Mood NL - Procedures Procedures: Procedures Procedure Code Date ARTERY-VEIN NONAUTOGRAFT 49885 06/22/16 BLOOD TRANSFUSION SERVICE 22249 06/22/16 BYPASS L BRACH ART TO UP ARM VEIN W NONAUT SUB, OPEN [id number] 06/22/16 FLUOROSCOPY OF SUP VENA CAVA USING [facility] CONTRAST, GUIDANCE [id number] 06/22/16 INSERTION OF INFUSION DEV INTO SUP VENA CAVA, PERC APPROACH [id number] 06/22/16 PLACE CATHETER IN VEIN 70929 06/22/16 TRANSFUSE NONAUT RED BLOOD CELLS IN PERIPH VEIN, PERC [id number] 06/22/16 Assessment/Plan - Problem List Patient Problems: All Active Problems MEDICAL EVALUATION PER DR FRY (Acute) - Assessment Assessment: esrd on hd persistent cellulitis b/l lower ext acute on chronic anemia possible gi bleed ohs chronic a. fib hypothyroid anasarca functional quadriplegia chronic venous stasis dermatitis acute decomp psychosis hypokalemia, hypomagnesemia s/p left avg - Plan Plan: Lab - Result Diagrams 07/19/16 09:50 Lab - Result Diagrams 07/22/16 05:21 Lab - Result Diagrams 07/24/16 05:00 Lab - Result Diagrams 07/28/16 05:30 07/28/16 05:30 07/24/16 05:00 07/20/16 05:50 07/19/16 09:50 latest hgb/hct were 7.8/23.2 transfused 1 U PRBC Saturday schedule for HD in am placement in progress Lab - Result Diagrams 07/19/16 09:50 07/20/16 05:50 Lab - Result Diagrams 07/21/16 06:16 07/20/16 05:50 Lab - Result Diagrams 07/26/16 11:05 07/24/16 05:00 Lab - Result Diagrams 07/29/16 05:55 07/28/16 05:30
[2016-08-01] MEDS: Morphine Sulfate 2 mg/mL 1mL Syr IV PRN ×4 (00:04→21:41)
[2016-08-01] MEDS: Lactulose 10 Gm/15 mL 30mL UDC PO SCH ×3 (07:53→21:42)
[2016-08-01] MEDS: Aspirin 325 mg EC PO SCH (08:07)
[2016-08-01] MEDS: Ammonium Lactate Cream 140 gm Tube TP SCH ×2 (08:08→17:43)
--- NOTE | 2016-08-01 08:27 | General Progress Note ---
Subjective - Review of Systems Service Date: 08/01/16 Subjective: renal notes noted c/o wekness Objective - Results Result Diagrams: 08/02/16 05:25 08/02/16 05:25 Recent Labs: Laboratory Last Values WBC 5.5 Th/cmm (4.8-10.8) 07/29/16 05:55 RBC 2.66 Mil/cmm (4.30-5.70) L 07/29/16 05:55 Hgb 7.8 gm/dL (13.2-17.3) L* 07/29/16 05:55 Hct 23.2 % (39.0-49.0) L* 07/29/16 05:55 MCV 87.2 fl (80-99) 07/29/16 05:55 MCH 29.2 pg (26.0-30.0) 07/29/16 05:55 MCHC Differential 33.5 pg (28.0-36.0) 07/29/16 05:55 RDW 15.3 % (11.5-20.0) 07/29/16 05:55 Plt Count 140 Th/cmm (150-400) L 07/29/16 05:55 MPV 8.3 fl 07/29/16 05:55 Neutrophils % 56.8 % (40.0-80.0) 07/07/16 06:00 Band Neutrophils % 1 % (0-10) 07/28/16 05:30 Lymphocytes % 18.4 % (20.0-50.0) L 07/07/16 06:00 Monocytes % 13.8 % (2.0-10.0) H 07/07/16 06:00 Eosinophils % 11.0 % (0.0-5.0) H 07/07/16 06:00 Basophils % 0.0 % (0.0-2.0) 07/07/16 06:00 Neutrophils (Manual) 67 % (40-80) 07/29/16 05:55 Lymphocytes 16 % (20-50) L 07/29/16 05:55 Monocytes 7 % (2-10) 07/29/16 05:55 Eosinophils 10 % (0-5) H 07/29/16 05:55 Basophils 2 % (0-3) 07/26/16 11:05 Myelocytes 1 % 07/14/16 16:00 Hypochromia 1+ 07/20/16 23:30 Platelet Estimate DECREASED PLATELETS (NORMAL) 07/29/16 05:55 Platelet Morphology NORMAL (NORMAL) 07/29/16 05:55 Polychromasia 1+ 07/20/16 23:30 Anisocytosis 1+ 07/29/16 05:55 Microcytosis 1+ 07/14/16 16:00 RBC Morph Micro Appear ABNORMAL (NORMAL) 07/29/16 05:55 PT 12.7 SECONDS (9.5-11.5) H 07/01/16 06:57 INR 1.26 (0.5-1.4) 07/01/16 06:57 PTT (Actin FS) 28.3 SECONDS (26.0-38.0) 06/28/16 04:38 Specimen Source art 06/22/16 20:03 Sample Site Right Radial 06/22/16 20:03 pH 7.49 (7.35-7.45) H 06/22/16 20:03 pCO2 34.0 mmHg (35.0-45.0) L 06/22/16 20:03 pO2 97.0 mmHg (80.0-100.0) 06/22/16 20:03 HCO3 25.9 mmol/L (20.0-26.0) 06/22/16 20:03 Base Excess 2.8 mmol/L (-3.0-3.0) 06/22/16 20:03 O2 Saturation 98.0 % (92.0-100.0) 06/22/16 20:03 Estuardo Test P 06/22/16 20:03 Vent Rate NA 06/22/16 20:03 Inspired O2 21 06/22/16 20:03 Tidal Volume NA 06/22/16 20:03 PEEP NA 06/22/16 20:03 Pressure (ins/psv/peep) NA 06/22/16 20:03 Critical Value RPINEIRA 06/22/16 20:03 Sodium 133 mEq/L (136-145) L 07/28/16 05:30 Potassium 3.5 mEq/L (3.5-5.1) 07/28/16 05:30 Chloride 95 mEq/L (98-107) L 07/28/16 05:30 Carbon Dioxide 27.6 mEq/L (21.0-31.0) 07/28/16 05:30 Anion Gap 13.9 (7.0-16.0) 07/28/16 05:30 BUN 46 mg/dL (7-25) H 07/28/16 05:30 Creatinine 4.0 mg/dL (0.7-1.3) H 07/28/16 05:30 Est GFR ( Amer) 20.6 ml/min (>90) 07/28/16 05:30 Est GFR (Non-Af Amer) 17.0 ml/min 07/28/16 05:30 BUN/Creatinine Ratio 11.5 07/28/16 05:30 Glucose 99 mg/dL (70-105) 07/28/16 05:30 Calcium 9.2 mg/dL (8.6-10.3) 07/28/16 05:30 Phosphorus 5.5 mg/dL (2.5-5.0) H 07/19/16 09:50 Magnesium 2.0 mg/dL (1.9-2.7) 07/07/16 06:00 Iron 42 ug/dL (38-169) 06/28/16 04:38 TIBC 269 ug/dL (250-450) 06/28/16 04:38 Iron Saturation 16 % (15-55) 06/28/16 04:38 Unsaturated IBC 227 ug/dL (111-343) 06/28/16 04:38 Ferritin 150 ng/mL (30-400) 06/26/16 08:30 Total Bilirubin 0.8 mg/dL (0.3-1.0) 07/28/16 05:30 Direct Bilirubin 0.70 mg/dL (0.0-0.2) H 06/28/16 04:38 GGTP 14 IU/L (0-65) 06/28/16 04:38 AST 52 U/L (13-39) H 07/28/16 05:30 ALT 30 U/L (7-52) 07/28/16 05:30 Alkaline Phosphatase 38 U/L (34-104) 07/28/16 05:30 Ammonia 105 umol/L (16-53) H 07/02/16 06:40 Troponin I < 0.01 ng/mL (0.01-0.05) L 06/22/16 19:33 B-Natriuretic Peptide 668.0 pg/mL (5.0-100.0) H 06/22/16 19:33 Total Protein 7.8 gm/dL (6.0-8.3) 07/28/16 05:30 Albumin 2.7 gm/dL (4.2-5.5) L 07/28/16 05:30 Globulin 5.1 gm/dL 07/28/16 05:30 Albumin/Globulin Ratio 0.5 (1.0-1.8) L 07/28/16 05:30 Amylase 28 U/L (29-103) L 07/02/16 06:40 Lipase 31 U/L (11-82) 07/02/16 06:40 Urine Source CLEAN C 06/29/16 05:55 Urine Color YELLOW 06/29/16 05:55 Urine Clarity HAZY (CLEAR) 06/29/16 05:55 Urine pH 5.5 06/29/16 05:55 Ur Specific [place] 1.015 (1.005-1.030) 06/29/16 05:55 Urine Protein 30 mg/dL (NEGATIVE) H 06/29/16 05:55 Urine Glucose (UA) NEGATIVE mg/dL (NEGATIVE) 06/29/16 05:55 Urine Ketones NEGATIVE mg/dL (NEGATIVE) 06/29/16 05:55 Urine Blood NEGATIVE (NEGATIVE) 06/29/16 05:55 Urine Nitrate NEGATIVE (NEGATIVE) 06/29/16 05:55 Urine Bilirubin NEGATIVE (NEGATIVE) 06/29/16 05:55 Urine Urobilinogen 0.2 E.U./dL (0.2 - 1.0) 06/29/16 05:55 Ur Leukocyte Esterase TRACE (NEGATIVE) H 06/29/16 05:55 Urine RBC 0-2 /hpf (0-5) H 06/29/16 05:55 Urine WBC 6-10 /hpf (0-5) H 06/29/16 05:55 Ur Epithelial Cells FEW /lpf (FEW) 06/29/16 05:55 Urine Bacteria MANY /hpf (NONE SEEN) 06/29/16 05:55 Stool Occult Blood POSITIVE (NEGATIVE) 06/24/16 16:00 Random Vancomycin 13.4 ug/mL (5.0-40.0) 06/28/16 04:38 RPR NONREACTIVE (NONREACTIVE) 06/22/16 19:33 Hepatitis A IgM Ab Negative (Negative) 06/29/16 05:49 Hep Bs Antigen Negative (Negative) 06/29/16 05:49 Hep B Core IgM Ab Negative (Negative) 06/29/16 05:49 Hepatitis C Antibody >11.0 s/co ratio (0.0-0.9) H 06/29/16 05:49 Blood Type A POSITIVE 07/25/16 00:45 Antibody Screen NEGATIVE 07/25/16 00:45 Crossmatch See Detail 07/25/16 00:45 - Physical Exam Vitals and I&O: Vital Signs Temp 99.9 F 08/01/16 08:00 Pulse 74 08/01/16 08:00 Resp 18 08/01/16 08:00 BP 96/57 08/01/16 08:00 Pulse Ox 96 08/01/16 08:00 Intake & Output 07/31/16 08/01/16 08/01/16 18:59 06:59 18:59 Intake Total 1200 400 Balance 1200 400 Intake: Oral 1200 400 Other: # Voids 4 3 Active Medications: Current Medications Acetaminophen (Tylenol) 650 mg PO Q6H PRN PRN Reason: temperature above 100F Stop: 09/28/16 16:14 Last Admin: 07/30/16 16:27 Dose: 650 mg Albuterol/Ipratropium (Duoneb Neb) 3 ml HHN Q2HR PRN PRN Reason: Shortness of Breath or Wheeze Stop: 09/08/16 09:51 Aspirin (Ecotrin) 325 mg PO DAILY MARQUISE Stop: 09/03/16 09:14 Last Admin: 08/01/16 08:07 Dose: 325 mg Calamine/Phenol (Calmoseptine) 1 appl TP QID PRN PRN Reason: Skin Irritation Stop: 09/08/16 18:33 Last Admin: 07/30/16 15:02 Dose: 1 appl Calamine/Phenol (Calmoseptine) 1 appl TP QID MARQUISE Stop: 09/08/16 20:59 Last Admin: 07/31/16 22:33 Dose: 1 appl Diphenhydramine HCl (Benadryl 50 Mg/Ml) 50 mg IM Q8HR PRN PRN Reason: Agitation Stop: 08/25/16 12:10 Docusate Sodium (Colace) 100 mg PO Q12HR MARQUISE Stop: 09/16/16 08:59 Last Admin: 08/01/16 08:07 Dose: 100 mg Haloperidol Lactate (Haldol) 5 mg IM Q8HR PRN PRN Reason: Agitation Stop: 08/25/16 12:10 Lactic Acid (Lac-Hydrin Cream) 1 appl TP BID MARQUISE Stop: 09/12/16 08:59 Last Admin: 08/01/16 08:08 Dose: 1 appl Lactulose (Cephulac) 20 gm PO Q8HR MARQUISE Stop: 09/16/16 04:59 Last Admin: 08/01/16 07:53 Dose: Not Given Miscellaneous (Clinical Monitoring) 1 ea MC PRN PRN PRN Reason: RENAL DOSING Stop: 08/31/16 16:27 Morphine Sulfate (Morphine) 2 mg IV Q4H PRN PRN Reason: SEVERE PAIN Stop: 09/23/16 12:59 Last Admin: 08/01/16 04:57 Dose: 2 mg Morphine Sulfate (Morphine) 1 mg IVP Q4H PRN PRN Reason: MODERATE PAIN Stop: 09/23/16 13:03 Last Admin: 07/26/16 11:16 Dose: 1 mg General: No acute distress HEENT: Atraumatic Neck: Supple Cardiovascular: Regular rate Lungs: Clear to auscultation Abdomen: Bowel sounds - Procedures Procedures: Procedures Procedure Code Date ARTERY-VEIN NONAUTOGRAFT 37133 06/22/16 BLOOD TRANSFUSION SERVICE 25197 06/22/16 BYPASS L BRACH ART TO UP ARM VEIN W NONAUT SUB, OPEN [id number] 06/22/16 FLUOROSCOPY OF SUP VENA CAVA USING [facility] CONTRAST, GUIDANCE [id number] 06/22/16 INSERTION OF INFUSION DEV INTO SUP VENA CAVA, PERC APPROACH [id number] 06/22/[address] PL[address] CATHETER IN VEIN 09938 06/22/16 TRANSFUSE NONAUT RED BLOOD CELLS IN PERIPH VEIN, PERC [id number] 06/22/16 Assessment/Plan - Problem List Patient Problems: All Active Problems Anemia (Acute) D64.9 ESRD (end stage renal disease) (Acute) ESRD (end stage renal disease) on dialysis (Acute) N18.6, Z99.2 ESRD (end stage renal disease) on dialysis (Acute) N18.6, Z99.[address] PER DR FRY (Acute) - Assessment Assessment: 1. Cellulitis of legs. 2. Lymphedema of legs. 3. CKD 5 on HD. 4. Morbid obesity. 5 anemia 6 gi bleed 7 psychosis - Plan Plan: ivabx follow up labs awaiting placement blood transfusion during dialysis
[2016-08-01] MEDS: Menthol/Zinc Oxide Oint 113gm Tube TP SCH ×4 (10:00→21:00)
--- NOTE | 2016-08-01 14:17 | General Progress Note ---
Subjective - Review of Systems Service Date: 08/01/16 Subjective: sleeping, comfortable, arousable Objective - Results Result Diagrams: 07/29/16 05:55 07/28/16 05:30 Recent Labs: Laboratory Last Values WBC 5.5 Th/cmm (4.8-10.8) 07/29/16 05:55 RBC 2.66 Mil/cmm (4.30-5.70) L 07/29/16 05:55 Hgb 7.8 gm/dL (13.2-17.3) L* 07/29/16 05:55 Hct 23.2 % (39.0-49.0) L* 07/29/16 05:55 MCV 87.2 fl (80-99) 07/29/16 05:55 MCH 29.2 pg (26.0-30.0) 07/29/16 05:55 MCHC Differential 33.5 pg (28.0-36.0) 07/29/16 05:55 RDW 15.3 % (11.5-20.0) 07/29/16 05:55 Plt Count 140 Th/cmm (150-400) L 07/29/16 05:55 MPV 8.3 fl 07/29/16 05:55 Neutrophils % 56.8 % (40.0-80.0) 07/07/16 06:00 Band Neutrophils % 1 % (0-10) 07/28/16 05:30 Lymphocytes % 18.4 % (20.0-50.0) L 07/07/16 06:00 Monocytes % 13.8 % (2.0-10.0) H 07/07/16 06:00 Eosinophils % 11.0 % (0.0-5.0) H 07/07/16 06:00 Basophils % 0.0 % (0.0-2.0) 07/07/16 06:00 Neutrophils (Manual) 67 % (40-80) 07/29/16 05:55 Lymphocytes 16 % (20-50) L 07/29/16 05:55 Monocytes 7 % (2-10) 07/29/16 05:55 Eosinophils 10 % (0-5) H 07/29/16 05:55 Basophils 2 % (0-3) 07/26/16 11:05 Myelocytes 1 % 07/14/16 16:00 Hypochromia 1+ 07/20/16 23:30 Platelet Estimate DECREASED PLATELETS (NORMAL) 07/29/16 05:55 Platelet Morphology NORMAL (NORMAL) 07/29/16 05:55 Polychromasia 1+ 07/20/16 23:30 Anisocytosis 1+ 07/29/16 05:55 Microcytosis 1+ 07/14/16 16:00 RBC Morph Micro Appear ABNORMAL (NORMAL) 07/29/16 05:55 PT 12.7 SECONDS (9.5-11.5) H 07/01/16 06:57 INR 1.26 (0.5-1.4) 07/01/16 06:57 PTT (Actin FS) 28.3 SECONDS (26.0-38.0) 06/28/16 04:38 Specimen Source art 06/22/16 20:03 Sample Site Right Radial 06/22/16 20:03 pH 7.49 (7.35-7.45) H 06/22/16 20:03 pCO2 34.0 mmHg (35.0-45.0) L 06/22/16 20:03 pO2 97.0 mmHg (80.0-100.0) 06/22/16 20:03 HCO3 25.9 mmol/L (20.0-26.0) 06/22/16 20:03 Base Excess 2.8 mmol/L (-3.0-3.0) 06/22/16 20:03 O2 Saturation 98.0 % (92.0-100.0) 06/22/16 20:03 Estuardo Test P 06/22/16 20:03 Vent Rate NA 06/22/16 20:03 Inspired O2 21 06/22/16 20:03 Tidal Volume NA 06/22/16 20:03 PEEP NA 06/22/16 20:03 Pressure (ins/psv/peep) NA 06/22/16 20:03 Critical Value RPINEIRA 06/22/16 20:03 Sodium 133 mEq/L (136-145) L 07/28/16 05:30 Potassium 3.5 mEq/L (3.5-5.1) 07/28/16 05:30 Chloride 95 mEq/L (98-107) L 07/28/16 05:30 Carbon Dioxide 27.6 mEq/L (21.0-31.0) 07/28/16 05:30 Anion Gap 13.9 (7.0-16.0) 07/28/16 05:30 BUN 46 mg/dL (7-25) H 07/28/16 05:30 Creatinine 4.0 mg/dL (0.7-1.3) H 07/28/16 05:30 Est GFR ( Amer) 20.6 ml/min (>90) 07/28/16 05:30 Est GFR (Non-Af Amer) 17.0 ml/min 07/28/16 05:30 BUN/Creatinine Ratio 11.5 07/28/16 05:30 Glucose 99 mg/dL (70-105) 07/28/16 05:30 Calcium 9.2 mg/dL (8.6-10.3) 07/28/16 05:30 Phosphorus 5.5 mg/dL (2.5-5.0) H 07/19/16 09:50 Magnesium 2.0 mg/dL (1.9-2.7) 07/07/16 06:00 Iron 42 ug/dL (38-169) 06/28/16 04:38 TIBC 269 ug/dL (250-450) 06/28/16 04:38 Iron Saturation 16 % (15-55) 06/28/16 04:38 Unsaturated IBC 227 ug/dL (111-343) 06/28/16 04:38 Ferritin 150 ng/mL (30-400) 06/26/16 08:30 Total Bilirubin 0.8 mg/dL (0.3-1.0) 07/28/16 05:30 Direct Bilirubin 0.70 mg/dL (0.0-0.2) H 06/28/16 04:38 GGTP 14 IU/L (0-65) 06/28/16 04:38 AST 52 U/L (13-39) H 07/28/16 05:30 ALT 30 U/L (7-52) 07/28/16 05:30 Alkaline Phosphatase 38 U/L (34-104) 07/28/16 05:30 Ammonia 105 umol/L (16-53) H 07/02/16 06:40 Troponin I < 0.01 ng/mL (0.01-0.05) L 06/22/16 19:33 B-Natriuretic Peptide 668.0 pg/mL (5.0-100.0) H 06/22/16 19:33 Total Protein 7.8 gm/dL (6.0-8.3) 07/28/16 05:30 Albumin 2.7 gm/dL (4.2-5.5) L 07/28/16 05:30 Globulin 5.1 gm/dL 07/28/16 05:30 Albumin/Globulin Ratio 0.5 (1.0-1.8) L 07/28/16 05:30 Amylase 28 U/L (29-103) L 07/02/16 06:40 Lipase 31 U/L (11-82) 07/02/16 06:40 Urine Source CLEAN C 06/29/16 05:55 Urine Color YELLOW 06/29/16 05:55 Urine Clarity HAZY (CLEAR) 06/29/16 05:55 Urine pH 5.5 06/29/16 05:55 Ur Specific [place] 1.015 (1.005-1.030) 06/29/16 05:55 Urine Protein 30 mg/dL (NEGATIVE) H 06/29/16 05:55 Urine Glucose (UA) NEGATIVE mg/dL (NEGATIVE) 06/29/16 05:55 Urine Ketones NEGATIVE mg/dL (NEGATIVE) 06/29/16 05:55 Urine Blood NEGATIVE (NEGATIVE) 06/29/16 05:55 Urine Nitrate NEGATIVE (NEGATIVE) 06/29/16 05:55 Urine Bilirubin NEGATIVE (NEGATIVE) 06/29/16 05:55 Urine Urobilinogen 0.2 E.U./dL (0.2 - 1.0) 06/29/16 05:55 Ur Leukocyte Esterase TRACE (NEGATIVE) H 06/29/16 05:55 Urine RBC 0-2 /hpf (0-5) H 06/29/16 05:55 Urine WBC 6-10 /hpf (0-5) H 06/29/16 05:55 Ur Epithelial Cells FEW /lpf (FEW) 06/29/16 05:55 Urine Bacteria MANY /hpf (NONE SEEN) 06/29/16 05:55 Stool Occult Blood POSITIVE (NEGATIVE) 06/24/16 16:00 Random Vancomycin 13.4 ug/mL (5.0-40.0) 06/28/16 04:38 RPR NONREACTIVE (NONREACTIVE) 06/22/16 19:33 Hepatitis A IgM Ab Negative (Negative) 06/29/16 05:49 Hep Bs Antigen Negative (Negative) 06/29/16 05:49 Hep B Core IgM Ab Negative (Negative) 06/29/16 05:49 Hepatitis C Antibody >11.0 s/co ratio (0.0-0.9) H 06/29/16 05:49 Blood Type A POSITIVE 07/25/16 00:45 Antibody Screen NEGATIVE 07/25/16 00:45 Crossmatch See Detail 07/25/16 00:45 - Physical Exam Vitals and I&O: Vital Signs Temp 98.0 F 08/01/16 12:00 Pulse 106 08/01/16 12:00 Resp 18 08/01/16 12:00 BP 106/62 08/01/16 12:00 Pulse Ox 98 08/01/16 12:00 Intake & Output 07/31/16 08/01/16 08/01/16 18:59 06:59 18:59 Intake Total 1200 400 Balance 1200 400 Intake: Oral 1200 400 Other: # Voids 4 3 Active Medications: Current Medications Acetaminophen (Tylenol) 650 mg PO Q6H PRN PRN Reason: temperature above 100F Stop: 09/28/16 16:14 Last Admin: 07/30/16 16:27 Dose: 650 mg Albuterol/Ipratropium (Duoneb Neb) 3 ml HHN Q2HR PRN PRN Reason: Shortness of Breath or Wheeze Stop: 09/08/16 09:51 Aspirin (Ecotrin) 325 mg PO DAILY MARQUISE Stop: 09/03/16 09:14 Last Admin: 08/01/16 08:07 Dose: 325 mg Calamine/Phenol (Calmoseptine) 1 appl TP QID PRN PRN Reason: Skin Irritation Stop: 09/08/16 18:33 Last Admin: 07/30/16 15:02 Dose: 1 appl Calamine/Phenol (Calmoseptine) 1 appl TP QID MARQUISE Stop: 09/08/16 20:59 Last Admin: 08/01/16 10:00 Dose: Not Given Diphenhydramine HCl (Benadryl 50 Mg/Ml) 50 mg IM Q8HR PRN PRN Reason: Agitation Stop: 08/25/16 12:10 Docusate Sodium (Colace) 100 mg PO Q12HR MARQUISE Stop: 09/16/16 08:59 Last Admin: 08/01/16 08:07 Dose: 100 mg Haloperidol Lactate (Haldol) 5 mg IM Q8HR PRN PRN Reason: Agitation Stop: 08/25/16 12:10 Lactic Acid (Lac-Hydrin Cream) 1 appl TP BID MARQUISE Stop: 09/12/16 08:59 Last Admin: 08/01/16 08:08 Dose: 1 appl Lactulose (Cephulac) 20 gm PO Q8HR MARQUISE Stop: 09/16/16 04:59 Last Admin: 08/01/16 13:37 Dose: 20 gm Miscellaneous (Clinical Monitoring) 1 ea MC PRN PRN PRN Reason: RENAL DOSING Stop: 08/31/16 16:27 Morphine Sulfate (Morphine) 2 mg IV Q4H PRN PRN Reason: SEVERE PAIN Stop: 09/23/16 12:59 Last Admin: 08/01/16 10:49 Dose: 2 mg Morphine Sulfate (Morphine) 1 mg IVP Q4H PRN PRN Reason: MODERATE PAIN Stop: 09/23/16 13:03 Last Admin: 07/26/16 11:16 Dose: 1 mg General: No acute distress HEENT: Atraumatic, Mucous membr. moist/pink Neck: Supple, +2 carotid pulse wo bruit Cardiovascular: Regular rate, Normal S1, Normal S2 Lungs: Other (few rhonchi) Abdomen: Bowel sounds, Soft, Other (obese) Extremities: Edema ((+) 3 bipedal edema) Neurological: Sensation intact Skin: no Rash - Procedures Procedures: Procedures Procedure Code Date ARTERY-VEIN NONAUTOGRAFT 94372 06/22/16 BLOOD TRANSFUSION SERVICE 33883 06/22/16 BYPASS L BRACH ART TO UP ARM VEIN W NONAUT SUB, OPEN [id number] 06/22/16 FLUOROSCOPY OF SUP VENA CAVA USING [facility] CONTRAST, GUIDANCE [id number] 06/22/16 INSERTION OF INFUSION DEV INTO SUP VENA CAVA, PERC APPROACH [id number] 06/22/[address] PLACE CATHETER IN VEIN 75274 06/22/16 TRANSFUSE NONAUT RED BLOOD CELLS IN PERIPH VEIN, PERC [id number] 06/22/16 Assessment/Plan - Problem List Patient Problems: All Active Problems ESRD (end stage renal disease) (Acute) ESRD (end stage renal disease) on dialysis (Acute) N18.6, Z99.2 ESRD (end stage renal disease) on dialysis (Acute) N18.6, Z99.[address] DR FRY (Acute) - Assessment Assessment: esrd on hd persistent cellulitis b/l lower ext acute on chronic anemia possible gi bleed ohs chronic a. fib hypothyroid anasarca functional quadriplegia chronic venous stasis dermatitis acute decomp psychosis hypokalemia, hypomagnesemia s/p left avg - Plan Plan: Lab - Result Diagrams 07/19/16 09:50 Lab - Result Diagrams 07/22/16 05:21 Lab - Result Diagrams 07/24/16 05:00 Lab - Result Diagrams 07/28/16 05:30 07/28/16 05:30 07/24/16 05:00 07/20/16 05:50 07/19/16 09:50 latest hgb/hct were 7.8/23.2 transfused 1 U PRBC Saturday schedule for HD in am placement in progress Lab - Result Diagrams 07/19/16 09:50 07/20/16 05:50 Lab - Result Diagrams 07/21/16 06:16 07/20/16 05:50 Lab - Result Diagrams 07/26/16 11:05 07/24/16 05:00 Lab - Result Diagrams 07/29/16 05:55 07/28/16 05:30
[2016-08-02] MEDS: Morphine Sulfate 2 mg/mL 1mL Syr IV PRN ×3 (05:09→22:39)
[2016-08-02] MEDS: Lactulose 10 Gm/15 mL 30mL UDC PO SCH ×3 (05:31→22:10)
[2016-08-02 05:53] LABS: MEAN CORPUSCULAR HEMOGLOBIN 28.8 pg (26.0-30.0); MEAN CORPUSCULAR HGB CONC 33.5 pg (28.0-36.0); MEAN PLATELET VOLUME 8.5 fl; PLATELET COUNT 114 Th/cmm (150-400); RED BLOOD COUNT 2.59 Mil/cmm (4.30-5.70); RED CELL DISTRIBUTION WIDTH 14.8 % (11.5-20.0); WHITE BLOOD COUNT 4.7 Th/cmm (4.8-10.8)
[2016-08-02 05:58] LABS: HEMATOCRIT 22.3 % (39.0-49.0); HEMOGLOBIN 7.5 gm/dL (13.2-17.3)
[2016-08-02 06:23] LABS: ANION GAP 11.8 (7.0-16.0); BUN/CREATININE RATIO 11.2; CALCIUM SERUM 8.9 mg/dL (8.6-10.3); CARBON DIOXIDE 27.5 mEq/L (21.0-31.0); POTASSIUM SERUM 3.3 mEq/L (3.5-5.1)
[2016-08-02 06:26] LABS: CREATININE - SERUM 4.1 mg/dL (0.7-1.3)
[2016-08-02 08:54] LABS: ANISOCYTOSIS 1+; BASOPHIL 1 % (0-3); EOSINOPHIL 9 % (0-5); NEUTROPHILS 73 % (40-80); TOTAL CELLS COUNTED 100
[2016-08-02 08:55] LABS: PLATELET ESTIMATE DECREASED PLATELETS (NORMAL); PLATELET MORPHOLOGY GIANT PLATELETS SEEN (NORMAL)
[2016-08-02] MEDS: Aspirin 325 mg EC PO SCH (09:26)
[2016-08-02] MEDS: Menthol/Zinc Oxide Oint 113gm Tube TP SCH ×3 (09:26→22:09)
[2016-08-02] MEDS: Ammonium Lactate Cream 140 gm Tube TP SCH ×2 (09:27→16:03)
[2016-08-02] MEDS ORDERED: Potassium Chloride 20 mEq ER Tab PO ONE (14:00)
--- NOTE | 2016-08-02 14:00 | General Progress Note ---
Subjective - Review of Systems Service Date: 08/02/16 Subjective: no new changes Objective - Results Result Diagrams: 08/02/16 05:25 08/02/16 05:25 Recent Labs: Laboratory Last Values WBC 4.7 Th/cmm (4.8-10.8) L 08/02/16 05:25 RBC 2.59 Mil/cmm (4.30-5.70) L 08/02/16 05:25 Hgb 7.5 gm/dL (13.2-17.3) L* 08/02/16 05:25 Hct 22.3 % (39.0-49.0) L* 08/02/16 05:25 MCV 86.0 fl (80-99) 08/02/16 05:25 MCH 28.8 pg (26.0-30.0) 08/02/16 05:25 MCHC Differential 33.5 pg (28.0-36.0) 08/02/16 05:25 RDW 14.8 % (11.5-20.0) 08/02/16 05:25 Plt Count 114 Th/cmm (150-400) L 08/02/16 05:25 MPV 8.5 fl 08/02/16 05:25 Neutrophils % 56.8 % (40.0-80.0) 07/07/16 06:00 Band Neutrophils % 1 % (0-10) 07/28/16 05:30 Lymphocytes % 18.4 % (20.0-50.0) L 07/07/16 06:00 Monocytes % 13.8 % (2.0-10.0) H 07/07/16 06:00 Eosinophils % 11.0 % (0.0-5.0) H 07/07/16 06:00 Basophils % 0.0 % (0.0-2.0) 07/07/16 06:00 Neutrophils (Manual) 73 % (40-80) 08/02/16 05:25 Lymphocytes 11 % (20-50) L 08/02/16 05:25 Monocytes 6 % (2-10) 08/02/16 05:25 Eosinophils 9 % (0-5) H 08/02/16 05:25 Basophils 1 % (0-3) 08/02/16 05:25 Myelocytes 1 % 07/14/16 16:00 Hypochromia 1+ 07/20/16 23:30 Platelet Estimate DECREASED PLATELETS (NORMAL) 08/02/16 05:25 Platelet Morphology GIANT PLATELETS SEEN (NORMAL) 08/02/16 05:25 Polychromasia 1+ 07/20/16 23:30 Anisocytosis 1+ 08/02/16 05:25 Microcytosis 1+ 07/14/16 16:00 RBC Morph Micro Appear ABNORMAL (NORMAL) 08/02/16 05:25 PT 12.7 SECONDS (9.5-11.5) H 07/01/16 06:57 INR 1.26 (0.5-1.4) 07/01/16 06:57 PTT (Actin FS) 28.3 SECONDS (26.0-38.0) 06/28/16 04:38 Specimen Source art 06/22/16 20:03 Sample Site Right Radial 06/22/16 20:03 pH 7.49 (7.35-7.45) H 06/22/16 20:03 pCO2 34.0 mmHg (35.0-45.0) L 06/22/16 20:03 pO2 97.0 mmHg (80.0-100.0) 06/22/16 20:03 HCO3 25.9 mmol/L (20.0-26.0) 06/22/16 20:03 Base Excess 2.8 mmol/L (-3.0-3.0) 06/22/16 20:03 O2 Saturation 98.0 % (92.0-100.0) 06/22/16 20:03 Estuardo Test P 06/22/16 20:03 Vent Rate NA 06/22/16 20:03 Inspired O2 21 06/22/16 20:03 Tidal Volume NA 06/22/16 20:03 PEEP NA 06/22/16 20:03 Pressure (ins/psv/peep) NA 06/22/16 20:03 Critical Value RPINEIRA 06/22/16 20:03 Sodium 130 mEq/L (136-145) L 08/02/16 05:25 Potassium 3.3 mEq/L (3.5-5.1) L 08/02/16 05:25 Chloride 94 mEq/L (98-107) L 08/02/16 05:25 Carbon Dioxide 27.5 mEq/L (21.0-31.0) 08/02/16 05:25 Anion Gap 11.8 (7.0-16.0) 08/02/16 05:25 BUN 46 mg/dL (7-25) H 08/02/16 05:25 Creatinine 4.1 mg/dL (0.7-1.3) H* 08/02/16 05:25 Est GFR ( Amer) 20.0 ml/min (>90) 08/02/16 05:25 Est GFR (Non-Af Amer) 16.6 ml/min 08/02/16 05:25 BUN/Creatinine Ratio 11.2 08/02/16 05:25 Glucose 106 mg/dL (70-105) H 08/02/16 05:25 Calcium 8.9 mg/dL (8.6-10.3) 08/02/16 05:25 Phosphorus 5.5 mg/dL (2.5-5.0) H 07/19/16 09:50 Magnesium 2.0 mg/dL (1.9-2.7) 07/07/16 06:00 Iron 42 ug/dL (38-169) 06/28/16 04:38 TIBC 269 ug/dL (250-450) 06/28/16 04:38 Iron Saturation 16 % (15-55) 06/28/16 04:38 Unsaturated IBC 227 ug/dL (111-343) 06/28/16 04:38 Ferritin 150 ng/mL (30-400) 06/26/16 08:30 Total Bilirubin 0.8 mg/dL (0.3-1.0) 07/28/16 05:30 Direct Bilirubin 0.70 mg/dL (0.0-0.2) H 06/28/16 04:38 GGTP 14 IU/L (0-65) 06/28/16 04:38 AST 52 U/L (13-39) H 07/28/16 05:30 ALT 30 U/L (7-52) 07/28/16 05:30 Alkaline Phosphatase 38 U/L (34-104) 07/28/16 05:30 Ammonia 105 umol/L (16-53) H 07/02/16 06:40 Troponin I < 0.01 ng/mL (0.01-0.05) L 06/22/16 19:33 B-Natriuretic Peptide 668.0 pg/mL (5.0-100.0) H 06/22/16 19:33 Total Protein 7.8 gm/dL (6.0-8.3) 07/28/16 05:30 Albumin 2.7 gm/dL (4.2-5.5) L 07/28/16 05:30 Globulin 5.1 gm/dL 07/28/16 05:30 Albumin/Globulin Ratio 0.5 (1.0-1.8) L 07/28/16 05:30 Amylase 28 U/L (29-103) L 07/02/16 06:40 Lipase 31 U/L (11-82) 07/02/16 06:40 Urine Source CLEAN C 06/29/16 05:55 Urine Color YELLOW 06/29/16 05:55 Urine Clarity HAZY (CLEAR) 06/29/16 05:55 Urine pH 5.5 06/29/16 05:55 Ur Specific [place] 1.015 (1.005-1.030) 06/29/16 05:55 Urine Protein 30 mg/dL (NEGATIVE) H 06/29/16 05:55 Urine Glucose (UA) NEGATIVE mg/dL (NEGATIVE) 06/29/16 05:55 Urine Ketones NEGATIVE mg/dL (NEGATIVE) 06/29/16 05:55 Urine Blood NEGATIVE (NEGATIVE) 06/29/16 05:55 Urine Nitrate NEGATIVE (NEGATIVE) 06/29/16 05:55 Urine Bilirubin NEGATIVE (NEGATIVE) 06/29/16 05:55 Urine Urobilinogen 0.2 E.U./dL (0.2 - 1.0) 06/29/16 05:55 Ur Leukocyte Esterase TRACE (NEGATIVE) H 06/29/16 05:55 Urine RBC 0-2 /hpf (0-5) H 06/29/16 05:55 Urine WBC 6-10 /hpf (0-5) H 06/29/16 05:55 Ur Epithelial Cells FEW /lpf (FEW) 06/29/16 05:55 Urine Bacteria MANY /hpf (NONE SEEN) 06/29/16 05:55 Stool Occult Blood POSITIVE (NEGATIVE) 06/24/16 16:00 Random Vancomycin 13.4 ug/mL (5.0-40.0) 06/28/16 04:38 RPR NONREACTIVE (NONREACTIVE) 06/22/16 19:33 Hepatitis A IgM Ab Negative (Negative) 06/29/16 05:49 Hep Bs Antigen Negative (Negative) 06/29/16 05:49 Hep B Core IgM Ab Negative (Negative) 06/29/16 05:49 Hepatitis C Antibody >11.0 s/co ratio (0.0-0.9) H 06/29/16 05:49 Blood Type A POSITIVE 07/25/16 00:45 Antibody Screen NEGATIVE 07/25/16 00:45 Crossmatch See Detail 07/25/16 00:45 - Physical Exam Vitals and I&O: Vital Signs Temp 99 F 08/02/16 09:00 Pulse 120 08/02/16 09:00 Resp 18 08/02/16 09:00 BP 105/60 08/02/16 09:00 Pulse Ox 99 08/02/16 09:00 Intake & Output 08/01/16 08/02/16 08/02/16 18:59 06:59 18:59 Intake Total 500 200 Balance 500 200 Intake: Oral 500 200 Other: # Voids 1 Stool Characteristics Soft Formed Active Medications: Current Medications Acetaminophen (Tylenol) 650 mg PO Q6H PRN PRN Reason: temperature above 100F Stop: 09/28/16 16:14 Last Admin: 07/30/16 16:27 Dose: 650 mg Albuterol/Ipratropium (Duoneb Neb) 3 ml HHN Q2HR PRN PRN Reason: Shortness of Breath or Wheeze Stop: 09/08/16 09:51 Aspirin (Ecotrin) 325 mg PO DAILY MARQUISE Stop: 09/03/16 09:14 Last Admin: 08/02/16 09:26 Dose: 325 mg Calamine/Phenol (Calmoseptine) 1 appl TP QID PRN PRN Reason: Skin Irritation Stop: 09/08/16 18:33 Last Admin: 07/30/16 15:02 Dose: 1 appl Calamine/Phenol (Calmoseptine) 1 appl TP QID MARQUISE Stop: 09/08/16 20:59 Last Admin: 08/02/16 09:26 Dose: 1 appl Diphenhydramine HCl (Benadryl 50 Mg/Ml) 50 mg IM Q8HR PRN PRN Reason: Agitation Stop: 08/25/16 12:10 Docusate Sodium (Colace) 100 mg PO Q12HR MARQUISE Stop: 09/16/16 08:59 Last Admin: 08/02/16 09:26 Dose: Not Given Haloperidol Lactate (Haldol) 5 mg IM Q8HR PRN PRN Reason: Agitation Stop: 08/25/16 12:10 Lactic Acid (Lac-Hydrin Cream) 1 appl TP BID [facility] Stop: 09/12/16 08:59 Last Admin: 08/02/16 09:27 Dose: 1 appl Lactulose (Cephulac) 20 gm PO Q8HR MARQUISE Stop: 09/16/16 04:59 Last Admin: 08/02/16 05:31 Dose: 20 gm Morphine Sulfate (Morphine) 2 mg IV Q4H PRN PRN Reason: SEVERE PAIN Stop: 09/23/16 12:59 Last Admin: 08/02/16 05:09 Dose: 2 mg General: Alert, No acute distress HEENT: Atraumatic, Mucous membr. moist/pink Neck: Supple, +2 carotid pulse wo bruit Cardiovascular: Regular rate Lungs: Other (few rhonchi) Abdomen: Bowel sounds, Soft Extremities: Edema ((+2) bipedal edema) Neurological: Sensation intact Skin: no Rash - Procedures Procedures: Procedures Procedure Code Date ARTERY-VEIN NONAUTOGRAFT 21273 06/22/16 BLOOD TRANSFUSION SERVICE 13855 06/22/16 BYPASS L BRACH ART TO UP ARM VEIN W NONAUT SUB, OPEN [id number] 06/22/16 FLUOROSCOPY OF SUP VENA CAVA USING [facility] CONTRAST, GUIDANCE [id number] 06/22/16 INSERTION OF INFUSION DEV INTO SUP VENA CAVA, PERC APPROACH [id number] 06/22/[address] PL[address] CATHETER IN VEIN 20197 06/22/16 TRANSFUSE NONAUT RED BLOOD CELLS IN PERIPH VEIN, [facility] [id number] 06/22/16 Assessment/Plan - Problem List Patient Problems: All Active Problems Anemia (Acute) D64.9 ESRD (end stage renal disease) (Acute) ESRD (end stage renal disease) on dialysis (Acute) N18.6, Z99.2 ESRD (end stage renal disease) on dialysis (Acute) N18.6, Z99.[address] MED[address] EVALUATION PER DR FRY (Acute) - Assessment Assessment: esrd on hd persistent cellulitis b/l lower ext acute on chronic anemia possible gi bleed ohs chronic a. fib hypothyroid anasarca functional quadriplegia chronic venous stasis dermatitis acute decomp psychosis hypokalemia, hypomagnesemia s/p left avg - Plan Plan: Lab - Result Diagrams 07/19/16 09:50 Lab - Result Diagrams 07/22/16 05:21 Lab - Result Diagrams 07/24/16 05:00 Lab - Result Diagrams 07/28/16 05:30 07/28/16 05:30 07/24/16 05:00 07/20/16 05:50 07/19/16 09:50 latest hgb/hct were 7.5/22.3 schedule for HD today placement in progress replace K Lab - Result Diagrams 07/19/16 09:50 07/20/16 05:50 Lab - Result Diagrams 07/21/16 06:16 07/20/16 05:50 Lab - Result Diagrams 07/26/16 11:05 07/24/16 05:00 Lab - Result Diagrams 07/29/16 05:55 07/28/16 05:30
--- NOTE | 2016-08-02 14:24 | General Progress Note ---
Subjective - Review of Systems Service Date: 08/02/16 Subjective: c/o weakness Objective - Results Result Diagrams: 08/07/16 06:50 08/07/16 06:50 Recent Labs: Laboratory Last Values WBC 4.7 Th/cmm (4.8-10.8) L 08/02/16 05:25 RBC 2.59 Mil/cmm (4.30-5.70) L 08/02/16 05:25 Hgb 7.5 gm/dL (13.2-17.3) L* 08/02/16 05:25 Hct 22.3 % (39.0-49.0) L* 08/02/16 05:25 MCV 86.0 fl (80-99) 08/02/16 05:25 MCH 28.8 pg (26.0-30.0) 08/02/16 05:25 MCHC Differential 33.5 pg (28.0-36.0) 08/02/16 05:25 RDW 14.8 % (11.5-20.0) 08/02/16 05:25 Plt Count 114 Th/cmm (150-400) L 08/02/16 05:25 MPV 8.5 fl 08/02/16 05:25 Neutrophils % 56.8 % (40.0-80.0) 07/07/16 06:00 Band Neutrophils % 1 % (0-10) 07/28/16 05:30 Lymphocytes % 18.4 % (20.0-50.0) L 07/07/16 06:00 Monocytes % 13.8 % (2.0-10.0) H 07/07/16 06:00 Eosinophils % 11.0 % (0.0-5.0) H 07/07/16 06:00 Basophils % 0.0 % (0.0-2.0) 07/07/16 06:00 Neutrophils (Manual) 73 % (40-80) 08/02/16 05:25 Lymphocytes 11 % (20-50) L 08/02/16 05:25 Monocytes 6 % (2-10) 08/02/16 05:25 Eosinophils 9 % (0-5) H 08/02/16 05:25 Basophils 1 % (0-3) 08/02/16 05:25 Myelocytes 1 % 07/14/16 16:00 Hypochromia 1+ 07/20/16 23:30 Platelet Estimate DECREASED PLATELETS (NORMAL) 08/02/16 05:25 Platelet Morphology GIANT PLATELETS SEEN (NORMAL) 08/02/16 05:25 Polychromasia 1+ 07/20/16 23:30 Anisocytosis 1+ 08/02/16 05:25 Microcytosis 1+ 07/14/16 16:00 RBC Morph Micro Appear ABNORMAL (NORMAL) 08/02/16 05:25 PT 12.7 SECONDS (9.5-11.5) H 07/01/16 06:57 INR 1.26 (0.5-1.4) 07/01/16 06:57 PTT (Actin FS) 28.3 SECONDS (26.0-38.0) 06/28/16 04:38 Specimen Source art 06/22/16 20:03 Sample Site Right Radial 06/22/16 20:03 pH 7.49 (7.35-7.45) H 06/22/16 20:03 pCO2 34.0 mmHg (35.0-45.0) L 06/22/16 20:03 pO2 97.0 mmHg (80.0-100.0) 06/22/16 20:03 HCO3 25.9 mmol/L (20.0-26.0) 06/22/16 20:03 Base Excess 2.8 mmol/L (-3.0-3.0) 06/22/16 20:03 O2 Saturation 98.0 % (92.0-100.0) 06/22/16 20:03 Estuardo Test P 06/22/16 20:03 Vent Rate NA 06/22/16 20:03 Inspired O2 21 06/22/16 20:03 Tidal Volume NA 06/22/16 20:03 PEEP NA 06/22/16 20:03 Pressure (ins/psv/peep) NA 06/22/16 20:03 Critical Value RPINEIRA 06/22/16 20:03 Sodium 130 mEq/L (136-145) L 08/02/16 05:25 Potassium 3.3 mEq/L (3.5-5.1) L 08/02/16 05:25 Chloride 94 mEq/L (98-107) L 08/02/16 05:25 Carbon Dioxide 27.5 mEq/L (21.0-31.0) 08/02/16 05:25 Anion Gap 11.8 (7.0-16.0) 08/02/16 05:25 BUN 46 mg/dL (7-25) H 08/02/16 05:25 Creatinine 4.1 mg/dL (0.7-1.3) H* 08/02/16 05:25 Est GFR ( Amer) 20.0 ml/min (>90) 08/02/16 05:25 Est GFR (Non-Af Amer) 16.6 ml/min 08/02/16 05:25 BUN/Creatinine Ratio 11.2 08/02/16 05:25 Glucose 106 mg/dL (70-105) H 08/02/16 05:25 Calcium 8.9 mg/dL (8.6-10.3) 08/02/16 05:25 Phosphorus 5.5 mg/dL (2.5-5.0) H 07/19/16 09:50 Magnesium 2.0 mg/dL (1.9-2.7) 07/07/16 06:00 Iron 42 ug/dL (38-169) 06/28/16 04:38 TIBC 269 ug/dL (250-450) 06/28/16 04:38 Iron Saturation 16 % (15-55) 06/28/16 04:38 Unsaturated IBC 227 ug/dL (111-343) 06/28/16 04:38 Ferritin 150 ng/mL (30-400) 06/26/16 08:30 Total Bilirubin 0.8 mg/dL (0.3-1.0) 07/28/16 05:30 Direct Bilirubin 0.70 mg/dL (0.0-0.2) H 06/28/16 04:38 GGTP 14 IU/L (0-65) 06/28/16 04:38 AST 52 U/L (13-39) H 07/28/16 05:30 ALT 30 U/L (7-52) 07/28/16 05:30 Alkaline Phosphatase 38 U/L (34-104) 07/28/16 05:30 Ammonia 105 umol/L (16-53) H 07/02/16 06:40 Troponin I < 0.01 ng/mL (0.01-0.05) L 06/22/16 19:33 B-Natriuretic Peptide 668.0 pg/mL (5.0-100.0) H 06/22/16 19:33 Total Protein 7.8 gm/dL (6.0-8.3) 07/28/16 05:30 Albumin 2.7 gm/dL (4.2-5.5) L 07/28/16 05:30 Globulin 5.1 gm/dL 07/28/16 05:30 Albumin/Globulin Ratio 0.5 (1.0-1.8) L 07/28/16 05:30 Amylase 28 U/L (29-103) L 07/02/16 06:40 Lipase 31 U/L (11-82) 07/02/16 06:40 Urine Source CLEAN C 06/29/16 05:55 Urine Color YELLOW 06/29/16 05:55 Urine Clarity HAZY (CLEAR) 06/29/16 05:55 Urine pH 5.5 06/29/16 05:55 Ur Specific [place] 1.015 (1.005-1.030) 06/29/16 05:55 Urine Protein 30 mg/dL (NEGATIVE) H 06/29/16 05:55 Urine Glucose (UA) NEGATIVE mg/dL (NEGATIVE) 06/29/16 05:55 Urine Ketones NEGATIVE mg/dL (NEGATIVE) 06/29/16 05:55 Urine Blood NEGATIVE (NEGATIVE) 06/29/16 05:55 Urine Nitrate NEGATIVE (NEGATIVE) 06/29/16 05:55 Urine Bilirubin NEGATIVE (NEGATIVE) 06/29/16 05:55 Urine Urobilinogen 0.2 E.U./dL (0.2 - 1.0) 06/29/16 05:55 Ur Leukocyte Esterase TRACE (NEGATIVE) H 06/29/16 05:55 Urine RBC 0-2 /hpf (0-5) H 06/29/16 05:55 Urine WBC 6-10 /hpf (0-5) H 06/29/16 05:55 Ur Epithelial Cells FEW /lpf (FEW) 06/29/16 05:55 Urine Bacteria MANY /hpf (NONE SEEN) 06/29/16 05:55 Stool Occult Blood POSITIVE (NEGATIVE) 06/24/16 16:00 Random Vancomycin 13.4 ug/mL (5.0-40.0) 06/28/16 04:38 RPR NONREACTIVE (NONREACTIVE) 06/22/16 19:33 Hepatitis A IgM Ab Negative (Negative) 06/29/16 05:49 Hep Bs Antigen Negative (Negative) 06/29/16 05:49 Hep B Core IgM Ab Negative (Negative) 06/29/16 05:49 Hepatitis C Antibody >11.0 s/co ratio (0.0-0.9) H 06/29/16 05:49 Blood Type A POSITIVE 07/25/16 00:45 Antibody Screen NEGATIVE 07/25/16 00:45 Crossmatch See Detail 07/25/16 00:45 - Physical Exam Vitals and I&O: Vital Signs Temp 99 F 08/02/16 09:00 Pulse 120 08/02/16 09:00 Resp 18 08/02/16 09:00 BP 105/60 08/02/16 09:00 Pulse Ox 99 08/02/16 09:00 Intake & Output 08/01/16 08/02/16 08/02/16 18:59 06:59 18:59 Intake Total 500 200 Balance 500 200 Intake: Oral 500 200 Other: # Voids 1 Stool Characteristics Soft Formed Active Medications: Current Medications Acetaminophen (Tylenol) 650 mg PO Q6H PRN PRN Reason: temperature above 100F Stop: 09/28/16 16:14 Last Admin: 07/30/16 16:27 Dose: 650 mg Albuterol/Ipratropium (Duoneb Neb) 3 ml HHN Q2HR PRN PRN Reason: Shortness of Breath or Wheeze Stop: 09/08/16 09:51 Aspirin (Ecotrin) 325 mg PO DAILY [facility] Stop: 09/03/16 09:14 Last Admin: 08/02/16 09:26 Dose: 325 mg Calamine/Phenol (Calmoseptine) 1 appl TP QID PRN PRN Reason: Skin Irritation Stop: 09/08/16 18:33 Last Admin: 07/30/16 15:02 Dose: 1 appl Calamine/Phenol (Calmoseptine) 1 appl TP QID [facility] Stop: 09/08/16 20:59 Last Admin: 08/02/16 09:26 Dose: 1 appl Diphenhydramine HCl (Benadryl 50 Mg/Ml) 50 mg IM Q8HR PRN PRN Reason: Agitation Stop: 08/25/16 12:10 Docusate Sodium (Colace) 100 mg PO Q12HR [facility] Stop: 09/16/16 08:59 Last Admin: 08/02/16 09:26 Dose: Not Given Epoetin Bernard[place] (Epogen) 10,000 units SUBQ TuThSa [facility] Stop: 10/01/16 14:14 Haloperidol Lactate (Haldol) 5 mg IM Q8HR PRN PRN Reason: Agitation Stop: 08/25/16 12:10 Lactic Acid (Lac-Hydrin Cream) 1 appl TP BID [facility] Stop: 09/12/16 08:59 Last Admin: 08/02/16 09:27 Dose: 1 appl Lactulose (Cephulac) 20 gm PO Q8HR [facility] Stop: 09/16/16 04:59 Last Admin: 08/02/16 05:31 Dose: 20 gm Morphine Sulfate (Morphine) 2 mg IV Q4H PRN PRN Reason: SEVERE PAIN Stop: 09/23/16 12:59 Last Admin: 08/02/16 05:09 Dose: 2 mg General: Cooperative, No acute distress, no Moderate distress HEENT: Atraumatic Neck: Supple Cardiovascular: Regular rate, Rubs Abdomen: Bowel sounds - Procedures Procedures: Procedures Procedure Code Date ARTERY-VEIN NONAUTOGRAFT 28390 06/22/16 BLOOD TRANSFUSION SERVICE 50590 06/22/16 BYPASS L BRACH ART TO UP ARM VEIN W NONAUT SUB, OPEN [id number] 06/22/16 FLUOROSCOPY OF SUP VENA CAVA USING [facility] CONTRAST, GUIDANCE [id number] 06/22/16 INSERTION OF INFUSION DEV INTO SUP VENA CAVA, PERC APPROACH [id number] 06/22/16 PLACE CATHETER IN VEIN 22728 06/22/16 TRANSFUSE NONAUT RED BLOOD CELLS IN PERIPH VEIN, PERC 08714T5 06/22/16 Assessment/Plan - Problem List Patient Problems: All Active Problems Anemia (Acute) D64.9 ESRD (end stage renal disease) (Acute) ESRD (end stage renal disease) on dialysis (Acute) N18.6, Z99.2 ESRD (end stage renal disease) on dialysis (Acute) N18.6, Z99.[address] FRY (Acute) - Assessment Assessment: 1. Cellulitis of legs. 2. Lymphedema of legs. 3. CKD 5 on HD. 4. Morbid obesity. 5 anemia 6 gi bleed 7 psychosis - Plan Plan: ivabx follow up labs awaiting placement blood transfusion during dialysis
[2016-08-02] MEDS: Epoetin Alfa 20000 Units/mL Vial SUBQ SCH (16:01)
[2016-08-03] MEDS: Lactulose 10 Gm/15 mL 30mL UDC PO SCH ×2 (07:57→21:42)
--- NOTE | 2016-08-03 09:49 | General Progress Note ---
Subjective - Review of Systems Service Date: 08/03/16 Subjective: no new changes, comfortable Objective - Results Result Diagrams: 08/02/16 05:25 08/02/16 05:25 Recent Labs: Laboratory Last Values WBC 4.7 Th/cmm (4.8-10.8) L 08/02/16 05:25 RBC 2.59 Mil/cmm (4.30-5.70) L 08/02/16 05:25 Hgb 7.5 gm/dL (13.2-17.3) L* 08/02/16 05:25 Hct 22.3 % (39.0-49.0) L* 08/02/16 05:25 MCV 86.0 fl (80-99) 08/02/16 05:25 MCH 28.8 pg (26.0-30.0) 08/02/16 05:25 MCHC Differential 33.5 pg (28.0-36.0) 08/02/16 05:25 RDW 14.8 % (11.5-20.0) 08/02/16 05:25 Plt Count 114 Th/cmm (150-400) L 08/02/16 05:25 MPV 8.5 fl 08/02/16 05:25 Neutrophils % 56.8 % (40.0-80.0) 07/07/16 06:00 Band Neutrophils % 1 % (0-10) 07/28/16 05:30 Lymphocytes % 18.4 % (20.0-50.0) L 07/07/16 06:00 Monocytes % 13.8 % (2.0-10.0) H 07/07/16 06:00 Eosinophils % 11.0 % (0.0-5.0) H 07/07/16 06:00 Basophils % 0.0 % (0.0-2.0) 07/07/16 06:00 Neutrophils (Manual) 73 % (40-80) 08/02/16 05:25 Lymphocytes 11 % (20-50) L 08/02/16 05:25 Monocytes 6 % (2-10) 08/02/16 05:25 Eosinophils 9 % (0-5) H 08/02/16 05:25 Basophils 1 % (0-3) 08/02/16 05:25 Myelocytes 1 % 07/14/16 16:00 Hypochromia 1+ 07/20/16 23:30 Platelet Estimate DECREASED PLATELETS (NORMAL) 08/02/16 05:25 Platelet Morphology GIANT PLATELETS SEEN (NORMAL) 08/02/16 05:25 Polychromasia 1+ 07/20/16 23:30 Anisocytosis 1+ 08/02/16 05:25 Microcytosis 1+ 07/14/16 16:00 RBC Morph Micro Appear ABNORMAL (NORMAL) 08/02/16 05:25 PT 12.7 SECONDS (9.5-11.5) H 07/01/16 06:57 INR 1.26 (0.5-1.4) 07/01/16 06:57 PTT (Actin FS) 28.3 SECONDS (26.0-38.0) 06/28/16 04:38 Specimen Source art 06/22/16 20:03 Sample Site Right Radial 06/22/16 20:03 pH 7.49 (7.35-7.45) H 06/22/16 20:03 pCO2 34.0 mmHg (35.0-45.0) L 06/22/16 20:03 pO2 97.0 mmHg (80.0-100.0) 06/22/16 20:03 HCO3 25.9 mmol/L (20.0-26.0) 06/22/16 20:03 Base Excess 2.8 mmol/L (-3.0-3.0) 06/22/16 20:03 O2 Saturation 98.0 % (92.0-100.0) 06/22/16 20:03 Estuardo Test P 06/22/16 20:03 Vent Rate NA 06/22/16 20:03 Inspired O2 21 06/22/16 20:03 Tidal Volume NA 06/22/16 20:03 PEEP NA 06/22/16 20:03 Pressure (ins/psv/peep) NA 06/22/16 20:03 Critical Value RPINEIRA 06/22/16 20:03 Sodium 130 mEq/L (136-145) L 08/02/16 05:25 Potassium 3.3 mEq/L (3.5-5.1) L 08/02/16 05:25 Chloride 94 mEq/L (98-107) L 08/02/16 05:25 Carbon Dioxide 27.5 mEq/L (21.0-31.0) 08/02/16 05:25 Anion Gap 11.8 (7.0-16.0) 08/02/16 05:25 BUN 46 mg/dL (7-25) H 08/02/16 05:25 Creatinine 4.1 mg/dL (0.7-1.3) H* 08/02/16 05:25 Est GFR ( Amer) 20.0 ml/min (>90) 08/02/16 05:25 Est GFR (Non-Af Amer) 16.6 ml/min 08/02/16 05:25 BUN/Creatinine Ratio 11.2 08/02/16 05:25 Glucose 106 mg/dL (70-105) H 08/02/16 05:25 Calcium 8.9 mg/dL (8.6-10.3) 08/02/16 05:25 Phosphorus 5.5 mg/dL (2.5-5.0) H 07/19/16 09:50 Magnesium 2.0 mg/dL (1.9-2.7) 07/07/16 06:00 Iron 42 ug/dL (38-169) 06/28/16 04:38 TIBC 269 ug/dL (250-450) 06/28/16 04:38 Iron Saturation 16 % (15-55) 06/28/16 04:38 Unsaturated IBC 227 ug/dL (111-343) 06/28/16 04:38 Ferritin 150 ng/mL (30-400) 06/26/16 08:30 Total Bilirubin 0.8 mg/dL (0.3-1.0) 07/28/16 05:30 Direct Bilirubin 0.70 mg/dL (0.0-0.2) H 06/28/16 04:38 GGTP 14 IU/L (0-65) 06/28/16 04:38 AST 52 U/L (13-39) H 07/28/16 05:30 ALT 30 U/L (7-52) 07/28/16 05:30 Alkaline Phosphatase 38 U/L (34-104) 07/28/16 05:30 Ammonia 105 umol/L (16-53) H 07/02/16 06:40 Troponin I < 0.01 ng/mL (0.01-0.05) L 06/22/16 19:33 B-Natriuretic Peptide 668.0 pg/mL (5.0-100.0) H 06/22/16 19:33 Total Protein 7.8 gm/dL (6.0-8.3) 07/28/16 05:30 Albumin 2.7 gm/dL (4.2-5.5) L 07/28/16 05:30 Globulin 5.1 gm/dL 07/28/16 05:30 Albumin/Globulin Ratio 0.5 (1.0-1.8) L 07/28/16 05:30 Amylase 28 U/L (29-103) L 07/02/16 06:40 Lipase 31 U/L (11-82) 07/02/16 06:40 Urine Source CLEAN C 06/29/16 05:55 Urine Color YELLOW 06/29/16 05:55 Urine Clarity HAZY (CLEAR) 06/29/16 05:55 Urine pH 5.5 06/29/16 05:55 Ur Specific [place] 1.015 (1.005-1.030) 06/29/16 05:55 Urine Protein 30 mg/dL (NEGATIVE) H 06/29/16 05:55 Urine Glucose (UA) NEGATIVE mg/dL (NEGATIVE) 06/29/16 05:55 Urine Ketones NEGATIVE mg/dL (NEGATIVE) 06/29/16 05:55 Urine Blood NEGATIVE (NEGATIVE) 06/29/16 05:55 Urine Nitrate NEGATIVE (NEGATIVE) 06/29/16 05:55 Urine Bilirubin NEGATIVE (NEGATIVE) 06/29/16 05:55 Urine Urobilinogen 0.2 E.U./dL (0.2 - 1.0) 06/29/16 05:55 Ur Leukocyte Esterase TRACE (NEGATIVE) H 06/29/16 05:55 Urine RBC 0-2 /hpf (0-5) H 06/29/16 05:55 Urine WBC 6-10 /hpf (0-5) H 06/29/16 05:55 Ur Epithelial Cells FEW /lpf (FEW) 06/29/16 05:55 Urine Bacteria MANY /hpf (NONE SEEN) 06/29/16 05:55 Stool Occult Blood POSITIVE (NEGATIVE) 06/24/16 16:00 Random Vancomycin 13.4 ug/mL (5.0-40.0) 06/28/16 04:38 RPR NONREACTIVE (NONREACTIVE) 06/22/16 19:33 Hepatitis A IgM Ab Negative (Negative) 06/29/16 05:49 Hep Bs Antigen Negative (Negative) 06/29/16 05:49 Hep B Core IgM Ab Negative (Negative) 06/29/16 05:49 Hepatitis C Antibody >11.0 s/co ratio (0.0-0.9) H 06/29/16 05:49 Blood Type A POSITIVE 07/25/16 00:45 Antibody Screen NEGATIVE 07/25/16 00:45 Crossmatch See Detail 07/25/16 00:45 - Physical Exam Vitals and I&O: Vital Signs Temp 99.6 F 08/03/16 04:00 Pulse 120 08/03/16 04:00 Resp 18 08/03/16 04:00 BP 109/80 08/03/16 04:00 Pulse Ox 98 08/03/16 04:00 Intake & Output 08/02/16 08/03/16 08/03/16 18:59 06:59 18:59 Intake Total 700 300 Output Total 2500 60 Balance -1800 240 Intake: Oral 700 300 Output: Urine 60 Hemodialysis 2500 Other: # Voids 2 # Bowel Movements 1 Stool Characteristics Soft Soft Formed Formed Active Medications: Current Medications Acetaminophen (Tylenol) 650 mg PO Q6H PRN PRN Reason: temperature above 100F Stop: 09/28/16 16:14 Last Admin: 07/30/16 16:27 Dose: 650 mg Albuterol/Ipratropium (Duoneb Neb) 3 ml HHN Q2HR PRN PRN Reason: Shortness of Breath or Wheeze Stop: 09/08/16 09:51 Aspirin (Ecotrin) 325 mg PO DAILY [facility] Stop: 09/03/16 09:14 Last Admin: 08/02/16 09:26 Dose: 325 mg Calamine/Phenol (Calmoseptine) 1 appl TP QID PRN PRN Reason: Skin Irritation Stop: 09/08/16 18:33 Last Admin: 07/30/16 15:02 Dose: 1 appl Calamine/Phenol (Calmoseptine) 1 appl TP QID [facility] Stop: 09/08/16 20:59 Last Admin: 08/02/16 22:09 Dose: Not Given Diphenhydramine HCl (Benadryl 50 Mg/Ml) 50 mg IM Q8HR PRN PRN Reason: Agitation Stop: 08/25/16 12:10 Docusate Sodium (Colace) 100 mg PO Q12HR [facility] Stop: 09/16/16 08:59 Last Admin: 08/02/16 22:09 Dose: Not Given Epoetin Bernard[place] (Epogen) 10,000 units SUBQ TuThSa [facility] Stop: 10/01/16 14:14 Last Admin: 08/02/16 16:01 Dose: 10,000 units Haloperidol Lactate (Haldol) 5 mg IM Q8HR PRN PRN Reason: Agitation Stop: 08/25/16 12:10 Lactic Acid (Lac-Hydrin Cream) 1 appl TP BID [facility] Stop: 09/12/16 08:59 Last Admin: 08/02/16 16:03 Dose: 1 appl Lactulose (Cephulac) 20 gm PO Q8HR [facility] Stop: 09/16/16 04:59 Last Admin: 08/03/16 07:57 Dose: Not Given Morphine Sulfate (Morphine) 2 mg IV Q4H PRN PRN Reason: SEVERE PAIN Stop: 09/23/16 12:59 Last Admin: 08/02/16 22:39 Dose: 2 mg General: Alert, No acute distress HEENT: Atraumatic, Mucous membr. moist/pink Neck: Supple, +2 carotid pulse wo bruit Cardiovascular: Regular rate, Normal S1, Normal S2 Lungs: Other (few rhonchi) Abdomen: Bowel sounds, Soft Extremities: Edema ((+) 2 bipedal edema) Neurological: Sensation intact Skin: no Rash - Procedures Procedures: Procedures Procedure Code Date ARTERY-VEIN NONAUTOGRAFT 22296 06/22/16 BLOOD TRANSFUSION SERVICE 72626 06/22/16 BYPASS L BRACH ART TO UP ARM VEIN W NONAUT SUB, OPEN [id number] 06/22/16 FLUOROSCOPY OF SUP VENA CAVA USING [facility] CONTRAST, GUIDANCE [id number] 06/22/16 INSERTION OF INFUSION DEV INTO SUP VENA CAVA, PERC APPROACH [id number] 06/22/[address] PL[address] CATHETER IN VEIN 75228 06/22/16 TRANSFUSE NONAUT RED BLOOD CELLS IN PERIPH VEIN, PERC [id number] 06/22/16 Assessment/Plan - Problem List Patient Problems: All Active Problems Anemia (Acute) D64.9 ESRD (end stage renal disease) (Acute) ESRD (end stage renal disease) on dialysis (Acute) N18.6, Z99.2 ESRD (end stage renal disease) on dialysis (Acute) N18.6, Z99.[address] MED[address] EV[address]UATION [address] DR FRY (Acute) - Assessment Assessment: esrd on hd persistent cellulitis b/l lower ext acute on chronic anemia possible gi bleed ohs chronic a. fib hypothyroid anasarca functional quadriplegia chronic venous stasis dermatitis acute decomp psychosis hypokalemia, hypomagnesemia s/p left avg - Plan Plan: Lab - Result Diagrams 07/19/16 09:50 Lab - Result Diagrams 07/22/16 05:21 Lab - Result Diagrams 07/24/16 05:00 Lab - Result Diagrams 07/28/16 05:30 07/28/16 05:30 07/24/16 05:00 07/20/16 05:50 07/19/16 09:50 latest hgb/hct were 7.5/22.3 schedule for HD in am placement in progress replace K started epogen Lab - Result Diagrams 07/19/16 09:50 07/20/16 05:50 Lab - Result Diagrams 07/21/16 06:16 07/20/16 05:50 Lab - Result Diagrams 07/26/16 11:05 07/24/16 05:00 Lab - Result Diagrams 07/29/16 05:55 07/28/16 05:30
[2016-08-03] MEDS: Morphine Sulfate 2 mg/mL 1mL Syr IV PRN ×2 (13:20→21:43)
--- NOTE | 2016-08-03 15:13 | General Progress Note ---
Subjective - Review of Systems Subjective: c/o wekness Objective - Results Result Diagrams: 08/02/16 05:25 08/02/16 05:25 Recent Labs: Laboratory Last Values WBC 4.7 Th/cmm (4.8-10.8) L 08/02/16 05:25 RBC 2.59 Mil/cmm (4.30-5.70) L 08/02/16 05:25 Hgb 7.5 gm/dL (13.2-17.3) L* 08/02/16 05:25 Hct 22.3 % (39.0-49.0) L* 08/02/16 05:25 MCV 86.0 fl (80-99) 08/02/16 05:25 MCH 28.8 pg (26.0-30.0) 08/02/16 05:25 MCHC Differential 33.5 pg (28.0-36.0) 08/02/16 05:25 RDW 14.8 % (11.5-20.0) 08/02/16 05:25 Plt Count 114 Th/cmm (150-400) L 08/02/16 05:25 MPV 8.5 fl 08/02/16 05:25 Neutrophils % 56.8 % (40.0-80.0) 07/07/16 06:00 Band Neutrophils % 1 % (0-10) 07/28/16 05:30 Lymphocytes % 18.4 % (20.0-50.0) L 07/07/16 06:00 Monocytes % 13.8 % (2.0-10.0) H 07/07/16 06:00 Eosinophils % 11.0 % (0.0-5.0) H 07/07/16 06:00 Basophils % 0.0 % (0.0-2.0) 07/07/16 06:00 Neutrophils (Manual) 73 % (40-80) 08/02/16 05:25 Lymphocytes 11 % (20-50) L 08/02/16 05:25 Monocytes 6 % (2-10) 08/02/16 05:25 Eosinophils 9 % (0-5) H 08/02/16 05:25 Basophils 1 % (0-3) 08/02/16 05:25 Myelocytes 1 % 07/14/16 16:00 Hypochromia 1+ 07/20/16 23:30 Platelet Estimate DECREASED PLATELETS (NORMAL) 08/02/16 05:25 Platelet Morphology GIANT PLATELETS SEEN (NORMAL) 08/02/16 05:25 Polychromasia 1+ 07/20/16 23:30 Anisocytosis 1+ 08/02/16 05:25 Microcytosis 1+ 07/14/16 16:00 RBC Morph Micro Appear ABNORMAL (NORMAL) 08/02/16 05:25 PT 12.7 SECONDS (9.5-11.5) H 07/01/16 06:57 INR 1.26 (0.5-1.4) 07/01/16 06:57 PTT (Actin FS) 28.3 SECONDS (26.0-38.0) 06/28/16 04:38 Specimen Source art 06/22/16 20:03 Sample Site Right Radial 06/22/16 20:03 pH 7.49 (7.35-7.45) H 06/22/16 20:03 pCO2 34.0 mmHg (35.0-45.0) L 06/22/16 20:03 pO2 97.0 mmHg (80.0-100.0) 06/22/16 20:03 HCO3 25.9 mmol/L (20.0-26.0) 06/22/16 20:03 Base Excess 2.8 mmol/L (-3.0-3.0) 06/22/16 20:03 O2 Saturation 98.0 % (92.0-100.0) 06/22/16 20:03 Estuardo Test P 06/22/16 20:03 Vent Rate NA 06/22/16 20:03 Inspired O2 21 06/22/16 20:03 Tidal Volume NA 06/22/16 20:03 PEEP NA 06/22/16 20:03 Pressure (ins/psv/peep) NA 06/22/16 20:03 Critical Value RPINEIRA 06/22/16 20:03 Sodium 130 mEq/L (136-145) L 08/02/16 05:25 Potassium 3.3 mEq/L (3.5-5.1) L 08/02/16 05:25 Chloride 94 mEq/L (98-107) L 08/02/16 05:25 Carbon Dioxide 27.5 mEq/L (21.0-31.0) 08/02/16 05:25 Anion Gap 11.8 (7.0-16.0) 08/02/16 05:25 BUN 46 mg/dL (7-25) H 08/02/16 05:25 Creatinine 4.1 mg/dL (0.7-1.3) H* 08/02/16 05:25 Est GFR ( Amer) 20.0 ml/min (>90) 08/02/16 05:25 Est GFR (Non-Af Amer) 16.6 ml/min 08/02/16 05:25 BUN/Creatinine Ratio 11.2 08/02/16 05:25 Glucose 106 mg/dL (70-105) H 08/02/16 05:25 Calcium 8.9 mg/dL (8.6-10.3) 08/02/16 05:25 Phosphorus 5.5 mg/dL (2.5-5.0) H 07/19/16 09:50 Magnesium 2.0 mg/dL (1.9-2.7) 07/07/16 06:00 Iron 42 ug/dL (38-169) 06/28/16 04:38 TIBC 269 ug/dL (250-450) 06/28/16 04:38 Iron Saturation 16 % (15-55) 06/28/16 04:38 Unsaturated IBC 227 ug/dL (111-343) 06/28/16 04:38 Ferritin 150 ng/mL (30-400) 06/26/16 08:30 Total Bilirubin 0.8 mg/dL (0.3-1.0) 07/28/16 05:30 Direct Bilirubin 0.70 mg/dL (0.0-0.2) H 06/28/16 04:38 GGTP 14 IU/L (0-65) 06/28/16 04:38 AST 52 U/L (13-39) H 07/28/16 05:30 ALT 30 U/L (7-52) 07/28/16 05:30 Alkaline Phosphatase 38 U/L (34-104) 07/28/16 05:30 Ammonia 105 umol/L (16-53) H 07/02/16 06:40 Troponin I < 0.01 ng/mL (0.01-0.05) L 06/22/16 19:33 B-Natriuretic Peptide 668.0 pg/mL (5.0-100.0) H 06/22/16 19:33 Total Protein 7.8 gm/dL (6.0-8.3) 07/28/16 05:30 Albumin 2.7 gm/dL (4.2-5.5) L 07/28/16 05:30 Globulin 5.1 gm/dL 07/28/16 05:30 Albumin/Globulin Ratio 0.5 (1.0-1.8) L 07/28/16 05:30 Amylase 28 U/L (29-103) L 07/02/16 06:40 Lipase 31 U/L (11-82) 07/02/16 06:40 Urine Source CLEAN C 06/29/16 05:55 Urine Color YELLOW 06/29/16 05:55 Urine Clarity HAZY (CLEAR) 06/29/16 05:55 Urine pH 5.5 06/29/16 05:55 Ur Specific [place] 1.015 (1.005-1.030) 06/29/16 05:55 Urine Protein 30 mg/dL (NEGATIVE) H 06/29/16 05:55 Urine Glucose (UA) NEGATIVE mg/dL (NEGATIVE) 06/29/16 05:55 Urine Ketones NEGATIVE mg/dL (NEGATIVE) 06/29/16 05:55 Urine Blood NEGATIVE (NEGATIVE) 06/29/16 05:55 Urine Nitrate NEGATIVE (NEGATIVE) 06/29/16 05:55 Urine Bilirubin NEGATIVE (NEGATIVE) 06/29/16 05:55 Urine Urobilinogen 0.2 E.U./dL (0.2 - 1.0) 06/29/16 05:55 Ur Leukocyte Esterase TRACE (NEGATIVE) H 06/29/16 05:55 Urine RBC 0-2 /hpf (0-5) H 06/29/16 05:55 Urine WBC 6-10 /hpf (0-5) H 06/29/16 05:55 Ur Epithelial Cells FEW /lpf (FEW) 06/29/16 05:55 Urine Bacteria MANY /hpf (NONE SEEN) 06/29/16 05:55 Stool Occult Blood POSITIVE (NEGATIVE) 06/24/16 16:00 Random Vancomycin 13.4 ug/mL (5.0-40.0) 06/28/16 04:38 RPR NONREACTIVE (NONREACTIVE) 06/22/16 19:33 Hepatitis A IgM Ab Negative (Negative) 06/29/16 05:49 Hep Bs Antigen Negative (Negative) 06/29/16 05:49 Hep B Core IgM Ab Negative (Negative) 06/29/16 05:49 Hepatitis C Antibody >11.0 s/co ratio (0.0-0.9) H 06/29/16 05:49 Blood Type A POSITIVE 07/25/16 00:45 Antibody Screen NEGATIVE 07/25/16 00:45 Crossmatch See Detail 07/25/16 00:45 - Physical Exam Vitals and I&O: Vital Signs Temp 99.6 F 08/03/16 04:00 Pulse 120 08/03/16 04:00 Resp 18 08/03/16 04:00 BP 109/80 08/03/16 04:00 Pulse Ox 98 08/03/16 04:00 Intake & Output 08/02/16 08/03/16 08/03/16 18:59 06:59 18:59 Intake Total 700 300 Output Total 2500 60 Balance -1800 240 Intake: Oral 700 300 Output: Urine 60 Hemodialysis 2500 Other: # Voids 2 # Bowel Movements 1 Stool Characteristics Soft Soft Formed Formed Active Medications: Current Medications Acetaminophen (Tylenol) 650 mg PO Q6H PRN PRN Reason: temperature above 100F Stop: 09/28/16 16:14 Last Admin: 07/30/16 16:27 Dose: 650 mg Albuterol/Ipratropium (Duoneb Neb) 3 ml HHN Q2HR PRN PRN Reason: Shortness of Breath or Wheeze Stop: 09/08/16 09:51 Aspirin (Ecotrin) 325 mg PO DAILY [facility] Stop: 09/03/16 09:14 Last Admin: 08/02/16 09:26 Dose: 325 mg Calamine/Phenol (Calmoseptine) 1 appl TP QID PRN PRN Reason: Skin Irritation Stop: 09/08/16 18:33 Last Admin: 07/30/16 15:02 Dose: 1 appl Calamine/Phenol (Calmoseptine) 1 appl TP QID [facility] Stop: 09/08/16 20:59 Last Admin: 08/02/16 22:09 Dose: Not Given Diphenhydramine HCl (Benadryl 50 Mg/Ml) 50 mg IM Q8HR PRN PRN Reason: Agitation Stop: 08/25/16 12:10 Docusate Sodium (Colace) 100 mg PO Q12HR [facility] Stop: 09/16/16 08:59 Last Admin: 08/02/16 22:09 Dose: Not Given Epoetin Bernardino (Epogen) 10,000 units SUBQ TuThSa [facility] Stop: 10/01/16 14:14 Last Admin: 08/02/16 16:01 Dose: 10,000 units Haloperidol Lactate (Haldol) 5 mg IM Q8HR PRN PRN Reason: Agitation Stop: 08/25/16 12:10 Lactic Acid (Lac-Hydrin Cream) 1 appl TP BID [facility] Stop: 09/12/16 08:59 Last Admin: 08/02/16 16:03 Dose: 1 appl Lactulose (Cephulac) 20 gm PO Q8HR [facility] Stop: 09/16/16 04:59 Last Admin: 08/03/16 07:57 Dose: Not Given Morphine Sulfate (Morphine) 2 mg IV Q4H PRN PRN Reason: SEVERE PAIN Stop: 09/23/16 12:59 Last Admin: 08/03/16 13:20 Dose: 2 mg - Procedures Procedures: Procedures Procedure Code Date ARTERY-VEIN NONAUTOGRAFT 51153 06/22/16 BLOOD TRANSFUSION SERVICE 44329 06/22/16 BYPASS L BRACH ART TO UP ARM VEIN W NONAUT SUB, OPEN [id number] 06/22/16 FLUOROSCOPY OF SUP VENA CAVA USING [facility] CONTRAST, GUIDANCE [id number] 06/22/16 INSERTION OF INFUSION DEV INTO SUP VENA CAVA, PERC APPROACH [id number] 06/22/16 PLACE CATHETER IN VEIN 96173 06/22/16 TRANSFUSE NONAUT RED BLOOD CELLS IN PERIPH VEIN, PERC [id number] 06/22/16 Assessment/Plan - Problem List Patient Problems: All Active Problems Anemia (Acute) D64.9 ESRD (end stage renal disease) (Acute) ESRD (end stage renal disease) on dialysis (Acute) N18.6, Z99.2 ESRD (end stage renal disease) on dialysis (Acute) N18.6, Z99.[address] FRY (Acute) - Assessment Assessment: 1. Cellulitis of legs. 2. Lymphedema of legs. 3. CKD 5 on HD. 4. Morbid obesity. 5 anemia 6 gi bleed 7 psychosis - Plan Plan: ivabx follow up labs awaiting placement blood transfusion during dialysis
[2016-08-04] MEDS: Menthol/Zinc Oxide Oint 113gm Tube TP SCH ×5 (00:35→21:10)
[2016-08-04] MEDS: Lactulose 10 Gm/15 mL 30mL UDC PO SCH ×3 (05:00→21:46)
[2016-08-04 06:54] LABS: ANION GAP 10.3 (7.0-16.0); CALCIUM SERUM 8.8 mg/dL (8.6-10.3); CARBON DIOXIDE 28.3 mEq/L (21.0-31.0); MAGNESIUM 1.9 mg/dL (1.9-2.7); POTASSIUM SERUM 3.6 mEq/L (3.5-5.1)
--- NOTE | 2016-08-04 08:49 | General Progress Note ---
Subjective - Review of Systems Subjective: c/o wekness Objective - Results Result Diagrams: 08/02/16 05:25 08/04/16 05:45 Recent Labs: Laboratory Last Values WBC 4.7 Th/cmm (4.8-10.8) L 08/02/16 05:25 RBC 2.59 Mil/cmm (4.30-5.70) L 08/02/16 05:25 Hgb 7.5 gm/dL (13.2-17.3) L* 08/02/16 05:25 Hct 22.3 % (39.0-49.0) L* 08/02/16 05:25 MCV 86.0 fl (80-99) 08/02/16 05:25 MCH 28.8 pg (26.0-30.0) 08/02/16 05:25 MCHC Differential 33.5 pg (28.0-36.0) 08/02/16 05:25 RDW 14.8 % (11.5-20.0) 08/02/16 05:25 Plt Count 114 Th/cmm (150-400) L 08/02/16 05:25 MPV 8.5 fl 08/02/16 05:25 Neutrophils % 56.8 % (40.0-80.0) 07/07/16 06:00 Band Neutrophils % 1 % (0-10) 07/28/16 05:30 Lymphocytes % 18.4 % (20.0-50.0) L 07/07/16 06:00 Monocytes % 13.8 % (2.0-10.0) H 07/07/16 06:00 Eosinophils % 11.0 % (0.0-5.0) H 07/07/16 06:00 Basophils % 0.0 % (0.0-2.0) 07/07/16 06:00 Neutrophils (Manual) 73 % (40-80) 08/02/16 05:25 Lymphocytes 11 % (20-50) L 08/02/16 05:25 Monocytes 6 % (2-10) 08/02/16 05:25 Eosinophils 9 % (0-5) H 08/02/16 05:25 Basophils 1 % (0-3) 08/02/16 05:25 Myelocytes 1 % 07/14/16 16:00 Hypochromia 1+ 07/20/16 23:30 Platelet Estimate DECREASED PLATELETS (NORMAL) 08/02/16 05:25 Platelet Morphology GIANT PLATELETS SEEN (NORMAL) 08/02/16 05:25 Polychromasia 1+ 07/20/16 23:30 Anisocytosis 1+ 08/02/16 05:25 Microcytosis 1+ 07/14/16 16:00 RBC Morph Micro Appear ABNORMAL (NORMAL) 08/02/16 05:25 PT 12.7 SECONDS (9.5-11.5) H 07/01/16 06:57 INR 1.26 (0.5-1.4) 07/01/16 06:57 PTT (Actin FS) 28.3 SECONDS (26.0-38.0) 06/28/16 04:38 Specimen Source art 06/22/16 20:03 Sample Site Right Radial 06/22/16 20:03 pH 7.49 (7.35-7.45) H 06/22/16 20:03 pCO2 34.0 mmHg (35.0-45.0) L 06/22/16 20:03 pO2 97.0 mmHg (80.0-100.0) 06/22/16 20:03 HCO3 25.9 mmol/L (20.0-26.0) 06/22/16 20:03 Base Excess 2.8 mmol/L (-3.0-3.0) 06/22/16 20:03 O2 Saturation 98.0 % (92.0-100.0) 06/22/16 20:03 Estuardo Test P 06/22/16 20:03 Vent Rate NA 06/22/16 20:03 Inspired O2 21 06/22/16 20:03 Tidal Volume NA 06/22/16 20:03 PEEP NA 06/22/16 20:03 Pressure (ins/psv/peep) NA 06/22/16 20:03 Critical Value RPINEIRA 06/22/16 20:03 Sodium 130 mEq/L (136-145) L 08/04/16 05:45 Potassium 3.6 mEq/L (3.5-5.1) 08/04/16 05:45 Chloride 95 mEq/L (98-107) L 08/04/16 05:45 Carbon Dioxide 28.3 mEq/L (21.0-31.0) 08/04/16 05:45 Anion Gap 10.3 (7.0-16.0) 08/04/16 05:45 BUN 40 mg/dL (7-25) H 08/04/16 05:45 Creatinine 4.0 mg/dL (0.7-1.3) H 08/04/16 05:45 Est GFR ( Amer) 20.6 ml/min (>90) 08/04/16 05:45 Est GFR (Non-Af Amer) 17.0 ml/min 08/04/16 05:45 BUN/Creatinine Ratio 10.0 08/04/16 05:45 Glucose 96 mg/dL (70-105) 08/04/16 05:45 Calcium 8.8 mg/dL (8.6-10.3) 08/04/16 05:45 Phosphorus 5.5 mg/dL (2.5-5.0) H 07/19/16 09:50 Magnesium 1.9 mg/dL (1.9-2.7) 08/04/16 05:45 Iron 42 ug/dL (38-169) 06/28/16 04:38 TIBC 269 ug/dL (250-450) 06/28/16 04:38 Iron Saturation 16 % (15-55) 06/28/16 04:38 Unsaturated IBC 227 ug/dL (111-343) 06/28/16 04:38 Ferritin 150 ng/mL (30-400) 06/26/16 08:30 Total Bilirubin 0.8 mg/dL (0.3-1.0) 07/28/16 05:30 Direct Bilirubin 0.70 mg/dL (0.0-0.2) H 06/28/16 04:38 GGTP 14 IU/L (0-65) 06/28/16 04:38 AST 52 U/L (13-39) H 07/28/16 05:30 ALT 30 U/L (7-52) 07/28/16 05:30 Alkaline Phosphatase 38 U/L (34-104) 07/28/16 05:30 Ammonia 105 umol/L (16-53) H 07/02/16 06:40 Troponin I < 0.01 ng/mL (0.01-0.05) L 06/22/16 19:33 B-Natriuretic Peptide 668.0 pg/mL (5.0-100.0) H 06/22/16 19:33 Total Protein 7.8 gm/dL (6.0-8.3) 07/28/16 05:30 Albumin 2.7 gm/dL (4.2-5.5) L 07/28/16 05:30 Globulin 5.1 gm/dL 07/28/16 05:30 Albumin/Globulin Ratio 0.5 (1.0-1.8) L 07/28/16 05:30 Amylase 28 U/L (29-103) L 07/02/16 06:40 Lipase 31 U/L (11-82) 07/02/16 06:40 Urine Source CLEAN C 06/29/16 05:55 Urine Color YELLOW 06/29/16 05:55 Urine Clarity HAZY (CLEAR) 06/29/16 05:55 Urine pH 5.5 06/29/16 05:55 Ur Specific [place] 1.015 (1.005-1.030) 06/29/16 05:55 Urine Protein 30 mg/dL (NEGATIVE) H 06/29/16 05:55 Urine Glucose (UA) NEGATIVE mg/dL (NEGATIVE) 06/29/16 05:55 Urine Ketones NEGATIVE mg/dL (NEGATIVE) 06/29/16 05:55 Urine Blood NEGATIVE (NEGATIVE) 06/29/16 05:55 Urine Nitrate NEGATIVE (NEGATIVE) 06/29/16 05:55 Urine Bilirubin NEGATIVE (NEGATIVE) 06/29/16 05:55 Urine Urobilinogen 0.2 E.U./dL (0.2 - 1.0) 06/29/16 05:55 Ur Leukocyte Esterase TRACE (NEGATIVE) H 06/29/16 05:55 Urine RBC 0-2 /hpf (0-5) H 06/29/16 05:55 Urine WBC 6-10 /hpf (0-5) H 06/29/16 05:55 Ur Epithelial Cells FEW /lpf (FEW) 06/29/16 05:55 Urine Bacteria MANY /hpf (NONE SEEN) 06/29/16 05:55 Stool Occult Blood POSITIVE (NEGATIVE) 06/24/16 16:00 Random Vancomycin 13.4 ug/mL (5.0-40.0) 06/28/16 04:38 RPR NONREACTIVE (NONREACTIVE) 06/22/16 19:33 Hepatitis A IgM Ab Negative (Negative) 06/29/16 05:49 Hep Bs Antigen Negative (Negative) 06/29/16 05:49 Hep B Core IgM Ab Negative (Negative) 06/29/16 05:49 Hepatitis C Antibody >11.0 s/co ratio (0.0-0.9) H 06/29/16 05:49 Blood Type A POSITIVE 07/25/16 00:45 Antibody Screen NEGATIVE 07/25/16 00:45 Crossmatch See Detail 07/25/16 00:45 - Physical Exam Vitals and I&O: Vital Signs Temp 98.4 F 08/04/16 07:44 Pulse 123 08/04/16 07:44 Resp 18 08/04/16 07:44 BP 99/56 08/04/16 07:44 Pulse Ox 98 08/04/16 07:44 Intake & Output 08/03/16 08/04/16 08/04/16 18:59 06:59 18:59 Other: Stool Characteristics Soft Soft Formed Active Medications: Current Medications Acetaminophen (Tylenol) 650 mg PO Q6H PRN PRN Reason: temperature above 100F Stop: 09/28/16 16:14 Last Admin: 07/30/16 16:27 Dose: 650 mg Albuterol/Ipratropium (Duoneb Neb) 3 ml HHN Q2HR PRN PRN Reason: Shortness of Breath or Wheeze Stop: 09/08/16 09:51 Aspirin (Ecotrin) 325 mg PO DAILY [facility] Stop: 09/03/16 09:14 Last Admin: 08/02/16 09:26 Dose: 325 mg Calamine/Phenol (Calmoseptine) 1 appl TP QID PRN PRN Reason: Skin Irritation Stop: 09/08/16 18:33 Last Admin: 07/30/16 15:02 Dose: 1 appl Calamine/Phenol (Calmoseptine) 1 appl TP QID MARQUISE Stop: 09/08/16 20:59 Last Admin: 08/04/16 00:35 Dose: Not Given Diphenhydramine HCl (Benadryl 50 Mg/Ml) 50 mg IM Q8HR PRN PRN Reason: Agitation Stop: 08/25/16 12:10 Docusate Sodium (Colace) 100 mg PO Q12HR [facility] Stop: 09/16/16 08:59 Last Admin: 08/03/16 21:43 Dose: Not Given Epoetin Bernard[place] (Epogen) 10,000 units SUBQ TuThSa [facility] Stop: 10/01/16 14:14 Last Admin: 08/02/16 16:01 Dose: 10,000 units Haloperidol Lactate (Haldol) 5 mg IM Q8HR PRN PRN Reason: Agitation Stop: 08/25/16 12:10 Lactic Acid (Lac-Hydrin Cream) 1 appl TP BID [facility] Stop: 09/12/16 08:59 Last Admin: 08/02/16 16:03 Dose: 1 appl Lactulose (Cephulac) 20 gm PO Q8HR [facility] Stop: 09/16/16 04:59 Last Admin: 08/04/16 05:00 Dose: Not Given Morphine Sulfate (Morphine) 2 mg IV Q4H PRN PRN Reason: SEVERE PAIN Stop: 09/23/16 12:59 Last Admin: 08/03/16 21:43 Dose: 2 mg General: No acute distress, Mild distress HEENT: Atraumatic Neck: Supple Cardiovascular: Regular rate Lungs: Clear to auscultation Abdomen: Bowel sounds - Procedures Procedures: Procedures Procedure Code Date ARTERY-VEIN NONAUTOGRAFT 53989 06/22/16 BLOOD TRANSFUSION SERVICE 10119 06/22/16 BYPASS L BRACH ART TO UP ARM VEIN W NONAUT SUB, OPEN [id number] 06/22/16 FLUOROSCOPY OF SUP VENA CAVA USING [facility] CONTRAST, GUIDANCE [id number] 06/22/16 INSERTION OF INFUSION DEV INTO SUP VENA CAVA, PERC APPROACH [id number] 06/22/[address] PL[address] CATHETER IN VEIN 35416 06/22/16 TRANSFUSE NONAUT RED BLOOD CELLS IN PERIPH VEIN, PERC [id number] 06/22/16 Assessment/Plan - Problem List Patient Problems: All Active Problems Anemia (Acute) D64.9 ESRD (end stage renal disease) (Acute) ESRD (end stage renal disease) on dialysis (Acute) N18.6, Z99.2 ESRD (end stage renal disease) on dialysis (Acute) N18.6, Z99.[address] DR FRY (Acute) - Assessment Assessment: 1. Cellulitis of legs. 2. Lymphedema of legs. 3. CKD 5 on HD. 4. Morbid obesity. 5 anemia 6 gi bleed 7 psychosis - Plan Plan: ivabx follow up labs awaiting placement blood transfusion during dialysis
[2016-08-04 09:26] LABS: MEAN CELL VOLUME 84.7 fl (80-99); MEAN CORPUSCULAR HEMOGLOBIN 28.3 pg (26.0-30.0); MEAN CORPUSCULAR HGB CONC 33.4 pg (28.0-36.0); MEAN PLATELET VOLUME 9.5 fl; PLATELET COUNT 110 Th/cmm (150-400); RED CELL DISTRIBUTION WIDTH 14.7 % (11.5-20.0); WHITE BLOOD COUNT 4.6 Th/cmm (4.8-10.8)
[2016-08-04 09:29] LABS: RED BLOOD COUNT 2.51 Mil/cmm (4.30-5.70)
[2016-08-04 09:50] LABS: HEMATOCRIT 21.4 % (39.0-49.0); HEMOGLOBIN 7.2 gm/dL (13.2-17.3)
[2016-08-04] MEDS: Aspirin 325 mg EC PO SCH ×2 (10:41→16:55)
[2016-08-04] MEDS: Morphine Sulfate 2 mg/mL 1mL Syr IV PRN ×2 (11:15→18:49)
[2016-08-04 14:24] LABS: ANISOCYTOSIS 1+; BASOPHIL 3 % (0-3); EOSINOPHIL 6 % (0-5); NEUTROPHILS 63 % (40-80); PLATELET MORPHOLOGY GIANT PLATELETS SEEN (NORMAL); TOTAL CELLS COUNTED 100
[2016-08-04 14:25] LABS: PLATELET ESTIMATE DECREASED PLATELETS (NORMAL)
--- NOTE | 2016-08-04 16:00 | General Progress Note ---
Subjective - Review of Systems Service Date: 08/04/16 Subjective: no new changes, comfortable Objective - Results Result Diagrams: 08/04/16 08:33 08/04/16 05:45 Recent Labs: Laboratory Last Values WBC 4.6 Th/cmm (4.8-10.8) L 08/04/16 08:33 RBC 2.51 Mil/cmm (4.30-5.70) L 08/04/16 08:33 Hgb 7.2 gm/dL (13.2-17.3) L* 08/04/16 08:33 Hct 21.4 % (39.0-49.0) L* 08/04/16 08:33 MCV 84.7 fl (80-99) 08/04/16 08:33 MCH 28.3 pg (26.0-30.0) 08/04/16 08:33 MCHC Differential 33.4 pg (28.0-36.0) 08/04/16 08:33 RDW 14.7 % (11.5-20.0) 08/04/16 08:33 Plt Count 110 Th/cmm (150-400) L 08/04/16 08:33 MPV 9.5 fl 08/04/16 08:33 Neutrophils % 56.8 % (40.0-80.0) 07/07/16 06:00 Band Neutrophils % 1 % (0-10) 07/28/16 05:30 Lymphocytes % 18.4 % (20.0-50.0) L 07/07/16 06:00 Monocytes % 13.8 % (2.0-10.0) H 07/07/16 06:00 Eosinophils % 11.0 % (0.0-5.0) H 07/07/16 06:00 Basophils % 0.0 % (0.0-2.0) 07/07/16 06:00 Neutrophils (Manual) 63 % (40-80) 08/04/16 08:33 Lymphocytes 15 % (20-50) L 08/04/16 08:33 Monocytes 13 % (2-10) H 08/04/16 08:33 Eosinophils 6 % (0-5) H 08/04/16 08:33 Basophils 3 % (0-3) 08/04/16 08:33 Myelocytes 1 % 07/14/16 16:00 Hypochromia 1+ 07/20/16 23:30 Platelet Estimate DECREASED PLATELETS (NORMAL) 08/04/16 08:33 Platelet Morphology GIANT PLATELETS SEEN (NORMAL) 08/04/16 08:33 Polychromasia 1+ 07/20/16 23:30 Anisocytosis 1+ 08/04/16 08:33 Microcytosis 1+ 07/14/16 16:00 RBC Morph Micro Appear ABNORMAL (NORMAL) 08/04/16 08:33 PT 12.7 SECONDS (9.5-11.5) H 07/01/16 06:57 INR 1.26 (0.5-1.4) 07/01/16 06:57 PTT (Actin FS) 28.3 SECONDS (26.0-38.0) 06/28/16 04:38 Specimen Source art 06/22/16 20:03 Sample Site Right Radial 06/22/16 20:03 pH 7.49 (7.35-7.45) H 06/22/16 20:03 pCO2 34.0 mmHg (35.0-45.0) L 06/22/16 20:03 pO2 97.0 mmHg (80.0-100.0) 06/22/16 20:03 HCO3 25.9 mmol/L (20.0-26.0) 06/22/16 20:03 Base Excess 2.8 mmol/L (-3.0-3.0) 06/22/16 20:03 O2 Saturation 98.0 % (92.0-100.0) 06/22/16 20:03 Estuardo Test P 06/22/16 20:03 Vent Rate NA 06/22/16 20:03 Inspired O2 21 06/22/16 20:03 Tidal Volume NA 06/22/16 20:03 PEEP NA 06/22/16 20:03 Pressure (ins/psv/peep) NA 06/22/16 20:03 Critical Value RPINEIRA 06/22/16 20:03 Sodium 130 mEq/L (136-145) L 08/04/16 05:45 Potassium 3.6 mEq/L (3.5-5.1) 08/04/16 05:45 Chloride 95 mEq/L (98-107) L 08/04/16 05:45 Carbon Dioxide 28.3 mEq/L (21.0-31.0) 08/04/16 05:45 Anion Gap 10.3 (7.0-16.0) 08/04/16 05:45 BUN 40 mg/dL (7-25) H 08/04/16 05:45 Creatinine 4.0 mg/dL (0.7-1.3) H 08/04/16 05:45 Est GFR ( Amer) 20.6 ml/min (>90) 08/04/16 05:45 Est GFR (Non-Af Amer) 17.0 ml/min 08/04/16 05:45 BUN/Creatinine Ratio 10.0 08/04/16 05:45 Glucose 96 mg/dL (70-105) 08/04/16 05:45 Calcium 8.8 mg/dL (8.6-10.3) 08/04/16 05:45 Phosphorus 5.5 mg/dL (2.5-5.0) H 07/19/16 09:50 Magnesium 1.9 mg/dL (1.9-2.7) 08/04/16 05:45 Iron 42 ug/dL (38-169) 06/28/16 04:38 TIBC 269 ug/dL (250-450) 06/28/16 04:38 Iron Saturation 16 % (15-55) 06/28/16 04:38 Unsaturated IBC 227 ug/dL (111-343) 06/28/16 04:38 Ferritin 150 ng/mL (30-400) 06/26/16 08:30 Total Bilirubin 0.8 mg/dL (0.3-1.0) 07/28/16 05:30 Direct Bilirubin 0.70 mg/dL (0.0-0.2) H 06/28/16 04:38 GGTP 14 IU/L (0-65) 06/28/16 04:38 AST 52 U/L (13-39) H 07/28/16 05:30 ALT 30 U/L (7-52) 07/28/16 05:30 Alkaline Phosphatase 38 U/L (34-104) 07/28/16 05:30 Ammonia 105 umol/L (16-53) H 07/02/16 06:40 Troponin I < 0.01 ng/mL (0.01-0.05) L 06/22/16 19:33 B-Natriuretic Peptide 668.0 pg/mL (5.0-100.0) H 06/22/16 19:33 Total Protein 7.8 gm/dL (6.0-8.3) 07/28/16 05:30 Albumin 2.7 gm/dL (4.2-5.5) L 07/28/16 05:30 Globulin 5.1 gm/dL 07/28/16 05:30 Albumin/Globulin Ratio 0.5 (1.0-1.8) L 07/28/16 05:30 Amylase 28 U/L (29-103) L 07/02/16 06:40 Lipase 31 U/L (11-82) 07/02/16 06:40 Urine Source CLEAN C 06/29/16 05:55 Urine Color YELLOW 06/29/16 05:55 Urine Clarity HAZY (CLEAR) 06/29/16 05:55 Urine pH 5.5 06/29/16 05:55 Ur Specific [place] 1.015 (1.005-1.030) 06/29/16 05:55 Urine Protein 30 mg/dL (NEGATIVE) H 06/29/16 05:55 Urine Glucose (UA) NEGATIVE mg/dL (NEGATIVE) 06/29/16 05:55 Urine Ketones NEGATIVE mg/dL (NEGATIVE) 06/29/16 05:55 Urine Blood NEGATIVE (NEGATIVE) 06/29/16 05:55 Urine Nitrate NEGATIVE (NEGATIVE) 06/29/16 05:55 Urine Bilirubin NEGATIVE (NEGATIVE) 06/29/16 05:55 Urine Urobilinogen 0.2 E.U./dL (0.2 - 1.0) 06/29/16 05:55 Ur Leukocyte Esterase TRACE (NEGATIVE) H 06/29/16 05:55 Urine RBC 0-2 /hpf (0-5) H 06/29/16 05:55 Urine WBC 6-10 /hpf (0-5) H 06/29/16 05:55 Ur Epithelial Cells FEW /lpf (FEW) 06/29/16 05:55 Urine Bacteria MANY /hpf (NONE SEEN) 06/29/16 05:55 Stool Occult Blood POSITIVE (NEGATIVE) 06/24/16 16:00 Random Vancomycin 13.4 ug/mL (5.0-40.0) 06/28/16 04:38 RPR NONREACTIVE (NONREACTIVE) 06/22/16 19:33 Hepatitis A IgM Ab Negative (Negative) 06/29/16 05:49 Hep Bs Antigen Negative (Negative) 06/29/16 05:49 Hep B Core IgM Ab Negative (Negative) 06/29/16 05:49 Hepatitis C Antibody >11.0 s/co ratio (0.0-0.9) H 06/29/16 05:49 Blood Type A POSITIVE 08/04/16 11:11 Antibody Screen NEGATIVE 08/04/16 11:11 Crossmatch See Detail 08/04/16 11:11 - Physical Exam Vitals and I&O: Vital Signs Temp 98.4 F 08/04/16 07:44 Pulse 123 08/04/16 07:44 Resp 18 08/04/16 07:44 BP 99/56 08/04/16 07:44 Pulse Ox 98 08/04/16 07:44 Intake & Output 08/03/16 08/04/16 08/04/16 18:59 06:59 18:59 Other: Stool Characteristics Soft Soft Formed Active Medications: Current Medications Acetaminophen (Tylenol) 650 mg PO Q6H PRN PRN Reason: temperature above 100F Stop: 09/28/16 16:14 Last Admin: 07/30/16 16:27 Dose: 650 mg Albuterol/Ipratropium (Duoneb Neb) 3 ml HHN Q2HR PRN PRN Reason: Shortness of Breath or Wheeze Stop: 09/08/16 09:51 Aspirin (Ecotrin) 325 mg PO DAILY MARQUISE Stop: 09/03/16 09:14 Last Admin: 08/04/16 10:41 Dose: 325 mg Calamine/Phenol (Calmoseptine) 1 appl TP QID PRN PRN Reason: Skin Irritation Stop: 09/08/16 18:33 Last Admin: 07/30/16 15:02 Dose: 1 appl Calamine/Phenol (Calmoseptine) 1 appl TP QID MARQUISE Stop: 09/08/16 20:59 Last Admin: 08/04/16 00:35 Dose: Not Given Diphenhydramine HCl (Benadryl 50 Mg/Ml) 50 mg IM Q8HR PRN PRN Reason: Agitation Stop: 08/25/16 12:10 Docusate Sodium (Colace) 100 mg PO Q12HR MARQUISE Stop: 09/16/16 08:59 Last Admin: 08/04/16 10:41 Dose: 100 mg Epoetin Bernardino (Epogen) 10,000 units SUBQ TuThSa [facility] Stop: 10/01/16 14:14 Last Admin: 08/02/16 16:01 Dose: 10,000 units Haloperidol Lactate (Haldol) 5 mg IM Q8HR PRN PRN Reason: Agitation Stop: 08/25/16 12:10 Lactic Acid (Lac-Hydrin Cream) 1 appl TP BID [facility] Stop: 09/12/16 08:59 Last Admin: 08/02/16 16:03 Dose: 1 appl Lactulose (Cephulac) 20 gm PO Q8HR MARQUISE Stop: 09/16/16 04:59 Last Admin: 08/04/16 05:00 Dose: Not Given Morphine Sulfate (Morphine) 2 mg IV Q4H PRN PRN Reason: SEVERE PAIN Stop: 09/23/16 12:59 Last Admin: 08/04/16 11:15 Dose: 2 mg General: Alert, No acute distress HEENT: Atraumatic, Mucous membr. moist/pink Neck: Supple, +2 carotid pulse wo bruit Cardiovascular: Regular rate, Normal S1, Normal S2 Lungs: Other (few rhonchi) Abdomen: Bowel sounds, Soft Extremities: no Edema Neurological: Sensation intact Skin: no Rash - Procedures Procedures: Procedures Procedure Code Date ARTERY-VEIN NONAUTOGRAFT 89966 06/22/16 BLOOD TRANSFUSION SERVICE 02536 06/22/16 BYPASS L BRACH ART TO UP ARM VEIN W NONAUT SUB, OPEN [id number] 06/22/16 FLUOROSCOPY OF SUP VENA CAVA USING [facility] CONTRAST, GUIDANCE [id number] 06/22/16 INSERTION OF INFUSION DEV INTO SUP VENA CAVA, PERC APPROACH [id number] 06/22/16 PLACE CATHETER IN VEIN 82980 06/22/16 TRANSFUSE NONAUT RED BLOOD CELLS IN PERIPH VEIN, PERC [id number] 06/22/16 Assessment/Plan - Problem List Patient Problems: All Active Problems Anemia (Acute) D64.9 ESRD (end stage renal disease) (Acute) ESRD (end stage renal disease) on dialysis (Acute) N18.6, Z99.2 ESRD (end stage renal disease) on dialysis (Acute) N18.6, Z99.[address] FRY (Acute) - Assessment Assessment: esrd on hd persistent cellulitis b/l lower ext acute on chronic anemia possible gi bleed ohs chronic a. fib hypothyroid anasarca functional quadriplegia chronic venous stasis dermatitis acute decomp psychosis hypokalemia, hypomagnesemia s/p left avg - Plan Plan: Lab - Result Diagrams 07/19/16 09:50 Lab - Result Diagrams 07/22/16 05:21 Lab - Result Diagrams 07/24/16 05:00 Lab - Result Diagrams Lab - Result Diagrams 08/04/16 08:33 08/04/16 05:45 07/28/16 05:30 07/28/16 05:30 07/24/16 05:00 07/20/16 05:50 07/19/16 09:50 latest hgb/hct were 7.2/21.4 schedule for HD today w/ transfusion placement in progress K up to 3.6 started epogen Lab - Result Diagrams 07/19/16 09:50 07/20/16 05:50 Lab - Result Diagrams 07/21/16 06:16 07/20/16 05:50 Lab - Result Diagrams 07/26/16 11:05 07/24/16 05:00 Lab - Result Diagrams 07/29/16 05:55 07/28/16 05:30
[2016-08-04] MEDS: Ammonium Lactate Cream 140 gm Tube TP SCH ×2 (16:55→18:23)
[2016-08-04] MEDS: Epoetin Alfa 20000 Units/mL Vial SUBQ SCH (18:16)
[2016-08-05] MEDS: Morphine Sulfate 2 mg/mL 1mL Syr IV PRN ×3 (01:32→21:32)
[2016-08-05 05:22] LABS: MEAN CELL VOLUME 85.7 fl (80-99)
[2016-08-05 05:27] LABS: MEAN CORPUSCULAR HEMOGLOBIN 29.2 pg (26.0-30.0); MEAN PLATELET VOLUME 9.1 fl; PLATELET COUNT 111 Th/cmm (150-400); RED CELL DISTRIBUTION WIDTH 14.6 % (11.5-20.0); WHITE BLOOD COUNT 4.6 Th/cmm (4.8-10.8)
[2016-08-05 05:44] LABS: HEMATOCRIT 23.1 % (39.0-49.0); HEMOGLOBIN 7.9 gm/dL (13.2-17.3)
[2016-08-05] MEDS: Lactulose 10 Gm/15 mL 30mL UDC PO SCH ×3 (05:45→21:30)
[2016-08-05 08:45] LABS: ANISOCYTOSIS 1+; EOSINOPHIL 10 % (0-5); NEUTROPHILS 61 % (40-80); PLATELET ESTIMATE DECREASED PLATELETS (NORMAL); PLATELET MORPHOLOGY GIANT PLATELETS SEEN (NORMAL); TOTAL CELLS COUNTED 100
[2016-08-05] MEDS: Ammonium Lactate Cream 140 gm Tube TP SCH (10:13)
[2016-08-05] MEDS: Menthol/Zinc Oxide Oint 113gm Tube TP SCH ×3 (10:13→21:39)
--- NOTE | 2016-08-05 14:00 | General Progress Note ---
Subjective - Review of Systems Service Date: 08/05/16 Subjective: c/o wekylie Objective - Results Result Diagrams: 08/05/16 05:00 08/04/16 05:45 Recent Labs: Laboratory Last Values WBC 4.6 Th/cmm (4.8-10.8) L 08/05/16 05:00 RBC 2.70 Mil/cmm (4.30-5.70) L 08/05/16 05:00 Hgb 7.9 gm/dL (13.2-17.3) L* 08/05/16 05:00 Hct 23.1 % (39.0-49.0) L* 08/05/16 05:00 MCV 85.7 fl (80-99) 08/05/16 05:00 MCH 29.2 pg (26.0-30.0) 08/05/16 05:00 MCHC Differential 34.0 pg (28.0-36.0) 08/05/16 05:00 RDW 14.6 % (11.5-20.0) 08/05/16 05:00 Plt Count 111 Th/cmm (150-400) L 08/05/16 05:00 MPV 9.1 fl 08/05/16 05:00 Neutrophils % 56.8 % (40.0-80.0) 07/07/16 06:00 Band Neutrophils % 1 % (0-10) 07/28/16 05:30 Lymphocytes % 18.4 % (20.0-50.0) L 07/07/16 06:00 Monocytes % 13.8 % (2.0-10.0) H 07/07/16 06:00 Eosinophils % 11.0 % (0.0-5.0) H 07/07/16 06:00 Basophils % 0.0 % (0.0-2.0) 07/07/16 06:00 Neutrophils (Manual) 61 % (40-80) 08/05/16 05:00 Lymphocytes 16 % (20-50) L 08/05/16 05:00 Monocytes 13 % (2-10) H 08/05/16 05:00 Eosinophils 10 % (0-5) H 08/05/16 05:00 Basophils 3 % (0-3) 08/04/16 08:33 Myelocytes 1 % 07/14/16 16:00 Hypochromia 1+ 07/20/16 23:30 Platelet Estimate DECREASED PLATELETS (NORMAL) 08/05/16 05:00 Platelet Morphology GIANT PLATELETS SEEN (NORMAL) 08/05/16 05:00 Polychromasia 1+ 07/20/16 23:30 Anisocytosis 1+ 08/05/16 05:00 Microcytosis 1+ 07/14/16 16:00 RBC Morph Micro Appear ABNORMAL (NORMAL) 08/05/16 05:00 PT 12.7 SECONDS (9.5-11.5) H 07/01/16 06:57 INR 1.26 (0.5-1.4) 07/01/16 06:57 PTT (Actin FS) 28.3 SECONDS (26.0-38.0) 06/28/16 04:38 Specimen Source art 06/22/16 20:03 Sample Site Right Radial 06/22/16 20:03 pH 7.49 (7.35-7.45) H 06/22/16 20:03 pCO2 34.0 mmHg (35.0-45.0) L 06/22/16 20:03 pO2 97.0 mmHg (80.0-100.0) 06/22/16 20:03 HCO3 25.9 mmol/L (20.0-26.0) 06/22/16 20:03 Base Excess 2.8 mmol/L (-3.0-3.0) 06/22/16 20:03 O2 Saturation 98.0 % (92.0-100.0) 06/22/16 20:03 Estuardo Test P 06/22/16 20:03 Vent Rate NA 06/22/16 20:03 Inspired O2 21 06/22/16 20:03 Tidal Volume NA 06/22/16 20:03 PEEP NA 06/22/16 20:03 Pressure (ins/psv/peep) NA 06/22/16 20:03 Critical Value RPINEIRA 06/22/16 20:03 Sodium 130 mEq/L (136-145) L 08/04/16 05:45 Potassium 3.6 mEq/L (3.5-5.1) 08/04/16 05:45 Chloride 95 mEq/L (98-107) L 08/04/16 05:45 Carbon Dioxide 28.3 mEq/L (21.0-31.0) 08/04/16 05:45 Anion Gap 10.3 (7.0-16.0) 08/04/16 05:45 BUN 40 mg/dL (7-25) H 08/04/16 05:45 Creatinine 4.0 mg/dL (0.7-1.3) H 08/04/16 05:45 Est GFR ( Amer) 20.6 ml/min (>90) 08/04/16 05:45 Est GFR (Non-Af Amer) 17.0 ml/min 08/04/16 05:45 BUN/Creatinine Ratio 10.0 08/04/16 05:45 Glucose 96 mg/dL (70-105) 08/04/16 05:45 Calcium 8.8 mg/dL (8.6-10.3) 08/04/16 05:45 Phosphorus 5.5 mg/dL (2.5-5.0) H 07/19/16 09:50 Magnesium 1.9 mg/dL (1.9-2.7) 08/04/16 05:45 Iron 42 ug/dL (38-169) 06/28/16 04:38 TIBC 269 ug/dL (250-450) 06/28/16 04:38 Iron Saturation 16 % (15-55) 06/28/16 04:38 Unsaturated IBC 227 ug/dL (111-343) 06/28/16 04:38 Ferritin 150 ng/mL (30-400) 06/26/16 08:30 Total Bilirubin 0.8 mg/dL (0.3-1.0) 07/28/16 05:30 Direct Bilirubin 0.70 mg/dL (0.0-0.2) H 06/28/16 04:38 GGTP 14 IU/L (0-65) 06/28/16 04:38 AST 52 U/L (13-39) H 07/28/16 05:30 ALT 30 U/L (7-52) 07/28/16 05:30 Alkaline Phosphatase 38 U/L (34-104) 07/28/16 05:30 Ammonia 105 umol/L (16-53) H 07/02/16 06:40 Troponin I < 0.01 ng/mL (0.01-0.05) L 06/22/16 19:33 B-Natriuretic Peptide 668.0 pg/mL (5.0-100.0) H 06/22/16 19:33 Total Protein 7.8 gm/dL (6.0-8.3) 07/28/16 05:30 Albumin 2.7 gm/dL (4.2-5.5) L 07/28/16 05:30 Globulin 5.1 gm/dL 07/28/16 05:30 Albumin/Globulin Ratio 0.5 (1.0-1.8) L 07/28/16 05:30 Amylase 28 U/L (29-103) L 07/02/16 06:40 Lipase 31 U/L (11-82) 07/02/16 06:40 Urine Source CLEAN C 06/29/16 05:55 Urine Color YELLOW 06/29/16 05:55 Urine Clarity HAZY (CLEAR) 06/29/16 05:55 Urine pH 5.5 06/29/16 05:55 Ur Specific [place] 1.015 (1.005-1.030) 06/29/16 05:55 Urine Protein 30 mg/dL (NEGATIVE) H 06/29/16 05:55 Urine Glucose (UA) NEGATIVE mg/dL (NEGATIVE) 06/29/16 05:55 Urine Ketones NEGATIVE mg/dL (NEGATIVE) 06/29/16 05:55 Urine Blood NEGATIVE (NEGATIVE) 06/29/16 05:55 Urine Nitrate NEGATIVE (NEGATIVE) 06/29/16 05:55 Urine Bilirubin NEGATIVE (NEGATIVE) 06/29/16 05:55 Urine Urobilinogen 0.2 E.U./dL (0.2 - 1.0) 06/29/16 05:55 Ur Leukocyte Esterase TRACE (NEGATIVE) H 06/29/16 05:55 Urine RBC 0-2 /hpf (0-5) H 06/29/16 05:55 Urine WBC 6-10 /hpf (0-5) H 06/29/16 05:55 Ur Epithelial Cells FEW /lpf (FEW) 06/29/16 05:55 Urine Bacteria MANY /hpf (NONE SEEN) 06/29/16 05:55 Stool Occult Blood POSITIVE (NEGATIVE) 06/24/16 16:00 Random Vancomycin 13.4 ug/mL (5.0-40.0) 06/28/16 04:38 RPR NONREACTIVE (NONREACTIVE) 06/22/16 19:33 Hepatitis A IgM Ab Negative (Negative) 06/29/16 05:49 Hep Bs Antigen Negative (Negative) 06/29/16 05:49 Hep B Core IgM Ab Negative (Negative) 06/29/16 05:49 Hepatitis C Antibody >11.0 s/co ratio (0.0-0.9) H 06/29/16 05:49 Blood Type A POSITIVE 08/04/16 23:20 Antibody Screen NEGATIVE 08/04/16 23:20 Crossmatch See Detail 08/04/16 23:20 - Physical Exam Vitals and I&O: Vital Signs Temp 99.1 F 08/05/16 11:47 Pulse 83 08/05/16 11:47 Resp 18 08/05/16 11:47 BP 121/75 08/05/16 11:47 Pulse Ox 98 08/05/16 11:47 Intake & Output 08/04/16 08/05/16 08/05/16 18:59 06:59 18:59 Intake Total 480 1500 Output Total 450 Balance 30 1500 Intake: Oral 480 1500 Output: Urine 450 Other: # Voids 2 1 # Bowel Movements 1 Stool Characteristics Soft Soft Soft Active Medications: Current Medications Acetaminophen (Tylenol) 650 mg PO Q6H PRN PRN Reason: temperature above 100F Stop: 09/28/16 16:14 Last Admin: 07/30/16 16:27 Dose: 650 mg Albuterol/Ipratropium (Duoneb Neb) 3 ml HHN Q2HR PRN PRN Reason: Shortness of Breath or Wheeze Stop: 09/08/16 09:51 Calamine/Phenol (Calmoseptine) 1 appl TP QID PRN PRN Reason: Skin Irritation Stop: 09/08/16 18:33 Last Admin: 07/30/16 15:02 Dose: 1 appl Calamine/Phenol (Calmoseptine) 1 appl TP QID MARQUISE Stop: 09/08/16 20:59 Last Admin: 08/05/16 10:13 Dose: Not Given Diphenhydramine HCl (Benadryl 50 Mg/Ml) 50 mg IM Q8HR PRN PRN Reason: Agitation Stop: 08/25/16 12:10 Docusate Sodium (Colace) 100 mg PO Q12HR MARQUISE Stop: 09/16/16 08:59 Last Admin: 08/05/16 10:13 Dose: Not Given Epoetin Bernardino (Epogen) 10,000 units SUBQ TuThSa [facility] Stop: 10/01/16 14:14 Last Admin: 08/04/16 18:16 Dose: 10,000 units Haloperidol Lactate (Haldol) 5 mg IM Q8HR PRN PRN Reason: Agitation Stop: 08/25/16 12:10 Lactic Acid (Lac-Hydrin Cream) 1 appl TP BID [facility] Stop: 09/12/16 08:59 Last Admin: 08/05/16 10:13 Dose: Not Given Lactulose (Cephulac) 20 gm PO Q8HR [facility] Stop: 09/16/16 04:59 Last Admin: 08/05/16 05:45 Dose: Not Given Morphine Sulfate (Morphine) 2 mg IV Q4H PRN PRN Reason: SEVERE PAIN Stop: 09/23/16 12:59 Last Admin: 08/05/16 10:49 Dose: 2 mg General: No acute distress HEENT: Atraumatic Neck: Supple Cardiovascular: Regular rate Lungs: Clear to auscultation Abdomen: Bowel sounds - Procedures Procedures: Procedures Procedure Code Date ARTERY-VEIN NONAUTOGRAFT 11209 06/22/16 BLOOD TRANSFUSION SERVICE 00467 06/22/16 BYPASS L BRACH ART TO UP ARM VEIN W NONAUT SUB, OPEN [id number] 06/22/16 FLUOROSCOPY OF SUP VENA CAVA USING [facility] CONTRAST, GUIDANCE [id number] 06/22/16 INSERTION OF INFUSION DEV INTO SUP VENA CAVA, PERC APPROACH [id number] 06/22/[address] PL[address] CATHETER IN VEIN 59588 06/22/16 TRANSFUSE NONAUT RED BLOOD CELLS IN PERIPH VEIN, PERC [id number] 06/22/16 Assessment/Plan - Problem List Patient Problems: All Active Problems Anemia (Acute) D64.9 ESRD (end stage renal disease) (Acute) ESRD (end stage renal disease) on dialysis (Acute) N18.6, Z99.2 ESRD (end stage renal disease) on dialysis (Acute) N18.6, Z99.[address] DR FRY (Acute) - Assessment Assessment: 1. Cellulitis of legs. 2. Lymphedema of legs. 3. CKD 5 on HD. 4. Morbid obesity. 5 anemia 6 gi bleed 7 psychosis - Plan Plan: ivabx follow up labs awaiting placement blood transfusion during dialysis
--- NOTE | 2016-08-05 15:16 | General Progress Note ---
Subjective - Review of Systems Service Date: 08/05/16 Subjective: more cooperative today, comfortable Objective - Results Result Diagrams: 08/05/16 05:00 08/04/16 05:45 Recent Labs: Laboratory Last Values WBC 4.6 Th/cmm (4.8-10.8) L 08/05/16 05:00 RBC 2.70 Mil/cmm (4.30-5.70) L 08/05/16 05:00 Hgb 7.9 gm/dL (13.2-17.3) L* 08/05/16 05:00 Hct 23.1 % (39.0-49.0) L* 08/05/16 05:00 MCV 85.7 fl (80-99) 08/05/16 05:00 MCH 29.2 pg (26.0-30.0) 08/05/16 05:00 MCHC Differential 34.0 pg (28.0-36.0) 08/05/16 05:00 RDW 14.6 % (11.5-20.0) 08/05/16 05:00 Plt Count 111 Th/cmm (150-400) L 08/05/16 05:00 MPV 9.1 fl 08/05/16 05:00 Neutrophils % 56.8 % (40.0-80.0) 07/07/16 06:00 Band Neutrophils % 1 % (0-10) 07/28/16 05:30 Lymphocytes % 18.4 % (20.0-50.0) L 07/07/16 06:00 Monocytes % 13.8 % (2.0-10.0) H 07/07/16 06:00 Eosinophils % 11.0 % (0.0-5.0) H 07/07/16 06:00 Basophils % 0.0 % (0.0-2.0) 07/07/16 06:00 Neutrophils (Manual) 61 % (40-80) 08/05/16 05:00 Lymphocytes 16 % (20-50) L 08/05/16 05:00 Monocytes 13 % (2-10) H 08/05/16 05:00 Eosinophils 10 % (0-5) H 08/05/16 05:00 Basophils 3 % (0-3) 08/04/16 08:33 Myelocytes 1 % 07/14/16 16:00 Hypochromia 1+ 07/20/16 23:30 Platelet Estimate DECREASED PLATELETS (NORMAL) 08/05/16 05:00 Platelet Morphology GIANT PLATELETS SEEN (NORMAL) 08/05/16 05:00 Polychromasia 1+ 07/20/16 23:30 Anisocytosis 1+ 08/05/16 05:00 Microcytosis 1+ 07/14/16 16:00 RBC Morph Micro Appear ABNORMAL (NORMAL) 08/05/16 05:00 PT 12.7 SECONDS (9.5-11.5) H 07/01/16 06:57 INR 1.26 (0.5-1.4) 07/01/16 06:57 PTT (Actin FS) 28.3 SECONDS (26.0-38.0) 06/28/16 04:38 Specimen Source art 06/22/16 20:03 Sample Site Right Radial 06/22/16 20:03 pH 7.49 (7.35-7.45) H 06/22/16 20:03 pCO2 34.0 mmHg (35.0-45.0) L 06/22/16 20:03 pO2 97.0 mmHg (80.0-100.0) 06/22/16 20:03 HCO3 25.9 mmol/L (20.0-26.0) 06/22/16 20:03 Base Excess 2.8 mmol/L (-3.0-3.0) 06/22/16 20:03 O2 Saturation 98.0 % (92.0-100.0) 06/22/16 20:03 Estuardo Test P 06/22/16 20:03 Vent Rate NA 06/22/16 20:03 Inspired O2 21 06/22/16 20:03 Tidal Volume NA 06/22/16 20:03 PEEP NA 06/22/16 20:03 Pressure (ins/psv/peep) NA 06/22/16 20:03 Critical Value RPINEIRA 06/22/16 20:03 Sodium 130 mEq/L (136-145) L 08/04/16 05:45 Potassium 3.6 mEq/L (3.5-5.1) 08/04/16 05:45 Chloride 95 mEq/L (98-107) L 08/04/16 05:45 Carbon Dioxide 28.3 mEq/L (21.0-31.0) 08/04/16 05:45 Anion Gap 10.3 (7.0-16.0) 08/04/16 05:45 BUN 40 mg/dL (7-25) H 08/04/16 05:45 Creatinine 4.0 mg/dL (0.7-1.3) H 08/04/16 05:45 Est GFR ( Amer) 20.6 ml/min (>90) 08/04/16 05:45 Est GFR (Non-Af Amer) 17.0 ml/min 08/04/16 05:45 BUN/Creatinine Ratio 10.0 08/04/16 05:45 Glucose 96 mg/dL (70-105) 08/04/16 05:45 Calcium 8.8 mg/dL (8.6-10.3) 08/04/16 05:45 Phosphorus 5.5 mg/dL (2.5-5.0) H 07/19/16 09:50 Magnesium 1.9 mg/dL (1.9-2.7) 08/04/16 05:45 Iron 42 ug/dL (38-169) 06/28/16 04:38 TIBC 269 ug/dL (250-450) 06/28/16 04:38 Iron Saturation 16 % (15-55) 06/28/16 04:38 Unsaturated IBC 227 ug/dL (111-343) 06/28/16 04:38 Ferritin 150 ng/mL (30-400) 06/26/16 08:30 Total Bilirubin 0.8 mg/dL (0.3-1.0) 07/28/16 05:30 Direct Bilirubin 0.70 mg/dL (0.0-0.2) H 06/28/16 04:38 GGTP 14 IU/L (0-65) 06/28/16 04:38 AST 52 U/L (13-39) H 07/28/16 05:30 ALT 30 U/L (7-52) 07/28/16 05:30 Alkaline Phosphatase 38 U/L (34-104) 07/28/16 05:30 Ammonia 105 umol/L (16-53) H 07/02/16 06:40 Troponin I < 0.01 ng/mL (0.01-0.05) L 06/22/16 19:33 B-Natriuretic Peptide 668.0 pg/mL (5.0-100.0) H 06/22/16 19:33 Total Protein 7.8 gm/dL (6.0-8.3) 07/28/16 05:30 Albumin 2.7 gm/dL (4.2-5.5) L 07/28/16 05:30 Globulin 5.1 gm/dL 07/28/16 05:30 Albumin/Globulin Ratio 0.5 (1.0-1.8) L 07/28/16 05:30 Amylase 28 U/L (29-103) L 07/02/16 06:40 Lipase 31 U/L (11-82) 07/02/16 06:40 Urine Source CLEAN C 06/29/16 05:55 Urine Color YELLOW 06/29/16 05:55 Urine Clarity HAZY (CLEAR) 06/29/16 05:55 Urine pH 5.5 06/29/16 05:55 Ur Specific [place] 1.015 (1.005-1.030) 06/29/16 05:55 Urine Protein 30 mg/dL (NEGATIVE) H 06/29/16 05:55 Urine Glucose (UA) NEGATIVE mg/dL (NEGATIVE) 06/29/16 05:55 Urine Ketones NEGATIVE mg/dL (NEGATIVE) 06/29/16 05:55 Urine Blood NEGATIVE (NEGATIVE) 06/29/16 05:55 Urine Nitrate NEGATIVE (NEGATIVE) 06/29/16 05:55 Urine Bilirubin NEGATIVE (NEGATIVE) 06/29/16 05:55 Urine Urobilinogen 0.2 E.U./dL (0.2 - 1.0) 06/29/16 05:55 Ur Leukocyte Esterase TRACE (NEGATIVE) H 06/29/16 05:55 Urine RBC 0-2 /hpf (0-5) H 06/29/16 05:55 Urine WBC 6-10 /hpf (0-5) H 06/29/16 05:55 Ur Epithelial Cells FEW /lpf (FEW) 06/29/16 05:55 Urine Bacteria MANY /hpf (NONE SEEN) 06/29/16 05:55 Stool Occult Blood POSITIVE (NEGATIVE) 06/24/16 16:00 Random Vancomycin 13.4 ug/mL (5.0-40.0) 06/28/16 04:38 RPR NONREACTIVE (NONREACTIVE) 06/22/16 19:33 Hepatitis A IgM Ab Negative (Negative) 06/29/16 05:49 Hep Bs Antigen Negative (Negative) 06/29/16 05:49 Hep B Core IgM Ab Negative (Negative) 06/29/16 05:49 Hepatitis C Antibody >11.0 s/co ratio (0.0-0.9) H 06/29/16 05:49 Blood Type A POSITIVE 08/04/16 23:20 Antibody Screen NEGATIVE 08/04/16 23:20 Crossmatch See Detail 08/04/16 23:20 - Physical Exam Vitals and I&O: Vital Signs Temp 99.1 F 08/05/16 11:47 Pulse 83 08/05/16 11:47 Resp 18 08/05/16 11:47 BP 121/75 08/05/16 11:47 Pulse Ox 98 08/05/16 11:47 Intake & Output 08/04/16 08/05/16 08/05/16 18:59 06:59 18:59 Intake Total 480 1500 Output Total 450 Balance 30 1500 Intake: Oral 480 1500 Output: Urine 450 Other: # Voids 2 1 # Bowel Movements 1 Stool Characteristics Soft Soft Soft Active Medications: Current Medications Acetaminophen (Tylenol) 650 mg PO Q6H PRN PRN Reason: temperature above 100F Stop: 09/28/16 16:14 Last Admin: 07/30/16 16:27 Dose: 650 mg Albuterol/Ipratropium (Duoneb Neb) 3 ml HHN Q2HR PRN PRN Reason: Shortness of Breath or Wheeze Stop: 09/08/16 09:51 Calamine/Phenol (Calmoseptine) 1 appl TP QID PRN PRN Reason: Skin Irritation Stop: 09/08/16 18:33 Last Admin: 07/30/16 15:02 Dose: 1 appl Calamine/Phenol (Calmoseptine) 1 appl TP QID MARQUISE Stop: 09/08/16 20:59 Last Admin: 08/05/16 14:09 Dose: Not Given Diphenhydramine HCl (Benadryl 50 Mg/Ml) 50 mg IM Q8HR PRN PRN Reason: Agitation Stop: 08/25/16 12:10 Docusate Sodium (Colace) 100 mg PO Q12HR MARQUISE Stop: 09/16/16 08:59 Last Admin: 08/05/16 10:13 Dose: Not Given Epoetin Bernardino (Epogen) 10,000 units SUBQ TuThSa [facility] Stop: 10/01/16 14:14 Last Admin: 08/04/16 18:16 Dose: 10,000 units Haloperidol Lactate (Haldol) 5 mg IM Q8HR PRN PRN Reason: Agitation Stop: 08/25/16 12:10 Lactic Acid (Lac-Hydrin Cream) 1 appl TP BID [facility] Stop: 09/12/16 08:59 Last Admin: 08/05/16 10:13 Dose: Not Given Lactulose (Cephulac) 20 gm PO Q8HR [facility] Stop: 09/16/16 04:59 Last Admin: 08/05/16 14:09 Dose: Not Given Morphine Sulfate (Morphine) 2 mg IV Q4H PRN PRN Reason: SEVERE PAIN Stop: 09/23/16 12:59 Last Admin: 08/05/16 10:49 Dose: 2 mg General: Alert, No acute distress HEENT: Atraumatic, Mucous membr. moist/pink Neck: Supple, +2 carotid pulse wo bruit Cardiovascular: Regular rate, Normal S1, Normal S2 Lungs: Other (decrease BS) Abdomen: Bowel sounds, Soft Extremities: Edema ((+) 2 bipedal edema) Neurological: Sensation intact Skin: no Rash - Procedures Procedures: Procedures Procedure Code Date ARTERY-VEIN NONAUTOGRAFT 16444 06/22/16 BLOOD TRANSFUSION SERVICE 68344 06/22/16 BYPASS L BRACH ART TO UP ARM VEIN W NONAUT SUB, OPEN [id number] 06/22/16 FLUOROSCOPY OF SUP VENA CAVA USING [facility] CONTRAST, GUIDANCE [id number] 06/22/16 INSERTION OF INFUSION DEV INTO SUP VENA CAVA, PERC APPROACH [id number] 06/22/[address] PL[address] CATHETER IN VEIN 91655 06/22/16 TRANSFUSE NONAUT RED BLOOD CELLS IN PERIPH VEIN, PERC 37305S9 06/22/16 Assessment/Plan - Problem List Patient Problems: All Active Problems Anemia (Acute) D64.9 ESRD (end stage renal disease) (Acute) ESRD (end stage renal disease) on dialysis (Acute) N18.6, Z99.2 ESRD (end stage renal disease) on dialysis (Acute) N18.6, Z99.[address] DR FRY (Acute) - Assessment Assessment: esrd on hd persistent cellulitis b/l lower ext acute on chronic anemia possible gi bleed ohs chronic a. fib hypothyroid anasarca functional quadriplegia chronic venous stasis dermatitis acute decomp psychosis hypokalemia, hypomagnesemia s/p left avg - Plan Plan: Lab - Result Diagrams 07/19/16 09:50 Lab - Result Diagrams 07/22/16 05:21 Lab - Result Diagrams 07/24/16 05:00 Lab - Result Diagrams Lab - Result Diagrams 08/04/16 08:33 Lab - Result Diagrams 08/05/16 05:00 08/04/16 05:45 08/04/16 05:45 07/28/16 05:30 07/28/16 05:30 07/24/16 05:00 07/20/16 05:50 07/19/16 09:50 latest hgb/hct were 7.9/23.9 dialyzed yesterday & tolerated it well placement in progress K up to 3.6 started epogen Lab - Result Diagrams 07/19/16 09:50 07/20/16 05:50 Lab - Result Diagrams 07/21/16 06:16 07/20/16 05:50 Lab - Result Diagrams 07/26/16 11:05 07/24/16 05:00 Lab - Result Diagrams 07/29/16 05:55 07/28/16 05:30
[2016-08-06] MEDS: Lactulose 10 Gm/15 mL 30mL UDC PO SCH ×3 (06:20→23:10)
[2016-08-06] MEDS: Ammonium Lactate Cream 140 gm Tube TP SCH ×2 (09:20→16:58)
[2016-08-06] MEDS: Menthol/Zinc Oxide Oint 113gm Tube TP SCH ×2 (12:49→16:58)
--- NOTE | 2016-08-06 13:12 | General Progress Note ---
Subjective - Review of Systems Service Date: 08/06/16 Subjective: more cooperative today, comfortable Objective - Results Result Diagrams: 08/05/16 05:00 08/04/16 05:45 Recent Labs: Laboratory Last Values WBC 4.6 Th/cmm (4.8-10.8) L 08/05/16 05:00 RBC 2.70 Mil/cmm (4.30-5.70) L 08/05/16 05:00 Hgb 7.9 gm/dL (13.2-17.3) L* 08/05/16 05:00 Hct 23.1 % (39.0-49.0) L* 08/05/16 05:00 MCV 85.7 fl (80-99) 08/05/16 05:00 MCH 29.2 pg (26.0-30.0) 08/05/16 05:00 MCHC Differential 34.0 pg (28.0-36.0) 08/05/16 05:00 RDW 14.6 % (11.5-20.0) 08/05/16 05:00 Plt Count 111 Th/cmm (150-400) L 08/05/16 05:00 MPV 9.1 fl 08/05/16 05:00 Neutrophils % 56.8 % (40.0-80.0) 07/07/16 06:00 Band Neutrophils % 1 % (0-10) 07/28/16 05:30 Lymphocytes % 18.4 % (20.0-50.0) L 07/07/16 06:00 Monocytes % 13.8 % (2.0-10.0) H 07/07/16 06:00 Eosinophils % 11.0 % (0.0-5.0) H 07/07/16 06:00 Basophils % 0.0 % (0.0-2.0) 07/07/16 06:00 Neutrophils (Manual) 61 % (40-80) 08/05/16 05:00 Lymphocytes 16 % (20-50) L 08/05/16 05:00 Monocytes 13 % (2-10) H 08/05/16 05:00 Eosinophils 10 % (0-5) H 08/05/16 05:00 Basophils 3 % (0-3) 08/04/16 08:33 Myelocytes 1 % 07/14/16 16:00 Hypochromia 1+ 07/20/16 23:30 Platelet Estimate DECREASED PLATELETS (NORMAL) 08/05/16 05:00 Platelet Morphology GIANT PLATELETS SEEN (NORMAL) 08/05/16 05:00 Polychromasia 1+ 07/20/16 23:30 Anisocytosis 1+ 08/05/16 05:00 Microcytosis 1+ 07/14/16 16:00 RBC Morph Micro Appear ABNORMAL (NORMAL) 08/05/16 05:00 PT 12.7 SECONDS (9.5-11.5) H 07/01/16 06:57 INR 1.26 (0.5-1.4) 07/01/16 06:57 PTT (Actin FS) 28.3 SECONDS (26.0-38.0) 06/28/16 04:38 Specimen Source art 06/22/16 20:03 Sample Site Right Radial 06/22/16 20:03 pH 7.49 (7.35-7.45) H 06/22/16 20:03 pCO2 34.0 mmHg (35.0-45.0) L 06/22/16 20:03 pO2 97.0 mmHg (80.0-100.0) 06/22/16 20:03 HCO3 25.9 mmol/L (20.0-26.0) 06/22/16 20:03 Base Excess 2.8 mmol/L (-3.0-3.0) 06/22/16 20:03 O2 Saturation 98.0 % (92.0-100.0) 06/22/16 20:03 Estuardo Test P 06/22/16 20:03 Vent Rate NA 06/22/16 20:03 Inspired O2 21 06/22/16 20:03 Tidal Volume NA 06/22/16 20:03 PEEP NA 06/22/16 20:03 Pressure (ins/psv/peep) NA 06/22/16 20:03 Critical Value RPINEIRA 06/22/16 20:03 Sodium 130 mEq/L (136-145) L 08/04/16 05:45 Potassium 3.6 mEq/L (3.5-5.1) 08/04/16 05:45 Chloride 95 mEq/L (98-107) L 08/04/16 05:45 Carbon Dioxide 28.3 mEq/L (21.0-31.0) 08/04/16 05:45 Anion Gap 10.3 (7.0-16.0) 08/04/16 05:45 BUN 40 mg/dL (7-25) H 08/04/16 05:45 Creatinine 4.0 mg/dL (0.7-1.3) H 08/04/16 05:45 Est GFR ( Amer) 20.6 ml/min (>90) 08/04/16 05:45 Est GFR (Non-Af Amer) 17.0 ml/min 08/04/16 05:45 BUN/Creatinine Ratio 10.0 08/04/16 05:45 Glucose 96 mg/dL (70-105) 08/04/16 05:45 Calcium 8.8 mg/dL (8.6-10.3) 08/04/16 05:45 Phosphorus 5.5 mg/dL (2.5-5.0) H 07/19/16 09:50 Magnesium 1.9 mg/dL (1.9-2.7) 08/04/16 05:45 Iron 42 ug/dL (38-169) 06/28/16 04:38 TIBC 269 ug/dL (250-450) 06/28/16 04:38 Iron Saturation 16 % (15-55) 06/28/16 04:38 Unsaturated IBC 227 ug/dL (111-343) 06/28/16 04:38 Ferritin 150 ng/mL (30-400) 06/26/16 08:30 Total Bilirubin 0.8 mg/dL (0.3-1.0) 07/28/16 05:30 Direct Bilirubin 0.70 mg/dL (0.0-0.2) H 06/28/16 04:38 GGTP 14 IU/L (0-65) 06/28/16 04:38 AST 52 U/L (13-39) H 07/28/16 05:30 ALT 30 U/L (7-52) 07/28/16 05:30 Alkaline Phosphatase 38 U/L (34-104) 07/28/16 05:30 Ammonia 105 umol/L (16-53) H 07/02/16 06:40 Troponin I < 0.01 ng/mL (0.01-0.05) L 06/22/16 19:33 B-Natriuretic Peptide 668.0 pg/mL (5.0-100.0) H 06/22/16 19:33 Total Protein 7.8 gm/dL (6.0-8.3) 07/28/16 05:30 Albumin 2.7 gm/dL (4.2-5.5) L 07/28/16 05:30 Globulin 5.1 gm/dL 07/28/16 05:30 Albumin/Globulin Ratio 0.5 (1.0-1.8) L 07/28/16 05:30 Amylase 28 U/L (29-103) L 07/02/16 06:40 Lipase 31 U/L (11-82) 07/02/16 06:40 Urine Source CLEAN C 06/29/16 05:55 Urine Color YELLOW 06/29/16 05:55 Urine Clarity HAZY (CLEAR) 06/29/16 05:55 Urine pH 5.5 06/29/16 05:55 Ur Specific [place] 1.015 (1.005-1.030) 06/29/16 05:55 Urine Protein 30 mg/dL (NEGATIVE) H 06/29/16 05:55 Urine Glucose (UA) NEGATIVE mg/dL (NEGATIVE) 06/29/16 05:55 Urine Ketones NEGATIVE mg/dL (NEGATIVE) 06/29/16 05:55 Urine Blood NEGATIVE (NEGATIVE) 06/29/16 05:55 Urine Nitrate NEGATIVE (NEGATIVE) 06/29/16 05:55 Urine Bilirubin NEGATIVE (NEGATIVE) 06/29/16 05:55 Urine Urobilinogen 0.2 E.U./dL (0.2 - 1.0) 06/29/16 05:55 Ur Leukocyte Esterase TRACE (NEGATIVE) H 06/29/16 05:55 Urine RBC 0-2 /hpf (0-5) H 06/29/16 05:55 Urine WBC 6-10 /hpf (0-5) H 06/29/16 05:55 Ur Epithelial Cells FEW /lpf (FEW) 06/29/16 05:55 Urine Bacteria MANY /hpf (NONE SEEN) 06/29/16 05:55 Stool Occult Blood POSITIVE (NEGATIVE) 06/24/16 16:00 Random Vancomycin 13.4 ug/mL (5.0-40.0) 06/28/16 04:38 RPR NONREACTIVE (NONREACTIVE) 06/22/16 19:33 Hepatitis A IgM Ab Negative (Negative) 06/29/16 05:49 Hep Bs Antigen Negative (Negative) 06/29/16 05:49 Hep B Core IgM Ab Negative (Negative) 06/29/16 05:49 Hepatitis C Antibody >11.0 s/co ratio (0.0-0.9) H 06/29/16 05:49 Blood Type A POSITIVE 08/04/16 23:20 Antibody Screen NEGATIVE 08/04/16 23:20 Crossmatch See Detail 08/04/16 23:20 - Physical Exam Vitals and I&O: Vital Signs Temp 97.4 F 08/06/16 11:16 Pulse 112 08/06/16 11:16 Resp 18 08/06/16 11:16 BP 111/68 08/06/16 11:16 Pulse Ox 97 08/06/16 11:16 Intake & Output 08/05/16 08/06/16 08/06/16 18:59 06:59 18:59 Intake Total 400 Balance 400 Intake: Oral 400 Other: # Voids 3 # Bowel Movements 2 Stool Characteristics Soft Soft Active Medications: Current Medications Acetaminophen (Tylenol) 650 mg PO Q6H PRN PRN Reason: temperature above 100F Stop: 09/28/16 16:14 Last Admin: 07/30/16 16:27 Dose: 650 mg Albuterol/Ipratropium (Duoneb Neb) 3 ml HHN Q2HR PRN PRN Reason: Shortness of Breath or Wheeze Stop: 09/08/16 09:51 Calamine/Phenol (Calmoseptine) 1 appl TP QID PRN PRN Reason: Skin Irritation Stop: 09/08/16 18:33 Last Admin: 07/30/16 15:02 Dose: 1 appl Calamine/Phenol (Calmoseptine) 1 appl TP QID MARQUISE Stop: 09/08/16 20:59 Last Admin: 08/06/16 12:49 Dose: 1 appl Diphenhydramine HCl (Benadryl 50 Mg/Ml) 50 mg IM Q8HR PRN PRN Reason: Agitation Stop: 08/25/16 12:10 Docusate Sodium (Colace) 100 mg PO Q12HR MARQUISE Stop: 09/16/16 08:59 Last Admin: 08/06/16 09:19 Dose: 100 mg Epoetin Bernardino (Epogen) 10,000 units SUBQ TuThSa [facility] Stop: 10/01/16 14:14 Last Admin: 08/04/16 18:16 Dose: 10,000 units Haloperidol Lactate (Haldol) 5 mg IM Q8HR PRN PRN Reason: Agitation Stop: 08/25/16 12:10 Lactic Acid (Lac-Hydrin Cream) 1 appl TP BID [facility] Stop: 09/12/16 08:59 Last Admin: 08/06/16 09:20 Dose: 1 appl Lactulose (Cephulac) 20 gm PO Q8HR [facility] Stop: 09/16/16 04:59 Last Admin: 08/06/16 12:49 Dose: 20 gm Morphine Sulfate (Morphine) 2 mg IV Q4H PRN PRN Reason: SEVERE PAIN Stop: 09/23/16 12:59 Last Admin: 08/05/16 21:32 Dose: 2 mg General: Alert, No acute distress, Moderate distress HEENT: Atraumatic, Mucous membr. moist/pink Neck: Supple, +2 carotid pulse wo bruit Cardiovascular: Regular rate, Normal S1, Normal S2 Lungs: Other (few rhonchi) Abdomen: Bowel sounds, Soft Extremities: Edema ((+) 2 bipedal edema) Neurological: Sensation intact Skin: no Rash - Procedures Procedures: Procedures Procedure Code Date ARTERY-VEIN NONAUTOGRAFT 49645 06/22/16 BLOOD TRANSFUSION SERVICE 56912 06/22/16 BYPASS L BRACH ART TO UP ARM VEIN W NONAUT SUB, OPEN [id number] 06/22/16 FLUOROSCOPY OF SUP VENA CAVA USING [facility] CONTRAST, GUIDANCE [id number] 06/22/16 INSERTION OF INFUSION DEV INTO SUP VENA CAVA, PERC APPROACH [id number] 06/22/[address] PL[address] CATHETER IN VEIN 04867 06/22/16 TRANSFUSE NONAUT RED BLOOD CELLS IN PERIPH VEIN, PERC [id number] 06/22/16 Assessment/Plan - Problem List Patient Problems: All Active Problems Anemia (Acute) D64.9 ESRD (end stage renal disease) (Acute) ESRD (end stage renal disease) on dialysis (Acute) N18.6, Z99.2 ESRD (end stage renal disease) on dialysis (Acute) N18.6, Z99.[address] DR FRY (Acute) - Assessment Assessment: esrd on hd persistent cellulitis b/l lower ext acute on chronic anemia possible gi bleed ohs chronic a. fib hypothyroid anasarca functional quadriplegia chronic venous stasis dermatitis acute decomp psychosis hypokalemia, hypomagnesemia s/p left avg - Plan Plan: Lab - Result Diagrams 07/19/16 09:50 Lab - Result Diagrams 07/22/16 05:21 Lab - Result Diagrams 07/24/16 05:00 Lab - Result Diagrams Lab - Result Diagrams 08/04/16 08:33 Lab - Result Diagrams 08/05/16 05:00 08/04/16 05:45 08/04/16 05:45 07/28/16 05:30 07/28/16 05:30 07/24/16 05:00 07/20/16 05:50 07/19/16 09:50 latest hgb/hct were 7.9/23.9 dialyzed Sat & tolerated it well placement in progress K up to 3.6 started epogen Lab - Result Diagrams 07/19/16 09:50 07/20/16 05:50 Lab - Result Diagrams 07/21/16 06:16 07/20/16 05:50 Lab - Result Diagrams 07/26/16 11:05 07/24/16 05:00 Lab - Result Diagrams 07/29/16 05:55 07/28/16 05:30
[2016-08-06] MEDS: Morphine Sulfate 2 mg/mL 1mL Syr IV PRN (23:09)
--- NOTE | 2016-08-07 02:17 | Progress Notes ---
SUBJECTIVE: The patient was seen in his room lying in his bed. The patient appears to be comfortable and cooperative at this time. OBJECTIVE: HEENT: Head is atraumatic and normocephalic. Bilateral pupils are equally round and reactive to light and accommodation. NECK: Supple. No JVD. CARDIOVASCULAR: S1 and S2 heard without murmur. PULMONARY: Mild inspiratory wheezing noted. GASTROINTESTINAL: Soft and nontender. Positive bowel sounds. EXTREMITIES: Bilateral lower extremity edema. ASSESSMENT: 1. Chronic atrial fibrillation. 2. Chronic anemia. 3. End-stage renal disease, hemodialysis dependent. 4. Status post left ____. 5. Lymphedema, bilateral lower extremities. 6. Hypothyroidism. 7. Quadriplegia. 8. Schizophrenia. 9. Obesity. PLAN: We will follow up the social work faculty member and wrapper caser to have the placement for this patient. JOB# [id number]
[2016-08-07] MEDS: Lactulose 10 Gm/15 mL 30mL UDC PO SCH ×3 (05:16→21:35)
[2016-08-07] MEDS: Menthol/Zinc Oxide Oint 113gm Tube TP SCH ×5 (05:17→21:36)
[2016-08-07 07:25] LABS: ANION GAP 10.9 (7.0-16.0); BUN/CREATININE RATIO 9.8; CALCIUM SERUM 8.9 mg/dL (8.6-10.3); CARBON DIOXIDE 26.6 mEq/L (21.0-31.0); POTASSIUM SERUM 3.5 mEq/L (3.5-5.1)
[2016-08-07 07:31] LABS: CREATININE - SERUM 4.2 mg/dL (0.7-1.3)
[2016-08-07 07:34] LABS: MEAN CELL VOLUME 83.2 fl (80-99); MEAN CORPUSCULAR HEMOGLOBIN 28.1 pg (26.0-30.0); MEAN CORPUSCULAR HGB CONC 33.7 pg (28.0-36.0); MEAN PLATELET VOLUME 9.6 fl; PLATELET COUNT 120 Th/cmm (150-400); RED BLOOD COUNT 2.78 Mil/cmm (4.30-5.70); RED CELL DISTRIBUTION WIDTH 14.1 % (11.5-20.0); WHITE BLOOD COUNT 5.2 Th/cmm (4.8-10.8)
[2016-08-07 07:41] LABS: HEMATOCRIT 23.1 % (39.0-49.0); HEMOGLOBIN 7.8 gm/dL (13.2-17.3)
--- NOTE | 2016-08-07 09:10 | General Progress Note ---
Subjective - Review of Systems Events since last encounter: patient laying in bed no distress alert awake Objective - Results Result Diagrams: 08/07/16 06:50 08/07/16 06:50 Recent Labs: Laboratory Last Values WBC 5.2 Th/cmm (4.8-10.8) 08/07/16 06:50 RBC 2.78 Mil/cmm (4.30-5.70) L 08/07/16 06:50 Hgb 7.8 gm/dL (13.2-17.3) L* 08/07/16 06:50 Hct 23.1 % (39.0-49.0) L* 08/07/16 06:50 MCV 83.2 fl (80-99) 08/07/16 06:50 MCH 28.1 pg (26.0-30.0) 08/07/16 06:50 MCHC Differential 33.7 pg (28.0-36.0) 08/07/16 06:50 RDW 14.1 % (11.5-20.0) 08/07/16 06:50 Plt Count 120 Th/cmm (150-400) L 08/07/16 06:50 MPV 9.6 fl 08/07/16 06:50 Neutrophils % 56.8 % (40.0-80.0) 07/07/16 06:00 Band Neutrophils % 1 % (0-10) 07/28/16 05:30 Lymphocytes % 18.4 % (20.0-50.0) L 07/07/16 06:00 Monocytes % 13.8 % (2.0-10.0) H 07/07/16 06:00 Eosinophils % 11.0 % (0.0-5.0) H 07/07/16 06:00 Basophils % 0.0 % (0.0-2.0) 07/07/16 06:00 Neutrophils (Manual) 61 % (40-80) 08/05/16 05:00 Lymphocytes 16 % (20-50) L 08/05/16 05:00 Monocytes 13 % (2-10) H 08/05/16 05:00 Eosinophils 10 % (0-5) H 08/05/16 05:00 Basophils 3 % (0-3) 08/04/16 08:33 Myelocytes 1 % 07/14/16 16:00 Hypochromia 1+ 07/20/16 23:30 Platelet Estimate DECREASED PLATELETS (NORMAL) 08/05/16 05:00 Platelet Morphology GIANT PLATELETS SEEN (NORMAL) 08/05/16 05:00 Polychromasia 1+ 07/20/16 23:30 Anisocytosis 1+ 08/05/16 05:00 Microcytosis 1+ 07/14/16 16:00 RBC Morph Micro Appear ABNORMAL (NORMAL) 08/05/16 05:00 PT 12.7 SECONDS (9.5-11.5) H 07/01/16 06:57 INR 1.26 (0.5-1.4) 07/01/16 06:57 PTT (Actin FS) 28.3 SECONDS (26.0-38.0) 06/28/16 04:38 Specimen Source art 06/22/16 20:03 Sample Site Right Radial 06/22/16 20:03 pH 7.49 (7.35-7.45) H 06/22/16 20:03 pCO2 34.0 mmHg (35.0-45.0) L 06/22/16 20:03 pO2 97.0 mmHg (80.0-100.0) 06/22/16 20:03 HCO3 25.9 mmol/L (20.0-26.0) 06/22/16 20:03 Base Excess 2.8 mmol/L (-3.0-3.0) 06/22/16 20:03 O2 Saturation 98.0 % (92.0-100.0) 06/22/16 20:03 Estuardo Test P 06/22/16 20:03 Vent Rate NA 06/22/16 20:03 Inspired O2 21 06/22/16 20:03 Tidal Volume NA 06/22/16 20:03 PEEP NA 06/22/16 20:03 Pressure (ins/psv/peep) NA 06/22/16 20:03 Critical Value RPINEIRA 06/22/16 20:03 Sodium 126 mEq/L (136-145) L 08/07/16 06:50 Potassium 3.5 mEq/L (3.5-5.1) 08/07/16 06:50 Chloride 92 mEq/L (98-107) L 08/07/16 06:50 Carbon Dioxide 26.6 mEq/L (21.0-31.0) 08/07/16 06:50 Anion Gap 10.9 (7.0-16.0) 08/07/16 06:50 BUN 41 mg/dL (7-25) H 08/07/16 06:50 Creatinine 4.2 mg/dL (0.7-1.3) H* 08/07/16 06:50 Est GFR ( Amer) 19.5 ml/min (>90) 08/07/16 06:50 Est GFR (Non-Af Amer) 16.1 ml/min 08/07/16 06:50 BUN/Creatinine Ratio 9.8 08/07/16 06:50 Glucose 95 mg/dL (70-105) 08/07/16 06:50 Calcium 8.9 mg/dL (8.6-10.3) 08/07/16 06:50 Phosphorus 5.5 mg/dL (2.5-5.0) H 07/19/16 09:50 Magnesium 1.9 mg/dL (1.9-2.7) 08/04/16 05:45 Iron 42 ug/dL (38-169) 06/28/16 04:38 TIBC 269 ug/dL (250-450) 06/28/16 04:38 Iron Saturation 16 % (15-55) 06/28/16 04:38 Unsaturated IBC 227 ug/dL (111-343) 06/28/16 04:38 Ferritin 150 ng/mL (30-400) 06/26/16 08:30 Total Bilirubin 0.8 mg/dL (0.3-1.0) 07/28/16 05:30 Direct Bilirubin 0.70 mg/dL (0.0-0.2) H 06/28/16 04:38 GGTP 14 IU/L (0-65) 06/28/16 04:38 AST 52 U/L (13-39) H 07/28/16 05:30 ALT 30 U/L (7-52) 07/28/16 05:30 Alkaline Phosphatase 38 U/L (34-104) 07/28/16 05:30 Ammonia 105 umol/L (16-53) H 07/02/16 06:40 Troponin I < 0.01 ng/mL (0.01-0.05) L 06/22/16 19:33 B-Natriuretic Peptide 668.0 pg/mL (5.0-100.0) H 06/22/16 19:33 Total Protein 7.8 gm/dL (6.0-8.3) 07/28/16 05:30 Albumin 2.7 gm/dL (4.2-5.5) L 07/28/16 05:30 Globulin 5.1 gm/dL 07/28/16 05:30 Albumin/Globulin Ratio 0.5 (1.0-1.8) L 07/28/16 05:30 Amylase 28 U/L (29-103) L 07/02/16 06:40 Lipase 31 U/L (11-82) 07/02/16 06:40 Urine Source CLEAN C 06/29/16 05:55 Urine Color YELLOW 06/29/16 05:55 Urine Clarity HAZY (CLEAR) 06/29/16 05:55 Urine pH 5.5 06/29/16 05:55 Ur Specific [place] 1.015 (1.005-1.030) 06/29/16 05:55 Urine Protein 30 mg/dL (NEGATIVE) H 06/29/16 05:55 Urine Glucose (UA) NEGATIVE mg/dL (NEGATIVE) 06/29/16 05:55 Urine Ketones NEGATIVE mg/dL (NEGATIVE) 06/29/16 05:55 Urine Blood NEGATIVE (NEGATIVE) 06/29/16 05:55 Urine Nitrate NEGATIVE (NEGATIVE) 06/29/16 05:55 Urine Bilirubin NEGATIVE (NEGATIVE) 06/29/16 05:55 Urine Urobilinogen 0.2 E.U./dL (0.2 - 1.0) 06/29/16 05:55 Ur Leukocyte Esterase TRACE (NEGATIVE) H 06/29/16 05:55 Urine RBC 0-2 /hpf (0-5) H 06/29/16 05:55 Urine WBC 6-10 /hpf (0-5) H 06/29/16 05:55 Ur Epithelial Cells FEW /lpf (FEW) 06/29/16 05:55 Urine Bacteria MANY /hpf (NONE SEEN) 06/29/16 05:55 Stool Occult Blood POSITIVE (NEGATIVE) 06/24/16 16:00 Random Vancomycin 13.4 ug/mL (5.0-40.0) 06/28/16 04:38 RPR NONREACTIVE (NONREACTIVE) 06/22/16 19:33 Hepatitis A IgM Ab Negative (Negative) 06/29/16 05:49 Hep Bs Antigen Negative (Negative) 06/29/16 05:49 Hep B Core IgM Ab Negative (Negative) 06/29/16 05:49 Hepatitis C Antibody >11.0 s/co ratio (0.0-0.9) H 06/29/16 05:49 Blood Type A POSITIVE 08/04/16 23:20 Antibody Screen NEGATIVE 08/04/16 23:20 Crossmatch See Detail 08/04/16 23:20 - Physical Exam Vitals and I&O: Vital Signs Temp 97.6 F 08/07/16 04:00 Pulse 102 08/07/16 04:00 Resp 19 08/07/16 04:00 BP 98/57 08/07/16 04:00 Pulse Ox 97 08/07/16 04:00 Intake & Output 08/06/16 08/07/16 08/07/16 18:59 06:59 18:59 Intake Total 720 400 Balance 720 400 Intake: Oral 720 400 Other: # Voids 3 3 Stool Characteristics Soft Active Medications: Current Medications Acetaminophen (Tylenol) 650 mg PO Q6H PRN PRN Reason: temperature above 100F Stop: 09/28/16 16:14 Last Admin: 07/30/16 16:27 Dose: 650 mg Albuterol/Ipratropium (Duoneb Neb) 3 ml HHN Q2HR PRN PRN Reason: Shortness of Breath or Wheeze Stop: 09/08/16 09:51 Calamine/Phenol (Calmoseptine) 1 appl TP QID PRN PRN Reason: Skin Irritation Stop: 09/08/16 18:33 Last Admin: 07/30/16 15:02 Dose: 1 appl Calamine/Phenol (Calmoseptine) 1 appl TP QID MARQUISE Stop: 09/08/16 20:59 Last Admin: 08/07/16 05:17 Dose: Not Given Diphenhydramine HCl (Benadryl 50 Mg/Ml) 50 mg IM Q8HR PRN PRN Reason: Agitation Stop: 08/25/16 12:10 Docusate Sodium (Colace) 100 mg PO Q12HR MARQUISE Stop: 09/16/16 08:59 Last Admin: 08/06/16 23:10 Dose: Not Given Epoetin Bernardino (Epogen) 10,000 units SUBQ TuThSa [facility] Stop: 10/01/16 14:14 Last Admin: 08/04/16 18:16 Dose: 10,000 units Haloperidol Lactate (Haldol) 5 mg IM Q8HR PRN PRN Reason: Agitation Stop: 08/25/16 12:10 Lactic Acid (Lac-Hydrin Cream) 1 appl TP BID [facility] Stop: 09/12/16 08:59 Last Admin: 08/06/16 16:58 Dose: 1 appl Lactulose (Cephulac) 20 gm PO Q8HR [facility] Stop: 09/16/16 04:59 Last Admin: 08/07/16 05:16 Dose: Not Given Miscellaneous (Clinical Monitoring) 1 ea MC DAILY PRN PRN Reason: RENAL Stop: 10/06/16 08:17 Morphine Sulfate (Morphine) 2 mg IV Q4H PRN PRN Reason: SEVERE PAIN Stop: 09/23/16 12:59 Last Admin: 08/06/16 23:09 Dose: 2 mg General: No acute distress HEENT: Atraumatic Neck: Supple Cardiovascular: Regular rate Lungs: Clear to auscultation Abdomen: Bowel sounds - Procedures Procedures: Procedures Procedure Code Date ARTERY-VEIN NONAUTOGRAFT 69334 06/22/16 BLOOD TRANSFUSION SERVICE 35138 06/22/16 BYPASS L BRACH ART TO UP ARM VEIN W NONAUT SUB, OPEN [id number] 06/22/16 FLUOROSCOPY OF SUP VENA CAVA USING [facility] CONTRAST, GUIDANCE [id number] 06/22/16 INSERTION OF INFUSION DEV INTO SUP VENA CAVA, PERC APPROACH [id number] 06/22/[address] PL[address] CATHETER IN VEIN 19593 06/22/16 TRANSFUSE NONAUT RED BLOOD CELLS IN PERIPH VEIN, PERC [id number] 06/22/16 Assessment/Plan - Problem List Patient Problems: All Active Problems Anemia (Acute) D64.9 ESRD (end stage renal disease) (Acute) ESRD (end stage renal disease) on dialysis (Acute) N18.6, Z99.2 ESRD (end stage renal disease) on dialysis (Acute) N18.6, Z99.[address] FRY (Acute) - Assessment Assessment: 1. Cellulitis of legs. 2. Lymphedema of legs. 3. CKD 5 on HD. 4. Morbid obesity. 5 anemia 6 gi bleed 7 psychosis - Plan Plan: awaiting placement
[2016-08-07 09:30] LABS: ANISOCYTOSIS 1+; BAND NEUTROPHILE 3 % (0-10); EOSINOPHIL 8 % (0-5); NEUTROPHILS 62 % (40-80); PLATELET ESTIMATE DECREASED PLATELETS (NORMAL); PLATELET MORPHOLOGY NORMAL (NORMAL); TOTAL CELLS COUNTED 100
[2016-08-07] MEDS: Ammonium Lactate Cream 140 gm Tube TP SCH ×2 (09:50→17:21)
--- NOTE | 2016-08-07 13:33 | General Progress Note ---
Subjective - Review of Systems Service Date: 08/07/16 Subjective: more cooperative today, comfortable, being dialyzed Objective - Results Result Diagrams: 08/07/16 06:50 08/07/16 06:50 Recent Labs: Laboratory Last Values WBC 5.2 Th/cmm (4.8-10.8) 08/07/16 06:50 RBC 2.78 Mil/cmm (4.30-5.70) L 08/07/16 06:50 Hgb 7.8 gm/dL (13.2-17.3) L* 08/07/16 06:50 Hct 23.1 % (39.0-49.0) L* 08/07/16 06:50 MCV 83.2 fl (80-99) 08/07/16 06:50 MCH 28.1 pg (26.0-30.0) 08/07/16 06:50 MCHC Differential 33.7 pg (28.0-36.0) 08/07/16 06:50 RDW 14.1 % (11.5-20.0) 08/07/16 06:50 Plt Count 120 Th/cmm (150-400) L 08/07/16 06:50 MPV 9.6 fl 08/07/16 06:50 Neutrophils % 56.8 % (40.0-80.0) 07/07/16 06:00 Band Neutrophils % 3 % (0-10) 08/07/16 06:50 Lymphocytes % 18.4 % (20.0-50.0) L 07/07/16 06:00 Monocytes % 13.8 % (2.0-10.0) H 07/07/16 06:00 Eosinophils % 11.0 % (0.0-5.0) H 07/07/16 06:00 Basophils % 0.0 % (0.0-2.0) 07/07/16 06:00 Neutrophils (Manual) 62 % (40-80) 08/07/16 06:50 Lymphocytes 12 % (20-50) L 08/07/16 06:50 Monocytes 15 % (2-10) H 08/07/16 06:50 Eosinophils 8 % (0-5) H 08/07/16 06:50 Basophils 3 % (0-3) 08/04/16 08:33 Myelocytes 1 % 07/14/16 16:00 Hypochromia 1+ 07/20/16 23:30 Platelet Estimate DECREASED PLATELETS (NORMAL) 08/07/16 06:50 Platelet Morphology NORMAL (NORMAL) 08/07/16 06:50 Polychromasia 1+ 07/20/16 23:30 Anisocytosis 1+ 08/07/16 06:50 Microcytosis 1+ 07/14/16 16:00 RBC Morph Micro Appear ABNORMAL (NORMAL) 08/07/16 06:50 PT 12.7 SECONDS (9.5-11.5) H 07/01/16 06:57 INR 1.26 (0.5-1.4) 07/01/16 06:57 PTT (Actin FS) 28.3 SECONDS (26.0-38.0) 06/28/16 04:38 Specimen Source art 06/22/16 20:03 Sample Site Right Radial 06/22/16 20:03 pH 7.49 (7.35-7.45) H 06/22/16 20:03 pCO2 34.0 mmHg (35.0-45.0) L 06/22/16 20:03 pO2 97.0 mmHg (80.0-100.0) 06/22/16 20:03 HCO3 25.9 mmol/L (20.0-26.0) 06/22/16 20:03 Base Excess 2.8 mmol/L (-3.0-3.0) 06/22/16 20:03 O2 Saturation 98.0 % (92.0-100.0) 06/22/16 20:03 Estuardo Test P 06/22/16 20:03 Vent Rate NA 06/22/16 20:03 Inspired O2 21 06/22/16 20:03 Tidal Volume NA 06/22/16 20:03 PEEP NA 06/22/16 20:03 Pressure (ins/psv/peep) NA 06/22/16 20:03 Critical Value RPINEIRA 06/22/16 20:03 Sodium 126 mEq/L (136-145) L 08/07/16 06:50 Potassium 3.5 mEq/L (3.5-5.1) 08/07/16 06:50 Chloride 92 mEq/L (98-107) L 08/07/16 06:50 Carbon Dioxide 26.6 mEq/L (21.0-31.0) 08/07/16 06:50 Anion Gap 10.9 (7.0-16.0) 08/07/16 06:50 BUN 41 mg/dL (7-25) H 08/07/16 06:50 Creatinine 4.2 mg/dL (0.7-1.3) H* 08/07/16 06:50 Est GFR ( Amer) 19.5 ml/min (>90) 08/07/16 06:50 Est GFR (Non-Af Amer) 16.1 ml/min 08/07/16 06:50 BUN/Creatinine Ratio 9.8 08/07/16 06:50 Glucose 95 mg/dL (70-105) 08/07/16 06:50 Calcium 8.9 mg/dL (8.6-10.3) 08/07/16 06:50 Phosphorus 5.5 mg/dL (2.5-5.0) H 07/19/16 09:50 Magnesium 1.9 mg/dL (1.9-2.7) 08/04/16 05:45 Iron 42 ug/dL (38-169) 06/28/16 04:38 TIBC 269 ug/dL (250-450) 06/28/16 04:38 Iron Saturation 16 % (15-55) 06/28/16 04:38 Unsaturated IBC 227 ug/dL (111-343) 06/28/16 04:38 Ferritin 150 ng/mL (30-400) 06/26/16 08:30 Total Bilirubin 0.8 mg/dL (0.3-1.0) 07/28/16 05:30 Direct Bilirubin 0.70 mg/dL (0.0-0.2) H 06/28/16 04:38 GGTP 14 IU/L (0-65) 06/28/16 04:38 AST 52 U/L (13-39) H 07/28/16 05:30 ALT 30 U/L (7-52) 07/28/16 05:30 Alkaline Phosphatase 38 U/L (34-104) 07/28/16 05:30 Ammonia 105 umol/L (16-53) H 07/02/16 06:40 Troponin I < 0.01 ng/mL (0.01-0.05) L 06/22/16 19:33 B-Natriuretic Peptide 668.0 pg/mL (5.0-100.0) H 06/22/16 19:33 Total Protein 7.8 gm/dL (6.0-8.3) 07/28/16 05:30 Albumin 2.7 gm/dL (4.2-5.5) L 07/28/16 05:30 Globulin 5.1 gm/dL 07/28/16 05:30 Albumin/Globulin Ratio 0.5 (1.0-1.8) L 07/28/16 05:30 Amylase 28 U/L (29-103) L 07/02/16 06:40 Lipase 31 U/L (11-82) 07/02/16 06:40 Urine Source CLEAN C 06/29/16 05:55 Urine Color YELLOW 06/29/16 05:55 Urine Clarity HAZY (CLEAR) 06/29/16 05:55 Urine pH 5.5 06/29/16 05:55 Ur Specific Stevenson 1.015 (1.005-1.030) 06/29/16 05:55 Urine Protein 30 mg/dL (NEGATIVE) H 06/29/16 05:55 Urine Glucose (UA) NEGATIVE mg/dL (NEGATIVE) 06/29/16 05:55 Urine Ketones NEGATIVE mg/dL (NEGATIVE) 06/29/16 05:55 Urine Blood NEGATIVE (NEGATIVE) 06/29/16 05:55 Urine Nitrate NEGATIVE (NEGATIVE) 06/29/16 05:55 Urine Bilirubin NEGATIVE (NEGATIVE) 06/29/16 05:55 Urine Urobilinogen 0.2 E.U./dL (0.2 - 1.0) 06/29/16 05:55 Ur Leukocyte Esterase TRACE (NEGATIVE) H 06/29/16 05:55 Urine RBC 0-2 /hpf (0-5) H 06/29/16 05:55 Urine WBC 6-10 /hpf (0-5) H 06/29/16 05:55 Ur Epithelial Cells FEW /lpf (FEW) 06/29/16 05:55 Urine Bacteria MANY /hpf (NONE SEEN) 06/29/16 05:55 Stool Occult Blood POSITIVE (NEGATIVE) 06/24/16 16:00 Random Vancomycin 13.4 ug/mL (5.0-40.0) 06/28/16 04:38 RPR NONREACTIVE (NONREACTIVE) 06/22/16 19:33 Hepatitis A IgM Ab Negative (Negative) 06/29/16 05:49 Hep Bs Antigen Negative (Negative) 06/29/16 05:49 Hep B Core IgM Ab Negative (Negative) 06/29/16 05:49 Hepatitis C Antibody >11.0 s/co ratio (0.0-0.9) H 06/29/16 05:49 Blood Type A POSITIVE 08/04/16 23:20 Antibody Screen NEGATIVE 08/04/16 23:20 Crossmatch See Detail 08/04/16 23:20 - Physical Exam Vitals and I&O: Vital Signs Temp 97.6 F 08/07/16 11:36 Pulse 65 08/07/16 11:36 Resp 18 08/07/16 11:36 BP 127/65 08/07/16 11:36 Pulse Ox 94 08/07/16 11:36 Intake & Output 08/06/16 08/07/16 08/07/16 18:59 06:59 18:59 Intake Total 720 400 Balance 720 400 Intake: Oral 720 400 Other: # Voids 3 3 Stool Characteristics Soft Soft Active Medications: Current Medications Acetaminophen (Tylenol) 650 mg PO Q6H PRN PRN Reason: temperature above 100F Stop: 09/28/16 16:14 Last Admin: 07/30/16 16:27 Dose: 650 mg Albuterol/Ipratropium (Duoneb Neb) 3 ml HHN Q2HR PRN PRN Reason: Shortness of Breath or Wheeze Stop: 09/08/16 09:51 Calamine/Phenol (Calmoseptine) 1 appl TP QID PRN PRN Reason: Skin Irritation Stop: 09/08/16 18:33 Last Admin: 07/30/16 15:02 Dose: 1 appl Calamine/Phenol (Calmoseptine) 1 appl TP QID MARQUISE Stop: 09/08/16 20:59 Last Admin: 08/07/16 05:17 Dose: Not Given Diphenhydramine HCl (Benadryl 50 Mg/Ml) 50 mg IM Q8HR PRN PRN Reason: Agitation Stop: 08/25/16 12:10 Docusate Sodium (Colace) 100 mg PO Q12HR MARQUISE Stop: 09/16/16 08:59 Last Admin: 08/06/16 23:10 Dose: Not Given Epoetin Bernardino (Epogen) 10,000 units SUBQ TuThSa [facility] Stop: 10/01/16 14:14 Last Admin: 08/04/16 18:16 Dose: 10,000 units Haloperidol Lactate (Haldol) 5 mg IM Q8HR PRN PRN Reason: Agitation Stop: 08/25/16 12:10 Lactic Acid (Lac-Hydrin Cream) 1 appl TP BID [facility] Stop: 09/12/16 08:59 Last Admin: 08/06/16 16:58 Dose: 1 appl Lactulose (Cephulac) 20 gm PO Q8HR [facility] Stop: 09/16/16 04:59 Last Admin: 08/07/16 05:16 Dose: Not Given Miscellaneous (Clinical Monitoring) 1 ea MC DAILY PRN PRN Reason: RENAL Stop: 10/06/16 08:17 Morphine Sulfate (Morphine) 2 mg IV Q4H PRN PRN Reason: SEVERE PAIN Stop: 09/23/16 12:59 Last Admin: 08/06/16 23:09 Dose: 2 mg General: Alert, No acute distress HEENT: Atraumatic, Mucous membr. moist/pink Neck: Supple, +2 carotid pulse wo bruit Cardiovascular: Regular rate, Normal S1, Normal S2 Lungs: Other (few rhonchi) Abdomen: Bowel sounds, Soft Extremities: Edema ((+) 3 bipedal edema) Neurological: Sensation intact Skin: no Rash - Procedures Procedures: Procedures Procedure Code Date ARTERY-VEIN NONAUTOGRAFT 76644 06/22/16 BLOOD TRANSFUSION SERVICE 22242 06/22/16 BYPASS L BRACH ART TO UP ARM VEIN W NONAUT SUB, OPEN [id number] 06/22/16 FLUOROSCOPY OF SUP VENA CAVA USING [facility] CONTRAST, GUIDANCE [id number] 06/22/16 INSERTION OF INFUSION DEV INTO SUP VENA CAVA, PERC APPROACH [id number] 06/22/[address] PL[address] CATHETER IN VEIN 21219 06/22/16 TRANSFUSE NONAUT RED BLOOD CELLS IN PERIPH VEIN, PERC [id number] 06/22/16 Assessment/Plan - Problem List Patient Problems: All Active Problems Anemia (Acute) D64.9 ESRD (end stage renal disease) (Acute) ESRD (end stage renal disease) on dialysis (Acute) N18.6, Z99.2 ESRD (end stage renal disease) on dialysis (Acute) N18.6, Z99.[address] DR FRY (Acute) - Assessment Assessment: esrd on hd persistent cellulitis b/l lower ext acute on chronic anemia possible gi bleed ohs chronic a. fib hypothyroid anasarca functional quadriplegia chronic venous stasis dermatitis acute decomp psychosis hypokalemia, hypomagnesemia s/p left avg - Plan Plan: Lab - Result Diagrams 07/19/16 09:50 Lab - Result Diagrams 07/22/16 05:21 Lab - Result Diagrams 07/24/16 05:00 Lab - Result Diagrams Lab - Result Diagrams 08/04/16 08:33 Lab - Result Diagrams 08/05/16 05:00 08/04/16 05:45 08/04/16 05:45 07/28/16 05:30 07/28/16 05:30 07/24/16 05:00 07/20/16 05:50 07/19/16 09:50 latest hgb/hct were 7.8/23.1, remain stable currently being dialyzed placement in progress K up to 3.6 started epogen Lab - Result Diagrams 07/19/16 09:50 07/20/16 05:50 Lab - Result Diagrams 07/21/16 06:16 07/20/16 05:50 Lab - Result Diagrams 07/26/16 11:05 07/24/16 05:00 Lab - Result Diagrams 07/29/16 05:55 07/28/16 05:30
[2016-08-07] MEDS: Epoetin Alfa 20000 Units/mL Vial SUBQ SCH (17:05)
[2016-08-07] MEDS: Morphine Sulfate 2 mg/mL 1mL Syr IV PRN (21:34)
[2016-08-08] MEDS: Morphine Sulfate 2 mg/mL 1mL Syr IV PRN ×3 (05:25→22:17)
[2016-08-08] MEDS: Lactulose 10 Gm/15 mL 30mL UDC PO SCH ×3 (06:37→22:26)
--- NOTE | 2016-08-08 09:00 | General Progress Note ---
Subjective - Review of Systems Events since last encounter: patient cooperative no distress ,awake Objective - Results Result Diagrams: 08/07/16 06:50 08/07/16 06:50 Recent Labs: Laboratory Last Values WBC 5.2 Th/cmm (4.8-10.8) 08/07/16 06:50 RBC 2.78 Mil/cmm (4.30-5.70) L 08/07/16 06:50 Hgb 7.8 gm/dL (13.2-17.3) L* 08/07/16 06:50 Hct 23.1 % (39.0-49.0) L* 08/07/16 06:50 MCV 83.2 fl (80-99) 08/07/16 06:50 MCH 28.1 pg (26.0-30.0) 08/07/16 06:50 MCHC Differential 33.7 pg (28.0-36.0) 08/07/16 06:50 RDW 14.1 % (11.5-20.0) 08/07/16 06:50 Plt Count 120 Th/cmm (150-400) L 08/07/16 06:50 MPV 9.6 fl 08/07/16 06:50 Neutrophils % 56.8 % (40.0-80.0) 07/07/16 06:00 Band Neutrophils % 3 % (0-10) 08/07/16 06:50 Lymphocytes % 18.4 % (20.0-50.0) L 07/07/16 06:00 Monocytes % 13.8 % (2.0-10.0) H 07/07/16 06:00 Eosinophils % 11.0 % (0.0-5.0) H 07/07/16 06:00 Basophils % 0.0 % (0.0-2.0) 07/07/16 06:00 Neutrophils (Manual) 62 % (40-80) 08/07/16 06:50 Lymphocytes 12 % (20-50) L 08/07/16 06:50 Monocytes 15 % (2-10) H 08/07/16 06:50 Eosinophils 8 % (0-5) H 08/07/16 06:50 Basophils 3 % (0-3) 08/04/16 08:33 Myelocytes 1 % 07/14/16 16:00 Hypochromia 1+ 07/20/16 23:30 Platelet Estimate DECREASED PLATELETS (NORMAL) 08/07/16 06:50 Platelet Morphology NORMAL (NORMAL) 08/07/16 06:50 Polychromasia 1+ 07/20/16 23:30 Anisocytosis 1+ 08/07/16 06:50 Microcytosis 1+ 07/14/16 16:00 RBC Morph Micro Appear ABNORMAL (NORMAL) 08/07/16 06:50 PT 12.7 SECONDS (9.5-11.5) H 07/01/16 06:57 INR 1.26 (0.5-1.4) 07/01/16 06:57 PTT (Actin FS) 28.3 SECONDS (26.0-38.0) 06/28/16 04:38 Specimen Source art 06/22/16 20:03 Sample Site Right Radial 06/22/16 20:03 pH 7.49 (7.35-7.45) H 06/22/16 20:03 pCO2 34.0 mmHg (35.0-45.0) L 06/22/16 20:03 pO2 97.0 mmHg (80.0-100.0) 06/22/16 20:03 HCO3 25.9 mmol/L (20.0-26.0) 06/22/16 20:03 Base Excess 2.8 mmol/L (-3.0-3.0) 06/22/16 20:03 O2 Saturation 98.0 % (92.0-100.0) 06/22/16 20:03 Estuardo Test P 06/22/16 20:03 Vent Rate NA 06/22/16 20:03 Inspired O2 21 06/22/16 20:03 Tidal Volume NA 06/22/16 20:03 PEEP NA 06/22/16 20:03 Pressure (ins/psv/peep) NA 06/22/16 20:03 Critical Value RPINEIRA 06/22/16 20:03 Sodium 126 mEq/L (136-145) L 08/07/16 06:50 Potassium 3.5 mEq/L (3.5-5.1) 08/07/16 06:50 Chloride 92 mEq/L (98-107) L 08/07/16 06:50 Carbon Dioxide 26.6 mEq/L (21.0-31.0) 08/07/16 06:50 Anion Gap 10.9 (7.0-16.0) 08/07/16 06:50 BUN 41 mg/dL (7-25) H 08/07/16 06:50 Creatinine 4.2 mg/dL (0.7-1.3) H* 08/07/16 06:50 Est GFR ( Amer) 19.5 ml/min (>90) 08/07/16 06:50 Est GFR (Non-Af Amer) 16.1 ml/min 08/07/16 06:50 BUN/Creatinine Ratio 9.8 08/07/16 06:50 Glucose 95 mg/dL (70-105) 08/07/16 06:50 Calcium 8.9 mg/dL (8.6-10.3) 08/07/16 06:50 Phosphorus 5.5 mg/dL (2.5-5.0) H 07/19/16 09:50 Magnesium 1.9 mg/dL (1.9-2.7) 08/04/16 05:45 Iron 42 ug/dL (38-169) 06/28/16 04:38 TIBC 269 ug/dL (250-450) 06/28/16 04:38 Iron Saturation 16 % (15-55) 06/28/16 04:38 Unsaturated IBC 227 ug/dL (111-343) 06/28/16 04:38 Ferritin 150 ng/mL (30-400) 06/26/16 08:30 Total Bilirubin 0.8 mg/dL (0.3-1.0) 07/28/16 05:30 Direct Bilirubin 0.70 mg/dL (0.0-0.2) H 06/28/16 04:38 GGTP 14 IU/L (0-65) 06/28/16 04:38 AST 52 U/L (13-39) H 07/28/16 05:30 ALT 30 U/L (7-52) 07/28/16 05:30 Alkaline Phosphatase 38 U/L (34-104) 07/28/16 05:30 Ammonia 105 umol/L (16-53) H 07/02/16 06:40 Troponin I < 0.01 ng/mL (0.01-0.05) L 06/22/16 19:33 B-Natriuretic Peptide 668.0 pg/mL (5.0-100.0) H 06/22/16 19:33 Total Protein 7.8 gm/dL (6.0-8.3) 07/28/16 05:30 Albumin 2.7 gm/dL (4.2-5.5) L 07/28/16 05:30 Globulin 5.1 gm/dL 07/28/16 05:30 Albumin/Globulin Ratio 0.5 (1.0-1.8) L 07/28/16 05:30 Amylase 28 U/L (29-103) L 07/02/16 06:40 Lipase 31 U/L (11-82) 07/02/16 06:40 Urine Source CLEAN C 06/29/16 05:55 Urine Color YELLOW 06/29/16 05:55 Urine Clarity HAZY (CLEAR) 06/29/16 05:55 Urine pH 5.5 06/29/16 05:55 Ur Specific [place] 1.015 (1.005-1.030) 06/29/16 05:55 Urine Protein 30 mg/dL (NEGATIVE) H 06/29/16 05:55 Urine Glucose (UA) NEGATIVE mg/dL (NEGATIVE) 06/29/16 05:55 Urine Ketones NEGATIVE mg/dL (NEGATIVE) 06/29/16 05:55 Urine Blood NEGATIVE (NEGATIVE) 06/29/16 05:55 Urine Nitrate NEGATIVE (NEGATIVE) 06/29/16 05:55 Urine Bilirubin NEGATIVE (NEGATIVE) 06/29/16 05:55 Urine Urobilinogen 0.2 E.U./dL (0.2 - 1.0) 06/29/16 05:55 Ur Leukocyte Esterase TRACE (NEGATIVE) H 06/29/16 05:55 Urine RBC 0-2 /hpf (0-5) H 06/29/16 05:55 Urine WBC 6-10 /hpf (0-5) H 06/29/16 05:55 Ur Epithelial Cells FEW /lpf (FEW) 06/29/16 05:55 Urine Bacteria MANY /hpf (NONE SEEN) 06/29/16 05:55 Stool Occult Blood POSITIVE (NEGATIVE) 06/24/16 16:00 Random Vancomycin 13.4 ug/mL (5.0-40.0) 06/28/16 04:38 RPR NONREACTIVE (NONREACTIVE) 06/22/16 19:33 Hepatitis A IgM Ab Negative (Negative) 06/29/16 05:49 Hep Bs Antigen Negative (Negative) 06/29/16 05:49 Hep B Core IgM Ab Negative (Negative) 06/29/16 05:49 Hepatitis C Antibody >11.0 s/co ratio (0.0-0.9) H 06/29/16 05:49 Blood Type A POSITIVE 08/04/16 23:20 Antibody Screen NEGATIVE 08/04/16 23:20 Crossmatch See Detail 08/04/16 23:20 - Physical Exam Vitals and I&O: Vital Signs Temp 97.8 F 08/08/16 08:17 Pulse 88 08/08/16 08:17 Resp 20 08/08/16 08:17 BP 105/76 08/08/16 08:17 Pulse Ox 99 08/08/16 08:17 Intake & Output 08/07/16 08/08/16 08/08/16 18:59 06:59 18:59 Intake Total 1080 Output Total 3000 2 Balance -1920 -2 Intake: Oral 1080 Output: Urine 2 Hemodialysis 3000 Other: # Voids 2 2 # Bowel Movements 0 Stool Characteristics Soft Active Medications: Current Medications Acetaminophen (Tylenol) 650 mg PO Q6H PRN PRN Reason: temperature above 100F Stop: 09/28/16 16:14 Last Admin: 07/30/16 16:27 Dose: 650 mg Albuterol/Ipratropium (Duoneb Neb) 3 ml HHN Q2HR PRN PRN Reason: Shortness of Breath or Wheeze Stop: 09/08/16 09:51 Calamine/Phenol (Calmoseptine) 1 appl TP QID PRN PRN Reason: Skin Irritation Stop: 09/08/16 18:33 Last Admin: 07/30/16 15:02 Dose: 1 appl Calamine/Phenol (Calmoseptine) 1 appl TP QID MARQUISE Stop: 09/08/16 20:59 Last Admin: 08/07/16 21:36 Dose: 1 appl Diphenhydramine HCl (Benadryl 50 Mg/Ml) 50 mg IM Q8HR PRN PRN Reason: Agitation Stop: 08/25/16 12:10 Docusate Sodium (Colace) 100 mg PO Q12HR MARQUISE Stop: 09/16/16 08:59 Last Admin: 08/07/16 21:34 Dose: 100 mg Epoetin Bernardino (Epogen) 10,000 units SUBQ TuThSa [facility] Stop: 10/01/16 14:14 Last Admin: 08/07/16 17:05 Dose: 10,000 units Haloperidol Lactate (Haldol) 5 mg IM Q8HR PRN PRN Reason: Agitation Stop: 08/25/16 12:10 Lactic Acid (Lac-Hydrin Cream) 1 appl TP BID [facility] Stop: 09/12/16 08:59 Last Admin: 08/07/16 17:21 Dose: 1 appl Lactulose (Cephulac) 20 gm PO Q8HR MARQUISE Stop: 09/16/16 04:59 Last Admin: 08/08/16 06:37 Dose: Not Given Miscellaneous (Clinical Monitoring) 1 ea MC DAILY PRN PRN Reason: RENAL Stop: 10/06/16 08:17 Morphine Sulfate (Morphine) 2 mg IV Q4H PRN PRN Reason: SEVERE PAIN Stop: 09/23/16 12:59 Last Admin: 08/08/16 05:25 Dose: 2 mg General: No acute distress HEENT: Atraumatic Neck: Supple Cardiovascular: Regular rate Lungs: Clear to auscultation Abdomen: Bowel sounds, no Distended - Procedures Procedures: Procedures Procedure Code Date ARTERY-VEIN NONAUTOGRAFT 03511 06/22/16 BLOOD TRANSFUSION SERVICE 56540 06/22/16 BYPASS L BRACH ART TO UP ARM VEIN W NONAUT SUB, OPEN [id number] 06/22/16 FLUOROSCOPY OF SUP VENA CAVA USING [facility] CONTRAST, GUIDANCE [id number] 06/22/16 INSERTION OF INFUSION DEV INTO SUP VENA CAVA, PERC APPROACH [id number] 06/22/16 PLACE CATHETER IN VEIN 56884 06/22/16 TRANSFUSE NONAUT RED BLOOD CELLS IN PERIPH VEIN, PERC [id number] 06/22/16 Assessment/Plan - Problem List Patient Problems: All Active Problems Anemia (Acute) D64.9 ESRD (end stage renal disease) (Acute) ESRD (end stage renal disease) on dialysis (Acute) N18.6, Z99.2 ESRD (end stage renal disease) on dialysis (Acute) N18.6, Z99.[address] FRY (Acute) - Assessment Assessment: 1. Cellulitis of legs. 2. Lymphedema of legs. 3. CKD 5 on HD. 4. Morbid obesity. 5 anemia 6 gi bleed 7 psychosis - Plan Plan: ivabx follow up labs awaiting placement
[2016-08-08] MEDS: Menthol/Zinc Oxide Oint 113gm Tube TP SCH ×4 (10:05→21:30)
[2016-08-08] MEDS: Ammonium Lactate Cream 140 gm Tube TP SCH ×2 (10:05→17:35)
--- NOTE | 2016-08-08 14:19 | General Progress Note ---
Subjective - Review of Systems Service Date: 08/08/16 Subjective: more cooperative today, comfortable Objective - Results Result Diagrams: 08/07/16 06:50 08/07/16 06:50 Recent Labs: Laboratory Last Values WBC 5.2 Th/cmm (4.8-10.8) 08/07/16 06:50 RBC 2.78 Mil/cmm (4.30-5.70) L 08/07/16 06:50 Hgb 7.8 gm/dL (13.2-17.3) L* 08/07/16 06:50 Hct 23.1 % (39.0-49.0) L* 08/07/16 06:50 MCV 83.2 fl (80-99) 08/07/16 06:50 MCH 28.1 pg (26.0-30.0) 08/07/16 06:50 MCHC Differential 33.7 pg (28.0-36.0) 08/07/16 06:50 RDW 14.1 % (11.5-20.0) 08/07/16 06:50 Plt Count 120 Th/cmm (150-400) L 08/07/16 06:50 MPV 9.6 fl 08/07/16 06:50 Neutrophils % 56.8 % (40.0-80.0) 07/07/16 06:00 Band Neutrophils % 3 % (0-10) 08/07/16 06:50 Lymphocytes % 18.4 % (20.0-50.0) L 07/07/16 06:00 Monocytes % 13.8 % (2.0-10.0) H 07/07/16 06:00 Eosinophils % 11.0 % (0.0-5.0) H 07/07/16 06:00 Basophils % 0.0 % (0.0-2.0) 07/07/16 06:00 Neutrophils (Manual) 62 % (40-80) 08/07/16 06:50 Lymphocytes 12 % (20-50) L 08/07/16 06:50 Monocytes 15 % (2-10) H 08/07/16 06:50 Eosinophils 8 % (0-5) H 08/07/16 06:50 Basophils 3 % (0-3) 08/04/16 08:33 Myelocytes 1 % 07/14/16 16:00 Hypochromia 1+ 07/20/16 23:30 Platelet Estimate DECREASED PLATELETS (NORMAL) 08/07/16 06:50 Platelet Morphology NORMAL (NORMAL) 08/07/16 06:50 Polychromasia 1+ 07/20/16 23:30 Anisocytosis 1+ 08/07/16 06:50 Microcytosis 1+ 07/14/16 16:00 RBC Morph Micro Appear ABNORMAL (NORMAL) 08/07/16 06:50 PT 12.7 SECONDS (9.5-11.5) H 07/01/16 06:57 INR 1.26 (0.5-1.4) 07/01/16 06:57 PTT (Actin FS) 28.3 SECONDS (26.0-38.0) 06/28/16 04:38 Specimen Source art 06/22/16 20:03 Sample Site Right Radial 06/22/16 20:03 pH 7.49 (7.35-7.45) H 06/22/16 20:03 pCO2 34.0 mmHg (35.0-45.0) L 06/22/16 20:03 pO2 97.0 mmHg (80.0-100.0) 06/22/16 20:03 HCO3 25.9 mmol/L (20.0-26.0) 06/22/16 20:03 Base Excess 2.8 mmol/L (-3.0-3.0) 06/22/16 20:03 O2 Saturation 98.0 % (92.0-100.0) 06/22/16 20:03 Estuardo Test P 06/22/16 20:03 Vent Rate NA 06/22/16 20:03 Inspired O2 21 06/22/16 20:03 Tidal Volume NA 06/22/16 20:03 PEEP NA 06/22/16 20:03 Pressure (ins/psv/peep) NA 06/22/16 20:03 Critical Value RPINEIRA 06/22/16 20:03 Sodium 126 mEq/L (136-145) L 08/07/16 06:50 Potassium 3.5 mEq/L (3.5-5.1) 08/07/16 06:50 Chloride 92 mEq/L (98-107) L 08/07/16 06:50 Carbon Dioxide 26.6 mEq/L (21.0-31.0) 08/07/16 06:50 Anion Gap 10.9 (7.0-16.0) 08/07/16 06:50 BUN 41 mg/dL (7-25) H 08/07/16 06:50 Creatinine 4.2 mg/dL (0.7-1.3) H* 08/07/16 06:50 Est GFR ( Amer) 19.5 ml/min (>90) 08/07/16 06:50 Est GFR (Non-Af Amer) 16.1 ml/min 08/07/16 06:50 BUN/Creatinine Ratio 9.8 08/07/16 06:50 Glucose 95 mg/dL (70-105) 08/07/16 06:50 Calcium 8.9 mg/dL (8.6-10.3) 08/07/16 06:50 Phosphorus 5.5 mg/dL (2.5-5.0) H 07/19/16 09:50 Magnesium 1.9 mg/dL (1.9-2.7) 08/04/16 05:45 Iron 42 ug/dL (38-169) 06/28/16 04:38 TIBC 269 ug/dL (250-450) 06/28/16 04:38 Iron Saturation 16 % (15-55) 06/28/16 04:38 Unsaturated IBC 227 ug/dL (111-343) 06/28/16 04:38 Ferritin 150 ng/mL (30-400) 06/26/16 08:30 Total Bilirubin 0.8 mg/dL (0.3-1.0) 07/28/16 05:30 Direct Bilirubin 0.70 mg/dL (0.0-0.2) H 06/28/16 04:38 GGTP 14 IU/L (0-65) 06/28/16 04:38 AST 52 U/L (13-39) H 07/28/16 05:30 ALT 30 U/L (7-52) 07/28/16 05:30 Alkaline Phosphatase 38 U/L (34-104) 07/28/16 05:30 Ammonia 105 umol/L (16-53) H 07/02/16 06:40 Troponin I < 0.01 ng/mL (0.01-0.05) L 06/22/16 19:33 B-Natriuretic Peptide 668.0 pg/mL (5.0-100.0) H 06/22/16 19:33 Total Protein 7.8 gm/dL (6.0-8.3) 07/28/16 05:30 Albumin 2.7 gm/dL (4.2-5.5) L 07/28/16 05:30 Globulin 5.1 gm/dL 07/28/16 05:30 Albumin/Globulin Ratio 0.5 (1.0-1.8) L 07/28/16 05:30 Amylase 28 U/L (29-103) L 07/02/16 06:40 Lipase 31 U/L (11-82) 07/02/16 06:40 Urine Source CLEAN C 06/29/16 05:55 Urine Color YELLOW 06/29/16 05:55 Urine Clarity HAZY (CLEAR) 06/29/16 05:55 Urine pH 5.5 06/29/16 05:55 Ur Specific [place] 1.015 (1.005-1.030) 06/29/16 05:55 Urine Protein 30 mg/dL (NEGATIVE) H 06/29/16 05:55 Urine Glucose (UA) NEGATIVE mg/dL (NEGATIVE) 06/29/16 05:55 Urine Ketones NEGATIVE mg/dL (NEGATIVE) 06/29/16 05:55 Urine Blood NEGATIVE (NEGATIVE) 06/29/16 05:55 Urine Nitrate NEGATIVE (NEGATIVE) 06/29/16 05:55 Urine Bilirubin NEGATIVE (NEGATIVE) 06/29/16 05:55 Urine Urobilinogen 0.2 E.U./dL (0.2 - 1.0) 06/29/16 05:55 Ur Leukocyte Esterase TRACE (NEGATIVE) H 06/29/16 05:55 Urine RBC 0-2 /hpf (0-5) H 06/29/16 05:55 Urine WBC 6-10 /hpf (0-5) H 06/29/16 05:55 Ur Epithelial Cells FEW /lpf (FEW) 06/29/16 05:55 Urine Bacteria MANY /hpf (NONE SEEN) 06/29/16 05:55 Stool Occult Blood POSITIVE (NEGATIVE) 06/24/16 16:00 Random Vancomycin 13.4 ug/mL (5.0-40.0) 06/28/16 04:38 RPR NONREACTIVE (NONREACTIVE) 06/22/16 19:33 Hepatitis A IgM Ab Negative (Negative) 06/29/16 05:49 Hep Bs Antigen Negative (Negative) 06/29/16 05:49 Hep B Core IgM Ab Negative (Negative) 06/29/16 05:49 Hepatitis C Antibody >11.0 s/co ratio (0.0-0.9) H 06/29/16 05:49 Blood Type A POSITIVE 08/04/16 23:20 Antibody Screen NEGATIVE 08/04/16 23:20 Crossmatch See Detail 08/04/16 23:20 - Physical Exam Vitals and I&O: Vital Signs Temp 97.0 F 08/08/16 11:35 Pulse 101 08/08/16 11:35 Resp 20 08/08/16 11:35 BP 118/72 08/08/16 11:35 Pulse Ox 97 08/08/16 11:35 Intake & Output 08/07/16 08/08/16 08/08/16 18:59 06:59 18:59 Intake Total 1080 Output Total 3000 2 Balance -1920 -2 Intake: Oral 1080 Output: Urine 2 Hemodialysis 3000 Other: # Voids 2 2 # Bowel Movements 0 Stool Characteristics Soft Active Medications: Current Medications Acetaminophen (Tylenol) 650 mg PO Q6H PRN PRN Reason: temperature above 100F Stop: 09/28/16 16:14 Last Admin: 07/30/16 16:27 Dose: 650 mg Albuterol/Ipratropium (Duoneb Neb) 3 ml HHN Q2HR PRN PRN Reason: Shortness of Breath or Wheeze Stop: 09/08/16 09:51 Calamine/Phenol (Calmoseptine) 1 appl TP QID PRN PRN Reason: Skin Irritation Stop: 09/08/16 18:33 Last Admin: 07/30/16 15:02 Dose: 1 appl Calamine/Phenol (Calmoseptine) 1 appl TP QID MARQUISE Stop: 09/08/16 20:59 Last Admin: 08/08/16 10:05 Dose: 1 appl Diphenhydramine HCl (Benadryl 50 Mg/Ml) 50 mg IM Q8HR PRN PRN Reason: Agitation Stop: 08/25/16 12:10 Docusate Sodium (Colace) 100 mg PO Q12HR MARQUISE Stop: 09/16/16 08:59 Last Admin: 08/08/16 10:06 Dose: Not Given Epoetin Bernardino (Epogen) 10,000 units SUBQ TuThSa [facility] Stop: 10/01/16 14:14 Last Admin: 08/07/16 17:05 Dose: 10,000 units Haloperidol Lactate (Haldol) 5 mg IM Q8HR PRN PRN Reason: Agitation Stop: 08/25/16 12:10 Lactic Acid (Lac-Hydrin Cream) 1 appl TP BID [facility] Stop: 09/12/16 08:59 Last Admin: 08/08/16 10:05 Dose: 1 appl Lactulose (Cephulac) 20 gm PO Q8HR MARQUISE Stop: 09/16/16 04:59 Last Admin: 08/08/16 06:37 Dose: Not Given Miscellaneous (Clinical Monitoring) 1 ea MC DAILY PRN PRN Reason: RENAL Stop: 10/06/16 08:17 Morphine Sulfate (Morphine) 2 mg IV Q4H PRN PRN Reason: SEVERE PAIN Stop: 09/23/16 12:59 Last Admin: 08/08/16 05:25 Dose: 2 mg General: No acute distress HEENT: Atraumatic, Mucous membr. moist/pink Neck: Supple, +2 carotid pulse wo bruit Cardiovascular: Regular rate, Normal S1, Normal S2 Lungs: Other (few rhonchi) Abdomen: Bowel sounds, Soft Extremities: Edema ((+) 3 bipedal edema) Neurological: Sensation intact Skin: no Rash - Procedures Procedures: Procedures Procedure Code Date ARTERY-VEIN NONAUTOGRAFT 22041 06/22/16 BLOOD TRANSFUSION SERVICE 57718 06/22/16 BYPASS L BRACH ART TO UP ARM VEIN W NONAUT SUB, OPEN [id number] 06/22/16 FLUOROSCOPY OF SUP VENA CAVA USING [facility] CONTRAST, GUIDANCE [id number] 06/22/16 INSERTION OF INFUSION DEV INTO SUP VENA CAVA, PERC APPROACH [id number] 06/22/[address] PL[address] CATHETER IN VEIN 12624 06/22/16 TRANSFUSE NONAUT RED BLOOD CELLS IN PERIPH VEIN, PERC [id number] 06/22/16 Assessment/Plan - Problem List Patient Problems: All Active Problems Anemia (Acute) D64.9 ESRD (end stage renal disease) (Acute) ESRD (end stage renal disease) on dialysis (Acute) N18.6, Z99.2 ESRD (end stage renal disease) on dialysis (Acute) N18.6, Z99.[address] DR FRY (Acute) - Assessment Assessment: esrd on hd persistent cellulitis b/l lower ext acute on chronic anemia possible gi bleed ohs chronic a. fib hypothyroid anasarca functional quadriplegia chronic venous stasis dermatitis acute decomp psychosis hypokalemia, hypomagnesemia s/p left avg - Plan Plan: Lab - Result Diagrams 07/19/16 09:50 Lab - Result Diagrams 07/22/16 05:21 Lab - Result Diagrams 07/24/16 05:00 Lab - Result Diagrams Lab - Result Diagrams 08/04/16 08:33 Lab - Result Diagrams 08/05/16 05:00 08/04/16 05:45 08/04/16 05:45 07/28/16 05:30 07/28/16 05:30 07/24/16 05:00 07/20/16 05:50 07/19/16 09:50 latest hgb/hct were 7.8/23.1, remain stable schedule for hd in am placement in progress K up to 3.6 started epogen Lab - Result Diagrams 07/19/16 09:50 07/20/16 05:50 Lab - Result Diagrams 07/21/16 06:16 07/20/16 05:50 Lab - Result Diagrams 07/26/16 11:05 07/24/16 05:00 Lab - Result Diagrams 07/29/16 05:55 07/28/16 05:30
[2016-08-09] MEDS: Morphine Sulfate 2 mg/mL 1mL Syr IV PRN ×3 (03:23→22:37)
[2016-08-09] MEDS: Lactulose 10 Gm/15 mL 30mL UDC PO SCH ×3 (05:30→22:38)
[2016-08-09] MEDS: Ammonium Lactate Cream 140 gm Tube TP SCH ×2 (09:25→17:43)
[2016-08-09] MEDS: Menthol/Zinc Oxide Oint 113gm Tube TP SCH ×4 (09:25→22:41)
--- NOTE | 2016-08-09 11:56 | General Progress Note ---
Subjective - Review of Systems Events since last encounter: patient condition improving Subjective: c/o weakness Objective - Results Result Diagrams: 08/07/16 06:50 08/07/16 06:50 Recent Labs: Laboratory Last Values WBC 5.2 Th/cmm (4.8-10.8) 08/07/16 06:50 RBC 2.78 Mil/cmm (4.30-5.70) L 08/07/16 06:50 Hgb 7.8 gm/dL (13.2-17.3) L* 08/07/16 06:50 Hct 23.1 % (39.0-49.0) L* 08/07/16 06:50 MCV 83.2 fl (80-99) 08/07/16 06:50 MCH 28.1 pg (26.0-30.0) 08/07/16 06:50 MCHC Differential 33.7 pg (28.0-36.0) 08/07/16 06:50 RDW 14.1 % (11.5-20.0) 08/07/16 06:50 Plt Count 120 Th/cmm (150-400) L 08/07/16 06:50 MPV 9.6 fl 08/07/16 06:50 Neutrophils % 56.8 % (40.0-80.0) 07/07/16 06:00 Band Neutrophils % 3 % (0-10) 08/07/16 06:50 Lymphocytes % 18.4 % (20.0-50.0) L 07/07/16 06:00 Monocytes % 13.8 % (2.0-10.0) H 07/07/16 06:00 Eosinophils % 11.0 % (0.0-5.0) H 07/07/16 06:00 Basophils % 0.0 % (0.0-2.0) 07/07/16 06:00 Neutrophils (Manual) 62 % (40-80) 08/07/16 06:50 Lymphocytes 12 % (20-50) L 08/07/16 06:50 Monocytes 15 % (2-10) H 08/07/16 06:50 Eosinophils 8 % (0-5) H 08/07/16 06:50 Basophils 3 % (0-3) 08/04/16 08:33 Myelocytes 1 % 07/14/16 16:00 Hypochromia 1+ 07/20/16 23:30 Platelet Estimate DECREASED PLATELETS (NORMAL) 08/07/16 06:50 Platelet Morphology NORMAL (NORMAL) 08/07/16 06:50 Polychromasia 1+ 07/20/16 23:30 Anisocytosis 1+ 08/07/16 06:50 Microcytosis 1+ 07/14/16 16:00 RBC Morph Micro Appear ABNORMAL (NORMAL) 08/07/16 06:50 PT 12.7 SECONDS (9.5-11.5) H 07/01/16 06:57 INR 1.26 (0.5-1.4) 07/01/16 06:57 PTT (Actin FS) 28.3 SECONDS (26.0-38.0) 06/28/16 04:38 Specimen Source art 06/22/16 20:03 Sample Site Right Radial 06/22/16 20:03 pH 7.49 (7.35-7.45) H 06/22/16 20:03 pCO2 34.0 mmHg (35.0-45.0) L 06/22/16 20:03 pO2 97.0 mmHg (80.0-100.0) 06/22/16 20:03 HCO3 25.9 mmol/L (20.0-26.0) 06/22/16 20:03 Base Excess 2.8 mmol/L (-3.0-3.0) 06/22/16 20:03 O2 Saturation 98.0 % (92.0-100.0) 06/22/16 20:03 Estuardo Test P 06/22/16 20:03 Vent Rate NA 06/22/16 20:03 Inspired O2 21 06/22/16 20:03 Tidal Volume NA 06/22/16 20:03 PEEP NA 06/22/16 20:03 Pressure (ins/psv/peep) NA 06/22/16 20:03 Critical Value RPINEIRA 06/22/16 20:03 Sodium 126 mEq/L (136-145) L 08/07/16 06:50 Potassium 3.5 mEq/L (3.5-5.1) 08/07/16 06:50 Chloride 92 mEq/L (98-107) L 08/07/16 06:50 Carbon Dioxide 26.6 mEq/L (21.0-31.0) 08/07/16 06:50 Anion Gap 10.9 (7.0-16.0) 08/07/16 06:50 BUN 41 mg/dL (7-25) H 08/07/16 06:50 Creatinine 4.2 mg/dL (0.7-1.3) H* 08/07/16 06:50 Est GFR ( Amer) 19.5 ml/min (>90) 08/07/16 06:50 Est GFR (Non-Af Amer) 16.1 ml/min 08/07/16 06:50 BUN/Creatinine Ratio 9.8 08/07/16 06:50 Glucose 95 mg/dL (70-105) 08/07/16 06:50 Calcium 8.9 mg/dL (8.6-10.3) 08/07/16 06:50 Phosphorus 5.5 mg/dL (2.5-5.0) H 07/19/16 09:50 Magnesium 1.9 mg/dL (1.9-2.7) 08/04/16 05:45 Iron 42 ug/dL (38-169) 06/28/16 04:38 TIBC 269 ug/dL (250-450) 06/28/16 04:38 Iron Saturation 16 % (15-55) 06/28/16 04:38 Unsaturated IBC 227 ug/dL (111-343) 06/28/16 04:38 Ferritin 150 ng/mL (30-400) 06/26/16 08:30 Total Bilirubin 0.8 mg/dL (0.3-1.0) 07/28/16 05:30 Direct Bilirubin 0.70 mg/dL (0.0-0.2) H 06/28/16 04:38 GGTP 14 IU/L (0-65) 06/28/16 04:38 AST 52 U/L (13-39) H 07/28/16 05:30 ALT 30 U/L (7-52) 07/28/16 05:30 Alkaline Phosphatase 38 U/L (34-104) 07/28/16 05:30 Ammonia 105 umol/L (16-53) H 07/02/16 06:40 Troponin I < 0.01 ng/mL (0.01-0.05) L 06/22/16 19:33 B-Natriuretic Peptide 668.0 pg/mL (5.0-100.0) H 06/22/16 19:33 Total Protein 7.8 gm/dL (6.0-8.3) 07/28/16 05:30 Albumin 2.7 gm/dL (4.2-5.5) L 07/28/16 05:30 Globulin 5.1 gm/dL 07/28/16 05:30 Albumin/Globulin Ratio 0.5 (1.0-1.8) L 07/28/16 05:30 Amylase 28 U/L (29-103) L 07/02/16 06:40 Lipase 31 U/L (11-82) 07/02/16 06:40 Urine Source CLEAN C 06/29/16 05:55 Urine Color YELLOW 06/29/16 05:55 Urine Clarity HAZY (CLEAR) 06/29/16 05:55 Urine pH 5.5 06/29/16 05:55 Ur Specific [place] 1.015 (1.005-1.030) 06/29/16 05:55 Urine Protein 30 mg/dL (NEGATIVE) H 06/29/16 05:55 Urine Glucose (UA) NEGATIVE mg/dL (NEGATIVE) 06/29/16 05:55 Urine Ketones NEGATIVE mg/dL (NEGATIVE) 06/29/16 05:55 Urine Blood NEGATIVE (NEGATIVE) 06/29/16 05:55 Urine Nitrate NEGATIVE (NEGATIVE) 06/29/16 05:55 Urine Bilirubin NEGATIVE (NEGATIVE) 06/29/16 05:55 Urine Urobilinogen 0.2 E.U./dL (0.2 - 1.0) 06/29/16 05:55 Ur Leukocyte Esterase TRACE (NEGATIVE) H 06/29/16 05:55 Urine RBC 0-2 /hpf (0-5) H 06/29/16 05:55 Urine WBC 6-10 /hpf (0-5) H 06/29/16 05:55 Ur Epithelial Cells FEW /lpf (FEW) 06/29/16 05:55 Urine Bacteria MANY /hpf (NONE SEEN) 06/29/16 05:55 Stool Occult Blood POSITIVE (NEGATIVE) 06/24/16 16:00 Random Vancomycin 13.4 ug/mL (5.0-40.0) 06/28/16 04:38 RPR NONREACTIVE (NONREACTIVE) 06/22/16 19:33 Hepatitis A IgM Ab Negative (Negative) 06/29/16 05:49 Hep Bs Antigen Negative (Negative) 06/29/16 05:49 Hep B Core IgM Ab Negative (Negative) 06/29/16 05:49 Hepatitis C Antibody >11.0 s/co ratio (0.0-0.9) H 06/29/16 05:49 Blood Type A POSITIVE 08/04/16 23:20 Antibody Screen NEGATIVE 08/04/16 23:20 Crossmatch See Detail 08/04/16 23:20 - Physical Exam Vitals and I&O: Vital Signs Temp 98.5 F 08/09/16 03:58 Pulse 136 08/09/16 03:58 Resp 21 08/09/16 03:58 BP 115/59 08/09/16 03:58 Pulse Ox 94 08/09/16 03:58 Intake & Output 08/08/16 08/09/16 08/09/16 18:59 06:59 18:59 Intake Total 1800 500 Output Total 1050 Balance 750 500 Weight (lbs) 244.94 kg Intake: Oral 1800 500 Output: Urine 1050 Other: # Voids 3 # Bowel Movements 0 Stool Characteristics Soft Soft Active Medications: Current Medications Acetaminophen (Tylenol) 650 mg PO Q6H PRN PRN Reason: temperature above 100F Stop: 09/28/16 16:14 Last Admin: 07/30/16 16:27 Dose: 650 mg Albuterol/Ipratropium (Duoneb Neb) 3 ml HHN Q2HR PRN PRN Reason: Shortness of Breath or Wheeze Stop: 09/08/16 09:51 Calamine/Phenol (Calmoseptine) 1 appl TP QID PRN PRN Reason: Skin Irritation Stop: 09/08/16 18:33 Last Admin: 07/30/16 15:02 Dose: 1 appl Calamine/Phenol (Calmoseptine) 1 appl TP QID MARQUISE Stop: 09/08/16 20:59 Last Admin: 08/09/16 09:25 Dose: 1 appl Diphenhydramine HCl (Benadryl 50 Mg/Ml) 50 mg IM Q8HR PRN PRN Reason: Agitation Stop: 08/25/16 12:10 Docusate Sodium (Colace) 100 mg PO Q12HR MARQUISE Stop: 09/16/16 08:59 Last Admin: 08/09/16 09:24 Dose: 100 mg Epoetin Bernardino (Epogen) 10,000 units SUBQ TuThSa MARQUISE Stop: 10/01/16 14:14 Last Admin: 08/07/16 17:05 Dose: 10,000 units Haloperidol Lactate (Haldol) 5 mg IM Q8HR PRN PRN Reason: Agitation Stop: 08/25/16 12:10 Lactic Acid (Lac-Hydrin Cream) 1 appl TP BID [facility] Stop: 09/12/16 08:59 Last Admin: 08/09/16 09:25 Dose: 1 appl Lactulose (Cephulac) 20 gm PO Q8HR MARQUISE Stop: 09/16/16 04:59 Last Admin: 08/09/16 05:30 Dose: Not Given Miscellaneous (Clinical Monitoring) 1 ea MC DAILY PRN PRN Reason: RENAL Stop: 10/06/16 08:17 Morphine Sulfate (Morphine) 2 mg IV Q4H PRN PRN Reason: SEVERE PAIN Stop: 09/23/16 12:59 Last Admin: 08/09/16 03:23 Dose: 2 mg General: No acute distress HEENT: Atraumatic Neck: Supple Cardiovascular: Regular rate Lungs: Clear to auscultation Abdomen: Bowel sounds - Procedures Procedures: Procedures Procedure Code Date ARTERY-VEIN NONAUTOGRAFT 88310 06/22/16 BLOOD TRANSFUSION SERVICE 49960 06/22/16 BYPASS L BRACH ART TO UP ARM VEIN W NONAUT SUB, OPEN [id number] 06/22/16 FLUOROSCOPY OF SUP VENA CAVA USING [facility] CONTRAST, GUIDANCE [id number] 06/22/16 INSERTION OF INFUSION DEV INTO SUP VENA CAVA, PERC APPROACH [id number] 06/22/16 PLACE CATHETER IN VEIN 23820 06/22/16 TRANSFUSE NONAUT RED BLOOD CELLS IN PERIPH VEIN, PERC 16870U6 06/22/16 Assessment/Plan - Problem List Patient Problems: All Active Problems Anemia (Acute) D64.9 ESRD (end stage renal disease) (Acute) ESRD (end stage renal disease) on dialysis (Acute) N18.6, Z99.2 ESRD (end stage renal disease) on dialysis (Acute) N18.6, Z99.[address] FRY (Acute) - Assessment Assessment: 1. Cellulitis of legs. 2. Lymphedema of legs. 3. CKD 5 on HD. 4. Morbid obesity. 5 anemia 6 gi bleed 7 psychosis - Plan Plan: ivabx follow up labs awaiting placement
--- NOTE | 2016-08-09 14:45 | General Progress Note ---
Subjective - Review of Systems Service Date: 08/09/16 Subjective: more cooperative today, comfortable Objective - Results Result Diagrams: 08/07/16 06:50 08/07/16 06:50 Recent Labs: Laboratory Last Values WBC 5.2 Th/cmm (4.8-10.8) 08/07/16 06:50 RBC 2.78 Mil/cmm (4.30-5.70) L 08/07/16 06:50 Hgb 7.8 gm/dL (13.2-17.3) L* 08/07/16 06:50 Hct 23.1 % (39.0-49.0) L* 08/07/16 06:50 MCV 83.2 fl (80-99) 08/07/16 06:50 MCH 28.1 pg (26.0-30.0) 08/07/16 06:50 MCHC Differential 33.7 pg (28.0-36.0) 08/07/16 06:50 RDW 14.1 % (11.5-20.0) 08/07/16 06:50 Plt Count 120 Th/cmm (150-400) L 08/07/16 06:50 MPV 9.6 fl 08/07/16 06:50 Neutrophils % 56.8 % (40.0-80.0) 07/07/16 06:00 Band Neutrophils % 3 % (0-10) 08/07/16 06:50 Lymphocytes % 18.4 % (20.0-50.0) L 07/07/16 06:00 Monocytes % 13.8 % (2.0-10.0) H 07/07/16 06:00 Eosinophils % 11.0 % (0.0-5.0) H 07/07/16 06:00 Basophils % 0.0 % (0.0-2.0) 07/07/16 06:00 Neutrophils (Manual) 62 % (40-80) 08/07/16 06:50 Lymphocytes 12 % (20-50) L 08/07/16 06:50 Monocytes 15 % (2-10) H 08/07/16 06:50 Eosinophils 8 % (0-5) H 08/07/16 06:50 Basophils 3 % (0-3) 08/04/16 08:33 Myelocytes 1 % 07/14/16 16:00 Hypochromia 1+ 07/20/16 23:30 Platelet Estimate DECREASED PLATELETS (NORMAL) 08/07/16 06:50 Platelet Morphology NORMAL (NORMAL) 08/07/16 06:50 Polychromasia 1+ 07/20/16 23:30 Anisocytosis 1+ 08/07/16 06:50 Microcytosis 1+ 07/14/16 16:00 RBC Morph Micro Appear ABNORMAL (NORMAL) 08/07/16 06:50 PT 12.7 SECONDS (9.5-11.5) H 07/01/16 06:57 INR 1.26 (0.5-1.4) 07/01/16 06:57 PTT (Actin FS) 28.3 SECONDS (26.0-38.0) 06/28/16 04:38 Specimen Source art 06/22/16 20:03 Sample Site Right Radial 06/22/16 20:03 pH 7.49 (7.35-7.45) H 06/22/16 20:03 pCO2 34.0 mmHg (35.0-45.0) L 06/22/16 20:03 pO2 97.0 mmHg (80.0-100.0) 06/22/16 20:03 HCO3 25.9 mmol/L (20.0-26.0) 06/22/16 20:03 Base Excess 2.8 mmol/L (-3.0-3.0) 06/22/16 20:03 O2 Saturation 98.0 % (92.0-100.0) 06/22/16 20:03 Estuardo Test P 06/22/16 20:03 Vent Rate NA 06/22/16 20:03 Inspired O2 21 06/22/16 20:03 Tidal Volume NA 06/22/16 20:03 PEEP NA 06/22/16 20:03 Pressure (ins/psv/peep) NA 06/22/16 20:03 Critical Value RPINEIRA 06/22/16 20:03 Sodium 126 mEq/L (136-145) L 08/07/16 06:50 Potassium 3.5 mEq/L (3.5-5.1) 08/07/16 06:50 Chloride 92 mEq/L (98-107) L 08/07/16 06:50 Carbon Dioxide 26.6 mEq/L (21.0-31.0) 08/07/16 06:50 Anion Gap 10.9 (7.0-16.0) 08/07/16 06:50 BUN 41 mg/dL (7-25) H 08/07/16 06:50 Creatinine 4.2 mg/dL (0.7-1.3) H* 08/07/16 06:50 Est GFR ( Amer) 19.5 ml/min (>90) 08/07/16 06:50 Est GFR (Non-Af Amer) 16.1 ml/min 08/07/16 06:50 BUN/Creatinine Ratio 9.8 08/07/16 06:50 Glucose 95 mg/dL (70-105) 08/07/16 06:50 Calcium 8.9 mg/dL (8.6-10.3) 08/07/16 06:50 Phosphorus 5.5 mg/dL (2.5-5.0) H 07/19/16 09:50 Magnesium 1.9 mg/dL (1.9-2.7) 08/04/16 05:45 Iron 42 ug/dL (38-169) 06/28/16 04:38 TIBC 269 ug/dL (250-450) 06/28/16 04:38 Iron Saturation 16 % (15-55) 06/28/16 04:38 Unsaturated IBC 227 ug/dL (111-343) 06/28/16 04:38 Ferritin 150 ng/mL (30-400) 06/26/16 08:30 Total Bilirubin 0.8 mg/dL (0.3-1.0) 07/28/16 05:30 Direct Bilirubin 0.70 mg/dL (0.0-0.2) H 06/28/16 04:38 GGTP 14 IU/L (0-65) 06/28/16 04:38 AST 52 U/L (13-39) H 07/28/16 05:30 ALT 30 U/L (7-52) 07/28/16 05:30 Alkaline Phosphatase 38 U/L (34-104) 07/28/16 05:30 Ammonia 105 umol/L (16-53) H 07/02/16 06:40 Troponin I < 0.01 ng/mL (0.01-0.05) L 06/22/16 19:33 B-Natriuretic Peptide 668.0 pg/mL (5.0-100.0) H 06/22/16 19:33 Total Protein 7.8 gm/dL (6.0-8.3) 07/28/16 05:30 Albumin 2.7 gm/dL (4.2-5.5) L 07/28/16 05:30 Globulin 5.1 gm/dL 07/28/16 05:30 Albumin/Globulin Ratio 0.5 (1.0-1.8) L 07/28/16 05:30 Amylase 28 U/L (29-103) L 07/02/16 06:40 Lipase 31 U/L (11-82) 07/02/16 06:40 Urine Source CLEAN C 06/29/16 05:55 Urine Color YELLOW 06/29/16 05:55 Urine Clarity HAZY (CLEAR) 06/29/16 05:55 Urine pH 5.5 06/29/16 05:55 Ur Specific [place] 1.015 (1.005-1.030) 06/29/16 05:55 Urine Protein 30 mg/dL (NEGATIVE) H 06/29/16 05:55 Urine Glucose (UA) NEGATIVE mg/dL (NEGATIVE) 06/29/16 05:55 Urine Ketones NEGATIVE mg/dL (NEGATIVE) 06/29/16 05:55 Urine Blood NEGATIVE (NEGATIVE) 06/29/16 05:55 Urine Nitrate NEGATIVE (NEGATIVE) 06/29/16 05:55 Urine Bilirubin NEGATIVE (NEGATIVE) 06/29/16 05:55 Urine Urobilinogen 0.2 E.U./dL (0.2 - 1.0) 06/29/16 05:55 Ur Leukocyte Esterase TRACE (NEGATIVE) H 06/29/16 05:55 Urine RBC 0-2 /hpf (0-5) H 06/29/16 05:55 Urine WBC 6-10 /hpf (0-5) H 06/29/16 05:55 Ur Epithelial Cells FEW /lpf (FEW) 06/29/16 05:55 Urine Bacteria MANY /hpf (NONE SEEN) 06/29/16 05:55 Stool Occult Blood POSITIVE (NEGATIVE) 06/24/16 16:00 Random Vancomycin 13.4 ug/mL (5.0-40.0) 06/28/16 04:38 RPR NONREACTIVE (NONREACTIVE) 06/22/16 19:33 Hepatitis A IgM Ab Negative (Negative) 06/29/16 05:49 Hep Bs Antigen Negative (Negative) 06/29/16 05:49 Hep B Core IgM Ab Negative (Negative) 06/29/16 05:49 Hepatitis C Antibody >11.0 s/co ratio (0.0-0.9) H 06/29/16 05:49 Blood Type A POSITIVE 08/04/16 23:20 Antibody Screen NEGATIVE 08/04/16 23:20 Crossmatch See Detail 08/04/16 23:20 - Physical Exam Vitals and I&O: Vital Signs Temp 98.5 F 08/09/16 03:58 Pulse 136 08/09/16 03:58 Resp 21 08/09/16 03:58 BP 115/59 08/09/16 03:58 Pulse Ox 94 08/09/16 03:58 Intake & Output 08/08/16 08/09/16 08/09/16 18:59 06:59 18:59 Intake Total 1800 500 Output Total 1050 Balance 750 500 Weight (lbs) 244.94 kg Intake: Oral 1800 500 Output: Urine 1050 Other: # Voids 3 # Bowel Movements 0 Stool Characteristics Soft Soft Active Medications: Current Medications Acetaminophen (Tylenol) 650 mg PO Q6H PRN PRN Reason: temperature above 100F Stop: 09/28/16 16:14 Last Admin: 07/30/16 16:27 Dose: 650 mg Albuterol/Ipratropium (Duoneb Neb) 3 ml HHN Q2HR PRN PRN Reason: Shortness of Breath or Wheeze Stop: 09/08/16 09:51 Calamine/Phenol (Calmoseptine) 1 appl TP QID PRN PRN Reason: Skin Irritation Stop: 09/08/16 18:33 Last Admin: 07/30/16 15:02 Dose: 1 appl Calamine/Phenol (Calmoseptine) 1 appl TP QID MARQUISE Stop: 09/08/16 20:59 Last Admin: 08/09/16 13:28 Dose: 1 appl Diphenhydramine HCl (Benadryl 50 Mg/Ml) 50 mg IM Q8HR PRN PRN Reason: Agitation Stop: 08/25/16 12:10 Docusate Sodium (Colace) 100 mg PO Q12HR MARQUISE Stop: 09/16/16 08:59 Last Admin: 08/09/16 09:24 Dose: 100 mg Epoetin Bernardino (Epogen) 10,000 units SUBQ TuThSa [facility] Stop: 10/01/16 14:14 Last Admin: 08/07/16 17:05 Dose: 10,000 units Haloperidol Lactate (Haldol) 5 mg IM Q8HR PRN PRN Reason: Agitation Stop: 08/25/16 12:10 Lactic Acid (Lac-Hydrin Cream) 1 appl TP BID [facility] Stop: 09/12/16 08:59 Last Admin: 08/09/16 09:25 Dose: 1 appl Lactulose (Cephulac) 20 gm PO Q8HR MARQUISE Stop: 09/16/16 04:59 Last Admin: 08/09/16 13:28 Dose: 20 gm Miscellaneous (Clinical Monitoring) 1 ea MC DAILY PRN PRN Reason: RENAL Stop: 10/06/16 08:17 Morphine Sulfate (Morphine) 2 mg IV Q4H PRN PRN Reason: SEVERE PAIN Stop: 09/23/16 12:59 Last Admin: 08/09/16 13:29 Dose: 2 mg General: Alert, No acute distress HEENT: Atraumatic, Mucous membr. moist/pink Neck: Supple, +2 carotid pulse wo bruit Cardiovascular: Regular rate, Normal S1, Normal S2 Lungs: Other (few rhonchi) Abdomen: Bowel sounds, Soft Extremities: no Edema Neurological: Sensation intact Skin: no Rash - Procedures Procedures: Procedures Procedure Code Date ARTERY-VEIN NONAUTOGRAFT 91320 06/22/16 BLOOD TRANSFUSION SERVICE 34806 06/22/16 BYPASS L BRACH ART TO UP ARM VEIN W NONAUT SUB, OPEN [id number] 06/22/16 FLUOROSCOPY OF SUP VENA CAVA USING [facility] CONTRAST, GUIDANCE [id number] 06/22/16 INSERTION OF INFUSION DEV INTO SUP VENA CAVA, PERC APPROACH [id number] 06/22/[address] PL[address] CATHETER IN VEIN 08049 06/22/16 TRANSFUSE NONAUT RED BLOOD CELLS IN PERIPH VEIN, PERC [id number] 06/22/16 Assessment/Plan - Problem List Patient Problems: All Active Problems Anemia (Acute) D64.9 ESRD (end stage renal disease) (Acute) ESRD (end stage renal disease) on dialysis (Acute) N18.6, Z99.2 ESRD (end stage renal disease) on dialysis (Acute) N18.6, Z99.[address] MED[address]UATION [address] DR FRY (Acute) - Assessment Assessment: esrd on hd persistent cellulitis b/l lower ext acute on chronic anemia possible gi bleed ohs chronic a. fib hypothyroid anasarca functional quadriplegia chronic venous stasis dermatitis acute decomp psychosis hypokalemia, hypomagnesemia s/p left avg - Plan Plan: Lab - Result Diagrams 07/19/16 09:50 Lab - Result Diagrams 07/22/16 05:21 Lab - Result Diagrams 07/24/16 05:00 Lab - Result Diagrams Lab - Result Diagrams 08/04/16 08:33 Lab - Result Diagrams 08/05/16 05:00 08/04/16 05:45 08/04/16 05:45 07/28/16 05:30 07/28/16 05:30 07/24/16 05:00 07/20/16 05:50 07/19/16 09:50 latest hgb/hct were 7.8/23.1, remain stable reschedule for hd in am because water supply cut off in middle ot treatment placement in progress K up to 3.6 started epogen Lab - Result Diagrams 07/19/16 09:50 07/20/16 05:50 Lab - Result Diagrams 07/21/16 06:16 07/20/16 05:50 Lab - Result Diagrams 07/26/16 11:05 07/24/16 05:00 Lab - Result Diagrams 07/29/16 05:55 07/28/16 05:30
[2016-08-10] MEDS: Lactulose 10 Gm/15 mL 30mL UDC PO SCH ×2 (06:20→17:58)
--- NOTE | 2016-08-10 09:27 | General Progress Note ---
Subjective - Review of Systems Events since last encounter: patient awake alert more cooperative with staff Subjective: c/o weakness Objective - Results Result Diagrams: 08/07/16 06:50 08/07/16 06:50 Recent Labs: Laboratory Last Values WBC 5.2 Th/cmm (4.8-10.8) 08/07/16 06:50 RBC 2.78 Mil/cmm (4.30-5.70) L 08/07/16 06:50 Hgb 7.8 gm/dL (13.2-17.3) L* 08/07/16 06:50 Hct 23.1 % (39.0-49.0) L* 08/07/16 06:50 MCV 83.2 fl (80-99) 08/07/16 06:50 MCH 28.1 pg (26.0-30.0) 08/07/16 06:50 MCHC Differential 33.7 pg (28.0-36.0) 08/07/16 06:50 RDW 14.1 % (11.5-20.0) 08/07/16 06:50 Plt Count 120 Th/cmm (150-400) L 08/07/16 06:50 MPV 9.6 fl 08/07/16 06:50 Neutrophils % 56.8 % (40.0-80.0) 07/07/16 06:00 Band Neutrophils % 3 % (0-10) 08/07/16 06:50 Lymphocytes % 18.4 % (20.0-50.0) L 07/07/16 06:00 Monocytes % 13.8 % (2.0-10.0) H 07/07/16 06:00 Eosinophils % 11.0 % (0.0-5.0) H 07/07/16 06:00 Basophils % 0.0 % (0.0-2.0) 07/07/16 06:00 Neutrophils (Manual) 62 % (40-80) 08/07/16 06:50 Lymphocytes 12 % (20-50) L 08/07/16 06:50 Monocytes 15 % (2-10) H 08/07/16 06:50 Eosinophils 8 % (0-5) H 08/07/16 06:50 Basophils 3 % (0-3) 08/04/16 08:33 Myelocytes 1 % 07/14/16 16:00 Hypochromia 1+ 07/20/16 23:30 Platelet Estimate DECREASED PLATELETS (NORMAL) 08/07/16 06:50 Platelet Morphology NORMAL (NORMAL) 08/07/16 06:50 Polychromasia 1+ 07/20/16 23:30 Anisocytosis 1+ 08/07/16 06:50 Microcytosis 1+ 07/14/16 16:00 RBC Morph Micro Appear ABNORMAL (NORMAL) 08/07/16 06:50 PT 12.7 SECONDS (9.5-11.5) H 07/01/16 06:57 INR 1.26 (0.5-1.4) 07/01/16 06:57 PTT (Actin FS) 28.3 SECONDS (26.0-38.0) 06/28/16 04:38 Specimen Source art 06/22/16 20:03 Sample Site Right Radial 06/22/16 20:03 pH 7.49 (7.35-7.45) H 06/22/16 20:03 pCO2 34.0 mmHg (35.0-45.0) L 06/22/16 20:03 pO2 97.0 mmHg (80.0-100.0) 06/22/16 20:03 HCO3 25.9 mmol/L (20.0-26.0) 06/22/16 20:03 Base Excess 2.8 mmol/L (-3.0-3.0) 06/22/16 20:03 O2 Saturation 98.0 % (92.0-100.0) 06/22/16 20:03 Estuardo Test P 06/22/16 20:03 Vent Rate NA 06/22/16 20:03 Inspired O2 21 06/22/16 20:03 Tidal Volume NA 06/22/16 20:03 PEEP NA 06/22/16 20:03 Pressure (ins/psv/peep) NA 06/22/16 20:03 Critical Value RPINEIRA 06/22/16 20:03 Sodium 126 mEq/L (136-145) L 08/07/16 06:50 Potassium 3.5 mEq/L (3.5-5.1) 08/07/16 06:50 Chloride 92 mEq/L (98-107) L 08/07/16 06:50 Carbon Dioxide 26.6 mEq/L (21.0-31.0) 08/07/16 06:50 Anion Gap 10.9 (7.0-16.0) 08/07/16 06:50 BUN 41 mg/dL (7-25) H 08/07/16 06:50 Creatinine 4.2 mg/dL (0.7-1.3) H* 08/07/16 06:50 Est GFR ( Amer) 19.5 ml/min (>90) 08/07/16 06:50 Est GFR (Non-Af Amer) 16.1 ml/min 08/07/16 06:50 BUN/Creatinine Ratio 9.8 08/07/16 06:50 Glucose 95 mg/dL (70-105) 08/07/16 06:50 Calcium 8.9 mg/dL (8.6-10.3) 08/07/16 06:50 Phosphorus 5.5 mg/dL (2.5-5.0) H 07/19/16 09:50 Magnesium 1.9 mg/dL (1.9-2.7) 08/04/16 05:45 Iron 42 ug/dL (38-169) 06/28/16 04:38 TIBC 269 ug/dL (250-450) 06/28/16 04:38 Iron Saturation 16 % (15-55) 06/28/16 04:38 Unsaturated IBC 227 ug/dL (111-343) 06/28/16 04:38 Ferritin 150 ng/mL (30-400) 06/26/16 08:30 Total Bilirubin 0.8 mg/dL (0.3-1.0) 07/28/16 05:30 Direct Bilirubin 0.70 mg/dL (0.0-0.2) H 06/28/16 04:38 GGTP 14 IU/L (0-65) 06/28/16 04:38 AST 52 U/L (13-39) H 07/28/16 05:30 ALT 30 U/L (7-52) 07/28/16 05:30 Alkaline Phosphatase 38 U/L (34-104) 07/28/16 05:30 Ammonia 105 umol/L (16-53) H 07/02/16 06:40 Troponin I < 0.01 ng/mL (0.01-0.05) L 06/22/16 19:33 B-Natriuretic Peptide 668.0 pg/mL (5.0-100.0) H 06/22/16 19:33 Total Protein 7.8 gm/dL (6.0-8.3) 07/28/16 05:30 Albumin 2.7 gm/dL (4.2-5.5) L 07/28/16 05:30 Globulin 5.1 gm/dL 07/28/16 05:30 Albumin/Globulin Ratio 0.5 (1.0-1.8) L 07/28/16 05:30 Amylase 28 U/L (29-103) L 07/02/16 06:40 Lipase 31 U/L (11-82) 07/02/16 06:40 Urine Source CLEAN C 06/29/16 05:55 Urine Color YELLOW 06/29/16 05:55 Urine Clarity HAZY (CLEAR) 06/29/16 05:55 Urine pH 5.5 06/29/16 05:55 Ur Specific [place] 1.015 (1.005-1.030) 06/29/16 05:55 Urine Protein 30 mg/dL (NEGATIVE) H 06/29/16 05:55 Urine Glucose (UA) NEGATIVE mg/dL (NEGATIVE) 06/29/16 05:55 Urine Ketones NEGATIVE mg/dL (NEGATIVE) 06/29/16 05:55 Urine Blood NEGATIVE (NEGATIVE) 06/29/16 05:55 Urine Nitrate NEGATIVE (NEGATIVE) 06/29/16 05:55 Urine Bilirubin NEGATIVE (NEGATIVE) 06/29/16 05:55 Urine Urobilinogen 0.2 E.U./dL (0.2 - 1.0) 06/29/16 05:55 Ur Leukocyte Esterase TRACE (NEGATIVE) H 06/29/16 05:55 Urine RBC 0-2 /hpf (0-5) H 06/29/16 05:55 Urine WBC 6-10 /hpf (0-5) H 06/29/16 05:55 Ur Epithelial Cells FEW /lpf (FEW) 06/29/16 05:55 Urine Bacteria MANY /hpf (NONE SEEN) 06/29/16 05:55 Stool Occult Blood POSITIVE (NEGATIVE) 06/24/16 16:00 Random Vancomycin 13.4 ug/mL (5.0-40.0) 06/28/16 04:38 RPR NONREACTIVE (NONREACTIVE) 06/22/16 19:33 Hepatitis A IgM Ab Negative (Negative) 06/29/16 05:49 Hep Bs Antigen Negative (Negative) 06/29/16 05:49 Hep B Core IgM Ab Negative (Negative) 06/29/16 05:49 Hepatitis C Antibody >11.0 s/co ratio (0.0-0.9) H 06/29/16 05:49 Blood Type A POSITIVE 08/04/16 23:20 Antibody Screen NEGATIVE 08/04/16 23:20 Crossmatch See Detail 08/04/16 23:20 - Physical Exam Vitals and I&O: Vital Signs Temp 98.0 F 08/10/16 04:04 Pulse 98 08/10/16 04:04 Resp 19 08/10/16 04:04 BP 129/54 08/10/16 04:04 Pulse Ox 98 08/10/16 04:04 Intake & Output 08/09/16 08/10/16 08/10/16 18:59 06:59 18:59 Intake Total 1500 240 Output Total 2250 Balance -750 240 Intake: Oral 1500 240 Output: Urine 650 Hemodialysis 1600 Other: Stool Characteristics Soft Soft Active Medications: Current Medications Acetaminophen (Tylenol) 650 mg PO Q6H PRN PRN Reason: temperature above 100F Stop: 09/28/16 16:14 Last Admin: 07/30/16 16:27 Dose: 650 mg Diphenhydramine HCl (Benadryl 50 Mg/Ml) 50 mg IM Q8HR PRN PRN Reason: Agitation Stop: 08/25/16 12:10 Docusate Sodium (Colace) 100 mg PO Q12HR MARQUISE Stop: 09/16/16 08:59 Last Admin: 08/09/16 22:38 Dose: 100 mg Haloperidol Lactate (Haldol) 5 mg IM Q8HR PRN PRN Reason: Agitation Stop: 08/25/16 12:10 Lactic Acid (Lac-Hydrin Cream) 1 appl TP BID MARQUISE Stop: 09/12/16 08:59 Last Admin: 08/09/16 17:43 Dose: 1 appl Lactulose (Cephulac) 20 gm PO Q8HR MARQUISE Stop: 09/16/16 04:59 Last Admin: 08/10/16 06:20 Dose: Not Given Miscellaneous (Clinical Monitoring) 1 ea MC DAILY PRN PRN Reason: RENAL Stop: 10/06/16 08:17 Morphine Sulfate (Morphine) 2 mg IV Q4H PRN PRN Reason: SEVERE PAIN Stop: 09/23/16 12:59 Last Admin: 08/09/16 22:37 Dose: 2 mg General: No acute distress HEENT: Atraumatic Neck: Supple Cardiovascular: Regular rate Abdomen: Bowel sounds, Distended - Procedures Procedures: Procedures Procedure Code Date ARTERY-VEIN NONAUTOGRAFT 92874 06/22/16 BLOOD TRANSFUSION SERVICE 34643 06/22/16 BYPASS L BRACH ART TO UP ARM VEIN W NONAUT SUB, OPEN [id number] 06/22/16 FLUOROSCOPY OF SUP VENA CAVA USING [facility] CONTRAST, GUIDANCE [id number] 06/22/16 INSERTION OF INFUSION DEV INTO SUP VENA CAVA, PERC APPROACH [id number] 06/22/16 PLACE CATHETER IN VEIN 33666 06/22/16 TRANSFUSE NONAUT RED BLOOD CELLS IN PERIPH VEIN, PERC [id number] 06/22/16 Assessment/Plan - Problem List Patient Problems: All Active Problems Anemia (Acute) D64.9 ESRD (end stage renal disease) (Acute) ESRD (end stage renal disease) on dialysis (Acute) N18.6, Z99.2 ESRD (end stage renal disease) on dialysis (Acute) N18.6, Z99.[address] FRY (Acute) - Assessment Assessment: 1. Cellulitis of legs. 2. Lymphedema of legs. 3. CKD 5 on HD. 4. Morbid obesity. 5 anemia 6 gi bleed 7 psychosis - Plan Plan: cpm awaiting placement
[2016-08-10] MEDS ORDERED: Sodium Chloride 0.9% 1,000 ML IV ONE (12:00)
[2016-08-10] MEDS ORDERED: Albumin 25% 25gm/100mL 25 GM/100 ML BTL IV ONE (12:00)
[2016-08-10] MEDS ORDERED: Albumin 25% 25gm/100mL 50 GM/200 ML BTL IV ONE (12:02)
[2016-08-10 12:58] LABS: WHITE BLOOD COUNT 12.1 Th/cmm (4.8-10.8)
[2016-08-10 12:59] LABS: HEMOGLOBIN 6.8 gm/dL (13.2-17.3)
[2016-08-10 13:00] LABS: MEAN CELL VOLUME 87.8 fl (80-99); MEAN CORPUSCULAR HEMOGLOBIN 28.4 pg (26.0-30.0); MEAN CORPUSCULAR HGB CONC 32.3 pg (28.0-36.0); MEAN PLATELET VOLUME 9.2 fl; PLATELET COUNT 111 Th/cmm (150-400); RED CELL DISTRIBUTION WIDTH 15.8 % (11.5-20.0)
[2016-08-10 13:01] LABS: RED BLOOD COUNT 2.39 Mil/cmm (4.30-5.70)
[2016-08-10] MEDS ORDERED: Dextrose 50% 50 mL Abboject IVP ONE (13:15)
[2016-08-10 13:28] LABS: ABG SOURCE Arterial; ALLEN TEST YES; pH 7.24 (7.35-7.45)
[2016-08-10 13:29] LABS: FIO2 100
--- NOTE | 2016-08-10 13:36 | General Progress Note ---
Subjective - Review of Systems Service Date: 08/10/16 Subjective: code sepsis, resuscitated, on VM, awake, confused Objective - Results Result Diagrams: 08/10/16 12:25 08/07/16 06:50 Recent Labs: Laboratory Last Values WBC 12.1 Th/cmm (4.8-10.8) H D 08/10/16 12:25 RBC 2.39 Mil/cmm (4.30-5.70) L 08/10/16 12:25 Hgb 6.8 gm/dL (13.2-17.3) L* 08/10/16 12:25 Hct 21.0 % (39.0-49.0) L* 08/10/16 12:25 MCV 87.8 fl (80-99) 08/10/16 12:25 MCH 28.4 pg (26.0-30.0) 08/10/16 12: MCHC Differential 32.3 pg (28.0-36.0) 08/10/16 12:25 RDW 15.8 % (11.5-20.0) 08/10/16 12:25 Plt Count 111 Th/cmm (150-400) L 08/10/16 12:25 MPV 9.2 fl 08/10/16 12:25 Neutrophils % 56.8 % (40.0-80.0) 07/07/16 06:00 Band Neutrophils % 3 % (0-10) 08/07/16 06:50 Lymphocytes % 18.4 % (20.0-50.0) L 07/07/16 06:00 Monocytes % 13.8 % (2.0-10.0) H 07/07/16 06:00 Eosinophils % 11.0 % (0.0-5.0) H 07/07/16 06:00 Basophils % 0.0 % (0.0-2.0) 07/07/16 06:00 Neutrophils (Manual) 62 % (40-80) 08/07/16 06:50 Lymphocytes 12 % (20-50) L 08/07/16 06:50 Monocytes 15 % (2-10) H 08/07/16 06:50 Eosinophils 8 % (0-5) H 08/07/16 06:50 Basophils 3 % (0-3) 08/04/16 08:33 Myelocytes 1 % 07/14/16 16:00 Hypochromia 1+ 07/20/16 23:30 Platelet Estimate DECREASED PLATELETS (NORMAL) 08/07/16 06:50 Platelet Morphology NORMAL (NORMAL) 08/07/16 06:50 Polychromasia 1+ 07/20/16 23:30 Anisocytosis 1+ 08/07/16 06:50 Microcytosis 1+ 07/14/16 16:00 RBC Morph Micro Appear ABNORMAL (NORMAL) 08/07/16 06:50 PT 12.7 SECONDS (9.5-11.5) H 07/01/16 06:57 INR 1.26 (0.5-1.4) 07/01/16 06:57 PTT (Actin FS) 28.3 SECONDS (26.0-38.0) 06/28/16 04:38 Specimen Source Arterial 08/10/16 13:00 Sample Site Right Radial 08/10/16 13:00 pH 7.24 (7.35-7.45) L* 08/10/16 13:00 pCO2 56.0 mmHg (35.0-45.0) H* 08/10/16 13:00 pO2 96.0 mmHg (80.0-100.0) 08/10/16 13:00 HCO3 24.0 mEq/L (20.0-26.0) 08/10/16 13:00 Base Excess -4.0 mEq/L (-3.0-3.0) L 08/10/16 13:00 O2 Saturation 96.0 % (92.0-100.0) 08/10/16 13:00 Estuardo Test YES 08/10/16 13:00 Vent Rate NA 08/10/16 13:00 Inspired O2 100 08/10/16 13:00 Tidal Volume NA 08/10/16 13:00 PEEP NA 08/10/16 13:00 Pressure (ins/psv/peep) NA 08/10/16 13:00 Critical Value [id number] 08/10/16 13:00 Sodium 126 mEq/L (136-145) L 08/07/16 06:50 Potassium 3.5 mEq/L (3.5-5.1) 08/07/16 06:50 Chloride 92 mEq/L (98-107) L 08/07/16 06:50 Carbon Dioxide 26.6 mEq/L (21.0-31.0) 08/07/16 06:50 Anion Gap 10.9 (7.0-16.0) 08/07/16 06:50 BUN 41 mg/dL (7-25) H 08/07/16 06:50 Creatinine 4.2 mg/dL (0.7-1.3) H* 08/07/16 06:50 Est GFR ( Amer) 19.5 ml/min (>90) 08/07/16 06:50 Est GFR (Non-Af Amer) 16.1 ml/min 08/07/16 06:50 BUN/Creatinine Ratio 9.8 08/07/16 06:50 Glucose 95 mg/dL (70-105) 08/07/16 06:50 Calcium 8.9 mg/dL (8.6-10.3) 08/07/16 06:50 Phosphorus 5.5 mg/dL (2.5-5.0) H 07/19/16 09:50 Magnesium 1.9 mg/dL (1.9-2.7) 08/04/16 05:45 Iron 42 ug/dL (38-169) 06/28/16 04:38 TIBC 269 ug/dL (250-450) 06/28/16 04:38 Iron Saturation 16 % (15-55) 06/28/16 04:38 Unsaturated IBC 227 ug/dL (111-343) 06/28/16 04:38 Ferritin 150 ng/mL (30-400) 06/26/16 08:30 Total Bilirubin 0.8 mg/dL (0.3-1.0) 07/28/16 05:30 Direct Bilirubin 0.70 mg/dL (0.0-0.2) H 06/28/16 04:38 GGTP 14 IU/L (0-65) 06/28/16 04:38 AST 52 U/L (13-39) H 07/28/16 05:30 ALT 30 U/L (7-52) 07/28/16 05:30 Alkaline Phosphatase 38 U/L (34-104) 07/28/16 05:30 Ammonia 105 umol/L (16-53) H 07/02/16 06:40 Troponin I < 0.01 ng/mL (0.01-0.05) L 06/22/16 19:33 B-Natriuretic Peptide 668.0 pg/mL (5.0-100.0) H 06/22/16 19:33 Total Protein 7.8 gm/dL (6.0-8.3) 07/28/16 05:30 Albumin 2.7 gm/dL (4.2-5.5) L 07/28/16 05:30 Globulin 5.1 gm/dL 07/28/16 05:30 Albumin/Globulin Ratio 0.5 (1.0-1.8) L 07/28/16 05:30 Amylase 28 U/L (29-103) L 07/02/16 06:40 Lipase 31 U/L (11-82) 07/02/16 06:40 Urine Source CLEAN C 06/29/16 05:55 Urine Color YELLOW 06/29/16 05:55 Urine Clarity HAZY (CLEAR) 06/29/16 05:55 Urine pH 5.5 06/29/16 05:55 Ur Specific [place] 1.015 (1.005-1.030) 06/29/16 05:55 Urine Protein 30 mg/dL (NEGATIVE) H 06/29/16 05:55 Urine Glucose (UA) NEGATIVE mg/dL (NEGATIVE) 06/29/16 05:55 Urine Ketones NEGATIVE mg/dL (NEGATIVE) 06/29/16 05:55 Urine Blood NEGATIVE (NEGATIVE) 06/29/16 05:55 Urine Nitrate NEGATIVE (NEGATIVE) 06/29/16 05:55 Urine Bilirubin NEGATIVE (NEGATIVE) 06/29/16 05:55 Urine Urobilinogen 0.2 E.U./dL (0.2 - 1.0) 06/29/16 05:55 Ur Leukocyte Esterase TRACE (NEGATIVE) H 06/29/16 05:55 Urine RBC 0-2 /hpf (0-5) H 06/29/16 05:55 Urine WBC 6-10 /hpf (0-5) H 06/29/16 05:55 Ur Epithelial Cells FEW /lpf (FEW) 06/29/16 05:55 Urine Bacteria MANY /hpf (NONE SEEN) 06/29/16 05:55 Stool Occult Blood POSITIVE (NEGATIVE) 06/24/16 16:00 Random Vancomycin 13.4 ug/mL (5.0-40.0) 06/28/16 04:38 RPR NONREACTIVE (NONREACTIVE) 06/22/16 19:33 Hepatitis A IgM Ab Negative (Negative) 06/29/16 05:49 Hep Bs Antigen Negative (Negative) 06/29/16 05:49 Hep B Core IgM Ab Negative (Negative) 06/29/16 05:49 Hepatitis C Antibody >11.0 s/co ratio (0.0-0.9) H 06/29/16 05:49 Blood Type A POSITIVE 08/04/16 23:20 Antibody Screen NEGATIVE 08/04/16 23:20 Crossmatch See Detail 08/04/16 23:20 - Physical Exam Vitals and I&O: Vital Signs Temp 98.0 F 08/10/16 04:04 Pulse 98 08/10/16 04:04 Resp 19 08/10/16 04:04 BP 129/54 08/10/16 04:04 Pulse Ox 98 08/10/16 04:04 Intake & Output 08/09/16 08/10/16 08/10/16 18:59 06:59 18:59 Intake Total 1500 240 Output Total 2250 Balance -750 240 Intake: Oral 1500 240 Output: Urine 650 Hemodialysis 1600 Other: Stool Characteristics Soft Soft Active Medications: Current Medications Acetaminophen (Tylenol) 650 mg PO Q6H PRN PRN Reason: temperature above 100F Stop: 09/28/16 16:14 Last Admin: 07/30/16 16:27 Dose: 650 mg Diphenhydramine HCl (Benadryl 50 Mg/Ml) 50 mg IM Q8HR PRN PRN Reason: Agitation Stop: 08/25/16 12:10 Docusate Sodium (Colace) 100 mg PO Q12HR MARQUISE Stop: 09/16/16 08:59 Last Admin: 08/09/16 22:38 Dose: 100 mg Haloperidol Lactate (Haldol) 5 mg IM Q8HR PRN PRN Reason: Agitation Stop: 08/25/16 12:10 Albumin Human (Albuminar 25%) 50 gm in 200 mls @ 50 mls/hr IV X1 ONE Stop: 08/10/16 16:01 Lactic Acid (Lac-Hydrin Cream) 1 appl TP BID MARQUISE Stop: 09/12/16 08:59 Last Admin: 08/09/16 17:43 Dose: 1 appl Lactulose (Cephulac) 20 gm PO Q8HR MARQUISE Stop: 09/16/16 04:59 Last Admin: 08/10/16 06:20 Dose: Not Given Miscellaneous (Clinical Monitoring) 1 ea MC DAILY PRN PRN Reason: RENAL Stop: 10/06/16 08:17 Morphine Sulfate (Morphine) 2 mg IV Q4H PRN PRN Reason: SEVERE PAIN Stop: 09/23/16 12:59 Last Admin: 08/09/16 22:37 Dose: 2 mg General: Moderate distress HEENT: Atraumatic, Mucous membr. moist/pink Neck: Supple, +2 carotid pulse wo bruit Cardiovascular: Regular rate, Normal S1, Normal S2 Lungs: Other (few rhonchi) Abdomen: Bowel sounds, Soft Extremities: Edema ((+) 3 bipedal edema) Neurological: Sensation intact Skin: no Rash - Procedures Procedures: Procedures Procedure Code Date ARTERY-VEIN NONAUTOGRAFT 45571 06/22/16 BLOOD TRANSFUSION SERVICE 15142 06/22/16 BYPASS L BRACH ART TO UP ARM VEIN W NONAUT SUB, OPEN [id number] 06/22/16 FLUOROSCOPY OF SUP VENA CAVA USING [facility] CONTRAST, GUIDANCE [id number] 06/22/16 INSERTION OF INFUSION DEV INTO SUP VENA CAVA, PERC APPROACH [id number] 06/22/[address] PL[address] CATHETER IN VEIN 50383 06/22/16 TRANSFUSE NONAUT RED BLOOD CELLS IN PERIPH VEIN, PERC [id number] 06/22/16 Assessment/Plan - Problem List Patient Problems: All Active Problems Anemia (Acute) D64.9 ESRD (end stage renal disease) (Acute) ESRD (end stage renal disease) on dialysis (Acute) N18.6, Z99.2 ESRD (end stage renal disease) on dialysis (Acute) N18.6, Z99.[address] MED[address] DR FRY (Acute) - Assessment Assessment: septic shock esrd on hd persistent cellulitis b/l lower ext acute on chronic anemia possible gi bleed ohs chronic a. fib hypothyroid anasarca functional quadriplegia chronic venous stasis dermatitis acute decomp psychosis hypokalemia, hypomagnesemia s/p left avg - Plan Plan: Lab - Result Diagrams 07/19/16 09:50 Lab - Result Diagrams 07/22/16 05:21 Lab - Result Diagrams 07/24/16 05:00 Lab - Result Diagrams Lab - Result Diagrams 08/04/16 08:33 Lab - Result Diagrams 08/05/16 05:00 08/04/16 05:45 08/04/16 05:45 07/28/16 05:30 07/28/16 05:30 07/24/16 05:00 07/20/16 05:50 07/19/16 09:50 latest hgb/hct were 6.8/21 developed septic shock panculture continue ABx pressors hold dialysis for now transfuse as necessary Lab - Result Diagrams 07/19/16 09:50 07/20/16 05:50 Lab - Result Diagrams 07/21/16 06:16 07/20/16 05:50 Lab - Result Diagrams 07/26/16 11:05 07/24/16 05:00 Lab - Result Diagrams 07/29/16 05:55 07/28/16 05:30
[2016-08-10] MEDS ORDERED: DOPamine 400 MG/250 ML BAG IV ONE (13:37)
[2016-08-10] MEDS ORDERED: DOPamine 400 MG/250 ML BAG IV PRN (13:38)
[2016-08-10 13:45] LABS: ALB/GLOB RATIO 0.6 (1.0-1.8); ANION GAP 8.2 (7.0-16.0); BUN/CREATININE RATIO 8.2; CALCIUM SERUM 6.9 mg/dL (8.6-10.3); CARBON DIOXIDE 18.6 mEq/L (21.0-31.0); CREATININE - SERUM 3.9 mg/dL (0.7-1.3)
[2016-08-10 13:51] LABS: TOTAL CELLS COUNTED 100
[2016-08-10 13:52] LABS: ANISOCYTOSIS 1+; BAND NEUTROPHILE 14 % (0-10); EOSINOPHIL 1 % (0-5); NEUTROPHILS 77 % (40-80); PLATELET ESTIMATE DECREASED PLATELETS (NORMAL); PLATELET MORPHOLOGY NORMAL (NORMAL)
[2016-08-10 14:00] LABS: POTASSIUM SERUM 2.8 mEq/L (3.5-5.1)
--- NOTE | 2016-08-10 14:24 | Diagnostic Imaging Report ---
CHEST X-RAY: AP view INDICATION: Sepsis COMPARISON: Chest x-ray 06/29/2016 FINDINGS: Left-sided dialysis catheter seen with tip in the SVC. Right PICC line is also stable. Findings of mild congestive changes are noted. There is elevation of the right hemidiaphragm. Increased right basal lung markings are noted. No focal consolidation. There may be a trace right effusion. Cardiomegaly is noted. IMPRESSION: Mild congestive changes. Increased left basal lung markings suggestive of atelectasis. No focal consolidation identified. Cardiomegaly.
[2016-08-10] MEDS ORDERED: KCL 20mEq/100mL Premix 20 MEQ/100 ML PIGGYBACK IV ONE (14:28)
[2016-08-10] MEDS: Meropenem 500 MG in Sodium Chloride 0.9% 100 ML IV SCH (15:13)
[2016-08-10 16:17] LABS: BE(B) -5.5 mEq/L (-3.0-3.0); HCO3 21.9 mEq/L (20.0-26.0)
[2016-08-10 16:18] LABS: ABG SOURCE Arterial; ALLEN TEST YES; FIO2 100; MECH RATE 12; PS 6
[2016-08-10 16:19] LABS: pH 7.25 (7.35-7.45)
--- NOTE | 2016-08-10 16:19 | General Progress Note ---
Subjective - Review of Systems Service Date: 08/10/16 Subjective: ER CONSULT I WAS CALLED FROM ER TO SEE A PATIENT TO EVALUATION HIS LOW BLOOD PRESSURE. THE PRESSURE WAS 70 SYSTOLIC. THE PATIENT WAS PLACED ON DOPAMINE AND THE PRESSURE WAS TITRATED UP TO 87 SYSTOLIC. THE PATIENT WAS THEN TRANSPORTED TO ICU FOR MORE DEFINATVE CARE. Objective - Results Result Diagrams: 08/10/16 12:25 08/10/16 13:25 Recent Labs: Laboratory Last Values WBC 12.1 Th/cmm (4.8-10.8) H D 08/10/16 12:25 RBC 2.39 Mil/cmm (4.30-5.70) L 08/10/16 12:25 Hgb 6.8 gm/dL (13.2-17.3) L* 08/10/16 12:25 Hct 21.0 % (39.0-49.0) L* 08/10/16 12:25 MCV 87.8 fl (80-99) 08/10/16 12:25 MCH 28.4 pg (26.0-30.0) 08/10/16 12:25 MCHC Differential 32.3 pg (28.0-36.0) 08/10/16 12:25 RDW 15.8 % (11.5-20.0) 08/10/16 12:25 Plt Count 111 Th/cmm (150-400) L 08/10/16 12:25 MPV 9.2 fl 08/10/16 12:25 Neutrophils % 56.8 % (40.0-80.0) 07/07/16 06:00 Band Neutrophils % 14 % (0-10) H 08/10/16 12:25 Lymphocytes % 18.4 % (20.0-50.0) L 07/07/16 06:00 Monocytes % 13.8 % (2.0-10.0) H 07/07/16 06:00 Eosinophils % 11.0 % (0.0-5.0) H 07/07/16 06:00 Basophils % 0.0 % (0.0-2.0) 07/07/16 06:00 Neutrophils (Manual) 77 % (40-80) 08/10/16 12:25 Lymphocytes 1 % (20-50) L 08/10/16 12:25 Monocytes 7 % (2-10) 08/10/16 12:25 Eosinophils 1 % (0-5) 08/10/16 12:25 Basophils 3 % (0-3) 08/04/16 08:33 Myelocytes 1 % 07/14/16 16:00 Hypochromia 1+ 07/20/16 23:30 Platelet Estimate DECREASED PLATELETS (NORMAL) 08/10/16 12:25 Platelet Morphology NORMAL (NORMAL) 08/10/16 12:25 Polychromasia 1+ 07/20/16 23:30 Anisocytosis 1+ 08/10/16 12:25 Microcytosis 1+ 07/14/16 16:00 RBC Morph Micro Appear ABNORMAL (NORMAL) 08/10/16 12:25 PT 12.7 SECONDS (9.5-11.5) H 07/01/16 06:57 INR 1.26 (0.5-1.4) 07/01/16 06:57 PTT (Actin FS) 28.3 SECONDS (26.0-38.0) 06/28/16 04:38 Specimen Source Arterial 08/10/16 13:00 Sample Site Right Radial 08/10/16 13:00 pH 7.24 (7.35-7.45) L* 08/10/16 13:00 pCO2 56.0 mmHg (35.0-45.0) H* 08/10/16 13:00 pO2 96.0 mmHg (80.0-100.0) 08/10/16 13:00 HCO3 24.0 mEq/L (20.0-26.0) 08/10/16 13:00 Base Excess -4.0 mEq/L (-3.0-3.0) L 08/10/16 13:00 O2 Saturation 96.0 % (92.0-100.0) 08/10/16 13:00 Estuardo Test YES 08/10/16 13:00 Vent Rate NA 08/10/16 13:00 Inspired O2 100 08/10/16 13:00 Tidal Volume NA 08/10/16 13:00 PEEP NA 08/10/16 13:00 Pressure (ins/psv/peep) NA 08/10/16 13:00 Critical Value E.GIRALDO 08/10/16 13:00 Sodium 103 mEq/L (136-145) L* 08/10/16 13:25 Potassium 2.8 mEq/L (3.5-5.1) L* 08/10/16 13:25 Chloride 79 mEq/L (98-107) L 08/10/16 13:25 Carbon Dioxide 18.6 mEq/L (21.0-31.0) L 08/10/16 13:25 Anion Gap 8.2 (7.0-16.0) 08/10/16 13:25 BUN 32 mg/dL (7-25) H 08/10/16 13:25 Creatinine 3.9 mg/dL (0.7-1.3) H 08/10/16 13:25 Est GFR ( Amer) 21.2 ml/min (>90) 08/10/16 13:25 Est GFR (Non-Af Amer) 17.6 ml/min 08/10/16 13:25 BUN/Creatinine Ratio 8.2 08/10/16 13:25 Glucose 1069 mg/dL (70-105) H* 08/10/16 13:25 Whole Bld Lactic Acid 0.35 mmol/L (0.60-1.99) L 08/10/16 12:25 Calcium 6.9 mg/dL (8.6-10.3) L 08/10/16 13:25 Phosphorus 5.5 mg/dL (2.5-5.0) H 07/19/16 09:50 Magnesium 1.9 mg/dL (1.9-2.7) 08/04/16 05:45 Iron 42 ug/dL (38-169) 06/28/16 04:38 TIBC 269 ug/dL (250-450) 06/28/16 04:38 Iron Saturation 16 % (15-55) 06/28/16 04:38 Unsaturated IBC 227 ug/dL (111-343) 06/28/16 04:38 Ferritin 150 ng/mL (30-400) 06/26/16 08:30 Total Bilirubin 2.0 mg/dL (0.3-1.0) H 08/10/16 13:25 Direct Bilirubin 0.70 mg/dL (0.0-0.2) H 06/28/16 04:38 GGTP 14 IU/L (0-65) 06/28/16 04:38 AST 23 U/L (13-39) 08/10/16 13:25 ALT 12 U/L (7-52) 08/10/16 13:25 Alkaline Phosphatase 37 U/L (34-104) 08/10/16 13:25 Ammonia 105 umol/L (16-53) H 07/02/16 06:40 Troponin I < 0.01 ng/mL (0.01-0.05) L 06/22/16 19:33 B-Natriuretic Peptide 668.0 pg/mL (5.0-100.0) H 06/22/16 19:33 Total Protein 6.2 gm/dL (6.0-8.3) 08/10/16 13:25 Albumin 2.2 gm/dL (4.2-5.5) L 08/10/16 13:25 Globulin 4.0 gm/dL 08/10/16 13:25 Albumin/Globulin Ratio 0.6 (1.0-1.8) L 08/10/16 13:25 Amylase 28 U/L (29-103) L 07/02/16 06:40 Lipase 31 U/L (11-82) 07/02/16 06:40 Urine Source CLEAN C 06/29/16 05:55 Urine Color YELLOW 06/29/16 05:55 Urine Clarity HAZY (CLEAR) 06/29/16 05:55 Urine pH 5.5 06/29/16 05:55 Ur Specific [place] 1.015 (1.005-1.030) 06/29/16 05:55 Urine Protein 30 mg/dL (NEGATIVE) H 06/29/16 05:55 Urine Glucose (UA) NEGATIVE mg/dL (NEGATIVE) 06/29/16 05:55 Urine Ketones NEGATIVE mg/dL (NEGATIVE) 06/29/16 05:55 Urine Blood NEGATIVE (NEGATIVE) 06/29/16 05:55 Urine Nitrate NEGATIVE (NEGATIVE) 06/29/16 05:55 Urine Bilirubin NEGATIVE (NEGATIVE) 06/29/16 05:55 Urine Urobilinogen 0.2 E.U./dL (0.2 - 1.0) 06/29/16 05:55 Ur Leukocyte Esterase TRACE (NEGATIVE) H 06/29/16 05:55 Urine RBC 0-2 /hpf (0-5) H 06/29/16 05:55 Urine WBC 6-10 /hpf (0-5) H 06/29/16 05:55 Ur Epithelial Cells FEW /lpf (FEW) 06/29/16 05:55 Urine Bacteria MANY /hpf (NONE SEEN) 06/29/16 05:55 Stool Occult Blood POSITIVE (NEGATIVE) 06/24/16 16:00 Random Vancomycin 13.4 ug/mL (5.0-40.0) 06/28/16 04:38 RPR NONREACTIVE (NONREACTIVE) 06/22/16 19:33 Hepatitis A IgM Ab Negative (Negative) 06/29/16 05:49 Hep Bs Antigen Negative (Negative) 06/29/16 05:49 Hep B Core IgM Ab Negative (Negative) 06/29/16 05:49 Hepatitis C Antibody >11.0 s/co ratio (0.0-0.9) H 06/29/16 05:49 Blood Type A POSITIVE 08/04/16 23:20 Antibody Screen NEGATIVE 08/04/16 23:20 Crossmatch See Detail 08/04/16 23:20 - Physical Exam Vitals and I&O: Vital Signs Temp 98.0 F 08/10/16 04:04 Pulse 98 08/10/16 04:04 Resp 21 08/10/16 13:45 BP 129/54 08/10/16 04:04 Pulse Ox 100 08/10/16 13:45 Active Medications: Current Medications Acetaminophen (Tylenol) 650 mg PO Q6H PRN PRN Reason: temperature above 100F Stop: 09/28/16 16:14 Last Admin: 07/30/16 16:27 Dose: 650 mg Diphenhydramine HCl (Benadryl 50 Mg/Ml) 50 mg IM Q8HR PRN PRN Reason: Agitation Stop: 08/25/16 12:10 Docusate Sodium (Colace) 100 mg PO Q12HR MARQUISE Stop: 09/16/16 08:59 Last Admin: 08/09/16 22:38 Dose: 100 mg Haloperidol Lactate (Haldol) 5 mg IM Q8HR PRN PRN Reason: Agitation Stop: 08/25/16 12:10 Hydrocortisone Sodium Succinate (Solu-Cortef) 50 mg IVP Q8H MARQUISE Stop: 10/09/16 15:59 Norepinephrine Bitartrate 8 mg (/ Dextrose) 254 mls @ 0 mls/hr IV TITR PRN; Protocol; Per Protocol PRN Reason: BP MAINTENANCE (PER PROTOCOL) Stop: 10/09/16 13:28 Last Admin: 08/10/16 15:06 Dose: 20 mcg/min, 38.1 mls/hr Meropenem 500 mg/ Sodium (Chloride) 100 mls @ 100 mls/hr IV Q12H MARQUISE Stop: 10/09/16 13:59 Last Admin: 08/10/16 15:13 Dose: 100 mls/hr Dopamine HCl/Dextrose (Dopamine) 400 mg in 250 mls @ 0 mls/hr IV TITR PRN; Protocol; Per Protocol PRN Reason: BP MAINTENANCE (PER PROTOCOL) Stop: 10/09/16 13:37 Last Admin: 08/10/16 12:15 Dose: 20 mcg/kg/min, 183.705 mls/hr Potassium Chloride (Potassium Chloride) 20 meq in 100 mls @ 50 mls/hr IV X1 ONE Stop: 08/10/16 16:27 Last Admin: 08/10/16 15:08 Dose: 50 mls/hr Phenylephrine HCl 10 mg/ (Sodium Chloride) 251 mls @ 0 mls/hr IV TITR MARQUISE; Titrate PRN Reason: Protocol Stop: 10/09/16 15:14 Gentamicin Sulfate 140 mg/ (Sodium Chloride) 103.5 mls @ 100 mls/hr IV ONCE ONE Stop: 08/10/16 18:02 Lactic Acid (Lac-Hydrin Cream) 1 appl TP BID MARQUISE Stop: 09/12/16 08:59 Last Admin: 08/09/16 17:43 Dose: 1 appl Lactulose (Cephulac) 20 gm PO Q8HR MARQUISE Stop: 09/16/16 04:59 Last Admin: 08/10/16 06:20 Dose: Not Given Miscellaneous (Clinical Monitoring) 1 ea MC DAILY PRN PRN Reason: RENAL Stop: 10/06/16 08:17 Miscellaneous (Gentamicin Iv Per Pharmacy) 1 ea PRN PRN PRN Reason: PROTOCOL Stop: 10/09/16 15:09 Morphine Sulfate (Morphine) 2 mg IV Q4H PRN PRN Reason: SEVERE PAIN Stop: 09/23/16 12:59 Last Admin: 08/09/16 22:37 Dose: 2 mg - Procedures Procedures: Procedures Procedure Code Date ARTERY-VEIN NONAUTOGRAFT 31885 06/22/16 BLOOD TRANSFUSION SERVICE 08169 06/22/16 BYPASS L BRACH ART TO UP ARM VEIN W NONAUT SUB, OPEN [id number] 06/22/16 FLUOROSCOPY OF SUP VENA CAVA USING [facility] CONTRAST, GUIDANCE [id number] 06/22/16 INSERTION OF INFUSION DEV INTO SUP VENA CAVA, PERC APPROACH [id number] 06/22/16 PLACE CATHETER IN VEIN 29045 06/22/16 TRANSFUSE NONAUT RED BLOOD CELLS IN PERIPH VEIN, PERC [id number] 06/22/16 Assessment/Plan - Problem List Patient Problems: All Active Problems Anemia (Acute) D64.9 ESRD (end stage renal disease) (Acute) ESRD (end stage renal disease) on dialysis (Acute) N18.6, Z99.2 ESRD (end stage renal disease) on dialysis (Acute) N18.6, Z99.[address] FRY (Acute)
[2016-08-10] MEDS ORDERED: Sodium Bicarbonate 8.4% 50mEq PFS IVP ONE ×2 (16:40→16:49)
[2016-08-10] MEDS: Hydrocortisone Sodium Succ 100 mg Vial IVP SCH (17:57)
[2016-08-10] MEDS ORDERED: Sodium Chloride 0.9% 1,000 ML IV SCH ×2 (18:15)
[2016-08-11] MEDS: Hydrocortisone Sodium Succ 100 mg Vial IVP SCH ×4 (00:01→23:53)
--- NOTE | 2016-08-11 00:30 | Consultation ---
The patient of Dr. Valadez. Thank you very much, Dr. Valadez for this consultation. HISTORY OF PRESENT ILLNESS: The patient known to me from previous admission to [facility] with history of end-stage renal disease, sepsis, cellulitis, DVT, end-stage renal disease and obstructive sleep apnea syndrome. The patient apparently presented this morning started having altered level of consciousness, hypoglycemia, hypoxemia and CO2 retention in the blood gas. The patient appears to be altered, lethargic, on the BiPAP, more responsive now than earlier. PAST MEDICAL HISTORY: As above. SOCIAL HISTORY: Remote history of smoking, not sure about drug use. REVIEW OF SYSTEMS: Unable to obtain because of the patient's condition. PHYSICAL EXAMINATION: GENERAL: The patient is arousable, but lethargic. VITAL SIGNS: Temperature 98.0, pulse 90, respiration is 21-28, saturation is 98% and blood pressure is 98/55. HEENT: Atraumatic, normocephalic. Pupils react to light and accommodation. Ears, nose and throat normal. NECK: Supple. CHEST: Rhonchi and decreased breath sound at bases. HEART: Sinus tachycardia. No murmurs. ABDOMEN: Soft. EXTREMITIES: 2+ edema and some erythema. IMAGING: Chest x-ray, atelectasis in bases, mild congestion. LABORATORY DATA: WBCs is 12.2, hemoglobin is 6.8, hematocrit 21.0, platelets is 111. ABGs: pH 7.24, pCO2 of 56, pO2 of 96, bicarbonate is 24, saturation is 96%. BUN is 30. IMPRESSION: 1. Respiratory failure. 2. Sepsis. 3. Altered level of consciousness. 4. Underlying obstructive sleep apnea syndrome. 5. Obesity. 6. End-stage renal disease. 7. Cellulitis. PLAN: 1. Continue volume support. 2. Pulmonary toilet. 3. BiPAP. 4. Follow up ABGs and chest x-ray. Prognosis is guarded. I will follow the patient with you. Thank you very much for this consultation. JOB# [id number] ARLENE
[2016-08-11] MEDS: Meropenem 500 MG in Sodium Chloride 0.9% 100 ML IV SCH ×2 (02:38→14:00)
[2016-08-11] MEDS: Morphine Sulfate 2 mg/mL 1mL Syr IV PRN ×3 (03:06→22:51)
[2016-08-11] MEDS: Lactulose 10 Gm/15 mL 30mL UDC PO SCH ×4 (04:59→20:41)
[2016-08-11 07:05] LABS: MEAN CELL VOLUME 85.8 fl (80-99); MEAN CORPUSCULAR HEMOGLOBIN 28.7 pg (26.0-30.0); MEAN CORPUSCULAR HGB CONC 33.4 pg (28.0-36.0); MEAN PLATELET VOLUME 8.8 fl; RED BLOOD COUNT 3.89 Mil/cmm (4.30-5.70); RED CELL DISTRIBUTION WIDTH 14.6 % (11.5-20.0)
[2016-08-11 07:12] LABS: HEMATOCRIT 33.4 % (39.0-49.0); HEMOGLOBIN 11.2 gm/dL (13.2-17.3); PLATELET COUNT 231 Th/cmm (150-400); WHITE BLOOD COUNT 37.3 Th/cmm (4.8-10.8)
[2016-08-11 07:36] LABS: ALB/GLOB RATIO 0.6 (1.0-1.8); ANION GAP 10.1 (7.0-16.0); BILIRUBIN,TOTAL 1.3 mg/dL (0.3-1.0); BUN/CREATININE RATIO 8.8; CALCIUM SERUM 8.7 mg/dL (8.6-10.3); POTASSIUM SERUM 4.1 mEq/L (3.5-5.1)
[2016-08-11 07:52] LABS: CREATININE - SERUM 4.8 mg/dL (0.7-1.3)
[2016-08-11] MEDS: Ammonium Lactate Cream 140 gm Tube TP SCH ×2 (09:01→16:52)
--- NOTE | 2016-08-11 09:04 | General Progress Note ---
Subjective - Review of Systems Service Date: 08/11/16 Events since last encounter: improving Subjective: c/o weakness Objective - Results Result Diagrams: 08/12/16 05:19 08/12/16 05:19 Recent Labs: Laboratory Last Values WBC 37.3 Th/cmm (4.8-10.8) H* D 08/11/16 06:55 RBC 3.89 Mil/cmm (4.30-5.70) L 08/11/16 06:55 Hgb 11.2 gm/dL (13.2-17.3) L D 08/11/16 06:55 Hct 33.4 % (39.0-49.0) L D 08/11/16 06:55 MCV 85.8 fl (80-99) 08/11/16 06:55 MCH 28.7 pg (26.0-30.0) 08/11/16 06:55 MCHC Differential 33.4 pg (28.0-36.0) 08/11/16 06:55 RDW 14.6 % (11.5-20.0) 08/11/16 06:55 Plt Count 231 Th/cmm (150-400) D 08/11/16 06:55 MPV 8.8 fl 08/11/16 06:55 Neutrophils % 56.8 % (40.0-80.0) 07/07/16 06:00 Band Neutrophils % 14 % (0-10) H 08/10/16 12:25 Lymphocytes % 18.4 % (20.0-50.0) L 07/07/16 06:00 Monocytes % 13.8 % (2.0-10.0) H 07/07/16 06:00 Eosinophils % 11.0 % (0.0-5.0) H 07/07/16 06:00 Basophils % 0.0 % (0.0-2.0) 07/07/16 06:00 Neutrophils (Manual) 77 % (40-80) 08/10/16 12:25 Lymphocytes 1 % (20-50) L 08/10/16 12:25 Monocytes 7 % (2-10) 08/10/16 12:25 Eosinophils 1 % (0-5) 08/10/16 12:25 Basophils 3 % (0-3) 08/04/16 08:33 Myelocytes 1 % 07/14/16 16:00 Hypochromia 1+ 07/20/16 23:30 Platelet Estimate DECREASED PLATELETS (NORMAL) 08/10/16 12:25 Platelet Morphology NORMAL (NORMAL) 08/10/16 12:25 Polychromasia 1+ 07/20/16 23:30 Anisocytosis 1+ 08/10/16 12:25 Microcytosis 1+ 07/14/16 16:00 RBC Morph Micro Appear ABNORMAL (NORMAL) 08/10/16 12:25 PT 12.7 SECONDS (9.5-11.5) H 07/01/16 06:57 INR 1.26 (0.5-1.4) 07/01/16 06:57 PTT (Actin FS) 28.3 SECONDS (26.0-38.0) 06/28/16 04:38 Specimen Source Arterial 08/10/16 15:55 Sample Site Right Radial 08/10/16 15:55 pH 7.25 (7.35-7.45) L 08/10/16 15:55 pCO2 50.0 mmHg (35.0-45.0) H 08/10/16 15:55 pO2 321.0 mmHg (80.0-100.0) H 08/10/16 15:55 HCO3 21.9 mEq/L (20.0-26.0) 08/10/16 15:55 Base Excess -5.5 mEq/L (-3.0-3.0) L 08/10/16 15:55 O2 Saturation 100.0 % (92.0-100.0) 08/10/16 15:55 Estuardo Test YES 08/10/16 15:55 Vent Rate 12 08/10/16 15:55 Inspired O2 100 08/10/16 15:55 Tidal Volume NA 08/10/16 15:55 PEEP 8 08/10/16 15:55 Pressure (ins/psv/peep) 6 08/10/16 15:55 Critical Value E.[email or web address] 08/10/16 15:55 Sodium 127 mEq/L (136-145) L D 08/11/16 06:55 Potassium 4.1 mEq/L (3.5-5.1) 08/11/16 06:55 Chloride 100 mEq/L (98-107) 08/11/16 06:55 Carbon Dioxide 21.0 mEq/L (21.0-31.0) 08/11/16 06:55 Anion Gap 10.1 (7.0-16.0) 08/11/16 06:55 BUN 42 mg/dL (7-25) H 08/11/16 06:55 Creatinine 4.8 mg/dL (0.7-1.3) H* 08/11/16 06:55 Est GFR ( Amer) 16.7 ml/min (>90) 08/11/16 06:55 Est GFR (Non-Af Amer) 13.8 ml/min 08/11/16 06:55 BUN/Creatinine Ratio 8.8 08/11/16 06:55 Glucose 85 mg/dL (70-105) 08/11/16 06:55 POC Glucose 108 MG/DL (70 - 105) H 08/10/16 13:34 Whole Bld Lactic Acid 0.35 mmol/L (0.60-1.99) L 08/10/16 12:25 Calcium 8.7 mg/dL (8.6-10.3) 08/11/16 06:55 Phosphorus 5.5 mg/dL (2.5-5.0) H 07/19/16 09:50 Magnesium 1.9 mg/dL (1.9-2.7) 08/04/16 05:45 Iron 42 ug/dL (38-169) 06/28/16 04:38 TIBC 269 ug/dL (250-450) 06/28/16 04:38 Iron Saturation 16 % (15-55) 06/28/16 04:38 Unsaturated IBC 227 ug/dL (111-343) 06/28/16 04:38 Ferritin 150 ng/mL (30-400) 06/26/16 08:30 Total Bilirubin 1.3 mg/dL (0.3-1.0) H 08/11/16 06:55 Direct Bilirubin 0.70 mg/dL (0.0-0.2) H 06/28/16 04:38 GGTP 14 IU/L (0-65) 06/28/16 04:38 AST 43 U/L (13-39) H 08/11/16 06:55 ALT 19 U/L (7-52) 08/11/16 06:55 Alkaline Phosphatase 34 U/L (34-104) 08/11/16 06:55 Ammonia 105 umol/L (16-53) H 07/02/16 06:40 Troponin I < 0.01 ng/mL (0.01-0.05) L 06/22/16 19:33 B-Natriuretic Peptide 668.0 pg/mL (5.0-100.0) H 06/22/16 19:33 Total Protein 8.3 gm/dL (6.0-8.3) 08/11/16 06:55 Albumin 3.0 gm/dL (4.2-5.5) L 08/11/16 06:55 Globulin 5.3 gm/dL 08/11/16 06:55 Albumin/Globulin Ratio 0.6 (1.0-1.8) L 08/11/16 06:55 Amylase 28 U/L (29-103) L 07/02/16 06:40 Lipase 31 U/L (11-82) 07/02/16 06:40 Urine Source CLEAN C 06/29/16 05:55 Urine Color YELLOW 06/29/16 05:55 Urine Clarity HAZY (CLEAR) 06/29/16 05:55 Urine pH 5.5 06/29/16 05:55 Ur Specific [place] 1.015 (1.005-1.030) 06/29/16 05:55 Urine Protein 30 mg/dL (NEGATIVE) H 06/29/16 05:55 Urine Glucose (UA) NEGATIVE mg/dL (NEGATIVE) 06/29/16 05:55 Urine Ketones NEGATIVE mg/dL (NEGATIVE) 06/29/16 05:55 Urine Blood NEGATIVE (NEGATIVE) 06/29/16 05:55 Urine Nitrate NEGATIVE (NEGATIVE) 06/29/16 05:55 Urine Bilirubin NEGATIVE (NEGATIVE) 06/29/16 05:55 Urine Urobilinogen 0.2 E.U./dL (0.2 - 1.0) 06/29/16 05:55 Ur Leukocyte Esterase TRACE (NEGATIVE) H 06/29/16 05:55 Urine RBC 0-2 /hpf (0-5) H 06/29/16 05:55 Urine WBC 6-10 /hpf (0-5) H 06/29/16 05:55 Ur Epithelial Cells FEW /lpf (FEW) 06/29/16 05:55 Urine Bacteria MANY /hpf (NONE SEEN) 06/29/16 05:55 Stool Occult Blood POSITIVE (NEGATIVE) 06/24/16 16:00 Gentamicin Trough ug/ml (0.2-2.0) 08/11/16 07:32 Random Vancomycin 13.4 ug/mL (5.0-40.0) 06/28/16 04:38 RPR NONREACTIVE (NONREACTIVE) 06/22/16 19:33 Hepatitis A IgM Ab Negative (Negative) 06/29/16 05:49 Hep Bs Antigen Negative (Negative) 06/29/16 05:49 Hep B Core IgM Ab Negative (Negative) 06/29/16 05:49 Hepatitis C Antibody >11.0 s/co ratio (0.0-0.9) H 06/29/16 05:49 Blood Type A POSITIVE 08/10/16 21:07 Antibody Screen NEGATIVE 08/10/16 21:07 Crossmatch See Detail 08/10/16 21:07 - Physical Exam Vitals and I&O: Vital Signs Temp 98.7 F 08/11/16 04:00 Pulse 135 08/11/16 07:00 Resp 19 08/11/16 07:00 BP 92/74 08/11/16 07:00 Pulse Ox 100 08/11/16 07:00 Intake & Output 08/10/16 08/11/16 08/11/16 18:59 06:59 18:59 Intake Total 488.43 2280.213 355.404 Output Total 0 Balance 488.43 2280.213 355.404 Intake: Intake, IV Amount 488.43 1780.213 355.404 DOPamine 400 mg In 250 ml 250 @ Per Protocol IV TITR PRN Rx#:[id number] Meropenem 500 mg In 100 100 Sodium Chloride 0.9% 100 ml @ 100 mls/hr IV Q12H MARQUISE Rx#:[id number] Norepinephrine 8 mg In 138.43 341.63 254 Dextrose 5% 250 ml @ Per Protocol IV TITR PRN Rx#: [id number] Phenylephrine HCl 10 mg 1338.583 101.404 In Sodium Chloride 0.9% 250 ml @ Titrate IV TITR MARQUISE Rx#:[id number] Oral 0 Blood Product 500 Output: Urine 0 Other: # Bowel Movements 1 Active Medications: Current Medications Acetaminophen (Tylenol) 650 mg PO Q6H PRN PRN Reason: temperature above 100F Stop: 09/28/16 16:14 Last Admin: 03/13/17 16:27 Dose: 650 mg Diphenhydramine HCl (Benadryl 50 Mg/Ml) 50 mg IM Q8HR PRN PRN Reason: Agitation Stop: 08/25/16 12:10 Last Admin: 08/11/16 04:26 Dose: 50 mg Docusate Sodium (Colace) 100 mg PO Q12HR MARQUISE Stop: 09/16/16 08:59 Last Admin: 08/11/16 03:03 Dose: Not Given Haloperidol Lactate (Haldol) 5 mg IM Q8HR PRN PRN Reason: Agitation Stop: 08/25/16 12:10 Hydrocortisone Sodium Succinate (Solu-Cortef) 50 mg IVP Q8H MARQUISE Stop: 10/09/16 15:59 Last Admin: 08/11/16 08:04 Dose: 50 mg Norepinephrine Bitartrate 8 mg (/ Dextrose) 254 mls @ 0 mls/hr IV TITR PRN; Protocol; Per Protocol PRN Reason: BP MAINTENANCE (PER PROTOCOL) Stop: 10/09/16 13:28 Last Admin: 08/11/16 08:23 Dose: 30 mcg/min, 57.15 mls/hr Meropenem 500 mg/ Sodium (Chloride) 100 mls @ 100 mls/hr IV Q12H MARQUISE Stop: 10/09/16 13:59 Last Infusion: 08/11/16 03:38 Dose: Infused Phenylephrine HCl 10 mg/ (Sodium Chloride) 251 mls @ 0 mls/hr IV TITR MARQUISE; Titrate PRN Reason: Protocol Stop: 10/09/16 15:14 Last Admin: 08/11/16 07:55 Dose: 50 mcg/min, 75.3 mls/hr Sodium Chloride (Nacl 0.9%) 1,000 mls @ 100 mls/hr IV .Q10H MARQUISE Stop: 10/09/16 18:14 Last Admin: 08/10/16 18:16 Dose: 100 mls/hr Lactic Acid (Lac-Hydrin Cream) 1 appl TP BID MARQUISE Stop: 09/12/16 08:59 Last Admin: 08/11/16 09:01 Dose: 1 appl Lactulose (Cephulac) 20 gm PO Q8HR MARQUISE Stop: 09/16/16 04:59 Last Admin: 08/11/16 05:00 Dose: Not Given Miscellaneous (Clinical Monitoring) 1 ea MC DAILY PRN PRN Reason: RENAL Stop: 10/06/16 08:17 Miscellaneous (Gentamicin Iv Per Pharmacy) 1 ea MC PRN PRN PRN Reason: PROTOCOL Stop: 10/09/16 15:09 Morphine Sulfate (Morphine) 2 mg IV Q4H PRN PRN Reason: SEVERE PAIN Stop: 09/23/16 12:59 Last Admin: 08/11/16 03:06 Dose: 2 mg General: No acute distress, Other (still sob), no Mild distress HEENT: Atraumatic Neck: Other Cardiovascular: Regular rate Lungs: Clear to auscultation - Procedures Procedures: Procedures Procedure Code Date ARTERY-VEIN NONAUTOGRAFT 53326 06/22/16 BLOOD TRANSFUSION SERVICE 14767 06/22/16 BYPASS L BRACH ART TO UP ARM VEIN W NONAUT SUB, OPEN [id number] 06/22/16 FLUOROSCOPY OF SUP VENA CAVA USING OT CONTRAST, GUIDANCE [id number] 06/22/16 INSERTION OF INFUSION DEV INTO SUP VENA CAVA, PERC APPROACH [id number] 06/22/[address] PLACE CATHETER IN VEIN 99961 06/22/16 TRANSFUSE NONAUT RED BLOOD CELLS IN PERIPH VEIN, PERC [id number] 06/22/16 Assessment/Plan - Problem List Patient Problems: All Active Problems Anemia (Acute) D64.9 ESRD (end stage renal disease) (Acute) ESRD (end stage renal disease) on dialysis (Acute) N18.6, Z99.2 ESRD (end stage renal disease) on dialysis (Acute) N18.6, Z99.2 HYPOTENSION (Acute) HYPOXEMIA (Acute) MEDICAL EVALUATION PER DR FRY (Acute) septic shock (Acute) - Assessment Assessment: 1. Cellulitis of legs. 2. Lymphedema of legs. 3. CKD 5 on HD. 4. Morbid obesity. 5 anemia 6 gi bleed 7 psychosis - Plan Plan: cpm awaiting placement
[2016-08-11 09:24] LABS: BE(B) -10.4 mEq/L (-3.0-3.0); HCO3 19.9 mEq/L (20.0-26.0)
[2016-08-11 09:25] LABS: ABG SOURCE Arterial; ALLEN TEST Positive; CRITICAL VALUES REPORTED BY ACELIS; FIO2 36
[2016-08-11 09:31] LABS: BAND NEUTROPHILE 14 % (0-10); EOSINOPHIL 2 % (0-5); NEUTROPHILS 78 % (40-80); PLATELET ESTIMATE ADEQUATE (NORMAL); PLATELET MORPHOLOGY GIANT PLATELETS SEEN (NORMAL); TOTAL CELLS COUNTED 100
[2016-08-11] MEDS ORDERED: Sodium Bicarbonate 8.4% 50mEq PFS IVP STA (09:42)
--- NOTE | 2016-08-11 09:58 | Diagnostic Imaging Report ---
History: Dyspnea Comparison:[08/10/2016] Findings:[No change in positioning of the central line. Heart size is enlarged. Prominent bronchovascular markings in the right lower lung zone.] Impression:[Appeared to previous exam there is been some improvement in congestive changes. There remains minimal infiltrate and effusion in the right lung base.]
[2016-08-11 10:30] LABS: HEMATOCRIT 33.3 % (39.0-49.0); HEMOGLOBIN 10.9 gm/dL (13.2-17.3); MEAN CELL VOLUME 85.7 fl (80-99); MEAN CORPUSCULAR HEMOGLOBIN 28.1 pg (26.0-30.0); MEAN CORPUSCULAR HGB CONC 32.8 pg (28.0-36.0); PLATELET COUNT 197 Th/cmm (150-400); RED BLOOD COUNT 3.88 Mil/cmm (4.30-5.70); RED CELL DISTRIBUTION WIDTH 14.7 % (11.5-20.0)
[2016-08-11 10:32] LABS: WHITE BLOOD COUNT 39.9 Th/cmm (4.8-10.8)
[2016-08-11 11:32] LABS: BAND NEUTROPHILE 17 % (0-10); NEUTROPHILS 75 % (40-80); PLATELET ESTIMATE ADEQUATE (NORMAL); PLATELET MORPHOLOGY NORMAL (NORMAL); TOTAL CELLS COUNTED 100
[2016-08-11] MEDS: metroNIDAZOLE 500mg/NS 100mL 500 MG/100 ML BAG IV SCH ×2 (13:00→20:13)
--- NOTE | 2016-08-11 13:15 | General Progress Note ---
Subjective - Review of Systems Service Date: 08/11/16 Subjective: stuporous, on BIPAP Objective - Results Result Diagrams: 08/11/16 10:20 08/11/16 06:55 Recent Labs: Laboratory Last Values WBC 39.9 Th/cmm (4.8-10.8) H* 08/11/16 10:20 RBC 3.88 Mil/cmm (4.30-5.70) L 08/11/16 10:20 Hgb 10.9 gm/dL (13.2-17.3) L 08/11/16 10:20 Hct 33.3 % (39.0-49.0) L 08/11/16 10:20 MCV 85.7 fl (80-99) 08/11/16 10:20 MCH 28.1 pg (26.0-30.0) 08/11/16 10:20 MCHC Differential 32.8 pg (28.0-36.0) 08/11/16 10:20 RDW 14.7 % (11.5-20.0) 08/11/16 10:20 Plt Count 197 Th/cmm (150-400) 08/11/16 10:20 MPV 9.0 fl 08/11/16 10:20 Neutrophils % 56.8 % (40.0-80.0) 07/07/16 06:00 Band Neutrophils % 17 % (0-10) H 08/11/16 10:20 Lymphocytes % 18.4 % (20.0-50.0) L 07/07/16 06:00 Monocytes % 13.8 % (2.0-10.0) H 07/07/16 06:00 Eosinophils % 11.0 % (0.0-5.0) H 07/07/16 06:00 Basophils % 0.0 % (0.0-2.0) 07/07/16 06:00 Neutrophils (Manual) 75 % (40-80) 08/11/16 10:20 Lymphocytes 3 % (20-50) L 08/11/16 10:20 Monocytes 5 % (2-10) 08/11/16 10:20 Eosinophils 2 % (0-5) 08/11/16 06:55 Basophils 3 % (0-3) 08/04/16 08:33 Myelocytes 1 % 07/14/16 16:00 Hypochromia 1+ 07/20/16 23:30 Platelet Estimate ADEQUATE (NORMAL) 08/11/16 10:20 Platelet Morphology NORMAL (NORMAL) 08/11/16 10:20 Polychromasia 1+ 07/20/16 23:30 Anisocytosis 1+ 08/10/16 12:25 Microcytosis 1+ 07/14/16 16:00 RBC Morph Micro Appear NORMAL (NORMAL) 08/11/16 10:20 PT 12.7 SECONDS (9.5-11.5) H 07/01/16 06:57 INR 1.26 (0.5-1.4) 07/01/16 06:57 PTT (Actin FS) 28.3 SECONDS (26.0-38.0) 06/28/16 04:38 Specimen Source Arterial 08/11/16 09:00 Sample Site Right Radial 08/11/16 09:00 pH 7.10 (7.35-7.45) L* 08/11/16 09:00 pCO2 64.0 mmHg (35.0-45.0) H* 08/11/16 09:00 pO2 68.0 mmHg (80.0-100.0) L 08/11/16 09:00 HCO3 19.9 mEq/L (20.0-26.0) L 08/11/16 09:00 Base Excess -10.4 mEq/L (-3.0-3.0) L 08/11/16 09:00 O2 Saturation 85.0 % (92.0-100.0) L 08/11/16 09:00 Estuardo Test Positive 08/11/16 09:00 Vent Rate NA 08/11/16 09:00 Inspired O2 36 08/11/16 09:00 Tidal Volume NA 08/11/16 09:00 PEEP NA 08/11/16 09:00 Pressure (ins/psv/peep) NA 08/11/16 09:00 Critical Value ACELIS 08/11/16 09:00 Sodium 127 mEq/L (136-145) L D 08/11/16 06:55 Potassium 4.1 mEq/L (3.5-5.1) 08/11/16 06:55 Chloride 100 mEq/L (98-107) 08/11/16 06:55 Carbon Dioxide 21.0 mEq/L (21.0-31.0) 08/11/16 06:55 Anion Gap 10.1 (7.0-16.0) 08/11/16 06:55 BUN 42 mg/dL (7-25) H 08/11/16 06:55 Creatinine 4.8 mg/dL (0.7-1.3) H* 08/11/16 06:55 Est GFR ( Amer) 16.7 ml/min (>90) 08/11/16 06:55 Est GFR (Non-Af Amer) 13.8 ml/min 08/11/16 06:55 BUN/Creatinine Ratio 8.8 08/11/16 06:55 Glucose 85 mg/dL (70-105) 08/11/16 06:55 POC Glucose 108 MG/DL (70 - 105) H 08/10/16 13:34 Whole Bld Lactic Acid 3.21 mmol/L (0.60-1.99) H* 08/11/16 11:07 Calcium 8.7 mg/dL (8.6-10.3) 08/11/16 06:55 Phosphorus 5.5 mg/dL (2.5-5.0) H 07/19/16 09:50 Magnesium 1.9 mg/dL (1.9-2.7) 08/04/16 05:45 Iron 42 ug/dL (38-169) 06/28/16 04:38 TIBC 269 ug/dL (250-450) 06/28/16 04:38 Iron Saturation 16 % (15-55) 06/28/16 04:38 Unsaturated IBC 227 ug/dL (111-343) 06/28/16 04:38 Ferritin 150 ng/mL (30-400) 06/26/16 08:30 Total Bilirubin 1.3 mg/dL (0.3-1.0) H 08/11/16 06:55 Direct Bilirubin 0.70 mg/dL (0.0-0.2) H 06/28/16 04:38 GGTP 14 IU/L (0-65) 06/28/16 04:38 AST 43 U/L (13-39) H 08/11/16 06:55 ALT 19 U/L (7-52) 08/11/16 06:55 Alkaline Phosphatase 34 U/L (34-104) 08/11/16 06:55 Ammonia 105 umol/L (16-53) H 07/02/16 06:40 Troponin I < 0.01 ng/mL (0.01-0.05) L 06/22/16 19:33 B-Natriuretic Peptide 668.0 pg/mL (5.0-100.0) H 06/22/16 19:33 Total Protein 8.3 gm/dL (6.0-8.3) 08/11/16 06:55 Albumin 3.0 gm/dL (4.2-5.5) L 08/11/16 06:55 Globulin 5.3 gm/dL 08/11/16 06:55 Albumin/Globulin Ratio 0.6 (1.0-1.8) L 08/11/16 06:55 Amylase 28 U/L (29-103) L 07/02/16 06:40 Lipase 31 U/L (11-82) 07/02/16 06:40 Urine Source CLEAN C 06/29/16 05:55 Urine Color YELLOW 06/29/16 05:55 Urine Clarity HAZY (CLEAR) 06/29/16 05:55 Urine pH 5.5 06/29/16 05:55 Ur Specific [place] 1.015 (1.005-1.030) 06/29/16 05:55 Urine Protein 30 mg/dL (NEGATIVE) H 06/29/16 05:55 Urine Glucose (UA) NEGATIVE mg/dL (NEGATIVE) 06/29/16 05:55 Urine Ketones NEGATIVE mg/dL (NEGATIVE) 06/29/16 05:55 Urine Blood NEGATIVE (NEGATIVE) 06/29/16 05:55 Urine Nitrate NEGATIVE (NEGATIVE) 06/29/16 05:55 Urine Bilirubin NEGATIVE (NEGATIVE) 06/29/16 05:55 Urine Urobilinogen 0.2 E.U./dL (0.2 - 1.0) 06/29/16 05:55 Ur Leukocyte Esterase TRACE (NEGATIVE) H 06/29/16 05:55 Urine RBC 0-2 /hpf (0-5) H 06/29/16 05:55 Urine WBC 6-10 /hpf (0-5) H 06/29/16 05:55 Ur Epithelial Cells FEW /lpf (FEW) 06/29/16 05:55 Urine Bacteria MANY /hpf (NONE SEEN) 06/29/16 05:55 Stool Occult Blood POSITIVE (NEGATIVE) 06/24/16 16:00 Gentamicin Trough ug/ml (0.2-2.0) 08/11/16 07:32 Random Vancomycin 13.4 ug/mL (5.0-40.0) 06/28/16 04:38 RPR NONREACTIVE (NONREACTIVE) 06/22/16 19:33 Hepatitis A IgM Ab Negative (Negative) 06/29/16 05:49 Hep Bs Antigen Negative (Negative) 06/29/16 05:49 Hep B Core IgM Ab Negative (Negative) 06/29/16 05:49 Hepatitis C Antibody >11.0 s/co ratio (0.0-0.9) H 06/29/16 05:49 Blood Type A POSITIVE 08/10/16 21:07 Antibody Screen NEGATIVE 08/10/16 21:07 Crossmatch See Detail 08/10/16 21:07 - Physical Exam Vitals and I&O: Vital Signs Temp 97.8 F 08/11/16 12:00 Pulse 138 08/11/16 12:45 Resp 18 08/11/16 12:59 BP 103/51 08/11/16 12:45 Pulse Ox 100 08/11/16 12:59 Intake & Output 08/10/16 08/11/16 08/11/16 18:59 06:59 18:59 Intake Total 488.43 2280.213 1718.099 Output Total 0 Balance 488.43 2280.213 1718.099 Intake: Intake, IV Amount 488.43 3675.637 6851.099 DOPamine 400 mg In 250 ml 250 @ Per Protocol IV TITR PRN Rx#:[id number] Meropenem 500 mg In 100 100 Sodium Chloride 0.9% 100 ml @ 100 mls/hr IV Q12H [facility] Rx#:[id number] Norepinephrine 8 mg In 138.43 341.63 254 Dextrose 5% 250 ml @ Per Protocol IV TITR PRN Rx#: [id number] Phenylephrine HCl 10 mg 1338.583 464.099 In Sodium Chloride 0.9% 250 ml @ Titrate IV TITR [facility] Rx#:[id number] Sodium Chloride 0.9% 1, 1000 000 ml @ 100 mls/hr IV . Q10H [facility] Rx#:[id number] Oral 0 Blood Product 500 Output: Urine 0 Other: # Bowel Movements 1 Stool Characteristics Liquid Active Medications: Current Medications Acetaminophen (Tylenol) 650 mg PO Q6H PRN PRN Reason: temperature above 100F Stop: 09/28/16 16:14 Last Admin: 07/30/16 16:27 Dose: 650 mg Diphenhydramine HCl (Benadryl 50 Mg/Ml) 50 mg IM Q8HR PRN PRN Reason: Agitation Stop: 08/25/16 12:10 Last Admin: 08/11/16 04:26 Dose: 50 mg Docusate Sodium (Colace) 100 mg PO Q12HR [facility] Stop: 09/16/16 08:59 Last Admin: 08/11/16 09:00 Dose: Not Given Haloperidol Lactate (Haldol) 5 mg IM Q8HR PRN PRN Reason: Agitation Stop: 08/25/16 12:10 Hydrocortisone Sodium Succinate (Solu-Cortef) 50 mg IVP Q8H [facility] Stop: 10/09/16 15:59 Last Admin: 08/11/16 08:04 Dose: 50 mg Norepinephrine Bitartrate 8 mg (/ Dextrose) 254 mls @ 0 mls/hr IV TITR PRN; Protocol; Per Protocol PRN Reason: BP MAINTENANCE (PER PROTOCOL) Stop: 10/09/16 13:28 Last Admin: 08/11/16 08:23 Dose: 30 mcg/min, 57.15 mls/hr Meropenem 500 mg/ Sodium (Chloride) 100 mls @ 100 mls/hr IV Q12H [facility] Stop: 10/09/16 13:59 Last Infusion: 08/11/16 03:38 Dose: Infused Phenylephrine HCl 10 mg/ (Sodium Chloride) 251 mls @ 0 mls/hr IV TITR [facility]; Titrate PRN Reason: Protocol Stop: 10/09/16 15:14 Last Titration: 08/11/16 13:03 Dose: 45 mcg/min, 67.77 mls/hr Sodium Chloride (Nacl 0.9%) 1,000 mls @ 100 mls/hr IV .Q10H [facility] Stop: 10/09/16 18:14 Last Infusion: 08/11/16 11:30 Dose: Infused Gentamicin Sulfate 140 mg/ (Sodium Chloride) 103.5 mls @ 100 mls/hr IV 1700 [facility] Stop: 08/12/16 05:00 Metronidazole (Flagyl) 500 mg in 100 mls @ 100 mls/hr IV Q8HR [facility] Stop: 10/10/16 12:59 Last Admin: 08/11/16 13:00 Dose: 100 mls/hr Lactic Acid (Lac-Hydrin Cream) 1 appl TP BID [facility] Stop: 09/12/16 08:59 Last Admin: 08/11/16 09:01 Dose: 1 appl Lactulose (Cephulac) 20 gm PO Q8HR [facility] Stop: 09/16/16 04:59 Last Admin: 08/11/16 05:00 Dose: Not Given Miscellaneous (Clinical Monitoring) 1 ea DAILY PRN PRN Reason: RENAL Stop: 10/06/16 08:17 Miscellaneous (Gentamicin Iv Per Pharmacy) 1 ea PRN PRN PRN Reason: PROTOCOL Stop: 10/09/16 15:09 Morphine Sulfate (Morphine) 2 mg IV Q4H PRN PRN Reason: SEVERE PAIN Stop: 09/23/16 12:59 Last Admin: 08/11/16 03:06 Dose: 2 mg General: Mild distress, Other (stuporous) HEENT: Mucous membr. moist/pink Neck: Supple, +2 carotid pulse wo bruit Cardiovascular: Normal S1, Normal S2, Other (tachycardic) Lungs: Other (few rhonchi) Abdomen: Bowel sounds, Obese Extremities: Edema ((+) 3 bipdeal edema) Neurological: Sensation intact Skin: no Rash - Procedures Procedures: Procedures Procedure Code Date ARTERY-VEIN NONAUTOGRAFT 38769 06/22/16 BLOOD TRANSFUSION SERVICE 18749 06/22/16 BYPASS L BRACH ART TO UP ARM VEIN W NONAUT SUB, OPEN [id number] 06/22/16 FLUOROSCOPY OF SUP VENA CAVA USING [facility] CONTRAST, GUIDANCE [id number] 06/22/16 INSERTION OF INFUSION DEV INTO SUP VENA CAVA, PERC APPROACH [id number] 06/22/[address] CATHETER IN VEIN 23284 06/22/16 TRANSFUSE NONAUT RED BLOOD CELLS IN PERIPH VEIN, PERC [id number] 06/22/16 Assessment/Plan - Problem List Patient Problems: All Active Problems Anemia (Acute) D64.9 ESRD (end stage renal disease) (Acute) ESRD (end stage renal disease) on dialysis (Acute) N18.6, Z99.2 ESRD (end stage renal disease) on dialysis (Acute) N18.6, Z99.[address] FRY (Acute) - Assessment Assessment: septic shock esrd on hd persistent cellulitis b/l lower ext acute on chronic anemia possible gi bleed ohs chronic a. fib hypothyroid anasarca functional quadriplegia chronic venous stasis dermatitis acute decomp psychosis s/p left avg G (+) cocci in clusters septicemia - Plan Plan: Lab - Result Diagrams 07/19/16 09:50 Lab - Result Diagrams 07/22/16 05:21 Lab - Result Diagrams 07/24/16 05:00 Lab - Result Diagrams Lab - Result Diagrams 08/04/16 08:33 Lab - Result Diagrams 08/05/16 05:00 08/04/16 05:45 08/04/16 05:45 07/28/16 05:30 07/28/16 05:30 07/24/16 05:00 07/20/16 05:50 07/19/16 09:50 latest hgb/hct were 10.9/33.3 developed septic shock, on Ehsan 50 mcg, Levo 30 mcg culture grew G (+) cocci, WBC up to 39, need to dc perma cath continue ABx pressors hold dialysis for now transfuse as necessary f/u electrolytes, cbc Lab - Result Diagrams 07/19/16 09:50 07/20/16 05:50 Lab - Result Diagrams 07/21/16 06:16 07/20/16 05:50 Lab - Result Diagrams 07/26/16 11:05 07/24/16 05:00 Lab - Result Diagrams 07/29/16 05:55 07/28/16 05:30
--- NOTE | 2016-08-11 15:54 | Infectious Disease Prog Note ---
Infectious Disease Subjective - Review of Systems Service Date: 08/11/16 Subjective: Patient went into septic shock, hypotensive with levophed and neosynephrine started yesterday. Antibiotic quintero, he was also started on Vanco IV, meropenem and gentamicin. Blood culture grew GPC in clusters. Lactic acid was also elevated. Infectious Disease Objective - Results Result Diagrams: 08/11/16 10:20 08/11/16 06:55 Recent Labs: Laboratory Last Values WBC 39.9 Th/cmm (4.8-10.8) H* 08/11/16 10:20 RBC 3.88 Mil/cmm (4.30-5.70) L 08/11/16 10:20 Hgb 10.9 gm/dL (13.2-17.3) L 08/11/16 10:20 Hct 33.3 % (39.0-49.0) L 08/11/16 10:20 MCV 85.7 fl (80-99) 08/11/16 10:20 MCH 28.1 pg (26.0-30.0) 08/11/16 10:20 MCHC Differential 32.8 pg (28.0-36.0) 08/11/16 10:20 RDW 14.7 % (11.5-20.0) 08/11/16 10:20 Plt Count 197 Th/cmm (150-400) 08/11/16 10:20 MPV 9.0 fl 08/11/16 10:20 Neutrophils % 56.8 % (40.0-80.0) 07/07/16 06:00 Band Neutrophils % 17 % (0-10) H 08/11/16 10:20 Lymphocytes % 18.4 % (20.0-50.0) L 07/07/16 06:00 Monocytes % 13.8 % (2.0-10.0) H 07/07/16 06:00 Eosinophils % 11.0 % (0.0-5.0) H 07/07/16 06:00 Basophils % 0.0 % (0.0-2.0) 07/07/16 06:00 Neutrophils (Manual) 75 % (40-80) 08/11/16 10:20 Lymphocytes 3 % (20-50) L 08/11/16 10:20 Monocytes 5 % (2-10) 08/11/16 10:20 Eosinophils 2 % (0-5) 08/11/16 06:55 Basophils 3 % (0-3) 08/04/16 08:33 Myelocytes 1 % 07/14/16 16:00 Hypochromia 1+ 07/20/16 23:30 Platelet Estimate ADEQUATE (NORMAL) 08/11/16 10:20 Platelet Morphology NORMAL (NORMAL) 08/11/16 10:20 Polychromasia 1+ 07/20/16 23:30 Anisocytosis 1+ 08/10/16 12:25 Microcytosis 1+ 07/14/16 16:00 RBC Morph Micro Appear NORMAL (NORMAL) 08/11/16 10:20 PT 12.7 SECONDS (9.5-11.5) H 07/01/16 06:57 INR 1.26 (0.5-1.4) 07/01/16 06:57 PTT (Actin FS) 28.3 SECONDS (26.0-38.0) 06/28/16 04:38 Specimen Source Arterial 08/11/16 09:00 Sample Site Right Radial 08/11/16 09:00 pH 7.10 (7.35-7.45) L* 08/11/16 09:00 pCO2 64.0 mmHg (35.0-45.0) H* 08/11/16 09:00 pO2 68.0 mmHg (80.0-100.0) L 08/11/16 09:00 HCO3 19.9 mEq/L (20.0-26.0) L 08/11/16 09:00 Base Excess -10.4 mEq/L (-3.0-3.0) L 08/11/16 09:00 O2 Saturation 85.0 % (92.0-100.0) L 08/11/16 09:00 Estuardo Test Positive 08/11/16 09:00 Vent Rate NA 08/11/16 09:00 Inspired O2 36 08/11/16 09:00 Tidal Volume NA 08/11/16 09:00 PEEP NA 08/11/16 09:00 Pressure (ins/psv/peep) NA 08/11/16 09:00 Critical Value ACELIS 08/11/16 09:00 Sodium 127 mEq/L (136-145) L D 08/11/16 06:55 Potassium 4.1 mEq/L (3.5-5.1) 08/11/16 06:55 Chloride 100 mEq/L (98-107) 08/11/16 06:55 Carbon Dioxide 21.0 mEq/L (21.0-31.0) 08/11/16 06:55 Anion Gap 10.1 (7.0-16.0) 08/11/16 06:55 BUN 42 mg/dL (7-25) H 08/11/16 06:55 Creatinine 4.8 mg/dL (0.7-1.3) H* 08/11/16 06:55 Est GFR ( Amer) 16.7 ml/min (>90) 08/11/16 06:55 Est GFR (Non-Af Amer) 13.8 ml/min 08/11/16 06:55 BUN/Creatinine Ratio 8.8 08/11/16 06:55 Glucose 85 mg/dL (70-105) 08/11/16 06:55 POC Glucose 108 MG/DL (70 - 105) H 08/10/16 13:34 Whole Bld Lactic Acid 3.83 mmol/L (0.60-1.99) H* 08/11/16 13:07 Calcium 8.7 mg/dL (8.6-10.3) 08/11/16 06:55 Phosphorus 5.5 mg/dL (2.5-5.0) H 07/19/16 09:50 Magnesium 1.9 mg/dL (1.9-2.7) 08/04/16 05:45 Iron 42 ug/dL (38-169) 06/28/16 04:38 TIBC 269 ug/dL (250-450) 06/28/16 04:38 Iron Saturation 16 % (15-55) 06/28/16 04:38 Unsaturated IBC 227 ug/dL (111-343) 06/28/16 04:38 Ferritin 150 ng/mL (30-400) 06/26/16 08:30 Total Bilirubin 1.3 mg/dL (0.3-1.0) H 08/11/16 06:55 Direct Bilirubin 0.70 mg/dL (0.0-0.2) H 06/28/16 04:38 GGTP 14 IU/L (0-65) 06/28/16 04:38 AST 43 U/L (13-39) H 08/11/16 06:55 ALT 19 U/L (7-52) 08/11/16 06:55 Alkaline Phosphatase 34 U/L (34-104) 08/11/16 06:55 Ammonia 105 umol/L (16-53) H 07/02/16 06:40 Troponin I < 0.01 ng/mL (0.01-0.05) L 06/22/16 19:33 B-Natriuretic Peptide 668.0 pg/mL (5.0-100.0) H 06/22/16 19:33 Total Protein 8.3 gm/dL (6.0-8.3) 08/11/16 06:55 Albumin 3.0 gm/dL (4.2-5.5) L 08/11/16 06:55 Globulin 5.3 gm/dL 08/11/16 06:55 Albumin/Globulin Ratio 0.6 (1.0-1.8) L 08/11/16 06:55 Amylase 28 U/L (29-103) L 07/02/16 06:40 Lipase 31 U/L (11-82) 07/02/16 06:40 Urine Source CLEAN C 06/29/16 05:55 Urine Color YELLOW 06/29/16 05:55 Urine Clarity HAZY (CLEAR) 06/29/16 05:55 Urine pH 5.5 06/29/16 05:55 Ur Specific [place] 1.015 (1.005-1.030) 06/29/16 05:55 Urine Protein 30 mg/dL (NEGATIVE) H 06/29/16 05:55 Urine Glucose (UA) NEGATIVE mg/dL (NEGATIVE) 06/29/16 05:55 Urine Ketones NEGATIVE mg/dL (NEGATIVE) 06/29/16 05:55 Urine Blood NEGATIVE (NEGATIVE) 06/29/16 05:55 Urine Nitrate NEGATIVE (NEGATIVE) 06/29/16 05:55 Urine Bilirubin NEGATIVE (NEGATIVE) 06/29/16 05:55 Urine Urobilinogen 0.2 E.U./dL (0.2 - 1.0) 06/29/16 05:55 Ur Leukocyte Esterase TRACE (NEGATIVE) H 06/29/16 05:55 Urine RBC 0-2 /hpf (0-5) H 06/29/16 05:55 Urine WBC 6-10 /hpf (0-5) H 06/29/16 05:55 Ur Epithelial Cells FEW /lpf (FEW) 06/29/16 05:55 Urine Bacteria MANY /hpf (NONE SEEN) 06/29/16 05:55 Stool Occult Blood POSITIVE (NEGATIVE) 06/24/16 16:00 Gentamicin Trough ug/ml (0.2-2.0) 08/11/16 07:32 Random Vancomycin 13.4 ug/mL (5.0-40.0) 06/28/16 04:38 RPR NONREACTIVE (NONREACTIVE) 06/22/16 19:33 Hepatitis A IgM Ab Negative (Negative) 06/29/16 05:49 Hep Bs Antigen Negative (Negative) 06/29/16 05:49 Hep B Core IgM Ab Negative (Negative) 06/29/16 05:49 Hepatitis C Antibody >11.0 s/co ratio (0.0-0.9) H 06/29/16 05:49 Blood Type A POSITIVE 08/10/16 21:07 Antibody Screen NEGATIVE 08/10/16 21:07 Crossmatch See Detail 08/10/16 21:07 - Physical Exam Vitals and I&O: Vital Signs Temp 97.8 F 08/11/16 12:00 Pulse 144 08/11/16 15:30 Resp 19 08/11/16 15:00 BP 105/71 08/11/16 15:30 Pulse Ox 100 08/11/16 15:00 Intake & Output 08/10/16 08/11/16 08/11/16 18:59 06:59 18:59 Intake Total 488.43 2280.213 2311.404 Output Total 0 Balance 488.43 2280.213 2311.404 Intake: Intake, IV Amount 488.43 1923.872 5509.404 DOPamine 400 mg In 250 ml 250 @ Per Protocol IV TITR PRN Rx#:[id number] Meropenem 500 mg In 100 100 100 Sodium Chloride 0.9% 100 ml @ 100 mls/hr IV Q12H [facility] Rx#:[id number] Norepinephrine 8 mg In 138.43 341.63 508 Dextrose 5% 250 ml @ Per Protocol IV TITR PRN Rx#: [id number] Phenylephrine HCl 10 mg 1338.583 603.404 In Sodium Chloride 0.9% 250 ml @ Titrate IV TITR [facility] Rx#:[id number] Sodium Chloride 0.9% 1, 1000 000 ml @ 100 mls/hr IV . Q10H [facility] Rx#:[id number] metroNIDAZOLE 500mg/NS 100 100mL 500 mg In 100 ml @ 100 mls/hr IV Q8HR [facility] Rx #:[id number] Oral 0 Blood Product 500 Output: Urine 0 Other: # Bowel Movements 1 Stool Characteristics Liquid Active Medications: Current Medications Acetaminophen (Tylenol) 650 mg PO Q6H PRN PRN Reason: temperature above 100F Stop: 09/28/16 16:14 Last Admin: 07/30/16 16:27 Dose: 650 mg Diphenhydramine HCl (Benadryl 50 Mg/Ml) 50 mg IM Q8HR PRN PRN Reason: Agitation Stop: 08/25/16 12:10 Last Admin: 08/11/16 04:26 Dose: 50 mg Docusate Sodium (Colace) 100 mg PO Q12HR [facility] Stop: 09/16/16 08:59 Last Admin: 08/11/16 09:00 Dose: Not Given Haloperidol Lactate (Haldol) 5 mg IM Q8HR PRN PRN Reason: Agitation Stop: 08/25/16 12:10 Hydrocortisone Sodium Succinate (Solu-Cortef) 50 mg IVP Q8H [facility] Stop: 10/09/16 15:59 Last Admin: 08/11/16 08:04 Dose: 50 mg Norepinephrine Bitartrate 8 mg (/ Dextrose) 254 mls @ 0 mls/hr IV TITR PRN; Protocol; Per Protocol PRN Reason: BP MAINTENANCE (PER PROTOCOL) Stop: 10/09/16 13:28 Last Admin: 08/11/16 13:15 Dose: 30 mcg/min, 57.15 mls/hr Meropenem 500 mg/ Sodium (Chloride) 100 mls @ 100 mls/hr IV Q12H [facility] Stop: 10/09/16 13:59 Last Infusion: 08/11/16 15:00 Dose: Infused Phenylephrine HCl 10 mg/ (Sodium Chloride) 251 mls @ 0 mls/hr IV TITR [facility]; Titrate PRN Reason: Protocol Stop: 10/09/16 15:14 Last Admin: 08/11/16 15:30 Dose: 40 mcg/min, 60.24 mls/hr Gentamicin Sulfate 140 mg/ (Sodium Chloride) 103.5 mls @ 100 mls/hr IV 1700 [facility] Stop: 08/12/16 05:00 Metronidazole (Flagyl) 500 mg in 100 mls @ 100 mls/hr IV Q8HR [facility] Stop: 10/10/16 12:59 Last Infusion: 08/11/16 14:00 Dose: Infused Lactic Acid (Lac-Hydrin Cream) 1 appl TP BID [facility] Stop: 09/12/16 08:59 Last Admin: 08/11/16 09:01 Dose: 1 appl Lactulose (Cephulac) 20 gm PO Q8HR [facility] Stop: 09/16/16 04:59 Last Admin: 08/11/16 13:00 Dose: Not Given Miscellaneous (Clinical Monitoring) 1 ea DAILY PRN PRN Reason: RENAL Stop: 10/06/16 08:17 Miscellaneous (Gentamicin Iv Per Pharmacy) 1 [facility] PRN PRN PRN Reason: PROTOCOL Stop: 10/09/16 15:09 Morphine Sulfate (Morphine) 2 mg IV Q4H PRN PRN Reason: SEVERE PAIN Stop: 09/23/16 12:59 Last Admin: 08/11/16 15:01 Dose: 2 mg General: no acute distress, other (obese) HEENT: atraumatic, normocephalic, PERRLA, EOMI, moist mucous membrane Neck: supple Cardiovascular: S1S2, regular Lungs: clear to auscultation bilaterally, clear to percussion Abdomen: soft, no tender, no distended Extremities: other (lymphedemaof both legs.), no cyanosis, no clubbing, no edema Neurological: awake, alert, oriented, other (sonewhat drowsy.) Skin: intact - Procedures Procedures: Procedures Procedure Code Date ARTERY-VEIN NONAUTOGRAFT 93460 06/22/16 BLOOD TRANSFUSION SERVICE 50922 06/22/16 BYPASS L BRACH ART TO UP ARM VEIN W NONAUT SUB, OPEN [id number] 06/22/16 FLUOROSCOPY OF SUP VENA CAVA USING [facility] CONTRAST, GUIDANCE [id number] 06/22/16 INSERTION OF INFUSION DEV INTO SUP VENA CAVA, PERC APPROACH [id number] 06/22/[address]HETER IN VEIN 16328 06/22/16 TRANSFUSE NONAUT RED BLOOD CELLS IN PERIPH VEIN, PERC [id number] 06/22/16 Infectious Disease Assmt/Plan - Problem List Patient Problems: All Active Problems Anemia (Acute) D64.9 ESRD (end stage renal disease) (Acute) ESRD (end stage renal disease) on dialysis (Acute) N18.6, Z99.2 ESRD (end stage renal disease) on dialysis (Acute) N18.6, Z99.[address] FRY (Acute) - Assessment Assessment: 1. Septic shock. staph sepsis. likely line sepsis. 2. Pneumonia. 3. CKD 5 on HD. 4. Morbid obesity. 5. hep C. 6. Cellulitis of legs. improved. treated. 7. Lymphedema of legs. 8. CHF. - Plan Plan: Continue vanco IV, gentamicin. DC to SNF.
[2016-08-12] MEDS: Meropenem 500 MG in Sodium Chloride 0.9% 100 ML IV SCH ×2 (02:06→14:00)
[2016-08-12] MEDS: metroNIDAZOLE 500mg/NS 100mL 500 MG/100 ML BAG IV SCH ×3 (05:29→21:18)
[2016-08-12] MEDS: Lactulose 10 Gm/15 mL 30mL UDC PO SCH ×3 (05:39→21:18)
[2016-08-12 05:51] LABS: HEMATOCRIT 35.6 % (39.0-49.0); HEMOGLOBIN 11.6 gm/dL (13.2-17.3); MEAN CELL VOLUME 87.1 fl (80-99); MEAN CORPUSCULAR HEMOGLOBIN 28.3 pg (26.0-30.0); MEAN CORPUSCULAR HGB CONC 32.5 pg (28.0-36.0); MEAN PLATELET VOLUME 8.7 fl; PLATELET COUNT 194 Th/cmm (150-400); RED BLOOD COUNT 4.09 Mil/cmm (4.30-5.70); RED CELL DISTRIBUTION WIDTH 15.2 % (11.5-20.0)
[2016-08-12 05:56] LABS: INR 1.63 (0.5-1.4); PROTHROMBIN TIME (TEST) 17.4 SECONDS (9.5-11.5)
[2016-08-12 05:58] LABS: WHITE BLOOD COUNT 24.9 Th/cmm (4.8-10.8)
[2016-08-12 06:15] LABS: ALB/GLOB RATIO 0.6 (1.0-1.8); ANION GAP 19.3 (7.0-16.0); BILIRUBIN,TOTAL 1.5 mg/dL (0.3-1.0); CALCIUM SERUM 9.3 mg/dL (8.6-10.3); CARBON DIOXIDE 20.3 mEq/L (21.0-31.0); POTASSIUM SERUM 4.6 mEq/L (3.5-5.1)
[2016-08-12 07:00] LABS: CREATININE - SERUM 5.1 mg/dL (0.7-1.3)
--- NOTE | 2016-08-12 08:06 | General Progress Note ---
Subjective - Review of Systems Service Date: 08/12/16 Events since last encounter: patient went into septic shock yesterday Subjective: on bipap inicu 10 Objective - Results Result Diagrams: 08/12/16 05:19 08/12/16 05:19 Recent Labs: Laboratory Last Values WBC 24.9 Th/cmm (4.8-10.8) H* D 08/12/16 05:19 RBC 4.09 Mil/cmm (4.30-5.70) L 08/12/16 05:19 Hgb 11.6 gm/dL (13.2-17.3) L 08/12/16 05:19 Hct 35.6 % (39.0-49.0) L 08/12/16 05:19 MCV 87.1 fl (80-99) 08/12/16 05:19 MCH 28.3 pg (26.0-30.0) 08/12/16 05:19 MCHC Differential 32.5 pg (28.0-36.0) 08/12/16 05:19 RDW 15.2 % (11.5-20.0) 08/12/16 05:19 Plt Count 194 Th/cmm (150-400) 08/12/16 05:19 MPV 8.7 fl 08/12/16 05:19 Neutrophils % 56.8 % (40.0-80.0) 07/07/16 06:00 Band Neutrophils % 17 % (0-10) H 08/11/16 10:20 Lymphocytes % 18.4 % (20.0-50.0) L 07/07/16 06:00 Monocytes % 13.8 % (2.0-10.0) H 07/07/16 06:00 Eosinophils % 11.0 % (0.0-5.0) H 07/07/16 06:00 Basophils % 0.0 % (0.0-2.0) 07/07/16 06:00 Neutrophils (Manual) 75 % (40-80) 08/11/16 10:20 Lymphocytes 3 % (20-50) L 08/11/16 10:20 Monocytes 5 % (2-10) 08/11/16 10:20 Eosinophils 2 % (0-5) 08/11/16 06:55 Basophils 3 % (0-3) 08/04/16 08:33 Myelocytes 1 % 07/14/16 16:00 Hypochromia 1+ 07/20/16 23:30 Platelet Estimate ADEQUATE (NORMAL) 08/11/16 10:20 Platelet Morphology NORMAL (NORMAL) 08/11/16 10:20 Polychromasia 1+ 07/20/16 23:30 Anisocytosis 1+ 08/10/16 12:25 Microcytosis 1+ 07/14/16 16:00 RBC Morph Micro Appear NORMAL (NORMAL) 08/11/16 10:20 PT 17.4 SECONDS (9.5-11.5) H 08/12/16 05:19 INR 1.63 (0.5-1.4) H 08/12/16 05:19 PTT (Actin FS) 28.3 SECONDS (26.0-38.0) 06/28/16 04:38 Specimen Source Arterial 08/11/16 09:00 Sample Site Right Radial 08/11/16 09:00 pH 7.10 (7.35-7.45) L* 08/11/16 09:00 pCO2 64.0 mmHg (35.0-45.0) H* 08/11/16 09:00 pO2 68.0 mmHg (80.0-100.0) L 08/11/16 09:00 HCO3 19.9 mEq/L (20.0-26.0) L 08/11/16 09:00 Base Excess -10.4 mEq/L (-3.0-3.0) L 08/11/16 09:00 O2 Saturation 85.0 % (92.0-100.0) L 08/11/16 09:00 Estuardo Test Positive 08/11/16 09:00 Vent Rate NA 08/11/16 09:00 Inspired O2 36 08/11/16 09:00 Tidal Volume NA 08/11/16 09:00 PEEP NA 08/11/16 09:00 Pressure (ins/psv/peep) NA 08/11/16 09:00 Critical Value ACELIS 08/11/16 09:00 Sodium 128 mEq/L (136-145) L 08/12/16 05:19 Potassium 4.6 mEq/L (3.5-5.1) 08/12/16 05:19 Chloride 93 mEq/L (98-107) L 08/12/16 05:19 Carbon Dioxide 20.3 mEq/L (21.0-31.0) L 08/12/16 05:19 Anion Gap 19.3 (7.0-16.0) H 08/12/16 05:19 BUN 46 mg/dL (7-25) H 08/12/16 05:19 Creatinine 5.1 mg/dL (0.7-1.3) H* 08/12/16 05:19 Est GFR ( Amer) 15.6 ml/min (>90) 08/12/16 05:19 Est GFR (Non-Af Amer) 12.9 ml/min 08/12/16 05:19 BUN/Creatinine Ratio 9.0 08/12/16 05:19 Glucose 111 mg/dL (70-105) H 08/12/16 05:19 POC Glucose 108 MG/DL (70 - 105) H 08/10/16 13:34 Whole Bld Lactic Acid 2.38 mmol/L (0.60-1.99) H* 08/12/16 07:25 Calcium 9.3 mg/dL (8.6-10.3) 08/12/16 05:19 Phosphorus 5.5 mg/dL (2.5-5.0) H 07/19/16 09:50 Magnesium 1.9 mg/dL (1.9-2.7) 08/04/16 05:45 Iron 42 ug/dL (38-169) 06/28/16 04:38 TIBC 269 ug/dL (250-450) 06/28/16 04:38 Iron Saturation 16 % (15-55) 06/28/16 04:38 Unsaturated IBC 227 ug/dL (111-343) 06/28/16 04:38 Ferritin 150 ng/mL (30-400) 06/26/16 08:30 Total Bilirubin 1.5 mg/dL (0.3-1.0) H 08/12/16 05:19 Direct Bilirubin 0.70 mg/dL (0.0-0.2) H 06/28/16 04:38 GGTP 14 IU/L (0-65) 06/28/16 04:38 AST 43 U/L (13-39) H 08/12/16 05:19 ALT 21 U/L (7-52) 08/12/16 05:19 Alkaline Phosphatase 38 U/L (34-104) 08/12/16 05:19 Ammonia 73 umol/L (16-53) H 08/12/16 05:19 Troponin I < 0.01 ng/mL (0.01-0.05) L 06/22/16 19:33 B-Natriuretic Peptide 668.0 pg/mL (5.0-100.0) H 06/22/16 19:33 Total Protein 9.0 gm/dL (6.0-8.3) H 08/12/16 05:19 Albumin 3.2 gm/dL (4.2-5.5) L 08/12/16 05:19 Globulin 5.8 gm/dL 08/12/16 05:19 Albumin/Globulin Ratio 0.6 (1.0-1.8) L 08/12/16 05:19 Amylase 28 U/L (29-103) L 07/02/16 06:40 Lipase 31 U/L (11-82) 07/02/16 06:40 Urine Source CLEAN C 06/29/16 05:55 Urine Color YELLOW 06/29/16 05:55 Urine Clarity HAZY (CLEAR) 06/29/16 05:55 Urine pH 5.5 06/29/16 05:55 Ur Specific [place] 1.015 (1.005-1.030) 06/29/16 05:55 Urine Protein 30 mg/dL (NEGATIVE) H 06/29/16 05:55 Urine Glucose (UA) NEGATIVE mg/dL (NEGATIVE) 06/29/16 05:55 Urine Ketones NEGATIVE mg/dL (NEGATIVE) 06/29/16 05:55 Urine Blood NEGATIVE (NEGATIVE) 06/29/16 05:55 Urine Nitrate NEGATIVE (NEGATIVE) 06/29/16 05:55 Urine Bilirubin NEGATIVE (NEGATIVE) 06/29/16 05:55 Urine Urobilinogen 0.2 E.U./dL (0.2 - 1.0) 06/29/16 05:55 Ur Leukocyte Esterase TRACE (NEGATIVE) H 06/29/16 05:55 Urine RBC 0-2 /hpf (0-5) H 06/29/16 05:55 Urine WBC 6-10 /hpf (0-5) H 06/29/16 05:55 Ur Epithelial Cells FEW /lpf (FEW) 06/29/16 05:55 Urine Bacteria MANY /hpf (NONE SEEN) 06/29/16 05:55 Stool Occult Blood POSITIVE (NEGATIVE) 06/24/16 16:00 Gentamicin Trough ug/ml (0.2-2.0) 08/12/16 05:19 Random Vancomycin 13.4 ug/mL (5.0-40.0) 06/28/16 04:38 RPR NONREACTIVE (NONREACTIVE) 06/22/16 19:33 Hepatitis A IgM Ab Negative (Negative) 06/29/16 05:49 Hep Bs Antigen Negative (Negative) 06/29/16 05:49 Hep B Core IgM Ab Negative (Negative) 06/29/16 05:49 Hepatitis C Antibody >11.0 s/co ratio (0.0-0.9) H 06/29/16 05:49 Blood Type A POSITIVE 08/10/16 21:07 Antibody Screen NEGATIVE 08/10/16 21:07 Crossmatch See Detail 08/10/16 21:07 - Physical Exam Vitals and I&O: Vital Signs Temp 97.5 F 08/12/16 04:00 Pulse 122 08/12/16 07:00 Resp 19 08/12/16 07:15 BP 111/69 08/12/16 07:00 Pulse Ox 100 08/12/16 07:15 Intake & Output 08/11/16 08/12/16 08/12/16 18:59 06:59 18:59 Intake Total 3156.452 1219.068 Output Total 0 0 Balance 3156.452 1219.068 Intake: Intake, IV Amount 2806.452 1019.068 Gentamicin 140 mg In 103.5 Sodium Chloride 0.9% 100 ml @ 100 mls/hr IV 1700 [facility] Rx#:[id number] Meropenem 500 mg In 100 100 Sodium Chloride 0.9% 100 ml @ 100 mls/hr IV Q12H [facility] Rx#:[id number] Norepinephrine 8 mg In 762 498.792 Dextrose 5% 250 ml @ Per Protocol IV TITR PRN Rx#: [id number] Phenylephrine HCl 10 mg 740.952 320.276 In Sodium Chloride 0.9% 250 ml @ Titrate IV TITR [facility] Rx#:[id number] Sodium Chloride 0.9% 1, 1000 000 ml @ 100 mls/hr IV . Q10H [facility] Rx#:[id number] metroNIDAZOLE 500mg/NS 100 100 100mL 500 mg In 100 ml @ 100 mls/hr IV Q8HR [facility] Rx #:[id number] Oral 350 200 Output: Urine 0 0 Urine/Stool Mix 0 Emesis 0 Other: # Voids 0 # Bowel Movements 2 1 Stool Characteristics Liquid Liquid Active Medications: Current Medications Acetaminophen (Tylenol) 650 mg PO Q6H PRN PRN Reason: temperature above 100F Stop: 09/28/16 16:14 Last Admin: 07/30/16 16:27 Dose: 650 mg Diphenhydramine HCl (Benadryl 50 Mg/Ml) 50 mg IM Q8HR PRN PRN Reason: Agitation Stop: 08/25/16 12:10 Last Admin: 08/11/16 04:26 Dose: 50 mg Diphenhydramine HCl (Benadryl 50 Mg/Ml) 25 mg IVP Q6HR PRN PRN Reason: itching Stop: 10/11/16 03:12 Last Admin: 08/12/16 03:58 Dose: 25 mg Docusate Sodium (Colace) 100 mg PO Q12HR [facility] Stop: 09/16/16 08:59 Last Admin: 08/11/16 20:21 Dose: Not Given Haloperidol Lactate (Haldol) 5 mg IM Q8HR PRN PRN Reason: Agitation Stop: 08/25/16 12:10 Hydrocortisone Sodium Succinate (Solu-Cortef) 50 mg IVP Q8H [facility] Stop: 10/09/16 15:59 Last Admin: 08/11/16 23:53 Dose: 50 mg Norepinephrine Bitartrate 8 mg (/ Dextrose) 254 mls @ 0 mls/hr IV TITR PRN; Protocol; Per Protocol PRN Reason: BP MAINTENANCE (PER PROTOCOL) Stop: 10/09/16 13:28 Last Admin: 08/12/16 02:57 Dose: 30 mcg/min, 57.15 mls/hr Meropenem 500 mg/ Sodium (Chloride) 100 mls @ 100 mls/hr IV Q12H [facility] Stop: 10/09/16 13:59 Last Infusion: 08/12/16 03:06 Dose: Infused Phenylephrine HCl 10 mg/ (Sodium Chloride) 251 mls @ 0 mls/hr IV TITR [facility]; Titrate PRN Reason: Protocol Stop: 10/09/16 15:14 Last Admin: 08/12/16 02:43 Dose: 30 mcg/min, 45.18 mls/hr Metronidazole (Flagyl) 500 mg in 100 mls @ 100 mls/hr IV Q8HR [facility] Stop: 10/10/16 12:59 Last Admin: 08/12/16 05:29 Dose: 100 mls/hr Lactic Acid (Lac-Hydrin Cream) 1 appl TP BID [facility] Stop: 09/12/16 08:59 Last Admin: 08/11/16 16:52 Dose: 1 appl Lactulose (Cephulac) 20 gm PO Q8HR [facility] Stop: 09/16/16 04:59 Last Admin: 08/12/16 05:39 Dose: 20 gm Miscellaneous (Clinical Monitoring) 1 ea [facility] DAILY PRN PRN Reason: RENAL Stop: 10/06/16 08:17 Miscellaneous (Gentamicin Iv Per Pharmacy) 1 ea [facility] PRN PRN PRN Reason: PROTOCOL Stop: 10/09/16 15:09 Morphine Sulfate (Morphine) 2 mg IV Q4H PRN PRN Reason: SEVERE PAIN Stop: 09/23/16 12:59 Last Admin: 08/11/16 22:51 Dose: 2 mg General: No acute distress, Moderate distress, Other (resp distress on bipap), no Mild distress HEENT: Atraumatic Neck: Supple Cardiovascular: Regular rate Lungs: Clear to auscultation Abdomen: Bowel sounds Psych/Mental Status: Mental status NL - Procedures Procedures: Procedures Procedure Code Date ARTERY-VEIN NONAUTOGRAFT 64031 06/22/16 BLOOD TRANSFUSION SERVICE 81359 06/22/16 BYPASS L BRACH ART TO UP ARM VEIN W NONAUT SUB, OPEN [id number] 06/22/16 FLUOROSCOPY OF SUP VENA CAVA USING [facility] CONTRAST, GUIDANCE [id number] 06/22/16 INSERTION OF INFUSION DEV INTO SUP VENA CAVA, PERC APPROACH [id number] 06/22/16 PLACE CATHETER IN VEIN 81339 06/22/16 TRANSFUSE NONAUT RED BLOOD CELLS IN PERIPH VEIN, PERC [id number] 06/22/16 Assessment/Plan - Problem List Patient Problems: All Active Problems Anemia (Acute) D64.9 ESRD (end stage renal disease) (Acute) ESRD (end stage renal disease) on dialysis (Acute) N18.6, Z99.2 ESRD (end stage renal disease) on dialysis (Acute) N18.6, Z99.2 HYPOTENSION (Acute) HYPOXEMIA (Acute) MEDICAL EVALUATION PER DR FRY (Acute) septic shock (Acute) - Assessment Assessment: septic shock 1. Cellulitis of legs. 2. Lymphedema of legs. 3. CKD 5 on HD. 4. Morbid obesity. 5 anemia 6 gi bleed 7 psychosis - Plan Plan: cpm awaiting placement jack
[2016-08-12] MEDS: Ammonium Lactate Cream 140 gm Tube TP SCH ×2 (08:40→17:19)
[2016-08-12] MEDS: Hydrocortisone Sodium Succ 100 mg Vial IVP SCH ×2 (08:40→16:55)
[2016-08-12 09:22] LABS: BAND NEUTROPHILE 18 % (0-10); NEUTROPHILS 77 % (40-80); PLATELET ESTIMATE ADEQUATE (NORMAL); PLATELET MORPHOLOGY NORMAL (NORMAL); TOTAL CELLS COUNTED 100
[2016-08-12] MEDS: Morphine Sulfate 2 mg/mL 1mL Syr IV PRN ×2 (09:25→13:30)
--- NOTE | 2016-08-12 09:42 | Diagnostic Imaging Report ---
History: Abdominal distention Findings: Gaseous distention of the stomach. There is a groundglass appearance to the abdominal contents raising question of possible ascites. No bowel displacement. No abnormal calcifications. Impression: No evidence of bowel obstruction. Question of ascites. This could be evaluated with ultrasound
--- NOTE | 2016-08-12 11:21 | Diagnostic Imaging Report ---
History: Chest pain shortness of breath Findings: Double lumen catheter tip in the low superior vena cava. Atelectasis or minimal infiltrate in the lung bases. Heart size is enlarged. Impression: Cardiomegaly. Bibasal atelectasis or infiltrate.
--- NOTE | 2016-08-12 12:45 | General Progress Note ---
Subjective - Review of Systems Service Date: 08/12/16 Subjective: more awake, on NC, refused to sit up to eat Objective - Results Result Diagrams: 08/12/16 05:19 08/12/16 05:19 Recent Labs: Laboratory Last Values WBC 24.9 Th/cmm (4.8-10.8) H* D 08/12/16 05:19 RBC 4.09 Mil/cmm (4.30-5.70) L 08/12/16 05:19 Hgb 11.6 gm/dL (13.2-17.3) L 08/12/16 05:19 Hct 35.6 % (39.0-49.0) L 08/12/16 05:19 MCV 87.1 fl (80-99) 08/12/16 05:19 MCH 28.3 pg (26.0-30.0) 08/12/16 05:19 MCHC Differential 32.5 pg (28.0-36.0) 08/12/16 05:19 RDW 15.2 % (11.5-20.0) 08/12/16 05:19 Plt Count 194 Th/cmm (150-400) 08/12/16 05:19 MPV 8.7 fl 08/12/16 05:19 Neutrophils % 56.8 % (40.0-80.0) 07/07/16 06:00 Band Neutrophils % 18 % (0-10) H 08/12/16 05:19 Lymphocytes % 18.4 % (20.0-50.0) L 07/07/16 06:00 Monocytes % 13.8 % (2.0-10.0) H 07/07/16 06:00 Eosinophils % 11.0 % (0.0-5.0) H 07/07/16 06:00 Basophils % 0.0 % (0.0-2.0) 07/07/16 06:00 Neutrophils (Manual) 77 % (40-80) 08/12/16 05:19 Lymphocytes 3 % (20-50) L 08/12/16 05:19 Monocytes 2 % (2-10) 08/12/16 05:19 Eosinophils 2 % (0-5) 08/11/16 06:55 Basophils 3 % (0-3) 08/04/16 08:33 Myelocytes 1 % 07/14/16 16:00 Hypochromia 1+ 07/20/16 23:30 Platelet Estimate ADEQUATE (NORMAL) 08/12/16 05:19 Platelet Morphology NORMAL (NORMAL) 08/12/16 05:19 Polychromasia 1+ 07/20/16 23:30 Anisocytosis 1+ 08/10/16 12:25 Microcytosis 1+ 07/14/16 16:00 RBC Morph Micro Appear NORMAL (NORMAL) 08/12/16 05:19 PT 17.4 SECONDS (9.5-11.5) H 08/12/16 05:19 INR 1.63 (0.5-1.4) H 08/12/16 05:19 PTT (Actin FS) 28.3 SECONDS (26.0-38.0) 06/28/16 04:38 Specimen Source Arterial 08/11/16 09:00 Sample Site Right Radial 08/11/16 09:00 pH 7.10 (7.35-7.45) L* 08/11/16 09:00 pCO2 64.0 mmHg (35.0-45.0) H* 08/11/16 09:00 pO2 68.0 mmHg (80.0-100.0) L 08/11/16 09:00 HCO3 19.9 mEq/L (20.0-26.0) L 08/11/16 09:00 Base Excess -10.4 mEq/L (-3.0-3.0) L 08/11/16 09:00 O2 Saturation 85.0 % (92.0-100.0) L 08/11/16 09:00 Estuardo Test Positive 08/11/16 09:00 Vent Rate NA 08/11/16 09:00 Inspired O2 36 08/11/16 09:00 Tidal Volume NA 08/11/16 09:00 PEEP NA 08/11/16 09:00 Pressure (ins/psv/peep) NA 08/11/16 09:00 Critical Value ACELIS 08/11/16 09:00 Sodium 128 mEq/L (136-145) L 08/12/16 05:19 Potassium 4.6 mEq/L (3.5-5.1) 08/12/16 05:19 Chloride 93 mEq/L (98-107) L 08/12/16 05:19 Carbon Dioxide 20.3 mEq/L (21.0-31.0) L 08/12/16 05:19 Anion Gap 19.3 (7.0-16.0) H 08/12/16 05:19 BUN 46 mg/dL (7-25) H 08/12/16 05:19 Creatinine 5.1 mg/dL (0.7-1.3) H* 08/12/16 05:19 Est GFR ( Amer) 15.6 ml/min (>90) 08/12/16 05:19 Est GFR (Non-Af Amer) 12.9 ml/min 08/12/16 05:19 BUN/Creatinine Ratio 9.0 08/12/16 05:19 Glucose 111 mg/dL (70-105) H 08/12/16 05:19 POC Glucose 108 MG/DL (70 - 105) H 08/10/16 13:34 Whole Bld Lactic Acid 2.38 mmol/L (0.60-1.99) H* 08/12/16 07:25 Calcium 9.3 mg/dL (8.6-10.3) 08/12/16 05:19 Phosphorus 5.5 mg/dL (2.5-5.0) H 07/19/16 09:50 Magnesium 1.9 mg/dL (1.9-2.7) 08/04/16 05:45 Iron 42 ug/dL (38-169) 06/28/16 04:38 TIBC 269 ug/dL (250-450) 06/28/16 04:38 Iron Saturation 16 % (15-55) 06/28/16 04:38 Unsaturated IBC 227 ug/dL (111-343) 06/28/16 04:38 Ferritin 150 ng/mL (30-400) 06/26/16 08:30 Total Bilirubin 1.5 mg/dL (0.3-1.0) H 08/12/16 05:19 Direct Bilirubin 0.70 mg/dL (0.0-0.2) H 06/28/16 04:38 GGTP 14 IU/L (0-65) 06/28/16 04:38 AST 43 U/L (13-39) H 08/12/16 05:19 ALT 21 U/L (7-52) 08/12/16 05:19 Alkaline Phosphatase 38 U/L (34-104) 08/12/16 05:19 Ammonia 73 umol/L (16-53) H 08/12/16 05:19 Troponin I < 0.01 ng/mL (0.01-0.05) L 06/22/16 19:33 B-Natriuretic Peptide 668.0 pg/mL (5.0-100.0) H 06/22/16 19:33 Total Protein 9.0 gm/dL (6.0-8.3) H 08/12/16 05:19 Albumin 3.2 gm/dL (4.2-5.5) L 08/12/16 05:19 Globulin 5.8 gm/dL 08/12/16 05:19 Albumin/Globulin Ratio 0.6 (1.0-1.8) L 08/12/16 05:19 Amylase 28 U/L (29-103) L 07/02/16 06:40 Lipase 31 U/L (11-82) 07/02/16 06:40 Urine Source CLEAN C 06/29/16 05:55 Urine Color YELLOW 06/29/16 05:55 Urine Clarity HAZY (CLEAR) 06/29/16 05:55 Urine pH 5.5 06/29/16 05:55 Ur Specific [place] 1.015 (1.005-1.030) 06/29/16 05:55 Urine Protein 30 mg/dL (NEGATIVE) H 06/29/16 05:55 Urine Glucose (UA) NEGATIVE mg/dL (NEGATIVE) 06/29/16 05:55 Urine Ketones NEGATIVE mg/dL (NEGATIVE) 06/29/16 05:55 Urine Blood NEGATIVE (NEGATIVE) 06/29/16 05:55 Urine Nitrate NEGATIVE (NEGATIVE) 06/29/16 05:55 Urine Bilirubin NEGATIVE (NEGATIVE) 06/29/16 05:55 Urine Urobilinogen 0.2 E.U./dL (0.2 - 1.0) 06/29/16 05:55 Ur Leukocyte Esterase TRACE (NEGATIVE) H 06/29/16 05:55 Urine RBC 0-2 /hpf (0-5) H 06/29/16 05:55 Urine WBC 6-10 /hpf (0-5) H 06/29/16 05:55 Ur Epithelial Cells FEW /lpf (FEW) 06/29/16 05:55 Urine Bacteria MANY /hpf (NONE SEEN) 06/29/16 05:55 Stool Occult Blood POSITIVE (NEGATIVE) 06/24/16 16:00 Gentamicin Trough ug/ml (0.2-2.0) 08/12/16 05:19 Random Vancomycin 13.4 ug/mL (5.0-40.0) 06/28/16 04:38 RPR NONREACTIVE (NONREACTIVE) 06/22/16 19:33 Hepatitis A IgM Ab Negative (Negative) 06/29/16 05:49 Hep Bs Antigen Negative (Negative) 06/29/16 05:49 Hep B Core IgM Ab Negative (Negative) 06/29/16 05:49 Hepatitis C Antibody >11.0 s/co ratio (0.0-0.9) H 06/29/16 05:49 Blood Type A POSITIVE 08/10/16 21:07 Antibody Screen NEGATIVE 08/10/16 21:07 Crossmatch See Detail 08/10/16 21:07 - Physical Exam Vitals and I&O: Vital Signs Temp 97.2 F 08/12/16 11:00 Pulse 122 08/12/16 11:00 Resp 12 08/12/16 11:00 BP 108/70 08/12/16 11:00 Pulse Ox 94 08/12/16 11:00 Intake & Output 08/11/16 08/12/16 08/12/16 18:59 06:59 18:59 Intake Total 3156.452 1219.068 505 Output Total 0 0 Balance 3156.452 1219.068 505 Intake: Intake, IV Amount 2806.452 1019.068 505 Gentamicin 140 mg In 103.5 Sodium Chloride 0.9% 100 ml @ 100 mls/hr IV 1700 [facility] Rx#:[id number] Meropenem 500 mg In 100 100 Sodium Chloride 0.9% 100 ml @ 100 mls/hr IV Q12H [facility] Rx#:[id number] Norepinephrine 8 mg In 762 498.792 254 Dextrose 5% 250 ml @ Per Protocol IV TITR PRN Rx#: [id number] Phenylephrine HCl 10 mg 740.952 320.276 251 In Sodium Chloride 0.9% 250 ml @ Titrate IV TITR [facility] Rx#:[id number] Sodium Chloride 0.9% 1, 1000 000 ml @ 100 mls/hr IV . Q10H [facility] Rx#:[id number] metroNIDAZOLE 500mg/NS 100 100 100mL 500 mg In 100 ml @ 100 mls/hr IV Q8HR [facility] Rx #:[id number] Oral 350 200 Output: Urine 0 0 Urine/Stool Mix 0 Emesis 0 Other: # Voids 0 # Bowel Movements 2 1 Stool Characteristics Liquid Liquid Liquid Active Medications: Current Medications Acetaminophen (Tylenol) 650 mg PO Q6H PRN PRN Reason: temperature above 100F Stop: 09/28/16 16:14 Last Admin: 07/30/16 16:27 Dose: 650 mg Diphenhydramine HCl (Benadryl 50 Mg/Ml) 50 mg IM Q8HR PRN PRN Reason: Agitation Stop: 08/25/16 12:10 Last Admin: 08/11/16 04:26 Dose: 50 mg Diphenhydramine HCl (Benadryl 50 Mg/Ml) 25 mg IVP Q6HR PRN PRN Reason: itching Stop: 10/11/16 03:12 Last Admin: 08/12/16 09:45 Dose: 25 mg Docusate Sodium (Colace) 100 mg PO Q12HR [facility] Stop: 09/16/16 08:59 Last Admin: 08/12/16 08:40 Dose: Not Given Haloperidol Lactate (Haldol) 5 mg IM Q8HR PRN PRN Reason: Agitation Stop: 08/25/16 12:10 Hydrocortisone Sodium Succinate (Solu-Cortef) 50 mg IVP Q8H [facility] Stop: 10/09/16 15:59 Last Admin: 08/12/16 08:40 Dose: 50 mg Norepinephrine Bitartrate 8 mg (/ Dextrose) 254 mls @ 0 mls/hr IV TITR PRN; Protocol; Per Protocol PRN Reason: BP MAINTENANCE (PER PROTOCOL) Stop: 10/09/16 13:28 Last Admin: 08/12/16 07:40 Dose: 30 mcg/min, 57.15 mls/hr Meropenem 500 mg/ Sodium (Chloride) 100 mls @ 100 mls/hr IV Q12H [facility] Stop: 10/09/16 13:59 Last Infusion: 08/12/16 03:06 Dose: Infused Phenylephrine HCl 10 mg/ (Sodium Chloride) 251 mls @ 0 mls/hr IV TITR [facility]; Titrate PRN Reason: Protocol Stop: 10/09/16 15:14 Last Admin: 08/12/16 09:37 Dose: 30 mcg/min, 45.18 mls/hr Metronidazole (Flagyl) 500 mg in 100 mls @ 100 mls/hr IV Q8HR [facility] Stop: 10/10/16 12:59 Last Admin: 08/12/16 05:29 Dose: 100 mls/hr Lactic Acid (Lac-Hydrin Cream) 1 appl TP BID [facility] Stop: 09/12/16 08:59 Last Admin: 08/12/16 08:40 Dose: 1 appl Lactulose (Cephulac) 20 gm PO Q8HR [facility] Stop: 09/16/16 04:59 Last Admin: 08/12/16 05:39 Dose: 20 gm Miscellaneous (Clinical Monitoring) 1 ea DAILY PRN PRN Reason: RENAL Stop: 10/06/16 08:17 Miscellaneous (Gentamicin Iv Per Pharmacy) 1 [facility] PRN PRN PRN Reason: PROTOCOL Stop: 10/09/16 15:09 Morphine Sulfate (Morphine) 2 mg IV Q4H PRN PRN Reason: SEVERE PAIN Stop: 09/23/16 12:59 Last Admin: 08/12/16 09:25 Dose: 2 mg General: Alert, No acute distress HEENT: Atraumatic, Mucous membr. moist/pink Neck: Supple, +2 carotid pulse wo bruit Cardiovascular: Regular rate, Normal S1, Normal S2 Lungs: Other (few rhonchi) Abdomen: Bowel sounds, Soft Extremities: Edema, Other ((+) 3 bipedal edema) Neurological: Sensation intact Skin: no Rash - Procedures Procedures: Procedures Procedure Code Date ARTERY-VEIN NONAUTOGRAFT 09067 06/22/16 BLOOD TRANSFUSION SERVICE 29984 06/22/16 BYPASS L BRACH ART TO UP ARM VEIN W NONAUT SUB, OPEN [id number] 06/22/16 FLUOROSCOPY OF SUP VENA CAVA USING [facility] CONTRAST, GUIDANCE [id number] 06/22/16 INSERTION OF INFUSION DEV INTO SUP VENA CAVA, PERC APPROACH [id number] 06/22/[address] CATHETER IN VEIN 83622 06/22/16 TRANSFUSE NONAUT RED BLOOD CELLS IN PERIPH VEIN, PERC [id number] 06/22/16 Assessment/Plan - Problem List Patient Problems: All Active Problems Anemia (Acute) D64.9 ESRD (end stage renal disease) (Acute) ESRD (end stage renal disease) on dialysis (Acute) N18.6, Z99.2 ESRD (end stage renal disease) on dialysis (Acute) N18.6, Z99.[address] FRY (Acute) - Assessment Assessment: septic shock esrd on hd persistent cellulitis b/l lower ext acute on chronic anemia possible gi bleed ohs chronic a. fib hypothyroid anasarca functional quadriplegia chronic venous stasis dermatitis acute decomp psychosis s/p left avg G (+) cocci in clusters septicemia - Plan Plan: Lab - Result Diagrams 07/19/16 09:50 Lab - Result Diagrams 07/22/16 05:21 Lab - Result Diagrams 07/24/16 05:00 Lab - Result Diagrams Lab - Result Diagrams 08/04/16 08:33 Lab - Result Diagrams 08/05/16 05:00 08/04/16 05:45 08/04/16 05:45 07/28/16 05:30 07/28/16 05:30 07/24/16 05:00 07/20/16 05:50 07/19/16 09:50 latest hgb/hct were 11.6/35.6 developed septic shock, on Ehsan 30 mcg, Levo 28 mcg culture grew G (+) cocci, WBC up to 24.9, need to dc perma cath continue ABx pressors hold dialysis for now transfuse as necessary f/u electrolytes, cbc Lab - Result Diagrams 07/19/16 09:50 07/20/16 05:50 Lab - Result Diagrams 07/21/16 06:16 07/20/16 05:50 Lab - Result Diagrams 07/26/16 11:05 07/24/16 05:00 Lab - Result Diagrams 07/29/16 05:55 07/28/16 05:30 Lab - Result Diagrams 08/12/16 05:19 08/12/16 05:19
[2016-08-12] MEDS ORDERED: Probiotic Screen MC PRN (14:13)
[2016-08-12 15:25] LABS: BE(B) -6.8 mEq/L (-3.0-3.0); HCO3 20.6 mEq/L (20.0-26.0); pH 7.24 (7.35-7.45)
[2016-08-12 15:26] LABS: ABG SOURCE Arterial; ALLEN TEST Positive; CRITICAL VALUES REPORTED BY ACELIS; FIO2 36
--- NOTE | 2016-08-12 23:34 | Infectious Disease Prog Note ---
Infectious Disease Subjective - Review of Systems Service Date: 08/12/16 Subjective: Patient went into septic shock, hypotensive . on levophed; and neosynephrine discontinued. Antibiotic quintero, he was also started on Vanco IV, meropenem and flagyl. Blood culture grew GPC in clusters. Lactic acid was also elevated. Infectious Disease Objective - Results Result Diagrams: 08/12/16 05:19 08/12/16 05:19 Recent Labs: Laboratory Last Values WBC 24.9 Th/cmm (4.8-10.8) H* D 08/12/16 05:19 RBC 4.09 Mil/cmm (4.30-5.70) L 08/12/16 05:19 Hgb 11.6 gm/dL (13.2-17.3) L 08/12/16 05:19 Hct 35.6 % (39.0-49.0) L 08/12/16 05:19 MCV 87.1 fl (80-99) 08/12/16 05:19 MCH 28.3 pg (26.0-30.0) 08/12/16 05:19 MCHC Differential 32.5 pg (28.0-36.0) 08/12/16 05:19 RDW 15.2 % (11.5-20.0) 08/12/16 05:19 Plt Count 194 Th/cmm (150-400) 08/12/16 05:19 MPV 8.7 fl 08/12/16 05:19 Neutrophils % 56.8 % (40.0-80.0) 07/07/16 06:00 Band Neutrophils % 18 % (0-10) H 08/12/16 05:19 Lymphocytes % 18.4 % (20.0-50.0) L 07/07/16 06:00 Monocytes % 13.8 % (2.0-10.0) H 07/07/16 06:00 Eosinophils % 11.0 % (0.0-5.0) H 07/07/16 06:00 Basophils % 0.0 % (0.0-2.0) 07/07/16 06:00 Neutrophils (Manual) 77 % (40-80) 08/12/16 05:19 Lymphocytes 3 % (20-50) L 08/12/16 05:19 Monocytes 2 % (2-10) 08/12/16 05:19 Eosinophils 2 % (0-5) 08/11/16 06:55 Basophils 3 % (0-3) 08/04/16 08:33 Myelocytes 1 % 07/14/16 16:00 Hypochromia 1+ 07/20/16 23:30 Platelet Estimate ADEQUATE (NORMAL) 08/12/16 05:19 Platelet Morphology NORMAL (NORMAL) 08/12/16 05:19 Polychromasia 1+ 07/20/16 23:30 Anisocytosis 1+ 08/10/16 12:25 Microcytosis 1+ 07/14/16 16:00 RBC Morph Micro Appear NORMAL (NORMAL) 08/12/16 05:19 PT 17.4 SECONDS (9.5-11.5) H 08/12/16 05:19 INR 1.63 (0.5-1.4) H 08/12/16 05:19 PTT (Actin FS) 28.3 SECONDS (26.0-38.0) 06/28/16 04:38 Specimen Source Arterial 08/12/16 14:50 Sample Site Right Radial 08/12/16 14:50 pH 7.24 (7.35-7.45) L* 08/12/16 14:50 pCO2 48.0 mmHg (35.0-45.0) H 08/12/16 14:50 pO2 61.0 mmHg (80.0-100.0) L 08/12/16 14:50 HCO3 20.6 mEq/L (20.0-26.0) 08/12/16 14:50 Base Excess -6.8 mEq/L (-3.0-3.0) L 08/12/16 14:50 O2 Saturation 86.0 % (92.0-100.0) L 08/12/16 14:50 Estuardo Test Positive 08/12/16 14:50 Vent Rate NA 08/12/16 14:50 Inspired O2 36 08/12/16 14:50 Tidal Volume NA 08/12/16 14:50 PEEP NA 08/12/16 14:50 Pressure (ins/psv/peep) NA 08/12/16 14:50 Critical Value ACELIS 08/12/16 14:50 Sodium 128 mEq/L (136-145) L 08/12/16 05:19 Potassium 4.6 mEq/L (3.5-5.1) 08/12/16 05:19 Chloride 93 mEq/L (98-107) L 08/12/16 05:19 Carbon Dioxide 20.3 mEq/L (21.0-31.0) L 08/12/16 05:19 Anion Gap 19.3 (7.0-16.0) H 08/12/16 05:19 BUN 46 mg/dL (7-25) H 08/12/16 05:19 Creatinine 5.1 mg/dL (0.7-1.3) H* 08/12/16 05:19 Est GFR ( Amer) 15.6 ml/min (>90) 08/12/16 05:19 Est GFR (Non-Af Amer) 12.9 ml/min 08/12/16 05:19 BUN/Creatinine Ratio 9.0 08/12/16 05:19 Glucose 111 mg/dL (70-105) H 08/12/16 05:19 POC Glucose 108 MG/DL (70 - 105) H 08/10/16 13:34 Whole Bld Lactic Acid 2.38 mmol/L (0.60-1.99) H* 08/12/16 07:25 Calcium 9.3 mg/dL (8.6-10.3) 08/12/16 05:19 Phosphorus 5.5 mg/dL (2.5-5.0) H 07/19/16 09:50 Magnesium 1.9 mg/dL (1.9-2.7) 08/04/16 05:45 Iron 42 ug/dL (38-169) 06/28/16 04:38 TIBC 269 ug/dL (250-450) 06/28/16 04:38 Iron Saturation 16 % (15-55) 06/28/16 04:38 Unsaturated IBC 227 ug/dL (111-343) 06/28/16 04:38 Ferritin 150 ng/mL (30-400) 06/26/16 08:30 Total Bilirubin 1.5 mg/dL (0.3-1.0) H 08/12/16 05:19 Direct Bilirubin 0.70 mg/dL (0.0-0.2) H 06/28/16 04:38 GGTP 14 IU/L (0-65) 06/28/16 04:38 AST 43 U/L (13-39) H 08/12/16 05:19 ALT 21 U/L (7-52) 08/12/16 05:19 Alkaline Phosphatase 38 U/L (34-104) 08/12/16 05:19 Ammonia 73 umol/L (16-53) H 08/12/16 05:19 Troponin I < 0.01 ng/mL (0.01-0.05) L 06/22/16 19:33 B-Natriuretic Peptide 668.0 pg/mL (5.0-100.0) H 06/22/16 19:33 Total Protein 9.0 gm/dL (6.0-8.3) H 08/12/16 05:19 Albumin 3.2 gm/dL (4.2-5.5) L 08/12/16 05:19 Globulin 5.8 gm/dL 08/12/16 05:19 Albumin/Globulin Ratio 0.6 (1.0-1.8) L 08/12/16 05:19 Amylase 28 U/L (29-103) L 07/02/16 06:40 Lipase 31 U/L (11-82) 07/02/16 06:40 Urine Source CLEAN C 06/29/16 05:55 Urine Color YELLOW 06/29/16 05:55 Urine Clarity HAZY (CLEAR) 06/29/16 05:55 Urine pH 5.5 06/29/16 05:55 Ur Specific [place] 1.015 (1.005-1.030) 06/29/16 05:55 Urine Protein 30 mg/dL (NEGATIVE) H 06/29/16 05:55 Urine Glucose (UA) NEGATIVE mg/dL (NEGATIVE) 06/29/16 05:55 Urine Ketones NEGATIVE mg/dL (NEGATIVE) 06/29/16 05:55 Urine Blood NEGATIVE (NEGATIVE) 06/29/16 05:55 Urine Nitrate NEGATIVE (NEGATIVE) 06/29/16 05:55 Urine Bilirubin NEGATIVE (NEGATIVE) 06/29/16 05:55 Urine Urobilinogen 0.2 E.U./dL (0.2 - 1.0) 06/29/16 05:55 Ur Leukocyte Esterase TRACE (NEGATIVE) H 06/29/16 05:55 Urine RBC 0-2 /hpf (0-5) H 06/29/16 05:55 Urine WBC 6-10 /hpf (0-5) H 06/29/16 05:55 Ur Epithelial Cells FEW /lpf (FEW) 06/29/16 05:55 Urine Bacteria MANY /hpf (NONE SEEN) 06/29/16 05:55 Stool Occult Blood POSITIVE (NEGATIVE) 06/24/16 16:00 Gentamicin Trough ug/ml (0.2-2.0) 08/12/16 05:19 Random Vancomycin 13.4 ug/mL (5.0-40.0) 06/28/16 04:38 RPR NONREACTIVE (NONREACTIVE) 06/22/16 19:33 Hepatitis A IgM Ab Negative (Negative) 06/29/16 05:49 Hep Bs Antigen Negative (Negative) 06/29/16 05:49 Hep B Core IgM Ab Negative (Negative) 06/29/16 05:49 Hepatitis C Antibody >11.0 s/co ratio (0.0-0.9) H 06/29/16 05:49 Blood Type A POSITIVE 08/10/16 21:07 Antibody Screen NEGATIVE 08/10/16 21:07 Crossmatch See Detail 08/10/16 21:07 - Physical Exam Vitals and I&O: Vital Signs Temp 97.0 F 08/12/16 22:00 Pulse 97 08/12/16 23:00 Resp 26 08/12/16 22:15 BP 115/78 08/12/16 23:00 Pulse Ox 98 08/12/16 22:00 Intake & Output 08/12/16 08/12/16 08/13/16 06:59 18:59 06:59 Intake Total 6199.550 5829 254 Output Total 0 0 Balance 2272.579 0916 254 Intake: Intake, IV Amount 0597.115 7112 254 Meropenem 500 mg In 100 100 Sodium Chloride 0.9% 100 ml @ 100 mls/hr IV Q12H [facility] Rx#:[id number] Norepinephrine 8 mg In 498.792 508 254 Dextrose 5% 250 ml @ Per Protocol IV TITR PRN Rx#: [id number] Phenylephrine HCl 10 mg 320.276 502 In Sodium Chloride 0.9% 250 ml @ Titrate IV TITR [facility] Rx#:[id number] metroNIDAZOLE 500mg/NS 200 100 100mL 500 mg In 100 ml @ 100 mls/hr IV Q8HR [facility] Rx #:[id number] Oral 200 450 Output: Urine 0 0 Other: # Bowel Movements 1 1 Stool Characteristics Liquid Liquid Active Medications: Current Medications Acetaminophen (Tylenol) 650 mg PO Q6H PRN PRN Reason: temperature above 100F Stop: 09/28/16 16:14 Last Admin: 07/30/16 16:27 Dose: 650 mg Diphenhydramine HCl (Benadryl 50 Mg/Ml) 50 mg IM Q8HR PRN PRN Reason: Agitation Stop: 08/25/16 12:10 Last Admin: 08/11/16 04:26 Dose: 50 mg Diphenhydramine HCl (Benadryl 50 Mg/Ml) 25 mg IVP Q6HR PRN PRN Reason: itching Stop: 10/11/16 03:12 Last Admin: 08/12/16 22:24 Dose: 25 mg Docusate Sodium (Colace) 100 mg PO Q12HR [facility] Stop: 09/16/16 08:59 Last Admin: 08/12/16 21:18 Dose: 100 mg Haloperidol Lactate (Haldol) 5 mg IM Q8HR PRN PRN Reason: Agitation Stop: 08/25/16 12:10 Hydrocortisone Sodium Succinate (Solu-Cortef) 50 mg IVP Q8H [facility]QU[facility] Stop: 10/09/16 15:59 Last Admin: 08/12/16 16:55 Dose: 50 mg Norepinephrine Bitartrate 8 mg (/ Dextrose) 254 mls @ 0 mls/hr IV TITR PRN; Protocol; Per Protocol PRN Reason: BP MAINTENANCE (PER PROTOCOL) Stop: 10/09/16 13:28 Last Titration: 08/12/16 20:04 Dose: Infused Meropenem 500 mg/ Sodium (Chloride) 100 mls @ 100 mls/hr IV Q12H [facility] Stop: 10/09/16 13:59 Last Infusion: 08/12/16 15:00 Dose: Infused Phenylephrine HCl 10 mg/ (Sodium Chloride) 251 mls @ 0 mls/hr IV TITR MARQUISE; Titrate PRN Reason: Protocol Stop: 10/09/16 15:14 Last Titration: 08/12/16 15:15 Dose: Infused Metronidazole (Flagyl) 500 mg in 100 mls @ 100 mls/hr IV Q8HR [facility] Stop: 10/10/16 12:59 Last Admin: 08/12/16 21:18 Dose: 100 mls/hr Lactic Acid (Lac-Hydrin Cream) 1 appl TP BID [facility]QUISE Stop: 09/12/16 08:59 Last Admin: 08/12/16 17:19 Dose: 1 appl Lactobacillus Rhamnosus (Culturelle) 1 each PO DAILY [facility] Stop: 10/12/16 08:59 Lactulose (Cephulac) 20 gm PO Q8HR [facility] Stop: 09/16/16 04:59 Last Admin: 08/12/16 21:18 Dose: 20 gm Miscellaneous (Clinical Monitoring) 1 ea MC DAILY PRN PRN Reason: RENAL Stop: 10/06/16 08:17 Miscellaneous (Gentamicin Iv Per Pharmacy) 1 ea PRN PRN PRN Reason: PROTOCOL Stop: 10/09/16 15:09 Miscellaneous (Probiotic Screen) 1 ea PRN PRN PRN Reason: PROTOCOL Stop: 10/11/16 14:12 Morphine Sulfate (Morphine) 2 mg IV Q4H PRN PRN Reason: SEVERE PAIN Stop: 09/23/16 12:59 Last Admin: 08/12/16 13:30 Dose: 2 mg General: no acute distress, other (obese) HEENT: atraumatic, normocephalic, PERRLA, EOMI Neck: supple, no thyromegaly, no lymphadenopathy Cardiovascular: S1S2, regular Lungs: clear to auscultation bilaterally, clear to percussion Abdomen: soft, no tender, no distended Extremities: no cyanosis, no clubbing, no edema Neurological: awake, alert, oriented Skin: intact - Procedures Procedures: Procedures Procedure Code Date ARTERY-VEIN NONAUTOGRAFT 91094 06/22/16 BLOOD TRANSFUSION SERVICE 29381 06/22/16 BYPASS L BRACH ART TO UP ARM VEIN W NONAUT SUB, OPEN [id number] 06/22/16 FLUOROSCOPY OF SUP VENA CAVA USING [facility] CONTRAST, GUIDANCE [id number] 06/22/16 INSERTION OF INFUSION DEV INTO SUP VENA CAVA, PERC APPROACH [id number] 06/22/[address] PL[address] CATHETER IN VEIN 94825 06/22/16 TRANSFUSE NONAUT RED BLOOD CELLS IN PERIPH VEIN, PERC [id number] 06/22/16 Infectious Disease Assmt/Plan - Problem List Patient Problems: All Active Problems Anemia (Acute) D64.9 ESRD (end stage renal disease) (Acute) ESRD (end stage renal disease) on dialysis (Acute) N18.6, Z99.2 ESRD (end stage renal disease) on dialysis (Acute) N18.6, Z99.2 HYPOTENSION (Acute) HYPOXEMIA (Acute) MEDICAL EVALUATION PER DR FRY (Acute) septic shock (Acute) - Assessment Assessment: 1. Septic shock. staph sepsis. likely line sepsis. 2. Pneumonia. 3. CKD 5 on HD. 4. Morbid obesity. 5. hep C. 6. Cellulitis of legs. improved. treated. 7. Lymphedema of legs. 8. CHF. 9. diarrhea suspect C diff versus due to laxative. - Plan Plan: Continue vanco IV, and meropenem. continue flagyl. Check stool for c diff.
[2016-08-13] MEDS: Meropenem 500 MG in Sodium Chloride 0.9% 100 ML IV SCH ×2 (01:06→13:23)
[2016-08-13] MEDS: Hydrocortisone Sodium Succ 100 mg Vial IVP SCH ×4 (01:06→23:10)
[2016-08-13] MEDS: Morphine Sulfate 2 mg/mL 1mL Syr IV PRN ×5 (01:31→21:28)
[2016-08-13] MEDS ORDERED: Vancomycin HCl 1.5 GM in Sodium Chloride 0.9% 500 ML IV ONE (03:00)
[2016-08-13] MEDS: metroNIDAZOLE 500mg/NS 100mL 500 MG/100 ML BAG IV SCH ×3 (05:55→20:20)
[2016-08-13] MEDS: Lactulose 10 Gm/15 mL 30mL UDC PO SCH ×4 (05:56→20:20)
[2016-08-13 06:48] LABS: ANION GAP 12.3 (7.0-16.0); CALCIUM SERUM 8.9 mg/dL (8.6-10.3); POTASSIUM SERUM 4.3 mEq/L (3.5-5.1)
[2016-08-13 07:01] LABS: CREATININE - SERUM 5.2 mg/dL (0.7-1.3)
[2016-08-13 07:02] LABS: MEAN CELL VOLUME 85.9 fl (80-99); MEAN CORPUSCULAR HGB CONC 33.8 pg (28.0-36.0); RED BLOOD COUNT 3.46 Mil/cmm (4.30-5.70); RED CELL DISTRIBUTION WIDTH 14.7 % (11.5-20.0)
[2016-08-13 07:05] LABS: INR 1.52 (0.5-1.4); PROTHROMBIN TIME (TEST) 16.1 SECONDS (9.5-11.5)
[2016-08-13 07:26] LABS: WHITE BLOOD COUNT 18.2 Th/cmm (4.8-10.8)
[2016-08-13 07:27] LABS: HEMATOCRIT 29.8 % (39.0-49.0); PLATELET COUNT 135 Th/cmm (150-400)
--- NOTE | 2016-08-13 08:10 | Diagnostic Imaging Report ---
Portable chest x-ray HISTORY: Shortness of breath Compared to prior exam of August 12, 2016, there is persistent marked cardiomegaly. A vascular catheter has been removed. There does appear to be degree of pulmonary vascular redistribution consistent with an element of cardiac decompensation. Density noted in the right lower hemithorax. A pleural effusion cannot be excluded. IMPRESSION: 1. Status post removal vascular catheter 2. Persistent cardiomegaly along with changes suggesting a degree of congestive heart failure. Question right pleural effusion.
[2016-08-13 08:27] LABS: ANISOCYTOSIS 1+; BAND NEUTROPHILE 4 % (0-10); NEUTROPHILS 87 % (40-80); PLATELET ESTIMATE ADEQUATE (NORMAL); PLATELET MORPHOLOGY NORMAL (NORMAL); TOTAL CELLS COUNTED 100
[2016-08-13] MEDS: Ammonium Lactate Cream 140 gm Tube TP SCH ×2 (09:02→17:50)
[2016-08-13] MEDS: Lactobacillus Rhamnosus 10 Billion CFU Capsule PO SCH (09:03)
[2016-08-13] MEDS ORDERED: Vancomycin HCl 2.5 GM in Sodium Chloride 0.9% 500 ML IV ONE (10:00)
[2016-08-13 11:25] LABS: ABG SOURCE Arterial; ALLEN TEST PASS; BE(B) -6.8 mEq/L (-3.0-3.0); HCO3 20.9 mEq/L (20.0-26.0); MECH RATE 12; pH 7.23 (7.35-7.45)
[2016-08-13 11:26] LABS: CRITICAL VALUES REPORTED BY PW; FIO2 30; PS 6
[2016-08-13] MEDS ORDERED: Sodium Bicarbonate 8.4% 50mEq PFS IVP ONE (12:01)
--- NOTE | 2016-08-13 14:12 | General Progress Note ---
Subjective - Review of Systems Service Date: 08/13/16 Subjective: more awake, back on BIPAP, refused to eat Objective - Results Result Diagrams: 08/13/16 06:04 08/13/16 06:04 Recent Labs: Laboratory Last Values WBC 18.2 Th/cmm (4.8-10.8) H D 08/13/16 06:04 RBC 3.46 Mil/cmm (4.30-5.70) L 08/13/16 06:04 Hgb 10.0 gm/dL (13.2-17.3) L 08/13/16 06:04 Hct 29.8 % (39.0-49.0) L D 08/13/16 06:04 MCV 85.9 fl (80-99) 08/13/16 06:04 MCH 29.0 pg (26.0-30.0) 08/13/16 06:04 MCHC Differential 33.8 pg (28.0-36.0) 08/13/16 06:04 RDW 14.7 % (11.5-20.0) 08/13/16 06:04 Plt Count 135 Th/cmm (150-400) L D 08/13/16 06:04 MPV 9.0 fl 08/13/16 06:04 Neutrophils % 56.8 % (40.0-80.0) 07/07/16 06:00 Band Neutrophils % 4 % (0-10) 08/13/16 06:04 Lymphocytes % 18.4 % (20.0-50.0) L 07/07/16 06:00 Monocytes % 13.8 % (2.0-10.0) H 07/07/16 06:00 Eosinophils % 11.0 % (0.0-5.0) H 07/07/16 06:00 Basophils % 0.0 % (0.0-2.0) 07/07/16 06:00 Neutrophils (Manual) 87 % (40-80) H 08/13/16 06:04 Lymphocytes 1 % (20-50) L 08/13/16 06:04 Monocytes 8 % (2-10) 08/13/16 06:04 Eosinophils 2 % (0-5) 08/11/16 06:55 Basophils 3 % (0-3) 08/04/16 08:33 Myelocytes 1 % 07/14/16 16:00 Hypochromia 1+ 07/20/16 23:30 Platelet Estimate ADEQUATE (NORMAL) 08/13/16 06:04 Platelet Morphology NORMAL (NORMAL) 08/13/16 06:04 Polychromasia 1+ 07/20/16 23:30 Anisocytosis 1+ 08/13/16 06:04 Microcytosis 1+ 07/14/16 16:00 RBC Morph Micro Appear ABNORMAL (NORMAL) 08/13/16 06:04 PT 16.1 SECONDS (9.5-11.5) H 08/13/16 06:04 INR 1.52 (0.5-1.4) H 08/13/16 06:04 PTT (Actin FS) 36.0 SECONDS (26.0-38.0) 08/13/16 06:04 Specimen Source Arterial 08/13/16 11:08 Sample Site Right Radial 08/13/16 11:08 pH 7.23 (7.35-7.45) L* 08/13/16 11:08 pCO2 50.0 mmHg (35.0-45.0) H 08/13/16 11:08 pO2 95.0 mmHg (80.0-100.0) 08/13/16 11:08 HCO3 20.9 mEq/L (20.0-26.0) 08/13/16 11:08 Base Excess -6.8 mEq/L (-3.0-3.0) L 08/13/16 11:08 O2 Saturation 96.0 % (92.0-100.0) 08/13/16 11:08 Estuardo Test PASS 08/13/16 11:08 Vent Rate 12 08/13/16 11:08 Inspired O2 30 08/13/16 11:08 Tidal Volume NA 08/12/16 14:50 PEEP NA 08/12/16 14:50 Pressure (ins/psv/peep) 6 08/13/16 11:08 Critical Value PW 08/13/16 11:08 Sodium 123 mEq/L (136-145) L 08/13/16 06:04 Potassium 4.3 mEq/L (3.5-5.1) 08/13/16 06:04 Chloride 93 mEq/L (98-107) L 08/13/16 06:04 Carbon Dioxide 22.0 mEq/L (21.0-31.0) 08/13/16 06:04 Anion Gap 12.3 (7.0-16.0) 08/13/16 06:04 BUN 57 mg/dL (7-25) H 08/13/16 06:04 Creatinine 5.2 mg/dL (0.7-1.3) H* 08/13/16 06:04 Est GFR ( Amer) 15.2 ml/min (>90) 08/13/16 06:04 Est GFR (Non-Af Amer) 12.6 ml/min 08/13/16 06:04 BUN/Creatinine Ratio 11.0 08/13/16 06:04 Glucose 246 mg/dL (70-105) H 08/13/16 06:04 POC Glucose 108 MG/DL (70 - 105) H 08/10/16 13:34 Hemoglobin A1c % 4.8 % (4.0-6.0) 08/13/16 06:04 Whole Bld Lactic Acid 1.54 mmol/L (0.60-1.99) 08/13/16 06:04 Calcium 8.9 mg/dL (8.6-10.3) 08/13/16 06:04 Phosphorus 5.5 mg/dL (2.5-5.0) H 07/19/16 09:50 Magnesium 1.9 mg/dL (1.9-2.7) 08/04/16 05:45 Iron 42 ug/dL (38-169) 06/28/16 04:38 TIBC 269 ug/dL (250-450) 06/28/16 04:38 Iron Saturation 16 % (15-55) 06/28/16 04:38 Unsaturated IBC 227 ug/dL (111-343) 06/28/16 04:38 Ferritin 150 ng/mL (30-400) 06/26/16 08:30 Total Bilirubin 1.5 mg/dL (0.3-1.0) H 08/12/16 05:19 Direct Bilirubin 0.70 mg/dL (0.0-0.2) H 06/28/16 04:38 GGTP 14 IU/L (0-65) 06/28/16 04:38 AST 43 U/L (13-39) H 08/12/16 05:19 ALT 21 U/L (7-52) 08/12/16 05:19 Alkaline Phosphatase 38 U/L (34-104) 08/12/16 05:19 Ammonia 73 umol/L (16-53) H 08/12/16 05:19 Troponin I < 0.01 ng/mL (0.01-0.05) L 06/22/16 19:33 B-Natriuretic Peptide 668.0 pg/mL (5.0-100.0) H 06/22/16 19:33 Total Protein 9.0 gm/dL (6.0-8.3) H 08/12/16 05:19 Albumin 3.2 gm/dL (4.2-5.5) L 08/12/16 05:19 Globulin 5.8 gm/dL 08/12/16 05:19 Albumin/Globulin Ratio 0.6 (1.0-1.8) L 08/12/16 05:19 Amylase 28 U/L (29-103) L 07/02/16 06:40 Lipase 31 U/L (11-82) 07/02/16 06:40 TSH 2.98 uIU/ml (0.34-5.60) 08/13/16 06:04 Urine Source CLEAN C 06/29/16 05:55 Urine Color YELLOW 06/29/16 05:55 Urine Clarity HAZY (CLEAR) 06/29/16 05:55 Urine pH 5.5 06/29/16 05:55 Ur Specific [place] 1.015 (1.005-1.030) 06/29/16 05:55 Urine Protein 30 mg/dL (NEGATIVE) H 06/29/16 05:55 Urine Glucose (UA) NEGATIVE mg/dL (NEGATIVE) 06/29/16 05:55 Urine Ketones NEGATIVE mg/dL (NEGATIVE) 06/29/16 05:55 Urine Blood NEGATIVE (NEGATIVE) 06/29/16 05:55 Urine Nitrate NEGATIVE (NEGATIVE) 06/29/16 05:55 Urine Bilirubin NEGATIVE (NEGATIVE) 06/29/16 05:55 Urine Urobilinogen 0.2 E.U./dL (0.2 - 1.0) 06/29/16 05:55 Ur Leukocyte Esterase TRACE (NEGATIVE) H 06/29/16 05:55 Urine RBC 0-2 /hpf (0-5) H 06/29/16 05:55 Urine WBC 6-10 /hpf (0-5) H 06/29/16 05:55 Ur Epithelial Cells FEW /lpf (FEW) 06/29/16 05:55 Urine Bacteria MANY /hpf (NONE SEEN) 06/29/16 05:55 Stool Occult Blood POSITIVE (NEGATIVE) 06/24/16 16:00 Gentamicin Trough ug/ml (0.2-2.0) 08/12/16 05:19 Random Vancomycin 13.4 ug/mL (5.0-40.0) 06/28/16 04:38 RPR NONREACTIVE (NONREACTIVE) 06/22/16 19:33 Hepatitis A IgM Ab Negative (Negative) 06/29/16 05:49 Hep Bs Antigen Negative (Negative) 06/29/16 05:49 Hep B Core IgM Ab Negative (Negative) 06/29/16 05:49 Hepatitis C Antibody >11.0 s/co ratio (0.0-0.9) H 06/29/16 05:49 Blood Type A POSITIVE 08/10/16 21:07 Antibody Screen NEGATIVE 08/10/16 21:07 Crossmatch See Detail 08/10/16 21:07 - Physical Exam Vitals and I&O: Vital Signs Temp 97.4 F 08/13/16 12:00 Pulse 119 08/13/16 12:00 Resp 15 08/13/16 13:22 BP 117/69 08/13/16 12:00 Pulse Ox 99 08/13/16 13:22 Intake & Output 08/12/16 08/13/16 08/13/16 18:59 06:59 18:59 Intake Total 1660 742.303 100 Output Total 0 Balance 1660 742.303 100 Intake: Intake, IV Amount 1210 692.303 Meropenem 500 mg In 100 100 Sodium Chloride 0.9% 100 ml @ 100 mls/hr IV Q12H [facility] Rx#:[id number] Norepinephrine 8 mg In 508 392.303 Dextrose 5% 250 ml @ Per Protocol IV TITR PRN Rx#: [id number] Phenylephrine HCl 10 mg 502 In Sodium Chloride 0.9% 250 ml @ Titrate IV TITR [facility] Rx#:[id number] metroNIDAZOLE 500mg/NS 100 200 100mL 500 mg In 100 ml @ 100 mls/hr IV Q8HR [facility] Rx #:[id number] Oral 450 50 100 Output: Urine 0 Other: # Voids 1 # Bowel Movements 1 1 Stool Characteristics Liquid Liquid Brown Black Active Medications: Current Medications Acetaminophen (Tylenol) 650 mg PO Q6H PRN PRN Reason: temperature above 100F Stop: 09/28/16 16:14 Last Admin: 07/30/16 16:27 Dose: 650 mg Diphenhydramine HCl (Benadryl 50 Mg/Ml) 50 mg IM Q8HR PRN PRN Reason: Agitation Stop: 08/25/16 12:10 Last Admin: 08/11/16 04:26 Dose: 50 mg Diphenhydramine HCl (Benadryl 50 Mg/Ml) 25 mg IVP Q6HR PRN PRN Reason: itching Stop: 10/11/16 03:12 Last Admin: 08/12/16 22:24 Dose: 25 mg Docusate Sodium (Colace) 100 mg PO Q12HR MARQUISE Stop: 09/16/16 08:59 Last Admin: 08/13/16 09:03 Dose: 100 mg Haloperidol Lactate (Haldol) 5 mg IM Q8HR PRN PRN Reason: Agitation Stop: 08/25/16 12:10 Hydrocortisone Sodium Succinate (Solu-Cortef) 50 mg IVP Q8H MARQUISE Stop: 10/09/16 15:59 Last Admin: 08/13/16 09:03 Dose: 50 mg Norepinephrine Bitartrate 8 mg (/ Dextrose) 254 mls @ 0 mls/hr IV TITR PRN; Protocol; Per Protocol PRN Reason: BP MAINTENANCE (PER PROTOCOL) Stop: 10/09/16 13:28 Last Titration: 08/13/16 06:45 Dose: 12 mcg/min, 22.86 mls/hr Meropenem 500 mg/ Sodium (Chloride) 100 mls @ 100 mls/hr IV Q12H MARQUISE Stop: 10/09/16 13:59 Last Admin: 08/13/16 13:23 Dose: 100 mls/hr Phenylephrine HCl 10 mg/ (Sodium Chloride) 251 mls @ 0 mls/hr IV TITR MARQUISE; Titrate PRN Reason: Protocol Stop: 10/09/16 15:14 Last Titration: 08/12/16 15:15 Dose: Infused Metronidazole (Flagyl) 500 mg in 100 mls @ 100 mls/hr IV Q8HR MARQUISE Stop: 10/10/16 12:59 Last Admin: 08/13/16 13:20 Dose: 100 mls/hr Gentamicin Sulfate 160 mg/ (Sodium Chloride) 104 mls @ 100 mls/hr IV 2100 ONE Stop: 08/13/16 22:02 Lactic Acid (Lac-Hydrin Cream) 1 appl TP BID MARQUISE Stop: 09/12/16 08:59 Last Admin: 08/13/16 09:02 Dose: 1 appl Lactobacillus Rhamnosus (Culturelle) 1 each PO DAILY MARQUISE Stop: 10/12/16 08:59 Last Admin: 08/13/16 09:03 Dose: 1 each Lactulose (Cephulac) 20 gm PO Q8HR MARQUISE Stop: 09/16/16 04:59 Last Admin: 08/13/16 13:19 Dose: 20 gm Miscellaneous (Clinical Monitoring) 1 ea DAILY PRN PRN Reason: RENAL Stop: 10/06/16 08:17 Miscellaneous (Gentamicin Iv Per Pharmacy) 1 [facility] PRN PRN PRN Reason: PROTOCOL Stop: 10/09/16 15:09 Miscellaneous (Probiotic Screen) 1 ea PRN PRN PRN Reason: PROTOCOL Stop: 10/11/16 14:12 Miscellaneous (Vancomycin Iv Per Pharmacy) 1 ea MC PRN MARQUISE Stop: 10/12/16 01:29 Morphine Sulfate (Morphine) 2 mg IV Q4H PRN PRN Reason: SEVERE PAIN Stop: 09/23/16 12:59 Last Admin: 08/13/16 11:23 Dose: 2 mg General: Alert, Moderate distress HEENT: Atraumatic, Mucous membr. moist/pink Neck: Supple, +2 carotid pulse wo bruit Cardiovascular: Regular rate, Normal S1, Normal S2 Lungs: Other (harsh BS) Abdomen: Bowel sounds, Soft Extremities: Edema ((+) 3 bipdeal) Neurological: Sensation intact Skin: no Rash - Procedures Procedures: Procedures Procedure Code Date ARTERY-VEIN NONAUTOGRAFT 37568 06/22/16 BLOOD TRANSFUSION SERVICE 84145 06/22/16 BYPASS L BRACH ART TO UP ARM VEIN W NONAUT SUB, OPEN [id number] 06/22/16 FLUOROSCOPY OF SUP VENA CAVA USING OT CONTRAST, GUIDANCE [id number] 06/22/16 INSERTION OF INFUSION DEV INTO SUP VENA CAVA, PERC APPROACH [id number] 06/22/[address] CATHETER IN VEIN 63103 06/22/16 TRANSFUSE NONAUT RED BLOOD CELLS IN PERIPH VEIN, PERC [id number] 06/22/16 Assessment/Plan - Problem List Patient Problems: All Active Problems Anemia (Acute) D64.9 ESRD (end stage renal disease) (Acute) ESRD (end stage renal disease) on dialysis (Acute) N18.6, Z99.2 ESRD (end stage renal disease) on dialysis (Acute) N18.6, Z99.2 HYPOTENSION (Acute) HYPOXEMIA (Acute) MEDICAL EVALUATION PER DR FRY (Acute) septic shock (Acute) - Assessment Assessment: septic shock (better) esrd on hd persistent cellulitis b/l lower ext acute on chronic anemia possible gi bleed ohs chronic a. fib hypothyroid anasarca functional quadriplegia chronic venous stasis dermatitis acute decomp psychosis s/p left avg G (+) cocci in clusters septicemia - Plan Plan: Lab - Result Diagrams 07/19/16 09:50 Lab - Result Diagrams 07/22/16 05:21 Lab - Result Diagrams 07/24/16 05:00 Lab - Result Diagrams Lab - Result Diagrams 08/04/16 08:33 Lab - Result Diagrams 08/05/16 05:00 08/04/16 05:45 08/04/16 05:45 07/28/16 05:30 07/28/16 05:30 07/24/16 05:00 07/20/16 05:50 07/19/16 09:50 latest hgb/hct were 10/29.8 developed septic shock, Levo 8 mcg culture grew G (+) cocci, WBC up to 18.2, awaiting Juan Carlos cath continue ABx pressors dialysis after juan carlos transfuse as necessary f/u electrolytes, cbc Lab - Result Diagrams 07/19/16 09:50 07/20/16 05:50 Lab - Result Diagrams 07/21/16 06:16 07/20/16 05:50 Lab - Result Diagrams 07/26/16 11:05 07/24/16 05:00 Lab - Result Diagrams 07/29/16 05:55 07/28/16 05:30 Lab - Result Diagrams 08/12/16 05:19 08/12/16 05:19
[2016-08-13] MEDS ORDERED: Gentamicin 160 MG in Sodium Chloride 0.9% 100 ML IV ONE (21:00)
--- NOTE | 2016-08-13 23:55 | Infectious Disease Prog Note ---
Infectious Disease Subjective - Review of Systems Service Date: 08/13/16 Subjective: Patient went into septic shock, hypotensive . on levophed low dose. Antibiotic quintero, he was also started on Vanco IV, meropenem and flagyl. Blood culture grew GPC in clusters. Lactic acid was also elevated. Infectious Disease Objective - Results Result Diagrams: 08/13/16 06:04 08/13/16 06:04 Recent Labs: Laboratory Last Values WBC 18.2 Th/cmm (4.8-10.8) H D 08/13/16 06:04 RBC 3.46 Mil/cmm (4.30-5.70) L 08/13/16 06:04 Hgb 10.0 gm/dL (13.2-17.3) L 08/13/16 06:04 Hct 29.8 % (39.0-49.0) L D 08/13/16 06:04 MCV 85.9 fl (80-99) 08/13/16 06:04 MCH 29.0 pg (26.0-30.0) 08/13/16 06:04 MCHC Differential 33.8 pg (28.0-36.0) 08/13/16 06:04 RDW 14.7 % (11.5-20.0) 08/13/16 06:04 Plt Count 135 Th/cmm (150-400) L D 08/13/16 06:04 MPV 9.0 fl 08/13/16 06:04 Neutrophils % 56.8 % (40.0-80.0) 07/07/16 06:00 Band Neutrophils % 4 % (0-10) 08/13/16 06:04 Lymphocytes % 18.4 % (20.0-50.0) L 07/07/16 06:00 Monocytes % 13.8 % (2.0-10.0) H 07/07/16 06:00 Eosinophils % 11.0 % (0.0-5.0) H 07/07/16 06:00 Basophils % 0.0 % (0.0-2.0) 07/07/16 06:00 Neutrophils (Manual) 87 % (40-80) H 08/13/16 06:04 Lymphocytes 1 % (20-50) L 08/13/16 06:04 Monocytes 8 % (2-10) 08/13/16 06:04 Eosinophils 2 % (0-5) 08/11/16 06:55 Basophils 3 % (0-3) 08/04/16 08:33 Myelocytes 1 % 07/14/16 16:00 Hypochromia 1+ 07/20/16 23:30 Platelet Estimate ADEQUATE (NORMAL) 08/13/16 06:04 Platelet Morphology NORMAL (NORMAL) 08/13/16 06:04 Polychromasia 1+ 07/20/16 23:30 Anisocytosis 1+ 08/13/16 06:04 Microcytosis 1+ 07/14/16 16:00 RBC Morph Micro Appear ABNORMAL (NORMAL) 08/13/16 06:04 PT 16.1 SECONDS (9.5-11.5) H 08/13/16 06:04 INR 1.52 (0.5-1.4) H 08/13/16 06:04 PTT (Actin FS) 36.0 SECONDS (26.0-38.0) 08/13/16 06:04 Specimen Source Arterial 08/13/16 11:08 Sample Site Right Radial 08/13/16 11:08 pH 7.23 (7.35-7.45) L* 08/13/16 11:08 pCO2 50.0 mmHg (35.0-45.0) H 08/13/16 11:08 pO2 95.0 mmHg (80.0-100.0) 08/13/16 11:08 HCO3 20.9 mEq/L (20.0-26.0) 08/13/16 11:08 Base Excess -6.8 mEq/L (-3.0-3.0) L 08/13/16 11:08 O2 Saturation 96.0 % (92.0-100.0) 08/13/16 11:08 Estuardo Test PASS 08/13/16 11:08 Vent Rate 12 08/13/16 11:08 Inspired O2 30 08/13/16 11:08 Tidal Volume NA 08/12/16 14:50 PEEP NA 08/12/16 14:50 Pressure (ins/psv/peep) 6 08/13/16 11:08 Critical Value PW 08/13/16 11:08 Sodium 123 mEq/L (136-145) L 08/13/16 06:04 Potassium 4.3 mEq/L (3.5-5.1) 08/13/16 06:04 Chloride 93 mEq/L (98-107) L 08/13/16 06:04 Carbon Dioxide 22.0 mEq/L (21.0-31.0) 08/13/16 06:04 Anion Gap 12.3 (7.0-16.0) 08/13/16 06:04 BUN 57 mg/dL (7-25) H 08/13/16 06:04 Creatinine 5.2 mg/dL (0.7-1.3) H* 08/13/16 06:04 Est GFR ( Amer) 15.2 ml/min (>90) 08/13/16 06:04 Est GFR (Non-Af Amer) 12.6 ml/min 08/13/16 06:04 BUN/Creatinine Ratio 11.0 08/13/16 06:04 Glucose 246 mg/dL (70-105) H 08/13/16 06:04 POC Glucose 108 MG/DL (70 - 105) H 08/10/16 13:34 Hemoglobin A1c % 4.8 % (4.0-6.0) 08/13/16 06:04 Whole Bld Lactic Acid 1.54 mmol/L (0.60-1.99) 08/13/16 06:04 Calcium 8.9 mg/dL (8.6-10.3) 08/13/16 06:04 Phosphorus 5.5 mg/dL (2.5-5.0) H 07/19/16 09:50 Magnesium 1.9 mg/dL (1.9-2.7) 08/04/16 05:45 Iron 42 ug/dL (38-169) 06/28/16 04:38 TIBC 269 ug/dL (250-450) 06/28/16 04:38 Iron Saturation 16 % (15-55) 06/28/16 04:38 Unsaturated IBC 227 ug/dL (111-343) 06/28/16 04:38 Ferritin 150 ng/mL (30-400) 06/26/16 08:30 Total Bilirubin 1.5 mg/dL (0.3-1.0) H 08/12/16 05:19 Direct Bilirubin 0.70 mg/dL (0.0-0.2) H 06/28/16 04:38 GGTP 14 IU/L (0-65) 06/28/16 04:38 AST 43 U/L (13-39) H 08/12/16 05:19 ALT 21 U/L (7-52) 08/12/16 05:19 Alkaline Phosphatase 38 U/L (34-104) 08/12/16 05:19 Ammonia 73 umol/L (16-53) H 08/12/16 05:19 Troponin I < 0.01 ng/mL (0.01-0.05) L 06/22/16 19:33 B-Natriuretic Peptide 668.0 pg/mL (5.0-100.0) H 06/22/16 19:33 Total Protein 9.0 gm/dL (6.0-8.3) H 08/12/16 05:19 Albumin 3.2 gm/dL (4.2-5.5) L 08/12/16 05:19 Globulin 5.8 gm/dL 08/12/16 05:19 Albumin/Globulin Ratio 0.6 (1.0-1.8) L 08/12/16 05:19 Amylase 28 U/L (29-103) L 07/02/16 06:40 Lipase 31 U/L (11-82) 07/02/16 06:40 TSH 2.98 uIU/ml (0.34-5.60) 08/13/16 06:04 Urine Source CLEAN C 06/29/16 05:55 Urine Color YELLOW 06/29/16 05:55 Urine Clarity HAZY (CLEAR) 06/29/16 05:55 Urine pH 5.5 06/29/16 05:55 Ur Specific [place] 1.015 (1.005-1.030) 06/29/16 05:55 Urine Protein 30 mg/dL (NEGATIVE) H 06/29/16 05:55 Urine Glucose (UA) NEGATIVE mg/dL (NEGATIVE) 06/29/16 05:55 Urine Ketones NEGATIVE mg/dL (NEGATIVE) 06/29/16 05:55 Urine Blood NEGATIVE (NEGATIVE) 06/29/16 05:55 Urine Nitrate NEGATIVE (NEGATIVE) 06/29/16 05:55 Urine Bilirubin NEGATIVE (NEGATIVE) 06/29/16 05:55 Urine Urobilinogen 0.2 E.U./dL (0.2 - 1.0) 06/29/16 05:55 Ur Leukocyte Esterase TRACE (NEGATIVE) H 06/29/16 05:55 Urine RBC 0-2 /hpf (0-5) H 06/29/16 05:55 Urine WBC 6-10 /hpf (0-5) H 06/29/16 05:55 Ur Epithelial Cells FEW /lpf (FEW) 06/29/16 05:55 Urine Bacteria MANY /hpf (NONE SEEN) 06/29/16 05:55 Stool Occult Blood POSITIVE (NEGATIVE) 06/24/16 16:00 Gentamicin Trough ug/ml (0.2-2.0) 08/12/16 05:19 Random Vancomycin 13.4 ug/mL (5.0-40.0) 06/28/16 04:38 RPR NONREACTIVE (NONREACTIVE) 06/22/16 19:33 Hepatitis A IgM Ab Negative (Negative) 06/29/16 05:49 Hep Bs Antigen Negative (Negative) 06/29/16 05:49 Hep B Core IgM Ab Negative (Negative) 06/29/16 05:49 Hepatitis C Antibody >11.0 s/co ratio (0.0-0.9) H 06/29/16 05:49 Blood Type A POSITIVE 08/10/16 21:07 Antibody Screen NEGATIVE 08/10/16 21:07 Crossmatch See Detail 08/10/16 21:07 - Physical Exam Vitals and I&O: Vital Signs Temp 96.7 F 08/13/16 20:00 Pulse 114 08/13/16 23:15 Resp 22 08/13/16 22:50 BP 100/46 08/13/16 23:15 Pulse Ox 95 08/13/16 22:50 Intake & Output 08/13/16 08/13/16 08/14/16 06:59 18:59 06:59 Intake Total 948.387 2219 115.697 Output Total 1 Balance 353.833 5981 115.697 Intake: Intake, IV Amount 692.303 700 115.697 Meropenem 500 mg In 100 100 Sodium Chloride 0.9% 100 ml @ 100 mls/hr IV Q12H [facility] Rx#:[id number] Norepinephrine 8 mg In 392.303 115.697 Dextrose 5% 250 ml @ Per Protocol IV TITR PRN Rx#: [id number] Vancomycin HCl 2.5 gm In 500 Sodium Chloride 0.9% 500 ml @ 250 mls/hr IV 1000 ONE Rx#:[id number] metroNIDAZOLE 500mg/NS 200 100 100mL 500 mg In 100 ml @ 100 mls/hr IV Q8HR [facility] Rx #:[id number] Oral 50 350 Output: Stool 1 Other: # Voids 1 # Bowel Movements 1 Stool Characteristics Liquid Liquid Brown Brown Black Black Active Medications: Current Medications Acetaminophen (Tylenol) 650 mg PO Q6H PRN PRN Reason: temperature above 100F Stop: 09/28/16 16:14 Last Admin: 07/30/16 16:27 Dose: 650 mg Diphenhydramine HCl (Benadryl 50 Mg/Ml) 50 mg IM Q8HR PRN PRN Reason: Agitation Stop: 08/25/16 12:10 Last Admin: 08/13/16 21:28 Dose: 50 mg Diphenhydramine HCl (Benadryl 50 Mg/Ml) 25 mg IVP Q6HR PRN PRN Reason: itching Stop: 10/11/16 03:12 Last Admin: 08/12/16 22:24 Dose: 25 mg Docusate Sodium (Colace) 100 mg PO Q12HR [facility] Stop: 09/16/16 08:59 Last Admin: 08/13/16 20:21 Dose: 100 mg Haloperidol Lactate (Haldol) 5 mg IM Q8HR PRN PRN Reason: Agitation Stop: 08/25/16 12:10 Hydrocortisone Sodium Succinate (Solu-Cortef) 50 mg IVP Q8H [facility] Stop: 10/09/16 15:59 Last Admin: 08/13/16 23:10 Dose: 50 mg Norepinephrine Bitartrate 8 mg (/ Dextrose) 254 mls @ 0 mls/hr IV TITR PRN; Protocol; Per Protocol PRN Reason: BP MAINTENANCE (PER PROTOCOL) Stop: 10/09/16 13:28 Last Titration: 08/13/16 22:30 Dose: Infused Meropenem 500 mg/ Sodium (Chloride) 100 mls @ 100 mls/hr IV Q12H [facility] Stop: 10/09/16 13:59 Last Infusion: 08/13/16 14:27 Dose: Infused Phenylephrine HCl 10 mg/ (Sodium Chloride) 251 mls @ 0 mls/hr IV TITR [facility]QU[facility]; Titrate PRN Reason: Protocol Stop: 10/09/16 15:14 Last Titration: 08/12/16 15:15 Dose: Infused Metronidazole (Flagyl) 500 mg in 100 mls @ 100 mls/hr IV Q8HR [facility] Stop: 10/10/16 12:59 Last Admin: 08/13/16 20:20 Dose: 100 mls/hr Lactobacillus Rhamnosus (Culturelle) 1 each PO DAILY [facility] Stop: 10/12/16 08:59 Last Admin: 08/13/16 09:03 Dose: 1 each Lactulose (Cephulac) 20 gm PO Q8HR [facility] Stop: 09/16/16 04:59 Last Admin: 08/13/16 20:20 Dose: 20 gm Miscellaneous (Clinical Monitoring) 1 ea DAILY PRN PRN Reason: RENAL Stop: 10/06/16 08:17 Miscellaneous (Gentamicin Iv Per Pharmacy) 1 [facility] PRN PRN PRN Reason: PROTOCOL Stop: 10/09/16 15:09 Miscellaneous (Probiotic Screen) 1 [facility] PRN PRN PRN Reason: PROTOCOL Stop: 10/11/16 14:12 Miscellaneous (Vancomycin Iv Per Pharmacy) 1 ea PRN [facility] Stop: 10/12/16 01:29 Morphine Sulfate (Morphine) 2 mg IV Q4H PRN PRN Reason: SEVERE PAIN Stop: 09/23/16 12:59 Last Admin: 08/13/16 21:28 Dose: 2 mg General: no acute distress, other (obese) HEENT: atraumatic, normocephalic, PERRLA, EOMI Neck: supple, no thyromegaly, no lymphadenopathy Cardiovascular: S1S2, regular Lungs: clear to auscultation bilaterally, clear to percussion Abdomen: soft, no tender, no distended Extremities: no cyanosis, no clubbing, no edema Neurological: awake, alert, oriented Skin: intact - Procedures Procedures: Procedures Procedure Code Date ARTERY-VEIN NONAUTOGRAFT 13773 06/22/16 BLOOD TRANSFUSION SERVICE 42732 06/22/16 BYPASS L BRACH ART TO UP ARM VEIN W NONAUT SUB, OPEN [id number] 06/22/16 FLUOROSCOPY OF SUP VENA CAVA USING [facility] CONTRAST, GUIDANCE [id number] 06/22/16 INSERTION OF INFUSION DEV INTO SUP VENA CAVA, PERC APPROACH [id number] 06/22/[address] PLACE CATHETER IN VEIN 76291 06/22/16 TRANSFUSE NONAUT RED BLOOD CELLS IN PERIPH VEIN, [facility] [id number] 06/22/16 Infectious Disease Assmt/Plan - Problem List Patient Problems: All Active Problems Anemia (Acute) D64.9 ESRD (end stage renal disease) (Acute) ESRD (end stage renal disease) on dialysis (Acute) N18.6, Z99.2 ESRD (end stage renal disease) on dialysis (Acute) N18.6, Z99.2 HYPOTENSION (Acute) HYPOXEMIA (Acute) MEDICAL EVALUATION PER DR FRY (Acute) septic shock (Acute) - Assessment Assessment: 1. Septic shock. staph sepsis. likely line sepsis. MRSA sepsis 2. Pneumonia. 3. CKD 5 on HD. 4. Morbid obesity. 5. hep C. 6. Cellulitis of legs. improved. treated. 7. Lymphedema of legs. 8. CHF. 9. diarrhea suspect due to laxative. - Plan Plan: Continue vanco IV, and DC meropenem and flagyl.
[2016-08-14] MEDS: Morphine Sulfate 2 mg/mL 1mL Syr IV PRN ×5 (04:11→22:32)
--- NOTE | 2016-08-14 04:28 | Progress Notes ---
SUBJECTIVE: The patient was seen in his room lying on the bed, more awake. Per the patient he has had no appetite to eat and having body pain whenever he is being repositioned. The patient is currently on a BIPAP and also on Levophed drip. OBJECTIVE: HEENT: Head: Atraumatic and normocephalic. Eyes: Bilateral conjunctivae are clear for injections. CARDIOVASCULAR: S1 and S2 heard, irregularly. PULMONARY: Mild inspiratory wheezing noted. GASTROINTESTINAL: Soft and nontender without guarding. MUSCULOSKELETAL: Bilateral lower extremity edema. No clubbing noted. ASSESSMENT: 1. Sepsis. 2. End-stage renal disease, on hemodialysis. 3. Chronic atrial fibrillation. 4. Hypothyroidism. 5. Chronic anemia. 6. Bilateral lower extremity cellulitis. 7. Obesity. PLAN: We will try to titrate Levophed ____ and also we will monitor pulmonary status of the patient. We will keep the patient in ICU for the meantime. JOB# [id number]
[2016-08-14] MEDS: Hydrocortisone Sodium Succ 100 mg Vial IVP SCH ×2 (08:10→16:55)
[2016-08-14] MEDS: Lactobacillus Rhamnosus 10 Billion CFU Capsule PO SCH (08:11)
[2016-08-14 08:12] LABS: HEMATOCRIT 30.1 % (39.0-49.0); HEMOGLOBIN 10.2 gm/dL (13.2-17.3); MEAN CELL VOLUME 84.7 fl (80-99); MEAN CORPUSCULAR HEMOGLOBIN 28.7 pg (26.0-30.0); MEAN CORPUSCULAR HGB CONC 33.8 pg (28.0-36.0); MEAN PLATELET VOLUME 8.2 fl; PLATELET COUNT 134 Th/cmm (150-400); RED BLOOD COUNT 3.55 Mil/cmm (4.30-5.70); RED CELL DISTRIBUTION WIDTH 14.9 % (11.5-20.0)
[2016-08-14 08:28] LABS: WHITE BLOOD COUNT 12.7 Th/cmm (4.8-10.8)
[2016-08-14 08:32] LABS: INR 1.56 (0.5-1.4); PROTHROMBIN TIME (TEST) 16.6 SECONDS (9.5-11.5)
[2016-08-14 08:35] LABS: ALB/GLOB RATIO 0.6 (1.0-1.8); ANION GAP 13.7 (7.0-16.0); BILIRUBIN,TOTAL 1.1 mg/dL (0.3-1.0); BUN/CREATININE RATIO 11.7; CALCIUM SERUM 9.3 mg/dL (8.6-10.3); POTASSIUM SERUM 4.7 mEq/L (3.5-5.1)
--- NOTE | 2016-08-14 08:37 | General Progress Note ---
Subjective - Review of Systems Events since last encounter: 08/14/16 still on Levophed WBC slghtly down K -4.3 will hold off on Anton/permacath placement left Arm AV shunt patent by doppler but difficult to feel Objective - Results Result Diagrams: 08/14/16 07:40 08/13/16 06:04 Recent Labs: Laboratory Last Values WBC 12.7 Th/cmm (4.8-10.8) H D 08/14/16 07:40 RBC 3.55 Mil/cmm (4.30-5.70) L 08/14/16 07:40 Hgb 10.2 gm/dL (13.2-17.3) L 08/14/16 07:40 Hct 30.1 % (39.0-49.0) L 08/14/16 07:40 MCV 84.7 fl (80-99) 08/14/16 07:40 MCH 28.7 pg (26.0-30.0) 08/14/16 07:40 MCHC Differential 33.8 pg (28.0-36.0) 08/14/16 07:40 RDW 14.9 % (11.5-20.0) 08/14/16 07:40 Plt Count 134 Th/cmm (150-400) L 08/14/16 07:40 MPV 8.2 fl 08/14/16 07:40 Neutrophils % 56.8 % (40.0-80.0) 07/07/16 06:00 Band Neutrophils % 4 % (0-10) 08/13/16 06:04 Lymphocytes % 18.4 % (20.0-50.0) L 07/07/16 06:00 Monocytes % 13.8 % (2.0-10.0) H 07/07/16 06:00 Eosinophils % 11.0 % (0.0-5.0) H 07/07/16 06:00 Basophils % 0.0 % (0.0-2.0) 07/07/16 06:00 Neutrophils (Manual) 87 % (40-80) H 08/13/16 06:04 Lymphocytes 1 % (20-50) L 08/13/16 06:04 Monocytes 8 % (2-10) 08/13/16 06:04 Eosinophils 2 % (0-5) 08/11/16 06:55 Basophils 3 % (0-3) 08/04/16 08:33 Myelocytes 1 % 07/14/16 16:00 Hypochromia 1+ 07/20/16 23:30 Platelet Estimate ADEQUATE (NORMAL) 08/13/16 06:04 Platelet Morphology NORMAL (NORMAL) 08/13/16 06:04 Polychromasia 1+ 07/20/16 23:30 Anisocytosis 1+ 08/13/16 06:04 Microcytosis 1+ 07/14/16 16:00 RBC Morph Micro Appear ABNORMAL (NORMAL) 08/13/16 06:04 PT 16.1 SECONDS (9.5-11.5) H 08/13/16 06:04 INR 1.52 (0.5-1.4) H 08/13/16 06:04 PTT (Actin FS) 36.0 SECONDS (26.0-38.0) 08/13/16 06:04 Specimen Source Arterial 08/13/16 11:08 Sample Site Right Radial 08/13/16 11:08 pH 7.23 (7.35-7.45) L* 08/13/16 11:08 pCO2 50.0 mmHg (35.0-45.0) H 08/13/16 11:08 pO2 95.0 mmHg (80.0-100.0) 08/13/16 11:08 HCO3 20.9 mEq/L (20.0-26.0) 08/13/16 11:08 Base Excess -6.8 mEq/L (-3.0-3.0) L 08/13/16 11:08 O2 Saturation 96.0 % (92.0-100.0) 08/13/16 11:08 Estuardo Test PASS 08/13/16 11:08 Vent Rate 12 08/13/16 11:08 Inspired O2 30 08/13/16 11:08 Tidal Volume NA 08/12/16 14:50 PEEP NA 08/12/16 14:50 Pressure (ins/psv/peep) 6 08/13/16 11:08 Critical Value PW 08/13/16 11:08 Sodium 123 mEq/L (136-145) L 08/13/16 06:04 Potassium 4.3 mEq/L (3.5-5.1) 08/13/16 06:04 Chloride 93 mEq/L (98-107) L 08/13/16 06:04 Carbon Dioxide 22.0 mEq/L (21.0-31.0) 08/13/16 06:04 Anion Gap 12.3 (7.0-16.0) 08/13/16 06:04 BUN 57 mg/dL (7-25) H 08/13/16 06:04 Creatinine 5.2 mg/dL (0.7-1.3) H* 08/13/16 06:04 Est GFR ( Amer) 15.2 ml/min (>90) 08/13/16 06:04 Est GFR (Non-Af Amer) 12.6 ml/min 08/13/16 06:04 BUN/Creatinine Ratio 11.0 08/13/16 06:04 Glucose 246 mg/dL (70-105) H 08/13/16 06:04 POC Glucose 108 MG/DL (70 - 105) H 08/10/16 13:34 Hemoglobin A1c % 4.8 % (4.0-6.0) 08/13/16 06:04 Whole Bld Lactic Acid 1.54 mmol/L (0.60-1.99) 08/13/16 06:04 Calcium 8.9 mg/dL (8.6-10.3) 08/13/16 06:04 Phosphorus 5.5 mg/dL (2.5-5.0) H 07/19/16 09:50 Magnesium 1.9 mg/dL (1.9-2.7) 08/04/16 05:45 Iron 42 ug/dL (38-169) 06/28/16 04:38 TIBC 269 ug/dL (250-450) 06/28/16 04:38 Iron Saturation 16 % (15-55) 06/28/16 04:38 Unsaturated IBC 227 ug/dL (111-343) 06/28/16 04:38 Ferritin 150 ng/mL (30-400) 06/26/16 08:30 Total Bilirubin 1.5 mg/dL (0.3-1.0) H 08/12/16 05:19 Direct Bilirubin 0.70 mg/dL (0.0-0.2) H 06/28/16 04:38 GGTP 14 IU/L (0-65) 06/28/16 04:38 AST 43 U/L (13-39) H 08/12/16 05:19 ALT 21 U/L (7-52) 08/12/16 05:19 Alkaline Phosphatase 38 U/L (34-104) 08/12/16 05:19 Ammonia 73 umol/L (16-53) H 08/12/16 05:19 Troponin I < 0.01 ng/mL (0.01-0.05) L 06/22/16 19:33 B-Natriuretic Peptide 668.0 pg/mL (5.0-100.0) H 06/22/16 19:33 Total Protein 9.0 gm/dL (6.0-8.3) H 08/12/16 05:19 Albumin 3.2 gm/dL (4.2-5.5) L 08/12/16 05:19 Globulin 5.8 gm/dL 08/12/16 05:19 Albumin/Globulin Ratio 0.6 (1.0-1.8) L 08/12/16 05:19 Amylase 28 U/L (29-103) L 07/02/16 06:40 Lipase 31 U/L (11-82) 07/02/16 06:40 TSH 2.98 uIU/ml (0.34-5.60) 08/13/16 06:04 Urine Source CLEAN C 06/29/16 05:55 Urine Color YELLOW 06/29/16 05:55 Urine Clarity HAZY (CLEAR) 06/29/16 05:55 Urine pH 5.5 06/29/16 05:55 Ur Specific [place] 1.015 (1.005-1.030) 06/29/16 05:55 Urine Protein 30 mg/dL (NEGATIVE) H 06/29/16 05:55 Urine Glucose (UA) NEGATIVE mg/dL (NEGATIVE) 06/29/16 05:55 Urine Ketones NEGATIVE mg/dL (NEGATIVE) 06/29/16 05:55 Urine Blood NEGATIVE (NEGATIVE) 06/29/16 05:55 Urine Nitrate NEGATIVE (NEGATIVE) 06/29/16 05:55 Urine Bilirubin NEGATIVE (NEGATIVE) 06/29/16 05:55 Urine Urobilinogen 0.2 E.U./dL (0.2 - 1.0) 06/29/16 05:55 Ur Leukocyte Esterase TRACE (NEGATIVE) H 06/29/16 05:55 Urine RBC 0-2 /hpf (0-5) H 06/29/16 05:55 Urine WBC 6-10 /hpf (0-5) H 06/29/16 05:55 Ur Epithelial Cells FEW /lpf (FEW) 06/29/16 05:55 Urine Bacteria MANY /hpf (NONE SEEN) 06/29/16 05:55 Stool Occult Blood POSITIVE (NEGATIVE) 06/24/16 16:00 Gentamicin Trough ug/ml (0.2-2.0) 08/12/16 05:19 Random Vancomycin 13.4 ug/mL (5.0-40.0) 06/28/16 04:38 RPR NONREACTIVE (NONREACTIVE) 06/22/16 19:33 Hepatitis A IgM Ab Negative (Negative) 06/29/16 05:49 Hep Bs Antigen Negative (Negative) 06/29/16 05:49 Hep B Core IgM Ab Negative (Negative) 06/29/16 05:49 Hepatitis C Antibody >11.0 s/co ratio (0.0-0.9) H 06/29/16 05:49 Blood Type A POSITIVE 08/10/16 21:07 Antibody Screen NEGATIVE 08/10/16 21:07 Crossmatch See Detail 08/10/16 21:07 - Physical Exam Vitals and I&O: Vital Signs Temp 96.7 F 08/13/16 20:00 Pulse 125 08/14/16 07:58 Resp 16 08/14/16 07:58 BP 102/63 08/14/16 06:45 Pulse Ox 97 08/14/16 07:58 Intake & Output 08/13/16 08/14/16 08/14/16 18:59 06:59 18:59 Intake Total 1050 115.697 Output Total 1 Balance 1049 115.697 Intake: Intake, IV Amount 700 115.697 Meropenem 500 mg In 100 Sodium Chloride 0.9% 100 ml @ 100 mls/hr IV Q12H [facility] Rx#:[id number] Norepinephrine 8 mg In 115.697 Dextrose 5% 250 ml @ Per Protocol IV TITR PRN Rx#: [id number] Vancomycin HCl 2.5 gm In 500 Sodium Chloride 0.9% 500 ml @ 250 mls/hr IV 1000 ONE Rx#:[id number] metroNIDAZOLE 500mg/NS 100 100mL 500 mg In 100 ml @ 100 mls/hr IV Q8HR [facility] Rx #:[id number] Oral 350 Output: Stool 1 Other: Stool Characteristics Liquid Brown Black Active Medications: Current Medications Acetaminophen (Tylenol) 650 mg PO Q6H PRN PRN Reason: temperature above 100F Stop: 09/28/16 16:14 Last Admin: 07/30/16 16:27 Dose: 650 mg Diphenhydramine HCl (Benadryl 50 Mg/Ml) 50 mg IM Q8HR PRN PRN Reason: Agitation Stop: 08/25/16 12:10 Last Admin: 08/13/16 21:28 Dose: 50 mg Diphenhydramine HCl (Benadryl 50 Mg/Ml) 25 mg IVP Q6HR PRN PRN Reason: itching Stop: 10/11/16 03:12 Last Admin: 08/12/16 22:24 Dose: 25 mg Docusate Sodium (Colace) 100 mg PO Q12HR [facility] Stop: 09/16/16 08:59 Last Admin: 08/14/16 08:11 Dose: Not Given Haloperidol Lactate (Haldol) 5 mg IM Q8HR PRN PRN Reason: Agitation Stop: 08/25/16 12:10 Hydrocortisone Sodium Succinate (Solu-Cortef) 50 mg IVP Q8H [facility] Stop: 10/09/16 15:59 Last Admin: 08/14/16 08:10 Dose: 50 mg Norepinephrine Bitartrate 8 mg (/ Dextrose) 254 mls @ 0 mls/hr IV TITR PRN; Protocol; Per Protocol PRN Reason: BP MAINTENANCE (PER PROTOCOL) Stop: 10/09/16 13:28 Last Titration: 08/13/16 22:30 Dose: Infused Phenylephrine HCl 10 mg/ (Sodium Chloride) 251 mls @ 0 mls/hr IV TITR [facility]; Titrate PRN Reason: Protocol Stop: 10/09/16 15:14 Last Titration: 08/12/16 15:15 Dose: Infused Lactobacillus Rhamnosus (Culturelle) 1 each PO DAILY [facility] Stop: 10/12/16 08:59 Last Admin: 08/14/16 08:11 Dose: Not Given Lactulose (Cephulac) 20 gm PO Q8HR [facility] Stop: 09/16/16 04:59 Last Admin: 08/13/16 20:20 Dose: 20 gm Miscellaneous (Clinical Monitoring) 1 ea [facility] DAILY PRN PRN Reason: RENAL Stop: 10/06/16 08:17 Miscellaneous (Probiotic Screen) 1 ea PRN PRN PRN Reason: PROTOCOL Stop: 10/11/16 14:12 Miscellaneous (Vancomycin Iv Per Pharmacy) 1 ea MC PRN [facility] Stop: 10/12/16 01:29 Morphine Sulfate (Morphine) 2 mg IV Q4H PRN PRN Reason: SEVERE PAIN Stop: 09/23/16 12:59 Last Admin: 08/14/16 07:55 Dose: 2 mg - Procedures Procedures: Procedures Procedure Code Date ARTERY-VEIN NONAUTOGRAFT 87552 06/22/16 BLOOD TRANSFUSION SERVICE 90061 06/22/16 BYPASS L BRACH ART TO UP ARM VEIN W NONAUT SUB, OPEN [id number] 06/22/16 FLUOROSCOPY OF SUP VENA CAVA USING [facility] CONTRAST, GUIDANCE [id number] 06/22/16 INSERTION OF INFUSION DEV INTO SUP VENA CAVA, PERC APPROACH [id number] 06/22/[address] CATHETER IN VEIN 11857 06/22/16 TRANSFUSE NONAUT RED BLOOD CELLS IN PERIPH VEIN, PERC [id number] 06/22/16 Assessment/Plan - Problem List Patient Problems: All Active Problems Anemia (Acute) D64.9 ESRD (end stage renal disease) (Acute) ESRD (end stage renal disease) on dialysis (Acute) N18.6, Z99.2 ESRD (end stage renal disease) on dialysis (Acute) N18.6, Z99.2 HYPOTENSION (Acute) HYPOXEMIA (Acute) MEDICAL EVALUATION PER DR FRY (Acute) septic shock (Acute)
[2016-08-14 08:42] LABS: CREATININE - SERUM 5.8 mg/dL (0.7-1.3)
--- NOTE | 2016-08-14 08:50 | General Progress Note ---
Subjective - Review of Systems Service Date: 08/14/16 Events since last encounter: no distress Subjective: pt is sob on bipap had permacath done getting dialysis c/o weakness Objective - Results Result Diagrams: 08/14/16 07:40 08/14/16 07:40 Recent Labs: Laboratory Last Values WBC 12.7 Th/cmm (4.8-10.8) H D 08/14/16 07:40 RBC 3.55 Mil/cmm (4.30-5.70) L 08/14/16 07:40 Hgb 10.2 gm/dL (13.2-17.3) L 08/14/16 07:40 Hct 30.1 % (39.0-49.0) L 08/14/16 07:40 MCV 84.7 fl (80-99) 08/14/16 07:40 MCH 28.7 pg (26.0-30.0) 08/14/16 07:40 MCHC Differential 33.8 pg (28.0-36.0) 08/14/16 07:40 RDW 14.9 % (11.5-20.0) 08/14/16 07:40 Plt Count 134 Th/cmm (150-400) L 08/14/16 07:40 MPV 8.2 fl 08/14/16 07:40 Neutrophils % 56.8 % (40.0-80.0) 07/07/16 06:00 Band Neutrophils % 4 % (0-10) 08/13/16 06:04 Lymphocytes % 18.4 % (20.0-50.0) L 07/07/16 06:00 Monocytes % 13.8 % (2.0-10.0) H 07/07/16 06:00 Eosinophils % 11.0 % (0.0-5.0) H 07/07/16 06:00 Basophils % 0.0 % (0.0-2.0) 07/07/16 06:00 Neutrophils (Manual) 87 % (40-80) H 08/13/16 06:04 Lymphocytes 1 % (20-50) L 08/13/16 06:04 Monocytes 8 % (2-10) 08/13/16 06:04 Eosinophils 2 % (0-5) 08/11/16 06:55 Basophils 3 % (0-3) 08/04/16 08:33 Myelocytes 1 % 07/14/16 16:00 Hypochromia 1+ 07/20/16 23:30 Platelet Estimate ADEQUATE (NORMAL) 08/13/16 06:04 Platelet Morphology NORMAL (NORMAL) 08/13/16 06:04 Polychromasia 1+ 07/20/16 23:30 Anisocytosis 1+ 08/13/16 06:04 Microcytosis 1+ 07/14/16 16:00 RBC Morph Micro Appear ABNORMAL (NORMAL) 08/13/16 06:04 PT 16.1 SECONDS (9.5-11.5) H 08/13/16 06:04 INR 1.52 (0.5-1.4) H 08/13/16 06:04 PTT (Actin FS) 36.0 SECONDS (26.0-38.0) 08/13/16 06:04 Specimen Source Arterial 08/13/16 11:08 Sample Site Right Radial 08/13/16 11:08 pH 7.23 (7.35-7.45) L* 08/13/16 11:08 pCO2 50.0 mmHg (35.0-45.0) H 08/13/16 11:08 pO2 95.0 mmHg (80.0-100.0) 08/13/16 11:08 HCO3 20.9 mEq/L (20.0-26.0) 08/13/16 11:08 Base Excess -6.8 mEq/L (-3.0-3.0) L 08/13/16 11:08 O2 Saturation 96.0 % (92.0-100.0) 08/13/16 11:08 Estuardo Test PASS 08/13/16 11:08 Vent Rate 12 08/13/16 11:08 Inspired O2 30 08/13/16 11:08 Tidal Volume NA 08/12/16 14:50 PEEP NA 08/12/16 14:50 Pressure (ins/psv/peep) 6 08/13/16 11:08 Critical Value PW 08/13/16 11:08 Sodium 125 mEq/L (136-145) L 08/14/16 07:40 Potassium 4.7 mEq/L (3.5-5.1) 08/14/16 07:40 Chloride 95 mEq/L (98-107) L 08/14/16 07:40 Carbon Dioxide 21.0 mEq/L (21.0-31.0) 08/14/16 07:40 Anion Gap 13.7 (7.0-16.0) 08/14/16 07:40 BUN 68 mg/dL (7-25) H 08/14/16 07:40 Creatinine 5.8 mg/dL (0.7-1.3) H* 08/14/16 07:40 Est GFR ( Amer) 13.4 ml/min (>90) 08/14/16 07:40 Est GFR (Non-Af Amer) 11.1 ml/min 08/14/16 07:40 BUN/Creatinine Ratio 11.7 08/14/16 07:40 Glucose 113 mg/dL (70-105) H 08/14/16 07:40 POC Glucose 108 MG/DL (70 - 105) H 08/10/16 13:34 Hemoglobin A1c % 4.8 % (4.0-6.0) 08/13/16 06:04 Whole Bld Lactic Acid 1.54 mmol/L (0.60-1.99) 08/13/16 06:04 Calcium 9.3 mg/dL (8.6-10.3) 08/14/16 07:40 Phosphorus 5.5 mg/dL (2.5-5.0) H 07/19/16 09:50 Magnesium 1.9 mg/dL (1.9-2.7) 08/04/16 05:45 Iron 42 ug/dL (38-169) 06/28/16 04:38 TIBC 269 ug/dL (250-450) 06/28/16 04:38 Iron Saturation 16 % (15-55) 06/28/16 04:38 Unsaturated IBC 227 ug/dL (111-343) 06/28/16 04:38 Ferritin 150 ng/mL (30-400) 06/26/16 08:30 Total Bilirubin 1.1 mg/dL (0.3-1.0) H 08/14/16 07:40 Direct Bilirubin 0.70 mg/dL (0.0-0.2) H 06/28/16 04:38 GGTP 14 IU/L (0-65) 06/28/16 04:38 AST 27 U/L (13-39) 08/14/16 07:40 ALT 19 U/L (7-52) 08/14/16 07:40 Alkaline Phosphatase 37 U/L (34-104) 08/14/16 07:40 Ammonia 73 umol/L (16-53) H 08/12/16 05:19 Troponin I < 0.01 ng/mL (0.01-0.05) L 06/22/16 19:33 B-Natriuretic Peptide 668.0 pg/mL (5.0-100.0) H 06/22/16 19:33 Total Protein 8.4 gm/dL (6.0-8.3) H 08/14/16 07:40 Albumin 3.0 gm/dL (4.2-5.5) L 08/14/16 07:40 Globulin 5.4 gm/dL 08/14/16 07:40 Albumin/Globulin Ratio 0.6 (1.0-1.8) L 08/14/16 07:40 Amylase 28 U/L (29-103) L 07/02/16 06:40 Lipase 31 U/L (11-82) 07/02/16 06:40 TSH 2.98 uIU/ml (0.34-5.60) 08/13/16 06:04 Urine Source CLEAN C 06/29/16 05:55 Urine Color YELLOW 06/29/16 05:55 Urine Clarity HAZY (CLEAR) 06/29/16 05:55 Urine pH 5.5 06/29/16 05:55 Ur Specific [place] 1.015 (1.005-1.030) 06/29/16 05:55 Urine Protein 30 mg/dL (NEGATIVE) H 06/29/16 05:55 Urine Glucose (UA) NEGATIVE mg/dL (NEGATIVE) 06/29/16 05:55 Urine Ketones NEGATIVE mg/dL (NEGATIVE) 06/29/16 05:55 Urine Blood NEGATIVE (NEGATIVE) 06/29/16 05:55 Urine Nitrate NEGATIVE (NEGATIVE) 06/29/16 05:55 Urine Bilirubin NEGATIVE (NEGATIVE) 06/29/16 05:55 Urine Urobilinogen 0.2 E.U./dL (0.2 - 1.0) 06/29/16 05:55 Ur Leukocyte Esterase TRACE (NEGATIVE) H 06/29/16 05:55 Urine RBC 0-2 /hpf (0-5) H 06/29/16 05:55 Urine WBC 6-10 /hpf (0-5) H 06/29/16 05:55 Ur Epithelial Cells FEW /lpf (FEW) 06/29/16 05:55 Urine Bacteria MANY /hpf (NONE SEEN) 06/29/16 05:55 Stool Occult Blood POSITIVE (NEGATIVE) 06/24/16 16:00 Gentamicin Trough ug/ml (0.2-2.0) 08/12/16 05:19 Random Vancomycin 16.7 ug/mL (5.0-40.0) 08/14/16 07:40 RPR NONREACTIVE (NONREACTIVE) 06/22/16 19:33 Hepatitis A IgM Ab Negative (Negative) 06/29/16 05:49 Hep Bs Antigen Negative (Negative) 06/29/16 05:49 Hep B Core IgM Ab Negative (Negative) 06/29/16 05:49 Hepatitis C Antibody >11.0 s/co ratio (0.0-0.9) H 06/29/16 05:49 Blood Type A POSITIVE 08/10/16 21:07 Antibody Screen NEGATIVE 08/10/16 21:07 Crossmatch See Detail 08/10/16 21:07 - Physical Exam Vitals and I&O: Vital Signs Temp 96.7 F 08/13/16 20:00 Pulse 125 08/14/16 07:58 Resp 16 08/14/16 07:58 BP 102/63 08/14/16 06:45 Pulse Ox 97 08/14/16 07:58 Intake & Output 08/13/16 08/14/16 08/14/16 18:59 06:59 18:59 Intake Total 1050 115.697 Output Total 1 Balance 1049 115.697 Intake: Intake, IV Amount 700 115.697 Meropenem 500 mg In 100 Sodium Chloride 0.9% 100 ml @ 100 mls/hr IV Q12H [facility] Rx#:[id number] Norepinephrine 8 mg In 115.697 Dextrose 5% 250 ml @ Per Protocol IV TITR PRN Rx#: [id number] Vancomycin HCl 2.5 gm In 500 Sodium Chloride 0.9% 500 ml @ 250 mls/hr IV 1000 ONE Rx#:[id number] metroNIDAZOLE 500mg/NS 100 100mL 500 mg In 100 ml @ 100 mls/hr IV Q8HR [facility] Rx #:[id number] Oral 350 Output: Stool 1 Other: Stool Characteristics Liquid Brown Black Active Medications: Current Medications Acetaminophen (Tylenol) 650 mg PO Q6H PRN PRN Reason: temperature above 100F Stop: 09/28/16 16:14 Last Admin: 07/30/16 16:27 Dose: 650 mg Diphenhydramine HCl (Benadryl 50 Mg/Ml) 50 mg IM Q8HR PRN PRN Reason: Agitation Stop: 08/25/16 12:10 Last Admin: 08/13/16 21:28 Dose: 50 mg Diphenhydramine HCl (Benadryl 50 Mg/Ml) 25 mg IVP Q6HR PRN PRN Reason: itching Stop: 10/11/16 03:12 Last Admin: 08/12/16 22:24 Dose: 25 mg Docusate Sodium (Colace) 100 mg PO Q12HR [facility] Stop: 09/16/16 08:59 Last Admin: 08/14/16 08:11 Dose: Not Given Haloperidol Lactate (Haldol) 5 mg IM Q8HR PRN PRN Reason: Agitation Stop: 08/25/16 12:10 Hydrocortisone Sodium Succinate (Solu-Cortef) 50 mg IVP Q8H [facility] Stop: 10/09/16 15:59 Last Admin: 08/14/16 08:10 Dose: 50 mg Norepinephrine Bitartrate 8 mg (/ Dextrose) 254 mls @ 0 mls/hr IV TITR PRN; Protocol; Per Protocol PRN Reason: BP MAINTENANCE (PER PROTOCOL) Stop: 10/09/16 13:28 Last Titration: 08/13/16 22:30 Dose: Infused Phenylephrine HCl 10 mg/ (Sodium Chloride) 251 mls @ 0 mls/hr IV TITR [facility]; Titrate PRN Reason: Protocol Stop: 10/09/16 15:14 Last Titration: 08/12/16 15:15 Dose: Infused Lactobacillus Rhamnosus (Culturelle) 1 each PO DAILY [facility] Stop: 10/12/16 08:59 Last Admin: 08/14/16 08:11 Dose: Not Given Lactulose (Cephulac) 20 gm PO Q8HR [facility] Stop: 09/16/16 04:59 Last Admin: 08/13/16 20:20 Dose: 20 gm Miscellaneous (Clinical Monitoring) 1 ea MC DAILY PRN PRN Reason: RENAL Stop: 10/06/16 08:17 Miscellaneous (Probiotic Screen) 1 ea PRN PRN PRN Reason: PROTOCOL Stop: 10/11/16 14:12 Miscellaneous (Vancomycin Iv Per Pharmacy) 1 ea PRN [facility] Stop: 10/12/16 01:29 Morphine Sulfate (Morphine) 2 mg IV Q4H PRN PRN Reason: SEVERE PAIN Stop: 09/23/16 12:59 Last Admin: 08/14/16 07:55 Dose: 2 mg General: No acute distress, Other (acute sob) HEENT: Atraumatic Neck: Supple Cardiovascular: Regular rate Abdomen: Bowel sounds - Procedures Procedures: Procedures Procedure Code Date ARTERY-VEIN NONAUTOGRAFT 82496 06/22/16 BLOOD TRANSFUSION SERVICE 66685 06/22/16 BYPASS L BRACH ART TO UP ARM VEIN W NONAUT SUB, OPEN [id number] 06/22/16 FLUOROSCOPY OF SUP VENA CAVA USING [facility] CONTRAST, GUIDANCE [id number] 06/22/16 INSERTION OF INFUSION DEV INTO SUP VENA CAVA, PERC APPROACH [id number] 06/22/16 PLACE CATHETER IN VEIN 83774 06/22/16 TRANSFUSE NONAUT RED BLOOD CELLS IN PERIPH VEIN, PERC [id number] 06/22/16 Assessment/Plan - Problem List Patient Problems: All Active Problems Anemia (Acute) D64.9 ESRD (end stage renal disease) (Acute) ESRD (end stage renal disease) on dialysis (Acute) N18.6, Z99.2 ESRD (end stage renal disease) on dialysis (Acute) N18.6, Z99.2 HYPOTENSION (Acute) HYPOXEMIA (Acute) MEDICAL EVALUATION PER DR FRY (Acute) septic shock (Acute) - Assessment Assessment: 1. Cellulitis of legs. 2. Lymphedema of legs. 3. CKD 5 on HD. 4. Morbid obesity. 5 anemia 6 gi bleed 7 psychosis - Plan Plan: dialysis iv antibiotics ltac eval
[2016-08-14 09:51] LABS: BAND NEUTROPHILE 8 % (0-10); METAMYELOCYTE 1 % (0-0); NEUTROPHILS 80 % (40-80); TOTAL CELLS COUNTED 100
[2016-08-14 09:52] LABS: ANISOCYTOSIS 1+; PLATELET ESTIMATE DECREASED PLATELETS (NORMAL); PLATELET MORPHOLOGY NORMAL (NORMAL)
[2016-08-14 10:53] LABS: ABG SOURCE Arterial; ALLEN TEST PASS; BE(B) -7.4 mEq/L (-3.0-3.0); CRITICAL VALUES REPORTED BY PW; FIO2 44; HCO3 19.1 mEq/L (20.0-26.0)
[2016-08-14 10:54] LABS: pH 7.14 (7.35-7.45)
[2016-08-14] MEDS ORDERED: Vancomycin HCl 2.5 GM in Sodium Chloride 0.9% 500 ML IV ONE (11:00)
[2016-08-14] MEDS: Lactulose 10 Gm/15 mL 30mL UDC PO SCH ×2 (13:06→22:33)
--- NOTE | 2016-08-14 14:15 | General Progress Note ---
Subjective - Review of Systems Service Date: 08/14/16 Subjective: sedated, back on BIPAP Objective - Results Result Diagrams: 08/14/16 07:40 08/14/16 07:40 Recent Labs: Laboratory Last Values WBC 12.7 Th/cmm (4.8-10.8) H D 08/14/16 07:40 RBC 3.55 Mil/cmm (4.30-5.70) L 08/14/16 07:40 Hgb 10.2 gm/dL (13.2-17.3) L 08/14/16 07:40 Hct 30.1 % (39.0-49.0) L 08/14/16 07:40 MCV 84.7 fl (80-99) 08/14/16 07:40 MCH 28.7 pg (26.0-30.0) 08/14/16 07:40 MCHC Differential 33.8 pg (28.0-36.0) 08/14/16 07:40 RDW 14.9 % (11.5-20.0) 08/14/16 07:40 Plt Count 134 Th/cmm (150-400) L 08/14/16 07:40 MPV 8.2 fl 08/14/16 07:40 Neutrophils % 56.8 % (40.0-80.0) 07/07/16 06:00 Band Neutrophils % 8 % (0-10) 08/14/16 07:40 Lymphocytes % 18.4 % (20.0-50.0) L 07/07/16 06:00 Monocytes % 13.8 % (2.0-10.0) H 07/07/16 06:00 Eosinophils % 11.0 % (0.0-5.0) H 07/07/16 06:00 Basophils % 0.0 % (0.0-2.0) 07/07/16 06:00 Neutrophils (Manual) 80 % (40-80) 08/14/16 07:40 Lymphocytes 5 % (20-50) L 08/14/16 07:40 Monocytes 6 % (2-10) 08/14/16 07:40 Eosinophils 2 % (0-5) 08/11/16 06:55 Basophils 3 % (0-3) 08/04/16 08:33 Metamyelocytes 1 % (0-0) H 08/14/16 07:40 Myelocytes 1 % 07/14/16 16:00 Hypochromia 1+ 07/20/16 23:30 Platelet Estimate DECREASED PLATELETS (NORMAL) 08/14/16 07:40 Platelet Morphology NORMAL (NORMAL) 08/14/16 07:40 Polychromasia 1+ 07/20/16 23:30 Anisocytosis 1+ 08/14/16 07:40 Microcytosis 1+ 07/14/16 16:00 RBC Morph Micro Appear ABNORMAL (NORMAL) 08/14/16 07:40 PT 16.6 SECONDS (9.5-11.5) H 08/14/16 07:40 INR 1.56 (0.5-1.4) H 08/14/16 07:40 PTT (Actin FS) 37.4 SECONDS (26.0-38.0) 08/14/16 07:40 Specimen Source Arterial 08/14/16 10:28 Sample Site Right Radial 08/14/16 10:28 pH 7.14 (7.35-7.45) L* 08/14/16 10:28 pCO2 66.0 mmHg (35.0-45.0) H* 08/14/16 10:28 pO2 99.0 mmHg (80.0-100.0) 08/14/16 10:28 HCO3 19.1 mEq/L (20.0-26.0) L 08/14/16 10:28 Base Excess -7.4 mEq/L (-3.0-3.0) L 08/14/16 10:28 O2 Saturation 95.0 % (92.0-100.0) 08/14/16 10:28 Estuardo Test PASS 08/14/16 10:28 Vent Rate 12 08/13/16 11:08 Inspired O2 44 08/14/16 10:28 Tidal Volume NA 08/12/16 14:50 PEEP NA 08/12/16 14:50 Pressure (ins/psv/peep) 6 08/13/16 11:08 Critical Value PW 08/14/16 10:28 Sodium 125 mEq/L (136-145) L 08/14/16 07:40 Potassium 4.7 mEq/L (3.5-5.1) 08/14/16 07:40 Chloride 95 mEq/L (98-107) L 08/14/16 07:40 Carbon Dioxide 21.0 mEq/L (21.0-31.0) 08/14/16 07:40 Anion Gap 13.7 (7.0-16.0) 08/14/16 07:40 BUN 68 mg/dL (7-25) H 08/14/16 07:40 Creatinine 5.8 mg/dL (0.7-1.3) H* 08/14/16 07:40 Est GFR ( Amer) 13.4 ml/min (>90) 08/14/16 07:40 Est GFR (Non-Af Amer) 11.1 ml/min 08/14/16 07:40 BUN/Creatinine Ratio 11.7 08/14/16 07:40 Glucose 113 mg/dL (70-105) H 08/14/16 07:40 POC Glucose 108 MG/DL (70 - 105) H 08/10/16 13:34 Hemoglobin A1c % 4.8 % (4.0-6.0) 08/13/16 06:04 Whole Bld Lactic Acid 1.54 mmol/L (0.60-1.99) 08/13/16 06:04 Calcium 9.3 mg/dL (8.6-10.3) 08/14/16 07:40 Phosphorus 5.5 mg/dL (2.5-5.0) H 07/19/16 09:50 Magnesium 1.9 mg/dL (1.9-2.7) 08/04/16 05:45 Iron 42 ug/dL (38-169) 06/28/16 04:38 TIBC 269 ug/dL (250-450) 06/28/16 04:38 Iron Saturation 16 % (15-55) 06/28/16 04:38 Unsaturated IBC 227 ug/dL (111-343) 06/28/16 04:38 Ferritin 150 ng/mL (30-400) 06/26/16 08:30 Total Bilirubin 1.1 mg/dL (0.3-1.0) H 08/14/16 07:40 Direct Bilirubin 0.70 mg/dL (0.0-0.2) H 06/28/16 04:38 GGTP 14 IU/L (0-65) 06/28/16 04:38 AST 27 U/L (13-39) 08/14/16 07:40 ALT 19 U/L (7-52) 08/14/16 07:40 Alkaline Phosphatase 37 U/L (34-104) 08/14/16 07:40 Ammonia 73 umol/L (16-53) H 08/12/16 05:19 Troponin I < 0.01 ng/mL (0.01-0.05) L 06/22/16 19:33 B-Natriuretic Peptide 668.0 pg/mL (5.0-100.0) H 06/22/16 19:33 Total Protein 8.4 gm/dL (6.0-8.3) H 08/14/16 07:40 Albumin 3.0 gm/dL (4.2-5.5) L 08/14/16 07:40 Globulin 5.4 gm/dL 08/14/16 07:40 Albumin/Globulin Ratio 0.6 (1.0-1.8) L 08/14/16 07:40 Amylase 28 U/L (29-103) L 07/02/16 06:40 Lipase 31 U/L (11-82) 07/02/16 06:40 TSH 2.98 uIU/ml (0.34-5.60) 08/13/16 06:04 Urine Source CLEAN C 06/29/16 05:55 Urine Color YELLOW 06/29/16 05:55 Urine Clarity HAZY (CLEAR) 06/29/16 05:55 Urine pH 5.5 06/29/16 05:55 Ur Specific [place] 1.015 (1.005-1.030) 06/29/16 05:55 Urine Protein 30 mg/dL (NEGATIVE) H 06/29/16 05:55 Urine Glucose (UA) NEGATIVE mg/dL (NEGATIVE) 06/29/16 05:55 Urine Ketones NEGATIVE mg/dL (NEGATIVE) 06/29/16 05:55 Urine Blood NEGATIVE (NEGATIVE) 06/29/16 05:55 Urine Nitrate NEGATIVE (NEGATIVE) 06/29/16 05:55 Urine Bilirubin NEGATIVE (NEGATIVE) 06/29/16 05:55 Urine Urobilinogen 0.2 E.U./dL (0.2 - 1.0) 06/29/16 05:55 Ur Leukocyte Esterase TRACE (NEGATIVE) H 06/29/16 05:55 Urine RBC 0-2 /hpf (0-5) H 06/29/16 05:55 Urine WBC 6-10 /hpf (0-5) H 06/29/16 05:55 Ur Epithelial Cells FEW /lpf (FEW) 06/29/16 05:55 Urine Bacteria MANY /hpf (NONE SEEN) 06/29/16 05:55 Stool Occult Blood POSITIVE (NEGATIVE) 06/24/16 16:00 Gentamicin Trough ug/ml (0.2-2.0) 08/12/16 05:19 Random Vancomycin 16.7 ug/mL (5.0-40.0) 08/14/16 07:40 RPR NONREACTIVE (NONREACTIVE) 06/22/16 19:33 Hepatitis A IgM Ab Negative (Negative) 06/29/16 05:49 Hep Bs Antigen Negative (Negative) 06/29/16 05:49 Hep B Core IgM Ab Negative (Negative) 06/29/16 05:49 Hepatitis C Antibody >11.0 s/co ratio (0.0-0.9) H 06/29/16 05:49 Blood Type A POSITIVE 08/10/16 21:07 Antibody Screen NEGATIVE 08/10/16 21:07 Crossmatch See Detail 08/10/16 21:07 - Physical Exam Vitals and I&O: Vital Signs Temp 97.3 F 08/14/16 12:56 Pulse 107 08/14/16 12:56 Resp 14 08/14/16 13:34 BP 113/84 08/14/16 12:56 Pulse Ox 100 08/14/16 13:34 Intake & Output 08/13/16 08/14/16 08/14/16 18:59 06:59 18:59 Intake Total 1050 115.697 Output Total 1 Balance 1049 115.697 Intake: Intake, IV Amount 700 115.697 Meropenem 500 mg In 100 Sodium Chloride 0.9% 100 ml @ 100 mls/hr IV Q12H [facility] Rx#:[id number] Norepinephrine 8 mg In 115.697 Dextrose 5% 250 ml @ Per Protocol IV TITR PRN Rx#: [id number] Vancomycin HCl 2.5 gm In 500 Sodium Chloride 0.9% 500 ml @ 250 mls/hr IV 1000 ONE Rx#:[id number] metroNIDAZOLE 500mg/NS 100 100mL 500 mg In 100 ml @ 100 mls/hr IV Q8HR [facility] Rx #:[id number] Oral 350 Output: Stool 1 Other: Stool Characteristics Liquid Brown Black Active Medications: Current Medications Acetaminophen (Tylenol) 650 mg PO Q6H PRN PRN Reason: temperature above 100F Stop: 09/28/16 16:14 Last Admin: 07/30/16 16:27 Dose: 650 mg Diphenhydramine HCl (Benadryl 50 Mg/Ml) 50 mg IM Q8HR PRN PRN Reason: Agitation Stop: 08/25/16 12:10 Last Admin: 08/14/16 13:05 Dose: 50 mg Diphenhydramine HCl (Benadryl 50 Mg/Ml) 25 mg IVP Q6HR PRN PRN Reason: itching Stop: 10/11/16 03:12 Last Admin: 08/14/16 11:25 Dose: 25 mg Docusate Sodium (Colace) 100 mg PO Q12HR [facility] Stop: 09/16/16 08:59 Last Admin: 08/14/16 08:11 Dose: Not Given Haloperidol Lactate (Haldol) 5 mg IM Q8HR PRN PRN Reason: Agitation Stop: 08/25/16 12:10 Last Admin: 08/14/16 13:15 Dose: 5 mg Hydrocortisone Sodium Succinate (Solu-Cortef) 50 mg IVP Q8H [facility] Stop: 10/09/16 15:59 Last Admin: 08/14/16 08:10 Dose: 50 mg Norepinephrine Bitartrate 8 mg (/ Dextrose) 254 mls @ 0 mls/hr IV TITR PRN; Protocol; Per Protocol PRN Reason: BP MAINTENANCE (PER PROTOCOL) Stop: 10/09/16 13:28 Last Titration: 08/13/16 22:30 Dose: Infused Phenylephrine HCl 10 mg/ (Sodium Chloride) 251 mls @ 0 mls/hr IV TITR [facility]; Titrate PRN Reason: Protocol Stop: 10/09/16 15:14 Last Titration: 08/12/16 15:15 Dose: Infused Lactobacillus Rhamnosus (Culturelle) 1 each PO DAILY [facility] Stop: 10/12/16 08:59 Last Admin: 08/14/16 08:11 Dose: Not Given Lactulose (Cephulac) 20 gm PO Q8HR [facility] Stop: 09/16/16 04:59 Last Admin: 08/14/16 13:06 Dose: Not Given Miscellaneous (Clinical Monitoring) 1 ea MC DAILY PRN PRN Reason: RENAL Stop: 10/06/16 08:17 Miscellaneous (Probiotic Screen) 1 ea MC PRN PRN PRN Reason: PROTOCOL Stop: 10/11/16 14:12 Miscellaneous (Vancomycin Iv Per Pharmacy) 1 ea MC PRN [facility] Stop: 10/12/16 01:29 Morphine Sulfate (Morphine) 2 mg IV Q4H PRN PRN Reason: SEVERE PAIN Stop: 09/23/16 12:59 Last Admin: 08/14/16 13:25 Dose: 2 mg Sodium Bicarbonate (Sodium Bicarb) 50 meq IVP BID [facility] Stop: 10/13/16 16:59 General: Alert, No acute distress HEENT: Atraumatic, Mucous membr. moist/pink Neck: Supple, +2 carotid pulse wo bruit Cardiovascular: Regular rate, Normal S1, Normal S2 (few rhonchi) Lungs: Other Abdomen: Bowel sounds, Soft Extremities: Edema ((+) 3 edema) Neurological: Sensation intact Skin: no Rash - Procedures Procedures: Procedures Procedure Code Date ARTERY-VEIN NONAUTOGRAFT 46064 06/22/16 BLOOD TRANSFUSION SERVICE 17144 06/22/16 BYPASS L BRACH ART TO UP ARM VEIN W NONAUT SUB, OPEN [id number] 06/22/16 FLUOROSCOPY OF SUP VENA CAVA USING [facility] CONTRAST, GUIDANCE [id number] 06/22/16 INSERTION OF INFUSION DEV INTO SUP VENA CAVA, PERC APPROACH [id number] 06/22/[address] PL[address] CATHETER IN VEIN 18598 06/22/16 TRANSFUSE NONAUT RED BLOOD CELLS IN PERIPH VEIN, PERC [id number] 06/22/16 Assessment/Plan - Problem List Patient Problems: All Active Problems Anemia (Acute) D64.9 ESRD (end stage renal disease) (Acute) ESRD (end stage renal disease) on dialysis (Acute) N18.6, Z99.2 ESRD (end stage renal disease) on dialysis (Acute) N18.6, Z99.2 HYPOTENSION (Acute) HYPOXEMIA (Acute) MEDICAL EVALUATION PER DR FRY (Acute) septic shock (Acute) - Assessment Assessment: septic shock (better) esrd on hd persistent cellulitis b/l lower ext acute on chronic anemia possible gi bleed ohs chronic a. fib hypothyroid anasarca functional quadriplegia chronic venous stasis dermatitis acute decomp psychosis s/p left avg G (+) cocci in clusters septicemia - Plan Plan: Lab - Result Diagrams 07/19/16 09:50 Lab - Result Diagrams 07/22/16 05:21 Lab - Result Diagrams 07/24/16 05:00 Lab - Result Diagrams Lab - Result Diagrams 08/04/16 08:33 Lab - Result Diagrams 08/05/16 05:00 08/04/16 05:45 08/04/16 05:45 07/28/16 05:30 07/28/16 05:30 07/24/16 05:00 07/20/16 05:50 07/19/16 09:50 latest hgb/hct were 10.2/30.1 developed septic shock, off pressors culture grew G (+) cocci, WBC down 12.7, awaiting perma cath continue ABx transfuse as necessary f/u electrolytes, cbc Lab - Result Diagrams 07/19/16 09:50 07/20/16 05:50 Lab - Result Diagrams 07/21/16 06:16 07/20/16 05:50 Lab - Result Diagrams 07/26/16 11:05 07/24/16 05:00 Lab - Result Diagrams 07/29/16 05:55 07/28/16 05:30 Lab - Result Diagrams 08/12/16 05:19 08/12/16 05:19
--- NOTE | 2016-08-14 14:19 | Infectious Disease Prog Note ---
Infectious Disease Subjective - Review of Systems Service Date: 08/14/16 Subjective: Patient went into septic shock, hypotensive . on levophed low dose. Overall, patient is doing well. Infectious Disease Objective - Results Result Diagrams: 08/14/16 07:40 08/14/16 07:40 Recent Labs: Laboratory Last Values WBC 12.7 Th/cmm (4.8-10.8) H D 08/14/16 07:40 RBC 3.55 Mil/cmm (4.30-5.70) L 08/14/16 07:40 Hgb 10.2 gm/dL (13.2-17.3) L 08/14/16 07:40 Hct 30.1 % (39.0-49.0) L 08/14/16 07:40 MCV 84.7 fl (80-99) 08/14/16 07:40 MCH 28.7 pg (26.0-30.0) 08/14/16 07:40 MCHC Differential 33.8 pg (28.0-36.0) 08/14/16 07:40 RDW 14.9 % (11.5-20.0) 08/14/16 07:40 Plt Count 134 Th/cmm (150-400) L 08/14/16 07:40 MPV 8.2 fl 08/14/16 07:40 Neutrophils % 56.8 % (40.0-80.0) 07/07/16 06:00 Band Neutrophils % 8 % (0-10) 08/14/16 07:40 Lymphocytes % 18.4 % (20.0-50.0) L 07/07/16 06:00 Monocytes % 13.8 % (2.0-10.0) H 07/07/16 06:00 Eosinophils % 11.0 % (0.0-5.0) H 07/07/16 06:00 Basophils % 0.0 % (0.0-2.0) 07/07/16 06:00 Neutrophils (Manual) 80 % (40-80) 08/14/16 07:40 Lymphocytes 5 % (20-50) L 08/14/16 07:40 Monocytes 6 % (2-10) 08/14/16 07:40 Eosinophils 2 % (0-5) 08/11/16 06:55 Basophils 3 % (0-3) 08/04/16 08:33 Metamyelocytes 1 % (0-0) H 08/14/16 07:40 Myelocytes 1 % 07/14/16 16:00 Hypochromia 1+ 07/20/16 23:30 Platelet Estimate DECREASED PLATELETS (NORMAL) 08/14/16 07:40 Platelet Morphology NORMAL (NORMAL) 08/14/16 07:40 Polychromasia 1+ 07/20/16 23:30 Anisocytosis 1+ 08/14/16 07:40 Microcytosis 1+ 07/14/16 16:00 RBC Morph Micro Appear ABNORMAL (NORMAL) 08/14/16 07:40 PT 16.6 SECONDS (9.5-11.5) H 08/14/16 07:40 INR 1.56 (0.5-1.4) H 08/14/16 07:40 PTT (Actin FS) 37.4 SECONDS (26.0-38.0) 08/14/16 07:40 Specimen Source Arterial 08/14/16 10:28 Sample Site Right Radial 08/14/16 10:28 pH 7.14 (7.35-7.45) L* 08/14/16 10:28 pCO2 66.0 mmHg (35.0-45.0) H* 08/14/16 10:28 pO2 99.0 mmHg (80.0-100.0) 08/14/16 10:28 HCO3 19.1 mEq/L (20.0-26.0) L 08/14/16 10:28 Base Excess -7.4 mEq/L (-3.0-3.0) L 08/14/16 10:28 O2 Saturation 95.0 % (92.0-100.0) 08/14/16 10:28 Estuardo Test PASS 08/14/16 10:28 Vent Rate 12 08/13/16 11:08 Inspired O2 44 08/14/16 10:28 Tidal Volume NA 08/12/16 14:50 PEEP NA 08/12/16 14:50 Pressure (ins/psv/peep) 6 08/13/16 11:08 Critical Value PW 08/14/16 10:28 Sodium 125 mEq/L (136-145) L 08/14/16 07:40 Potassium 4.7 mEq/L (3.5-5.1) 08/14/16 07:40 Chloride 95 mEq/L (98-107) L 08/14/16 07:40 Carbon Dioxide 21.0 mEq/L (21.0-31.0) 08/14/16 07:40 Anion Gap 13.7 (7.0-16.0) 08/14/16 07:40 BUN 68 mg/dL (7-25) H 08/14/16 07:40 Creatinine 5.8 mg/dL (0.7-1.3) H* 08/14/16 07:40 Est GFR ( Amer) 13.4 ml/min (>90) 08/14/16 07:40 Est GFR (Non-Af Amer) 11.1 ml/min 08/14/16 07:40 BUN/Creatinine Ratio 11.7 08/14/16 07:40 Glucose 113 mg/dL (70-105) H 08/14/16 07:40 POC Glucose 108 MG/DL (70 - 105) H 08/10/16 13:34 Hemoglobin A1c % 4.8 % (4.0-6.0) 08/13/16 06:04 Whole Bld Lactic Acid 1.54 mmol/L (0.60-1.99) 08/13/16 06:04 Calcium 9.3 mg/dL (8.6-10.3) 08/14/16 07:40 Phosphorus 5.5 mg/dL (2.5-5.0) H 07/19/16 09:50 Magnesium 1.9 mg/dL (1.9-2.7) 08/04/16 05:45 Iron 42 ug/dL (38-169) 06/28/16 04:38 TIBC 269 ug/dL (250-450) 06/28/16 04:38 Iron Saturation 16 % (15-55) 06/28/16 04:38 Unsaturated IBC 227 ug/dL (111-343) 06/28/16 04:38 Ferritin 150 ng/mL (30-400) 06/26/16 08:30 Total Bilirubin 1.1 mg/dL (0.3-1.0) H 08/14/16 07:40 Direct Bilirubin 0.70 mg/dL (0.0-0.2) H 06/28/16 04:38 GGTP 14 IU/L (0-65) 06/28/16 04:38 AST 27 U/L (13-39) 08/14/16 07:40 ALT 19 U/L (7-52) 08/14/16 07:40 Alkaline Phosphatase 37 U/L (34-104) 08/14/16 07:40 Ammonia 73 umol/L (16-53) H 08/12/16 05:19 Troponin I < 0.01 ng/mL (0.01-0.05) L 06/22/16 19:33 B-Natriuretic Peptide 668.0 pg/mL (5.0-100.0) H 06/22/16 19:33 Total Protein 8.4 gm/dL (6.0-8.3) H 08/14/16 07:40 Albumin 3.0 gm/dL (4.2-5.5) L 08/14/16 07:40 Globulin 5.4 gm/dL 08/14/16 07:40 Albumin/Globulin Ratio 0.6 (1.0-1.8) L 08/14/16 07:40 Amylase 28 U/L (29-103) L 07/02/16 06:40 Lipase 31 U/L (11-82) 07/02/16 06:40 TSH 2.98 uIU/ml (0.34-5.60) 08/13/16 06:04 Urine Source CLEAN C 06/29/16 05:55 Urine Color YELLOW 06/29/16 05:55 Urine Clarity HAZY (CLEAR) 06/29/16 05:55 Urine pH 5.5 06/29/16 05:55 Ur Specific [place] 1.015 (1.005-1.030) 06/29/16 05:55 Urine Protein 30 mg/dL (NEGATIVE) H 06/29/16 05:55 Urine Glucose (UA) NEGATIVE mg/dL (NEGATIVE) 06/29/16 05:55 Urine Ketones NEGATIVE mg/dL (NEGATIVE) 06/29/16 05:55 Urine Blood NEGATIVE (NEGATIVE) 06/29/16 05:55 Urine Nitrate NEGATIVE (NEGATIVE) 06/29/16 05:55 Urine Bilirubin NEGATIVE (NEGATIVE) 06/29/16 05:55 Urine Urobilinogen 0.2 E.U./dL (0.2 - 1.0) 06/29/16 05:55 Ur Leukocyte Esterase TRACE (NEGATIVE) H 06/29/16 05:55 Urine RBC 0-2 /hpf (0-5) H 06/29/16 05:55 Urine WBC 6-10 /hpf (0-5) H 06/29/16 05:55 Ur Epithelial Cells FEW /lpf (FEW) 06/29/16 05:55 Urine Bacteria MANY /hpf (NONE SEEN) 06/29/16 05:55 Stool Occult Blood POSITIVE (NEGATIVE) 06/24/16 16:00 Gentamicin Trough ug/ml (0.2-2.0) 08/12/16 05:19 Random Vancomycin 16.7 ug/mL (5.0-40.0) 08/14/16 07:40 RPR NONREACTIVE (NONREACTIVE) 06/22/16 19:33 Hepatitis A IgM Ab Negative (Negative) 06/29/16 05:49 Hep Bs Antigen Negative (Negative) 06/29/16 05:49 Hep B Core IgM Ab Negative (Negative) 06/29/16 05:49 Hepatitis C Antibody >11.0 s/co ratio (0.0-0.9) H 06/29/16 05:49 Blood Type A POSITIVE 08/10/16 21:07 Antibody Screen NEGATIVE 08/10/16 21:07 Crossmatch See Detail 08/10/16 21:07 - Physical Exam Vitals and I&O: Vital Signs Temp 97.3 F 08/14/16 12:56 Pulse 107 08/14/16 12:56 Resp 14 08/14/16 13:34 BP 113/84 08/14/16 12:56 Pulse Ox 100 08/14/16 13:34 Intake & Output 08/13/16 08/14/16 08/14/16 18:59 06:59 18:59 Intake Total 1050 115.697 Output Total 1 Balance 1049 115.697 Intake: Intake, IV Amount 700 115.697 Meropenem 500 mg In 100 Sodium Chloride 0.9% 100 ml @ 100 mls/hr IV Q12H [facility] Rx#:[id number] Norepinephrine 8 mg In 115.697 Dextrose 5% 250 ml @ Per Protocol IV TITR PRN Rx#: [id number] Vancomycin HCl 2.5 gm In 500 Sodium Chloride 0.9% 500 ml @ 250 mls/hr IV 1000 ONE Rx#:[id number] metroNIDAZOLE 500mg/NS 100 100mL 500 mg In 100 ml @ 100 mls/hr IV Q8HR [facility] Rx #:[id number] Oral 350 Output: Stool 1 Other: Stool Characteristics Liquid Brown Black Active Medications: Current Medications Acetaminophen (Tylenol) 650 mg PO Q6H PRN PRN Reason: temperature above 100F Stop: 09/28/16 16:14 Last Admin: 07/30/16 16:27 Dose: 650 mg Diphenhydramine HCl (Benadryl 50 Mg/Ml) 50 mg IM Q8HR PRN PRN Reason: Agitation Stop: 08/25/16 12:10 Last Admin: 08/14/16 13:05 Dose: 50 mg Diphenhydramine HCl (Benadryl 50 Mg/Ml) 25 mg IVP Q6HR PRN PRN Reason: itching Stop: 10/11/16 03:12 Last Admin: 08/14/16 11:25 Dose: 25 mg Docusate Sodium (Colace) 100 mg PO Q12HR [facility] Stop: 09/16/16 08:59 Last Admin: 08/14/16 08:11 Dose: Not Given Haloperidol Lactate (Haldol) 5 mg IM Q8HR PRN PRN Reason: Agitation Stop: 08/25/16 12:10 Last Admin: 08/14/16 13:15 Dose: 5 mg Hydrocortisone Sodium Succinate (Solu-Cortef) 50 mg IVP Q8H [facility] Stop: 10/09/16 15:59 Last Admin: 08/14/16 08:10 Dose: 50 mg Norepinephrine Bitartrate 8 mg (/ Dextrose) 254 mls @ 0 mls/hr IV TITR PRN; Protocol; Per Protocol PRN Reason: BP MAINTENANCE (PER PROTOCOL) Stop: 10/09/16 13:28 Last Titration: 08/13/16 22:30 Dose: Infused Phenylephrine HCl 10 mg/ (Sodium Chloride) 251 mls @ 0 mls/hr IV TITR [facility]; Titrate PRN Reason: Protocol Stop: 10/09/16 15:14 Last Titration: 08/12/16 15:15 Dose: Infused Lactobacillus Rhamnosus (Culturelle) 1 each PO DAILY [facility] Stop: 10/12/16 08:59 Last Admin: 08/14/16 08:11 Dose: Not Given Lactulose (Cephulac) 20 gm PO Q8HR [facility] Stop: 09/16/16 04:59 Last Admin: 08/14/16 13:06 Dose: Not Given Miscellaneous (Clinical Monitoring) 1 ea MC DAILY PRN PRN Reason: RENAL Stop: 10/06/16 08:17 Miscellaneous (Probiotic Screen) 1 ea MC PRN PRN PRN Reason: PROTOCOL Stop: 10/11/16 14:12 Miscellaneous (Vancomycin Iv Per Pharmacy) 1 ea MC PRN [facility] Stop: 10/12/16 01:29 Morphine Sulfate (Morphine) 2 mg IV Q4H PRN PRN Reason: SEVERE PAIN Stop: 09/23/16 12:59 Last Admin: 08/14/16 13:25 Dose: 2 mg Sodium Bicarbonate (Sodium Bicarb) 50 meq IVP BID [facility] Stop: 10/13/16 16:59 General: no acute distress, other (obese) HEENT: atraumatic, normocephalic, PERRLA, EOMI Neck: supple Cardiovascular: S1S2, regular Lungs: clear to auscultation bilaterally, clear to percussion Abdomen: soft, no tender, no distended, no mass Extremities: no cyanosis, no clubbing, no edema Neurological: awake, alert, oriented, CN 2-12 intact Skin: intact - Procedures Procedures: Procedures Procedure Code Date ARTERY-VEIN NONAUTOGRAFT 34133 06/22/16 BLOOD TRANSFUSION SERVICE 35963 06/22/16 BYPASS L BRACH ART TO UP ARM VEIN W NONAUT SUB, OPEN [id number] 06/22/16 FLUOROSCOPY OF SUP VENA CAVA USING [facility] CONTRAST, GUIDANCE [id number] 06/22/16 INSERTION OF INFUSION DEV INTO SUP VENA CAVA, PERC APPROACH [id number] 06/22/16 PL[address] CATHETER IN VEIN 93048 06/22/16 TRANSFUSE NONAUT RED BLOOD CELLS IN PERIPH VEIN, PERC [id number] 06/22/16 Infectious Disease Assmt/Plan - Problem List Patient Problems: All Active Problems Anemia (Acute) D64.9 ESRD (end stage renal disease) (Acute) ESRD (end stage renal disease) on dialysis (Acute) N18.6, Z99.2 ESRD (end stage renal disease) on dialysis (Acute) N18.6, Z99.2 HYPOTENSION (Acute) HYPOXEMIA (Acute) MEDICAL EVALUATION PER DR FRY (Acute) septic shock (Acute) - Assessment Assessment: 1. Septic shock. staph sepsis. likely line sepsis. MRSA sepsis. 3/4 positive. 2. Pneumonia. 3. CKD 5 on HD. 4. Morbid obesity. 5. hep C. 6. Cellulitis of legs. improved. treated. 7. Lymphedema of legs. 8. CHF. 9. diarrhea suspect due to laxative. - Plan Plan: Continue vanco IV.
--- NOTE | 2016-08-14 15:31 | Diagnostic Imaging Report ---
KUB abdominal film HISTORY: Leukocytosis, pain Exam is limited as the lower portion of the pelvis is off the [id number]. There is a markedly dilated air-filled stomach. Several slightly dilated loops of small bowel is seen. Exact etiology uncertain. Changes associated with a degree of gastric obstruction cannot be excluded. Clinical correlation needed. IMPRESSION: 1. Limited exam 2. Dilated air-filled stomach. A degree of gastric outlet obstruction cannot be excluded. Clinical correlation needed.
[2016-08-14] MEDS ORDERED: Midazolam 1mg/ml 2 ml vial IV ONE (16:30)
[2016-08-14] MEDS: Sodium Bicarbonate 8.4% 50mEq PFS IVP SCH (17:27)
--- NOTE | 2016-08-14 19:14 | Operative Report ---
PREOPERATIVE DIAGNOSES: 1. Acute renal failure. 2. Morbid obesity. POSTOPERATIVE DIAGNOSES: 1. Acute renal failure. 2. Morbid obesity. OPERATION DONE: Placement of Perm-A-Cath right subclavian vein under ultrasound and fluoroscopy. SURGEON: Tarsha Fournier MD ANESTHESIA: MAC. ANESTHESIOLOGIST: Dr. Richie Schmitz. ESTIMATED BLOOD LOSS: 2 mL. INDICATIONS FOR SURGERY: The patient had septicemia and had to remove PermCath in the left subclavian vein. DESCRIPTION OF PROCEDURE: The right chest was prepped with ChloraPrep and draped in appropriate manner. Ultrasound was used to locate the subclavian vessel. An incision was made and size 18 needle was ____ the vein. A guide was then inserted. Then, under fluoroscopy, the placement of the guide wire was identified into the inferior vena cava. ____ introducer was placed over the guide wire and ____ question of 27 cm Perm-A-Cath was inserted. Following this, an x-ray will be done. The patient tolerated the procedure well. JOB# [id number]
[2016-08-14 19:22] LABS: ABG SOURCE ARTERIAL; ALLEN TEST Positive; HCO3 19.4 mEq/L (20.0-26.0); pH 7.21 (7.35-7.45)
[2016-08-14 19:23] LABS: FIO2 30; MECH RATE 12; PS 6
[2016-08-15] MEDS: Hydrocortisone Sodium Succ 100 mg Vial IVP SCH ×3 (02:17→16:45)
[2016-08-15] MEDS: Lactulose 10 Gm/15 mL 30mL UDC PO SCH ×3 (05:53→21:29)
[2016-08-15] MEDS: Sodium Bicarbonate 8.4% 50mEq PFS IVP SCH ×2 (08:28→16:44)
--- NOTE | 2016-08-15 09:17 | Diagnostic Imaging Report ---
CHEST X-RAY: AP view INDICATION: Permacath placement COMPARISON: Chest x-ray 08/13/2016 FINDINGS: 2 images were obtained. The first image demonstrates a guidewire with tip in the region of the right main pulmonary artery. External material is seen along the right neck region. The second image demonstrates interval placement of a right sided dialysis catheter with tip likely at the cavoatrial junction. Findings of CHF are noted with small effusions. Cardiomegaly is noted. No evidence of pneumothorax. Degenerative changes of the spine are noted. IMPRESSION: Right-sided dialysis catheter with tip not well visualized but likely at the cavoatrial junction. No evidence of pneumothorax. CHF and small effusions. Cardiomegaly.
[2016-08-15 09:31] LABS: ABG SOURCE Arterial; ALLEN TEST YES; BE(B) 20.6 mEq/L (-3.0-3.0); FIO2 40; HCO3 -5.6 mEq/L (20.0-26.0); MECH RATE 12; PS 6
[2016-08-15 09:51] LABS: HEMATOCRIT 31.5 % (39.0-49.0); HEMOGLOBIN 10.6 gm/dL (13.2-17.3); MEAN CELL VOLUME 85.7 fl (80-99); MEAN CORPUSCULAR HEMOGLOBIN 28.9 pg (26.0-30.0); MEAN CORPUSCULAR HGB CONC 33.8 pg (28.0-36.0); MEAN PLATELET VOLUME 8.3 fl; PLATELET COUNT 108 Th/cmm (150-400); RED BLOOD COUNT 3.68 Mil/cmm (4.30-5.70); RED CELL DISTRIBUTION WIDTH 14.7 % (11.5-20.0)
[2016-08-15 09:52] LABS: WHITE BLOOD COUNT 12.7 Th/cmm (4.8-10.8)
[2016-08-15 10:02] LABS: ANION GAP 13.7 (7.0-16.0); BUN/CREATININE RATIO 11.9; CALCIUM SERUM 9.7 mg/dL (8.6-10.3); CARBON DIOXIDE 19.8 mEq/L (21.0-31.0); POTASSIUM SERUM 4.5 mEq/L (3.5-5.1)
[2016-08-15 10:10] LABS: VANCOMYCIN RANDOM 24.1 ug/mL (5.0-40.0)
[2016-08-15 10:11] LABS: CREATININE - SERUM 5.2 mg/dL (0.7-1.3)
[2016-08-15 10:27] LABS: ANISOCYTOSIS 1+; BAND NEUTROPHILE 10 % (0-10); NEUTROPHILS 80 % (40-80); PLATELET ESTIMATE DECREASED PLATELETS (NORMAL); PLATELET MORPHOLOGY NORMAL (NORMAL); TOTAL CELLS COUNTED 100
[2016-08-15] MEDS ORDERED: Menthol/Zinc Oxide Oint 113gm Tube TP PRN (11:11)
[2016-08-15] MEDS: Lactobacillus Rhamnosus 10 Billion CFU Capsule PO SCH (12:31)
--- NOTE | 2016-08-15 13:21 | General Progress Note ---
Subjective - Review of Systems Service Date: 08/15/16 Subjective: stuporous, back on BIPAP Objective - Results Result Diagrams: 08/15/16 09:30 08/15/16 09:30 Recent Labs: Laboratory Last Values WBC 12.7 Th/cmm (4.8-10.8) H 08/15/16 09:30 RBC 3.68 Mil/cmm (4.30-5.70) L 08/15/16 09:30 Hgb 10.6 gm/dL (13.2-17.3) L 08/15/16 09:30 Hct 31.5 % (39.0-49.0) L 08/15/16 09:30 MCV 85.7 fl (80-99) 08/15/16 09:30 MCH 28.9 pg (26.0-30.0) 08/15/16 09:30 MCHC Differential 33.8 pg (28.0-36.0) 08/15/16 09:30 RDW 14.7 % (11.5-20.0) 08/15/16 09:30 Plt Count 108 Th/cmm (150-400) L 08/15/16 09:30 MPV 8.3 fl 08/15/16 09:30 Neutrophils % 56.8 % (40.0-80.0) 07/07/16 06:00 Band Neutrophils % 10 % (0-10) 08/15/16 09:30 Lymphocytes % 18.4 % (20.0-50.0) L 07/07/16 06:00 Monocytes % 13.8 % (2.0-10.0) H 07/07/16 06:00 Eosinophils % 11.0 % (0.0-5.0) H 07/07/16 06:00 Basophils % 0.0 % (0.0-2.0) 07/07/16 06:00 Neutrophils (Manual) 80 % (40-80) 08/15/16 09:30 Lymphocytes 8 % (20-50) L 08/15/16 09:30 Monocytes 2 % (2-10) 08/15/16 09:30 Eosinophils 2 % (0-5) 08/11/16 06:55 Basophils 3 % (0-3) 08/04/16 08:33 Metamyelocytes 1 % (0-0) H 08/14/16 07:40 Myelocytes 1 % 07/14/16 16:00 Nucleated RBCs 1.0 % (0-0) H 08/15/16 09:30 Hypochromia 1+ 07/20/16 23:30 Platelet Estimate DECREASED PLATELETS (NORMAL) 08/15/16 09:30 Platelet Morphology NORMAL (NORMAL) 08/15/16 09:30 Polychromasia 1+ 07/20/16 23:30 Anisocytosis 1+ 08/15/16 09:30 Microcytosis 1+ 07/14/16 16:00 RBC Morph Micro Appear ABNORMAL (NORMAL) 08/15/16 09:30 PT 16.6 SECONDS (9.5-11.5) H 08/14/16 07:40 INR 1.56 (0.5-1.4) H 08/14/16 07:40 PTT (Actin FS) 37.4 SECONDS (26.0-38.0) 08/14/16 07:40 Specimen Source Arterial 08/15/16 09:00 Sample Site Right Radial 08/15/16 09:00 pH 7.20 (7.35-7.45) L* 08/15/16 09:00 pCO2 59.0 mmHg (35.0-45.0) H* 08/15/16 09:00 pO2 112.0 mmHg (80.0-100.0) H 08/15/16 09:00 HCO3 -5.6 mEq/L (20.0-26.0) L 08/15/16 09:00 Base Excess 20.6 mEq/L (-3.0-3.0) H 08/15/16 09:00 O2 Saturation 97.0 % (92.0-100.0) 08/15/16 09:00 Estuardo Test YES 08/15/16 09:00 Vent Rate 12 08/15/16 09:00 Inspired O2 40 08/15/16 09:00 Tidal Volume NA 08/15/16 09:00 PEEP NA 08/15/16 09:00 Pressure (ins/psv/peep) 6 08/15/16 09:00 Critical Value [id number] 08/15/16 09:00 Sodium 128 mEq/L (136-145) L 08/15/16 09:30 Potassium 4.5 mEq/L (3.5-5.1) 08/15/16 09:30 Chloride 99 mEq/L (98-107) 08/15/16 09:30 Carbon Dioxide 19.8 mEq/L (21.0-31.0) L 08/15/16 09:30 Anion Gap 13.7 (7.0-16.0) 08/15/16 09:30 BUN 62 mg/dL (7-25) H 08/15/16 09:30 Creatinine 5.2 mg/dL (0.7-1.3) H* 08/15/16 09:30 Est GFR ( Amer) 15.2 ml/min (>90) 08/15/16 09:30 Est GFR (Non-Af Amer) 12.6 ml/min 08/15/16 09:30 BUN/Creatinine Ratio 11.9 08/15/16 09:30 Glucose 110 mg/dL (70-105) H 08/15/16 09:30 POC Glucose 111 MG/DL (70 - 105) H 08/15/16 08:03 Hemoglobin A1c % 4.8 % (4.0-6.0) 08/13/16 06:04 Whole Bld Lactic Acid 1.54 mmol/L (0.60-1.99) 08/13/16 06:04 Calcium 9.7 mg/dL (8.6-10.3) 08/15/16 09:30 Phosphorus 5.5 mg/dL (2.5-5.0) H 07/19/16 09:50 Magnesium 1.9 mg/dL (1.9-2.7) 08/04/16 05:45 Iron 42 ug/dL (38-169) 06/28/16 04:38 TIBC 269 ug/dL (250-450) 06/28/16 04:38 Iron Saturation 16 % (15-55) 06/28/16 04:38 Unsaturated IBC 227 ug/dL (111-343) 06/28/16 04:38 Ferritin 150 ng/mL (30-400) 06/26/16 08:30 Total Bilirubin 1.1 mg/dL (0.3-1.0) H 08/14/16 07:40 Direct Bilirubin 0.70 mg/dL (0.0-0.2) H 06/28/16 04:38 GGTP 14 IU/L (0-65) 06/28/16 04:38 AST 27 U/L (13-39) 08/14/16 07:40 ALT 19 U/L (7-52) 08/14/16 07:40 Alkaline Phosphatase 37 U/L (34-104) 08/14/16 07:40 Ammonia 73 umol/L (16-53) H 08/12/16 05:19 Troponin I < 0.01 ng/mL (0.01-0.05) L 06/22/16 19:33 B-Natriuretic Peptide 668.0 pg/mL (5.0-100.0) H 06/22/16 19:33 Total Protein 8.4 gm/dL (6.0-8.3) H 08/14/16 07:40 Albumin 3.0 gm/dL (4.2-5.5) L 08/14/16 07:40 Globulin 5.4 gm/dL 08/14/16 07:40 Albumin/Globulin Ratio 0.6 (1.0-1.8) L 08/14/16 07:40 Amylase 28 U/L (29-103) L 07/02/16 06:40 Lipase 31 U/L (11-82) 07/02/16 06:40 TSH 2.98 uIU/ml (0.34-5.60) 08/13/16 06:04 Urine Source CLEAN C 06/29/16 05:55 Urine Color YELLOW 06/29/16 05:55 Urine Clarity HAZY (CLEAR) 06/29/16 05:55 Urine pH 5.5 06/29/16 05:55 Ur Specific [place] 1.015 (1.005-1.030) 06/29/16 05:55 Urine Protein 30 mg/dL (NEGATIVE) H 06/29/16 05:55 Urine Glucose (UA) NEGATIVE mg/dL (NEGATIVE) 06/29/16 05:55 Urine Ketones NEGATIVE mg/dL (NEGATIVE) 06/29/16 05:55 Urine Blood NEGATIVE (NEGATIVE) 06/29/16 05:55 Urine Nitrate NEGATIVE (NEGATIVE) 06/29/16 05:55 Urine Bilirubin NEGATIVE (NEGATIVE) 06/29/16 05:55 Urine Urobilinogen 0.2 E.U./dL (0.2 - 1.0) 06/29/16 05:55 Ur Leukocyte Esterase TRACE (NEGATIVE) H 06/29/16 05:55 Urine RBC 0-2 /hpf (0-5) H 06/29/16 05:55 Urine WBC 6-10 /hpf (0-5) H 06/29/16 05:55 Ur Epithelial Cells FEW /lpf (FEW) 06/29/16 05:55 Urine Bacteria MANY /hpf (NONE SEEN) 06/29/16 05:55 Stool Occult Blood POSITIVE (NEGATIVE) 06/24/16 16:00 Gentamicin Trough ug/ml (0.2-2.0) 08/12/16 05:19 Random Vancomycin 24.1 ug/mL (5.0-40.0) 08/15/16 09:30 RPR NONREACTIVE (NONREACTIVE) 06/22/16 19:33 Hepatitis A IgM Ab Negative (Negative) 06/29/16 05:49 Hep Bs Antigen Negative (Negative) 06/29/16 05:49 Hep B Core IgM Ab Negative (Negative) 06/29/16 05:49 Hepatitis C Antibody >11.0 s/co ratio (0.0-0.9) H 06/29/16 05:49 Blood Type A POSITIVE 08/10/16 21:07 Antibody Screen NEGATIVE 08/10/16 21:07 Crossmatch See Detail 08/10/16 21:07 - Physical Exam Vitals and I&O: Vital Signs Temp 97 F 08/15/16 12:00 Pulse 119 08/15/16 12:00 Resp 16 08/15/16 12:00 BP 118/73 08/15/16 12:00 Pulse Ox 95 08/15/16 12:00 Intake & Output 08/14/16 08/15/16 08/15/16 18:59 06:59 18:59 Intake Total 500 100 Output Total 0 3000 Balance 500 -2900 Intake: Intake, IV Amount 500 Vancomycin HCl 2.5 gm In 500 Sodium Chloride 0.9% 500 ml @ 250 mls/hr IV 1100 ONE Rx#:[id number] Oral 100 Output: Urine 0 0 Hemodialysis 3000 Other: # Voids 0 # Bowel Movements 0 Active Medications: Current Medications Acetaminophen (Tylenol) 650 mg PO Q6H PRN PRN Reason: temperature above 100F Stop: 09/28/16 16:14 Last Admin: 07/30/16 16:27 Dose: 650 mg Calamine/Phenol (Calmoseptine) 1 appl TP QID [facility] Stop: 10/14/16 12:59 Diphenhydramine HCl (Benadryl 50 Mg/Ml) 50 mg IM Q8HR PRN PRN Reason: Agitation Stop: 08/25/16 12:10 Last Admin: 08/14/16 22:33 Dose: 50 mg Diphenhydramine HCl (Benadryl 50 Mg/Ml) 25 mg IVP Q6HR PRN PRN Reason: itching Stop: 10/11/16 03:12 Last Admin: 08/14/16 11:25 Dose: 25 mg Docusate Sodium (Colace) 100 mg PO Q12HR [facility] Stop: 09/16/16 08:59 Last Admin: 08/15/16 12:31 Dose: Not Given Haloperidol Lactate (Haldol) 5 mg IM Q8HR PRN PRN Reason: Agitation Stop: 08/25/16 12:10 Last Admin: 08/14/16 13:15 Dose: 5 mg Hydrocortisone Sodium Succinate (Solu-Cortef) 50 mg IVP Q8H [facility] Stop: 10/09/16 15:59 Last Admin: 08/15/16 08:28 Dose: 50 mg Norepinephrine Bitartrate 8 mg (/ Dextrose) 254 mls @ 0 mls/hr IV TITR PRN; Protocol; Per Protocol PRN Reason: BP MAINTENANCE (PER PROTOCOL) Stop: 10/09/16 13:28 Last Titration: 08/13/16 22:30 Dose: Infused Phenylephrine HCl 10 mg/ (Sodium Chloride) 251 mls @ 0 mls/hr IV TITR [facility]; Titrate PRN Reason: Protocol Stop: 10/09/16 15:14 Last Titration: 08/12/16 15:15 Dose: Infused Lactobacillus Rhamnosus (Culturelle) 1 each PO DAILY [facility] Stop: 10/12/16 08:59 Last Admin: 08/15/16 12:31 Dose: Not Given Lactulose (Cephulac) 20 gm PO Q8HR [facility] Stop: 09/16/16 04:59 Last Admin: 08/15/16 12:32 Dose: Not Given Miscellaneous (Clinical Monitoring) 1 ea MC DAILY PRN PRN Reason: RENAL Stop: 10/06/16 08:17 Miscellaneous (Probiotic Screen) 1 ea MC PRN PRN PRN Reason: PROTOCOL Stop: 10/11/16 14:12 Miscellaneous (Vancomycin Iv Per Pharmacy) 1 ea MC PRN [facility] Stop: 10/12/16 01:29 Sodium Bicarbonate (Sodium Bicarb) 50 meq IVP BID MARQUISE Stop: 10/13/16 16:59 Last Admin: 08/15/16 08:28 Dose: 50 meq General: Other (stuporous) HEENT: Atraumatic, Mucous membr. moist/pink Neck: Supple, +2 carotid pulse wo bruit Cardiovascular: Normal S1, Normal S2, Other (tachycardic) Lungs: Other (scattered rhonchi) Abdomen: Bowel sounds, Soft Extremities: Edema ((+) 3 bipedal edema) Neurological: Sensation intact Skin: Other (hyperpigmented) - Procedures Procedures: Procedures Procedure Code Date ARTERY-VEIN NONAUTOGRAFT 20860 06/22/16 BLOOD TRANSFUSION SERVICE 13660 06/22/16 BYPASS L BRACH ART TO UP ARM VEIN W NONAUT SUB, OPEN [id number] 06/22/16 FLUOROSCOPY OF SUP VENA CAVA USING [facility] CONTRAST, GUIDANCE [id number] 06/22/16 INSERTION OF INFUSION DEV INTO SUP VENA CAVA, PERC APPROACH [id number] 06/22/[address] CATHETER IN VEIN 08370 06/22/16 TRANSFUSE NONAUT RED BLOOD CELLS IN PERIPH VEIN, PERC [id number] 06/22/16 Assessment/Plan - Problem List Patient Problems: All Active Problems Anemia (Acute) D64.9 ESRD (end stage renal disease) (Acute) ESRD (end stage renal disease) on dialysis (Acute) N18.6, Z99.2 ESRD (end stage renal disease) on dialysis (Acute) N18.6, Z99.2 HYPOTENSION (Acute) HYPOXEMIA (Acute) MEDICAL EVALUATION PER DR FRY (Acute) septic shock (Acute) - Assessment Assessment: septic shock (better) esrd on hd persistent cellulitis b/l lower ext acute on chronic anemia possible gi bleed ohs chronic a. fib hypothyroid anasarca functional quadriplegia chronic venous stasis dermatitis acute decomp psychosis s/p left avg G (+) cocci in clusters septicemia Resp acidosis - Plan Plan: Lab - Result Diagrams 07/19/16 09:50 Lab - Result Diagrams 07/22/16 05:21 Lab - Result Diagrams 07/24/16 05:00 Lab - Result Diagrams Lab - Result Diagrams 08/04/16 08:33 Lab - Result Diagrams 08/05/16 05:00 08/04/16 05:45 08/04/16 05:45 07/28/16 05:30 07/28/16 05:30 07/24/16 05:00 07/20/16 05:50 07/19/16 09:50 latest hgb/hct were 10.6/31.5 developed septic shock, off pressors culture grew G (+) cocci, WBC down 12.7 continue ABx transfuse as necessary f/u electrolytes, cbc new right Anton cath for hd in am Lab - Result Diagrams 07/19/16 09:50 07/20/16 05:50 Lab - Result Diagrams 07/21/16 06:16 07/20/16 05:50 Lab - Result Diagrams 07/26/16 11:05 07/24/16 05:00 Lab - Result Diagrams 07/29/16 05:55 07/28/16 05:30 Lab - Result Diagrams 08/12/16 05:19 08/12/16 05:19
[2016-08-15] MEDS ORDERED: D5-0.45NS 1,000 ML IV SCH (21:00)
[2016-08-15] MEDS: Menthol/Zinc Oxide Oint 113gm Tube TP SCH (21:00)
[2016-08-16] MEDS: Lactulose 10 Gm/15 mL 30mL UDC PO SCH ×3 (05:11→21:20)
[2016-08-16 05:32] LABS: HEMOGLOBIN 9.5 gm/dL (13.2-17.3); MEAN CELL VOLUME 84.8 fl (80-99); MEAN CORPUSCULAR HEMOGLOBIN 28.5 pg (26.0-30.0); MEAN CORPUSCULAR HGB CONC 33.6 pg (28.0-36.0); MEAN PLATELET VOLUME 8.3 fl; PLATELET COUNT 110 Th/cmm (150-400); RED BLOOD COUNT 3.34 Mil/cmm (4.30-5.70); WHITE BLOOD COUNT 11.7 Th/cmm (4.8-10.8)
[2016-08-16 05:49] LABS: ANION GAP 13.3 (7.0-16.0); BUN/CREATININE RATIO 12.5; CALCIUM SERUM 9.5 mg/dL (8.6-10.3); POTASSIUM SERUM 4.3 mEq/L (3.5-5.1)
[2016-08-16 05:55] LABS: CREATININE - SERUM 5.7 mg/dL (0.7-1.3); VANCOMYCIN RANDOM 24.7 ug/mL (5.0-40.0)
--- NOTE | 2016-08-16 05:59 | Progress Notes ---
SUBJECTIVE: The patient was seen in his room, lying in the bed. The patient's sleep at this time appears to be comfortable and calm. The patient is currently in a BIPAP. Per nurses, the patient had an episode of refusing BIPAP this morning and tends to ____. No pressors at this time. OBJECTIVE: HEENT: Head: Atraumatic and normocephalic. Eyes: Bilateral conjunctivae are clear for injection. CARDIOVASCULAR: S1 and S2 heard, irregularly. PULMONARY: Mild inspiratory wheezing. GASTROINTESTINAL: Soft and nontender without guarding. The patient is obese. MUSCULOSKELETAL: Bilateral lower extremity edema without clubbing. ASSESSMENT: 1. Sepsis. 2. Respiratory failure. 3. End-stage renal disease, on hemodialysis. 4. Atrial fibrillation. 5. Hypothyroidism. 6. Anemia. 7. Bilateral lower extremity cellulitis. 8. Obesity. PLAN: We will try to wean off the patient if tolerable for him to be out from the BIPAP. We will continue hemodialysis per scaler packer and also ____ for possible long-term acute care evaluation. For the meantime, we will keep the patient in the ICU. JOB# [id number]
[2016-08-16 06:11] LABS: HEMATOCRIT 28.3 % (39.0-49.0)
[2016-08-16 08:49] LABS: BAND NEUTROPHILE 8 % (0-10); NEUTROPHILS 83 % (40-80); TOTAL CELLS COUNTED 100
[2016-08-16 08:50] LABS: ANISOCYTOSIS 1+; PLATELET ESTIMATE DECREASED PLATELETS (NORMAL); PLATELET MORPHOLOGY NORMAL (NORMAL)
[2016-08-16] MEDS: Sodium Bicarbonate 8.4% 50mEq PFS IVP SCH ×2 (09:01→16:23)
[2016-08-16] MEDS: Hydrocortisone Sodium Succ 100 mg Vial IVP SCH ×3 (09:02→16:23)
[2016-08-16] MEDS: Lactobacillus Rhamnosus 10 Billion CFU Capsule PO SCH (09:03)
[2016-08-16] MEDS: Menthol/Zinc Oxide Oint 113gm Tube TP SCH ×4 (09:04→21:22)
[2016-08-16 10:01] LABS: ABG SOURCE Arterial; ALLEN TEST Positive; BE(B) -2.7 mEq/L (-3.0-3.0); HCO3 22.8 mEq/L (20.0-26.0); pH 7.27 (7.35-7.45)
[2016-08-16 10:02] LABS: CRITICAL VALUES REPORTED BY ACELIS; FIO2 40; MECH RATE 12; PS 6
--- NOTE | 2016-08-16 14:26 | Infectious Disease Prog Note ---
Infectious Disease Subjective - Review of Systems Service Date: 08/16/16 Subjective: Patient went into septic shock, hypotensive . on levophed low dose. Overall, patient is doing well. Infectious Disease Objective - Results Result Diagrams: 08/16/16 05:16 08/16/16 05:16 Recent Labs: Laboratory Last Values WBC 11.7 Th/cmm (4.8-10.8) H 08/16/16 05:16 RBC 3.34 Mil/cmm (4.30-5.70) L 08/16/16 05:16 Hgb 9.5 gm/dL (13.2-17.3) L 08/16/16 05:16 Hct 28.3 % (39.0-49.0) L D 08/16/16 05:16 MCV 84.8 fl (80-99) 08/16/16 05:16 MCH 28.5 pg (26.0-30.0) 08/16/16 05:16 MCHC Differential 33.6 pg (28.0-36.0) 08/16/16 05:16 RDW 15.0 % (11.5-20.0) 08/16/16 05:16 Plt Count 110 Th/cmm (150-400) L 08/16/16 05:16 MPV 8.3 fl 08/16/16 05:16 Neutrophils % 56.8 % (40.0-80.0) 07/07/16 06:00 Band Neutrophils % 8 % (0-10) 08/16/16 05:16 Lymphocytes % 18.4 % (20.0-50.0) L 07/07/16 06:00 Monocytes % 13.8 % (2.0-10.0) H 07/07/16 06:00 Eosinophils % 11.0 % (0.0-5.0) H 07/07/16 06:00 Basophils % 0.0 % (0.0-2.0) 07/07/16 06:00 Neutrophils (Manual) 83 % (40-80) H 08/16/16 05:16 Lymphocytes 4 % (20-50) L 08/16/16 05:16 Monocytes 5 % (2-10) 08/16/16 05:16 Eosinophils 2 % (0-5) 08/11/16 06:55 Basophils 3 % (0-3) 08/04/16 08:33 Metamyelocytes 1 % (0-0) H 08/14/16 07:40 Myelocytes 1 % 07/14/16 16:00 Nucleated RBCs 1.0 % (0-0) H 08/15/16 09:30 Hypochromia 1+ 07/20/16 23:30 Platelet Estimate DECREASED PLATELETS (NORMAL) 08/16/16 05:16 Platelet Morphology NORMAL (NORMAL) 08/16/16 05:16 Polychromasia 1+ 07/20/16 23:30 Anisocytosis 1+ 08/16/16 05:16 Microcytosis 1+ 07/14/16 16:00 RBC Morph Micro Appear ABNORMAL (NORMAL) 08/16/16 05:16 PT 16.6 SECONDS (9.5-11.5) H 08/14/16 07:40 INR 1.56 (0.5-1.4) H 08/14/16 07:40 PTT (Actin FS) 37.4 SECONDS (26.0-38.0) 08/14/16 07:40 Specimen Source Arterial 08/16/16 09:40 Sample Site Right Radial 08/16/16 09:40 pH 7.27 (7.35-7.45) L 08/16/16 09:40 pCO2 54.0 mmHg (35.0-45.0) H 08/16/16 09:40 pO2 125.0 mmHg (80.0-100.0) H 08/16/16 09:40 HCO3 22.8 mEq/L (20.0-26.0) 08/16/16 09:40 Base Excess -2.7 mEq/L (-3.0-3.0) 08/16/16 09:40 O2 Saturation 98.0 % (92.0-100.0) 08/16/16 09:40 Estuardo Test Positive 08/16/16 09:40 Vent Rate 12 08/16/16 09:40 Inspired O2 40 08/16/16 09:40 Tidal Volume NA 08/16/16 09:40 PEEP NA 08/16/16 09:40 Pressure (ins/psv/peep) 6 08/16/16 09:40 Critical Value ACELIS 08/16/16 09:40 Sodium 130 mEq/L (136-145) L 08/16/16 05:16 Potassium 4.3 mEq/L (3.5-5.1) 08/16/16 05:16 Chloride 97 mEq/L (98-107) L 08/16/16 05:16 Carbon Dioxide 24.0 mEq/L (21.0-31.0) 08/16/16 05:16 Anion Gap 13.3 (7.0-16.0) 08/16/16 05:16 BUN 71 mg/dL (7-25) H 08/16/16 05:16 Creatinine 5.7 mg/dL (0.7-1.3) H* 08/16/16 05:16 Est GFR ( Amer) 13.7 ml/min (>90) 08/16/16 05:16 Est GFR (Non-Af Amer) 11.3 ml/min 08/16/16 05:16 BUN/Creatinine Ratio 12.5 08/16/16 05:16 Glucose 119 mg/dL (70-105) H 08/16/16 05:16 POC Glucose 111 MG/DL (70 - 105) H 08/15/16 08:03 Hemoglobin A1c % 4.8 % (4.0-6.0) 08/13/16 06:04 Whole Bld Lactic Acid 1.54 mmol/L (0.60-1.99) 08/13/16 06:04 Calcium 9.5 mg/dL (8.6-10.3) 08/16/16 05:16 Phosphorus 5.5 mg/dL (2.5-5.0) H 07/19/16 09:50 Magnesium 1.9 mg/dL (1.9-2.7) 08/04/16 05:45 Iron 42 ug/dL (38-169) 06/28/16 04:38 TIBC 269 ug/dL (250-450) 06/28/16 04:38 Iron Saturation 16 % (15-55) 06/28/16 04:38 Unsaturated IBC 227 ug/dL (111-343) 06/28/16 04:38 Ferritin 150 ng/mL (30-400) 06/26/16 08:30 Total Bilirubin 1.1 mg/dL (0.3-1.0) H 08/14/16 07:40 Direct Bilirubin 0.70 mg/dL (0.0-0.2) H 06/28/16 04:38 GGTP 14 IU/L (0-65) 06/28/16 04:38 AST 27 U/L (13-39) 08/14/16 07:40 ALT 19 U/L (7-52) 08/14/16 07:40 Alkaline Phosphatase 37 U/L (34-104) 08/14/16 07:40 Ammonia 73 umol/L (16-53) H 08/12/16 05:19 Troponin I < 0.01 ng/mL (0.01-0.05) L 06/22/16 19:33 B-Natriuretic Peptide 668.0 pg/mL (5.0-100.0) H 06/22/16 19:33 Total Protein 8.4 gm/dL (6.0-8.3) H 08/14/16 07:40 Albumin 3.0 gm/dL (4.2-5.5) L 08/14/16 07:40 Globulin 5.4 gm/dL 08/14/16 07:40 Albumin/Globulin Ratio 0.6 (1.0-1.8) L 08/14/16 07:40 Amylase 28 U/L (29-103) L 07/02/16 06:40 Lipase 31 U/L (11-82) 07/02/16 06:40 TSH 2.98 uIU/ml (0.34-5.60) 08/13/16 06:04 Urine Source CLEAN C 06/29/16 05:55 Urine Color YELLOW 06/29/16 05:55 Urine Clarity HAZY (CLEAR) 06/29/16 05:55 Urine pH 5.5 06/29/16 05:55 Ur Specific [place] 1.015 (1.005-1.030) 06/29/16 05:55 Urine Protein 30 mg/dL (NEGATIVE) H 06/29/16 05:55 Urine Glucose (UA) NEGATIVE mg/dL (NEGATIVE) 06/29/16 05:55 Urine Ketones NEGATIVE mg/dL (NEGATIVE) 06/29/16 05:55 Urine Blood NEGATIVE (NEGATIVE) 06/29/16 05:55 Urine Nitrate NEGATIVE (NEGATIVE) 06/29/16 05:55 Urine Bilirubin NEGATIVE (NEGATIVE) 06/29/16 05:55 Urine Urobilinogen 0.2 E.U./dL (0.2 - 1.0) 06/29/16 05:55 Ur Leukocyte Esterase TRACE (NEGATIVE) H 06/29/16 05:55 Urine RBC 0-2 /hpf (0-5) H 06/29/16 05:55 Urine WBC 6-10 /hpf (0-5) H 06/29/16 05:55 Ur Epithelial Cells FEW /lpf (FEW) 06/29/16 05:55 Urine Bacteria MANY /hpf (NONE SEEN) 06/29/16 05:55 Stool Occult Blood POSITIVE (NEGATIVE) 06/24/16 16:00 Gentamicin Trough ug/ml (0.2-2.0) 08/12/16 05:19 Random Vancomycin 24.7 ug/mL (5.0-40.0) 08/16/16 05:16 RPR NONREACTIVE (NONREACTIVE) 06/22/16 19:33 Hepatitis A IgM Ab Negative (Negative) 06/29/16 05:49 Hep Bs Antigen Negative (Negative) 06/29/16 05:49 Hep B Core IgM Ab Negative (Negative) 06/29/16 05:49 Hepatitis C Antibody >11.0 s/co ratio (0.0-0.9) H 06/29/16 05:49 Blood Type A POSITIVE 08/10/16 21:07 Antibody Screen NEGATIVE 08/10/16 21:07 Crossmatch See Detail 08/10/16 21:07 - Physical Exam Vitals and I&O: Vital Signs Temp 97.6 F 08/16/16 13:00 Pulse 116 08/16/16 13:00 Resp 20 08/16/16 13:15 BP 102/69 08/16/16 13:00 Pulse Ox 100 08/16/16 13:15 Intake & Output 08/15/16 08/16/16 08/16/16 18:59 06:59 18:59 Intake Total 150 Balance 150 Intake: Oral 150 Other: Stool Characteristics Liquid Formed Active Medications: Current Medications Acetaminophen (Tylenol) 650 mg PO Q6H PRN PRN Reason: temperature above 100F Stop: 09/28/16 16:14 Last Admin: 07/30/16 16:27 Dose: 650 mg Calamine/Phenol (Calmoseptine) 1 appl TP QID MARQUISE Stop: 10/14/16 12:59 Last Admin: 08/16/16 13:45 Dose: 1 appl Diphenhydramine HCl (Benadryl 50 Mg/Ml) 50 mg IM Q8HR PRN PRN Reason: Agitation Stop: 08/25/16 12:10 Last Admin: 08/14/16 22:33 Dose: 50 mg Diphenhydramine HCl (Benadryl 50 Mg/Ml) 25 mg IVP Q6HR PRN PRN Reason: itching Stop: 10/11/16 03:12 Last Admin: 08/14/16 11:25 Dose: 25 mg Docusate Sodium (Colace) 100 mg PO Q12HR MARQUISE Stop: 09/16/16 08:59 Last Admin: 08/16/16 09:03 Dose: Not Given Haloperidol Lactate (Haldol) 5 mg IM Q8HR PRN PRN Reason: Agitation Stop: 08/25/16 12:10 Last Admin: 08/14/16 13:15 Dose: 5 mg Hydrocortisone Sodium Succinate (Solu-Cortef) 50 mg IVP Q8H MARQUISE Stop: 10/09/16 15:59 Last Admin: 08/16/16 09:02 Dose: 50 mg Norepinephrine Bitartrate 8 mg (/ Dextrose) 254 mls @ 0 mls/hr IV TITR PRN; Protocol; Per Protocol PRN Reason: BP MAINTENANCE (PER PROTOCOL) Stop: 10/09/16 13:28 Last Titration: 08/13/16 22:30 Dose: Infused Phenylephrine HCl 10 mg/ (Sodium Chloride) 251 mls @ 0 mls/hr IV TITR MARQUISE; Titrate PRN Reason: Protocol Stop: 10/09/16 15:14 Last Titration: 08/12/16 15:15 Dose: Infused Dextrose/Sodium Chloride (D5-0.45ns) 1,000 mls @ 30 mls/hr IV .Q24H MARQUISE Stop: 10/14/16 20:59 Last Admin: 08/15/16 21:30 Dose: 30 mls/hr Lactobacillus Rhamnosus (Culturelle) 1 each PO DAILY MARQUISE Stop: 10/12/16 08:59 Last Admin: 08/16/16 09:03 Dose: 1 each Lactulose (Cephulac) 20 gm PO Q8HR MARQUISE Stop: 09/16/16 04:59 Last Admin: 08/16/16 13:45 Dose: 20 gm Miscellaneous (Clinical Monitoring) 1 ea MC DAILY PRN PRN Reason: RENAL Stop: 10/06/16 08:17 Miscellaneous (Probiotic Screen) 1 ea PRN PRN PRN Reason: PROTOCOL Stop: 10/11/16 14:12 Miscellaneous (Vancomycin Iv Per Pharmacy) 1 ea MC PRN MARQUISE Stop: 10/12/16 01:29 Morphine Sulfate (Morphine) 2 mg IM Q4HR PRN PRN Reason: Pain (Moderate) Stop: 10/15/16 13:36 Sodium Bicarbonate (Sodium Bicarb) 50 meq IVP BID MARQUISE Stop: 10/13/16 16:59 Last Admin: 08/16/16 09:01 Dose: 50 meq General: no acute distress, well developed, well nourished HEENT: atraumatic, normocephalic, PERRLA, EOMI Neck: supple, no thyromegaly Cardiovascular: S1S2, regular Lungs: clear to auscultation bilaterally, clear to percussion Abdomen: soft, no tender, no distended, no mass Extremities: no cyanosis, no clubbing, no edema Neurological: awake, alert, oriented, CN 2-12 intact - Procedures Procedures: Procedures Procedure Code Date ARTERY-VEIN NONAUTOGRAFT 73264 06/22/16 BLOOD TRANSFUSION SERVICE 30542 06/22/16 BYPASS L BRACH ART TO UP ARM VEIN W NONAUT SUB, OPEN [id number] 06/22/16 FLUOROSCOPY OF SUP VENA CAVA USING [facility] CONTRAST, GUIDANCE [id number] 06/22/16 INSERTION OF INFUSION DEV INTO SUP VENA CAVA, PERC APPROACH [id number] 06/22/16 PLACE CATHETER IN VEIN 28303 06/22/16 TRANSFUSE NONAUT RED BLOOD CELLS IN PERIPH VEIN, PERC [id number] 06/22/16 Infectious Disease Assmt/Plan - Problem List Patient Problems: All Active Problems Anemia (Acute) D64.9 ESRD (end stage renal disease) (Acute) ESRD (end stage renal disease) on dialysis (Acute) N18.6, Z99.2 ESRD (end stage renal disease) on dialysis (Acute) N18.6, Z99.2 HYPOTENSION (Acute) HYPOXEMIA (Acute) MEDICAL EVALUATION PER DR FRY (Acute) septic shock (Acute) - Assessment Assessment: 1. Septic shock. staph sepsis. likely line sepsis. MRSA sepsis. 3/4 positive. 2. Pneumonia. 3. CKD 5 on HD. 4. Morbid obesity. 5. hep C. 6. Cellulitis of legs. improved. treated. 7. Lymphedema of legs. 8. CHF. 9. diarrhea suspect due to laxative. - Plan Plan: Continue vanco IV.
--- NOTE | 2016-08-16 14:40 | General Progress Note ---
Subjective - Review of Systems Service Date: 08/16/16 Subjective: stuporous, back on BIPAP Objective - Results Result Diagrams: 08/16/16 05:16 08/16/16 05:16 Recent Labs: Laboratory Last Values WBC 11.7 Th/cmm (4.8-10.8) H 08/16/16 05:16 RBC 3.34 Mil/cmm (4.30-5.70) L 08/16/16 05:16 Hgb 9.5 gm/dL (13.2-17.3) L 08/16/16 05:16 Hct 28.3 % (39.0-49.0) L D 08/16/16 05:16 MCV 84.8 fl (80-99) 08/16/16 05:16 MCH 28.5 pg (26.0-30.0) 08/16/16 05:16 MCHC Differential 33.6 pg (28.0-36.0) 08/16/16 05:16 RDW 15.0 % (11.5-20.0) 08/16/16 05:16 Plt Count 110 Th/cmm (150-400) L 08/16/16 05:16 MPV 8.3 fl 08/16/16 05:16 Neutrophils % 56.8 % (40.0-80.0) 07/07/16 06:00 Band Neutrophils % 8 % (0-10) 08/16/16 05:16 Lymphocytes % 18.4 % (20.0-50.0) L 07/07/16 06:00 Monocytes % 13.8 % (2.0-10.0) H 07/07/16 06:00 Eosinophils % 11.0 % (0.0-5.0) H 07/07/16 06:00 Basophils % 0.0 % (0.0-2.0) 07/07/16 06:00 Neutrophils (Manual) 83 % (40-80) H 08/16/16 05:16 Lymphocytes 4 % (20-50) L 08/16/16 05:16 Monocytes 5 % (2-10) 08/16/16 05:16 Eosinophils 2 % (0-5) 08/11/16 06:55 Basophils 3 % (0-3) 08/04/16 08:33 Metamyelocytes 1 % (0-0) H 08/14/16 07:40 Myelocytes 1 % 07/14/16 16:00 Nucleated RBCs 1.0 % (0-0) H 08/15/16 09:30 Hypochromia 1+ 07/20/16 23:30 Platelet Estimate DECREASED PLATELETS (NORMAL) 08/16/16 05:16 Platelet Morphology NORMAL (NORMAL) 08/16/16 05:16 Polychromasia 1+ 07/20/16 23:30 Anisocytosis 1+ 08/16/16 05:16 Microcytosis 1+ 07/14/16 16:00 RBC Morph Micro Appear ABNORMAL (NORMAL) 08/16/16 05:16 PT 16.6 SECONDS (9.5-11.5) H 08/14/16 07:40 INR 1.56 (0.5-1.4) H 08/14/16 07:40 PTT (Actin FS) 37.4 SECONDS (26.0-38.0) 08/14/16 07:40 Specimen Source Arterial 08/16/16 09:40 Sample Site Right Radial 08/16/16 09:40 pH 7.27 (7.35-7.45) L 08/16/16 09:40 pCO2 54.0 mmHg (35.0-45.0) H 08/16/16 09:40 pO2 125.0 mmHg (80.0-100.0) H 08/16/16 09:40 HCO3 22.8 mEq/L (20.0-26.0) 08/16/16 09:40 Base Excess -2.7 mEq/L (-3.0-3.0) 08/16/16 09:40 O2 Saturation 98.0 % (92.0-100.0) 08/16/16 09:40 Estuardo Test Positive 08/16/16 09:40 Vent Rate 12 08/16/16 09:40 Inspired O2 40 08/16/16 09:40 Tidal Volume NA 08/16/16 09:40 PEEP NA 08/16/16 09:40 Pressure (ins/psv/peep) 6 08/16/16 09:40 Critical Value ACELIS 08/16/16 09:40 Sodium 130 mEq/L (136-145) L 08/16/16 05:16 Potassium 4.3 mEq/L (3.5-5.1) 08/16/16 05:16 Chloride 97 mEq/L (98-107) L 08/16/16 05:16 Carbon Dioxide 24.0 mEq/L (21.0-31.0) 08/16/16 05:16 Anion Gap 13.3 (7.0-16.0) 08/16/16 05:16 BUN 71 mg/dL (7-25) H 08/16/16 05:16 Creatinine 5.7 mg/dL (0.7-1.3) H* 08/16/16 05:16 Est GFR ( Amer) 13.7 ml/min (>90) 08/16/16 05:16 Est GFR (Non-Af Amer) 11.3 ml/min 08/16/16 05:16 BUN/Creatinine Ratio 12.5 08/16/16 05:16 Glucose 119 mg/dL (70-105) H 08/16/16 05:16 POC Glucose 111 MG/DL (70 - 105) H 08/15/16 08:03 Hemoglobin A1c % 4.8 % (4.0-6.0) 08/13/16 06:04 Whole Bld Lactic Acid 1.54 mmol/L (0.60-1.99) 08/13/16 06:04 Calcium 9.5 mg/dL (8.6-10.3) 08/16/16 05:16 Phosphorus 5.5 mg/dL (2.5-5.0) H 07/19/16 09:50 Magnesium 1.9 mg/dL (1.9-2.7) 08/04/16 05:45 Iron 42 ug/dL (38-169) 06/28/16 04:38 TIBC 269 ug/dL (250-450) 06/28/16 04:38 Iron Saturation 16 % (15-55) 06/28/16 04:38 Unsaturated IBC 227 ug/dL (111-343) 06/28/16 04:38 Ferritin 150 ng/mL (30-400) 06/26/16 08:30 Total Bilirubin 1.1 mg/dL (0.3-1.0) H 08/14/16 07:40 Direct Bilirubin 0.70 mg/dL (0.0-0.2) H 06/28/16 04:38 GGTP 14 IU/L (0-65) 06/28/16 04:38 AST 27 U/L (13-39) 08/14/16 07:40 ALT 19 U/L (7-52) 08/14/16 07:40 Alkaline Phosphatase 37 U/L (34-104) 08/14/16 07:40 Ammonia 73 umol/L (16-53) H 08/12/16 05:19 Troponin I < 0.01 ng/mL (0.01-0.05) L 06/22/16 19:33 B-Natriuretic Peptide 668.0 pg/mL (5.0-100.0) H 06/22/16 19:33 Total Protein 8.4 gm/dL (6.0-8.3) H 08/14/16 07:40 Albumin 3.0 gm/dL (4.2-5.5) L 08/14/16 07:40 Globulin 5.4 gm/dL 08/14/16 07:40 Albumin/Globulin Ratio 0.6 (1.0-1.8) L 08/14/16 07:40 Amylase 28 U/L (29-103) L 07/02/16 06:40 Lipase 31 U/L (11-82) 07/02/16 06:40 TSH 2.98 uIU/ml (0.34-5.60) 08/13/16 06:04 Urine Source CLEAN C 06/29/16 05:55 Urine Color YELLOW 06/29/16 05:55 Urine Clarity HAZY (CLEAR) 06/29/16 05:55 Urine pH 5.5 06/29/16 05:55 Ur Specific [place] 1.015 (1.005-1.030) 06/29/16 05:55 Urine Protein 30 mg/dL (NEGATIVE) H 06/29/16 05:55 Urine Glucose (UA) NEGATIVE mg/dL (NEGATIVE) 06/29/16 05:55 Urine Ketones NEGATIVE mg/dL (NEGATIVE) 06/29/16 05:55 Urine Blood NEGATIVE (NEGATIVE) 06/29/16 05:55 Urine Nitrate NEGATIVE (NEGATIVE) 06/29/16 05:55 Urine Bilirubin NEGATIVE (NEGATIVE) 06/29/16 05:55 Urine Urobilinogen 0.2 E.U./dL (0.2 - 1.0) 06/29/16 05:55 Ur Leukocyte Esterase TRACE (NEGATIVE) H 06/29/16 05:55 Urine RBC 0-2 /hpf (0-5) H 06/29/16 05:55 Urine WBC 6-10 /hpf (0-5) H 06/29/16 05:55 Ur Epithelial Cells FEW /lpf (FEW) 06/29/16 05:55 Urine Bacteria MANY /hpf (NONE SEEN) 06/29/16 05:55 Stool Occult Blood POSITIVE (NEGATIVE) 06/24/16 16:00 Gentamicin Trough ug/ml (0.2-2.0) 08/12/16 05:19 Random Vancomycin 24.7 ug/mL (5.0-40.0) 08/16/16 05:16 RPR NONREACTIVE (NONREACTIVE) 06/22/16 19:33 Hepatitis A IgM Ab Negative (Negative) 06/29/16 05:49 Hep Bs Antigen Negative (Negative) 06/29/16 05:49 Hep B Core IgM Ab Negative (Negative) 06/29/16 05:49 Hepatitis C Antibody >11.0 s/co ratio (0.0-0.9) H 06/29/16 05:49 Blood Type A POSITIVE 08/10/16 21:07 Antibody Screen NEGATIVE 08/10/16 21:07 Crossmatch See Detail 08/10/16 21:07 - Physical Exam Vitals and I&O: Vital Signs Temp 97.6 F 08/16/16 14:00 Pulse 121 08/16/16 14:00 Resp 14 08/16/16 14:00 BP 97/64 08/16/16 14:00 Pulse Ox 98 08/16/16 14:00 Intake & Output 08/15/16 08/16/16 08/16/16 18:59 06:59 18:59 Intake Total 150 Balance 150 Intake: Oral 150 Other: Stool Characteristics Liquid Formed Active Medications: Current Medications Acetaminophen (Tylenol) 650 mg PO Q6H PRN PRN Reason: temperature above 100F Stop: 09/28/16 16:14 Last Admin: 07/30/16 16:27 Dose: 650 mg Calamine/Phenol (Calmoseptine) 1 appl TP QID MARQUISE Stop: 10/14/16 12:59 Last Admin: 08/16/16 13:45 Dose: 1 appl Diphenhydramine HCl (Benadryl 50 Mg/Ml) 50 mg IM Q8HR PRN PRN Reason: Agitation Stop: 08/25/16 12:10 Last Admin: 08/14/16 22:33 Dose: 50 mg Diphenhydramine HCl (Benadryl 50 Mg/Ml) 25 mg IVP Q6HR PRN PRN Reason: itching Stop: 10/11/16 03:12 Last Admin: 08/14/16 11:25 Dose: 25 mg Docusate Sodium (Colace) 100 mg PO Q12HR MARQUISE Stop: 09/16/16 08:59 Last Admin: 08/16/16 09:03 Dose: Not Given Haloperidol Lactate (Haldol) 5 mg IM Q8HR PRN PRN Reason: Agitation Stop: 08/25/16 12:10 Last Admin: 08/14/16 13:15 Dose: 5 mg Hydrocortisone Sodium Succinate (Solu-Cortef) 50 mg IVP Q8H MARQUISE Stop: 10/09/16 15:59 Last Admin: 08/16/16 09:02 Dose: 50 mg Norepinephrine Bitartrate 8 mg (/ Dextrose) 254 mls @ 0 mls/hr IV TITR PRN; Protocol; Per Protocol PRN Reason: BP MAINTENANCE (PER PROTOCOL) Stop: 10/09/16 13:28 Last Titration: 08/13/16 22:30 Dose: Infused Phenylephrine HCl 10 mg/ (Sodium Chloride) 251 mls @ 0 mls/hr IV TITR MARQUISE; Titrate PRN Reason: Protocol Stop: 10/09/16 15:14 Last Titration: 08/12/16 15:15 Dose: Infused Dextrose/Sodium Chloride (D5-0.45ns) 1,000 mls @ 30 mls/hr IV .Q24H MARQUISE Stop: 10/14/16 20:59 Last Admin: 08/15/16 21:30 Dose: 30 mls/hr Lactobacillus Rhamnosus (Culturelle) 1 each PO DAILY MARQUISE Stop: 10/12/16 08:59 Last Admin: 08/16/16 09:03 Dose: 1 each Lactulose (Cephulac) 20 gm PO Q8HR MARQUISE Stop: 09/16/16 04:59 Last Admin: 08/16/16 13:45 Dose: 20 gm Miscellaneous (Clinical Monitoring) 1 ea DAILY PRN PRN Reason: RENAL Stop: 10/06/16 08:17 Miscellaneous (Probiotic Screen) 1 ea PRN PRN PRN Reason: PROTOCOL Stop: 10/11/16 14:12 Miscellaneous (Vancomycin Iv Per Pharmacy) 1 ea MC PRN [facility] Stop: 10/12/16 01:29 Morphine Sulfate (Morphine) 2 mg IM Q4HR PRN PRN Reason: Pain (Moderate) Stop: 10/15/16 13:36 Sodium Bicarbonate (Sodium Bicarb) 50 meq IVP BID MARQUISE Stop: 10/13/16 16:59 Last Admin: 08/16/16 09:01 Dose: 50 meq General: Moderate distress HEENT: Atraumatic, Mucous membr. moist/pink Neck: Supple, +2 carotid pulse wo bruit Cardiovascular: Normal S1, Normal S2, Other (tachycardic) Lungs: Other (few rhonchi) Abdomen: Bowel sounds, Soft Extremities: Edema ((+) 3 bipedal) Neurological: Sensation intact Skin: no Rash - Procedures Procedures: Procedures Procedure Code Date ARTERY-VEIN NONAUTOGRAFT 12490 06/22/16 BLOOD TRANSFUSION SERVICE 31833 06/22/16 BYPASS L BRACH ART TO UP ARM VEIN W NONAUT SUB, OPEN [id number] 06/22/16 FLUOROSCOPY OF SUP VENA CAVA USING [facility] CONTRAST, GUIDANCE [id number] 06/22/16 INSERTION OF INFUSION DEV INTO SUP VENA CAVA, PERC APPROACH [id number] 06/22/[address] PL[address] CATHETER IN VEIN 03982 06/22/16 TRANSFUSE NONAUT RED BLOOD CELLS IN PERIPH VEIN, PERC [id number] 06/22/16 Assessment/Plan - Problem List Patient Problems: All Active Problems Anemia (Acute) D64.9 ESRD (end stage renal disease) (Acute) ESRD (end stage renal disease) on dialysis (Acute) N18.6, Z99.2 ESRD (end stage renal disease) on dialysis (Acute) N18.6, Z99.2 HYPOTENSION (Acute) HYPOXEMIA (Acute) MEDICAL EVALUATION PER DR FRY (Acute) septic shock (Acute) - Assessment Assessment: septic shock (better) esrd on hd persistent cellulitis b/l lower ext acute on chronic anemia possible gi bleed ohs chronic a. fib hypothyroid anasarca functional quadriplegia chronic venous stasis dermatitis acute decomp psychosis s/p left avg G (+) cocci in clusters septicemia Resp acidosis on BIPAP - Plan Plan: Lab - Result Diagrams 07/19/16 09:50 Lab - Result Diagrams 07/22/16 05:21 Lab - Result Diagrams 07/24/16 05:00 Lab - Result Diagrams Lab - Result Diagrams 08/04/16 08:33 Lab - Result Diagrams 08/05/16 05:00 08/04/16 05:45 08/04/16 05:45 07/28/16 05:30 07/28/16 05:30 07/24/16 05:00 07/20/16 05:50 07/19/16 09:50 latest hgb/hct were 9.5/28.3 developed septic shock, off pressors culture grew G (+) cocci, WBC down 11.7 continue ABx transfuse as necessary f/u electrolytes, cbc new right Anton cath currently being dialyzed Lab - Result Diagrams 07/19/16 09:50 07/20/16 05:50 Lab - Result Diagrams 07/21/16 06:16 07/20/16 05:50 Lab - Result Diagrams 07/26/16 11:05 07/24/16 05:00 Lab - Result Diagrams 07/29/16 05:55 07/28/16 05:30 Lab - Result Diagrams 08/12/16 05:19 08/12/16 05:19
[2016-08-16] MEDS: Sodium Chloride 0.9% 1,000 ML IV SCH (15:05)
[2016-08-16] MEDS: Morphine Sulfate 2 mg/mL 1mL Syr IV PRN (17:00)
[2016-08-17] MEDS: Lactulose 10 Gm/15 mL 30mL UDC PO SCH ×3 (05:00→22:32)
[2016-08-17 07:34] LABS: HEMATOCRIT 30.8 % (39.0-49.0); HEMOGLOBIN 10.2 gm/dL (13.2-17.3); MEAN CELL VOLUME 84.6 fl (80-99); MEAN CORPUSCULAR HEMOGLOBIN 27.9 pg (26.0-30.0); MEAN PLATELET VOLUME 8.2 fl; PLATELET COUNT 88 Th/cmm (150-400); RED BLOOD COUNT 3.64 Mil/cmm (4.30-5.70); RED CELL DISTRIBUTION WIDTH 14.9 % (11.5-20.0)
[2016-08-17 07:40] LABS: WHITE BLOOD COUNT 8.5 Th/cmm (4.8-10.8)
[2016-08-17 07:53] LABS: INR 1.62 (0.5-1.4); PROTHROMBIN TIME (TEST) 17.3 SECONDS (9.5-11.5)
[2016-08-17 07:55] LABS: ANION GAP 11.6 (7.0-16.0); BUN/CREATININE RATIO 12.8; CALCIUM SERUM 9.5 mg/dL (8.6-10.3); CARBON DIOXIDE 25.2 mEq/L (21.0-31.0); POTASSIUM SERUM 3.8 mEq/L (3.5-5.1)
[2016-08-17 07:59] LABS: CREATININE - SERUM 5.3 mg/dL (0.7-1.3)
--- NOTE | 2016-08-17 08:09 | Diagnostic Imaging Report ---
Portable chest x-ray HISTORY: Shortness of breath, vascular catheter placement Compared with a prior exam of August 06, 2016, right-sided vascular catheter is seen with the tip over the right axillary area unchanged. The heart remains enlarged. Poor visualization of the left lower lobe. IMPRESSION: 1. Right-sided vascular catheter with the tip projecting over the right axillary region.
[2016-08-17] MEDS: Hydrocortisone Sodium Succ 100 mg Vial IVP SCH ×3 (08:20→15:33)
[2016-08-17 08:21] LABS: BAND NEUTROPHILE 4 % (0-10); EOSINOPHIL 1 % (0-5); NEUTROPHILS 88 % (40-80); PLATELET ESTIMATE DECREASED PLATELETS (NORMAL); PLATELET MORPHOLOGY NORMAL (NORMAL); TOTAL CELLS COUNTED 100
[2016-08-17 08:26] LABS: ABG SOURCE Arterial; ALLEN TEST YES; BE(B) 24.5 mEq/L (-3.0-3.0); HCO3 -0.6 mEq/L (20.0-26.0); pH 7.35 (7.35-7.45)
[2016-08-17 08:27] LABS: FIO2 30; MECH RATE 12; PS 6
--- NOTE | 2016-08-17 08:31 | Diagnostic Imaging Report ---
Portable chest x-ray HISTORY: Shortness of breath Compared with prior exam of August 16, 2016, the heart remains enlarged. Allowing for a poor inspiration, no focal pulmonary processes are seen. IMPRESSION: 1. No focal pulmonary processes 2. Cardiomegaly
[2016-08-17] MEDS: Menthol/Zinc Oxide Oint 113gm Tube TP SCH ×4 (08:45→22:31)
[2016-08-17] MEDS: Lactobacillus Rhamnosus 10 Billion CFU Capsule PO SCH (08:45)
[2016-08-17] MEDS: Sodium Bicarbonate 8.4% 50mEq PFS IVP SCH ×2 (08:45→16:24)
--- NOTE | 2016-08-17 09:26 | General Progress Note ---
Subjective - Review of Systems Service Date: 08/17/16 Events since last encounter: Reviwed the chart, discussed with the staff, noted pulmonary's plan to continue BIPAP. Patient desaturates aand retains CO2. on sodium bicarb, IV bid. cannot be downgraded to tele Vitals Temp 98, P 116, AFIB, BP 127/71, RR 14. sat 100 % on Bipap 30 FIO2, rate 18, 12, PE Awake, alert sitting in the bed eating his breakfast. HEENT No change Lungs Decreased BS S1S2 heard, Tachy Abd Soft Ext No CCE ASSEMENT * ESRD ON HD * CHRONIC RESPIRATORY FAILURE * SLEEP APNEA * CELLULITIS * AFIB * HEP-C * PSYCHOSIS PLAN * CPM Objective - Results Result Diagrams: 08/17/16 07:20 08/17/16 07:20 Recent Labs: Laboratory Last Values WBC 8.5 Th/cmm (4.8-10.8) D 08/17/16 07:20 RBC 3.64 Mil/cmm (4.30-5.70) L 08/17/16 07:20 Hgb 10.2 gm/dL (13.2-17.3) L 08/17/16 07:20 Hct 30.8 % (39.0-49.0) L 08/17/16 07:20 MCV 84.6 fl (80-99) 08/17/16 07:20 MCH 27.9 pg (26.0-30.0) 08/17/16 07:20 MCHC Differential 33.0 pg (28.0-36.0) 08/17/16 07:20 RDW 14.9 % (11.5-20.0) 08/17/16 07:20 Plt Count 88 Th/cmm (150-400) L 08/17/16 07:20 MPV 8.2 fl 08/17/16 07:20 Neutrophils % 56.8 % (40.0-80.0) 07/07/16 06:00 Band Neutrophils % 4 % (0-10) 08/17/16 07:20 Lymphocytes % 18.4 % (20.0-50.0) L 07/07/16 06:00 Monocytes % 13.8 % (2.0-10.0) H 07/07/16 06:00 Eosinophils % 11.0 % (0.0-5.0) H 07/07/16 06:00 Basophils % 0.0 % (0.0-2.0) 07/07/16 06:00 Neutrophils (Manual) 88 % (40-80) H 08/17/16 07:20 Lymphocytes 5 % (20-50) L 08/17/16 07:20 Monocytes 2 % (2-10) 08/17/16 07:20 Eosinophils 1 % (0-5) 08/17/16 07:20 Basophils 3 % (0-3) 08/04/16 08:33 Metamyelocytes 1 % (0-0) H 08/14/16 07:40 Myelocytes 1 % 07/14/16 16:00 Nucleated RBCs 1.0 % (0-0) H 08/15/16 09:30 Hypochromia 1+ 07/20/16 23:30 Platelet Estimate DECREASED PLATELETS (NORMAL) 08/17/16 07:20 Platelet Morphology NORMAL (NORMAL) 08/17/16 07:20 Polychromasia 1+ 07/20/16 23:30 Anisocytosis 1+ 08/16/16 05:16 Microcytosis 1+ 07/14/16 16:00 RBC Morph Micro Appear NORMAL (NORMAL) 08/17/16 07:20 PT 17.3 SECONDS (9.5-11.5) H 08/17/16 07:20 INR 1.62 (0.5-1.4) H 08/17/16 07:20 PTT (Actin FS) 37.7 SECONDS (26.0-38.0) 08/17/16 07:20 Specimen Source Arterial 08/17/16 08:05 Sample Site Right Radial 08/17/16 08:05 pH 7.35 (7.35-7.45) 08/17/16 08:05 pCO2 46.0 mmHg (35.0-45.0) H 08/17/16 08:05 pO2 97.0 mmHg (80.0-100.0) 08/17/16 08:05 HCO3 -0.6 mEq/L (20.0-26.0) L 08/17/16 08:05 Base Excess 24.5 mEq/L (-3.0-3.0) H 08/17/16 08:05 O2 Saturation 97.0 % (92.0-100.0) 08/17/16 08:05 Estuardo Test YES 08/17/16 08:05 Vent Rate 12 08/17/16 08:05 Inspired O2 30 08/17/16 08:05 Tidal Volume NA 08/17/16 08:05 PEEP NA 08/17/16 08:05 Pressure (ins/psv/peep) 6 08/17/16 08:05 Critical Value [email or web address] 08/17/16 08:05 Sodium 131 mEq/L (136-145) L 08/17/16 07:20 Potassium 3.8 mEq/L (3.5-5.1) 08/17/16 07:20 Chloride 98 mEq/L (98-107) 08/17/16 07:20 Carbon Dioxide 25.2 mEq/L (21.0-31.0) 08/17/16 07:20 Anion Gap 11.6 (7.0-16.0) 08/17/16 07:20 BUN 68 mg/dL (7-25) H 08/17/16 07:20 Creatinine 5.3 mg/dL (0.7-1.3) H* 08/17/16 07:20 Est GFR ( Amer) 14.9 ml/min (>90) 08/17/16 07:20 Est GFR (Non-Af Amer) 12.3 ml/min 08/17/16 07:20 BUN/Creatinine Ratio 12.8 08/17/16 07:20 Glucose 134 mg/dL (70-105) H 08/17/16 07:20 POC Glucose 111 MG/DL (70 - 105) H 08/15/16 08:03 Hemoglobin A1c % 4.8 % (4.0-6.0) 08/13/16 06:04 Whole Bld Lactic Acid 1.54 mmol/L (0.60-1.99) 08/13/16 06:04 Calcium 9.5 mg/dL (8.6-10.3) 08/17/16 07:20 Phosphorus 5.5 mg/dL (2.5-5.0) H 07/19/16 09:50 Magnesium 1.9 mg/dL (1.9-2.7) 08/04/16 05:45 Iron 42 ug/dL (38-169) 06/28/16 04:38 TIBC 269 ug/dL (250-450) 06/28/16 04:38 Iron Saturation 16 % (15-55) 06/28/16 04:38 Unsaturated IBC 227 ug/dL (111-343) 06/28/16 04:38 Ferritin 150 ng/mL (30-400) 06/26/16 08:30 Total Bilirubin 1.1 mg/dL (0.3-1.0) H 08/14/16 07:40 Direct Bilirubin 0.70 mg/dL (0.0-0.2) H 06/28/16 04:38 GGTP 14 IU/L (0-65) 06/28/16 04:38 AST 27 U/L (13-39) 08/14/16 07:40 ALT 19 U/L (7-52) 08/14/16 07:40 Alkaline Phosphatase 37 U/L (34-104) 08/14/16 07:40 Ammonia 73 umol/L (16-53) H 08/12/16 05:19 Troponin I < 0.01 ng/mL (0.01-0.05) L 06/22/16 19:33 B-Natriuretic Peptide 668.0 pg/mL (5.0-100.0) H 06/22/16 19:33 Total Protein 8.4 gm/dL (6.0-8.3) H 08/14/16 07:40 Albumin 3.0 gm/dL (4.2-5.5) L 08/14/16 07:40 Globulin 5.4 gm/dL 08/14/16 07:40 Albumin/Globulin Ratio 0.6 (1.0-1.8) L 08/14/16 07:40 Amylase 28 U/L (29-103) L 07/02/16 06:40 Lipase 31 U/L (11-82) 07/02/16 06:40 TSH 2.98 uIU/ml (0.34-5.60) 08/13/16 06:04 Urine Source CLEAN C 06/29/16 05:55 Urine Color YELLOW 06/29/16 05:55 Urine Clarity HAZY (CLEAR) 06/29/16 05:55 Urine pH 5.5 06/29/16 05:55 Ur Specific [place] 1.015 (1.005-1.030) 06/29/16 05:55 Urine Protein 30 mg/dL (NEGATIVE) H 06/29/16 05:55 Urine Glucose (UA) NEGATIVE mg/dL (NEGATIVE) 06/29/16 05:55 Urine Ketones NEGATIVE mg/dL (NEGATIVE) 06/29/16 05:55 Urine Blood NEGATIVE (NEGATIVE) 06/29/16 05:55 Urine Nitrate NEGATIVE (NEGATIVE) 06/29/16 05:55 Urine Bilirubin NEGATIVE (NEGATIVE) 06/29/16 05:55 Urine Urobilinogen 0.2 E.U./dL (0.2 - 1.0) 06/29/16 05:55 Ur Leukocyte Esterase TRACE (NEGATIVE) H 06/29/16 05:55 Urine RBC 0-2 /hpf (0-5) H 06/29/16 05:55 Urine WBC 6-10 /hpf (0-5) H 06/29/16 05:55 Ur Epithelial Cells FEW /lpf (FEW) 06/29/16 05:55 Urine Bacteria MANY /hpf (NONE SEEN) 06/29/16 05:55 Stool Occult Blood POSITIVE (NEGATIVE) 06/24/16 16:00 Gentamicin Trough ug/ml (0.2-2.0) 08/12/16 05:19 Random Vancomycin 24.7 ug/mL (5.0-40.0) 08/16/16 05:16 RPR NONREACTIVE (NONREACTIVE) 06/22/16 19:33 Hepatitis A IgM Ab Negative (Negative) 06/29/16 05:49 Hep Bs Antigen Negative (Negative) 06/29/16 05:49 Hep B Core IgM Ab Negative (Negative) 06/29/16 05:49 Hepatitis C Antibody >11.0 s/co ratio (0.0-0.9) H 06/29/16 05:49 Blood Type A POSITIVE 08/10/16 21:07 Antibody Screen NEGATIVE 08/10/16 21:07 Crossmatch See Detail 08/10/16 21:07 - Physical Exam Vitals and I&O: Vital Signs Temp 97.1 F 08/17/16 07:00 Pulse 130 08/17/16 07:00 Resp 18 08/17/16 07:06 BP 118/84 08/17/16 07:00 Pulse Ox 100 08/17/16 07:06 Intake & Output 08/16/16 08/17/16 08/17/16 18:59 06:59 18:59 Intake Total 800 100 200 Output Total 2600 0 Balance -1800 100 200 Intake: Oral 800 100 200 Output: Urine 0 Stool 0 Hemodialysis 2600 Other: # Bowel Movements 0 0 Active Medications: Current Medications Acetaminophen (Tylenol) 650 mg PO Q6H PRN PRN Reason: temperature above 100F Stop: 09/28/16 16:14 Last Admin: 07/30/16 16:27 Dose: 650 mg Calamine/Phenol (Calmoseptine) 1 appl TP QID MARQUISE Stop: 10/14/16 12:59 Last Admin: 08/17/16 08:45 Dose: 1 appl Diphenhydramine HCl (Benadryl 50 Mg/Ml) 50 mg IM Q8HR PRN PRN Reason: Agitation Stop: 08/25/16 12:10 Last Admin: 08/14/16 22:33 Dose: 50 mg Diphenhydramine HCl (Benadryl 50 Mg/Ml) 25 mg IVP Q6HR PRN PRN Reason: itching Stop: 10/11/16 03:12 Last Admin: 08/14/16 11:25 Dose: 25 mg Docusate Sodium (Colace) 100 mg PO Q12HR MARQUISE Stop: 09/16/16 08:59 Last Admin: 08/17/16 08:45 Dose: Not Given Haloperidol Lactate (Haldol) 5 mg IM Q8HR PRN PRN Reason: Agitation Stop: 08/25/16 12:10 Last Admin: 08/14/16 13:15 Dose: 5 mg Hydrocortisone Sodium Succinate (Solu-Cortef) 50 mg IVP Q8H MARQUISE Stop: 10/09/16 15:59 Last Admin: 08/17/16 08:20 Dose: 50 mg Norepinephrine Bitartrate 8 mg (/ Dextrose) 254 mls @ 0 mls/hr IV TITR PRN; Protocol; Per Protocol PRN Reason: BP MAINTENANCE (PER PROTOCOL) Stop: 10/09/16 13:28 Last Titration: 08/13/16 22:30 Dose: Infused Phenylephrine HCl 10 mg/ (Sodium Chloride) 251 mls @ 0 mls/hr IV TITR MARQUISE; Titrate PRN Reason: Protocol Stop: 10/09/16 15:14 Last Titration: 08/12/16 15:15 Dose: Infused Sodium Chloride (Nacl 0.9%) 1,000 mls @ 10 mls/hr IV .Q24H MARQUISE Stop: 10/15/16 15:01 Last Admin: 08/16/16 15:05 Dose: 10 mls/hr Lactobacillus Rhamnosus (Culturelle) 1 each PO DAILY MARQUISE Stop: 10/12/16 08:59 Last Admin: 08/17/16 08:45 Dose: 1 each Lactulose (Cephulac) 20 gm PO Q8HR MARQUISE Stop: 09/16/16 04:59 Last Admin: 08/17/16 05:00 Dose: 20 gm Miscellaneous (Clinical Monitoring) 1 ea MC DAILY PRN PRN Reason: RENAL Stop: 10/06/16 08:17 Miscellaneous (Probiotic Screen) 1 ea PRN PRN PRN Reason: PROTOCOL Stop: 10/11/16 14:12 Miscellaneous (Vancomycin Iv Per Pharmacy) 1 ea MC PRN MARQUISE Stop: 10/12/16 01:29 Morphine Sulfate (Morphine) 2 mg IM Q4HR PRN PRN Reason: Pain (Moderate) Stop: 10/15/16 13:36 Sodium Bicarbonate (Sodium Bicarb) 50 meq IVP BID MARQUISE Stop: 10/13/16 16:59 Last Admin: 08/17/16 08:45 Dose: 50 meq - Procedures Procedures: Procedures Procedure Code Date ARTERY-VEIN NONAUTOGRAFT 38791 06/22/16 BLOOD TRANSFUSION SERVICE 39339 06/22/16 BYPASS L BRACH ART TO UP ARM VEIN W NONAUT SUB, OPEN [id number] 06/22/16 FLUOROSCOPY OF SUP VENA CAVA USING [facility] CONTRAST, GUIDANCE [id number] 06/22/16 INSERTION OF INFUSION DEV INTO SUP VENA CAVA, PERC APPROACH [id number] 06/22/16 PLACE CATHETER IN VEIN 62159 06/22/16 TRANSFUSE NONAUT RED BLOOD CELLS IN PERIPH VEIN, PERC [id number] 06/22/16 Assessment/Plan - Problem List Patient Problems: All Active Problems Anemia (Acute) D64.9 ESRD (end stage renal disease) (Acute) ESRD (end stage renal disease) on dialysis (Acute) N18.6, Z99.2 ESRD (end stage renal disease) on dialysis (Acute) N18.6, Z99.2 HYPOTENSION (Acute) HYPOXEMIA (Acute) MEDICAL EVALUATION PER DR FRY (Acute) septic shock (Acute)
[2016-08-17] MEDS: Venelex 60gm Tube TP SCH (12:55)
--- NOTE | 2016-08-17 13:47 | Diagnostic Imaging Report ---
Portable chest x-ray HISTORY: Shortness of breath, vascular catheter placement Compared with a prior exam performed earlier in the day (0730 hours), a right-sided small caliber vascular catheter is seen with the tip extending into the region of the superior vena cava. The heart remains enlarged. No definite focal pulmonary processes. IMPRESSION: 1. Vascular catheter placement as noted above 2. No focal pulmonary processes 3. Cardiomegaly
--- NOTE | 2016-08-17 14:33 | General Progress Note ---
Subjective - Review of Systems Service Date: 08/17/16 Subjective: more awake, on NC Objective - Results Result Diagrams: 08/17/16 07:20 08/17/16 07:20 Recent Labs: Laboratory Last Values WBC 8.5 Th/cmm (4.8-10.8) D 08/17/16 07:20 RBC 3.64 Mil/cmm (4.30-5.70) L 08/17/16 07:20 Hgb 10.2 gm/dL (13.2-17.3) L 08/17/16 07:20 Hct 30.8 % (39.0-49.0) L 08/17/16 07:20 MCV 84.6 fl (80-99) 08/17/16 07:20 MCH 27.9 pg (26.0-30.0) 08/17/16 07:20 MCHC Differential 33.0 pg (28.0-36.0) 08/17/16 07:20 RDW 14.9 % (11.5-20.0) 08/17/16 07:20 Plt Count 88 Th/cmm (150-400) L 08/17/16 07:20 MPV 8.2 fl 08/17/16 07:20 Neutrophils % 56.8 % (40.0-80.0) 07/07/16 06:00 Band Neutrophils % 4 % (0-10) 08/17/16 07:20 Lymphocytes % 18.4 % (20.0-50.0) L 07/07/16 06:00 Monocytes % 13.8 % (2.0-10.0) H 07/07/16 06:00 Eosinophils % 11.0 % (0.0-5.0) H 07/07/16 06:00 Basophils % 0.0 % (0.0-2.0) 07/07/16 06:00 Neutrophils (Manual) 88 % (40-80) H 08/17/16 07:20 Lymphocytes 5 % (20-50) L 08/17/16 07:20 Monocytes 2 % (2-10) 08/17/16 07:20 Eosinophils 1 % (0-5) 08/17/16 07:20 Basophils 3 % (0-3) 08/04/16 08:33 Metamyelocytes 1 % (0-0) H 08/14/16 07:40 Myelocytes 1 % 07/14/16 16:00 Nucleated RBCs 1.0 % (0-0) H 08/15/16 09:30 Hypochromia 1+ 07/20/16 23:30 Platelet Estimate DECREASED PLATELETS (NORMAL) 08/17/16 07:20 Platelet Morphology NORMAL (NORMAL) 08/17/16 07:20 Polychromasia 1+ 07/20/16 23:30 Anisocytosis 1+ 08/16/16 05:16 Microcytosis 1+ 07/14/16 16:00 RBC Morph Micro Appear NORMAL (NORMAL) 08/17/16 07:20 PT 17.3 SECONDS (9.5-11.5) H 08/17/16 07:20 INR 1.62 (0.5-1.4) H 08/17/16 07:20 PTT (Actin FS) 37.7 SECONDS (26.0-38.0) 08/17/16 07:20 Specimen Source Arterial 08/17/16 08:05 Sample Site Right Radial 08/17/16 08:05 pH 7.35 (7.35-7.45) 08/17/16 08:05 pCO2 46.0 mmHg (35.0-45.0) H 08/17/16 08:05 pO2 97.0 mmHg (80.0-100.0) 08/17/16 08:05 HCO3 -0.6 mEq/L (20.0-26.0) L 08/17/16 08:05 Base Excess 24.5 mEq/L (-3.0-3.0) H 08/17/16 08:05 O2 Saturation 97.0 % (92.0-100.0) 08/17/16 08:05 Estuardo Test YES 08/17/16 08:05 Vent Rate 12 08/17/16 08:05 Inspired O2 30 08/17/16 08:05 Tidal Volume NA 08/17/16 08:05 PEEP NA 08/17/16 08:05 Pressure (ins/psv/peep) 6 08/17/16 08:05 Critical Value [email or web address] 08/17/16 08:05 Sodium 131 mEq/L (136-145) L 08/17/16 07:20 Potassium 3.8 mEq/L (3.5-5.1) 08/17/16 07:20 Chloride 98 mEq/L (98-107) 08/17/16 07:20 Carbon Dioxide 25.2 mEq/L (21.0-31.0) 08/17/16 07:20 Anion Gap 11.6 (7.0-16.0) 08/17/16 07:20 BUN 68 mg/dL (7-25) H 08/17/16 07:20 Creatinine 5.3 mg/dL (0.7-1.3) H* 08/17/16 07:20 Est GFR ( Amer) 14.9 ml/min (>90) 08/17/16 07:20 Est GFR (Non-Af Amer) 12.3 ml/min 08/17/16 07:20 BUN/Creatinine Ratio 12.8 08/17/16 07:20 Glucose 134 mg/dL (70-105) H 08/17/16 07:20 POC Glucose 111 MG/DL (70 - 105) H 08/15/16 08:03 Hemoglobin A1c % 4.8 % (4.0-6.0) 08/13/16 06:04 Whole Bld Lactic Acid 1.54 mmol/L (0.60-1.99) 08/13/16 06:04 Calcium 9.5 mg/dL (8.6-10.3) 08/17/16 07:20 Phosphorus 5.5 mg/dL (2.5-5.0) H 07/19/16 09:50 Magnesium 1.9 mg/dL (1.9-2.7) 08/04/16 05:45 Iron 42 ug/dL (38-169) 06/28/16 04:38 TIBC 269 ug/dL (250-450) 06/28/16 04:38 Iron Saturation 16 % (15-55) 06/28/16 04:38 Unsaturated IBC 227 ug/dL (111-343) 06/28/16 04:38 Ferritin 150 ng/mL (30-400) 06/26/16 08:30 Total Bilirubin 1.1 mg/dL (0.3-1.0) H 08/14/16 07:40 Direct Bilirubin 0.70 mg/dL (0.0-0.2) H 06/28/16 04:38 GGTP 14 IU/L (0-65) 06/28/16 04:38 AST 27 U/L (13-39) 08/14/16 07:40 ALT 19 U/L (7-52) 08/14/16 07:40 Alkaline Phosphatase 37 U/L (34-104) 08/14/16 07:40 Ammonia 73 umol/L (16-53) H 08/12/16 05:19 Troponin I < 0.01 ng/mL (0.01-0.05) L 06/22/16 19:33 B-Natriuretic Peptide 668.0 pg/mL (5.0-100.0) H 06/22/16 19:33 Total Protein 8.4 gm/dL (6.0-8.3) H 08/14/16 07:40 Albumin 3.0 gm/dL (4.2-5.5) L 08/14/16 07:40 Globulin 5.4 gm/dL 08/14/16 07:40 Albumin/Globulin Ratio 0.6 (1.0-1.8) L 08/14/16 07:40 Amylase 28 U/L (29-103) L 07/02/16 06:40 Lipase 31 U/L (11-82) 07/02/16 06:40 TSH 2.98 uIU/ml (0.34-5.60) 08/13/16 06:04 Urine Source CLEAN C 06/29/16 05:55 Urine Color YELLOW 06/29/16 05:55 Urine Clarity HAZY (CLEAR) 06/29/16 05:55 Urine pH 5.5 06/29/16 05:55 Ur Specific [place] 1.015 (1.005-1.030) 06/29/16 05:55 Urine Protein 30 mg/dL (NEGATIVE) H 06/29/16 05:55 Urine Glucose (UA) NEGATIVE mg/dL (NEGATIVE) 06/29/16 05:55 Urine Ketones NEGATIVE mg/dL (NEGATIVE) 06/29/16 05:55 Urine Blood NEGATIVE (NEGATIVE) 06/29/16 05:55 Urine Nitrate NEGATIVE (NEGATIVE) 06/29/16 05:55 Urine Bilirubin NEGATIVE (NEGATIVE) 06/29/16 05:55 Urine Urobilinogen 0.2 E.U./dL (0.2 - 1.0) 06/29/16 05:55 Ur Leukocyte Esterase TRACE (NEGATIVE) H 06/29/16 05:55 Urine RBC 0-2 /hpf (0-5) H 06/29/16 05:55 Urine WBC 6-10 /hpf (0-5) H 06/29/16 05:55 Ur Epithelial Cells FEW /lpf (FEW) 06/29/16 05:55 Urine Bacteria MANY /hpf (NONE SEEN) 06/29/16 05:55 Stool Occult Blood POSITIVE (NEGATIVE) 08/17/16 11:00 Stool Leukocyte NO WBC SEEN 08/17/16 11:00 Gentamicin Trough ug/ml (0.2-2.0) 08/12/16 05:19 Random Vancomycin 24.7 ug/mL (5.0-40.0) 08/16/16 05:16 RPR NONREACTIVE (NONREACTIVE) 06/22/16 19:33 Hepatitis A IgM Ab Negative (Negative) 06/29/16 05:49 Hep Bs Antigen Negative (Negative) 06/29/16 05:49 Hep B Core IgM Ab Negative (Negative) 06/29/16 05:49 Hepatitis C Antibody >11.0 s/co ratio (0.0-0.9) H 06/29/16 05:49 Blood Type A POSITIVE 08/10/16 21:07 Antibody Screen NEGATIVE 08/10/16 21:07 Crossmatch See Detail 08/10/16 21:07 - Physical Exam Vitals and I&O: Vital Signs Temp 97.7 F 08/17/16 14:00 Pulse 107 08/17/16 14:00 Resp 14 08/17/16 14:00 BP 113/73 08/17/16 14:00 Pulse Ox 95 08/17/16 14:00 Intake & Output 08/16/16 08/17/16 08/17/16 18:59 06:59 18:59 Intake Total 800 100 650 Output Total 2600 0 Balance -1800 100 650 Intake: Oral 800 100 650 Output: Urine 0 Stool 0 Hemodialysis 2600 Other: # Bowel Movements 0 1 Active Medications: Current Medications Acetaminophen (Tylenol) 650 mg PO Q6H PRN PRN Reason: temperature above 100F Stop: 09/28/16 16:14 Last Admin: 07/30/16 16:27 Dose: 650 mg Calamine/Phenol (Calmoseptine) 1 appl TP QID MARQUISE Stop: 10/14/16 12:59 Last Admin: 08/17/16 12:09 Dose: 1 appl Diphenhydramine HCl (Benadryl 50 Mg/Ml) 50 mg IM Q8HR PRN PRN Reason: Agitation Stop: 08/25/16 12:10 Last Admin: 08/14/16 22:33 Dose: 50 mg Diphenhydramine HCl (Benadryl 50 Mg/Ml) 25 mg IVP Q6HR PRN PRN Reason: itching Stop: 10/11/16 03:12 Last Admin: 08/14/16 11:25 Dose: 25 mg Docusate Sodium (Colace) 100 mg PO Q12HR MARQUISE Stop: 09/16/16 08:59 Last Admin: 08/17/16 08:45 Dose: Not Given Haloperidol Lactate (Haldol) 5 mg IM Q8HR PRN PRN Reason: Agitation Stop: 08/25/16 12:10 Last Admin: 08/14/16 13:15 Dose: 5 mg Hydrocortisone Sodium Succinate (Solu-Cortef) 50 mg IVP Q8H MARQUISE Stop: 10/09/16 15:59 Last Admin: 08/17/16 08:20 Dose: 50 mg Phenylephrine HCl 10 mg/ (Sodium Chloride) 251 mls @ 0 mls/hr IV TITR MARQUISE; Titrate PRN Reason: Protocol Stop: 10/09/16 15:14 Last Titration: 08/12/16 15:15 Dose: Infused Sodium Chloride (Nacl 0.9%) 1,000 mls @ 10 mls/hr IV .Q24H MARQUISE Stop: 10/15/16 15:01 Last Admin: 08/16/16 15:05 Dose: 10 mls/hr Vancomycin HCl 500 mg/ Sodium (Chloride) 100 mls @ 100 mls/hr IV ONCE ONE Stop: 08/17/16 16:59 Lactobacillus Rhamnosus (Culturelle) 1 each PO DAILY MARQUISE Stop: 10/12/16 08:59 Last Admin: 08/17/16 08:45 Dose: 1 each Lactulose (Cephulac) 20 gm PO Q8HR MARQUISE Stop: 09/16/16 04:59 Last Admin: 08/17/16 12:09 Dose: Not Given Miscellaneous (Clinical Monitoring) 1 ea MC DAILY PRN PRN Reason: RENAL Stop: 10/06/16 08:17 Miscellaneous (Probiotic Screen) 1 ea MC PRN PRN PRN Reason: PROTOCOL Stop: 10/11/16 14:12 Miscellaneous (Vancomycin Iv Per Pharmacy) 1 ea MC PRN MARQUISE Stop: 10/12/16 01:29 Morphine Sulfate (Morphine) 2 mg IM Q4HR PRN PRN Reason: Pain (Moderate) Stop: 10/15/16 13:36 Sodium Bicarbonate (Sodium Bicarb) 50 meq IVP BID MARQUISE Stop: 10/13/16 16:59 Last Admin: 08/17/16 08:45 Dose: 50 meq General: Alert, No acute distress, Mild distress, Other (drowsy) HEENT: Atraumatic, Mucous membr. moist/pink Neck: Supple, +2 carotid pulse wo bruit Cardiovascular: Regular rate, Normal S1, Normal S2 Lungs: Other (rhonchi) Abdomen: Bowel sounds, Soft Extremities: Edema ((+) 3 bipedal edema) Neurological: Sensation intact Skin: no Rash - Procedures Procedures: Procedures Procedure Code Date ARTERY-VEIN NONAUTOGRAFT 27006 06/22/16 BLOOD TRANSFUSION SERVICE 60077 06/22/16 BYPASS L BRACH ART TO UP ARM VEIN W NONAUT SUB, OPEN [id number] 06/22/16 FLUOROSCOPY OF SUP VENA CAVA USING [facility] CONTRAST, GUIDANCE [id number] 06/22/16 INSERTION OF INFUSION DEV INTO SUP VENA CAVA, PERC APPROACH [id number] 06/22/[address] PL[address] CATHETER IN VEIN 25499 06/22/16 TRANSFUSE NONAUT RED BLOOD CELLS IN PERIPH VEIN, PERC [id number] 06/22/16 Assessment/Plan - Problem List Patient Problems: All Active Problems Anemia (Acute) D64.9 ESRD (end stage renal disease) (Acute) ESRD (end stage renal disease) on dialysis (Acute) N18.6, Z99.2 ESRD (end stage renal disease) on dialysis (Acute) N18.6, Z99.2 HYPOTENSION (Acute) HYPOXEMIA (Acute) MEDICAL EVALUATION PER DR FRY (Acute) septic shock (Acute) - Assessment Assessment: septic shock (better) esrd on hd persistent cellulitis b/l lower ext acute on chronic anemia possible gi bleed ohs chronic a. fib hypothyroid anasarca functional quadriplegia chronic venous stasis dermatitis acute decomp psychosis s/p left avg G (+) cocci in clusters septicemia Resp acidosis on NC - Plan Plan: Lab - Result Diagrams 07/19/16 09:50 Lab - Result Diagrams 07/22/16 05:21 Lab - Result Diagrams 07/24/16 05:00 Lab - Result Diagrams Lab - Result Diagrams 08/04/16 08:33 Lab - Result Diagrams 08/05/16 05:00 08/04/16 05:45 08/04/16 05:45 07/28/16 05:30 07/28/16 05:30 07/24/16 05:00 07/20/16 05:50 07/19/16 09:50 latest hgb/hct were 10.2/30.8 developed septic shock, off pressors culture grew G (+) cocci, WBC down 8.5 continue ABx transfuse as necessary f/u electrolytes, cbc new right Anton cath possible dc tonite Lab - Result Diagrams 07/19/16 09:50 07/20/16 05:50 Lab - Result Diagrams 07/21/16 06:16 07/20/16 05:50 Lab - Result Diagrams 07/26/16 11:05 07/24/16 05:00 Lab - Result Diagrams 07/29/16 05:55 07/28/16 05:30 Lab - Result Diagrams 08/12/16 05:19 08/12/16 05:19 Lab - Result Diagrams 08/17/16 07:20 08/17/16 07:20
[2016-08-17] MEDS: Morphine Sulfate 2 mg/mL 1mL Syr IM PRN (15:30)
[2016-08-17] MEDS ORDERED: Vancomycin HCl 500 MG in Sodium Chloride 0.9% 100 ML IV ONE (16:00)
[2016-08-17] MEDS: Sodium Chloride 0.9% 1,000 ML IV SCH (16:25)
[2016-08-18] MEDS: Hydrocortisone Sodium Succ 100 mg Vial IVP SCH ×3 (00:08→23:44)
[2016-08-18] MEDS: Morphine Sulfate 2 mg/mL 1mL Syr IM PRN ×2 (05:13→19:04)
[2016-08-18 05:32] LABS: HEMATOCRIT 28.6 % (39.0-49.0); HEMOGLOBIN 9.7 gm/dL (13.2-17.3); MEAN CELL VOLUME 83.8 fl (80-99); MEAN CORPUSCULAR HEMOGLOBIN 28.4 pg (26.0-30.0); MEAN CORPUSCULAR HGB CONC 33.9 pg (28.0-36.0); MEAN PLATELET VOLUME 8.2 fl; PLATELET COUNT 85 Th/cmm (150-400); RED BLOOD COUNT 3.41 Mil/cmm (4.30-5.70); RED CELL DISTRIBUTION WIDTH 14.6 % (11.5-20.0)
[2016-08-18 05:48] LABS: ALB/GLOB RATIO 0.6 (1.0-1.8); ANION GAP 11.3 (7.0-16.0); BUN/CREATININE RATIO 13.2; CALCIUM SERUM 9.5 mg/dL (8.6-10.3); CARBON DIOXIDE 26.6 mEq/L (21.0-31.0); POTASSIUM SERUM 3.9 mEq/L (3.5-5.1)
[2016-08-18 05:51] LABS: CREATININE - SERUM 5.6 mg/dL (0.7-1.3)
[2016-08-18 05:59] LABS: BAND NEUTROPHILE 2 % (0-10); EOSINOPHIL 1 % (0-5); NEUTROPHILS 90 % (40-80); PLATELET ESTIMATE SLIGHT DECREASED (NORMAL); TOTAL CELLS COUNTED 100
[2016-08-18] MEDS: Sodium Chloride 0.9% 1,000 ML IV SCH (08:30)
[2016-08-18] MEDS: Sodium Bicarbonate 8.4% 50mEq PFS IVP SCH ×2 (09:00→17:00)
[2016-08-18] MEDS: Lactulose 10 Gm/15 mL 30mL UDC PO SCH ×2 (09:00→17:00)
[2016-08-18] MEDS: Lactobacillus Rhamnosus 10 Billion CFU Capsule PO SCH (09:00)
[2016-08-18] MEDS: Venelex 60gm Tube TP SCH (11:28)
[2016-08-18] MEDS: Menthol/Zinc Oxide Oint 113gm Tube TP SCH ×4 (11:29→21:22)
--- NOTE | 2016-08-18 23:37 | Progress Notes ---
SUBJECTIVE: The patient was seen in his bed. The patient is still in ICU, but currently on telemetry status. The patient is more awake and alert and no obvious signs of respiratory distress. OBJECTIVE: HEENT: Head is atraumatic and normocephalic. Eyes: Bilateral pupils are equally round and reactive to light and accommodation. NECK: Supple. No JVD. CARDIOVASCULAR: S1 and S2 heard, irregularly. PULMONARY: Mild inspiratory wheezing. GASTROINTESTINAL: Soft and nontender without guarding. The patient is obese. MUSCULOSKELETAL: Bilateral lower extremity edema without clubbing. ASSESSMENT: 1. Sepsis. 2. Respiratory failure. 3. End-stage renal disease, on hemodialysis. 4. Atrial fibrillation. 5. Hypothyroidism. 6. Anemia. 7. Obesity. 8. Chronic bilateral lower extremity cellulitis. PLAN: The patient will be monitored in telemetry unit with continuous oxygen via nasal cannula as the patient's tolerance and also pending discharge to [facility]. The patient is ready for discharge once ____ is ready for transportation. JOB# [id number]
--- NOTE | 2016-08-18 23:49 | Infectious Disease Prog Note ---
Infectious Disease Subjective - Review of Systems Service Date: 08/18/16 Subjective: Patient went into septic shock, hypotensive . Off levophed low dose. Overall, patient is doing well. No diarrhea. Infectious Disease Objective - Results Result Diagrams: 08/18/16 05:18 08/18/16 05:18 Recent Labs: Laboratory Last Values WBC 9.0 Th/cmm (4.8-10.8) 08/18/16 05:18 RBC 3.41 Mil/cmm (4.30-5.70) L 08/18/16 05:18 Hgb 9.7 gm/dL (13.2-17.3) L 08/18/16 05:18 Hct 28.6 % (39.0-49.0) L 08/18/16 05:18 MCV 83.8 fl (80-99) 08/18/16 05:18 MCH 28.4 pg (26.0-30.0) 08/18/16 05:18 MCHC Differential 33.9 pg (28.0-36.0) 08/18/16 05:18 RDW 14.6 % (11.5-20.0) 08/18/16 05:18 Plt Count 85 Th/cmm (150-400) L 08/18/16 05:18 MPV 8.2 fl 08/18/16 05:18 Neutrophils % 56.8 % (40.0-80.0) 07/07/16 06:00 Band Neutrophils % 2 % (0-10) 08/18/16 05:18 Lymphocytes % 18.4 % (20.0-50.0) L 07/07/16 06:00 Monocytes % 13.8 % (2.0-10.0) H 07/07/16 06:00 Eosinophils % 11.0 % (0.0-5.0) H 07/07/16 06:00 Basophils % 0.0 % (0.0-2.0) 07/07/16 06:00 Neutrophils (Manual) 90 % (40-80) H 08/18/16 05:18 Lymphocytes 4 % (20-50) L 08/18/16 05:18 Monocytes 3 % (2-10) 08/18/16 05:18 Eosinophils 1 % (0-5) 08/18/16 05:18 Basophils 3 % (0-3) 08/04/16 08:33 Metamyelocytes 1 % (0-0) H 08/14/16 07:40 Myelocytes 1 % 07/14/16 16:00 Nucleated RBCs 1.0 % (0-0) H 08/15/16 09:30 Hypochromia 1+ 07/20/16 23:30 Platelet Estimate SLIGHT DECREASED (NORMAL) 08/18/16 05:18 Platelet Morphology NORMAL (NORMAL) 08/17/16 07:20 Polychromasia 1+ 07/20/16 23:30 Anisocytosis 1+ 08/16/16 05:16 Microcytosis 1+ 07/14/16 16:00 RBC Morph Micro Appear NORMAL (NORMAL) 08/17/16 07:20 PT 17.3 SECONDS (9.5-11.5) H 08/17/16 07:20 INR 1.62 (0.5-1.4) H 08/17/16 07:20 PTT (Actin FS) 37.7 SECONDS (26.0-38.0) 08/17/16 07:20 Specimen Source Arterial 08/17/16 08:05 Sample Site Right Radial 08/17/16 08:05 pH 7.35 (7.35-7.45) 08/17/16 08:05 pCO2 46.0 mmHg (35.0-45.0) H 08/17/16 08:05 pO2 97.0 mmHg (80.0-100.0) 08/17/16 08:05 HCO3 -0.6 mEq/L (20.0-26.0) L 08/17/16 08:05 Base Excess 24.5 mEq/L (-3.0-3.0) H 08/17/16 08:05 O2 Saturation 97.0 % (92.0-100.0) 08/17/16 08:05 Estuardo Test YES 08/17/16 08:05 Vent Rate 12 08/17/16 08:05 Inspired O2 30 08/17/16 08:05 Tidal Volume NA 08/17/16 08:05 PEEP NA 08/17/16 08:05 Pressure (ins/psv/peep) 6 08/17/16 08:05 Critical Value [email or web address] 08/17/16 08:05 Sodium 132 mEq/L (136-145) L 08/18/16 05:18 Potassium 3.9 mEq/L (3.5-5.1) 08/18/16 05:18 Chloride 98 mEq/L (98-107) 08/18/16 05:18 Carbon Dioxide 26.6 mEq/L (21.0-31.0) 08/18/16 05:18 Anion Gap 11.3 (7.0-16.0) 08/18/16 05:18 BUN 74 mg/dL (7-25) H 08/18/16 05:18 Creatinine 5.6 mg/dL (0.7-1.3) H* 08/18/16 05:18 Est GFR ( Amer) 14.0 ml/min (>90) 08/18/16 05:18 Est GFR (Non-Af Amer) 11.6 ml/min 08/18/16 05:18 BUN/Creatinine Ratio 13.2 08/18/16 05:18 Glucose 151 mg/dL (70-105) H 08/18/16 05:18 POC Glucose 111 MG/DL (70 - 105) H 08/15/16 08:03 Hemoglobin A1c % 4.8 % (4.0-6.0) 08/13/16 06:04 Whole Bld Lactic Acid 1.54 mmol/L (0.60-1.99) 08/13/16 06:04 Calcium 9.5 mg/dL (8.6-10.3) 08/18/16 05:18 Phosphorus 5.5 mg/dL (2.5-5.0) H 07/19/16 09:50 Magnesium 1.9 mg/dL (1.9-2.7) 08/04/16 05:45 Iron 42 ug/dL (38-169) 06/28/16 04:38 TIBC 269 ug/dL (250-450) 06/28/16 04:38 Iron Saturation 16 % (15-55) 06/28/16 04:38 Unsaturated IBC 227 ug/dL (111-343) 06/28/16 04:38 Ferritin 150 ng/mL (30-400) 06/26/16 08:30 Total Bilirubin 1.0 mg/dL (0.3-1.0) 08/18/16 05:18 Direct Bilirubin 0.70 mg/dL (0.0-0.2) H 06/28/16 04:38 GGTP 14 IU/L (0-65) 06/28/16 04:38 AST 16 U/L (13-39) 08/18/16 05:18 ALT 11 U/L (7-52) 08/18/16 05:18 Alkaline Phosphatase 39 U/L (34-104) 08/18/16 05:18 Ammonia 73 umol/L (16-53) H 08/12/16 05:19 Troponin I < 0.01 ng/mL (0.01-0.05) L 06/22/16 19:33 B-Natriuretic Peptide 668.0 pg/mL (5.0-100.0) H 06/22/16 19:33 Total Protein 7.9 gm/dL (6.0-8.3) 08/18/16 05:18 Albumin 2.8 gm/dL (4.2-5.5) L 08/18/16 05:18 Globulin 5.1 gm/dL 08/18/16 05:18 Albumin/Globulin Ratio 0.6 (1.0-1.8) L 08/18/16 05:18 Amylase 28 U/L (29-103) L 07/02/16 06:40 Lipase 31 U/L (11-82) 07/02/16 06:40 TSH 2.98 uIU/ml (0.34-5.60) 08/13/16 06:04 Urine Source CLEAN C 06/29/16 05:55 Urine Color YELLOW 06/29/16 05:55 Urine Clarity HAZY (CLEAR) 06/29/16 05:55 Urine pH 5.5 06/29/16 05:55 Ur Specific [place] 1.015 (1.005-1.030) 06/29/16 05:55 Urine Protein 30 mg/dL (NEGATIVE) H 06/29/16 05:55 Urine Glucose (UA) NEGATIVE mg/dL (NEGATIVE) 06/29/16 05:55 Urine Ketones NEGATIVE mg/dL (NEGATIVE) 06/29/16 05:55 Urine Blood NEGATIVE (NEGATIVE) 06/29/16 05:55 Urine Nitrate NEGATIVE (NEGATIVE) 06/29/16 05:55 Urine Bilirubin NEGATIVE (NEGATIVE) 06/29/16 05:55 Urine Urobilinogen 0.2 E.U./dL (0.2 - 1.0) 06/29/16 05:55 Ur Leukocyte Esterase TRACE (NEGATIVE) H 06/29/16 05:55 Urine RBC 0-2 /hpf (0-5) H 06/29/16 05:55 Urine WBC 6-10 /hpf (0-5) H 06/29/16 05:55 Ur Epithelial Cells FEW /lpf (FEW) 06/29/16 05:55 Urine Bacteria MANY /hpf (NONE SEEN) 06/29/16 05:55 Stool Occult Blood POSITIVE (NEGATIVE) 08/17/16 11:00 Stool Leukocyte NO WBC SEEN 08/17/16 11:00 Gentamicin Trough ug/ml (0.2-2.0) 08/12/16 05:19 Random Vancomycin 24.7 ug/mL (5.0-40.0) 08/16/16 05:16 RPR NONREACTIVE (NONREACTIVE) 06/22/16 19:33 Hepatitis A IgM Ab Negative (Negative) 06/29/16 05:49 Hep Bs Antigen Negative (Negative) 06/29/16 05:49 Hep B Core IgM Ab Negative (Negative) 06/29/16 05:49 Hepatitis C Antibody >11.0 s/co ratio (0.0-0.9) H 06/29/16 05:49 Blood Type A POSITIVE 08/10/16 21:07 Antibody Screen NEGATIVE 08/10/16 21:07 Crossmatch See Detail 08/10/16 21:07 - Physical Exam Vitals and I&O: Vital Signs Temp 98.2 F 08/18/16 20:00 Pulse 99 08/18/16 22:00 Resp 17 08/18/16 22:00 BP 110/64 08/18/16 22:00 Pulse Ox 100 08/18/16 22:00 Intake & Output 08/18/16 08/18/16 08/19/16 06:59 18:59 06:59 Intake Total 600 Output Total 0 Balance 600 Intake: Oral 600 Output: Urine 0 Other: # Bowel Movements 0 Active Medications: Current Medications Acetaminophen (Tylenol) 650 mg PO Q6H PRN PRN Reason: temperature above 100F Stop: 09/28/16 16:14 Last Admin: 07/30/16 16:27 Dose: 650 mg Calamine/Phenol (Calmoseptine) 1 appl TP QID MARQUISE Stop: 10/14/16 12:59 Last Admin: 04/01/17 21:22 Dose: 1 appl Diphenhydramine HCl (Benadryl 50 Mg/Ml) 50 mg IM Q8HR PRN PRN Reason: Agitation Stop: 08/25/16 12:10 Last Admin: 08/14/16 22:33 Dose: 50 mg Diphenhydramine HCl (Benadryl 50 Mg/Ml) 25 mg IVP Q6HR PRN PRN Reason: itching Stop: 10/11/16 03:12 Last Admin: 08/14/16 11:25 Dose: 25 mg Docusate Sodium (Colace) 100 mg PO Q12HR MARQUISE Stop: 09/16/16 08:59 Last Admin: 08/18/16 21:22 Dose: 100 mg Haloperidol Lactate (Haldol) 5 mg IM Q8HR PRN PRN Reason: Agitation Stop: 08/25/16 12:10 Last Admin: 08/14/16 13:15 Dose: 5 mg Hydrocortisone Sodium Succinate (Solu-Cortef) 50 mg IVP Q8H MARQUISE Stop: 10/09/16 15:59 Last Admin: 08/18/16 23:44 Dose: 50 mg Sodium Chloride (Nacl 0.9%) 1,000 mls @ 10 mls/hr IV .Q24H MARQUISE Stop: 10/15/16 15:01 Last Admin: 08/17/16 16:25 Dose: 10 mls/hr Lactobacillus Rhamnosus (Culturelle) 1 each PO DAILY MARQUISE Stop: 10/12/16 08:59 Last Admin: 08/18/16 09:00 Dose: Not Given Lactulose (Cephulac) 20 gm PO BID MARQUISE Stop: 10/17/16 08:59 Last Admin: 08/18/16 09:00 Dose: Not Given Metronidazole (Flagyl) 500 mg PO TID MARQUISE Stop: 08/31/16 21:01 Last Admin: 08/18/16 21:22 Dose: 500 mg Miscellaneous (Clinical Monitoring) 1 ea MC DAILY PRN PRN Reason: RENAL Stop: 10/06/16 08:17 Miscellaneous (Probiotic Screen) 1 ea MC PRN PRN PRN Reason: PROTOCOL Stop: 10/11/16 14:12 Miscellaneous (Vancomycin Iv Per Pharmacy) 1 ea MC PRN MARQUISE Stop: 10/12/16 01:29 Morphine Sulfate (Morphine) 2 mg IM Q4HR PRN PRN Reason: Pain (Moderate) Stop: 10/15/16 13:36 Last Admin: 08/18/16 19:04 Dose: 2 mg Sodium Bicarbonate (Sodium Bicarb) 50 meq IVP BID MARQUISE Stop: 10/13/16 16:59 Last Admin: 08/18/16 09:00 Dose: Not Given General: no acute distress, other (Obese) HEENT: atraumatic, normocephalic, PERRLA Neck: supple, no thyromegaly Cardiovascular: S1S2, regular Lungs: clear to auscultation bilaterally, clear to percussion Abdomen: soft, bowel sounds, obese, no tender, no distended Extremities: no cyanosis, no clubbing, no edema Neurological: awake, alert, oriented Skin: intact - Procedures Procedures: Procedures Procedure Code Date ARTERY-VEIN NONAUTOGRAFT 38591 06/22/16 BLOOD TRANSFUSION SERVICE 70498 06/22/16 BYPASS L BRACH ART TO UP ARM VEIN W NONAUT SUB, OPEN [id number] 06/22/16 FLUOROSCOPY OF SUP VENA CAVA USING [facility] CONTRAST, GUIDANCE [id number] 06/22/16 INSERTION OF INFUSION DEV INTO SUP VENA CAVA, PERC APPROACH [id number] 06/22/[address] PLACE CATHETER IN VEIN 20636 06/22/16 TRANSFUSE NONAUT RED BLOOD CELLS IN PERIPH VEIN, PERC [id number] 06/22/16 Infectious Disease Assmt/Plan - Problem List Patient Problems: All Active Problems Anemia (Acute) D64.9 ESRD (end stage renal disease) (Acute) ESRD (end stage renal disease) on dialysis (Acute) N18.6, Z99.2 ESRD (end stage renal disease) on dialysis (Acute) N18.6, Z99.2 HYPOTENSION (Acute) HYPOXEMIA (Acute) MEDICAL EVALUATION PER DR FRY (Acute) septic shock (Acute) - Assessment Assessment: 1. Septic shock. resolved. likely line sepsis. MRSA sepsis. 3/4 positive. 2. Pneumonia. 3. CKD 5 on HD. 4. Morbid obesity. 5. hep C. 6. Cellulitis of legs. improved. treated. 7. Lymphedema of legs. 8. CHF. 9. CDAC - Plan Plan: Continue vanco IV and flagyl.
[2016-08-19] MEDS: Hydrocortisone Sodium Succ 100 mg Vial IVP SCH ×3 (08:26→17:43)
[2016-08-19] MEDS: Lactobacillus Rhamnosus 10 Billion CFU Capsule PO SCH (08:30)
[2016-08-19] MEDS: Sodium Chloride 0.9% 1,000 ML IV SCH (08:31)
[2016-08-19] MEDS: Sodium Bicarbonate 8.4% 50mEq PFS IVP SCH ×2 (08:32→17:45)
[2016-08-19] MEDS: Lactulose 10 Gm/15 mL 30mL UDC PO SCH ×2 (08:44→17:00)
[2016-08-19] MEDS: Venelex 60gm Tube TP SCH (09:00)
[2016-08-19] MEDS: Menthol/Zinc Oxide Oint 113gm Tube TP SCH ×4 (11:36→20:55)
--- NOTE | 2016-08-19 17:01 | Cardiology ---
Patient of Dr. Valadez. M-MODE ECHOCARDIOGRAM: Mitral valve, anterior leaflet of mitral valve shows normal excursion, EF velocity. Posterior leaflet of mitral valve shows normal excursion. Left ventricular posterior wall shows increased thickness, normal excursion. Interventricular septum shows increased thickness, normal excursion, hypertrophy of the left ventricle, ejection fraction 64%. Left atrium normal. Aortic root shows normal dimension, normal excursion of aortic leaflets. CONCLUSION: Hypertrophy of the left ventricle, ejection fraction 64%. 2D ECHO: Long axis view showed normal sized left ventricle with hypertrophy of the left ventricle. Left atrium normal. Aortic root shows normal dimension, normal excursion of aortic leaflets. Short axis view of mitral valve normal. Short axis aortic valve normal. Apical 4-chamber view showed normal sized left ventricle with hypertrophy of the left ventricle. Left atrium normal. Right ventricular cavity, right atrium normal, no pericardial effusion. Ejection fraction 64%. CONCLUSION: Hypertrophy of the left ventricle, ejection fraction 64%. Doppler study shows mild aortic regurgitation, moderate tricuspid regurgitation. Right ventricular systolic pressure of 43 mmHg with mild pulmonary hypertension. [facility]# [id number]
[2016-08-19] MEDS: Morphine Sulfate 2 mg/mL 1mL Syr IM PRN (19:50)
[2016-08-20] MEDS: Hydrocortisone Sodium Succ 100 mg Vial IVP SCH ×3 (00:32→15:36)
[2016-08-20] MEDS: Sodium Chloride 0.9% 1,000 ML IV SCH (08:31)
[2016-08-20 08:40] LABS: pH 7.33 (7.35-7.45)
[2016-08-20 08:43] LABS: HCO3 26.5 mEq/L (20.0-26.0)
[2016-08-20 08:44] LABS: ABG SOURCE Arterial; ALLEN TEST POSITIVE
[2016-08-20 08:45] LABS: FIO2 32
[2016-08-20] MEDS: Lactobacillus Rhamnosus 10 Billion CFU Capsule PO SCH (08:56)
[2016-08-20] MEDS: Sodium Bicarbonate 8.4% 50mEq PFS IVP SCH ×2 (08:56→16:30)
[2016-08-20] MEDS: Morphine Sulfate 2 mg/mL 1mL Syr IV PRN ×2 (11:48→16:29)
--- NOTE | 2016-08-20 12:56 | General Progress Note ---
Subjective - Review of Systems Service Date: 08/20/16 Subjective: obtunded, on BIPAP Objective - Results Result Diagrams: 08/18/16 05:18 08/18/16 05:18 Recent Labs: Laboratory Last Values WBC 9.0 Th/cmm (4.8-10.8) 08/18/16 05:18 RBC 3.41 Mil/cmm (4.30-5.70) L 08/18/16 05:18 Hgb 9.7 gm/dL (13.2-17.3) L 08/18/16 05:18 Hct 28.6 % (39.0-49.0) L 08/18/16 05:18 MCV 83.8 fl (80-99) 08/18/16 05:18 MCH 28.4 pg (26.0-30.0) 08/18/16 05:18 MCHC Differential 33.9 pg (28.0-36.0) 08/18/16 05:18 RDW 14.6 % (11.5-20.0) 08/18/16 05:18 Plt Count 85 Th/cmm (150-400) L 08/18/16 05:18 MPV 8.2 fl 08/18/16 05:18 Neutrophils % 56.8 % (40.0-80.0) 07/07/16 06:00 Band Neutrophils % 2 % (0-10) 08/18/16 05:18 Lymphocytes % 18.4 % (20.0-50.0) L 07/07/16 06:00 Monocytes % 13.8 % (2.0-10.0) H 07/07/16 06:00 Eosinophils % 11.0 % (0.0-5.0) H 07/07/16 06:00 Basophils % 0.0 % (0.0-2.0) 07/07/16 06:00 Neutrophils (Manual) 90 % (40-80) H 08/18/16 05:18 Lymphocytes 4 % (20-50) L 08/18/16 05:18 Monocytes 3 % (2-10) 08/18/16 05:18 Eosinophils 1 % (0-5) 08/18/16 05:18 Basophils 3 % (0-3) 08/04/16 08:33 Metamyelocytes 1 % (0-0) H 08/14/16 07:40 Myelocytes 1 % 07/14/16 16:00 Nucleated RBCs 1.0 % (0-0) H 08/15/16 09:30 Hypochromia 1+ 07/20/16 23:30 Platelet Estimate SLIGHT DECREASED (NORMAL) 08/18/16 05:18 Platelet Morphology NORMAL (NORMAL) 08/17/16 07:20 Polychromasia 1+ 07/20/16 23:30 Anisocytosis 1+ 08/16/16 05:16 Microcytosis 1+ 07/14/16 16:00 RBC Morph Micro Appear NORMAL (NORMAL) 08/17/16 07:20 PT 17.3 SECONDS (9.5-11.5) H 08/17/16 07:20 INR 1.62 (0.5-1.4) H 08/17/16 07:20 PTT (Actin FS) 37.7 SECONDS (26.0-38.0) 08/17/16 07:20 Specimen Source Arterial 08/20/16 08:15 Sample Site Right Radial 08/20/16 08:15 pH 7.33 (7.35-7.45) L 08/20/16 08:15 pCO2 55.0 mmHg (35.0-45.0) H 08/20/16 08:15 pO2 92.0 mmHg (80.0-100.0) 08/20/16 08:15 HCO3 26.5 mEq/L (20.0-26.0) H 08/20/16 08:15 Base Excess 2.0 mEq/L (-3.0-3.0) 08/20/16 08:15 O2 Saturation 97.0 % (92.0-100.0) 08/20/16 08:15 Estuardo Test POSITIVE 08/20/16 08:15 Vent Rate NA 08/20/16 08:15 Inspired O2 32 08/20/16 08:15 Tidal Volume NA 08/20/16 08:15 PEEP NA 08/20/16 08:15 Pressure (ins/psv/peep) NA 08/20/16 08:15 Critical Value CSILVA 08/20/16 08:15 Sodium 132 mEq/L (136-145) L 08/18/16 05:18 Potassium 3.9 mEq/L (3.5-5.1) 08/18/16 05:18 Chloride 98 mEq/L (98-107) 08/18/16 05:18 Carbon Dioxide 26.6 mEq/L (21.0-31.0) 08/18/16 05:18 Anion Gap 11.3 (7.0-16.0) 08/18/16 05:18 BUN 74 mg/dL (7-25) H 08/18/16 05:18 Creatinine 5.6 mg/dL (0.7-1.3) H* 08/18/16 05:18 Est GFR ( Amer) 14.0 ml/min (>90) 08/18/16 05:18 Est GFR (Non-Af Amer) 11.6 ml/min 08/18/16 05:18 BUN/Creatinine Ratio 13.2 08/18/16 05:18 Glucose 151 mg/dL (70-105) H 08/18/16 05:18 POC Glucose 111 MG/DL (70 - 105) H 08/15/16 08:03 Hemoglobin A1c % 4.8 % (4.0-6.0) 08/13/16 06:04 Whole Bld Lactic Acid 1.54 mmol/L (0.60-1.99) 08/13/16 06:04 Calcium 9.5 mg/dL (8.6-10.3) 08/18/16 05:18 Phosphorus 5.5 mg/dL (2.5-5.0) H 07/19/16 09:50 Magnesium 1.9 mg/dL (1.9-2.7) 08/04/16 05:45 Iron 42 ug/dL (38-169) 06/28/16 04:38 TIBC 269 ug/dL (250-450) 06/28/16 04:38 Iron Saturation 16 % (15-55) 06/28/16 04:38 Unsaturated IBC 227 ug/dL (111-343) 06/28/16 04:38 Ferritin 150 ng/mL (30-400) 06/26/16 08:30 Total Bilirubin 1.0 mg/dL (0.3-1.0) 08/18/16 05:18 Direct Bilirubin 0.70 mg/dL (0.0-0.2) H 06/28/16 04:38 GGTP 14 IU/L (0-65) 06/28/16 04:38 AST 16 U/L (13-39) 08/18/16 05:18 ALT 11 U/L (7-52) 08/18/16 05:18 Alkaline Phosphatase 39 U/L (34-104) 08/18/16 05:18 Ammonia 73 umol/L (16-53) H 08/12/16 05:19 Troponin I < 0.01 ng/mL (0.01-0.05) L 06/22/16 19:33 B-Natriuretic Peptide 668.0 pg/mL (5.0-100.0) H 06/22/16 19:33 Total Protein 7.9 gm/dL (6.0-8.3) 08/18/16 05:18 Albumin 2.8 gm/dL (4.2-5.5) L 08/18/16 05:18 Globulin 5.1 gm/dL 08/18/16 05:18 Albumin/Globulin Ratio 0.6 (1.0-1.8) L 08/18/16 05:18 Amylase 28 U/L (29-103) L 07/02/16 06:40 Lipase 31 U/L (11-82) 07/02/16 06:40 TSH 2.98 uIU/ml (0.34-5.60) 08/13/16 06:04 Urine Source CLEAN C 06/29/16 05:55 Urine Color YELLOW 06/29/16 05:55 Urine Clarity HAZY (CLEAR) 06/29/16 05:55 Urine pH 5.5 06/29/16 05:55 Ur Specific [place] 1.015 (1.005-1.030) 06/29/16 05:55 Urine Protein 30 mg/dL (NEGATIVE) H 06/29/16 05:55 Urine Glucose (UA) NEGATIVE mg/dL (NEGATIVE) 06/29/16 05:55 Urine Ketones NEGATIVE mg/dL (NEGATIVE) 06/29/16 05:55 Urine Blood NEGATIVE (NEGATIVE) 06/29/16 05:55 Urine Nitrate NEGATIVE (NEGATIVE) 06/29/16 05:55 Urine Bilirubin NEGATIVE (NEGATIVE) 06/29/16 05:55 Urine Urobilinogen 0.2 E.U./dL (0.2 - 1.0) 06/29/16 05:55 Ur Leukocyte Esterase TRACE (NEGATIVE) H 06/29/16 05:55 Urine RBC 0-2 /hpf (0-5) H 06/29/16 05:55 Urine WBC 6-10 /hpf (0-5) H 06/29/16 05:55 Ur Epithelial Cells FEW /lpf (FEW) 06/29/16 05:55 Urine Bacteria MANY /hpf (NONE SEEN) 06/29/16 05:55 Stool Occult Blood POSITIVE (NEGATIVE) 08/17/16 11:00 Stool Leukocyte NO WBC SEEN 08/17/16 11:00 Gentamicin Trough ug/ml (0.2-2.0) 08/12/16 05:19 Random Vancomycin 17.8 ug/mL (5.0-40.0) 08/19/16 05:00 RPR NONREACTIVE (NONREACTIVE) 06/22/16 19:33 Hepatitis A IgM Ab Negative (Negative) 06/29/16 05:49 Hep Bs Antigen Negative (Negative) 06/29/16 05:49 Hep B Core IgM Ab Negative (Negative) 06/29/16 05:49 Hepatitis C Antibody >11.0 s/co ratio (0.0-0.9) H 06/29/16 05:49 Blood Type A POSITIVE 08/10/16 21:07 Antibody Screen NEGATIVE 08/10/16 21:07 Crossmatch See Detail 08/10/16 21:07 - Physical Exam Vitals and I&O: Vital Signs Temp 97.8 F 08/20/16 09:00 Pulse 123 08/20/16 09:00 Resp 14 08/20/16 12:14 BP 101/71 08/20/16 09:00 Pulse Ox 98 08/20/16 12:14 Intake & Output 08/19/16 08/20/16 08/20/16 18:59 06:59 18:59 Intake Total 1000 1200 120 Output Total 0 Balance 1000 1200 120 Intake: Oral 1000 1200 120 Output: Urine 0 Other: # Voids 1 # Bowel Movements 1 Stool Characteristics Liquid Liquid Black Black Active Medications: Current Medications Acetaminophen (Tylenol) 650 mg PO Q6H PRN PRN Reason: temperature above 100F Stop: 09/28/16 16:14 Last Admin: 07/30/16 16:27 Dose: 650 mg Calamine/Phenol (Calmoseptine) 1 appl TP QID MARQUISE Stop: 10/14/16 12:59 Last Admin: 08/19/16 20:55 Dose: 1 appl Diphenhydramine HCl (Benadryl 50 Mg/Ml) 50 mg IM Q8HR PRN PRN Reason: Agitation Stop: 08/25/16 12:10 Last Admin: 08/14/16 22:33 Dose: 50 mg Diphenhydramine HCl (Benadryl 50 Mg/Ml) 25 mg IVP Q6HR PRN PRN Reason: itching Stop: 10/11/16 03:12 Last Admin: 08/14/16 11:25 Dose: 25 mg Docusate Sodium (Colace) 100 mg PO Q12HR MARQUISE Stop: 09/16/16 08:59 Last Admin: 08/20/16 08:56 Dose: 100 mg Haloperidol Lactate (Haldol) 5 mg IM Q8HR PRN PRN Reason: Agitation Stop: 08/25/16 12:10 Last Admin: 08/14/16 13:15 Dose: 5 mg Hydrocortisone Sodium Succinate (Solu-Cortef) 50 mg IVP Q8H MARQUISE Stop: 10/09/16 15:59 Last Admin: 08/20/16 08:56 Dose: 50 mg Sodium Chloride (Nacl 0.9%) 1,000 mls @ 10 mls/hr IV .Q24H MARQUISE Stop: 10/15/16 15:01 Last Admin: 08/17/16 16:25 Dose: 10 mls/hr Lactobacillus Rhamnosus (Culturelle) 1 each PO DAILY MARQUISE Stop: 10/12/16 08:59 Last Admin: 08/20/16 08:56 Dose: 1 each Lactulose (Cephulac) 20 gm PO BID MARQUISE Stop: 10/17/16 08:59 Last Admin: 08/19/16 17:00 Dose: Not Given Lorazepam (Ativan) 2 mg IVP Q2HR PRN; Protocol PRN Reason: Seizures Stop: 10/19/16 10:06 Metronidazole (Flagyl) 500 mg PO TID MARQUISE Stop: 08/31/16 21:01 Last Admin: 08/20/16 08:56 Dose: 500 mg Miscellaneous (Clinical Monitoring) 1 ea MC DAILY PRN PRN Reason: RENAL Stop: 10/06/16 08:17 Miscellaneous (Probiotic Screen) 1 ea MC PRN PRN PRN Reason: PROTOCOL Stop: 10/11/16 14:12 Miscellaneous (Vancomycin Iv Per Pharmacy) 1 ea MC PRN MARQUISE Stop: 10/12/16 01:29 Morphine Sulfate (Morphine) 2 mg IV Q4HR PRN PRN Reason: Pain (Moderate) Stop: 10/15/16 13:36 Last Admin: 08/20/16 11:48 Dose: 2 mg Sodium Bicarbonate (Sodium Bicarb) 50 meq IVP BID [facility] Stop: 10/13/16 16:59 Last Admin: 08/20/16 08:56 Dose: 50 meq General: Other (stuporous) HEENT: Atraumatic, Mucous membr. moist/pink Neck: Supple, +2 carotid pulse wo bruit Cardiovascular: Regular rate, Normal S1, Normal S2 Lungs: Other (scattered rhonchi) Abdomen: Bowel sounds, Soft Extremities: Edema ((+) 3 bipedal edema) Neurological: Sensation intact Skin: no Rash - Procedures Procedures: Procedures Procedure Code Date ARTERY-VEIN NONAUTOGRAFT 31490 06/22/16 BLOOD TRANSFUSION SERVICE 07390 06/22/16 BYPASS L BRACH ART TO UP ARM VEIN W NONAUT SUB, OPEN 81770TH 06/22/16 FLUOROSCOPY OF SUP VENA CAVA USING [facility] CONTRAST, GUIDANCE [id number] 06/22/16 INSERTION OF INFUSION DEV INTO SUP VENA CAVA, PERC APPROACH [id number] 06/22/[address] PLACE CATHETER IN VEIN 08172 06/22/16 TRANSFUSE NONAUT RED BLOOD CELLS IN PERIPH VEIN, PERC [id number] 06/22/16 Assessment/Plan - Problem List Patient Problems: All Active Problems Anemia (Acute) D64.9 ESRD (end stage renal disease) (Acute) ESRD (end stage renal disease) on dialysis (Acute) N18.6, Z99.2 ESRD (end stage renal disease) on dialysis (Acute) N18.6, Z99.2 HYPOTENSION (Acute) HYPOXEMIA (Acute) MEDICAL EVALUATION PER DR FRY (Acute) septic shock (Acute) - Assessment Assessment: septic shock (better) esrd on hd persistent cellulitis b/l lower ext acute on chronic anemia possible gi bleed ohs chronic a. fib hypothyroid anasarca functional quadriplegia chronic venous stasis dermatitis acute decomp psychosis s/p left avg G (+) cocci in clusters septicemia Resp acidosis on bipap new onset seizure activity - Plan Plan: Lab - Result Diagrams 07/19/16 09:50 Lab - Result Diagrams 07/22/16 05:21 Lab - Result Diagrams 07/24/16 05:00 Lab - Result Diagrams Lab - Result Diagrams 08/04/16 08:33 Lab - Result Diagrams 08/05/16 05:00 08/04/16 05:45 08/04/16 05:45 07/28/16 05:30 07/28/16 05:30 07/24/16 05:00 07/20/16 05:50 07/19/16 09:50 latest hgb/hct were 9.7/28.6 developed septic shock, off pressors culture grew G (+) cocci, WBC down 8.5 continue ABx transfuse as necessary f/u electrolytes, cbc new right Anton cath new onset seiure activity this am for hd in am Lab - Result Diagrams 07/19/16 09:50 07/20/16 05:50 Lab - Result Diagrams 07/21/16 06:16 07/20/16 05:50 Lab - Result Diagrams 07/26/16 11:05 07/24/16 05:00 Lab - Result Diagrams 07/29/16 05:55 07/28/16 05:30 Lab - Result Diagrams 08/12/16 05:19 08/12/16 05:19 Lab - Result Diagrams 08/17/16 07:20 08/17/16 07:20
[2016-08-20] MEDS: Venelex 60gm Tube TP SCH (13:36)
[2016-08-20] MEDS: Lactulose 10 Gm/15 mL 30mL UDC PO SCH ×2 (13:36→17:30)
--- NOTE | 2016-08-20 15:44 | Internal Medicine Prog Note ---
Internal Medicine Subjective - Subjective Service Date: 08/20/16 Patient seen and examined:: without staff Patient is:: asleep, eyes closed, arousable, in bed, other (on BIPAP, ) Patient Complaints of:: other (Had a seizure, and hypoxic) Per staff patient is:: confused Internal Medicine Objective - Results Result Diagrams: 08/18/16 05:18 08/18/16 05:18 Recent Labs: Laboratory Last Values WBC 9.0 Th/cmm (4.8-10.8) 08/18/16 05:18 RBC 3.41 Mil/cmm (4.30-5.70) L 08/18/16 05:18 Hgb 9.7 gm/dL (13.2-17.3) L 08/18/16 05:18 Hct 28.6 % (39.0-49.0) L 08/18/16 05:18 MCV 83.8 fl (80-99) 08/18/16 05:18 MCH 28.4 pg (26.0-30.0) 08/18/16 05:18 MCHC Differential 33.9 pg (28.0-36.0) 08/18/16 05:18 RDW 14.6 % (11.5-20.0) 08/18/16 05:18 Plt Count 85 Th/cmm (150-400) L 08/18/16 05:18 MPV 8.2 fl 08/18/16 05:18 Neutrophils % 56.8 % (40.0-80.0) 07/07/16 06:00 Band Neutrophils % 2 % (0-10) 08/18/16 05:18 Lymphocytes % 18.4 % (20.0-50.0) L 07/07/16 06:00 Monocytes % 13.8 % (2.0-10.0) H 07/07/16 06:00 Eosinophils % 11.0 % (0.0-5.0) H 07/07/16 06:00 Basophils % 0.0 % (0.0-2.0) 07/07/16 06:00 Neutrophils (Manual) 90 % (40-80) H 08/18/16 05:18 Lymphocytes 4 % (20-50) L 08/18/16 05:18 Monocytes 3 % (2-10) 08/18/16 05:18 Eosinophils 1 % (0-5) 08/18/16 05:18 Basophils 3 % (0-3) 08/04/16 08:33 Metamyelocytes 1 % (0-0) H 08/14/16 07:40 Myelocytes 1 % 07/14/16 16:00 Nucleated RBCs 1.0 % (0-0) H 08/15/16 09:30 Hypochromia 1+ 07/20/16 23:30 Platelet Estimate SLIGHT DECREASED (NORMAL) 08/18/16 05:18 Platelet Morphology NORMAL (NORMAL) 08/17/16 07:20 Polychromasia 1+ 07/20/16 23:30 Anisocytosis 1+ 08/16/16 05:16 Microcytosis 1+ 07/14/16 16:00 RBC Morph Micro Appear NORMAL (NORMAL) 08/17/16 07:20 PT 17.3 SECONDS (9.5-11.5) H 08/17/16 07:20 INR 1.62 (0.5-1.4) H 08/17/16 07:20 PTT (Actin FS) 37.7 SECONDS (26.0-38.0) 08/17/16 07:20 Specimen Source Arterial 08/20/16 08:15 Sample Site Right Radial 08/20/16 08:15 pH 7.33 (7.35-7.45) L 08/20/16 08:15 pCO2 55.0 mmHg (35.0-45.0) H 08/20/16 08:15 pO2 92.0 mmHg (80.0-100.0) 08/20/16 08:15 HCO3 26.5 mEq/L (20.0-26.0) H 08/20/16 08:15 Base Excess 2.0 mEq/L (-3.0-3.0) 08/20/16 08:15 O2 Saturation 97.0 % (92.0-100.0) 08/20/16 08:15 Estuardo Test POSITIVE 08/20/16 08:15 Vent Rate NA 08/20/16 08:15 Inspired O2 32 08/20/16 08:15 Tidal Volume NA 08/20/16 08:15 PEEP NA 08/20/16 08:15 Pressure (ins/psv/peep) NA 08/20/16 08:15 Critical Value CSILVA 08/20/16 08:15 Sodium 132 mEq/L (136-145) L 08/18/16 05:18 Potassium 3.9 mEq/L (3.5-5.1) 08/18/16 05:18 Chloride 98 mEq/L (98-107) 08/18/16 05:18 Carbon Dioxide 26.6 mEq/L (21.0-31.0) 08/18/16 05:18 Anion Gap 11.3 (7.0-16.0) 08/18/16 05:18 BUN 74 mg/dL (7-25) H 08/18/16 05:18 Creatinine 5.6 mg/dL (0.7-1.3) H* 08/18/16 05:18 Est GFR ( Amer) 14.0 ml/min (>90) 08/18/16 05:18 Est GFR (Non-Af Amer) 11.6 ml/min 08/18/16 05:18 BUN/Creatinine Ratio 13.2 08/18/16 05:18 Glucose 151 mg/dL (70-105) H 08/18/16 05:18 POC Glucose 111 MG/DL (70 - 105) H 08/15/16 08:03 Hemoglobin A1c % 4.8 % (4.0-6.0) 08/13/16 06:04 Whole Bld Lactic Acid 1.54 mmol/L (0.60-1.99) 08/13/16 06:04 Calcium 9.5 mg/dL (8.6-10.3) 08/18/16 05:18 Phosphorus 5.5 mg/dL (2.5-5.0) H 07/19/16 09:50 Magnesium 1.9 mg/dL (1.9-2.7) 08/04/16 05:45 Iron 42 ug/dL (38-169) 06/28/16 04:38 TIBC 269 ug/dL (250-450) 06/28/16 04:38 Iron Saturation 16 % (15-55) 06/28/16 04:38 Unsaturated IBC 227 ug/dL (111-343) 06/28/16 04:38 Ferritin 150 ng/mL (30-400) 06/26/16 08:30 Total Bilirubin 1.0 mg/dL (0.3-1.0) 08/18/16 05:18 Direct Bilirubin 0.70 mg/dL (0.0-0.2) H 06/28/16 04:38 GGTP 14 IU/L (0-65) 06/28/16 04:38 AST 16 U/L (13-39) 08/18/16 05:18 ALT 11 U/L (7-52) 08/18/16 05:18 Alkaline Phosphatase 39 U/L (34-104) 08/18/16 05:18 Ammonia 73 umol/L (16-53) H 08/12/16 05:19 Troponin I < 0.01 ng/mL (0.01-0.05) L 06/22/16 19:33 B-Natriuretic Peptide 668.0 pg/mL (5.0-100.0) H 06/22/16 19:33 Total Protein 7.9 gm/dL (6.0-8.3) 08/18/16 05:18 Albumin 2.8 gm/dL (4.2-5.5) L 08/18/16 05:18 Globulin 5.1 gm/dL 08/18/16 05:18 Albumin/Globulin Ratio 0.6 (1.0-1.8) L 08/18/16 05:18 Amylase 28 U/L (29-103) L 07/02/16 06:40 Lipase 31 U/L (11-82) 07/02/16 06:40 TSH 2.98 uIU/ml (0.34-5.60) 08/13/16 06:04 Urine Source CLEAN C 06/29/16 05:55 Urine Color YELLOW 06/29/16 05:55 Urine Clarity HAZY (CLEAR) 06/29/16 05:55 Urine pH 5.5 06/29/16 05:55 Ur Specific [place] 1.015 (1.005-1.030) 06/29/16 05:55 Urine Protein 30 mg/dL (NEGATIVE) H 06/29/16 05:55 Urine Glucose (UA) NEGATIVE mg/dL (NEGATIVE) 06/29/16 05:55 Urine Ketones NEGATIVE mg/dL (NEGATIVE) 06/29/16 05:55 Urine Blood NEGATIVE (NEGATIVE) 06/29/16 05:55 Urine Nitrate NEGATIVE (NEGATIVE) 06/29/16 05:55 Urine Bilirubin NEGATIVE (NEGATIVE) 06/29/16 05:55 Urine Urobilinogen 0.2 E.U./dL (0.2 - 1.0) 06/29/16 05:55 Ur Leukocyte Esterase TRACE (NEGATIVE) H 06/29/16 05:55 Urine RBC 0-2 /hpf (0-5) H 06/29/16 05:55 Urine WBC 6-10 /hpf (0-5) H 06/29/16 05:55 Ur Epithelial Cells FEW /lpf (FEW) 06/29/16 05:55 Urine Bacteria MANY /hpf (NONE SEEN) 06/29/16 05:55 Stool Occult Blood POSITIVE (NEGATIVE) 08/17/16 11:00 Stool Leukocyte NO WBC SEEN 08/17/16 11:00 Gentamicin Trough ug/ml (0.2-2.0) 08/12/16 05:19 Random Vancomycin 17.8 ug/mL (5.0-40.0) 08/19/16 05:00 RPR NONREACTIVE (NONREACTIVE) 06/22/16 19:33 Hepatitis A IgM Ab Negative (Negative) 06/29/16 05:49 Hep Bs Antigen Negative (Negative) 06/29/16 05:49 Hep B Core IgM Ab Negative (Negative) 06/29/16 05:49 Hepatitis C Antibody >11.0 s/co ratio (0.0-0.9) H 06/29/16 05:49 Blood Type A POSITIVE 08/10/16 21:07 Antibody Screen NEGATIVE 08/10/16 21:07 Crossmatch See Detail 08/10/16 21:07 - Physical Exam Vitals and I&O: Vital Signs Temp 97.8 F 08/20/16 09:00 Pulse 123 08/20/16 09:00 Resp 18 08/20/16 14:04 BP 101/71 08/20/16 09:00 Pulse Ox 98 08/20/16 14:04 Intake & Output 08/19/16 08/20/16 08/20/16 18:59 06:59 18:59 Intake Total 1000 1200 120 Output Total 0 Balance 1000 1200 120 Intake: Oral 1000 1200 120 Output: Urine 0 Other: # Voids 1 # Bowel Movements 1 Stool Characteristics Liquid Liquid Black Black Active Medications: Current Medications Acetaminophen (Tylenol) 650 mg PO Q6H PRN PRN Reason: temperature above 100F Stop: 09/28/16 16:14 Last Admin: 07/30/16 16:27 Dose: 650 mg Calamine/Phenol (Calmoseptine) 1 appl TP QID MARQUISE Stop: 10/14/16 12:59 Last Admin: 08/19/16 20:55 Dose: 1 appl Diphenhydramine HCl (Benadryl 50 Mg/Ml) 50 mg IM Q8HR PRN PRN Reason: Agitation Stop: 08/25/16 12:10 Last Admin: 08/14/16 22:33 Dose: 50 mg Diphenhydramine HCl (Benadryl 50 Mg/Ml) 25 mg IVP Q6HR PRN PRN Reason: itching Stop: 10/11/16 03:12 Last Admin: 08/14/16 11:25 Dose: 25 mg Docusate Sodium (Colace) 100 mg PO Q12HR [facility]QUISE Stop: 09/16/16 08:59 Last Admin: 08/20/16 08:56 Dose: 100 mg Haloperidol Lactate (Haldol) 5 mg IM Q8HR PRN PRN Reason: Agitation Stop: 08/25/16 12:10 Last Admin: 08/14/16 13:15 Dose: 5 mg Hydrocortisone Sodium Succinate (Solu-Cortef) 50 mg IVP Q8H [facility]ISE Stop: 10/09/16 15:59 Last Admin: 08/20/16 15:36 Dose: 50 mg Sodium Chloride (Nacl 0.9%) 1,000 mls @ 10 mls/hr IV .Q24H [facility] Stop: 10/15/16 15:01 Last Admin: 08/17/16 16:25 Dose: 10 mls/hr Lactobacillus Rhamnosus (Culturelle) 1 each PO DAILY MARQUISE Stop: 10/12/16 08:59 Last Admin: 08/20/16 08:56 Dose: 1 each Lactulose (Cephulac) 20 gm PO BID MARQUISE Stop: 10/17/16 08:59 Last Admin: 08/20/16 13:36 Dose: Not Given Lorazepam (Ativan) 2 mg IVP Q2HR PRN; Protocol PRN Reason: Seizures Stop: 10/19/16 10:06 Metronidazole (Flagyl) 500 mg PO TID MARQUISE Stop: 08/31/16 21:01 Last Admin: 08/20/16 15:36 Dose: 500 mg Miscellaneous (Clinical Monitoring) 1 ea MC DAILY PRN PRN Reason: RENAL Stop: 10/06/16 08:17 Miscellaneous (Probiotic Screen) 1 ea MC PRN PRN PRN Reason: PROTOCOL Stop: 10/11/16 14:12 Morphine Sulfate (Morphine) 2 mg IV Q4HR PRN PRN Reason: Pain (Moderate) Stop: 10/15/16 13:36 Last Admin: 08/20/16 11:48 Dose: 2 mg Pantoprazole Sodium (Protonix) 40 mg IVP BID [facility] Stop: 10/19/16 16:59 Sodium Bicarbonate (Sodium Bicarb) 50 meq IVP BID [facility] Stop: 10/13/16 16:59 Last Admin: 08/20/16 08:56 Dose: 50 meq General: obese, other (on BIPAP, Seizure free) HEENT: NC/AT, PERRLA Neck: Supple, No JVD Lungs: congested Cardiovascular: RRR, Normal S1 Abdomen: soft non-tender Extremities: no edema Neurological: lethargic, muscle weakness - Procedures Procedures: Procedures Procedure Code Date ARTERY-VEIN NONAUTOGRAFT 65510 06/22/16 BLOOD TRANSFUSION SERVICE 51281 06/22/16 BYPASS L BRACH ART TO UP ARM VEIN W NONAUT SUB, OPEN [id number] 06/22/16 FLUOROSCOPY OF SUP VENA CAVA USING [facility] CONTRAST, GUIDANCE [id number] 06/22/16 INSERTION OF INFUSION DEV INTO SUP VENA CAVA, PERC APPROACH [id number] 06/22/16 PLACE CATHETER IN VEIN 61460 06/22/16 TRANSFUSE NONAUT RED BLOOD CELLS IN PERIPH VEIN, PERC [id number] 06/22/16 Internal Medicine Assmt/Plan - Assessment Assessment: Anemia (Acute) D64.9 ESRD (end stage renal disease) (Acute) ESRD (end stage renal disease) on dialysis (Acute) N18.6, Z99.2 HYPOTENSION (Acute) HYPOXEMIA (Acute) MEDICAL EVALUATION PER DR FRY (Acute) septic shock (Acute New onset Seizures - Plan Plan: CPM Dr Schmidt for Neuro consult
--- NOTE | 2016-08-20 15:51 | General Progress Note ---
Subjective - Review of Systems Service Date: 08/20/16 Events since last encounter: discussed weight reduction surgery with patient who is in agreement he had inquired into this procedure in the past. will need referral to hospital that does this procedure if his insurance approves Objective - Results Result Diagrams: 08/18/16 05:18 08/18/16 05:18 Recent Labs: Laboratory Last Values WBC 9.0 Th/cmm (4.8-10.8) 08/18/16 05:18 RBC 3.41 Mil/cmm (4.30-5.70) L 08/18/16 05:18 Hgb 9.7 gm/dL (13.2-17.3) L 08/18/16 05:18 Hct 28.6 % (39.0-49.0) L 08/18/16 05:18 MCV 83.8 fl (80-99) 08/18/16 05:18 MCH 28.4 pg (26.0-30.0) 08/18/16 05:18 MCHC Differential 33.9 pg (28.0-36.0) 08/18/16 05:18 RDW 14.6 % (11.5-20.0) 08/18/16 05:18 Plt Count 85 Th/cmm (150-400) L 08/18/16 05:18 MPV 8.2 fl 08/18/16 05:18 Neutrophils % 56.8 % (40.0-80.0) 07/07/16 06:00 Band Neutrophils % 2 % (0-10) 08/18/16 05:18 Lymphocytes % 18.4 % (20.0-50.0) L 07/07/16 06:00 Monocytes % 13.8 % (2.0-10.0) H 07/07/16 06:00 Eosinophils % 11.0 % (0.0-5.0) H 07/07/16 06:00 Basophils % 0.0 % (0.0-2.0) 07/07/16 06:00 Neutrophils (Manual) 90 % (40-80) H 08/18/16 05:18 Lymphocytes 4 % (20-50) L 08/18/16 05:18 Monocytes 3 % (2-10) 08/18/16 05:18 Eosinophils 1 % (0-5) 08/18/16 05:18 Basophils 3 % (0-3) 08/04/16 08:33 Metamyelocytes 1 % (0-0) H 08/14/16 07:40 Myelocytes 1 % 07/14/16 16:00 Nucleated RBCs 1.0 % (0-0) H 08/15/16 09:30 Hypochromia 1+ 07/20/16 23:30 Platelet Estimate SLIGHT DECREASED (NORMAL) 08/18/16 05:18 Platelet Morphology NORMAL (NORMAL) 08/17/16 07:20 Polychromasia 1+ 07/20/16 23:30 Anisocytosis 1+ 08/16/16 05:16 Microcytosis 1+ 07/14/16 16:00 RBC Morph Micro Appear NORMAL (NORMAL) 08/17/16 07:20 PT 17.3 SECONDS (9.5-11.5) H 08/17/16 07:20 INR 1.62 (0.5-1.4) H 08/17/16 07:20 PTT (Actin FS) 37.7 SECONDS (26.0-38.0) 08/17/16 07:20 Specimen Source Arterial 08/20/16 08:15 Sample Site Right Radial 08/20/16 08:15 pH 7.33 (7.35-7.45) L 08/20/16 08:15 pCO2 55.0 mmHg (35.0-45.0) H 08/20/16 08:15 pO2 92.0 mmHg (80.0-100.0) 08/20/16 08:15 HCO3 26.5 mEq/L (20.0-26.0) H 08/20/16 08:15 Base Excess 2.0 mEq/L (-3.0-3.0) 08/20/16 08:15 O2 Saturation 97.0 % (92.0-100.0) 08/20/16 08:15 Estuardo Test POSITIVE 08/20/16 08:15 Vent Rate NA 08/20/16 08:15 Inspired O2 32 08/20/16 08:15 Tidal Volume NA 08/20/16 08:15 PEEP NA 08/20/16 08:15 Pressure (ins/psv/peep) NA 08/20/16 08:15 Critical Value CSILVA 08/20/16 08:15 Sodium 132 mEq/L (136-145) L 08/18/16 05:18 Potassium 3.9 mEq/L (3.5-5.1) 08/18/16 05:18 Chloride 98 mEq/L (98-107) 08/18/16 05:18 Carbon Dioxide 26.6 mEq/L (21.0-31.0) 08/18/16 05:18 Anion Gap 11.3 (7.0-16.0) 08/18/16 05:18 BUN 74 mg/dL (7-25) H 08/18/16 05:18 Creatinine 5.6 mg/dL (0.7-1.3) H* 08/18/16 05:18 Est GFR ( Amer) 14.0 ml/min (>90) 08/18/16 05:18 Est GFR (Non-Af Amer) 11.6 ml/min 08/18/16 05:18 BUN/Creatinine Ratio 13.2 08/18/16 05:18 Glucose 151 mg/dL (70-105) H 08/18/16 05:18 POC Glucose 111 MG/DL (70 - 105) H 08/15/16 08:03 Hemoglobin A1c % 4.8 % (4.0-6.0) 08/13/16 06:04 Whole Bld Lactic Acid 1.54 mmol/L (0.60-1.99) 08/13/16 06:04 Calcium 9.5 mg/dL (8.6-10.3) 08/18/16 05:18 Phosphorus 5.5 mg/dL (2.5-5.0) H 07/19/16 09:50 Magnesium 1.9 mg/dL (1.9-2.7) 08/04/16 05:45 Iron 42 ug/dL (38-169) 06/28/16 04:38 TIBC 269 ug/dL (250-450) 06/28/16 04:38 Iron Saturation 16 % (15-55) 06/28/16 04:38 Unsaturated IBC 227 ug/dL (111-343) 06/28/16 04:38 Ferritin 150 ng/mL (30-400) 06/26/16 08:30 Total Bilirubin 1.0 mg/dL (0.3-1.0) 08/18/16 05:18 Direct Bilirubin 0.70 mg/dL (0.0-0.2) H 06/28/16 04:38 GGTP 14 IU/L (0-65) 06/28/16 04:38 AST 16 U/L (13-39) 08/18/16 05:18 ALT 11 U/L (7-52) 08/18/16 05:18 Alkaline Phosphatase 39 U/L (34-104) 08/18/16 05:18 Ammonia 73 umol/L (16-53) H 08/12/16 05:19 Troponin I < 0.01 ng/mL (0.01-0.05) L 06/22/16 19:33 B-Natriuretic Peptide 668.0 pg/mL (5.0-100.0) H 06/22/16 19:33 Total Protein 7.9 gm/dL (6.0-8.3) 08/18/16 05:18 Albumin 2.8 gm/dL (4.2-5.5) L 08/18/16 05:18 Globulin 5.1 gm/dL 08/18/16 05:18 Albumin/Globulin Ratio 0.6 (1.0-1.8) L 08/18/16 05:18 Amylase 28 U/L (29-103) L 07/02/16 06:40 Lipase 31 U/L (11-82) 07/02/16 06:40 TSH 2.98 uIU/ml (0.34-5.60) 08/13/16 06:04 Urine Source CLEAN C 06/29/16 05:55 Urine Color YELLOW 06/29/16 05:55 Urine Clarity HAZY (CLEAR) 06/29/16 05:55 Urine pH 5.5 06/29/16 05:55 Ur Specific [place] 1.015 (1.005-1.030) 06/29/16 05:55 Urine Protein 30 mg/dL (NEGATIVE) H 06/29/16 05:55 Urine Glucose (UA) NEGATIVE mg/dL (NEGATIVE) 06/29/16 05:55 Urine Ketones NEGATIVE mg/dL (NEGATIVE) 06/29/16 05:55 Urine Blood NEGATIVE (NEGATIVE) 06/29/16 05:55 Urine Nitrate NEGATIVE (NEGATIVE) 06/29/16 05:55 Urine Bilirubin NEGATIVE (NEGATIVE) 06/29/16 05:55 Urine Urobilinogen 0.2 E.U./dL (0.2 - 1.0) 06/29/16 05:55 Ur Leukocyte Esterase TRACE (NEGATIVE) H 06/29/16 05:55 Urine RBC 0-2 /hpf (0-5) H 06/29/16 05:55 Urine WBC 6-10 /hpf (0-5) H 06/29/16 05:55 Ur Epithelial Cells FEW /lpf (FEW) 06/29/16 05:55 Urine Bacteria MANY /hpf (NONE SEEN) 06/29/16 05:55 Stool Occult Blood POSITIVE (NEGATIVE) 08/17/16 11:00 Stool Leukocyte NO WBC SEEN 08/17/16 11:00 Gentamicin Trough ug/ml (0.2-2.0) 08/12/16 05:19 Random Vancomycin 17.8 ug/mL (5.0-40.0) 08/19/16 05:00 RPR NONREACTIVE (NONREACTIVE) 06/22/16 19:33 Hepatitis A IgM Ab Negative (Negative) 06/29/16 05:49 Hep Bs Antigen Negative (Negative) 06/29/16 05:49 Hep B Core IgM Ab Negative (Negative) 06/29/16 05:49 Hepatitis C Antibody >11.0 s/co ratio (0.0-0.9) H 06/29/16 05:49 Blood Type A POSITIVE 08/10/16 21:07 Antibody Screen NEGATIVE 08/10/16 21:07 Crossmatch See Detail 08/10/16 21:07 - Physical Exam Vitals and I&O: Vital Signs Temp 97.8 F 08/20/16 09:00 Pulse 123 08/20/16 09:00 Resp 18 08/20/16 14:04 BP 101/71 08/20/16 09:00 Pulse Ox 98 08/20/16 14:04 Intake & Output 08/19/16 08/20/16 08/20/16 18:59 06:59 18:59 Intake Total 1000 1200 120 Output Total 0 Balance 1000 1200 120 Intake: Oral 1000 1200 120 Output: Urine 0 Other: # Voids 1 # Bowel Movements 1 Stool Characteristics Liquid Liquid Black Black Active Medications: Current Medications Acetaminophen (Tylenol) 650 mg PO Q6H PRN PRN Reason: temperature above 100F Stop: 09/28/16 16:14 Last Admin: 07/30/16 16:27 Dose: 650 mg Calamine/Phenol (Calmoseptine) 1 appl TP QID [facility] Stop: 10/14/16 12:59 Last Admin: 08/19/16 20:55 Dose: 1 appl Diphenhydramine HCl (Benadryl 50 Mg/Ml) 50 mg IM Q8HR PRN PRN Reason: Agitation Stop: 08/25/16 12:10 Last Admin: 08/14/16 22:33 Dose: 50 mg Diphenhydramine HCl (Benadryl 50 Mg/Ml) 25 mg IVP Q6HR PRN PRN Reason: itching Stop: 10/11/16 03:12 Last Admin: 08/14/16 11:25 Dose: 25 mg Docusate Sodium (Colace) 100 mg PO Q12HR [facility] Stop: 09/16/16 08:59 Last Admin: 08/20/16 08:56 Dose: 100 mg Haloperidol Lactate (Haldol) 5 mg IM Q8HR PRN PRN Reason: Agitation Stop: 08/25/16 12:10 Last Admin: 08/14/16 13:15 Dose: 5 mg Hydrocortisone Sodium Succinate (Solu-Cortef) 50 mg IVP Q8H [facility] Stop: 10/09/16 15:59 Last Admin: 08/20/16 15:36 Dose: 50 mg Sodium Chloride (Nacl 0.9%) 1,000 mls @ 10 mls/hr IV .Q24H [facility] Stop: 10/15/16 15:01 Last Admin: 08/17/16 16:25 Dose: 10 mls/hr Lactobacillus Rhamnosus (Culturelle) 1 each PO DAILY [facility]QUISE Stop: 10/12/16 08:59 Last Admin: 08/20/16 08:56 Dose: 1 each Lactulose (Cephulac) 20 gm PO BID [facility]ISE Stop: 10/17/16 08:59 Last Admin: 08/20/16 13:36 Dose: Not Given Lorazepam (Ativan) 2 mg IVP Q2HR PRN; Protocol PRN Reason: Seizures Stop: 10/19/16 10:06 Metronidazole (Flagyl) 500 mg PO TID MARQUISE Stop: 08/31/16 21:01 Last Admin: 08/20/16 15:36 Dose: 500 mg Miscellaneous (Clinical Monitoring) 1 ea MC DAILY PRN PRN Reason: RENAL Stop: 10/06/16 08:17 Miscellaneous (Probiotic Screen) 1 ea MC PRN PRN PRN Reason: PROTOCOL Stop: 10/11/16 14:12 Morphine Sulfate (Morphine) 2 mg IV Q4HR PRN PRN Reason: Pain (Moderate) Stop: 10/15/16 13:36 Last Admin: 08/20/16 11:48 Dose: 2 mg Pantoprazole Sodium (Protonix) 40 mg IVP BID [facility] Stop: 10/19/16 16:59 Sodium Bicarbonate (Sodium Bicarb) 50 meq IVP BID [facility] Stop: 10/13/16 16:59 Last Admin: 08/20/16 08:56 Dose: 50 meq - Procedures Procedures: Procedures Procedure Code Date ARTERY-VEIN NONAUTOGRAFT 17145 06/22/16 BLOOD TRANSFUSION SERVICE 75929 06/22/16 BYPASS L BRACH ART TO UP ARM VEIN W NONAUT SUB, OPEN [id number] 06/22/16 FLUOROSCOPY OF SUP VENA CAVA USING OT CONTRAST, GUIDANCE [id number] 06/22/16 INSERTION OF INFUSION DEV INTO SUP VENA CAVA, PERC APPROACH [id number] 06/22/[address] PL[address] CATHETER IN VEIN 59666 06/22/16 TRANSFUSE NONAUT RED BLOOD CELLS IN PERIPH VEIN, PERC [id number] 06/22/16 Assessment/Plan - Problem List Patient Problems: All Active Problems Anemia (Acute) D64.9 ESRD (end stage renal disease) (Acute) ESRD (end stage renal disease) on dialysis (Acute) N18.6, Z99.2 ESRD (end stage renal disease) on dialysis (Acute) N18.6, Z99.2 HYPOTENSION (Acute) HYPOXEMIA (Acute) MEDICAL EVALUATION PER DR FRY (Acute) septic shock (Acute)
--- NOTE | 2016-08-21 02:31 | Consultation ---
HISTORY OF PRESENT ILLNESS: The patient is a 51-year-old. The patient's neurologic consultation was seizure. The patient is awake and alert, sitting, working on the computer. The patient says that he has had seizure in the past one or two times, maybe. The patient has been here for some weeks now. The patient is with sepsis. He had septic shock. The patient with persistent cellulitis of the lower extremities. Obesity. End-stage renal disease, on hemodialysis. History of chronic atrial fibrillation. Hypothyroidism. The patient is with weakness functional quadriplegia, but the patient is moving his upper and lower extremities. The patient with psychosis. Septicemia. MEDICATIONS: As per reconciliation. Here, the patient was given Ativan. Otherwise, the patient is on Benadryl, Haldol, and started on Keppra 500 b.i.d. The patient is on lorazepam p.r.n. SOCIAL HISTORY: Does not smoke or drink. REVIEW OF SYSTEMS: As above, otherwise 12-point negative. The patient is obese, mainly in bed. PHYSICAL EXAMINATION: VITAL SIGNS: Temperature 97.8, blood pressure 105/72, and pulse is around 78. NECK: Supple. No bruits. HEART: Sounds S1, S2. LUNGS: Clear. ABDOMEN: Soft and obese. EXTREMITIES: Chronic changes. Venous stasis and cellulitis in the past. NEUROLOGIC: Awake and alert. He answers questions. Speech is normal. CRANIAL: Pupils react to light. Full eye movement, no nystagmus. The patient's tongue is normal, no biting. 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 Reflexes -1 upper extremities. I could not get anything at the knees and ankles. INVESTIGATIONS: Unable to do a CAT scan. LABORATORY DATA: WBCs a couple of days was 9.0, hemoglobin 9.7, ABGs; CO2 of 55, O2 was 92, calcium was okay on 08/18/2016. Sodium 132 on 08/18/2016. IMPRESSION: 1. Seizure. Started on Keppra. We will continue with that. 2. Hypotension. Septic shock. 3. Sepsis. Septicemia. 4. End-stage renal disease. 5. Anemia. 6. Obesity. 7. Hypothyroidism. 8. History of psychosis. PLAN: Continue with Keppra. JOB# [id number]
[2016-08-21 04:59] LABS: HEMATOCRIT 29.3 % (39.0-49.0); HEMOGLOBIN 9.9 gm/dL (13.2-17.3); MEAN CELL VOLUME 83.5 fl (80-99); MEAN CORPUSCULAR HEMOGLOBIN 28.2 pg (26.0-30.0); MEAN CORPUSCULAR HGB CONC 33.7 pg (28.0-36.0); MEAN PLATELET VOLUME 8.4 fl; PLATELET COUNT 68 Th/cmm (150-400); RED BLOOD COUNT 3.51 Mil/cmm (4.30-5.70); RED CELL DISTRIBUTION WIDTH 14.8 % (11.5-20.0)
[2016-08-21 05:16] LABS: ANION GAP 10.3 (7.0-16.0); CARBON DIOXIDE 26.6 mEq/L (21.0-31.0); POTASSIUM SERUM 3.9 mEq/L (3.5-5.1)
[2016-08-21 05:19] LABS: WHITE BLOOD COUNT 12.2 Th/cmm (4.8-10.8)
[2016-08-21 05:23] LABS: CREATININE - SERUM 5.7 mg/dL (0.7-1.3)
[2016-08-21 07:38] LABS: BAND NEUTROPHILE 2 % (0-10); NEUTROPHILS 95 % (40-80); TOTAL CELLS COUNTED 100
[2016-08-21 07:39] LABS: PLATELET ESTIMATE DECREASED PLATELETS (NORMAL); PLATELET MORPHOLOGY NORMAL (NORMAL)
[2016-08-21] MEDS: Hydrocortisone Sodium Succ 100 mg Vial IVP SCH ×3 (11:03→16:24)
[2016-08-21] MEDS: Lactulose 10 Gm/15 mL 30mL UDC PO SCH ×2 (11:18→18:05)
[2016-08-21] MEDS: Lactobacillus Rhamnosus 10 Billion CFU Capsule PO SCH (11:18)
[2016-08-21] MEDS: Venelex 60gm Tube TP SCH (11:19)
[2016-08-21] MEDS: Menthol/Zinc Oxide Oint 113gm Tube TP SCH ×4 (11:19→21:00)
--- NOTE | 2016-08-21 12:04 | Infectious Disease Prog Note ---
Infectious Disease Subjective - Review of Systems Service Date: 08/21/16 Subjective: Patient had one seizure episode, so Neurology consultation was performed. no new change from ID point of view. Infectious Disease Objective - Results Result Diagrams: 08/21/16 04:45 08/21/16 04:45 Recent Labs: Laboratory Last Values WBC 12.2 Th/cmm (4.8-10.8) H D 08/21/16 04:45 RBC 3.51 Mil/cmm (4.30-5.70) L 08/21/16 04:45 Hgb 9.9 gm/dL (13.2-17.3) L 08/21/16 04:45 Hct 29.3 % (39.0-49.0) L 08/21/16 04:45 MCV 83.5 fl (80-99) 08/21/16 04:45 MCH 28.2 pg (26.0-30.0) 08/21/16 04:45 MCHC Differential 33.7 pg (28.0-36.0) 08/21/16 04:45 RDW 14.8 % (11.5-20.0) 08/21/16 04:45 Plt Count 68 Th/cmm (150-400) L 08/21/16 04:45 MPV 8.4 fl 08/21/16 04:45 Neutrophils % 56.8 % (40.0-80.0) 07/07/16 06:00 Band Neutrophils % 2 % (0-10) 08/21/16 04:45 Lymphocytes % 18.4 % (20.0-50.0) L 07/07/16 06:00 Monocytes % 13.8 % (2.0-10.0) H 07/07/16 06:00 Eosinophils % 11.0 % (0.0-5.0) H 07/07/16 06:00 Basophils % 0.0 % (0.0-2.0) 07/07/16 06:00 Neutrophils (Manual) 95 % (40-80) H 08/21/16 04:45 Lymphocytes 1 % (20-50) L 08/21/16 04:45 Monocytes 2 % (2-10) 08/21/16 04:45 Eosinophils 1 % (0-5) 08/18/16 05:18 Basophils 3 % (0-3) 08/04/16 08:33 Metamyelocytes 1 % (0-0) H 08/14/16 07:40 Myelocytes 1 % 07/14/16 16:00 Nucleated RBCs 1.0 % (0-0) H 08/15/16 09:30 Hypochromia 1+ 07/20/16 23:30 Platelet Estimate DECREASED PLATELETS (NORMAL) 08/21/16 04:45 Platelet Morphology NORMAL (NORMAL) 08/21/16 04:45 Polychromasia 1+ 07/20/16 23:30 Anisocytosis 1+ 08/16/16 05:16 Microcytosis 1+ 07/14/16 16:00 RBC Morph Micro Appear NORMAL (NORMAL) 08/21/16 04:45 PT 17.3 SECONDS (9.5-11.5) H 08/17/16 07:20 INR 1.62 (0.5-1.4) H 08/17/16 07:20 PTT (Actin FS) 37.7 SECONDS (26.0-38.0) 08/17/16 07:20 Specimen Source Arterial 08/20/16 08:15 Sample Site Right Radial 08/20/16 08:15 pH 7.33 (7.35-7.45) L 08/20/16 08:15 pCO2 55.0 mmHg (35.0-45.0) H 08/20/16 08:15 pO2 92.0 mmHg (80.0-100.0) 08/20/16 08:15 HCO3 26.5 mEq/L (20.0-26.0) H 08/20/16 08:15 Base Excess 2.0 mEq/L (-3.0-3.0) 08/20/16 08:15 O2 Saturation 97.0 % (92.0-100.0) 08/20/16 08:15 Estuardo Test POSITIVE 08/20/16 08:15 Vent Rate NA 08/20/16 08:15 Inspired O2 32 08/20/16 08:15 Tidal Volume NA 08/20/16 08:15 PEEP NA 08/20/16 08:15 Pressure (ins/psv/peep) NA 08/20/16 08:15 Critical Value CSILVA 08/20/16 08:15 Sodium 131 mEq/L (136-145) L 08/21/16 04:45 Potassium 3.9 mEq/L (3.5-5.1) 08/21/16 04:45 Chloride 98 mEq/L (98-107) 08/21/16 04:45 Carbon Dioxide 26.6 mEq/L (21.0-31.0) 08/21/16 04:45 Anion Gap 10.3 (7.0-16.0) 08/21/16 04:45 BUN 80 mg/dL (7-25) H 08/21/16 04:45 Creatinine 5.7 mg/dL (0.7-1.3) H* 08/21/16 04:45 Est GFR ( Amer) 13.7 ml/min (>90) 08/21/16 04:45 Est GFR (Non-Af Amer) 11.3 ml/min 08/21/16 04:45 BUN/Creatinine Ratio 14.0 08/21/16 04:45 Glucose 156 mg/dL (70-105) H 08/21/16 04:45 POC Glucose 111 MG/DL (70 - 105) H 08/15/16 08:03 Hemoglobin A1c % 4.8 % (4.0-6.0) 08/13/16 06:04 Whole Bld Lactic Acid 1.54 mmol/L (0.60-1.99) 08/13/16 06:04 Calcium 9.0 mg/dL (8.6-10.3) 08/21/16 04:45 Phosphorus 5.5 mg/dL (2.5-5.0) H 07/19/16 09:50 Magnesium 1.9 mg/dL (1.9-2.7) 08/04/16 05:45 Iron 42 ug/dL (38-169) 06/28/16 04:38 TIBC 269 ug/dL (250-450) 06/28/16 04:38 Iron Saturation 16 % (15-55) 06/28/16 04:38 Unsaturated IBC 227 ug/dL (111-343) 06/28/16 04:38 Ferritin 150 ng/mL (30-400) 06/26/16 08:30 Total Bilirubin 1.0 mg/dL (0.3-1.0) 08/18/16 05:18 Direct Bilirubin 0.70 mg/dL (0.0-0.2) H 06/28/16 04:38 GGTP 14 IU/L (0-65) 06/28/16 04:38 AST 16 U/L (13-39) 08/18/16 05:18 ALT 11 U/L (7-52) 08/18/16 05:18 Alkaline Phosphatase 39 U/L (34-104) 08/18/16 05:18 Ammonia 73 umol/L (16-53) H 08/12/16 05:19 Troponin I < 0.01 ng/mL (0.01-0.05) L 06/22/16 19:33 B-Natriuretic Peptide 668.0 pg/mL (5.0-100.0) H 06/22/16 19:33 Total Protein 7.9 gm/dL (6.0-8.3) 08/18/16 05:18 Albumin 2.8 gm/dL (4.2-5.5) L 08/18/16 05:18 Globulin 5.1 gm/dL 08/18/16 05:18 Albumin/Globulin Ratio 0.6 (1.0-1.8) L 08/18/16 05:18 Amylase 28 U/L (29-103) L 07/02/16 06:40 Lipase 31 U/L (11-82) 07/02/16 06:40 TSH 2.98 uIU/ml (0.34-5.60) 08/13/16 06:04 Urine Source CLEAN C 06/29/16 05:55 Urine Color YELLOW 06/29/16 05:55 Urine Clarity HAZY (CLEAR) 06/29/16 05:55 Urine pH 5.5 06/29/16 05:55 Ur Specific [place] 1.015 (1.005-1.030) 06/29/16 05:55 Urine Protein 30 mg/dL (NEGATIVE) H 06/29/16 05:55 Urine Glucose (UA) NEGATIVE mg/dL (NEGATIVE) 06/29/16 05:55 Urine Ketones NEGATIVE mg/dL (NEGATIVE) 06/29/16 05:55 Urine Blood NEGATIVE (NEGATIVE) 06/29/16 05:55 Urine Nitrate NEGATIVE (NEGATIVE) 06/29/16 05:55 Urine Bilirubin NEGATIVE (NEGATIVE) 06/29/16 05:55 Urine Urobilinogen 0.2 E.U./dL (0.2 - 1.0) 06/29/16 05:55 Ur Leukocyte Esterase TRACE (NEGATIVE) H 06/29/16 05:55 Urine RBC 0-2 /hpf (0-5) H 06/29/16 05:55 Urine WBC 6-10 /hpf (0-5) H 06/29/16 05:55 Ur Epithelial Cells FEW /lpf (FEW) 06/29/16 05:55 Urine Bacteria MANY /hpf (NONE SEEN) 06/29/16 05:55 Stool Occult Blood POSITIVE (NEGATIVE) 08/17/16 11:00 Stool Leukocyte NO WBC SEEN 08/17/16 11:00 Gentamicin Trough ug/ml (0.2-2.0) 08/12/16 05:19 Random Vancomycin 24.7 ug/mL (5.0-40.0) 08/21/16 04:45 RPR NONREACTIVE (NONREACTIVE) 06/22/16 19:33 Hepatitis A IgM Ab Negative (Negative) 06/29/16 05:49 Hep Bs Antigen Negative (Negative) 06/29/16 05:49 Hep B Core IgM Ab Negative (Negative) 06/29/16 05:49 Hepatitis C Antibody >11.0 s/co ratio (0.0-0.9) H 06/29/16 05:49 Blood Type A POSITIVE 08/10/16 21:07 Antibody Screen NEGATIVE 08/10/16 21:07 Crossmatch See Detail 08/10/16 21:07 - Physical Exam Vitals and I&O: Vital Signs Temp 97.8 F 08/21/16 05:00 Pulse 103 08/21/16 05:00 Resp 16 08/21/16 05:00 BP 106/53 08/21/16 05:00 Pulse Ox 97 08/21/16 05:00 Intake & Output 08/20/16 08/21/16 08/21/16 18:59 06:59 18:59 Intake Total 120 300 Output Total 0 Balance 120 300 Intake: Oral 120 300 Output: Urine 0 Other: # Bowel Movements 200 Stool Characteristics Liquid Black Active Medications: Current Medications Acetaminophen (Tylenol) 650 mg PO Q6H PRN PRN Reason: temperature above 100F Stop: 09/28/16 16:14 Last Admin: 07/30/16 16:27 Dose: 650 mg Calamine/Phenol (Calmoseptine) 1 appl TP QID [facility] Stop: 10/14/16 12:59 Last Admin: 08/21/16 11:19 Dose: 1 appl Diphenhydramine HCl (Benadryl 50 Mg/Ml) 50 mg IM Q8HR PRN PRN Reason: Agitation Stop: 08/25/16 12:10 Last Admin: 08/14/16 22:33 Dose: 50 mg Diphenhydramine HCl (Benadryl 50 Mg/Ml) 25 mg IVP Q6HR PRN PRN Reason: itching Stop: 10/11/16 03:12 Last Admin: 08/14/16 11:25 Dose: 25 mg Docusate Sodium (Colace) 100 mg PO Q12HR [facility] Stop: 09/16/16 08:59 Last Admin: 08/21/16 11:18 Dose: 100 mg Haloperidol Lactate (Haldol) 5 mg IM Q8HR PRN PRN Reason: Agitation Stop: 08/25/16 12:10 Last Admin: 08/14/16 13:15 Dose: 5 mg Hydrocortisone Sodium Succinate (Solu-Cortef) 50 mg IVP Q8H [facility] Stop: 10/09/16 15:59 Last Admin: 08/21/16 11:03 Dose: 50 mg Sodium Chloride (Nacl 0.9%) 1,000 mls @ 10 mls/hr IV .Q24H [facility] Stop: 10/15/16 15:01 Last Admin: 08/20/16 08:31 Dose: Not Given Vancomycin HCl 2 gm/ Sodium (Chloride) 500 mls @ 250 mls/hr IV ONCE ONE Stop: 08/22/16 06:59 Lactobacillus Rhamnosus (Culturelle) 1 each PO DAILY [facility] Stop: 10/12/16 08:59 Last Admin: 08/21/16 11:18 Dose: 1 each Lactulose (Cephulac) 20 gm PO BID [facility] Stop: 10/17/16 08:59 Last Admin: 08/21/16 11:18 Dose: Not Given Levetiracetam (Keppra) 500 mg PO BID [facility] Stop: 10/19/16 16:59 Last Admin: 08/21/16 11:18 Dose: 500 mg Lorazepam (Ativan) 2 mg IVP Q2HR PRN; Protocol PRN Reason: Seizures Stop: 10/19/16 10:06 Metronidazole (Flagyl) 500 mg PO TID [facility] Stop: 08/31/16 21:01 Last Admin: 08/21/16 11:18 Dose: 500 mg Miscellaneous (Clinical Monitoring) 1 ea MC DAILY PRN PRN Reason: RENAL Stop: 10/06/16 08:17 Miscellaneous (Probiotic Screen) 1 ea MC PRN PRN PRN Reason: PROTOCOL Stop: 10/11/16 14:12 Morphine Sulfate (Morphine) 2 mg IV Q4HR PRN PRN Reason: Pain (Moderate) Stop: 10/15/16 13:36 Last Admin: 08/20/16 16:29 Dose: 2 mg Pantoprazole Sodium (Protonix) 40 mg IVP BID [facility] Stop: 10/19/16 16:59 Last Admin: 08/21/16 11:02 Dose: 40 mg Sodium Bicarbonate (Sodium Bicarb) 50 meq IVP BID [facility] Stop: 10/13/16 16:59 Last Admin: 08/20/16 16:30 Dose: 50 meq General: no acute distress, other HEENT: atraumatic, normocephalic, PERRLA, EOMI Neck: supple, no thyromegaly Cardiovascular: S1S2, regular Lungs: clear to auscultation bilaterally, clear to percussion Abdomen: soft, no tender, no distended Extremities: no cyanosis, no clubbing, no edema Neurological: awake, alert, oriented Skin: intact - Procedures Procedures: Procedures Procedure Code Date ARTERY-VEIN NONAUTOGRAFT 02441 06/22/16 BLOOD TRANSFUSION SERVICE 69036 06/22/16 BYPASS L BRACH ART TO UP ARM VEIN W NONAUT SUB, OPEN [id number] 06/22/16 FLUOROSCOPY OF SUP VENA CAVA USING [facility] CONTRAST, GUIDANCE [id number] 06/22/16 INSERTION OF INFUSION DEV INTO SUP VENA CAVA, PERC APPROACH [id number] 06/22/[address] PLACE CATHETER IN VEIN 04487 06/22/16 TRANSFUSE NONAUT RED BLOOD CELLS IN PERIPH VEIN, PERC [id number] 06/22/16 Infectious Disease Assmt/Plan - Problem List Patient Problems: All Active Problems Anemia (Acute) D64.9 ESRD (end stage renal disease) (Acute) ESRD (end stage renal disease) on dialysis (Acute) N18.6, Z99.2 ESRD (end stage renal disease) on dialysis (Acute) N18.6, Z99.2 HYPOTENSION (Acute) HYPOXEMIA (Acute) MEDICAL EVALUATION PER DR FRY (Acute) septic shock (Acute) - Assessment Assessment: 1. Septic shock. resolved. likely line sepsis. MRSA sepsis. 3/4 positive. 2. Pneumonia. 3. CKD 5 on HD. 4. Morbid obesity. 5. hep C. 6. Cellulitis of legs. improved. treated. 7. Lymphedema of legs. 8. CHF. 9. CDAC - Plan Plan: Continue vanco IV and flagyl.
[2016-08-21] MEDS: Sodium Bicarbonate 8.4% 50mEq PFS IVP SCH ×2 (12:42→16:24)
--- NOTE | 2016-08-21 13:14 | General Progress Note ---
Subjective - Review of Systems Service Date: 08/21/16 Subjective: more alert, eating lunch, on NC Objective - Results Result Diagrams: 08/21/16 04:45 08/21/16 04:45 Recent Labs: Laboratory Last Values WBC 12.2 Th/cmm (4.8-10.8) H D 08/21/16 04:45 RBC 3.51 Mil/cmm (4.30-5.70) L 08/21/16 04:45 Hgb 9.9 gm/dL (13.2-17.3) L 08/21/16 04:45 Hct 29.3 % (39.0-49.0) L 08/21/16 04:45 MCV 83.5 fl (80-99) 08/21/16 04:45 MCH 28.2 pg (26.0-30.0) 08/21/16 04:45 MCHC Differential 33.7 pg (28.0-36.0) 08/21/16 04:45 RDW 14.8 % (11.5-20.0) 08/21/16 04:45 Plt Count 68 Th/cmm (150-400) L 08/21/16 04:45 MPV 8.4 fl 08/21/16 04:45 Neutrophils % 56.8 % (40.0-80.0) 07/07/16 06:00 Band Neutrophils % 2 % (0-10) 08/21/16 04:45 Lymphocytes % 18.4 % (20.0-50.0) L 07/07/16 06:00 Monocytes % 13.8 % (2.0-10.0) H 07/07/16 06:00 Eosinophils % 11.0 % (0.0-5.0) H 07/07/16 06:00 Basophils % 0.0 % (0.0-2.0) 07/07/16 06:00 Neutrophils (Manual) 95 % (40-80) H 08/21/16 04:45 Lymphocytes 1 % (20-50) L 08/21/16 04:45 Monocytes 2 % (2-10) 08/21/16 04:45 Eosinophils 1 % (0-5) 08/18/16 05:18 Basophils 3 % (0-3) 08/04/16 08:33 Metamyelocytes 1 % (0-0) H 08/14/16 07:40 Myelocytes 1 % 07/14/16 16:00 Nucleated RBCs 1.0 % (0-0) H 08/15/16 09:30 Hypochromia 1+ 07/20/16 23:30 Platelet Estimate DECREASED PLATELETS (NORMAL) 08/21/16 04:45 Platelet Morphology NORMAL (NORMAL) 08/21/16 04:45 Polychromasia 1+ 07/20/16 23:30 Anisocytosis 1+ 08/16/16 05:16 Microcytosis 1+ 07/14/16 16:00 RBC Morph Micro Appear NORMAL (NORMAL) 08/21/16 04:45 PT 17.3 SECONDS (9.5-11.5) H 08/17/16 07:20 INR 1.62 (0.5-1.4) H 08/17/16 07:20 PTT (Actin FS) 37.7 SECONDS (26.0-38.0) 08/17/16 07:20 Specimen Source Arterial 08/20/16 08:15 Sample Site Right Radial 08/20/16 08:15 pH 7.33 (7.35-7.45) L 08/20/16 08:15 pCO2 55.0 mmHg (35.0-45.0) H 08/20/16 08:15 pO2 92.0 mmHg (80.0-100.0) 08/20/16 08:15 HCO3 26.5 mEq/L (20.0-26.0) H 08/20/16 08:15 Base Excess 2.0 mEq/L (-3.0-3.0) 08/20/16 08:15 O2 Saturation 97.0 % (92.0-100.0) 08/20/16 08:15 Estuardo Test POSITIVE 08/20/16 08:15 Vent Rate NA 08/20/16 08:15 Inspired O2 32 08/20/16 08:15 Tidal Volume NA 08/20/16 08:15 PEEP NA 08/20/16 08:15 Pressure (ins/psv/peep) NA 08/20/16 08:15 Critical Value CSILVA 08/20/16 08:15 Sodium 131 mEq/L (136-145) L 08/21/16 04:45 Potassium 3.9 mEq/L (3.5-5.1) 08/21/16 04:45 Chloride 98 mEq/L (98-107) 08/21/16 04:45 Carbon Dioxide 26.6 mEq/L (21.0-31.0) 08/21/16 04:45 Anion Gap 10.3 (7.0-16.0) 08/21/16 04:45 BUN 80 mg/dL (7-25) H 08/21/16 04:45 Creatinine 5.7 mg/dL (0.7-1.3) H* 08/21/16 04:45 Est GFR ( Amer) 13.7 ml/min (>90) 08/21/16 04:45 Est GFR (Non-Af Amer) 11.3 ml/min 08/21/16 04:45 BUN/Creatinine Ratio 14.0 08/21/16 04:45 Glucose 156 mg/dL (70-105) H 08/21/16 04:45 POC Glucose 111 MG/DL (70 - 105) H 08/15/16 08:03 Hemoglobin A1c % 4.8 % (4.0-6.0) 08/13/16 06:04 Whole Bld Lactic Acid 1.54 mmol/L (0.60-1.99) 08/13/16 06:04 Calcium 9.0 mg/dL (8.6-10.3) 08/21/16 04:45 Phosphorus 5.5 mg/dL (2.5-5.0) H 07/19/16 09:50 Magnesium 1.9 mg/dL (1.9-2.7) 08/04/16 05:45 Iron 42 ug/dL (38-169) 06/28/16 04:38 TIBC 269 ug/dL (250-450) 06/28/16 04:38 Iron Saturation 16 % (15-55) 06/28/16 04:38 Unsaturated IBC 227 ug/dL (111-343) 06/28/16 04:38 Ferritin 150 ng/mL (30-400) 06/26/16 08:30 Total Bilirubin 1.0 mg/dL (0.3-1.0) 08/18/16 05:18 Direct Bilirubin 0.70 mg/dL (0.0-0.2) H 06/28/16 04:38 GGTP 14 IU/L (0-65) 06/28/16 04:38 AST 16 U/L (13-39) 08/18/16 05:18 ALT 11 U/L (7-52) 08/18/16 05:18 Alkaline Phosphatase 39 U/L (34-104) 08/18/16 05:18 Ammonia 73 umol/L (16-53) H 08/12/16 05:19 Troponin I < 0.01 ng/mL (0.01-0.05) L 06/22/16 19:33 B-Natriuretic Peptide 668.0 pg/mL (5.0-100.0) H 06/22/16 19:33 Total Protein 7.9 gm/dL (6.0-8.3) 08/18/16 05:18 Albumin 2.8 gm/dL (4.2-5.5) L 08/18/16 05:18 Globulin 5.1 gm/dL 08/18/16 05:18 Albumin/Globulin Ratio 0.6 (1.0-1.8) L 08/18/16 05:18 Amylase 28 U/L (29-103) L 07/02/16 06:40 Lipase 31 U/L (11-82) 07/02/16 06:40 TSH 2.98 uIU/ml (0.34-5.60) 08/13/16 06:04 Urine Source CLEAN C 06/29/16 05:55 Urine Color YELLOW 06/29/16 05:55 Urine Clarity HAZY (CLEAR) 06/29/16 05:55 Urine pH 5.5 06/29/16 05:55 Ur Specific [place] 1.015 (1.005-1.030) 06/29/16 05:55 Urine Protein 30 mg/dL (NEGATIVE) H 06/29/16 05:55 Urine Glucose (UA) NEGATIVE mg/dL (NEGATIVE) 06/29/16 05:55 Urine Ketones NEGATIVE mg/dL (NEGATIVE) 06/29/16 05:55 Urine Blood NEGATIVE (NEGATIVE) 06/29/16 05:55 Urine Nitrate NEGATIVE (NEGATIVE) 06/29/16 05:55 Urine Bilirubin NEGATIVE (NEGATIVE) 06/29/16 05:55 Urine Urobilinogen 0.2 E.U./dL (0.2 - 1.0) 06/29/16 05:55 Ur Leukocyte Esterase TRACE (NEGATIVE) H 06/29/16 05:55 Urine RBC 0-2 /hpf (0-5) H 06/29/16 05:55 Urine WBC 6-10 /hpf (0-5) H 06/29/16 05:55 Ur Epithelial Cells FEW /lpf (FEW) 06/29/16 05:55 Urine Bacteria MANY /hpf (NONE SEEN) 06/29/16 05:55 Stool Occult Blood POSITIVE (NEGATIVE) 08/17/16 11:00 Stool Leukocyte NO WBC SEEN 08/17/16 11:00 Gentamicin Trough ug/ml (0.2-2.0) 08/12/16 05:19 Random Vancomycin 24.7 ug/mL (5.0-40.0) 08/21/16 04:45 RPR NONREACTIVE (NONREACTIVE) 06/22/16 19:33 Hepatitis A IgM Ab Negative (Negative) 06/29/16 05:49 Hep Bs Antigen Negative (Negative) 06/29/16 05:49 Hep B Core IgM Ab Negative (Negative) 06/29/16 05:49 Hepatitis C Antibody >11.0 s/co ratio (0.0-0.9) H 06/29/16 05:49 Blood Type A POSITIVE 08/10/16 21:07 Antibody Screen NEGATIVE 08/10/16 21:07 Crossmatch See Detail 08/10/16 21:07 - Physical Exam Vitals and I&O: Vital Signs Temp 97.8 F 08/21/16 05:00 Pulse 103 08/21/16 05:00 Resp 16 08/21/16 05:00 BP 106/53 08/21/16 05:00 Pulse Ox 97 08/21/16 05:00 Intake & Output 08/20/16 08/21/16 08/21/16 18:59 06:59 18:59 Intake Total 120 300 Output Total 0 Balance 120 300 Intake: Oral 120 300 Output: Urine 0 Other: # Bowel Movements 200 Stool Characteristics Liquid Black Active Medications: Current Medications Acetaminophen (Tylenol) 650 mg PO Q6H PRN PRN Reason: temperature above 100F Stop: 09/28/16 16:14 Last Admin: 07/30/16 16:27 Dose: 650 mg Calamine/Phenol (Calmoseptine) 1 appl TP QID [facility] Stop: 10/14/16 12:59 Last Admin: 08/21/16 11:19 Dose: 1 appl Diphenhydramine HCl (Benadryl 50 Mg/Ml) 50 mg IM Q8HR PRN PRN Reason: Agitation Stop: 08/25/16 12:10 Last Admin: 08/14/16 22:33 Dose: 50 mg Diphenhydramine HCl (Benadryl 50 Mg/Ml) 25 mg IVP Q6HR PRN PRN Reason: itching Stop: 10/11/16 03:12 Last Admin: 08/14/16 11:25 Dose: 25 mg Docusate Sodium (Colace) 100 mg PO Q12HR [facility] Stop: 09/16/16 08:59 Last Admin: 08/21/16 11:18 Dose: 100 mg Haloperidol Lactate (Haldol) 5 mg IM Q8HR PRN PRN Reason: Agitation Stop: 08/25/16 12:10 Last Admin: 08/14/16 13:15 Dose: 5 mg Hydrocortisone Sodium Succinate (Solu-Cortef) 50 mg IVP Q8H [facility] Stop: 10/09/16 15:59 Last Admin: 08/21/16 11:03 Dose: 50 mg Sodium Chloride (Nacl 0.9%) 1,000 mls @ 10 mls/hr IV .Q24H [facility] Stop: 10/15/16 15:01 Last Admin: 08/20/16 08:31 Dose: Not Given Vancomycin HCl 2 gm/ Sodium (Chloride) 500 mls @ 250 mls/hr IV ONCE ONE Stop: 08/22/16 06:59 Lactobacillus Rhamnosus (Culturelle) 1 each PO DAILY [facility] Stop: 10/12/16 08:59 Last Admin: 08/21/16 11:18 Dose: 1 each Lactulose (Cephulac) 20 gm PO BID [facility] Stop: 10/17/16 08:59 Last Admin: 08/21/16 11:18 Dose: Not Given Levetiracetam (Keppra) 500 mg PO BID [facility] Stop: 10/19/16 16:59 Last Admin: 08/21/16 11:18 Dose: 500 mg Lorazepam (Ativan) 2 mg IVP Q2HR PRN; Protocol PRN Reason: Seizures Stop: 10/19/16 10:06 Metronidazole (Flagyl) 500 mg PO TID [facility] Stop: 08/31/16 21:01 Last Admin: 08/21/16 11:18 Dose: 500 mg Miscellaneous (Clinical Monitoring) 1 ea MC DAILY PRN PRN Reason: RENAL Stop: 10/06/16 08:17 Miscellaneous (Probiotic Screen) 1 ea MC PRN PRN PRN Reason: PROTOCOL Stop: 10/11/16 14:12 Morphine Sulfate (Morphine) 2 mg IV Q4HR PRN PRN Reason: Pain (Moderate) Stop: 10/15/16 13:36 Last Admin: 08/20/16 16:29 Dose: 2 mg Pantoprazole Sodium (Protonix) 40 mg IVP BID [facility] Stop: 10/19/16 16:59 Last Admin: 08/21/16 11:02 Dose: 40 mg Sodium Bicarbonate (Sodium Bicarb) 50 meq IVP BID [facility] Stop: 10/13/16 16:59 Last Admin: 08/21/16 12:42 Dose: 50 meq General: Alert, Mild distress HEENT: Atraumatic, Mucous membr. moist/pink Neck: Supple, +2 carotid pulse wo bruit Cardiovascular: Regular rate, Normal S1, Normal S2 Lungs: Other (scattered rhonhci) Abdomen: Bowel sounds, Soft Extremities: Edema ((+) 3 bipedal edema) Neurological: Sensation intact Skin: no Rash - Procedures Procedures: Procedures Procedure Code Date ARTERY-VEIN NONAUTOGRAFT 11374 06/22/16 BLOOD TRANSFUSION SERVICE 03735 06/22/16 BYPASS L BRACH ART TO UP ARM VEIN W NONAUT SUB, OPEN [id number] 06/22/16 FLUOROSCOPY OF SUP VENA CAVA USING [facility] CONTRAST, GUIDANCE [id number] 06/22/16 INSERTION OF INFUSION DEV INTO SUP VENA CAVA, PERC APPROACH [id number] 06/22/16 PLACE CATHETER IN VEIN 03113 06/22/16 TRANSFUSE NONAUT RED BLOOD CELLS IN PERIPH VEIN, PERC [id number] 06/22/16 Assessment/Plan - Problem List Patient Problems: All Active Problems Anemia (Acute) D64.9 ESRD (end stage renal disease) (Acute) ESRD (end stage renal disease) on dialysis (Acute) N18.6, Z99.2 ESRD (end stage renal disease) on dialysis (Acute) N18.6, Z99.2 HYPOTENSION (Acute) HYPOXEMIA (Acute) MEDICAL EVALUATION PER DR FRY (Acute) septic shock (Acute) - Assessment Assessment: septic shock (better) esrd on hd persistent cellulitis b/l lower ext acute on chronic anemia possible gi bleed ohs chronic a. fib hypothyroid anasarca functional quadriplegia chronic venous stasis dermatitis acute decomp psychosis s/p left avg G (+) cocci in clusters septicemia Resp acidosis on bipap new onset seizure activity - Plan Plan: Lab - Result Diagrams 07/19/16 09:50 Lab - Result Diagrams 07/22/16 05:21 Lab - Result Diagrams 07/24/16 05:00 Lab - Result Diagrams Lab - Result Diagrams 08/04/16 08:33 Lab - Result Diagrams 08/05/16 05:00 08/04/16 05:45 08/04/16 05:45 07/28/16 05:30 07/28/16 05:30 07/24/16 05:00 07/20/16 05:50 07/19/16 09:50 latest hgb/hct were 9.9/29.3 developed septic shock, off pressors culture grew G (+) cocci, WBC down 12.2 continue ABx transfuse as necessary f/u electrolytes, cbc new right Anton cath new onset seiure activity this am for hd today Lab - Result Diagrams 07/19/16 09:50 07/20/16 05:50 Lab - Result Diagrams 07/21/16 06:16 07/20/16 05:50 Lab - Result Diagrams 07/26/16 11:05 07/24/16 05:00 Lab - Result Diagrams 07/29/16 05:55 07/28/16 05:30 Lab - Result Diagrams 08/12/16 05:19 08/12/16 05:19 Lab - Result Diagrams 08/17/16 07:20 08/17/16 07:20
[2016-08-21] MEDS: Sodium Chloride 0.9% 1,000 ML IV SCH (16:38)
--- NOTE | 2016-08-21 22:29 | Progress Notes ---
SUBJECTIVE: The patient was seen in his bed. Will are going to have hemodialysis today. Per the patient he is doing better. Only he does not use the BIPAP on day time, only for bedside. In the morning, he is only on nasal cannula and tolerating it well. No obvious signs of respiratory distress for possible PICC line or midline insertion for today. OBJECTIVE: HEENT: Head is atraumatic and normocephalic. Eyes: Bilateral conjunctivae are clear for injection. NECK: Supple. No JVD. CARDIOVASCULAR: S1 and S2 heard, irregularly, atrial fibrillation on the monitor. PULMONARY: Mild inspiratory wheezing noted. GASTROINTESTINAL: Soft and nontender without guarding. MUSCULOSKELETAL: Bilateral lower extremity edema without clubbing. ASSESSMENT: 1. Respiratory failure. 2. End-stage renal disease, on hemodialysis. 3. Atrial fibrillation. 4. Anemia. 5. Hypothyroidism. 6. Chronic bilateral lower extremity cellulitis. 7. Obesity. PLAN: We will continue to monitor the patient and we will follow up with the egg caser for the patient's transfer to a fpc facility. JOB# [id number]
[2016-08-21] MEDS: Morphine Sulfate 2 mg/mL 1mL Syr IV PRN (23:52)
[2016-08-22] MEDS: Hydrocortisone Sodium Succ 100 mg Vial IVP SCH ×4 (00:30→23:46)
[2016-08-22] MEDS: Menthol/Zinc Oxide Oint 113gm Tube TP SCH ×4 (08:02→22:13)
[2016-08-22] MEDS: Lactulose 10 Gm/15 mL 30mL UDC PO SCH ×3 (08:54→16:20)
[2016-08-22] MEDS: Lactobacillus Rhamnosus 10 Billion CFU Capsule PO SCH (08:54)
[2016-08-22] MEDS: Venelex 60gm Tube TP SCH (08:56)
[2016-08-22] MEDS: Sodium Bicarbonate 8.4% 50mEq PFS IVP SCH ×2 (09:06→16:20)
[2016-08-22 10:28] LABS: HEMATOCRIT 30.2 % (39.0-49.0); HEMOGLOBIN 10.1 gm/dL (13.2-17.3); MEAN CELL VOLUME 84.1 fl (80-99); MEAN CORPUSCULAR HGB CONC 33.4 pg (28.0-36.0); MEAN PLATELET VOLUME 9.3 fl; PLATELET COUNT 64 Th/cmm (150-400); RED BLOOD COUNT 3.59 Mil/cmm (4.30-5.70)
[2016-08-22 11:10] LABS: WHITE BLOOD COUNT 12.5 Th/cmm (4.8-10.8)
[2016-08-22 11:17] LABS: BAND NEUTROPHILE 1 % (0-10); NEUTROPHILS 94 % (40-80); TOTAL CELLS COUNTED 100
[2016-08-22 11:18] LABS: PLATELET ESTIMATE DECREASED PLATELETS (NORMAL); PLATELET MORPHOLOGY NORMAL (NORMAL)
--- NOTE | 2016-08-22 14:35 | General Progress Note ---
Subjective - Review of Systems Service Date: 08/22/16 Subjective: more alert, eating lunch, on [place] Objective - Results Result Diagrams: 08/22/16 10:10 08/21/16 04:45 Recent Labs: Laboratory Last Values WBC 12.5 Th/cmm (4.8-10.8) H 08/22/16 10:10 RBC 3.59 Mil/cmm (4.30-5.70) L 08/22/16 10:10 Hgb 10.1 gm/dL (13.2-17.3) L 08/22/16 10:10 Hct 30.2 % (39.0-49.0) L 08/22/16 10:10 MCV 84.1 fl (80-99) 08/22/16 10:10 MCH 28.0 pg (26.0-30.0) 08/22/16 10:10 MCHC Differential 33.4 pg (28.0-36.0) 08/22/16 10:10 RDW 15.0 % (11.5-20.0) 08/22/16 10:10 Plt Count 64 Th/cmm (150-400) L 08/22/16 10:10 MPV 9.3 fl 08/22/16 10:10 Neutrophils % 56.8 % (40.0-80.0) 07/07/16 06:00 Band Neutrophils % 1 % (0-10) 08/22/16 10:10 Lymphocytes % 18.4 % (20.0-50.0) L 07/07/16 06:00 Monocytes % 13.8 % (2.0-10.0) H 07/07/16 06:00 Eosinophils % 11.0 % (0.0-5.0) H 07/07/16 06:00 Basophils % 0.0 % (0.0-2.0) 07/07/16 06:00 Neutrophils (Manual) 94 % (40-80) H 08/22/16 10:10 Lymphocytes 2 % (20-50) L 08/22/16 10:10 Monocytes 3 % (2-10) 08/22/16 10:10 Eosinophils 1 % (0-5) 08/18/16 05:18 Basophils 3 % (0-3) 08/04/16 08:33 Metamyelocytes 1 % (0-0) H 08/14/16 07:40 Myelocytes 1 % 07/14/16 16:00 Nucleated RBCs 1.0 % (0-0) H 08/15/16 09:30 Hypochromia 1+ 07/20/16 23:30 Platelet Estimate DECREASED PLATELETS (NORMAL) 08/22/16 10:10 Platelet Morphology NORMAL (NORMAL) 08/22/16 10:10 Polychromasia 1+ 07/20/16 23:30 Anisocytosis 1+ 08/16/16 05:16 Microcytosis 1+ 07/14/16 16:00 RBC Morph Micro Appear NORMAL (NORMAL) 08/22/16 10:10 PT 17.3 SECONDS (9.5-11.5) H 08/17/16 07:20 INR 1.62 (0.5-1.4) H 08/17/16 07:20 PTT (Actin FS) 37.7 SECONDS (26.0-38.0) 08/17/16 07:20 Specimen Source Arterial 08/20/16 08:15 Sample Site Right Radial 08/20/16 08:15 pH 7.33 (7.35-7.45) L 08/20/16 08:15 pCO2 55.0 mmHg (35.0-45.0) H 08/20/16 08:15 pO2 92.0 mmHg (80.0-100.0) 08/20/16 08:15 HCO3 26.5 mEq/L (20.0-26.0) H 08/20/16 08:15 Base Excess 2.0 mEq/L (-3.0-3.0) 08/20/16 08:15 O2 Saturation 97.0 % (92.0-100.0) 08/20/16 08:15 [place] Test POSITIVE 08/20/16 08:15 Vent Rate NA 08/20/16 08:15 Inspired O2 32 08/20/16 08:15 Tidal Volume NA 08/20/16 08:15 PEEP NA 08/20/16 08:15 Pressure (ins/psv/peep) NA 08/20/16 08:15 Critical Value CSILVA 08/20/16 08:15 Sodium 131 mEq/L (136-145) L 08/21/16 04:45 Potassium 3.9 mEq/L (3.5-5.1) 08/21/16 04:45 Chloride 98 mEq/L (98-107) 08/21/16 04:45 Carbon Dioxide 26.6 mEq/L (21.0-31.0) 08/21/16 04:45 Anion Gap 10.3 (7.0-16.0) 08/21/16 04:45 BUN 80 mg/dL (7-25) H 08/21/16 04:45 Creatinine 5.7 mg/dL (0.7-1.3) H* 08/21/16 04:45 Est GFR ( Amer) 13.7 ml/min (>90) 08/21/16 04:45 Est GFR (Non-Af Amer) 11.3 ml/min 08/21/16 04:45 BUN/Creatinine Ratio 14.0 08/21/16 04:45 Glucose 156 mg/dL (70-105) H 08/21/16 04:45 POC Glucose 111 MG/DL (70 - 105) H 08/15/16 08:03 Hemoglobin A1c % 4.8 % (4.0-6.0) 08/13/16 06:04 Whole Bld Lactic Acid 1.54 mmol/L (0.60-1.99) 08/13/16 06:04 Calcium 9.0 mg/dL (8.6-10.3) 08/21/16 04:45 Phosphorus 5.5 mg/dL (2.5-5.0) H 07/19/16 09:50 Magnesium 1.9 mg/dL (1.9-2.7) 08/04/16 05:45 Iron 42 ug/dL (38-169) 06/28/16 04:38 TIBC 269 ug/dL (250-450) 06/28/16 04:38 Iron Saturation 16 % (15-55) 06/28/16 04:38 Unsaturated IBC 227 ug/dL (111-343) 06/28/16 04:38 Ferritin 150 ng/mL (30-400) 06/26/16 08:30 Total Bilirubin 1.0 mg/dL (0.3-1.0) 08/18/16 05:18 Direct Bilirubin 0.70 mg/dL (0.0-0.2) H 06/28/16 04:38 GGTP 14 IU/L (0-65) 06/28/16 04:38 AST 16 U/L (13-39) 08/18/16 05:18 ALT 11 U/L (7-52) 08/18/16 05:18 Alkaline Phosphatase 39 U/L (34-104) 08/18/16 05:18 Ammonia 73 umol/L (16-53) H 08/12/16 05:19 Troponin I < 0.01 ng/mL (0.01-0.05) L 06/22/16 19:33 B-Natriuretic Peptide 668.0 pg/mL (5.0-100.0) H 06/22/16 19:33 Total Protein 7.9 gm/dL (6.0-8.3) 08/18/16 05:18 Albumin 2.8 gm/dL (4.2-5.5) L 08/18/16 05:18 Globulin 5.1 gm/dL 08/18/16 05:18 Albumin/Globulin Ratio 0.6 (1.0-1.8) L 08/18/16 05:18 Amylase 28 U/L (29-103) L 07/02/16 06:40 Lipase 31 U/L (11-82) 07/02/16 06:40 TSH 2.98 uIU/ml (0.34-5.60) 08/13/16 06:04 Urine Source CLEAN C 06/29/16 05:55 Urine Color YELLOW 06/29/16 05:55 Urine Clarity HAZY (CLEAR) 06/29/16 05:55 Urine pH 5.5 06/29/16 05:55 Ur Specific [place] 1.015 (1.005-1.030) 06/29/16 05:55 Urine Protein 30 mg/dL (NEGATIVE) H 06/29/16 05:55 Urine Glucose (UA) NEGATIVE mg/dL (NEGATIVE) 06/29/16 05:55 Urine Ketones NEGATIVE mg/dL (NEGATIVE) 06/29/16 05:55 Urine Blood NEGATIVE (NEGATIVE) 06/29/16 05:55 Urine Nitrate NEGATIVE (NEGATIVE) 06/29/16 05:55 Urine Bilirubin NEGATIVE (NEGATIVE) 06/29/16 05:55 Urine Urobilinogen 0.2 E.U./dL (0.2 - 1.0) 06/29/16 05:55 Ur Leukocyte Esterase TRACE (NEGATIVE) H 06/29/16 05:55 Urine RBC 0-2 /hpf (0-5) H 06/29/16 05:55 Urine WBC 6-10 /hpf (0-5) H 06/29/16 05:55 Ur Epithelial Cells FEW /lpf (FEW) 06/29/16 05:55 Urine Bacteria MANY /hpf (NONE SEEN) 06/29/16 05:55 Stool Occult Blood POSITIVE (NEGATIVE) 08/17/16 11:00 Stool Leukocyte NO WBC SEEN 08/17/16 11:00 Gentamicin Trough ug/ml (0.2-2.0) 08/12/16 05:19 Random Vancomycin 24.7 ug/mL (5.0-40.0) 08/21/16 04:45 RPR NONREACTIVE (NONREACTIVE) 06/22/16 19:33 Hepatitis A IgM Ab Negative (Negative) 06/29/16 05:49 Hep Bs Antigen Negative (Negative) 06/29/16 05:49 Hep B Core IgM Ab Negative (Negative) 06/29/16 05:49 Hepatitis C Antibody >11.0 s/co ratio (0.0-0.9) H 06/29/16 05:49 Blood Type A POSITIVE 08/10/16 21:07 Antibody Screen NEGATIVE 08/10/16 21:07 Crossmatch See Detail 08/10/16 21:07 - Physical Exam Vitals and I&O: Vital Signs Temp 97.8 F 08/22/16 12:29 Pulse 109 08/22/16 12:29 Resp 17 08/22/16 12:29 BP 107/65 08/22/16 12:29 Pulse Ox 100 08/22/16 12:29 Intake & Output 08/21/16 08/22/16 08/22/16 18:59 06:59 18:59 Intake Total 962.167 100 Output Total 0 Balance 962.167 100 Intake: Intake, IV Amount 962.167 Sodium Chloride 0.9% 1, 962.167 000 ml @ 10 mls/hr IV . Q24H [facility] Rx#:[id number] Oral 100 Output: Urine 0 Other: Stool Characteristics Liquid Liquid Liquid Active Medications: Current Medications Acetaminophen (Tylenol) 650 mg PO Q6H PRN PRN Reason: temperature above 100F Stop: 09/28/16 16:14 Last Admin: 07/30/16 16:27 Dose: 650 mg Calamine/Phenol (Calmoseptine) 1 appl TP QID [facility] Stop: 10/14/16 12:59 Last Admin: 08/22/16 14:20 Dose: 1 appl Diphenhydramine HCl (Benadryl 50 Mg/Ml) 50 mg IM Q8HR PRN PRN Reason: Agitation Stop: 08/25/16 12:10 Last Admin: 08/21/16 23:54 Dose: 50 mg Diphenhydramine HCl (Benadryl 50 Mg/Ml) 25 mg IVP Q6HR PRN PRN Reason: itching Stop: 10/11/16 03:12 Last Admin: 08/14/16 11:25 Dose: 25 mg Docusate Sodium (Colace) 100 mg PO Q12HR [facility] Stop: 09/16/16 08:59 Last Admin: 08/22/16 08:54 Dose: 100 mg Haloperidol Lactate (Haldol) 5 mg IM Q8HR PRN PRN Reason: Agitation Stop: 08/25/16 12:10 Last Admin: 08/14/16 13:15 Dose: 5 mg Hydrocortisone Sodium Succinate (Solu-Cortef) 50 mg IVP Q8H [facility] Stop: 10/09/16 15:59 Last Admin: 08/22/16 08:54 Dose: 50 mg Sodium Chloride (Nacl 0.9%) 1,000 mls @ 10 mls/hr IV .Q24H [facility] Stop: 10/15/16 15:01 Last Admin: 08/21/16 16:38 Dose: 10 mls/hr Lactobacillus Rhamnosus (Culturelle) 1 each PO DAILY [facility] Stop: 10/12/16 08:59 Last Admin: 08/22/16 08:54 Dose: 1 each Lactulose (Cephulac) 20 gm PO BID [facility] Stop: 10/17/16 08:59 Last Admin: 08/22/16 10:14 Dose: Not Given Levetiracetam (Keppra) 500 mg PO BID [facility] Stop: 10/19/16 16:59 Last Admin: 08/22/16 08:54 Dose: 500 mg Lorazepam (Ativan) 2 mg IVP Q2HR PRN; Protocol PRN Reason: Seizures Stop: 10/19/16 10:06 Metronidazole (Flagyl) 500 mg PO TID [facility] Stop: 08/31/16 21:01 Last Admin: 08/22/16 14:20 Dose: 500 mg Miscellaneous (Clinical Monitoring) 1 ea MC DAILY PRN PRN Reason: RENAL Stop: 10/06/16 08:17 Miscellaneous (Probiotic Screen) 1 ea MC PRN PRN PRN Reason: PROTOCOL Stop: 10/11/16 14:12 Morphine Sulfate (Morphine) 2 mg IV Q4HR PRN PRN Reason: Pain (Moderate) Stop: 10/15/16 13:36 Last Admin: 08/21/16 23:52 Dose: 2 mg Pantoprazole Sodium (Protonix) 40 mg IVP BID [facility] Stop: 10/19/16 16:59 Last Admin: 08/22/16 09:05 Dose: 40 mg Sodium Bicarbonate (Sodium Bicarb) 50 meq IVP BID [facility] Stop: 10/13/16 16:59 Last Admin: 08/22/16 09:06 Dose: 50 meq General: Alert, Cooperative, Mild distress HEENT: Atraumatic, Mucous membr. moist/pink Neck: Supple, +2 carotid pulse wo bruit Cardiovascular: Normal S1, Normal S2 Lungs: Other (few rhonchi) Abdomen: Bowel sounds, Soft, Obese Extremities: Edema ((+) 3 bipedal edema) Neurological: Sensation intact Skin: no Rash - Procedures Procedures: Procedures Procedure Code Date ARTERY-VEIN NONAUTOGRAFT 84527 06/22/16 BLOOD TRANSFUSION SERVICE 62011 06/22/16 BYPASS L BRACH ART TO UP ARM VEIN W NONAUT SUB, OPEN [id number] 06/22/16 FLUOROSCOPY OF SUP VENA CAVA USING [facility] CONTRAST, GUIDANCE [id number] 06/22/16 INSERTION OF INFUSION DEV INTO SUP VENA CAVA, PERC APPROACH [id number] 06/22/[address] CATHETER IN VEIN 75483 06/22/16 TRANSFUSE NONAUT RED BLOOD CELLS IN PERIPH VEIN, PERC [id number] 06/22/16 Assessment/Plan - Problem List Patient Problems: All Active Problems Anemia (Acute) D64.9 ESRD (end stage renal disease) (Acute) ESRD (end stage renal disease) on dialysis (Acute) N18.6, Z99.2 ESRD (end stage renal disease) on dialysis (Acute) N18.6, Z99.2 HYPOTENSION (Acute) HYPOXEMIA (Acute) MEDICAL EVALUATION PER DR FRY (Acute) septic shock (Acute) - Assessment Assessment: septic shock (better) esrd on hd persistent cellulitis b/l lower ext acute on chronic anemia possible gi bleed ohs chronic a. fib hypothyroid anasarca functional quadriplegia chronic venous stasis dermatitis acute decomp psychosis s/p left avg G (+) cocci in clusters septicemia new onset seizure activity - Plan Plan: Lab - Result Diagrams 07/19/16 09:50 Lab - Result Diagrams 07/22/16 05:21 Lab - Result Diagrams 07/24/16 05:00 Lab - Result Diagrams Lab - Result Diagrams 08/04/16 08:33 Lab - Result Diagrams 08/05/16 05:00 08/04/16 05:45 08/04/16 05:45 07/28/16 05:30 07/28/16 05:30 07/24/16 05:00 07/20/16 05:50 07/19/16 09:50 latest hgb/hct were 10.1/32.2 developed septic shock, off pressors culture grew G (+) cocci, WBC down 12.5 continue ABx transfuse as necessary f/u electrolytes, cbc new right Anton cath new onset seiure activity for hd tomorrow Lab - Result Diagrams 07/19/16 09:50 07/20/16 05:50 Lab - Result Diagrams 07/21/16 06:16 07/20/16 05:50 Lab - Result Diagrams 07/26/16 11:05 07/24/16 05:00 Lab - Result Diagrams 07/29/16 05:55 07/28/16 05:30 Lab - Result Diagrams 08/12/16 05:19 08/12/16 05:19 Lab - Result Diagrams 08/17/16 07:20 08/17/16 07:20
--- NOTE | 2016-08-22 16:15 | Internal Medicine Prog Note ---
Internal Medicine Subjective - Subjective Patient seen and examined:: with staff Patient is:: awake, in bed Patient Complaints of:: other (no complaints) Per staff patient is:: no adverse event, eating well Internal Medicine Objective - Results Result Diagrams: 08/22/16 10:10 08/21/16 04:45 Recent Labs: Laboratory Last Values WBC 12.5 Th/cmm (4.8-10.8) H 08/22/16 10:10 RBC 3.59 Mil/cmm (4.30-5.70) L 08/22/16 10:10 Hgb 10.1 gm/dL (13.2-17.3) L 08/22/16 10:10 Hct 30.2 % (39.0-49.0) L 08/22/16 10:10 MCV 84.1 fl (80-99) 08/22/16 10:10 MCH 28.0 pg (26.0-30.0) 08/22/16 10:10 MCHC Differential 33.4 pg (28.0-36.0) 08/22/16 10:10 RDW 15.0 % (11.5-20.0) 08/22/16 10:10 Plt Count 64 Th/cmm (150-400) L 08/22/16 10:10 MPV 9.3 fl 08/22/16 10:10 Neutrophils % 56.8 % (40.0-80.0) 07/07/16 06:00 Band Neutrophils % 1 % (0-10) 08/22/16 10:10 Lymphocytes % 18.4 % (20.0-50.0) L 07/07/16 06:00 Monocytes % 13.8 % (2.0-10.0) H 07/07/16 06:00 Eosinophils % 11.0 % (0.0-5.0) H 07/07/16 06:00 Basophils % 0.0 % (0.0-2.0) 07/07/16 06:00 Neutrophils (Manual) 94 % (40-80) H 08/22/16 10:10 Lymphocytes 2 % (20-50) L 08/22/16 10:10 Monocytes 3 % (2-10) 08/22/16 10:10 Eosinophils 1 % (0-5) 08/18/16 05:18 Basophils 3 % (0-3) 08/04/16 08:33 Metamyelocytes 1 % (0-0) H 08/14/16 07:40 Myelocytes 1 % 07/14/16 16:00 Nucleated RBCs 1.0 % (0-0) H 08/15/16 09:30 Hypochromia 1+ 07/20/16 23:30 Platelet Estimate DECREASED PLATELETS (NORMAL) 08/22/16 10:10 Platelet Morphology NORMAL (NORMAL) 08/22/16 10:10 Polychromasia 1+ 07/20/16 23:30 Anisocytosis 1+ 08/16/16 05:16 Microcytosis 1+ 07/14/16 16:00 RBC Morph Micro Appear NORMAL (NORMAL) 08/22/16 10:10 PT 17.3 SECONDS (9.5-11.5) H 08/17/16 07:20 INR 1.62 (0.5-1.4) H 08/17/16 07:20 PTT (Actin FS) 37.7 SECONDS (26.0-38.0) 08/17/16 07:20 Specimen Source Arterial 08/20/16 08:15 Sample Site Right Radial 08/20/16 08:15 pH 7.33 (7.35-7.45) L 08/20/16 08:15 pCO2 55.0 mmHg (35.0-45.0) H 08/20/16 08:15 pO2 92.0 mmHg (80.0-100.0) 08/20/16 08:15 HCO3 26.5 mEq/L (20.0-26.0) H 08/20/16 08:15 Base Excess 2.0 mEq/L (-3.0-3.0) 08/20/16 08:15 O2 Saturation 97.0 % (92.0-100.0) 08/20/16 08:15 [place] Test POSITIVE 08/20/16 08:15 Vent Rate NA 08/20/16 08:15 Inspired O2 32 08/20/16 08:15 Tidal Volume NA 08/20/16 08:15 PEEP NA 08/20/16 08:15 Pressure (ins/psv/peep) NA 08/20/16 08:15 Critical Value CSILVA 08/20/16 08:15 Sodium 131 mEq/L (136-145) L 08/21/16 04:45 Potassium 3.9 mEq/L (3.5-5.1) 08/21/16 04:45 Chloride 98 mEq/L (98-107) 08/21/16 04:45 Carbon Dioxide 26.6 mEq/L (21.0-31.0) 08/21/16 04:45 Anion Gap 10.3 (7.0-16.0) 08/21/16 04:45 BUN 80 mg/dL (7-25) H 08/21/16 04:45 Creatinine 5.7 mg/dL (0.7-1.3) H* 08/21/16 04:45 Est GFR ( Amer) 13.7 ml/min (>90) 08/21/16 04:45 Est GFR (Non-Af Amer) 11.3 ml/min 08/21/16 04:45 BUN/Creatinine Ratio 14.0 08/21/16 04:45 Glucose 156 mg/dL (70-105) H 08/21/16 04:45 POC Glucose 111 MG/DL (70 - 105) H 08/15/16 08:03 Hemoglobin A1c % 4.8 % (4.0-6.0) 08/13/16 06:04 Whole Bld Lactic Acid 1.54 mmol/L (0.60-1.99) 08/13/16 06:04 Calcium 9.0 mg/dL (8.6-10.3) 08/21/16 04:45 Phosphorus 5.5 mg/dL (2.5-5.0) H 07/19/16 09:50 Magnesium 1.9 mg/dL (1.9-2.7) 08/04/16 05:45 Iron 42 ug/dL (38-169) 06/28/16 04:38 TIBC 269 ug/dL (250-450) 06/28/16 04:38 Iron Saturation 16 % (15-55) 06/28/16 04:38 Unsaturated IBC 227 ug/dL (111-343) 06/28/16 04:38 Ferritin 150 ng/mL (30-400) 06/26/16 08:30 Total Bilirubin 1.0 mg/dL (0.3-1.0) 08/18/16 05:18 Direct Bilirubin 0.70 mg/dL (0.0-0.2) H 06/28/16 04:38 GGTP 14 IU/L (0-65) 06/28/16 04:38 AST 16 U/L (13-39) 08/18/16 05:18 ALT 11 U/L (7-52) 08/18/16 05:18 Alkaline Phosphatase 39 U/L (34-104) 08/18/16 05:18 Ammonia 73 umol/L (16-53) H 08/12/16 05:19 Troponin I < 0.01 ng/mL (0.01-0.05) L 06/22/16 19:33 B-Natriuretic Peptide 668.0 pg/mL (5.0-100.0) H 06/22/16 19:33 Total Protein 7.9 gm/dL (6.0-8.3) 08/18/16 05:18 Albumin 2.8 gm/dL (4.2-5.5) L 08/18/16 05:18 Globulin 5.1 gm/dL 08/18/16 05:18 Albumin/Globulin Ratio 0.6 (1.0-1.8) L 08/18/16 05:18 Amylase 28 U/L (29-103) L 07/02/16 06:40 Lipase 31 U/L (11-82) 07/02/16 06:40 TSH 2.98 uIU/ml (0.34-5.60) 08/13/16 06:04 Urine Source CLEAN C 06/29/16 05:55 Urine Color YELLOW 06/29/16 05:55 Urine Clarity HAZY (CLEAR) 06/29/16 05:55 Urine pH 5.5 06/29/16 05:55 Ur Specific [place] 1.015 (1.005-1.030) 06/29/16 05:55 Urine Protein 30 mg/dL (NEGATIVE) H 06/29/16 05:55 Urine Glucose (UA) NEGATIVE mg/dL (NEGATIVE) 06/29/16 05:55 Urine Ketones NEGATIVE mg/dL (NEGATIVE) 06/29/16 05:55 Urine Blood NEGATIVE (NEGATIVE) 06/29/16 05:55 Urine Nitrate NEGATIVE (NEGATIVE) 06/29/16 05:55 Urine Bilirubin NEGATIVE (NEGATIVE) 06/29/16 05:55 Urine Urobilinogen 0.2 E.U./dL (0.2 - 1.0) 06/29/16 05:55 Ur Leukocyte Esterase TRACE (NEGATIVE) H 06/29/16 05:55 Urine RBC 0-2 /hpf (0-5) H 06/29/16 05:55 Urine WBC 6-10 /hpf (0-5) H 06/29/16 05:55 Ur Epithelial Cells FEW /lpf (FEW) 06/29/16 05:55 Urine Bacteria MANY /hpf (NONE SEEN) 06/29/16 05:55 Stool Occult Blood POSITIVE (NEGATIVE) 08/17/16 11:00 Stool Leukocyte NO WBC SEEN 08/17/16 11:00 Gentamicin Trough ug/ml (0.2-2.0) 08/12/16 05:19 Random Vancomycin 24.7 ug/mL (5.0-40.0) 08/21/16 04:45 RPR NONREACTIVE (NONREACTIVE) 06/22/16 19:33 Hepatitis A IgM Ab Negative (Negative) 06/29/16 05:49 Hep Bs Antigen Negative (Negative) 06/29/16 05:49 Hep B Core IgM Ab Negative (Negative) 06/29/16 05:49 Hepatitis C Antibody >11.0 s/co ratio (0.0-0.9) H 06/29/16 05:49 Blood Type A POSITIVE 08/10/16 21:07 Antibody Screen NEGATIVE 08/10/16 21:07 Crossmatch See Detail 08/10/16 21:07 - Physical Exam Vitals and I&O: Vital Signs Temp 97.8 F 08/22/16 12:29 Pulse 109 08/22/16 12:29 Resp 17 08/22/16 14:00 BP 107/65 08/22/16 12:29 Pulse Ox 100 08/22/16 12:29 Intake & Output 08/21/16 08/22/16 08/22/16 18:59 06:59 18:59 Intake Total 962.167 100 Output Total 0 Balance 962.167 100 Intake: Intake, IV Amount 962.167 Sodium Chloride 0.9% 1, 962.167 000 ml @ 10 mls/hr IV . Q24H [facility] Rx#:[id number] Oral 100 Output: Urine 0 Other: Stool Characteristics Liquid Liquid Liquid Active Medications: Current Medications Acetaminophen (Tylenol) 650 mg PO Q6H PRN PRN Reason: temperature above 100F Stop: 09/28/16 16:14 Last Admin: 07/30/16 16:27 Dose: 650 mg Calamine/Phenol (Calmoseptine) 1 appl TP QID [facility] Stop: 10/14/16 12:59 Last Admin: 08/22/16 14:20 Dose: 1 appl Diphenhydramine HCl (Benadryl 50 Mg/Ml) 50 mg IM Q8HR PRN PRN Reason: Agitation Stop: 08/25/16 12:10 Last Admin: 08/21/16 23:54 Dose: 50 mg Diphenhydramine HCl (Benadryl 50 Mg/Ml) 25 mg IVP Q6HR PRN PRN Reason: itching Stop: 10/11/16 03:12 Last Admin: 08/14/16 11:25 Dose: 25 mg Docusate Sodium (Colace) 100 mg PO Q12HR [facility] Stop: 09/16/16 08:59 Last Admin: 08/22/16 08:54 Dose: 100 mg Haloperidol Lactate (Haldol) 5 mg IM Q8HR PRN PRN Reason: Agitation Stop: 08/25/16 12:10 Last Admin: 08/14/16 13:15 Dose: 5 mg Hydrocortisone Sodium Succinate (Solu-Cortef) 50 mg IVP Q8H [facility] Stop: 10/09/16 15:59 Last Admin: 08/22/16 08:54 Dose: 50 mg Sodium Chloride (Nacl 0.9%) 1,000 mls @ 10 mls/hr IV .Q24H [facility] Stop: 10/15/16 15:01 Last Admin: 08/21/16 16:38 Dose: 10 mls/hr Lactobacillus Rhamnosus (Culturelle) 1 each PO DAILY [facility] Stop: 10/12/16 08:59 Last Admin: 08/22/16 08:54 Dose: 1 each Lactulose (Cephulac) 20 gm PO BID [facility] Stop: 10/17/16 08:59 Last Admin: 08/22/16 10:14 Dose: Not Given Levetiracetam (Keppra) 500 mg PO BID [facility] Stop: 10/19/16 16:59 Last Admin: 08/22/16 08:54 Dose: 500 mg Lorazepam (Ativan) 2 mg IVP Q2HR PRN; Protocol PRN Reason: Seizures Stop: 10/19/16 10:06 Metronidazole (Flagyl) 500 mg PO TID [facility] Stop: 08/31/16 21:01 Last Admin: 08/22/16 14:20 Dose: 500 mg Miscellaneous (Clinical Monitoring) 1 ea MC DAILY PRN PRN Reason: RENAL Stop: 10/06/16 08:17 Miscellaneous (Probiotic Screen) 1 ea MC PRN PRN PRN Reason: PROTOCOL Stop: 10/11/16 14:12 Morphine Sulfate (Morphine) 2 mg IV Q4HR PRN PRN Reason: Pain (Moderate) Stop: 10/15/16 13:36 Last Admin: 08/21/16 23:52 Dose: 2 mg Pantoprazole Sodium (Protonix) 40 mg IVP BID [facility] Stop: 10/19/16 16:59 Last Admin: 08/22/16 09:05 Dose: 40 mg Sodium Bicarbonate (Sodium Bicarb) 50 meq IVP BID [facility] Stop: 10/13/16 16:59 Last Admin: 08/22/16 09:06 Dose: 50 meq General: alert, obese HEENT: NC/AT, PERRLA, EOMI, anicteric sclerae Neck: Supple, No JVD Lungs: CTAB Cardiovascular: RRR, Normal S1, Normal S2 Abdomen: soft non-tender, non-distended, positive bowel sound Extremities: no edema Neurological: no change, other (no seizures) - Procedures Procedures: Procedures Procedure Code Date ARTERY-VEIN NONAUTOGRAFT 11078 06/22/16 BLOOD TRANSFUSION SERVICE 78062 06/22/16 BYPASS L BRACH ART TO UP ARM VEIN W NONAUT SUB, OPEN [id number] 06/22/16 FLUOROSCOPY OF SUP VENA CAVA USING [facility] CONTRAST, GUIDANCE [id number] 06/22/16 INSERTION OF INFUSION DEV INTO SUP VENA CAVA, PERC APPROACH [id number] 06/22/[address] CATHETER IN VEIN 73496 06/22/16 TRANSFUSE NONAUT RED BLOOD CELLS IN PERIPH VEIN, PERC [id number] 06/22/16 Internal Medicine Assmt/Plan - Assessment Assessment: Anemia (Acute) D64.9 ESRD (end stage renal disease) (Acute) ESRD (end stage renal disease) on dialysis (Acute) N18.6, Z99.2 HYPOTENSION (Acute) HYPOXEMIA (Acute) MEDICAL EVALUATION PER DR FRY (Acute) septic shock (Acute New onset Seizures - Plan Plan: CPM
[2016-08-22] MEDS: Sodium Chloride 0.9% 1,000 ML IV SCH (16:29)
[2016-08-22] MEDS: Morphine Sulfate 2 mg/mL 1mL Syr IV PRN (20:22)
--- NOTE | 2016-08-23 02:58 | Consultation ---
The patient of Dr. Valadez. HISTORY AND PHYSICAL: This is a 51-year-old morbidly obese male patient who presented to [facility]. This is for evaluation for possible bariatric surgery. PAST MEDICAL HISTORY: CKD stage V, end-stage renal disease on dialysis, septicemia, morbid obesity, hypotension, hypertension, obesity with hypoventilation syndrome, obstructive sleep apnea, chronic atrial fibrillation, hypothyroidism, anasarca, and venous stasis and lymphedema of the legs. FAMILY HISTORY: Unremarkable. SOCIAL HISTORY: No history of smoking or alcohol abuse. ALLERGIES: ADHESIVE TAPE. PHYSICAL EXAMINATION: VITAL SIGNS: Blood pressure 130/80, pulse 80, and respirations 20. HEAD: Normocephalic. No lumps or bumps. EYES: Pupils are equal and reactive to light. Fundi show AV nicking. Sclerae white. Conjunctivae pink. NECK: Carotid 2+. Normal upstroke. JVD flat. Thyroid not palpable. Lymph nodes not palpable. CHEST: Shows increased AP diameter. No kyphosis or scoliosis. LUNGS: Bilateral bronchovesicular breath sounds. Occasional wheeze. No rales. HEART: PMI fifth intercostal space with lateral to midclavicular line. S1, S2, S3, S4, systolic murmur grade 2/6 lower left sternal border without radiation. ABDOMEN: Soft. Liver and spleen not palpable. Morbid obesity. No organomegaly. EXTREMITIES: Peripheral pulses difficult to palpate. The patient has stasis dermatitis in both lower extremities. CLINICAL IMPRESSION: Septicemia, on antibiotics; acute respiratory failure, off BiPAP; congestive heart failure; diastolic dysfunction with ultrafiltration; chronic kidney disease stage V; end-stage renal disease on dialysis; morbid obesity; obstructive sleep apnea; chronic atrial fibrillation; hypothyroidism; anasarca; stasis dermatitis both lower extremities with lymphedema. At the present time, the patient is not a surgical candidate due to comorbidities. PLAN: The patient to continue present care, IV antibiotics, ultrafiltration for congestive heart failure. [facility]# [id number]
[2016-08-23] MEDS: Morphine Sulfate 2 mg/mL 1mL Syr IV PRN (04:42)
[2016-08-23 05:05] LABS: HEMATOCRIT 28.5 % (39.0-49.0); HEMOGLOBIN 9.5 gm/dL (13.2-17.3); MEAN CELL VOLUME 83.4 fl (80-99); MEAN CORPUSCULAR HEMOGLOBIN 27.7 pg (26.0-30.0); MEAN CORPUSCULAR HGB CONC 33.2 pg (28.0-36.0); MEAN PLATELET VOLUME 9.6 fl; PLATELET COUNT 65 Th/cmm (150-400); RED BLOOD COUNT 3.42 Mil/cmm (4.30-5.70); RED CELL DISTRIBUTION WIDTH 15.3 % (11.5-20.0); WHITE BLOOD COUNT 11.6 Th/cmm (4.8-10.8)
[2016-08-23 05:11] LABS: ANION GAP 13.5 (7.0-16.0); BUN/CREATININE RATIO 13.5; CALCIUM SERUM 8.3 mg/dL (8.6-10.3); POTASSIUM SERUM 3.5 mEq/L (3.5-5.1)
[2016-08-23 05:13] LABS: INR 1.45 (0.5-1.4); PROTHROMBIN TIME (TEST) 15.4 SECONDS (9.5-11.5)
[2016-08-23 05:30] LABS: CREATININE - SERUM 5.4 mg/dL (0.7-1.3)
[2016-08-23 06:28] LABS: NEUTROPHILS 93 % (40-80); TOTAL CELLS COUNTED 100
[2016-08-23 06:29] LABS: PLATELET ESTIMATE DECREASED PLATELETS (NORMAL)
[2016-08-23] MEDS: Hydrocortisone Sodium Succ 100 mg Vial IVP SCH ×2 (09:05→17:52)
[2016-08-23] MEDS: Sodium Bicarbonate 8.4% 50mEq PFS IVP SCH ×2 (09:06→17:47)
--- NOTE | 2016-08-23 09:29 | General Progress Note ---
Subjective - Review of Systems Service Date: 08/23/16 Events since last encounter: NO DISTRESS Subjective: pt is sob on bipap had permacath done getting dialysis c/o weakness Objective - Results Result Diagrams: 08/23/16 04:35 08/23/16 04:35 Recent Labs: Laboratory Last Values WBC 11.6 Th/cmm (4.8-10.8) H 08/23/16 04:35 RBC 3.42 Mil/cmm (4.30-5.70) L 08/23/16 04:35 Hgb 9.5 gm/dL (13.2-17.3) L 08/23/16 04:35 Hct 28.5 % (39.0-49.0) L 08/23/16 04:35 MCV 83.4 fl (80-99) 08/23/16 04:35 MCH 27.7 pg (26.0-30.0) 08/23/16 04:35 MCHC Differential 33.2 pg (28.0-36.0) 08/23/16 04:35 RDW 15.3 % (11.5-20.0) 08/23/16 04:35 Plt Count 65 Th/cmm (150-400) L 08/23/16 04:35 MPV 9.6 fl 08/23/16 04:35 Neutrophils % 56.8 % (40.0-80.0) 07/07/16 06:00 Band Neutrophils % 1 % (0-10) 08/22/16 10:10 Lymphocytes % 18.4 % (20.0-50.0) L 07/07/16 06:00 Monocytes % 13.8 % (2.0-10.0) H 07/07/16 06:00 Eosinophils % 11.0 % (0.0-5.0) H 07/07/16 06:00 Basophils % 0.0 % (0.0-2.0) 07/07/16 06:00 Neutrophils (Manual) 93 % (40-80) H 08/23/16 04:35 Lymphocytes 6 % (20-50) L 08/23/16 04:35 Monocytes 1 % (2-10) L 08/23/16 04:35 Eosinophils 1 % (0-5) 08/18/16 05:18 Basophils 3 % (0-3) 08/04/16 08:33 Metamyelocytes 1 % (0-0) H 08/14/16 07:40 Myelocytes 1 % 07/14/16 16:00 Nucleated RBCs 1.0 % (0-0) H 08/15/16 09:30 Hypochromia 1+ 07/20/16 23:30 Platelet Estimate DECREASED PLATELETS (NORMAL) 08/23/16 04:35 Platelet Morphology NORMAL (NORMAL) 08/22/16 10:10 Polychromasia 1+ 07/20/16 23:30 Anisocytosis 1+ 08/16/16 05:16 Microcytosis 1+ 07/14/16 16:00 RBC Morph Micro Appear NORMAL (NORMAL) 08/23/16 04:35 PT 15.4 SECONDS (9.5-11.5) H 08/23/16 04:35 INR 1.45 (0.5-1.4) H 08/23/16 04:35 PTT (Actin FS) 37.7 SECONDS (26.0-38.0) 08/17/16 07:20 Specimen Source Arterial 08/20/16 08:15 Sample Site Right Radial 08/20/16 08:15 pH 7.33 (7.35-7.45) L 08/20/16 08:15 pCO2 55.0 mmHg (35.0-45.0) H 08/20/16 08:15 pO2 92.0 mmHg (80.0-100.0) 08/20/16 08:15 HCO3 26.5 mEq/L (20.0-26.0) H 08/20/16 08:15 Base Excess 2.0 mEq/L (-3.0-3.0) 08/20/16 08:15 O2 Saturation 97.0 % (92.0-100.0) 08/20/16 08:15 Estuardo Test POSITIVE 08/20/16 08:15 Vent Rate NA 08/20/16 08:15 Inspired O2 32 08/20/16 08:15 Tidal Volume NA 08/20/16 08:15 PEEP NA 08/20/16 08:15 Pressure (ins/psv/peep) NA 08/20/16 08:15 Critical Value CSILVA 08/20/16 08:15 Sodium 135 mEq/L (136-145) L 08/23/16 04:35 Potassium 3.5 mEq/L (3.5-5.1) 08/23/16 04:35 Chloride 100 mEq/L (98-107) 08/23/16 04:35 Carbon Dioxide 25.0 mEq/L (21.0-31.0) 08/23/16 04:35 Anion Gap 13.5 (7.0-16.0) 08/23/16 04:35 BUN 73 mg/dL (7-25) H 08/23/16 04:35 Creatinine 5.4 mg/dL (0.7-1.3) H* 08/23/16 04:35 Est GFR ( Amer) 14.6 ml/min (>90) 08/23/16 04:35 Est GFR (Non-Af Amer) 12.1 ml/min 08/23/16 04:35 BUN/Creatinine Ratio 13.5 08/23/16 04:35 Glucose 169 mg/dL (70-105) H 08/23/16 04:35 POC Glucose 111 MG/DL (70 - 105) H 08/15/16 08:03 Hemoglobin A1c % 4.8 % (4.0-6.0) 08/13/16 06:04 Whole Bld Lactic Acid 1.54 mmol/L (0.60-1.99) 08/13/16 06:04 Calcium 8.3 mg/dL (8.6-10.3) L 08/23/16 04:35 Phosphorus 5.5 mg/dL (2.5-5.0) H 07/19/16 09:50 Magnesium 1.9 mg/dL (1.9-2.7) 08/04/16 05:45 Iron 42 ug/dL (38-169) 06/28/16 04:38 TIBC 269 ug/dL (250-450) 06/28/16 04:38 Iron Saturation 16 % (15-55) 06/28/16 04:38 Unsaturated IBC 227 ug/dL (111-343) 06/28/16 04:38 Ferritin 150 ng/mL (30-400) 06/26/16 08:30 Total Bilirubin 1.0 mg/dL (0.3-1.0) 08/18/16 05:18 Direct Bilirubin 0.70 mg/dL (0.0-0.2) H 06/28/16 04:38 GGTP 14 IU/L (0-65) 06/28/16 04:38 AST 16 U/L (13-39) 08/18/16 05:18 ALT 11 U/L (7-52) 08/18/16 05:18 Alkaline Phosphatase 39 U/L (34-104) 08/18/16 05:18 Ammonia 73 umol/L (16-53) H 08/12/16 05:19 Troponin I < 0.01 ng/mL (0.01-0.05) L 06/22/16 19:33 B-Natriuretic Peptide 668.0 pg/mL (5.0-100.0) H 06/22/16 19:33 Total Protein 7.9 gm/dL (6.0-8.3) 08/18/16 05:18 Albumin 2.8 gm/dL (4.2-5.5) L 08/18/16 05:18 Globulin 5.1 gm/dL 08/18/16 05:18 Albumin/Globulin Ratio 0.6 (1.0-1.8) L 08/18/16 05:18 Amylase 28 U/L (29-103) L 07/02/16 06:40 Lipase 31 U/L (11-82) 07/02/16 06:40 TSH 2.98 uIU/ml (0.34-5.60) 08/13/16 06:04 Urine Source CLEAN C 06/29/16 05:55 Urine Color YELLOW 06/29/16 05:55 Urine Clarity HAZY (CLEAR) 06/29/16 05:55 Urine pH 5.5 06/29/16 05:55 Ur Specific [place] 1.015 (1.005-1.030) 06/29/16 05:55 Urine Protein 30 mg/dL (NEGATIVE) H 06/29/16 05:55 Urine Glucose (UA) NEGATIVE mg/dL (NEGATIVE) 06/29/16 05:55 Urine Ketones NEGATIVE mg/dL (NEGATIVE) 06/29/16 05:55 Urine Blood NEGATIVE (NEGATIVE) 06/29/16 05:55 Urine Nitrate NEGATIVE (NEGATIVE) 06/29/16 05:55 Urine Bilirubin NEGATIVE (NEGATIVE) 06/29/16 05:55 Urine Urobilinogen 0.2 E.U./dL (0.2 - 1.0) 06/29/16 05:55 Ur Leukocyte Esterase TRACE (NEGATIVE) H 06/29/16 05:55 Urine RBC 0-2 /hpf (0-5) H 06/29/16 05:55 Urine WBC 6-10 /hpf (0-5) H 06/29/16 05:55 Ur Epithelial Cells FEW /lpf (FEW) 06/29/16 05:55 Urine Bacteria MANY /hpf (NONE SEEN) 06/29/16 05:55 Stool Occult Blood POSITIVE (NEGATIVE) 08/17/16 11:00 Stool Leukocyte NO WBC SEEN 08/17/16 11:00 Gentamicin Trough ug/ml (0.2-2.0) 08/12/16 05:19 Random Vancomycin 24.7 ug/mL (5.0-40.0) 08/21/16 04:45 RPR NONREACTIVE (NONREACTIVE) 06/22/16 19:33 Hepatitis A IgM Ab Negative (Negative) 06/29/16 05:49 Hep Bs Antigen Negative (Negative) 06/29/16 05:49 Hep B Core IgM Ab Negative (Negative) 06/29/16 05:49 Hepatitis C Antibody >11.0 s/co ratio (0.0-0.9) H 06/29/16 05:49 Blood Type A POSITIVE 08/10/16 21:07 Antibody Screen NEGATIVE 08/10/16 21:07 Crossmatch See Detail 08/10/16 21:07 - Physical Exam Vitals and I&O: Vital Signs Temp 98.4 F 08/23/16 05:00 Pulse 101 08/23/16 07:10 Resp 16 08/23/16 07:10 BP 109/62 08/23/16 05:00 Pulse Ox 99 08/23/16 07:10 Intake & Output 08/22/16 08/23/16 08/23/16 18:59 06:59 18:59 Intake Total 1538.5 200 Output Total 0 0 Balance 1538.5 200 Intake: Intake, IV Amount 238.5 Sodium Chloride 0.9% 1, 238.5 000 ml @ 10 mls/hr IV . Q24H [facility] Rx#:[id number] Oral 1300 200 Output: Urine 0 0 Stool 0 Other: Stool Characteristics Liquid Active Medications: Current Medications Acetaminophen (Tylenol) 650 mg PO Q6H PRN PRN Reason: temperature above 100F Stop: 09/28/16 16:14 Last Admin: 07/30/16 16:27 Dose: 650 mg Calamine/Phenol (Calmoseptine) 1 appl TP QID [facility] Stop: 10/14/16 12:59 Last Admin: 08/22/16 22:13 Dose: Not Given Diphenhydramine HCl (Benadryl 50 Mg/Ml) 50 mg IM Q8HR PRN PRN Reason: Agitation Stop: 08/25/16 12:10 Last Admin: 08/21/16 23:54 Dose: 50 mg Diphenhydramine HCl (Benadryl 50 Mg/Ml) 25 mg IVP Q6HR PRN PRN Reason: itching Stop: 10/11/16 03:12 Last Admin: 08/14/16 11:25 Dose: 25 mg Docusate Sodium (Colace) 100 mg PO Q12HR [facility] Stop: 09/16/16 08:59 Last Admin: 08/22/16 20:20 Dose: 100 mg Haloperidol Lactate (Haldol) 5 mg IM Q8HR PRN PRN Reason: Agitation Stop: 08/25/16 12:10 Last Admin: 08/14/16 13:15 Dose: 5 mg Hydrocortisone Sodium Succinate (Solu-Cortef) 50 mg IVP Q8H [facility] Stop: 10/09/16 15:59 Last Admin: 08/23/16 09:05 Dose: 50 mg Sodium Chloride (Nacl 0.9%) 1,000 mls @ 10 mls/hr IV .Q24H [facility] Stop: 10/15/16 15:01 Last Admin: 08/22/16 16:29 Dose: 10 mls/hr Lactobacillus Rhamnosus (Culturelle) 1 each PO DAILY [facility] Stop: 10/12/16 08:59 Last Admin: 08/22/16 08:54 Dose: 1 each Lactulose (Cephulac) 20 gm PO BID [facility] Stop: 10/17/16 08:59 Last Admin: 08/22/16 16:20 Dose: Not Given Levetiracetam (Keppra) 500 mg PO BID [facility] Stop: 10/19/16 16:59 Last Admin: 08/22/16 16:19 Dose: 500 mg Lorazepam (Ativan) 2 mg IVP Q2HR PRN; Protocol PRN Reason: Seizures Stop: 10/19/16 10:06 Metronidazole (Flagyl) 500 mg PO TID [facility] Stop: 08/31/16 21:01 Last Admin: 08/22/16 20:20 Dose: 500 mg Miscellaneous (Clinical Monitoring) 1 ea MC DAILY PRN PRN Reason: RENAL Stop: 10/06/16 08:17 Miscellaneous (Probiotic Screen) 1 ea MC PRN PRN PRN Reason: PROTOCOL Stop: 10/11/16 14:12 Morphine Sulfate (Morphine) 2 mg IV Q4HR PRN PRN Reason: Pain (Moderate) Stop: 10/15/16 13:36 Last Admin: 08/23/16 04:42 Dose: 2 mg Pantoprazole Sodium (Protonix) 40 mg IVP BID [facility] Stop: 10/19/16 16:59 Last Admin: 08/23/16 09:05 Dose: 40 mg Sodium Bicarbonate (Sodium Bicarb) 50 meq IVP BID [facility] Stop: 10/13/16 16:59 Last Admin: 08/23/16 09:06 Dose: 50 meq General: No acute distress HEENT: Atraumatic Neck: Supple Cardiovascular: Regular rate Lungs: Clear to auscultation Abdomen: Bowel sounds - Procedures Procedures: Procedures Procedure Code Date ARTERY-VEIN NONAUTOGRAFT 56443 06/22/16 BLOOD TRANSFUSION SERVICE 05708 06/22/16 BYPASS L BRACH ART TO UP ARM VEIN W NONAUT SUB, OPEN [id number] 06/22/16 FLUOROSCOPY OF SUP VENA CAVA USING [facility] CONTRAST, GUIDANCE [id number] 06/22/16 INSERTION OF INFUSION DEV INTO SUP VENA CAVA, PERC APPROACH [id number] 06/22/16 PLACE CATHETER IN VEIN 08280 06/22/16 TRANSFUSE NONAUT RED BLOOD CELLS IN PERIPH VEIN, [facility] [id number] 06/22/16 Assessment/Plan - Problem List Patient Problems: All Active Problems Anemia (Acute) D64.9 ESRD (end stage renal disease) (Acute) ESRD (end stage renal disease) on dialysis (Acute) N18.6, Z99.2 ESRD (end stage renal disease) on dialysis (Acute) N18.6, Z99.2 HYPOTENSION (Acute) HYPOXEMIA (Acute) MEDICAL EVALUATION PER DR FRY (Acute) septic shock (Acute) - Assessment Assessment: 1. Cellulitis of legs. 2. Lymphedema of legs. 3. CKD 5 on HD. 4. Morbid obesity. 5 anemia 6 gi bleed 7 psychosis - Plan Plan: dialysis iv antibiotics ltac eval tele status snif plan
[2016-08-23] MEDS: Lactobacillus Rhamnosus 10 Billion CFU Capsule PO SCH (09:57)
[2016-08-23] MEDS: Lactulose 10 Gm/15 mL 30mL UDC PO SCH (09:57)
--- NOTE | 2016-08-23 11:54 | Infectious Disease Prog Note ---
Infectious Disease Subjective - Review of Systems Service Date: 08/23/16 Subjective: There is no new change. There is no fever. Infectious Disease Objective - Results Result Diagrams: 08/23/16 04:35 08/23/16 04:35 Recent Labs: Laboratory Last Values WBC 11.6 Th/cmm (4.8-10.8) H 08/23/16 04:35 RBC 3.42 Mil/cmm (4.30-5.70) L 08/23/16 04:35 Hgb 9.5 gm/dL (13.2-17.3) L 08/23/16 04:35 Hct 28.5 % (39.0-49.0) L 08/23/16 04:35 MCV 83.4 fl (80-99) 08/23/16 04:35 MCH 27.7 pg (26.0-30.0) 08/23/16 04:35 MCHC Differential 33.2 pg (28.0-36.0) 08/23/16 04:35 RDW 15.3 % (11.5-20.0) 08/23/16 04:35 Plt Count 65 Th/cmm (150-400) L 08/23/16 04:35 MPV 9.6 fl 08/23/16 04:35 Neutrophils % 56.8 % (40.0-80.0) 07/07/16 06:00 Band Neutrophils % 1 % (0-10) 08/22/16 10:10 Lymphocytes % 18.4 % (20.0-50.0) L 07/07/16 06:00 Monocytes % 13.8 % (2.0-10.0) H 07/07/16 06:00 Eosinophils % 11.0 % (0.0-5.0) H 07/07/16 06:00 Basophils % 0.0 % (0.0-2.0) 07/07/16 06:00 Neutrophils (Manual) 93 % (40-80) H 08/23/16 04:35 Lymphocytes 6 % (20-50) L 08/23/16 04:35 Monocytes 1 % (2-10) L 08/23/16 04:35 Eosinophils 1 % (0-5) 08/18/16 05:18 Basophils 3 % (0-3) 08/04/16 08:33 Metamyelocytes 1 % (0-0) H 08/14/16 07:40 Myelocytes 1 % 07/14/16 16:00 Nucleated RBCs 1.0 % (0-0) H 08/15/16 09:30 Hypochromia 1+ 07/20/16 23:30 Platelet Estimate DECREASED PLATELETS (NORMAL) 08/23/16 04:35 Platelet Morphology NORMAL (NORMAL) 08/22/16 10:10 Polychromasia 1+ 07/20/16 23:30 Anisocytosis 1+ 08/16/16 05:16 Microcytosis 1+ 07/14/16 16:00 RBC Morph Micro Appear NORMAL (NORMAL) 08/23/16 04:35 PT 15.4 SECONDS (9.5-11.5) H 08/23/16 04:35 INR 1.45 (0.5-1.4) H 08/23/16 04:35 PTT (Actin FS) 37.7 SECONDS (26.0-38.0) 08/17/16 07:20 Specimen Source Arterial 08/20/16 08:15 Sample Site Right Radial 08/20/16 08:15 pH 7.33 (7.35-7.45) L 08/20/16 08:15 pCO2 55.0 mmHg (35.0-45.0) H 08/20/16 08:15 pO2 92.0 mmHg (80.0-100.0) 08/20/16 08:15 HCO3 26.5 mEq/L (20.0-26.0) H 08/20/16 08:15 Base Excess 2.0 mEq/L (-3.0-3.0) 08/20/16 08:15 O2 Saturation 97.0 % (92.0-100.0) 08/20/16 08:15 Estuardo Test POSITIVE 08/20/16 08:15 Vent Rate NA 08/20/16 08:15 Inspired O2 32 08/20/16 08:15 Tidal Volume NA 08/20/16 08:15 PEEP NA 08/20/16 08:15 Pressure (ins/psv/peep) NA 08/20/16 08:15 Critical Value CSILVA 08/20/16 08:15 Sodium 135 mEq/L (136-145) L 08/23/16 04:35 Potassium 3.5 mEq/L (3.5-5.1) 08/23/16 04:35 Chloride 100 mEq/L (98-107) 08/23/16 04:35 Carbon Dioxide 25.0 mEq/L (21.0-31.0) 08/23/16 04:35 Anion Gap 13.5 (7.0-16.0) 08/23/16 04:35 BUN 73 mg/dL (7-25) H 08/23/16 04:35 Creatinine 5.4 mg/dL (0.7-1.3) H* 08/23/16 04:35 Est GFR ( Amer) 14.6 ml/min (>90) 08/23/16 04:35 Est GFR (Non-Af Amer) 12.1 ml/min 08/23/16 04:35 BUN/Creatinine Ratio 13.5 08/23/16 04:35 Glucose 169 mg/dL (70-105) H 08/23/16 04:35 POC Glucose 111 MG/DL (70 - 105) H 08/15/16 08:03 Hemoglobin A1c % 4.8 % (4.0-6.0) 08/13/16 06:04 Whole Bld Lactic Acid 1.54 mmol/L (0.60-1.99) 08/13/16 06:04 Calcium 8.3 mg/dL (8.6-10.3) L 08/23/16 04:35 Phosphorus 5.5 mg/dL (2.5-5.0) H 07/19/16 09:50 Magnesium 1.9 mg/dL (1.9-2.7) 08/04/16 05:45 Iron 42 ug/dL (38-169) 06/28/16 04:38 TIBC 269 ug/dL (250-450) 06/28/16 04:38 Iron Saturation 16 % (15-55) 06/28/16 04:38 Unsaturated IBC 227 ug/dL (111-343) 06/28/16 04:38 Ferritin 150 ng/mL (30-400) 06/26/16 08:30 Total Bilirubin 1.0 mg/dL (0.3-1.0) 08/18/16 05:18 Direct Bilirubin 0.70 mg/dL (0.0-0.2) H 06/28/16 04:38 GGTP 14 IU/L (0-65) 06/28/16 04:38 AST 16 U/L (13-39) 08/18/16 05:18 ALT 11 U/L (7-52) 08/18/16 05:18 Alkaline Phosphatase 39 U/L (34-104) 08/18/16 05:18 Ammonia 73 umol/L (16-53) H 08/12/16 05:19 Troponin I < 0.01 ng/mL (0.01-0.05) L 06/22/16 19:33 B-Natriuretic Peptide 668.0 pg/mL (5.0-100.0) H 06/22/16 19:33 Total Protein 7.9 gm/dL (6.0-8.3) 08/18/16 05:18 Albumin 2.8 gm/dL (4.2-5.5) L 08/18/16 05:18 Globulin 5.1 gm/dL 08/18/16 05:18 Albumin/Globulin Ratio 0.6 (1.0-1.8) L 08/18/16 05:18 Amylase 28 U/L (29-103) L 07/02/16 06:40 Lipase 31 U/L (11-82) 07/02/16 06:40 TSH 2.98 uIU/ml (0.34-5.60) 08/13/16 06:04 Urine Source CLEAN C 06/29/16 05:55 Urine Color YELLOW 06/29/16 05:55 Urine Clarity HAZY (CLEAR) 06/29/16 05:55 Urine pH 5.5 06/29/16 05:55 Ur Specific [place] 1.015 (1.005-1.030) 06/29/16 05:55 Urine Protein 30 mg/dL (NEGATIVE) H 06/29/16 05:55 Urine Glucose (UA) NEGATIVE mg/dL (NEGATIVE) 06/29/16 05:55 Urine Ketones NEGATIVE mg/dL (NEGATIVE) 06/29/16 05:55 Urine Blood NEGATIVE (NEGATIVE) 06/29/16 05:55 Urine Nitrate NEGATIVE (NEGATIVE) 06/29/16 05:55 Urine Bilirubin NEGATIVE (NEGATIVE) 06/29/16 05:55 Urine Urobilinogen 0.2 E.U./dL (0.2 - 1.0) 06/29/16 05:55 Ur Leukocyte Esterase TRACE (NEGATIVE) H 06/29/16 05:55 Urine RBC 0-2 /hpf (0-5) H 06/29/16 05:55 Urine WBC 6-10 /hpf (0-5) H 06/29/16 05:55 Ur Epithelial Cells FEW /lpf (FEW) 06/29/16 05:55 Urine Bacteria MANY /hpf (NONE SEEN) 06/29/16 05:55 Stool Occult Blood POSITIVE (NEGATIVE) 08/17/16 11:00 Stool Leukocyte NO WBC SEEN 08/17/16 11:00 Gentamicin Trough ug/ml (0.2-2.0) 08/12/16 05:19 Random Vancomycin 24.7 ug/mL (5.0-40.0) 08/21/16 04:45 RPR NONREACTIVE (NONREACTIVE) 06/22/16 19:33 Hepatitis A IgM Ab Negative (Negative) 06/29/16 05:49 Hep Bs Antigen Negative (Negative) 06/29/16 05:49 Hep B Core IgM Ab Negative (Negative) 06/29/16 05:49 Hepatitis C Antibody >11.0 s/co ratio (0.0-0.9) H 06/29/16 05:49 Blood Type A POSITIVE 08/10/16 21:07 Antibody Screen NEGATIVE 08/10/16 21:07 Crossmatch See Detail 08/10/16 21:07 - Physical Exam Vitals and I&O: Vital Signs Temp 98.4 F 08/23/16 05:00 Pulse 101 08/23/16 07:10 Resp 16 08/23/16 07:10 BP 109/62 08/23/16 05:00 Pulse Ox 99 08/23/16 07:10 Intake & Output 08/22/16 08/23/16 08/23/16 18:59 06:59 18:59 Intake Total 1538.5 200 Output Total 0 0 Balance 1538.5 200 Intake: Intake, IV Amount 238.5 Sodium Chloride 0.9% 1, 238.5 000 ml @ 10 mls/hr IV . Q24H [facility] Rx#:[id number] Oral 1300 200 Output: Urine 0 0 Stool 0 Other: Stool Characteristics Liquid Active Medications: Current Medications Acetaminophen (Tylenol) 650 mg PO Q6H PRN PRN Reason: temperature above 100F Stop: 09/28/16 16:14 Last Admin: 07/30/16 16:27 Dose: 650 mg Calamine/Phenol (Calmoseptine) 1 appl TP QID [facility] Stop: 10/14/16 12:59 Last Admin: 08/22/16 22:13 Dose: Not Given Diphenhydramine HCl (Benadryl 50 Mg/Ml) 50 mg IM Q8HR PRN PRN Reason: Agitation Stop: 08/25/16 12:10 Last Admin: 08/21/16 23:54 Dose: 50 mg Diphenhydramine HCl (Benadryl 50 Mg/Ml) 25 mg IVP Q6HR PRN PRN Reason: itching Stop: 10/11/16 03:12 Last Admin: 08/14/16 11:25 Dose: 25 mg Docusate Sodium (Colace) 100 mg PO Q12HR [facility] Stop: 09/16/16 08:59 Last Admin: 08/23/16 09:57 Dose: Not Given Haloperidol Lactate (Haldol) 5 mg IM Q8HR PRN PRN Reason: Agitation Stop: 08/25/16 12:10 Last Admin: 08/14/16 13:15 Dose: 5 mg Hydrocortisone Sodium Succinate (Solu-Cortef) 50 mg IVP Q8H [facility] Stop: 10/09/16 15:59 Last Admin: 08/23/16 09:05 Dose: 50 mg Sodium Chloride (Nacl 0.9%) 1,000 mls @ 10 mls/hr IV .Q24H [facility] Stop: 10/15/16 15:01 Last Admin: 08/22/16 16:29 Dose: 10 mls/hr Lactobacillus Rhamnosus (Culturelle) 1 each PO DAILY [facility] Stop: 10/12/16 08:59 Last Admin: 08/23/16 09:57 Dose: Not Given Lactulose (Cephulac) 20 gm PO BID [facility] Stop: 10/17/16 08:59 Last Admin: 08/23/16 09:57 Dose: Not Given Levetiracetam (Keppra) 500 mg PO BID [facility] Stop: 10/19/16 16:59 Last Admin: 08/22/16 16:19 Dose: 500 mg Lorazepam (Ativan) 2 mg IVP Q2HR PRN; Protocol PRN Reason: Seizures Stop: 10/19/16 10:06 Metronidazole (Flagyl) 500 mg PO TID [facility] Stop: 08/31/16 21:01 Last Admin: 08/22/16 20:20 Dose: 500 mg Miscellaneous (Clinical Monitoring) 1 ea MC DAILY PRN PRN Reason: RENAL Stop: 10/06/16 08:17 Miscellaneous (Probiotic Screen) 1 ea MC PRN PRN PRN Reason: PROTOCOL Stop: 10/11/16 14:12 Morphine Sulfate (Morphine) 2 mg IV Q4HR PRN PRN Reason: Pain (Moderate) Stop: 10/15/16 13:36 Last Admin: 08/23/16 04:42 Dose: 2 mg Pantoprazole Sodium (Protonix) 40 mg IVP BID [facility] Stop: 10/19/16 16:59 Last Admin: 08/23/16 09:05 Dose: 40 mg Sodium Bicarbonate (Sodium Bicarb) 50 meq IVP BID [facility] Stop: 10/13/16 16:59 Last Admin: 08/23/16 09:06 Dose: 50 meq General: no acute distress, other (Obese) HEENT: atraumatic, normocephalic, PERRLA, EOMI, moist mucous membrane Neck: supple, no thyromegaly, no lymphadenopathy Cardiovascular: S1S2, regular Lungs: clear to auscultation bilaterally, clear to percussion Abdomen: soft, no tender, no distended Extremities: no cyanosis, no clubbing, no edema Neurological: awake, alert, oriented, CN 2-12 intact Skin: intact, no rash - Procedures Procedures: Procedures Procedure Code Date ARTERY-VEIN NONAUTOGRAFT 51542 06/22/16 BLOOD TRANSFUSION SERVICE 91764 06/22/16 BYPASS L BRACH ART TO UP ARM VEIN W NONAUT SUB, OPEN [id number] 06/22/16 FLUOROSCOPY OF SUP VENA CAVA USING [facility] CONTRAST, GUIDANCE [id number] 06/22/16 INSERTION OF INFUSION DEV INTO SUP VENA CAVA, PER[facility] APPROACH [id number] 06/22/[address] PL[address] CATHETER IN VEIN 884[address] 06/22/16 TRANSFUSE NONAUT RED BLOOD CELLS IN PERIPH VEIN, [facility] [id number] 06/22/16 Infectious Disease Assmt/Plan - Problem List Patient Problems: All Active Problems Anemia (Acute) D64.9 ESRD (end stage renal disease) (Acute) ESRD (end stage renal disease) on dialysis (Acute) N18.6, Z99.2 ESRD (end stage renal disease) on dialysis (Acute) N18.6, Z99.2 HYPOTENSION (Acute) HYPOXEMIA (Acute) MEDICAL EVALUATION PER DR FRY (Acute) septic shock (Acute) - Assessment Assessment: 1. Septic shock. resolved. likely line sepsis. MRSA sepsis. 3/4 positive. 2. Pneumonia. 3. CKD 5 on HD. 4. Morbid obesity. 5. hep C. 6. Cellulitis of legs. improved. treated. 7. Lymphedema of legs. 8. CHF. 9. CDAC. 10. Maria C esophagitis. - Plan Plan: Continue vanco IV and flagyl. Add Diflucan.
--- NOTE | 2016-08-23 13:50 | Operative Report ---
PROCEDURE: Esophagogastroduodenoscopy with biopsy. PREOPERATIVE DIAGNOSES: Anemia and occult gastrointestinal bleed. POSTPROCEDURE DIAGNOSES: 1. Mild to moderate Maria C appearing esophagitis, status post biopsy. 2. Mild antral gastritis, status post biopsies and CLOtest. 3. Normal duodenum, status post biopsies, rule out celiac disease. INDICATIONS: A 51-year-old morbidly obese male with anemia and occult GI bleed, undergoing an upper endoscopy for further evaluation. CONSENT: Informed consent was obtained from the patient prior to procedure after detail explanation of risks, benefits and alternatives including but not limited to infection, bleeding, perforation, and . SEDATION: Monitored anesthesia care per Dr. Schmitz. DESCRIPTION OF PROCEDURE AND FINDINGS: Th procedure took place as an inpatient in the Intensive Care Unit of [facility]. The patient was kept in a supine position with head of bed slightly elevated. Adequate sedation was achieved by Dr. Schmitz. An Olympus diagnostic upper endoscope was advanced via the patient's mouth and into the esophagus. Here, there was whitish exudate suggestive of Maria C esophagitis. Biopsies were obtained from here. Brushings were not available. The Z line was normal appearing at about 42-43 cm from the gums. Retroflexion in the stomach revealed no GE junction mass or varices. No obvious hiatal hernia was identified. Mild gastritis is identified in the antrum and body. Biopsies were obtained from the antrum and midbody and submitted for CLOtest as well as pathology. The pyloric channel and duodenum up to second portion appeared normal. Biopsies were obtained from second portion to rule out celiac disease. Th scope was withdrawn from the patient. The patient tolerated the procedure well. No complications are anticipated. RECOMMENDATION: 1. Follow up biopsies. 2. Protonix. 3. Diflucan. 4. Colonoscopy next week to complete GI evaluation of anemia and occult GI bleed. Thank you, Dr. Brett Valadez for involving us in the care of your patient. If you have any further questions, please call us. JOB# [id number] [facility] [place]
[2016-08-23] MEDS: Menthol/Zinc Oxide Oint 113gm Tube TP SCH ×3 (17:49→21:21)
[2016-08-23] MEDS: Venelex 60gm Tube TP SCH (17:49)
--- NOTE | 2016-08-23 18:50 | General Progress Note ---
Subjective - Review of Systems Service Date: 08/23/16 Subjective: more alert, interactive, on [place] Objective - Results Result Diagrams: 08/23/16 04:35 08/23/16 04:35 Recent Labs: Laboratory Last Values WBC 11.6 Th/cmm (4.8-10.8) H 08/23/16 04:35 RBC 3.42 Mil/cmm (4.30-5.70) L 08/23/16 04:35 Hgb 9.5 gm/dL (13.2-17.3) L 08/23/16 04:35 Hct 28.5 % (39.0-49.0) L 08/23/16 04:35 MCV 83.4 fl (80-99) 08/23/16 04:35 MCH 27.7 pg (26.0-30.0) 08/23/16 04:35 MCHC Differential 33.2 pg (28.0-36.0) 08/23/16 04:35 RDW 15.3 % (11.5-20.0) 08/23/16 04:35 Plt Count 65 Th/cmm (150-400) L 08/23/16 04:35 MPV 9.6 fl 08/23/16 04:35 Neutrophils % 56.8 % (40.0-80.0) 07/07/16 06:00 Band Neutrophils % 1 % (0-10) 08/22/16 10:10 Lymphocytes % 18.4 % (20.0-50.0) L 07/07/16 06:00 Monocytes % 13.8 % (2.0-10.0) H 07/07/16 06:00 Eosinophils % 11.0 % (0.0-5.0) H 07/07/16 06:00 Basophils % 0.0 % (0.0-2.0) 07/07/16 06:00 Neutrophils (Manual) 93 % (40-80) H 08/23/16 04:35 Lymphocytes 6 % (20-50) L 08/23/16 04:35 Monocytes 1 % (2-10) L 08/23/16 04:35 Eosinophils 1 % (0-5) 08/18/16 05:18 Basophils 3 % (0-3) 08/04/16 08:33 Metamyelocytes 1 % (0-0) H 08/14/16 07:40 Myelocytes 1 % 07/14/16 16:00 Nucleated RBCs 1.0 % (0-0) H 08/15/16 09:30 Hypochromia 1+ 07/20/16 23:30 Platelet Estimate DECREASED PLATELETS (NORMAL) 08/23/16 04:35 Platelet Morphology NORMAL (NORMAL) 08/22/16 10:10 Polychromasia 1+ 07/20/16 23:30 Anisocytosis 1+ 08/16/16 05:16 Microcytosis 1+ 07/14/16 16:00 RBC Morph Micro Appear NORMAL (NORMAL) 08/23/16 04:35 PT 15.4 SECONDS (9.5-11.5) H 08/23/16 04:35 INR 1.45 (0.5-1.4) H 08/23/16 04:35 PTT (Actin FS) 37.7 SECONDS (26.0-38.0) 08/17/16 07:20 Specimen Source Arterial 08/20/16 08:15 Sample Site Right Radial 08/20/16 08:15 pH 7.33 (7.35-7.45) L 08/20/16 08:15 pCO2 55.0 mmHg (35.0-45.0) H 08/20/16 08:15 pO2 92.0 mmHg (80.0-100.0) 08/20/16 08:15 HCO3 26.5 mEq/L (20.0-26.0) H 08/20/16 08:15 Base Excess 2.0 mEq/L (-3.0-3.0) 08/20/16 08:15 O2 Saturation 97.0 % (92.0-100.0) 08/20/16 08:15 Estuardo Test POSITIVE 08/20/16 08:15 Vent Rate NA 08/20/16 08:15 Inspired O2 32 08/20/16 08:15 Tidal Volume NA 08/20/16 08:15 PEEP NA 08/20/16 08:15 Pressure (ins/psv/peep) NA 08/20/16 08:15 Critical Value CSILVA 08/20/16 08:15 Sodium 135 mEq/L (136-145) L 08/23/16 04:35 Potassium 3.5 mEq/L (3.5-5.1) 08/23/16 04:35 Chloride 100 mEq/L (98-107) 08/23/16 04:35 Carbon Dioxide 25.0 mEq/L (21.0-31.0) 08/23/16 04:35 Anion Gap 13.5 (7.0-16.0) 08/23/16 04:35 BUN 73 mg/dL (7-25) H 08/23/16 04:35 Creatinine 5.4 mg/dL (0.7-1.3) H* 08/23/16 04:35 Est GFR ( Amer) 14.6 ml/min (>90) 08/23/16 04:35 Est GFR (Non-Af Amer) 12.1 ml/min 08/23/16 04:35 BUN/Creatinine Ratio 13.5 08/23/16 04:35 Glucose 169 mg/dL (70-105) H 08/23/16 04:35 POC Glucose 111 MG/DL (70 - 105) H 08/15/16 08:03 Hemoglobin A1c % 4.8 % (4.0-6.0) 08/13/16 06:04 Whole Bld Lactic Acid 1.54 mmol/L (0.60-1.99) 08/13/16 06:04 Calcium 8.3 mg/dL (8.6-10.3) L 08/23/16 04:35 Phosphorus 5.5 mg/dL (2.5-5.0) H 07/19/16 09:50 Magnesium 1.9 mg/dL (1.9-2.7) 08/04/16 05:45 Iron 42 ug/dL (38-169) 06/28/16 04:38 TIBC 269 ug/dL (250-450) 06/28/16 04:38 Iron Saturation 16 % (15-55) 06/28/16 04:38 Unsaturated IBC 227 ug/dL (111-343) 06/28/16 04:38 Ferritin 150 ng/mL (30-400) 06/26/16 08:30 Total Bilirubin 1.0 mg/dL (0.3-1.0) 08/18/16 05:18 Direct Bilirubin 0.70 mg/dL (0.0-0.2) H 06/28/16 04:38 GGTP 14 IU/L (0-65) 06/28/16 04:38 AST 16 U/L (13-39) 08/18/16 05:18 ALT 11 U/L (7-52) 08/18/16 05:18 Alkaline Phosphatase 39 U/L (34-104) 08/18/16 05:18 Ammonia 73 umol/L (16-53) H 08/12/16 05:19 Troponin I < 0.01 ng/mL (0.01-0.05) L 06/22/16 19:33 B-Natriuretic Peptide 668.0 pg/mL (5.0-100.0) H 06/22/16 19:33 Total Protein 7.9 gm/dL (6.0-8.3) 08/18/16 05:18 Albumin 2.8 gm/dL (4.2-5.5) L 08/18/16 05:18 Globulin 5.1 gm/dL 08/18/16 05:18 Albumin/Globulin Ratio 0.6 (1.0-1.8) L 08/18/16 05:18 Amylase 28 U/L (29-103) L 07/02/16 06:40 Lipase 31 U/L (11-82) 07/02/16 06:40 TSH 2.98 uIU/ml (0.34-5.60) 08/13/16 06:04 Urine Source CLEAN C 06/29/16 05:55 Urine Color YELLOW 06/29/16 05:55 Urine Clarity HAZY (CLEAR) 06/29/16 05:55 Urine pH 5.5 06/29/16 05:55 Ur Specific [place] 1.015 (1.005-1.030) 06/29/16 05:55 Urine Protein 30 mg/dL (NEGATIVE) H 06/29/16 05:55 Urine Glucose (UA) NEGATIVE mg/dL (NEGATIVE) 06/29/16 05:55 Urine Ketones NEGATIVE mg/dL (NEGATIVE) 06/29/16 05:55 Urine Blood NEGATIVE (NEGATIVE) 06/29/16 05:55 Urine Nitrate NEGATIVE (NEGATIVE) 06/29/16 05:55 Urine Bilirubin NEGATIVE (NEGATIVE) 06/29/16 05:55 Urine Urobilinogen 0.2 E.U./dL (0.2 - 1.0) 06/29/16 05:55 Ur Leukocyte Esterase TRACE (NEGATIVE) H 06/29/16 05:55 Urine RBC 0-2 /hpf (0-5) H 06/29/16 05:55 Urine WBC 6-10 /hpf (0-5) H 06/29/16 05:55 Ur Epithelial Cells FEW /lpf (FEW) 06/29/16 05:55 Urine Bacteria MANY /hpf (NONE SEEN) 06/29/16 05:55 Stool Occult Blood POSITIVE (NEGATIVE) 08/17/16 11:00 Stool Leukocyte NO WBC SEEN 08/17/16 11:00 Gentamicin Trough ug/ml (0.2-2.0) 08/12/16 05:19 Random Vancomycin 24.7 ug/mL (5.0-40.0) 08/21/16 04:45 RPR NONREACTIVE (NONREACTIVE) 06/22/16 19:33 Hepatitis A IgM Ab Negative (Negative) 06/29/16 05:49 Hep Bs Antigen Negative (Negative) 06/29/16 05:49 Hep B Core IgM Ab Negative (Negative) 06/29/16 05:49 Hepatitis C Antibody >11.0 s/co ratio (0.0-0.9) H 06/29/16 05:49 Blood Type A POSITIVE 08/10/16 21:07 Antibody Screen NEGATIVE 08/10/16 21:07 Crossmatch See Detail 08/10/16 21:07 - Physical Exam Vitals and I&O: Vital Signs Temp 97.7 F 08/23/16 13:00 Pulse 115 08/23/16 13:00 Resp 17 08/23/16 13:00 BP 105/69 08/23/16 13:00 Pulse Ox 100 08/23/16 13:00 Intake & Output 08/22/16 08/23/16 08/23/16 18:59 06:59 18:59 Intake Total 1538.5 200 Output Total 0 0 Balance 1538.5 200 Intake: Intake, IV Amount 238.5 Sodium Chloride 0.9% 1, 238.5 000 ml @ 10 mls/hr IV . Q24H [facility] Rx#:[id number] Oral 1300 200 Output: Urine 0 0 Stool 0 Other: Stool Characteristics Liquid Active Medications: Current Medications Acetaminophen (Tylenol) 650 mg PO Q6H PRN PRN Reason: temperature above 100F Stop: 09/28/16 16:14 Last Admin: 07/30/16 16:27 Dose: 650 mg Calamine/Phenol (Calmoseptine) 1 appl TP QID [facility] Stop: 10/14/16 12:59 Last Admin: 08/23/16 17:49 Dose: 1 appl Diphenhydramine HCl (Benadryl 50 Mg/Ml) 50 mg IM Q8HR PRN PRN Reason: Agitation Stop: 08/25/16 12:10 Last Admin: 08/21/16 23:54 Dose: 50 mg Diphenhydramine HCl (Benadryl 50 Mg/Ml) 25 mg IVP Q6HR PRN PRN Reason: itching Stop: 10/11/16 03:12 Last Admin: 08/14/16 11:25 Dose: 25 mg Docusate Sodium (Colace) 100 mg PO Q12HR [facility] Stop: 09/16/16 08:59 Last Admin: 08/23/16 09:57 Dose: Not Given Fluconazole (Diflucan) 100 mg PO DAILY [facility] Stop: 10/23/16 08:59 Haloperidol Lactate (Haldol) 5 mg IM Q8HR PRN PRN Reason: Agitation Stop: 08/25/16 12:10 Last Admin: 08/14/16 13:15 Dose: 5 mg Hydrocortisone Sodium Succinate (Solu-Cortef) 50 mg IVP Q8H [facility] Stop: 10/09/16 15:59 Last Admin: 08/23/16 17:52 Dose: 50 mg Sodium Chloride (Nacl 0.9%) 1,000 mls @ 10 mls/hr IV .Q24H [facility] Stop: 10/15/16 15:01 Last Admin: 08/22/16 16:29 Dose: 10 mls/hr Lactobacillus Rhamnosus (Culturelle) 1 each PO DAILY [facility] Stop: 10/12/16 08:59 Last Admin: 08/23/16 09:57 Dose: Not Given Lactulose (Cephulac) 20 gm PO BID [facility] Stop: 10/17/16 08:59 Last Admin: 08/23/16 09:57 Dose: Not Given Levetiracetam (Keppra) 500 mg PO BID [facility] Stop: 10/19/16 16:59 Last Admin: 08/23/16 17:47 Dose: 500 mg Lorazepam (Ativan) 2 mg IVP Q2HR PRN; Protocol PRN Reason: Seizures Stop: 10/19/16 10:06 Metronidazole (Flagyl) 500 mg PO TID [facility] Stop: 08/31/16 21:01 Last Admin: 08/23/16 17:52 Dose: 500 mg Miscellaneous (Clinical Monitoring) 1 ea DAILY PRN PRN Reason: RENAL Stop: 10/06/16 08:17 Miscellaneous (Probiotic Screen) 1 ea PRN PRN PRN Reason: PROTOCOL Stop: 10/11/16 14:12 Miscellaneous (Vancomycin Iv Per Pharmacy) 1 ea PRN PRN PRN Reason: PROTOCOL Stop: 10/22/16 11:55 Morphine Sulfate (Morphine) 2 mg IV Q4HR PRN PRN Reason: Pain (Moderate) Stop: 10/15/16 13:36 Last Admin: 08/23/16 04:42 Dose: 2 mg Pantoprazole Sodium (Protonix) 40 mg IVP BID [facility] Stop: 10/19/16 16:59 Last Admin: 08/23/16 17:47 Dose: 40 mg Sodium Bicarbonate (Sodium Bicarb) 50 meq IVP BID [facility] Stop: 10/13/16 16:59 Last Admin: 08/23/16 17:47 Dose: 50 meq General: Alert, No acute distress HEENT: Atraumatic, Mucous membr. moist/pink Neck: Supple, +2 carotid pulse wo bruit Cardiovascular: Regular rate, Normal S1, Normal S2 Lungs: Other (few rhonchi) Abdomen: Bowel sounds, Soft, Other (obese) Extremities: Edema ((+) 3 bipedal edema) Neurological: Sensation intact Skin: no Rash - Procedures Procedures: Procedures Procedure Code Date ARTERY-VEIN NONAUTOGRAFT 07424 06/22/16 BLOOD TRANSFUSION SERVICE 42051 06/22/16 BYPASS L BRACH ART TO UP ARM VEIN W NONAUT SUB, OPEN [id number] 06/22/16 FLUOROSCOPY OF SUP VENA CAVA USING [facility] CONTRAST, GUIDANCE [id number] 06/22/16 INSERTION OF INFUSION DEV INTO SUP VENA CAVA, PERC APPROACH [id number] 06/22/[address] PL[address] CATHETER IN VEIN 89003 06/22/16 TRANSFUSE NONAUT RED BLOOD CELLS IN PERIPH VEIN, PERC [id number] 06/22/16 Assessment/Plan - Problem List Patient Problems: All Active Problems Anemia (Acute) D64.9 ESRD (end stage renal disease) (Acute) ESRD (end stage renal disease) on dialysis (Acute) N18.6, Z99.2 ESRD (end stage renal disease) on dialysis (Acute) N18.6, Z99.2 HYPOTENSION (Acute) HYPOXEMIA (Acute) MEDICAL EVALUATION PER DR FRY (Acute) septic shock (Acute) - Assessment Assessment: septic shock (better) esrd on hd persistent cellulitis b/l lower ext acute on chronic anemia possible gi bleed ohs chronic a. fib hypothyroid anasarca functional quadriplegia chronic venous stasis dermatitis acute decomp psychosis s/p left avg G (+) cocci in clusters septicemia new onset seizure activity Candidal Esophagitis, Antral gastritis - Plan Plan: Lab - Result Diagrams 07/19/16 09:50 Lab - Result Diagrams 07/22/16 05:21 Lab - Result Diagrams 07/24/16 05:00 Lab - Result Diagrams Lab - Result Diagrams 08/04/16 08:33 Lab - Result Diagrams 08/05/16 05:00 08/04/16 05:45 08/04/16 05:45 07/28/16 05:30 07/28/16 05:30 07/24/16 05:00 07/20/16 05:50 07/19/16 09:50 latest hgb/hct were 9.5/28.5 developed septic shock, off pressors culture grew G (+) cocci, WBC down 11.6 continue ABx transfuse as necessary f/u electrolytes, cbc new right Anton cath new onset seiure activity for hd today Lab - Result Diagrams 07/19/16 09:50 07/20/16 05:50 Lab - Result Diagrams 07/21/16 06:16 07/20/16 05:50 Lab - Result Diagrams 07/26/16 11:05 07/24/16 05:00 Lab - Result Diagrams 07/29/16 05:55 07/28/16 05:30 Lab - Result Diagrams 08/12/16 05:19 08/12/16 05:19 Lab - Result Diagrams 08/17/16 07:20 08/17/16 07:20
[2016-08-24] MEDS: Sodium Bicarbonate 8.4% 50mEq PFS IVP SCH ×2 (08:45→17:19)
[2016-08-24] MEDS: Hydrocortisone Sodium Succ 100 mg Vial IVP SCH ×2 (09:40→16:20)
[2016-08-24] MEDS: Venelex 60gm Tube TP SCH (09:41)
[2016-08-24] MEDS: Lactulose 10 Gm/15 mL 30mL UDC PO SCH ×2 (09:41→17:20)
[2016-08-24] MEDS: Lactobacillus Rhamnosus 10 Billion CFU Capsule PO SCH (09:41)
[2016-08-24] MEDS: Menthol/Zinc Oxide Oint 113gm Tube TP SCH ×4 (09:42→21:04)
[2016-08-24 09:57] LABS: HEMATOCRIT 30.7 % (39.0-49.0); HEMOGLOBIN 10.3 gm/dL (13.2-17.3); MEAN CELL VOLUME 84.3 fl (80-99); MEAN CORPUSCULAR HEMOGLOBIN 28.2 pg (26.0-30.0); MEAN CORPUSCULAR HGB CONC 33.5 pg (28.0-36.0); MEAN PLATELET VOLUME 9.2 fl; PLATELET COUNT 75 Th/cmm (150-400); RED BLOOD COUNT 3.64 Mil/cmm (4.30-5.70); RED CELL DISTRIBUTION WIDTH 15.7 % (11.5-20.0)
[2016-08-24 10:10] LABS: WHITE BLOOD COUNT 15.6 Th/cmm (4.8-10.8)
[2016-08-24 10:28] LABS: BAND NEUTROPHILE 1 % (0-10); NEUTROPHILS 88 % (40-80); TOTAL CELLS COUNTED 100
[2016-08-24 10:29] LABS: PLATELET ESTIMATE DECREASED PLATELETS (NORMAL)
[2016-08-24 10:31] LABS: ANISOCYTOSIS 1+
--- NOTE | 2016-08-24 11:59 | General Progress Note ---
Subjective - Review of Systems Service Date: 08/24/16 Events since last encounter: no distress Subjective: pt is sob on bipap c/o weakness getting better Objective - Results Result Diagrams: 08/24/16 09:45 08/23/16 04:35 Recent Labs: Laboratory Last Values WBC 15.6 Th/cmm (4.8-10.8) H D 08/24/16 09:45 RBC 3.64 Mil/cmm (4.30-5.70) L 08/24/16 09:45 Hgb 10.3 gm/dL (13.2-17.3) L 08/24/16 09:45 Hct 30.7 % (39.0-49.0) L 08/24/16 09:45 MCV 84.3 fl (80-99) 08/24/16 09:45 MCH 28.2 pg (26.0-30.0) 08/24/16 09:45 MCHC Differential 33.5 pg (28.0-36.0) 08/24/16 09:45 RDW 15.7 % (11.5-20.0) 08/24/16 09:45 Plt Count 75 Th/cmm (150-400) L 08/24/16 09:45 MPV 9.2 fl 08/24/16 09:45 Neutrophils % 56.8 % (40.0-80.0) 07/07/16 06:00 Band Neutrophils % 1 % (0-10) 08/24/16 09:45 Lymphocytes % 18.4 % (20.0-50.0) L 07/07/16 06:00 Monocytes % 13.8 % (2.0-10.0) H 07/07/16 06:00 Eosinophils % 11.0 % (0.0-5.0) H 07/07/16 06:00 Basophils % 0.0 % (0.0-2.0) 07/07/16 06:00 Neutrophils (Manual) 88 % (40-80) H 08/24/16 09:45 Lymphocytes 7 % (20-50) L 08/24/16 09:45 Monocytes 4 % (2-10) 08/24/16 09:45 Eosinophils 1 % (0-5) 08/18/16 05:18 Basophils 3 % (0-3) 08/04/16 08:33 Metamyelocytes 1 % (0-0) H 08/14/16 07:40 Myelocytes 1 % 07/14/16 16:00 Nucleated RBCs 1.0 % (0-0) H 08/15/16 09:30 Hypochromia 1+ 07/20/16 23:30 Platelet Estimate DECREASED PLATELETS (NORMAL) 08/24/16 09:45 Platelet Morphology NORMAL (NORMAL) 08/22/16 10:10 Polychromasia 1+ 07/20/16 23:30 Anisocytosis 1+ 08/24/16 09:45 Microcytosis 1+ 07/14/16 16:00 RBC Morph Micro Appear ABNORMAL (NORMAL) 08/24/16 09:45 PT 15.4 SECONDS (9.5-11.5) H 08/23/16 04:35 INR 1.45 (0.5-1.4) H 08/23/16 04:35 PTT (Actin FS) 37.7 SECONDS (26.0-38.0) 08/17/16 07:20 Specimen Source Arterial 08/20/16 08:15 Sample Site Right Radial 08/20/16 08:15 pH 7.33 (7.35-7.45) L 08/20/16 08:15 pCO2 55.0 mmHg (35.0-45.0) H 08/20/16 08:15 pO2 92.0 mmHg (80.0-100.0) 08/20/16 08:15 HCO3 26.5 mEq/L (20.0-26.0) H 08/20/16 08:15 Base Excess 2.0 mEq/L (-3.0-3.0) 08/20/16 08:15 O2 Saturation 97.0 % (92.0-100.0) 08/20/16 08:15 Estuardo Test POSITIVE 08/20/16 08:15 Vent Rate NA 08/20/16 08:15 Inspired O2 32 08/20/16 08:15 Tidal Volume NA 08/20/16 08:15 PEEP NA 08/20/16 08:15 Pressure (ins/psv/peep) NA 08/20/16 08:15 Critical Value CSILVA 08/20/16 08:15 Sodium 135 mEq/L (136-145) L 08/23/16 04:35 Potassium 3.5 mEq/L (3.5-5.1) 08/23/16 04:35 Chloride 100 mEq/L (98-107) 08/23/16 04:35 Carbon Dioxide 25.0 mEq/L (21.0-31.0) 08/23/16 04:35 Anion Gap 13.5 (7.0-16.0) 08/23/16 04:35 BUN 73 mg/dL (7-25) H 08/23/16 04:35 Creatinine 5.4 mg/dL (0.7-1.3) H* 08/23/16 04:35 Est GFR ( Amer) 14.6 ml/min (>90) 08/23/16 04:35 Est GFR (Non-Af Amer) 12.1 ml/min 08/23/16 04:35 BUN/Creatinine Ratio 13.5 08/23/16 04:35 Glucose 169 mg/dL (70-105) H 08/23/16 04:35 POC Glucose 111 MG/DL (70 - 105) H 08/15/16 08:03 Hemoglobin A1c % 4.8 % (4.0-6.0) 08/13/16 06:04 Whole Bld Lactic Acid 1.54 mmol/L (0.60-1.99) 08/13/16 06:04 Calcium 8.3 mg/dL (8.6-10.3) L 08/23/16 04:35 Phosphorus 5.5 mg/dL (2.5-5.0) H 07/19/16 09:50 Magnesium 1.9 mg/dL (1.9-2.7) 08/04/16 05:45 Iron 42 ug/dL (38-169) 06/28/16 04:38 TIBC 269 ug/dL (250-450) 06/28/16 04:38 Iron Saturation 16 % (15-55) 06/28/16 04:38 Unsaturated IBC 227 ug/dL (111-343) 06/28/16 04:38 Ferritin 150 ng/mL (30-400) 06/26/16 08:30 Total Bilirubin 1.0 mg/dL (0.3-1.0) 08/18/16 05:18 Direct Bilirubin 0.70 mg/dL (0.0-0.2) H 06/28/16 04:38 GGTP 14 IU/L (0-65) 06/28/16 04:38 AST 16 U/L (13-39) 08/18/16 05:18 ALT 11 U/L (7-52) 08/18/16 05:18 Alkaline Phosphatase 39 U/L (34-104) 08/18/16 05:18 Ammonia 73 umol/L (16-53) H 08/12/16 05:19 Troponin I < 0.01 ng/mL (0.01-0.05) L 06/22/16 19:33 B-Natriuretic Peptide 668.0 pg/mL (5.0-100.0) H 06/22/16 19:33 Total Protein 7.9 gm/dL (6.0-8.3) 08/18/16 05:18 Albumin 2.8 gm/dL (4.2-5.5) L 08/18/16 05:18 Globulin 5.1 gm/dL 08/18/16 05:18 Albumin/Globulin Ratio 0.6 (1.0-1.8) L 08/18/16 05:18 Amylase 28 U/L (29-103) L 07/02/16 06:40 Lipase 31 U/L (11-82) 07/02/16 06:40 TSH 2.98 uIU/ml (0.34-5.60) 08/13/16 06:04 Urine Source CLEAN C 06/29/16 05:55 Urine Color YELLOW 06/29/16 05:55 Urine Clarity HAZY (CLEAR) 06/29/16 05:55 Urine pH 5.5 06/29/16 05:55 Ur Specific [place] 1.015 (1.005-1.030) 06/29/16 05:55 Urine Protein 30 mg/dL (NEGATIVE) H 06/29/16 05:55 Urine Glucose (UA) NEGATIVE mg/dL (NEGATIVE) 06/29/16 05:55 Urine Ketones NEGATIVE mg/dL (NEGATIVE) 06/29/16 05:55 Urine Blood NEGATIVE (NEGATIVE) 06/29/16 05:55 Urine Nitrate NEGATIVE (NEGATIVE) 06/29/16 05:55 Urine Bilirubin NEGATIVE (NEGATIVE) 06/29/16 05:55 Urine Urobilinogen 0.2 E.U./dL (0.2 - 1.0) 06/29/16 05:55 Ur Leukocyte Esterase TRACE (NEGATIVE) H 06/29/16 05:55 Urine RBC 0-2 /hpf (0-5) H 06/29/16 05:55 Urine WBC 6-10 /hpf (0-5) H 06/29/16 05:55 Ur Epithelial Cells FEW /lpf (FEW) 06/29/16 05:55 Urine Bacteria MANY /hpf (NONE SEEN) 06/29/16 05:55 Stool Occult Blood POSITIVE (NEGATIVE) 08/17/16 11:00 Stool Leukocyte NO WBC SEEN 08/17/16 11:00 Gentamicin Trough ug/ml (0.2-2.0) 08/12/16 05:19 Random Vancomycin 23.3 ug/mL (5.0-40.0) 08/24/16 09:45 RPR NONREACTIVE (NONREACTIVE) 06/22/16 19:33 Hepatitis A IgM Ab Negative (Negative) 06/29/16 05:49 Hep Bs Antigen Negative (Negative) 06/29/16 05:49 Hep B Core IgM Ab Negative (Negative) 06/29/16 05:49 Hepatitis C Antibody >11.0 s/co ratio (0.0-0.9) H 06/29/16 05:49 Blood Type A POSITIVE 08/10/16 21:07 Antibody Screen NEGATIVE 08/10/16 21:07 Crossmatch See Detail 08/10/16 21:07 - Physical Exam Vitals and I&O: Vital Signs Temp 97.9 F 08/24/16 08:00 Pulse 110 08/24/16 08:00 Resp 18 08/24/16 08:00 BP 118/60 08/24/16 08:00 Pulse Ox 100 08/24/16 08:00 Intake & Output 08/23/16 08/24/16 08/24/16 18:59 06:59 18:59 Intake Total 1000 360 350 Output Total 1100 Balance -100 360 350 Intake: Oral 1000 360 350 Output: Gastric Drainage 1000 Hemodialysis 100 Active Medications: Current Medications Acetaminophen (Tylenol) 650 mg PO Q6H PRN PRN Reason: temperature above 100F Stop: 09/28/16 16:14 Last Admin: 07/30/16 16:27 Dose: 650 mg Calamine/Phenol (Calmoseptine) 1 appl TP QID [facility] Stop: 10/14/16 12:59 Last Admin: 08/24/16 09:42 Dose: 1 appl Diphenhydramine HCl (Benadryl 50 Mg/Ml) 50 mg IM Q8HR PRN PRN Reason: Agitation Stop: 08/25/16 12:10 Last Admin: 08/21/16 23:54 Dose: 50 mg Diphenhydramine HCl (Benadryl 50 Mg/Ml) 25 mg IVP Q6HR PRN PRN Reason: itching Stop: 10/11/16 03:12 Last Admin: 08/14/16 11:25 Dose: 25 mg Docusate Sodium (Colace) 100 mg PO Q12HR [facility] Stop: 09/16/16 08:59 Last Admin: 08/24/16 09:41 Dose: Not Given Fluconazole (Diflucan) 100 mg PO DAILY [facility] Stop: 10/23/16 08:59 Last Admin: 08/24/16 09:41 Dose: 100 mg Haloperidol Lactate (Haldol) 5 mg IM Q8HR PRN PRN Reason: Agitation Stop: 08/25/16 12:10 Last Admin: 08/14/16 13:15 Dose: 5 mg Hydrocortisone Sodium Succinate (Solu-Cortef) 50 mg IVP Q8H [facility] Stop: 10/09/16 15:59 Last Admin: 08/24/16 09:40 Dose: 50 mg Sodium Chloride (Nacl 0.9%) 1,000 mls @ 10 mls/hr IV .Q24H [facility] Stop: 10/15/16 15:01 Last Admin: 08/22/16 16:29 Dose: 10 mls/hr Lactobacillus Rhamnosus (Culturelle) 1 each PO DAILY [facility] Stop: 10/12/16 08:59 Last Admin: 08/24/16 09:41 Dose: 1 each Lactulose (Cephulac) 20 gm PO BID [facility] Stop: 10/17/16 08:59 Last Admin: 08/24/16 09:41 Dose: Not Given Levetiracetam (Keppra) 500 mg PO BID [facility] Stop: 10/19/16 16:59 Last Admin: 08/24/16 09:40 Dose: 500 mg Lorazepam (Ativan) 2 mg IVP Q2HR PRN; Protocol PRN Reason: Seizures Stop: 10/19/16 10:06 Metronidazole (Flagyl) 500 mg PO TID [facility] Stop: 08/31/16 21:01 Last Admin: 08/24/16 09:41 Dose: 500 mg Miscellaneous (Clinical Monitoring) 1 ea MC DAILY PRN PRN Reason: RENAL Stop: 10/06/16 08:17 Miscellaneous (Probiotic Screen) 1 ea MC PRN PRN PRN Reason: PROTOCOL Stop: 10/11/16 14:12 Miscellaneous (Vancomycin Iv Per Pharmacy) 1 ea MC PRN PRN PRN Reason: PROTOCOL Stop: 10/22/16 11:55 Morphine Sulfate (Morphine) 2 mg IV Q4HR PRN PRN Reason: Pain (Moderate) Stop: 10/15/16 13:36 Last Admin: 08/23/16 04:42 Dose: 2 mg Pantoprazole Sodium (Protonix) 40 mg IVP BID [facility] Stop: 10/19/16 16:59 Last Admin: 08/24/16 08:52 Dose: 40 mg Sodium Bicarbonate (Sodium Bicarb) 50 meq IVP BID [facility] Stop: 10/13/16 16:59 Last Admin: 08/24/16 08:45 Dose: 50 meq General: No acute distress, Mild distress, no Moderate distress HEENT: Atraumatic Neck: Supple Cardiovascular: Regular rate Lungs: Clear to auscultation Abdomen: Bowel sounds, Distended Extremities: Clubbing - Procedures Procedures: Procedures Procedure Code Date ARTERY-VEIN NONAUTOGRAFT 51757 06/22/16 BLOOD TRANSFUSION SERVICE 78087 06/22/16 BYPASS L BRACH ART TO UP ARM VEIN W NONAUT SUB, OPEN [id number] 06/22/16 FLUOROSCOPY OF SUP VENA CAVA USING [facility] CONTRAST, GUIDANCE [id number] 06/22/16 INSERTION OF INFUSION DEV INTO SUP VENA CAVA, PERC APPROACH [id number] 06/22/[address] CATHETER IN VEIN 34483 06/22/16 TRANSFUSE NONAUT RED BLOOD CELLS IN PERIPH VEIN, PERC [id number] 06/22/16 Assessment/Plan - Problem List Patient Problems: All Active Problems Anemia (Acute) D64.9 ESRD (end stage renal disease) (Acute) ESRD (end stage renal disease) on dialysis (Acute) N18.6, Z99.2 ESRD (end stage renal disease) on dialysis (Acute) N18.6, Z99.2 HYPOTENSION (Acute) HYPOXEMIA (Acute) MEDICAL EVALUATION PER DR FRY (Acute) funtional quadriperisis (Acute) septic shock (Acute) - Assessment Assessment: 1. Cellulitis of legs. 2. Lymphedema of legs. 3. CKD 5 on HD. 4. Morbid obesity. 5 anemia 6 gi bleed 7 psychosis - Plan Plan: dialysis iv antibiotics ltac eval tele status snif plan
--- NOTE | 2016-08-24 12:56 | Pathology Report ---
[id number] Collection date: 08/23/2016 Surgeon: Dr. Santiago Leal Specimen Description: 1: Esophageal biopsy 2: Antrum biopsy 3: Duodenum biopsy Gross Description: Part I: Received in formalin are three garcia soft tissue fragments ranging from 0.1 to 0.2 cm in greatest dimension. Totally submitted in one cassette labeled A. Gross Description: Part II: Received in formalin are two garcia soft tissue fragments ranging from 0.1 to 0.2 cm in greatest dimension. Totally submitted in one cassette labeled B. Gross Description: Part III: Received in formalin are two garcia soft tissue fragments ranging from 0.1 to 0.2 cm in greatest dimension. Totally submitted in one cassette labeled C. Microscopic Description: Part I: The histologic sections show squamous mucosa with extensive inflammatory exudate consisting of large collections of neutrophils admixed with numerous fungal spores and hyphae, consistent with quinn fungus. The PAS stain confirms the presence of quinn. The Alcian blue stain shows no abnormalities. 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 Microscopic Description: Part II: The histologic sections show gastric mucosa with chronic inflammation present consisting of lymphocytes and plasma cells. The Giemsa stain shows no evidence for Helicobacter pylori. Diagnosis: Part II: 1. Chronic gastritis, antrum biopsy. 2. The Giemsa stain is negative for Helicobacter pylori. Microscopic Description: Part III: The histologic sections show duodenal mucosa with intact intestinal villi, showing no evidence for villous abnormality. Diagnosis: Part III: No evidence for celiac disease / Sprue (duodenal biopsy). [facility]# [id number] [facility]
--- NOTE | 2016-08-24 14:35 | General Progress Note ---
Subjective - Review of Systems Service Date: 08/24/16 Subjective: more alert, interactive, on NC Objective - Results Result Diagrams: 08/24/16 09:45 08/23/16 04:35 Recent Labs: Laboratory Last Values WBC 15.6 Th/cmm (4.8-10.8) H D 08/24/16 09:45 RBC 3.64 Mil/cmm (4.30-5.70) L 08/24/16 09:45 Hgb 10.3 gm/dL (13.2-17.3) L 08/24/16 09:45 Hct 30.7 % (39.0-49.0) L 08/24/16 09:45 MCV 84.3 fl (80-99) 08/24/16 09:45 MCH 28.2 pg (26.0-30.0) 08/24/16 09:45 MCHC Differential 33.5 pg (28.0-36.0) 08/24/16 09:45 RDW 15.7 % (11.5-20.0) 08/24/16 09:45 Plt Count 75 Th/cmm (150-400) L 08/24/16 09:45 MPV 9.2 fl 08/24/16 09:45 Neutrophils % 56.8 % (40.0-80.0) 07/07/16 06:00 Band Neutrophils % 1 % (0-10) 08/24/16 09:45 Lymphocytes % 18.4 % (20.0-50.0) L 07/07/16 06:00 Monocytes % 13.8 % (2.0-10.0) H 07/07/16 06:00 Eosinophils % 11.0 % (0.0-5.0) H 07/07/16 06:00 Basophils % 0.0 % (0.0-2.0) 07/07/16 06:00 Neutrophils (Manual) 88 % (40-80) H 08/24/16 09:45 Lymphocytes 7 % (20-50) L 08/24/16 09:45 Monocytes 4 % (2-10) 08/24/16 09:45 Eosinophils 1 % (0-5) 08/18/16 05:18 Basophils 3 % (0-3) 08/04/16 08:33 Metamyelocytes 1 % (0-0) H 08/14/16 07:40 Myelocytes 1 % 07/14/16 16:00 Nucleated RBCs 1.0 % (0-0) H 08/15/16 09:30 Hypochromia 1+ 07/20/16 23:30 Platelet Estimate DECREASED PLATELETS (NORMAL) 08/24/16 09:45 Platelet Morphology NORMAL (NORMAL) 08/22/16 10:10 Polychromasia 1+ 07/20/16 23:30 Anisocytosis 1+ 08/24/16 09:45 Microcytosis 1+ 07/14/16 16:00 RBC Morph Micro Appear ABNORMAL (NORMAL) 08/24/16 09:45 PT 15.4 SECONDS (9.5-11.5) H 08/23/16 04:35 INR 1.45 (0.5-1.4) H 08/23/16 04:35 PTT (Actin FS) 37.7 SECONDS (26.0-38.0) 08/17/16 07:20 Specimen Source Arterial 08/20/16 08:15 Sample Site Right Radial 08/20/16 08:15 pH 7.33 (7.35-7.45) L 08/20/16 08:15 pCO2 55.0 mmHg (35.0-45.0) H 08/20/16 08:15 pO2 92.0 mmHg (80.0-100.0) 08/20/16 08:15 HCO3 26.5 mEq/L (20.0-26.0) H 08/20/16 08:15 Base Excess 2.0 mEq/L (-3.0-3.0) 08/20/16 08:15 O2 Saturation 97.0 % (92.0-100.0) 08/20/16 08:15 Estuardo Test POSITIVE 08/20/16 08:15 Vent Rate NA 08/20/16 08:15 Inspired O2 32 08/20/16 08:15 Tidal Volume NA 08/20/16 08:15 PEEP NA 08/20/16 08:15 Pressure (ins/psv/peep) NA 08/20/16 08:15 Critical Value CSILVA 08/20/16 08:15 Sodium 135 mEq/L (136-145) L 08/23/16 04:35 Potassium 3.5 mEq/L (3.5-5.1) 08/23/16 04:35 Chloride 100 mEq/L (98-107) 08/23/16 04:35 Carbon Dioxide 25.0 mEq/L (21.0-31.0) 08/23/16 04:35 Anion Gap 13.5 (7.0-16.0) 08/23/16 04:35 BUN 73 mg/dL (7-25) H 08/23/16 04:35 Creatinine 5.4 mg/dL (0.7-1.3) H* 08/23/16 04:35 Est GFR ( Amer) 14.6 ml/min (>90) 08/23/16 04:35 Est GFR (Non-Af Amer) 12.1 ml/min 08/23/16 04:35 BUN/Creatinine Ratio 13.5 08/23/16 04:35 Glucose 169 mg/dL (70-105) H 08/23/16 04:35 POC Glucose 111 MG/DL (70 - 105) H 08/15/16 08:03 Hemoglobin A1c % 4.8 % (4.0-6.0) 08/13/16 06:04 Whole Bld Lactic Acid 1.54 mmol/L (0.60-1.99) 08/13/16 06:04 Calcium 8.3 mg/dL (8.6-10.3) L 08/23/16 04:35 Phosphorus 5.5 mg/dL (2.5-5.0) H 07/19/16 09:50 Magnesium 1.9 mg/dL (1.9-2.7) 08/04/16 05:45 Iron 42 ug/dL (38-169) 06/28/16 04:38 TIBC 269 ug/dL (250-450) 06/28/16 04:38 Iron Saturation 16 % (15-55) 06/28/16 04:38 Unsaturated IBC 227 ug/dL (111-343) 06/28/16 04:38 Ferritin 150 ng/mL (30-400) 06/26/16 08:30 Total Bilirubin 1.0 mg/dL (0.3-1.0) 08/18/16 05:18 Direct Bilirubin 0.70 mg/dL (0.0-0.2) H 06/28/16 04:38 GGTP 14 IU/L (0-65) 06/28/16 04:38 AST 16 U/L (13-39) 08/18/16 05:18 ALT 11 U/L (7-52) 08/18/16 05:18 Alkaline Phosphatase 39 U/L (34-104) 08/18/16 05:18 Ammonia 73 umol/L (16-53) H 08/12/16 05:19 Troponin I < 0.01 ng/mL (0.01-0.05) L 06/22/16 19:33 B-Natriuretic Peptide 668.0 pg/mL (5.0-100.0) H 06/22/16 19:33 Total Protein 7.9 gm/dL (6.0-8.3) 08/18/16 05:18 Albumin 2.8 gm/dL (4.2-5.5) L 08/18/16 05:18 Globulin 5.1 gm/dL 08/18/16 05:18 Albumin/Globulin Ratio 0.6 (1.0-1.8) L 08/18/16 05:18 Amylase 28 U/L (29-103) L 07/02/16 06:40 Lipase 31 U/L (11-82) 07/02/16 06:40 TSH 2.98 uIU/ml (0.34-5.60) 08/13/16 06:04 Urine Source CLEAN C 06/29/16 05:55 Urine Color YELLOW 06/29/16 05:55 Urine Clarity HAZY (CLEAR) 06/29/16 05:55 Urine pH 5.5 06/29/16 05:55 Ur Specific [place] 1.015 (1.005-1.030) 06/29/16 05:55 Urine Protein 30 mg/dL (NEGATIVE) H 06/29/16 05:55 Urine Glucose (UA) NEGATIVE mg/dL (NEGATIVE) 06/29/16 05:55 Urine Ketones NEGATIVE mg/dL (NEGATIVE) 06/29/16 05:55 Urine Blood NEGATIVE (NEGATIVE) 06/29/16 05:55 Urine Nitrate NEGATIVE (NEGATIVE) 06/29/16 05:55 Urine Bilirubin NEGATIVE (NEGATIVE) 06/29/16 05:55 Urine Urobilinogen 0.2 E.U./dL (0.2 - 1.0) 06/29/16 05:55 Ur Leukocyte Esterase TRACE (NEGATIVE) H 06/29/16 05:55 Urine RBC 0-2 /hpf (0-5) H 06/29/16 05:55 Urine WBC 6-10 /hpf (0-5) H 06/29/16 05:55 Ur Epithelial Cells FEW /lpf (FEW) 06/29/16 05:55 Urine Bacteria MANY /hpf (NONE SEEN) 06/29/16 05:55 Stool Occult Blood POSITIVE (NEGATIVE) 08/17/16 11:00 Stool Leukocyte NO WBC SEEN 08/17/16 11:00 Gentamicin Trough ug/ml (0.2-2.0) 08/12/16 05:19 Random Vancomycin 23.3 ug/mL (5.0-40.0) 08/24/16 09:45 RPR NONREACTIVE (NONREACTIVE) 06/22/16 19:33 Helicobacter pylori Ab NEGATIVE (NEGATIVE) 08/23/16 12:00 Hepatitis A IgM Ab Negative (Negative) 06/29/16 05:49 Hep Bs Antigen Negative (Negative) 06/29/16 05:49 Hep B Core IgM Ab Negative (Negative) 06/29/16 05:49 Hepatitis C Antibody >11.0 s/co ratio (0.0-0.9) H 06/29/16 05:49 Blood Type A POSITIVE 08/10/16 21:07 Antibody Screen NEGATIVE 08/10/16 21:07 Crossmatch See Detail 08/10/16 21:07 - Physical Exam Vitals and I&O: Vital Signs Temp 98 F 08/24/16 12:00 Pulse 108 08/24/16 12:00 Resp 18 08/24/16 12:00 BP 120/70 08/24/16 12:00 Pulse Ox 100 08/24/16 12:00 Intake & Output 08/23/16 08/24/16 08/24/16 18:59 06:59 18:59 Intake Total 1000 360 350 Output Total 1100 Balance -100 360 350 Intake: Oral 1000 360 350 Output: Gastric Drainage 1000 Hemodialysis 100 Active Medications: Current Medications Acetaminophen (Tylenol) 650 mg PO Q6H PRN PRN Reason: temperature above 100F Stop: 09/28/16 16:14 Last Admin: 07/30/16 16:27 Dose: 650 mg Calamine/Phenol (Calmoseptine) 1 appl TP QID [facility] Stop: 10/14/16 12:59 Last Admin: 08/24/16 13:00 Dose: 1 appl Diphenhydramine HCl (Benadryl 50 Mg/Ml) 50 mg IM Q8HR PRN PRN Reason: Agitation Stop: 08/25/16 12:10 Last Admin: 08/21/16 23:54 Dose: 50 mg Diphenhydramine HCl (Benadryl 50 Mg/Ml) 25 mg IVP Q6HR PRN PRN Reason: itching Stop: 10/11/16 03:12 Last Admin: 08/14/16 11:25 Dose: 25 mg Docusate Sodium (Colace) 100 mg PO Q12HR [facility] Stop: 09/16/16 08:59 Last Admin: 08/24/16 09:41 Dose: Not Given Fluconazole (Diflucan) 100 mg PO DAILY [facility] Stop: 10/23/16 08:59 Last Admin: 08/24/16 09:41 Dose: 100 mg Haloperidol Lactate (Haldol) 5 mg IM Q8HR PRN PRN Reason: Agitation Stop: 08/25/16 12:10 Last Admin: 08/14/16 13:15 Dose: 5 mg Hydrocortisone Sodium Succinate (Solu-Cortef) 50 mg IVP Q8H [facility] Stop: 10/09/16 15:59 Last Admin: 08/24/16 09:40 Dose: 50 mg Sodium Chloride (Nacl 0.9%) 1,000 mls @ 10 mls/hr IV .Q24H [facility] Stop: 10/15/16 15:01 Last Admin: 08/22/16 16:29 Dose: 10 mls/hr Lactobacillus Rhamnosus (Culturelle) 1 each PO DAILY [facility] Stop: 10/12/16 08:59 Last Admin: 08/24/16 09:41 Dose: 1 each Lactulose (Cephulac) 20 gm PO BID [facility] Stop: 10/17/16 08:59 Last Admin: 08/24/16 09:41 Dose: Not Given Levetiracetam (Keppra) 500 mg PO BID [facility] Stop: 10/19/16 16:59 Last Admin: 08/24/16 09:40 Dose: 500 mg Lorazepam (Ativan) 2 mg IVP Q2HR PRN; Protocol PRN Reason: Seizures Stop: 10/19/16 10:06 Metronidazole (Flagyl) 500 mg PO TID [facility] Stop: 08/31/16 21:01 Last Admin: 08/24/16 14:04 Dose: 500 mg Miscellaneous (Clinical Monitoring) 1 ea MC DAILY PRN PRN Reason: RENAL Stop: 10/06/16 08:17 Miscellaneous (Probiotic Screen) 1 ea MC PRN PRN PRN Reason: PROTOCOL Stop: 10/11/16 14:12 Miscellaneous (Vancomycin Iv Per Pharmacy) 1 ea MC PRN PRN PRN Reason: PROTOCOL Stop: 10/22/16 11:55 Morphine Sulfate (Morphine) 2 mg IV Q4HR PRN PRN Reason: Pain (Moderate) Stop: 10/15/16 13:36 Last Admin: 08/23/16 04:42 Dose: 2 mg Pantoprazole Sodium (Protonix) 40 mg IVP BID [facility] Stop: 10/19/16 16:59 Last Admin: 08/24/16 08:52 Dose: 40 mg Sodium Bicarbonate (Sodium Bicarb) 50 meq IVP BID [facility] Stop: 10/13/16 16:59 Last Admin: 08/24/16 08:45 Dose: 50 meq General: Alert, No acute distress HEENT: Atraumatic, Mucous membr. moist/pink Neck: Supple, +2 carotid pulse wo bruit Cardiovascular: Regular rate, Normal S1, Normal S2 Lungs: Other (few rhonchi) Abdomen: Bowel sounds, Soft Extremities: no Edema Neurological: Sensation intact Skin: no Rash - Procedures Procedures: Procedures Procedure Code Date ARTERY-VEIN NONAUTOGRAFT 55287 06/22/16 BLOOD TRANSFUSION SERVICE 76204 06/22/16 BYPASS L BRACH ART TO UP ARM VEIN W NONAUT SUB, OPEN [id number] 06/22/16 FLUOROSCOPY OF SUP VENA CAVA USING [facility] CONTRAST, GUIDANCE [id number] 06/22/16 INSERTION OF INFUSION DEV INTO SUP VENA CAVA, PERC APPROACH [id number] 06/22/[address] PL[address] CATHETER IN VEIN 38437 06/22/16 TRANSFUSE NONAUT RED BLOOD CELLS IN PERIPH VEIN, PERC [id number] 06/22/16 Assessment/Plan - Problem List Patient Problems: All Active Problems Anemia (Acute) D64.9 ESRD (end stage renal disease) (Acute) ESRD (end stage renal disease) on dialysis (Acute) N18.6, Z99.2 ESRD (end stage renal disease) on dialysis (Acute) N18.6, Z99.2 HYPOTENSION (Acute) HYPOXEMIA (Acute) MEDICAL EVALUATION PER DR FRY (Acute) septic shock (Acute) - Assessment Assessment: septic shock (better) esrd on hd persistent cellulitis b/l lower ext acute on chronic anemia possible gi bleed ohs chronic a. fib hypothyroid anasarca functional quadriplegia chronic venous stasis dermatitis acute decomp psychosis s/p left avg G (+) cocci in clusters septicemia new onset seizure activity Candidal Esophagitis, Antral gastritis - Plan Plan: Lab - Result Diagrams 07/19/16 09:50 Lab - Result Diagrams 07/22/16 05:21 Lab - Result Diagrams 07/24/16 05:00 Lab - Result Diagrams Lab - Result Diagrams 08/04/16 08:33 Lab - Result Diagrams 08/05/16 05:00 08/04/16 05:45 08/04/16 05:45 07/28/16 05:30 07/28/16 05:30 07/24/16 05:00 07/20/16 05:50 07/19/16 09:50 latest hgb/hct were 10.3/30.7 culture grew G (+) cocci, WBC up to 15.6 continue ABx transfuse as necessary f/u electrolytes, cbc new right Anton cath new onset seiure activity for hd tomorrow Lab - Result Diagrams 07/19/16 09:50 07/20/16 05:50 Lab - Result Diagrams 07/21/16 06:16 07/20/16 05:50 Lab - Result Diagrams 07/26/16 11:05 07/24/16 05:00 Lab - Result Diagrams 07/29/16 05:55 07/28/16 05:30 Lab - Result Diagrams 08/12/16 05:19 08/12/16 05:19 Lab - Result Diagrams 08/17/16 07:20 08/17/16 07:20
[2016-08-25 06:58] LABS: HEMOGLOBIN 9.4 gm/dL (13.2-17.3)
[2016-08-25 07:06] LABS: HEMATOCRIT 28.3 % (39.0-49.0); MEAN CELL VOLUME 83.7 fl (80-99); MEAN CORPUSCULAR HEMOGLOBIN 27.9 pg (26.0-30.0); MEAN CORPUSCULAR HGB CONC 33.4 pg (28.0-36.0); MEAN PLATELET VOLUME 9.4 fl; PLATELET COUNT 76 Th/cmm (150-400); RED BLOOD COUNT 3.38 Mil/cmm (4.30-5.70); RED CELL DISTRIBUTION WIDTH 15.8 % (11.5-20.0)
[2016-08-25 07:16] LABS: WHITE BLOOD COUNT 11.9 Th/cmm (4.8-10.8)
[2016-08-25 07:28] LABS: ALB/GLOB RATIO 0.6 (1.0-1.8); BILIRUBIN,TOTAL 0.9 mg/dL (0.3-1.0); BUN/CREATININE RATIO 14.3; CALCIUM SERUM 8.4 mg/dL (8.6-10.3); CARBON DIOXIDE 24.8 mEq/L (21.0-31.0); POTASSIUM SERUM 3.8 mEq/L (3.5-5.1)
[2016-08-25 07:43] LABS: CREATININE - SERUM 5.4 mg/dL (0.7-1.3)
[2016-08-25 09:02] LABS: NEUTROPHILS 93 % (40-80); TOTAL CELLS COUNTED 100
[2016-08-25 09:03] LABS: ANISOCYTOSIS 1+; PLATELET ESTIMATE DECREASED PLATELETS (NORMAL); PLATELET MORPHOLOGY NORMAL (NORMAL)
--- NOTE | 2016-08-25 09:24 | General Progress Note ---
Subjective - Review of Systems Events since last encounter: no distress Subjective: pt is sob on bipap c/o weakness getting better Objective - Results Result Diagrams: 08/25/16 06:51 08/25/16 06:51 Recent Labs: Laboratory Last Values WBC 11.9 Th/cmm (4.8-10.8) H D 08/25/16 06:51 RBC 3.38 Mil/cmm (4.30-5.70) L 08/25/16 06:51 Hgb 9.4 gm/dL (13.2-17.3) L 08/25/16 06:51 Hct 28.3 % (39.0-49.0) L 08/25/16 06:51 MCV 83.7 fl (80-99) 08/25/16 06:51 MCH 27.9 pg (26.0-30.0) 08/25/16 06:51 MCHC Differential 33.4 pg (28.0-36.0) 08/25/16 06:51 RDW 15.8 % (11.5-20.0) 08/25/16 06:51 Plt Count 76 Th/cmm (150-400) L 08/25/16 06:51 MPV 9.4 fl 08/25/16 06:51 Neutrophils % 56.8 % (40.0-80.0) 07/07/16 06:00 Band Neutrophils % 1 % (0-10) 08/24/16 09:45 Lymphocytes % 18.4 % (20.0-50.0) L 07/07/16 06:00 Monocytes % 13.8 % (2.0-10.0) H 07/07/16 06:00 Eosinophils % 11.0 % (0.0-5.0) H 07/07/16 06:00 Basophils % 0.0 % (0.0-2.0) 07/07/16 06:00 Neutrophils (Manual) 93 % (40-80) H 08/25/16 06:51 Lymphocytes 4 % (20-50) L 08/25/16 06:51 Monocytes 3 % (2-10) 08/25/16 06:51 Eosinophils 1 % (0-5) 08/18/16 05:18 Basophils 3 % (0-3) 08/04/16 08:33 Metamyelocytes 1 % (0-0) H 08/14/16 07:40 Myelocytes 1 % 07/14/16 16:00 Nucleated RBCs 1.0 % (0-0) H 08/15/16 09:30 Hypochromia 1+ 07/20/16 23:30 Platelet Estimate DECREASED PLATELETS (NORMAL) 08/25/16 06:51 Platelet Morphology NORMAL (NORMAL) 08/25/16 06:51 Polychromasia 1+ 07/20/16 23:30 Anisocytosis 1+ 08/25/16 06:51 Microcytosis 1+ 07/14/16 16:00 RBC Morph Micro Appear ABNORMAL (NORMAL) 08/25/16 06:51 PT 15.4 SECONDS (9.5-11.5) H 08/23/16 04:35 INR 1.45 (0.5-1.4) H 08/23/16 04:35 PTT (Actin FS) 37.7 SECONDS (26.0-38.0) 08/17/16 07:20 Specimen Source Arterial 08/20/16 08:15 Sample Site Right Radial 08/20/16 08:15 pH 7.33 (7.35-7.45) L 08/20/16 08:15 pCO2 55.0 mmHg (35.0-45.0) H 08/20/16 08:15 pO2 92.0 mmHg (80.0-100.0) 08/20/16 08:15 HCO3 26.5 mEq/L (20.0-26.0) H 08/20/16 08:15 Base Excess 2.0 mEq/L (-3.0-3.0) 08/20/16 08:15 O2 Saturation 97.0 % (92.0-100.0) 08/20/16 08:15 Estuardo Test POSITIVE 08/20/16 08:15 Vent Rate NA 08/20/16 08:15 Inspired O2 32 08/20/16 08:15 Tidal Volume NA 08/20/16 08:15 PEEP NA 08/20/16 08:15 Pressure (ins/psv/peep) NA 08/20/16 08:15 Critical Value CSILVA 08/20/16 08:15 Sodium 133 mEq/L (136-145) L 08/25/16 06:51 Potassium 3.8 mEq/L (3.5-5.1) 08/25/16 06:51 Chloride 101 mEq/L (98-107) 08/25/16 06:51 Carbon Dioxide 24.8 mEq/L (21.0-31.0) 08/25/16 06:51 Anion Gap 11.0 (7.0-16.0) 08/25/16 06:51 BUN 77 mg/dL (7-25) H 08/25/16 06:51 Creatinine 5.4 mg/dL (0.7-1.3) H* 08/25/16 06:51 Est GFR ( Amer) 14.6 ml/min (>90) 08/25/16 06:51 Est GFR (Non-Af Amer) 12.1 ml/min 08/25/16 06:51 BUN/Creatinine Ratio 14.3 08/25/16 06:51 Glucose 134 mg/dL (70-105) H 08/25/16 06:51 POC Glucose 111 MG/DL (70 - 105) H 08/15/16 08:03 Hemoglobin A1c % 4.8 % (4.0-6.0) 08/13/16 06:04 Whole Bld Lactic Acid 1.54 mmol/L (0.60-1.99) 08/13/16 06:04 Calcium 8.4 mg/dL (8.6-10.3) L 08/25/16 06:51 Phosphorus 5.5 mg/dL (2.5-5.0) H 07/19/16 09:50 Magnesium 1.9 mg/dL (1.9-2.7) 08/04/16 05:45 Iron 42 ug/dL (38-169) 06/28/16 04:38 TIBC 269 ug/dL (250-450) 06/28/16 04:38 Iron Saturation 16 % (15-55) 06/28/16 04:38 Unsaturated IBC 227 ug/dL (111-343) 06/28/16 04:38 Ferritin 150 ng/mL (30-400) 06/26/16 08:30 Total Bilirubin 0.9 mg/dL (0.3-1.0) 08/25/16 06:51 Direct Bilirubin 0.70 mg/dL (0.0-0.2) H 06/28/16 04:38 GGTP 14 IU/L (0-65) 06/28/16 04:38 AST 9 U/L (13-39) L 08/25/16 06:51 ALT 7 U/L (7-52) 08/25/16 06:51 Alkaline Phosphatase 31 U/L (34-104) L 08/25/16 06:51 Ammonia 73 umol/L (16-53) H 08/12/16 05:19 Troponin I < 0.01 ng/mL (0.01-0.05) L 06/22/16 19:33 B-Natriuretic Peptide 668.0 pg/mL (5.0-100.0) H 06/22/16 19:33 Total Protein 6.8 gm/dL (6.0-8.3) 08/25/16 06:51 Albumin 2.5 gm/dL (4.2-5.5) L 08/25/16 06:51 Globulin 4.3 gm/dL 08/25/16 06:51 Albumin/Globulin Ratio 0.6 (1.0-1.8) L 08/25/16 06:51 Amylase 28 U/L (29-103) L 07/02/16 06:40 Lipase 31 U/L (11-82) 07/02/16 06:40 TSH 2.98 uIU/ml (0.34-5.60) 08/13/16 06:04 Urine Source CLEAN C 06/29/16 05:55 Urine Color YELLOW 06/29/16 05:55 Urine Clarity HAZY (CLEAR) 06/29/16 05:55 Urine pH 5.5 06/29/16 05:55 Ur Specific [place] 1.015 (1.005-1.030) 06/29/16 05:55 Urine Protein 30 mg/dL (NEGATIVE) H 06/29/16 05:55 Urine Glucose (UA) NEGATIVE mg/dL (NEGATIVE) 06/29/16 05:55 Urine Ketones NEGATIVE mg/dL (NEGATIVE) 06/29/16 05:55 Urine Blood NEGATIVE (NEGATIVE) 06/29/16 05:55 Urine Nitrate NEGATIVE (NEGATIVE) 06/29/16 05:55 Urine Bilirubin NEGATIVE (NEGATIVE) 06/29/16 05:55 Urine Urobilinogen 0.2 E.U./dL (0.2 - 1.0) 06/29/16 05:55 Ur Leukocyte Esterase TRACE (NEGATIVE) H 06/29/16 05:55 Urine RBC 0-2 /hpf (0-5) H 06/29/16 05:55 Urine WBC 6-10 /hpf (0-5) H 06/29/16 05:55 Ur Epithelial Cells FEW /lpf (FEW) 06/29/16 05:55 Urine Bacteria MANY /hpf (NONE SEEN) 06/29/16 05:55 Stool Occult Blood POSITIVE (NEGATIVE) 08/17/16 11:00 Stool Leukocyte NO WBC SEEN 08/17/16 11:00 Gentamicin Trough ug/ml (0.2-2.0) 08/12/16 05:19 Random Vancomycin 23.3 ug/mL (5.0-40.0) 08/24/16 09:45 RPR NONREACTIVE (NONREACTIVE) 06/22/16 19:33 Helicobacter pylori Ab NEGATIVE (NEGATIVE) 08/23/16 12:00 Hepatitis A IgM Ab Negative (Negative) 06/29/16 05:49 Hep Bs Antigen Negative (Negative) 06/29/16 05:49 Hep B Core IgM Ab Negative (Negative) 06/29/16 05:49 Hepatitis C Antibody >11.0 s/co ratio (0.0-0.9) H 06/29/16 05:49 Blood Type A POSITIVE 08/10/16 21:07 Antibody Screen NEGATIVE 08/10/16 21:07 Crossmatch See Detail 08/10/16 21:07 - Physical Exam Vitals and I&O: Vital Signs Temp 97.5 F 08/25/16 04:00 Pulse 77 08/25/16 04:00 Resp 18 08/25/16 04:00 BP 92/56 08/25/16 04:00 Pulse Ox 98 08/25/16 04:00 Intake & Output 08/24/16 08/25/16 08/25/16 18:59 06:59 18:59 Intake Total 900 Balance 900 Intake: Oral 900 Other: # Bowel Movements 0 Active Medications: Current Medications Acetaminophen (Tylenol) 650 mg PO Q6H PRN PRN Reason: temperature above 100F Stop: 09/28/16 16:14 Last Admin: 07/30/16 16:27 Dose: 650 mg Calamine/Phenol (Calmoseptine) 1 appl TP QID [facility] Stop: 10/14/16 12:59 Last Admin: 08/24/16 21:04 Dose: 1 appl Diphenhydramine HCl (Benadryl 50 Mg/Ml) 50 mg IM Q8HR PRN PRN Reason: Agitation Stop: 08/25/16 12:10 Last Admin: 08/21/16 23:54 Dose: 50 mg Diphenhydramine HCl (Benadryl 50 Mg/Ml) 25 mg IVP Q6HR PRN PRN Reason: itching Stop: 10/11/16 03:12 Last Admin: 08/14/16 11:25 Dose: 25 mg Docusate Sodium (Colace) 100 mg PO Q12HR [facility] Stop: 09/16/16 08:59 Last Admin: 08/24/16 21:00 Dose: 100 mg Fluconazole (Diflucan) 100 mg PO DAILY [facility] Stop: 10/23/16 08:59 Last Admin: 08/24/16 09:41 Dose: 100 mg Haloperidol Lactate (Haldol) 5 mg IM Q8HR PRN PRN Reason: Agitation Stop: 08/25/16 12:10 Last Admin: 08/14/16 13:15 Dose: 5 mg Hydrocortisone Sodium Succinate (Solu-Cortef) 50 mg IVP Q8H [facility] Stop: 10/09/16 15:59 Last Admin: 08/24/16 16:20 Dose: 50 mg Sodium Chloride (Nacl 0.9%) 1,000 mls @ 10 mls/hr IV .Q24H [facility] Stop: 10/15/16 15:01 Last Admin: 08/22/16 16:29 Dose: 10 mls/hr Lactobacillus Rhamnosus (Culturelle) 1 each PO DAILY [facility] Stop: 10/12/16 08:59 Last Admin: 08/24/16 09:41 Dose: 1 each Lactulose (Cephulac) 20 gm PO BID [facility] Stop: 10/17/16 08:59 Last Admin: 08/24/16 17:20 Dose: Not Given Levetiracetam (Keppra) 500 mg PO BID [facility] Stop: 10/19/16 16:59 Last Admin: 08/24/16 17:20 Dose: 500 mg Lorazepam (Ativan) 2 mg IVP Q2HR PRN; Protocol PRN Reason: Seizures Stop: 10/19/16 10:06 Metronidazole (Flagyl) 500 mg PO TID [facility] Stop: 08/31/16 21:01 Last Admin: 08/24/16 21:00 Dose: 500 mg Miscellaneous (Clinical Monitoring) 1 ea MC DAILY PRN PRN Reason: RENAL Stop: 10/06/16 08:17 Miscellaneous (Probiotic Screen) 1 ea MC PRN PRN PRN Reason: PROTOCOL Stop: 10/11/16 14:12 Miscellaneous (Vancomycin Iv Per Pharmacy) 1 ea MC PRN PRN PRN Reason: PROTOCOL Stop: 10/22/16 11:55 Morphine Sulfate (Morphine) 2 mg IV Q4HR PRN PRN Reason: Pain (Moderate) Stop: 10/15/16 13:36 Last Admin: 08/23/16 04:42 Dose: 2 mg Pantoprazole Sodium (Protonix) 40 mg IVP BID [facility] Stop: 10/19/16 16:59 Last Admin: 08/24/16 17:20 Dose: 40 mg Sodium Bicarbonate (Sodium Bicarb) 50 meq IVP BID [facility] Stop: 10/13/16 16:59 Last Admin: 08/24/16 17:19 Dose: 50 meq General: No acute distress HEENT: Atraumatic Neck: Supple Cardiovascular: Regular rate Abdomen: Bowel sounds - Procedures Procedures: Procedures Procedure Code Date ARTERY-VEIN NONAUTOGRAFT 31340 06/22/16 BLOOD TRANSFUSION SERVICE 78793 06/22/16 BYPASS L BRACH ART TO UP ARM VEIN W NONAUT SUB, OPEN [id number] 06/22/16 FLUOROSCOPY OF SUP VENA CAVA USING [facility] CONTRAST, GUIDANCE [id number] 06/22/16 INSERTION OF INFUSION DEV INTO SUP VENA CAVA, PERC APPROACH [id number] 06/22/[address] CATHETER IN VEIN 05743 06/22/16 TRANSFUSE NONAUT RED BLOOD CELLS IN PERIPH VEIN, PERC [id number] 06/22/16 Assessment/Plan - Problem List Patient Problems: All Active Problems Anemia (Acute) D64.9 ESRD (end stage renal disease) (Acute) ESRD (end stage renal disease) on dialysis (Acute) N18.6, Z99.2 ESRD (end stage renal disease) on dialysis (Acute) N18.6, Z99.2 HYPOTENSION (Acute) HYPOXEMIA (Acute) MEDICAL EVALUATION PER DR FRY (Acute) funtional quadriperisis (Acute) septic shock (Acute) - Assessment Assessment: 1. Cellulitis of legs. 2. Lymphedema of legs. 3. CKD 5 on HD. 4. Morbid obesity. 5 anemia 6 gi bleed 7 psychosis - Plan Plan: dialysis iv antibiotics ltac eval tele status snif plan
[2016-08-25] MEDS: Lactobacillus Rhamnosus 10 Billion CFU Capsule PO SCH (09:33)
[2016-08-25] MEDS: Lactulose 10 Gm/15 mL 30mL UDC PO SCH ×2 (09:34→16:58)
[2016-08-25] MEDS: Hydrocortisone Sodium Succ 100 mg Vial IVP SCH ×2 (09:45→17:01)
[2016-08-25] MEDS: Sodium Bicarbonate 8.4% 50mEq PFS IVP SCH ×2 (10:14→17:04)
--- NOTE | 2016-08-25 15:13 | General Progress Note ---
Subjective - Review of Systems Service Date: 08/25/16 Subjective: sleeping, arousable, on NC Objective - Results Result Diagrams: 08/25/16 06:51 08/25/16 06:51 Recent Labs: Laboratory Last Values WBC 11.9 Th/cmm (4.8-10.8) H D 08/25/16 06:51 RBC 3.38 Mil/cmm (4.30-5.70) L 08/25/16 06:51 Hgb 9.4 gm/dL (13.2-17.3) L 08/25/16 06:51 Hct 28.3 % (39.0-49.0) L 08/25/16 06:51 MCV 83.7 fl (80-99) 08/25/16 06:51 MCH 27.9 pg (26.0-30.0) 08/25/16 06:51 MCHC Differential 33.4 pg (28.0-36.0) 08/25/16 06:51 RDW 15.8 % (11.5-20.0) 08/25/16 06:51 Plt Count 76 Th/cmm (150-400) L 08/25/16 06:51 MPV 9.4 fl 08/25/16 06:51 Neutrophils % 56.8 % (40.0-80.0) 07/07/16 06:00 Band Neutrophils % 1 % (0-10) 08/24/16 09:45 Lymphocytes % 18.4 % (20.0-50.0) L 07/07/16 06:00 Monocytes % 13.8 % (2.0-10.0) H 07/07/16 06:00 Eosinophils % 11.0 % (0.0-5.0) H 07/07/16 06:00 Basophils % 0.0 % (0.0-2.0) 07/07/16 06:00 Neutrophils (Manual) 93 % (40-80) H 08/25/16 06:51 Lymphocytes 4 % (20-50) L 08/25/16 06:51 Monocytes 3 % (2-10) 08/25/16 06:51 Eosinophils 1 % (0-5) 08/18/16 05:18 Basophils 3 % (0-3) 08/04/16 08:33 Metamyelocytes 1 % (0-0) H 08/14/16 07:40 Myelocytes 1 % 07/14/16 16:00 Nucleated RBCs 1.0 % (0-0) H 08/15/16 09:30 Hypochromia 1+ 07/20/16 23:30 Platelet Estimate DECREASED PLATELETS (NORMAL) 08/25/16 06:51 Platelet Morphology NORMAL (NORMAL) 08/25/16 06:51 Polychromasia 1+ 07/20/16 23:30 Anisocytosis 1+ 08/25/16 06:51 Microcytosis 1+ 07/14/16 16:00 RBC Morph Micro Appear ABNORMAL (NORMAL) 08/25/16 06:51 PT 15.4 SECONDS (9.5-11.5) H 08/23/16 04:35 INR 1.45 (0.5-1.4) H 08/23/16 04:35 PTT (Actin FS) 37.7 SECONDS (26.0-38.0) 08/17/16 07:20 Specimen Source Arterial 08/20/16 08:15 Sample Site Right Radial 08/20/16 08:15 pH 7.33 (7.35-7.45) L 08/20/16 08:15 pCO2 55.0 mmHg (35.0-45.0) H 08/20/16 08:15 pO2 92.0 mmHg (80.0-100.0) 08/20/16 08:15 HCO3 26.5 mEq/L (20.0-26.0) H 08/20/16 08:15 Base Excess 2.0 mEq/L (-3.0-3.0) 08/20/16 08:15 O2 Saturation 97.0 % (92.0-100.0) 08/20/16 08:15 Estuardo Test POSITIVE 08/20/16 08:15 Vent Rate NA 08/20/16 08:15 Inspired O2 32 08/20/16 08:15 Tidal Volume NA 08/20/16 08:15 PEEP NA 08/20/16 08:15 Pressure (ins/psv/peep) NA 08/20/16 08:15 Critical Value CSILVA 08/20/16 08:15 Sodium 133 mEq/L (136-145) L 08/25/16 06:51 Potassium 3.8 mEq/L (3.5-5.1) 08/25/16 06:51 Chloride 101 mEq/L (98-107) 08/25/16 06:51 Carbon Dioxide 24.8 mEq/L (21.0-31.0) 08/25/16 06:51 Anion Gap 11.0 (7.0-16.0) 08/25/16 06:51 BUN 77 mg/dL (7-25) H 08/25/16 06:51 Creatinine 5.4 mg/dL (0.7-1.3) H* 08/25/16 06:51 Est GFR ( Amer) 14.6 ml/min (>90) 08/25/16 06:51 Est GFR (Non-Af Amer) 12.1 ml/min 08/25/16 06:51 BUN/Creatinine Ratio 14.3 08/25/16 06:51 Glucose 134 mg/dL (70-105) H 08/25/16 06:51 POC Glucose 111 MG/DL (70 - 105) H 08/15/16 08:03 Hemoglobin A1c % 4.8 % (4.0-6.0) 08/13/16 06:04 Whole Bld Lactic Acid 1.54 mmol/L (0.60-1.99) 08/13/16 06:04 Calcium 8.4 mg/dL (8.6-10.3) L 08/25/16 06:51 Phosphorus 5.5 mg/dL (2.5-5.0) H 07/19/16 09:50 Magnesium 1.9 mg/dL (1.9-2.7) 08/04/16 05:45 Iron 42 ug/dL (38-169) 06/28/16 04:38 TIBC 269 ug/dL (250-450) 06/28/16 04:38 Iron Saturation 16 % (15-55) 06/28/16 04:38 Unsaturated IBC 227 ug/dL (111-343) 06/28/16 04:38 Ferritin 150 ng/mL (30-400) 06/26/16 08:30 Total Bilirubin 0.9 mg/dL (0.3-1.0) 08/25/16 06:51 Direct Bilirubin 0.70 mg/dL (0.0-0.2) H 06/28/16 04:38 GGTP 14 IU/L (0-65) 06/28/16 04:38 AST 9 U/L (13-39) L 08/25/16 06:51 ALT 7 U/L (7-52) 08/25/16 06:51 Alkaline Phosphatase 31 U/L (34-104) L 08/25/16 06:51 Ammonia 73 umol/L (16-53) H 08/12/16 05:19 Troponin I < 0.01 ng/mL (0.01-0.05) L 06/22/16 19:33 B-Natriuretic Peptide 668.0 pg/mL (5.0-100.0) H 06/22/16 19:33 Total Protein 6.8 gm/dL (6.0-8.3) 08/25/16 06:51 Albumin 2.5 gm/dL (4.2-5.5) L 08/25/16 06:51 Globulin 4.3 gm/dL 08/25/16 06:51 Albumin/Globulin Ratio 0.6 (1.0-1.8) L 08/25/16 06:51 Amylase 28 U/L (29-103) L 07/02/16 06:40 Lipase 31 U/L (11-82) 07/02/16 06:40 TSH 2.98 uIU/ml (0.34-5.60) 08/13/16 06:04 Urine Source CLEAN C 06/29/16 05:55 Urine Color YELLOW 06/29/16 05:55 Urine Clarity HAZY (CLEAR) 06/29/16 05:55 Urine pH 5.5 06/29/16 05:55 Ur Specific [place] 1.015 (1.005-1.030) 06/29/16 05:55 Urine Protein 30 mg/dL (NEGATIVE) H 06/29/16 05:55 Urine Glucose (UA) NEGATIVE mg/dL (NEGATIVE) 06/29/16 05:55 Urine Ketones NEGATIVE mg/dL (NEGATIVE) 06/29/16 05:55 Urine Blood NEGATIVE (NEGATIVE) 06/29/16 05:55 Urine Nitrate NEGATIVE (NEGATIVE) 06/29/16 05:55 Urine Bilirubin NEGATIVE (NEGATIVE) 06/29/16 05:55 Urine Urobilinogen 0.2 E.U./dL (0.2 - 1.0) 06/29/16 05:55 Ur Leukocyte Esterase TRACE (NEGATIVE) H 06/29/16 05:55 Urine RBC 0-2 /hpf (0-5) H 06/29/16 05:55 Urine WBC 6-10 /hpf (0-5) H 06/29/16 05:55 Ur Epithelial Cells FEW /lpf (FEW) 06/29/16 05:55 Urine Bacteria MANY /hpf (NONE SEEN) 06/29/16 05:55 Stool Occult Blood POSITIVE (NEGATIVE) 08/17/16 11:00 Stool Leukocyte NO WBC SEEN 08/17/16 11:00 Gentamicin Trough ug/ml (0.2-2.0) 08/12/16 05:19 Random Vancomycin 23.3 ug/mL (5.0-40.0) 08/24/16 09:45 RPR NONREACTIVE (NONREACTIVE) 06/22/16 19:33 Helicobacter pylori Ab NEGATIVE (NEGATIVE) 08/23/16 12:00 Hepatitis A IgM Ab Negative (Negative) 06/29/16 05:49 Hep Bs Antigen Negative (Negative) 06/29/16 05:49 Hep B Core IgM Ab Negative (Negative) 06/29/16 05:49 Hepatitis C Antibody >11.0 s/co ratio (0.0-0.9) H 06/29/16 05:49 Blood Type A POSITIVE 08/10/16 21:07 Antibody Screen NEGATIVE 08/10/16 21:07 Crossmatch See Detail 08/10/16 21:07 - Physical Exam Vitals and I&O: Vital Signs Temp 98.2 F 08/25/16 08:00 Pulse 116 08/25/16 08:00 Resp 18 08/25/16 08:00 BP 100/64 08/25/16 08:00 Pulse Ox 98 08/25/16 08:00 Intake & Output 08/24/16 08/25/16 08/25/16 18:59 06:59 18:59 Intake Total 900 Balance 900 Intake: Oral 900 Other: # Bowel Movements 0 Active Medications: Current Medications Acetaminophen (Tylenol) 650 mg PO Q6H PRN PRN Reason: temperature above 100F Stop: 09/28/16 16:14 Last Admin: 07/30/16 16:27 Dose: 650 mg Calamine/Phenol (Calmoseptine) 1 appl TP QID [facility] Stop: 10/14/16 12:59 Last Admin: 08/24/16 21:04 Dose: 1 appl Diphenhydramine HCl (Benadryl 50 Mg/Ml) 25 mg IVP Q6HR PRN PRN Reason: itching Stop: 10/11/16 03:12 Last Admin: 08/14/16 11:25 Dose: 25 mg Docusate Sodium (Colace) 100 mg PO Q12HR [facility] Stop: 09/16/16 08:59 Last Admin: 08/25/16 09:33 Dose: 100 mg Fluconazole (Diflucan) 100 mg PO DAILY [facility] Stop: 10/23/16 08:59 Last Admin: 08/25/16 09:33 Dose: 100 mg Hydrocortisone Sodium Succinate (Solu-Cortef) 50 mg IVP Q8H [facility] Stop: 10/09/16 15:59 Last Admin: 08/25/16 09:45 Dose: 50 mg Sodium Chloride (Nacl 0.9%) 1,000 mls @ 10 mls/hr IV .Q24H [facility] Stop: 10/15/16 15:01 Last Admin: 08/22/16 16:29 Dose: 10 mls/hr Lactobacillus Rhamnosus (Culturelle) 1 each PO DAILY [facility] Stop: 10/12/16 08:59 Last Admin: 08/25/16 09:33 Dose: 1 each Lactulose (Cephulac) 20 gm PO BID [facility] Stop: 10/17/16 08:59 Last Admin: 08/25/16 09:34 Dose: Not Given Levetiracetam (Keppra) 500 mg PO BID [facility] Stop: 10/19/16 16:59 Last Admin: 08/25/16 09:33 Dose: 500 mg Lorazepam (Ativan) 2 mg IVP Q2HR PRN; Protocol PRN Reason: Seizures Stop: 10/19/16 10:06 Metronidazole (Flagyl) 500 mg PO TID [facility] Stop: 08/31/16 21:01 Last Admin: 08/25/16 13:05 Dose: 500 mg Miscellaneous (Clinical Monitoring) 1 ea MC DAILY PRN PRN Reason: RENAL Stop: 10/06/16 08:17 Miscellaneous (Probiotic Screen) 1 ea MC PRN PRN PRN Reason: PROTOCOL Stop: 10/11/16 14:12 Miscellaneous (Vancomycin Iv Per Pharmacy) 1 ea MC PRN PRN PRN Reason: PROTOCOL Stop: 10/22/16 11:55 Morphine Sulfate (Morphine) 2 mg IV Q4HR PRN PRN Reason: Pain (Moderate) Stop: 10/15/16 13:36 Last Admin: 08/23/16 04:42 Dose: 2 mg Pantoprazole Sodium (Protonix) 40 mg IVP BID [facility] Stop: 10/19/16 16:59 Last Admin: 08/25/16 09:46 Dose: 40 mg Sodium Bicarbonate (Sodium Bicarb) 50 meq IVP BID [facility] Stop: 10/13/16 16:59 Last Admin: 08/25/16 10:14 Dose: 50 meq General: Alert, No acute distress HEENT: Atraumatic, Mucous membr. moist/pink Neck: Supple, +2 carotid pulse wo bruit Cardiovascular: Regular rate, Normal S1, Normal S2 Lungs: Other (few rhonchi), no Clear to auscultation, no Normal air movement Abdomen: Bowel sounds, Soft Extremities: no Edema Neurological: Sensation intact Skin: no Rash - Procedures Procedures: Procedures Procedure Code Date ARTERY-VEIN NONAUTOGRAFT 26837 06/22/16 BLOOD TRANSFUSION SERVICE 14015 06/22/16 BYPASS L BRACH ART TO UP ARM VEIN W NONAUT SUB, OPEN [id number] 06/22/16 FLUOROSCOPY OF SUP VENA CAVA USING [facility] CONTRAST, GUIDANCE [id number] 06/22/16 INSERTION OF INFUSION DEV INTO SUP VENA CAVA, [facility] APPROACH [id number] 06/22/[address] PL[address] CATHETER IN VEIN 59494 06/22/16 TRANSFUSE NONAUT RED BLOOD CELLS IN PERIPH VEIN, PERC [id number] 06/22/16 Assessment/Plan - Problem List Patient Problems: All Active Problems Anemia (Acute) D64.9 ESRD (end stage renal disease) (Acute) ESRD (end stage renal disease) on dialysis (Acute) N18.6, Z99.2 ESRD (end stage renal disease) on dialysis (Acute) N18.6, Z99.2 HYPOTENSION (Acute) HYPOXEMIA (Acute) MEDICAL EVALUATION PER DR FRY (Acute) funtional quadriperisis (Acute) septic shock (Acute) - Assessment Assessment: septic shock (better) esrd on hd persistent cellulitis b/l lower ext acute on chronic anemia possible gi bleed ohs chronic a. fib hypothyroid anasarca functional quadriplegia chronic venous stasis dermatitis acute decomp psychosis s/p left avg G (+) cocci in clusters septicemia new onset seizure activity Candidal Esophagitis, Antral gastritis - Plan Plan: Lab - Result Diagrams 07/19/16 09:50 Lab - Result Diagrams 07/22/16 05:21 Lab - Result Diagrams 07/24/16 05:00 Lab - Result Diagrams Lab - Result Diagrams 08/04/16 08:33 Lab - Result Diagrams 08/05/16 05:00 08/04/16 05:45 08/04/16 05:45 07/28/16 05:30 07/28/16 05:30 07/24/16 05:00 07/20/16 05:50 07/19/16 09:50 latest hgb/hct were 9.4/28.3 culture grew G (+) cocci, WBC down to 11.9 continue ABx transfuse as necessary f/u electrolytes, cbc new right Anton cath new onset seiure activity for hd today Lab - Result Diagrams 07/19/16 09:50 07/20/16 05:50 Lab - Result Diagrams 07/21/16 06:16 07/20/16 05:50 Lab - Result Diagrams 07/26/16 11:05 07/24/16 05:00 Lab - Result Diagrams 07/29/16 05:55 07/28/16 05:30 Lab - Result Diagrams 08/12/16 05:19 08/12/16 05:19 Lab - Result Diagrams 08/17/16 07:20 08/17/16 07:20 Lab - Result Diagrams 08/25/16 06:51 08/25/16 06:51
--- NOTE | 2016-08-25 20:59 | Infectious Disease Prog Note ---
Infectious Disease Subjective - Review of Systems Service Date: 08/25/16 Subjective: There is no new change. There is no fever. Infectious Disease Objective - Results Result Diagrams: 08/25/16 06:51 08/25/16 06:51 Recent Labs: Laboratory Last Values WBC 11.9 Th/cmm (4.8-10.8) H D 08/25/16 06:51 RBC 3.38 Mil/cmm (4.30-5.70) L 08/25/16 06:51 Hgb 9.4 gm/dL (13.2-17.3) L 08/25/16 06:51 Hct 28.3 % (39.0-49.0) L 08/25/16 06:51 MCV 83.7 fl (80-99) 08/25/16 06:51 MCH 27.9 pg (26.0-30.0) 08/25/16 06:51 MCHC Differential 33.4 pg (28.0-36.0) 08/25/16 06:51 RDW 15.8 % (11.5-20.0) 08/25/16 06:51 Plt Count 76 Th/cmm (150-400) L 08/25/16 06:51 MPV 9.4 fl 08/25/16 06:51 Neutrophils % 56.8 % (40.0-80.0) 07/07/16 06:00 Band Neutrophils % 1 % (0-10) 08/24/16 09:45 Lymphocytes % 18.4 % (20.0-50.0) L 07/07/16 06:00 Monocytes % 13.8 % (2.0-10.0) H 07/07/16 06:00 Eosinophils % 11.0 % (0.0-5.0) H 07/07/16 06:00 Basophils % 0.0 % (0.0-2.0) 07/07/16 06:00 Neutrophils (Manual) 93 % (40-80) H 08/25/16 06:51 Lymphocytes 4 % (20-50) L 08/25/16 06:51 Monocytes 3 % (2-10) 08/25/16 06:51 Eosinophils 1 % (0-5) 08/18/16 05:18 Basophils 3 % (0-3) 08/04/16 08:33 Metamyelocytes 1 % (0-0) H 08/14/16 07:40 Myelocytes 1 % 07/14/16 16:00 Nucleated RBCs 1.0 % (0-0) H 08/15/16 09:30 Hypochromia 1+ 07/20/16 23:30 Platelet Estimate DECREASED PLATELETS (NORMAL) 08/25/16 06:51 Platelet Morphology NORMAL (NORMAL) 08/25/16 06:51 Polychromasia 1+ 07/20/16 23:30 Anisocytosis 1+ 08/25/16 06:51 Microcytosis 1+ 07/14/16 16:00 RBC Morph Micro Appear ABNORMAL (NORMAL) 08/25/16 06:51 PT 15.4 SECONDS (9.5-11.5) H 08/23/16 04:35 INR 1.45 (0.5-1.4) H 08/23/16 04:35 PTT (Actin FS) 37.7 SECONDS (26.0-38.0) 08/17/16 07:20 Specimen Source Arterial 08/20/16 08:15 Sample Site Right Radial 08/20/16 08:15 pH 7.33 (7.35-7.45) L 08/20/16 08:15 pCO2 55.0 mmHg (35.0-45.0) H 08/20/16 08:15 pO2 92.0 mmHg (80.0-100.0) 08/20/16 08:15 HCO3 26.5 mEq/L (20.0-26.0) H 08/20/16 08:15 Base Excess 2.0 mEq/L (-3.0-3.0) 08/20/16 08:15 O2 Saturation 97.0 % (92.0-100.0) 08/20/16 08:15 Estuardo Test POSITIVE 08/20/16 08:15 Vent Rate NA 08/20/16 08:15 Inspired O2 32 08/20/16 08:15 Tidal Volume NA 08/20/16 08:15 PEEP NA 08/20/16 08:15 Pressure (ins/psv/peep) NA 08/20/16 08:15 Critical Value CSILVA 08/20/16 08:15 Sodium 133 mEq/L (136-145) L 08/25/16 06:51 Potassium 3.8 mEq/L (3.5-5.1) 08/25/16 06:51 Chloride 101 mEq/L (98-107) 08/25/16 06:51 Carbon Dioxide 24.8 mEq/L (21.0-31.0) 08/25/16 06:51 Anion Gap 11.0 (7.0-16.0) 08/25/16 06:51 BUN 77 mg/dL (7-25) H 08/25/16 06:51 Creatinine 5.4 mg/dL (0.7-1.3) H* 08/25/16 06:51 Est GFR ( Amer) 14.6 ml/min (>90) 08/25/16 06:51 Est GFR (Non-Af Amer) 12.1 ml/min 08/25/16 06:51 BUN/Creatinine Ratio 14.3 08/25/16 06:51 Glucose 134 mg/dL (70-105) H 08/25/16 06:51 POC Glucose 111 MG/DL (70 - 105) H 08/15/16 08:03 Hemoglobin A1c % 4.8 % (4.0-6.0) 08/13/16 06:04 Whole Bld Lactic Acid 1.54 mmol/L (0.60-1.99) 08/13/16 06:04 Calcium 8.4 mg/dL (8.6-10.3) L 08/25/16 06:51 Phosphorus 5.5 mg/dL (2.5-5.0) H 07/19/16 09:50 Magnesium 1.9 mg/dL (1.9-2.7) 08/04/16 05:45 Iron 42 ug/dL (38-169) 06/28/16 04:38 TIBC 269 ug/dL (250-450) 06/28/16 04:38 Iron Saturation 16 % (15-55) 06/28/16 04:38 Unsaturated IBC 227 ug/dL (111-343) 06/28/16 04:38 Ferritin 150 ng/mL (30-400) 06/26/16 08:30 Total Bilirubin 0.9 mg/dL (0.3-1.0) 08/25/16 06:51 Direct Bilirubin 0.70 mg/dL (0.0-0.2) H 06/28/16 04:38 GGTP 14 IU/L (0-65) 06/28/16 04:38 AST 9 U/L (13-39) L 08/25/16 06:51 ALT 7 U/L (7-52) 08/25/16 06:51 Alkaline Phosphatase 31 U/L (34-104) L 08/25/16 06:51 Ammonia 73 umol/L (16-53) H 08/12/16 05:19 Troponin I < 0.01 ng/mL (0.01-0.05) L 06/22/16 19:33 B-Natriuretic Peptide 668.0 pg/mL (5.0-100.0) H 06/22/16 19:33 Total Protein 6.8 gm/dL (6.0-8.3) 08/25/16 06:51 Albumin 2.5 gm/dL (4.2-5.5) L 08/25/16 06:51 Globulin 4.3 gm/dL 08/25/16 06:51 Albumin/Globulin Ratio 0.6 (1.0-1.8) L 08/25/16 06:51 Amylase 28 U/L (29-103) L 07/02/16 06:40 Lipase 31 U/L (11-82) 07/02/16 06:40 TSH 2.98 uIU/ml (0.34-5.60) 08/13/16 06:04 Urine Source CLEAN C 06/29/16 05:55 Urine Color YELLOW 06/29/16 05:55 Urine Clarity HAZY (CLEAR) 06/29/16 05:55 Urine pH 5.5 06/29/16 05:55 Ur Specific [place] 1.015 (1.005-1.030) 06/29/16 05:55 Urine Protein 30 mg/dL (NEGATIVE) H 06/29/16 05:55 Urine Glucose (UA) NEGATIVE mg/dL (NEGATIVE) 06/29/16 05:55 Urine Ketones NEGATIVE mg/dL (NEGATIVE) 06/29/16 05:55 Urine Blood NEGATIVE (NEGATIVE) 06/29/16 05:55 Urine Nitrate NEGATIVE (NEGATIVE) 06/29/16 05:55 Urine Bilirubin NEGATIVE (NEGATIVE) 06/29/16 05:55 Urine Urobilinogen 0.2 E.U./dL (0.2 - 1.0) 06/29/16 05:55 Ur Leukocyte Esterase TRACE (NEGATIVE) H 06/29/16 05:55 Urine RBC 0-2 /hpf (0-5) H 06/29/16 05:55 Urine WBC 6-10 /hpf (0-5) H 06/29/16 05:55 Ur Epithelial Cells FEW /lpf (FEW) 06/29/16 05:55 Urine Bacteria MANY /hpf (NONE SEEN) 06/29/16 05:55 Stool Occult Blood POSITIVE (NEGATIVE) 08/17/16 11:00 Stool Leukocyte NO WBC SEEN 08/17/16 11:00 Gentamicin Trough ug/ml (0.2-2.0) 08/12/16 05:19 Random Vancomycin 21.4 ug/mL (5.0-40.0) 08/25/16 15:40 RPR NONREACTIVE (NONREACTIVE) 06/22/16 19:33 Helicobacter pylori Ab NEGATIVE (NEGATIVE) 08/23/16 12:00 Hepatitis A IgM Ab Negative (Negative) 06/29/16 05:49 Hep Bs Antigen Negative (Negative) 06/29/16 05:49 Hep B Core IgM Ab Negative (Negative) 06/29/16 05:49 Hepatitis C Antibody >11.0 s/co ratio (0.0-0.9) H 06/29/16 05:49 Blood Type A POSITIVE 08/10/16 21:07 Antibody Screen NEGATIVE 08/10/16 21:07 Crossmatch See Detail 08/10/16 21:07 - Physical Exam Vitals and I&O: Vital Signs Temp 98.2 F 08/25/16 08:00 Pulse 116 08/25/16 08:00 Resp 18 08/25/16 08:00 BP 100/64 08/25/16 08:00 Pulse Ox 98 08/25/16 08:00 Intake & Output 08/25/16 08/25/16 08/26/16 06:59 18:59 06:59 Intake Total 240 Balance 240 Intake: Oral 240 Active Medications: Current Medications Acetaminophen (Tylenol) 650 mg PO Q6H PRN PRN Reason: temperature above 100F Stop: 09/28/16 16:14 Last Admin: 07/30/16 16:27 Dose: 650 mg Calamine/Phenol (Calmoseptine) 1 appl TP QID [facility] Stop: 10/14/16 12:59 Last Admin: 08/24/16 21:04 Dose: 1 appl Diphenhydramine HCl (Benadryl 50 Mg/Ml) 25 mg IVP Q6HR PRN PRN Reason: itching Stop: 10/11/16 03:12 Last Admin: 08/14/16 11:25 Dose: 25 mg Docusate Sodium (Colace) 100 mg PO Q12HR [facility] Stop: 09/16/16 08:59 Last Admin: 08/25/16 20:45 Dose: 100 mg Fluconazole (Diflucan) 100 mg PO DAILY [facility] Stop: 10/23/16 08:59 Last Admin: 08/25/16 09:33 Dose: 100 mg Hydrocortisone Sodium Succinate (Solu-Cortef) 50 mg IVP Q8H [facility] Stop: 10/09/16 15:59 Last Admin: 08/25/16 17:01 Dose: 50 mg Sodium Chloride (Nacl 0.9%) 1,000 mls @ 10 mls/hr IV .Q24H [facility] Stop: 10/15/16 15:01 Last Admin: 08/22/16 16:29 Dose: 10 mls/hr Lactobacillus Rhamnosus (Culturelle) 1 each PO DAILY [facility] Stop: 10/12/16 08:59 Last Admin: 08/25/16 09:33 Dose: 1 each Lactulose (Cephulac) 20 gm PO BID [facility] Stop: 10/17/16 08:59 Last Admin: 08/25/16 16:58 Dose: Not Given Levetiracetam (Keppra) 500 mg PO BID [facility] Stop: 10/19/16 16:59 Last Admin: 08/25/16 16:52 Dose: 500 mg Lorazepam (Ativan) 2 mg IVP Q2HR PRN; Protocol PRN Reason: Seizures Stop: 10/19/16 10:06 Metronidazole (Flagyl) 500 mg PO TID [facility] Stop: 08/31/16 21:01 Last Admin: 08/25/16 20:45 Dose: 500 mg Miscellaneous (Clinical Monitoring) 1 ea MC DAILY PRN PRN Reason: RENAL Stop: 10/06/16 08:17 Miscellaneous (Probiotic Screen) 1 ea MC PRN PRN PRN Reason: PROTOCOL Stop: 10/11/16 14:12 Miscellaneous (Vancomycin Iv Per Pharmacy) 1 ea MC PRN PRN PRN Reason: PROTOCOL Stop: 10/22/16 11:55 Morphine Sulfate (Morphine) 2 mg IV Q4HR PRN PRN Reason: Pain (Moderate) Stop: 10/15/16 13:36 Last Admin: 08/23/16 04:42 Dose: 2 mg Pantoprazole Sodium (Protonix) 40 mg IVP BID [facility] Stop: 10/19/16 16:59 Last Admin: 08/25/16 17:01 Dose: 40 mg Sodium Bicarbonate (Sodium Bicarb) 50 meq IVP BID [facility] Stop: 10/13/16 16:59 Last Admin: 08/25/16 17:04 Dose: 50 meq General: no acute distress, other (obese) HEENT: atraumatic, normocephalic, PERRLA, EOMI, moist mucous membrane Neck: supple, no thyromegaly Cardiovascular: S1S2, regular, systolic murmur Lungs: clear to auscultation bilaterally, clear to percussion Abdomen: soft, bowel sounds, obese, no tender, no distended, no mass Extremities: no cyanosis, no clubbing Neurological: awake, alert, oriented - Procedures Procedures: Procedures Procedure Code Date ARTERY-VEIN NONAUTOGRAFT 86738 06/22/16 BLOOD TRANSFUSION SERVICE 22087 06/22/16 BYPASS L BRACH ART TO UP ARM VEIN W NONAUT SUB, OPEN [id number] 06/22/16 FLUOROSCOPY OF SUP VENA CAVA USING [facility] CONTRAST, GUIDANCE [id number] 06/22/16 INSERTION OF INFUSION DEV INTO SUP VENA CAVA, PERC APPROACH [id number] 06/22/[address] CATHETER IN VEIN 62336 06/22/16 TRANSFUSE NONAUT RED BLOOD CELLS IN PERIPH VEIN, [facility] [id number] 06/22/16 Infectious Disease Assmt/Plan - Problem List Patient Problems: All Active Problems Anemia (Acute) D64.9 ESRD (end stage renal disease) (Acute) ESRD (end stage renal disease) on dialysis (Acute) N18.6, Z99.2 ESRD (end stage renal disease) on dialysis (Acute) N18.6, Z99.2 HYPOTENSION (Acute) HYPOXEMIA (Acute) MEDICAL EVALUATION PER DR FRY (Acute) funtional quadriperisis (Acute) septic shock (Acute) - Assessment Assessment: 1. Septic shock. resolved. likely line sepsis. MRSA sepsis. 3/4 positive. 2. Pneumonia. 3. CKD 5 on HD. 4. Morbid obesity. 5. hep C. 6. Cellulitis of legs. improved. treated. 7. Lymphedema of legs. 8. CHF. 9. CDAC. 10. Maria C esophagitis. - Plan Plan: Continue vanco IV and flagyl. Contnue Diflucan.
[2016-08-25] MEDS: Menthol/Zinc Oxide Oint 113gm Tube TP SCH (23:56)
[2016-08-26] MEDS: Hydrocortisone Sodium Succ 100 mg Vial IVP SCH ×4 (03:17→16:28)
[2016-08-26] MEDS: Sodium Chloride 0.9% 1,000 ML IV SCH (03:27)
[2016-08-26] MEDS: Lactulose 10 Gm/15 mL 30mL UDC PO SCH ×2 (08:21→16:36)
[2016-08-26] MEDS: Lactobacillus Rhamnosus 10 Billion CFU Capsule PO SCH (09:30)
[2016-08-26] MEDS: Morphine Sulfate 2 mg/mL 1mL Syr IV PRN (09:30)
[2016-08-26] MEDS: Sodium Bicarbonate 8.4% 50mEq PFS IVP SCH ×2 (09:34→16:28)
[2016-08-26] MEDS: Venelex 60gm Tube TP SCH (09:35)
[2016-08-26] MEDS: Menthol/Zinc Oxide Oint 113gm Tube TP SCH ×4 (09:35→21:07)
--- NOTE | 2016-08-26 10:15 | Progress Notes ---
SUBJECTIVE: The patient was seen in his bed, asleep, no signs of distress. The patient currently on nasal cannula, tolerating well, no signs or symptoms of respiratory distress. OBJECTIVE: HEENT: Head is atraumatic, normocephalic. Eyes: Bilateral conjunctivae are clear from injections. NECK: Supple. No JVD. CARDIOVASCULAR: S1 and S2 heard, irregularly. GASTROINTESTINAL: Soft and nontender without guarding. MUSCULOSKELETAL: Bilateral lower extremity edema, no clubbing. ASSESSMENT: 1. Respiratory failure. 2. End-stage renal disease, on hemodialysis. 3. Atrial fibrillation. 4. Anemia. 5. Hypothyroidism. 6. Chronic bilateral lower extremity cellulitis. 7. Obesity. 8. History of psychosis. PLAN: We will continue to monitor the patient's condition and we will follow up for possible discharge. EGD and biopsy result came out negative for H. pylori, sprue or ____. JOB# [id number]
--- NOTE | 2016-08-26 10:49 | General Progress Note ---
Subjective - Review of Systems Subjective: pt is sob on bipap c/o weakness getting better Objective - Results Result Diagrams: 08/25/16 06:51 08/25/16 06:51 Recent Labs: Laboratory Last Values WBC 11.9 Th/cmm (4.8-10.8) H D 08/25/16 06:51 RBC 3.38 Mil/cmm (4.30-5.70) L 08/25/16 06:51 Hgb 9.4 gm/dL (13.2-17.3) L 08/25/16 06:51 Hct 28.3 % (39.0-49.0) L 08/25/16 06:51 MCV 83.7 fl (80-99) 08/25/16 06:51 MCH 27.9 pg (26.0-30.0) 08/25/16 06:51 MCHC Differential 33.4 pg (28.0-36.0) 04 06:51 RDW 15.8 % (11.5-20.0) 08/25/16 06:51 Plt Count 76 Th/cmm (150-400) L 08/25/16 06:51 MPV 9.4 fl 08/25/16 06:51 Neutrophils % 56.8 % (40.0-80.0) 07/07/16 06:00 Band Neutrophils % 1 % (0-10) 08/24/16 09:45 Lymphocytes % 18.4 % (20.0-50.0) L 07/07/16 06:00 Monocytes % 13.8 % (2.0-10.0) H 07/07/16 06:00 Eosinophils % 11.0 % (0.0-5.0) H 07/07/16 06:00 Basophils % 0.0 % (0.0-2.0) 07/07/16 06:00 Neutrophils (Manual) 93 % (40-80) H 08/25/16 06:51 Lymphocytes 4 % (20-50) L 08/25/16 06:51 Monocytes 3 % (2-10) 08/25/16 06:51 Eosinophils 1 % (0-5) 08/18/16 05:18 Basophils 3 % (0-3) 08/04/16 08:33 Metamyelocytes 1 % (0-0) H 08/14/16 07:40 Myelocytes 1 % 07/14/16 16:00 Nucleated RBCs 1.0 % (0-0) H 08/15/16 09:30 Hypochromia 1+ 07/20/16 23:30 Platelet Estimate DECREASED PLATELETS (NORMAL) 08/25/16 06:51 Platelet Morphology NORMAL (NORMAL) 08/25/16 06:51 Polychromasia 1+ 07/20/16 23:30 Anisocytosis 1+ 08/25/16 06:51 Microcytosis 1+ 07/14/16 16:00 RBC Morph Micro Appear ABNORMAL (NORMAL) 08/25/16 06:51 PT 15.4 SECONDS (9.5-11.5) H 08/23/16 04:35 INR 1.45 (0.5-1.4) H 08/23/16 04:35 PTT (Actin FS) 37.7 SECONDS (26.0-38.0) 08/17/16 07:20 Specimen Source Arterial 08/20/16 08:15 Sample Site Right Radial 08/20/16 08:15 pH 7.33 (7.35-7.45) L 08/20/16 08:15 pCO2 55.0 mmHg (35.0-45.0) H 08/20/16 08:15 pO2 92.0 mmHg (80.0-100.0) 08/20/16 08:15 HCO3 26.5 mEq/L (20.0-26.0) H 08/20/16 08:15 Base Excess 2.0 mEq/L (-3.0-3.0) 08/20/16 08:15 O2 Saturation 97.0 % (92.0-100.0) 08/20/16 08:15 Estuardo Test POSITIVE 08/20/16 08:15 Vent Rate NA 08/20/16 08:15 Inspired O2 32 08/20/16 08:15 Tidal Volume NA 08/20/16 08:15 PEEP NA 08/20/16 08:15 Pressure (ins/psv/peep) NA 08/20/16 08:15 Critical Value CSILVA 08/20/16 08:15 Sodium 133 mEq/L (136-145) L 08/25/16 06:51 Potassium 3.8 mEq/L (3.5-5.1) 08/25/16 06:51 Chloride 101 mEq/L (98-107) 08/25/16 06:51 Carbon Dioxide 24.8 mEq/L (21.0-31.0) 08/25/16 06:51 Anion Gap 11.0 (7.0-16.0) 08/25/16 06:51 BUN 77 mg/dL (7-25) H 08/25/16 06:51 Creatinine 5.4 mg/dL (0.7-1.3) H* 08/25/16 06:51 Est GFR ( Amer) 14.6 ml/min (>90) 08/25/16 06:51 Est GFR (Non-Af Amer) 12.1 ml/min 08/25/16 06:51 BUN/Creatinine Ratio 14.3 08/25/16 06:51 Glucose 134 mg/dL (70-105) H 08/25/16 06:51 POC Glucose 111 MG/DL (70 - 105) H 08/15/16 08:03 Hemoglobin A1c % 4.8 % (4.0-6.0) 08/13/16 06:04 Whole Bld Lactic Acid 1.54 mmol/L (0.60-1.99) 08/13/16 06:04 Calcium 8.4 mg/dL (8.6-10.3) L 08/25/16 06:51 Phosphorus 5.5 mg/dL (2.5-5.0) H 07/19/16 09:50 Magnesium 1.9 mg/dL (1.9-2.7) 08/04/16 05:45 Iron 42 ug/dL (38-169) 06/28/16 04:38 TIBC 269 ug/dL (250-450) 06/28/16 04:38 Iron Saturation 16 % (15-55) 06/28/16 04:38 Unsaturated IBC 227 ug/dL (111-343) 06/28/16 04:38 Ferritin 150 ng/mL (30-400) 06/26/16 08:30 Total Bilirubin 0.9 mg/dL (0.3-1.0) 08/25/16 06:51 Direct Bilirubin 0.70 mg/dL (0.0-0.2) H 06/28/16 04:38 GGTP 14 IU/L (0-65) 06/28/16 04:38 AST 9 U/L (13-39) L 08/25/16 06:51 ALT 7 U/L (7-52) 08/25/16 06:51 Alkaline Phosphatase 31 U/L (34-104) L 08/25/16 06:51 Ammonia 73 umol/L (16-53) H 08/12/16 05:19 Troponin I < 0.01 ng/mL (0.01-0.05) L 06/22/16 19:33 B-Natriuretic Peptide 668.0 pg/mL (5.0-100.0) H 06/22/16 19:33 Total Protein 6.8 gm/dL (6.0-8.3) 08/25/16 06:51 Albumin 2.5 gm/dL (4.2-5.5) L 08/25/16 06:51 Globulin 4.3 gm/dL 08/25/16 06:51 Albumin/Globulin Ratio 0.6 (1.0-1.8) L 08/25/16 06:51 Amylase 28 U/L (29-103) L 07/02/16 06:40 Lipase 31 U/L (11-82) 07/02/16 06:40 TSH 2.98 uIU/ml (0.34-5.60) 08/13/16 06:04 Urine Source CLEAN C 06/29/16 05:55 Urine Color YELLOW 06/29/16 05:55 Urine Clarity HAZY (CLEAR) 06/29/16 05:55 Urine pH 5.5 06/29/16 05:55 Ur Specific [place] 1.015 (1.005-1.030) 06/29/16 05:55 Urine Protein 30 mg/dL (NEGATIVE) H 06/29/16 05:55 Urine Glucose (UA) NEGATIVE mg/dL (NEGATIVE) 06/29/16 05:55 Urine Ketones NEGATIVE mg/dL (NEGATIVE) 06/29/16 05:55 Urine Blood NEGATIVE (NEGATIVE) 06/29/16 05:55 Urine Nitrate NEGATIVE (NEGATIVE) 06/29/16 05:55 Urine Bilirubin NEGATIVE (NEGATIVE) 06/29/16 05:55 Urine Urobilinogen 0.2 E.U./dL (0.2 - 1.0) 06/29/16 05:55 Ur Leukocyte Esterase TRACE (NEGATIVE) H 06/29/16 05:55 Urine RBC 0-2 /hpf (0-5) H 06/29/16 05:55 Urine WBC 6-10 /hpf (0-5) H 06/29/16 05:55 Ur Epithelial Cells FEW /lpf (FEW) 06/29/16 05:55 Urine Bacteria MANY /hpf (NONE SEEN) 06/29/16 05:55 Stool Occult Blood POSITIVE (NEGATIVE) 08/17/16 11:00 Stool Leukocyte NO WBC SEEN 08/17/16 11:00 Gentamicin Trough ug/ml (0.2-2.0) 08/12/16 05:19 Random Vancomycin 19.2 ug/mL (5.0-40.0) 08/26/16 07:56 RPR NONREACTIVE (NONREACTIVE) 06/22/16 19:33 Helicobacter pylori Ab NEGATIVE (NEGATIVE) 08/23/16 12:00 Hepatitis A IgM Ab Negative (Negative) 06/29/16 05:49 Hep Bs Antigen Negative (Negative) 06/29/16 05:49 Hep B Core IgM Ab Negative (Negative) 06/29/16 05:49 Hepatitis C Antibody >11.0 s/co ratio (0.0-0.9) H 06/29/16 05:49 Blood Type A POSITIVE 08/10/16 21:07 Antibody Screen NEGATIVE 08/10/16 21:07 Crossmatch See Detail 08/10/16 21:07 - Physical Exam Vitals and I&O: Vital Signs Temp 97.1 F 08/26/16 08:00 Pulse 113 08/26/16 08:52 Resp 20 08/26/16 08:52 BP 133/71 08/26/16 08:00 Pulse Ox 98 08/26/16 08:52 Intake & Output 08/25/16 08/26/16 08/26/16 18:59 06:59 18:59 Intake Total 240 829.667 Balance 240 829.667 Intake: Intake, IV Amount 829.667 Sodium Chloride 0.9% 1, 829.667 000 ml @ 10 mls/hr IV . Q24H [facility] Rx#:[id number] Oral 240 Active Medications: Current Medications Acetaminophen (Tylenol) 650 mg PO Q6H PRN PRN Reason: temperature above 100F Stop: 09/28/16 16:14 Last Admin: 07/30/16 16:27 Dose: 650 mg Calamine/Phenol (Calmoseptine) 1 appl TP QID [facility] Stop: 10/14/16 12:59 Last Admin: 08/26/16 09:35 Dose: 1 appl Diphenhydramine HCl (Benadryl 50 Mg/Ml) 25 mg IVP Q6HR PRN PRN Reason: itching Stop: 10/11/16 03:12 Last Admin: 08/14/16 11:25 Dose: 25 mg Docusate Sodium (Colace) 100 mg PO Q12HR [facility] Stop: 09/16/16 08:59 Last Admin: 08/26/16 09:34 Dose: Not Given Fluconazole (Diflucan) 100 mg PO DAILY [facility] Stop: 10/23/16 08:59 Last Admin: 08/26/16 09:30 Dose: 100 mg Hydrocortisone Sodium Succinate (Solu-Cortef) 50 mg IVP Q8H [facility] Stop: 10/09/16 15:59 Last Admin: 08/26/16 09:30 Dose: 50 mg Sodium Chloride (Nacl 0.9%) 1,000 mls @ 10 mls/hr IV .Q24H [facility] Stop: 10/15/16 15:01 Last Admin: 08/26/16 03:27 Dose: 10 mls/hr Vancomycin HCl 2 gm/ Sodium (Chloride) 500 mls @ 250 mls/hr IV 2100 [facility] Stop: 08/27/16 02:00 Lactobacillus Rhamnosus (Culturelle) 1 each PO DAILY [facility] Stop: 10/12/16 08:59 Last Admin: 08/26/16 09:30 Dose: 1 each Lactulose (Cephulac) 20 gm PO BID [facility] Stop: 10/17/16 08:59 Last Admin: 08/26/16 08:21 Dose: Not Given Levetiracetam (Keppra) 500 mg PO BID [facility] Stop: 10/19/16 16:59 Last Admin: 08/26/16 09:30 Dose: 500 mg Lorazepam (Ativan) 2 mg IVP Q2HR PRN; Protocol PRN Reason: Seizures Stop: 10/19/16 10:06 Metronidazole (Flagyl) 500 mg PO TID [facility] Stop: 08/31/16 21:01 Last Admin: 08/26/16 09:30 Dose: 500 mg Miscellaneous (Clinical Monitoring) 1 ea [facility] DAILY PRN PRN Reason: RENAL Stop: 10/06/16 08:17 Miscellaneous (Probiotic Screen) 1 ea PRN PRN PRN Reason: PROTOCOL Stop: 10/11/16 14:12 Miscellaneous (Vancomycin Iv Per Pharmacy) 1 ea PRN PRN PRN Reason: PROTOCOL Stop: 10/22/16 11:55 Morphine Sulfate (Morphine) 2 mg IV Q4HR PRN PRN Reason: Pain (Moderate) Stop: 10/15/16 13:36 Last Admin: 08/26/16 09:30 Dose: 2 mg Pantoprazole Sodium (Protonix) 40 mg IVP BID [facility] Stop: 10/19/16 16:59 Last Admin: 08/26/16 09:30 Dose: 40 mg Sodium Bicarbonate (Sodium Bicarb) 50 meq IVP BID [facility] Stop: 10/13/16 16:59 Last Admin: 08/26/16 09:34 Dose: 50 meq - Procedures Procedures: Procedures Procedure Code Date ARTERY-VEIN NONAUTOGRAFT 97148 06/22/16 BLOOD TRANSFUSION SERVICE 24773 06/22/16 BYPASS L BRACH ART TO UP ARM VEIN W NONAUT SUB, OPEN [id number] 06/22/16 FLUOROSCOPY OF SUP VENA CAVA USING [facility] CONTRAST, GUIDANCE [id number] 06/22/16 INSERTION OF INFUSION DEV INTO SUP VENA CAVA, PERC APPROACH [id number] 06/22/16 PLACE CATHETER IN VEIN 02188 06/22/16 TRANSFUSE NONAUT RED BLOOD CELLS IN PERIPH VEIN, PERC [id number] 06/22/16 Assessment/Plan - Problem List Patient Problems: All Active Problems Anemia (Acute) D64.9 ESRD (end stage renal disease) (Acute) ESRD (end stage renal disease) on dialysis (Acute) N18.6, Z99.2 ESRD (end stage renal disease) on dialysis (Acute) N18.6, Z99.2 HYPOTENSION (Acute) HYPOXEMIA (Acute) MEDICAL EVALUATION PER DR FRY (Acute) funtional quadriperisis (Acute) septic shock (Acute) - Assessment Assessment: 1. Cellulitis of legs. 2. Lymphedema of legs. 3. CKD 5 on HD. 4. Morbid obesity. 5 anemia 6 gi bleed 7 psychosis - Plan Plan: dialysis iv antibiotics ltac eval tele status snif plan
--- NOTE | 2016-08-26 13:50 | General Progress Note ---
Subjective - Review of Systems Service Date: 08/26/16 Subjective: awake, on NC Objective - Results Result Diagrams: 08/25/16 06:51 08/25/16 06:51 Recent Labs: Laboratory Last Values WBC 11.9 Th/cmm (4.8-10.8) H D 08/25/16 06:51 RBC 3.38 Mil/cmm (4.30-5.70) L 08/25/16 06:51 Hgb 9.4 gm/dL (13.2-17.3) L 08/25/16 06:51 Hct 28.3 % (39.0-49.0) L 08/25/16 06:51 MCV 83.7 fl (80-99) 08/25/16 06:51 MCH 27.9 pg (26.0-30.0) 08/25/16 06:51 MCHC Differential 33.4 pg (28.0-36.0) 04 06:51 RDW 15.8 % (11.5-20.0) 08/25/16 06:51 Plt Count 76 Th/cmm (150-400) L 08/25/16 06:51 MPV 9.4 fl 08/25/16 06:51 Neutrophils % 56.8 % (40.0-80.0) 07/07/16 06:00 Band Neutrophils % 1 % (0-10) 08/24/16 09:45 Lymphocytes % 18.4 % (20.0-50.0) L 07/07/16 06:00 Monocytes % 13.8 % (2.0-10.0) H 07/07/16 06:00 Eosinophils % 11.0 % (0.0-5.0) H 07/07/16 06:00 Basophils % 0.0 % (0.0-2.0) 07/07/16 06:00 Neutrophils (Manual) 93 % (40-80) H 08/25/16 06:51 Lymphocytes 4 % (20-50) L 08/25/16 06:51 Monocytes 3 % (2-10) 08/25/16 06:51 Eosinophils 1 % (0-5) 08/18/16 05:18 Basophils 3 % (0-3) 08/04/16 08:33 Metamyelocytes 1 % (0-0) H 08/14/16 07:40 Myelocytes 1 % 07/14/16 16:00 Nucleated RBCs 1.0 % (0-0) H 08/15/16 09:30 Hypochromia 1+ 07/20/16 23:30 Platelet Estimate DECREASED PLATELETS (NORMAL) 08/25/16 06:51 Platelet Morphology NORMAL (NORMAL) 08/25/16 06:51 Polychromasia 1+ 07/20/16 23:30 Anisocytosis 1+ 08/25/16 06:51 Microcytosis 1+ 07/14/16 16:00 RBC Morph Micro Appear ABNORMAL (NORMAL) 08/25/16 06:51 PT 15.4 SECONDS (9.5-11.5) H 08/23/16 04:35 INR 1.45 (0.5-1.4) H 08/23/16 04:35 PTT (Actin FS) 37.7 SECONDS (26.0-38.0) 08/17/16 07:20 Specimen Source Arterial 08/20/16 08:15 Sample Site Right Radial 08/20/16 08:15 pH 7.33 (7.35-7.45) L 08/20/16 08:15 pCO2 55.0 mmHg (35.0-45.0) H 08/20/16 08:15 pO2 92.0 mmHg (80.0-100.0) 08/20/16 08:15 HCO3 26.5 mEq/L (20.0-26.0) H 08/20/16 08:15 Base Excess 2.0 mEq/L (-3.0-3.0) 08/20/16 08:15 O2 Saturation 97.0 % (92.0-100.0) 08/20/16 08:15 Estuardo Test POSITIVE 08/20/16 08:15 Vent Rate NA 08/20/16 08:15 Inspired O2 32 08/20/16 08:15 Tidal Volume NA 08/20/16 08:15 PEEP NA 08/20/16 08:15 Pressure (ins/psv/peep) NA 08/20/16 08:15 Critical Value CSILVA 08/20/16 08:15 Sodium 133 mEq/L (136-145) L 08/25/16 06:51 Potassium 3.8 mEq/L (3.5-5.1) 08/25/16 06:51 Chloride 101 mEq/L (98-107) 08/25/16 06:51 Carbon Dioxide 24.8 mEq/L (21.0-31.0) 08/25/16 06:51 Anion Gap 11.0 (7.0-16.0) 08/25/16 06:51 BUN 77 mg/dL (7-25) H 08/25/16 06:51 Creatinine 5.4 mg/dL (0.7-1.3) H* 08/25/16 06:51 Est GFR ( Amer) 14.6 ml/min (>90) 08/25/16 06:51 Est GFR (Non-Af Amer) 12.1 ml/min 08/25/16 06:51 BUN/Creatinine Ratio 14.3 08/25/16 06:51 Glucose 134 mg/dL (70-105) H 08/25/16 06:51 POC Glucose 111 MG/DL (70 - 105) H 08/15/16 08:03 Hemoglobin A1c % 4.8 % (4.0-6.0) 08/13/16 06:04 Whole Bld Lactic Acid 1.54 mmol/L (0.60-1.99) 08/13/16 06:04 Calcium 8.4 mg/dL (8.6-10.3) L 08/25/16 06:51 Phosphorus 5.5 mg/dL (2.5-5.0) H 07/19/16 09:50 Magnesium 1.9 mg/dL (1.9-2.7) 08/04/16 05:45 Iron 42 ug/dL (38-169) 06/28/16 04:38 TIBC 269 ug/dL (250-450) 06/28/16 04:38 Iron Saturation 16 % (15-55) 06/28/16 04:38 Unsaturated IBC 227 ug/dL (111-343) 06/28/16 04:38 Ferritin 150 ng/mL (30-400) 06/26/16 08:30 Total Bilirubin 0.9 mg/dL (0.3-1.0) 08/25/16 06:51 Direct Bilirubin 0.70 mg/dL (0.0-0.2) H 06/28/16 04:38 GGTP 14 IU/L (0-65) 06/28/16 04:38 AST 9 U/L (13-39) L 08/25/16 06:51 ALT 7 U/L (7-52) 08/25/16 06:51 Alkaline Phosphatase 31 U/L (34-104) L 08/25/16 06:51 Ammonia 73 umol/L (16-53) H 08/12/16 05:19 Troponin I < 0.01 ng/mL (0.01-0.05) L 06/22/16 19:33 B-Natriuretic Peptide 668.0 pg/mL (5.0-100.0) H 06/22/16 19:33 Total Protein 6.8 gm/dL (6.0-8.3) 08/25/16 06:51 Albumin 2.5 gm/dL (4.2-5.5) L 08/25/16 06:51 Globulin 4.3 gm/dL 08/25/16 06:51 Albumin/Globulin Ratio 0.6 (1.0-1.8) L 08/25/16 06:51 Amylase 28 U/L (29-103) L 07/02/16 06:40 Lipase 31 U/L (11-82) 07/02/16 06:40 TSH 2.98 uIU/ml (0.34-5.60) 08/13/16 06:04 Urine Source CLEAN C 06/29/16 05:55 Urine Color YELLOW 06/29/16 05:55 Urine Clarity HAZY (CLEAR) 06/29/16 05:55 Urine pH 5.5 06/29/16 05:55 Ur Specific [place] 1.015 (1.005-1.030) 06/29/16 05:55 Urine Protein 30 mg/dL (NEGATIVE) H 06/29/16 05:55 Urine Glucose (UA) NEGATIVE mg/dL (NEGATIVE) 06/29/16 05:55 Urine Ketones NEGATIVE mg/dL (NEGATIVE) 06/29/16 05:55 Urine Blood NEGATIVE (NEGATIVE) 06/29/16 05:55 Urine Nitrate NEGATIVE (NEGATIVE) 06/29/16 05:55 Urine Bilirubin NEGATIVE (NEGATIVE) 06/29/16 05:55 Urine Urobilinogen 0.2 E.U./dL (0.2 - 1.0) 06/29/16 05:55 Ur Leukocyte Esterase TRACE (NEGATIVE) H 06/29/16 05:55 Urine RBC 0-2 /hpf (0-5) H 06/29/16 05:55 Urine WBC 6-10 /hpf (0-5) H 06/29/16 05:55 Ur Epithelial Cells FEW /lpf (FEW) 06/29/16 05:55 Urine Bacteria MANY /hpf (NONE SEEN) 06/29/16 05:55 Stool Occult Blood POSITIVE (NEGATIVE) 08/17/16 11:00 Stool Leukocyte NO WBC SEEN 08/17/16 11:00 Gentamicin Trough ug/ml (0.2-2.0) 08/12/16 05:19 Random Vancomycin 19.2 ug/mL (5.0-40.0) 08/26/16 07:56 RPR NONREACTIVE (NONREACTIVE) 06/22/16 19:33 Helicobacter pylori Ab NEGATIVE (NEGATIVE) 08/23/16 12:00 Hepatitis A IgM Ab Negative (Negative) 06/29/16 05:49 Hep Bs Antigen Negative (Negative) 06/29/16 05:49 Hep B Core IgM Ab Negative (Negative) 06/29/16 05:49 Hepatitis C Antibody >11.0 s/co ratio (0.0-0.9) H 06/29/16 05:49 Blood Type A POSITIVE 08/10/16 21:07 Antibody Screen NEGATIVE 08/10/16 21:07 Crossmatch See Detail 08/10/16 21:07 - Physical Exam Vitals and I&O: Vital Signs Temp 97.1 F 08/26/16 08:00 Pulse 113 08/26/16 08:52 Resp 20 08/26/16 08:52 BP 133/71 08/26/16 08:00 Pulse Ox 98 08/26/16 08:52 Intake & Output 08/25/16 08/26/16 08/26/16 18:59 06:59 18:59 Intake Total 240 829.667 Balance 240 829.667 Intake: Intake, IV Amount 829.667 Sodium Chloride 0.9% 1, 829.667 000 ml @ 10 mls/hr IV . Q24H [facility] Rx#:[id number] Oral 240 Active Medications: Current Medications Acetaminophen (Tylenol) 650 mg PO Q6H PRN PRN Reason: temperature above 100F Stop: 09/28/16 16:14 Last Admin: 07/30/16 16:27 Dose: 650 mg Calamine/Phenol (Calmoseptine) 1 appl TP QID [facility] Stop: 10/14/16 12:59 Last Admin: 08/26/16 09:35 Dose: 1 appl Diphenhydramine HCl (Benadryl 50 Mg/Ml) 25 mg IVP Q6HR PRN PRN Reason: itching Stop: 10/11/16 03:12 Last Admin: 08/14/16 11:25 Dose: 25 mg Docusate Sodium (Colace) 100 mg PO Q12HR [facility] Stop: 09/16/16 08:59 Last Admin: 08/26/16 09:34 Dose: Not Given Fluconazole (Diflucan) 100 mg PO DAILY [facility] Stop: 10/23/16 08:59 Last Admin: 08/26/16 09:30 Dose: 100 mg Hydrocortisone Sodium Succinate (Solu-Cortef) 50 mg IVP Q8H [facility] Stop: 10/09/16 15:59 Last Admin: 08/26/16 09:30 Dose: 50 mg Sodium Chloride (Nacl 0.9%) 1,000 mls @ 10 mls/hr IV .Q24H [facility] Stop: 10/15/16 15:01 Last Admin: 08/26/16 03:27 Dose: 10 mls/hr Vancomycin HCl 2 gm/ Sodium (Chloride) 500 mls @ 250 mls/hr IV 2100 [facility] Stop: 08/27/16 02:00 Lactobacillus Rhamnosus (Culturelle) 1 each PO DAILY [facility] Stop: 10/12/16 08:59 Last Admin: 08/26/16 09:30 Dose: 1 each Lactulose (Cephulac) 20 gm PO BID [facility] Stop: 10/17/16 08:59 Last Admin: 08/26/16 08:21 Dose: Not Given Levetiracetam (Keppra) 500 mg PO BID [facility] Stop: 10/19/16 16:59 Last Admin: 08/26/16 09:30 Dose: 500 mg Lorazepam (Ativan) 2 mg IVP Q2HR PRN; Protocol PRN Reason: Seizures Stop: 10/19/16 10:06 Metronidazole (Flagyl) 500 mg PO TID [facility] Stop: 08/31/16 21:01 Last Admin: 08/26/16 09:30 Dose: 500 mg Miscellaneous (Clinical Monitoring) 1 ea [facility] DAILY PRN PRN Reason: RENAL Stop: 10/06/16 08:17 Miscellaneous (Probiotic Screen) 1 [facility] PRN PRN PRN Reason: PROTOCOL Stop: 10/11/16 14:12 Miscellaneous (Vancomycin Iv Per Pharmacy) 1 [facility] PRN PRN PRN Reason: PROTOCOL Stop: 10/22/16 11:55 Morphine Sulfate (Morphine) 2 mg IV Q4HR PRN PRN Reason: Pain (Moderate) Stop: 10/15/16 13:36 Last Admin: 08/26/16 09:30 Dose: 2 mg Pantoprazole Sodium (Protonix) 40 mg IVP BID [facility] Stop: 10/19/16 16:59 Last Admin: 08/26/16 09:30 Dose: 40 mg Sodium Bicarbonate (Sodium Bicarb) 50 meq IVP BID [facility] Stop: 10/13/16 16:59 Last Admin: 08/26/16 09:34 Dose: 50 meq General: Alert, No acute distress HEENT: Atraumatic, Mucous membr. moist/pink Neck: Supple, +2 carotid pulse wo bruit Cardiovascular: Regular rate, Normal S1, Normal S2 Lungs: Other (few rhonchi) Abdomen: Bowel sounds, Soft Extremities: Edema ((+) 3 bipedal edema) Neurological: Sensation intact Skin: no Rash - Procedures Procedures: Procedures Procedure Code Date ARTERY-VEIN NONAUTOGRAFT 92317 06/22/16 BLOOD TRANSFUSION SERVICE 97822 06/22/16 BYPASS L BRACH ART TO UP ARM VEIN W NONAUT SUB, OPEN [id number] 06/22/16 FLUOROSCOPY OF SUP VENA CAVA USING [facility] CONTRAST, GUIDANCE [id number] 06/22/16 INSERTION OF INFUSION DEV INTO SUP VENA CAVA, PERC APPROACH [id number] 06/22/[address] PL[address] CATHETER IN VEIN 91572 06/22/16 TRANSFUSE NONAUT RED BLOOD CELLS IN PERIPH VEIN, PERC [id number] 06/22/16 Assessment/Plan - Problem List Patient Problems: All Active Problems Anemia (Acute) D64.9 ESRD (end stage renal disease) (Acute) ESRD (end stage renal disease) on dialysis (Acute) N18.6, Z99.2 ESRD (end stage renal disease) on dialysis (Acute) N18.6, Z99.2 HYPOTENSION (Acute) HYPOXEMIA (Acute) MEDICAL EVALUATION PER DR FRY (Acute) funtional quadriperisis (Acute) septic shock (Acute) - Assessment Assessment: septic shock (better) esrd on hd persistent cellulitis b/l lower ext acute on chronic anemia possible gi bleed ohs chronic a. fib hypothyroid anasarca functional quadriplegia chronic venous stasis dermatitis acute decomp psychosis s/p left avg G (+) cocci in clusters septicemia new onset seizure activity Candidal Esophagitis, Antral gastritis - Plan Plan: Lab - Result Diagrams 07/19/16 09:50 Lab - Result Diagrams 07/22/16 05:21 Lab - Result Diagrams 07/24/16 05:00 Lab - Result Diagrams Lab - Result Diagrams 08/04/16 08:33 Lab - Result Diagrams 08/05/16 05:00 08/04/16 05:45 08/04/16 05:45 07/28/16 05:30 07/28/16 05:30 07/24/16 05:00 07/20/16 05:50 07/19/16 09:50 latest hgb/hct were 9.4/28.3 culture grew G (+) cocci, WBC down to 11.9 continue ABx transfuse as necessary f/u electrolytes, cbc new right Anton cath new onset seiure activity dialyzed yesterday & tolerated it well Lab - Result Diagrams 07/19/16 09:50 07/20/16 05:50 Lab - Result Diagrams 07/21/16 06:16 07/20/16 05:50 Lab - Result Diagrams 07/26/16 11:05 07/24/16 05:00 Lab - Result Diagrams 07/29/16 05:55 07/28/16 05:30 Lab - Result Diagrams 08/12/16 05:19 08/12/16 05:19 Lab - Result Diagrams 08/17/16 07:20 08/17/16 07:20 Lab - Result Diagrams 08/25/16 06:51 08/25/16 06:51
--- NOTE | 2016-08-26 15:02 | Infectious Disease Prog Note ---
Infectious Disease Subjective - Review of Systems Service Date: 08/26/16 Subjective: There is no new change. There is no fever. Infectious Disease Objective - Results Result Diagrams: 08/25/16 06:51 08/25/16 06:51 Recent Labs: Laboratory Last Values WBC 11.9 Th/cmm (4.8-10.8) H D 08/25/16 06:51 RBC 3.38 Mil/cmm (4.30-5.70) L 08/25/16 06:51 Hgb 9.4 gm/dL (13.2-17.3) L 08/25/16 06:51 Hct 28.3 % (39.0-49.0) L 08/25/16 06:51 MCV 83.7 fl (80-99) 08/25/16 06:51 MCH 27.9 pg (26.0-30.0) 08/25/16 06:51 MCHC Differential 33.4 pg (28.0-36.0) 08/25/16 06:51 RDW 15.8 % (11.5-20.0) 08/25/16 06:51 Plt Count 76 Th/cmm (150-400) L 08/25/16 06:51 MPV 9.4 fl 08/25/16 06:51 Neutrophils % 56.8 % (40.0-80.0) 07/07/16 06:00 Band Neutrophils % 1 % (0-10) 08/24/16 09:45 Lymphocytes % 18.4 % (20.0-50.0) L 07/07/16 06:00 Monocytes % 13.8 % (2.0-10.0) H 07/07/16 06:00 Eosinophils % 11.0 % (0.0-5.0) H 07/07/16 06:00 Basophils % 0.0 % (0.0-2.0) 07/07/16 06:00 Neutrophils (Manual) 93 % (40-80) H 08/25/16 06:51 Lymphocytes 4 % (20-50) L 08/25/16 06:51 Monocytes 3 % (2-10) 08/25/16 06:51 Eosinophils 1 % (0-5) 08/18/16 05:18 Basophils 3 % (0-3) 08/04/16 08:33 Metamyelocytes 1 % (0-0) H 08/14/16 07:40 Myelocytes 1 % 07/14/16 16:00 Nucleated RBCs 1.0 % (0-0) H 08/15/16 09:30 Hypochromia 1+ 07/20/16 23:30 Platelet Estimate DECREASED PLATELETS (NORMAL) 08/25/16 06:51 Platelet Morphology NORMAL (NORMAL) 08/25/16 06:51 Polychromasia 1+ 07/20/16 23:30 Anisocytosis 1+ 08/25/16 06:51 Microcytosis 1+ 07/14/16 16:00 RBC Morph Micro Appear ABNORMAL (NORMAL) 08/25/16 06:51 PT 15.4 SECONDS (9.5-11.5) H 08/23/16 04:35 INR 1.45 (0.5-1.4) H 08/23/16 04:35 PTT (Actin FS) 37.7 SECONDS (26.0-38.0) 08/17/16 07:20 Specimen Source Arterial 08/20/16 08:15 Sample Site Right Radial 08/20/16 08:15 pH 7.33 (7.35-7.45) L 08/20/16 08:15 pCO2 55.0 mmHg (35.0-45.0) H 08/20/16 08:15 pO2 92.0 mmHg (80.0-100.0) 08/20/16 08:15 HCO3 26.5 mEq/L (20.0-26.0) H 08/20/16 08:15 Base Excess 2.0 mEq/L (-3.0-3.0) 08/20/16 08:15 O2 Saturation 97.0 % (92.0-100.0) 08/20/16 08:15 Estuardo Test POSITIVE 08/20/16 08:15 Vent Rate NA 08/20/16 08:15 Inspired O2 32 08/20/16 08:15 Tidal Volume NA 08/20/16 08:15 PEEP NA 08/20/16 08:15 Pressure (ins/psv/peep) NA 08/20/16 08:15 Critical Value CSILVA 08/20/16 08:15 Sodium 133 mEq/L (136-145) L 08/25/16 06:51 Potassium 3.8 mEq/L (3.5-5.1) 08/25/16 06:51 Chloride 101 mEq/L (98-107) 08/25/16 06:51 Carbon Dioxide 24.8 mEq/L (21.0-31.0) 08/25/16 06:51 Anion Gap 11.0 (7.0-16.0) 08/25/16 06:51 BUN 77 mg/dL (7-25) H 08/25/16 06:51 Creatinine 5.4 mg/dL (0.7-1.3) H* 08/25/16 06:51 Est GFR ( Amer) 14.6 ml/min (>90) 08/25/16 06:51 Est GFR (Non-Af Amer) 12.1 ml/min 08/25/16 06:51 BUN/Creatinine Ratio 14.3 08/25/16 06:51 Glucose 134 mg/dL (70-105) H 08/25/16 06:51 POC Glucose 111 MG/DL (70 - 105) H 08/15/16 08:03 Hemoglobin A1c % 4.8 % (4.0-6.0) 08/13/16 06:04 Whole Bld Lactic Acid 1.54 mmol/L (0.60-1.99) 08/13/16 06:04 Calcium 8.4 mg/dL (8.6-10.3) L 08/25/16 06:51 Phosphorus 5.5 mg/dL (2.5-5.0) H 07/19/16 09:50 Magnesium 1.9 mg/dL (1.9-2.7) 08/04/16 05:45 Iron 42 ug/dL (38-169) 06/28/16 04:38 TIBC 269 ug/dL (250-450) 06/28/16 04:38 Iron Saturation 16 % (15-55) 06/28/16 04:38 Unsaturated IBC 227 ug/dL (111-343) 06/28/16 04:38 Ferritin 150 ng/mL (30-400) 06/26/16 08:30 Total Bilirubin 0.9 mg/dL (0.3-1.0) 08/25/16 06:51 Direct Bilirubin 0.70 mg/dL (0.0-0.2) H 06/28/16 04:38 GGTP 14 IU/L (0-65) 06/28/16 04:38 AST 9 U/L (13-39) L 08/25/16 06:51 ALT 7 U/L (7-52) 08/25/16 06:51 Alkaline Phosphatase 31 U/L (34-104) L 08/25/16 06:51 Ammonia 73 umol/L (16-53) H 08/12/16 05:19 Troponin I < 0.01 ng/mL (0.01-0.05) L 06/22/16 19:33 B-Natriuretic Peptide 668.0 pg/mL (5.0-100.0) H 06/22/16 19:33 Total Protein 6.8 gm/dL (6.0-8.3) 08/25/16 06:51 Albumin 2.5 gm/dL (4.2-5.5) L 08/25/16 06:51 Globulin 4.3 gm/dL 08/25/16 06:51 Albumin/Globulin Ratio 0.6 (1.0-1.8) L 08/25/16 06:51 Amylase 28 U/L (29-103) L 07/02/16 06:40 Lipase 31 U/L (11-82) 07/02/16 06:40 TSH 2.98 uIU/ml (0.34-5.60) 08/13/16 06:04 Urine Source CLEAN C 06/29/16 05:55 Urine Color YELLOW 06/29/16 05:55 Urine Clarity HAZY (CLEAR) 06/29/16 05:55 Urine pH 5.5 06/29/16 05:55 Ur Specific [place] 1.015 (1.005-1.030) 06/29/16 05:55 Urine Protein 30 mg/dL (NEGATIVE) H 06/29/16 05:55 Urine Glucose (UA) NEGATIVE mg/dL (NEGATIVE) 06/29/16 05:55 Urine Ketones NEGATIVE mg/dL (NEGATIVE) 06/29/16 05:55 Urine Blood NEGATIVE (NEGATIVE) 06/29/16 05:55 Urine Nitrate NEGATIVE (NEGATIVE) 06/29/16 05:55 Urine Bilirubin NEGATIVE (NEGATIVE) 06/29/16 05:55 Urine Urobilinogen 0.2 E.U./dL (0.2 - 1.0) 06/29/16 05:55 Ur Leukocyte Esterase TRACE (NEGATIVE) H 06/29/16 05:55 Urine RBC 0-2 /hpf (0-5) H 06/29/16 05:55 Urine WBC 6-10 /hpf (0-5) H 06/29/16 05:55 Ur Epithelial Cells FEW /lpf (FEW) 06/29/16 05:55 Urine Bacteria MANY /hpf (NONE SEEN) 06/29/16 05:55 Stool Occult Blood POSITIVE (NEGATIVE) 08/17/16 11:00 Stool Leukocyte NO WBC SEEN 08/17/16 11:00 Gentamicin Trough ug/ml (0.2-2.0) 08/12/16 05:19 Random Vancomycin 19.2 ug/mL (5.0-40.0) 08/26/16 07:56 RPR NONREACTIVE (NONREACTIVE) 06/22/16 19:33 Helicobacter pylori Ab NEGATIVE (NEGATIVE) 08/23/16 12:00 Hepatitis A IgM Ab Negative (Negative) 06/29/16 05:49 Hep Bs Antigen Negative (Negative) 06/29/16 05:49 Hep B Core IgM Ab Negative (Negative) 06/29/16 05:49 Hepatitis C Antibody >11.0 s/co ratio (0.0-0.9) H 06/29/16 05:49 Blood Type A POSITIVE 08/10/16 21:07 Antibody Screen NEGATIVE 08/10/16 21:07 Crossmatch See Detail 08/10/16 21:07 - Physical Exam Vitals and I&O: Vital Signs Temp 97.1 F 08/26/16 08:00 Pulse 113 08/26/16 08:52 Resp 20 08/26/16 08:52 BP 133/71 08/26/16 08:00 Pulse Ox 98 08/26/16 08:52 Intake & Output 08/25/16 08/26/16 08/26/16 18:59 06:59 18:59 Intake Total 240 829.667 Balance 240 829.667 Intake: Intake, IV Amount 829.667 Sodium Chloride 0.9% 1, 829.667 000 ml @ 10 mls/hr IV . Q24H [facility] Rx#:[id number] Oral 240 Active Medications: Current Medications Acetaminophen (Tylenol) 650 mg PO Q6H PRN PRN Reason: temperature above 100F Stop: 09/28/16 16:14 Last Admin: 07/30/16 16:27 Dose: 650 mg Calamine/Phenol (Calmoseptine) 1 appl TP QID [facility] Stop: 10/14/16 12:59 Last Admin: 08/26/16 09:35 Dose: 1 appl Diphenhydramine HCl (Benadryl 50 Mg/Ml) 25 mg IVP Q6HR PRN PRN Reason: itching Stop: 10/11/16 03:12 Last Admin: 08/14/16 11:25 Dose: 25 mg Docusate Sodium (Colace) 100 mg PO Q12HR [facility] Stop: 09/16/16 08:59 Last Admin: 08/26/16 09:34 Dose: Not Given Fluconazole (Diflucan) 100 mg PO DAILY [facility] Stop: 10/23/16 08:59 Last Admin: 08/26/16 09:30 Dose: 100 mg Hydrocortisone Sodium Succinate (Solu-Cortef) 50 mg IVP Q8H [facility] Stop: 10/09/16 15:59 Last Admin: 08/26/16 09:30 Dose: 50 mg Sodium Chloride (Nacl 0.9%) 1,000 mls @ 10 mls/hr IV .Q24H [facility] Stop: 10/15/16 15:01 Last Admin: 08/26/16 03:27 Dose: 10 mls/hr Vancomycin HCl 2 gm/ Sodium (Chloride) 500 mls @ 250 mls/hr IV 2100 [facility] Stop: 08/27/16 02:00 Lactobacillus Rhamnosus (Culturelle) 1 each PO DAILY [facility] Stop: 10/12/16 08:59 Last Admin: 08/26/16 09:30 Dose: 1 each Lactulose (Cephulac) 20 gm PO BID [facility] Stop: 10/17/16 08:59 Last Admin: 08/26/16 08:21 Dose: Not Given Levetiracetam (Keppra) 500 mg PO BID [facility] Stop: 10/19/16 16:59 Last Admin: 08/26/16 09:30 Dose: 500 mg Lorazepam (Ativan) 2 mg IVP Q2HR PRN; Protocol PRN Reason: Seizures Stop: 10/19/16 10:06 Metronidazole (Flagyl) 500 mg PO TID [facility] Stop: 08/31/16 21:01 Last Admin: 08/26/16 14:40 Dose: 500 mg Miscellaneous (Clinical Monitoring) 1 ea MC DAILY PRN PRN Reason: RENAL Stop: 10/06/16 08:17 Miscellaneous (Probiotic Screen) 1 ea MC PRN PRN PRN Reason: PROTOCOL Stop: 10/11/16 14:12 Miscellaneous (Vancomycin Iv Per Pharmacy) 1 ea MC PRN PRN PRN Reason: PROTOCOL Stop: 10/22/16 11:55 Morphine Sulfate (Morphine) 2 mg IV Q4HR PRN PRN Reason: Pain (Moderate) Stop: 10/15/16 13:36 Last Admin: 08/26/16 09:30 Dose: 2 mg Pantoprazole Sodium (Protonix) 40 mg IVP BID [facility] Stop: 10/19/16 16:59 Last Admin: 08/26/16 09:30 Dose: 40 mg Sodium Bicarbonate (Sodium Bicarb) 50 meq IVP BID [facility] Stop: 10/13/16 16:59 Last Admin: 08/26/16 09:34 Dose: 50 meq General: no acute distress, other (obesity) HEENT: atraumatic, normocephalic, PERRLA, EOMI Neck: supple Cardiovascular: S1S2, regular Lungs: clear to auscultation bilaterally, clear to percussion Abdomen: soft, no tender, no distended, no mass Extremities: no cyanosis, no clubbing, no edema Neurological: awake, alert, oriented, CN 2-12 intact - Procedures Procedures: Procedures Procedure Code Date ARTERY-VEIN NONAUTOGRAFT 86669 06/22/16 BLOOD TRANSFUSION SERVICE 16066 06/22/16 BYPASS L BRACH ART TO UP ARM VEIN W NONAUT SUB, OPEN [id number] 06/22/16 FLUOROSCOPY OF SUP VENA CAVA USING [facility] CONTRAST, GUIDANCE [id number] 06/22/16 INSERTION OF INFUSION DEV INTO SUP VENA CAVA, PERC APPROACH [id number] 06/22/[address] PL[address] CATHETER IN VEIN 78751 06/22/16 TRANSFUSE NONAUT RED BLOOD CELLS IN PERIPH VEIN, PERC [id number] 06/22/16 Infectious Disease Assmt/Plan - Problem List Patient Problems: All Active Problems Anemia (Acute) D64.9 ESRD (end stage renal disease) (Acute) ESRD (end stage renal disease) on dialysis (Acute) N18.6, Z99.2 ESRD (end stage renal disease) on dialysis (Acute) N18.6, Z99.2 HYPOTENSION (Acute) HYPOXEMIA (Acute) MEDICAL EVALUATION PER DR FRY (Acute) funtional quadriperisis (Acute) septic shock (Acute) - Assessment Assessment: 1. Septic shock. resolved. likely line sepsis. MRSA sepsis. 3/4 positive. 2. Pneumonia. 3. CKD 5 on HD. 4. Morbid obesity. 5. hep C. 6. Cellulitis of legs. improved. treated. 7. Lymphedema of legs. 8. CHF. 9. CDAC. 10. Maria C esophagitis. - Plan Plan: Continue vanco IV and flagyl. Contnue Diflucan.
[2016-08-27] MEDS: Hydrocortisone Sodium Succ 100 mg Vial IVP SCH ×3 (00:38→17:07)
--- NOTE | 2016-08-27 02:23 | Progress Notes ---
SUBJECTIVE: The patient is awake, alert, sitting up in bed, playing with internet. The patient is awake and alert, no more repeat seizures. The patient is moving upper extremity quite well, able to lift the lower extremity but weak. MEDICATIONS: Keppra 500 b.i.d. and lorazepam p.r.n. OBJECTIVE: VITAL SIGNS: Temperature 97.7, blood pressure 104/65 and pulse is 102. NECK: Supple. No bruits. CARDIOVASCULAR: Heart sounds S1, S2. RESPIRATORY: Lungs clear. ABDOMEN: Soft. NEUROLOGIC: The patient awake and alert and will answer questions. Speech normal. ____ pupils react to light. EXTREMITIES: Extremity strength is about 4/5 to 4+. Legs are about 3 to 3+. Reflexes in the upper extremities is minus. I could not get anything in the lower extremities. ASSESSMENT: 1. Seizure. Stable. On Keppra. 2. Hypertension. 3. Septic shock. 4. Sepsis with septicemia. 5. End-stage renal disease. 6. Hypothyroidism. 7. History of psychosis. PLAN: Continue Keppra. JOB# [id number]
[2016-08-27] MEDS: Lactulose 10 Gm/15 mL 30mL UDC PO SCH ×3 (08:28→17:08)
[2016-08-27] MEDS: Sodium Bicarbonate 8.4% 50mEq PFS IVP SCH ×2 (08:29→17:08)
[2016-08-27] MEDS: Menthol/Zinc Oxide Oint 113gm Tube TP SCH ×3 (08:30→17:10)
[2016-08-27] MEDS: Venelex 60gm Tube TP SCH (08:32)
[2016-08-27] MEDS: Lactobacillus Rhamnosus 10 Billion CFU Capsule PO SCH (08:44)
--- NOTE | 2016-08-27 13:00 | General Progress Note ---
Subjective - Review of Systems Service Date: 08/27/16 Subjective: awake, on NC Objective - Results Result Diagrams: 08/25/16 06:51 08/25/16 06:51 Recent Labs: Laboratory Last Values WBC 11.9 Th/cmm (4.8-10.8) H D 08/25/16 06:51 RBC 3.38 Mil/cmm (4.30-5.70) L 08/25/16 06:51 Hgb 9.4 gm/dL (13.2-17.3) L 08/25/16 06:51 Hct 28.3 % (39.0-49.0) L 08/25/16 06:51 MCV 83.7 fl (80-99) 08/25/16 06:51 MCH 27.9 pg (26.0-30.0) 08/25/16 06:51 MCHC Differential 33.4 pg (28.0-36.0) 04 06:51 RDW 15.8 % (11.5-20.0) 08/25/16 06:51 Plt Count 76 Th/cmm (150-400) L 08/25/16 06:51 MPV 9.4 fl 08/25/16 06:51 Neutrophils % 56.8 % (40.0-80.0) 07/07/16 06:00 Band Neutrophils % 1 % (0-10) 08/24/16 09:45 Lymphocytes % 18.4 % (20.0-50.0) L 07/07/16 06:00 Monocytes % 13.8 % (2.0-10.0) H 07/07/16 06:00 Eosinophils % 11.0 % (0.0-5.0) H 07/07/16 06:00 Basophils % 0.0 % (0.0-2.0) 07/07/16 06:00 Neutrophils (Manual) 93 % (40-80) H 08/25/16 06:51 Lymphocytes 4 % (20-50) L 08/25/16 06:51 Monocytes 3 % (2-10) 08/25/16 06:51 Eosinophils 1 % (0-5) 08/18/16 05:18 Basophils 3 % (0-3) 08/04/16 08:33 Metamyelocytes 1 % (0-0) H 08/14/16 07:40 Myelocytes 1 % 07/14/16 16:00 Nucleated RBCs 1.0 % (0-0) H 08/15/16 09:30 Hypochromia 1+ 07/20/16 23:30 Platelet Estimate DECREASED PLATELETS (NORMAL) 08/25/16 06:51 Platelet Morphology NORMAL (NORMAL) 08/25/16 06:51 Polychromasia 1+ 07/20/16 23:30 Anisocytosis 1+ 08/25/16 06:51 Microcytosis 1+ 07/14/16 16:00 RBC Morph Micro Appear ABNORMAL (NORMAL) 08/25/16 06:51 PT 15.4 SECONDS (9.5-11.5) H 08/23/16 04:35 INR 1.45 (0.5-1.4) H 08/23/16 04:35 PTT (Actin FS) 37.7 SECONDS (26.0-38.0) 08/17/16 07:20 Specimen Source Arterial 08/20/16 08:15 Sample Site Right Radial 08/20/16 08:15 pH 7.33 (7.35-7.45) L 08/20/16 08:15 pCO2 55.0 mmHg (35.0-45.0) H 08/20/16 08:15 pO2 92.0 mmHg (80.0-100.0) 08/20/16 08:15 HCO3 26.5 mEq/L (20.0-26.0) H 08/20/16 08:15 Base Excess 2.0 mEq/L (-3.0-3.0) 08/20/16 08:15 O2 Saturation 97.0 % (92.0-100.0) 08/20/16 08:15 Estuardo Test POSITIVE 08/20/16 08:15 Vent Rate NA 08/20/16 08:15 Inspired O2 32 08/20/16 08:15 Tidal Volume NA 08/20/16 08:15 PEEP NA 08/20/16 08:15 Pressure (ins/psv/peep) NA 08/20/16 08:15 Critical Value CSILVA 08/20/16 08:15 Sodium 133 mEq/L (136-145) L 08/25/16 06:51 Potassium 3.8 mEq/L (3.5-5.1) 08/25/16 06:51 Chloride 101 mEq/L (98-107) 08/25/16 06:51 Carbon Dioxide 24.8 mEq/L (21.0-31.0) 08/25/16 06:51 Anion Gap 11.0 (7.0-16.0) 08/25/16 06:51 BUN 77 mg/dL (7-25) H 08/25/16 06:51 Creatinine 5.4 mg/dL (0.7-1.3) H* 08/25/16 06:51 Est GFR ( Amer) 14.6 ml/min (>90) 08/25/16 06:51 Est GFR (Non-Af Amer) 12.1 ml/min 08/25/16 06:51 BUN/Creatinine Ratio 14.3 08/25/16 06:51 Glucose 134 mg/dL (70-105) H 08/25/16 06:51 POC Glucose 111 MG/DL (70 - 105) H 08/15/16 08:03 Hemoglobin A1c % 4.8 % (4.0-6.0) 08/13/16 06:04 Whole Bld Lactic Acid 1.54 mmol/L (0.60-1.99) 08/13/16 06:04 Calcium 8.4 mg/dL (8.6-10.3) L 08/25/16 06:51 Phosphorus 5.5 mg/dL (2.5-5.0) H 07/19/16 09:50 Magnesium 1.9 mg/dL (1.9-2.7) 08/04/16 05:45 Iron 42 ug/dL (38-169) 06/28/16 04:38 TIBC 269 ug/dL (250-450) 06/28/16 04:38 Iron Saturation 16 % (15-55) 06/28/16 04:38 Unsaturated IBC 227 ug/dL (111-343) 06/28/16 04:38 Ferritin 150 ng/mL (30-400) 06/26/16 08:30 Total Bilirubin 0.9 mg/dL (0.3-1.0) 08/25/16 06:51 Direct Bilirubin 0.70 mg/dL (0.0-0.2) H 06/28/16 04:38 GGTP 14 IU/L (0-65) 06/28/16 04:38 AST 9 U/L (13-39) L 08/25/16 06:51 ALT 7 U/L (7-52) 08/25/16 06:51 Alkaline Phosphatase 31 U/L (34-104) L 08/25/16 06:51 Ammonia 73 umol/L (16-53) H 08/12/16 05:19 Troponin I < 0.01 ng/mL (0.01-0.05) L 06/22/16 19:33 B-Natriuretic Peptide 668.0 pg/mL (5.0-100.0) H 06/22/16 19:33 Total Protein 6.8 gm/dL (6.0-8.3) 08/25/16 06:51 Albumin 2.5 gm/dL (4.2-5.5) L 08/25/16 06:51 Globulin 4.3 gm/dL 08/25/16 06:51 Albumin/Globulin Ratio 0.6 (1.0-1.8) L 08/25/16 06:51 Amylase 28 U/L (29-103) L 07/02/16 06:40 Lipase 31 U/L (11-82) 07/02/16 06:40 TSH 2.98 uIU/ml (0.34-5.60) 08/13/16 06:04 Urine Source CLEAN C 06/29/16 05:55 Urine Color YELLOW 06/29/16 05:55 Urine Clarity HAZY (CLEAR) 06/29/16 05:55 Urine pH 5.5 06/29/16 05:55 Ur Specific [place] 1.015 (1.005-1.030) 06/29/16 05:55 Urine Protein 30 mg/dL (NEGATIVE) H 06/29/16 05:55 Urine Glucose (UA) NEGATIVE mg/dL (NEGATIVE) 06/29/16 05:55 Urine Ketones NEGATIVE mg/dL (NEGATIVE) 06/29/16 05:55 Urine Blood NEGATIVE (NEGATIVE) 06/29/16 05:55 Urine Nitrate NEGATIVE (NEGATIVE) 06/29/16 05:55 Urine Bilirubin NEGATIVE (NEGATIVE) 06/29/16 05:55 Urine Urobilinogen 0.2 E.U./dL (0.2 - 1.0) 06/29/16 05:55 Ur Leukocyte Esterase TRACE (NEGATIVE) H 06/29/16 05:55 Urine RBC 0-2 /hpf (0-5) H 06/29/16 05:55 Urine WBC 6-10 /hpf (0-5) H 06/29/16 05:55 Ur Epithelial Cells FEW /lpf (FEW) 06/29/16 05:55 Urine Bacteria MANY /hpf (NONE SEEN) 06/29/16 05:55 Stool Occult Blood POSITIVE (NEGATIVE) 08/17/16 11:00 Stool Leukocyte NO WBC SEEN 08/17/16 11:00 Gentamicin Trough ug/ml (0.2-2.0) 08/12/16 05:19 Random Vancomycin 19.2 ug/mL (5.0-40.0) 08/26/16 07:56 RPR NONREACTIVE (NONREACTIVE) 06/22/16 19:33 Helicobacter pylori Ab NEGATIVE (NEGATIVE) 08/23/16 12:00 Hepatitis A IgM Ab Negative (Negative) 06/29/16 05:49 Hep Bs Antigen Negative (Negative) 06/29/16 05:49 Hep B Core IgM Ab Negative (Negative) 06/29/16 05:49 Hepatitis C Antibody >11.0 s/co ratio (0.0-0.9) H 06/29/16 05:49 Blood Type A POSITIVE 08/10/16 21:07 Antibody Screen NEGATIVE 08/10/16 21:07 Crossmatch See Detail 08/10/16 21:07 - Physical Exam Vitals and I&O: Vital Signs Temp 97.5 F 08/27/16 12:00 Pulse 113 08/27/16 12:00 Resp 20 08/27/16 12:00 BP 139/76 08/27/16 12:00 Pulse Ox 97 08/27/16 12:00 Intake & Output 08/26/16 08/27/16 08/27/16 18:59 06:59 18:59 Intake Total 850 1100 Output Total 0 Balance 850 1100 Intake: Intake, IV Amount 500 Vancomycin HCl 2 gm In 500 Sodium Chloride 0.9% 500 ml @ 250 mls/hr IV 2100 [facility] Rx#:[id number] Oral 850 600 Output: Urine 0 Other: # Bowel Movements 1 1 Stool Characteristics Liquid Liquid Brown Brown Active Medications: Current Medications Acetaminophen (Tylenol) 650 mg PO Q6H PRN PRN Reason: temperature above 100F Stop: 09/28/16 16:14 Last Admin: 07/30/16 16:27 Dose: 650 mg Calamine/Phenol (Calmoseptine) 1 appl TP QID [facility] Stop: 10/14/16 12:59 Last Admin: 08/27/16 12:44 Dose: 1 appl Diphenhydramine HCl (Benadryl 50 Mg/Ml) 25 mg IVP Q6HR PRN PRN Reason: itching Stop: 10/11/16 03:12 Last Admin: 08/14/16 11:25 Dose: 25 mg Docusate Sodium (Colace) 100 mg PO Q12HR [facility] Stop: 09/16/16 08:59 Last Admin: 08/27/16 08:28 Dose: 100 mg Fluconazole (Diflucan) 100 mg PO DAILY [facility] Stop: 10/23/16 08:59 Last Admin: 08/27/16 08:28 Dose: 100 mg Hydrocortisone Sodium Succinate (Solu-Cortef) 50 mg IVP Q8H [facility] Stop: 10/09/16 15:59 Last Admin: 08/27/16 09:53 Dose: 50 mg Sodium Chloride (Nacl 0.9%) 1,000 mls @ 10 mls/hr IV .Q24H [facility] Stop: 10/15/16 15:01 Last Admin: 08/26/16 03:27 Dose: 10 mls/hr Lactobacillus Rhamnosus (Culturelle) 1 each PO DAILY [facility] Stop: 10/12/16 08:59 Last Admin: 08/27/16 08:44 Dose: 1 each Lactulose (Cephulac) 20 gm PO BID [facility] Stop: 10/17/16 08:59 Last Admin: 08/27/16 08:33 Dose: Not Given Levetiracetam (Keppra) 500 mg PO BID [facility] Stop: 10/19/16 16:59 Last Admin: 08/27/16 08:30 Dose: 500 mg Lorazepam (Ativan) 2 mg IVP Q2HR PRN; Protocol PRN Reason: Seizures Stop: 10/19/16 10:06 Metronidazole (Flagyl) 500 mg PO TID [facility] Stop: 08/31/16 21:01 Last Admin: 08/27/16 08:28 Dose: 500 mg Miscellaneous (Clinical Monitoring) 1 ea MC DAILY PRN PRN Reason: RENAL Stop: 10/06/16 08:17 Miscellaneous (Probiotic Screen) 1 ea MC PRN PRN PRN Reason: PROTOCOL Stop: 10/11/16 14:12 Miscellaneous (Vancomycin Iv Per Pharmacy) 1 ea PRN PRN PRN Reason: PROTOCOL Stop: 10/22/16 11:55 Morphine Sulfate (Morphine) 2 mg IV Q4HR PRN PRN Reason: Pain (Moderate) Stop: 10/15/16 13:36 Last Admin: 08/26/16 09:30 Dose: 2 mg Pantoprazole Sodium (Protonix) 40 mg IVP BID [facility] Stop: 10/19/16 16:59 Last Admin: 08/27/16 08:28 Dose: 40 mg Sodium Bicarbonate (Sodium Bicarb) 50 meq IVP BID [facility] Stop: 10/13/16 16:59 Last Admin: 08/27/16 08:29 Dose: 50 meq General: Alert, No acute distress HEENT: Atraumatic, Mucous membr. moist/pink Neck: Supple, +2 carotid pulse wo bruit Cardiovascular: Regular rate, Normal S1, Normal S2 Lungs: Other (few rhonchi) Abdomen: Bowel sounds, Soft Extremities: Edema ((+) 3 bipedal edema) Neurological: Sensation intact Skin: no Rash - Procedures Procedures: Procedures Procedure Code Date ARTERY-VEIN NONAUTOGRAFT 59742 06/22/16 BLOOD TRANSFUSION SERVICE 20189 06/22/16 BYPASS L BRACH ART TO UP ARM VEIN W NONAUT SUB, OPEN [id number] 06/22/16 FLUOROSCOPY OF SUP VENA CAVA USING [facility] CONTRAST, GUIDANCE [id number] 06/22/16 INSERTION OF INFUSION DEV INTO SUP VENA CAVA, PERC APPROACH [id number] 06/22/[address] CATHETER IN VEIN 17409 06/22/16 TRANSFUSE NONAUT RED BLOOD CELLS IN PERIPH VEIN, PERC [id number] 06/22/16 Assessment/Plan - Problem List Patient Problems: All Active Problems Anemia (Acute) D64.9 ESRD (end stage renal disease) (Acute) ESRD (end stage renal disease) on dialysis (Acute) N18.6, Z99.2 ESRD (end stage renal disease) on dialysis (Acute) N18.6, Z99.2 HYPOTENSION (Acute) HYPOXEMIA (Acute) MEDICAL EVALUATION PER DR FRY (Acute) funtional quadriperisis (Acute) septic shock (Acute) - Assessment Assessment: septic shock (better) esrd on hd persistent cellulitis b/l lower ext acute on chronic anemia possible gi bleed ohs chronic a. fib hypothyroid anasarca functional quadriplegia chronic venous stasis dermatitis acute decomp psychosis s/p left avg G (+) cocci in clusters septicemia new onset seizure activity Candidal Esophagitis, Antral gastritis - Plan Plan: Lab - Result Diagrams 07/19/16 09:50 Lab - Result Diagrams 07/22/16 05:21 Lab - Result Diagrams 07/24/16 05:00 Lab - Result Diagrams Lab - Result Diagrams 08/04/16 08:33 Lab - Result Diagrams 08/05/16 05:00 08/04/16 05:45 08/04/16 05:45 07/28/16 05:30 07/28/16 05:30 07/24/16 05:00 07/20/16 05:50 07/19/16 09:50 latest hgb/hct were 9.4/28.3 culture grew G (+) cocci, WBC down to 11.9 continue ABx transfuse as necessary f/u electrolytes, cbc new right Anton cath new onset seiure activity schedule for HD in am Lab - Result Diagrams 07/19/16 09:50 07/20/16 05:50 Lab - Result Diagrams 07/21/16 06:16 07/20/16 05:50 Lab - Result Diagrams 07/26/16 11:05 07/24/16 05:00 Lab - Result Diagrams 07/29/16 05:55 07/28/16 05:30 Lab - Result Diagrams 08/12/16 05:19 08/12/16 05:19 Lab - Result Diagrams 08/17/16 07:20 08/17/16 07:20 Lab - Result Diagrams 08/25/16 06:51 08/25/16 06:51
[2016-08-28] MEDS: Hydrocortisone Sodium Succ 100 mg Vial IVP SCH ×3 (00:19→16:30)
[2016-08-28] MEDS: Morphine Sulfate 2 mg/mL 1mL Syr IV PRN (00:26)
--- NOTE | 2016-08-28 05:11 | Progress Notes ---
DATE: 08/27/2016 SUBJECTIVE: The patient was seen in his room, lying in the bed. The patient is awake and alert, using his laptop. Otherwise, the patient is in no acute distress. OBJECTIVE: HEENT: Head is atraumatic and normocephalic. Eyes: Bilateral pupils are equally round and reactive. NECK: Supple. No JVD. CARDIOVASCULAR: S1 and S2 heard, irregularly. GASTROINTESTINAL: Soft and nontender without guarding. MUSCULOSKELETAL: Bilateral lower extremity edema and no clubbing. ASSESSMENT: 1. Respiratory failure. 2. End-stage renal disease, on hemodialysis. 3. Atrial fibrillation. 4. Hypothyroidism. 5. Anemia. 6. Obesity. 7. Chronic bilateral lower extremity cellulitis. 8. History of psychosis. 9. New onset of seizure. 10. Maria C esophagitis. PLAN: We will follow up with the discharge plan of this patient. We also will continue to monitor the patient's condition. We will follow up with the community relations advisor, also with the neurologist, and ID doctor. JOB# [id number]
[2016-08-28 08:03] LABS: HEMOGLOBIN 9.9 gm/dL (13.2-17.3); MEAN CELL VOLUME 83.4 fl (80-99); MEAN CORPUSCULAR HEMOGLOBIN 27.6 pg (26.0-30.0); MEAN CORPUSCULAR HGB CONC 33.1 pg (28.0-36.0); MEAN PLATELET VOLUME 10.1 fl; PLATELET COUNT 83 Th/cmm (150-400); RED CELL DISTRIBUTION WIDTH 15.5 % (11.5-20.0); WHITE BLOOD COUNT 10.4 Th/cmm (4.8-10.8)
[2016-08-28] MEDS: Lactobacillus Rhamnosus 10 Billion CFU Capsule PO SCH (08:21)
[2016-08-28] MEDS: Venelex 60gm Tube TP SCH (08:22)
[2016-08-28] MEDS: Menthol/Zinc Oxide Oint 113gm Tube TP SCH ×4 (08:22→22:00)
[2016-08-28] MEDS: Sodium Bicarbonate 8.4% 50mEq PFS IVP SCH ×2 (08:23→16:35)
[2016-08-28 08:26] LABS: ANION GAP 10.5 (7.0-16.0); BAND NEUTROPHILE 2 % (0-10); BUN/CREATININE RATIO 15.5; CALCIUM SERUM 8.4 mg/dL (8.6-10.3); CARBON DIOXIDE 27.4 mEq/L (21.0-31.0); NEUTROPHILS 86 % (40-80); PLATELET ESTIMATE DECREASED PLATELETS (NORMAL); POTASSIUM SERUM 3.9 mEq/L (3.5-5.1); TOTAL CELLS COUNTED 100
[2016-08-28 08:31] LABS: CREATININE - SERUM 5.3 mg/dL (0.7-1.3)
[2016-08-28] MEDS: Lactulose 10 Gm/15 mL 30mL UDC PO SCH ×2 (08:35→16:39)
--- NOTE | 2016-08-28 09:07 | General Progress Note ---
Subjective - Review of Systems Events since last encounter: patient in no distress Subjective: pt is sob on bipap c/o weakness getting better Objective - Results Result Diagrams: 08/28/16 07:40 08/28/16 07:40 Recent Labs: Laboratory Last Values WBC 10.4 Th/cmm (4.8-10.8) 08/28/16 07:40 RBC 3.60 Mil/cmm (4.30-5.70) L 08/28/16 07:40 Hgb 9.9 gm/dL (13.2-17.3) L 08/28/16 07:40 Hct 30.0 % (39.0-49.0) L 08/28/16 07:40 MCV 83.4 fl (80-99) 08/28/16 07:40 MCH 27.6 pg (26.0-30.0) 08/28/16 07:40 MCHC Differential 33.1 pg (28.0-36.0) 08/28/16 07:40 RDW 15.5 % (11.5-20.0) 08/28/16 07:40 Plt Count 83 Th/cmm (150-400) L 08/28/16 07:40 MPV 10.1 fl 08/28/16 07:40 Neutrophils % 56.8 % (40.0-80.0) 07/07/16 06:00 Band Neutrophils % 2 % (0-10) 08/28/16 07:40 Lymphocytes % 18.4 % (20.0-50.0) L 07/07/16 06:00 Monocytes % 13.8 % (2.0-10.0) H 07/07/16 06:00 Eosinophils % 11.0 % (0.0-5.0) H 07/07/16 06:00 Basophils % 0.0 % (0.0-2.0) 07/07/16 06:00 Neutrophils (Manual) 86 % (40-80) H 08/28/16 07:40 Lymphocytes 7 % (20-50) L 08/28/16 07:40 Monocytes 5 % (2-10) 08/28/16 07:40 Eosinophils 1 % (0-5) 08/18/16 05:18 Basophils 3 % (0-3) 08/04/16 08:33 Metamyelocytes 1 % (0-0) H 08/14/16 07:40 Myelocytes 1 % 07/14/16 16:00 Nucleated RBCs 1.0 % (0-0) H 08/15/16 09:30 Hypochromia 1+ 07/20/16 23:30 Platelet Estimate DECREASED PLATELETS (NORMAL) 08/28/16 07:40 Platelet Morphology NORMAL (NORMAL) 08/25/16 06:51 Polychromasia 1+ 07/20/16 23:30 Anisocytosis 1+ 08/25/16 06:51 Microcytosis 1+ 07/14/16 16:00 RBC Morph Micro Appear ABNORMAL (NORMAL) 08/25/16 06:51 PT 15.4 SECONDS (9.5-11.5) H 08/23/16 04:35 INR 1.45 (0.5-1.4) H 08/23/16 04:35 PTT (Actin FS) 37.7 SECONDS (26.0-38.0) 08/17/16 07:20 Specimen Source Arterial 08/20/16 08:15 Sample Site Right Radial 08/20/16 08:15 pH 7.33 (7.35-7.45) L 08/20/16 08:15 pCO2 55.0 mmHg (35.0-45.0) H 08/20/16 08:15 pO2 92.0 mmHg (80.0-100.0) 08/20/16 08:15 HCO3 26.5 mEq/L (20.0-26.0) H 08/20/16 08:15 Base Excess 2.0 mEq/L (-3.0-3.0) 08/20/16 08:15 O2 Saturation 97.0 % (92.0-100.0) 08/20/16 08:15 Estuardo Test POSITIVE 08/20/16 08:15 Vent Rate NA 08/20/16 08:15 Inspired O2 32 08/20/16 08:15 Tidal Volume NA 08/20/16 08:15 PEEP NA 08/20/16 08:15 Pressure (ins/psv/peep) NA 08/20/16 08:15 Critical Value CSILVA 08/20/16 08:15 Sodium 135 mEq/L (136-145) L 08/28/16 07:40 Potassium 3.9 mEq/L (3.5-5.1) 08/28/16 07:40 Chloride 101 mEq/L (98-107) 08/28/16 07:40 Carbon Dioxide 27.4 mEq/L (21.0-31.0) 08/28/16 07:40 Anion Gap 10.5 (7.0-16.0) 08/28/16 07:40 BUN 82 mg/dL (7-25) H* 08/28/16 07:40 Creatinine 5.3 mg/dL (0.7-1.3) H* 08/28/16 07:40 Est GFR ( Amer) 14.9 ml/min (>90) 08/28/16 07:40 Est GFR (Non-Af Amer) 12.3 ml/min 08/28/16 07:40 BUN/Creatinine Ratio 15.5 08/28/16 07:40 Glucose 114 mg/dL (70-105) H 08/28/16 07:40 POC Glucose 111 MG/DL (70 - 105) H 08/15/16 08:03 Hemoglobin A1c % 4.8 % (4.0-6.0) 08/13/16 06:04 Whole Bld Lactic Acid 1.54 mmol/L (0.60-1.99) 08/13/16 06:04 Calcium 8.4 mg/dL (8.6-10.3) L 08/28/16 07:40 Phosphorus 5.5 mg/dL (2.5-5.0) H 07/19/16 09:50 Magnesium 1.9 mg/dL (1.9-2.7) 08/04/16 05:45 Iron 42 ug/dL (38-169) 06/28/16 04:38 TIBC 269 ug/dL (250-450) 06/28/16 04:38 Iron Saturation 16 % (15-55) 06/28/16 04:38 Unsaturated IBC 227 ug/dL (111-343) 06/28/16 04:38 Ferritin 150 ng/mL (30-400) 06/26/16 08:30 Total Bilirubin 0.9 mg/dL (0.3-1.0) 08/25/16 06:51 Direct Bilirubin 0.70 mg/dL (0.0-0.2) H 06/28/16 04:38 GGTP 14 IU/L (0-65) 06/28/16 04:38 AST 9 U/L (13-39) L 08/25/16 06:51 ALT 7 U/L (7-52) 08/25/16 06:51 Alkaline Phosphatase 31 U/L (34-104) L 08/25/16 06:51 Ammonia 73 umol/L (16-53) H 08/12/16 05:19 Troponin I < 0.01 ng/mL (0.01-0.05) L 06/22/16 19:33 B-Natriuretic Peptide 668.0 pg/mL (5.0-100.0) H 06/22/16 19:33 Total Protein 6.8 gm/dL (6.0-8.3) 08/25/16 06:51 Albumin 2.5 gm/dL (4.2-5.5) L 08/25/16 06:51 Globulin 4.3 gm/dL 08/25/16 06:51 Albumin/Globulin Ratio 0.6 (1.0-1.8) L 08/25/16 06:51 Amylase 28 U/L (29-103) L 07/02/16 06:40 Lipase 31 U/L (11-82) 07/02/16 06:40 TSH 2.98 uIU/ml (0.34-5.60) 08/13/16 06:04 Urine Source CLEAN C 06/29/16 05:55 Urine Color YELLOW 06/29/16 05:55 Urine Clarity HAZY (CLEAR) 06/29/16 05:55 Urine pH 5.5 06/29/16 05:55 Ur Specific [place] 1.015 (1.005-1.030) 06/29/16 05:55 Urine Protein 30 mg/dL (NEGATIVE) H 06/29/16 05:55 Urine Glucose (UA) NEGATIVE mg/dL (NEGATIVE) 06/29/16 05:55 Urine Ketones NEGATIVE mg/dL (NEGATIVE) 06/29/16 05:55 Urine Blood NEGATIVE (NEGATIVE) 06/29/16 05:55 Urine Nitrate NEGATIVE (NEGATIVE) 06/29/16 05:55 Urine Bilirubin NEGATIVE (NEGATIVE) 06/29/16 05:55 Urine Urobilinogen 0.2 E.U./dL (0.2 - 1.0) 06/29/16 05:55 Ur Leukocyte Esterase TRACE (NEGATIVE) H 06/29/16 05:55 Urine RBC 0-2 /hpf (0-5) H 06/29/16 05:55 Urine WBC 6-10 /hpf (0-5) H 06/29/16 05:55 Ur Epithelial Cells FEW /lpf (FEW) 06/29/16 05:55 Urine Bacteria MANY /hpf (NONE SEEN) 06/29/16 05:55 Stool Occult Blood POSITIVE (NEGATIVE) 08/17/16 11:00 Stool Leukocyte NO WBC SEEN 08/17/16 11:00 Gentamicin Trough ug/ml (0.2-2.0) 08/12/16 05:19 Random Vancomycin 19.2 ug/mL (5.0-40.0) 08/26/16 07:56 RPR NONREACTIVE (NONREACTIVE) 06/22/16 19:33 Helicobacter pylori Ab NEGATIVE (NEGATIVE) 08/23/16 12:00 Hepatitis A IgM Ab Negative (Negative) 06/29/16 05:49 Hep Bs Antigen Negative (Negative) 06/29/16 05:49 Hep B Core IgM Ab Negative (Negative) 06/29/16 05:49 Hepatitis C Antibody >11.0 s/co ratio (0.0-0.9) H 06/29/16 05:49 Blood Type A POSITIVE 08/10/16 21:07 Antibody Screen NEGATIVE 08/10/16 21:07 Crossmatch See Detail 08/10/16 21:07 - Physical Exam Vitals and I&O: Vital Signs Temp 97.2 F 08/28/16 08:00 Pulse 162 08/28/16 08:00 Resp 19 08/28/16 08:00 BP 115/67 08/28/16 08:00 Pulse Ox 99 08/28/16 08:00 Intake & Output 08/27/16 08/28/16 08/28/16 18:59 06:59 18:59 Intake Total 500 800 Balance 500 800 Intake: Oral 500 800 Other: # Bowel Movements 0 1 Active Medications: Current Medications Acetaminophen (Tylenol) 650 mg PO Q6H PRN PRN Reason: temperature above 100F Stop: 09/28/16 16:14 Last Admin: 07/30/16 16:27 Dose: 650 mg Calamine/Phenol (Calmoseptine) 1 appl TP QID MARQUISE Stop: 10/14/16 12:59 Last Admin: 08/28/16 08:22 Dose: 1 appl Diphenhydramine HCl (Benadryl 50 Mg/Ml) 25 mg IVP Q6HR PRN PRN Reason: itching Stop: 10/11/16 03:12 Last Admin: 08/14/16 11:25 Dose: 25 mg Docusate Sodium (Colace) 100 mg PO Q12HR [facility] Stop: 09/16/16 08:59 Last Admin: 08/28/16 08:22 Dose: 100 mg Fluconazole (Diflucan) 100 mg PO DAILY [facility] Stop: 10/23/16 08:59 Last Admin: 08/28/16 08:21 Dose: 100 mg Hydrocortisone Sodium Succinate (Solu-Cortef) 50 mg IVP Q8H [facility] Stop: 10/09/16 15:59 Last Admin: 08/28/16 08:21 Dose: 50 mg Sodium Chloride (Nacl 0.9%) 1,000 mls @ 10 mls/hr IV .Q24H [facility] Stop: 10/15/16 15:01 Last Admin: 08/26/16 03:27 Dose: 10 mls/hr Lactobacillus Rhamnosus (Culturelle) 1 each PO DAILY [facility] Stop: 10/12/16 08:59 Last Admin: 08/28/16 08:21 Dose: 1 each Lactulose (Cephulac) 20 gm PO BID [facility] Stop: 10/17/16 08:59 Last Admin: 08/28/16 08:35 Dose: Not Given Levetiracetam (Keppra) 500 mg PO BID [facility] Stop: 10/19/16 16:59 Last Admin: 08/28/16 08:21 Dose: 500 mg Lorazepam (Ativan) 2 mg IVP Q2HR PRN; Protocol PRN Reason: Seizures Stop: 10/19/16 10:06 Metronidazole (Flagyl) 500 mg PO TID MAR[facility]ISE Stop: 08/31/16 21:01 Last Admin: 08/28/16 08:23 Dose: 500 mg Miscellaneous (Clinical Monitoring) 1 ea MC DAILY PRN PRN Reason: RENAL Stop: 10/06/16 08:17 Miscellaneous (Probiotic Screen) 1 ea MC PRN PRN PRN Reason: PROTOCOL Stop: 10/11/16 14:12 Miscellaneous (Vancomycin Iv Per Pharmacy) 1 ea MC PRN PRN PRN Reason: PROTOCOL Stop: 10/22/16 11:55 Morphine Sulfate (Morphine) 2 mg IV Q4HR PRN PRN Reason: Pain (Moderate) Stop: 10/15/16 13:36 Last Admin: 08/28/16 00:26 Dose: 2 mg Pantoprazole Sodium (Protonix) 40 mg IVP BID MARQUISE Stop: 10/19/16 16:59 Last Admin: 08/28/16 08:21 Dose: 40 mg Polyethylene Glycol/Electrolytes (Golytely) 4,000 ml PO X1 ONE Stop: 08/28/16 10:01 Sodium Bicarbonate (Sodium Bicarb) 50 meq IVP BID MARQUISE Stop: 10/13/16 16:59 Last Admin: 08/28/16 08:23 Dose: 50 meq General: Alert, No acute distress HEENT: Atraumatic Neck: Supple Cardiovascular: Regular rate Lungs: Clear to auscultation Abdomen: Bowel sounds - Procedures Procedures: Procedures Procedure Code Date ARTERY-VEIN NONAUTOGRAFT 30340 06/22/16 BLOOD TRANSFUSION SERVICE 64180 06/22/16 BYPASS L BRACH ART TO UP ARM VEIN W NONAUT SUB, OPEN [id number] 06/22/16 FLUOROSCOPY OF SUP VENA CAVA USING [facility] CONTRAST, GUIDANCE [id number] 06/22/16 INSERTION OF INFUSION DEV INTO SUP VENA CAVA, PERC APPROACH [id number] 06/22/[address] PLACE CATHETER IN VEIN 56684 06/22/16 TRANSFUSE NONAUT RED BLOOD CELLS IN PERIPH VEIN, PERC [id number] 06/22/16 Assessment/Plan - Problem List Patient Problems: All Active Problems Anemia (Acute) D64.9 ESRD (end stage renal disease) (Acute) ESRD (end stage renal disease) on dialysis (Acute) N18.6, Z99.2 ESRD (end stage renal disease) on dialysis (Acute) N18.6, Z99.2 HYPOTENSION (Acute) HYPOXEMIA (Acute) MEDICAL EVALUATION PER DR FRY (Acute) funtional quadriperisis (Acute) septic shock (Acute) - Assessment Assessment: 1. Cellulitis of legs. 2. Lymphedema of legs. 3. CKD 5 on HD. 4. Morbid obesity. 5 anemia 6 gi bleed 7 psychosis - Plan Plan: dialysis iv antibiotics ltac eval tele status snif plan
--- NOTE | 2016-08-28 10:33 | Infectious Disease Prog Note ---
Infectious Disease Subjective - Review of Systems Service Date: 08/28/16 Subjective: There is no new change. There is no fever. Infectious Disease Objective - Results Result Diagrams: 08/28/16 07:40 08/28/16 07:40 Recent Labs: Laboratory Last Values WBC 10.4 Th/cmm (4.8-10.8) 08/28/16 07:40 RBC 3.60 Mil/cmm (4.30-5.70) L 08/28/16 07:40 Hgb 9.9 gm/dL (13.2-17.3) L 08/28/16 07:40 Hct 30.0 % (39.0-49.0) L 08/28/16 07:40 MCV 83.4 fl (80-99) 08/28/16 07:40 MCH 27.6 pg (26.0-30.0) 08/28/16 07:40 MCHC Differential 33.1 pg (28.0-36.0) 08/28/16 07:40 RDW 15.5 % (11.5-20.0) 08/28/16 07:40 Plt Count 83 Th/cmm (150-400) L 08/28/16 07:40 MPV 10.1 fl 08/28/16 07:40 Neutrophils % 56.8 % (40.0-80.0) 07/07/16 06:00 Band Neutrophils % 2 % (0-10) 08/28/16 07:40 Lymphocytes % 18.4 % (20.0-50.0) L 07/07/16 06:00 Monocytes % 13.8 % (2.0-10.0) H 07/07/16 06:00 Eosinophils % 11.0 % (0.0-5.0) H 07/07/16 06:00 Basophils % 0.0 % (0.0-2.0) 07/07/16 06:00 Neutrophils (Manual) 86 % (40-80) H 08/28/16 07:40 Lymphocytes 7 % (20-50) L 08/28/16 07:40 Monocytes 5 % (2-10) 08/28/16 07:40 Eosinophils 1 % (0-5) 08/18/16 05:18 Basophils 3 % (0-3) 08/04/16 08:33 Metamyelocytes 1 % (0-0) H 08/14/16 07:40 Myelocytes 1 % 07/14/16 16:00 Nucleated RBCs 1.0 % (0-0) H 08/15/16 09:30 Hypochromia 1+ 07/20/16 23:30 Platelet Estimate DECREASED PLATELETS (NORMAL) 08/28/16 07:40 Platelet Morphology NORMAL (NORMAL) 08/25/16 06:51 Polychromasia 1+ 07/20/16 23:30 Anisocytosis 1+ 08/25/16 06:51 Microcytosis 1+ 07/14/16 16:00 RBC Morph Micro Appear ABNORMAL (NORMAL) 08/25/16 06:51 PT 15.4 SECONDS (9.5-11.5) H 08/23/16 04:35 INR 1.45 (0.5-1.4) H 08/23/16 04:35 PTT (Actin FS) 37.7 SECONDS (26.0-38.0) 08/17/16 07:20 Specimen Source Arterial 08/20/16 08:15 Sample Site Right Radial 08/20/16 08:15 pH 7.33 (7.35-7.45) L 08/20/16 08:15 pCO2 55.0 mmHg (35.0-45.0) H 08/20/16 08:15 pO2 92.0 mmHg (80.0-100.0) 08/20/16 08:15 HCO3 26.5 mEq/L (20.0-26.0) H 08/20/16 08:15 Base Excess 2.0 mEq/L (-3.0-3.0) 08/20/16 08:15 O2 Saturation 97.0 % (92.0-100.0) 08/20/16 08:15 Estuardo Test POSITIVE 08/20/16 08:15 Vent Rate NA 08/20/16 08:15 Inspired O2 32 08/20/16 08:15 Tidal Volume NA 08/20/16 08:15 PEEP NA 08/20/16 08:15 Pressure (ins/psv/peep) NA 08/20/16 08:15 Critical Value CSILVA 08/20/16 08:15 Sodium 135 mEq/L (136-145) L 08/28/16 07:40 Potassium 3.9 mEq/L (3.5-5.1) 08/28/16 07:40 Chloride 101 mEq/L (98-107) 08/28/16 07:40 Carbon Dioxide 27.4 mEq/L (21.0-31.0) 08/28/16 07:40 Anion Gap 10.5 (7.0-16.0) 08/28/16 07:40 BUN 82 mg/dL (7-25) H* 08/28/16 07:40 Creatinine 5.3 mg/dL (0.7-1.3) H* 08/28/16 07:40 Est GFR ( Amer) 14.9 ml/min (>90) 08/28/16 07:40 Est GFR (Non-Af Amer) 12.3 ml/min 08/28/16 07:40 BUN/Creatinine Ratio 15.5 08/28/16 07:40 Glucose 114 mg/dL (70-105) H 08/28/16 07:40 POC Glucose 111 MG/DL (70 - 105) H 08/15/16 08:03 Hemoglobin A1c % 4.8 % (4.0-6.0) 08/13/16 06:04 Whole Bld Lactic Acid 1.54 mmol/L (0.60-1.99) 08/13/16 06:04 Calcium 8.4 mg/dL (8.6-10.3) L 08/28/16 07:40 Phosphorus 5.5 mg/dL (2.5-5.0) H 07/19/16 09:50 Magnesium 1.9 mg/dL (1.9-2.7) 08/04/16 05:45 Iron 42 ug/dL (38-169) 06/28/16 04:38 TIBC 269 ug/dL (250-450) 06/28/16 04:38 Iron Saturation 16 % (15-55) 06/28/16 04:38 Unsaturated IBC 227 ug/dL (111-343) 06/28/16 04:38 Ferritin 150 ng/mL (30-400) 06/26/16 08:30 Total Bilirubin 0.9 mg/dL (0.3-1.0) 08/25/16 06:51 Direct Bilirubin 0.70 mg/dL (0.0-0.2) H 06/28/16 04:38 GGTP 14 IU/L (0-65) 06/28/16 04:38 AST 9 U/L (13-39) L 08/25/16 06:51 ALT 7 U/L (7-52) 08/25/16 06:51 Alkaline Phosphatase 31 U/L (34-104) L 08/25/16 06:51 Ammonia 73 umol/L (16-53) H 08/12/16 05:19 Troponin I < 0.01 ng/mL (0.01-0.05) L 06/22/16 19:33 B-Natriuretic Peptide 668.0 pg/mL (5.0-100.0) H 06/22/16 19:33 Total Protein 6.8 gm/dL (6.0-8.3) 08/25/16 06:51 Albumin 2.5 gm/dL (4.2-5.5) L 08/25/16 06:51 Globulin 4.3 gm/dL 08/25/16 06:51 Albumin/Globulin Ratio 0.6 (1.0-1.8) L 08/25/16 06:51 Amylase 28 U/L (29-103) L 07/02/16 06:40 Lipase 31 U/L (11-82) 07/02/16 06:40 TSH 2.98 uIU/ml (0.34-5.60) 08/13/16 06:04 Urine Source CLEAN C 06/29/16 05:55 Urine Color YELLOW 06/29/16 05:55 Urine Clarity HAZY (CLEAR) 06/29/16 05:55 Urine pH 5.5 06/29/16 05:55 Ur Specific [place] 1.015 (1.005-1.030) 06/29/16 05:55 Urine Protein 30 mg/dL (NEGATIVE) H 06/29/16 05:55 Urine Glucose (UA) NEGATIVE mg/dL (NEGATIVE) 06/29/16 05:55 Urine Ketones NEGATIVE mg/dL (NEGATIVE) 06/29/16 05:55 Urine Blood NEGATIVE (NEGATIVE) 06/29/16 05:55 Urine Nitrate NEGATIVE (NEGATIVE) 06/29/16 05:55 Urine Bilirubin NEGATIVE (NEGATIVE) 06/29/16 05:55 Urine Urobilinogen 0.2 E.U./dL (0.2 - 1.0) 06/29/16 05:55 Ur Leukocyte Esterase TRACE (NEGATIVE) H 06/29/16 05:55 Urine RBC 0-2 /hpf (0-5) H 06/29/16 05:55 Urine WBC 6-10 /hpf (0-5) H 06/29/16 05:55 Ur Epithelial Cells FEW /lpf (FEW) 06/29/16 05:55 Urine Bacteria MANY /hpf (NONE SEEN) 06/29/16 05:55 Stool Occult Blood POSITIVE (NEGATIVE) 08/17/16 11:00 Stool Leukocyte NO WBC SEEN 08/17/16 11:00 Gentamicin Trough ug/ml (0.2-2.0) 08/12/16 05:19 Random Vancomycin 19.2 ug/mL (5.0-40.0) 08/26/16 07:56 RPR NONREACTIVE (NONREACTIVE) 06/22/16 19:33 Helicobacter pylori Ab NEGATIVE (NEGATIVE) 08/23/16 12:00 Hepatitis A IgM Ab Negative (Negative) 06/29/16 05:49 Hep Bs Antigen Negative (Negative) 06/29/16 05:49 Hep B Core IgM Ab Negative (Negative) 06/29/16 05:49 Hepatitis C Antibody >11.0 s/co ratio (0.0-0.9) H 06/29/16 05:49 Blood Type A POSITIVE 08/10/16 21:07 Antibody Screen NEGATIVE 08/10/16 21:07 Crossmatch See Detail 08/10/16 21:07 - Physical Exam Vitals and I&O: Vital Signs Temp 97.2 F 08/28/16 08:00 Pulse 162 08/28/16 08:00 Resp 19 08/28/16 08:00 BP 115/67 08/28/16 08:00 Pulse Ox 99 08/28/16 08:00 Intake & Output 08/27/16 08/28/16 08/28/16 18:59 06:59 18:59 Intake Total 500 800 Balance 500 800 Intake: Oral 500 800 Other: # Bowel Movements 0 1 Stool Characteristics Soft Active Medications: Current Medications Acetaminophen (Tylenol) 650 mg PO Q6H PRN PRN Reason: temperature above 100F Stop: 09/28/16 16:14 Last Admin: 07/30/16 16:27 Dose: 650 mg Calamine/Phenol (Calmoseptine) 1 appl TP QID MARQUISE Stop: 10/14/16 12:59 Last Admin: 08/28/16 08:22 Dose: 1 appl Diphenhydramine HCl (Benadryl 50 Mg/Ml) 25 mg IVP Q6HR PRN PRN Reason: itching Stop: 10/11/16 03:12 Last Admin: 08/14/16 11:25 Dose: 25 mg Docusate Sodium (Colace) 100 mg PO Q12HR [facility] Stop: 09/16/16 08:59 Last Admin: 08/28/16 08:22 Dose: 100 mg Fluconazole (Diflucan) 100 mg PO DAILY MARQUISE Stop: 10/23/16 08:59 Last Admin: 08/28/16 08:21 Dose: 100 mg Hydrocortisone Sodium Succinate (Solu-Cortef) 50 mg IVP Q8H [facility] Stop: 10/09/16 15:59 Last Admin: 08/28/16 08:21 Dose: 50 mg Sodium Chloride (Nacl 0.9%) 1,000 mls @ 10 mls/hr IV .Q24H [facility] Stop: 10/15/16 15:01 Last Admin: 08/26/16 03:27 Dose: 10 mls/hr Lactobacillus Rhamnosus (Culturelle) 1 each PO DAILY MARQUISE Stop: 10/12/16 08:59 Last Admin: 08/28/16 08:21 Dose: 1 each Lactulose (Cephulac) 20 gm PO BID MARQUISE Stop: 10/17/16 08:59 Last Admin: 08/28/16 08:35 Dose: Not Given Levetiracetam (Keppra) 500 mg PO BID MARQUISE Stop: 10/19/16 16:59 Last Admin: 08/28/16 08:21 Dose: 500 mg Lorazepam (Ativan) 2 mg IVP Q2HR PRN; Protocol PRN Reason: Seizures Stop: 10/19/16 10:06 Metronidazole (Flagyl) 500 mg PO TID MARQUISE Stop: 08/31/16 21:01 Last Admin: 08/28/16 08:23 Dose: 500 mg Miscellaneous (Clinical Monitoring) 1 ea MC DAILY PRN PRN Reason: RENAL Stop: 10/06/16 08:17 Miscellaneous (Probiotic Screen) 1 ea MC PRN PRN PRN Reason: PROTOCOL Stop: 10/11/16 14:12 Miscellaneous (Vancomycin Iv Per Pharmacy) 1 ea MC PRN PRN PRN Reason: PROTOCOL Stop: 10/22/16 11:55 Morphine Sulfate (Morphine) 2 mg IV Q4HR PRN PRN Reason: Pain (Moderate) Stop: 10/15/16 13:36 Last Admin: 08/28/16 00:26 Dose: 2 mg Pantoprazole Sodium (Protonix) 40 mg IVP BID [facility] Stop: 10/19/16 16:59 Last Admin: 08/28/16 08:21 Dose: 40 mg Sodium Bicarbonate (Sodium Bicarb) 50 meq IVP BID [facility] Stop: 10/13/16 16:59 Last Admin: 08/28/16 08:23 Dose: 50 meq General: no acute distress, other (obese) HEENT: atraumatic, normocephalic, PERRLA, EOMI, moist mucous membrane Neck: supple, no thyromegaly, no lymphadenopathy Cardiovascular: S1S2, regular Lungs: clear to auscultation bilaterally, clear to percussion Abdomen: soft, no tender, no distended Extremities: no cyanosis, no clubbing, no edema Neurological: awake, alert, oriented Skin: intact - Procedures Procedures: Procedures Procedure Code Date ARTERY-VEIN NONAUTOGRAFT 02239 06/22/16 BLOOD TRANSFUSION SERVICE 72161 06/22/16 BYPASS L BRACH ART TO UP ARM VEIN W NONAUT SUB, OPEN [id number] 06/22/16 FLUOROSCOPY OF SUP VENA CAVA USING [facility] CONTRAST, GUIDANCE [id number] 06/22/16 INSERTION OF INFUSION DEV INTO SUP VENA CAVA, PERC APPROACH [id number] 06/22/[address] PL[address] CATHETER IN VEIN 27217 06/22/16 TRANSFUSE NONAUT RED BLOOD CELLS IN PERIPH VEIN, PERC [id number] 06/22/16 Infectious Disease Assmt/Plan - Problem List Patient Problems: All Active Problems Anemia (Acute) D64.9 ESRD (end stage renal disease) (Acute) ESRD (end stage renal disease) on dialysis (Acute) N18.6, Z99.2 ESRD (end stage renal disease) on dialysis (Acute) N18.6, Z99.2 HYPOTENSION (Acute) HYPOXEMIA (Acute) MEDICAL EVALUATION PER DR FRY (Acute) funtional quadriperisis (Acute) septic shock (Acute) - Assessment Assessment: 1. Septic shock. resolved. likely line sepsis. MRSA sepsis. 3/4 positive. 2. Pneumonia. 3. CKD 5 on HD. 4. Morbid obesity. 5. hep C. 6. Cellulitis of legs. improved. treated. 7. Lymphedema of legs. 8. CHF. 9. CDAC. 10. Maria C esophagitis. - Plan Plan: Continue vanco IV and flagyl. Continue Diflucan.
--- NOTE | 2016-08-28 18:51 | General Progress Note ---
Subjective - Review of Systems Service Date: 08/28/16 Subjective: awake, on NC, verbal Objective - Results Result Diagrams: 08/28/16 07:40 08/28/16 07:40 Recent Labs: Laboratory Last Values WBC 10.4 Th/cmm (4.8-10.8) 08/28/16 07:40 RBC 3.60 Mil/cmm (4.30-5.70) L 08/28/16 07:40 Hgb 9.9 gm/dL (13.2-17.3) L 08/28/16 07:40 Hct 30.0 % (39.0-49.0) L 08/28/16 07:40 MCV 83.4 fl (80-99) 08/28/16 07:40 MCH 27.6 pg (26.0-30.0) 08/28/16 07:40 MCHC Differential 33.1 pg (28.0-36.0) 08/28/16 07:40 RDW 15.5 % (11.5-20.0) 08/28/16 07:40 Plt Count 83 Th/cmm (150-400) L 08/28/16 07:40 MPV 10.1 fl 08/28/16 07:40 Neutrophils % 56.8 % (40.0-80.0) 07/07/16 06:00 Band Neutrophils % 2 % (0-10) 08/28/16 07:40 Lymphocytes % 18.4 % (20.0-50.0) L 07/07/16 06:00 Monocytes % 13.8 % (2.0-10.0) H 07/07/16 06:00 Eosinophils % 11.0 % (0.0-5.0) H 07/07/16 06:00 Basophils % 0.0 % (0.0-2.0) 07/07/16 06:00 Neutrophils (Manual) 86 % (40-80) H 08/28/16 07:40 Lymphocytes 7 % (20-50) L 08/28/16 07:40 Monocytes 5 % (2-10) 08/28/16 07:40 Eosinophils 1 % (0-5) 08/18/16 05:18 Basophils 3 % (0-3) 08/04/16 08:33 Metamyelocytes 1 % (0-0) H 08/14/16 07:40 Myelocytes 1 % 07/14/16 16:00 Nucleated RBCs 1.0 % (0-0) H 08/15/16 09:30 Hypochromia 1+ 07/20/16 23:30 Platelet Estimate DECREASED PLATELETS (NORMAL) 08/28/16 07:40 Platelet Morphology NORMAL (NORMAL) 08/25/16 06:51 Polychromasia 1+ 07/20/16 23:30 Anisocytosis 1+ 08/25/16 06:51 Microcytosis 1+ 07/14/16 16:00 RBC Morph Micro Appear ABNORMAL (NORMAL) 08/25/16 06:51 PT 15.4 SECONDS (9.5-11.5) H 08/23/16 04:35 INR 1.45 (0.5-1.4) H 08/23/16 04:35 PTT (Actin FS) 37.7 SECONDS (26.0-38.0) 08/17/16 07:20 Specimen Source Arterial 08/20/16 08:15 Sample Site Right Radial 08/20/16 08:15 pH 7.33 (7.35-7.45) L 08/20/16 08:15 pCO2 55.0 mmHg (35.0-45.0) H 08/20/16 08:15 pO2 92.0 mmHg (80.0-100.0) 08/20/16 08:15 HCO3 26.5 mEq/L (20.0-26.0) H 08/20/16 08:15 Base Excess 2.0 mEq/L (-3.0-3.0) 08/20/16 08:15 O2 Saturation 97.0 % (92.0-100.0) 08/20/16 08:15 Estuardo Test POSITIVE 08/20/16 08:15 Vent Rate NA 08/20/16 08:15 Inspired O2 32 08/20/16 08:15 Tidal Volume NA 08/20/16 08:15 PEEP NA 08/20/16 08:15 Pressure (ins/psv/peep) NA 08/20/16 08:15 Critical Value CSILVA 08/20/16 08:15 Sodium 135 mEq/L (136-145) L 08/28/16 07:40 Potassium 3.9 mEq/L (3.5-5.1) 08/28/16 07:40 Chloride 101 mEq/L (98-107) 08/28/16 07:40 Carbon Dioxide 27.4 mEq/L (21.0-31.0) 08/28/16 07:40 Anion Gap 10.5 (7.0-16.0) 08/28/16 07:40 BUN 82 mg/dL (7-25) H* 08/28/16 07:40 Creatinine 5.3 mg/dL (0.7-1.3) H* 08/28/16 07:40 Est GFR ( Amer) 14.9 ml/min (>90) 08/28/16 07:40 Est GFR (Non-Af Amer) 12.3 ml/min 08/28/16 07:40 BUN/Creatinine Ratio 15.5 08/28/16 07:40 Glucose 114 mg/dL (70-105) H 08/28/16 07:40 POC Glucose 111 MG/DL (70 - 105) H 08/15/16 08:03 Hemoglobin A1c % 4.8 % (4.0-6.0) 08/13/16 06:04 Whole Bld Lactic Acid 1.54 mmol/L (0.60-1.99) 08/13/16 06:04 Calcium 8.4 mg/dL (8.6-10.3) L 08/28/16 07:40 Phosphorus 5.5 mg/dL (2.5-5.0) H 07/19/16 09:50 Magnesium 1.9 mg/dL (1.9-2.7) 08/04/16 05:45 Iron 42 ug/dL (38-169) 06/28/16 04:38 TIBC 269 ug/dL (250-450) 06/28/16 04:38 Iron Saturation 16 % (15-55) 06/28/16 04:38 Unsaturated IBC 227 ug/dL (111-343) 06/28/16 04:38 Ferritin 150 ng/mL (30-400) 06/26/16 08:30 Total Bilirubin 0.9 mg/dL (0.3-1.0) 08/25/16 06:51 Direct Bilirubin 0.70 mg/dL (0.0-0.2) H 06/28/16 04:38 GGTP 14 IU/L (0-65) 06/28/16 04:38 AST 9 U/L (13-39) L 08/25/16 06:51 ALT 7 U/L (7-52) 08/25/16 06:51 Alkaline Phosphatase 31 U/L (34-104) L 08/25/16 06:51 Ammonia 73 umol/L (16-53) H 08/12/16 05:19 Troponin I < 0.01 ng/mL (0.01-0.05) L 06/22/16 19:33 B-Natriuretic Peptide 668.0 pg/mL (5.0-100.0) H 06/22/16 19:33 Total Protein 6.8 gm/dL (6.0-8.3) 08/25/16 06:51 Albumin 2.5 gm/dL (4.2-5.5) L 08/25/16 06:51 Globulin 4.3 gm/dL 08/25/16 06:51 Albumin/Globulin Ratio 0.6 (1.0-1.8) L 08/25/16 06:51 Amylase 28 U/L (29-103) L 07/02/16 06:40 Lipase 31 U/L (11-82) 07/02/16 06:40 TSH 2.98 uIU/ml (0.34-5.60) 08/13/16 06:04 Urine Source CLEAN C 06/29/16 05:55 Urine Color YELLOW 06/29/16 05:55 Urine Clarity HAZY (CLEAR) 06/29/16 05:55 Urine pH 5.5 06/29/16 05:55 Ur Specific [place] 1.015 (1.005-1.030) 06/29/16 05:55 Urine Protein 30 mg/dL (NEGATIVE) H 06/29/16 05:55 Urine Glucose (UA) NEGATIVE mg/dL (NEGATIVE) 06/29/16 05:55 Urine Ketones NEGATIVE mg/dL (NEGATIVE) 06/29/16 05:55 Urine Blood NEGATIVE (NEGATIVE) 06/29/16 05:55 Urine Nitrate NEGATIVE (NEGATIVE) 06/29/16 05:55 Urine Bilirubin NEGATIVE (NEGATIVE) 06/29/16 05:55 Urine Urobilinogen 0.2 E.U./dL (0.2 - 1.0) 06/29/16 05:55 Ur Leukocyte Esterase TRACE (NEGATIVE) H 06/29/16 05:55 Urine RBC 0-2 /hpf (0-5) H 06/29/16 05:55 Urine WBC 6-10 /hpf (0-5) H 06/29/16 05:55 Ur Epithelial Cells FEW /lpf (FEW) 06/29/16 05:55 Urine Bacteria MANY /hpf (NONE SEEN) 06/29/16 05:55 Stool Occult Blood POSITIVE (NEGATIVE) 08/17/16 11:00 Stool Leukocyte NO WBC SEEN 08/17/16 11:00 Gentamicin Trough ug/ml (0.2-2.0) 08/12/16 05:19 Random Vancomycin 19.2 ug/mL (5.0-40.0) 08/26/16 07:56 RPR NONREACTIVE (NONREACTIVE) 06/22/16 19:33 Helicobacter pylori Ab NEGATIVE (NEGATIVE) 08/23/16 12:00 Hepatitis A IgM Ab Negative (Negative) 06/29/16 05:49 Hep Bs Antigen Negative (Negative) 06/29/16 05:49 Hep B Core IgM Ab Negative (Negative) 06/29/16 05:49 Hepatitis C Antibody >11.0 s/co ratio (0.0-0.9) H 06/29/16 05:49 Blood Type A POSITIVE 08/10/16 21:07 Antibody Screen NEGATIVE 08/10/16 21:07 Crossmatch See Detail 08/10/16 21:07 - Physical Exam Vitals and I&O: Vital Signs Temp 97.5 F 08/28/16 16:00 Pulse 108 08/28/16 16:00 Resp 20 08/28/16 16:00 BP 101/71 08/28/16 16:00 Pulse Ox 100 08/28/16 16:00 Intake & Output 08/27/16 08/28/16 08/28/16 18:59 06:59 18:59 Intake Total 500 800 Balance 500 800 Intake: Oral 500 800 Other: # Bowel Movements 0 1 Stool Characteristics Soft Active Medications: Current Medications Acetaminophen (Tylenol) 650 mg PO Q6H PRN PRN Reason: temperature above 100F Stop: 09/28/16 16:14 Last Admin: 07/30/16 16:27 Dose: 650 mg Calamine/Phenol (Calmoseptine) 1 appl TP QID [facility] Stop: 10/14/16 12:59 Last Admin: 08/28/16 16:41 Dose: 1 appl Diphenhydramine HCl (Benadryl 50 Mg/Ml) 25 mg IVP Q6HR PRN PRN Reason: itching Stop: 10/11/16 03:12 Last Admin: 08/14/16 11:25 Dose: 25 mg Docusate Sodium (Colace) 100 mg PO Q12HR [facility] Stop: 09/16/16 08:59 Last Admin: 08/28/16 08:22 Dose: 100 mg Fluconazole (Diflucan) 100 mg PO DAILY [facility] Stop: 10/23/16 08:59 Last Admin: 08/28/16 08:21 Dose: 100 mg Hydrocortisone Sodium Succinate (Solu-Cortef) 50 mg IVP Q8H [facility] Stop: 10/09/16 15:59 Last Admin: 08/28/16 16:30 Dose: 50 mg Sodium Chloride (Nacl 0.9%) 1,000 mls @ 10 mls/hr IV .Q24H [facility] Stop: 10/15/16 15:01 Last Admin: 08/26/16 03:27 Dose: 10 mls/hr Lactobacillus Rhamnosus (Culturelle) 1 each PO DAILY [facility] Stop: 10/12/16 08:59 Last Admin: 08/28/16 08:21 Dose: 1 each Lactulose (Cephulac) 20 gm PO BID [facility] Stop: 10/17/16 08:59 Last Admin: 08/28/16 16:39 Dose: Not Given Levetiracetam (Keppra) 500 mg PO BID [facility] Stop: 10/19/16 16:59 Last Admin: 08/28/16 16:30 Dose: 500 mg Lorazepam (Ativan) 2 mg IVP Q2HR PRN; Protocol PRN Reason: Seizures Stop: 10/19/16 10:06 Metronidazole (Flagyl) 500 mg PO TID [facility] Stop: 08/31/16 21:01 Last Admin: 08/28/16 13:21 Dose: 500 mg Miscellaneous (Clinical Monitoring) 1 ea MC DAILY PRN PRN Reason: RENAL Stop: 10/06/16 08:17 Miscellaneous (Probiotic Screen) 1 ea MC PRN PRN PRN Reason: PROTOCOL Stop: 10/11/16 14:12 Miscellaneous (Vancomycin Iv Per Pharmacy) 1 ea MC PRN PRN PRN Reason: PROTOCOL Stop: 10/22/16 11:55 Morphine Sulfate (Morphine) 2 mg IV Q4HR PRN PRN Reason: Pain (Moderate) Stop: 10/15/16 13:36 Last Admin: 08/28/16 00:26 Dose: 2 mg Pantoprazole Sodium (Protonix) 40 mg IVP BID [facility] Stop: 10/19/16 16:59 Last Admin: 08/28/16 16:31 Dose: 40 mg Sodium Bicarbonate (Sodium Bicarb) 50 meq IVP BID [facility] Stop: 10/13/16 16:59 Last Admin: 08/28/16 16:35 Dose: 50 meq General: Alert, No acute distress HEENT: Atraumatic, Mucous membr. moist/pink Neck: Supple, +2 carotid pulse wo bruit Cardiovascular: Regular rate, Normal S1, Normal S2 Lungs: Other (scattered rhonchi) Abdomen: Bowel sounds, Soft Extremities: Edema ((+) 3 bipedal edema) Neurological: Sensation intact Skin: Rash - Procedures Procedures: Procedures Procedure Code Date ARTERY-VEIN NONAUTOGRAFT 10087 06/22/16 BLOOD TRANSFUSION SERVICE 30619 06/22/16 BYPASS L BRACH ART TO UP ARM VEIN W NONAUT SUB, OPEN [id number] 06/22/16 FLUOROSCOPY OF SUP VENA CAVA USING [facility] CONTRAST, GUIDANCE [id number] 06/22/16 INSERTION OF INFUSION DEV INTO SUP VENA CAVA, PERC APPROACH [id number] 06/22/[address] PL[address] CATHETER IN VEIN 11057 06/22/16 TRANSFUSE NONAUT RED BLOOD CELLS IN PERIPH VEIN, PERC [id number] 06/22/16 Assessment/Plan - Problem List Patient Problems: All Active Problems Anemia (Acute) D64.9 ESRD (end stage renal disease) (Acute) ESRD (end stage renal disease) on dialysis (Acute) N18.6, Z99.2 ESRD (end stage renal disease) on dialysis (Acute) N18.6, Z99.2 HYPOTENSION (Acute) HYPOXEMIA (Acute) MEDICAL EVALUATION PER DR FRY (Acute) funtional quadriperisis (Acute) septic shock (Acute) - Assessment Assessment: septic shock (better) esrd on hd persistent cellulitis b/l lower ext acute on chronic anemia possible gi bleed ohs chronic a. fib hypothyroid anasarca functional quadriplegia chronic venous stasis dermatitis acute decomp psychosis s/p left avg G (+) cocci in clusters septicemia new onset seizure activity Candidal Esophagitis, Antral gastritis - Plan Plan: Lab - Result Diagrams 07/19/16 09:50 Lab - Result Diagrams 07/22/16 05:21 Lab - Result Diagrams 07/24/16 05:00 Lab - Result Diagrams Lab - Result Diagrams 08/04/16 08:33 Lab - Result Diagrams 08/05/16 05:00 08/04/16 05:45 08/04/16 05:45 07/28/16 05:30 07/28/16 05:30 07/24/16 05:00 07/20/16 05:50 07/19/16 09:50 hgb/hct remain stable @ 9.9/30 culture grew G (+) cocci, WBC down to 10.4 continue ABx transfuse as necessary f/u electrolytes, cbc new right Anton cath new onset seiure activity schedule for HD today persistent anasarca, will dialyze 4x/week Lab - Result Diagrams 07/19/16 09:50 07/20/16 05:50 Lab - Result Diagrams 07/21/16 06:16 07/20/16 05:50 Lab - Result Diagrams 07/26/16 11:05 07/24/16 05:00 Lab - Result Diagrams 07/29/16 05:55 07/28/16 05:30 Lab - Result Diagrams 08/12/16 05:19 08/12/16 05:19 Lab - Result Diagrams 08/17/16 07:20 08/17/16 07:20 Lab - Result Diagrams 08/25/16 06:51 08/25/16 06:51
[2016-08-29] MEDS: Hydrocortisone Sodium Succ 100 mg Vial IVP SCH ×3 (00:20→18:18)
[2016-08-29] MEDS: Morphine Sulfate 2 mg/mL 1mL Syr IV PRN ×3 (00:20→22:20)
[2016-08-29] MEDS: Sodium Bicarbonate 8.4% 50mEq PFS IVP SCH ×2 (09:03→17:07)
[2016-08-29] MEDS: Menthol/Zinc Oxide Oint 113gm Tube TP SCH ×4 (09:05→21:26)
[2016-08-29] MEDS: Lactulose 10 Gm/15 mL 30mL UDC PO SCH ×5 (09:07→21:26)
[2016-08-29] MEDS: Venelex 60gm Tube TP SCH (09:16)
[2016-08-29] MEDS: Lactobacillus Rhamnosus 10 Billion CFU Capsule PO SCH (09:16)
--- NOTE | 2016-08-29 11:04 | General Progress Note ---
Subjective - Review of Systems Events since last encounter: Pt. unchanged condition No acute distress Subjective: pt is sob on bipap c/o weakness getting better Objective - Results Result Diagrams: 08/28/16 07:40 08/28/16 07:40 Recent Labs: Laboratory Last Values WBC 10.4 Th/cmm (4.8-10.8) 08/28/16 07:40 RBC 3.60 Mil/cmm (4.30-5.70) L 08/28/16 07:40 Hgb 9.9 gm/dL (13.2-17.3) L 08/28/16 07:40 Hct 30.0 % (39.0-49.0) L 08/28/16 07:40 MCV 83.4 fl (80-99) 08/28/16 07:40 MCH 27.6 pg (26.0-30.0) 08/28/16 07:40 MCHC Differential 33.1 pg (28.0-36.0) 08/28/16 07:40 RDW 15.5 % (11.5-20.0) 08/28/16 07:40 Plt Count 83 Th/cmm (150-400) L 08/28/16 07:40 MPV 10.1 fl 08/28/16 07:40 Neutrophils % 56.8 % (40.0-80.0) 07/07/16 06:00 Band Neutrophils % 2 % (0-10) 08/28/16 07:40 Lymphocytes % 18.4 % (20.0-50.0) L 07/07/16 06:00 Monocytes % 13.8 % (2.0-10.0) H 07/07/16 06:00 Eosinophils % 11.0 % (0.0-5.0) H 07/07/16 06:00 Basophils % 0.0 % (0.0-2.0) 07/07/16 06:00 Neutrophils (Manual) 86 % (40-80) H 08/28/16 07:40 Lymphocytes 7 % (20-50) L 08/28/16 07:40 Monocytes 5 % (2-10) 08/28/16 07:40 Eosinophils 1 % (0-5) 08/18/16 05:18 Basophils 3 % (0-3) 08/04/16 08:33 Metamyelocytes 1 % (0-0) H 08/14/16 07:40 Myelocytes 1 % 07/14/16 16:00 Nucleated RBCs 1.0 % (0-0) H 08/15/16 09:30 Hypochromia 1+ 07/20/16 23:30 Platelet Estimate DECREASED PLATELETS (NORMAL) 08/28/16 07:40 Platelet Morphology NORMAL (NORMAL) 08/25/16 06:51 Polychromasia 1+ 07/20/16 23:30 Anisocytosis 1+ 08/25/16 06:51 Microcytosis 1+ 07/14/16 16:00 RBC Morph Micro Appear ABNORMAL (NORMAL) 08/25/16 06:51 PT 15.4 SECONDS (9.5-11.5) H 08/23/16 04:35 INR 1.45 (0.5-1.4) H 08/23/16 04:35 PTT (Actin FS) 37.7 SECONDS (26.0-38.0) 08/17/16 07:20 Specimen Source Arterial 08/20/16 08:15 Sample Site Right Radial 08/20/16 08:15 pH 7.33 (7.35-7.45) L 08/20/16 08:15 pCO2 55.0 mmHg (35.0-45.0) H 08/20/16 08:15 pO2 92.0 mmHg (80.0-100.0) 08/20/16 08:15 HCO3 26.5 mEq/L (20.0-26.0) H 08/20/16 08:15 Base Excess 2.0 mEq/L (-3.0-3.0) 08/20/16 08:15 O2 Saturation 97.0 % (92.0-100.0) 08/20/16 08:15 Estuardo Test POSITIVE 08/20/16 08:15 Vent Rate NA 08/20/16 08:15 Inspired O2 32 08/20/16 08:15 Tidal Volume NA 08/20/16 08:15 PEEP NA 08/20/16 08:15 Pressure (ins/psv/peep) NA 08/20/16 08:15 Critical Value CSILVA 08/20/16 08:15 Sodium 135 mEq/L (136-145) L 08/28/16 07:40 Potassium 3.9 mEq/L (3.5-5.1) 08/28/16 07:40 Chloride 101 mEq/L (98-107) 08/28/16 07:40 Carbon Dioxide 27.4 mEq/L (21.0-31.0) 08/28/16 07:40 Anion Gap 10.5 (7.0-16.0) 08/28/16 07:40 BUN 82 mg/dL (7-25) H* 08/28/16 07:40 Creatinine 5.3 mg/dL (0.7-1.3) H* 08/28/16 07:40 Est GFR ( Amer) 14.9 ml/min (>90) 08/28/16 07:40 Est GFR (Non-Af Amer) 12.3 ml/min 08/28/16 07:40 BUN/Creatinine Ratio 15.5 08/28/16 07:40 Glucose 114 mg/dL (70-105) H 08/28/16 07:40 POC Glucose 111 MG/DL (70 - 105) H 08/15/16 08:03 Hemoglobin A1c % 4.8 % (4.0-6.0) 08/13/16 06:04 Whole Bld Lactic Acid 1.54 mmol/L (0.60-1.99) 08/13/16 06:04 Calcium 8.4 mg/dL (8.6-10.3) L 08/28/16 07:40 Phosphorus 5.5 mg/dL (2.5-5.0) H 07/19/16 09:50 Magnesium 1.9 mg/dL (1.9-2.7) 08/04/16 05:45 Iron 42 ug/dL (38-169) 06/28/16 04:38 TIBC 269 ug/dL (250-450) 06/28/16 04:38 Iron Saturation 16 % (15-55) 06/28/16 04:38 Unsaturated IBC 227 ug/dL (111-343) 06/28/16 04:38 Ferritin 150 ng/mL (30-400) 06/26/16 08:30 Total Bilirubin 0.9 mg/dL (0.3-1.0) 08/25/16 06:51 Direct Bilirubin 0.70 mg/dL (0.0-0.2) H 06/28/16 04:38 GGTP 14 IU/L (0-65) 06/28/16 04:38 AST 9 U/L (13-39) L 08/25/16 06:51 ALT 7 U/L (7-52) 08/25/16 06:51 Alkaline Phosphatase 31 U/L (34-104) L 08/25/16 06:51 Ammonia 73 umol/L (16-53) H 08/12/16 05:19 Troponin I < 0.01 ng/mL (0.01-0.05) L 06/22/16 19:33 B-Natriuretic Peptide 668.0 pg/mL (5.0-100.0) H 06/22/16 19:33 Total Protein 6.8 gm/dL (6.0-8.3) 08/25/16 06:51 Albumin 2.5 gm/dL (4.2-5.5) L 08/25/16 06:51 Globulin 4.3 gm/dL 08/25/16 06:51 Albumin/Globulin Ratio 0.6 (1.0-1.8) L 08/25/16 06:51 Amylase 28 U/L (29-103) L 07/02/16 06:40 Lipase 31 U/L (11-82) 07/02/16 06:40 TSH 2.98 uIU/ml (0.34-5.60) 08/13/16 06:04 Urine Source CLEAN C 06/29/16 05:55 Urine Color YELLOW 06/29/16 05:55 Urine Clarity HAZY (CLEAR) 06/29/16 05:55 Urine pH 5.5 06/29/16 05:55 Ur Specific [place] 1.015 (1.005-1.030) 06/29/16 05:55 Urine Protein 30 mg/dL (NEGATIVE) H 06/29/16 05:55 Urine Glucose (UA) NEGATIVE mg/dL (NEGATIVE) 06/29/16 05:55 Urine Ketones NEGATIVE mg/dL (NEGATIVE) 06/29/16 05:55 Urine Blood NEGATIVE (NEGATIVE) 06/29/16 05:55 Urine Nitrate NEGATIVE (NEGATIVE) 06/29/16 05:55 Urine Bilirubin NEGATIVE (NEGATIVE) 06/29/16 05:55 Urine Urobilinogen 0.2 E.U./dL (0.2 - 1.0) 06/29/16 05:55 Ur Leukocyte Esterase TRACE (NEGATIVE) H 06/29/16 05:55 Urine RBC 0-2 /hpf (0-5) H 06/29/16 05:55 Urine WBC 6-10 /hpf (0-5) H 06/29/16 05:55 Ur Epithelial Cells FEW /lpf (FEW) 06/29/16 05:55 Urine Bacteria MANY /hpf (NONE SEEN) 06/29/16 05:55 Stool Occult Blood POSITIVE (NEGATIVE) 08/17/16 11:00 Stool Leukocyte NO WBC SEEN 08/17/16 11:00 Gentamicin Trough ug/ml (0.2-2.0) 08/12/16 05:19 Random Vancomycin 19.2 ug/mL (5.0-40.0) 08/26/16 07:56 RPR NONREACTIVE (NONREACTIVE) 06/22/16 19:33 Helicobacter pylori Ab NEGATIVE (NEGATIVE) 08/23/16 12:00 Hepatitis A IgM Ab Negative (Negative) 06/29/16 05:49 Hep Bs Antigen Negative (Negative) 06/29/16 05:49 Hep B Core IgM Ab Negative (Negative) 06/29/16 05:49 Hepatitis C Antibody >11.0 s/co ratio (0.0-0.9) H 06/29/16 05:49 Blood Type A POSITIVE 08/10/16 21:07 Antibody Screen NEGATIVE 08/10/16 21:07 Crossmatch See Detail 08/10/16 21:07 - Physical Exam Vitals and I&O: Vital Signs Temp 97.4 F 08/29/16 04:00 Pulse 107 08/29/16 07:52 Resp 18 08/29/16 08:12 BP 125/77 08/29/16 04:00 Pulse Ox 98 08/29/16 07:52 Intake & Output 08/28/16 08/29/16 08/29/16 18:59 06:59 18:59 Intake Total 1400 Balance 1400 Intake: Oral 1400 Other: Stool Characteristics Soft Soft Active Medications: Current Medications Acetaminophen (Tylenol) 650 mg PO Q6H PRN PRN Reason: temperature above 100F Stop: 09/28/16 16:14 Last Admin: 07/30/16 16:27 Dose: 650 mg Calamine/Phenol (Calmoseptine) 1 appl TP QID [facility] Stop: 10/14/16 12:59 Last Admin: 08/29/16 09:05 Dose: 1 appl Diphenhydramine HCl (Benadryl 50 Mg/Ml) 25 mg IVP Q6HR PRN PRN Reason: itching Stop: 10/11/16 03:12 Last Admin: 08/14/16 11:25 Dose: 25 mg Docusate Sodium (Colace) 100 mg PO Q12HR [facility] Stop: 09/16/16 08:59 Last Admin: 08/29/16 09:16 Dose: Not Given Fluconazole (Diflucan) 100 mg PO DAILY [facility] Stop: 10/23/16 08:59 Last Admin: 08/29/16 09:16 Dose: Not Given Hydrocortisone Sodium Succinate (Solu-Cortef) 50 mg IVP Q8H [facility] Stop: 10/09/16 15:59 Last Admin: 08/29/16 09:03 Dose: 50 mg Sodium Chloride (Nacl 0.9%) 1,000 mls @ 10 mls/hr IV .Q24H [facility] Stop: 10/15/16 15:01 Last Admin: 08/26/16 03:27 Dose: 10 mls/hr Lactobacillus Rhamnosus (Culturelle) 1 each PO DAILY [facility] Stop: 10/12/16 08:59 Last Admin: 08/29/16 09:16 Dose: Not Given Lactulose (Cephulac) 20 gm PO BID [facility] Stop: 10/17/16 08:59 Last Admin: 08/29/16 09:07 Dose: Not Given Levetiracetam (Keppra) 500 mg PO BID [facility] Stop: 10/19/16 16:59 Last Admin: 08/29/16 09:16 Dose: Not Given Lorazepam (Ativan) 2 mg IVP Q2HR PRN; Protocol PRN Reason: Seizures Stop: 10/19/16 10:06 Metronidazole (Flagyl) 500 mg PO TID [facility] Stop: 08/31/16 21:01 Last Admin: 08/29/16 09:16 Dose: Not Given Miscellaneous (Clinical Monitoring) 1 ea MC DAILY PRN PRN Reason: RENAL Stop: 10/06/16 08:17 Miscellaneous (Probiotic Screen) 1 ea MC PRN PRN PRN Reason: PROTOCOL Stop: 10/11/16 14:12 Miscellaneous (Vancomycin Iv Per Pharmacy) 1 ea PRN PRN PRN Reason: PROTOCOL Stop: 10/22/16 11:55 Morphine Sulfate (Morphine) 2 mg IV Q4HR PRN PRN Reason: Pain (Moderate) Stop: 10/15/16 13:36 Last Admin: 08/29/16 00:20 Dose: 2 mg Pantoprazole Sodium (Protonix) 40 mg IVP BID [facility] Stop: 10/19/16 16:59 Last Admin: 08/29/16 09:03 Dose: 40 mg Sodium Bicarbonate (Sodium Bicarb) 50 meq IVP BID [facility] Stop: 10/13/16 16:59 Last Admin: 08/29/16 09:03 Dose: 50 meq General: Alert, Oriented x3, Cooperative, No acute distress HEENT: Atraumatic, PERRLA, EOMI Neck: Supple Cardiovascular: Regular rate, Normal S1, Normal S2 Lungs: Clear to auscultation Abdomen: Bowel sounds, Soft Neurological: Normal gait Psych/Mental Status: Mental status NL - Procedures Procedures: Procedures Procedure Code Date ARTERY-VEIN NONAUTOGRAFT 22589 06/22/16 BLOOD TRANSFUSION SERVICE 20054 06/22/16 BYPASS L BRACH ART TO UP ARM VEIN W NONAUT SUB, OPEN [id number] 06/22/16 FLUOROSCOPY OF SUP VENA CAVA USING [facility] CONTRAST, GUIDANCE [id number] 06/22/16 INSERTION OF INFUSION DEV INTO SUP VENA CAVA, PERC APPROACH [id number] 06/22/[address] CATHETER IN VEIN 38705 06/22/16 TRANSFUSE NONAUT RED BLOOD CELLS IN PERIPH VEIN, PERC [id number] 06/22/16 Assessment/Plan - Problem List Patient Problems: All Active Problems Anemia (Acute) D64.9 ESRD (end stage renal disease) (Acute) ESRD (end stage renal disease) on dialysis (Acute) N18.6, Z99.2 ESRD (end stage renal disease) on dialysis (Acute) N18.6, Z99.2 HYPOTENSION (Acute) HYPOXEMIA (Acute) MEDICAL EVALUATION PER DR FRY (Acute) funtional quadriperisis (Acute) septic shock (Acute) - Assessment Assessment: 1. Cellulitis of legs. 2. Lymphedema of legs. 3. CKD 5 on HD. 4. Morbid obesity. 5 anemia 6 gi bleed 7 psychosis - Plan Plan: dialysis iv antibiotics ltac eval tele status snif plan
--- NOTE | 2016-08-29 13:31 | Infectious Disease Prog Note ---
Infectious Disease Subjective - Review of Systems Service Date: 08/29/16 Subjective: There is no new change. There is no fever. Infectious Disease Objective - Results Result Diagrams: 08/28/16 07:40 08/28/16 07:40 Recent Labs: Laboratory Last Values WBC 10.4 Th/cmm (4.8-10.8) 08/28/16 07:40 RBC 3.60 Mil/cmm (4.30-5.70) L 08/28/16 07:40 Hgb 9.9 gm/dL (13.2-17.3) L 08/28/16 07:40 Hct 30.0 % (39.0-49.0) L 08/28/16 07:40 MCV 83.4 fl (80-99) 08/28/16 07:40 MCH 27.6 pg (26.0-30.0) 08/28/16 07:40 MCHC Differential 33.1 pg (28.0-36.0) 08/28/16 07:40 RDW 15.5 % (11.5-20.0) 08/28/16 07:40 Plt Count 83 Th/cmm (150-400) L 08/28/16 07:40 MPV 10.1 fl 08/28/16 07:40 Neutrophils % 56.8 % (40.0-80.0) 07/07/16 06:00 Band Neutrophils % 2 % (0-10) 08/28/16 07:40 Lymphocytes % 18.4 % (20.0-50.0) L 07/07/16 06:00 Monocytes % 13.8 % (2.0-10.0) H 07/07/16 06:00 Eosinophils % 11.0 % (0.0-5.0) H 07/07/16 06:00 Basophils % 0.0 % (0.0-2.0) 07/07/16 06:00 Neutrophils (Manual) 86 % (40-80) H 08/28/16 07:40 Lymphocytes 7 % (20-50) L 08/28/16 07:40 Monocytes 5 % (2-10) 08/28/16 07:40 Eosinophils 1 % (0-5) 08/18/16 05:18 Basophils 3 % (0-3) 08/04/16 08:33 Metamyelocytes 1 % (0-0) H 08/14/16 07:40 Myelocytes 1 % 07/14/16 16:00 Nucleated RBCs 1.0 % (0-0) H 08/15/16 09:30 Hypochromia 1+ 07/20/16 23:30 Platelet Estimate DECREASED PLATELETS (NORMAL) 08/28/16 07:40 Platelet Morphology NORMAL (NORMAL) 08/25/16 06:51 Polychromasia 1+ 07/20/16 23:30 Anisocytosis 1+ 08/25/16 06:51 Microcytosis 1+ 07/14/16 16:00 RBC Morph Micro Appear ABNORMAL (NORMAL) 08/25/16 06:51 PT 15.4 SECONDS (9.5-11.5) H 08/23/16 04:35 INR 1.45 (0.5-1.4) H 08/23/16 04:35 PTT (Actin FS) 37.7 SECONDS (26.0-38.0) 08/17/16 07:20 Specimen Source Arterial 08/20/16 08:15 Sample Site Right Radial 08/20/16 08:15 pH 7.33 (7.35-7.45) L 08/20/16 08:15 pCO2 55.0 mmHg (35.0-45.0) H 08/20/16 08:15 pO2 92.0 mmHg (80.0-100.0) 08/20/16 08:15 HCO3 26.5 mEq/L (20.0-26.0) H 08/20/16 08:15 Base Excess 2.0 mEq/L (-3.0-3.0) 08/20/16 08:15 O2 Saturation 97.0 % (92.0-100.0) 08/20/16 08:15 Estuardo Test POSITIVE 08/20/16 08:15 Vent Rate NA 08/20/16 08:15 Inspired O2 32 08/20/16 08:15 Tidal Volume NA 08/20/16 08:15 PEEP NA 08/20/16 08:15 Pressure (ins/psv/peep) NA 08/20/16 08:15 Critical Value CSILVA 08/20/16 08:15 Sodium 135 mEq/L (136-145) L 08/28/16 07:40 Potassium 3.9 mEq/L (3.5-5.1) 08/28/16 07:40 Chloride 101 mEq/L (98-107) 08/28/16 07:40 Carbon Dioxide 27.4 mEq/L (21.0-31.0) 08/28/16 07:40 Anion Gap 10.5 (7.0-16.0) 08/28/16 07:40 BUN 82 mg/dL (7-25) H* 08/28/16 07:40 Creatinine 5.3 mg/dL (0.7-1.3) H* 08/28/16 07:40 Est GFR ( Amer) 14.9 ml/min (>90) 08/28/16 07:40 Est GFR (Non-Af Amer) 12.3 ml/min 08/28/16 07:40 BUN/Creatinine Ratio 15.5 08/28/16 07:40 Glucose 114 mg/dL (70-105) H 08/28/16 07:40 POC Glucose 111 MG/DL (70 - 105) H 08/15/16 08:03 Hemoglobin A1c % 4.8 % (4.0-6.0) 08/13/16 06:04 Whole Bld Lactic Acid 1.54 mmol/L (0.60-1.99) 08/13/16 06:04 Calcium 8.4 mg/dL (8.6-10.3) L 08/28/16 07:40 Phosphorus 5.5 mg/dL (2.5-5.0) H 07/19/16 09:50 Magnesium 1.9 mg/dL (1.9-2.7) 08/04/16 05:45 Iron 42 ug/dL (38-169) 06/28/16 04:38 TIBC 269 ug/dL (250-450) 06/28/16 04:38 Iron Saturation 16 % (15-55) 06/28/16 04:38 Unsaturated IBC 227 ug/dL (111-343) 06/28/16 04:38 Ferritin 150 ng/mL (30-400) 06/26/16 08:30 Total Bilirubin 0.9 mg/dL (0.3-1.0) 08/25/16 06:51 Direct Bilirubin 0.70 mg/dL (0.0-0.2) H 06/28/16 04:38 GGTP 14 IU/L (0-65) 06/28/16 04:38 AST 9 U/L (13-39) L 08/25/16 06:51 ALT 7 U/L (7-52) 08/25/16 06:51 Alkaline Phosphatase 31 U/L (34-104) L 08/25/16 06:51 Ammonia 73 umol/L (16-53) H 08/12/16 05:19 Troponin I < 0.01 ng/mL (0.01-0.05) L 06/22/16 19:33 B-Natriuretic Peptide 668.0 pg/mL (5.0-100.0) H 06/22/16 19:33 Total Protein 6.8 gm/dL (6.0-8.3) 08/25/16 06:51 Albumin 2.5 gm/dL (4.2-5.5) L 08/25/16 06:51 Globulin 4.3 gm/dL 08/25/16 06:51 Albumin/Globulin Ratio 0.6 (1.0-1.8) L 08/25/16 06:51 Amylase 28 U/L (29-103) L 07/02/16 06:40 Lipase 31 U/L (11-82) 07/02/16 06:40 TSH 2.98 uIU/ml (0.34-5.60) 08/13/16 06:04 Urine Source CLEAN C 06/29/16 05:55 Urine Color YELLOW 06/29/16 05:55 Urine Clarity HAZY (CLEAR) 06/29/16 05:55 Urine pH 5.5 06/29/16 05:55 Ur Specific [place] 1.015 (1.005-1.030) 06/29/16 05:55 Urine Protein 30 mg/dL (NEGATIVE) H 06/29/16 05:55 Urine Glucose (UA) NEGATIVE mg/dL (NEGATIVE) 06/29/16 05:55 Urine Ketones NEGATIVE mg/dL (NEGATIVE) 06/29/16 05:55 Urine Blood NEGATIVE (NEGATIVE) 06/29/16 05:55 Urine Nitrate NEGATIVE (NEGATIVE) 06/29/16 05:55 Urine Bilirubin NEGATIVE (NEGATIVE) 06/29/16 05:55 Urine Urobilinogen 0.2 E.U./dL (0.2 - 1.0) 06/29/16 05:55 Ur Leukocyte Esterase TRACE (NEGATIVE) H 06/29/16 05:55 Urine RBC 0-2 /hpf (0-5) H 06/29/16 05:55 Urine WBC 6-10 /hpf (0-5) H 06/29/16 05:55 Ur Epithelial Cells FEW /lpf (FEW) 06/29/16 05:55 Urine Bacteria MANY /hpf (NONE SEEN) 06/29/16 05:55 Stool Occult Blood POSITIVE (NEGATIVE) 08/17/16 11:00 Stool Leukocyte NO WBC SEEN 08/17/16 11:00 Gentamicin Trough ug/ml (0.2-2.0) 08/12/16 05:19 Random Vancomycin 19.2 ug/mL (5.0-40.0) 08/26/16 07:56 RPR NONREACTIVE (NONREACTIVE) 06/22/16 19:33 Helicobacter pylori Ab NEGATIVE (NEGATIVE) 08/23/16 12:00 Hepatitis A IgM Ab Negative (Negative) 06/29/16 05:49 Hep Bs Antigen Negative (Negative) 06/29/16 05:49 Hep B Core IgM Ab Negative (Negative) 06/29/16 05:49 Hepatitis C Antibody >11.0 s/co ratio (0.0-0.9) H 06/29/16 05:49 Blood Type A POSITIVE 08/10/16 21:07 Antibody Screen NEGATIVE 08/10/16 21:07 Crossmatch See Detail 08/10/16 21:07 - Physical Exam Vitals and I&O: Vital Signs Temp 97.7 F 08/29/16 08:00 Pulse 116 08/29/16 08:00 Resp 16 08/29/16 11:17 BP 101/66 08/29/16 08:00 Pulse Ox 92 08/29/16 08:00 Intake & Output 08/28/16 08/29/16 08/29/16 18:59 06:59 18:59 Intake Total 1400 Balance 1400 Intake: Oral 1400 Other: Stool Characteristics Soft Soft Active Medications: Current Medications Acetaminophen (Tylenol) 650 mg PO Q6H PRN PRN Reason: temperature above 100F Stop: 09/28/16 16:14 Last Admin: 07/30/16 16:27 Dose: 650 mg Calamine/Phenol (Calmoseptine) 1 appl TP QID [facility] Stop: 10/14/16 12:59 Last Admin: 08/29/16 09:05 Dose: 1 appl Diphenhydramine HCl (Benadryl 50 Mg/Ml) 25 mg IVP Q6HR PRN PRN Reason: itching Stop: 10/11/16 03:12 Last Admin: 08/14/16 11:25 Dose: 25 mg Docusate Sodium (Colace) 100 mg PO Q12HR [facility] Stop: 09/16/16 08:59 Last Admin: 08/29/16 09:16 Dose: Not Given Fluconazole (Diflucan) 100 mg PO DAILY [facility] Stop: 10/23/16 08:59 Last Admin: 08/29/16 09:16 Dose: Not Given Hydrocortisone Sodium Succinate (Solu-Cortef) 50 mg IVP Q8H [facility] Stop: 10/09/16 15:59 Last Admin: 08/29/16 09:03 Dose: 50 mg Sodium Chloride (Nacl 0.9%) 1,000 mls @ 10 mls/hr IV .Q24H [facility] Stop: 10/15/16 15:01 Last Admin: 08/26/16 03:27 Dose: 10 mls/hr Lactobacillus Rhamnosus (Culturelle) 1 each PO DAILY [facility] Stop: 10/12/16 08:59 Last Admin: 08/29/16 09:16 Dose: Not Given Lactulose (Cephulac) 30 gm PO QID [facility] Stop: 10/28/16 12:59 Levetiracetam (Keppra) 500 mg PO BID [facility] Stop: 10/19/16 16:59 Last Admin: 08/29/16 09:16 Dose: Not Given Lorazepam (Ativan) 2 mg IVP Q2HR PRN; Protocol PRN Reason: Seizures Stop: 10/19/16 10:06 Metronidazole (Flagyl) 500 mg PO TID [facility] Stop: 08/31/16 21:01 Last Admin: 08/29/16 09:16 Dose: Not Given Miscellaneous (Clinical Monitoring) 1 ea MC DAILY PRN PRN Reason: RENAL Stop: 10/06/16 08:17 Miscellaneous (Probiotic Screen) 1 ea MC PRN PRN PRN Reason: PROTOCOL Stop: 10/11/16 14:12 Miscellaneous (Vancomycin Iv Per Pharmacy) 1 ea MC PRN PRN PRN Reason: PROTOCOL Stop: 10/22/16 11:55 Morphine Sulfate (Morphine) 2 mg IV Q4HR PRN PRN Reason: Pain (Moderate) Stop: 10/15/16 13:36 Last Admin: 08/29/16 00:20 Dose: 2 mg Pantoprazole Sodium (Protonix) 40 mg IVP BID [facility] Stop: 10/19/16 16:59 Last Admin: 08/29/16 09:03 Dose: 40 mg Sodium Bicarbonate (Sodium Bicarb) 50 meq IVP BID [facility] Stop: 10/13/16 16:59 Last Admin: 08/29/16 09:03 Dose: 50 meq Sorbitol (Sorbitol) 100 ml PO DAILY [facility] Stop: 10/28/16 12:14 General: no acute distress, other (Obese) HEENT: atraumatic, normocephalic, PERRLA, EOMI, moist mucous membrane Neck: supple, no thyromegaly, no lymphadenopathy Cardiovascular: S1S2, regular Lungs: clear to auscultation bilaterally, clear to percussion Abdomen: soft, no tender, no distended Extremities: no cyanosis, no clubbing, no edema Neurological: awake, alert, oriented Skin: intact - Procedures Procedures: Procedures Procedure Code Date ARTERY-VEIN NONAUTOGRAFT 27423 06/22/16 BLOOD TRANSFUSION SERVICE 05592 06/22/16 BYPASS L BRACH ART TO UP ARM VEIN W NONAUT SUB, OPEN [id number] 06/22/16 FLUOROSCOPY OF SUP VENA CAVA USING [facility] CONTRAST, GUIDANCE [id number] 06/22/16 INSERTION OF INFUSION DEV INTO SUP VENA CAVA, PERC APPROACH [id number] 06/22/[address] PLACE CATHETER IN VEIN 00019 06/22/16 TRANSFUSE NONAUT RED BLOOD CELLS IN PERIPH VEIN, PERC 07744L8 06/22/16 Infectious Disease Assmt/Plan - Problem List Patient Problems: All Active Problems Anemia (Acute) D64.9 ESRD (end stage renal disease) (Acute) ESRD (end stage renal disease) on dialysis (Acute) N18.6, Z99.2 ESRD (end stage renal disease) on dialysis (Acute) N18.6, Z99.2 HYPOTENSION (Acute) HYPOXEMIA (Acute) MEDICAL EVALUATION PER DR FRY (Acute) funtional quadriperisis (Acute) septic shock (Acute) - Assessment Assessment: 1. Septic shock. resolved. likely line sepsis. MRSA sepsis. 3/4 positive. 2. Pneumonia. 3. CKD 5 on HD. 4. Morbid obesity. 5. hep C. 6. Cellulitis of legs. improved. treated. 7. Lymphedema of legs. 8. CHF. 9. CDAC. 10. Maria C esophagitis. - Plan Plan: Continue vanco IV and flagyl. Continue Diflucan.
--- NOTE | 2016-08-29 13:54 | General Progress Note ---
Subjective - Review of Systems Service Date: 08/29/16 Subjective: awake, on NC, verbal Objective - Results Result Diagrams: 08/28/16 07:40 08/28/16 07:40 Recent Labs: Laboratory Last Values WBC 10.4 Th/cmm (4.8-10.8) 08/28/16 07:40 RBC 3.60 Mil/cmm (4.30-5.70) L 08/28/16 07:40 Hgb 9.9 gm/dL (13.2-17.3) L 08/28/16 07:40 Hct 30.0 % (39.0-49.0) L 08/28/16 07:40 MCV 83.4 fl (80-99) 08/28/16 07:40 MCH 27.6 pg (26.0-30.0) 08/28/16 07:40 MCHC Differential 33.1 pg (28.0-36.0) 08/28/16 07:40 RDW 15.5 % (11.5-20.0) 08/28/16 07:40 Plt Count 83 Th/cmm (150-400) L 08/28/16 07:40 MPV 10.1 fl 08/28/16 07:40 Neutrophils % 56.8 % (40.0-80.0) 07/07/16 06:00 Band Neutrophils % 2 % (0-10) 08/28/16 07:40 Lymphocytes % 18.4 % (20.0-50.0) L 07/07/16 06:00 Monocytes % 13.8 % (2.0-10.0) H 07/07/16 06:00 Eosinophils % 11.0 % (0.0-5.0) H 07/07/16 06:00 Basophils % 0.0 % (0.0-2.0) 07/07/16 06:00 Neutrophils (Manual) 86 % (40-80) H 08/28/16 07:40 Lymphocytes 7 % (20-50) L 08/28/16 07:40 Monocytes 5 % (2-10) 08/28/16 07:40 Eosinophils 1 % (0-5) 08/18/16 05:18 Basophils 3 % (0-3) 08/04/16 08:33 Metamyelocytes 1 % (0-0) H 08/14/16 07:40 Myelocytes 1 % 07/14/16 16:00 Nucleated RBCs 1.0 % (0-0) H 08/15/16 09:30 Hypochromia 1+ 07/20/16 23:30 Platelet Estimate DECREASED PLATELETS (NORMAL) 08/28/16 07:40 Platelet Morphology NORMAL (NORMAL) 08/25/16 06:51 Polychromasia 1+ 07/20/16 23:30 Anisocytosis 1+ 08/25/16 06:51 Microcytosis 1+ 07/14/16 16:00 RBC Morph Micro Appear ABNORMAL (NORMAL) 08/25/16 06:51 PT 15.4 SECONDS (9.5-11.5) H 08/23/16 04:35 INR 1.45 (0.5-1.4) H 08/23/16 04:35 PTT (Actin FS) 37.7 SECONDS (26.0-38.0) 08/17/16 07:20 Specimen Source Arterial 08/20/16 08:15 Sample Site Right Radial 08/20/16 08:15 pH 7.33 (7.35-7.45) L 08/20/16 08:15 pCO2 55.0 mmHg (35.0-45.0) H 08/20/16 08:15 pO2 92.0 mmHg (80.0-100.0) 08/20/16 08:15 HCO3 26.5 mEq/L (20.0-26.0) H 08/20/16 08:15 Base Excess 2.0 mEq/L (-3.0-3.0) 08/20/16 08:15 O2 Saturation 97.0 % (92.0-100.0) 08/20/16 08:15 Estuardo Test POSITIVE 08/20/16 08:15 Vent Rate NA 08/20/16 08:15 Inspired O2 32 08/20/16 08:15 Tidal Volume NA 08/20/16 08:15 PEEP NA 08/20/16 08:15 Pressure (ins/psv/peep) NA 08/20/16 08:15 Critical Value CSILVA 08/20/16 08:15 Sodium 135 mEq/L (136-145) L 08/28/16 07:40 Potassium 3.9 mEq/L (3.5-5.1) 08/28/16 07:40 Chloride 101 mEq/L (98-107) 08/28/16 07:40 Carbon Dioxide 27.4 mEq/L (21.0-31.0) 08/28/16 07:40 Anion Gap 10.5 (7.0-16.0) 08/28/16 07:40 BUN 82 mg/dL (7-25) H* 08/28/16 07:40 Creatinine 5.3 mg/dL (0.7-1.3) H* 08/28/16 07:40 Est GFR ( Amer) 14.9 ml/min (>90) 08/28/16 07:40 Est GFR (Non-Af Amer) 12.3 ml/min 08/28/16 07:40 BUN/Creatinine Ratio 15.5 08/28/16 07:40 Glucose 114 mg/dL (70-105) H 08/28/16 07:40 POC Glucose 111 MG/DL (70 - 105) H 08/15/16 08:03 Hemoglobin A1c % 4.8 % (4.0-6.0) 08/13/16 06:04 Whole Bld Lactic Acid 1.54 mmol/L (0.60-1.99) 08/13/16 06:04 Calcium 8.4 mg/dL (8.6-10.3) L 08/28/16 07:40 Phosphorus 5.5 mg/dL (2.5-5.0) H 07/19/16 09:50 Magnesium 1.9 mg/dL (1.9-2.7) 08/04/16 05:45 Iron 42 ug/dL (38-169) 06/28/16 04:38 TIBC 269 ug/dL (250-450) 06/28/16 04:38 Iron Saturation 16 % (15-55) 06/28/16 04:38 Unsaturated IBC 227 ug/dL (111-343) 06/28/16 04:38 Ferritin 150 ng/mL (30-400) 06/26/16 08:30 Total Bilirubin 0.9 mg/dL (0.3-1.0) 08/25/16 06:51 Direct Bilirubin 0.70 mg/dL (0.0-0.2) H 06/28/16 04:38 GGTP 14 IU/L (0-65) 06/28/16 04:38 AST 9 U/L (13-39) L 08/25/16 06:51 ALT 7 U/L (7-52) 08/25/16 06:51 Alkaline Phosphatase 31 U/L (34-104) L 08/25/16 06:51 Ammonia 73 umol/L (16-53) H 08/12/16 05:19 Troponin I < 0.01 ng/mL (0.01-0.05) L 06/22/16 19:33 B-Natriuretic Peptide 668.0 pg/mL (5.0-100.0) H 06/22/16 19:33 Total Protein 6.8 gm/dL (6.0-8.3) 08/25/16 06:51 Albumin 2.5 gm/dL (4.2-5.5) L 08/25/16 06:51 Globulin 4.3 gm/dL 08/25/16 06:51 Albumin/Globulin Ratio 0.6 (1.0-1.8) L 08/25/16 06:51 Amylase 28 U/L (29-103) L 07/02/16 06:40 Lipase 31 U/L (11-82) 07/02/16 06:40 TSH 2.98 uIU/ml (0.34-5.60) 08/13/16 06:04 Urine Source CLEAN C 06/29/16 05:55 Urine Color YELLOW 06/29/16 05:55 Urine Clarity HAZY (CLEAR) 06/29/16 05:55 Urine pH 5.5 06/29/16 05:55 Ur Specific [place] 1.015 (1.005-1.030) 06/29/16 05:55 Urine Protein 30 mg/dL (NEGATIVE) H 06/29/16 05:55 Urine Glucose (UA) NEGATIVE mg/dL (NEGATIVE) 06/29/16 05:55 Urine Ketones NEGATIVE mg/dL (NEGATIVE) 06/29/16 05:55 Urine Blood NEGATIVE (NEGATIVE) 06/29/16 05:55 Urine Nitrate NEGATIVE (NEGATIVE) 06/29/16 05:55 Urine Bilirubin NEGATIVE (NEGATIVE) 06/29/16 05:55 Urine Urobilinogen 0.2 E.U./dL (0.2 - 1.0) 06/29/16 05:55 Ur Leukocyte Esterase TRACE (NEGATIVE) H 06/29/16 05:55 Urine RBC 0-2 /hpf (0-5) H 06/29/16 05:55 Urine WBC 6-10 /hpf (0-5) H 06/29/16 05:55 Ur Epithelial Cells FEW /lpf (FEW) 06/29/16 05:55 Urine Bacteria MANY /hpf (NONE SEEN) 06/29/16 05:55 Stool Occult Blood POSITIVE (NEGATIVE) 08/17/16 11:00 Stool Leukocyte NO WBC SEEN 08/17/16 11:00 Gentamicin Trough ug/ml (0.2-2.0) 08/12/16 05:19 Random Vancomycin 19.2 ug/mL (5.0-40.0) 08/26/16 07:56 RPR NONREACTIVE (NONREACTIVE) 06/22/16 19:33 Helicobacter pylori Ab NEGATIVE (NEGATIVE) 08/23/16 12:00 Hepatitis A IgM Ab Negative (Negative) 06/29/16 05:49 Hep Bs Antigen Negative (Negative) 06/29/16 05:49 Hep B Core IgM Ab Negative (Negative) 06/29/16 05:49 Hepatitis C Antibody >11.0 s/co ratio (0.0-0.9) H 06/29/16 05:49 Blood Type A POSITIVE 08/10/16 21:07 Antibody Screen NEGATIVE 08/10/16 21:07 Crossmatch See Detail 08/10/16 21:07 - Physical Exam Vitals and I&O: Vital Signs Temp 97.7 F 08/29/16 08:00 Pulse 116 08/29/16 08:00 Resp 16 08/29/16 11:17 BP 101/66 08/29/16 08:00 Pulse Ox 92 08/29/16 08:00 Intake & Output 08/28/16 08/29/16 08/29/16 18:59 06:59 18:59 Intake Total 1400 Balance 1400 Intake: Oral 1400 Other: Stool Characteristics Soft Soft Active Medications: Current Medications Acetaminophen (Tylenol) 650 mg PO Q6H PRN PRN Reason: temperature above 100F Stop: 09/28/16 16:14 Last Admin: 07/30/16 16:27 Dose: 650 mg Calamine/Phenol (Calmoseptine) 1 appl TP QID [facility] Stop: 10/14/16 12:59 Last Admin: 08/29/16 09:05 Dose: 1 appl Diphenhydramine HCl (Benadryl 50 Mg/Ml) 25 mg IVP Q6HR PRN PRN Reason: itching Stop: 10/11/16 03:12 Last Admin: 08/14/16 11:25 Dose: 25 mg Docusate Sodium (Colace) 100 mg PO Q12HR [facility] Stop: 09/16/16 08:59 Last Admin: 08/29/16 09:16 Dose: Not Given Fluconazole (Diflucan) 100 mg PO DAILY [facility] Stop: 10/23/16 08:59 Last Admin: 08/29/16 09:16 Dose: Not Given Hydrocortisone Sodium Succinate (Solu-Cortef) 50 mg IVP Q8H [facility] Stop: 10/09/16 15:59 Last Admin: 08/29/16 09:03 Dose: 50 mg Sodium Chloride (Nacl 0.9%) 1,000 mls @ 10 mls/hr IV .Q24H [facility] Stop: 10/15/16 15:01 Last Admin: 08/26/16 03:27 Dose: 10 mls/hr Lactobacillus Rhamnosus (Culturelle) 1 each PO DAILY [facility] Stop: 10/12/16 08:59 Last Admin: 08/29/16 09:16 Dose: Not Given Lactulose (Cephulac) 30 gm PO QID [facility] Stop: 10/28/16 12:59 Levetiracetam (Keppra) 500 mg PO BID [facility] Stop: 10/19/16 16:59 Last Admin: 08/29/16 09:16 Dose: Not Given Lorazepam (Ativan) 2 mg IVP Q2HR PRN; Protocol PRN Reason: Seizures Stop: 10/19/16 10:06 Metronidazole (Flagyl) 500 mg PO TID [facility] Stop: 08/31/16 21:01 Last Admin: 08/29/16 09:16 Dose: Not Given Miscellaneous (Clinical Monitoring) 1 ea MC DAILY PRN PRN Reason: RENAL Stop: 10/06/16 08:17 Miscellaneous (Probiotic Screen) 1 ea MC PRN PRN PRN Reason: PROTOCOL Stop: 10/11/16 14:12 Miscellaneous (Vancomycin Iv Per Pharmacy) 1 ea PRN PRN PRN Reason: PROTOCOL Stop: 10/22/16 11:55 Morphine Sulfate (Morphine) 2 mg IV Q4HR PRN PRN Reason: Pain (Moderate) Stop: 10/15/16 13:36 Last Admin: 08/29/16 00:20 Dose: 2 mg Pantoprazole Sodium (Protonix) 40 mg IVP BID [facility] Stop: 10/19/16 16:59 Last Admin: 08/29/16 09:03 Dose: 40 mg Sodium Bicarbonate (Sodium Bicarb) 50 meq IVP BID [facility] Stop: 10/13/16 16:59 Last Admin: 08/29/16 09:03 Dose: 50 meq Sorbitol (Sorbitol) 100 ml PO DAILY [facility] Stop: 10/28/16 12:14 General: Alert, No acute distress HEENT: Atraumatic, Mucous membr. moist/pink Neck: Supple, +2 carotid pulse wo bruit Cardiovascular: Regular rate, Normal S1, Normal S2 Lungs: Other (scattered rhonchi) Abdomen: Bowel sounds, Soft Extremities: Edema ((+) 3 bipedal edema) Neurological: Sensation intact Skin: no Rash - Procedures Procedures: Procedures Procedure Code Date ARTERY-VEIN NONAUTOGRAFT 44999 06/22/16 BLOOD TRANSFUSION SERVICE 24408 06/22/16 BYPASS L BRACH ART TO UP ARM VEIN W NONAUT SUB, OPEN [id number] 06/22/16 FLUOROSCOPY OF SUP VENA CAVA USING [facility] CONTRAST, GUIDANCE [id number] 06/22/16 INSERTION OF INFUSION DEV INTO SUP VENA CAVA, PERC APPROACH [id number] 06/22/[address] CATHETER IN VEIN 10464 06/22/16 TRANSFUSE NONAUT RED BLOOD CELLS IN PERIPH VEIN, PERC [id number] 06/22/16 Assessment/Plan - Problem List Patient Problems: All Active Problems Anemia (Acute) D64.9 ESRD (end stage renal disease) (Acute) ESRD (end stage renal disease) on dialysis (Acute) N18.6, Z99.2 ESRD (end stage renal disease) on dialysis (Acute) N18.6, Z99.2 HYPOTENSION (Acute) HYPOXEMIA (Acute) MEDICAL EVALUATION PER DR FRY (Acute) funtional quadriperisis (Acute) septic shock (Acute) - Assessment Assessment: septic shock (better) esrd on hd persistent cellulitis b/l lower ext acute on chronic anemia possible gi bleed ohs chronic a. fib hypothyroid anasarca functional quadriplegia chronic venous stasis dermatitis acute decomp psychosis s/p left avg G (+) cocci in clusters septicemia new onset seizure activity Candidal Esophagitis, Antral gastritis - Plan Plan: Lab - Result Diagrams 07/19/16 09:50 Lab - Result Diagrams 07/22/16 05:21 Lab - Result Diagrams 07/24/16 05:00 Lab - Result Diagrams Lab - Result Diagrams 08/04/16 08:33 Lab - Result Diagrams 08/05/16 05:00 08/04/16 05:45 08/04/16 05:45 07/28/16 05:30 07/28/16 05:30 07/24/16 05:00 07/20/16 05:50 07/19/16 09:50 hgb/hct remain stable @ 9.9/30 culture grew G (+) cocci, WBC down to 10.4 continue ABx transfuse as necessary f/u electrolytes, cbc new right Anton cath new onset seiure activity schedule for HD today persistent anasarca, will dialyze 4x/week Lab - Result Diagrams 07/19/16 09:50 07/20/16 05:50 Lab - Result Diagrams 07/21/16 06:16 07/20/16 05:50 Lab - Result Diagrams 07/26/16 11:05 07/24/16 05:00 Lab - Result Diagrams 07/29/16 05:55 07/28/16 05:30 Lab - Result Diagrams 08/12/16 05:19 08/12/16 05:19 Lab - Result Diagrams 08/17/16 07:20 08/17/16 07:20 Lab - Result Diagrams 08/25/16 06:51 08/25/16 06:51
[2016-08-30] MEDS: Lactobacillus Rhamnosus 10 Billion CFU Capsule PO SCH (09:53)
[2016-08-30] MEDS: Venelex 60gm Tube TP SCH (09:53)
[2016-08-30] MEDS: Lactulose 10 Gm/15 mL 30mL UDC PO SCH ×4 (09:54→20:14)
[2016-08-30] MEDS: Hydrocortisone Sodium Succ 100 mg Vial IVP SCH ×2 (09:58→17:10)
--- NOTE | 2016-08-30 12:04 | Infectious Disease Prog Note ---
Infectious Disease Subjective - Review of Systems Service Date: 08/30/16 Subjective: There is no new change. There is no fever. Infectious Disease Objective - Results Result Diagrams: 08/28/16 07:40 08/28/16 07:40 Recent Labs: Laboratory Last Values WBC 10.4 Th/cmm (4.8-10.8) 08/28/16 07:40 RBC 3.60 Mil/cmm (4.30-5.70) L 08/28/16 07:40 Hgb 9.9 gm/dL (13.2-17.3) L 08/28/16 07:40 Hct 30.0 % (39.0-49.0) L 08/28/16 07:40 MCV 83.4 fl (80-99) 08/28/16 07:40 MCH 27.6 pg (26.0-30.0) 08/28/16 07:40 MCHC Differential 33.1 pg (28.0-36.0) 08/28/16 07:40 RDW 15.5 % (11.5-20.0) 08/28/16 07:40 Plt Count 83 Th/cmm (150-400) L 08/28/16 07:40 MPV 10.1 fl 08/28/16 07:40 Neutrophils % 56.8 % (40.0-80.0) 07/07/16 06:00 Band Neutrophils % 2 % (0-10) 08/28/16 07:40 Lymphocytes % 18.4 % (20.0-50.0) L 07/07/16 06:00 Monocytes % 13.8 % (2.0-10.0) H 07/07/16 06:00 Eosinophils % 11.0 % (0.0-5.0) H 07/07/16 06:00 Basophils % 0.0 % (0.0-2.0) 07/07/16 06:00 Neutrophils (Manual) 86 % (40-80) H 08/28/16 07:40 Lymphocytes 7 % (20-50) L 08/28/16 07:40 Monocytes 5 % (2-10) 08/28/16 07:40 Eosinophils 1 % (0-5) 08/18/16 05:18 Basophils 3 % (0-3) 08/04/16 08:33 Metamyelocytes 1 % (0-0) H 08/14/16 07:40 Myelocytes 1 % 07/14/16 16:00 Nucleated RBCs 1.0 % (0-0) H 08/15/16 09:30 Hypochromia 1+ 07/20/16 23:30 Platelet Estimate DECREASED PLATELETS (NORMAL) 08/28/16 07:40 Platelet Morphology NORMAL (NORMAL) 08/25/16 06:51 Polychromasia 1+ 07/20/16 23:30 Anisocytosis 1+ 08/25/16 06:51 Microcytosis 1+ 07/14/16 16:00 RBC Morph Micro Appear ABNORMAL (NORMAL) 08/25/16 06:51 PT 15.4 SECONDS (9.5-11.5) H 08/23/16 04:35 INR 1.45 (0.5-1.4) H 08/23/16 04:35 PTT (Actin FS) 37.7 SECONDS (26.0-38.0) 08/17/16 07:20 Specimen Source Arterial 08/20/16 08:15 Sample Site Right Radial 08/20/16 08:15 pH 7.33 (7.35-7.45) L 08/20/16 08:15 pCO2 55.0 mmHg (35.0-45.0) H 08/20/16 08:15 pO2 92.0 mmHg (80.0-100.0) 08/20/16 08:15 HCO3 26.5 mEq/L (20.0-26.0) H 08/20/16 08:15 Base Excess 2.0 mEq/L (-3.0-3.0) 08/20/16 08:15 O2 Saturation 97.0 % (92.0-100.0) 08/20/16 08:15 Estuardo Test POSITIVE 08/20/16 08:15 Vent Rate NA 08/20/16 08:15 Inspired O2 32 08/20/16 08:15 Tidal Volume NA 08/20/16 08:15 PEEP NA 08/20/16 08:15 Pressure (ins/psv/peep) NA 08/20/16 08:15 Critical Value CSILVA 08/20/16 08:15 Sodium 135 mEq/L (136-145) L 08/28/16 07:40 Potassium 3.9 mEq/L (3.5-5.1) 08/28/16 07:40 Chloride 101 mEq/L (98-107) 08/28/16 07:40 Carbon Dioxide 27.4 mEq/L (21.0-31.0) 08/28/16 07:40 Anion Gap 10.5 (7.0-16.0) 08/28/16 07:40 BUN 82 mg/dL (7-25) H* 08/28/16 07:40 Creatinine 5.3 mg/dL (0.7-1.3) H* 08/28/16 07:40 Est GFR ( Amer) 14.9 ml/min (>90) 08/28/16 07:40 Est GFR (Non-Af Amer) 12.3 ml/min 08/28/16 07:40 BUN/Creatinine Ratio 15.5 08/28/16 07:40 Glucose 114 mg/dL (70-105) H 08/28/16 07:40 POC Glucose 111 MG/DL (70 - 105) H 08/15/16 08:03 Hemoglobin A1c % 4.8 % (4.0-6.0) 08/13/16 06:04 Whole Bld Lactic Acid 1.54 mmol/L (0.60-1.99) 08/13/16 06:04 Calcium 8.4 mg/dL (8.6-10.3) L 08/28/16 07:40 Phosphorus 5.5 mg/dL (2.5-5.0) H 07/19/16 09:50 Magnesium 1.9 mg/dL (1.9-2.7) 08/04/16 05:45 Iron 42 ug/dL (38-169) 06/28/16 04:38 TIBC 269 ug/dL (250-450) 06/28/16 04:38 Iron Saturation 16 % (15-55) 06/28/16 04:38 Unsaturated IBC 227 ug/dL (111-343) 06/28/16 04:38 Ferritin 150 ng/mL (30-400) 06/26/16 08:30 Total Bilirubin 0.9 mg/dL (0.3-1.0) 08/25/16 06:51 Direct Bilirubin 0.70 mg/dL (0.0-0.2) H 06/28/16 04:38 GGTP 14 IU/L (0-65) 06/28/16 04:38 AST 9 U/L (13-39) L 08/25/16 06:51 ALT 7 U/L (7-52) 08/25/16 06:51 Alkaline Phosphatase 31 U/L (34-104) L 08/25/16 06:51 Ammonia 73 umol/L (16-53) H 08/12/16 05:19 Troponin I < 0.01 ng/mL (0.01-0.05) L 06/22/16 19:33 B-Natriuretic Peptide 668.0 pg/mL (5.0-100.0) H 06/22/16 19:33 Total Protein 6.8 gm/dL (6.0-8.3) 08/25/16 06:51 Albumin 2.5 gm/dL (4.2-5.5) L 08/25/16 06:51 Globulin 4.3 gm/dL 08/25/16 06:51 Albumin/Globulin Ratio 0.6 (1.0-1.8) L 08/25/16 06:51 Amylase 28 U/L (29-103) L 07/02/16 06:40 Lipase 31 U/L (11-82) 07/02/16 06:40 TSH 2.98 uIU/ml (0.34-5.60) 08/13/16 06:04 Urine Source CLEAN C 06/29/16 05:55 Urine Color YELLOW 06/29/16 05:55 Urine Clarity HAZY (CLEAR) 06/29/16 05:55 Urine pH 5.5 06/29/16 05:55 Ur Specific [place] 1.015 (1.005-1.030) 06/29/16 05:55 Urine Protein 30 mg/dL (NEGATIVE) H 06/29/16 05:55 Urine Glucose (UA) NEGATIVE mg/dL (NEGATIVE) 06/29/16 05:55 Urine Ketones NEGATIVE mg/dL (NEGATIVE) 06/29/16 05:55 Urine Blood NEGATIVE (NEGATIVE) 06/29/16 05:55 Urine Nitrate NEGATIVE (NEGATIVE) 06/29/16 05:55 Urine Bilirubin NEGATIVE (NEGATIVE) 06/29/16 05:55 Urine Urobilinogen 0.2 E.U./dL (0.2 - 1.0) 06/29/16 05:55 Ur Leukocyte Esterase TRACE (NEGATIVE) H 06/29/16 05:55 Urine RBC 0-2 /hpf (0-5) H 06/29/16 05:55 Urine WBC 6-10 /hpf (0-5) H 06/29/16 05:55 Ur Epithelial Cells FEW /lpf (FEW) 06/29/16 05:55 Urine Bacteria MANY /hpf (NONE SEEN) 06/29/16 05:55 Stool Occult Blood POSITIVE (NEGATIVE) 08/17/16 11:00 Stool Leukocyte NO WBC SEEN 08/17/16 11:00 Gentamicin Trough ug/ml (0.2-2.0) 08/12/16 05:19 Random Vancomycin 19.2 ug/mL (5.0-40.0) 08/26/16 07:56 RPR NONREACTIVE (NONREACTIVE) 06/22/16 19:33 Helicobacter pylori Ab NEGATIVE (NEGATIVE) 08/23/16 12:00 Hepatitis A IgM Ab Negative (Negative) 06/29/16 05:49 Hep Bs Antigen Negative (Negative) 06/29/16 05:49 Hep B Core IgM Ab Negative (Negative) 06/29/16 05:49 Hepatitis C Antibody >11.0 s/co ratio (0.0-0.9) H 06/29/16 05:49 Blood Type A POSITIVE 08/10/16 21:07 Antibody Screen NEGATIVE 08/10/16 21:07 Crossmatch See Detail 08/10/16 21:07 - Physical Exam Vitals and I&O: Vital Signs Temp 97.9 F 08/30/16 08:00 Pulse 64 08/30/16 08:00 Resp 121 08/30/16 08:00 BP 93/56 08/30/16 08:00 Pulse Ox 18 08/30/16 08:00 Intake & Output 08/29/16 08/30/16 08/30/16 18:59 06:59 18:59 Intake Total 1000 300 Output Total 2 Balance 1000 298 Intake: Oral 1000 300 Output: Stool 2 Other: # Voids 1 Active Medications: Current Medications Acetaminophen (Tylenol) 650 mg PO Q6H PRN PRN Reason: temperature above 100F Stop: 09/28/16 16:14 Last Admin: 07/30/16 16:27 Dose: 650 mg Calamine/Phenol (Calmoseptine) 1 appl TP QID [facility] Stop: 10/14/16 12:59 Last Admin: 08/29/16 21:26 Dose: 1 appl Diphenhydramine HCl (Benadryl 50 Mg/Ml) 25 mg IVP Q6HR PRN PRN Reason: itching Stop: 10/11/16 03:12 Last Admin: 08/14/16 11:25 Dose: 25 mg Docusate Sodium (Colace) 100 mg PO Q12HR [facility] Stop: 09/16/16 08:59 Last Admin: 08/30/16 09:53 Dose: Not Given Fluconazole (Diflucan) 100 mg PO DAILY [facility] Stop: 10/23/16 08:59 Last Admin: 08/30/16 09:53 Dose: 100 mg Hydrocortisone Sodium Succinate (Solu-Cortef) 50 mg IVP Q8H [facility] Stop: 10/09/16 15:59 Last Admin: 08/30/16 09:58 Dose: 50 mg Sodium Chloride (Nacl 0.9%) 1,000 mls @ 10 mls/hr IV .Q24H [facility] Stop: 10/15/16 15:01 Last Admin: 08/26/16 03:27 Dose: 10 mls/hr Lactobacillus Rhamnosus (Culturelle) 1 each PO DAILY [facility] Stop: 10/12/16 08:59 Last Admin: 08/30/16 09:53 Dose: 1 each Lactulose (Cephulac) 30 gm PO QID [facility] Stop: 10/28/16 12:59 Last Admin: 08/30/16 09:54 Dose: Not Given Levetiracetam (Keppra) 500 mg PO BID [facility] Stop: 10/19/16 16:59 Last Admin: 08/30/16 09:53 Dose: 500 mg Lorazepam (Ativan) 2 mg IVP Q2HR PRN; Protocol PRN Reason: Seizures Stop: 10/19/16 10:06 Metronidazole (Flagyl) 500 mg PO TID [facility] Stop: 08/31/16 21:01 Last Admin: 08/30/16 09:56 Dose: 500 mg Miscellaneous (Clinical Monitoring) 1 ea [facility] DAILY PRN PRN Reason: RENAL Stop: 10/06/16 08:17 Miscellaneous (Probiotic Screen) 1 ea [facility] PRN PRN PRN Reason: PROTOCOL Stop: 10/11/16 14:12 Miscellaneous (Vancomycin Iv Per Pharmacy) 1 ea [facility] PRN PRN PRN Reason: PROTOCOL Stop: 10/22/16 11:55 Morphine Sulfate (Morphine) 2 mg IV Q4HR PRN PRN Reason: Pain (Moderate) Stop: 10/15/16 13:36 Last Admin: 08/29/16 22:20 Dose: 2 mg Pantoprazole Sodium (Protonix) 40 mg IVP BID [facility] Stop: 10/19/16 16:59 Last Admin: 08/30/16 09:56 Dose: 40 mg Sodium Bicarbonate (Sodium Bicarb) 50 meq IVP BID [facility] Stop: 10/13/16 16:59 Last Admin: 08/29/16 17:07 Dose: 50 meq Sorbitol (Sorbitol) 100 ml PO DAILY [facility] Stop: 10/28/16 12:14 Last Admin: 08/30/16 09:56 Dose: Not Given General: no acute distress, other (obese) HEENT: atraumatic, normocephalic, PERRLA, EOMI Neck: supple, thyromegaly Cardiovascular: S1S2, regular Lungs: clear to auscultation bilaterally, clear to percussion Abdomen: soft, no tender Extremities: no cyanosis, no clubbing, no edema Neurological: awake, alert, oriented - Procedures Procedures: Procedures Procedure Code Date ARTERY-VEIN NONAUTOGRAFT 25834 06/22/16 BLOOD TRANSFUSION SERVICE 83189 06/22/16 BYPASS L BRACH ART TO UP ARM VEIN W NONAUT SUB, OPEN [id number] 06/22/16 FLUOROSCOPY OF SUP VENA CAVA USING [facility] CONTRAST, GUIDANCE [id number] 06/22/16 INSERTION OF INFUSION DEV INTO SUP VENA CAVA, PERC APPROACH [id number] 06/22/16 PLACE CATHETER IN VEIN 64086 06/22/16 TRANSFUSE NONAUT RED BLOOD CELLS IN PERIPH VEIN, PERC [id number] 06/22/16 Infectious Disease Assmt/Plan - Problem List Patient Problems: All Active Problems Anemia (Acute) D64.9 ESRD (end stage renal disease) (Acute) ESRD (end stage renal disease) on dialysis (Acute) N18.6, Z99.2 ESRD (end stage renal disease) on dialysis (Acute) N18.6, Z99.2 HYPOTENSION (Acute) HYPOXEMIA (Acute) MEDICAL EVALUATION PER DR FRY (Acute) funtional quadriperisis (Acute) septic shock (Acute) - Assessment Assessment: 1. Septic shock. resolved. likely line sepsis. MRSA sepsis. 3/4 positive. 2. Pneumonia. 3. CKD 5 on HD. 4. Morbid obesity. 5. hep C. 6. Cellulitis of legs. improved. treated. 7. Lymphedema of legs. 8. CHF. 9. CDAC. 10. Maria C esophagitis. - Plan Plan: Continue vanco IV and flagyl. Continue Diflucan.
[2016-08-30] MEDS: Morphine Sulfate 2 mg/mL 1mL Syr IV PRN ×2 (12:40→17:15)
[2016-08-30] MEDS: Sodium Chloride 0.9% 1,000 ML IV SCH (12:44)
[2016-08-30] MEDS: Sodium Bicarbonate 8.4% 50mEq PFS IVP SCH ×3 (12:52→17:40)
--- NOTE | 2016-08-30 14:19 | General Progress Note ---
Subjective - Review of Systems Events since last encounter: No acute distress Subjective: pt is sob on bipap c/o weakness getting better Objective - Results Result Diagrams: 08/28/16 07:40 08/28/16 07:40 Recent Labs: Laboratory Last Values WBC 10.4 Th/cmm (4.8-10.8) 08/28/16 07:40 RBC 3.60 Mil/cmm (4.30-5.70) L 08/28/16 07:40 Hgb 9.9 gm/dL (13.2-17.3) L 08/28/16 07:40 Hct 30.0 % (39.0-49.0) L 08/28/16 07:40 MCV 83.4 fl (80-99) 08/28/16 07:40 MCH 27.6 pg (26.0-30.0) 08/28/16 07:40 MCHC Differential 33.1 pg (28.0-36.0) 08/28/16 07:40 RDW 15.5 % (11.5-20.0) 08/28/16 07:40 Plt Count 83 Th/cmm (150-400) L 08/28/16 07:40 MPV 10.1 fl 08/28/16 07:40 Neutrophils % 56.8 % (40.0-80.0) 07/07/16 06:00 Band Neutrophils % 2 % (0-10) 08/28/16 07:40 Lymphocytes % 18.4 % (20.0-50.0) L 07/07/16 06:00 Monocytes % 13.8 % (2.0-10.0) H 07/07/16 06:00 Eosinophils % 11.0 % (0.0-5.0) H 07/07/16 06:00 Basophils % 0.0 % (0.0-2.0) 07/07/16 06:00 Neutrophils (Manual) 86 % (40-80) H 08/28/16 07:40 Lymphocytes 7 % (20-50) L 08/28/16 07:40 Monocytes 5 % (2-10) 08/28/16 07:40 Eosinophils 1 % (0-5) 08/18/16 05:18 Basophils 3 % (0-3) 08/04/16 08:33 Metamyelocytes 1 % (0-0) H 08/14/16 07:40 Myelocytes 1 % 07/14/16 16:00 Nucleated RBCs 1.0 % (0-0) H 08/15/16 09:30 Hypochromia 1+ 07/20/16 23:30 Platelet Estimate DECREASED PLATELETS (NORMAL) 08/28/16 07:40 Platelet Morphology NORMAL (NORMAL) 08/25/16 06:51 Polychromasia 1+ 07/20/16 23:30 Anisocytosis 1+ 08/25/16 06:51 Microcytosis 1+ 07/14/16 16:00 RBC Morph Micro Appear ABNORMAL (NORMAL) 08/25/16 06:51 PT 15.4 SECONDS (9.5-11.5) H 08/23/16 04:35 INR 1.45 (0.5-1.4) H 08/23/16 04:35 PTT (Actin FS) 37.7 SECONDS (26.0-38.0) 08/17/16 07:20 Specimen Source Arterial 08/20/16 08:15 Sample Site Right Radial 08/20/16 08:15 pH 7.33 (7.35-7.45) L 08/20/16 08:15 pCO2 55.0 mmHg (35.0-45.0) H 08/20/16 08:15 pO2 92.0 mmHg (80.0-100.0) 08/20/16 08:15 HCO3 26.5 mEq/L (20.0-26.0) H 08/20/16 08:15 Base Excess 2.0 mEq/L (-3.0-3.0) 08/20/16 08:15 O2 Saturation 97.0 % (92.0-100.0) 08/20/16 08:15 Estuardo Test POSITIVE 08/20/16 08:15 Vent Rate NA 08/20/16 08:15 Inspired O2 32 08/20/16 08:15 Tidal Volume NA 08/20/16 08:15 PEEP NA 08/20/16 08:15 Pressure (ins/psv/peep) NA 08/20/16 08:15 Critical Value CSILVA 08/20/16 08:15 Sodium 135 mEq/L (136-145) L 08/28/16 07:40 Potassium 3.9 mEq/L (3.5-5.1) 08/28/16 07:40 Chloride 101 mEq/L (98-107) 08/28/16 07:40 Carbon Dioxide 27.4 mEq/L (21.0-31.0) 08/28/16 07:40 Anion Gap 10.5 (7.0-16.0) 08/28/16 07:40 BUN 82 mg/dL (7-25) H* 08/28/16 07:40 Creatinine 5.3 mg/dL (0.7-1.3) H* 08/28/16 07:40 Est GFR ( Amer) 14.9 ml/min (>90) 08/28/16 07:40 Est GFR (Non-Af Amer) 12.3 ml/min 08/28/16 07:40 BUN/Creatinine Ratio 15.5 08/28/16 07:40 Glucose 114 mg/dL (70-105) H 08/28/16 07:40 POC Glucose 111 MG/DL (70 - 105) H 08/15/16 08:03 Hemoglobin A1c % 4.8 % (4.0-6.0) 08/13/16 06:04 Whole Bld Lactic Acid 1.54 mmol/L (0.60-1.99) 08/13/16 06:04 Calcium 8.4 mg/dL (8.6-10.3) L 08/28/16 07:40 Phosphorus 5.5 mg/dL (2.5-5.0) H 07/19/16 09:50 Magnesium 1.9 mg/dL (1.9-2.7) 08/04/16 05:45 Iron 42 ug/dL (38-169) 06/28/16 04:38 TIBC 269 ug/dL (250-450) 06/28/16 04:38 Iron Saturation 16 % (15-55) 06/28/16 04:38 Unsaturated IBC 227 ug/dL (111-343) 06/28/16 04:38 Ferritin 150 ng/mL (30-400) 06/26/16 08:30 Total Bilirubin 0.9 mg/dL (0.3-1.0) 08/25/16 06:51 Direct Bilirubin 0.70 mg/dL (0.0-0.2) H 06/28/16 04:38 GGTP 14 IU/L (0-65) 06/28/16 04:38 AST 9 U/L (13-39) L 08/25/16 06:51 ALT 7 U/L (7-52) 08/25/16 06:51 Alkaline Phosphatase 31 U/L (34-104) L 08/25/16 06:51 Ammonia 73 umol/L (16-53) H 08/12/16 05:19 Troponin I < 0.01 ng/mL (0.01-0.05) L 06/22/16 19:33 B-Natriuretic Peptide 668.0 pg/mL (5.0-100.0) H 06/22/16 19:33 Total Protein 6.8 gm/dL (6.0-8.3) 08/25/16 06:51 Albumin 2.5 gm/dL (4.2-5.5) L 08/25/16 06:51 Globulin 4.3 gm/dL 08/25/16 06:51 Albumin/Globulin Ratio 0.6 (1.0-1.8) L 08/25/16 06:51 Amylase 28 U/L (29-103) L 07/02/16 06:40 Lipase 31 U/L (11-82) 07/02/16 06:40 TSH 2.98 uIU/ml (0.34-5.60) 08/13/16 06:04 Urine Source CLEAN C 06/29/16 05:55 Urine Color YELLOW 06/29/16 05:55 Urine Clarity HAZY (CLEAR) 06/29/16 05:55 Urine pH 5.5 06/29/16 05:55 Ur Specific [place] 1.015 (1.005-1.030) 06/29/16 05:55 Urine Protein 30 mg/dL (NEGATIVE) H 06/29/16 05:55 Urine Glucose (UA) NEGATIVE mg/dL (NEGATIVE) 06/29/16 05:55 Urine Ketones NEGATIVE mg/dL (NEGATIVE) 06/29/16 05:55 Urine Blood NEGATIVE (NEGATIVE) 06/29/16 05:55 Urine Nitrate NEGATIVE (NEGATIVE) 06/29/16 05:55 Urine Bilirubin NEGATIVE (NEGATIVE) 06/29/16 05:55 Urine Urobilinogen 0.2 E.U./dL (0.2 - 1.0) 06/29/16 05:55 Ur Leukocyte Esterase TRACE (NEGATIVE) H 06/29/16 05:55 Urine RBC 0-2 /hpf (0-5) H 06/29/16 05:55 Urine WBC 6-10 /hpf (0-5) H 06/29/16 05:55 Ur Epithelial Cells FEW /lpf (FEW) 06/29/16 05:55 Urine Bacteria MANY /hpf (NONE SEEN) 06/29/16 05:55 Stool Occult Blood POSITIVE (NEGATIVE) 08/17/16 11:00 Stool Leukocyte NO WBC SEEN 08/17/16 11:00 Gentamicin Trough ug/ml (0.2-2.0) 08/12/16 05:19 Random Vancomycin 19.2 ug/mL (5.0-40.0) 08/26/16 07:56 RPR NONREACTIVE (NONREACTIVE) 06/22/16 19:33 Helicobacter pylori Ab NEGATIVE (NEGATIVE) 08/23/16 12:00 Hepatitis A IgM Ab Negative (Negative) 06/29/16 05:49 Hep Bs Antigen Negative (Negative) 06/29/16 05:49 Hep B Core IgM Ab Negative (Negative) 06/29/16 05:49 Hepatitis C Antibody >11.0 s/co ratio (0.0-0.9) H 06/29/16 05:49 Blood Type A POSITIVE 08/10/16 21:07 Antibody Screen NEGATIVE 08/10/16 21:07 Crossmatch See Detail 08/10/16 21:07 - Physical Exam Vitals and I&O: Vital Signs Temp 97.9 F 08/30/16 12:00 Pulse 110 08/30/16 12:00 Resp 18 08/30/16 12:00 BP 109/63 08/30/16 12:00 Pulse Ox 100 08/30/16 12:00 Intake & Output 08/29/16 08/30/16 08/30/16 18:59 06:59 18:59 Intake Total 1810 055 2333 Output Total 2 Balance 2505 611 1115 Intake: Intake, IV Amount 1000 Sodium Chloride 0.9% 1, 1000 000 ml @ 10 mls/hr IV . Q24H [facility] Rx#:[id number] Oral 1000 300 Output: Stool 2 Other: # Voids 1 Active Medications: Current Medications Acetaminophen (Tylenol) 650 mg PO Q6H PRN PRN Reason: temperature above 100F Stop: 09/28/16 16:14 Last Admin: 07/30/16 16:27 Dose: 650 mg Calamine/Phenol (Calmoseptine) 1 appl TP QID [facility] Stop: 10/14/16 12:59 Last Admin: 08/29/16 21:26 Dose: 1 appl Diphenhydramine HCl (Benadryl 50 Mg/Ml) 25 mg IVP Q6HR PRN PRN Reason: itching Stop: 10/11/16 03:12 Last Admin: 08/14/16 11:25 Dose: 25 mg Docusate Sodium (Colace) 100 mg PO Q12HR [facility] Stop: 09/16/16 08:59 Last Admin: 08/30/16 09:53 Dose: Not Given Fluconazole (Diflucan) 100 mg PO DAILY [facility] Stop: 10/23/16 08:59 Last Admin: 08/30/16 09:53 Dose: 100 mg Hydrocortisone Sodium Succinate (Solu-Cortef) 50 mg IVP Q8H [facility] Stop: 10/09/16 15:59 Last Admin: 08/30/16 09:58 Dose: 50 mg Sodium Chloride (Nacl 0.9%) 1,000 mls @ 10 mls/hr IV .Q24H [facility] Stop: 10/15/16 15:01 Last Admin: 08/30/16 12:44 Dose: 10 mls/hr Lactobacillus Rhamnosus (Culturelle) 1 each PO DAILY [facility] Stop: 10/12/16 08:59 Last Admin: 08/30/16 09:53 Dose: 1 each Lactulose (Cephulac) 30 gm PO QID [facility] Stop: 10/28/16 12:59 Last Admin: 08/30/16 09:54 Dose: Not Given Levetiracetam (Keppra) 500 mg PO BID [facility] Stop: 10/19/16 16:59 Last Admin: 08/30/16 09:53 Dose: 500 mg Lorazepam (Ativan) 2 mg IVP Q2HR PRN; Protocol PRN Reason: Seizures Stop: 10/19/16 10:06 Metronidazole (Flagyl) 500 mg PO TID [facility] Stop: 08/31/16 21:01 Last Admin: 08/30/16 09:56 Dose: 500 mg Miscellaneous (Clinical Monitoring) 1 ea [facility] DAILY PRN PRN Reason: RENAL Stop: 10/06/16 08:17 Miscellaneous (Probiotic Screen) 1 [facility] PRN PRN PRN Reason: PROTOCOL Stop: 10/11/16 14:12 Miscellaneous (Vancomycin Iv Per Pharmacy) 1 [facility] PRN PRN PRN Reason: PROTOCOL Stop: 10/22/16 11:55 Morphine Sulfate (Morphine) 2 mg IV Q4HR PRN PRN Reason: Pain (Moderate) Stop: 10/15/16 13:36 Last Admin: 08/30/16 12:40 Dose: 2 mg Pantoprazole Sodium (Protonix) 40 mg IVP BID [facility] Stop: 10/19/16 16:59 Last Admin: 08/30/16 09:56 Dose: 40 mg Sodium Bicarbonate (Sodium Bicarb) 50 meq IVP BID [facility] Stop: 10/13/16 16:59 Last Admin: 08/30/16 12:52 Dose: 50 meq Sorbitol (Sorbitol) 100 ml PO DAILY [facility] Stop: 10/28/16 12:14 Last Admin: 08/30/16 09:56 Dose: Not Given General: Alert, Oriented x3, Cooperative, No acute distress HEENT: Atraumatic, PERRLA, EOMI Neck: Supple Cardiovascular: Regular rate, Normal S1, Normal S2 Lungs: Clear to auscultation Abdomen: Bowel sounds, Soft - Procedures Procedures: Procedures Procedure Code Date ARTERY-VEIN NONAUTOGRAFT 96979 06/22/16 BLOOD TRANSFUSION SERVICE 48781 06/22/16 BYPASS L BRACH ART TO UP ARM VEIN W NONAUT SUB, OPEN [id number] 06/22/16 FLUOROSCOPY OF SUP VENA CAVA USING [facility] CONTRAST, GUIDANCE [id number] 06/22/16 INSERTION OF INFUSION DEV INTO SUP VENA CAVA, PERC APPROACH [id number] 06/22/[address] CATHETER IN VEIN 17427 06/22/16 TRANSFUSE NONAUT RED BLOOD CELLS IN PERIPH VEIN, PERC [id number] 06/22/16 Assessment/Plan - Problem List Patient Problems: All Active Problems Anemia (Acute) D64.9 ESRD (end stage renal disease) (Acute) ESRD (end stage renal disease) on dialysis (Acute) N18.6, Z99.2 ESRD (end stage renal disease) on dialysis (Acute) N18.6, Z99.2 HYPOTENSION (Acute) HYPOXEMIA (Acute) MEDICAL EVALUATION PER DR FRY (Acute) funtional quadriperisis (Acute) septic shock (Acute) - Assessment Assessment: 1. Cellulitis of legs. 2. Lymphedema of legs. 3. CKD 5 on HD. 4. Morbid obesity. 5 anemia 6 gi bleed 7 psychosis - Plan Plan: dialysis iv antibiotics ltac eval tele status snif plan
[2016-08-30] MEDS: Menthol/Zinc Oxide Oint 113gm Tube TP SCH ×4 (14:43→20:15)
--- NOTE | 2016-08-30 14:47 | General Progress Note ---
Subjective - Review of Systems Service Date: 08/30/16 Subjective: sleeping, comfortable, on NC, verbal Objective - Results Result Diagrams: 08/28/16 07:40 08/28/16 07:40 Recent Labs: Laboratory Last Values WBC 10.4 Th/cmm (4.8-10.8) 08/28/16 07:40 RBC 3.60 Mil/cmm (4.30-5.70) L 08/28/16 07:40 Hgb 9.9 gm/dL (13.2-17.3) L 08/28/16 07:40 Hct 30.0 % (39.0-49.0) L 08/28/16 07:40 MCV 83.4 fl (80-99) 08/28/16 07:40 MCH 27.6 pg (26.0-30.0) 08/28/16 07:40 MCHC Differential 33.1 pg (28.0-36.0) 08/28/16 07:40 RDW 15.5 % (11.5-20.0) 08/28/16 07:40 Plt Count 83 Th/cmm (150-400) L 08/28/16 07:40 MPV 10.1 fl 08/28/16 07:40 Neutrophils % 56.8 % (40.0-80.0) 07/07/16 06:00 Band Neutrophils % 2 % (0-10) 08/28/16 07:40 Lymphocytes % 18.4 % (20.0-50.0) L 07/07/16 06:00 Monocytes % 13.8 % (2.0-10.0) H 07/07/16 06:00 Eosinophils % 11.0 % (0.0-5.0) H 07/07/16 06:00 Basophils % 0.0 % (0.0-2.0) 07/07/16 06:00 Neutrophils (Manual) 86 % (40-80) H 08/28/16 07:40 Lymphocytes 7 % (20-50) L 08/28/16 07:40 Monocytes 5 % (2-10) 08/28/16 07:40 Eosinophils 1 % (0-5) 08/18/16 05:18 Basophils 3 % (0-3) 08/04/16 08:33 Metamyelocytes 1 % (0-0) H 08/14/16 07:40 Myelocytes 1 % 07/14/16 16:00 Nucleated RBCs 1.0 % (0-0) H 08/15/16 09:30 Hypochromia 1+ 07/20/16 23:30 Platelet Estimate DECREASED PLATELETS (NORMAL) 08/28/16 07:40 Platelet Morphology NORMAL (NORMAL) 08/25/16 06:51 Polychromasia 1+ 07/20/16 23:30 Anisocytosis 1+ 08/25/16 06:51 Microcytosis 1+ 07/14/16 16:00 RBC Morph Micro Appear ABNORMAL (NORMAL) 08/25/16 06:51 PT 15.4 SECONDS (9.5-11.5) H 08/23/16 04:35 INR 1.45 (0.5-1.4) H 08/23/16 04:35 PTT (Actin FS) 37.7 SECONDS (26.0-38.0) 08/17/16 07:20 Specimen Source Arterial 08/20/16 08:15 Sample Site Right Radial 08/20/16 08:15 pH 7.33 (7.35-7.45) L 08/20/16 08:15 pCO2 55.0 mmHg (35.0-45.0) H 08/20/16 08:15 pO2 92.0 mmHg (80.0-100.0) 08/20/16 08:15 HCO3 26.5 mEq/L (20.0-26.0) H 08/20/16 08:15 Base Excess 2.0 mEq/L (-3.0-3.0) 08/20/16 08:15 O2 Saturation 97.0 % (92.0-100.0) 08/20/16 08:15 Estuardo Test POSITIVE 08/20/16 08:15 Vent Rate NA 08/20/16 08:15 Inspired O2 32 08/20/16 08:15 Tidal Volume NA 08/20/16 08:15 PEEP NA 08/20/16 08:15 Pressure (ins/psv/peep) NA 08/20/16 08:15 Critical Value CSILVA 08/20/16 08:15 Sodium 135 mEq/L (136-145) L 08/28/16 07:40 Potassium 3.9 mEq/L (3.5-5.1) 08/28/16 07:40 Chloride 101 mEq/L (98-107) 08/28/16 07:40 Carbon Dioxide 27.4 mEq/L (21.0-31.0) 08/28/16 07:40 Anion Gap 10.5 (7.0-16.0) 08/28/16 07:40 BUN 82 mg/dL (7-25) H* 08/28/16 07:40 Creatinine 5.3 mg/dL (0.7-1.3) H* 08/28/16 07:40 Est GFR ( Amer) 14.9 ml/min (>90) 08/28/16 07:40 Est GFR (Non-Af Amer) 12.3 ml/min 08/28/16 07:40 BUN/Creatinine Ratio 15.5 08/28/16 07:40 Glucose 114 mg/dL (70-105) H 08/28/16 07:40 POC Glucose 111 MG/DL (70 - 105) H 08/15/16 08:03 Hemoglobin A1c % 4.8 % (4.0-6.0) 08/13/16 06:04 Whole Bld Lactic Acid 1.54 mmol/L (0.60-1.99) 08/13/16 06:04 Calcium 8.4 mg/dL (8.6-10.3) L 08/28/16 07:40 Phosphorus 5.5 mg/dL (2.5-5.0) H 07/19/16 09:50 Magnesium 1.9 mg/dL (1.9-2.7) 08/04/16 05:45 Iron 42 ug/dL (38-169) 06/28/16 04:38 TIBC 269 ug/dL (250-450) 06/28/16 04:38 Iron Saturation 16 % (15-55) 06/28/16 04:38 Unsaturated IBC 227 ug/dL (111-343) 06/28/16 04:38 Ferritin 150 ng/mL (30-400) 06/26/16 08:30 Total Bilirubin 0.9 mg/dL (0.3-1.0) 08/25/16 06:51 Direct Bilirubin 0.70 mg/dL (0.0-0.2) H 06/28/16 04:38 GGTP 14 IU/L (0-65) 06/28/16 04:38 AST 9 U/L (13-39) L 08/25/16 06:51 ALT 7 U/L (7-52) 08/25/16 06:51 Alkaline Phosphatase 31 U/L (34-104) L 08/25/16 06:51 Ammonia 73 umol/L (16-53) H 08/12/16 05:19 Troponin I < 0.01 ng/mL (0.01-0.05) L 06/22/16 19:33 B-Natriuretic Peptide 668.0 pg/mL (5.0-100.0) H 06/22/16 19:33 Total Protein 6.8 gm/dL (6.0-8.3) 08/25/16 06:51 Albumin 2.5 gm/dL (4.2-5.5) L 08/25/16 06:51 Globulin 4.3 gm/dL 08/25/16 06:51 Albumin/Globulin Ratio 0.6 (1.0-1.8) L 08/25/16 06:51 Amylase 28 U/L (29-103) L 07/02/16 06:40 Lipase 31 U/L (11-82) 07/02/16 06:40 TSH 2.98 uIU/ml (0.34-5.60) 08/13/16 06:04 Urine Source CLEAN C 06/29/16 05:55 Urine Color YELLOW 06/29/16 05:55 Urine Clarity HAZY (CLEAR) 06/29/16 05:55 Urine pH 5.5 06/29/16 05:55 Ur Specific [place] 1.015 (1.005-1.030) 06/29/16 05:55 Urine Protein 30 mg/dL (NEGATIVE) H 06/29/16 05:55 Urine Glucose (UA) NEGATIVE mg/dL (NEGATIVE) 06/29/16 05:55 Urine Ketones NEGATIVE mg/dL (NEGATIVE) 06/29/16 05:55 Urine Blood NEGATIVE (NEGATIVE) 06/29/16 05:55 Urine Nitrate NEGATIVE (NEGATIVE) 06/29/16 05:55 Urine Bilirubin NEGATIVE (NEGATIVE) 06/29/16 05:55 Urine Urobilinogen 0.2 E.U./dL (0.2 - 1.0) 06/29/16 05:55 Ur Leukocyte Esterase TRACE (NEGATIVE) H 06/29/16 05:55 Urine RBC 0-2 /hpf (0-5) H 06/29/16 05:55 Urine WBC 6-10 /hpf (0-5) H 06/29/16 05:55 Ur Epithelial Cells FEW /lpf (FEW) 06/29/16 05:55 Urine Bacteria MANY /hpf (NONE SEEN) 06/29/16 05:55 Stool Occult Blood POSITIVE (NEGATIVE) 08/17/16 11:00 Stool Leukocyte NO WBC SEEN 08/17/16 11:00 Gentamicin Trough ug/ml (0.2-2.0) 08/12/16 05:19 Random Vancomycin 19.2 ug/mL (5.0-40.0) 08/26/16 07:56 RPR NONREACTIVE (NONREACTIVE) 06/22/16 19:33 Helicobacter pylori Ab NEGATIVE (NEGATIVE) 08/23/16 12:00 Hepatitis A IgM Ab Negative (Negative) 06/29/16 05:49 Hep Bs Antigen Negative (Negative) 06/29/16 05:49 Hep B Core IgM Ab Negative (Negative) 06/29/16 05:49 Hepatitis C Antibody >11.0 s/co ratio (0.0-0.9) H 06/29/16 05:49 Blood Type A POSITIVE 08/10/16 21:07 Antibody Screen NEGATIVE 08/10/16 21:07 Crossmatch See Detail 08/10/16 21:07 - Physical Exam Vitals and I&O: Vital Signs Temp 97.9 F 08/30/16 12:00 Pulse 110 08/30/16 12:00 Resp 16 08/30/16 12:00 BP 109/63 08/30/16 12:00 Pulse Ox 100 08/30/16 12:00 Intake & Output 08/29/16 08/30/16 08/30/16 18:59 06:59 18:59 Intake Total 9469 244 0981 Output Total 2 Balance 7391 672 9516 Intake: Intake, IV Amount 1000 Sodium Chloride 0.9% 1, 1000 000 ml @ 10 mls/hr IV . Q24H [facility] Rx#:[id number] Oral 1000 300 Output: Stool 2 Other: # Voids 1 Active Medications: Current Medications Acetaminophen (Tylenol) 650 mg PO Q6H PRN PRN Reason: temperature above 100F Stop: 09/28/16 16:14 Last Admin: 07/30/16 16:27 Dose: 650 mg Calamine/Phenol (Calmoseptine) 1 appl TP QID [facility] Stop: 10/14/16 12:59 Last Admin: 08/29/16 21:26 Dose: 1 appl Diphenhydramine HCl (Benadryl 50 Mg/Ml) 25 mg IVP Q6HR PRN PRN Reason: itching Stop: 10/11/16 03:12 Last Admin: 08/14/16 11:25 Dose: 25 mg Docusate Sodium (Colace) 100 mg PO Q12HR [facility] Stop: 09/16/16 08:59 Last Admin: 08/30/16 09:53 Dose: Not Given Fluconazole (Diflucan) 100 mg PO DAILY [facility] Stop: 10/23/16 08:59 Last Admin: 08/30/16 09:53 Dose: 100 mg Hydrocortisone Sodium Succinate (Solu-Cortef) 50 mg IVP Q8H [facility] Stop: 10/09/16 15:59 Last Admin: 08/30/16 09:58 Dose: 50 mg Sodium Chloride (Nacl 0.9%) 1,000 mls @ 10 mls/hr IV .Q24H [facility] Stop: 10/15/16 15:01 Last Admin: 08/30/16 12:44 Dose: 10 mls/hr Lactobacillus Rhamnosus (Culturelle) 1 each PO DAILY [facility] Stop: 10/12/16 08:59 Last Admin: 08/30/16 09:53 Dose: 1 each Lactulose (Cephulac) 30 gm PO QID [facility] Stop: 10/28/16 12:59 Last Admin: 08/30/16 09:54 Dose: Not Given Levetiracetam (Keppra) 500 mg PO BID [facility] Stop: 10/19/16 16:59 Last Admin: 08/30/16 09:53 Dose: 500 mg Lorazepam (Ativan) 2 mg IVP Q2HR PRN; Protocol PRN Reason: Seizures Stop: 10/19/16 10:06 Metronidazole (Flagyl) 500 mg PO TID [facility] Stop: 08/31/16 21:01 Last Admin: 08/30/16 09:56 Dose: 500 mg Miscellaneous (Clinical Monitoring) 1 ea [facility] DAILY PRN PRN Reason: RENAL Stop: 10/06/16 08:17 Miscellaneous (Probiotic Screen) 1 ea PRN PRN PRN Reason: PROTOCOL Stop: 10/11/16 14:12 Miscellaneous (Vancomycin Iv Per Pharmacy) 1 [facility] PRN PRN PRN Reason: PROTOCOL Stop: 10/22/16 11:55 Morphine Sulfate (Morphine) 2 mg IV Q4HR PRN PRN Reason: Pain (Moderate) Stop: 10/15/16 13:36 Last Admin: 08/30/16 12:40 Dose: 2 mg Pantoprazole Sodium (Protonix) 40 mg IVP BID [facility] Stop: 10/19/16 16:59 Last Admin: 08/30/16 09:56 Dose: 40 mg Sodium Bicarbonate (Sodium Bicarb) 50 meq IVP BID [facility] Stop: 10/13/16 16:59 Last Admin: 08/30/16 12:52 Dose: 50 meq Sorbitol (Sorbitol) 100 ml PO DAILY [facility] Stop: 10/28/16 12:14 Last Admin: 08/30/16 09:56 Dose: Not Given General: Alert, No acute distress HEENT: Atraumatic, Mucous membr. moist/pink Neck: Supple, +2 carotid pulse wo bruit Cardiovascular: Regular rate, Normal S1, Normal S2 Lungs: Other (few rhonchi) Abdomen: Bowel sounds, Soft, Obese Extremities: Edema ((+) 3 bipedal edema) Neurological: Sensation intact Skin: no Rash - Procedures Procedures: Procedures Procedure Code Date ARTERY-VEIN NONAUTOGRAFT 74033 06/22/16 BLOOD TRANSFUSION SERVICE 46633 06/22/16 BYPASS L BRACH ART TO UP ARM VEIN W NONAUT SUB, OPEN [id number] 06/22/16 FLUOROSCOPY OF SUP VENA CAVA USING [facility] CONTRAST, GUIDANCE [id number] 06/22/16 INSERTION OF INFUSION DEV INTO SUP VENA CAVA, PERC APPROACH [id number] 06/22/16 PL[address] CATHETER IN VEIN 64037 06/22/16 TRANSFUSE NONAUT RED BLOOD CELLS IN PERIPH VEIN, PERC [id number] 06/22/16 Assessment/Plan - Problem List Patient Problems: All Active Problems Anemia (Acute) D64.9 ESRD (end stage renal disease) (Acute) ESRD (end stage renal disease) on dialysis (Acute) N18.6, Z99.2 ESRD (end stage renal disease) on dialysis (Acute) N18.6, Z99.2 HYPOTENSION (Acute) HYPOXEMIA (Acute) MEDICAL EVALUATION PER DR FRY (Acute) funtional quadriperisis (Acute) septic shock (Acute) - Assessment Assessment: septic shock (better) esrd on hd persistent cellulitis b/l lower ext acute on chronic anemia possible gi bleed ohs chronic a. fib hypothyroid anasarca functional quadriplegia chronic venous stasis dermatitis acute decomp psychosis s/p left avg G (+) cocci in clusters septicemia new onset seizure activity Candidal Esophagitis, Antral gastritis - Plan Plan: Lab - Result Diagrams 07/19/16 09:50 Lab - Result Diagrams 07/22/16 05:21 Lab - Result Diagrams 07/24/16 05:00 Lab - Result Diagrams Lab - Result Diagrams 08/04/16 08:33 Lab - Result Diagrams 08/05/16 05:00 08/04/16 05:45 08/04/16 05:45 07/28/16 05:30 07/28/16 05:30 07/24/16 05:00 07/20/16 05:50 07/19/16 09:50 hgb/hct remain stable @ 9.9/30 culture grew G (+) cocci, WBC down to 10.4 continue ABx transfuse as necessary f/u electrolytes, cbc new right Anton cath new onset seiure activity schedule for HD today persistent anasarca, will dialyze 4x/week Lab - Result Diagrams 07/19/16 09:50 07/20/16 05:50 Lab - Result Diagrams 07/21/16 06:16 07/20/16 05:50 Lab - Result Diagrams 07/26/16 11:05 07/24/16 05:00 Lab - Result Diagrams 07/29/16 05:55 07/28/16 05:30 Lab - Result Diagrams 08/12/16 05:19 08/12/16 05:19 Lab - Result Diagrams 08/17/16 07:20 08/17/16 07:20 Lab - Result Diagrams 08/25/16 06:51 08/25/16 06:51
[2016-08-30 15:52] LABS: ANION GAP 12.6 (7.0-16.0); CALCIUM SERUM 8.4 mg/dL (8.6-10.3); CARBON DIOXIDE 27.9 mEq/L (21.0-31.0); POTASSIUM SERUM 3.5 mEq/L (3.5-5.1)
[2016-08-30 16:06] LABS: VANCOMYCIN RANDOM 16.1 ug/mL (5.0-40.0)
[2016-08-30 16:07] LABS: CREATININE - SERUM 4.4 mg/dL (0.7-1.3)
[2016-08-31] MEDS: Hydrocortisone Sodium Succ 100 mg Vial IVP SCH ×4 (00:20→16:42)
[2016-08-31] MEDS: Morphine Sulfate 2 mg/mL 1mL Syr IV PRN ×4 (03:44→21:19)
[2016-08-31] MEDS: Lactobacillus Rhamnosus 10 Billion CFU Capsule PO SCH (08:49)
[2016-08-31] MEDS: Sodium Bicarbonate 8.4% 50mEq PFS IVP SCH ×2 (09:10→16:43)
[2016-08-31] MEDS: Menthol/Zinc Oxide Oint 113gm Tube TP SCH ×5 (10:39→21:35)
[2016-08-31] MEDS: Venelex 60gm Tube TP SCH ×2 (10:39→10:40)
[2016-08-31] MEDS: Lactulose 10 Gm/15 mL 30mL UDC PO SCH ×4 (10:40→21:27)
--- NOTE | 2016-08-31 12:26 | General Progress Note ---
Subjective - Review of Systems Service Date: 08/31/16 Events since last encounter: no distress Subjective: pt is still sob c/o weakness getting better Objective - Results Result Diagrams: 08/28/16 07:40 08/30/16 13:00 Recent Labs: Laboratory Last Values WBC 10.4 Th/cmm (4.8-10.8) 08/28/16 07:40 RBC 3.60 Mil/cmm (4.30-5.70) L 08/28/16 07:40 Hgb 9.9 gm/dL (13.2-17.3) L 08/28/16 07:40 Hct 30.0 % (39.0-49.0) L 08/28/16 07:40 MCV 83.4 fl (80-99) 08/28/16 07:40 MCH 27.6 pg (26.0-30.0) 08/28/16 07:40 MCHC Differential 33.1 pg (28.0-36.0) 08/28/16 07:40 RDW 15.5 % (11.5-20.0) 08/28/16 07:40 Plt Count 83 Th/cmm (150-400) L 08/28/16 07:40 MPV 10.1 fl 08/28/16 07:40 Neutrophils % 56.8 % (40.0-80.0) 07/07/16 06:00 Band Neutrophils % 2 % (0-10) 08/28/16 07:40 Lymphocytes % 18.4 % (20.0-50.0) L 07/07/16 06:00 Monocytes % 13.8 % (2.0-10.0) H 07/07/16 06:00 Eosinophils % 11.0 % (0.0-5.0) H 07/07/16 06:00 Basophils % 0.0 % (0.0-2.0) 07/07/16 06:00 Neutrophils (Manual) 86 % (40-80) H 08/28/16 07:40 Lymphocytes 7 % (20-50) L 08/28/16 07:40 Monocytes 5 % (2-10) 08/28/16 07:40 Eosinophils 1 % (0-5) 08/18/16 05:18 Basophils 3 % (0-3) 08/04/16 08:33 Metamyelocytes 1 % (0-0) H 08/14/16 07:40 Myelocytes 1 % 07/14/16 16:00 Nucleated RBCs 1.0 % (0-0) H 08/15/16 09:30 Hypochromia 1+ 07/20/16 23:30 Platelet Estimate DECREASED PLATELETS (NORMAL) 08/28/16 07:40 Platelet Morphology NORMAL (NORMAL) 08/25/16 06:51 Polychromasia 1+ 07/20/16 23:30 Anisocytosis 1+ 08/25/16 06:51 Microcytosis 1+ 07/14/16 16:00 RBC Morph Micro Appear ABNORMAL (NORMAL) 08/25/16 06:51 PT 15.4 SECONDS (9.5-11.5) H 08/23/16 04:35 INR 1.45 (0.5-1.4) H 08/23/16 04:35 PTT (Actin FS) 37.7 SECONDS (26.0-38.0) 08/17/16 07:20 Specimen Source Arterial 08/20/16 08:15 Sample Site Right Radial 08/20/16 08:15 pH 7.33 (7.35-7.45) L 08/20/16 08:15 pCO2 55.0 mmHg (35.0-45.0) H 08/20/16 08:15 pO2 92.0 mmHg (80.0-100.0) 08/20/16 08:15 HCO3 26.5 mEq/L (20.0-26.0) H 08/20/16 08:15 Base Excess 2.0 mEq/L (-3.0-3.0) 08/20/16 08:15 O2 Saturation 97.0 % (92.0-100.0) 08/20/16 08:15 Estuardo Test POSITIVE 08/20/16 08:15 Vent Rate NA 08/20/16 08:15 Inspired O2 32 08/20/16 08:15 Tidal Volume NA 08/20/16 08:15 PEEP NA 08/20/16 08:15 Pressure (ins/psv/peep) NA 08/20/16 08:15 Critical Value CSILVA 08/20/16 08:15 Sodium 137 mEq/L (136-145) 08/30/16 13:00 Potassium 3.5 mEq/L (3.5-5.1) 08/30/16 13:00 Chloride 100 mEq/L (98-107) 08/30/16 13:00 Carbon Dioxide 27.9 mEq/L (21.0-31.0) 08/30/16 13:00 Anion Gap 12.6 (7.0-16.0) 08/30/16 13:00 BUN 66 mg/dL (7-25) H 08/30/16 13:00 Creatinine 4.4 mg/dL (0.7-1.3) H* 08/30/16 13:00 Est GFR ( Amer) 18.5 ml/min (>90) 08/30/16 13:00 Est GFR (Non-Af Amer) 15.3 ml/min 08/30/16 13:00 BUN/Creatinine Ratio 15.0 08/30/16 13:00 Glucose 102 mg/dL (70-105) 08/30/16 13:00 POC Glucose 111 MG/DL (70 - 105) H 08/15/16 08:03 Hemoglobin A1c % 4.8 % (4.0-6.0) 08/13/16 06:04 Whole Bld Lactic Acid 1.54 mmol/L (0.60-1.99) 08/13/16 06:04 Calcium 8.4 mg/dL (8.6-10.3) L 08/30/16 13:00 Phosphorus 5.5 mg/dL (2.5-5.0) H 07/19/16 09:50 Magnesium 1.9 mg/dL (1.9-2.7) 08/04/16 05:45 Iron 42 ug/dL (38-169) 06/28/16 04:38 TIBC 269 ug/dL (250-450) 06/28/16 04:38 Iron Saturation 16 % (15-55) 06/28/16 04:38 Unsaturated IBC 227 ug/dL (111-343) 06/28/16 04:38 Ferritin 150 ng/mL (30-400) 06/26/16 08:30 Total Bilirubin 0.9 mg/dL (0.3-1.0) 08/25/16 06:51 Direct Bilirubin 0.70 mg/dL (0.0-0.2) H 06/28/16 04:38 GGTP 14 IU/L (0-65) 06/28/16 04:38 AST 9 U/L (13-39) L 08/25/16 06:51 ALT 7 U/L (7-52) 08/25/16 06:51 Alkaline Phosphatase 31 U/L (34-104) L 08/25/16 06:51 Ammonia 73 umol/L (16-53) H 08/12/16 05:19 Troponin I < 0.01 ng/mL (0.01-0.05) L 06/22/16 19:33 B-Natriuretic Peptide 668.0 pg/mL (5.0-100.0) H 06/22/16 19:33 Total Protein 6.8 gm/dL (6.0-8.3) 08/25/16 06:51 Albumin 2.5 gm/dL (4.2-5.5) L 08/25/16 06:51 Globulin 4.3 gm/dL 08/25/16 06:51 Albumin/Globulin Ratio 0.6 (1.0-1.8) L 08/25/16 06:51 Amylase 28 U/L (29-103) L 07/02/16 06:40 Lipase 31 U/L (11-82) 07/02/16 06:40 TSH 2.98 uIU/ml (0.34-5.60) 08/13/16 06:04 Urine Source CLEAN C 06/29/16 05:55 Urine Color YELLOW 06/29/16 05:55 Urine Clarity HAZY (CLEAR) 06/29/16 05:55 Urine pH 5.5 06/29/16 05:55 Ur Specific [place] 1.015 (1.005-1.030) 06/29/16 05:55 Urine Protein 30 mg/dL (NEGATIVE) H 06/29/16 05:55 Urine Glucose (UA) NEGATIVE mg/dL (NEGATIVE) 06/29/16 05:55 Urine Ketones NEGATIVE mg/dL (NEGATIVE) 06/29/16 05:55 Urine Blood NEGATIVE (NEGATIVE) 06/29/16 05:55 Urine Nitrate NEGATIVE (NEGATIVE) 06/29/16 05:55 Urine Bilirubin NEGATIVE (NEGATIVE) 06/29/16 05:55 Urine Urobilinogen 0.2 E.U./dL (0.2 - 1.0) 06/29/16 05:55 Ur Leukocyte Esterase TRACE (NEGATIVE) H 06/29/16 05:55 Urine RBC 0-2 /hpf (0-5) H 06/29/16 05:55 Urine WBC 6-10 /hpf (0-5) H 06/29/16 05:55 Ur Epithelial Cells FEW /lpf (FEW) 06/29/16 05:55 Urine Bacteria MANY /hpf (NONE SEEN) 06/29/16 05:55 Stool Occult Blood POSITIVE (NEGATIVE) 08/17/16 11:00 Stool Leukocyte NO WBC SEEN 08/17/16 11:00 Gentamicin Trough ug/ml (0.2-2.0) 08/12/16 05:19 Random Vancomycin 16.1 ug/mL (5.0-40.0) 08/30/16 13:00 RPR NONREACTIVE (NONREACTIVE) 06/22/16 19:33 Helicobacter pylori Ab NEGATIVE (NEGATIVE) 08/23/16 12:00 Hepatitis A IgM Ab Negative (Negative) 06/29/16 05:49 Hep Bs Antigen Negative (Negative) 06/29/16 05:49 Hep B Core IgM Ab Negative (Negative) 06/29/16 05:49 Hepatitis C Antibody >11.0 s/co ratio (0.0-0.9) H 06/29/16 05:49 Blood Type A POSITIVE 08/10/16 21:07 Antibody Screen NEGATIVE 08/10/16 21:07 Crossmatch See Detail 08/10/16 21:07 - Physical Exam Vitals and I&O: Vital Signs Temp 97.4 F 08/31/16 08:00 Pulse 108 08/31/16 08:00 Resp 18 08/31/16 08:00 BP 149/68 08/31/16 08:00 Pulse Ox 99 08/31/16 08:00 Intake & Output 08/30/16 08/31/16 08/31/16 18:59 06:59 18:59 Intake Total 1800 900 Output Total 3600 Balance -1800 900 Intake: Intake, IV Amount 1000 250 Sodium Chloride 0.9% 1, 1000 000 ml @ 10 mls/hr IV . Q24H [facility] Rx#:[id number] Vancomycin HCl 2 gm In 250 Sodium Chloride 0.9% 250 ml @ 165 mls/hr IV 2000 ONE Rx#:[id number] Oral 800 650 Output: Hemodialysis 3600 Other: # Voids 3 3 # Bowel Movements 2 Stool Characteristics Soft Liquid Active Medications: Current Medications Acetaminophen (Tylenol) 650 mg PO Q6H PRN PRN Reason: temperature above 100F Stop: 09/28/16 16:14 Last Admin: 07/30/16 16:27 Dose: 650 mg Calamine/Phenol (Calmoseptine) 1 appl TP QID [facility] Stop: 10/14/16 12:59 Last Admin: 08/31/16 10:40 Dose: 1 appl Diphenhydramine HCl (Benadryl 50 Mg/Ml) 25 mg IVP Q6HR PRN PRN Reason: itching Stop: 10/11/16 03:12 Last Admin: 08/14/16 11:25 Dose: 25 mg Docusate Sodium (Colace) 100 mg PO Q12HR [facility] Stop: 09/16/16 08:59 Last Admin: 08/31/16 08:49 Dose: 100 mg Fluconazole (Diflucan) 100 mg PO DAILY [facility] Stop: 10/23/16 08:59 Last Admin: 08/31/16 08:49 Dose: 100 mg Hydrocortisone Sodium Succinate (Solu-Cortef) 50 mg IVP Q8H [facility] Stop: 10/09/16 15:59 Last Admin: 08/31/16 09:08 Dose: 50 mg Sodium Chloride (Nacl 0.9%) 1,000 mls @ 10 mls/hr IV .Q24H [facility] Stop: 10/15/16 15:01 Last Admin: 08/30/16 12:44 Dose: 10 mls/hr Lactobacillus Rhamnosus (Culturelle) 1 each PO DAILY [facility] Stop: 10/12/16 08:59 Last Admin: 08/31/16 08:49 Dose: 1 each Lactulose (Cephulac) 30 gm PO QID [facility] Stop: 10/28/16 12:59 Last Admin: 08/31/16 10:40 Dose: Not Given Levetiracetam (Keppra) 500 mg PO BID [facility] Stop: 10/19/16 16:59 Last Admin: 08/31/16 08:49 Dose: 500 mg Lorazepam (Ativan) 2 mg IVP Q2HR PRN; Protocol PRN Reason: Seizures Stop: 10/19/16 10:06 Metronidazole (Flagyl) 500 mg PO TID [facility] Stop: 08/31/16 21:01 Last Admin: 08/31/16 08:49 Dose: 500 mg Miscellaneous (Clinical Monitoring) 1 ea [facility] DAILY PRN PRN Reason: RENAL Stop: 10/06/16 08:17 Miscellaneous (Probiotic Screen) 1 ea [facility] PRN PRN PRN Reason: PROTOCOL Stop: 10/11/16 14:12 Morphine Sulfate (Morphine) 2 mg IV Q4HR PRN PRN Reason: Pain (Moderate) Stop: 10/15/16 13:36 Last Admin: 08/31/16 09:38 Dose: 2 mg Pantoprazole Sodium (Protonix) 40 mg IVP BID [facility] Stop: 10/19/16 16:59 Last Admin: 08/31/16 09:09 Dose: 40 mg Sodium Bicarbonate (Sodium Bicarb) 50 meq IVP BID [facility] Stop: 10/13/16 16:59 Last Admin: 08/31/16 09:10 Dose: 50 meq Sorbitol (Sorbitol) 100 ml PO DAILY [facility] Stop: 10/28/16 12:14 Last Admin: 08/31/16 10:40 Dose: Not Given - Procedures Procedures: Procedures Procedure Code Date ARTERY-VEIN NONAUTOGRAFT 88966 06/22/16 BLOOD TRANSFUSION SERVICE 54726 06/22/16 BYPASS L BRACH ART TO UP ARM VEIN W NONAUT SUB, OPEN [id number] 06/22/16 FLUOROSCOPY OF SUP VENA CAVA USING [facility] CONTRAST, GUIDANCE [id number] 06/22/16 INSERTION OF INFUSION DEV INTO SUP VENA CAVA, PERC APPROACH [id number] 06/22/[address] CATHETER IN VEIN 13507 06/22/16 TRANSFUSE NONAUT RED BLOOD CELLS IN PERIPH VEIN, [facility] [id number] 06/22/16 Assessment/Plan - Problem List Patient Problems: All Active Problems Anemia (Acute) D64.9 ESRD (end stage renal disease) (Acute) ESRD (end stage renal disease) on dialysis (Acute) N18.6, Z99.2 ESRD (end stage renal disease) on dialysis (Acute) N18.6, Z99.2 HYPOTENSION (Acute) HYPOXEMIA (Acute) MEDICAL EVALUATION PER DR FRY (Acute) funtional quadriperisis (Acute) septic shock (Acute) - Assessment Assessment: 1. Cellulitis of legs. 2. Lymphedema of legs. 3. CKD 5 on HD. 4. Morbid obesity. 5 anemia 6 gi bleed 7 psychosis - Plan Plan: dialysis iv antibiotics ltac eval tele status snif plan
--- NOTE | 2016-08-31 13:18 | General Progress Note ---
Subjective - Review of Systems Service Date: 08/31/16 Subjective: alert, comfortable, on NC, verbal, more ccoperative Objective - Results Result Diagrams: 08/28/16 07:40 08/30/16 13:00 Recent Labs: Laboratory Last Values WBC 10.4 Th/cmm (4.8-10.8) 08/28/16 07:40 RBC 3.60 Mil/cmm (4.30-5.70) L 08/28/16 07:40 Hgb 9.9 gm/dL (13.2-17.3) L 08/28/16 07:40 Hct 30.0 % (39.0-49.0) L 08/28/16 07:40 MCV 83.4 fl (80-99) 08/28/16 07:40 MCH 27.6 pg (26.0-30.0) 08/28/16 07:40 MCHC Differential 33.1 pg (28.0-36.0) 08/28/16 07:40 RDW 15.5 % (11.5-20.0) 08/28/16 07:40 Plt Count 83 Th/cmm (150-400) L 08/28/16 07:40 MPV 10.1 fl 08/28/16 07:40 Neutrophils % 56.8 % (40.0-80.0) 07/07/16 06:00 Band Neutrophils % 2 % (0-10) 08/28/16 07:40 Lymphocytes % 18.4 % (20.0-50.0) L 07/07/16 06:00 Monocytes % 13.8 % (2.0-10.0) H 07/07/16 06:00 Eosinophils % 11.0 % (0.0-5.0) H 07/07/16 06:00 Basophils % 0.0 % (0.0-2.0) 07/07/16 06:00 Neutrophils (Manual) 86 % (40-80) H 08/28/16 07:40 Lymphocytes 7 % (20-50) L 08/28/16 07:40 Monocytes 5 % (2-10) 08/28/16 07:40 Eosinophils 1 % (0-5) 08/18/16 05:18 Basophils 3 % (0-3) 08/04/16 08:33 Metamyelocytes 1 % (0-0) H 08/14/16 07:40 Myelocytes 1 % 07/14/16 16:00 Nucleated RBCs 1.0 % (0-0) H 08/15/16 09:30 Hypochromia 1+ 07/20/16 23:30 Platelet Estimate DECREASED PLATELETS (NORMAL) 08/28/16 07:40 Platelet Morphology NORMAL (NORMAL) 08/25/16 06:51 Polychromasia 1+ 07/20/16 23:30 Anisocytosis 1+ 08/25/16 06:51 Microcytosis 1+ 07/14/16 16:00 RBC Morph Micro Appear ABNORMAL (NORMAL) 08/25/16 06:51 PT 15.4 SECONDS (9.5-11.5) H 08/23/16 04:35 INR 1.45 (0.5-1.4) H 08/23/16 04:35 PTT (Actin FS) 37.7 SECONDS (26.0-38.0) 08/17/16 07:20 Specimen Source Arterial 08/20/16 08:15 Sample Site Right Radial 08/20/16 08:15 pH 7.33 (7.35-7.45) L 08/20/16 08:15 pCO2 55.0 mmHg (35.0-45.0) H 08/20/16 08:15 pO2 92.0 mmHg (80.0-100.0) 08/20/16 08:15 HCO3 26.5 mEq/L (20.0-26.0) H 08/20/16 08:15 Base Excess 2.0 mEq/L (-3.0-3.0) 08/20/16 08:15 O2 Saturation 97.0 % (92.0-100.0) 08/20/16 08:15 Estuardo Test POSITIVE 08/20/16 08:15 Vent Rate NA 08/20/16 08:15 Inspired O2 32 08/20/16 08:15 Tidal Volume NA 08/20/16 08:15 PEEP NA 08/20/16 08:15 Pressure (ins/psv/peep) NA 08/20/16 08:15 Critical Value CSILVA 08/20/16 08:15 Sodium 137 mEq/L (136-145) 08/30/16 13:00 Potassium 3.5 mEq/L (3.5-5.1) 08/30/16 13:00 Chloride 100 mEq/L (98-107) 08/30/16 13:00 Carbon Dioxide 27.9 mEq/L (21.0-31.0) 08/30/16 13:00 Anion Gap 12.6 (7.0-16.0) 08/30/16 13:00 BUN 66 mg/dL (7-25) H 08/30/16 13:00 Creatinine 4.4 mg/dL (0.7-1.3) H* 08/30/16 13:00 Est GFR ( Amer) 18.5 ml/min (>90) 08/30/16 13:00 Est GFR (Non-Af Amer) 15.3 ml/min 08/30/16 13:00 BUN/Creatinine Ratio 15.0 08/30/16 13:00 Glucose 102 mg/dL (70-105) 08/30/16 13:00 POC Glucose 111 MG/DL (70 - 105) H 08/15/16 08:03 Hemoglobin A1c % 4.8 % (4.0-6.0) 08/13/16 06:04 Whole Bld Lactic Acid 1.54 mmol/L (0.60-1.99) 08/13/16 06:04 Calcium 8.4 mg/dL (8.6-10.3) L 08/30/16 13:00 Phosphorus 5.5 mg/dL (2.5-5.0) H 07/19/16 09:50 Magnesium 1.9 mg/dL (1.9-2.7) 08/04/16 05:45 Iron 42 ug/dL (38-169) 06/28/16 04:38 TIBC 269 ug/dL (250-450) 06/28/16 04:38 Iron Saturation 16 % (15-55) 06/28/16 04:38 Unsaturated IBC 227 ug/dL (111-343) 06/28/16 04:38 Ferritin 150 ng/mL (30-400) 06/26/16 08:30 Total Bilirubin 0.9 mg/dL (0.3-1.0) 08/25/16 06:51 Direct Bilirubin 0.70 mg/dL (0.0-0.2) H 06/28/16 04:38 GGTP 14 IU/L (0-65) 06/28/16 04:38 AST 9 U/L (13-39) L 08/25/16 06:51 ALT 7 U/L (7-52) 08/25/16 06:51 Alkaline Phosphatase 31 U/L (34-104) L 08/25/16 06:51 Ammonia 73 umol/L (16-53) H 08/12/16 05:19 Troponin I < 0.01 ng/mL (0.01-0.05) L 06/22/16 19:33 B-Natriuretic Peptide 668.0 pg/mL (5.0-100.0) H 06/22/16 19:33 Total Protein 6.8 gm/dL (6.0-8.3) 08/25/16 06:51 Albumin 2.5 gm/dL (4.2-5.5) L 08/25/16 06:51 Globulin 4.3 gm/dL 08/25/16 06:51 Albumin/Globulin Ratio 0.6 (1.0-1.8) L 08/25/16 06:51 Amylase 28 U/L (29-103) L 07/02/16 06:40 Lipase 31 U/L (11-82) 07/02/16 06:40 TSH 2.98 uIU/ml (0.34-5.60) 08/13/16 06:04 Urine Source CLEAN C 06/29/16 05:55 Urine Color YELLOW 06/29/16 05:55 Urine Clarity HAZY (CLEAR) 06/29/16 05:55 Urine pH 5.5 06/29/16 05:55 Ur Specific [place] 1.015 (1.005-1.030) 06/29/16 05:55 Urine Protein 30 mg/dL (NEGATIVE) H 06/29/16 05:55 Urine Glucose (UA) NEGATIVE mg/dL (NEGATIVE) 06/29/16 05:55 Urine Ketones NEGATIVE mg/dL (NEGATIVE) 06/29/16 05:55 Urine Blood NEGATIVE (NEGATIVE) 06/29/16 05:55 Urine Nitrate NEGATIVE (NEGATIVE) 06/29/16 05:55 Urine Bilirubin NEGATIVE (NEGATIVE) 06/29/16 05:55 Urine Urobilinogen 0.2 E.U./dL (0.2 - 1.0) 06/29/16 05:55 Ur Leukocyte Esterase TRACE (NEGATIVE) H 06/29/16 05:55 Urine RBC 0-2 /hpf (0-5) H 06/29/16 05:55 Urine WBC 6-10 /hpf (0-5) H 06/29/16 05:55 Ur Epithelial Cells FEW /lpf (FEW) 06/29/16 05:55 Urine Bacteria MANY /hpf (NONE SEEN) 06/29/16 05:55 Stool Occult Blood POSITIVE (NEGATIVE) 08/17/16 11:00 Stool Leukocyte NO WBC SEEN 08/17/16 11:00 Gentamicin Trough ug/ml (0.2-2.0) 08/12/16 05:19 Random Vancomycin 16.1 ug/mL (5.0-40.0) 08/30/16 13:00 RPR NONREACTIVE (NONREACTIVE) 06/22/16 19:33 Helicobacter pylori Ab NEGATIVE (NEGATIVE) 08/23/16 12:00 Hepatitis A IgM Ab Negative (Negative) 06/29/16 05:49 Hep Bs Antigen Negative (Negative) 06/29/16 05:49 Hep B Core IgM Ab Negative (Negative) 06/29/16 05:49 Hepatitis C Antibody >11.0 s/co ratio (0.0-0.9) H 06/29/16 05:49 Blood Type A POSITIVE 08/10/16 21:07 Antibody Screen NEGATIVE 08/10/16 21:07 Crossmatch See Detail 08/10/16 21:07 - Physical Exam Vitals and I&O: Vital Signs Temp 97.4 F 08/31/16 08:00 Pulse 108 08/31/16 08:00 Resp 18 08/31/16 08:00 BP 149/68 08/31/16 08:00 Pulse Ox 99 08/31/16 08:00 Intake & Output 08/30/16 08/31/16 08/31/16 18:59 06:59 18:59 Intake Total 1800 900 Output Total 3600 Balance -1800 900 Intake: Intake, IV Amount 1000 250 Sodium Chloride 0.9% 1, 1000 000 ml @ 10 mls/hr IV . Q24H [facility] Rx#:[id number] Vancomycin HCl 2 gm In 250 Sodium Chloride 0.9% 250 ml @ 165 mls/hr IV 2000 ONE Rx#:[id number] Oral 800 650 Output: Hemodialysis 3600 Other: # Voids 3 3 # Bowel Movements 2 Stool Characteristics Soft Liquid Active Medications: Current Medications Acetaminophen (Tylenol) 650 mg PO Q6H PRN PRN Reason: temperature above 100F Stop: 09/28/16 16:14 Last Admin: 07/30/16 16:27 Dose: 650 mg Calamine/Phenol (Calmoseptine) 1 appl TP QID [facility] Stop: 10/14/16 12:59 Last Admin: 08/31/16 10:40 Dose: 1 appl Diphenhydramine HCl (Benadryl 50 Mg/Ml) 25 mg IVP Q6HR PRN PRN Reason: itching Stop: 10/11/16 03:12 Last Admin: 08/14/16 11:25 Dose: 25 mg Docusate Sodium (Colace) 100 mg PO Q12HR [facility] Stop: 09/16/16 08:59 Last Admin: 08/31/16 08:49 Dose: 100 mg Fluconazole (Diflucan) 100 mg PO DAILY [facility] Stop: 10/23/16 08:59 Last Admin: 08/31/16 08:49 Dose: 100 mg Hydrocortisone Sodium Succinate (Solu-Cortef) 50 mg IVP Q8H [facility] Stop: 10/09/16 15:59 Last Admin: 08/31/16 09:08 Dose: 50 mg Sodium Chloride (Nacl 0.9%) 1,000 mls @ 10 mls/hr IV .Q24H [facility] Stop: 10/15/16 15:01 Last Admin: 08/30/16 12:44 Dose: 10 mls/hr Lactobacillus Rhamnosus (Culturelle) 1 each PO DAILY [facility] Stop: 10/12/16 08:59 Last Admin: 08/31/16 08:49 Dose: 1 each Lactulose (Cephulac) 30 gm PO QID [facility] Stop: 10/28/16 12:59 Last Admin: 08/31/16 10:40 Dose: Not Given Levetiracetam (Keppra) 500 mg PO BID [facility] Stop: 10/19/16 16:59 Last Admin: 08/31/16 08:49 Dose: 500 mg Lorazepam (Ativan) 2 mg IVP Q2HR PRN; Protocol PRN Reason: Seizures Stop: 10/19/16 10:06 Metronidazole (Flagyl) 500 mg PO TID [facility] Stop: 08/31/16 21:01 Last Admin: 08/31/16 08:49 Dose: 500 mg Miscellaneous (Clinical Monitoring) 1 ea MC DAILY PRN PRN Reason: RENAL Stop: 10/06/16 08:17 Miscellaneous (Probiotic Screen) 1 ea MC PRN PRN PRN Reason: PROTOCOL Stop: 10/11/16 14:12 Morphine Sulfate (Morphine) 2 mg IV Q4HR PRN PRN Reason: Pain (Moderate) Stop: 10/15/16 13:36 Last Admin: 08/31/16 09:38 Dose: 2 mg Pantoprazole Sodium (Protonix) 40 mg IVP BID [facility] Stop: 10/19/16 16:59 Last Admin: 08/31/16 09:09 Dose: 40 mg Sodium Bicarbonate (Sodium Bicarb) 50 meq IVP BID [facility] Stop: 10/13/16 16:59 Last Admin: 08/31/16 09:10 Dose: 50 meq Sorbitol (Sorbitol) 100 ml PO DAILY [facility] Stop: 10/28/16 12:14 Last Admin: 08/31/16 10:40 Dose: Not Given General: Alert, Cooperative, No acute distress HEENT: Atraumatic, Mucous membr. moist/pink Neck: Supple, +2 carotid pulse wo bruit Cardiovascular: Regular rate, Normal S1, Normal S2 Lungs: Other (few rhonchi) Abdomen: Bowel sounds, Soft, Obese Extremities: Edema ((+) 3 bipedal edema) Neurological: Sensation intact Skin: no Rash - Procedures Procedures: Procedures Procedure Code Date ARTERY-VEIN NONAUTOGRAFT 24580 06/22/16 BLOOD TRANSFUSION SERVICE 48845 06/22/16 BYPASS L BRACH ART TO UP ARM VEIN W NONAUT SUB, OPEN [id number] 06/22/16 FLUOROSCOPY OF SUP VENA CAVA USING [facility] [employer], GUIDANCE [id number] 06/22/16 INSERTION OF INFUSION DEV INTO SUP VENA CAVA, PERC APPROACH [id number] 06/22/[address] CATHETER IN VEIN 71396 06/22/16 TRANSFUSE NONAUT RED BLOOD CELLS IN PERIPH VEIN, PERC [id number] 06/22/16 Assessment/Plan - Problem List Patient Problems: All Active Problems Anemia (Acute) D64.9 ESRD (end stage renal disease) (Acute) ESRD (end stage renal disease) on dialysis (Acute) N18.6, Z99.2 ESRD (end stage renal disease) on dialysis (Acute) N18.6, Z99.2 HYPOTENSION (Acute) HYPOXEMIA (Acute) MEDICAL EVALUATION PER DR FRY (Acute) funtional quadriperisis (Acute) septic shock (Acute) - Assessment Assessment: septic shock (better) esrd on hd persistent cellulitis b/l lower ext acute on chronic anemia possible gi bleed ohs chronic a. fib hypothyroid anasarca functional quadriplegia chronic venous stasis dermatitis acute decomp psychosis s/p left avg G (+) cocci in clusters septicemia new onset seizure activity Candidal Esophagitis, Antral gastritis - Plan Plan: Lab - Result Diagrams 07/19/16 09:50 Lab - Result Diagrams 07/22/16 05:21 Lab - Result Diagrams 07/24/16 05:00 Lab - Result Diagrams Lab - Result Diagrams 08/04/16 08:33 Lab - Result Diagrams 08/05/16 05:00 08/04/16 05:45 08/04/16 05:45 07/28/16 05:30 07/28/16 05:30 07/24/16 05:00 07/20/16 05:50 07/19/16 09:50 hgb/hct remain stable @ 9.9/30 culture grew G (+) cocci, WBC down to 10.4 continue ABx transfuse as necessary f/u electrolytes, cbc new right Anton cath new onset seiure activity schedule for HD tomorrow persistent anasarca, will dialyze 4x/week T,TH,SAT,M Lab - Result Diagrams 07/19/16 09:50 07/20/16 05:50 Lab - Result Diagrams 07/21/16 06:16 07/20/16 05:50 Lab - Result Diagrams 07/26/16 11:05 07/24/16 05:00 Lab - Result Diagrams 07/29/16 05:55 07/28/16 05:30 Lab - Result Diagrams 08/12/16 05:19 08/12/16 05:19 Lab - Result Diagrams 08/17/16 07:20 08/17/16 07:20 Lab - Result Diagrams 08/25/16 06:51 08/25/16 06:51
[2016-08-31] MEDS: Therahoney Gel 42.5gm Tube TP SCH (16:57)
[2016-09-01] MEDS: Hydrocortisone Sodium Succ 100 mg Vial IVP SCH ×4 (00:34→16:41)
[2016-09-01] MEDS: Morphine Sulfate 2 mg/mL 1mL Syr IV PRN ×4 (04:52→21:54)
[2016-09-01] MEDS: Sodium Bicarbonate 8.4% 50mEq PFS IVP SCH ×3 (09:06→16:42)
[2016-09-01] MEDS: Lactulose 10 Gm/15 mL 30mL UDC PO SCH ×4 (09:07→21:07)
[2016-09-01] MEDS: Lactobacillus Rhamnosus 10 Billion CFU Capsule PO SCH (09:07)
[2016-09-01] MEDS: Menthol/Zinc Oxide Oint 113gm Tube TP SCH ×5 (09:08→21:20)
[2016-09-01] MEDS: Therahoney Gel 42.5gm Tube TP SCH ×2 (09:09→09:30)
[2016-09-01 09:21] LABS: ANION GAP 11.7 (7.0-16.0); BUN/CREATININE RATIO 13.6; CALCIUM SERUM 8.5 mg/dL (8.6-10.3); POTASSIUM SERUM 3.7 mEq/L (3.5-5.1)
[2016-09-01 09:22] LABS: HEMATOCRIT 29.3 % (39.0-49.0); HEMOGLOBIN 9.8 gm/dL (13.2-17.3); MEAN CORPUSCULAR HEMOGLOBIN 27.6 pg (26.0-30.0); MEAN CORPUSCULAR HGB CONC 33.3 pg (28.0-36.0); MEAN PLATELET VOLUME 9.4 fl; RED BLOOD COUNT 3.53 Mil/cmm (4.30-5.70)
[2016-09-01 09:33] LABS: WHITE BLOOD COUNT 4.8 Th/cmm (4.8-10.8)
[2016-09-01 09:56] LABS: BAND NEUTROPHILE 1 % (0-10); NEUTROPHILS 86 % (40-80); PLATELET ESTIMATE DECREASED PLATELETS (NORMAL); TOTAL CELLS COUNTED 100
[2016-09-01 09:59] LABS: PLATELET COUNT 37 Th/cmm (150-400)
[2016-09-01 10:09] LABS: CREATININE - SERUM 4.7 mg/dL (0.7-1.3)
--- NOTE | 2016-09-01 10:39 | Infectious Disease Prog Note ---
Infectious Disease Subjective - Review of Systems Service Date: 09/01/16 Subjective: ,id line was leaking and it was pulled out. There is no fever. Infectious Disease Objective - Results Result Diagrams: 09/01/16 08:45 09/01/16 08:45 Recent Labs: Laboratory Last Values WBC 4.8 Th/cmm (4.8-10.8) D 09/01/16 08:45 RBC 3.53 Mil/cmm (4.30-5.70) L 09/01/16 08:45 Hgb 9.8 gm/dL (13.2-17.3) L 09/01/16 08:45 Hct 29.3 % (39.0-49.0) L 09/01/16 08:45 MCV 83.0 fl (80-99) 09/01/16 08:45 MCH 27.6 pg (26.0-30.0) 09/01/16 08:45 MCHC Differential 33.3 pg (28.0-36.0) 09/01/16 08:45 RDW 16.0 % (11.5-20.0) 09/01/16 08:45 Plt Count 37 Th/cmm (150-400) L D 09/01/16 08:45 MPV 9.4 fl 09/01/16 08:45 Neutrophils % 56.8 % (40.0-80.0) 07/07/16 06:00 Band Neutrophils % 1 % (0-10) 09/01/16 08:45 Lymphocytes % 18.4 % (20.0-50.0) L 07/07/16 06:00 Monocytes % 13.8 % (2.0-10.0) H 07/07/16 06:00 Eosinophils % 11.0 % (0.0-5.0) H 07/07/16 06:00 Basophils % 0.0 % (0.0-2.0) 07/07/16 06:00 Neutrophils (Manual) 86 % (40-80) H 09/01/16 08:45 Lymphocytes 6 % (20-50) L 09/01/16 08:45 Monocytes 7 % (2-10) 09/01/16 08:45 Eosinophils 1 % (0-5) 08/18/16 05:18 Basophils 3 % (0-3) 08/04/16 08:33 Metamyelocytes 1 % (0-0) H 08/14/16 07:40 Myelocytes 1 % 07/14/16 16:00 Nucleated RBCs 1.0 % (0-0) H 08/15/16 09:30 Hypochromia 1+ 07/20/16 23:30 Platelet Estimate DECREASED PLATELETS (NORMAL) 09/01/16 08:45 Platelet Morphology NORMAL (NORMAL) 08/25/16 06:51 Polychromasia 1+ 07/20/16 23:30 Anisocytosis 1+ 08/25/16 06:51 Microcytosis 1+ 07/14/16 16:00 RBC Morph Micro Appear ABNORMAL (NORMAL) 08/25/16 06:51 PT 15.4 SECONDS (9.5-11.5) H 08/23/16 04:35 INR 1.45 (0.5-1.4) H 08/23/16 04:35 PTT (Actin FS) 37.7 SECONDS (26.0-38.0) 08/17/16 07:20 Specimen Source Arterial 08/20/16 08:15 Sample Site Right Radial 08/20/16 08:15 pH 7.33 (7.35-7.45) L 08/20/16 08:15 pCO2 55.0 mmHg (35.0-45.0) H 08/20/16 08:15 pO2 92.0 mmHg (80.0-100.0) 08/20/16 08:15 HCO3 26.5 mEq/L (20.0-26.0) H 08/20/16 08:15 Base Excess 2.0 mEq/L (-3.0-3.0) 08/20/16 08:15 O2 Saturation 97.0 % (92.0-100.0) 08/20/16 08:15 Estuardo Test POSITIVE 08/20/16 08:15 Vent Rate NA 08/20/16 08:15 Inspired O2 32 08/20/16 08:15 Tidal Volume NA 08/20/16 08:15 PEEP NA 08/20/16 08:15 Pressure (ins/psv/peep) NA 08/20/16 08:15 Critical Value CSILVA 08/20/16 08:15 Sodium 133 mEq/L (136-145) L 09/01/16 08:45 Potassium 3.7 mEq/L (3.5-5.1) 09/01/16 08:45 Chloride 97 mEq/L (98-107) L 09/01/16 08:45 Carbon Dioxide 28.0 mEq/L (21.0-31.0) 09/01/16 08:45 Anion Gap 11.7 (7.0-16.0) 09/01/16 08:45 BUN 64 mg/dL (7-25) H 09/01/16 08:45 Creatinine 4.7 mg/dL (0.7-1.3) H* 09/01/16 08:45 Est GFR ( Amer) 17.1 ml/min (>90) 09/01/16 08:45 Est GFR (Non-Af Amer) 14.2 ml/min 09/01/16 08:45 BUN/Creatinine Ratio 13.6 09/01/16 08:45 Glucose 116 mg/dL (70-105) H 09/01/16 08:45 POC Glucose 111 MG/DL (70 - 105) H 08/15/16 08:03 Hemoglobin A1c % 4.8 % (4.0-6.0) 08/13/16 06:04 Whole Bld Lactic Acid 1.54 mmol/L (0.60-1.99) 08/13/16 06:04 Calcium 8.5 mg/dL (8.6-10.3) L 09/01/16 08:45 Phosphorus 5.5 mg/dL (2.5-5.0) H 07/19/16 09:50 Magnesium 1.9 mg/dL (1.9-2.7) 08/04/16 05:45 Iron 42 ug/dL (38-169) 06/28/16 04:38 TIBC 269 ug/dL (250-450) 06/28/16 04:38 Iron Saturation 16 % (15-55) 06/28/16 04:38 Unsaturated IBC 227 ug/dL (111-343) 06/28/16 04:38 Ferritin 150 ng/mL (30-400) 06/26/16 08:30 Total Bilirubin 0.9 mg/dL (0.3-1.0) 08/25/16 06:51 Direct Bilirubin 0.70 mg/dL (0.0-0.2) H 06/28/16 04:38 GGTP 14 IU/L (0-65) 06/28/16 04:38 AST 9 U/L (13-39) L 08/25/16 06:51 ALT 7 U/L (7-52) 08/25/16 06:51 Alkaline Phosphatase 31 U/L (34-104) L 08/25/16 06:51 Ammonia 73 umol/L (16-53) H 08/12/16 05:19 Troponin I < 0.01 ng/mL (0.01-0.05) L 06/22/16 19:33 B-Natriuretic Peptide 668.0 pg/mL (5.0-100.0) H 06/22/16 19:33 Total Protein 6.8 gm/dL (6.0-8.3) 08/25/16 06:51 Albumin 2.5 gm/dL (4.2-5.5) L 08/25/16 06:51 Globulin 4.3 gm/dL 08/25/16 06:51 Albumin/Globulin Ratio 0.6 (1.0-1.8) L 08/25/16 06:51 Amylase 28 U/L (29-103) L 07/02/16 06:40 Lipase 31 U/L (11-82) 07/02/16 06:40 TSH 2.98 uIU/ml (0.34-5.60) 08/13/16 06:04 Urine Source CLEAN C 06/29/16 05:55 Urine Color YELLOW 06/29/16 05:55 Urine Clarity HAZY (CLEAR) 06/29/16 05:55 Urine pH 5.5 06/29/16 05:55 Ur Specific [place] 1.015 (1.005-1.030) 06/29/16 05:55 Urine Protein 30 mg/dL (NEGATIVE) H 06/29/16 05:55 Urine Glucose (UA) NEGATIVE mg/dL (NEGATIVE) 06/29/16 05:55 Urine Ketones NEGATIVE mg/dL (NEGATIVE) 06/29/16 05:55 Urine Blood NEGATIVE (NEGATIVE) 06/29/16 05:55 Urine Nitrate NEGATIVE (NEGATIVE) 06/29/16 05:55 Urine Bilirubin NEGATIVE (NEGATIVE) 06/29/16 05:55 Urine Urobilinogen 0.2 E.U./dL (0.2 - 1.0) 06/29/16 05:55 Ur Leukocyte Esterase TRACE (NEGATIVE) H 06/29/16 05:55 Urine RBC 0-2 /hpf (0-5) H 06/29/16 05:55 Urine WBC 6-10 /hpf (0-5) H 06/29/16 05:55 Ur Epithelial Cells FEW /lpf (FEW) 06/29/16 05:55 Urine Bacteria MANY /hpf (NONE SEEN) 06/29/16 05:55 Stool Occult Blood POSITIVE (NEGATIVE) 08/17/16 11:00 Stool Leukocyte NO WBC SEEN 08/17/16 11:00 Gentamicin Trough ug/ml (0.2-2.0) 08/12/16 05:19 Random Vancomycin 16.1 ug/mL (5.0-40.0) 08/30/16 13:00 RPR NONREACTIVE (NONREACTIVE) 06/22/16 19:33 Helicobacter pylori Ab NEGATIVE (NEGATIVE) 08/23/16 12:00 Hepatitis A IgM Ab Negative (Negative) 06/29/16 05:49 Hep Bs Antigen Negative (Negative) 06/29/16 05:49 Hep B Core IgM Ab Negative (Negative) 06/29/16 05:49 Hepatitis C Antibody >11.0 s/co ratio (0.0-0.9) H 06/29/16 05:49 Blood Type A POSITIVE 08/10/16 21:07 Antibody Screen NEGATIVE 08/10/16 21:07 Crossmatch See Detail 08/10/16 21:07 - Physical Exam Vitals and I&O: Vital Signs Temp 98.4 F 09/01/16 04:00 Pulse 109 09/01/16 04:00 Resp 18 09/01/16 04:00 BP 108/72 09/01/16 04:00 Pulse Ox 98 09/01/16 04:00 Intake & Output 08/31/16 09/01/16 09/01/16 18:59 06:59 18:59 Intake Total 360 Balance 360 Intake: Oral 360 Other: # Bowel Movements 1 Active Medications: Current Medications Acetaminophen (Tylenol) 650 mg PO Q6H PRN PRN Reason: temperature above 100F Stop: 09/28/16 16:14 Last Admin: 07/30/16 16:27 Dose: 650 mg Calamine/Phenol (Calmoseptine) 1 appl TP QID [facility] Stop: 10/14/16 12:59 Last Admin: 09/01/16 09:08 Dose: 1 appl Diphenhydramine HCl (Benadryl 50 Mg/Ml) 25 mg IVP Q6HR PRN PRN Reason: itching Stop: 10/11/16 03:12 Last Admin: 08/14/16 11:25 Dose: 25 mg Docusate Sodium (Colace) 100 mg PO Q12HR [facility] Stop: 09/16/16 08:59 Last Admin: 09/01/16 09:07 Dose: 100 mg Hydrocortisone Sodium Succinate (Solu-Cortef) 50 mg IVP Q8H [facility] Stop: 10/09/16 15:59 Last Admin: 09/01/16 09:06 Dose: 50 mg Sodium Chloride (Nacl 0.9%) 1,000 mls @ 10 mls/hr IV .Q24H [facility] Stop: 10/15/16 15:01 Last Admin: 08/30/16 12:44 Dose: 10 mls/hr Lactobacillus Rhamnosus (Culturelle) 1 each PO DAILY [facility] Stop: 10/12/16 08:59 Last Admin: 09/01/16 09:07 Dose: 1 each Lactulose (Cephulac) 30 gm PO QID [facility] Stop: 10/28/16 12:59 Last Admin: 09/01/16 09:07 Dose: Not Given Levetiracetam (Keppra) 500 mg PO BID [facility] Stop: 10/19/16 16:59 Last Admin: 09/01/16 09:07 Dose: 500 mg Lorazepam (Ativan) 2 mg IVP Q2HR PRN; Protocol PRN Reason: Seizures Stop: 10/19/16 10:06 Miscellaneous (Clinical Monitoring) 1 ea MC DAILY PRN PRN Reason: RENAL Stop: 10/06/16 08:17 Miscellaneous (Probiotic Screen) 1 ea MC PRN PRN PRN Reason: PROTOCOL Stop: 10/11/16 14:12 Morphine Sulfate (Morphine) 2 mg IV Q4HR PRN PRN Reason: Pain (Moderate) Stop: 10/15/16 13:36 Last Admin: 09/01/16 04:52 Dose: 2 mg Pantoprazole Sodium (Protonix) 40 mg IVP BID [facility] Stop: 10/19/16 16:59 Last Admin: 04/15/17 09:06 Dose: 40 mg Sodium Bicarbonate (Sodium Bicarb) 50 meq IVP BID [facility] Stop: 10/13/16 16:59 Last Admin: 09/01/16 09:07 Dose: 50 meq Sorbitol (Sorbitol) 100 ml PO DAILY [facility] Stop: 10/28/16 12:14 Last Admin: 09/01/16 09:22 Dose: Not Given Wound Care/Dressing Products (Therahoney) 1 appl TP DAILY [facility] Stop: 10/30/16 15:59 Last Admin: 09/01/16 09:09 Dose: 1 appl General: no acute distress, other (obese) HEENT: atraumatic, normocephalic Neck: supple Cardiovascular: S1S2, regular Lungs: clear to auscultation bilaterally, clear to percussion Abdomen: soft, no tender, no distended Extremities: no cyanosis, no clubbing, no edema Neurological: awake, alert, oriented, CN 2-12 intact Skin: intact - Procedures Procedures: Procedures Procedure Code Date ARTERY-VEIN NONAUTOGRAFT 21379 06/22/16 BLOOD TRANSFUSION SERVICE 03508 06/22/16 BYPASS L BRACH ART TO UP ARM VEIN W NONAUT SUB, OPEN [id number] 06/22/16 FLUOROSCOPY OF SUP VENA CAVA USING [facility] CONTRAST, GUIDANCE [id number] 06/22/16 INSERTION OF INFUSION DEV INTO SUP VENA CAVA, PERC APPROACH [id number] 06/22/[address] CATHETER IN VEIN 59956 06/22/16 TRANSFUSE NONAUT RED BLOOD CELLS IN PERIPH VEIN, PERC [id number] 06/22/16 Infectious Disease Assmt/Plan - Problem List Patient Problems: All Active Problems Anemia (Acute) D64.9 ESRD (end stage renal disease) (Acute) ESRD (end stage renal disease) on dialysis (Acute) N18.6, Z99.2 ESRD (end stage renal disease) on dialysis (Acute) N18.6, Z99.2 HYPOTENSION (Acute) HYPOXEMIA (Acute) MEDICAL EVALUATION PER DR FRY (Acute) funtional quadriperisis (Acute) septic shock (Acute) - Assessment Assessment: 1. Septic shock. resolved. likely line sepsis. MRSA sepsis. 3/4 positive. 2. Pneumonia. 3. CKD 5 on HD. 4. Morbid obesity. 5. hep C. 6. Cellulitis of legs. improved. treated. 7. Lymphedema of legs. 8. CHF. 9. CDAC. 10. Maria C esophagitis. - Plan Plan: Continue vanco IV . Continue Diflucan.
--- NOTE | 2016-09-01 13:56 | General Progress Note ---
Subjective - Review of Systems Service Date: 09/01/16 Subjective: alert, comfortable, on NC, verbal, more ccoperative Objective - Results Result Diagrams: 09/01/16 08:45 09/01/16 08:45 Recent Labs: Laboratory Last Values WBC 4.8 Th/cmm (4.8-10.8) D 09/01/16 08:45 RBC 3.53 Mil/cmm (4.30-5.70) L 09/01/16 08:45 Hgb 9.8 gm/dL (13.2-17.3) L 09/01/16 08:45 Hct 29.3 % (39.0-49.0) L 09/01/16 08:45 MCV 83.0 fl (80-99) 09/01/16 08:45 MCH 27.6 pg (26.0-30.0) 09/01/16 08:45 MCHC Differential 33.3 pg (28.0-36.0) 09/01/16 08:45 RDW 16.0 % (11.5-20.0) 09/01/16 08:45 Plt Count 37 Th/cmm (150-400) L D 09/01/16 08:45 MPV 9.4 fl 09/01/16 08:45 Neutrophils % 56.8 % (40.0-80.0) 07/07/16 06:00 Band Neutrophils % 1 % (0-10) 09/01/16 08:45 Lymphocytes % 18.4 % (20.0-50.0) L 07/07/16 06:00 Monocytes % 13.8 % (2.0-10.0) H 07/07/16 06:00 Eosinophils % 11.0 % (0.0-5.0) H 07/07/16 06:00 Basophils % 0.0 % (0.0-2.0) 07/07/16 06:00 Neutrophils (Manual) 86 % (40-80) H 09/01/16 08:45 Lymphocytes 6 % (20-50) L 09/01/16 08:45 Monocytes 7 % (2-10) 09/01/16 08:45 Eosinophils 1 % (0-5) 08/18/16 05:18 Basophils 3 % (0-3) 08/04/16 08:33 Metamyelocytes 1 % (0-0) H 08/14/16 07:40 Myelocytes 1 % 07/14/16 16:00 Nucleated RBCs 1.0 % (0-0) H 08/15/16 09:30 Hypochromia 1+ 07/20/16 23:30 Platelet Estimate DECREASED PLATELETS (NORMAL) 09/01/16 08:45 Platelet Morphology NORMAL (NORMAL) 08/25/16 06:51 Polychromasia 1+ 07/20/16 23:30 Anisocytosis 1+ 08/25/16 06:51 Microcytosis 1+ 07/14/16 16:00 RBC Morph Micro Appear ABNORMAL (NORMAL) 08/25/16 06:51 PT 15.4 SECONDS (9.5-11.5) H 08/23/16 04:35 INR 1.45 (0.5-1.4) H 08/23/16 04:35 PTT (Actin FS) 37.7 SECONDS (26.0-38.0) 08/17/16 07:20 Specimen Source Arterial 08/20/16 08:15 Sample Site Right Radial 08/20/16 08:15 pH 7.33 (7.35-7.45) L 08/20/16 08:15 pCO2 55.0 mmHg (35.0-45.0) H 08/20/16 08:15 pO2 92.0 mmHg (80.0-100.0) 08/20/16 08:15 HCO3 26.5 mEq/L (20.0-26.0) H 08/20/16 08:15 Base Excess 2.0 mEq/L (-3.0-3.0) 08/20/16 08:15 O2 Saturation 97.0 % (92.0-100.0) 08/20/16 08:15 Estuardo Test POSITIVE 08/20/16 08:15 Vent Rate NA 08/20/16 08:15 Inspired O2 32 08/20/16 08:15 Tidal Volume NA 08/20/16 08:15 PEEP NA 08/20/16 08:15 Pressure (ins/psv/peep) NA 08/20/16 08:15 Critical Value CSILVA 08/20/16 08:15 Sodium 133 mEq/L (136-145) L 09/01/16 08:45 Potassium 3.7 mEq/L (3.5-5.1) 09/01/16 08:45 Chloride 97 mEq/L (98-107) L 09/01/16 08:45 Carbon Dioxide 28.0 mEq/L (21.0-31.0) 09/01/16 08:45 Anion Gap 11.7 (7.0-16.0) 09/01/16 08:45 BUN 64 mg/dL (7-25) H 09/01/16 08:45 Creatinine 4.7 mg/dL (0.7-1.3) H* 09/01/16 08:45 Est GFR ( Amer) 17.1 ml/min (>90) 09/01/16 08:45 Est GFR (Non-Af Amer) 14.2 ml/min 09/01/16 08:45 BUN/Creatinine Ratio 13.6 09/01/16 08:45 Glucose 116 mg/dL (70-105) H 09/01/16 08:45 POC Glucose 111 MG/DL (70 - 105) H 08/15/16 08:03 Hemoglobin A1c % 4.8 % (4.0-6.0) 08/13/16 06:04 Whole Bld Lactic Acid 1.54 mmol/L (0.60-1.99) 08/13/16 06:04 Calcium 8.5 mg/dL (8.6-10.3) L 09/01/16 08:45 Phosphorus 5.5 mg/dL (2.5-5.0) H 07/19/16 09:50 Magnesium 1.9 mg/dL (1.9-2.7) 08/04/16 05:45 Iron 42 ug/dL (38-169) 06/28/16 04:38 TIBC 269 ug/dL (250-450) 06/28/16 04:38 Iron Saturation 16 % (15-55) 06/28/16 04:38 Unsaturated IBC 227 ug/dL (111-343) 06/28/16 04:38 Ferritin 150 ng/mL (30-400) 06/26/16 08:30 Total Bilirubin 0.9 mg/dL (0.3-1.0) 08/25/16 06:51 Direct Bilirubin 0.70 mg/dL (0.0-0.2) H 06/28/16 04:38 GGTP 14 IU/L (0-65) 06/28/16 04:38 AST 9 U/L (13-39) L 08/25/16 06:51 ALT 7 U/L (7-52) 08/25/16 06:51 Alkaline Phosphatase 31 U/L (34-104) L 08/25/16 06:51 Ammonia 73 umol/L (16-53) H 08/12/16 05:19 Troponin I < 0.01 ng/mL (0.01-0.05) L 06/22/16 19:33 B-Natriuretic Peptide 668.0 pg/mL (5.0-100.0) H 06/22/16 19:33 Total Protein 6.8 gm/dL (6.0-8.3) 08/25/16 06:51 Albumin 2.5 gm/dL (4.2-5.5) L 08/25/16 06:51 Globulin 4.3 gm/dL 08/25/16 06:51 Albumin/Globulin Ratio 0.6 (1.0-1.8) L 08/25/16 06:51 Amylase 28 U/L (29-103) L 07/02/16 06:40 Lipase 31 U/L (11-82) 07/02/16 06:40 TSH 2.98 uIU/ml (0.34-5.60) 08/13/16 06:04 Urine Source CLEAN C 06/29/16 05:55 Urine Color YELLOW 06/29/16 05:55 Urine Clarity HAZY (CLEAR) 06/29/16 05:55 Urine pH 5.5 06/29/16 05:55 Ur Specific [place] 1.015 (1.005-1.030) 06/29/16 05:55 Urine Protein 30 mg/dL (NEGATIVE) H 06/29/16 05:55 Urine Glucose (UA) NEGATIVE mg/dL (NEGATIVE) 06/29/16 05:55 Urine Ketones NEGATIVE mg/dL (NEGATIVE) 06/29/16 05:55 Urine Blood NEGATIVE (NEGATIVE) 06/29/16 05:55 Urine Nitrate NEGATIVE (NEGATIVE) 06/29/16 05:55 Urine Bilirubin NEGATIVE (NEGATIVE) 06/29/16 05:55 Urine Urobilinogen 0.2 E.U./dL (0.2 - 1.0) 06/29/16 05:55 Ur Leukocyte Esterase TRACE (NEGATIVE) H 06/29/16 05:55 Urine RBC 0-2 /hpf (0-5) H 06/29/16 05:55 Urine WBC 6-10 /hpf (0-5) H 06/29/16 05:55 Ur Epithelial Cells FEW /lpf (FEW) 06/29/16 05:55 Urine Bacteria MANY /hpf (NONE SEEN) 06/29/16 05:55 Stool Occult Blood POSITIVE (NEGATIVE) 08/17/16 11:00 Stool Leukocyte NO WBC SEEN 08/17/16 11:00 Gentamicin Trough ug/ml (0.2-2.0) 08/12/16 05:19 Random Vancomycin 16.1 ug/mL (5.0-40.0) 08/30/16 13:00 RPR NONREACTIVE (NONREACTIVE) 06/22/16 19:33 Helicobacter pylori Ab NEGATIVE (NEGATIVE) 08/23/16 12:00 Hepatitis A IgM Ab Negative (Negative) 06/29/16 05:49 Hep Bs Antigen Negative (Negative) 06/29/16 05:49 Hep B Core IgM Ab Negative (Negative) 06/29/16 05:49 Hepatitis C Antibody >11.0 s/co ratio (0.0-0.9) H 06/29/16 05:49 Blood Type A POSITIVE 08/10/16 21:07 Antibody Screen NEGATIVE 08/10/16 21:07 Crossmatch See Detail 08/10/16 21:07 - Physical Exam Vitals and I&O: Vital Signs Temp 98.4 F 09/01/16 12:00 Pulse 119 09/01/16 12:00 Resp 20 09/01/16 12:00 BP 109/64 09/01/16 12:00 Pulse Ox 95 09/01/16 12:00 Intake & Output 08/31/16 09/01/16 09/01/16 18:59 06:59 18:59 Intake Total 360 Balance 360 Intake: Oral 360 Other: # Bowel Movements 1 Stool Characteristics Soft Active Medications: Current Medications Acetaminophen (Tylenol) 650 mg PO Q6H PRN PRN Reason: temperature above 100F Stop: 09/28/16 16:14 Last Admin: 07/30/16 16:27 Dose: 650 mg Calamine/Phenol (Calmoseptine) 1 appl TP QID [facility] Stop: 10/14/16 12:59 Last Admin: 09/01/16 09:08 Dose: 1 appl Diphenhydramine HCl (Benadryl 50 Mg/Ml) 25 mg IVP Q6HR PRN PRN Reason: itching Stop: 10/11/16 03:12 Last Admin: 08/14/16 11:25 Dose: 25 mg Docusate Sodium (Colace) 100 mg PO Q12HR [facility] Stop: 09/16/16 08:59 Last Admin: 09/01/16 09:07 Dose: 100 mg Fluconazole (Diflucan) 100 mg PO DAILY [facility] Stop: 09/05/16 08:59 Hydrocortisone Sodium Succinate (Solu-Cortef) 50 mg IVP Q8H [facility] Stop: 10/09/16 15:59 Last Admin: 09/01/16 09:06 Dose: Not Given Sodium Chloride (Nacl 0.9%) 1,000 mls @ 10 mls/hr IV .Q24H [facility] Stop: 10/15/16 15:01 Last Admin: 08/30/16 12:44 Dose: 10 mls/hr Lactobacillus Rhamnosus (Culturelle) 1 each PO DAILY [facility] Stop: 10/12/16 08:59 Last Admin: 09/01/16 09:07 Dose: 1 each Lactulose (Cephulac) 30 gm PO QID [facility] Stop: 10/28/16 12:59 Last Admin: 09/01/16 13:24 Dose: Not Given Levetiracetam (Keppra) 500 mg PO BID [facility] Stop: 10/19/16 16:59 Last Admin: 09/01/16 09:07 Dose: 500 mg Lorazepam (Ativan) 2 mg IVP Q2HR PRN; Protocol PRN Reason: Seizures Stop: 10/19/16 10:06 Miscellaneous (Clinical Monitoring) 1 ea MC DAILY PRN PRN Reason: RENAL Stop: 10/06/16 08:17 Miscellaneous (Probiotic Screen) 1 ea MC PRN PRN PRN Reason: PROTOCOL Stop: 10/11/16 14:12 Morphine Sulfate (Morphine) 2 mg IV Q4HR PRN PRN Reason: Pain (Moderate) Stop: 10/15/16 13:36 Last Admin: 09/01/16 11:50 Dose: 2 mg Pantoprazole Sodium (Protonix) 40 mg IVP BID [facility] Stop: 10/19/16 16:59 Last Admin: 09/01/16 09:06 Dose: Not Given Sodium Bicarbonate (Sodium Bicarb) 50 meq IVP BID [facility] Stop: 10/13/16 16:59 Last Admin: 09/01/16 09:06 Dose: Not Given Sorbitol (Sorbitol) 100 ml PO DAILY [facility] Stop: 10/28/16 12:14 Last Admin: 09/01/16 09:00 Dose: Not Given Wound Care/Dressing Products (Therahoney) 1 appl TP DAILY [facility] Stop: 10/30/16 15:59 Last Admin: 09/01/16 09:09 Dose: 1 appl General: Alert, Cooperative, No acute distress HEENT: Atraumatic, Mucous membr. moist/pink Neck: Supple, +2 carotid pulse wo bruit Cardiovascular: Regular rate, Normal S1, Normal S2 Lungs: Other (few rhonchi) Abdomen: Bowel sounds, Soft, Obese Extremities: Edema ((+) 3 bipedal edema) Neurological: Sensation intact Skin: no Rash - Procedures Procedures: Procedures Procedure Code Date ARTERY-VEIN NONAUTOGRAFT 84450 06/22/16 BLOOD TRANSFUSION SERVICE 36998 06/22/16 BYPASS L BRACH ART TO UP ARM VEIN W NONAUT SUB, OPEN [id number] 06/22/16 FLUOROSCOPY OF SUP VENA CAVA USING [facility] CONTRAST, GUIDANCE [id number] 06/22/16 INSERTION OF INFUSION DEV INTO SUP VENA CAVA, PERC APPROACH [id number] 06/22/[address] CATHETER IN VEIN 96668 06/22/16 TRANSFUSE NONAUT RED BLOOD CELLS IN PERIPH VEIN, [facility] [id number] 06/22/16 Assessment/Plan - Problem List Patient Problems: All Active Problems Anemia (Acute) D64.9 ESRD (end stage renal disease) (Acute) ESRD (end stage renal disease) on dialysis (Acute) N18.6, Z99.2 ESRD (end stage renal disease) on dialysis (Acute) N18.6, Z99.2 HYPOTENSION (Acute) HYPOXEMIA (Acute) MEDICAL EVALUATION PER DR FRY (Acute) funtional quadriperisis (Acute) septic shock (Acute) - Assessment Assessment: septic shock (better) esrd on hd persistent cellulitis b/l lower ext acute on chronic anemia possible gi bleed ohs chronic a. fib hypothyroid anasarca functional quadriplegia chronic venous stasis dermatitis acute decomp psychosis s/p left avg G (+) cocci in clusters septicemia new onset seizure activity Candidal Esophagitis, Antral gastritis - Plan Plan: Lab - Result Diagrams 07/19/16 09:50 Lab - Result Diagrams 07/22/16 05:21 Lab - Result Diagrams 07/24/16 05:00 Lab - Result Diagrams Lab - Result Diagrams 08/04/16 08:33 Lab - Result Diagrams 08/05/16 05:00 08/04/16 05:45 08/04/16 05:45 07/28/16 05:30 07/28/16 05:30 07/24/16 05:00 07/20/16 05:50 07/19/16 09:50 hgb/hct remain stable @ 9.8/29.3 culture grew G (+) cocci, WBC down to 4.8 continue ABx transfuse as necessary f/u electrolytes, cbc new right Anton cath new onset seiure activity schedule for HD tomorrow persistent anasarca, will dialyze 4x/week T,TH,SAT,M requires new PICC line because no access for iv ABx Lab - Result Diagrams 07/19/16 09:50 07/20/16 05:50 Lab - Result Diagrams 07/21/16 06:16 07/20/16 05:50 Lab - Result Diagrams 07/26/16 11:05 07/24/16 05:00 Lab - Result Diagrams 07/29/16 05:55 07/28/16 05:30 Lab - Result Diagrams 08/12/16 05:19 08/12/16 05:19 Lab - Result Diagrams 08/17/16 07:20 08/17/16 07:20 Lab - Result Diagrams 08/25/16 06:51 08/25/16 06:51
[2016-09-02] MEDS: Hydrocortisone Sodium Succ 100 mg Vial IVP SCH ×2 (00:31→09:23)
[2016-09-02] MEDS: Morphine Sulfate 2 mg/mL 1mL Syr IV PRN ×3 (01:59→11:12)
--- NOTE | 2016-09-02 04:44 | Progress Notes ---
DATE: 09/01/2016 SUBJECTIVE: The patient was seen in his room, having hemodialysis. Per patient, he is doing okay, less episodes of shortness of breath, has been using the nasal cannula. According to the nurses, the patient's midline came off and they are going to be reinserting a new one for antibiotic management. OBJECTIVE: GENERAL: The patient is morbidly obese. HEENT: Head is atraumatic, normocephalic. Eyes: Bilateral pupils are equally round and reactive. Conjunctivae are clear from injections. NECK: Supple. No JVD. CARDIOVASCULAR: S1 and S2 heard regularly. GASTROINTESTINAL: Soft and nontender without guarding. MUSCULOSKELETAL: Bilateral lower extremity edema without clubbing. ASSESSMENT: 1. End-stage renal disease, hemodialysis dependent. 2. Respiratory failure. 3. Atrial fibrillation. 4. Hypothyroidism. 5. Obesity. 6. Anemia. 7. Chronic lymphadenopathy. 8. History of psychosis. 9. Seizure. 10. Maria C esophagitis. PLAN: We will have reinsertion of the midline for continuity of IV antibiotics. We will follow up with ID doctor for antibiotic management, and we will follow up with the professor of pathology regarding hemodialysis scheduling, and then also we will follow up with the discharge plan regarding the patient's disposition. JOB# [id number]
--- NOTE | 2016-09-02 08:38 | General Progress Note ---
Subjective - Review of Systems Events since last encounter: patient improving Subjective: pt is still sob c/o weakness getting better Objective - Results Result Diagrams: 09/01/16 08:45 09/01/16 08:45 Recent Labs: Laboratory Last Values WBC 4.8 Th/cmm (4.8-10.8) D 09/01/16 08:45 RBC 3.53 Mil/cmm (4.30-5.70) L 09/01/16 08:45 Hgb 9.8 gm/dL (13.2-17.3) L 09/01/16 08:45 Hct 29.3 % (39.0-49.0) L 09/01/16 08:45 MCV 83.0 fl (80-99) 09/01/16 08:45 MCH 27.6 pg (26.0-30.0) 09/01/16 08:45 MCHC Differential 33.3 pg (28.0-36.0) 09/01/16 08:45 RDW 16.0 % (11.5-20.0) 09/01/16 08:45 Plt Count 37 Th/cmm (150-400) L D 09/01/16 08:45 MPV 9.4 fl 09/01/16 08:45 Neutrophils % 56.8 % (40.0-80.0) 07/07/16 06:00 Band Neutrophils % 1 % (0-10) 09/01/16 08:45 Lymphocytes % 18.4 % (20.0-50.0) L 07/07/16 06:00 Monocytes % 13.8 % (2.0-10.0) H 07/07/16 06:00 Eosinophils % 11.0 % (0.0-5.0) H 07/07/16 06:00 Basophils % 0.0 % (0.0-2.0) 07/07/16 06:00 Neutrophils (Manual) 86 % (40-80) H 09/01/16 08:45 Lymphocytes 6 % (20-50) L 09/01/16 08:45 Monocytes 7 % (2-10) 09/01/16 08:45 Eosinophils 1 % (0-5) 08/18/16 05:18 Basophils 3 % (0-3) 08/04/16 08:33 Metamyelocytes 1 % (0-0) H 08/14/16 07:40 Myelocytes 1 % 07/14/16 16:00 Nucleated RBCs 1.0 % (0-0) H 08/15/16 09:30 Hypochromia 1+ 07/20/16 23:30 Platelet Estimate DECREASED PLATELETS (NORMAL) 09/01/16 08:45 Platelet Morphology NORMAL (NORMAL) 08/25/16 06:51 Polychromasia 1+ 07/20/16 23:30 Anisocytosis 1+ 08/25/16 06:51 Microcytosis 1+ 07/14/16 16:00 RBC Morph Micro Appear ABNORMAL (NORMAL) 08/25/16 06:51 PT 15.4 SECONDS (9.5-11.5) H 08/23/16 04:35 INR 1.45 (0.5-1.4) H 08/23/16 04:35 PTT (Actin FS) 37.7 SECONDS (26.0-38.0) 08/17/16 07:20 Specimen Source Arterial 08/20/16 08:15 Sample Site Right Radial 08/20/16 08:15 pH 7.33 (7.35-7.45) L 08/20/16 08:15 pCO2 55.0 mmHg (35.0-45.0) H 08/20/16 08:15 pO2 92.0 mmHg (80.0-100.0) 08/20/16 08:15 HCO3 26.5 mEq/L (20.0-26.0) H 08/20/16 08:15 Base Excess 2.0 mEq/L (-3.0-3.0) 08/20/16 08:15 O2 Saturation 97.0 % (92.0-100.0) 08/20/16 08:15 Estuardo Test POSITIVE 08/20/16 08:15 Vent Rate NA 08/20/16 08:15 Inspired O2 32 08/20/16 08:15 Tidal Volume NA 08/20/16 08:15 PEEP NA 08/20/16 08:15 Pressure (ins/psv/peep) NA 08/20/16 08:15 Critical Value CSILVA 08/20/16 08:15 Sodium 133 mEq/L (136-145) L 09/01/16 08:45 Potassium 3.7 mEq/L (3.5-5.1) 09/01/16 08:45 Chloride 97 mEq/L (98-107) L 09/01/16 08:45 Carbon Dioxide 28.0 mEq/L (21.0-31.0) 09/01/16 08:45 Anion Gap 11.7 (7.0-16.0) 09/01/16 08:45 BUN 64 mg/dL (7-25) H 09/01/16 08:45 Creatinine 4.7 mg/dL (0.7-1.3) H* 09/01/16 08:45 Est GFR ( Amer) 17.1 ml/min (>90) 09/01/16 08:45 Est GFR (Non-Af Amer) 14.2 ml/min 09/01/16 08:45 BUN/Creatinine Ratio 13.6 09/01/16 08:45 Glucose 116 mg/dL (70-105) H 09/01/16 08:45 POC Glucose 111 MG/DL (70 - 105) H 08/15/16 08:03 Hemoglobin A1c % 4.8 % (4.0-6.0) 08/13/16 06:04 Whole Bld Lactic Acid 1.54 mmol/L (0.60-1.99) 08/13/16 06:04 Calcium 8.5 mg/dL (8.6-10.3) L 09/01/16 08:45 Phosphorus 5.5 mg/dL (2.5-5.0) H 07/19/16 09:50 Magnesium 1.9 mg/dL (1.9-2.7) 08/04/16 05:45 Iron 42 ug/dL (38-169) 06/28/16 04:38 TIBC 269 ug/dL (250-450) 06/28/16 04:38 Iron Saturation 16 % (15-55) 06/28/16 04:38 Unsaturated IBC 227 ug/dL (111-343) 06/28/16 04:38 Ferritin 150 ng/mL (30-400) 06/26/16 08:30 Total Bilirubin 0.9 mg/dL (0.3-1.0) 08/25/16 06:51 Direct Bilirubin 0.70 mg/dL (0.0-0.2) H 06/28/16 04:38 GGTP 14 IU/L (0-65) 06/28/16 04:38 AST 9 U/L (13-39) L 08/25/16 06:51 ALT 7 U/L (7-52) 08/25/16 06:51 Alkaline Phosphatase 31 U/L (34-104) L 08/25/16 06:51 Ammonia 73 umol/L (16-53) H 08/12/16 05:19 Troponin I < 0.01 ng/mL (0.01-0.05) L 06/22/16 19:33 B-Natriuretic Peptide 668.0 pg/mL (5.0-100.0) H 06/22/16 19:33 Total Protein 6.8 gm/dL (6.0-8.3) 08/25/16 06:51 Albumin 2.5 gm/dL (4.2-5.5) L 08/25/16 06:51 Globulin 4.3 gm/dL 08/25/16 06:51 Albumin/Globulin Ratio 0.6 (1.0-1.8) L 08/25/16 06:51 Amylase 28 U/L (29-103) L 07/02/16 06:40 Lipase 31 U/L (11-82) 07/02/16 06:40 TSH 2.98 uIU/ml (0.34-5.60) 08/13/16 06:04 Urine Source CLEAN C 06/29/16 05:55 Urine Color YELLOW 06/29/16 05:55 Urine Clarity HAZY (CLEAR) 06/29/16 05:55 Urine pH 5.5 06/29/16 05:55 Ur Specific [place] 1.015 (1.005-1.030) 06/29/16 05:55 Urine Protein 30 mg/dL (NEGATIVE) H 06/29/16 05:55 Urine Glucose (UA) NEGATIVE mg/dL (NEGATIVE) 06/29/16 05:55 Urine Ketones NEGATIVE mg/dL (NEGATIVE) 06/29/16 05:55 Urine Blood NEGATIVE (NEGATIVE) 06/29/16 05:55 Urine Nitrate NEGATIVE (NEGATIVE) 06/29/16 05:55 Urine Bilirubin NEGATIVE (NEGATIVE) 06/29/16 05:55 Urine Urobilinogen 0.2 E.U./dL (0.2 - 1.0) 06/29/16 05:55 Ur Leukocyte Esterase TRACE (NEGATIVE) H 06/29/16 05:55 Urine RBC 0-2 /hpf (0-5) H 06/29/16 05:55 Urine WBC 6-10 /hpf (0-5) H 06/29/16 05:55 Ur Epithelial Cells FEW /lpf (FEW) 06/29/16 05:55 Urine Bacteria MANY /hpf (NONE SEEN) 06/29/16 05:55 Stool Occult Blood POSITIVE (NEGATIVE) 08/17/16 11:00 Stool Leukocyte NO WBC SEEN 08/17/16 11:00 Gentamicin Trough ug/ml (0.2-2.0) 08/12/16 05:19 Random Vancomycin 16.1 ug/mL (5.0-40.0) 08/30/16 13:00 RPR NONREACTIVE (NONREACTIVE) 06/22/16 19:33 Helicobacter pylori Ab NEGATIVE (NEGATIVE) 08/23/16 12:00 Hepatitis A IgM Ab Negative (Negative) 06/29/16 05:49 Hep Bs Antigen Negative (Negative) 06/29/16 05:49 Hep B Core IgM Ab Negative (Negative) 06/29/16 05:49 Hepatitis C Antibody >11.0 s/co ratio (0.0-0.9) H 06/29/16 05:49 Blood Type A POSITIVE 08/10/16 21:07 Antibody Screen NEGATIVE 08/10/16 21:07 Crossmatch See Detail 08/10/16 21:07 - Physical Exam Vitals and I&O: Vital Signs Temp 100.0 F 09/02/16 04:00 Pulse 124 09/02/16 04:00 Resp 20 09/02/16 04:00 BP 103/65 09/02/16 04:00 Pulse Ox 94 09/02/16 04:00 Intake & Output 09/01/16 09/02/16 09/02/16 18:59 06:59 18:59 Intake Total 500 1550 Balance 500 1550 Intake: Oral 500 1550 Other: # Voids 2 # Bowel Movements 1 Stool Characteristics Soft Soft Liquid Brown Active Medications: Current Medications Acetaminophen (Tylenol) 650 mg PO Q6H PRN PRN Reason: temperature above 100F Stop: 09/28/16 16:14 Last Admin: 09/02/16 00:23 Dose: 650 mg Calamine/Phenol (Calmoseptine) 1 appl TP QID [facility] Stop: 10/14/16 12:59 Last Admin: 09/01/16 21:20 Dose: 1 appl Diphenhydramine HCl (Benadryl 50 Mg/Ml) 25 mg IVP Q6HR PRN PRN Reason: itching Stop: 10/11/16 03:12 Last Admin: 08/14/16 11:25 Dose: 25 mg Docusate Sodium (Colace) 100 mg PO Q12HR [facility] Stop: 09/16/16 08:59 Last Admin: 09/01/16 21:07 Dose: Not Given Fluconazole (Diflucan) 100 mg PO DAILY [facility] Stop: 09/05/16 08:59 Hydrocortisone Sodium Succinate (Solu-Cortef) 50 mg IVP Q8H [facility] Stop: 10/09/16 15:59 Last Admin: 09/02/16 00:31 Dose: Not Given Sodium Chloride (Nacl 0.9%) 1,000 mls @ 10 mls/hr IV .Q24H [facility] Stop: 10/15/16 15:01 Last Admin: 08/30/16 12:44 Dose: 10 mls/hr Lactobacillus Rhamnosus (Culturelle) 1 each PO DAILY [facility] Stop: 10/12/16 08:59 Last Admin: 09/01/16 09:07 Dose: 1 each Lactulose (Cephulac) 30 gm PO QID [facility] Stop: 10/28/16 12:59 Last Admin: 09/01/16 21:07 Dose: Not Given Levetiracetam (Keppra) 500 mg PO BID [facility] Stop: 10/19/16 16:59 Last Admin: 09/01/16 16:42 Dose: 500 mg Lorazepam (Ativan) 2 mg IVP Q2HR PRN; Protocol PRN Reason: Seizures Stop: 10/19/16 10:06 Miscellaneous (Clinical Monitoring) 1 ea MC DAILY PRN PRN Reason: RENAL Stop: 10/06/16 08:17 Miscellaneous (Probiotic Screen) 1 ea MC PRN PRN PRN Reason: PROTOCOL Stop: 10/11/16 14:12 Morphine Sulfate (Morphine) 2 mg IV Q4HR PRN PRN Reason: Pain (Moderate) Stop: 10/15/16 13:36 Last Admin: 09/02/16 05:52 Dose: 2 mg Pantoprazole Sodium (Protonix) 40 mg IVP BID [facility] Stop: 10/19/16 16:59 Last Admin: 09/01/16 16:42 Dose: 40 mg Sodium Bicarbonate (Sodium Bicarb) 50 meq IVP BID [facility] Stop: 10/13/16 16:59 Last Admin: 09/01/16 16:42 Dose: 50 meq Sorbitol (Sorbitol) 100 ml PO DAILY [facility] Stop: 10/28/16 12:14 Last Admin: 09/01/16 09:00 Dose: Not Given Wound Care/Dressing Products (Therahoney) 1 appl TP DAILY [facility] Stop: 10/30/16 15:59 Last Admin: 09/01/16 09:30 Dose: Not Given - Procedures Procedures: Procedures Procedure Code Date ARTERY-VEIN NONAUTOGRAFT 74028 06/22/16 BLOOD TRANSFUSION SERVICE 24090 06/22/16 BYPASS L BRACH ART TO UP ARM VEIN W NONAUT SUB, OPEN [id number] 06/22/16 FLUOROSCOPY OF SUP VENA CAVA USING [facility] CONTRAST, GUIDANCE [id number] 06/22/16 INSERTION OF INFUSION DEV INTO SUP VENA CAVA, PERC APPROACH [id number] 06/22/[address] CATHETER IN VEIN 51502 06/22/16 TRANSFUSE NONAUT RED BLOOD CELLS IN PERIPH VEIN, PERC [id number] 06/22/16 Assessment/Plan - Problem List Patient Problems: All Active Problems Anemia (Acute) D64.9 ESRD (end stage renal disease) (Acute) ESRD (end stage renal disease) on dialysis (Acute) N18.6, Z99.2 ESRD (end stage renal disease) on dialysis (Acute) N18.6, Z99.2 HYPOTENSION (Acute) HYPOXEMIA (Acute) MEDICAL EVALUATION PER DR FRY (Acute) funtional quadriperisis (Acute) septic shock (Acute) - Assessment Assessment: 1. Cellulitis of legs. 2. Lymphedema of legs. 3. CKD 5 on HD. 4. Morbid obesity. 5 anemia 6 gi bleed 7 psychosis - Plan Plan: dialysis iv antibiotics ltac eval tele status snif plan
[2016-09-02] MEDS: Lactobacillus Rhamnosus 10 Billion CFU Capsule PO SCH (09:18)
[2016-09-02] MEDS: Therahoney Gel 42.5gm Tube TP SCH (09:19)
[2016-09-02] MEDS: Menthol/Zinc Oxide Oint 113gm Tube TP SCH ×3 (09:20→21:04)
[2016-09-02] MEDS: Lactulose 10 Gm/15 mL 30mL UDC PO SCH ×4 (11:05→21:00)
[2016-09-02] MEDS: Sodium Bicarbonate 8.4% 50mEq PFS IVP SCH (11:05)
[2016-09-02] MEDS ORDERED: Albumin 25% 25gm/100mL 25 GM/100 ML BTL IV ONE ×2 (12:38→12:54)
--- NOTE | 2016-09-02 15:14 | Infectious Disease Prog Note ---
Infectious Disease Subjective - Review of Systems Service Date: 09/02/16 Subjective: no new change. There is no fever. Infectious Disease Objective - Results Result Diagrams: 09/01/16 08:45 09/01/16 08:45 Recent Labs: Laboratory Last Values WBC 4.8 Th/cmm (4.8-10.8) D 09/01/16 08:45 RBC 3.53 Mil/cmm (4.30-5.70) L 09/01/16 08:45 Hgb 9.8 gm/dL (13.2-17.3) L 09/01/16 08:45 Hct 29.3 % (39.0-49.0) L 09/01/16 08:45 MCV 83.0 fl (80-99) 09/01/16 08:45 MCH 27.6 pg (26.0-30.0) 09/01/16 08:45 MCHC Differential 33.3 pg (28.0-36.0) 09/01/16 08:45 RDW 16.0 % (11.5-20.0) 09/01/16 08:45 Plt Count 37 Th/cmm (150-400) L D 09/01/16 08:45 MPV 9.4 fl 09/01/16 08:45 Neutrophils % 56.8 % (40.0-80.0) 07/07/16 06:00 Band Neutrophils % 1 % (0-10) 09/01/16 08:45 Lymphocytes % 18.4 % (20.0-50.0) L 07/07/16 06:00 Monocytes % 13.8 % (2.0-10.0) H 07/07/16 06:00 Eosinophils % 11.0 % (0.0-5.0) H 07/07/16 06:00 Basophils % 0.0 % (0.0-2.0) 07/07/16 06:00 Neutrophils (Manual) 86 % (40-80) H 09/01/16 08:45 Lymphocytes 6 % (20-50) L 09/01/16 08:45 Monocytes 7 % (2-10) 09/01/16 08:45 Eosinophils 1 % (0-5) 08/18/16 05:18 Basophils 3 % (0-3) 08/04/16 08:33 Metamyelocytes 1 % (0-0) H 08/14/16 07:40 Myelocytes 1 % 07/14/16 16:00 Nucleated RBCs 1.0 % (0-0) H 08/15/16 09:30 Hypochromia 1+ 07/20/16 23:30 Platelet Estimate DECREASED PLATELETS (NORMAL) 09/01/16 08:45 Platelet Morphology NORMAL (NORMAL) 08/25/16 06:51 Polychromasia 1+ 07/20/16 23:30 Anisocytosis 1+ 08/25/16 06:51 Microcytosis 1+ 07/14/16 16:00 RBC Morph Micro Appear ABNORMAL (NORMAL) 08/25/16 06:51 PT 15.4 SECONDS (9.5-11.5) H 08/23/16 04:35 INR 1.45 (0.5-1.4) H 08/23/16 04:35 PTT (Actin FS) 37.7 SECONDS (26.0-38.0) 08/17/16 07:20 Specimen Source Arterial 08/20/16 08:15 Sample Site Right Radial 08/20/16 08:15 pH 7.33 (7.35-7.45) L 08/20/16 08:15 pCO2 55.0 mmHg (35.0-45.0) H 08/20/16 08:15 pO2 92.0 mmHg (80.0-100.0) 08/20/16 08:15 HCO3 26.5 mEq/L (20.0-26.0) H 08/20/16 08:15 Base Excess 2.0 mEq/L (-3.0-3.0) 08/20/16 08:15 O2 Saturation 97.0 % (92.0-100.0) 08/20/16 08:15 Estuardo Test POSITIVE 08/20/16 08:15 Vent Rate NA 08/20/16 08:15 Inspired O2 32 08/20/16 08:15 Tidal Volume NA 08/20/16 08:15 PEEP NA 08/20/16 08:15 Pressure (ins/psv/peep) NA 08/20/16 08:15 Critical Value CSILVA 08/20/16 08:15 Sodium 133 mEq/L (136-145) L 09/01/16 08:45 Potassium 3.7 mEq/L (3.5-5.1) 09/01/16 08:45 Chloride 97 mEq/L (98-107) L 09/01/16 08:45 Carbon Dioxide 28.0 mEq/L (21.0-31.0) 09/01/16 08:45 Anion Gap 11.7 (7.0-16.0) 09/01/16 08:45 BUN 64 mg/dL (7-25) H 09/01/16 08:45 Creatinine 4.7 mg/dL (0.7-1.3) H* 09/01/16 08:45 Est GFR ( Amer) 17.1 ml/min (>90) 09/01/16 08:45 Est GFR (Non-Af Amer) 14.2 ml/min 09/01/16 08:45 BUN/Creatinine Ratio 13.6 09/01/16 08:45 Glucose 116 mg/dL (70-105) H 09/01/16 08:45 POC Glucose 111 MG/DL (70 - 105) H 08/15/16 08:03 Hemoglobin A1c % 4.8 % (4.0-6.0) 08/13/16 06:04 Whole Bld Lactic Acid 1.54 mmol/L (0.60-1.99) 08/13/16 06:04 Calcium 8.5 mg/dL (8.6-10.3) L 09/01/16 08:45 Phosphorus 5.5 mg/dL (2.5-5.0) H 07/19/16 09:50 Magnesium 1.9 mg/dL (1.9-2.7) 08/04/16 05:45 Iron 42 ug/dL (38-169) 06/28/16 04:38 TIBC 269 ug/dL (250-450) 06/28/16 04:38 Iron Saturation 16 % (15-55) 06/28/16 04:38 Unsaturated IBC 227 ug/dL (111-343) 06/28/16 04:38 Ferritin 150 ng/mL (30-400) 06/26/16 08:30 Total Bilirubin 0.9 mg/dL (0.3-1.0) 08/25/16 06:51 Direct Bilirubin 0.70 mg/dL (0.0-0.2) H 06/28/16 04:38 GGTP 14 IU/L (0-65) 06/28/16 04:38 AST 9 U/L (13-39) L 08/25/16 06:51 ALT 7 U/L (7-52) 08/25/16 06:51 Alkaline Phosphatase 31 U/L (34-104) L 08/25/16 06:51 Ammonia 73 umol/L (16-53) H 08/12/16 05:19 Troponin I < 0.01 ng/mL (0.01-0.05) L 06/22/16 19:33 B-Natriuretic Peptide 668.0 pg/mL (5.0-100.0) H 06/22/16 19:33 Total Protein 6.8 gm/dL (6.0-8.3) 08/25/16 06:51 Albumin 2.5 gm/dL (4.2-5.5) L 08/25/16 06:51 Globulin 4.3 gm/dL 08/25/16 06:51 Albumin/Globulin Ratio 0.6 (1.0-1.8) L 08/25/16 06:51 Amylase 28 U/L (29-103) L 07/02/16 06:40 Lipase 31 U/L (11-82) 07/02/16 06:40 TSH 2.98 uIU/ml (0.34-5.60) 08/13/16 06:04 Urine Source CLEAN C 06/29/16 05:55 Urine Color YELLOW 06/29/16 05:55 Urine Clarity HAZY (CLEAR) 06/29/16 05:55 Urine pH 5.5 06/29/16 05:55 Ur Specific [place] 1.015 (1.005-1.030) 06/29/16 05:55 Urine Protein 30 mg/dL (NEGATIVE) H 06/29/16 05:55 Urine Glucose (UA) NEGATIVE mg/dL (NEGATIVE) 06/29/16 05:55 Urine Ketones NEGATIVE mg/dL (NEGATIVE) 06/29/16 05:55 Urine Blood NEGATIVE (NEGATIVE) 06/29/16 05:55 Urine Nitrate NEGATIVE (NEGATIVE) 06/29/16 05:55 Urine Bilirubin NEGATIVE (NEGATIVE) 06/29/16 05:55 Urine Urobilinogen 0.2 E.U./dL (0.2 - 1.0) 06/29/16 05:55 Ur Leukocyte Esterase TRACE (NEGATIVE) H 06/29/16 05:55 Urine RBC 0-2 /hpf (0-5) H 06/29/16 05:55 Urine WBC 6-10 /hpf (0-5) H 06/29/16 05:55 Ur Epithelial Cells FEW /lpf (FEW) 06/29/16 05:55 Urine Bacteria MANY /hpf (NONE SEEN) 06/29/16 05:55 Stool Occult Blood POSITIVE (NEGATIVE) 08/17/16 11:00 Stool Leukocyte NO WBC SEEN 08/17/16 11:00 Gentamicin Trough ug/ml (0.2-2.0) 08/12/16 05:19 Random Vancomycin 16.1 ug/mL (5.0-40.0) 08/30/16 13:00 RPR NONREACTIVE (NONREACTIVE) 06/22/16 19:33 Helicobacter pylori Ab NEGATIVE (NEGATIVE) 08/23/16 12:00 Hepatitis A IgM Ab Negative (Negative) 06/29/16 05:49 Hep Bs Antigen Negative (Negative) 06/29/16 05:49 Hep B Core IgM Ab Negative (Negative) 06/29/16 05:49 Hepatitis C Antibody >11.0 s/co ratio (0.0-0.9) H 06/29/16 05:49 Blood Type A POSITIVE 08/10/16 21:07 Antibody Screen NEGATIVE 08/10/16 21:07 Crossmatch See Detail 08/10/16 21:07 - Physical Exam Vitals and I&O: Vital Signs Temp 100.0 F 09/02/16 04:00 Pulse 100 09/02/16 10:00 Resp 20 09/02/16 14:12 BP 103/65 09/02/16 04:00 Pulse Ox 97 09/02/16 14:12 Intake & Output 09/01/16 09/02/16 09/02/16 18:59 06:59 18:59 Intake Total 500 1550 500 Balance 500 1550 500 Intake: Oral 500 1550 500 Other: # Voids 2 # Bowel Movements 1 Stool Characteristics Soft Soft Soft Liquid Liquid Brown Brown Active Medications: Current Medications Acetaminophen (Tylenol) 650 mg PO Q6H PRN PRN Reason: temperature above 100F Stop: 09/28/16 16:14 Last Admin: 09/02/16 09:23 Dose: 650 mg Calamine/Phenol (Calmoseptine) 1 appl TP QID [facility] Stop: 10/14/16 12:59 Last Admin: 09/02/16 13:00 Dose: 1 appl Diphenhydramine HCl (Benadryl 50 Mg/Ml) 25 mg IVP Q6HR PRN PRN Reason: itching Stop: 10/11/16 03:12 Last Admin: 08/14/16 11:25 Dose: 25 mg Docusate Sodium (Colace) 100 mg PO Q12HR [facility] Stop: 09/16/16 08:59 Last Admin: 09/02/16 09:18 Dose: 100 mg Fluconazole (Diflucan) 100 mg PO DAILY [facility] Stop: 09/05/16 08:59 Last Admin: 09/02/16 09:18 Dose: 100 mg Hydrocortisone Sodium Succinate (Solu-Cortef) 50 mg IVP Q8H [facility] Stop: 10/09/16 15:59 Last Admin: 09/02/16 09:23 Dose: 50 mg Sodium Chloride (Nacl 0.9%) 1,000 mls @ 10 mls/hr IV .Q24H [facility] Stop: 10/15/16 15:01 Last Admin: 08/30/16 12:44 Dose: 10 mls/hr Lactobacillus Rhamnosus (Culturelle) 1 each PO DAILY [facility] Stop: 10/12/16 08:59 Last Admin: 09/02/16 09:18 Dose: 1 each Lactulose (Cephulac) 30 gm PO QID [facility] Stop: 10/28/16 12:59 Last Admin: 09/02/16 13:13 Dose: Not Given Levetiracetam (Keppra) 500 mg PO BID [facility] Stop: 10/19/16 16:59 Last Admin: 09/02/16 09:18 Dose: 500 mg Lorazepam (Ativan) 2 mg IVP Q2HR PRN; Protocol PRN Reason: Seizures Stop: 10/19/16 10:06 Miscellaneous (Clinical Monitoring) 1 ea MC DAILY PRN PRN Reason: RENAL Stop: 10/06/16 08:17 Miscellaneous (Probiotic Screen) 1 ea MC PRN PRN PRN Reason: PROTOCOL Stop: 10/11/16 14:12 Miscellaneous (Vancomycin Iv Per Pharmacy) 1 ea MC PRN PRN PRN Reason: PROTOCOL Stop: 06/05/17 11:55 Morphine Sulfate (Morphine) 2 mg IV Q4HR PRN PRN Reason: Pain (Moderate) Stop: 10/15/16 13:36 Last Admin: 09/02/16 11:12 Dose: 2 mg Pantoprazole Sodium (Protonix) 40 mg IVP BID [facility] Stop: 10/19/16 16:59 Last Admin: 09/02/16 09:18 Dose: 40 mg Sodium Bicarbonate (Sodium Bicarb) 50 meq IVP BID [facility] Stop: 10/13/16 16:59 Last Admin: 09/02/16 11:05 Dose: 50 meq Sorbitol (Sorbitol) 100 ml PO DAILY [facility] Stop: 10/28/16 12:14 Last Admin: 09/02/16 13:32 Dose: 100 ml Wound Care/Dressing Products (Therahoney) 1 appl TP DAILY [facility] Stop: 10/30/16 15:59 Last Admin: 09/02/16 09:19 Dose: 1 appl General: no acute distress, well developed, well nourished HEENT: atraumatic, normocephalic, PERRLA, EOMI Neck: supple, no thyromegaly, no lymphadenopathy Cardiovascular: S1S2, regular Lungs: clear to auscultation bilaterally, clear to percussion Abdomen: soft, no tender, no distended Extremities: no cyanosis, no clubbing, no edema Neurological: awake, alert, oriented, CN 2-12 intact Skin: intact - Procedures Procedures: Procedures Procedure Code Date ARTERY-VEIN NONAUTOGRAFT 41427 06/22/16 BLOOD TRANSFUSION SERVICE 94092 06/22/16 BYPASS L BRACH ART TO UP ARM VEIN W NONAUT SUB, OPEN [id number] 06/22/16 FLUOROSCOPY OF SUP VENA CAVA USING [facility] CONTRAST, GUIDANCE [id number] 06/22/16 INSERTION OF INFUSION DEV INTO SUP VENA CAVA, PERC APPROACH [id number] 06/22/[address] PL[address] CATHETER IN VEIN 11673 06/22/16 TRANSFUSE NONAUT RED BLOOD CELLS IN PERIPH VEIN, PERC [id number] 06/22/16 Infectious Disease Assmt/Plan - Problem List Patient Problems: All Active Problems Anemia (Acute) D64.9 ESRD (end stage renal disease) (Acute) ESRD (end stage renal disease) on dialysis (Acute) N18.6, Z99.2 ESRD (end stage renal disease) on dialysis (Acute) N18.6, Z99.2 HYPOTENSION (Acute) HYPOXEMIA (Acute) MEDICAL EVALUATION PER DR FRY (Acute) funtional quadriperisis (Acute) septic shock (Acute) - Assessment Assessment: 1. Septic shock. resolved. likely line sepsis. MRSA sepsis. 3/4 positive. 2. Pneumonia. 3. CKD 5 on HD. 4. Morbid obesity. 5. hep C. 6. Cellulitis of legs. improved. treated. 7. Lymphedema of legs. 8. CHF. 9. CDAC. 10. Maria C esophagitis. - Plan Plan: Continue vanco IV and Diflucan.
--- NOTE | 2016-09-02 15:57 | Infectious Disease Prog Note ---
Infectious Disease Subjective - Review of Systems Service Date: 09/02/16 Subjective: Patient became hypotensive and transferred to the ICU. Levophed was just initiated. put on bipap. Infectious Disease Objective - Results Result Diagrams: 09/01/16 08:45 09/01/16 08:45 Recent Labs: Laboratory Last Values WBC 4.8 Th/cmm (4.8-10.8) D 09/01/16 08:45 RBC 3.53 Mil/cmm (4.30-5.70) L 09/01/16 08:45 Hgb 9.8 gm/dL (13.2-17.3) L 09/01/16 08:45 Hct 29.3 % (39.0-49.0) L 09/01/16 08:45 MCV 83.0 fl (80-99) 09/01/16 08:45 MCH 27.6 pg (26.0-30.0) 09/01/16 08:45 MCHC Differential 33.3 pg (28.0-36.0) 09/01/16 08:45 RDW 16.0 % (11.5-20.0) 09/01/16 08:45 Plt Count 37 Th/cmm (150-400) L D 09/01/16 08:45 MPV 9.4 fl 09/01/16 08:45 Neutrophils % 56.8 % (40.0-80.0) 07/07/16 06:00 Band Neutrophils % 1 % (0-10) 09/01/16 08:45 Lymphocytes % 18.4 % (20.0-50.0) L 07/07/16 06:00 Monocytes % 13.8 % (2.0-10.0) H 07/07/16 06:00 Eosinophils % 11.0 % (0.0-5.0) H 07/07/16 06:00 Basophils % 0.0 % (0.0-2.0) 07/07/16 06:00 Neutrophils (Manual) 86 % (40-80) H 09/01/16 08:45 Lymphocytes 6 % (20-50) L 09/01/16 08:45 Monocytes 7 % (2-10) 09/01/16 08:45 Eosinophils 1 % (0-5) 08/18/16 05:18 Basophils 3 % (0-3) 08/04/16 08:33 Metamyelocytes 1 % (0-0) H 08/14/16 07:40 Myelocytes 1 % 07/14/16 16:00 Nucleated RBCs 1.0 % (0-0) H 08/15/16 09:30 Hypochromia 1+ 07/20/16 23:30 Platelet Estimate DECREASED PLATELETS (NORMAL) 09/01/16 08:45 Platelet Morphology NORMAL (NORMAL) 08/25/16 06:51 Polychromasia 1+ 07/20/16 23:30 Anisocytosis 1+ 08/25/16 06:51 Microcytosis 1+ 07/14/16 16:00 RBC Morph Micro Appear ABNORMAL (NORMAL) 08/25/16 06:51 PT 15.4 SECONDS (9.5-11.5) H 08/23/16 04:35 INR 1.45 (0.5-1.4) H 08/23/16 04:35 PTT (Actin FS) 37.7 SECONDS (26.0-38.0) 08/17/16 07:20 Specimen Source Arterial 08/20/16 08:15 Sample Site Right Radial 08/20/16 08:15 pH 7.33 (7.35-7.45) L 08/20/16 08:15 pCO2 55.0 mmHg (35.0-45.0) H 08/20/16 08:15 pO2 92.0 mmHg (80.0-100.0) 08/20/16 08:15 HCO3 26.5 mEq/L (20.0-26.0) H 08/20/16 08:15 Base Excess 2.0 mEq/L (-3.0-3.0) 08/20/16 08:15 O2 Saturation 97.0 % (92.0-100.0) 08/20/16 08:15 Estuardo Test POSITIVE 08/20/16 08:15 Vent Rate NA 08/20/16 08:15 Inspired O2 32 08/20/16 08:15 Tidal Volume NA 08/20/16 08:15 PEEP NA 08/20/16 08:15 Pressure (ins/psv/peep) NA 08/20/16 08:15 Critical Value CSILVA 08/20/16 08:15 Sodium 133 mEq/L (136-145) L 09/01/16 08:45 Potassium 3.7 mEq/L (3.5-5.1) 09/01/16 08:45 Chloride 97 mEq/L (98-107) L 09/01/16 08:45 Carbon Dioxide 28.0 mEq/L (21.0-31.0) 09/01/16 08:45 Anion Gap 11.7 (7.0-16.0) 09/01/16 08:45 BUN 64 mg/dL (7-25) H 09/01/16 08:45 Creatinine 4.7 mg/dL (0.7-1.3) H* 09/01/16 08:45 Est GFR ( Amer) 17.1 ml/min (>90) 09/01/16 08:45 Est GFR (Non-Af Amer) 14.2 ml/min 09/01/16 08:45 BUN/Creatinine Ratio 13.6 09/01/16 08:45 Glucose 116 mg/dL (70-105) H 09/01/16 08:45 POC Glucose 111 MG/DL (70 - 105) H 08/15/16 08:03 Hemoglobin A1c % 4.8 % (4.0-6.0) 08/13/16 06:04 Whole Bld Lactic Acid 1.54 mmol/L (0.60-1.99) 08/13/16 06:04 Calcium 8.5 mg/dL (8.6-10.3) L 09/01/16 08:45 Phosphorus 5.5 mg/dL (2.5-5.0) H 07/19/16 09:50 Magnesium 1.9 mg/dL (1.9-2.7) 08/04/16 05:45 Iron 42 ug/dL (38-169) 06/28/16 04:38 TIBC 269 ug/dL (250-450) 06/28/16 04:38 Iron Saturation 16 % (15-55) 06/28/16 04:38 Unsaturated IBC 227 ug/dL (111-343) 06/28/16 04:38 Ferritin 150 ng/mL (30-400) 06/26/16 08:30 Total Bilirubin 0.9 mg/dL (0.3-1.0) 08/25/16 06:51 Direct Bilirubin 0.70 mg/dL (0.0-0.2) H 06/28/16 04:38 GGTP 14 IU/L (0-65) 06/28/16 04:38 AST 9 U/L (13-39) L 08/25/16 06:51 ALT 7 U/L (7-52) 08/25/16 06:51 Alkaline Phosphatase 31 U/L (34-104) L 08/25/16 06:51 Ammonia 73 umol/L (16-53) H 08/12/16 05:19 Troponin I < 0.01 ng/mL (0.01-0.05) L 06/22/16 19:33 B-Natriuretic Peptide 668.0 pg/mL (5.0-100.0) H 06/22/16 19:33 Total Protein 6.8 gm/dL (6.0-8.3) 08/25/16 06:51 Albumin 2.5 gm/dL (4.2-5.5) L 08/25/16 06:51 Globulin 4.3 gm/dL 08/25/16 06:51 Albumin/Globulin Ratio 0.6 (1.0-1.8) L 08/25/16 06:51 Amylase 28 U/L (29-103) L 07/02/16 06:40 Lipase 31 U/L (11-82) 07/02/16 06:40 TSH 2.98 uIU/ml (0.34-5.60) 08/13/16 06:04 Urine Source CLEAN C 06/29/16 05:55 Urine Color YELLOW 06/29/16 05:55 Urine Clarity HAZY (CLEAR) 06/29/16 05:55 Urine pH 5.5 06/29/16 05:55 Ur Specific [place] 1.015 (1.005-1.030) 06/29/16 05:55 Urine Protein 30 mg/dL (NEGATIVE) H 06/29/16 05:55 Urine Glucose (UA) NEGATIVE mg/dL (NEGATIVE) 06/29/16 05:55 Urine Ketones NEGATIVE mg/dL (NEGATIVE) 06/29/16 05:55 Urine Blood NEGATIVE (NEGATIVE) 06/29/16 05:55 Urine Nitrate NEGATIVE (NEGATIVE) 06/29/16 05:55 Urine Bilirubin NEGATIVE (NEGATIVE) 06/29/16 05:55 Urine Urobilinogen 0.2 E.U./dL (0.2 - 1.0) 06/29/16 05:55 Ur Leukocyte Esterase TRACE (NEGATIVE) H 06/29/16 05:55 Urine RBC 0-2 /hpf (0-5) H 06/29/16 05:55 Urine WBC 6-10 /hpf (0-5) H 06/29/16 05:55 Ur Epithelial Cells FEW /lpf (FEW) 06/29/16 05:55 Urine Bacteria MANY /hpf (NONE SEEN) 06/29/16 05:55 Stool Occult Blood POSITIVE (NEGATIVE) 08/17/16 11:00 Stool Leukocyte NO WBC SEEN 08/17/16 11:00 Gentamicin Trough ug/ml (0.2-2.0) 08/12/16 05:19 Random Vancomycin 16.1 ug/mL (5.0-40.0) 08/30/16 13:00 RPR NONREACTIVE (NONREACTIVE) 06/22/16 19:33 Helicobacter pylori Ab NEGATIVE (NEGATIVE) 08/23/16 12:00 Hepatitis A IgM Ab Negative (Negative) 06/29/16 05:49 Hep Bs Antigen Negative (Negative) 06/29/16 05:49 Hep B Core IgM Ab Negative (Negative) 06/29/16 05:49 Hepatitis C Antibody >11.0 s/co ratio (0.0-0.9) H 06/29/16 05:49 Blood Type A POSITIVE 08/10/16 21:07 Antibody Screen NEGATIVE 08/10/16 21:07 Crossmatch See Detail 08/10/16 21:07 - Physical Exam Vitals and I&O: Vital Signs Temp 100.0 F 09/02/16 04:00 Pulse 100 09/02/16 10:00 Resp 20 09/02/16 14:12 BP 103/65 09/02/16 04:00 Pulse Ox 97 09/02/16 14:12 Intake & Output 09/01/16 09/02/16 09/02/16 18:59 06:59 18:59 Intake Total 500 1550 500 Balance 500 1550 500 Intake: Oral 500 1550 500 Other: # Voids 2 # Bowel Movements 1 Stool Characteristics Soft Soft Soft Liquid Liquid Brown Brown Active Medications: Current Medications Acetaminophen (Tylenol) 650 mg PO Q6H PRN PRN Reason: temperature above 100F Stop: 09/28/16 16:14 Last Admin: 09/02/16 09:23 Dose: 650 mg Calamine/Phenol (Calmoseptine) 1 appl TP QID [facility] Stop: 10/14/16 12:59 Last Admin: 09/02/16 13:00 Dose: 1 appl Diphenhydramine HCl (Benadryl 50 Mg/Ml) 25 mg IVP Q6HR PRN PRN Reason: itching Stop: 10/11/16 03:12 Last Admin: 08/14/16 11:25 Dose: 25 mg Docusate Sodium (Colace) 100 mg PO Q12HR [facility] Stop: 09/16/16 08:59 Last Admin: 09/02/16 09:18 Dose: 100 mg Fluconazole (Diflucan) 100 mg PO DAILY [facility] Stop: 09/05/16 08:59 Last Admin: 09/02/16 09:18 Dose: 100 mg Hydrocortisone Sodium Succinate (Solu-Cortef) 50 mg IVP Q8H [facility] Stop: 10/09/16 15:59 Last Admin: 09/02/16 09:23 Dose: 50 mg Sodium Chloride (Nacl 0.9%) 1,000 mls @ 10 mls/hr IV .Q24H [facility] Stop: 10/15/16 15:01 Last Admin: 08/30/16 12:44 Dose: 10 mls/hr Lactobacillus Rhamnosus (Culturelle) 1 each PO DAILY [facility] Stop: 10/12/16 08:59 Last Admin: 09/02/16 09:18 Dose: 1 each Lactulose (Cephulac) 30 gm PO QID [facility] Stop: 10/28/16 12:59 Last Admin: 09/02/16 13:13 Dose: Not Given Levetiracetam (Keppra) 500 mg PO BID [facility] Stop: 10/19/16 16:59 Last Admin: 09/02/16 09:18 Dose: 500 mg Lorazepam (Ativan) 2 mg IVP Q2HR PRN; Protocol PRN Reason: Seizures Stop: 10/19/16 10:06 Miscellaneous (Clinical Monitoring) 1 ea MC DAILY PRN PRN Reason: RENAL Stop: 10/06/16 08:17 Miscellaneous (Probiotic Screen) 1 ea PRN PRN PRN Reason: PROTOCOL Stop: 10/11/16 14:12 Miscellaneous (Vancomycin Iv Per Pharmacy) 1 ea PRN PRN PRN Reason: PROTOCOL Stop: 10/22/16 11:55 Morphine Sulfate (Morphine) 2 mg IV Q4HR PRN PRN Reason: Pain (Moderate) Stop: 10/15/16 13:36 Last Admin: 09/02/16 11:12 Dose: 2 mg Pantoprazole Sodium (Protonix) 40 mg IVP BID [facility] Stop: 10/19/16 16:59 Last Admin: 09/02/16 09:18 Dose: 40 mg Sodium Bicarbonate (Sodium Bicarb) 50 meq IVP BID [facility] Stop: 10/13/16 16:59 Last Admin: 09/02/16 11:05 Dose: 50 meq Sorbitol (Sorbitol) 100 ml PO DAILY [facility] Stop: 10/28/16 12:14 Last Admin: 09/02/16 13:32 Dose: 100 ml Wound Care/Dressing Products (Therahoney) 1 appl TP DAILY [facility] Stop: 10/30/16 15:59 Last Admin: 09/02/16 09:19 Dose: 1 appl General: no acute distress, other (obese.) HEENT: atraumatic, normocephalic, PERRLA, EOMI Neck: supple, no thyromegaly Cardiovascular: S1S2, regular Lungs: clear to auscultation bilaterally, clear to percussion Abdomen: soft, no tender, no distended Extremities: no cyanosis, no clubbing, no edema Neurological: awake, alert, oriented, CN 2-12 intact Skin: intact - Procedures Procedures: Procedures Procedure Code Date ARTERY-VEIN NONAUTOGRAFT 95335 06/22/16 BLOOD TRANSFUSION SERVICE 49764 06/22/16 BYPASS L BRACH ART TO UP ARM VEIN W NONAUT SUB, OPEN [id number] 06/22/16 FLUOROSCOPY OF SUP VENA CAVA USING [facility] CONTRAST, GUIDANCE [id number] 06/22/16 INSERTION OF INFUSION DEV INTO SUP VENA CAVA, PERC APPROACH [id number] 06/22/[address] PL[address] CATHETER IN VEIN [id number] 06/22/16 TRANSFUSE NONAUT RED BLOOD CELLS IN PERIPH VEIN, PERC [id number] 06/22/16 Infectious Disease Assmt/Plan - Problem List Patient Problems: All Active Problems Anemia (Acute) D64.9 ESRD (end stage renal disease) (Acute) ESRD (end stage renal disease) on dialysis (Acute) N18.6, Z99.2 ESRD (end stage renal disease) on dialysis (Acute) N18.6, Z99.2 HYPOTENSION (Acute) HYPOXEMIA (Acute) MEDICAL EVALUATION PER DR FRY (Acute) funtional quadriperisis (Acute) septic shock (Acute) - Assessment Assessment: 1. hypotension. suspect Septic shock. resolved. 2. Pneumonia. treated. 3. CKD 5 on HD. 4. Morbid obesity. 5. hep C. 6. Cellulitis of legs. improved. treated. 7. Lymphedema of legs. 8. CHF. 9. CDAC. 10. Maria C esophagitis. - Plan Plan: Continue vanco IV and Diflucan. Add zosyn and vanco PO.
--- NOTE | 2016-09-02 18:01 | General Progress Note ---
Subjective - Review of Systems Service Date: 09/02/16 Subjective: sedated, on BIPAP, developed shock Objective - Results Result Diagrams: 09/01/16 08:45 09/01/16 08:45 Recent Labs: Laboratory Last Values WBC 4.8 Th/cmm (4.8-10.8) D 09/01/16 08:45 RBC 3.53 Mil/cmm (4.30-5.70) L 09/01/16 08:45 Hgb 9.8 gm/dL (13.2-17.3) L 09/01/16 08:45 Hct 29.3 % (39.0-49.0) L 09/01/16 08:45 MCV 83.0 fl (80-99) 09/01/16 08:45 MCH 27.6 pg (26.0-30.0) 09/01/16 08:45 MCHC Differential 33.3 pg (28.0-36.0) 09/01/16 08:45 RDW 16.0 % (11.5-20.0) 09/01/16 08:45 Plt Count 37 Th/cmm (150-400) L D 09/01/16 08:45 MPV 9.4 fl 09/01/16 08:45 Neutrophils % 56.8 % (40.0-80.0) 07/07/16 06:00 Band Neutrophils % 1 % (0-10) 09/01/16 08:45 Lymphocytes % 18.4 % (20.0-50.0) L 07/07/16 06:00 Monocytes % 13.8 % (2.0-10.0) H 07/07/16 06:00 Eosinophils % 11.0 % (0.0-5.0) H 07/07/16 06:00 Basophils % 0.0 % (0.0-2.0) 07/07/16 06:00 Neutrophils (Manual) 86 % (40-80) H 09/01/16 08:45 Lymphocytes 6 % (20-50) L 09/01/16 08:45 Monocytes 7 % (2-10) 09/01/16 08:45 Eosinophils 1 % (0-5) 08/18/16 05:18 Basophils 3 % (0-3) 08/04/16 08:33 Metamyelocytes 1 % (0-0) H 08/14/16 07:40 Myelocytes 1 % 07/14/16 16:00 Nucleated RBCs 1.0 % (0-0) H 08/15/16 09:30 Hypochromia 1+ 07/20/16 23:30 Platelet Estimate DECREASED PLATELETS (NORMAL) 09/01/16 08:45 Platelet Morphology NORMAL (NORMAL) 08/25/16 06:51 Polychromasia 1+ 07/20/16 23:30 Anisocytosis 1+ 08/25/16 06:51 Microcytosis 1+ 07/14/16 16:00 RBC Morph Micro Appear ABNORMAL (NORMAL) 08/25/16 06:51 PT 15.4 SECONDS (9.5-11.5) H 08/23/16 04:35 INR 1.45 (0.5-1.4) H 08/23/16 04:35 PTT (Actin FS) 37.7 SECONDS (26.0-38.0) 08/17/16 07:20 Specimen Source Arterial 08/20/16 08:15 Sample Site Right Radial 08/20/16 08:15 pH 7.33 (7.35-7.45) L 08/20/16 08:15 pCO2 55.0 mmHg (35.0-45.0) H 08/20/16 08:15 pO2 92.0 mmHg (80.0-100.0) 08/20/16 08:15 HCO3 26.5 mEq/L (20.0-26.0) H 08/20/16 08:15 Base Excess 2.0 mEq/L (-3.0-3.0) 08/20/16 08:15 O2 Saturation 97.0 % (92.0-100.0) 08/20/16 08:15 Estuardo Test POSITIVE 08/20/16 08:15 Vent Rate NA 08/20/16 08:15 Inspired O2 32 08/20/16 08:15 Tidal Volume NA 08/20/16 08:15 PEEP NA 08/20/16 08:15 Pressure (ins/psv/peep) NA 08/20/16 08:15 Critical Value CSILVA 08/20/16 08:15 Sodium 133 mEq/L (136-145) L 09/01/16 08:45 Potassium 3.7 mEq/L (3.5-5.1) 09/01/16 08:45 Chloride 97 mEq/L (98-107) L 09/01/16 08:45 Carbon Dioxide 28.0 mEq/L (21.0-31.0) 09/01/16 08:45 Anion Gap 11.7 (7.0-16.0) 09/01/16 08:45 BUN 64 mg/dL (7-25) H 09/01/16 08:45 Creatinine 4.7 mg/dL (0.7-1.3) H* 09/01/16 08:45 Est GFR ( Amer) 17.1 ml/min (>90) 09/01/16 08:45 Est GFR (Non-Af Amer) 14.2 ml/min 09/01/16 08:45 BUN/Creatinine Ratio 13.6 09/01/16 08:45 Glucose 116 mg/dL (70-105) H 09/01/16 08:45 POC Glucose 111 MG/DL (70 - 105) H 08/15/16 08:03 Hemoglobin A1c % 4.8 % (4.0-6.0) 08/13/16 06:04 Whole Bld Lactic Acid 1.54 mmol/L (0.60-1.99) 08/13/16 06:04 Calcium 8.5 mg/dL (8.6-10.3) L 09/01/16 08:45 Phosphorus 5.5 mg/dL (2.5-5.0) H 07/19/16 09:50 Magnesium 1.9 mg/dL (1.9-2.7) 08/04/16 05:45 Iron 42 ug/dL (38-169) 06/28/16 04:38 TIBC 269 ug/dL (250-450) 06/28/16 04:38 Iron Saturation 16 % (15-55) 06/28/16 04:38 Unsaturated IBC 227 ug/dL (111-343) 06/28/16 04:38 Ferritin 150 ng/mL (30-400) 06/26/16 08:30 Total Bilirubin 0.9 mg/dL (0.3-1.0) 08/25/16 06:51 Direct Bilirubin 0.70 mg/dL (0.0-0.2) H 06/28/16 04:38 GGTP 14 IU/L (0-65) 06/28/16 04:38 AST 9 U/L (13-39) L 08/25/16 06:51 ALT 7 U/L (7-52) 08/25/16 06:51 Alkaline Phosphatase 31 U/L (34-104) L 08/25/16 06:51 Ammonia 73 umol/L (16-53) H 08/12/16 05:19 Troponin I < 0.01 ng/mL (0.01-0.05) L 06/22/16 19:33 B-Natriuretic Peptide 668.0 pg/mL (5.0-100.0) H 06/22/16 19:33 Total Protein 6.8 gm/dL (6.0-8.3) 08/25/16 06:51 Albumin 2.5 gm/dL (4.2-5.5) L 08/25/16 06:51 Globulin 4.3 gm/dL 08/25/16 06:51 Albumin/Globulin Ratio 0.6 (1.0-1.8) L 08/25/16 06:51 Amylase 28 U/L (29-103) L 07/02/16 06:40 Lipase 31 U/L (11-82) 07/02/16 06:40 TSH 2.98 uIU/ml (0.34-5.60) 08/13/16 06:04 Urine Source CLEAN C 06/29/16 05:55 Urine Color YELLOW 06/29/16 05:55 Urine Clarity HAZY (CLEAR) 06/29/16 05:55 Urine pH 5.5 06/29/16 05:55 Ur Specific [place] 1.015 (1.005-1.030) 06/29/16 05:55 Urine Protein 30 mg/dL (NEGATIVE) H 06/29/16 05:55 Urine Glucose (UA) NEGATIVE mg/dL (NEGATIVE) 06/29/16 05:55 Urine Ketones NEGATIVE mg/dL (NEGATIVE) 06/29/16 05:55 Urine Blood NEGATIVE (NEGATIVE) 06/29/16 05:55 Urine Nitrate NEGATIVE (NEGATIVE) 06/29/16 05:55 Urine Bilirubin NEGATIVE (NEGATIVE) 06/29/16 05:55 Urine Urobilinogen 0.2 E.U./dL (0.2 - 1.0) 06/29/16 05:55 Ur Leukocyte Esterase TRACE (NEGATIVE) H 06/29/16 05:55 Urine RBC 0-2 /hpf (0-5) H 06/29/16 05:55 Urine WBC 6-10 /hpf (0-5) H 06/29/16 05:55 Ur Epithelial Cells FEW /lpf (FEW) 06/29/16 05:55 Urine Bacteria MANY /hpf (NONE SEEN) 06/29/16 05:55 Stool Occult Blood POSITIVE (NEGATIVE) 08/17/16 11:00 Stool Leukocyte NO WBC SEEN 08/17/16 11:00 Gentamicin Trough ug/ml (0.2-2.0) 08/12/16 05:19 Random Vancomycin 16.1 ug/mL (5.0-40.0) 08/30/16 13:00 RPR NONREACTIVE (NONREACTIVE) 06/22/16 19:33 Helicobacter pylori Ab NEGATIVE (NEGATIVE) 08/23/16 12:00 Hepatitis A IgM Ab Negative (Negative) 06/29/16 05:49 Hep Bs Antigen Negative (Negative) 06/29/16 05:49 Hep B Core IgM Ab Negative (Negative) 06/29/16 05:49 Hepatitis C Antibody >11.0 s/co ratio (0.0-0.9) H 06/29/16 05:49 Blood Type A POSITIVE 08/10/16 21:07 Antibody Screen NEGATIVE 08/10/16 21:07 Crossmatch See Detail 08/10/16 21:07 - Physical Exam Vitals and I&O: Vital Signs Temp 100.0 F 09/02/16 04:00 Pulse 100 09/02/16 10:00 Resp 17 09/02/16 17:20 BP 103/65 09/02/16 04:00 Pulse Ox 97 09/02/16 17:20 Intake & Output 09/01/16 09/02/16 09/02/16 18:59 06:59 18:59 Intake Total 500 1550 500 Balance 500 1550 500 Intake: Oral 500 1550 500 Other: # Voids 2 # Bowel Movements 1 Stool Characteristics Soft Soft Soft Liquid Liquid Brown Brown Active Medications: Current Medications Acetaminophen (Tylenol) 650 mg PO Q6H PRN PRN Reason: temperature above 100F Stop: 09/28/16 16:14 Last Admin: 09/02/16 09:23 Dose: 650 mg Calamine/Phenol (Calmoseptine) 1 appl TP QID MARQUISE Stop: 10/14/16 12:59 Last Admin: 09/02/16 13:00 Dose: 1 appl Diphenhydramine HCl (Benadryl 50 Mg/Ml) 25 mg IVP Q6HR PRN PRN Reason: itching Stop: 10/11/16 03:12 Last Admin: 08/14/16 11:25 Dose: 25 mg Docusate Sodium (Colace) 100 mg PO Q12HR MARQUISE Stop: 09/16/16 08:59 Last Admin: 09/02/16 09:18 Dose: 100 mg Fluconazole (Diflucan) 100 mg PO DAILY MARQUISE Stop: 09/05/16 08:59 Last Admin: 09/02/16 09:18 Dose: 100 mg Hydrocortisone Sodium Succinate (Solu-Cortef) 50 mg IVP Q8H MARQUISE Stop: 10/09/16 15:59 Last Admin: 09/02/16 09:23 Dose: 50 mg Sodium Chloride (Nacl 0.9%) 1,000 mls @ 10 mls/hr IV .Q24H [facility] Stop: 10/15/16 15:01 Last Admin: 08/30/16 12:44 Dose: 10 mls/hr Cefepime HCl 1 gm/ Sodium (Chloride) 50 mls @ 100 mls/hr IV DAILY [facility] Stop: 11/02/16 08:59 Norepinephrine Bitartrate 4 mg (/ Dextrose) 254 mls @ 38.1 mls/hr IV TITR PRN; Protocol; 10 MCG/MIN PRN Reason: BP MAINTENANCE (PER PROTOCOL) Stop: 11/01/16 13:59 Lactobacillus Rhamnosus (Culturelle) 1 each PO DAILY MARQUISE Stop: 10/12/16 08:59 Last Admin: 09/02/16 09:18 Dose: 1 each Lactulose (Cephulac) 30 gm PO QID MARQUISE Stop: 10/28/16 12:59 Last Admin: 09/02/16 13:13 Dose: Not Given Levetiracetam (Keppra) 500 mg PO BID [facility] Stop: 10/19/16 16:59 Last Admin: 09/02/16 09:18 Dose: 500 mg Lorazepam (Ativan) 2 mg IVP Q2HR PRN; Protocol PRN Reason: Seizures Stop: 10/19/16 10:06 Miscellaneous (Clinical Monitoring) 1 ea MC DAILY PRN PRN Reason: RENAL Stop: 10/06/16 08:17 Miscellaneous (Probiotic Screen) 1 ea PRN PRN PRN Reason: PROTOCOL Stop: 10/11/16 14:12 Miscellaneous (Vancomycin Iv Per Pharmacy) 1 ea PRN PRN PRN Reason: PROTOCOL Stop: 10/22/16 11:55 Morphine Sulfate (Morphine) 2 mg IV Q4HR PRN PRN Reason: Pain (Moderate) Stop: 10/15/16 13:36 Last Admin: 09/02/16 11:12 Dose: 2 mg Pantoprazole Sodium (Protonix) 40 mg IVP BID [facility] Stop: 10/19/16 16:59 Last Admin: 09/02/16 09:18 Dose: 40 mg Sodium Bicarbonate (Sodium Bicarb) 50 meq IVP BID [facility] Stop: 10/13/16 16:59 Last Admin: 09/02/16 11:05 Dose: 50 meq Sorbitol (Sorbitol) 100 ml PO DAILY [facility] Stop: 10/28/16 12:14 Last Admin: 09/02/16 13:32 Dose: 100 ml Vancomycin HCl (Vancomycin Oral) 250 mg PO QID [facility] Stop: 11/01/16 16:59 Wound Care/Dressing Products (Therahoney) 1 appl TP DAILY [facility] Stop: 10/30/16 15:59 Last Admin: 09/02/16 09:19 Dose: 1 appl General: Moderate distress, Other HEENT: Atraumatic Neck: Supple, +2 carotid pulse wo bruit Cardiovascular: Other (irregular, tachycardic) Lungs: Other (rhonchi) Abdomen: Bowel sounds, Soft, Obese Extremities: Edema ((+) 3 bipedal edema) Neurological: Sensation intact Skin: no Rash - Procedures Procedures: Procedures Procedure Code Date ARTERY-VEIN NONAUTOGRAFT 88683 06/22/16 BLOOD TRANSFUSION SERVICE 05791 06/22/16 BYPASS L BRACH ART TO UP ARM VEIN W NONAUT SUB, OPEN [id number] 06/22/16 FLUOROSCOPY OF SUP VENA CAVA USING [facility] CONTRAST, GUIDANCE [id number] 06/22/16 INSERTION OF INFUSION DEV INTO SUP VENA CAVA, PERC APPROACH [id number] 06/22/[address] CATHETER IN VEIN 24125 06/22/16 TRANSFUSE NONAUT RED BLOOD CELLS IN PERIPH VEIN, PERC [id number] 06/22/16 Assessment/Plan - Problem List Patient Problems: All Active Problems Anemia (Acute) D64.9 ESRD (end stage renal disease) (Acute) ESRD (end stage renal disease) on dialysis (Acute) N18.6, Z99.2 ESRD (end stage renal disease) on dialysis (Acute) N18.6, Z99.2 HYPOTENSION (Acute) HYPOXEMIA (Acute) MEDICAL EVALUATION PER DR FRY (Acute) funtional quadriperisis (Acute) septic shock (Acute) - Assessment Assessment: recurrent septic shock esrd on hd persistent cellulitis b/l lower ext acute on chronic anemia possible gi bleed ohs chronic a. fib w/ rvr hypothyroid anasarca functional quadriplegia chronic venous stasis dermatitis acute decomp psychosis s/p left avg s/p G (+) cocci in clusters septicemia new onset seizure activity Candidal Esophagitis, Antral gastritis - Plan Plan: Lab - Result Diagrams 07/19/16 09:50 Lab - Result Diagrams 07/22/16 05:21 Lab - Result Diagrams 07/24/16 05:00 Lab - Result Diagrams Lab - Result Diagrams 08/04/16 08:33 Lab - Result Diagrams 08/05/16 05:00 08/04/16 05:45 08/04/16 05:45 07/28/16 05:30 07/28/16 05:30 07/24/16 05:00 07/20/16 05:50 07/19/16 09:50 hgb/hct remain stable @ 9.8/29.3 culture grew G (+) cocci, WBC down to 4.8 continue ABx transfuse as necessary f/u electrolytes, cbc new right Anton cath new onset seiure activity requires new PICC line because no access for iv ABx pulled out PICC, now using Anton cath for access developed shock, likely septic on Levo 20 mcg keep dialysis schedule T,,S for now due to recent events Lab - Result Diagrams 07/19/16 09:50 07/20/16 05:50 Lab - Result Diagrams 07/21/16 06:16 07/20/16 05:50 Lab - Result Diagrams 07/26/16 11:05 07/24/16 05:00 Lab - Result Diagrams 07/29/16 05:55 07/28/16 05:30 Lab - Result Diagrams 08/12/16 05:19 08/12/16 05:19 Lab - Result Diagrams 08/17/16 07:20 08/17/16 07:20 Lab - Result Diagrams 08/25/16 06:51 08/25/16 06:51 Lab - Result Diagrams 09/01/16 08:45 09/01/16 08:45
[2016-09-02] MEDS ORDERED: SODIUM CHLORIDE 0.9% IV ONE (18:05)
[2016-09-02] MEDS ORDERED: HYDROCORTISONE SODIUM SUCC IV ONE (18:05)
[2016-09-02] MEDS ORDERED: Levetiracetam 500mg/100mL 500 MG/100 ML BAG IV SCH (18:15)
[2016-09-02 20:06] LABS: HEMATOCRIT 31.8 % (39.0-49.0); HEMOGLOBIN 10.4 gm/dL (13.2-17.3); MEAN CORPUSCULAR HEMOGLOBIN 27.1 pg (26.0-30.0); MEAN CORPUSCULAR HGB CONC 32.6 pg (28.0-36.0); MEAN PLATELET VOLUME 9.3 fl; RED BLOOD COUNT 3.84 Mil/cmm (4.30-5.70); RED CELL DISTRIBUTION WIDTH 16.2 % (11.5-20.0); WHITE BLOOD COUNT 4.8 Th/cmm (4.8-10.8)
[2016-09-02 20:12] LABS: ALB/GLOB RATIO 0.7 (1.0-1.8); BILIRUBIN,TOTAL 1.8 mg/dL (0.3-1.0); BUN/CREATININE RATIO 12.3; CALCIUM SERUM 8.1 mg/dL (8.6-10.3); CARBON DIOXIDE 20.6 mEq/L (21.0-31.0); POTASSIUM SERUM 3.6 mEq/L (3.5-5.1)
[2016-09-02 20:35] LABS: CREATININE - SERUM 4.8 mg/dL (0.7-1.3)
[2016-09-02 20:36] LABS: PLATELET COUNT 29 Th/cmm (150-400)
[2016-09-02 20:41] LABS: BAND NEUTROPHILE 18 % (0-10); NEUTROPHILS 62 % (40-80)
[2016-09-02 20:42] LABS: EOSINOPHIL 2 % (0-5); PLATELET ESTIMATE DECREASED PLATELETS (NORMAL)
[2016-09-02] MEDS: Vancomycin HCL 250 mg /10mL UDC PO SCH (21:04)
[2016-09-02] MEDS ORDERED: Hydrocortisone Sodium Succ 100 mg Vial IVP ONE (22:04)
[2016-09-02] MEDS ORDERED: Levetiracetam 500 mg/5mL 5mL UDC ONE (22:06)
[2016-09-02] MEDS ORDERED: Levetiracetam 500mg/100mL 500 MG/100 ML BAG IV ONE (22:10)
[2016-09-03 05:30] LABS: HEMOGLOBIN 10.1 gm/dL (13.2-17.3); RED BLOOD COUNT 3.68 Mil/cmm (4.30-5.70)
[2016-09-03 05:35] LABS: ANION GAP 19.3 (7.0-16.0); BUN/CREATININE RATIO 12.6; CALCIUM SERUM 7.8 mg/dL (8.6-10.3); CARBON DIOXIDE 19.4 mEq/L (21.0-31.0); POTASSIUM SERUM 3.7 mEq/L (3.5-5.1)
[2016-09-03 05:39] LABS: HEMATOCRIT 30.6 % (39.0-49.0); MEAN CELL VOLUME 83.1 fl (80-99); MEAN CORPUSCULAR HEMOGLOBIN 27.5 pg (26.0-30.0); MEAN CORPUSCULAR HGB CONC 33.1 pg (28.0-36.0); RED CELL DISTRIBUTION WIDTH 16.5 % (11.5-20.0); WHITE BLOOD COUNT 4.1 Th/cmm (4.8-10.8)
[2016-09-03 05:50] LABS: MEAN PLATELET VOLUME 8.9 fl
[2016-09-03 05:51] LABS: PLATELET COUNT 27 Th/cmm (150-400)
--- NOTE | 2016-09-03 06:24 | Psychosocial Evaluation ---
DATE OF SERVICE: 09/02/2016 SUBJECTIVE: They called me, When I came and saw the patient, essentially the patient became suddenly altered and blood pressure dropped to 60 and the order to give albuminand put in trendenburge position. I came and saw him, unarousable. He is getting worse and I reviewed his labs. His hemoglobin is 9.8 and hematocrit is 29. OBJECTIVE: HEAD: Head examination is normal. ENT normal. LUNGS: Bilaterally decreased. CARDIOVASCULAR SYSTEM: S1 and S2 heard. ABDOMEN: Soft. EXTREMITIES: Revealed 2+ to 3+ pitting edema. Diagnoses of hypotension hypotensive shock rule out sepsis septic shock. The hypoxemia history of functional quadriparesis history of status post septic shock in the past. History of cellulitis of the leg. CKD history of GI bleeding. PLAN: The patient is going to be transferred to the ICU. I will go ahead and do the stool for occult blood. We will do all his labs including CBC, chemistry, urine cultures and blood culture and also we will do lactic acid level and I will have Dr. Hollis Austin, reevaluate the patient for septic shock and I will continue giving his fluids and we will give him Levophed if necessary and the patient's condition is critical at this time. CRITICAL CARE TIME: 1 hour. JOB# [id number] ARLENE
[2016-09-03] MEDS ORDERED: Dextrose 50% 50 mL Abboject IVP ONE ×2 (06:25→06:26)
[2016-09-03 06:29] LABS: BAND NEUTROPHILE 1 % (0-10); EOSINOPHIL 8 % (0-5); NEUTROPHILS 74 % (40-80); TOTAL CELLS COUNTED 100
[2016-09-03 06:30] LABS: PLATELET ESTIMATE DECREASED PLATELETS (NORMAL); PLATELET MORPHOLOGY GIANT PLATELETS SEEN (NORMAL)
[2016-09-03] MEDS: Dextrose 50% 50 mL Abboject IVP PRN ×10 (06:40→23:11)
[2016-09-03] MEDS ORDERED: Dextrose 10% 1,000 ML IV SCH ×2 (07:15→11:28)
[2016-09-03] MEDS ORDERED: Albumin 25% 25gm/100mL 25 GM/100 ML BTL IV ONE (08:31)
--- NOTE | 2016-09-03 08:33 | Diagnostic Imaging Report ---
CHEST X-RAY: AP view INDICATION: Shortness of breath COMPARISON: Chest x-ray 08/17/2016 FINDINGS: Exam is limited due to low lung volumes and body habitus. Right subclavian central line is seen with tip likely in the right atrium. Patient's right PICC line is not well-visualized. Mild Congestive changes are seen with no focal consolidation. Cardiomegaly is noted. There may be a small left effusion. IMPRESSION: Limited exam due to low lung volumes and body habitus. Mild congestive changes. No focal consolidation identified. Possible small left effusion Cardiomegaly. Patient's previous right PICC line is not well-visualized and may have been removed. Please correlate clinically. Right subclavian central line with tip likely in the right atrium.
[2016-09-03] MEDS ORDERED: Albumin 25% 12.5gm/50mL 12.5 GM/50 ML BTL IV ONE ×2 (08:55→15:00)
[2016-09-03] MEDS ORDERED: Cefepime 1 GM in Sodium Chloride 0.9% 50 ML IV SCH (09:00)
[2016-09-03] MEDS ORDERED: Albumin 25% 25gm/100mL 50 GM/200 ML BTL IV ONE ×2 (09:00→14:09)
[2016-09-03] MEDS: Sodium Bicarbonate 8.4% 50mEq PFS IVP SCH ×2 (09:02→16:26)
[2016-09-03] MEDS: Menthol/Zinc Oxide Oint 113gm Tube TP SCH ×3 (09:03→17:37)
[2016-09-03 09:11] LABS: ABG SOURCE Arterial; ALLEN TEST Positive; BE(B) -8.2 mEq/L (-3.0-3.0); HCO3 18.6 mEq/L (20.0-26.0); pH 7.37 (7.35-7.45)
[2016-09-03 09:12] LABS: FIO2 30; MECH RATE 12; PS 6
[2016-09-03] MEDS: Therahoney Gel 42.5gm Tube TP SCH (10:14)
[2016-09-03] MEDS: Lactulose 10 Gm/15 mL 30mL UDC PO SCH ×3 (10:15→16:30)
[2016-09-03] MEDS: Lactobacillus Rhamnosus 10 Billion CFU Capsule PO SCH (10:15)
[2016-09-03] MEDS: Vancomycin HCL 250 mg /10mL UDC PO SCH ×4 (10:16→21:03)
[2016-09-03 11:13] LABS: INR 2.38 (0.5-1.4); PROTHROMBIN TIME (TEST) 25.9 SECONDS (9.5-11.5)
--- NOTE | 2016-09-03 12:56 | Consultation ---
DATE OF CONSULTATION: 09/03/2016 REFERRING PHYSICIAN: Dr. Valadez. REASON FOR CONSULTATION: Thrombocytopenia. HISTORY OF PRESENT ILLNESS: The patient is a 51-year-old morbidly obese male who is seen in the Intensive Care Unit in [facility]. The patient is on BiPAP for respiratory failure and he is on vasopressors, Levophed and Ehsan-Synephrine for hypertension and sepsis, on albumin for tachycardia and hypovolemia. He was found to have progressive thrombocytopenia; therefore, I was asked to evaluate. PAST MEDICAL HISTORY: End-stage renal disease, peripheral vascular disease, obesity, cellulitis of the left leg, which is chronic. The patient is a chronic dialysis patient. CURRENT MEDICATIONS: Diflucan, vancomycin, Keppra, Protonix, Levophed and Ehsan-Synephrine among other medications. Other medical history, per medical records which was reviewed. PHYSICAL EXAMINATION: GENERAL: The patient is awake, somewhat lethargic, answers to questions, morbidly obese. VITAL SIGNS: Temp 98, blood pressure 84 systolic and diastolic 40. CHEST: Right chest [id number], no other IV access. There is peripheral IV and chest ____ that is not functioning. EXTREMITIES: Edema of all 4 extremities with erythema and some skin ulceration, also sacral decub. SKIN: Tattoos. LABORATORY DATA: White count 4.1, hemoglobin 10.1, platelets 27. Creatinine ____, bilirubin 1.8. Ultrasound of the abdomen showed hepatomegaly, liver 22 cm and spleen 14.5 cm. ASSESSMENT: Recent worsening of thrombocytopenia. The patient had platelet count of over 100,000 until earlier this month and this started going down sharply after that even further in the past 3 days. There is no active bleeding. DIFFERENTIAL DIAGNOSES: 1. Disseminated intravascular coagulation. 2. Bone marrow suppression by sepsis. 3. Drug induced. PLAN: I will obtain DIC panel. I will transfuse platelets prior to PICC line insertion for bleeding or platelet count less than 20,000. Monitor the vanco level. If there is no DIC evidence, then I will discontinue Protonix once oral intake is established. Thank you Dr. Valadez for the opportunity to participate in the care of this interesting patient. JOB# [id number]
--- NOTE | 2016-09-03 13:12 | Progress Notes ---
DATE: 09/02/2016 PROBLEM LIST: 1. Chronic respiratory failure. 2. Severe obstructive sleep apnea syndrome. 3. Morbid obesity. 4. Chronic renal failure, on hemodialysis. SYMPTOMS: Nil. The patient was on BiPAP, moved to ICU, had episode of hypotensive post-dialysis. The patient is awake, no respiratory distress, etc. PHYSICAL EXAMINATION: VITAL SIGNS: The patient's recorded vitals: Temperature is 99. The patient's blood pressure was 80-90 earlier, respirations 20, saturation is 92% on 2 liters, now currently on a BiPAP. NECK: Veins not visualized. CHEST: Shows diminished air entry. No other adventitious breath sounds. ABDOMEN: ____ distended. EXTREMITIES: Shows significant chronic changes, no localized tenderness. LABORATORY DATA: The patient's today's earlier lab tests, WBC is 4.8, hemoglobin 9.8. Electrolytes are okay. Creatinine is 4.7. ASSESSMENT: 1. The patient post-dialysis hypotension, exact etiology is not clear. 2. Associated persistent respiratory failure because of morbid obesity and obesity-hypoventilation syndrome, also associated obstructive sleep apnea syndrome and renal failure. PLANS AND SUGGESTIONS: We will continue current respiratory care. We might have to give fluid challenge if blood pressure remains low side and will continue rest of other treatment including BiPAP p.r.n. and regularly during the night time. [facility]# [id number]
--- NOTE | 2016-09-03 13:35 | General Progress Note ---
Subjective - Review of Systems Events since last encounter: Pt. on bipap awake, somewhat lethargic worsening thrombocytopenia no active bleeding Subjective: pt is still sob c/o weakness getting better Objective - Results Result Diagrams: 09/03/16 05:07 09/03/16 05:07 Recent Labs: Laboratory Last Values WBC 4.1 Th/cmm (4.8-10.8) L 09/03/16 05:07 RBC 3.68 Mil/cmm (4.30-5.70) L 09/03/16 05:07 Hgb 10.1 gm/dL (13.2-17.3) L 09/03/16 05:07 Hct 30.6 % (39.0-49.0) L 09/03/16 05:07 MCV 83.1 fl (80-99) 09/03/16 05:07 MCH 27.5 pg (26.0-30.0) 09/03/16 05:07 MCHC Differential 33.1 pg (28.0-36.0) 09/03/16 05:07 RDW 16.5 % (11.5-20.0) 09/03/16 05:07 Plt Count 27 Th/cmm (150-400) L* 09/03/16 05:07 MPV 8.9 fl 09/03/16 05:07 Neutrophils % 56.8 % (40.0-80.0) 07/07/16 06:00 Band Neutrophils % 1 % (0-10) 09/03/16 05:07 Lymphocytes % 18.4 % (20.0-50.0) L 07/07/16 06:00 Monocytes % 13.8 % (2.0-10.0) H 07/07/16 06:00 Eosinophils % 11.0 % (0.0-5.0) H 07/07/16 06:00 Basophils % 0.0 % (0.0-2.0) 07/07/16 06:00 Neutrophils (Manual) 74 % (40-80) 09/03/16 05:07 Lymphocytes 5 % (20-50) L 09/03/16 05:07 Monocytes 12 % (2-10) H 09/03/16 05:07 Eosinophils 8 % (0-5) H 09/03/16 05:07 Basophils 3 % (0-3) 08/04/16 08:33 Metamyelocytes 1 % (0-0) H 08/14/16 07:40 Myelocytes 1 % 07/14/16 16:00 Nucleated RBCs 3.0 % (0-0) H 09/02/16 19:45 Hypochromia 1+ 07/20/16 23:30 Platelet Estimate DECREASED PLATELETS (NORMAL) 09/03/16 05:07 Platelet Morphology GIANT PLATELETS SEEN (NORMAL) 09/03/16 05:07 Polychromasia 1+ 07/20/16 23:30 Anisocytosis 1+ 08/25/16 06:51 Microcytosis 1+ 07/14/16 16:00 RBC Morph Micro Appear ABNORMAL (NORMAL) 08/25/16 06:51 Plt Count TNP 09/03/16 10:40 PT 25.9 SECONDS (9.5-11.5) H 09/03/16 10:40 INR 2.38 (0.5-1.4) H 09/03/16 10:40 PTT (Actin FS) 63.0 SECONDS (26.0-38.0) H 09/03/16 10:40 Fibrinogen 204.0 mg/dL (200.0-400.0) 09/03/16 10:40 D-Dimer 4300 ng/mL (100-400) H 09/03/16 10:40 Specimen Source Arterial 09/03/16 08:47 Sample Site Right Radial 09/03/16 08:47 pH 7.37 (7.35-7.45) 09/03/16 08:47 pCO2 27.0 mmHg (35.0-45.0) L 09/03/16 08:47 pO2 118.0 mmHg (80.0-100.0) H 09/03/16 08:47 HCO3 18.6 mEq/L (20.0-26.0) L 09/03/16 08:47 Base Excess -8.2 mEq/L (-3.0-3.0) L 09/03/16 08:47 O2 Saturation 98.0 % (92.0-100.0) 09/03/16 08:47 Estuardo Test Positive 09/03/16 08:47 Vent Rate 12 09/03/16 08:47 Inspired O2 30 09/03/16 08:47 Tidal Volume NA 09/03/16 08:47 PEEP 12 09/03/16 08:47 Pressure (ins/psv/peep) 6 09/03/16 08:47 Critical Value LZHANG 09/03/16 08:47 Sodium 136 mEq/L (136-145) 09/03/16 05:07 Potassium 3.7 mEq/L (3.5-5.1) 09/03/16 05:07 Chloride 101 mEq/L (98-107) 09/03/16 05:07 Carbon Dioxide 19.4 mEq/L (21.0-31.0) L 09/03/16 05:07 Anion Gap 19.3 (7.0-16.0) H 09/03/16 05:07 BUN 63 mg/dL (7-25) H 09/03/16 05:07 Creatinine 5.0 mg/dL (0.7-1.3) H* 09/03/16 05:07 Est GFR ( Amer) 15.9 ml/min (>90) 09/03/16 05:07 Est GFR (Non-Af Amer) 13.2 ml/min 09/03/16 05:07 BUN/Creatinine Ratio 12.6 09/03/16 05:07 Glucose 31 mg/dL (70-105) L* 09/03/16 05:07 POC Glucose 65 MG/DL (70 - 105) L 09/03/16 11:52 Hemoglobin A1c % 4.8 % (4.0-6.0) 08/13/16 06:04 Whole Bld Lactic Acid 1.54 mmol/L (0.60-1.99) 08/13/16 06:04 Calcium 7.8 mg/dL (8.6-10.3) L 09/03/16 05:07 Phosphorus 5.5 mg/dL (2.5-5.0) H 07/19/16 09:50 Magnesium 1.9 mg/dL (1.9-2.7) 08/04/16 05:45 Iron 42 ug/dL (38-169) 06/28/16 04:38 TIBC 269 ug/dL (250-450) 06/28/16 04:38 Iron Saturation 16 % (15-55) 06/28/16 04:38 Unsaturated IBC 227 ug/dL (111-343) 06/28/16 04:38 Ferritin 150 ng/mL (30-400) 06/26/16 08:30 Total Bilirubin 1.8 mg/dL (0.3-1.0) H 09/02/16 19:45 Direct Bilirubin 0.70 mg/dL (0.0-0.2) H 06/28/16 04:38 GGTP 14 IU/L (0-65) 06/28/16 04:38 AST 8 U/L (13-39) L 09/02/16 19:45 ALT 4 U/L (7-52) L 09/02/16 19:45 Alkaline Phosphatase 50 U/L (34-104) 09/02/16 19:45 Ammonia 73 umol/L (16-53) H 08/12/16 05:19 Troponin I < 0.01 ng/mL (0.01-0.05) L 06/22/16 19:33 B-Natriuretic Peptide 668.0 pg/mL (5.0-100.0) H 06/22/16 19:33 Total Protein 6.0 gm/dL (6.0-8.3) 09/02/16 19:45 Albumin 2.4 gm/dL (4.2-5.5) L 09/02/16 19:45 Globulin 3.6 gm/dL 09/02/16 19:45 Albumin/Globulin Ratio 0.7 (1.0-1.8) L 09/02/16 19:45 Amylase 28 U/L (29-103) L 07/02/16 06:40 Lipase 31 U/L (11-82) 07/02/16 06:40 TSH 2.98 uIU/ml (0.34-5.60) 08/13/16 06:04 Urine Source CLEAN C 06/29/16 05:55 Urine Color YELLOW 06/29/16 05:55 Urine Clarity HAZY (CLEAR) 06/29/16 05:55 Urine pH 5.5 06/29/16 05:55 Ur Specific [place] 1.015 (1.005-1.030) 06/29/16 05:55 Urine Protein 30 mg/dL (NEGATIVE) H 06/29/16 05:55 Urine Glucose (UA) NEGATIVE mg/dL (NEGATIVE) 06/29/16 05:55 Urine Ketones NEGATIVE mg/dL (NEGATIVE) 06/29/16 05:55 Urine Blood NEGATIVE (NEGATIVE) 06/29/16 05:55 Urine Nitrate NEGATIVE (NEGATIVE) 06/29/16 05:55 Urine Bilirubin NEGATIVE (NEGATIVE) 06/29/16 05:55 Urine Urobilinogen 0.2 E.U./dL (0.2 - 1.0) 06/29/16 05:55 Ur Leukocyte Esterase TRACE (NEGATIVE) H 06/29/16 05:55 Urine RBC 0-2 /hpf (0-5) H 06/29/16 05:55 Urine WBC 6-10 /hpf (0-5) H 06/29/16 05:55 Ur Epithelial Cells FEW /lpf (FEW) 06/29/16 05:55 Urine Bacteria MANY /hpf (NONE SEEN) 06/29/16 05:55 Stool Occult Blood POSITIVE (NEGATIVE) 08/17/16 11:00 Stool Leukocyte NO WBC SEEN 08/17/16 11:00 Gentamicin Trough ug/ml (0.2-2.0) 08/12/16 05:19 Random Vancomycin 16.5 ug/mL (5.0-40.0) 09/03/16 05:07 RPR NONREACTIVE (NONREACTIVE) 06/22/16 19:33 Helicobacter pylori Ab NEGATIVE (NEGATIVE) 08/23/16 12:00 Hepatitis A IgM Ab Negative (Negative) 06/29/16 05:49 Hep Bs Antigen Negative (Negative) 06/29/16 05:49 Hep B Core IgM Ab Negative (Negative) 06/29/16 05:49 Hepatitis C Antibody >11.0 s/co ratio (0.0-0.9) H 06/29/16 05:49 Blood Type A POSITIVE 09/02/16 19:45 Antibody Screen NEGATIVE 08/10/16 21:07 Crossmatch See Detail 08/10/16 21:07 - Physical Exam Vitals and I&O: Vital Signs Temp 97.1 F 09/03/16 08:00 Pulse 135 09/03/16 12:38 Resp 28 09/03/16 11:20 BP 72/32 09/03/16 12:38 Pulse Ox 90 09/03/16 12:00 Intake & Output 09/02/16 09/03/16 09/03/16 18:59 06:59 18:59 Intake Total 700 259.358 4929.972 Output Total 0 Balance 700 900.071 1863.972 Intake: Intake, IV Amount 603.428 748.972 Levetiracetam 500mg/100mL 100 500 mg In 100 ml @ 400 mls/hr IV Q12H [facility] Rx#: [id number] Norepinephrine 4 mg In 503.428 254 Dextrose 5% 250 ml @ 10 MCG/MIN 38.1 mls/hr IV TITR PRN Rx#:[id number] Phenylephrine HCl 10 mg 494.972 In Sodium Chloride 0.9% 250 ml @ 180 MCG/MIN 271. 08 mls/hr IV TITR [facility] Rx# :[id number] Oral 500 250 Blood Product 150 Albumin 200 Output: Urine 0 Other: # Bowel Movements 1 Stool Characteristics Soft Liquid Liquid Brown Brown Active Medications: Current Medications Acetaminophen (Tylenol) 650 mg PO Q6H PRN PRN Reason: temperature above 100F Stop: 09/28/16 16:14 Last Admin: 09/02/16 09:23 Dose: 650 mg Calamine/Phenol (Calmoseptine) 1 appl TP QID [facility] Stop: 10/14/16 12:59 Last Admin: 09/03/16 09:03 Dose: 1 appl Dextrose (D50w) 50 ml IVP PRN PRN PRN Reason: Blood Sugar less than 70 Stop: 09/04/16 06:24 Last Admin: 09/03/16 11:31 Dose: 50 ml Diphenhydramine HCl (Benadryl 50 Mg/Ml) 25 mg IVP Q6HR PRN PRN Reason: itching Stop: 10/11/16 03:12 Last Admin: 08/14/16 11:25 Dose: 25 mg Docusate Sodium (Colace) 100 mg PO Q12HR [facility] Stop: 09/16/16 08:59 Last Admin: 09/03/16 10:15 Dose: Not Given Fluconazole (Diflucan) 100 mg PO DAILY [facility] Stop: 09/05/16 08:59 Last Admin: 09/03/16 10:15 Dose: Not Given Sodium Chloride (Nacl 0.9%) 1,000 mls @ 10 mls/hr IV .Q24H [facility] Stop: 10/15/16 15:01 Last Admin: 08/30/16 12:44 Dose: 10 mls/hr Cefepime HCl 1 gm/ Sodium (Chloride) 50 mls @ 100 mls/hr IV DAILY [facility] Stop: 11/02/16 08:59 Last Admin: 09/03/16 10:37 Dose: 100 mls/hr Norepinephrine Bitartrate 8 mg (/ Dextrose) 258 mls @ 58.05 mls/hr IV TITR PRN ; Protocol; 30 MCG/MIN PRN Reason: BP MAINTENANCE (PER PROTOCOL) Stop: 11/02/16 08:38 Phenylephrine HCl 10 mg/ (Sodium Chloride) 251 mls @ 271.08 mls/hr IV TITR [facility] ; 180 MCG/MIN PRN Reason: Protocol Stop: 11/02/16 08:59 Last Admin: 09/03/16 12:32 Dose: 180 mcg/min, 271.08 mls/hr Levetiracetam (Keppra Pb) 500 mg in 100 mls @ 400 mls/hr IV Q12HR [facility] Stop: 11/02/16 09:59 Dextrose (Dextrose 10%) 1,000 mls @ 50 mls/hr IV .Q20H [facility] Stop: 11/02/16 11:27 Last Admin: 09/03/16 11:40 Dose: 50 mls/hr Lactobacillus Rhamnosus (Culturelle) 1 each PO DAILY [facility] Stop: 10/12/16 08:59 Last Admin: 09/03/16 10:15 Dose: Not Given Lactulose (Cephulac) 30 gm PO QID [facility] Stop: 10/28/16 12:59 Last Admin: 09/03/16 13:18 Dose: Not Given Lorazepam (Ativan) 2 mg IVP Q2HR PRN; Protocol PRN Reason: Seizures Stop: 10/19/16 10:06 Miscellaneous (Clinical Monitoring) 1 ea [facility] DAILY PRN PRN Reason: RENAL Stop: 10/06/16 08:17 Miscellaneous (Probiotic Screen) 1 ea MC PRN PRN PRN Reason: PROTOCOL Stop: 10/11/16 14:12 Miscellaneous (Vancomycin Iv Per Pharmacy) 1 ea MC PRN PRN PRN Reason: PROTOCOL Stop: 10/22/16 11:55 Morphine Sulfate (Morphine) 2 mg IV Q4HR PRN PRN Reason: PAIN Stop: 10/15/16 13:36 Last Admin: 09/02/16 11:12 Dose: 2 mg Ondansetron HCl (Zofran) 4 mg IV Q6H PRN PRN Reason: Nausea / Vomiting Stop: 11/02/16 10:12 Pantoprazole Sodium (Protonix) 40 mg IVP BID [facility] Stop: 10/19/16 16:59 Last Admin: 09/03/16 09:02 Dose: 40 mg Sodium Bicarbonate (Sodium Bicarb) 50 meq IVP BID [facility] Stop: 10/13/16 16:59 Last Admin: 09/03/16 09:02 Dose: 50 meq Sorbitol (Sorbitol) 100 ml PO DAILY [facility] Stop: 10/28/16 12:14 Last Admin: 09/03/16 10:14 Dose: Not Given Vancomycin HCl (Vancomycin Oral) 250 mg PO QID [facility] Stop: 11/01/16 16:59 Last Admin: 09/03/16 13:08 Dose: Not Given Wound Care/Dressing Products (Therahoney) 1 appl TP DAILY [facility] Stop: 10/30/16 15:59 Last Admin: 09/03/16 10:14 Dose: 1 appl General: Alert, No acute distress, Other (somewhat lethargic) HEENT: Atraumatic, PERRLA, EOMI Neck: Supple Cardiovascular: Other (Tachycardia) Lungs: Clear to auscultation Abdomen: Bowel sounds, Obese Extremities: Edema (all 4 extremities) Skin: Other (erythema and some skin ulcerations ) - Procedures Procedures: Procedures Procedure Code Date ARTERY-VEIN NONAUTOGRAFT 06346 06/22/16 BLOOD TRANSFUSION SERVICE 32435 06/22/16 BYPASS L BRACH ART TO UP ARM VEIN W NONAUT SUB, OPEN [id number] 06/22/16 FLUOROSCOPY OF SUP VENA CAVA USING [facility] CONTRAST, GUIDANCE [id number] 06/22/16 INSERTION OF INFUSION DEV INTO SUP VENA CAVA, PERC APPROACH [id number] 06/22/16 PL[address] CATHETER IN VEIN 09056 06/22/16 TRANSFUSE NONAUT RED BLOOD CELLS IN PERIPH VEIN, PERC [id number] 06/22/16 Assessment/Plan - Problem List Patient Problems: All Active Problems Anemia (Acute) D64.9 ESRD (end stage renal disease) (Acute) ESRD (end stage renal disease) on dialysis (Acute) N18.6, Z99.2 ESRD (end stage renal disease) on dialysis (Acute) N18.6, Z99.2 HYPOTENSION (Acute) HYPOXEMIA (Acute) MEDICAL EVALUATION PER DR FRY (Acute) funtional quadriperisis (Acute) septic shock (Acute) - Assessment Assessment: 1. Cellulitis of legs. 2. Lymphedema of legs. 3. CKD 5 on HD. 4. Morbid obesity. 5. Anemia 6. GI bleed 7. Psychosis 8. Thrombocytopenia - Plan Plan: dialysis iv antibiotics ltac eval tele status snif plan DIC panel
[2016-09-03] MEDS: Levetiracetam 500mg/100mL 500 MG/100 ML BAG IV SCH (13:47)
--- NOTE | 2016-09-03 17:34 | General Progress Note ---
Subjective - Review of Systems Service Date: 09/03/16 (stuporous hypotensive despite max dose of ) Objective - Results Result Diagrams: 09/03/16 05:07 09/03/16 05:07 Recent Labs: Laboratory Last Values WBC 4.1 Th/cmm (4.8-10.8) L 09/03/16 05:07 RBC 3.68 Mil/cmm (4.30-5.70) L 09/03/16 05:07 Hgb 10.1 gm/dL (13.2-17.3) L 09/03/16 05:07 Hct 30.6 % (39.0-49.0) L 09/03/16 05:07 MCV 83.1 fl (80-99) 09/03/16 05:07 MCH 27.5 pg (26.0-30.0) 09/03/16 05:07 MCHC Differential 33.1 pg (28.0-36.0) 09/03/16 05:07 RDW 16.5 % (11.5-20.0) 09/03/16 05:07 Plt Count 27 Th/cmm (150-400) L* 09/03/16 05:07 MPV 8.9 fl 09/03/16 05:07 Neutrophils % 56.8 % (40.0-80.0) 07/07/16 06:00 Band Neutrophils % 1 % (0-10) 09/03/16 05:07 Lymphocytes % 18.4 % (20.0-50.0) L 07/07/16 06:00 Monocytes % 13.8 % (2.0-10.0) H 07/07/16 06:00 Eosinophils % 11.0 % (0.0-5.0) H 07/07/16 06:00 Basophils % 0.0 % (0.0-2.0) 07/07/16 06:00 Neutrophils (Manual) 74 % (40-80) 09/03/16 05:07 Lymphocytes 5 % (20-50) L 09/03/16 05:07 Monocytes 12 % (2-10) H 09/03/16 05:07 Eosinophils 8 % (0-5) H 09/03/16 05:07 Basophils 3 % (0-3) 08/04/16 08:33 Metamyelocytes 1 % (0-0) H 08/14/16 07:40 Myelocytes 1 % 07/14/16 16:00 Nucleated RBCs 3.0 % (0-0) H 09/02/16 19:45 Hypochromia 1+ 07/20/16 23:30 Platelet Estimate DECREASED PLATELETS (NORMAL) 09/03/16 05:07 Platelet Morphology GIANT PLATELETS SEEN (NORMAL) 09/03/16 05:07 Polychromasia 1+ 07/20/16 23:30 Anisocytosis 1+ 08/25/16 06:51 Microcytosis 1+ 07/14/16 16:00 RBC Morph Micro Appear ABNORMAL (NORMAL) 08/25/16 06:51 Plt Count TNP 09/03/16 10:40 PT 25.9 SECONDS (9.5-11.5) H 09/03/16 10:40 INR 2.38 (0.5-1.4) H 09/03/16 10:40 PTT (Actin FS) 63.0 SECONDS (26.0-38.0) H 09/03/16 10:40 Fibrinogen 204.0 mg/dL (200.0-400.0) 09/03/16 10:40 D-Dimer 4300 ng/mL (100-400) H 09/03/16 10:40 Specimen Source Arterial 09/03/16 08:47 Sample Site Right Radial 09/03/16 08:47 pH 7.37 (7.35-7.45) 09/03/16 08:47 pCO2 27.0 mmHg (35.0-45.0) L 09/03/16 08:47 pO2 118.0 mmHg (80.0-100.0) H 09/03/16 08:47 HCO3 18.6 mEq/L (20.0-26.0) L 09/03/16 08:47 Base Excess -8.2 mEq/L (-3.0-3.0) L 09/03/16 08:47 O2 Saturation 98.0 % (92.0-100.0) 09/03/16 08:47 Estuardo Test Positive 09/03/16 08:47 Vent Rate 12 09/03/16 08:47 Inspired O2 30 09/03/16 08:47 Tidal Volume NA 09/03/16 08:47 PEEP 12 09/03/16 08:47 Pressure (ins/psv/peep) 6 09/03/16 08:47 Critical Value LZHANG 09/03/16 08:47 Sodium 136 mEq/L (136-145) 09/03/16 05:07 Potassium 3.7 mEq/L (3.5-5.1) 09/03/16 05:07 Chloride 101 mEq/L (98-107) 09/03/16 05:07 Carbon Dioxide 19.4 mEq/L (21.0-31.0) L 09/03/16 05:07 Anion Gap 19.3 (7.0-16.0) H 09/03/16 05:07 BUN 63 mg/dL (7-25) H 09/03/16 05:07 Creatinine 5.0 mg/dL (0.7-1.3) H* 09/03/16 05:07 Est GFR ( Amer) 15.9 ml/min (>90) 09/03/16 05:07 Est GFR (Non-Af Amer) 13.2 ml/min 09/03/16 05:07 BUN/Creatinine Ratio 12.6 09/03/16 05:07 Glucose 31 mg/dL (70-105) L* 09/03/16 05:07 POC Glucose 46 MG/DL (70 - 105) L 09/03/16 17:05 Hemoglobin A1c % 4.8 % (4.0-6.0) 08/13/16 06:04 Whole Bld Lactic Acid 1.54 mmol/L (0.60-1.99) 08/13/16 06:04 Calcium 7.8 mg/dL (8.6-10.3) L 09/03/16 05:07 Phosphorus 5.5 mg/dL (2.5-5.0) H 07/19/16 09:50 Magnesium 1.9 mg/dL (1.9-2.7) 08/04/16 05:45 Iron 42 ug/dL (38-169) 06/28/16 04:38 TIBC 269 ug/dL (250-450) 06/28/16 04:38 Iron Saturation 16 % (15-55) 06/28/16 04:38 Unsaturated IBC 227 ug/dL (111-343) 06/28/16 04:38 Ferritin 150 ng/mL (30-400) 06/26/16 08:30 Total Bilirubin 1.8 mg/dL (0.3-1.0) H 09/02/16 19:45 Direct Bilirubin 0.70 mg/dL (0.0-0.2) H 06/28/16 04:38 GGTP 14 IU/L (0-65) 06/28/16 04:38 AST 8 U/L (13-39) L 09/02/16 19:45 ALT 4 U/L (7-52) L 09/02/16 19:45 Alkaline Phosphatase 50 U/L (34-104) 09/02/16 19:45 Ammonia 73 umol/L (16-53) H 08/12/16 05:19 Troponin I < 0.01 ng/mL (0.01-0.05) L 06/22/16 19:33 B-Natriuretic Peptide 668.0 pg/mL (5.0-100.0) H 06/22/16 19:33 Total Protein 6.0 gm/dL (6.0-8.3) 09/02/16 19:45 Albumin 2.4 gm/dL (4.2-5.5) L 09/02/16 19:45 Globulin 3.6 gm/dL 09/02/16 19:45 Albumin/Globulin Ratio 0.7 (1.0-1.8) L 09/02/16 19:45 Amylase 28 U/L (29-103) L 07/02/16 06:40 Lipase 31 U/L (11-82) 07/02/16 06:40 TSH 2.98 uIU/ml (0.34-5.60) 08/13/16 06:04 Urine Source CLEAN C 06/29/16 05:55 Urine Color YELLOW 06/29/16 05:55 Urine Clarity HAZY (CLEAR) 06/29/16 05:55 Urine pH 5.5 06/29/16 05:55 Ur Specific [place] 1.015 (1.005-1.030) 06/29/16 05:55 Urine Protein 30 mg/dL (NEGATIVE) H 06/29/16 05:55 Urine Glucose (UA) NEGATIVE mg/dL (NEGATIVE) 06/29/16 05:55 Urine Ketones NEGATIVE mg/dL (NEGATIVE) 06/29/16 05:55 Urine Blood NEGATIVE (NEGATIVE) 06/29/16 05:55 Urine Nitrate NEGATIVE (NEGATIVE) 06/29/16 05:55 Urine Bilirubin NEGATIVE (NEGATIVE) 06/29/16 05:55 Urine Urobilinogen 0.2 E.U./dL (0.2 - 1.0) 06/29/16 05:55 Ur Leukocyte Esterase TRACE (NEGATIVE) H 06/29/16 05:55 Urine RBC 0-2 /hpf (0-5) H 06/29/16 05:55 Urine WBC 6-10 /hpf (0-5) H 06/29/16 05:55 Ur Epithelial Cells FEW /lpf (FEW) 06/29/16 05:55 Urine Bacteria MANY /hpf (NONE SEEN) 06/29/16 05:55 Stool Occult Blood POSITIVE (NEGATIVE) 08/17/16 11:00 Stool Leukocyte NO WBC SEEN 08/17/16 11:00 Gentamicin Trough ug/ml (0.2-2.0) 08/12/16 05:19 Random Vancomycin 16.5 ug/mL (5.0-40.0) 09/03/16 05:07 RPR NONREACTIVE (NONREACTIVE) 06/22/16 19:33 Helicobacter pylori Ab NEGATIVE (NEGATIVE) 08/23/16 12:00 Hepatitis A IgM Ab Negative (Negative) 06/29/16 05:49 Hep Bs Antigen Negative (Negative) 06/29/16 05:49 Hep B Core IgM Ab Negative (Negative) 06/29/16 05:49 Hepatitis C Antibody >11.0 s/co ratio (0.0-0.9) H 06/29/16 05:49 Blood Type A POSITIVE 09/02/16 19:45 Antibody Screen NEGATIVE 08/10/16 21:07 Crossmatch See Detail 08/10/16 21:07 - Physical Exam Vitals and I&O: Vital Signs Temp 97.4 F 09/03/16 12:00 Pulse 150 09/03/16 14:00 Resp 23 09/03/16 15:21 BP 58/20 09/03/16 14:00 Pulse Ox 100 09/03/16 15:21 Intake & Output 09/02/16 09/03/16 09/03/16 18:59 06:59 18:59 Intake Total 700 134.565 8670.414 Output Total 0 Balance 700 032.104 4808.414 Intake: Intake, IV Amount 810.131 2322.414 Levetiracetam 500mg/100mL 100 500 mg In 100 ml @ 400 mls/hr IV Q12H [facility] Rx#: [id number] Norepinephrine 4 mg In 503.428 254 Dextrose 5% 250 ml @ 10 MCG/MIN 38.1 mls/hr IV TITR PRN Rx#:[id number] Norepinephrine 8 mg In 115.132 Dextrose 5% 250 ml @ 30 MCG/MIN 58.05 mls/hr IV TITR PRN Rx#:[id number] Phenylephrine HCl 10 mg 1200.282 In Sodium Chloride 0.9% 250 ml @ 180 MCG/MIN 271. 08 mls/hr IV TITR [facility] Rx# :[id number] Oral 500 250 Blood Product 150 Albumin 200 Output: Urine 0 Other: # Bowel Movements 1 Stool Characteristics Soft Liquid Liquid [place] Active Medications: Current Medications Acetaminophen (Tylenol) 650 mg PO Q6H PRN PRN Reason: temperature above 100F Stop: 09/28/16 16:14 Last Admin: 09/02/16 09:23 Dose: 650 mg Calamine/Phenol (Calmoseptine) 1 appl TP QID [facility] Stop: 10/14/16 12:59 Last Admin: 09/03/16 13:47 Dose: 1 appl Dextrose (D50w) 50 ml IVP PRN PRN PRN Reason: Blood Sugar less than 70 Stop: 09/04/16 06:24 Last Admin: 09/03/16 15:46 Dose: 50 ml Diphenhydramine HCl (Benadryl 50 Mg/Ml) 25 mg IVP Q6HR PRN PRN Reason: itching Stop: 10/11/16 03:12 Last Admin: 08/14/16 11:25 Dose: 25 mg Docusate Sodium (Colace) 100 mg PO Q12HR [facility] Stop: 09/16/16 08:59 Last Admin: 09/03/16 10:15 Dose: Not Given Fluconazole (Diflucan) 100 mg PO DAILY [facility] Stop: 09/05/16 08:59 Last Admin: 09/03/16 10:15 Dose: Not Given Sodium Chloride (Nacl 0.9%) 1,000 mls @ 10 mls/hr IV .Q24H [facility] Stop: 10/15/16 15:01 Last Admin: 08/30/16 12:44 Dose: 10 mls/hr Cefepime HCl 1 gm/ Sodium (Chloride) 50 mls @ 100 mls/hr IV DAILY [facility] Stop: 11/02/16 08:59 Last Admin: 09/03/16 10:37 Dose: 100 mls/hr Norepinephrine Bitartrate 8 mg (/ Dextrose) 258 mls @ 58.05 mls/hr IV TITR PRN ; Protocol; 30 MCG/MIN PRN Reason: BP MAINTENANCE (PER PROTOCOL) Stop: 11/02/16 08:38 Last Admin: 09/03/16 16:52 Dose: 30 mcg/min, 58.05 mls/hr Phenylephrine HCl 10 mg/ (Sodium Chloride) 251 mls @ 271.08 mls/hr IV TITR [facility] ; 180 MCG/MIN PRN Reason: Protocol Stop: 11/02/16 08:59 Last Admin: 09/03/16 15:37 Dose: 180 mcg/min, 271.08 mls/hr Levetiracetam (Keppra Pb) 500 mg in 100 mls @ 400 mls/hr IV Q12HR [facility] Stop: 11/02/16 09:59 Last Admin: 09/03/16 13:47 Dose: Not Given Dextrose (Dextrose 10%) 1,000 mls @ 50 mls/hr IV .Q20H [facility] Stop: 11/02/16 11:27 Last Admin: 09/03/16 11:40 Dose: 50 mls/hr Albumin Human (Albuminar 25%) 50 gm in 200 mls @ 50 mls/hr IV X1 ONE Stop: 09/03/16 18:08 Last Admin: 09/03/16 14:51 Dose: 50 mls/hr Lactobacillus Rhamnosus (Culturelle) 1 each PO DAILY [facility] Stop: 10/12/16 08:59 Last Admin: 09/03/16 10:15 Dose: Not Given Lactulose (Cephulac) 30 gm PO QID [facility] Stop: 10/28/16 12:59 Last Admin: 09/03/16 16:30 Dose: Not Given Lorazepam (Ativan) 2 mg IVP Q2HR PRN; Protocol PRN Reason: Seizures Stop: 10/19/16 10:06 Miscellaneous (Clinical Monitoring) 1 ea MC DAILY PRN PRN Reason: RENAL Stop: 10/06/16 08:17 Miscellaneous (Probiotic Screen) 1 ea MC PRN PRN PRN Reason: PROTOCOL Stop: 10/11/16 14:12 Miscellaneous (Vancomycin Iv Per Pharmacy) 1 ea MC PRN PRN PRN Reason: PROTOCOL Stop: 10/22/16 11:55 Morphine Sulfate (Morphine) 2 mg IV Q4HR PRN PRN Reason: PAIN Stop: 10/15/16 13:36 Last Admin: 09/02/16 11:12 Dose: 2 mg Ondansetron HCl (Zofran) 4 mg IV Q6H PRN PRN Reason: Nausea / Vomiting Stop: 11/02/16 10:12 Pantoprazole Sodium (Protonix) 40 mg IVP BID [facility] Stop: 10/19/16 16:59 Last Admin: 09/03/16 16:26 Dose: 40 mg Sodium Bicarbonate (Sodium Bicarb) 50 meq IVP BID [facility] Stop: 10/13/16 16:59 Last Admin: 09/03/16 16:26 Dose: 50 meq Sorbitol (Sorbitol) 100 ml PO DAILY [facility] Stop: 10/28/16 12:14 Last Admin: 09/03/16 10:14 Dose: Not Given Vancomycin HCl (Vancomycin Oral) 250 mg PO QID [facility] Stop: 11/01/16 16:59 Last Admin: 09/03/16 16:29 Dose: Not Given Wound Care/Dressing Products (Therahoney) 1 appl TP DAILY [facility] Stop: 10/30/16 15:59 Last Admin: 09/03/16 10:14 Dose: 1 appl General: Other (stuporous to unresponsive) HEENT: Atraumatic, Mucous membr. moist/pink Neck: Supple Cardiovascular: Other (tachycardia) Lungs: Normal air movement, Other (hard to auscultate unable to haera brath sounds) Abdomen: Bowel sounds (nomal) Extremities: Edema (plus 2) - Procedures Procedures: Procedures Procedure Code Date ARTERY-VEIN NONAUTOGRAFT 05318 06/22/16 BLOOD TRANSFUSION SERVICE 02409 06/22/16 BYPASS L BRACH ART TO UP ARM VEIN W NONAUT SUB, OPEN [id number] 06/22/16 FLUOROSCOPY OF SUP VENA CAVA USING [facility] CONTRAST, GUIDANCE [id number] 06/22/16 INSERTION OF INFUSION DEV INTO SUP VENA CAVA, PERC APPROACH [id number] 06/22/[address] CATHETER IN VEIN 06032 06/22/16 TRANSFUSE NONAUT RED BLOOD CELLS IN PERIPH VEIN, PERC [id number] 06/22/16 Assessment/Plan - Problem List Patient Problems: All Active Problems Anemia (Acute) D64.9 ESRD (end stage renal disease) (Acute) ESRD (end stage renal disease) on dialysis (Acute) N18.6, Z99.2 ESRD (end stage renal disease) on dialysis (Acute) N18.6, Z99.2 HYPOTENSION (Acute) HYPOXEMIA (Acute) MEDICAL EVALUATION PER DR FRY (Acute) funtional quadriperisis (Acute) septic shock (Acute) - Plan Plan: schedule for dialysis tomorrow need to be evaluated tomorrow if able to tolerate dialysis Spontaneous hypoglemia very poor prognosis we are utilizing access for dialysis for IV abd platelet transfusion
[2016-09-03] MEDS ORDERED: Piperacillin/Tazobact 2.25 gm in 0.9% NS 50 ML IV SCH (20:00)
[2016-09-03] MEDS ORDERED: Heparin Sodium 1,000 Units/mL Vial HD ONE (20:19)
[2016-09-03] MEDS: methylPREDNISolone SS 40 mg Vial IV SCH (21:46)
[2016-09-04] MEDS: Dextrose 50% 50 mL Abboject IVP PRN ×5 (00:07→07:04)
[2016-09-04] MEDS ORDERED: Dextrose 50% 50 mL Abboject IVP ONE ×5 (02:06→08:17)
[2016-09-04] MEDS ORDERED: Meropenem 500 MG in Sodium Chloride 0.9% 100 ML IV ONE (03:45)
[2016-09-04] MEDS ORDERED: Dextrose 10% 1,000 ML IV ONE (04:13)
[2016-09-04] MEDS: methylPREDNISolone SS 40 mg Vial IV SCH (04:45)
[2016-09-04] MEDS ORDERED: Dextrose 50% 50 mL Abboject IVP PRN (08:19)
[2016-09-04] MEDS ORDERED: Sodium Bicarbonate 8.4% 50mEq PFS IVP ONE (08:40)
[2016-09-04] MEDS ORDERED: EPINEPHRINE IV PRN (08:56)
[2016-09-04] MEDS ORDERED: DEXTROSE 5% IV PRN (08:56)
[2016-09-04] MEDS: Sodium Bicarbonate 8.4% 50mEq PFS IVP SCH (09:00)
--- NOTE | 2016-09-04 09:02 | Progress Notes ---
DATE: 09/03/2016 HISTORY OF PRESENT ILLNESS: The patient is very well known to me. This is an extremely obese male patient. The patient is known to have a history of multiple problems including history of end-stage renal disease, history of hypertension, and history of functional quadriparesis, also has gone through septic shock two times, has been to [facility] recently, was transferred here at [facility] ____ [facility], and the patient, about 2 weeks ago, had a septic shock, was improved, and went back to the floor, now yesterday, he became very lethargic and dropped his blood pressure requiring a lot of fluids as well as albumin and was transferred to ICU. Right now, he is on BiPAP. He is somewhat lethargic. The patient's platelets have been going down and we have problem getting the PICC line because of the platelets and we do not have the lines in the patient. The patient is still short of breath and is very weak. The patient is awake. PHYSICAL EXAMINATION: HEENT: Head examination is normal. ENT normal. LUNGS: Bilateral decreased. CARDIOVASCULAR: S1 and S2 heard. ABDOMEN: Soft. Bowel sounds are heard. EXTREMITIES: The patient has bilateral leg edema. LABORATORY DATA: His white count is 4.1, and hemoglobin is 10 and hematocrit is 30. His BUN and creatinine are high, 63 and 5.0 and his CO2 is 19. DIAGNOSES: 1. Acute septic shock. 2. Volume depletion. 3. History of end-stage renal disease. 4. History of hypertension. 5. Hypoxemia, on bilevel positive airway pressure. 6. Functional quadriparesis. 7. Septic shock. 8. Cellulitis of the legs. 9. Anemia. 10. History of gastrointestinal bleeding. 11. History of psychosis. 12. Severe thrombocytopenia. We are going to try to give platelets through the port and hold the medications for a little while and then restart them. JOB# [id number]
[2016-09-04] MEDS: Levetiracetam 500mg/100mL 500 MG/100 ML BAG IV SCH ×2 (09:08→12:15)
[2016-09-04] MEDS: Menthol/Zinc Oxide Oint 113gm Tube TP SCH (09:17)
[2016-09-04 09:32] LABS: pH 6.28 (7.35-7.45)
[2016-09-04 09:33] LABS: ABG SOURCE Arterial; HCO3 3.1 mEq/L (20.0-26.0)
[2016-09-04 09:34] LABS: ALLEN TEST Positive; FIO2 100; MECH RATE 12; MECH VT 600
[2016-09-04 09:39] LABS: HEMATOCRIT 27.3 % (39.0-49.0); HEMOGLOBIN 8.6 gm/dL (13.2-17.3); MEAN CELL VOLUME 88.3 fl (80-99); MEAN CORPUSCULAR HEMOGLOBIN 27.8 pg (26.0-30.0); MEAN CORPUSCULAR HGB CONC 31.5 pg (28.0-36.0); RED CELL DISTRIBUTION WIDTH 17.6 % (11.5-20.0)
[2016-09-04] MEDS ORDERED: Sodium Bicarbonate 8.4% 50mEq PFS IVP PRN (09:50)
[2016-09-04 09:52] LABS: PLATELET COUNT 3 Th/cmm (150-400); WHITE BLOOD COUNT 6.1 Th/cmm (4.8-10.8)
[2016-09-04 09:57] LABS: EOSINOPHIL 5 % (0-5); TOTAL CELLS COUNTED 100
[2016-09-04 09:58] LABS: CORRECTED WBC 5.6 Th/cmm; PLATELET ESTIMATE DECREASED PLATELETS (NORMAL)
[2016-09-04 09:59] LABS: BAND NEUTROPHILE 15 % (0-10); NEUTROPHILS 25 % (40-80)
--- NOTE | 2016-09-04 10:09 | Diagnostic Imaging Report ---
CHEST X-RAY: AP view INDICATION: ET tube placement COMPARISON: Chest x-ray 09/03/2016 at 7:30 AM FINDINGS: ET tube is in place with tip 3 cm above the Chel[place]. Right dialysis catheter is stable. Mild CHF is seen with right basal atelectasis versus infiltrate. Cardiomegaly is noted. IMPRESSION: Interval intubation with ET tube tip 3 cm above the Chelo. Mild CHF with right basal atelectasis versus infiltrate. Cardiomegaly.
[2016-09-04] MEDS: Therahoney Gel 42.5gm Tube TP SCH (10:53)
[2016-09-04] MEDS: Lactulose 10 Gm/15 mL 30mL UDC PO SCH (11:04)
[2016-09-04] MEDS: Lactobacillus Rhamnosus 10 Billion CFU Capsule PO SCH (11:05)
[2016-09-04] MEDS: Vancomycin HCL 250 mg /10mL UDC PO SCH (12:16)
--- NOTE | 2016-09-04 13:14 | General Progress Note ---
Subjective - Review of Systems Service Date: 09/04/16 Subjective: pt still sob pt admits to weakness still does seem to be getting better Objective - Results Result Diagrams: 09/04/16 09:35 09/03/16 05:07 Recent Labs: Laboratory Last Values WBC 6.1 Th/cmm (4.8-10.8) D 09/04/16 09:35 Corrected WBC (auto) 5.6 Th/cmm 09/04/16 09:35 RBC 3.10 Mil/cmm (4.30-5.70) L 09/04/16 09:35 Hgb 8.6 gm/dL (13.2-17.3) L 09/04/16 09:35 Hct 27.3 % (39.0-49.0) L D 09/04/16 09:35 MCV 88.3 fl (80-99) 09/04/16 09:35 MCH 27.8 pg (26.0-30.0) 09/04/16 09:35 MCHC Differential 31.5 pg (28.0-36.0) 09/04/16 09:35 RDW 17.6 % (11.5-20.0) 09/04/16 09:35 Plt Count 3 Th/cmm (150-400) L* 09/04/16 09:35 MPV 5.0 fl 09/04/16 09:35 Neutrophils % 56.8 % (40.0-80.0) 07/07/16 06:00 Band Neutrophils % 15 % (0-10) H 09/04/16 09:35 Lymphocytes % 18.4 % (20.0-50.0) L 07/07/16 06:00 Monocytes % 13.8 % (2.0-10.0) H 07/07/16 06:00 Eosinophils % 11.0 % (0.0-5.0) H 07/07/16 06:00 Basophils % 0.0 % (0.0-2.0) 07/07/16 06:00 Neutrophils (Manual) 25 % (40-80) L 09/04/16 09:35 Lymphocytes 45 % (20-50) 09/04/16 09:35 Monocytes 10 % (2-10) 09/04/16 09:35 Eosinophils 5 % (0-5) 09/04/16 09:35 Basophils 3 % (0-3) 08/04/16 08:33 Metamyelocytes 1 % (0-0) H 08/14/16 07:40 Myelocytes 1 % 07/14/16 16:00 Nucleated RBCs 9.0 % (0-0) H 09/04/16 09:35 Hypochromia 1+ 07/20/16 23:30 Platelet Estimate DECREASED PLATELETS (NORMAL) 09/04/16 09:35 Platelet Morphology (NORMAL) 09/04/16 09:35 Polychromasia 1+ 07/20/16 23:30 Anisocytosis 1+ 08/25/16 06:51 Microcytosis 1+ 07/14/16 16:00 RBC Morph Micro Appear ABNORMAL (NORMAL) 08/25/16 06:51 Plt Count TNP 09/03/16 10:40 PT 25.9 SECONDS (9.5-11.5) H 09/03/16 10:40 INR 2.38 (0.5-1.4) H 09/03/16 10:40 PTT (Actin FS) 63.0 SECONDS (26.0-38.0) H 09/03/16 10:40 Fibrinogen 204.0 mg/dL (200.0-400.0) 09/03/16 10:40 D-Dimer 4300 ng/mL (100-400) H 09/03/16 10:40 Specimen Source Arterial 09/04/16 08:50 Sample Site Right Radial 09/04/16 08:50 pH 6.28 (7.35-7.45) L* 09/04/16 08:50 pCO2 35.0 mmHg (35.0-45.0) 09/04/16 08:50 pO2 140.0 mmHg (80.0-100.0) H 09/04/16 08:50 HCO3 3.1 mEq/L (20.0-26.0) L 09/04/16 08:50 Base Excess -28.0 mEq/L (-3.0-3.0) L 09/04/16 08:50 O2 Saturation 96.0 % (92.0-100.0) 09/04/16 08:50 Estuardo Test Positive 09/04/16 08:50 Vent Rate 12 09/04/16 08:50 Inspired O2 100 09/04/16 08:50 Tidal Volume 600 09/04/16 08:50 PEEP 3 09/04/16 08:50 Pressure (ins/psv/peep) NA 09/04/16 08:50 Critical Value LZHANG 09/04/16 08:50 Sodium 136 mEq/L (136-145) 09/03/16 05:07 Potassium 3.7 mEq/L (3.5-5.1) 09/03/16 05:07 Chloride 101 mEq/L (98-107) 09/03/16 05:07 Carbon Dioxide 19.4 mEq/L (21.0-31.0) L 09/03/16 05:07 Anion Gap 19.3 (7.0-16.0) H 09/03/16 05:07 BUN 63 mg/dL (7-25) H 09/03/16 05:07 Creatinine 5.0 mg/dL (0.7-1.3) H* 09/03/16 05:07 Est GFR ( Amer) 15.9 ml/min (>90) 09/03/16 05:07 Est GFR (Non-Af Amer) 13.2 ml/min 09/03/16 05:07 BUN/Creatinine Ratio 12.6 09/03/16 05:07 Glucose 31 mg/dL (70-105) L* 09/03/16 05:07 POC Glucose 85 MG/DL (70 - 105) 09/04/16 10:47 Hemoglobin A1c % 4.8 % (4.0-6.0) 08/13/16 06:04 Whole Bld Lactic Acid 1.54 mmol/L (0.60-1.99) 08/13/16 06:04 Calcium 7.8 mg/dL (8.6-10.3) L 09/03/16 05:07 Phosphorus 5.5 mg/dL (2.5-5.0) H 07/19/16 09:50 Magnesium 1.9 mg/dL (1.9-2.7) 08/04/16 05:45 Iron 42 ug/dL (38-169) 06/28/16 04:38 TIBC 269 ug/dL (250-450) 06/28/16 04:38 Iron Saturation 16 % (15-55) 06/28/16 04:38 Unsaturated IBC 227 ug/dL (111-343) 06/28/16 04:38 Ferritin 150 ng/mL (30-400) 06/26/16 08:30 Total Bilirubin 1.8 mg/dL (0.3-1.0) H 09/02/16 19:45 Direct Bilirubin 0.70 mg/dL (0.0-0.2) H 06/28/16 04:38 GGTP 14 IU/L (0-65) 06/28/16 04:38 AST 8 U/L (13-39) L 09/02/16 19:45 ALT 4 U/L (7-52) L 09/02/16 19:45 Alkaline Phosphatase 50 U/L (34-104) 09/02/16 19:45 Ammonia 73 umol/L (16-53) H 08/12/16 05:19 Troponin I < 0.01 ng/mL (0.01-0.05) L 06/22/16 19:33 B-Natriuretic Peptide 668.0 pg/mL (5.0-100.0) H 06/22/16 19:33 Total Protein 6.0 gm/dL (6.0-8.3) 09/02/16 19:45 Albumin 2.4 gm/dL (4.2-5.5) L 09/02/16 19:45 Globulin 3.6 gm/dL 09/02/16 19:45 Albumin/Globulin Ratio 0.7 (1.0-1.8) L 09/02/16 19:45 Amylase 28 U/L (29-103) L 07/02/16 06:40 Lipase 31 U/L (11-82) 07/02/16 06:40 TSH 2.98 uIU/ml (0.34-5.60) 08/13/16 06:04 Urine Source CLEAN C 06/29/16 05:55 Urine Color YELLOW 06/29/16 05:55 Urine Clarity HAZY (CLEAR) 06/29/16 05:55 Urine pH 5.5 06/29/16 05:55 Ur Specific [place] 1.015 (1.005-1.030) 06/29/16 05:55 Urine Protein 30 mg/dL (NEGATIVE) H 06/29/16 05:55 Urine Glucose (UA) NEGATIVE mg/dL (NEGATIVE) 06/29/16 05:55 Urine Ketones NEGATIVE mg/dL (NEGATIVE) 06/29/16 05:55 Urine Blood NEGATIVE (NEGATIVE) 06/29/16 05:55 Urine Nitrate NEGATIVE (NEGATIVE) 06/29/16 05:55 Urine Bilirubin NEGATIVE (NEGATIVE) 06/29/16 05:55 Urine Urobilinogen 0.2 E.U./dL (0.2 - 1.0) 06/29/16 05:55 Ur Leukocyte Esterase TRACE (NEGATIVE) H 06/29/16 05:55 Urine RBC 0-2 /hpf (0-5) H 06/29/16 05:55 Urine WBC 6-10 /hpf (0-5) H 06/29/16 05:55 Ur Epithelial Cells FEW /lpf (FEW) 06/29/16 05:55 Urine Bacteria MANY /hpf (NONE SEEN) 06/29/16 05:55 Stool Occult Blood POSITIVE (NEGATIVE) 08/17/16 11:00 Stool Leukocyte NO WBC SEEN 08/17/16 11:00 Gentamicin Trough ug/ml (0.2-2.0) 08/12/16 05:19 Random Vancomycin 16.5 ug/mL (5.0-40.0) 09/03/16 05:07 RPR NONREACTIVE (NONREACTIVE) 06/22/16 19:33 Helicobacter pylori Ab NEGATIVE (NEGATIVE) 08/23/16 12:00 Hepatitis A IgM Ab Negative (Negative) 06/29/16 05:49 Hep Bs Antigen Negative (Negative) 06/29/16 05:49 Hep B Core IgM Ab Negative (Negative) 06/29/16 05:49 Hepatitis C Antibody >11.0 s/co ratio (0.0-0.9) H 06/29/16 05:49 Blood Type A POSITIVE 09/02/16 19:45 Antibody Screen NEGATIVE 08/10/16 21:07 Crossmatch See Detail 08/10/16 21:07 - Physical Exam Vitals and I&O: Vital Signs Temp 98.1 F 09/04/16 00:00 Pulse 63 09/04/16 08:00 Resp 20 09/04/16 07:00 BP 50/35 09/04/16 08:00 Pulse Ox 94 09/04/16 06:00 Intake & Output 09/03/16 09/04/16 09/04/16 18:59 06:59 18:59 Intake Total 2220.414 3000.920 351 Balance 2220.414 3000.920 351 Weight (lbs) 244.94 kg Intake: Intake, IV Amount 1070.957 3122.920 351 Levetiracetam 500mg/100mL 100 500 mg In 100 ml @ 400 mls/hr IV Q12HR [facility] Rx#: [id number] Norepinephrine 4 mg In 254 Dextrose 5% 250 ml @ 10 MCG/MIN 38.1 mls/hr IV TITR PRN Rx#:[id number] Norepinephrine 8 mg In 115.132 431.182 Dextrose 5% 250 ml @ 30 MCG/MIN 58.05 mls/hr IV TITR PRN Rx#:[id number] Phenylephrine HCl 10 mg 9901.904 8601.738 251 In Sodium Chloride 0.9% 250 ml @ 180 MCG/MIN 271. 08 mls/hr IV TITR [facility] Rx# :[id number] Oral 250 Blood Product 150 Other: # Bowel Movements 1 Stool Characteristics Liquid Brown Active Medications: Current Medications Acetaminophen (Tylenol) 650 mg PO Q6H PRN PRN Reason: temperature above 100F Stop: 09/28/16 16:14 Last Admin: 09/02/16 09:23 Dose: 650 mg Calamine/Phenol (Calmoseptine) 1 appl TP QID [facility] Stop: 10/14/16 12:59 Last Admin: 09/04/16 09:17 Dose: 1 appl Dextrose (D50w) 50 ml IVP PRN PRN PRN Reason: Blood sugar less than 70 Stop: 11/03/16 08:18 Last Admin: 09/04/16 08:00 Dose: 50 ml Diphenhydramine HCl (Benadryl 50 Mg/Ml) 25 mg IVP Q6HR PRN PRN Reason: itching Stop: 10/11/16 03:12 Last Admin: 08/14/16 11:25 Dose: 25 mg Docusate Sodium (Colace) 100 mg PO Q12HR [facility] Stop: 09/16/16 08:59 Last Admin: 09/04/16 11:03 Dose: Not Given Fluconazole (Diflucan) 100 mg PO DAILY [facility] Stop: 09/05/16 08:59 Last Admin: 09/04/16 11:04 Dose: Not Given Sodium Chloride (Nacl 0.9%) 1,000 mls @ 10 mls/hr IV .Q24H [facility] Stop: 10/15/16 15:01 Last Admin: 08/30/16 12:44 Dose: 10 mls/hr Norepinephrine Bitartrate 8 mg (/ Dextrose) 258 mls @ 58.05 mls/hr IV TITR PRN ; Protocol; 30 MCG/MIN PRN Reason: BP MAINTENANCE (PER PROTOCOL) Stop: 11/02/16 08:38 Last Admin: 09/04/16 04:39 Dose: 30 mcg/min, 58.05 mls/hr Phenylephrine HCl 10 mg/ (Sodium Chloride) 251 mls @ 271.08 mls/hr IV TITR [facility] ; 180 MCG/MIN PRN Reason: Protocol Stop: 11/02/16 08:59 Last Admin: 09/04/16 11:17 Dose: 180 mcg/min, 271.08 mls/hr Levetiracetam (Keppra Pb) 500 mg in 100 mls @ 400 mls/hr IV Q12HR [facility] Stop: 11/02/16 09:59 Last Admin: 09/04/16 12:15 Dose: 100 mls/hr Dextrose (Dextrose 10%) 1,000 mls @ 50 mls/hr IV .Q20H [facility] Stop: 11/02/16 11:27 Last Admin: 09/03/16 11:40 Dose: 50 mls/hr Meropenem 500 mg/ Sodium (Chloride) 100 mls @ 100 mls/hr IV Q12HR [facility] Stop: 11/03/16 20:59 Epinephrine HCl 1 mg/ Dextrose 251 mls @ 0 mls/hr IV TITR PRN; Protocol; Per Protocol PRN Reason: BP MAINTENANCE (PER PROTOCOL) Stop: 11/03/16 08:55 Sodium Bicarbonate 50 meq/ (Sodium Chloride) 1,050 mls @ 30 mls/hr IV .Q24H [facility] Stop: 11/03/16 10:44 Last Admin: 09/04/16 11:19 Dose: 30 mls/hr Lactobacillus Rhamnosus (Culturelle) 1 each PO DAILY [facility] Stop: 10/12/16 08:59 Last Admin: 09/04/16 11:05 Dose: Not Given Lactulose (Cephulac) 30 gm PO QID [facility] Stop: 10/28/16 12:59 Last Admin: 09/04/16 11:04 Dose: Not Given Lorazepam (Ativan) 2 mg IVP Q4HR PRN; Protocol PRN Reason: Agitation Stop: 11/02/16 19:54 Methylprednisolone Sodium Succinate (Solu-Medrol) 40 mg IV Q8HR [facility] Stop: 09/06/16 21:01 Last Admin: 09/04/16 04:45 Dose: 40 mg Miscellaneous (Clinical Monitoring) 1 ea [facility] DAILY PRN PRN Reason: RENAL Stop: 10/06/16 08:17 Miscellaneous (Probiotic Screen) 1 [facility] PRN PRN PRN Reason: PROTOCOL Stop: 10/11/16 14:12 Miscellaneous (Vancomycin Iv Per Pharmacy) 1 [facility] PRN PRN PRN Reason: PROTOCOL Stop: 10/22/16 11:55 Ondansetron HCl (Zofran) 4 mg IV Q6H PRN PRN Reason: Nausea / Vomiting Stop: 11/02/16 10:12 Pantoprazole Sodium (Protonix) 40 mg IVP BID [facility] Stop: 10/19/16 16:59 Last Admin: 09/04/16 10:51 Dose: 40 mg Sodium Bicarbonate (Sodium Bicarb) 50 meq IVP BID [facility] Stop: 10/13/16 16:59 Last Admin: 09/04/16 09:00 Dose: 50 meq Sodium Bicarbonate (Sodium Bicarb) 50 meq IVP PRN PRN PRN Reason: PRN Stop: 09/04/16 14:00 Sorbitol (Sorbitol) 100 ml PO DAILY [facility] Stop: 10/28/16 12:14 Last Admin: 09/04/16 11:06 Dose: Not Given Vancomycin HCl (Vancomycin Oral) 250 mg PO QID [facility] Stop: 11/01/16 16:59 Last Admin: 09/04/16 12:16 Dose: Not Given Wound Care/Dressing Products (Therahoney) 1 appl TP DAILY [facility] Stop: 10/30/16 15:59 Last Admin: 09/04/16 10:53 Dose: 1 appl - Procedures Procedures: Procedures Procedure Code Date ARTERY-VEIN NONAUTOGRAFT 59780 06/22/16 BLOOD TRANSFUSION SERVICE 78121 06/22/16 BYPASS L BRACH ART TO UP ARM VEIN W NONAUT SUB, OPEN [id number] 06/22/16 FLUOROSCOPY OF SUP VENA CAVA USING OTH CONTRAST, GUIDANCE [id number] 06/22/16 INSERTION OF INFUSION DEV INTO SUP VENA CAVA, PERC APPROACH [id number] 06/22/16 PL[address] CATHETER IN VEIN 28573 06/22/16 TRANSFUSE NONAUT RED BLOOD CELLS IN PERIPH VEIN, PERC 19641Y8 06/22/16 Assessment/Plan - Problem List Patient Problems: All Active Problems Anemia (Acute) D64.9 ESRD (end stage renal disease) (Acute) ESRD (end stage renal disease) on dialysis (Acute) N18.6, Z99.2 ESRD (end stage renal disease) on dialysis (Acute) N18.6, Z99.2 HYPOTENSION (Acute) HYPOXEMIA (Acute) MEDICAL EVALUATION PER DR FRY (Acute) funtional quadriperisis (Acute) septic shock (Acute) - Assessment Assessment: 1. Cellulitis of legs. 2. Lymphedema of legs. 3. CKD 5 on HD. 4. Morbid obesity. 5. Anemia 6. GI bleed 7. Psychosis 8. Thrombocytopenia - Plan Plan: dialysis iv antibiotics ltac eval tele status snif plan DIC panel
--- NOTE | 2016-09-04 17:37 | Progress Notes ---
DATE: 09/03/2016 PROBLEM LIST: 1. Acute on chronic respiratory failure. 2. Severe hypotension, question sepsis. 3. Significant morbid obesity with obesity hypoventilation syndrome. SYMPTOMS: The patient is quite obtunded. He is on a BiPAP. He has a periodic agonal breathing, not responding, and has BP is ranging from 70-80s, and multiple vasopressors. Saturations in mid 90s on 30% of oxygen and on BiPAP. PHYSICAL EXAMINATION: GENERAL: Not responding. NECK: Veins not visualized. CHEST: Shows diminished air entry. HEART: Regular. ABDOMEN: Soft, nontender. EXTREMITIES: Shows no peripheral edema. LABORATORY DATA: The patient's white count is 4.1, hemoglobin 10.4, platelet is 23 and patient's INR is 2.3 and ABG this morning shows ____ hypoventilation and this is on 30% of oxygen. ASSESSMENT: The patient clinically appears to have worsening with possibly septic shock, hypotension with acute respiratory failure. PLANS AND SUGGESTIONS: We will give some vasopressors, will give ____ antibiotics, steroid, intubated and see how he does and go from there. JOB# [id number]
[2016-09-04] MEDS ORDERED: Meropenem 500 mg in NS 0.9% 100 ML IV SCH (21:00)
--- NOTE | 2016-09-05 10:50 | Progress Notes ---
DATE: 09/04/2016 The patient admitted with septic shock and last night, he went into respiratory problem, was into bed until this early childhood special educator, and the patient has been gradually deteriorating. He has been on the max dose of both Levophed as well as Ehsan-Synephrine and getting antibiotics and platelets being low, has been given 2 plateletpheresis already and also had Dr. Gamez see the patient. Unfortunately, the patient ____ Code Blue and was not able to ____. I just came in and the patient went into ____ was unable to be resuscitated. The patient was pronounced ____. We spoke to the family because of his multiple condition. He was not able to survive. He did not survive. DIAGNOSES: Fatal cardiopulmonary arrest secondary to septic shock secondary to urinary tract infection, pneumonia, and bilateral leg cellulitis, history of endstage renal disease and history of ____ obesity. JOB# [id number]
--- NOTE | 2016-09-05 12:36 | Progress Notes ---
DATE: 09/04/2016 PROBLEM LIST: 1. Acute septic shock with hypotension. 2. Acute respiratory failure ____ second severe obtunded state. 3. Significant morbid obesity with obesity hypoventilation syndrome. SYMPTOMS: The patient was intubated last night, still has agonal breathing. PHYSICAL EXAMINATION: VITAL SIGNS: Blood pressure is basically 40-50s, heart rate is in 60s and saturation is 100%, appears to be okay. GENERAL: Not responding. CHEST: Shows occasional rhonchi with diminished air entry. HEART: Regular. ABDOMEN: Distended. LABORATORY DATA: White count was 6.1 and platelet count is 3. ABG shows severe metabolic acidemia with pH of ____, pO2 140 and 100%. ASSESSMENT: The patient is pre-terminal with multisystem failure. PLANS AND SUGGESTIONS: We will go ahead and continue supportive care, etc and go from there. JOB# [id number]
--- NOTE | 2016-09-05 23:55 | Progress Notes ---
DATE: 09/03/2016 PROCEDURE: Emergency intubation. INDICATION: Respiratory failure and severe hypotension. PROCEDURE NOTE: The patient is quite obtunded, hardly responding to verbal stimuli, no sedation required. The patient's bed was hyperinflated and subsequently pulled out to the edge of the bed where the patient had a pillow under the shoulder blade and subsequently size 8 blade was introduced in oral cavity and tongue was lifted. Vocal cords were visualized. Size 8 threaded with stylet under direct visualization was introduced through the ____ trachea. Position was checked by auscultation and routine post-procedure x-rays including ventilator orders were written. The patient tolerated procedure very well. JOB# [id number]
--- NOTE | 2016-10-25 10:03 | Discharge Summary ---
DATE OF DISCHARGE: 09/04/2016 EXPIRATION SUMMARY This is a very well-known patient to me. This was a 51-year-old male patient, very obese, markedly obese, with history of peripheral vascular disease, history of anemia, history of cellulitis, history of end-stage renal disease, on dialysis. The patient came from ____ [place], admitted initially at [facility] and the patient stayed there for a couple of months. The patient felt better and was stable and was discharged to [facility]. Arrangements of the dialysis were not done properly and the patient started experiencing increasing shortness of breath and leg swelling. The patient was sent to [facility]. The patient was readmitted on 06/22/2016 there with a diagnosis of lymphedema of the legs, severe obesity, and endstage renal disease, hypertension, anemia, cirrhosis, and chronic pain syndrome. The patient underwent 2-3 times septic shock because of the cellulitis and aspiration pneumonia, and the patient was admitted to the ICU a couple of times, and eventually, the patient succumbed to the septic shock and the patient on 09/04/2016 ____ cardiopulmonary arrest secondary to septic shock. JOB# [id number]
== END 2016-09-04 13:20 | disposition expired | DRG 264 ==
LOC: ER 17:50 → TELE 23:00 → MSI 06-23 21:48 → ICU 08-10 13:00 → TELE 08-24 01:26 → MSI 08-31 09:15 → ICU 09-02 13:50
PROVIDERS: ADMIT Internal Medicine; ATTEND Internal Medicine
PROC: 30233N1 Transfusion of Nonautologous Red Blood Cells into Peripheral Vein, Percutaneous Approach (ICD-10-PCS; 2016-06-23)
PROC: 02HV33Z Insertion of Infusion Device into Superior Vena Cava, Percutaneous Approach (ICD-10-PCS; principal; 2016-06-29)
PROC: B5181ZA Fluoroscopy of Superior Vena Cava using Low Osmolar Contrast, Guidance (ICD-10-PCS; 2016-06-29)
PROC: 03180KD Bypass Left Brachial Artery to Upper Arm Vein with Nonautologous Tissue Substitute, Open Approach (ICD-10-PCS; 2016-07-05)
PROC: 02HV33Z Insertion of Infusion Device into Superior Vena Cava, Percutaneous Approach (ICD-10-PCS; 2016-08-14)
PROC: B5181ZA Fluoroscopy of Superior Vena Cava using Low Osmolar Contrast, Guidance (ICD-10-PCS; 2016-08-14)
PROC: 0DB98ZX Excision of Duodenum, Via Natural or Artificial Opening Endoscopic, Diagnostic (ICD-10-PCS; 2016-08-23)
PROC: 0DB58ZX Excision of Esophagus, Via Natural or Artificial Opening Endoscopic, Diagnostic (ICD-10-PCS; 2016-08-23)
PROC: 0DB68ZX Excision of Stomach, Via Natural or Artificial Opening Endoscopic, Diagnostic (ICD-10-PCS; 2016-08-23)
PROC: 5A1D60Z (ICD-10-PCS; 2016-08-28)
PROC: 30233R1 Transfusion of Nonautologous Platelets into Peripheral Vein, Percutaneous Approach (ICD-10-PCS; 2016-09-03)
PROC: 0BH17EZ Insertion of Endotracheal Airway into Trachea, Via Natural or Artificial Opening (ICD-10-PCS; 2016-09-03)
PROC: 5A1935Z Respiratory Ventilation, Less than 24 Consecutive Hours (ICD-10-PCS; 2016-09-03)
DX: T80.219A Unspecified infection due to central venous catheter, initial encounter (principal); A41.02 Sepsis due to Methicillin resistant Staphylococcus aureus; R65.21 Severe sepsis with septic shock; J96.21 Acute and chronic respiratory failure with hypoxia; D65 Disseminated intravascular coagulation [defibrination syndrome]; J18.9 Pneumonia, unspecified organism; R53.2 Functional quadriplegia; E43 Unspecified severe protein-calorie malnutrition; N18.6 End stage renal disease; I13.2 Hypertensive heart and chronic kidney disease with heart failure and with stage 5 chronic kidney disease, or end stage renal disease; K92.2 Gastrointestinal hemorrhage, unspecified; L03.116 Cellulitis of left lower limb; E66.2 Morbid (severe) obesity with alveolar hypoventilation; L03.115 Cellulitis of right lower limb; Z68.44 Body mass index [BMI] 60.0-69.9, adult; I47.1 Supraventricular tachycardia; N17.9 Acute kidney failure, unspecified; A04.7 Enterocolitis due to Clostridium difficile; I50.30 Unspecified diastolic (congestive) heart failure; B37.81 Candidal esophagitis; N39.0 Urinary tract infection, site not specified; I46.9 Cardiac arrest, cause unspecified; I89.0 Lymphedema, not elsewhere classified; K74.60 Unspecified cirrhosis of liver; G89.4 Chronic pain syndrome; E03.9 Hypothyroidism, unspecified; B19.20 Unspecified viral hepatitis C without hepatic coma; M19.90 Unspecified osteoarthritis, unspecified site; K72.90 Hepatic failure, unspecified without coma; D63.8 Anemia in other chronic diseases classified elsewhere; I87.2 Venous insufficiency (chronic) (peripheral); I73.9 Peripheral vascular disease, unspecified; F29 Unspecified psychosis not due to a substance or known physiological condition; F25.9 Schizoaffective disorder, unspecified; F41.9 Anxiety disorder, unspecified; E87.6 Hypokalemia; E55.9 Vitamin D deficiency, unspecified; E83.42 Hypomagnesemia; I48.0 Paroxysmal atrial fibrillation; D50.9 Iron deficiency anemia, unspecified; R56.9 Unspecified convulsions; K29.70 Gastritis, unspecified, without bleeding; Z91.048 Other nonmedicinal substance allergy status; Z79.899 Other long term (current) drug therapy; Z99.2 Dependence on renal dialysis
CPT/HCPCS: 36415-UA; 36600-90; 71010-TC; 74000-TC; 76000-TC; 76700-TC; 76857-TC; 80048-TC; 80053-TC; 80074-90; 80076-TC; 80170-TC; 80202-TC; 81001-TC; 82140-TC; 82150-TC; 82270-TC; 82728-90; 82803-TC; 82948-90; 82977-90; 83036-90; 83540-90; 83550-90; 83605; 83690-TC; 83735-TC; 83880-TC; 84100-TC; 84132-TC; 84443-TC; 84484-TC; 85007-TC; 85014-TC; 85018-TC; 85025-TC; 85027-TC; 85379-TC; 85384-TC; 85610-TC; 85730-TC; 86592-TC; 86850-TC; 86900-TC; 86901-TC; 86922-TC; 87070-90; 87230-TC; 87338-TC; 89055-TC; 90799; 90937; 92950; 93005; 93970-TC-50; 94002; 94003; 94660; 94760; 97530; C1751; C9113; J0171; J0690; J0692; J0696; J0885; J1200; J1265; J1580; J1630; J1644; J1720; J1885; J2001; J2060; J2185; J2250; J2270; J2370; J2543; J2704; J2920; J3370; J3475; J3480; J7030; J7040; J7799; P9016; P9035; P9046; P9047; X3904; X6452; X6494; X7704; Z7610